=== PATIENT | female | born 1940 | race Caucasian/White ===

== ENCOUNTER 2016-09-24 21:15 | Inpatient (IN) | payer MEDICARE ==
[2016-09-24] MEDS ORDERED: Diltiazem IV* 5 MG/ML 5 ML VIAL (for loading dose/IV Push) (25 MG) IV PUSH ONE (21:34)
--- NOTE | 2016-09-24 22:02 | RAD ---
INDICATION: Chest pain COMPARISON: March 29, 2016 TECHNIQUE: PA and lateral views were obtained. FINDINGS: Bones/Soft Tissues: There are no acute bony findings. There is prior thoracolumbar fusion Cardiomediastinal: The cardiomediastinal silhouette is normal. Lungs: There is mild left basilar scarring or atelectasis. Pleura: There are no pleural effusions. Other: None IMPRESSION: NO ACTIVE DISEASE. NO INTERVAL CHANGES.
[2016-09-24 22:24] LABS: Hematocrit 31 % (35-47); Hemoglobin 10.4 g/dl (12.0-16.0); Mean Corpuscular HGB Conc 33 g/dl (31-36); Mean Corpuscular Hemoglobin 32 pg (27-31); Mean Corpuscular Volume 95 fL (80-97); Mean Platelet Volume 8 um3 (7.4-10.4); Red Blood Count 3.29 10^6/ul (4.0-5.4); Red Cell Distribution Width 12 % (10.5-15); White Blood Count 8.4 10^3/ul (3.5-10.8)
--- NOTE | 2016-09-24 22:31 | ED ---
Timmy Heaton Adam, scribed for Adalid Gallardo MD on 09/24/16 at 2142 . Headache - HPI Summary HPI Summary: Pt is a 75 year old female presenting with a SANZ. She states that this is the 4th SANZ she has had since 19:00 tonight. The pain radiates to her chest, left arm , and mouth. She has been having SANZ's like this for 9-10 months and states that she has had multiple X-Rays and CT's done. Pt states that her BP was 185/125 at home before coming to the ED. PMHx of thyroid disease and asthma. - History Of Current Complaint Chief Complaint: EDChestPainROMI Stated Complaint: HEADACHE/CHEST PAIN/LT ARM PAIN Time Seen by Provider: 09/24/16 21:30 Hx Obtained From: Patient Onset/Duration: Sudden Onset, Started hours ago, Still Present Initially Headache Was: Moderate Currently Pain Is: Moderate Timing: Intermittent, Lasting: - Minutes Location of Headache: Diffuse Radiates to: Chest, left arm, mouth Aggravating Factor: Nothing Allevating Factors: Nothing Related History: Similar Episode/DX As: - Headaches like this for the past 9-10 months - Allergies/Home Medications Allergies/Adverse Reactions: Allergies Allergy/AdvReac Type Severity Reaction Status Date / Time Tiagabine [From Gabitril] Allergy Mild Rash Verified 06/24/16 10:35 Amitriptyline Allergy Unknown Unknown Verified 06/24/16 10:35 Reaction Details Atorvastatin [From Lipitor] Allergy Unknown Unknown Verified 06/24/16 10:35 Reaction Details Iodinated Contrast Media Allergy Unknown Unknown Verified 06/24/16 10:35 Reaction Details Misoprostol [From Cytotec] Allergy Unknown Unknown Verified 06/24/16 10:35 Reaction Details Theophylline [From Uniphyl] Allergy Unknown Unknown Verified 06/24/16 10:35 Reaction Details Tizanidine [From Zanaflex] Allergy Unknown Unknown Verified 06/24/16 10:35 Reaction Details fentanyl patch Allergy Unknown Dizziness Uncoded 06/24/16 10:35 PMH/Surg Hx/FS Hx/Imm Hx Endocrine/Hematology History: Reports: Hx Thyroid Disease Denies: Hx Diabetes Cardiovascular History: Denies: Hx Hypertension, Hx Pacemaker/ICD Respiratory History: Reports: Hx Asthma History: Denies: Hx Renal Disease Sensory History: Reports: Hx Hearing Aid - Rt EAR Psychiatric History: Denies: Hx Panic Disorder - Surgical History Surgery Procedure, Year, and Place: TSP -LSP [place] RODS/SCREWS- 2010 - - TOTAL OF 5 SURGERIES LAST ONE 2010 Xs 2. BILATERAL HIP REPLACEMENT . TARSAL TUNNEL - Lt WART -REMOVED FROM EYELID. CARPAL TUNNEL - FLORIAN Lt KNEE -2 & Rt KNEE - 3 TIMES - ARTHROSCOPIC. CHOLECYSTECTOMY TONSILECTOMY- as child. HERNIA. APPENDECTOMY. FLORIAN BREAST REDUCTION. Lt THUMB - GANGLION CYST. Rt ARM - "LUMP" REMOVED- Infectious Disease History: No Infectious Disease History: Denies: Traveled Outside the [place] in Last 30 Days - Family History Known Family History: Positive: Cardiac Disease - Father used to use NTG. 3 brothers have had CABG. 4th had CVA and [place]., Diabetes - Social History Occupation: Retired Lives: With Family - Alcohol Use: Occasionally Hx Substance Use: No Substance Use Type: Reports: None Hx Tobacco Use: No Smoking Status (MU): Never Smoked Tobacco Review of Systems Positive: Chest Pain Positive: Myalgia - Left arm, mouth Positive: Headache All Other Systems Reviewed And Are Negative: Yes Physical Exam Triage Information Reviewed: Yes Vital Signs On Initial Exam: Initial Vitals Temp Pulse Resp BP Pulse Ox 98.5 F 65 16 177/97 100 09/24/16 21:17 09/24/16 21:17 09/24/16 21:17 09/24/16 21:17 09/24/16 21:17 Vital Signs Reviewed: Yes Appearance: Positive: Well-Appearing, Pain Distress - mildly uncomfortable Skin: Positive: Warm Head/Face: Positive: Normal Head/Face Inspection Eyes: Positive: CECIL ENT: Positive: Hearing grossly normal Neck: Positive: Supple Respiratory/Lung Sounds: Positive: Clear to Auscultation, Breath Sounds Present Cardiovascular: Positive: IRR, Tachycardia Abdomen Description: Positive: Nontender, Soft Bowel Sounds: Positive: Present Musculoskeletal: Positive: Strength/ROM Intact Neurological: Positive: Sensory/Motor Intact, Alert, Oriented to Person Place, Time Psychiatric: Positive: Affect/Mood Appropriate Diagnostics - Vital Signs Vital Signs Temp Pulse Resp BP Pulse Ox 09/24/16 21:17 98.5 F 65 16 177/97 100 - Laboratory Lab Results: Lab Results 09/24/16 Range/Units 22:16 WBC 8.4 (3.5-10.8) 10^3/ul RBC 3.29 L (4.0-5.4) 10^6/ul Hgb 10.4 L (12.0-16.0) g/dl Hct 31 L (35-47) % MCV 95 (80-97) fL MCH 32 H (27-31) pg MCHC 33 (31-36) g/dl RDW 12 (10.5-15) % Plt Count 199 (150-450) 10^3/ul MPV 8 (7.4-10.4) um3 Neut % (Auto) 69.3 (38-83) % Lymph % (Auto) 23.2 L (25-47) % [place] % (Auto) 4.7 (1-9) % Eos % (Auto) 2.2 (0-6) % Baso % (Auto) 0.6 (0-2) % Absolute Neuts (auto) 5.8 (1.5-7.7) 10^3/ul Absolute Lymphs (auto) 2.0 (1.0-4.8) 10^3/ul Absolute Monos (auto) 0.4 (0-0.8) 10^3/ul Absolute Eos (auto) 0.2 (0-0.6) 10^3/ul Absolute Basos (auto) 0.1 (0-0.2) 10^3/ul Absolute Nucleated RBC 0 10^3/ul Nucleated RBC % 0 Result Diagrams: 09/24/16 22:16 09/25/16 00:21 Lab Statement: Any lab studies that have been ordered have been reviewed, and results considered in the medical decision making process. - Radiology CXR Radiology Interpretation Completed By: Radiologist - IMPRESSION: NO ACTIVE DISEASE. NO INTERVAL CHANGES. - EKG 21:23 Cardiac Rate: Tachycardia - 151 BPM EKG Rhythm: Atrial Fibrillation EKG Interpretation: Rapid A Fib - Additional Comments Diagnostic Additional Comments: Troponin I - 0.05 D-Dimer - 257 Lactic Acid - 2.2 Re-Evaluation - Re-Evaluation First Eval Change: Improved Headache Course/Dx - Diagnoses Provider Diagnoses: New onset atrial fibrillation - Physician Notifications Instructed by Provider To: Admit As Inpatient - Critical Care Time Critical Care Time: 30-74 min Discharge - Discharge Plan Condition: Fair Disposition: ADMITTED TO [facility] documentation as recorded by the Timmy schaffer Adam accurately reflects the service I personally performed and the decisions made by me, Adalid Gallardo MD.
[2016-09-24 22:40] LABS: ALT 13 U/L (7-52); Albumin 3.8 g/dL (3.2-5.2); Alkaline Phosphatase 91 U/L (34-104); BUN/Creatinine Ratio 27.7 (8-20); Blood Urea Nitrogen 31 mg/dL (6-24); CO2 Carbon Dioxide 27 mmol/L (22-32); Calcium 9.6 mg/dL (8.6-10.3); Chloride 101 mmol/L (101-111); EGFR African American 60.8 (>60); EGFR Non-African American 47.3 (>60); Globulin 3.5 g/dL (2-4); Glucose 192 mg/dL (70-100); Sodium 136 mmol/L (133-145); Total Protein 7.3 g/dL (6.4-8.9)
[2016-09-24] MEDS ORDERED: Diltiazem DRIP* 100 MG/100 ML ADDV.BAG IVPB ONE (22:43)
[2016-09-24 22:44] LABS: Troponin I 0.05 ng/mL (<0.04)
[2016-09-24 22:55] LABS: TSH (Thyroid Stimulating Horm) 0.54 mcIU/mL (0.34-5.60)
[2016-09-25] MEDS ORDERED: Ondansetron INJ* 2 MG/ML VIAL IV PRN (00:19)
[2016-09-25] MEDS ORDERED: Al Hydrox/Mg Hydrox/Simet LIQ* 30 ML UDC PO PRN (00:19)
[2016-09-25] MEDS ORDERED: Acetaminophen TAB* 325 MG PO PRN (00:19)
[2016-09-25] MEDS ORDERED: Diltiazem DRIP* 100 MG/100 ML ADDV.BAG IVPB ONE (00:23)
[2016-09-25 00:56] LABS: Magnesium 1.9 mg/dL (1.9-2.7)
[2016-09-25] MEDS ORDERED: NS 0.9% 500 ML BAG* 500 ML IV ONE (01:00)
[2016-09-25] MEDS: HYDROcodone/ACETAMIN 5-325 MG* 1 TAB PO PRN ×5 (01:03→20:02)
[2016-09-25] MEDS ORDERED: Morphine INJ* 2 MG/ML 1 ML SYRINGE IV PRN (01:47)
[2016-09-25] MEDS ORDERED: HYDROmorphone* 1 MG/ML 1 ML SYR ONE ×2 (01:57→03:10)
[2016-09-25] MEDS: HYDROmorphone* 1 MG/ML 1 ML SYR IV SLOW PU PRN (03:15)
[2016-09-25] MEDS: Apixaban* 5 MG TAB PO SCH ×3 (03:31→19:57)
[2016-09-25] MEDS ORDERED: Diltiazem DRIP* 100 MG/100 ML ADDV.BAG IVPB SCH ×2 (05:00→06:25)
--- NOTE | 2016-09-25 05:23 | HP ---
HISTORY AND PHYSICAL: DATE OF ADMISSION: 09/25/16 TIME OF EVALUATION: 0000. PRIMARY CARE PHYSICIAN: Manas Villeda MD CHIEF COMPLAINT: Chest pain and headache. HISTORY OF PRESENT ILLNESS: This is a 75-year-old female with past medical history of asthma, chronic lymphedema, who has had recurring episodes of headache, chest pain, left arm pain, jaw pain for the past 10 months. The patient states she has seen several physicians including her primary, geomorphologist, neurologist, and Hematology/Oncology. She states she has had intense and a very involved workup including labs and imaging with no diagnosis. She states this started 10 months ago with a significant headache. She gets chest pain, left arm pain, and jaw pain, so bad that she has to take out her teeth. It usually last for about 10 to 15 minutes. There is no pattern to it. She could have them several times a day or go a day without them. Often, when she sits up and she massages her chest and arms, it will eventually resolve. Today, she had several episodes and they seemed to last longer and they were more intense in severity. On arrival to the emergency room , she was found to be in rapid atrial fibrillation. The patient is denying any chest pain at this time. She states she has a mild headache. She denies any fever or upper respiratory symptoms. No palpitations, no nausea, vomiting, diarrhea. She states she has dyspnea on exertion. She states she recently had a sleep study where she was diagnosed with mild obstructive sleep apnea and placed on oxygen at bedtime. She is followed by Dr. Price in [place], her geomorphologist, and she had a stress test, she states, last year. No history of any stent placement. Otherwise, review of systems is negative. In the emergency the patient had labs, imaging. She was given a diltiazem bolus of 20 mg and started on a drip of 10 mg an hour and was referred to the hospitalist service for further evaluation. PAST MEDICAL HISTORY: Constipation, asthma, restless legs syndrome, essential tremor, chronic pain, seasonal allergies, GERD, hypothyroidism, chronic lymphedema, and now being worked up for these episodes of headache, chest pain, left arm pain, and teeth pain. MEDICATIONS: 1. The patient alternates between Lasix 40 mg daily for a week with torsemide 60 mg daily for a week. 2. Potassium 20 mEq daily. 3. Levothyroxine 137 mcg daily. 4. Singulair 10 mg daily. 5. Omeprazole 40 mg p.o. b.i.d. 6. Levocetirizine 5 mg daily. 7. Hydrocodone/Tylenol 10/325 every 4 hours as needed for pain. 8. Primidone 100 mg in the evening. 9. Mirapex 2 mg in the evening. 10. Venlafaxine 37.5 mg 3 tabs daily in the evening. 11. Multivitamin, calcium, magnesium daily. 12. Vitamin B12 daily. 13. One senna p.o. b.i.d. 14. Vitamin D in the morning. 15. Colace 1 tab p.o. b.i.d. 16. Advair 500/50 one puff b.i.d. 17. Nasal spray b.i.d. 18. Albuterol inhaler nebulizer as needed for shortness of breath. ALLERGIES: TIAGABINE, AMITRIPTYLINE, ATORVASTATIN, CONTRAST, MISOPROSTOL, THEOPHYLLINE, TIZANIDINE, and FENTANYL PATCH. FAMILY HISTORY: Mother at age 84 from heart failure. Father at age 86 from coronary disease. Three of her four brothers from coronary disease bypass in their 60s and 70s; however, one brother had bypass and is alive. SOCIAL HISTORY: The patient lives at home with her , Herminio, who is the healthcare proxy. No history of tobacco use. Rare alcohol use. No illicit drug use. CODE STATUS: Full code. REVIEW OF SYSTEMS: As mentioned in the HPI. PHYSICAL EXAMINATION GENERAL: No acute distress. Resting comfortably with her at the bedside. VITAL SIGNS: Temp 98.5, pulse rate 122, respiratory rate 12, oxygen saturation 95% on room air, blood pressure 148/73. HEENT: Pupils equal and reactive, anicteric. Head: Normocephalic. Oropharynx : Mucous membranes are moist. No erythema or exudate. NECK: Supple. No lymphadenopathy. RESPIRATORY: Diminished breath sounds. No wheezes, rhonchi, or rales. CARDIAC: Rapid, irregularly irregular rate and rhythm. ABDOMEN: Soft, nontender, nondistended. EXTREMITIES: +1 pretibial pitting edema. +1 DPs. NEUROLOGIC: Alert and oriented x3. No focal neurologic deficits. DIAGNOSTIC STUDIES/LAB DATA: White count 8.4, hemoglobin 10.4, hematocrit 31, platelets 199. INR is 0.95. Sodium 136, potassium pending, chloride 101, bicarb 27, BUN 31, creatinine 1.12, glucose 192, lactic acid 2.2. Troponin 0.05. TSH 0.54. Chest x-ray shows no active disease. No interval changes. EKG shows rapid atrial fibrillation with rate of 151. ASSESSMENT AND PLAN: This is a 75-year-old female with past medical history of obstructive sleep apnea, asthma, chronic lymphedema, who presents to the emergency room with recurrent episodes of headache, chest pain, left arm pain with worsening in her symptoms this evening, found to be in atrial fibrillation. Rapid atrial fibrillation. Assessment: Unclear of the etiology behind her rapid atrial fibrillation. She does have obstructive sleep apnea, but she is on oxygen at bedtime. She is morbidly obese. It is unclear if these symptomatic episodes are related to rapid atrial fibrillation, it is possible though she has had an extensive workup with no known etiology. She said she had a chest stress last year that was unremarkable. She has no chest pain at this time. Plan: We will admit her to the ICU, increase her diltiazem to 15 mg. Follow up on her potassium, magnesium. We will trend her troponins. We will keep her NPO for possible cardioversion. Replete electrolytes if they are abnormal. We will start her on Eliquis for now 5 mg p.o. b.i.d. and follow up with Cardiology in the morning. CHRONIC MEDICAL PROBLEMS: 1. Chronic lymphedema. In the setting of NPO, we will hold her Lasix and torsemide at this time. 2. Hypothyroidism. Resume her Synthroid of 137 mcg. 3. Asthma. Continue her Singulair, Advair, and albuterol as needed. 4. GERD. Continue omeprazole p.o. b.i.d. 5. Chronic pain. Continue her [place] as needed. 6. Tremors and and restless legs. With her elevated creatinine, I would hold the primidone as it does interact with Eliquis and decrease her Mirapex to 1 mg. 7. Elevated creatinine, is 1.12. Appears it has been elevated since 2015. Possibly CKD, unclear of the etiology behind her CKD. We will get a urine and FENa at this time. 8. FEN. We will keep her NPO for now. 9. DVT. The patient was started on Eliquis. 10. Code status. Full code. PATIENT TIME: Greater than 60 minutes was spent during the history and physical , more than half the time was spent in direct patient contact. CC: Manas Villeda MD* [id number]/CPS #: [id number] MTDD
[2016-09-25] MEDS: Levothyroxine TAB* 137 MCG TAB PO SCH (05:37)
[2016-09-25 06:03] LABS: Hematocrit 28 % (35-47); Hemoglobin 9.4 g/dl (12.0-16.0); Mean Corpuscular HGB Conc 33 g/dl (31-36); Mean Corpuscular Hemoglobin 32 pg (27-31); Mean Corpuscular Volume 95 fL (80-97); Mean Platelet Volume 8 um3 (7.4-10.4); Red Blood Count 2.98 10^6/ul (4.0-5.4); Red Cell Distribution Width 12 % (10.5-15)
[2016-09-25 06:18] LABS: BUN/Creatinine Ratio 29.4 (8-20); EGFR African American 62.8 (>60); EGFR Non-African American 48.8 (>60); Potassium 3.9 mmol/L (3.5-5.0)
[2016-09-25 06:22] LABS: Troponin I 0.58 ng/mL (<0.04)
[2016-09-25] MEDS ORDERED: Pramipexole TAB* 0.5 MG PO SCH ×2 (09:00)
[2016-09-25] MEDS: Omeprazole CAP* 20 MG PO SCH ×2 (09:44→19:57)
[2016-09-25] MEDS: Docusate CAP* 100 MG PO SCH ×2 (09:44→19:57)
[2016-09-25] MEDS: Senna TAB PO SCH ×2 (09:44→19:59)
[2016-09-25] MEDS: Mometasone/Formoter 200/5 MDI INH SCH ×2 (09:50→20:07)
[2016-09-25 10:11] LABS: HDL Cholesterol 53.6 mg/dL
[2016-09-25] MEDS ORDERED: Midazolam* 1 MG/ML 5 ML VIAL (5 MG) ONE (11:09)
[2016-09-25] MEDS ORDERED: fentaNYL* 50 MCG/ML 2 ML VIAL (100 MCG VIAL) ONE (11:09)
[2016-09-25] MEDS ORDERED: Naloxone* 0.4 MG/ML 1 ML VIAL ONE (11:09)
[2016-09-25] MEDS ORDERED: Flumazenil* 0.1 MG/ML 5 ML MDV ONE (11:09)
[2016-09-25] MEDS ORDERED: Lidocaine 2% VISCOUS* 15 ML UDC ONE (11:09)
[2016-09-25] MEDS ORDERED: Ondansetron INJ* 2 MG/ML VIAL ONE (11:33)
[2016-09-25] MEDS ORDERED: Diltiazem CD CAP* 120 MG PO SCH (14:00)
--- NOTE | 2016-09-25 14:26 | TEE ---
Patient: [facility] Rec#: [id number] : 1940 Date: 09/25/2016 Age: 75y Height: 155 cm / 61.0 in Weight: 126 kg / 277.7 lbs Sex: F BSA: 2.17 Room#: 434 Type: Inpatient Referring: Amber Kaminski MD Performing: Amber Kaminski MD Reading: Amber Kaminski MD Senior Science Consultant: Heike Lua RDCS Nurse: Lashawn Colon RN CC: Manas Villeda MD Transesophageal Echocardiogram Indication: A-fib BP: 124/44 HR: 70 Rhythm: A-Fib Findings History: Asthma,chronic lymphedema,CP,GERD,hypothyroidism,VALENTIN with nocturnal oxygen. Technical Comments: The study quality is good. Left Ventricle: The left ventricular chamber size is normal. Global left ventricular wall motion and contractility are within normal limits. The estimated ejection fraction is 50-55%. The assessment of diastolic function is non-diagnostic. Left Atrium: The left atrial chamber size is normal. There is no thrombus visualized in the left atrial appendage. Right Ventricle: The right ventricular cavity size is normal. The right ventricular global systolic function is normal. Right Atrium: The right atrial cavity size is normal. The interatrial septum appears lipomatous. There is no patent foramen ovale visualized. A patent foramen ovale is not demonstrated with color Doppler and agitated contrast. Aortic Valve: The aortic valve is trileaflet. Mild aortic cusp sclerosis is present. There is no evidence of aortic regurgitation. There is no evidence of aortic stenosis. Mitral Valve: The mitral valve leaflets are mildly thickened. There is mild mitral regurgitation. There is no evidence of mitral stenosis. Tricuspid Valve: The tricuspid valve leaflets are normal. There is trace to mild tricuspid regurgitation. There is no tricuspid stenosis. Pulmonic Valve: The pulmonic valve appears normal. There is no evidence of pulmonic regurgitation. There is no pulmonic stenosis. Pericardium: The pericardium appears normal. Aorta: There is no dilatation of the ascending aorta. There is no dilation of the aortic root. There is plaque visualized in the descending aorta. This was noted in the descending thoracic aorta. Pulmonary Artery: The main pulmonary artery appears normal. Venous: The bicaval view was obtained and appears normal. The pulmonary veins appear normal in size. 3 out of 4 seen. The flow pattern of the pulmonary veins appear normal. DANIEL Procedures: History and physical as well as labs were reviewed. The patient was in a fasting state. Risks and benefits of the procedure, including alternatives, were discussed and written informed consent was obtained. The patient and/or their health care livestock sales representative expressed understanding of the procedure, risks and benefits. Baseline and continuous monitoring of blood pressure, heart rate, pulse oximetry and heart rhythm was performed throughout the procedure. The appropriate time-out procedure was performed as per [facility] protocol. The patient was placed in the left lateral decubitus position. The patient's posterior pharynx was anesthetized with 20ml of 2% viscous lidocaine. The patient received IV Midazolam with a total dose of The patient received IV Fentanyl with a total dose of An oral bite block was inserted for protection of oral dentition. The multiplane transesophageal echocardiogram probe was inserted through the posterior oropharynx and advanced into the esophagus without difficulty. Multiple 2D images were obtained of the heart and its related structures. Color flow Doppler was used for evaluation. Spectral Doppler was also used. The atrial septum was interrogated with color flow Doppler. At the conclusion of the procedure the probe was removed with continuous suction without complications. The patient tolerated the procedure with no apparent complications. Conclusions Global left ventricular wall motion and contractility are within normal limits. The estimated ejection fraction is 50-55%. The right ventricular global systolic function is normal. The aortic valve is trileaflet with mild sclerosis. The mitral valve leaflets are mildly thickened with mild mitral regurgitation. There is no thrombus visualized in the left atrial appendage. There is no patent foramen ovale visualized. There is plaque visualized in the descending aorta. No prior study available to compare. Measurements Name Value Normal Range Aortic Annulus 2.3 cm (1.4 - 2.6) Ao root diameter (2D) 3.3 cm (2.1 - 3.5) Ascending Ao 3.2 cm (2.1 - 3.4) Name Value Normal Range MV E-wave Vmax 0.7 m/sec - MV deceleration time 246 msec -
--- NOTE | 2016-09-25 16:02 | PN ---
Subjective Date of Service: 09/25/16 Interval History: HOSPITALIST PROGRESS NOTE Patient seen and examined at bedside. She feels better now after cardioversion. Denies CP, palpitations, or dyspnea. Family History: Unchanged from Admission Social History: Unchanged from Admission Past Medical History: Unchanged from Admission Objective Active Medications: Acetaminophen (Tylenol Tab*) 650 mg PO Q4H PRN PRN Reason: FEVER/PAIN Hydrocodone Bitart/Acetaminophen ([place] 5-325 Tab*) 2 tab PO Q4H PRN PRN Reason: PAIN Last Admin: 09/25/16 15:18 Dose: 2 tab Al Hydrox/Mg Hydrox/Simethicone (Maalox Plus*) 30 ml PO Q6H PRN PRN Reason: INDIGESTION Albuterol (Ventolin Hfa Inhaler*) 2 puff INH Q4H PRN PRN Reason: SOB/WHEEZING Apixaban (Eliquis*) 5 mg PO BID [facility] Last Admin: 09/25/16 09:44 Dose: 5 mg Atorvastatin Calcium (Lipitor*) 40 mg PO 2100 [facility] Diltiazem HCl (Cardizem Cd Cap*) 120 mg PO DAILY [facility] Stop: 09/25/16 23:59 Last Admin: 09/25/16 14:27 Dose: 120 mg Docusate Sodium (Colace Cap*) 100 mg PO BID [facility] Last Admin: 09/25/16 09:44 Dose: 100 mg Hydromorphone HCl (Dilaudid Iv*) 0.5 mg IV SLOW PU Q4H PRN PRN Reason: PAIN Last Admin: 09/25/16 03:15 Dose: 0.5 mg Levothyroxine Sodium (Synthroid Tab*) 137 mcg PO DAILY@0600 [facility] Last Admin: 09/25/16 05:37 Dose: 137 mcg Mometasone Furoate/Formoterol Fumar (Dulera 200/5 Mdi*) 1 puff INH BID [facility] Last Admin: 09/25/16 09:50 Dose: 1 puff Montelukast Sodium (Singulair Tab*) 10 mg PO BEDTIME [facility] Omeprazole (Prilosec Cap*) 40 mg PO BID [facility] Last Admin: 09/25/16 09:44 Dose: 40 mg Ondansetron HCl (Zofran Inj*) 4 mg IV Q4H PRN PRN Reason: NAUSEA/VOMITING Pramipexole Dihydrochloride (Mirapex Tab*) 1 mg PO BEDTIME [facility] Senna (Senokot Tab*) 1 tab PO BID [facility] Last Admin: 09/25/16 09:44 Dose: 1 tab Venlafaxine HCl (Effexor Xr Cap*) 112.5 mg PO 2100 [facility] Vital Signs 09/25/16 09/25/16 09/25/16 13:26 14:00 15:00 Temperature 97.3 F Pulse Rate 77 Respiratory 16 17 21 Rate Blood Pressure 153/57 151/85 127/63 (mmHg) O2 Sat by Pulse 95 Oximetry Oxygen Devices in Use Now: None Appearance: Pleasant elderly lady lying in bed in NAD. Eyes: No Scleral Icterus Ears/Nose/Mouth/Throat: Mucous Membranes Moist Neck: Trachea Midline Respiratory: Symmetrical Chest Expansion and Respiratory Effort, Clear to Auscultation Cardiovascular: RRR - Normal S1 and S2 Abdominal: NL Sounds; No Tenderness; No Distention Neurological: Alert and Oriented x 3, NL Muscle Strength and Tone Lines/Tubes/Other Access: Clean, Dry and Intact Peripheral IV Nutrition: Taking PO's Result Diagrams: 09/25/16 05:41 09/25/16 05:41 Assess/Plan/Problems-Billing Assessment: Mrs. Martin is a 75yo F with PMH of chronic constipation, asthma, restless leg syndrome, essential tremor, chronic pain, GERD, hypothyroidism, chronic lymphedema, who presented to ED with c/o CP, found to be in Afib. - Patient Problems (1) Atrial fibrillation Comment: - S/p cardioversion. - D/w Dr. Kaminski - recommended Cardizem CD and Eliquis. - Continue to monitor on Telemetry. (2) Chest pain Comment: - Troponin elevation likely secondary to Afib, but patient has risk factors for CAD. - Cardiology recommended stress test. (3) Obstructive sleep apnea Comment: - Patient wears supplemental O2 overnight, but no CPAP. - Check overnight oximetry on her usual amount of O2, as hypoxia may be driving her episode of Afib. (4) HLD (hyperlipidemia) Comment: - LDL>170 - states she cannot tolerate statins. (5) Hypothyroidism Comment: - TSH 0.54 - continue Levothyroxine. (6) DVT prophylaxis Comment: - Eliquis. (7) Full code status Status and Disposition: Inpatient.
[2016-09-25] MEDS ORDERED: Potassium Chlor TAB* 20 MEQ TAB.ER PO ONE (18:24)
[2016-09-25] MEDS ORDERED: Magnesium Sulfate 2 GM IV* 2 GM/50 ML BAG IVPB ONE (18:24)
--- NOTE | 2016-09-25 19:11 | PN ---
Hospitalist Progress Note HOSPITALIST ADDENDUM Around 6PM patient complained of jaw and left shoulder pain with headache. Telemetry showed irregular rhythm and EKG confirms A. flutter. D/w Dr. Kaminski - pili [place].
[2016-09-25] MEDS: Dronedarone TAB* 400 MG PO SCH (19:26)
[2016-09-25] MEDS: Montelukast Sodium TAB* 10 MG PO SCH (19:57)
[2016-09-25] MEDS: Pramipexole TAB* 0.5 MG PO SCH (19:58)
[2016-09-25] MEDS: Venlafaxine EXT RELEASE CAP* 37.5 MG PO SCH (20:00)
--- NOTE | 2016-09-25 20:03 | CONS ---
CARDIOLOGY CONSULTATION: DATE OF CONSULT: 09/25/16 REASON FOR CONSULT: Atrial fibrillation, chest pain, and elevated troponins. CHIEF COMPLAINT: Headaches, chest and shoulder pain. HISTORY OF PRESENT ILLNESS: Ms. Martin is a 75-year-old woman with an approximately 10-month history of symptoms that brought her to the ER yesterday. She will intermittently develop headaches, chest pain that radiates to the left shoulder and upper arm and pain in the upper and lower jaw that is bad enough she has to take out her dentures. This will happen intermittently with exertion such as walking and it wakes her up from sleep. Ms. Diane tells me she underwent an overnight oximetry and desaturates at night, so uses oxygen, also underwent a sleep study in [place] that showed only mild sleep apnea. Yesterday, the patient was in her usual state of health and she developed three headaches in a row, just as one was going to clear would recur, so she decided to present to the emergency room. Yesterday, symptoms also included the upper substernal chest discomfort radiating to the left shoulder and jaw. She denied any associated dyspnea with the symptoms and no diaphoresis. She denied any recent infectious symptoms. No hematuria, dysuria, coughing, fevers, or chills. She drinks only rarely and has had no recent alcohol. In the emergency room, the patient was found to be in atrial fibrillation with a rapid ventricular rate. She was treated with rate control and anticoagulation and this clinically improved. PAST MEDICAL HISTORY: The patient has a past medical history of hypothyroid disease, asthma, chronic pain, restless legs, seasonal allergies, chronic constipation, reflux, lymphedema, morbid obesity, mild sleep apnea and hypoxia at night, anemia (evaluated by Dr. Romero) CURRENT INPATIENT MEDICATIONS: Include: 1. [place] p.r.n. pain. 2. Maalox p.r.n. 3. Ventolin inhaler 2 puffs q.4 hours p.r.n. 4. Eliquis 5 mg b.i.d. 5. Cardizem drip. 6. Colace. 7. Dilaudid IV p.r.n. pain. 8. Synthroid 137 mcg a day. 9. Dulera 200/5 MDI 1 puff b.i.d. 10. Singulair 10 mg q.h.s. 11. Prilosec 40 mg a day. 12. Zofran p.r.n. 13. Mirapex 1 mg a day. 14. Senokot 1 tab b.i.d. 15. Effexor 112.5 mg q. evening. ALLERGIES: Medication allergies include TIAGABINE, AMITRIPTYLINE, ATORVASTATIN , IV CONTRAST, MISOPROSTOL, THEOPHYLLINE, TIZANIDINE, and FENTANYL (PATCH). FAMILY HISTORY: Strongly positive for early atherosclerotic heart disease and vascular disease. Three of her four brothers have coronary disease and bypass. She had a brother with a stroke and her father had heart disease and at age 86. Her mother at age 84 with congestive heart failure. 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 No smoking history. Rare alcohol intake. REVIEW OF SYSTEMS: See history of present illness. No recent fevers, chills, sweats. No change in appetite, bowel, or bladder habits. No awareness of palpitations or racing of the heart. PHYSICAL EXAM: The patient is 5 feet 1 inch and weighs 278 pounds with a BMI of 52.5. Vitals on admission, blood pressure 177/97, pulse is 144 to 152 (AFib) . Currently, the patient's temperature is 97.9, ventricular rate is 73 beats a minute, respiratory rate is 16, oxygen saturation 93% on room air, and blood pressure 146/66. General Appearance: Morbidly obese older woman lying at 30 degrees, appears comfortable and in no acute distress. Psychologically, calm, cooperative, and pleasant. Neurologically, awake, alert, and oriented to person , place, and time. Cranial nerves II through XII intact. Grossly normal sensory and motor function in the upper and lower extremities on that exam, gait not checked. Skin: Warm, dry. No appreciable cyanosis or rashes. HEENT: Pupils were equal and round. Mucous membranes moist. Oral mucosa unremarkable. Neck is thick from obesity without obvious lymphadenopathy or thyromegaly. Breath sounds distant clear. No wheezing, rales, or rhonchi. Coronary: Also distant S1, S2. Irregularly irregular without murmurs or rubs heard. Abdomen: No epigastric discomfort. Very overweight, but soft, nontender, and active bowel sounds. Lower extremities are thickened, but no pitting edema. I was unable to feel distal pulses. Her legs were warm. DIAGNOSTIC STUDIES/LAB DATA: White count 8.0, hemoglobin 9.4, hematocrit 28 ( baseline hematocrit 04/02/16 was 32), and platelets 179. INR 0.99, D-dimer 257. Sodium 139, potassium 3.9, chloride 104, bicarb 29, BUN 32, creatinine 1.09 , glucose 105, lactic acid September 24 was 2.2. AST 19, ALT 13. Troponin #1 0.05 , troponin #2 0.58. TSH is 0.54. No urine available. Lipids from 2012 showed total cholesterol 197, LDL cholesterol 109, HDL cholesterol 62, and triglycerides 128. Studies: The patient's 12-lead ECG on shows atrial fibrillation with a rapid ventricular rate of 150 beats a minute, QRS axis +60, normal intraventricular conduction times. She has ST depression 2 to 3 mm downsloping in the lateral leads, V5 and V6 upsloping in lateral leads 1 and aVL and appears close to horizontal V4. A 12-lead ECG this morning with diltiazem drip confirmed she is in atrial fibrillation with a ventricular rate of 83 beats a minute. QRS axis +30, inferior Q's, and resolution of ST changes. Chest x-ray showed no active disease. Sleep study, 07/03/16: Mild sleep apnea AHI 5.6, navya oxygen 84%. Carotid Doppler study, 07/02/16: Showed no evidence of significant stenosis. Brain MRI, 05/10/16: Elevated T2/FLAIR signal seen in association with chronic small vessel ischemia and is sequelae of previous infection or inflammation, demyelinating disease also in the differential. Brain CT from 04/01/16: Chronic small vessel disease, no acute pathology. Head MR angiogram: No aneurysmal vascular malformation, occlusion, or stenosis. Pulmonary function test on 07/04/16: Showed diffusion capacity 11.4, 52% of predicated; FEV1 1.63, 68% of predicted; FEV1 1.23, 69% of predicated (values post bronchodilator) consistent with mild obstructive ventilatory defect, evidence of air trapping, and no response to bronchodilators. It is reported that the diffusion capacity is within normal limits. On EKG to say compared with the last ECG in our system of 04/26/08, the atrial fibrillation and ST changes are new. SUMMARY: In summary, Roxi Martin is a 75-year-old woman with a 10-month history of headaches, jaw pain, chest pain, and shoulder pain radiating to the arm, which occurred yesterday and the patient was found in atrial fibrillation with a rapid ventricular rate and additionally she had some ST changes in the lateral leads and a mild elevation in troponin. The patient has atherosclerotic risk of a strong family history of early atherosclerotic heart disease, morbid obesity, mild dyslipidemia, hypertension, possible sleep apnea, and a past medical history of chronic anemia of uncertain etiology, and some mild renal insufficiency (baseline creatinine 04/11/16 was 1.26). For the atrial fibrillation of uncertain duration, I have recommended DANIEL- guided cardioversion and I agree with rate control for now and Eliquis. We will decide on rate-lowering agents first and/or antiarrhythmics postcardioversion. The patient's elevated troponins as a differential of atrial fibrillation induced, coronary ischemic induced, and with her elevated D-dimer and obesity, differential is pulmonary embolus as well. According to the patient, she has had negative stress test with Dr. Price multiple times in the past and with her high pretest probability, she may benefit from a cardiac catheterization as opposed to another stress test especially as her body habitus makes accurate interpretation of stress test harder saying this with her CONTRAST DYE allergy, anemia, and mild renal insufficiency, her risk of cardiac catheterization is higher as well. The patient's anemia has potential for complicating treatment for atrial fibrillation with anticoagulants and treatment with interventions and I recommend getting Dr. Romero's old records, according to the patient she has had 2 bone marrow biopsies in the past. We will update her lipids for full risk factor modification. Consideration for V/Q scan to evaluate possible pulmonary embolus, although it could be considered, although I defer to internal medicine/hospitalist for expertise in this area. As these episodes happen on exertion, but also with sleep, it raises the possibility that her sleep apnea is more significant than it was on a report in June. Additional recommendations will be made in this patient following the results of her transesophageal echo, results of cardioversion, and additional workup. CC: Dr. Manas Villeda, Hospitalist; Joy Wheatley* [id number]/[facility] #: [id number] [facility]
[2016-09-25] MEDS ORDERED: Atorvastatin* 40 MG TAB PO SCH (21:00)
[2016-09-25] MEDS ORDERED: CMCS: Simvastatin TAB(NF) 20 MG TAB PO SCH (21:00)
[2016-09-25] MEDS ORDERED: Venlafaxine EXT RELEASE CAP* 37.5 MG PO SCH (21:00)
--- NOTE | 2016-09-25 22:07 | CONS ---
INTERVENTIONAL CARDIOLOGY CONSULT NOTE: DATE OF CONSULT: 09/25/16 PRIMARY CARE PHYSICIAN: Dr. Villeda. RACE CAR DRIVER: Dr. Jimmie Price in [place]. HISTORY OF PRESENT ILLNESS: A 75-year-old woman with recurrent chest pain syndrome. I was asked for an interventional opinion. She is a good historian. We have some records from Dr. Price, which indicate a negative nuclear stress test in 2013 with a very small lateral reversible defect, which was thought to be due to attenuation. She had normal LV function, in 2014, she had a small inferior wall reversible defect. She tells me their impression then was that she had chest discomfort from fibromyalgia and possibly from arthritis. For the past 10 months or so, she has had a different symptom complex where headache is very prominent. She initially had only effort-related central chest discomfort associated with some intense aching of her gums, and of the left shoulder area and left upper extremity with some tingling into her fingers. Also, associated with severe headache with walking from the car to the home, which is about 30 feet. Initially, this was only effort related, resolved with rest. Over the ensuing months, this is now happening at random, including at rest and at night. The episodes are usually less than 10 to 15 minutes in duration, resolve spontaneously, she has never used nitroglycerin. They will awaken her from sleep and she will sit up with subsequent resolution. She can go for a week or two at a time without having any discomfort including walking from the car to the house and then she will have clusters at rest as well as with relatively minor physical exertion. She came to the hospital because she had 3 episodes in a row without complete resolution in between for a total duration of about 2 hours, was found to be in rapid atrial fibrillation in the ER, subsequently has converted to sinus rhythm. Her troponins subsequently have increased to 0.05, 0.58. Currently, she is pain free. They relate also fatigability for the past several months, even though she is now on oxygen for, according to her, mild obstructive sleep apnea. She also had several relative concerns with respect to coronary angiography namely CONTRAST ALLERGY, normochromic anemia of unknown etiology, and CKD, stage 3 since at least 2014. She is also morbidly obese. PAST MEDICAL HISTORY: Hypertension, anemia, asthma, lymphedema, history consistent with esophageal spasm with dysphagia, fibromyalgia, obesity, apparently asymptomatic paroxysmal atrial fibrillation. MEDICATIONS: Prehospital medication list is lengthy, see H and P. ALLERGIES: Numerous including CONTRAST. FAMILY HISTORY: Positive for heart disease. SOCIAL HISTORY: She is a nonsmoker. REVIEW OF SYSTEMS: Noncontributory except as in H and P. PHYSICAL EXAM: She is articulate, pain free, overweight. Her blood pressure is 127/63, heart rate in the 80s with frequent PACs on telemetry. Her lungs are without rales or wheezes. JVP is not visibly elevated. Carotids are normal. HEENT is unremarkable. Cardiac exam is notable for occasional ectopy, no gallop, no murmur, no rub. She has palpable radial pulses, no overt edema. DIAGNOSTIC STUDIES/LAB DATA: EKG: Post conversion shows normal sinus with PACs and nonspecific T-wave changes. Lipids are very high with cholesterol of 249, triglycerides 105, LDL 174, HDL 53.6. Troponins as above. BUN is 31, creatinine is 1.12 with a GFR of 47.3. Her lactate was 2.2. Chest x-ray was read as showing no acute disease. IMPRESSION: Chest pain. She has chest pain consistent with atypical angina in that it is sporadic, both at rest and with exertion, atypical in that she always has a severe headache with it. Her symptoms are new since her previous nuclear stress test. She also has a history of fibromyalgia as well as probably esophageal spasm, she has fairly broad differential diagnosis for her chest pain. She has a small troponin rise in the setting of rapid atrial fibrillation, which may be causative. I discussed this all with her and her , we discussed the options of coronary angiography versus repeat nuclear stress imaging for risk stratification and the pros and cons, she prefers another nuclear study, which will be arranged. She has been started on Lipitor , Eliquis. Her regimen will be adjusted as needed based on the stress imaging results. Thanks for the consultation, she will be followed by our general cardiology group. CC: Dr. Villeda; Joy Wheatley * [id number]/[facility] #: [id number] [facility] HOSPITALIvanna
--- NOTE | 2016-09-26 00:20 | CARD ---
CC: Joy Wheatley; Hospitalist Service PROCEDURE REPORT: DATE OF PROCEDURE: 09/25/16 SURGEON: Amber Kaminski MD DIAGNOSIS: Atrial fibrillation. PROCEDURE: Electrical cardioversion. DESCRIPTION OF PROCEDURE: The indications, risks, and benefits of the procedure had been discussed with the patient. She was amenable to proceeding. A time-out procedure was called for both transes ophageal echo and for electrical cardioversion. The transesophageal echo is documented separately, but no thrombus was seen in the left atrial appendage. The patient was sedated throughout both procedures with a total of 10 mg of Versed and 50 mcg of fen tanyl. AP patches were applied to the chest wall and 200 joules was delivered synchronously with echevarria ccessful cardioversion from atrial fibrillation to normal sinus rhythm. The patient was hemodynamically stable throughout the procedure and during the recovery period and t here were no complications. CONCLUSION: Successful cardioversion from atrial fibrillation to normal sinus rhythm. [id number]/[facility] #: [id number]
[2016-09-26] MEDS: HYDROcodone/ACETAMIN 5-325 MG* 1 TAB PO PRN ×5 (00:57→20:46)
[2016-09-26] MEDS: Levothyroxine TAB* 137 MCG TAB PO SCH (04:54)
[2016-09-26] MEDS: Dronedarone TAB* 400 MG PO SCH ×2 (05:00→17:10)
[2016-09-26] MEDS: Mometasone/Formoter 200/5 MDI INH SCH ×2 (08:29→21:53)
[2016-09-26] MEDS: Apixaban* 5 MG TAB PO SCH ×2 (08:49→20:47)
[2016-09-26] MEDS: Senna TAB PO SCH ×2 (08:49→20:47)
[2016-09-26] MEDS: Docusate CAP* 100 MG PO SCH ×2 (08:49→20:47)
[2016-09-26] MEDS: Omeprazole CAP* 20 MG PO SCH ×2 (08:49→20:47)
[2016-09-26] MEDS ORDERED: Regadenoson* 0.4 MG/5 ML SYRINGE ONE (09:17)
[2016-09-26] MEDS ORDERED: Aminophylline IV* 25 MG/ML 10 ML VIAL ONE (10:12)
[2016-09-26] MEDS ORDERED: Metoprolol Tartrate IV* 1 MG/ML 5 ML VIAL ONE (10:22)
[2016-09-26 11:53] LABS: Iron 78 ug/dL (50-212); Total Iron Binding Capacity 255 mcg/dL (250-450); Transferrin 182 mg/dL (203-362)
[2016-09-26 12:19] LABS: Folate > 20.00 ng/mL (>3.99)
[2016-09-26 12:20] LABS: Troponin I 0.13 ng/mL (<0.04); Vitamin B12 459 pg/mL (180-914)
--- NOTE | 2016-09-26 15:11 | PN ---
Subjective Date of Service: 09/26/16 Interval History: HOSPITALIST PROGRESS NOTE Patient seen and examined at bedside. She feels better this AM. Jaw discomfort and headache are resolved and she's back in NSR. Family History: Unchanged from Admission Social History: Unchanged from Admission Past Medical History: Unchanged from Admission Objective Active Medications: Acetaminophen (Tylenol Tab*) 650 mg PO Q4H PRN PRN Reason: FEVER/PAIN Hydrocodone Bitart/Acetaminophen ([place] 5-325 Tab*) 2 tab PO Q4H PRN PRN Reason: PAIN Last Admin: 09/26/16 14:47 Dose: 2 tab Al Hydrox/Mg Hydrox/Simethicone (Maalox Plus*) 30 ml PO Q6H PRN PRN Reason: INDIGESTION Albuterol (Ventolin Hfa Inhaler*) 2 puff INH Q4H PRN PRN Reason: SOB/WHEEZING Apixaban (Eliquis*) 5 mg PO BID [facility] Last Admin: 09/26/16 08:49 Dose: 5 mg Docusate Sodium (Colace Cap*) 100 mg PO BID [facility] Last Admin: 09/26/16 08:49 Dose: 100 mg Dronedarone (Multaq Tab*) 400 mg PO Q12H [facility] Last Admin: 09/26/16 05:00 Dose: 400 mg Hydromorphone HCl (Dilaudid Iv*) 0.5 mg IV SLOW PU Q4H PRN PRN Reason: PAIN Last Admin: 09/25/16 03:15 Dose: 0.5 mg Levothyroxine Sodium (Synthroid Tab*) 137 mcg PO DAILY@0600 [facility] Last Admin: 09/26/16 04:54 Dose: 137 mcg Mometasone Furoate/Formoterol Fumar (Dulera 200/5 Mdi*) 1 puff INH BID [facility] Last Admin: 09/26/16 08:29 Dose: 1 puff Montelukast Sodium (Singulair Tab*) 10 mg PO BEDTIME [facility] Last Admin: 09/25/16 19:57 Dose: 10 mg Omeprazole (Prilosec Cap*) 40 mg PO BID [facility] Last Admin: 09/26/16 08:49 Dose: 40 mg Ondansetron HCl (Zofran Inj*) 4 mg IV Q4H PRN PRN Reason: NAUSEA/VOMITING Pramipexole Dihydrochloride (Mirapex Tab*) 1 mg PO BEDTIME [facility] Last Admin: 09/25/16 19:58 Dose: 1 mg Senna (Senokot Tab*) 1 tab PO BID [facility] Last Admin: 09/26/16 08:49 Dose: 1 tab Venlafaxine HCl (Effexor Xr Cap*) 112.5 mg PO 2100 [facility] Last Admin: 09/25/16 20:00 Dose: 112.5 mg Vital Signs 09/26/16 09/26/16 09/26/16 11:18 12:00 12:08 Temperature 97.9 F Pulse Rate 67 Respiratory 19 11 18 Rate Blood Pressure 125/57 (mmHg) O2 Sat by Pulse 93 Oximetry Oxygen Devices in Use Now: None Appearance: Obese elderly lady lying in bed in NAD. Eyes: No Scleral Icterus Ears/Nose/Mouth/Throat: Mucous Membranes Moist Neck: Trachea Midline Respiratory: Symmetrical Chest Expansion and Respiratory Effort, Clear to Auscultation Cardiovascular: RRR - Normal S1 and S2 Abdominal: NL Sounds; No Tenderness; No Distention Neurological: Alert and Oriented x 3, NL Muscle Strength and Tone Lines/Tubes/Other Access: Clean, Dry and Intact Peripheral IV Nutrition: Taking PO's Result Diagrams: 09/25/16 05:41 09/25/16 05:41 Assess/Plan/Problems-Billing Assessment: Mrs. Martin is a 75yo F with PMH of chronic constipation, asthma, restless leg syndrome, essential tremor, chronic pain, GERD, hypothyroidism, chronic lymphedema, who presented to ED with c/o CP, found to be in Afib. - Patient Problems (1) Atrial fibrillation Comment: - S/p cardioversion 09/25/16 - flipped in to A flutter last night with symptoms, now back in sinus with Multaq. - Continue Eliquis. - Continue to monitor on Telemetry. (2) Chest pain Comment: - Troponin elevation likely secondary to Afib, but patient has risk factors for CAD. - For 2 day stress test. (3) Obstructive sleep apnea Comment: - Patient wears supplemental O2 overnight, but no CPAP. - Check overnight oximetry on her usual amount of O2, as hypoxia may be driving her episode of Afib. (4) HLD (hyperlipidemia) Comment: - LDL>170 - states she cannot tolerate statins. (5) Hypothyroidism Comment: - TSH 0.54 - continue Levothyroxine. (6) DVT prophylaxis Comment: - Eliquis. (7) Full code status Status and Disposition: Inpatient.
[2016-09-26] MEDS: HYDROmorphone* 1 MG/ML 1 ML SYR IV SLOW PU PRN (17:41)
[2016-09-26] MEDS: Montelukast Sodium TAB* 10 MG PO SCH (20:47)
[2016-09-26] MEDS: Pramipexole TAB* 0.5 MG PO SCH (20:47)
[2016-09-26] MEDS: Venlafaxine EXT RELEASE CAP* 37.5 MG PO SCH (20:47)
[2016-09-27] MEDS: HYDROcodone/ACETAMIN 5-325 MG* 1 TAB PO PRN ×6 (01:18→23:43)
[2016-09-27] MEDS: HYDROmorphone* 1 MG/ML 1 ML SYR IV SLOW PU PRN ×2 (04:38→17:15)
[2016-09-27] MEDS: Dronedarone TAB* 400 MG PO SCH ×2 (04:39→17:16)
[2016-09-27] MEDS: Levothyroxine TAB* 137 MCG TAB PO SCH (05:28)
[2016-09-27 06:21] LABS: BUN/Creatinine Ratio 21.9 (8-20); Calcium 8.5 mg/dL (8.6-10.3); EGFR African American 41.8 (>60); EGFR Non-African American 32.5 (>60); Potassium 4.9 mmol/L (3.5-5.0)
--- NOTE | 2016-09-27 08:46 | RAD ---
Edited for charges. INDICATION: Chest pain, shortness of breath. COMPARISON: None. TECHNIQUE: On September 27, 2016, 25.400 mCi of Tc-99m Myoview were administered IV. SPECT images of the heart were obtained. On September 26, 2016, under the direction of Dr. Francis, the patient was given an IV injection of a pharmacologic stress agent. Subsequently, the patient was given an IV injection of 25.730 mCi Tc-99m Myoview. SPECT images of the heart were obtained and a gated wall motion study was performed. CT for attenuation correction could not be performed due to limitation in range of motion of the arms. Obesity also limits image quality. FINDINGS: Gated wall motion images were obtained at stress and demonstrate hypokinesia at the basilar segment of the inferior wall and to a lesser extent the basilar segment of the lateral lateral wall and septum. Calculated left ventricular ejection fraction is 52 % at stress and 55 % at rest. Estimated LEFT ventricular end diastolic volume is 100 mL at stress and 119 mL at rest. TID 0.94. Small region of decreased perfusion involving the mid to basilar inferior wall at stress with at least partial reversal at rest. Small subtle region of reversible perfusion defect at the basilar segment of the lateral wall. No additional reversible or fixed myocardial perfusion defects evident. IMPRESSION: 1. The constellation of findings is concerning for foci of stress-induced ischemia involving the mid to basilar segments of the inferior wall and basilar segment of the lateral wall. 2. Despite hypokinesia as described the estimated LEFT ventricular ejection fraction is within normal limits. ASSESSMENT: Intermediate risk. Based on imaging criteria from ACC/AHA 2002 Guideline Update for the Management of Patients With Chronic Stable Angina Table 23. Noninvasive Risk Stratification. MTDD
[2016-09-27] MEDS: Mometasone/Formoter 200/5 MDI INH SCH ×2 (09:27→20:17)
[2016-09-27] MEDS: Omeprazole CAP* 20 MG PO SCH ×2 (09:33→20:44)
[2016-09-27] MEDS: Aspirin EC Low Dose* 81 MG TAB.EC PO SCH (09:34)
[2016-09-27] MEDS: Docusate CAP* 100 MG PO SCH ×2 (09:34→20:44)
[2016-09-27] MEDS: Senna TAB PO SCH ×2 (09:34→20:44)
[2016-09-27] MEDS: Apixaban* 5 MG TAB PO SCH (09:34)
[2016-09-27] MEDS ORDERED: Heparin VIAL(*) 5000 UNITS/ML VIAL (FIVE THOUSAND) IV SCH (10:00)
[2016-09-27] MEDS ORDERED: Magnesium Hydroxide LIQ* 30 ML UDC PO ONE (11:22)
[2016-09-27] MEDS: Metoprolol Tartrate TAB* 25 MG PO SCH ×2 (12:14→20:46)
[2016-09-27 12:32] LABS: Hematocrit 26 % (35-47); Hemoglobin 8.7 g/dl (12.0-16.0); Mean Corpuscular HGB Conc 34 g/dl (31-36); Mean Corpuscular Hemoglobin 32 pg (27-31); Mean Corpuscular Volume 95 fL (80-97); Mean Platelet Volume 7 um3 (7.4-10.4); Red Blood Count 2.73 10^6/ul (4.0-5.4); Red Cell Distribution Width 13 % (10.5-15); White Blood Count 6.2 10^3/ul (3.5-10.8)
--- NOTE | 2016-09-27 13:48 | PN ---
Subjective Date of Service: 09/27/16 Interval History: Pt feels well, although head another episode of SOB and headache when walking to the bathroom earlier on this aM. Family History: Unchanged from Admission Social History: Unchanged from Admission Past Medical History: Unchanged from Admission Objective Active Medications: Acetaminophen (Tylenol Tab*) 650 mg PO Q4H PRN PRN Reason: FEVER/PAIN Hydrocodone Bitart/Acetaminophen ([place] 5-325 Tab*) 2 tab PO Q4H PRN PRN Reason: PAIN Last Admin: 09/27/16 09:34 Dose: 2 tab Al Hydrox/Mg Hydrox/Simethicone (Maalox Plus*) 30 ml PO Q6H PRN PRN Reason: INDIGESTION Albuterol (Ventolin Hfa Inhaler*) 2 puff INH Q4H PRN PRN Reason: SOB/WHEEZING Aspirin (Aspirin Ec Low Dose*) 81 mg PO DAILY [facility] Last Admin: 09/27/16 09:34 Dose: 81 mg Docusate Sodium (Colace Cap*) 100 mg PO BID [facility] Last Admin: 09/27/16 09:34 Dose: 100 mg Dronedarone (Multaq Tab*) 400 mg PO 0500,1700 [facility] Last Admin: 09/27/16 04:39 Dose: 400 mg Heparin Sodium (Porcine) (Heparin Vial(*)) 0 units IV .PER PROTOCOL JASON PRN Reason: Protocol Hydromorphone HCl (Dilaudid Iv*) 0.5 mg IV SLOW PU Q4H PRN PRN Reason: PAIN Last Admin: 09/27/16 04:38 Dose: 0.5 mg Heparin Sodium/Dextrose (Heparin Drip 25,000 Units(*)) 25,000 units in 500 mls @ 0 mls/hr IVPB .PER RATE JASON; Per Protocol PRN Reason: Protocol Levothyroxine Sodium (Synthroid Tab*) 137 mcg PO DAILY@0600 [facility] Last Admin: 09/27/16 05:28 Dose: 137 mcg Metoprolol Tartrate (Lopressor Tab*) 12.5 mg PO Q12HR [facility] Last Admin: 09/27/16 12:14 Dose: 12.5 mg Mometasone Furoate/Formoterol Fumar (Dulera 200/5 Mdi*) 1 puff INH BID [facility] Last Admin: 09/27/16 09:27 Dose: 1 puff Montelukast Sodium (Singulair Tab*) 10 mg PO BEDTIME [facility] Last Admin: 09/26/16 20:47 Dose: 10 mg Omeprazole (Prilosec Cap*) 40 mg PO BID [facility] Last Admin: 09/27/16 09:33 Dose: 40 mg Ondansetron HCl (Zofran Inj*) 4 mg IV Q4H PRN PRN Reason: NAUSEA/VOMITING Pramipexole Dihydrochloride (Mirapex Tab*) 1 mg PO BEDTIME [facility] Last Admin: 09/26/16 20:47 Dose: 1 mg Senna (Senokot Tab*) 1 tab PO BID [facility] Last Admin: 09/27/16 09:34 Dose: 1 tab Venlafaxine HCl (Effexor Xr Cap*) 112.5 mg PO 2100 [facility] Last Admin: 09/26/16 20:47 Dose: 112.5 mg Vital Signs 09/26/16 09/26/16 09/26/16 14:47 15:58 17:41 Temperature 98.2 F Pulse Rate 73 Respiratory 16 16 18 Rate Blood Pressure 137/56 (mmHg) O2 Sat by Pulse 95 Oximetry 09/26/16 09/26/16 09/26/16 18:41 19:52 20:00 Temperature 98.1 F Pulse Rate 80 Respiratory 20 18 20 Rate Blood Pressure 123/55 (mmHg) O2 Sat by Pulse 94 Oximetry 09/26/16 09/26/16 09/26/16 20:46 21:53 22:46 Temperature Pulse Rate 78 Respiratory 20 16 20 Rate Blood Pressure (mmHg) O2 Sat by Pulse 98 Oximetry 09/27/16 09/27/16 09/27/16 00:34 01:18 03:18 Temperature 98.1 F Pulse Rate 70 Respiratory 20 16 16 Rate Blood Pressure 127/56 (mmHg) O2 Sat by Pulse 95 Oximetry 09/27/16 09/27/16 09/27/16 04:29 04:38 05:28 Temperature 97.7 F Pulse Rate 73 Respiratory 16 16 16 Rate Blood Pressure 127/59 (mmHg) O2 Sat by Pulse 100 Oximetry 09/27/16 09/27/16 09/27/16 05:33 07:28 09:29 Temperature Pulse Rate 72 Respiratory 16 12 15 Rate Blood Pressure (mmHg) O2 Sat by Pulse 97 Oximetry 0309/27/16 09/27/16 09:34 11:34 11:35 Temperature 98.1 F Pulse Rate 72 Respiratory 12 14 16 Rate Blood Pressure 152/74 (mmHg) O2 Sat by Pulse 97 Oximetry Oxygen Devices in Use Now: None Appearance: 75 yo , obese F in nAD, aAOx3 Eyes: No Scleral Icterus, PERRLA Ears/Nose/Mouth/Throat: NL Teeth, Lips, Gums, Mucous Membranes Moist Neck: NL Appearance and Movements; NL JVP, Trachea Midline Respiratory: Symmetrical Chest Expansion and Respiratory Effort, Clear to Auscultation Cardiovascular: NL Sounds; No Murmurs; No JVD, RRR, - Abdominal: NL Sounds; No Tenderness; No Distention Lymphatic: No Cervical Adenopathy Extremities: No Clubbing, Cyanosis, - - trace b/l ankle edema Skin: No Rash or Ulcers, No Nodules or Sclerosis Neurological: Alert and Oriented x 3, NL Muscle Strength and Tone Result Diagrams: 09/27/16 12:20 09/27/16 12:20 Additional Lab and Data: Lab Results 09/24/16 Range/Units 22:16 WBC 8.4 (3.5-10.8) 10^3/ul RBC 3.29 L (4.0-5.4) 10^6/ul Hgb 10.4 L (12.0-16.0) g/dl Hct 31 L (35-47) % MCV 95 (80-97) fL MCH 32 H (27-31) pg MCHC 33 (31-36) g/dl RDW 12 (10.5-15) % Plt Count 199 (150-450) 10^3/ul MPV 8 (7.4-10.4) um3 Neut % (Auto) 69.3 (38-83) % Lymph % (Auto) 23.2 L (25-47) % Todd % (Auto) 4.7 (1-9) % Eos % (Auto) 2.2 (0-6) % Baso % (Auto) 0.6 (0-2) % Absolute Neuts (auto) 5.8 (1.5-7.7) 10^3/ul Absolute Lymphs (auto) 2.0 (1.0-4.8) 10^3/ul Absolute Monos (auto) 0.4 (0-0.8) 10^3/ul Absolute Eos (auto) 0.2 (0-0.6) 10^3/ul Absolute Basos (auto) 0.1 (0-0.2) 10^3/ul Absolute Nucleated RBC 0 10^3/ul Nucleated RBC % 0 Assess/Plan/Problems-Billing Assessment: Mrs. Martin is a 75yo F with PMH of chronic constipation, asthma, restless leg syndrome, essential tremor, chronic pain, GERD, hypothyroidism, chronic lymphedema, who presented to ED with c/o CP, found to be in Afib. - Patient Problems (1) Atrial fibrillation Comment: - S/p cardioversion 09/25/16 - flipped in to A flutter last on 09/25/16 with symptoms, now back in sinus with Multaq. - Continue Eliquis. - Continue to monitor on Telemetry. -adding on low dose lopressor after d/w Dr. Francis. (2) Chest pain Comment: - Troponin elevation likely secondary to Afib, but patient has risk factors for CAD. - stress test shows inferior wall ischemia that correlates with EKG changes -d/w Dr. Francis, pt needs cath but due to being on Eliquis today it will need to be postponed till Friday -d/c Eliquis, starting heparin gtt this PM. (3) Obstructive sleep apnea Comment: - Patient wears supplemental O2 overnight, but no CPAP. - overnight oximetry on her usual amount of O2 shows no significant hypoxemia (4) HLD (hyperlipidemia) Comment: - LDL>170 - states she cannot tolerate statins. (5) Hypothyroidism Comment: - TSH 0.54 - continue Levothyroxine. (6) GIDEON (acute kidney injury) Comment: creat up to 1.55 today, no UTI symptoms, but will check UA -frrom review of meds, no evidence of nephrotoxins -will monitor. -will check post void residual (7) DVT prophylaxis Comment: heparin gtt (8) Full code status Status and Disposition: Inpatient.
[2016-09-27] MEDS: Albuterol HFA INHALER* 8 gm MDI INH PRN (14:36)
[2016-09-27 16:11] LABS: Urine Bacteria Absent (Absent); Urine Bilirubin Negative (Negative); Urine Glucose Negative (Negative); Urine Nitrite Negative (Negative)
[2016-09-27] MEDS: Pramipexole TAB* 0.5 MG PO SCH (20:44)
[2016-09-27] MEDS: Montelukast Sodium TAB* 10 MG PO SCH (20:44)
[2016-09-27] MEDS: Venlafaxine EXT RELEASE CAP* 37.5 MG PO SCH (20:44)
[2016-09-27] MEDS: Fluticasone NASAL SPRAY 50MCG* 16 gm SPRAY BTL BOTH NARES SCH (20:45)
[2016-09-27] MEDS ORDERED: Heparin DRIP 25,000 UNITS(*) 25,000 UNITS/500 ML BAG IVPB SCH (21:00)
[2016-09-28] MEDS: HYDROcodone/ACETAMIN 5-325 MG* 1 TAB PO PRN ×4 (03:53→17:22)
[2016-09-28] MEDS: Dronedarone TAB* 400 MG PO SCH ×2 (05:52→17:22)
[2016-09-28] MEDS: Levothyroxine TAB* 137 MCG TAB PO SCH (05:52)
[2016-09-28 07:58] LABS: Hematocrit 24 % (35-47); Hemoglobin 8.2 g/dl (12.0-16.0); Mean Corpuscular HGB Conc 34 g/dl (31-36); Mean Corpuscular Hemoglobin 33 pg (27-31); Mean Corpuscular Volume 95 fL (80-97); Mean Platelet Volume 8 um3 (7.4-10.4); Red Cell Distribution Width 12 % (10.5-15); White Blood Count 6.7 10^3/ul (3.5-10.8)
[2016-09-28] MEDS: Mometasone/Formoter 200/5 MDI INH SCH ×2 (08:04→20:32)
[2016-09-28 08:14] LABS: BUN/Creatinine Ratio 24.3 (8-20); Calcium 8.6 mg/dL (8.6-10.3); EGFR Non-African American 36.6 (>60); Potassium 4.9 mmol/L (3.5-5.0)
[2016-09-28] MEDS: Aspirin EC Low Dose* 81 MG TAB.EC PO SCH (08:36)
[2016-09-28] MEDS: Metoprolol Tartrate TAB* 25 MG PO SCH ×2 (08:37→20:37)
[2016-09-28] MEDS: Senna TAB PO SCH ×2 (08:37→20:37)
[2016-09-28] MEDS: Omeprazole CAP* 20 MG PO SCH ×2 (08:37→20:36)
[2016-09-28] MEDS: Docusate CAP* 100 MG PO SCH ×2 (08:37→20:37)
[2016-09-28] MEDS: Fluticasone NASAL SPRAY 50MCG* 16 gm SPRAY BTL BOTH NARES SCH (08:41)
[2016-09-28] MEDS: Albuterol HFA INHALER* 8 gm MDI INH PRN (13:35)
[2016-09-28] MEDS ORDERED: Analgesic BALM* 114 GM TOPICAL PRN (13:55)
[2016-09-28] MEDS: Nitroglycerin 0.1 mg/Hr PATCH* (2.5 MG) TRANSDERM SCH (15:18)
--- NOTE | 2016-09-28 17:03 | PN ---
Subjective Date of Service: 09/28/16 Interval History: HOSPITALIST PROGRESS NOTE Patient seen and examined at bedside. She feels better this AM, but tired because she didn't sleep well last night. No further episodes of jaw or neck pain and remains in NSR. Family History: Unchanged from Admission Social History: Unchanged from Admission Past Medical History: Unchanged from Admission Objective Active Medications: Acetaminophen (Tylenol Tab*) 650 mg PO Q4H PRN PRN Reason: FEVER/PAIN Hydrocodone Bitart/Acetaminophen ([place] 5-325 Tab*) 2 tab PO Q4H PRN PRN Reason: PAIN Last Admin: 09/28/16 13:24 Dose: 2 tab Al Hydrox/Mg Hydrox/Simethicone (Maalox Plus*) 30 ml PO Q6H PRN PRN Reason: INDIGESTION Albuterol (Ventolin Hfa Inhaler*) 2 puff INH Q4H PRN PRN Reason: SOB/WHEEZING Last Admin: 09/28/16 13:35 Dose: 2 puff Aspirin (Aspirin Ec Low Dose*) 81 mg PO DAILY [facility] Last Admin: 09/28/16 08:36 Dose: 81 mg Docusate Sodium (Colace Cap*) 100 mg PO BID [facility] Last Admin: 09/28/16 08:37 Dose: 100 mg Dronedarone (Multaq Tab*) 400 mg PO 0500,1700 [facility] Last Admin: 09/28/16 05:52 Dose: 400 mg Fluticasone Propionate (Flonase Nasal [place] 50mcg*) 2 spray BOTH NARES DAILY [facility] Last Admin: 09/28/16 08:41 Dose: 2 spray Hydromorphone HCl (Dilaudid Iv*) 0.5 mg IV SLOW PU Q4H PRN PRN Reason: PAIN Last Admin: 09/27/16 17:15 Dose: 0.5 mg Levothyroxine Sodium (Synthroid Tab*) 137 mcg PO DAILY@0600 [facility] Last Admin: 09/28/16 05:52 Dose: 137 mcg Metoprolol Tartrate (Lopressor Tab*) 12.5 mg PO Q12HR [facility] Last Admin: 09/28/16 08:37 Dose: 12.5 mg Mometasone Furoate/Formoterol Fumar (Dulera 200/5 Mdi*) 1 puff INH BID [facility] Last Admin: 09/28/16 08:04 Dose: 1 puff Montelukast Sodium (Singulair Tab*) 10 mg PO BEDTIME [facility] Last Admin: 09/27/16 20:44 Dose: 10 mg Multi-Ingredient Liniment/Rub (Rafael Pinto*) 1 applic TOPICAL TID PRN PRN Reason: Muscle pain Last Admin: 09/28/16 15:17 Dose: 1 applic Nitroglycerin (Nitroglycerin 2.5 Mg Patch*) 1 patch TRANSDERM DAILY [facility] Last Admin: 09/28/16 15:18 Dose: 1 patch Omeprazole (Prilosec Cap*) 40 mg PO BID [facility] Last Admin: 09/28/16 08:37 Dose: 40 mg Ondansetron HCl (Zofran Inj*) 4 mg IV Q4H PRN PRN Reason: NAUSEA/VOMITING Pharmacy Profile Note (Nitro Patch/Oint Remove*) 1 note N/A 2100 [facility] Pramipexole Dihydrochloride (Mirapex Tab*) 1 mg PO BEDTIME [facility] Last Admin: 09/27/16 20:44 Dose: 1 mg Senna (Senokot Tab*) 1 tab PO BID [facility] Last Admin: 09/28/16 08:37 Dose: 1 tab Venlafaxine HCl (Effexor Xr Cap*) 112.5 mg PO 2100 [facility] Last Admin: 09/27/16 20:44 Dose: 112.5 mg Vital Signs 09/28/16 09/28/16 09/28/16 13:24 14:01 15:24 Temperature 97.5 F Pulse Rate 62 Respiratory 16 18 18 Rate Blood Pressure 142/77 (mmHg) O2 Sat by Pulse 96 Oximetry Oxygen Devices in Use Now: Nasal Cannula Appearance: Pleasant elderly lady lying in bed in [facility]. Eyes: No Scleral Icterus Ears/Nose/Mouth/Throat: Mucous Membranes Moist Neck: Trachea Midline Respiratory: Symmetrical Chest Expansion and Respiratory Effort, Clear to Auscultation Cardiovascular: RRR - Normal S1 and S2 Abdominal: NL Sounds; No Tenderness; No Distention Neurological: Alert and Oriented x 3, NL Muscle Strength and Tone Lines/Tubes/Other Access: Clean, Dry and Intact Peripheral IV Nutrition: Taking PO's Result Diagrams: 09/28/16 07:23 09/28/16 07:23 Assess/Plan/Problems-Billing Assessment: Mrs. Martin is a 75yo F with PMH of chronic constipation, asthma, restless leg syndrome, essential tremor, chronic pain, GERD, hypothyroidism, chronic lymphedema, who presented to ED with c/o CP, found to be in Afib. - Patient Problems (1) Atrial fibrillation Comment: - S/p cardioversion 09/25/16 - flipped in to A flutter last 09/25/16 with symptoms, now back in sinus with Multaq and low dose metoprolol. - Continue to monitor on Telemetry. (2) NSTEMI (non-ST elevated myocardial infarction) Comment: - Troponin elevation likely secondary to Afib, but patient has risk factors for CAD. - Stress test shows inferior wall ischemia that correlates with EKG changes. - Plan for cath on 09/30/16. (3) Anemia Comment: - Patient's H/H is slowly drifting down - today 8.09/13. - Although she denies black stools at this time, she reports a remote history of gastric ulcer. - Check anemia w/u and stool guaiac. - D/w Cardiology (Dr. Francis) - recommended discontinuation of heparin for now. (4) Obstructive sleep apnea Comment: - Patient wears supplemental O2 overnight, but no CPAP. - Overnight oximetry on her usual amount of O2 showed no significant hypoxemia. (5) HLD (hyperlipidemia) Comment: - LDL>170 - states she cannot tolerate statins. (6) Hypothyroidism Comment: - TSH 0.54 - continue Levothyroxine. (7) DVT prophylaxis Comment: - SQ heparin. (8) Full code status Status and Disposition: Inpatient.
[2016-09-28] MEDS: Venlafaxine EXT RELEASE CAP* 37.5 MG PO SCH (20:36)
[2016-09-28] MEDS: Pramipexole TAB* 0.5 MG PO SCH (20:36)
[2016-09-28] MEDS: Montelukast Sodium TAB* 10 MG PO SCH (20:37)
[2016-09-28] MEDS: Heparin VIAL(*) 5000 UNITS/ML VIAL (FIVE THOUSAND) SUBCUT SCH (20:38)
[2016-09-28] MEDS ORDERED: Nitro Patch/OINT Remove SCH (21:00)
[2016-09-29] MEDS: HYDROcodone/ACETAMIN 5-325 MG* 1 TAB PO PRN ×5 (00:12→20:28)
[2016-09-29] MEDS: Albuterol HFA INHALER* 8 gm MDI INH PRN (00:39)
[2016-09-29] MEDS: Dronedarone TAB* 400 MG PO SCH ×2 (04:26→16:14)
[2016-09-29] MEDS: Cetirizine* 10 MG TAB PO PRN (05:38)
[2016-09-29] MEDS: Levothyroxine TAB* 137 MCG TAB PO SCH (05:38)
[2016-09-29] MEDS: Heparin VIAL(*) 5000 UNITS/ML VIAL (FIVE THOUSAND) SUBCUT SCH ×3 (05:38→20:27)
[2016-09-29] MEDS ORDERED: Nitro Patch/OINT Remove SCH (06:00)
[2016-09-29 07:21] LABS: Hematocrit 24 % (35-47); Mean Corpuscular HGB Conc 34 g/dl (31-36); Mean Corpuscular Hemoglobin 32 pg (27-31); Mean Corpuscular Volume 95 fL (80-97); Mean Platelet Volume 8 um3 (7.4-10.4); Red Blood Count 2.51 10^6/ul (4.0-5.4); Red Cell Distribution Width 13 % (10.5-15); White Blood Count 7.4 10^3/ul (3.5-10.8)
[2016-09-29 07:29] LABS: Calcium 8.7 mg/dL (8.6-10.3); EGFR Non-African American 38.1 (>60); Potassium 4.7 mmol/L (3.5-5.0)
[2016-09-29 07:47] LABS: Troponin I 0.05 ng/mL (<0.04)
[2016-09-29 07:48] LABS: Ferritin 176.1 ng/mL (11-307)
[2016-09-29 07:53] LABS: Folate 19.57 ng/mL (>3.99)
[2016-09-29] MEDS: Docusate CAP* 100 MG PO SCH ×2 (08:06→20:28)
[2016-09-29] MEDS: Fluticasone NASAL SPRAY 50MCG* 16 gm SPRAY BTL BOTH NARES SCH (08:06)
[2016-09-29] MEDS: Aspirin EC Low Dose* 81 MG TAB.EC PO SCH (08:06)
[2016-09-29] MEDS: Senna TAB PO SCH ×2 (08:07→20:28)
[2016-09-29] MEDS: Nitroglycerin 0.1 mg/Hr PATCH* (2.5 MG) TRANSDERM SCH (08:07)
[2016-09-29] MEDS: Omeprazole CAP* 20 MG PO SCH ×2 (08:07→20:28)
[2016-09-29] MEDS: Metoprolol Tartrate TAB* 25 MG PO SCH ×2 (08:08→20:28)
[2016-09-29] MEDS: Mometasone/Formoter 200/5 MDI INH SCH ×2 (08:15→21:28)
[2016-09-29] MEDS: HYDROmorphone* 1 MG/ML 1 ML SYR IV SLOW PU PRN ×2 (11:56→16:09)
[2016-09-29] MEDS: Nitroglycerin 0.2 MG/HR PATCH* (5 MG) TRANSDERM SCH (12:30)
--- NOTE | 2016-09-29 15:26 | PN ---
Subjective Date of Service: 09/29/16 Interval History: HOSPITALIST PROGRESS NOTE Patient seen and examined at bedside. She could not rest last night due to multiple interruptions, feels very tired today. No further episodes of chest pain, pressure, or jaw pain, but did have some headache. Family History: Unchanged from Admission Social History: Unchanged from Admission Past Medical History: Unchanged from Admission Objective Active Medications: Acetaminophen (Tylenol Tab*) 650 mg PO Q4H PRN PRN Reason: FEVER/PAIN Hydrocodone Bitart/Acetaminophen ([place] 5-325 Tab*) 2 tab PO Q4H PRN PRN Reason: PAIN Last Admin: 09/29/16 12:19 Dose: 2 tab Al Hydrox/Mg Hydrox/Simethicone (Maalox Plus*) 30 ml PO Q6H PRN PRN Reason: INDIGESTION Albuterol (Ventolin Hfa Inhaler*) 2 puff INH Q4H PRN PRN Reason: SOB/WHEEZING Last Admin: 09/29/16 00:39 Dose: 2 puff Aspirin (Aspirin Ec Low Dose*) 81 mg PO DAILY [facility] Last Admin: 09/29/16 08:06 Dose: 81 mg Cetirizine HCl (Zyrtec*) 10 mg PO DAILY PRN PRN Reason: ALLERGIES Last Admin: 09/29/16 05:38 Dose: 10 mg Docusate Sodium (Colace Cap*) 100 mg PO BID [facility] Last Admin: 09/29/16 08:06 Dose: 100 mg Dronedarone (Multaq Tab*) 400 mg PO 0500,1700 [facility] Last Admin: 09/29/16 04:26 Dose: 400 mg Fluticasone Propionate (Flonase Nasal [place] 50mcg*) 2 spray BOTH NARES DAILY [facility] Last Admin: 09/29/16 08:06 Dose: 2 spray Heparin Sodium (Porcine) (Heparin Vial(*)) 5,000 units SUBCUT Q8HR [facility] Last Admin: 09/29/16 15:09 Dose: 5,000 units Hydromorphone HCl (Dilaudid Iv*) 0.5 mg IV SLOW PU Q4H PRN PRN Reason: PAIN Last Admin: 09/29/16 11:56 Dose: 0.5 mg Levothyroxine Sodium (Synthroid Tab*) 137 mcg PO DAILY@0600 [facility] Last Admin: 09/29/16 05:38 Dose: 137 mcg Metoprolol Tartrate (Lopressor Tab*) 12.5 mg PO Q12HR [facility] Last Admin: 09/29/16 08:08 Dose: 12.5 mg Mometasone Furoate/Formoterol Fumar (Dulera 200/5 Mdi*) 1 puff INH BID [facility] Last Admin: 09/29/16 08:15 Dose: 1 puff Montelukast Sodium (Singulair Tab*) 10 mg PO BEDTIME [facility] Last Admin: 09/28/16 20:37 Dose: 10 mg Multi-Ingredient Liniment/Rub (Rafael Pinto*) 1 applic TOPICAL TID PRN PRN Reason: Muscle pain Last Admin: 09/28/16 15:17 Dose: 1 applic Nitroglycerin (Nitroglycerin 5 Mg Patch*) 1 patch TRANSDERM DAILY [facility] Last Admin: 09/29/16 12:30 Dose: 1 patch Omeprazole (Prilosec Cap*) 40 mg PO BID [facility] Last Admin: 09/29/16 08:07 Dose: 40 mg Ondansetron HCl (Zofran Inj*) 4 mg IV Q4H PRN PRN Reason: NAUSEA/VOMITING Pharmacy Profile Note (Nitro Patch/Oint Remove*) 1 note N/A 2100 [facility] Pramipexole Dihydrochloride (Mirapex Tab*) 1 mg PO BEDTIME [facility] Last Admin: 09/28/16 20:36 Dose: 1 mg Senna (Senokot Tab*) 1 tab PO BID [facility] Last Admin: 09/29/16 08:07 Dose: 1 tab Venlafaxine HCl (Effexor Xr Cap*) 112.5 mg PO 2100 [facility] Last Admin: 09/28/16 20:36 Dose: 112.5 mg Vital Signs 09/29/16 09/29/16 09/29/16 04:26 07:43 08:00 Temperature 98.0 F Pulse Rate 69 Respiratory 18 18 16 Rate Blood Pressure 167/58 (mmHg) O2 Sat by Pulse 95 Oximetry Oxygen Devices in Use Now: Nasal Cannula Appearance: Elderly lady lying in bed in [place]. Eyes: No Scleral Icterus Ears/Nose/Mouth/Throat: Mucous Membranes Moist Neck: Trachea Midline Respiratory: Symmetrical Chest Expansion and Respiratory Effort, Clear to Auscultation Cardiovascular: RRR - Normal S1 and S2 Abdominal: NL Sounds; No Tenderness; No Distention, - - Rectal exam: no external hemorrhoids, hard stool in the vault, light brown Neurological: Alert and Oriented x 3, NL Muscle Strength and Tone Lines/Tubes/Other Access: Clean, Dry and Intact Peripheral IV Nutrition: Taking PO's Result Diagrams: 09/29/16 06:20 09/29/16 06:20 Assess/Plan/Problems-Billing Assessment: Mrs. Martin is a 75yo F with PMH of chronic constipation, asthma, restless leg syndrome, essential tremor, chronic pain, GERD, hypothyroidism, chronic lymphedema, who presented to ED with c/o CP, found to be in Afib. - Patient Problems (1) Atrial fibrillation Comment: - S/p cardioversion 09/25/16 - flipped in to A flutter last 09/25/16 with symptoms, now back in sinus with Multaq and low dose metoprolol. - Had episode of APC vs slow a flutter 09/28/16, but asymptomatic. - Continue to monitor on Telemetry. (2) NSTEMI (non-ST elevated myocardial infarction) Comment: - Troponin elevation likely secondary to Afib, but patient has risk factors for CAD. - Stress test shows inferior wall ischemia that correlates with EKG changes. - Plan for cath next week. (3) Anemia Comment: - Patient's H/H is slowly drifting down - today 03/13. Will transfuse 2 PRBC as she is in the recent phase of a NSTEMI. - Although she denies black stools at this time, she reports a remote history of gastric ulcer/hiatal hernia. - Anemia w/u reviewed and stool guaiac is pending. - She states she had anemia w/u with Dr. Romero as outpatient, including 2 bone marrow biopsies. Last one in 2014 showed hypercellular BM. Will d/w hematology as her anemia is a point of concern prior to cardiac cath. - D/w Cardiology (Dr. Francis) - recommended discontinuation of heparin for now. (4) Obstructive sleep apnea Comment: - Patient wears supplemental O2 overnight, but no CPAP. - Overnight oximetry on her usual amount of O2 showed no significant hypoxemia. (5) HLD (hyperlipidemia) Comment: - LDL>170 - states she cannot tolerate statins. (6) Hypothyroidism Comment: - TSH 0.54 - continue Levothyroxine. (7) DVT prophylaxis Comment: - SQ heparin. (8) Full code status Status and Disposition: Inpatient.
[2016-09-29] MEDS: Venlafaxine EXT RELEASE CAP* 37.5 MG PO SCH (20:27)
[2016-09-29] MEDS: Pramipexole TAB* 0.5 MG PO SCH (20:27)
[2016-09-29] MEDS: Nitro Patch/OINT Remove SCH (20:28)
[2016-09-29] MEDS: Montelukast Sodium TAB* 10 MG PO SCH (20:28)
[2016-09-30] MEDS: HYDROcodone/ACETAMIN 5-325 MG* 1 TAB PO PRN ×5 (00:36→21:11)
[2016-09-30] MEDS: Dronedarone TAB* 400 MG PO SCH ×2 (04:34→16:46)
[2016-09-30] MEDS: Heparin VIAL(*) 5000 UNITS/ML VIAL (FIVE THOUSAND) SUBCUT SCH ×3 (05:23→21:10)
[2016-09-30] MEDS: Levothyroxine TAB* 137 MCG TAB PO SCH (05:23)
[2016-09-30 05:47] LABS: Hematocrit 30 % (35-47); Hemoglobin 9.8 g/dl (12.0-16.0); Mean Corpuscular HGB Conc 33 g/dl (31-36); Mean Corpuscular Hemoglobin 30 pg (27-31); Mean Corpuscular Volume 91 fL (80-97); Mean Platelet Volume 8 um3 (7.4-10.4); Red Blood Count 3.24 10^6/ul (4.0-5.4); Red Cell Distribution Width 15 % (10.5-15); White Blood Count 8.9 10^3/ul (3.5-10.8)
[2016-09-30 06:00] LABS: BUN/Creatinine Ratio 23.6 (8-20); Blood Urea Nitrogen 33 mg/dL (6-24); CO2 Carbon Dioxide 24 mmol/L (22-32); Calcium 8.6 mg/dL (8.6-10.3); Chloride 105 mmol/L (101-111); EGFR Non-African American 36.6 (>60); Glucose 91 mg/dL (70-100); Sodium 134 mmol/L (133-145)
[2016-09-30] MEDS: Mometasone/Formoter 200/5 MDI INH SCH ×2 (08:45→19:43)
[2016-09-30] MEDS: Aspirin EC Low Dose* 81 MG TAB.EC PO SCH (10:07)
[2016-09-30] MEDS: Omeprazole CAP* 20 MG PO SCH ×2 (10:07→21:10)
[2016-09-30] MEDS: Docusate CAP* 100 MG PO SCH ×2 (10:07→21:10)
[2016-09-30] MEDS: Senna TAB PO SCH ×2 (10:07→21:10)
[2016-09-30] MEDS: Metoprolol Tartrate TAB* 25 MG PO SCH ×2 (10:08→21:11)
[2016-09-30] MEDS: Nitroglycerin 0.2 MG/HR PATCH* (5 MG) TRANSDERM SCH (10:08)
[2016-09-30] MEDS: Fluticasone NASAL SPRAY 50MCG* 16 gm SPRAY BTL BOTH NARES SCH (10:11)
[2016-09-30] MEDS ORDERED: Midazolam* 1 MG/ML 10 ML VIAL (10 MG) ONE (12:53)
[2016-09-30] MEDS ORDERED: fentaNYL* 50 MCG/ML 2 ML VIAL (100 MCG VIAL) ONE (12:53)
[2016-09-30] MEDS: Cyanocobalamin TAB* 500 MCG PO SCH (16:46)
--- NOTE | 2016-09-30 17:31 | PN ---
Subjective Date of Service: 09/30/16 Interval History: HOSPITALIST PROGRESS NOTE Patient seen and examined at bedside. Offers no new complaints today. Family History: Unchanged from Admission Social History: Unchanged from Admission Past Medical History: Unchanged from Admission Objective Active Medications: Acetaminophen (Tylenol Tab*) 650 mg PO Q4H PRN PRN Reason: FEVER/PAIN Hydrocodone Bitart/Acetaminophen ([place] 5-325 Tab*) 2 tab PO Q4H PRN PRN Reason: PAIN Last Admin: 09/30/16 16:46 Dose: 2 tab Al Hydrox/Mg Hydrox/Simethicone (Maalox Plus*) 30 ml PO Q6H PRN PRN Reason: INDIGESTION Albuterol (Ventolin Hfa Inhaler*) 2 puff INH Q4H PRN PRN Reason: SOB/WHEEZING Last Admin: 09/29/16 00:39 Dose: 2 puff Aspirin (Aspirin Ec Low Dose*) 81 mg PO DAILY [facility] Last Admin: 09/30/16 10:07 Dose: 81 mg Cetirizine HCl (Zyrtec*) 10 mg PO DAILY PRN PRN Reason: ALLERGIES Last Admin: 09/29/16 05:38 Dose: 10 mg Cyanocobalamin (Vitamin B12 Tab*) 1,000 mcg PO DAILY [facility] Last Admin: 09/30/16 16:46 Dose: 1,000 mcg Docusate Sodium (Colace Cap*) 100 mg PO BID [facility] Last Admin: 09/30/16 10:07 Dose: 100 mg Dronedarone (Multaq Tab*) 400 mg PO 0500,1700 [facility] Last Admin: 09/30/16 16:46 Dose: 400 mg Fluticasone Propionate (Flonase Nasal [place] 50mcg*) 2 spray BOTH NARES DAILY [facility] Last Admin: 09/30/16 10:11 Dose: 2 spray Heparin Sodium (Porcine) (Heparin Vial(*)) 5,000 units SUBCUT Q8HR [facility] Last Admin: 09/30/16 14:13 Dose: 5,000 units Hydromorphone HCl (Dilaudid Iv*) 1 mg IV SLOW PU Q4H PRN PRN Reason: PAIN Last Admin: 09/29/16 16:09 Dose: 1 mg Levothyroxine Sodium (Synthroid Tab*) 137 mcg PO DAILY@0600 [facility] Last Admin: 09/30/16 05:23 Dose: 137 mcg Metoprolol Tartrate (Lopressor Tab*) 12.5 mg PO Q12HR [facility] Last Admin: 09/30/16 10:08 Dose: 12.5 mg Mometasone Furoate/Formoterol Fumar (Dulera 200/5 Mdi*) 1 puff INH BID [facility] Last Admin: 09/30/16 08:45 Dose: 1 puff Montelukast Sodium (Singulair Tab*) 10 mg PO BEDTIME [facility] Last Admin: 09/29/16 20:28 Dose: 10 mg Multi-Ingredient Liniment/Rub (Rafael Pinto*) 1 applic TOPICAL TID PRN PRN Reason: Muscle pain Last Admin: 09/28/16 15:17 Dose: 1 applic Nitroglycerin (Nitroglycerin 5 Mg Patch*) 1 patch TRANSDERM DAILY [facility] Last Admin: 09/30/16 10:08 Dose: 1 patch Omeprazole (Prilosec Cap*) 40 mg PO BID [facility] Last Admin: 09/30/16 10:07 Dose: 40 mg Ondansetron HCl (Zofran Inj*) 4 mg IV Q4H PRN PRN Reason: NAUSEA/VOMITING Pharmacy Profile Note (Nitro Patch/Oint Remove*) 1 note N/A 2100 [facility] Last Admin: 09/29/16 20:28 Dose: 1 note Pramipexole Dihydrochloride (Mirapex Tab*) 1 mg PO BEDTIME [facility] Last Admin: 09/29/16 20:27 Dose: 1 mg Senna (Senokot Tab*) 1 tab PO BID [facility] Last Admin: 09/30/16 10:07 Dose: 1 tab Venlafaxine HCl (Effexor Xr Cap*) 112.5 mg PO 2100 [facility] Last Admin: 09/29/16 20:27 Dose: 112.5 mg Vital Signs 09/30/16 09/30/16 15:57 16:46 Temperature 98.2 F Pulse Rate 74 Respiratory 12 Rate Blood Pressure 172/65 (mmHg) O2 Sat by Pulse 100 Oximetry Oxygen Devices in Use Now: Nasal Cannula - 2 liters Appearance: Elderly obese lady lying in bed in NAD. Eyes: No Scleral Icterus Ears/Nose/Mouth/Throat: Mucous Membranes Moist Neck: Trachea Midline Respiratory: Symmetrical Chest Expansion and Respiratory Effort, Clear to Auscultation Cardiovascular: RRR - Normal S1 and S2 Abdominal: NL Sounds; No Tenderness; No Distention Neurological: Alert and Oriented x 3, NL Muscle Strength and Tone Lines/Tubes/Other Access: Clean, Dry and Intact Peripheral IV Nutrition: Taking PO's Result Diagrams: 09/30/16 05:34 09/30/16 09:17 Assess/Plan/Problems-Billing Assessment: Mrs. Martin is a 75yo F with PMH of chronic constipation, asthma, restless leg syndrome, essential tremor, chronic pain, GERD, hypothyroidism, chronic lymphedema, who presented to ED with c/o CP, found to be in Afib. - Patient Problems (1) Atrial fibrillation Comment: - S/p cardioversion 09/25/16 - flipped in to A flutter last 09/25/16 with symptoms, now back in sinus with Multaq and low dose metoprolol. - Had episode of APC vs slow a flutter 09/28/16, but asymptomatic. - Continue to monitor on Telemetry. (2) NSTEMI (non-ST elevated myocardial infarction) Comment: - Troponin elevation likely secondary to Afib, but patient has risk factors for CAD. - Stress test shows inferior wall ischemia that correlates with EKG changes. - Plan for cath tomorrow. (3) Anemia Comment: - Patient's H/H was slowly drifting down - today 03/13. S/p 2 PRBC as she is in the recent phase of a NSTEMI. - Although she denies black stools at this time, she reports a remote history of gastric ulcer/hiatal hernia. - Anemia w/u reviewed and stool guaiac was negative. - She states she had anemia w/u with Dr. Romero as outpatient, including 2 bone marrow biopsies. Last one in 2014 showed hypercellular BM. Will d/w hematology as her anemia is a point of concern prior to cardiac cath. - GI consult for EGD. - D/w Cardiology (Dr. Francis) - recommended discontinuation of heparin for now. (4) Gastric ulcer Comment: - EGD showed small pyloric ulcer, no signs of active bleeding. - Continue PPI BID. (5) Obstructive sleep apnea Comment: - Patient wears supplemental O2 overnight, but no CPAP. - Overnight oximetry on her usual amount of O2 showed no significant hypoxemia. (6) HLD (hyperlipidemia) Comment: - LDL>170 - states she cannot tolerate statins. (7) Hypothyroidism Comment: - TSH 0.54 - continue Levothyroxine. (8) DVT prophylaxis Comment: - SQ heparin. (9) Full code status Status and Disposition: Inpatient.
[2016-09-30] MEDS: Venlafaxine EXT RELEASE CAP* 37.5 MG PO SCH (21:10)
[2016-09-30] MEDS: Pramipexole TAB* 0.5 MG PO SCH (21:10)
[2016-09-30] MEDS: Montelukast Sodium TAB* 10 MG PO SCH (21:11)
[2016-09-30] MEDS: Nitro Patch/OINT Remove SCH (21:11)
[2016-10-01] MEDS: HYDROcodone/ACETAMIN 5-325 MG* 1 TAB PO PRN ×6 (01:31→23:00)
[2016-10-01] MEDS: Cetirizine* 10 MG TAB PO PRN ×2 (01:35→21:56)
[2016-10-01] MEDS: Levothyroxine TAB* 137 MCG TAB PO SCH (05:32)
[2016-10-01] MEDS: Dronedarone TAB* 400 MG PO SCH ×2 (05:33→17:25)
[2016-10-01] MEDS: Heparin VIAL(*) 5000 UNITS/ML VIAL (FIVE THOUSAND) SUBCUT SCH ×3 (05:33→21:52)
[2016-10-01 05:45] LABS: Hematocrit 27 % (35-47); Hemoglobin 9.1 g/dl (12.0-16.0); Mean Corpuscular HGB Conc 34 g/dl (31-36); Mean Corpuscular Hemoglobin 31 pg (27-31); Mean Corpuscular Volume 92 fL (80-97); Mean Platelet Volume 8 um3 (7.4-10.4); Red Blood Count 2.97 10^6/ul (4.0-5.4); Red Cell Distribution Width 15 % (10.5-15); White Blood Count 7.2 10^3/ul (3.5-10.8)
--- NOTE | 2016-10-01 05:53 | PRO ---
DATE OF PROCEDURE: 09/30/16 - ROOM #434 PROCEDURE: EGD. INDICATION: Anemia. REFERRING PHYSICIAN: Dr. Villeda. MEDICATIONS GIVEN: 25 mg IV fentanyl, 5 mg IV Versed. DESCRIPTION OF PROCEDURE: After the EGD procedure including the risks, benefits , and alternatives not limited to perforation, surgery and/or were explained to Ms. Martin, written consent was then obtained, IV medication was given, and a bite- block was placed between the teeth. An Olympus gastroscope was then inserted into the patient's mouth, advanced down the esophagus, into the stomach, into the distal duodenum. In the esophagus at the GE junction, the Z-line was intact. No erosive esophagitis, stricture, or ring was seen. The scope was advanced through the GE junction into the body of the stomach. Retroflex view was unremarkable. Forward view did reveal gastritis and a very small prepyloric ulcer. No bleeding was seen. The scope was advanced through the pylorus, into the duodenal bulb, into the distal duodenum, both of which were unremarkable. Scope was withdrawn from the patient. She tolerated the procedure well and was returned to her hospital room in stable condition. IMPRESSION: 1. Complete upper endoscopy into the distal duodenum. 2. Small gastric ulcer. 3. Gastritis. 4. I have been told that the patient likely will be put on anticoagulation due to her heart issue. Unfortunately, she does have potential bleeding lesion. They are small, but the bleeding risk is not zero. I would recommend she use maximum doses of PPIs in order to hopefully prevent any bleeding, but again the bleeding risk is not zero. CC: Dr. Villeda; Dr. Francis* [id number]/[facility] #: [id number] [facility]
[2016-10-01] MEDS: Cyanocobalamin TAB* 500 MCG PO SCH (08:35)
[2016-10-01] MEDS: Aspirin EC Low Dose* 81 MG TAB.EC PO SCH (08:35)
[2016-10-01] MEDS: Senna TAB PO SCH ×2 (08:35→21:49)
[2016-10-01] MEDS: Omeprazole CAP* 20 MG PO SCH ×2 (08:35→21:49)
[2016-10-01] MEDS: Docusate CAP* 100 MG PO SCH ×2 (08:35→21:49)
[2016-10-01] MEDS: Metoprolol Tartrate TAB* 25 MG PO SCH ×2 (08:35→21:49)
[2016-10-01] MEDS: Fluticasone NASAL SPRAY 50MCG* 16 gm SPRAY BTL BOTH NARES SCH (08:36)
[2016-10-01] MEDS: Nitroglycerin 0.2 MG/HR PATCH* (5 MG) TRANSDERM SCH (08:38)
[2016-10-01] MEDS ORDERED: diPHENhydraMINE PO* 25 MG PO ONE (09:00)
[2016-10-01] MEDS ORDERED: methylPREDNISolone SOD SUCC* 125 MG 2 ML VIAL IV ONE (09:00)
[2016-10-01] MEDS: Mometasone/Formoter 200/5 MDI INH SCH ×2 (09:35→19:56)
[2016-10-01] MEDS ORDERED: fentaNYL* 50 MCG/ML 2 ML VIAL (100 MCG VIAL) ONE (10:06)
[2016-10-01] MEDS ORDERED: Midazolam* 1 MG/ML 5 ML VIAL (5 MG) ONE (10:06)
[2016-10-01] MEDS ORDERED: Lidocaine 1% INJ* 10 MG/ML 30 ML SDV ONE (10:06)
[2016-10-01] MEDS ORDERED: Heparin 2 UNITS/ML IVPREMIX* 3,000 ML IV ONE (10:06)
[2016-10-01] MEDS ORDERED: Iodixanol* (CONTRAST) 320 MG/ML 100 ML SDV ONE (10:07)
[2016-10-01] MEDS ORDERED: Acetaminophen TAB* 325 MG PO PRN (11:45)
[2016-10-01] MEDS ORDERED: NS 0.9% 1000 ML* 1,000 ML IV SCH (11:45)
--- NOTE | 2016-10-01 18:01 | PN ---
Subjective Date of Service: 10/01/16 Interval History: HOSPITALIST PROGRESS NOTE Patient seen and examined at bedside. She feels well today, offers no new complaints. Family History: Unchanged from Admission Social History: Unchanged from Admission Past Medical History: Unchanged from Admission Objective Active Medications: Acetaminophen (Tylenol Tab*) 650 mg PO Q4H PRN PRN Reason: FEVER/PAIN Acetaminophen (Tylenol Tab*) 650 mg PO Q4H PRN PRN Reason: PAIN - MILD Hydrocodone Bitart/Acetaminophen ([place] 5-325 Tab*) 2 tab PO Q4H PRN PRN Reason: PAIN Last Admin: 10/01/16 14:47 Dose: 2 tab Al Hydrox/Mg Hydrox/Simethicone (Maalox Plus*) 30 ml PO Q6H PRN PRN Reason: INDIGESTION Albuterol (Ventolin Hfa Inhaler*) 2 puff INH Q4H PRN PRN Reason: SOB/WHEEZING Last Admin: 09/29/16 00:39 Dose: 2 puff Aspirin (Aspirin Ec Low Dose*) 81 mg PO DAILY [facility] Last Admin: 10/01/16 08:35 Dose: 81 mg Cetirizine HCl (Zyrtec*) 10 mg PO DAILY PRN PRN Reason: ALLERGIES Last Admin: 10/01/16 01:35 Dose: 10 mg Cyanocobalamin (Vitamin B12 Tab*) 1,000 mcg PO DAILY [facility] Last Admin: 10/01/16 08:35 Dose: 1,000 mcg Docusate Sodium (Colace Cap*) 100 mg PO BID [facility] Last Admin: 10/01/16 08:35 Dose: 100 mg Dronedarone (Multaq Tab*) 400 mg PO 0500,1700 [facility] Last Admin: 10/01/16 17:25 Dose: 400 mg Fluticasone Propionate (Flonase Nasal Opp 50mcg*) 2 spray BOTH NARES DAILY [facility] Last Admin: 10/01/16 08:36 Dose: 2 spray Heparin Sodium (Porcine) (Heparin Vial(*)) 5,000 units SUBCUT Q8HR [facility] Last Admin: 10/01/16 14:47 Dose: 5,000 units Hydromorphone HCl (Dilaudid Iv*) 1 mg IV SLOW PU Q4H PRN PRN Reason: PAIN Last Admin: 09/29/16 16:09 Dose: 1 mg Sodium Chloride (Ns 0.9% 1000 Ml*) 1,000 mls @ 100 mls/hr IV .per rate [facility] Levothyroxine Sodium (Synthroid Tab*) 137 mcg PO DAILY@0600 [facility] Last Admin: 10/01/16 05:32 Dose: 137 mcg Metoprolol Tartrate (Lopressor Tab*) 12.5 mg PO Q12HR [facility] Last Admin: 10/01/16 08:35 Dose: 12.5 mg Mometasone Furoate/Formoterol Fumar (Dulera 200/5 Mdi*) 1 puff INH BID [facility] Last Admin: 10/01/16 09:35 Dose: 1 puff Montelukast Sodium (Singulair Tab*) 10 mg PO BEDTIME [facility] Last Admin: 09/30/16 21:11 Dose: 10 mg Multi-Ingredient Liniment/Rub (Rafael Pinto*) 1 applic TOPICAL TID PRN PRN Reason: Muscle pain Last Admin: 09/28/16 15:17 Dose: 1 applic Nitroglycerin (Nitroglycerin 5 Mg Patch*) 1 patch TRANSDERM DAILY [facility] Last Admin: 10/01/16 08:38 Dose: 1 patch Omeprazole (Prilosec Cap*) 40 mg PO BID [facility] Last Admin: 10/01/16 08:35 Dose: 40 mg Ondansetron HCl (Zofran Inj*) 4 mg IV Q4H PRN PRN Reason: NAUSEA/VOMITING Pharmacy Profile Note (Nitro Patch/Oint Remove*) 1 note N/A 2100 [facility] Last Admin: 09/30/16 21:11 Dose: 1 note Pramipexole Dihydrochloride (Mirapex Tab*) 1 mg PO BEDTIME [facility] Last Admin: 09/30/16 21:10 Dose: 1 mg Senna (Senokot Tab*) 1 tab PO BID [facility] Last Admin: 10/01/16 08:35 Dose: 1 tab Venlafaxine HCl (Effexor Xr Cap*) 112.5 mg PO 2100 [facility] Last Admin: 09/30/16 21:10 Dose: 112.5 mg Vital Signs 10/01/16 10/01/16 10/01/16 14:47 15:00 15:19 Temperature 98.1 F Pulse Rate Respiratory 18 21 19 Rate Blood Pressure 153/55 (mmHg) O2 Sat by Pulse Oximetry Oxygen Devices in Use Now: Nasal Cannula - 2 liters Appearance: Pleasant morbid obese lady sitting up in bed in NAD. Eyes: No Scleral Icterus Ears/Nose/Mouth/Throat: Mucous Membranes Moist Neck: Trachea Midline Respiratory: Symmetrical Chest Expansion and Respiratory Effort, Clear to Auscultation Cardiovascular: RRR - Normal S1 and S2 Abdominal: NL Sounds; No Tenderness; No Distention Neurological: Alert and Oriented x 3, NL Muscle Strength and Tone Lines/Tubes/Other Access: Clean, Dry and Intact Peripheral IV Nutrition: Taking PO's Result Diagrams: 10/01/16 05:16 09/30/16 09:17 Assess/Plan/Problems-Billing Assessment: Mrs. Martin is a 75yo F with PMH of chronic constipation, asthma, restless leg syndrome, essential tremor, chronic pain, GERD, hypothyroidism, chronic lymphedema, who presented to ED with c/o CP, found to be in Afib. - Patient Problems (1) Atrial fibrillation Comment: - S/p cardioversion 09/25/16 - flipped in to A flutter last 09/25/16 with symptoms, now back in sinus with Multaq and low dose metoprolol. - Had episode of APC vs slow a flutter 09/28/16, but asymptomatic. - Continue to monitor on Telemetry. - D/w Cardiology (Dr. Hilliard) - recommended holding off on anticoagulation at this point due to risk of bleeding, but would anticoagulate if she flips back into A flutter. (2) NSTEMI (non-ST elevated myocardial infarction) Comment: - Troponin elevation likely secondary to Afib, but patient has risk factors for CAD. - Stress test shows inferior wall ischemia that correlates with EKG changes. - Cardiac cath showed 95% RCA stenosis, but with left to right collaterals. Recommendation at this point is to continue medical management with Aspirin, statin, metoprolol. She will f/u as outpatient with her stereo equipment repairer (Dr. Price in [place]) - if she develops symptoms again, may need stent placement. (3) Anemia Comment: - Patient's H/H was slowly drifting down - today 03/13. S/p 2 PRBC as she is in the recent phase of a NSTEMI. - Although she denies black stools at this time, she reports a remote history of gastric ulcer/hiatal hernia. - Anemia w/u reviewed and stool guaiac was negative. - She states she had anemia w/u with Dr. Romero as outpatient, including 2 bone marrow biopsies. Last one in 2014 showed hypercellular BM. Will d/w hematology as her anemia is a point of concern prior to cardiac cath. - GI input appreciated - EGD showed small gastric ulcer, non-bleeding. (4) Gastric ulcer Comment: - EGD showed small pyloric ulcer, no signs of active bleeding. - Continue PPI BID. (5) Obstructive sleep apnea Comment: - Patient wears supplemental O2 overnight, but no CPAP. - Overnight oximetry on her usual amount of O2 showed no significant hypoxemia. (6) HLD (hyperlipidemia) Comment: - LDL>170 - states she cannot tolerate Atorvastatin or Simvastatin due to LE pain and weakness, but willing to try Rosuvastatin. (7) Hypothyroidism Comment: - TSH 0.54 - continue Levothyroxine. (8) DVT prophylaxis Comment: - SQ heparin. (9) Full code status Status and Disposition: Inpatient.
[2016-10-01] MEDS: Venlafaxine EXT RELEASE CAP* 37.5 MG PO SCH (21:48)
[2016-10-01] MEDS: CMCS: Rosuvastatin (NF) 20 MG TAB PO SCH (21:48)
[2016-10-01] MEDS: Pramipexole TAB* 0.5 MG PO SCH (21:48)
[2016-10-01] MEDS: Montelukast Sodium TAB* 10 MG PO SCH (21:49)
[2016-10-01] MEDS: Nitro Patch/OINT Remove SCH (21:57)
--- NOTE | 2016-10-02 02:40 | CATH ---
CC: Dr. Villeda; Joy Wheatley, Cardiology; Dr. Zack Francis; Dr. Bennie Herron CARDIAC CATHETERIZATION REPORT: DATE OF PROCEDURE: 10/01/16 INDICATION FOR PROCEDURE: Atrial fibrillation, abnormal troponin level, abnormal stress test. HISTORY: The patient is a 75-year-old female who was admitted to the hospital with atrial fibrillat ion, palpations, and chest pain. The patient underwent transesophageal echocardiogram and cardiover krish back to normal sinus rhythm. The patient had an elevation in troponin level to a peak troponin level of 0.58. The patient underwent a stress test, which showed inferior wall ischemia and cardia c catheterization was recommended. Of note, the patient has a history of anemia. The patient underw ent endoscopy yesterday, which showed a small ulcer in her stomach but no evidence of bleeding. PROCEDURE: The patient was brought to the cardiac catheterization lab in a fasting state. Informed consent had been obtained prior to the procedure. All labs have been reviewed. The patient was pl aced supine on the catheterization table. Both femoral areas were cleaned and draped in the usual f ashion. 1% lidocaine was used for local anesthesia. The right femoral artery was entered by a girish fied Seldinger technique and a 6-[place] sheath introducer was placed. The patient underwent coronar y angiography using a 6-[place] JL4 catheter and a 6-[place] AR1 catheter. At the end of the procedur e, an angiogram of the femoral artery demonstrated a normal position of the catheter and a Mynx clos ure device was deployed. The patient tolerated the procedure well and no complications. A total of 3.4 minutes of fluoro time was used. A total 70 cc of Visipaque dye was used. FINDINGS: CORONARY ARTERIES: 1. Left main artery: The left main was normal in size. It bifurcated into the LAD and circumflex. There was no evidence of stenosis. 2. Left anterior descending artery: The LAD was normal in size. It gave off two diagonal vessels. There was moderate calcification to the proximal vessel. There was no stenosis in the proximal ve ssel. The mid LAD had mild calcification, had had an eccentric 20% stenosis to the mid LAD. The re mainder of the vessel was without disease. The first diagonal vessel was a large vessel without dis ease. 3. Left circumflex artery: The circumflex artery was normal in size. It gave off one obtuse kiya nal branch. There was mild calcification of the proximal and mid vessel of the left circumflex emmanuel ry. There is an eccentric 40% stenosis to the mid left circumflex artery. 4. Right coronary artery: The RCA had a 99% ostial stenosis with moderate calcification, the mid r ight coronary artery appeared to have a 70% stenosis that was eccentric. The remainder of the vesse l was filled by competitive flow from collateral flow from the left anterior descending artery. IMPRESSION: 1. Critical stenosis to the ostium of the right coronary artery with a 99% stenosis with moderate c alcification. There was also a significant stenosis to the mid right coronary. The distal right co ronary was fed by competitive flow from collateral flow from the left anterior descending artery. 2. Noncritical disease to the left anterior descending artery and left circumflex artery. RECOMMENDATION: The patient will continue on maximum medical therapy for her coronary artery diseas e and atrial fibrillation. At this time, the patient will not undergo stenting to her right coronar y artery both because of significant collateral flow from the LAD and she is at increased risk of bl eeding from dual- antiplatelet therapy. The patient will follow up with Dr. Jimmie de león g her atrial fibrillation and coronary artery disease. [id number]/[facility] #: [id number]
[2016-10-02] MEDS: HYDROcodone/ACETAMIN 5-325 MG* 1 TAB PO PRN ×5 (03:10→21:53)
[2016-10-02] MEDS: Dronedarone TAB* 400 MG PO SCH ×2 (04:56→16:27)
[2016-10-02] MEDS: Heparin VIAL(*) 5000 UNITS/ML VIAL (FIVE THOUSAND) SUBCUT SCH ×3 (04:56→21:55)
[2016-10-02] MEDS: HYDROmorphone* 1 MG/ML 1 ML SYR IV SLOW PU PRN ×3 (04:56→19:49)
[2016-10-02 06:09] LABS: Hematocrit 28 % (35-47); Hemoglobin 9.5 g/dl (12.0-16.0); Mean Corpuscular HGB Conc 34 g/dl (31-36); Mean Corpuscular Hemoglobin 31 pg (27-31); Mean Corpuscular Volume 92 fL (80-97); Mean Platelet Volume 8 um3 (7.4-10.4); Red Blood Count 3.06 10^6/ul (4.0-5.4); Red Cell Distribution Width 15 % (10.5-15); White Blood Count 8.5 10^3/ul (3.5-10.8)
[2016-10-02] MEDS: Levothyroxine TAB* 137 MCG TAB PO SCH (06:22)
[2016-10-02] MEDS: Mometasone/Formoter 200/5 MDI INH SCH ×2 (07:51→20:28)
[2016-10-02] MEDS: Fluticasone NASAL SPRAY 50MCG* 16 gm SPRAY BTL BOTH NARES SCH (08:23)
[2016-10-02] MEDS: Docusate CAP* 100 MG PO SCH ×2 (08:24→21:55)
[2016-10-02] MEDS: Cetirizine* 10 MG TAB PO PRN ×2 (08:24→21:55)
[2016-10-02] MEDS: Senna TAB PO SCH ×2 (08:24→21:55)
[2016-10-02] MEDS: Aspirin EC Low Dose* 81 MG TAB.EC PO SCH (08:24)
[2016-10-02] MEDS: Cyanocobalamin TAB* 500 MCG PO SCH (08:25)
[2016-10-02] MEDS: Omeprazole CAP* 20 MG PO SCH ×2 (08:25→21:53)
[2016-10-02] MEDS: Metoprolol Tartrate TAB* 25 MG PO SCH ×2 (08:26→21:57)
[2016-10-02] MEDS: Nitroglycerin 0.2 MG/HR PATCH* (5 MG) TRANSDERM SCH (08:27)
--- NOTE | 2016-10-02 11:06 | PN ---
Subjective Date of Service: 10/02/16 - CC: CP Interval History: The patient has much improved c/w last week when I last saw her. She is ambulating in her room, to bathroom w/o complaints. No longer needs her walker. She does not understand her anemia. Medications Active Medications: Acetaminophen (Tylenol Tab*) 650 mg PO Q4H PRN PRN Reason: FEVER/PAIN Acetaminophen (Tylenol Tab*) 650 mg PO Q4H PRN PRN Reason: PAIN - MILD Hydrocodone Bitart/Acetaminophen ([place] 5-325 Tab*) 2 tab PO Q4H PRN PRN Reason: PAIN Last Admin: 10/02/16 08:26 Dose: 2 tab Al Hydrox/Mg Hydrox/Simethicone (Maalox Plus*) 30 ml PO Q6H PRN PRN Reason: INDIGESTION Albuterol (Ventolin Hfa Inhaler*) 2 puff INH Q4H PRN PRN Reason: SOB/WHEEZING Last Admin: 09/29/16 00:39 Dose: 2 puff Aspirin (Aspirin Ec Low Dose*) 81 mg PO DAILY [facility] Last Admin: 10/02/16 08:24 Dose: 81 mg Cetirizine HCl (Zyrtec*) 10 mg PO DAILY PRN PRN Reason: ALLERGIES Last Admin: 10/02/16 08:24 Dose: 10 mg Cyanocobalamin (Vitamin B12 Tab*) 1,000 mcg PO DAILY [facility] Last Admin: 10/02/16 08:25 Dose: 1,000 mcg Docusate Sodium (Colace Cap*) 100 mg PO BID [facility] Last Admin: 10/02/16 08:24 Dose: 100 mg Dronedarone (Multaq Tab*) 400 mg PO 0500,1700 [facility] Last Admin: 10/02/16 04:56 Dose: 400 mg Fluticasone Propionate (Flonase Nasal [place] 50mcg*) 2 spray BOTH NARES DAILY [facility] Last Admin: 10/02/16 08:23 Dose: 2 spray Heparin Sodium (Porcine) (Heparin Vial(*)) 5,000 units SUBCUT Q8HR [facility] Last Admin: 10/02/16 04:56 Dose: 5,000 units Hydromorphone HCl (Dilaudid Iv*) 1 mg IV SLOW PU Q4H PRN PRN Reason: PAIN Last Admin: 10/02/16 04:56 Dose: 1 mg Sodium Chloride (Ns 0.9% 1000 Ml*) 1,000 mls @ 100 mls/hr IV .per rate [facility] Levothyroxine Sodium (Synthroid Tab*) 137 mcg PO DAILY@0600 [facility] Last Admin: 10/02/16 06:22 Dose: 137 mcg Metoprolol Tartrate (Lopressor Tab*) 12.5 mg PO Q12HR [facility] Last Admin: 10/02/16 08:26 Dose: 12.5 mg Mometasone Furoate/Formoterol Fumar (Dulera 200/5 Mdi*) 1 puff INH BID [facility] Last Admin: 10/02/16 07:51 Dose: 1 puff Montelukast Sodium (Singulair Tab*) 10 mg PO BEDTIME [facility] Last Admin: 10/01/16 21:49 Dose: 10 mg Multi-Ingredient Liniment/Rub (Rafael Pinto*) 1 applic TOPICAL TID PRN PRN Reason: Muscle pain Last Admin: 09/28/16 15:17 Dose: 1 applic Nitroglycerin (Nitroglycerin 5 Mg Patch*) 1 patch TRANSDERM DAILY [facility] Last Admin: 10/02/16 08:27 Dose: 1 patch Omeprazole (Prilosec Cap*) 40 mg PO BID [facility] Last Admin: 10/02/16 08:25 Dose: 40 mg Ondansetron HCl (Zofran Inj*) 4 mg IV Q4H PRN PRN Reason: NAUSEA/VOMITING Pharmacy Profile Note (Nitro Patch/Oint Remove*) 1 note N/A 2100 [facility] Last Admin: 10/01/16 21:57 Dose: 1 note Pramipexole Dihydrochloride (Mirapex Tab*) 1 mg PO BEDTIME [facility] Last Admin: 10/01/16 21:48 Dose: 1 mg Rosuvastatin Calcium (Crestor (Nf)) 20 mg PO BEDTIME [facility] Last Admin: 10/01/16 21:48 Dose: 20 mg Senna (Senokot Tab*) 1 tab PO BID [facility] Last Admin: 10/02/16 08:24 Dose: 1 tab Venlafaxine HCl (Effexor Xr Cap*) 112.5 mg PO 2100 [facility] Last Admin: 10/01/16 21:48 Dose: 112.5 mg Objective Vital Signs: Temp Pulse Resp BP Pulse Ox 97.5 F 68 15 166/67 98 03/15/17 07:40 10/02/16 09:07 10/02/16 09:07 10/02/16 07:40 10/02/16 09:07 Oxygen Devices in Use Now: Nasal Cannula - 2 liters Appearance: obese woman, lying at 15 degrees, comfortable. Eyes: No Scleral Icterus, PERRLA Ears/Nose/Mouth/Throat: Clear Oropharnyx, Mucous Membranes Moist Neck: NL Appearance and Movements; NL JVP, No Thyroid Enlargement, Masses Respiratory: Symmetrical Chest Expansion and Respiratory Effort, Clear to Auscultation Cardiovascular: NL Sounds; No Murmurs; No JVD, RRR Abdominal: No Hepatosplenomegaly - obese, soft, active bowel sounds. Extremities: No Clubbing, Cyanosis - thickened legs, no pitting edema. Skin: No Rash or Ulcers Neurological: Alert and Oriented x 3 Lines/Tubes/Other Access: Clean, Dry and Intact Peripheral IV Laboratory Results: 10/02/16 05:35 09/30/16 09:17 INR (Anticoag Therapy) 0.95 (0.89-1.11) 09/24/16 22:16 APTT 55.5 seconds (26.0-36.3) H 09/28/16 07:23 Total Bilirubin 0.30 mg/dL (0.2-1.0) 09/24/16 22:16 AST 19 U/L (13-39) 09/25/16 00:21 ALT 13 U/L (7-52) 09/24/16 22:16 Alkaline Phosphatase 91 U/L (34-104) 09/24/16 22:16 Total Protein 7.3 g/dL (6.4-8.9) 09/24/16 22:16 Albumin 3.8 g/dL (3.2-5.2) 09/24/16 22:16 Globulin 3.5 g/dL (2-4) 09/24/16 22:16 Albumin/Globulin Ratio 1.1 (1-3) 09/24/16 22:16 Triglycerides 105 mg/dL 09/25/16 09:41 Cholesterol 249 mg/dL 09/25/16 09:41 LDL Cholesterol 174 mg/dL 09/25/16 09:41 HDL Cholesterol 53.6 mg/dL 09/25/16 09:41 TSH 0.54 mcIU/mL (0.34-5.60) 09/24/16 22:16 09/25/16 09/26/16 09/29/16 05:41 11:26 06:20 Troponin I 0.58 H* 0.13 H* 0.05 H* Diagnostic Imaging: Cath 10/01/16: 20% LAD, 40% Cx, 99% ostial, 70 % mid RCA. EKG Data: Tele: NSR. Assessment/Plan 75 yo female presenting with CP and afib, RVR, mild elevation in troponins, ST changes on ECG and CAD risks including dyslipidemia, HTN, obesity. Improved s/p DANIEL guided CV, on Multaq to maintain NSR. Cath yesterday documents critical occlusion at the ostium of RCA and mild disease of the LAD and Cx. Currently on medical management. Points of Discussion: Paroxysmal atrial fibrillation/flutter: Continue Multaq. Per verbal discussion with Dr. Pierre, based on hypercellular BM bx, anticoagulation is OK. For PUD pt not on anticoagulation, but with high risk for recurrent aflutter/fib , I would re evaluate in a month/when OK'd by GI. CAD: Angina free on current medical management and per patient back to her usual level of activity. OK to d/c on medical management with early follow up with Dr. 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 CAD risks: Lipids: Trial of another statin noted (crestor). If statin intolerant then consider welchol or PCSK9 inhibitor as outpatient. HTN: sub optimal control, off diltiazem re: constipation. Consider ACEI if felt OK with CKD, conversion of metoprolol to Coreg. Dr. Alicia's comprehensive note of 10/01/16 reviewed and I agree with her recommendations.
[2016-10-02] MEDS ORDERED: Enalapril TAB* 5 MG PO ONE (14:20)
--- NOTE | 2016-10-02 19:40 | PN ---
Subjective Date of Service: 10/02/16 Interval History: Interviewed and examined patient at bedside; Discussed case with Dr. Caro and Dr. Kaminski ; Reviewed previous notes and radiology results; Patient feeling much better. Family History: Unchanged from Admission Social History: Unchanged from Admission Past Medical History: Unchanged from Admission Objective Active Medications: . Acetaminophen (Tylenol Tab*) 650 mg PO Q4H PRN PRN Reason: FEVER/PAIN Acetaminophen (Tylenol Tab*) 650 mg PO Q4H PRN PRN Reason: PAIN - MILD Hydrocodone Bitart/Acetaminophen ([place] 5-325 Tab*) 2 tab PO Q4H PRN PRN Reason: PAIN Last Admin: 10/02/16 17:44 Dose: 2 tab Al Hydrox/Mg Hydrox/Simethicone (Maalox Plus*) 30 ml PO Q6H PRN PRN Reason: INDIGESTION Albuterol (Ventolin Hfa Inhaler*) 2 puff INH Q4H PRN PRN Reason: SOB/WHEEZING Last Admin: 09/29/16 00:39 Dose: 2 puff Aspirin (Aspirin Ec Low Dose*) 81 mg PO DAILY [facility] Last Admin: 10/02/16 08:24 Dose: 81 mg Cetirizine HCl (Zyrtec*) 10 mg PO DAILY PRN PRN Reason: ALLERGIES Last Admin: 10/02/16 08:24 Dose: 10 mg Cyanocobalamin (Vitamin B12 Tab*) 1,000 mcg PO DAILY [facility] Last Admin: 10/02/16 08:25 Dose: 1,000 mcg Docusate Sodium (Colace Cap*) 100 mg PO BID [facility] Last Admin: 10/02/16 08:24 Dose: 100 mg Dronedarone (Multaq Tab*) 400 mg PO 0500,1700 [facility] Last Admin: 10/02/16 16:27 Dose: 400 mg Fluticasone Propionate (Flonase Nasal Berwind 50mcg*) 2 spray BOTH NARES DAILY [facility] Last Admin: 10/02/16 08:23 Dose: 2 spray Heparin Sodium (Porcine) (Heparin Vial(*)) 5,000 units SUBCUT Q8HR [facility] Last Admin: 10/02/16 13:42 Dose: 5,000 units Hydromorphone HCl (Dilaudid Iv*) 1 mg IV SLOW PU Q4H PRN PRN Reason: PAIN Last Admin: 10/02/16 12:12 Dose: 1 mg Levothyroxine Sodium (Synthroid Tab*) 137 mcg PO DAILY@0600 [facility] Last Admin: 10/02/16 06:22 Dose: 137 mcg Lisinopril (Prinivil Tab*) 20 mg PO DAILY [facility] Metoprolol Tartrate (Lopressor Tab*) 12.5 mg PO Q12HR [facility] Last Admin: 10/02/16 08:26 Dose: 12.5 mg Mometasone Furoate/Formoterol Fumar (Dulera 200/5 Mdi*) 1 puff INH BID [facility] Last Admin: 10/02/16 07:51 Dose: 1 puff Montelukast Sodium (Singulair Tab*) 10 mg PO BEDTIME [facility] Last Admin: 10/01/16 21:49 Dose: 10 mg Multi-Ingredient Liniment/Rub (Rafael Pinto*) 1 applic TOPICAL TID PRN PRN Reason: Muscle pain Last Admin: 09/28/16 15:17 Dose: 1 applic Nitroglycerin (Nitroglycerin 5 Mg Patch*) 1 patch TRANSDERM DAILY [facility] Last Admin: 10/02/16 08:27 Dose: 1 patch Omeprazole (Prilosec Cap*) 40 mg PO BID [facility] Last Admin: 10/02/16 08:25 Dose: 40 mg Ondansetron HCl (Zofran Inj*) 4 mg IV Q4H PRN PRN Reason: NAUSEA/VOMITING Pharmacy Profile Note (Nitro Patch/Oint Remove*) 1 note N/A 2100 [facility] Last Admin: 10/01/16 21:57 Dose: 1 note Pramipexole Dihydrochloride (Mirapex Tab*) 1 mg PO BEDTIME [facility] Last Admin: 10/01/16 21:48 Dose: 1 mg Rosuvastatin Calcium (Crestor (Nf)) 20 mg PO BEDTIME [facility] Last Admin: 10/01/16 21:48 Dose: 20 mg Senna (Senokot Tab*) 1 tab PO BID [facility] Last Admin: 10/02/16 08:24 Dose: 1 tab Venlafaxine HCl (Effexor Xr Cap*) 112.5 mg PO 2100 [facility] Last Admin: 10/01/16 21:48 Dose: 112.5 mg . Vital Signs 10/01/16 10/01/16 10/01/16 20:00 20:08 21:15 Temperature Pulse Rate 76 76 Respiratory 18 Rate Blood Pressure 191/81 (mmHg) O2 Sat by Pulse 96 Oximetry 10/01/16 10/01/16 10/02/16 22:57 23:00 01:00 Temperature 98.1 F Pulse Rate 64 Respiratory 20 18 20 Rate Blood Pressure 155/58 (mmHg) O2 Sat by Pulse 95 Oximetry Oxygen Devices in Use Now: Nasal Cannula - 2 liters Appearance: elderly, frail. deconditioned. Eyes: No Scleral Icterus Ears/Nose/Mouth/Throat: NL Teeth, Lips, Gums Neck: NL Appearance and Movements; NL JVP Respiratory: Symmetrical Chest Expansion and Respiratory Effort Cardiovascular: NL Sounds; No Murmurs; No JVD Abdominal: NL Sounds; No Tenderness; No Distention Lymphatic: No Cervical Adenopathy Extremities: - - + p[eripheral edema Skin: No Rash or Ulcers Neurological: Alert and Oriented x 3 Lines/Tubes/Other Access: Clean, Dry and Intact Peripheral IV Nutrition: Taking PO's Result Diagrams: 10/02/16 05:35 09/30/16 09:17 Microbiology and Other Data: Microbiology 09/28/16 11:45 Stool Gross Appearance - Final Stool Stool Occult Blood ([facility]) - Final Assess/Plan/Problems-Billing . Assessment: Mrs. Martin is a 75yo F with PMH of chronic constipation, asthma, restless leg syndrome, essential tremor, chronic pain, GERD, hypothyroidism, chronic lymphedema, who presented to ED with c/o CP, found to be in Afib. Current Medications: - Acetaminophen (Tylenol Tab) 650 mg PO Q4H PRN FEVER/PAIN - Acetaminophen (Tylenol Tab*) 650 mg PO Q4H PRN PAIN - MILD - Hydrocodone Bitart/Acetaminophen ([place] 5-325 Tab*) 2 tab PO Q4H PRN PAIN - Al Hydrox/Mg Hydrox/Simethicone (Maalox Plus*) 30 ml PO Q6H PRN INDIGESTION -Albuterol (Ventolin Hfa Inhaler*) 2 puff INH Q4H PRN SOB/WHEEZING - Aspirin (Aspirin Ec Low Dose*) 81 mg PO DAILY [facility] - Cetirizine HCl (Zyrtec*) 10 mg PO DAILY PRN ALLERGIES - Cyanocobalamin (Vitamin B12 Tab*) 1,000 mcg PO DAILY [facility] - Docusate Sodium (Colace Cap*) 100 mg PO BID [facility] - Dronedarone (Multaq Tab*) 400 mg PO 0500,1700 [facility] - Fluticasone Propionate (Flonase Nasal Berwind 50mcg*) 2 spray BOTH NARES DAILY [facility] - Heparin Sodium (Porcine) (Heparin Vial(*)) 5,000 units SUBCUT Q8HR [facility] - Hydromorphone HCl (Dilaudid) 1 mg IV SLOW PU Q4H PRN PAIN - Levothyroxine Sodium (Synthroid Tab) 137 mcg PO DAILY@0600 [facility] - Lisinopril (Prinivil Tab) 20 mg PO DAILY [facility] - Metoprolol Tartrate (Lopressor Tab) 12.5 mg PO Q12HR [facility] - Mometasone Furoate/Formoterol Fumar (Dulera 200/5 Mdi) 1 puff INH BID [facility] - Montelukast Sodium (Singulair Tab) 10 mg PO BEDTIME [facility] - Multi-Ingredient Liniment/Rub (Rafael Pinto) 1 applic TOPICAL TID PRN Muscle pain - Nitroglycerin (Nitroglycerin 5 Mg Patch) 1 patch TRANSDERM DAILY [facility] - Omeprazole (Prilosec Cap) 40 mg PO BID [facility] - Ondansetron HCl (Zofran Inj) 4 mg IV Q4H PRN NAUSEA/VOMITING - Pramipexole Dihydrochloride (Mirapex Tab) 1 mg PO BEDTIME [facility] - Rosuvastatin Calcium (Crestor (Nf)) 20 mg PO BEDTIME [facility] - Senna (Senokot Tab*) 1 tab PO BID [facility] - Venlafaxine HCl (Effexor Xr Cap) 112.5 mg PO 2100 [facility] - Patient Problems (1) Atrial fibrillation Current Visit: Yes Status: Acute Priority: High Code(s): I48.91 - UNSPECIFIED ATRIAL FIBRILLATION Comment: - S/p cardioversion 09/25/16 - flipped in to A flutter last 09/25/16 with symptoms , now back in sinus with Multaq and low dose metoprolol. - Had episode of APC vs slow a flutter 09/28/16, but asymptomatic. - Continue to monitor on Telemetry. - Dr. Hilliard (cardiology) - recommended holding off on anticoagulation at this point due to risk of bleeding, but would anticoagulate if she flips back into A flutter. (2) NSTEMI (non-ST elevated myocardial infarction) Current Visit: Yes Status: Acute Priority: High Code(s): I21.4 - NON-ST ELEVATION (NSTEMI) MYOCARDIAL INFARCTION Comment: - Troponin elevation likely secondary to Afib, but patient has risk factors for CAD. - Stress test shows inferior wall ischemia that correlates with EKG changes. - Cardiac cath showed 95% RCA stenosis, but with left to right collaterals. Recommendation now is to continue medical management with Aspirin, statin, metoprolol. She will f/u as outpatient with her county agent (Dr. Price in [place]) - if she develops symptoms again, may need stent placement. (3) Anemia Current Visit: Yes Status: Acute Priority: High Code(s): D64.9 - ANEMIA, UNSPECIFIED Comment: - Patient's H/H was slowly drifting down - today 03/13. S/p 2 PRBC as she is in the recent phase of a NSTEMI. - Although she denies black stools at this time, she reports a remote history of gastric ulcer/hiatal hernia. - Anemia w/u reviewed and stool guaiac was negative. - She states she had anemia w/u with Dr. Romero as outpatient, including 2 bone marrow biopsies. Last one in 2014 showed hypercellular BM. Will d/w hematology as her anemia is a point of concern prior to cardiac cath. - GI input appreciated - EGD showed small gastric ulcer, non-bleeding. (4) Chest pain Current Visit: Yes Status: Acute Priority: High Code(s): R07.9 - CHEST PAIN, UNSPECIFIED Comment: - not currently - was associated with AF/RVR/demand ischemia - cath results noted; medical management strategy implemented. (5) Gastric ulcer Current Visit: Yes Status: Acute Code(s): K25.9 - GASTRIC ULCER, UNSP ACUTE OR CHRONIC, W/O HEMOR OR PERF Comment: - EGD showed small pyloric ulcer, no signs of active bleeding. - Continue PPI BID. (6) Obstructive sleep apnea Current Visit: Yes Status: Acute Priority: High Code(s): G47.33 - OBSTRUCTIVE SLEEP APNEA (ADULT) (PEDIATRIC) Comment: - Patient wears supplemental O2 overnight, but not CPAP. - Overnight oximetry on her usual amount of O2 showed no significant hypoxemia. (7) HLD (hyperlipidemia) Current Visit: Yes Status: Acute Code(s): E78.5 - HYPERLIPIDEMIA, UNSPECIFIED Comment: - LDL>170 - states she cannot tolerate Atorvastatin or Simvastatin due to LE pain and weakness, but willing to try Rosuvastatin. - Dr. Kaminski invokes possibly PCSK9 inhibitor therapy; will defer to outpatient setting. (8) Hypothyroidism Current Visit: Yes Status: Acute Priority: High Code(s): E03.9 - HYPOTHYROIDISM, UNSPECIFIED Comment: - TSH 0.54 - continue Levothyroxine. (9) DVT prophylaxis Current Visit: Yes Status: Acute Priority: High Code(s): [id number] - Comment: - SQ heparin. (10) Full code status Current Visit: Yes Status: Acute Code(s): Z78.9 - OTHER SPECIFIED HEALTH STATUS SNOMED Code(s): 795118240 (11) Hypertension Current Visit: Yes Status: Acute Priority: High Code(s): I10 - ESSENTIAL ( PRIMARY) HYPERTENSION Comment: - SBP > 180 today - Cautiously start JERRY; would bestow CAD benefit. - Cr noted ~ 1.5 -- follow Status and Disposition: Inpatient.
[2016-10-02] MEDS: Albuterol HFA INHALER* 8 gm MDI INH PRN (21:51)
[2016-10-02] MEDS: Pramipexole TAB* 0.5 MG PO SCH (21:54)
[2016-10-02] MEDS: Venlafaxine EXT RELEASE CAP* 37.5 MG PO SCH (21:54)
[2016-10-02] MEDS: Montelukast Sodium TAB* 10 MG PO SCH (21:55)
[2016-10-02] MEDS: CMCS: Rosuvastatin (NF) 20 MG TAB PO SCH (21:55)
[2016-10-02] MEDS: Nitro Patch/OINT Remove SCH (22:12)
[2016-10-03] MEDS: HYDROcodone/ACETAMIN 5-325 MG* 1 TAB PO PRN (02:39)
[2016-10-03] MEDS: HYDROmorphone* 1 MG/ML 1 ML SYR IV SLOW PU PRN (05:39)
[2016-10-03] MEDS: Dronedarone TAB* 400 MG PO SCH (05:40)
[2016-10-03] MEDS: Levothyroxine TAB* 137 MCG TAB PO SCH (05:40)
[2016-10-03] MEDS: Heparin VIAL(*) 5000 UNITS/ML VIAL (FIVE THOUSAND) SUBCUT SCH (05:40)
[2016-10-03] MEDS: Omeprazole CAP* 20 MG PO SCH (07:54)
[2016-10-03] MEDS: Cyanocobalamin TAB* 500 MCG PO SCH (07:55)
[2016-10-03] MEDS: Metoprolol Tartrate TAB* 25 MG PO SCH (07:56)
[2016-10-03] MEDS: Senna TAB PO SCH (07:56)
[2016-10-03] MEDS: Aspirin EC Low Dose* 81 MG TAB.EC PO SCH (07:56)
[2016-10-03] MEDS: Docusate CAP* 100 MG PO SCH (07:56)
[2016-10-03] MEDS: Nitroglycerin 0.2 MG/HR PATCH* (5 MG) TRANSDERM SCH (07:57)
[2016-10-03] MEDS: Cetirizine* 10 MG TAB PO PRN (08:02)
[2016-10-03] MEDS: Fluticasone NASAL SPRAY 50MCG* 16 gm SPRAY BTL BOTH NARES SCH (08:02)
[2016-10-03] MEDS ORDERED: Lisinopril TAB* 10 MG PO SCH (09:00)
[2016-10-03] MEDS: Mometasone/Formoter 200/5 MDI INH SCH (10:30)
[2016-10-03 11:43] VITALS: BP 169/65
--- NOTE | 2016-10-04 01:44 | DS ---
DISCHARGE SUMMARY: DATE OF ADMISSION: 09/25/16 DATE OF DISCHARGE: 10/03/16 PRIMARY CARE PROVIDER: Dr. Manas Villeda. PRINCIPAL DISCHARGE DIAGNOSES: 1. Atrial flutter with rapid ventricular response and subsequent non-ST elevation myocardial infarction (non-STEMI). 2. Concomitant anemia secondary to GI bleeding, in turn secondary to peptic ulcer disease. 3. Coronary artery disease with multiple risk factors and abnormal stress test during this hospitalization with strategy of medical management implemented. SECONDARY DIAGNOSES: 1. Chronic constipation. 2. Asthma. 3. Restless legs syndrome. 4. Essential tremor. 5. Chronic pain. 6. Seasonal allergies. 7. Gastroesophageal reflux disease. 8. Hypothyroidism. 9. Chronic lymphedema. 10. Multiple headaches/left arm pain/teeth pain. DISCHARGE MEDICATION REGIMEN: New Medications: 1. Aspirin enteric-coated 81 mg per mouth daily. 2. Dronedarone/Multaq 400 mg by mouth twice daily. 3. Lisinopril 20 mg by mouth daily. 4. Metoprolol tartrate 12.5 mg by mouth twice daily. 5. Rosuvastatin/Crestor 20 mg by mouth at bedtime. Continued: 1. Montelukast/Singulair 10 mg by mouth daily. 2. Triamcinolone acetonide/Nasacort 55 mcg nasally twice daily. 3. Potassium chloride 20 mEq by mouth at bedtime. 4. Furosemide 40 mg by mouth daily. 5. Omeprazole 40 mg by mouth twice daily. 6. Levothyroxine 137 mcg by mouth daily. 7. Cetirizine 10 mg by mouth at bedtime. 8. Alpine 10/325 mg tabs 1 tab every 4 hours p.r.n. pain. 9. Venlafaxine/Effexor XR 37.5 mg by mouth at bedtime. 10. Torsemide 60 mg by mouth daily. HISTORY OF PRESENT ILLNESS AND HOSPITAL COURSE: Please see the H and P by Dr. Ramona Ashley on 09/25/16. In brief, Ms. Martin is a 75-year-old female with a past medical history of asthma, chronic lymphedema, and the other entities above, who came to the emergency room with chest pain and headache. The patient has accompanying pain with her headache, which waxes and wanes. This was longer in duration, this episode. The patient does have dyspnea on exertion and a recent sleep study demonstrated mild obstructive sleep apnea and she was on oxygen at bedtime. The patient was found to be in atrial fibrillation with rapid ventricular response. She was given a diltiazem bolus 20 mg and started on a drip. She was admitted to the hospital for this. Her troponin was 0.05 at admission and increased to a peak of 0.58, consistent with a non-ST elevation HI. Her heart rate was controlled. She was diuresed. She was noted to have multiple coronary risk factors. Cardiology consultation was attained. She proceeded with a nuclear stress test showing a constellation of findings concerning for a foci of stress- induced ischemia involving the mid to basilar segments of the inferior wall and basilar segments of the lateral wall. Her ejection fraction was preserved. She continued with aggressive medical management, including more intense hyperlipidemia control. She is on an aspirin. She has concurrent peptic ulcer disease and fairly significant anemia and actually received 2 units of packed red blood cells given her downward drifting hemoglobin in the setting of a non-ST elevation HI. Her hemoglobin responded significantly. She was not started on anticoagulation because of her significant anemia. The patient did not remain in atrial fibrillation and this was part of the decision making. She was started on Multaq and low-dose metoprolol. The patient was monitored on telemetry and she remains in normal sinus rhythm. The patient is ambulating very well. Her functional status is much better than at admission. Other notable considerations is that she is not on CPAP, but is on oxygen overnight. She has not demonstrated any significant hypoxemia during this hospitalization, but then she will be watched in the outpatient setting. For her hyperlipidemia, her LDL is still greater than 170 and she is trying Crestor, but that is not a sure thing at this point. Dr. Kaminski recommended potentially a PCSK9 inhibitor therapy and that can be deferred to the outpatient setting. She is continuing on her hypothyroidism replacement and she is going to follow up with Dr. Villeda next week as an outpatient. She was given return to ED instructions and will come back to the hospital for any worsening symptoms including but not limited to chest pain, shortness of breath, lightheadedness, or any other worrisome symptoms, and she states she will comply with that instruction. TIME SPENT: Total time taken to discharge Ms. Martin was 45 minutes, greater than half that time spent going over the discharge instructions and going over the major events of the hospitalization and preparing the discharge paperwork. CONDITION ON DISCHARGE: Stable. CC: Dr. Villeda* [id number]/CPS #: [id number] PAMELA
== END 2016-10-03 13:08 | disposition home or self-care (01) | DRG 280 ==
LOC: ED 21:15 → ICU 09-25 00:19 → MEDTELE 09-25 02:18
PROVIDERS: ADMIT Pediatrics; ATTEND Internal Medicine
PROC: B24BZZ4 Ultrasonography of Heart with Aorta, Transesophageal (ICD-10-PCS; 2016-09-25)
PROC: 5A2204Z Restoration of Cardiac Rhythm, Single (ICD-10-PCS; 2016-09-25)
PROC: 30233N1 Transfusion of Nonautologous Red Blood Cells into Peripheral Vein, Percutaneous Approach (ICD-10-PCS; 2016-09-29)
PROC: 0DJ08ZZ Inspection of Upper Intestinal Tract, Via Natural or Artificial Opening Endoscopic (ICD-10-PCS; principal; 2016-09-30)
PROC: 4A023N7 Measurement of Cardiac Sampling and Pressure, Left Heart, Percutaneous Approach (ICD-10-PCS; 2016-10-01)
PROC: B211YZZ Fluoroscopy of Multiple Coronary Arteries using Other Contrast (ICD-10-PCS; 2016-10-01)
DX: I21.4 Non-ST elevation (NSTEMI) myocardial infarction (principal); K25.4 Chronic or unspecified gastric ulcer with hemorrhage; N17.9 Acute kidney failure, unspecified; I48.92 Unspecified atrial flutter; I48.0 Paroxysmal atrial fibrillation; I12.9 Hypertensive chronic kidney disease with stage 1 through stage 4 chronic kidney disease, or unspecified chronic kidney disease; Z68.43 Body mass index [BMI] 50.0-59.9, adult; G25.0 Essential tremor; I25.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 native coronary artery without angina pectoris; K29.70 Gastritis, unspecified, without bleeding; E03.9 Hypothyroidism, unspecified; G47.33 Obstructive sleep apnea (adult) (pediatric); J45.909 Unspecified asthma, uncomplicated; G25.81 Restless legs syndrome; R51 Headache; K59.00 Constipation, unspecified; K21.9 Gastro-esophageal reflux disease without esophagitis; N18.3 Chronic kidney disease, stage 3 (moderate); I89.0 Lymphedema, not elsewhere classified; D50.0 Iron deficiency anemia secondary to blood loss (chronic); E78.5 Hyperlipidemia, unspecified; M79.7 Fibromyalgia; M79.602 Pain in left arm; K08.89 Other specified disorders of teeth and supporting structures; E66.01 Morbid (severe) obesity due to excess calories; Z88.8 Allergy status to other drugs, medicaments and biological substances; Z88.5 Allergy status to narcotic agent; Z91.041 Radiographic dye allergy status; Z82.49 Family history of ischemic heart disease and other diseases of the circulatory system; Z79.82 Long term (current) use of aspirin
CPT/HCPCS: 36415; 71020; 78452; 80048; 80053; 80061; 81003; 81015; 82272; 82607; 82728; 82746; 83036; 83540; 83550; 83605; 83735; 84443; 84484; 84520; 85025; 85027; 85379; 85610; 85730; 86850; 86870; 86880; 86900; 86901; 86922; 92960; 93005; 93017; 93312; 93325; 93454; 94640; 94760; 94762; A9270-GY; A9502; C1760; C1887; J0280; J1170; J1644; J2001; J2250; J2270; J2310; J2405; J2785; J2930; J3010; P9040

== ENCOUNTER 2016-10-05 23:57 | Emergency (ER) | payer MEDICARE ==
[2016-10-06] MEDS ORDERED: NS 0.9% 1000 ML* 1,000 ML IV SCH (01:00)
[2016-10-06 01:22] LABS: Hematocrit 33 % (35-47); Mean Corpuscular HGB Conc 34 g/dl (31-36); Mean Corpuscular Hemoglobin 31 pg (27-31); Mean Corpuscular Volume 91 fL (80-97); Mean Platelet Volume 8 um3 (7.4-10.4); Red Blood Count 3.57 10^6/ul (4.0-5.4); Red Cell Distribution Width 15 % (10.5-15); White Blood Count 8.1 10^3/ul (3.5-10.8)
[2016-10-06 01:30] LABS: Urine Bacteria Absent (Absent); Urine Bilirubin Negative (Negative); Urine Glucose Negative (Negative); Urine Nitrite Negative (Negative)
[2016-10-06 01:38] LABS: Albumin 3.7 g/dL (3.2-5.2); BUN/Creatinine Ratio 16.1 (8-20); C Reactive Protein 83.49 mg/L (< 5.00); Calcium 9.2 mg/dL (8.6-10.3); EGFR African American 57.3 (>60); EGFR Non-African American 44.5 (>60); Globulin 3.4 g/dL (2-4); Magnesium 1.7 mg/dL (1.9-2.7); Potassium 4.6 mmol/L (3.5-5.0); Total Bilirubin 0.3 mg/dL (0.2-1.0); Total Protein 7.1 g/dL (6.4-8.9)
[2016-10-06 01:40] LABS: Troponin I 0.02 ng/mL (<0.04)
[2016-10-06 02:08] LABS: TSH (Thyroid Stimulating Horm) 2.62 mcIU/mL (0.34-5.60)
--- NOTE | 2016-10-06 02:32 | ED ---
Keron Heaton Janilya, scribed for Foreign Howard MD on 10/06/16 at 0035 . Headache - HPI Summary HPI Summary: A 75 y/o female came in to [facility] presenting w/ a gradual onset of constant headache that started tonight at 2130. SANZ located in frontal and parietal regions. Pt states she was in a hospital last week for afib for 9 days. She was discharged on September. She was told if she were to start having a headache, to return to the hospital immediately. In addition to SANZ today, pt states her chest felt "fluttery" and abnormal. The CP does not feel like previous CP that was more stabbing and severe. While at the hospital, pt reports she caught a cold and started coughing on Sunday 10/01 or Friday. Her cough produces white or clear mucus. Pt also reports postnasal drip, runny nose, sore throat for 2 days. Pt additionally reports pedal edema. Pt denies abd pain, nausea, diaphoresis. - History Of Current Complaint Chief Complaint: EDHeadache Stated Complaint: HEADACHE/HIGH BLOOD PRESSURE Hx Obtained From: Patient Onset/Duration: Sudden Onset, Started hours ago, Still Present Initially Headache Was: Moderate Currently Pain Is: Moderate Timing: Constant Location of Headache: Frontal, Temporal Aggravating Factor: Nothing Allevating Factors: Nothing - Allergies/Home Medications Allergies/Adverse Reactions: Allergies Allergy/AdvReac Type Severity Reaction Status Date / Time Tiagabine [From Gabitril] Allergy Mild Rash Verified 10/06/16 00:09 Amitriptyline Allergy Unknown Unknown Verified 10/06/16 00:09 Reaction Details Atorvastatin [From Lipitor] Allergy Unknown Unknown Verified 10/06/16 00:09 Reaction Details Iodinated Contrast Media Allergy Unknown Unknown Verified 10/06/16 00:09 Reaction Details Misoprostol [From Cytotec] Allergy Unknown Unknown Verified 10/06/16 00:09 Reaction Details Theophylline [From Uniphyl] Allergy Unknown Unknown Verified 10/06/16 00:09 Reaction Details Tizanidine [From Zanaflex] Allergy Unknown Unknown Verified 10/06/16 00:09 Reaction Details Fentanyl and Related Allergy Dizziness Verified 10/06/16 00:09 PMH/Surg Hx/FS Hx/Imm Hx Previously Healthy: Yes Endocrine/Hematology History: Reports: Hx Thyroid Disease Denies: Hx Diabetes Cardiovascular History: Reports: Hx Angina, Hx Hypercholesterolemia Denies: Hx Coronary Artery Disease, Hx Hypertension, Hx Myocardial Infarction , Hx Pacemaker/ICD, Hx Valvular Heart Disease Respiratory History: Reports: Hx Asthma Denies: Hx Chronic Obstructive Pulmonary Disease (COPD) GI History: Reports: Hx Gastroesophageal Reflux Disease History: Denies: Hx Renal Disease Musculoskeletal History: Reports: Hx Arthritis, Hx Back Problems, Hx Fibromyalgia Sensory History: Reports: Hx Cataracts, Hx Hearing Aid - Rt EAR, Hx Hearing Problem Opthamlomology History: Reports: Hx Cataracts Neurological History: Reports: Hx Headaches Psychiatric History: Denies: Hx Panic Disorder - Surgical History Surgery Procedure, Year, and Place: TSP -LSP GARDNER RODS/SCREWS- 2010 - - TOTAL OF 5 SURGERIES LAST ONE 2010 Xs 2. BILATERAL HIP REPLACEMENT 2005/2006. TARSAL TUNNEL - Lt WART -REMOVED FROM EYELID. CARPAL TUNNEL - FLORIAN Lt KNEE -2 & Rt KNEE - 3 TIMES - ARTHROSCOPIC. CHOLECYSTECTOMY TONSILECTOMY- as child. HERNIA. APPENDECTOMY. FLORIAN BREAST REDUCTION. Lt THUMB - GANGLION CYST. Rt ARM - "LUMP" REMOVED- Infectious Disease History: No Infectious Disease History: Denies: Traveled Outside the [place] in Last 30 Days - Family History Known Family History: Positive: Cardiac Disease - Father used to use NTG. 3 brothers have had CABG. 4th had CVA and [place]., Diabetes - Social History Occupation: Retired Alcohol Use: Rare Hx Substance Use: No Substance Use Type: Reports: None Hx Tobacco Use: No Smoking Status (MU): Never Smoked Tobacco Review of Systems Positive: Sore Throat, Nasal Discharge, Other - postnasal drip Positive: Chest Pain Positive: Cough Positive: Edema - pedal Positive: Headache All Other Systems Reviewed And Are Negative: Yes Physical Exam Triage Information Reviewed: Yes Vital Signs On Initial Exam: Initial Vitals Temp Pulse Resp BP Pulse Ox 98.1 F 86 16 176/89 96 10/05/16 23:58 10/05/16 23:58 10/05/16 23:58 10/05/16 23:58 10/05/16 23:58 Vital Signs Reviewed: Yes Appearance: Positive: Well-Appearing, No Pain Distress Skin: Positive: Warm, Skin Color Reflects Adequate Perfusion, Dry Head/Face: Positive: Normal Head/Face Inspection Eyes: Positive: EOMI, CECIL ENT: Positive: Normal ENT inspection Neck: Positive: Supple, Nontender Respiratory/Lung Sounds: Positive: Clear to Auscultation, Breath Sounds Present Cardiovascular: Positive: RRR Abdomen Description: Positive: Nontender, Soft Bowel Sounds: Positive: Present Musculoskeletal: Positive: Strength/ROM Intact, Edema Left - pedal, Edema Right - pedal Neurological: Positive: Normal, Sensory/Motor Intact, Alert, Oriented to Person Place, Time Psychiatric: Positive: Affect/Mood Appropriate Diagnostics - Vital Signs Vital Signs Temp Pulse Resp BP Pulse Ox 10/05/16 23:58 98.1 F 86 16 176/89 96 - Laboratory Lab Results: Lab Results 10/06/16 10/06/16 10/06/16 Range/Units 00:24 01:10 01:10 WBC 8.1 (3.5-10.8) 10^3/ul RBC 3.57 L (4.0-5.4) 10^6/ul Hgb 11.0 L (12.0-16.0) g/dl Hct 33 L (35-47) % MCV 91 (80-97) fL MCH 31 (27-31) pg MCHC 34 (31-36) g/dl RDW 15 (10.5-15) % Plt Count 186 (150-450) 10^3/ul MPV 8 (7.4-10.4) um3 Neut % (Auto) 82.4 (38-83) % Lymph % (Auto) 7.6 L (25-47) % Harding % (Auto) 6.7 (1-9) % Eos % (Auto) 2.7 (0-6) % Baso % (Auto) 0.6 (0-2) % Absolute Neuts (auto) 6.7 (1.5-7.7) 10^3/ul Absolute Lymphs (auto) 0.6 L (1.0-4.8) 10^3/ul Absolute Monos (auto) 0.5 (0-0.8) 10^3/ul Absolute Eos (auto) 0.2 (0-0.6) 10^3/ul Absolute Basos (auto) 0 (0-0.2) 10^3/ul Absolute Nucleated RBC 0 10^3/ul Nucleated RBC % 0 INR (Anticoag Therapy) (0.89-1.11) APTT (26.0-36.3) seconds Sodium 135 (133-145) mmol/L Potassium 4.6 (3.5-5.0) mmol/L Chloride 103 (101-111) mmol/L Carbon Dioxide 22 (22-32) mmol/L Anion Gap 10 (2-11) mmol/L BUN 19 (6-24) mg/dL Creatinine 1.18 H (0.51-0.95) mg/dL Est GFR ( Amer) 57.3 (>60) Est GFR (Non-Af Amer) 44.5 (>60) BUN/Creatinine Ratio 16.1 (8-20) Glucose 143 H (70-100) mg/dL Lactic Acid (0.5-2.0) mmol/L Calcium 9.2 (8.6-10.3) mg/dL Magnesium 1.7 L (1.9-2.7) mg/dL Total Bilirubin 0.30 (0.2-1.0) mg/dL AST 38 (13-39) U/L ALT 27 (7-52) U/L Alkaline Phosphatase 100 (34-104) U/L Total Creatine Kinase 74 (10-223) U/L CK-MB (CK-2) 2.4 (0.6-6.3) ng/mL Troponin I 0.02 (<0.04) ng/mL C-Reactive Protein 83.49 H (< 5.00) mg/L B-Natriuretic Peptide ( - 100) pg/mL Total Protein 7.1 (6.4-8.9) g/dL Albumin 3.7 (3.2-5.2) g/dL Globulin 3.4 (2-4) g/dL Albumin/Globulin Ratio 1.1 (1-3) Lipase 20 (11.0-82.0) U/L TSH 2.62 (0.34-5.60) mcIU/mL Urine Color Yellow Urine Appearance Clear Urine pH 6.0 (5-9) Ur Specific Taylor 1.015 (1.010-1.030) Urine Protein 2+(100 mg/dl) H (Negative) Urine Ketones Negative (Negative) Urine Blood Negative (Negative) Urine Nitrate Negative (Negative) Urine Bilirubin Negative (Negative) Urine Urobilinogen Negative (Negative) Ur Leukocyte Esterase Negative (Negative) Urine WBC (Auto) Trace(0-5/hpf) (Absent) Urine RBC (Auto) 2+(6-10/hpf) H (Absent) Ur Squamous Epith Cells Present H (Absent) Urine Bacteria Absent (Absent) Urine Glucose Negative (Negative) 10/06/16 10/06/16 10/06/16 Range/Units 01:10 01:10 01:39 WBC (3.5-10.8) 10^3/ul RBC (4.0-5.4) 10^6/ul Hgb (12.0-16.0) g/dl Hct (35-47) % MCV (80-97) fL MCH (27-31) pg MCHC (31-36) g/dl RDW (10.5-15) % Plt Count (150-450) 10^3/ul MPV (7.4-10.4) um3 Neut % (Auto) (38-83) % Lymph % (Auto) (25-47) % Harding % (Auto) (1-9) % Eos % (Auto) (0-6) % Baso % (Auto) (0-2) % Absolute Neuts (auto) (1.5-7.7) 10^3/ul Absolute Lymphs (auto) (1.0-4.8) 10^3/ul Absolute Monos (auto) (0-0.8) 10^3/ul Absolute Eos (auto) (0-0.6) 10^3/ul Absolute Basos (auto) (0-0.2) 10^3/ul Absolute Nucleated RBC 10^3/ul Nucleated RBC % INR (Anticoag Therapy) 1.06 (0.89-1.11) APTT 30.7 (26.0-36.3) seconds Sodium (133-145) mmol/L Potassium (3.5-5.0) mmol/L Chloride (101-111) mmol/L Carbon Dioxide (22-32) mmol/L Anion Gap (2-11) mmol/L BUN (6-24) mg/dL Creatinine (0.51-0.95) mg/dL Est GFR ( Amer) (>60) Est GFR (Non-Af Amer) (>60) BUN/Creatinine Ratio (8-20) Glucose (70-100) mg/dL Lactic Acid 0.6 (0.5-2.0) mmol/L Calcium (8.6-10.3) mg/dL Magnesium (1.9-2.7) mg/dL Total Bilirubin (0.2-1.0) mg/dL AST (13-39) U/L ALT (7-52) U/L Alkaline Phosphatase (34-104) U/L Total Creatine Kinase (10-223) U/L CK-MB (CK-2) (0.6-6.3) ng/mL Troponin I (<0.04) ng/mL C-Reactive Protein (< 5.00) mg/L B-Natriuretic Peptide 749 H ( - 100) pg/mL Total Protein (6.4-8.9) g/dL Albumin (3.2-5.2) g/dL Globulin (2-4) g/dL Albumin/Globulin Ratio (1-3) Lipase (11.0-82.0) U/L TSH (0.34-5.60) mcIU/mL Urine Color Urine Appearance Urine pH (5-9) Ur Specific Taylor (1.010-1.030) Urine Protein (Negative) Urine Ketones (Negative) Urine Blood (Negative) Urine Nitrate (Negative) Urine Bilirubin (Negative) Urine Urobilinogen (Negative) Ur Leukocyte Esterase (Negative) Urine WBC (Auto) (Absent) Urine RBC (Auto) (Absent) Ur Squamous Epith Cells (Absent) Urine Bacteria (Absent) Urine Glucose (Negative) Result Diagrams: 10/06/16 01:10 10/06/16 01:10 Lab Statement: Any lab studies that have been ordered have been reviewed, and results considered in the medical decision making process. Headache Course/Dx - Course Assessment/Plan: Pt is a 75 y/o female here w/ a complaint of SANZ. She was told to return to the hospital for this due to having CP and SANZ previously, for which she was hospitalised for 9 days. In addition, pt has cold-like symptoms including runny nose, productive cough, sore throat. Pt is concerned about pneumonia or afib, although CP this time does not feel stabbing or severe than previously. PATIENT'S PRIMARY CONCERN IS URI SX. SHE ALSO HAS BEEN HAVING HEADACHES AND INTERMITTENT FLUTTERY CHEST PAINS. NO CHEST PAIN IN ED. SANZ IS FRONTAL HERE. PATIENT HAS URI SX. DISCUSSED LABS WITH PATIENT/. PATIENT STATES SHE FEELS SAFE GOING HOME. WILL RX DOXYCYCLINE. DISCHARGE HOME STABLE. - Diagnoses Provider Diagnoses: Bronchitis, Headache, Palpitations, Chest pain Discharge - Discharge Plan Condition: Stable Disposition: HOME Prescriptions: DOXYcycline CAP(*) [DOXYcycline 100MG CAP(*)] 100 mg PO BID #19 cap Patient Education Materials: Acute Bronchitis (ED), General Headache (ED), Palpitations (ED) Additional Instructions: FOLLOW UP WITH YOUR DOCTOR. RETURN TO THE EMERGENCY DEPARTMENT FOR ANY WORSENING OF YOUR CONDITION; CHEST PAIN, SHORTNESS OF BREATH, YOU FEEL ILL OR QUESTIONS OR CONCERNS. The documentation as recorded by the Keron schaffer Janilya accurately reflects the service I personally performed and the decisions made by me, Foreign Howard MD.
[2016-10-06] MEDS ORDERED: DOXYcycline CAP(*) 100 MG PO ONE (02:33)
[2016-10-06 03:03] VITALS: BP 184/77
--- NOTE | 2016-10-06 11:04 | RAD ---
Indication: Cough, chest pain. Asthma. Comparison: September 24, 2016 Technique: Upright AP 0057 hours Report: Cardiomegaly. Mild bibasilar linear opacities are most suspicious for subsegmental atelectasis. Unremarkable central pulmonary vasculature. Mildly tortuous thoracic aorta. Grossly clear pleural spaces. Negative for pneumothorax. Thoracic lumbar spinal fixation rods. IMPRESSION: The constellation of findings is most suspicious for bibasilar subsegmental atelectasis without change.
== END 2016-10-06 02:58 | disposition home or self-care (01) ==
LOC: ED 23:57
DX: J40 Bronchitis, not specified as acute or chronic (principal); R00.2 Palpitations; R07.9 Chest pain, unspecified; R51 Headache; Z88.6 Allergy status to analgesic agent; Z88.8 Allergy status to other drugs, medicaments and biological substances; E03.9 Hypothyroidism, unspecified; Z87.09 Personal history of other diseases of the respiratory system; K21.9 Gastro-esophageal reflux disease without esophagitis; I25.2 Old myocardial infarction
CPT/HCPCS: 36415; 71010; 80053; 81003; 81015; 82550; 82553; 83605; 83690; 83735; 83880; 84443; 84484; 85025; 85610; 85730; 86140; 93005; 96360; 99283; A9270-GY

== ENCOUNTER 2016-10-08 16:08 | Inpatient (IN) | payer MEDICARE ==
--- NOTE | 2016-10-08 19:22 | RAD ---
Indication: Shortness of breath. 2 views of the chest including dual energy PA views demonstrates cardiomegaly. Bibasilar atelectasis is noted. There is increased interstitial edema which may represent vascular congestion. No pleural fluid is identified. IMPRESSION: Cardiomegaly with mild interstitial edema consistent with vascular congestion.
--- NOTE | 2016-10-08 20:07 | ED ---
Estevan Heaton Billy, scribed for Foreign Howard MD on 10/08/16 at 1938 . Shortness of Breath - HPI Summary HPI Summary: Patient is a 75 y/o female coming to [facility] for evaluation of SOB and cough for the last week. She was seen in the ED 10/05/16 and was discharged with doxycycline without any improvement. She has also tried OTC cough medications with no improvement. Denies any fevers. Patient uses home O2. - History of Current Complaint Chief Complaint: EDShortnessOfBreath Time Seen by Provider: 10/08/16 19:18 Hx Obtained From: Patient Onset/Duration: Gradual Onset, Lasting Days, Still Present Timing: Constant Current Severity: Moderate Dyspnea At: Rest Aggrevating Factors: Nothing Alleviating Factors: Nothing Associated Signs & Symptoms: Cough (Nonproductive) - Allergy/Home Medications Allergies/Adverse Reactions: Allergies Allergy/AdvReac Type Severity Reaction Status Date / Time Tiagabine [From Gabitril] Allergy Mild Rash Verified 10/06/16 00:09 Amitriptyline Allergy Unknown Unknown Verified 10/06/16 00:09 Reaction Details Atorvastatin [From Lipitor] Allergy Unknown Unknown Verified 10/06/16 00:09 Reaction Details Iodinated Contrast Media Allergy Unknown Unknown Verified 10/06/16 00:09 Reaction Details Misoprostol [From Cytotec] Allergy Unknown Unknown Verified 10/06/16 00:09 Reaction Details Theophylline [From Uniphyl] Allergy Unknown Unknown Verified 10/06/16 00:09 Reaction Details Tizanidine [From Zanaflex] Allergy Unknown Unknown Verified 10/06/16 00:09 Reaction Details Fentanyl and Related Allergy Dizziness Verified 10/06/16 00:09 Home Medications: Home Medications Dronedarone TAB* [Multaq TAB*] 400 mg PO BID 10/08/16 [History Confirmed ] Hydrocodone/Acetamin 10/325(NF [Waskish 10/325 (NF)] 2 tab PO Q6H PRN 10/08/16 [ History Confirmed 10/08/16] LevoCETirizine TAB (NF) [Xyzal TAB (NF)] 5 mg PO DAILY 10/08/16 [History Confirmed 10/08/16] Montelukast Sodium TAB* [Singulair TAB*] 10 mg PO DAILY 10/08/16 [History Confirmed 10/08/16] Omeprazole CAP* [Prilosec CAP* 20 MG] 40 mg PO BID 10/08/16 [History Confirmed 10/08/16] Potassium Chlor TAB* [Klor Con ER TAB*] 20 meq PO DAILY 10/08/16 [History Confirmed 10/08/16] Primidone TAB(*) [Mysoline TAB(*)] 50 mg PO BID 10/08/16 [History Confirmed ] PMH/Surg Hx/FS Hx/Imm Hx Endocrine/Hematology History: Reports: Hx Thyroid Disease Denies: Hx Diabetes Cardiovascular History: Reports: Hx Angina, Hx Hypercholesterolemia Denies: Hx Coronary Artery Disease, Hx Hypertension, Hx Myocardial Infarction , Hx Pacemaker/ICD, Hx Valvular Heart Disease Respiratory History: Reports: Hx Asthma Denies: Hx Chronic Obstructive Pulmonary Disease (COPD) GI History: Reports: Hx Gastroesophageal Reflux Disease History: Denies: Hx Renal Disease Musculoskeletal History: Reports: Hx Arthritis, Hx Back Problems, Hx Fibromyalgia Sensory History: Reports: Hx Cataracts, Hx Hearing Aid - Rt EAR, Hx Hearing Problem Opthamlomology History: Reports: Hx Cataracts Neurological History: Reports: Hx Headaches Psychiatric History: Denies: Hx Panic Disorder - Surgical History Surgery Procedure, Year, and Place: TSP -LSP G[place]NER RODS/SCREWS- 2010 - - TOTAL OF 5 SURGERIES LAST ONE 2010 Xs 2. BILATERAL HIP REPLACEMENT . TARSAL TUNNEL - Lt WART -REMOVED FROM EYELID. CARPAL TUNNEL - FLORIAN Lt KNEE -2 & Rt KNEE - 3 TIMES - ARTHROSCOPIC. CHOLECYSTECTOMY TONSILECTOMY- as child. HERNIA. APPENDECTOMY. FLORIAN BREAST REDUCTION. Lt THUMB - GANGLION CYST. Rt ARM - "LUMP" REMOVED- Infectious Disease History: No Infectious Disease History: Denies: Traveled Outside the [place] in Last 30 Days - Family History Known Family History: Positive: Cardiac Disease - Father used to use NTG. 3 brothers have had CABG. 4th had CVA and [place]., Diabetes - Social History Alcohol Use: Rare Hx Substance Use: No Substance Use Type: Reports: None Hx Tobacco Use: No Smoking Status (MU): Never Smoked Tobacco Review of Systems Negative: Fever Positive: Shortness Of Breath, Cough All Other Systems Reviewed And Are Negative: Yes Physical Exam Triage Information Reviewed: Yes Vital Signs On Initial Exam: Initial Vitals Temp Pulse Resp BP Pulse Ox 97.6 F 74 20 174/78 93 10/08/16 16:10 10/08/16 16:10 10/08/16 16:10 10/08/16 16:10 10/08/16 16:10 Vital Signs Reviewed: Yes Appearance: Positive: Well-Appearing, No Pain Distress Skin: Positive: Warm, Skin Color Reflects Adequate Perfusion, Dry Head/Face: Positive: Normal Head/Face Inspection Eyes: Positive: EOMI, CECIL Neck: Positive: Supple, Nontender Respiratory/Lung Sounds: Positive: Rhonchi - bilaterally, Wheezes - bilaterally , scattered Cardiovascular: Positive: RRR Abdomen Description: Positive: Nontender, Soft Musculoskeletal: Positive: Normal, Strength/ROM Intact Neurological: Positive: Normal, Sensory/Motor Intact, Alert, Oriented to Person Place, Time Psychiatric: Positive: Affect/Mood Appropriate Diagnostics - Vital Signs Vital Signs Temp Pulse Resp BP Pulse Ox 10/08/16 18:42 97.8 F 74 20 180/76 97 10/08/16 17:30 98.3 F 73 18 162/65 96 10/08/16 16:10 97.6 F 74 20 174/78 93 - Laboratory Lab Statement: Any lab studies that have been ordered have been reviewed, and results considered in the medical decision making process. - Radiology CXR Radiology Interpretation Completed By: Radiologist - Cardiomegaly with mild interstitial edema consistent with vascular congestion. Course/Dx - Course Assessment/Plan: DISPOSITION PENDING AT SHIFT CHANGE. - Diagnoses Provider Diagnoses: Dyspnea, Chest pain Discharge - Discharge Plan Condition: Stable Disposition: ADMITTED TO [facility] Referrals: Manas Villeda MD [Primary Care Provider] - The documentation as recorded by the Estevan schaffer Billy accurately reflects the service I personally performed and the decisions made by me, Foreign Howard MD.
[2016-10-08 22:14] LABS: Hematocrit 31 % (35-47); Hemoglobin 10.4 g/dl (12.0-16.0); Mean Corpuscular HGB Conc 33 g/dl (31-36); Mean Corpuscular Hemoglobin 31 pg (27-31); Mean Corpuscular Volume 93 fL (80-97); Mean Platelet Volume 8 um3 (7.4-10.4); Red Blood Count 3.39 10^6/ul (4.0-5.4); Red Cell Distribution Width 15 % (10.5-15); White Blood Count 6.9 10^3/ul (3.5-10.8)
[2016-10-08 22:30] LABS: Albumin 3.5 g/dL (3.2-5.2); BUN/Creatinine Ratio 14.6 (8-20); C Reactive Protein 38.59 mg/L (< 5.00); Calcium 8.7 mg/dL (8.6-10.3); EGFR African American 54.6 (>60); EGFR Non-African American 42.5 (>60); Globulin 3.1 g/dL (2-4); Magnesium 1.5 mg/dL (1.9-2.7); Total Bilirubin 0.4 mg/dL (0.2-1.0); Total Protein 6.6 g/dL (6.4-8.9)
[2016-10-08 22:33] LABS: Potassium 4.9 mmol/L (3.5-5.0); Troponin I 0.03 ng/mL (<0.04)
[2016-10-08] MEDS ORDERED: diPHENhydraMINE IV* 50 MG/ML 1 ml VIAL (BENADRYL) IV ONE (22:55)
[2016-10-08] MEDS ORDERED: Iodixanol* (CONTRAST) 320 MG/ML 100 ML SDV IV ONE (23:01)
[2016-10-08 23:53] LABS: TSH (Thyroid Stimulating Horm) 4.14 mcIU/mL (0.34-5.60)
[2016-10-09] MEDS ORDERED: HYDROcodone/ACET. 7.5/325 LIQ* 15 ML UDC PO PRN (01:24)
[2016-10-09] MEDS ORDERED: Torsemide TAB* 20 MG PO SCH (02:00)
[2016-10-09] MEDS: Lisinopril TAB* 10 MG PO SCH ×2 (02:30→09:56)
[2016-10-09] MEDS: Metoprolol Tartrate TAB* 25 MG PO SCH ×3 (02:30→20:18)
[2016-10-09] MEDS: Cetirizine* 10 MG TAB PO SCH ×2 (02:30→09:56)
[2016-10-09] MEDS: Potassium Chlor TAB* 20 MEQ TAB.ER PO SCH ×2 (02:30→09:56)
[2016-10-09] MEDS: CMCS: Rosuvastatin (NF) 20 MG TAB PO SCH ×2 (04:38→20:27)
[2016-10-09] MEDS: HYDROmorphone* 1 MG/ML 1 ML SYR IV SLOW PU PRN (05:17)
[2016-10-09] MEDS: Levothyroxine TAB* 137 MCG TAB PO SCH (05:18)
[2016-10-09] MEDS: Heparin VIAL(*) 5000 UNITS/ML VIAL (FIVE THOUSAND) SUBCUT SCH ×3 (05:18→21:04)
--- NOTE | 2016-10-09 07:57 | RAD ---
INDICATION: Shortness of breath, elevated d-dimer. COMPARISON: Comparison is made with a prior chest x-ray study from October 08, 2016. TECHNIQUE: A CT angiogram of the chest was performed with intravenous following intravenous injection of 84 ml of Visipaque 320 nonionic contrast. Contiguous axial sections were obtained from the lung apices through the lung bases. Images were reconstructed in the coronal and sagittal planes. FINDINGS: There is suboptimal opacification of the pulmonary arteries and motion of artifact present especially at the lung bases which limits evaluation of the pulmonary arteries. No central pulmonary embolus is seen. The heart is mildly enlarged. No pericardial effusion is present. The thoracic aorta is normal in caliber. There is mild calcific plaque present. There are slightly prominent lymph nodes within the mediastinum in the region of the aorticopulmonary window measuring up to 0.8 cm in transverse dimension. No significantly enlarged lymph nodes are seen by size criteria. No significant enlarged hilar lymph nodes are noted. There are small bilateral pleural effusions. There is a small patchy nodular infiltrate present in the apical portion of the left upper lobe. There is a small infiltrate in the left upper lobe toward the lung base and mild dependent bilateral lower lobe infiltrates. The patient is status post posterior spinal fusion of the lower dorsal and lumbar spine. There are several chronic compression fractures of lower dorsal vertebral bodies. There is moderate to severe degenerative disc disease in the mid and lower dorsal spine. IMPRESSION: 1. LIMITED STUDY, NO EVIDENCE FOR AN EMBOLUS IN THE CENTRAL PULMONARY ARTERIES. 2. SMALL BILATERAL PLEURAL EFFUSIONS AND BILATERAL INFILTRATES DESCRIBED.
[2016-10-09] MEDS: HYDROcodone/ACET. 7.5/325 LIQ* 15 ML UDC PO PRN ×2 (09:54→21:27)
[2016-10-09] MEDS: Furosemide IV* 10 MG/ML VIAL (40 MG) IV SLOW PU SCH ×2 (09:55→20:18)
[2016-10-09] MEDS: Dronedarone TAB* 400 MG PO SCH ×2 (09:56→20:18)
[2016-10-09] MEDS: Montelukast Sodium TAB* 10 MG PO SCH (09:56)
[2016-10-09] MEDS: DOXYcycline CAP(*) 100 MG PO SCH ×2 (09:56→20:18)
[2016-10-09] MEDS: Aspirin EC Low Dose* 81 MG TAB.EC PO SCH (09:57)
[2016-10-09] MEDS: Primidone TAB(*) 50 MG PO SCH ×2 (09:58→20:27)
--- NOTE | 2016-10-09 10:23 | HP ---
HISTORY AND PHYSICAL: DATE OF ADMISSION: 10/09/16 CHIEF COMPLAINT: Shortness of breath HISTORY OF PRESENT ILLNESS: The patient is a 75-year-old woman, recently discharged from [facility], who presents today with worsening shortness of breath. Apparently, she went to her primary care doctor's office where she saw the nurse practitioner who listened to her lungs and said she needed to go to the ER to be admitted for at least 2 to 3 days. She felt like her lungs were not getting enough oxygen. She has to sit up to even take a breath. She said since she was hospitalized a couple of weeks ago she has not taken her diuretics. It is unclear as to why, although her states she has not been feeling well with some diarrhea and he thinks that may be reason. They did not notice any increased weight gain or edema during this time. She has chest pain, but apparently this is a chronic problem that is left sided and for which she was in the hospital prior. She has also been told she has bronchitis. PAST MEDICAL HISTORY: She has a past medical history significant for 1. Constipation. 2. Asthma. 3. Restless leg syndrome. 4. Essential tremor. 5. Chronic pain. 6. Seasonal allergies. 7. GERD. 8. Hypothyroidism. 9. Chronic lymphedema. 10. Chronic chest pain. ALLERGIES: 1. TIAGABINE. 2. AMITRIPTYLINE. 3. ATORVASTATIN. 4. CONTRAST. 5. MISOPROSTOL. 6. THEOPHYLLINE. 7. TIZANIDINE. 8. FENTANYL PATCH. FAMILY HISTORY: Mother at age 84 from heart failure. Father at age 86 from coronary disease. Three of her four brothers from coronary disease bypass in their 60s and 70s; however, one brother had a bypass and did survive. SOCIAL HISTORY: The patient is . Her , Herminio, is her healthcare proxy. No tobacco, alcohol, or recreational drug use. CURRENT MEDICATIONS: Are as follows: 1. Omeprazole 40 mg twice daily. 2. Effexor XR 37.5 mg at bedtime. 3. Primidone 50 mg twice daily. 4. Levothyroxine 137 mcg daily. 5. Furosemide 40 mg daily. 6. Doxycycline 100 mg twice daily. 7. Singulair 10 mg daily. 8. Xyzal 5 mg daily. 9. Torsemide 60 mg daily. 10. Hydrocodone/acetaminophen/[place] 10/325 two tabs every 6 hours as needed. 11. Potassium chloride 20 mEq daily. 12. Aspirin 81 mg daily. 13. Lisinopril 20 mg daily. 14. Multaq 400 mg twice daily. 15. Metoprolol tartrate 12.5 mg twice daily. 16. Crestor 20 mg at bedtime. REVIEW OF SYSTEMS: A 14-point review of systems was completed with the patient. All pertinent positives and negatives are in the history of present illness, otherwise negative. PHYSICAL EXAMINATION GENERAL: A pleasant woman lying in bed, in no acute distress. VITAL SIGNS: Temperature 97.8 degrees, heart rate 85 beats per minute, respiratory rate 18 breaths per minute, pulse ox 93%, and blood pressure 195/94. HEENT: Normocephalic, atraumatic. Pupils are equal, round and reactive to light. Moist mucous membranes. NECK: Supple. No JVD, bruits, palpable thyroid, or lymphadenopathy. CHEST: Diminished breath sounds with some crackles at the bases. CARDIOVASCULAR: S1, S2 appreciated. ABDOMEN: Obese. Positive bowel sounds in all 4 quadrants. Soft, nontender. EXTREMITIES: No cyanosis or clubbing. She has bilateral edema. NEURO: Alert and oriented x3. Moves all extremities. SKIN: No other skin rashes. No abnormalities. DIAGNOSTIC STUDIES/LAB DATA: White count 6.1, hemoglobin 10.4, hematocrit 31, platelets 179. Sodium 134, potassium 4.9, chloride 106, CO2 22, BUN 18, creatinine 1.23, glucose 130. Troponin 0.03. D-dimer 649. CTA of the chest was interpreted by radiologist. No pulmonary embolism identified. Small area of nodule in the left upper lobe, likely post infection. Small left and trace right pleural effusion with dependent atelectatic changes. Chest x-ray shows cardiomegaly with mild interstitial edema consistent with vascular congestion. EKG shows normal sinus rhythm at 73 beats per minute, normal axis, flipped Ts in III and F, otherwise nonspecific ST-T wave changes. ASSESSMENT AND PLAN: 1. Shortness of breath. Patient may have some slight CHF. Her BNP is elevated , but not as it has been in the past. She has not been taking her diuretics, but she also denies any weight gain or increased edema. I will try to aggressively diurese her with 80 mg of Lasix twice daily. Continue torsemide, and monitor her weights, and strict I's and O's. Hopefully, she will improve over the next couple of days. 2. Hypothyroidism. Stable, continue Synthroid. 3. Depression. Stable, continue Effexor. 4. GERD. Stable, continue omeprazole. 5. Asthma. Continue Singulair. 6. Hypertension. Poorly controlled, continue current regimen and adjust medications accordingly. 7. Hyperlipidemia. Stable, continue Crestor. 8. FEN. Low-salt diet 9. DVT. Heparin subcu. 10. The patient is a full code. TIME SPENT: Over 75 minutes were spent on this H and P, more than 40 minutes of which were spent in direct [id number] contact with the patient in evaluation, physical exam, counseling, and coordination of care. CC: Dr. Manas Villeda* [id number]/[facility] #: [id number] PAMELA
[2016-10-09] MEDS ORDERED: Albuterol 2.5 MG/3 ML NEB.SOL* (0.083%) INH PRN (12:52)
[2016-10-09] MEDS ORDERED: methylPREDNISolone SOD SUCC* 125 MG 2 ML VIAL IV ONE (12:53)
[2016-10-09] MEDS: Mometasone/Formoter 100/5 MDI INH SCH ×2 (16:15→20:21)
--- NOTE | 2016-10-09 17:31 | PN ---
Subjective Date of Service: 10/09/16 Interval History: This is a 75 yo female with asthma, CKD, chronic pain, CAD with preserved EF, chronic lymphedema, hypothyroidism and recent admission for atrial flutter and NSTEMI with chronic anemia thought to be due to PUD who was admitted last night with complaints of SOB and cough. Patient states that she felt well at the time of her discharge 10/03, but unfortunately developed a cough and shortness of breath the day following discharge. She subsequently returned to the emergency department and was discharged with doxycycline. Patient's symptoms persisted and she returned to the ER. She has not been taking her diuretics since discharge. She is unable to clearly state why she wasn't taking them. CXR suggested PVC at admission, no acute infiltrate. CTA neg for PE. Patient was given IV Lasix for suspected CHF exacerbation. This am, patient reports continued SOB and cough. She does not feel significantly better since the time of admission. She reports her cough has been occasionally productive at home. Objective Active Medications: Hydrocodone Bitart/Acetaminophen (Nortab 7.5/325 Liq*) 15 ml PO Q4H PRN PRN Reason: FEVER/PAIN Last Admin: 10/09/16 09:54 Dose: 15 ml Albuterol (Ventolin 2.5 Mg/3 Ml Neb.Raiza*) 2.5 mg INH Q4H PRN PRN Reason: SOB/WHEEZING Last Admin: 10/09/16 13:30 Dose: 2.5 mg Aspirin (Aspirin Ec Low Dose*) 81 mg PO DAILY [facility] Last Admin: 10/09/16 09:57 Dose: 81 mg Cetirizine HCl (Zyrtec*) 10 mg PO DAILY [facility] Doxycycline Hyclate (Vibramycin Cap(*)) 100 mg PO BID [facility] Last Admin: 10/09/16 09:56 Dose: 100 mg Dronedarone (Multaq Tab*) 400 mg PO BID [facility] Last Admin: 10/09/16 09:56 Dose: 400 mg Furosemide (Lasix Iv*) 80 mg IV SLOW PU BID [facility] Last Admin: 10/09/16 09:55 Dose: 80 mg Heparin Sodium (Porcine) (Heparin Vial(*)) 5,000 units SUBCUT Q8HR [facility] Last Admin: 10/09/16 13:29 Dose: 5,000 units Hydromorphone HCl (Dilaudid Iv*) 0.5 mg IV SLOW PU Q4H PRN PRN Reason: PAIN Last Admin: 10/09/16 05:17 Dose: 0.5 mg Levothyroxine Sodium (Synthroid Tab*) 137 mcg PO 0600 [facility] Last Admin: 10/09/16 05:18 Dose: 137 mcg Lisinopril (Prinivil Tab*) 20 mg PO DAILY [facility] Last Admin: 10/09/16 09:56 Dose: 20 mg Metoprolol Tartrate (Lopressor Tab*) 12.5 mg PO BID [facility] Last Admin: 10/09/16 09:57 Dose: 12.5 mg Mometasone Furoate/Formoterol Fumar (Dulera 100/5 Mdi*) 2 puff INH BID [facility] Last Admin: 10/09/16 16:15 Dose: Not Given Montelukast Sodium (Singulair Tab*) 10 mg PO DAILY [facility] Last Admin: 10/09/16 09:56 Dose: 10 mg Potassium Chloride (Klor Con Er Tab*) 20 meq PO DAILY [facility] Last Admin: 10/09/16 09:56 Dose: 20 meq Prednisone (Deltasone Tab*) 40 mg PO DAILY [facility] Primidone (Mysoline Tab(*)) 50 mg PO BID [facility] Last Admin: 10/09/16 09:58 Dose: 50 mg Rosuvastatin Calcium (Crestor (Nf)) 20 mg PO BEDTIME [facility] Last Admin: 10/09/16 04:38 Dose: 20 mg Venlafaxine HCl (Effexor Xr Cap*) 37.5 mg PO BEDTIME [facility] Vital Signs: Temp Pulse Resp BP Pulse Ox 97.8 F 64 16 138/57 99 10/09/16 11:26 10/09/16 11:26 10/09/16 11:54 10/09/16 11:26 10/09/16 11:26 Oxygen Devices in Use Now: None Appearance: Mildly ill appearing and anxious elderly female in some respiratory distress. Neck: NL Appearance and Movements; NL JVP Respiratory: Symmetrical Chest Expansion and Respiratory Effort, - - expiratory wheeze, few rhonchi Cardiovascular: NL Sounds; No Murmurs; No JVD, RRR Abdominal: NL Sounds; No Tenderness; No Distention Extremities: No Edema Skin: No Rash or Ulcers Neurological: Alert and Oriented x 3 Result Diagrams: 10/08/16 22:06 10/08/16 22:06 Diagnostic Imaging: CXR - mild PVC EKG - NSR CTA chest - no PE, small bilateral pleural effusions with bilateral infiltrates Assess/Plan/Problems-Billing Assessment: This is a 75 yo female with asthma, CKD, chronic pain, chronic lymphedema, RLS, essential tremor, hypothyroidism, CAD with preserved EF with recent admission for atrial flutter and NSTEMI who returned with complaints of SOB with evidence of PNA and asthma exacerbation with possible mild acute CHF. - Patient Problems (1) Pneumonia Comment: Bilateral infiltrates noted on CTA With associated asthma exacerbation Will start Ceftriaxone/azithromycin (2) Asthma exacerbation Comment: Noted wheeze and rhonchi on exam Start corticosteroids Albuterol nebs Cont Advair (3) History of atrial flutter Comment: Currently NSR Decision not to anticoagulate at last admission due to anemia and PUD (4) CKD (chronic kidney disease) Comment: Stage III No acute exacerbation (5) CAD (coronary artery disease) Comment: h/o NSTEMI Cont medical management (6) Anemia Comment: Hgb appears to be at baseline No evidence of bleeding (7) Gastric ulcer Comment: Recent EGD shows PUD Cont PPI (8) Hypertension Comment: Currently normotensive Cont home medications (9) Chronic pain (10) Lymphedema (11) RLS (restless legs syndrome) (12) Essential tremor Status and Disposition: Patient requires continued hospital care. Anticipate discharge in 2-3 days. Patient would likely benefit from [facility] stay. Requested PT consultation.
[2016-10-09] MEDS ORDERED: Azithromycin IV(*) 250 MG in NS 0.9% 250 ML* 250 ML IVPB SCH (18:00)
[2016-10-09] MEDS: cefTRIAXone VIAL(*) 1,000 MG in NS 0.9% 50 ML* 50 ML IVPB SCH (20:18)
[2016-10-09] MEDS: Venlafaxine EXT RELEASE CAP* 37.5 MG PO SCH (21:05)
[2016-10-10] MEDS: HYDROcodone/ACET. 7.5/325 LIQ* 15 ML UDC PO PRN ×4 (01:20→18:56)
[2016-10-10] MEDS: Levothyroxine TAB* 137 MCG TAB PO SCH (05:15)
[2016-10-10] MEDS: Heparin VIAL(*) 5000 UNITS/ML VIAL (FIVE THOUSAND) SUBCUT SCH ×3 (05:16→20:28)
[2016-10-10] MEDS: Potassium Chlor TAB* 20 MEQ TAB.ER PO SCH (08:44)
[2016-10-10] MEDS: DOXYcycline CAP(*) 100 MG PO SCH ×2 (08:44→20:27)
[2016-10-10] MEDS: predniSONE TAB* 20 MG PO SCH (08:44)
[2016-10-10] MEDS: Furosemide IV* 10 MG/ML VIAL (40 MG) IV SLOW PU SCH ×2 (08:44→20:28)
[2016-10-10] MEDS: Lisinopril TAB* 10 MG PO SCH (08:44)
[2016-10-10] MEDS: Cetirizine* 10 MG TAB PO SCH (08:45)
[2016-10-10] MEDS: Dronedarone TAB* 400 MG PO SCH ×2 (08:45→20:27)
[2016-10-10] MEDS: Primidone TAB(*) 50 MG PO SCH ×2 (08:45→20:28)
[2016-10-10] MEDS: Metoprolol Tartrate TAB* 25 MG PO SCH ×2 (08:45→20:28)
[2016-10-10] MEDS: Aspirin EC Low Dose* 81 MG TAB.EC PO SCH (08:45)
[2016-10-10] MEDS: Montelukast Sodium TAB* 10 MG PO SCH (08:45)
[2016-10-10 08:56] LABS: Hematocrit 31 % (35-47); Hemoglobin 10.2 g/dl (12.0-16.0); Mean Corpuscular HGB Conc 33 g/dl (31-36); Mean Corpuscular Hemoglobin 30 pg (27-31); Mean Corpuscular Volume 91 fL (80-97); Mean Platelet Volume 7 um3 (7.4-10.4); Red Blood Count 3.38 10^6/ul (4.0-5.4); Red Cell Distribution Width 14 % (10.5-15); White Blood Count 5.7 10^3/ul (3.5-10.8)
[2016-10-10 09:14] LABS: Albumin 3.5 g/dL (3.2-5.2); Calcium 8.8 mg/dL (8.6-10.3); EGFR African American 40.9 (>60); EGFR Non-African American 31.8 (>60); Globulin 3.1 g/dL (2-4); Magnesium 1.5 mg/dL (1.9-2.7); Potassium 4.2 mmol/L (3.5-5.0); Total Bilirubin 0.4 mg/dL (0.2-1.0); Total Protein 6.6 g/dL (6.4-8.9)
[2016-10-10] MEDS: Mometasone/Formoter 100/5 MDI INH SCH ×2 (09:16→20:17)
--- NOTE | 2016-10-10 15:10 | PN ---
Subjective Date of Service: 10/10/16 Interval History: Ms. Martin reports she continues to feel "not great", she reports she overall feels better than when admitted but still has SOB and feels "shaky and exhausted " with exertion. reports he cough is improving, no sputum. No fevers or chills. Reports her appetite is improving. No abd pain, N/V/D. Reports "sore stomach muscles" with coughing. Denies orthopnea or LE swelling. Objective Active Medications: Hydrocodone Bitart/Acetaminophen (Nortab 7.5/325 Liq*) 15 ml PO Q4H PRN PRN Reason: FEVER/PAIN Last Admin: 10/10/16 12:04 Dose: 15 ml Albuterol (Ventolin 2.5 Mg/3 Ml Neb.Raiza*) 2.5 mg INH Q4H PRN PRN Reason: SOB/WHEEZING Last Admin: 10/09/16 13:30 Dose: 2.5 mg Aspirin (Aspirin Ec Low Dose*) 81 mg PO DAILY [facility] Last Admin: 10/10/16 08:45 Dose: 81 mg Cetirizine HCl (Zyrtec*) 10 mg PO DAILY [facility] Last Admin: 10/10/16 08:45 Dose: 10 mg Doxycycline Hyclate (Vibramycin Cap(*)) 100 mg PO BID [facility] Last Admin: 10/10/16 08:44 Dose: 100 mg Dronedarone (Multaq Tab*) 400 mg PO BID [facility] Last Admin: 10/10/16 08:45 Dose: 400 mg Furosemide (Lasix Iv*) 80 mg IV SLOW PU BID [facility] Last Admin: 10/10/16 08:44 Dose: 80 mg Heparin Sodium (Porcine) (Heparin Vial(*)) 5,000 units SUBCUT Q8HR [facility] Last Admin: 10/10/16 13:23 Dose: 5,000 units Hydromorphone HCl (Dilaudid Iv*) 0.5 mg IV SLOW PU Q4H PRN PRN Reason: PAIN Last Admin: 10/09/16 05:17 Dose: 0.5 mg Ceftriaxone Sodium 1,000 mg/ (Sodium Chloride) 50 mls @ 200 mls/hr IVPB Q24H [facility] Last Admin: 10/09/16 20:18 Dose: 200 mls/hr Levothyroxine Sodium (Synthroid Tab*) 137 mcg PO 0600 [facility] Last Admin: 10/10/16 05:15 Dose: 137 mcg Lisinopril (Prinivil Tab*) 20 mg PO DAILY [facility] Last Admin: 10/10/16 08:44 Dose: 20 mg Metoprolol Tartrate (Lopressor Tab*) 12.5 mg PO BID [facility] Last Admin: 10/10/16 08:45 Dose: 12.5 mg Mometasone Furoate/Formoterol Fumar (Dulera 100/5 Mdi*) 2 puff INH BID [facility] Last Admin: 10/10/16 09:16 Dose: Not Given Montelukast Sodium (Singulair Tab*) 10 mg PO DAILY [facility] Last Admin: 10/10/16 08:45 Dose: 10 mg Potassium Chloride (Klor Con Er Tab*) 20 meq PO DAILY [facility] Last Admin: 10/10/16 08:44 Dose: 20 meq Prednisone (Deltasone Tab*) 40 mg PO DAILY [facility] Last Admin: 10/10/16 08:44 Dose: 40 mg Primidone (Mysoline Tab(*)) 50 mg PO BID [facility] Last Admin: 10/10/16 08:45 Dose: 50 mg Rosuvastatin Calcium (Crestor (Nf)) 20 mg PO BEDTIME [facility] Last Admin: 10/09/16 20:27 Dose: 20 mg Venlafaxine HCl (Effexor Xr Cap*) 37.5 mg PO BEDTIME [facility] Last Admin: 10/09/16 21:05 Dose: 37.5 mg Vital Signs 10/09/16 10/09/16 10/09/16 15:18 19:37 20:00 Temperature 97.8 F 97.8 F Pulse Rate 65 85 81 Respiratory 18 21 19 Rate Blood Pressure 138/71 196/95 (mmHg) O2 Sat by Pulse 96 99 99 Oximetry 10/09/16 10/09/16 10/10/16 21:27 23:27 00:32 Temperature 98.2 F Pulse Rate 56 Respiratory 18 16 16 Rate Blood Pressure 141/72 (mmHg) O2 Sat by Pulse 97 Oximetry 10/10/16 10/10/16 10/10/16 01:20 03:20 04:35 Temperature 98.0 F Pulse Rate 56 Respiratory 18 18 16 Rate Blood Pressure 150/73 (mmHg) O2 Sat by Pulse 99 Oximetry 10/10/16 10/10/16 10/10/16 05:16 07:16 07:34 Temperature 98.2 F Pulse Rate 55 Respiratory 19 18 20 Rate Blood Pressure 133/66 (mmHg) O2 Sat by Pulse 99 Oximetry 10/10/16 10/10/16 10/10/16 07:44 09:15 11:33 Temperature 97.4 F Pulse Rate 51 59 Respiratory 18 20 22 Rate Blood Pressure 141/70 (mmHg) O2 Sat by Pulse 99 97 Oximetry 10/10/16 10/10/16 12:04 14:04 Temperature Pulse Rate Respiratory 18 16 Rate Blood Pressure (mmHg) O2 Sat by Pulse Oximetry Oxygen Devices in Use Now: Nasal Cannula - 4L NC Appearance: 75 yo obese female sitting up in bed in NAD. A+O x3 Eyes: No Scleral Icterus, PERRLA Ears/Nose/Mouth/Throat: NL Teeth, Lips, Gums, Mucous Membranes Moist, - - multiple missing teeth Respiratory: Symmetrical Chest Expansion and Respiratory Effort, - - diminished bilaterally Cardiovascular: NL Sounds; No Murmurs; No JVD, RRR, No Edema Abdominal: NL Sounds; No Tenderness; No Distention, - - obese Extremities: No Edema, No Clubbing, Cyanosis Skin: No Rash or Ulcers, No Nodules or Sclerosis Neurological: Alert and Oriented x 3, NL Sensation, NL Muscle Strength and Tone Lines/Tubes/Other Access: Clean, Dry and Intact Peripheral IV Nutrition: Taking PO's Result Diagrams: 10/10/16 08:43 10/10/16 08:43 Diagnostic Imaging: CXR - mild PVC EKG - NSR CTA chest - no PE, small bilateral pleural effusions with bilateral infiltrates Assess/Plan/Problems-Billing Assessment: This is a 75 yo female with asthma, CKD, chronic pain, chronic lymphedema, RLS, essential tremor, hypothyroidism, CAD with preserved EF with recent admission for atrial flutter and NSTEMI who returned with complaints of SOB with evidence of PNA and asthma exacerbation with possible mild acute CHF. - Patient Problems (1) Pneumonia Comment: Bilateral infiltrates noted on CTA With associated asthma exacerbation wih increased oxygen demand; wears 2 L NC at night at her baseline, now on 4L. Flutter valve q4hr wa Continue Ceftriaxone/Doxy/Prednisone (2) Asthma exacerbation Comment: stable Start corticosteroids Albuterol nebs Cont Advair (3) Electrolyte abnormality Comment: - replace magnesium, recheck in am (4) Gastric ulcer Comment: Recent EGD 10/01 shows PUD Cont PPI 40 mg BID while on ASA therapy for CAD (5) CAD (coronary artery disease) Comment: Asymptomatic h/o recent NSTEMI 09/25 with preserved EF; s/p cardiac cath 10/01 showing critical stenosis to the ostium of the RCA with 99% stenosis and signifcant stenosis to mid RC; recommendation was maximum medical therapy for her CAD with no stenting to her RCA because of significant collateral flow from the LAD and is at increased risk of bleeding from dual-antiplatelet therapy. On ASA only due to recent GI bleed, continue BB (6) Hypertension Comment: Currently normotensive Cont home medications (7) Hypothyroidism Comment: - TSH 0.54 - continue Levothyroxine. (8) Atrial fibrillation Comment: - S/p cardioversion 09/25/16 - in sinus on Multaq and low dose metoprolol. - Recent hospitalization, Dr. Hilliard (cardiology) - recommended holding off on anticoagulation at this point due to risk of bleeding in the setting of peptic ulcer disease and recent GI bleed, but would anticoagulate if she flips back into A flutter. (9) CKD (chronic kidney disease) Comment: Stage III Appears to be around baseline (10) Lymphedema Comment: chronic (11) DVT prophylaxis Comment: - SQ heparin. (12) Full code status Status and Disposition: Patient requires continued hospital care. Anticipate discharge in 2-3 days. PT evaluation today.
[2016-10-10] MEDS: cefTRIAXone VIAL(*) 1,000 MG in NS 0.9% 50 ML* 50 ML IVPB SCH (18:04)
[2016-10-10] MEDS: HYDROmorphone* 1 MG/ML 1 ML SYR IV SLOW PU PRN (19:35)
[2016-10-10] MEDS: Omeprazole CAP* 20 MG PO SCH (20:27)
[2016-10-10] MEDS: CMCS: Rosuvastatin (NF) 20 MG TAB PO SCH (20:27)
[2016-10-10] MEDS: Venlafaxine EXT RELEASE CAP* 37.5 MG PO SCH (20:28)
[2016-10-11] MEDS: HYDROcodone/ACET. 7.5/325 LIQ* 15 ML UDC PO PRN ×4 (02:49→23:32)
[2016-10-11] MEDS: Heparin VIAL(*) 5000 UNITS/ML VIAL (FIVE THOUSAND) SUBCUT SCH ×3 (05:22→22:25)
[2016-10-11] MEDS: HYDROmorphone* 1 MG/ML 1 ML SYR IV SLOW PU PRN ×3 (05:22→20:08)
[2016-10-11] MEDS: Levothyroxine TAB* 137 MCG TAB PO SCH (05:28)
[2016-10-11 06:12] LABS: Hematocrit 29 % (35-47); Hemoglobin 9.7 g/dl (12.0-16.0); Mean Corpuscular HGB Conc 34 g/dl (31-36); Mean Corpuscular Hemoglobin 31 pg (27-31); Mean Corpuscular Volume 92 fL (80-97); Mean Platelet Volume 8 um3 (7.4-10.4); Red Blood Count 3.15 10^6/ul (4.0-5.4); Red Cell Distribution Width 14 % (10.5-15); White Blood Count 8.9 10^3/ul (3.5-10.8)
[2016-10-11 06:32] LABS: Calcium 8.8 mg/dL (8.6-10.3); EGFR African American 36.8 (>60); EGFR Non-African American 28.6 (>60); Magnesium 2.1 mg/dL (1.9-2.7); Potassium 4.3 mmol/L (3.5-5.0)
[2016-10-11] MEDS: Mometasone/Formoter 100/5 MDI INH SCH ×2 (07:57→20:28)
[2016-10-11] MEDS ORDERED: NS 0.9% 1000 ML* 1,000 ML IV SCH (08:30)
[2016-10-11] MEDS: Aspirin EC Low Dose* 81 MG TAB.EC PO SCH (10:15)
[2016-10-11] MEDS: DOXYcycline CAP(*) 100 MG PO SCH ×2 (10:15→20:18)
[2016-10-11] MEDS: Lisinopril TAB* 10 MG PO SCH (10:15)
[2016-10-11] MEDS: Metoprolol Tartrate TAB* 25 MG PO SCH ×2 (10:15→20:19)
[2016-10-11] MEDS: predniSONE TAB* 20 MG PO SCH (10:16)
[2016-10-11] MEDS: Montelukast Sodium TAB* 10 MG PO SCH (10:16)
[2016-10-11] MEDS: Dronedarone TAB* 400 MG PO SCH ×2 (10:16→20:20)
[2016-10-11] MEDS: Furosemide IV* 10 MG/ML VIAL (40 MG) IV SLOW PU SCH ×2 (10:16→20:09)
[2016-10-11] MEDS: Cetirizine* 10 MG TAB PO SCH (10:16)
[2016-10-11] MEDS: Potassium Chlor TAB* 20 MEQ TAB.ER PO SCH (10:16)
[2016-10-11] MEDS: Omeprazole CAP* 20 MG PO SCH ×2 (10:16→20:17)
[2016-10-11] MEDS: Primidone TAB(*) 50 MG PO SCH ×2 (10:16→20:17)
--- NOTE | 2016-10-11 12:09 | PN ---
Subjective Date of Service: 10/11/16 Interval History: Pt reports she feels 'a little better" today but still weak unable to go home. Started having a productive cough with thick sputum last night. Mild SOB with exertion. Denies CP. Continues to feel congested. Denies fever or chills. No nausea/vomiting/diarrhea or abdominal pain. No dysuria or increased frequency Objective Active Medications: Hydrocodone Bitart/Acetaminophen (Nortab 7.5/325 Liq*) 15 ml PO Q4H PRN PRN Reason: FEVER/PAIN Last Admin: 10/11/16 10:13 Dose: 15 ml Albuterol (Ventolin 2.5 Mg/3 Ml Neb.Raiza*) 2.5 mg INH Q4H PRN PRN Reason: SOB/WHEEZING Last Admin: 10/09/16 13:30 Dose: 2.5 mg Aspirin (Aspirin Ec Low Dose*) 81 mg PO DAILY [facility] Last Admin: 10/11/16 10:15 Dose: 81 mg Cetirizine HCl (Zyrtec*) 10 mg PO DAILY [facility] Last Admin: 10/11/16 10:16 Dose: 10 mg Doxycycline Hyclate (Vibramycin Cap(*)) 100 mg PO BID [facility] Last Admin: 10/11/16 10:15 Dose: 100 mg Dronedarone (Multaq Tab*) 400 mg PO BID [facility] Last Admin: 10/11/16 10:16 Dose: 400 mg Furosemide (Lasix Iv*) 80 mg IV SLOW PU BID [facility] Last Admin: 10/11/16 10:16 Dose: 80 mg Heparin Sodium (Porcine) (Heparin Vial(*)) 5,000 units SUBCUT Q8HR [facility] Last Admin: 10/11/16 05:22 Dose: 5,000 units Hydromorphone HCl (Dilaudid Iv*) 0.5 mg IV SLOW PU Q4H PRN PRN Reason: PAIN Last Admin: 10/11/16 05:22 Dose: 0.5 mg Ceftriaxone Sodium 1,000 mg/ (Sodium Chloride) 50 mls @ 200 mls/hr IVPB Q24H [facility] Last Admin: 10/10/16 18:04 Dose: 200 mls/hr Sodium Chloride (Ns 0.9% 1000 Ml*) 1,000 mls @ 100 mls/hr IV PER RATE [facility] Stop: 10/11/16 18:29 Last Admin: 10/11/16 10:19 Dose: 100 mls/hr Levothyroxine Sodium (Synthroid Tab*) 137 mcg PO 0600 [facility] Last Admin: 10/11/16 05:28 Dose: 137 mcg Lisinopril (Prinivil Tab*) 20 mg PO DAILY [facility] Last Admin: 10/11/16 10:15 Dose: 20 mg Metoprolol Tartrate (Lopressor Tab*) 12.5 mg PO BID [facility] Last Admin: 10/11/16 10:15 Dose: 12.5 mg Mometasone Furoate/Formoterol Fumar (Dulera 100/5 Mdi*) 2 puff INH BID [facility] Last Admin: 10/11/16 07:57 Dose: 2 puff Montelukast Sodium (Singulair Tab*) 10 mg PO DAILY [facility] Last Admin: 10/11/16 10:16 Dose: 10 mg Omeprazole (Prilosec Cap*) 40 mg PO BID [facility] Last Admin: 10/11/16 10:16 Dose: 40 mg Potassium Chloride (Klor Con Er Tab*) 20 meq PO DAILY [facility] Last Admin: 10/11/16 10:16 Dose: 20 meq Prednisone (Deltasone Tab*) 40 mg PO DAILY [facility] Last Admin: 10/11/16 10:16 Dose: 40 mg Primidone (Mysoline Tab(*)) 50 mg PO BID [facility] Last Admin: 10/11/16 10:16 Dose: 50 mg Rosuvastatin Calcium (Crestor (Nf)) 20 mg PO BEDTIME [facility] Last Admin: 10/10/16 20:27 Dose: 20 mg Venlafaxine HCl (Effexor Xr Cap*) 37.5 mg PO BEDTIME [facility] Last Admin: 10/10/16 20:28 Dose: 37.5 mg Vital Signs 10/10/16 10/10/16 10/10/16 14:04 15:16 16:30 Temperature 97.2 F Pulse Rate 55 60 Respiratory 16 18 18 Rate Blood Pressure 141/63 (mmHg) O2 Sat by Pulse 98 97 Oximetry 10/10/16 10/10/16 10/10/16 18:56 19:28 19:35 Temperature 97.8 F Pulse Rate 63 Respiratory 18 19 18 Rate Blood Pressure 171/81 (mmHg) O2 Sat by Pulse 99 Oximetry 10/10/16 10/10/16 10/10/16 20:00 20:35 20:56 Temperature Pulse Rate 71 Respiratory 19 18 18 Rate Blood Pressure (mmHg) O2 Sat by Pulse 98 Oximetry 10/11/16 10/11/16 10/11/16 00:00 00:29 02:49 Temperature 97.4 F 97.6 F Pulse Rate 64 60 Respiratory 20 16 19 Rate Blood Pressure 180/83 151/67 (mmHg) O2 Sat by Pulse 100 100 Oximetry 10/11/16 10/11/16 10/11/16 04:49 04:50 05:22 Temperature 97.8 F Pulse Rate 54 Respiratory 19 16 19 Rate Blood Pressure 124/60 (mmHg) O2 Sat by Pulse 100 Oximetry 10/11/16 10/11/16 10/11/16 07:43 07:53 10:13 Temperature 97.6 F Pulse Rate 54 54 Respiratory 18 16 14 Rate Blood Pressure 162/64 (mmHg) O2 Sat by Pulse 100 100 Oximetry Oxygen Devices in Use Now: Nasal Cannula - 4L NC Appearance: 75 yo obese female laying in bed in NAD. A+O x3, appears mildy ill, nontoxic Eyes: No Scleral Icterus, PERRLA Ears/Nose/Mouth/Throat: NL Teeth, Lips, Gums, Mucous Membranes Moist Neck: NL Appearance and Movements; NL JVP, - - diminished b/l Respiratory: Symmetrical Chest Expansion and Respiratory Effort Cardiovascular: NL Sounds; No Murmurs; No JVD, RRR, No Edema Abdominal: NL Sounds; No Tenderness; No Distention, - - obese Extremities: No Edema, No Clubbing, Cyanosis Skin: No Rash or Ulcers, No Nodules or Sclerosis Neurological: Alert and Oriented x 3, NL Sensation, NL Gait, NL Muscle Strength and Tone Lines/Tubes/Other Access: Clean, Dry and Intact Peripheral IV Nutrition: Taking PO's Result Diagrams: 10/11/16 06:02 10/11/16 06:02 Microbiology and Other Data: Microbiology 10/10/16 21:50 Legionella Urinary Antigen - Final Urine Negative Legionella Streptococcus pneumoniae Ag Screen - Final Negative S. pneumo Antigen 10/10/16 15:50 Influenza Types A,B Antigen ([facility]) - Final Nasal Specimen received for Influenza A/B Molecular testing Diagnostic Imaging: CXR - mild PVC EKG - NSR CTA chest - no PE, small bilateral pleural effusions with bilateral infiltrates Assess/Plan/Problems-Billing Assessment: This is a 75 yo female with asthma, CKD, chronic pain, chronic lymphedema, RLS, essential tremor, hypothyroidism, CAD with preserved EF with recent admission for atrial flutter and NSTEMI who returned with complaints of SOB with evidence of PNA and asthma exacerbation with possible mild acute CHF. - Patient Problems (1) Pneumonia Comment: Bilateral infiltrates noted on CTA With associated asthma exacerbation wih increased oxygen demand; wears 2 L NC at night at her baseline, now on 3-4L. Flutter valve q4hr wa, encourage ambulation Continue Ceftriaxone/Doxy/Prednisone (2) Asthma exacerbation Comment: stable Start corticosteroids Albuterol nebs Cont Advair (3) Electrolyte abnormality Comment: - resolved (4) Gastric ulcer Comment: Recent EGD 10/01 shows PUD Cont PPI 40 mg BID while on ASA therapy for CAD (5) CAD (coronary artery disease) Comment: Asymptomatic h/o recent NSTEMI prior recent admission on 09/25 with preserved EF; s/p cardiac cath 10/01 showing critical stenosis to the ostium of the RCA with 99% stenosis and signifcant stenosis to mid RC; recommendation was maximum medical therapy for her CAD with no stenting to her RCA because of significant collateral flow from the LAD and is at increased risk of bleeding from dual-antiplatelet therapy. On ASA only due to recent GI bleed, continue BB Repeat ECHO due to dyspnea on exertion due to recent [place] (6) Hypertension Comment: Currently normotensive Cont home medications (7) Hypothyroidism Comment: - TSH 0.54 - continue Levothyroxine. (8) Atrial fibrillation Comment: - S/p cardioversion 09/25/16 - in sinus on Multaq and low dose metoprolol. - Recent hospitalization, Dr. Hilliard (cardiology) - recommended holding off on anticoagulation at this point due to risk of bleeding in the setting of peptic ulcer disease and recent GI bleed, but would anticoagulate if she flips back into A flutter. (9) CKD (chronic kidney disease) Comment: Stage III Appears to be around baseline (10) Lymphedema Comment: chronic (11) DVT prophylaxis Comment: - SQ heparin. (12) Full code status Status and Disposition: Patient requires continued hospital care. Anticipate discharge in 2- 3 days. PT following; pt may need subacute.
[2016-10-11 17:40] LABS: Urine Bacteria Absent (Absent); Urine Bilirubin Negative (Negative); Urine Glucose Negative (Negative); Urine Nitrite Negative (Negative)
[2016-10-11] MEDS: cefTRIAXone VIAL(*) 1,000 MG in NS 0.9% 50 ML* 50 ML IVPB SCH (18:22)
[2016-10-11] MEDS: CMCS: Rosuvastatin (NF) 20 MG TAB PO SCH (20:17)
[2016-10-11] MEDS: Venlafaxine EXT RELEASE CAP* 37.5 MG PO SCH (20:19)
[2016-10-12] MEDS: HYDROcodone/ACET. 7.5/325 LIQ* 15 ML UDC PO PRN ×3 (05:32→23:19)
[2016-10-12] MEDS: Levothyroxine TAB* 137 MCG TAB PO SCH (05:32)
[2016-10-12] MEDS: Heparin VIAL(*) 5000 UNITS/ML VIAL (FIVE THOUSAND) SUBCUT SCH ×3 (05:35→21:33)
[2016-10-12 06:37] LABS: Hematocrit 29 % (35-47); Hemoglobin 9.8 g/dl (12.0-16.0); Mean Corpuscular HGB Conc 34 g/dl (31-36); Mean Corpuscular Hemoglobin 31 pg (27-31); Mean Corpuscular Volume 92 fL (80-97); Mean Platelet Volume 8 um3 (7.4-10.4); Red Blood Count 3.18 10^6/ul (4.0-5.4); Red Cell Distribution Width 14 % (10.5-15); White Blood Count 8.2 10^3/ul (3.5-10.8)
[2016-10-12 06:53] LABS: Calcium 8.9 mg/dL (8.6-10.3); EGFR African American 34.3 (>60); EGFR Non-African American 26.7 (>60); Potassium 4.5 mmol/L (3.5-5.0)
[2016-10-12] MEDS: Montelukast Sodium TAB* 10 MG PO SCH (08:45)
[2016-10-12] MEDS: predniSONE TAB* 20 MG PO SCH (08:45)
[2016-10-12] MEDS: Primidone TAB(*) 50 MG PO SCH ×2 (08:45→21:31)
[2016-10-12] MEDS: Potassium Chlor TAB* 20 MEQ TAB.ER PO SCH (08:45)
[2016-10-12] MEDS: Metoprolol Tartrate TAB* 25 MG PO SCH ×2 (08:45→21:29)
[2016-10-12] MEDS: Lisinopril TAB* 10 MG PO SCH (08:45)
[2016-10-12] MEDS: Dronedarone TAB* 400 MG PO SCH ×2 (08:45→21:32)
[2016-10-12] MEDS: Cetirizine* 10 MG TAB PO SCH (08:45)
[2016-10-12] MEDS: Omeprazole CAP* 20 MG PO SCH ×2 (08:45→21:31)
[2016-10-12] MEDS: Furosemide IV* 10 MG/ML VIAL (40 MG) IV SLOW PU SCH (08:46)
[2016-10-12] MEDS: DOXYcycline CAP(*) 100 MG PO SCH ×2 (08:46→21:30)
[2016-10-12] MEDS: Aspirin EC Low Dose* 81 MG TAB.EC PO SCH (08:46)
[2016-10-12] MEDS: Mometasone/Formoter 100/5 MDI INH SCH ×2 (09:02→19:51)
--- NOTE | 2016-10-12 15:15 | PN ---
Subjective Date of Service: 10/12/16 Interval History: Patient seen and examined at bedside. Pt reports continued shortness of breath, worse with exertion. Denies fever, chills, chest discomfort, N/V/D. She feels tired today and is sleeping more. Tele: Sinus rhythm, rate 60's Family History: Unchanged from Admission Social History: Unchanged from Admission Past Medical History: Unchanged from Admission Objective Active Medications: Hydrocodone Bitart/Acetaminophen (Nortab 7.5/325 Liq*) 15 ml PO Q4H PRN Reason : FEVER/PAIN Albuterol (Ventolin 2.5 Mg/3 Ml Neb.Raiza*) 2.5 mg INH Q4H PRN Reason: SOB/ WHEEZING Aspirin (Aspirin Ec Low Dose*) 81 mg PO DAILY [facility] Cetirizine HCl (Zyrtec*) 10 mg PO DAILY [facility] Doxycycline Hyclate (Vibramycin Cap(*)) 100 mg PO BID [facility] Dronedarone (Multaq Tab*) 400 mg PO BID [facility] Furosemide (Lasix Iv*) 80 mg IV SLOW PU BID [facility] Heparin Sodium (Porcine) (Heparin Vial(*)) 5,000 units SUBCUT Q8HR [facility] Hydromorphone HCl (Dilaudid Iv*) 0.5 mg IV SLOW PU Q4H PRN Reason: PAIN Ceftriaxone Sodium 1,000 mg/ (Sodium Chloride) 50 mls @ 200 mls/hr IVPB Q24H [facility] Levothyroxine Sodium (Synthroid Tab*) 137 mcg PO 0600 [facility] Lisinopril (Prinivil Tab*) 20 mg PO DAILY [facility] Metoprolol Tartrate (Lopressor Tab*) 12.5 mg PO BID [facility] Mometasone Furoate/Formoterol Fumar (Dulera 100/5 Mdi*) 2 puff INH BID [facility] Montelukast Sodium (Singulair Tab*) 10 mg PO DAILY [facility] Omeprazole (Prilosec Cap*) 40 mg PO BID [facility] Potassium Chloride (Klor Con Er Tab*) 20 meq PO DAILY [facility] Prednisone (Deltasone Tab*) 40 mg PO DAILY [facility] Primidone (Mysoline Tab(*)) 50 mg PO BID [facility] Rosuvastatin Calcium (Crestor (Nf)) 20 mg PO BEDTIME [facility] Venlafaxine HCl (Effexor Xr Cap*) 37.5 mg PO BEDTIME [facility] Vital Signs 10/11/16 10/11/16 10/11/16 16:17 18:22 19:31 Temperature 97.5 F 97.4 F Pulse Rate 61 62 Respiratory 18 16 18 Rate Blood Pressure 162/76 149/76 (mmHg) O2 Sat by Pulse 97 97 Oximetry 10/11/16 10/11/16 10/11/16 20:00 20:08 20:22 Temperature Pulse Rate 98 Respiratory 18 18 18 Rate Blood Pressure (mmHg) O2 Sat by Pulse 61 Oximetry 10/11/16 10/11/16 10/12/16 21:08 23:32 00:42 Temperature 97.6 F Pulse Rate 57 Respiratory 17 18 20 Rate Blood Pressure 143/65 (mmHg) O2 Sat by Pulse 96 Oximetry 10/12/16 10/12/16 10/12/16 01:32 04:52 05:32 Temperature 97.5 F Pulse Rate 55 Respiratory 16 16 17 Rate Blood Pressure 143/64 (mmHg) O2 Sat by Pulse 99 Oximetry 10/12/16 10/12/16 10/12/16 07:32 07:55 08:00 Temperature 97.5 F Pulse Rate 54 Respiratory 18 16 18 Rate Blood Pressure 127/56 (mmHg) O2 Sat by Pulse 99 Oximetry 10/12/16 10/12/16 10/12/16 09:03 12:01 12:51 Temperature 97.8 F Pulse Rate 62 59 Respiratory 16 16 18 Rate Blood Pressure 130/65 (mmHg) O2 Sat by Pulse 98 95 Oximetry Oxygen Devices in Use Now: Nasal Cannula - 4L NC Appearance: NAD, laying in bed Respiratory: Symmetrical Chest Expansion and Respiratory Effort, Clear to Auscultation - , few exp wheezes anteriorly Cardiovascular: NL Sounds; No Murmurs; No JVD, RRR Abdominal: NL Sounds; No Tenderness; No Distention Extremities: No Edema Skin: No Rash or Ulcers Neurological: Alert and Oriented x 3, NL Muscle Strength and Tone Lines/Tubes/Other Access: Clean, Dry and Intact Peripheral IV - site benign Nutrition: Taking PO's Result Diagrams: 10/12/16 05:54 10/12/16 05:54 Microbiology and Other Data: Microbiology 10/10/16 21:50 Legionella Urinary Antigen - Final Urine Negative Legionella Streptococcus pneumoniae Ag Screen - Final Negative S. pneumo Antigen 10/10/16 15:50 Influenza Types A,B Antigen ([facility]) - Final Nasal Specimen received for Influenza A/B Molecular testing Diagnostic Imaging: CXR - mild PVC EKG - NSR CTA chest - no PE, small bilateral pleural effusions with bilateral infiltrates Assess/Plan/Problems-Billing Assessment: This is a 75 yo female with asthma, CKD, chronic pain, chronic lymphedema, RLS, essential tremor, hypothyroidism, CAD with preserved EF with recent admission for atrial flutter and NSTEMI who returned with complaints of SOB with evidence of PNA and asthma exacerbation with possible mild acute CHF. - Patient Problems (1) Pneumonia Code(s): J18.9 - PNEUMONIA, UNSPECIFIED ORGANISM SNOMED Code(s): 895932545 Comment: - Bilateral infiltrates noted on CTA - With associated asthma exacerbation wih increased oxygen demand; wears 2 L NC at night at her baseline, now back down to 2L. - Flutter valve q4hr wa, encourage ambulation - Continue Ceftriaxone/Doxy/Prednisone (2) Asthma exacerbation Code(s): J45.901 - UNSPECIFIED ASTHMA WITH (ACUTE) EXACERBATION SNOMED Code(s) : 692111614 Comment: - stable - Continue corticosteroids, will start taper - Albuterol nebs - Cont Advair (3) Electrolyte abnormality Code(s): E87.8 - OTH DISORDERS OF ELECTROLYTE AND FLUID BALANCE, NEC SNOMED Code(s): 200989297 Comment: - resolved (4) Gastric ulcer Code(s): K25.9 - GASTRIC ULCER, UNSP ACUTE OR CHRONIC, W/O HEMOR OR PERF SNOMED Code(s): 656591466 Comment: - Recent EGD 10/01 shows PUD - Cont PPI 40 mg BID while on ASA therapy for CAD (5) CAD (coronary artery disease) Code(s): I25.10 - ATHSCL HEART DISEASE OF [place] CORONARY ARTERY W/O ANG PCTRS SNOMED Code(s): 10497621 Comment: - Asymptomatic - h/o recent NSTEMI prior recent admission on 09/25 with preserved EF; s/p cardiac cath 10/01 showing critical stenosis to the ostium of the RCA with 99% stenosis and signifcant stenosis to mid RC; recommendation was maximum medical therapy for her CAD with no stenting to her RCA because of significant collateral flow from the LAD and is at increased risk of bleeding from dual- antiplatelet therapy. - On ASA only due to recent GI bleed, continue BB - Repeat ECHO due to dyspnea on exertion due to recent [place] (6) CKD (chronic kidney disease) Code(s): N18.9 - CHRONIC KIDNEY DISEASE, UNSPECIFIED SNOMED Code(s): 567841887 Comment: - Stage III - Creatinine continues to elevate, will hold IV lasix and recheck labs in the morning - May need to consider stopping ACEI (7) Hypertension Code(s): I10 - ESSENTIAL (PRIMARY) HYPERTENSION SNOMED Code(s): 97802012 Comment: - Currently normotensive - Cont home medications (8) Hypothyroidism Code(s): E03.9 - HYPOTHYROIDISM, UNSPECIFIED SNOMED Code(s): 71861752 Comment: - TSH 4.14 - continue Levothyroxine. (9) Atrial fibrillation Code(s): I48.91 - UNSPECIFIED ATRIAL FIBRILLATION SNOMED Code(s): 87781544 Comment: - S/p cardioversion 09/25/16 - in sinus on Multaq and low dose metoprolol. - Recent hospitalization, Dr. Hilliard (cardiology) - recommended holding off on anticoagulation at this point due to risk of bleeding in the setting of peptic ulcer disease and recent GI bleed, but would anticoagulate if she flips back into A flutter. (10) Lymphedema Code(s): I89.0 - LYMPHEDEMA, NOT ELSEWHERE CLASSIFIED SNOMED Code(s): 544487914 Comment: - chronic (11) DVT prophylaxis Code(s): GWC8672 - SNOMED Code(s): 167827726 Comment: - SQ heparin. (12) Full code status Code(s): Z78.9 - OTHER SPECIFIED HEALTH STATUS SNOMED Code(s): 548458457 Status and Disposition: Patient requires continued hospital care. Anticipate discharge in 2- 3 days. Discharge to home when medically stable.
[2016-10-12] MEDS: cefTRIAXone VIAL(*) 1,000 MG in NS 0.9% 50 ML* 50 ML IVPB SCH (18:09)
[2016-10-12] MEDS: CMCS: Rosuvastatin (NF) 20 MG TAB PO SCH (21:30)
[2016-10-12] MEDS: Venlafaxine EXT RELEASE CAP* 37.5 MG PO SCH (21:32)
[2016-10-13] MEDS: Levothyroxine TAB* 137 MCG TAB PO SCH (05:40)
[2016-10-13] MEDS: Heparin VIAL(*) 5000 UNITS/ML VIAL (FIVE THOUSAND) SUBCUT SCH ×3 (05:40→21:00)
[2016-10-13 06:24] LABS: BUN/Creatinine Ratio 39.2 (8-20); Calcium 8.9 mg/dL (8.6-10.3); EGFR African American 38.6 (>60); Potassium 4.6 mmol/L (3.5-5.0)
[2016-10-13] MEDS: HYDROcodone/ACET. 7.5/325 LIQ* 15 ML UDC PO PRN ×3 (09:11→18:09)
[2016-10-13] MEDS: Aspirin EC Low Dose* 81 MG TAB.EC PO SCH (09:13)
[2016-10-13] MEDS: Potassium Chlor TAB* 20 MEQ TAB.ER PO SCH (09:13)
[2016-10-13] MEDS: Omeprazole CAP* 20 MG PO SCH ×2 (09:13→20:59)
[2016-10-13] MEDS: Dronedarone TAB* 400 MG PO SCH ×2 (09:14→20:59)
[2016-10-13] MEDS: Montelukast Sodium TAB* 10 MG PO SCH (09:14)
[2016-10-13] MEDS: predniSONE TAB* 20 MG PO SCH (09:15)
[2016-10-13] MEDS: DOXYcycline CAP(*) 100 MG PO SCH ×2 (09:16→20:58)
[2016-10-13] MEDS: Cetirizine* 10 MG TAB PO SCH (09:17)
[2016-10-13] MEDS: Lisinopril TAB* 10 MG PO SCH (09:21)
[2016-10-13] MEDS: Mometasone/Formoter 100/5 MDI INH SCH ×2 (09:50→23:18)
[2016-10-13] MEDS: Metoprolol Tartrate TAB* 25 MG PO SCH ×2 (09:52→20:56)
[2016-10-13] MEDS: Primidone TAB(*) 50 MG PO SCH ×2 (09:53→20:58)
--- NOTE | 2016-10-13 16:13 | PN ---
Subjective Date of Service: 10/13/16 Interval History: Patient seen and examined at bedside. Pt states that she continues to have dyspnea with exertion that is worse than her baseline. She also reports feeling feverish and chills, she is bringing up clear and white mucous, and has postnasal drip. Denies chest discomfort, N/V/D. Tele: Sinus kaitlyn to sinus rhythm, rate 50-60's. Family History: Unchanged from Admission Social History: Unchanged from Admission Past Medical History: Unchanged from Admission Objective Active Medications: Hydrocodone Bitart/Acetaminophen (Nortab 7.5/325 Liq*) 15 ml PO Q4H PRN Reason : FEVER/PAIN Albuterol (Ventolin 2.5 Mg/3 Ml Neb.Raiza*) 2.5 mg INH Q4H PRN Reason: SOB/ WHEEZING Aspirin (Aspirin Ec Low Dose*) 81 mg PO DAILY [facility] Cetirizine HCl (Zyrtec*) 10 mg PO DAILY [facility] Doxycycline Hyclate (Vibramycin Cap(*)) 100 mg PO BID [facility] Dronedarone (Multaq Tab*) 400 mg PO BID [facility] Heparin Sodium (Porcine) (Heparin Vial(*)) 5,000 units SUBCUT Q8HR [facility] Hydromorphone HCl (Dilaudid Iv*) 0.5 mg IV SLOW PU Q4H PRN Reason: PAIN Ceftriaxone Sodium 1,000 mg/ (Sodium Chloride) 50 mls @ 200 mls/hr IVPB Q24H [facility] Levothyroxine Sodium (Synthroid Tab*) 137 mcg PO 0600 [facility] Lisinopril (Prinivil Tab*) 20 mg PO DAILY [facility] Metoprolol Tartrate (Lopressor Tab*) 12.5 mg PO BID [facility] Mometasone Furoate/Formoterol Fumar (Dulera 100/5 Mdi*) 2 puff INH BID [facility] Montelukast Sodium (Singulair Tab*) 10 mg PO DAILY [facility] Omeprazole (Prilosec Cap*) 40 mg PO BID [facility] Potassium Chloride (Klor Con Er Tab*) 20 meq PO DAILY [facility] Prednisone (Deltasone Tab*) 30 mg PO DAILY [facility] Primidone (Mysoline Tab(*)) 50 mg PO BID [facility] Rosuvastatin Calcium (Crestor (Nf)) 20 mg PO BEDTIME [facility] Venlafaxine HCl (Effexor Xr Cap*) 37.5 mg PO BEDTIME [facility] Vital Signs 10/12/16 10/12/16 10/12/16 18:13 19:54 20:00 Temperature Pulse Rate 64 Respiratory 18 16 16 Rate Blood Pressure (mmHg) O2 Sat by Pulse 98 Oximetry 10/12/16 10/12/16 10/12/16 20:13 20:26 23:19 Temperature 97.6 F Pulse Rate 66 Respiratory 16 20 20 Rate Blood Pressure 161/72 (mmHg) O2 Sat by Pulse 100 Oximetry 10/13/16 10/13/16 10/13/16 00:33 01:19 04:02 Temperature 97.5 F 97.8 F Pulse Rate 61 56 Respiratory 20 18 16 Rate Blood Pressure 149/66 134/60 (mmHg) O2 Sat by Pulse 99 97 Oximetry 10/13/16 10/13/16 10/13/16 07:32 08:00 09:11 Temperature 97.8 F Pulse Rate 55 Respiratory 16 18 16 Rate Blood Pressure 144/68 (mmHg) O2 Sat by Pulse 100 Oximetry 10/13/16 10/13/16 10/13/16 09:51 11:11 12:05 Temperature 97.5 F Pulse Rate 62 54 Respiratory 18 18 16 Rate Blood Pressure 128/50 (mmHg) O2 Sat by Pulse 95 99 Oximetry 10/13/16 15:24 Temperature 97.5 F Pulse Rate 62 Respiratory 18 Rate Blood Pressure 129/50 (mmHg) O2 Sat by Pulse 98 Oximetry Oxygen Devices in Use Now: Nasal Cannula - 2L Appearance: NAD, laying in bed Eyes: No Scleral Icterus, PERRLA Respiratory: Symmetrical Chest Expansion and Respiratory Effort, Clear to Auscultation Cardiovascular: NL Sounds; No Murmurs; No JVD, RRR Abdominal: NL Sounds; No Tenderness; No Distention Extremities: - - Trace to 1+ generalized edema Neurological: Alert and Oriented x 3, NL Muscle Strength and Tone Lines/Tubes/Other Access: Clean, Dry and Intact Peripheral IV - site benign Nutrition: Taking PO's Result Diagrams: 10/12/16 05:54 10/13/16 05:47 Microbiology and Other Data: Microbiology 10/10/16 21:50 Legionella Urinary Antigen - Final Urine Negative Legionella Streptococcus pneumoniae Ag Screen - Final Negative S. pneumo Antigen 10/10/16 15:50 Influenza Types A,B Antigen ([facility]) - Final Nasal Specimen received for Influenza A/B Molecular testing Diagnostic Imaging: CXR - mild PVC EKG - NSR CTA chest - no PE, small bilateral pleural effusions with bilateral infiltrates Assess/Plan/Problems-Billing Assessment: This is a 75 yo female with asthma, CKD, chronic pain, chronic lymphedema, RLS, essential tremor, hypothyroidism, CAD with preserved EF with recent admission for atrial flutter and NSTEMI who returned with complaints of SOB with evidence of PNA and asthma exacerbation with possible mild acute CHF. - Patient Problems (1) Pneumonia Code(s): J18.9 - PNEUMONIA, UNSPECIFIED ORGANISM SNOMED Code(s): 744554107 Comment: - Afebrile, no leukocytosis - Bilateral infiltrates noted on CTA - With associated asthma exacerbation wih increased oxygen demand; wears 2 L NC at night at her baseline, now back down to 2L continuous - Urine negative for legionella and S. Pneumo, sputum culture - oral contamination - Flutter valve q4hr wa, encourage ambulation - Continue Ceftriaxone/Doxy/Prednisone (2) Asthma exacerbation Code(s): J45.901 - UNSPECIFIED ASTHMA WITH (ACUTE) EXACERBATION SNOMED Code(s) : 749554056 Comment: - stable - Continue corticosteroids, continue taper - Albuterol nebs - Cont Advair (3) Electrolyte abnormality Code(s): E87.8 - OTH DISORDERS OF ELECTROLYTE AND FLUID BALANCE, NEC SNOMED Code(s): 638018927 Comment: - resolved (4) Gastric ulcer Code(s): K25.9 - GASTRIC ULCER, UNSP ACUTE OR CHRONIC, W/O HEMOR OR PERF SNOMED Code(s): 832036877 Comment: - Recent EGD 10/01 shows PUD - Continue PPI 40 mg BID while on ASA therapy for CAD (5) CAD (coronary artery disease) Code(s): I25.10 - ATHSCL HEART DISEASE OF [place] CORONARY ARTERY W/O ANG PCTRS SNOMED Code(s): 85012917 Comment: - Asymptomatic - h/o recent NSTEMI prior recent admission on 09/25 with preserved EF; s/p cardiac cath 10/01 showing critical stenosis to the ostium of the RCA with 99% stenosis and signifcant stenosis to mid RC; recommendation was maximum medical therapy for her CAD with no stenting to her RCA because of significant collateral flow from the LAD and is at increased risk of bleeding from dual- antiplatelet therapy. - On ASA only due to recent GI bleed, continue BB - Repeat ECHO due to dyspnea on exertion due to recent [place] (6) CKD (chronic kidney disease) Code(s): N18.9 - CHRONIC KIDNEY DISEASE, UNSPECIFIED SNOMED Code(s): 754182477 Comment: - Stage III - Creatinine improved after holding IV lasix and recheck labs in the morning (7) Hypertension Code(s): I10 - ESSENTIAL (PRIMARY) HYPERTENSION SNOMED Code(s): 70100340 Comment: - Currently normotensive - Continue home medications (8) Hypothyroidism Code(s): E03.9 - HYPOTHYROIDISM, UNSPECIFIED SNOMED Code(s): 25180085 Comment: - TSH 4.14 - continue Levothyroxine. (9) Atrial fibrillation Code(s): I48.91 - UNSPECIFIED ATRIAL FIBRILLATION SNOMED Code(s): 42124554 Comment: - S/p cardioversion 09/25/16 - in sinus on Multaq and low dose metoprolol. - Recent hospitalization, Dr. Hilliard (cardiology) - recommended holding off on anticoagulation at this point due to risk of bleeding in the setting of peptic ulcer disease and recent GI bleed, but would anticoagulate if she flips back into A flutter. (10) Lymphedema Code(s): I89.0 - LYMPHEDEMA, NOT ELSEWHERE CLASSIFIED SNOMED Code(s): 057197165 Comment: - chronic (11) DVT prophylaxis Code(s): MRP0725 - SNOMED Code(s): 383223637 Comment: - SQ heparin. (12) Full code status Code(s): Z78.9 - OTHER SPECIFIED HEALTH STATUS SNOMED Code(s): 998264958 Status and Disposition: Patient requires continued hospital care. Anticipate discharge in 2- 3 days. Discharge to home when medically stable.
[2016-10-13] MEDS: cefTRIAXone VIAL(*) 1,000 MG in NS 0.9% 50 ML* 50 ML IVPB SCH (18:09)
[2016-10-13] MEDS: CMCS: Rosuvastatin (NF) 20 MG TAB PO SCH (20:58)
[2016-10-13] MEDS: Venlafaxine EXT RELEASE CAP* 37.5 MG PO SCH (20:59)
[2016-10-14] MEDS: Heparin VIAL(*) 5000 UNITS/ML VIAL (FIVE THOUSAND) SUBCUT SCH ×3 (05:43→21:09)
[2016-10-14] MEDS: Levothyroxine TAB* 137 MCG TAB PO SCH (05:44)
[2016-10-14 06:23] LABS: BUN/Creatinine Ratio 37.8 (8-20); Calcium 8.7 mg/dL (8.6-10.3); EGFR African American 32.5 (>60); EGFR Non-African American 25.2 (>60); Potassium 4.9 mmol/L (3.5-5.0)
[2016-10-14] MEDS: HYDROcodone/ACET. 7.5/325 LIQ* 15 ML UDC PO PRN (08:51)
[2016-10-14] MEDS: Lisinopril TAB* 10 MG PO SCH (08:54)
[2016-10-14] MEDS: Primidone TAB(*) 50 MG PO SCH ×2 (08:54→21:06)
[2016-10-14] MEDS: Omeprazole CAP* 20 MG PO SCH ×2 (08:54→21:05)
[2016-10-14] MEDS: DOXYcycline CAP(*) 100 MG PO SCH ×2 (08:54→21:05)
[2016-10-14] MEDS: Dronedarone TAB* 400 MG PO SCH ×2 (08:55→21:05)
[2016-10-14] MEDS: Metoprolol Tartrate TAB* 25 MG PO SCH ×2 (08:55→21:06)
[2016-10-14] MEDS: Montelukast Sodium TAB* 10 MG PO SCH (08:55)
[2016-10-14] MEDS: predniSONE TAB* 20 MG PO SCH (08:55)
[2016-10-14] MEDS: Cetirizine* 10 MG TAB PO SCH (08:55)
[2016-10-14] MEDS: Aspirin EC Low Dose* 81 MG TAB.EC PO SCH (08:55)
[2016-10-14] MEDS: Potassium Chlor TAB* 20 MEQ TAB.ER PO SCH (08:55)
[2016-10-14] MEDS: Mometasone/Formoter 100/5 MDI INH SCH ×2 (08:59→20:53)
--- NOTE | 2016-10-14 12:00 | PN ---
Subjective Date of Service: 10/14/16 Interval History: Pt reports she feels better but continues to feel weak, complains of cough with sputum production (white sputum), reports sob when coughing and feels that she needs oxygen due to this. He has been ambulating OOB to bathroom with minimal assistance. No difficulty urinating, denies dysuria or increased frequency. No Fevers or chills but did report "sweats" and thinks its secondary to her Effexor being stopped at admission. Reports good appetite. Normal BMs. No fevers or chills. Family History: Unchanged from Admission Social History: Unchanged from Admission Past Medical History: Unchanged from Admission Objective Active Medications: Hydrocodone Bitart/Acetaminophen (Nortab 7.5/325 Liq*) 15 ml PO Q4H PRN PRN Reason: FEVER/PAIN Last Admin: 10/14/16 08:51 Dose: 15 ml Albuterol (Ventolin 2.5 Mg/3 Ml Neb.Raiza*) 2.5 mg INH Q4H PRN PRN Reason: SOB/WHEEZING Last Admin: 10/09/16 13:30 Dose: 2.5 mg Aspirin (Aspirin Ec Low Dose*) 81 mg PO DAILY [facility] Last Admin: 10/14/16 08:55 Dose: 81 mg Cetirizine HCl (Zyrtec*) 10 mg PO DAILY [facility] Last Admin: 10/14/16 08:55 Dose: 10 mg Doxycycline Hyclate (Vibramycin Cap(*)) 100 mg PO BID [facility] Last Admin: 10/14/16 08:54 Dose: 100 mg Dronedarone (Multaq Tab*) 400 mg PO BID [facility] Last Admin: 10/14/16 08:55 Dose: 400 mg Heparin Sodium (Porcine) (Heparin Vial(*)) 5,000 units SUBCUT Q8HR [facility] Last Admin: 10/14/16 05:43 Dose: 5,000 units Hydromorphone HCl (Dilaudid Iv*) 0.5 mg IV SLOW PU Q4H PRN PRN Reason: PAIN Last Admin: 10/11/16 20:08 Dose: 0.5 mg Ceftriaxone Sodium 1,000 mg/ (Sodium Chloride) 50 mls @ 200 mls/hr IVPB Q24H [facility] Last Admin: 10/13/16 18:09 Dose: 200 mls/hr Levothyroxine Sodium (Synthroid Tab*) 137 mcg PO 0600 [facility] Last Admin: 10/14/16 05:44 Dose: 137 mcg Lisinopril (Prinivil Tab*) 20 mg PO DAILY [facility] Last Admin: 10/14/16 08:54 Dose: 20 mg Metoprolol Tartrate (Lopressor Tab*) 12.5 mg PO BID [facility] Last Admin: 10/14/16 08:55 Dose: 12.5 mg Mometasone Furoate/Formoterol Fumar (Dulera 100/5 Mdi*) 2 puff INH BID [facility] Last Admin: 10/14/16 08:59 Dose: 2 puff Montelukast Sodium (Singulair Tab*) 10 mg PO DAILY [facility] Last Admin: 10/14/16 08:55 Dose: 10 mg Omeprazole (Prilosec Cap*) 40 mg PO BID [facility] Last Admin: 10/14/16 08:54 Dose: 40 mg Potassium Chloride (Klor Con Er Tab*) 20 meq PO DAILY [facility] Last Admin: 10/14/16 08:55 Dose: 20 meq Prednisone (Deltasone Tab*) 30 mg PO DAILY [facility] Last Admin: 10/14/16 08:55 Dose: 30 mg Primidone (Mysoline Tab(*)) 50 mg PO BID [facility] Last Admin: 10/14/16 08:54 Dose: 50 mg Rosuvastatin Calcium (Crestor (Nf)) 20 mg PO BEDTIME [facility] Last Admin: 10/13/16 20:58 Dose: 20 mg Venlafaxine HCl (Effexor Xr Cap*) 37.5 mg PO BEDTIME [facility] Last Admin: 10/13/16 20:59 Dose: 37.5 mg Vital Signs 10/13/16 10/13/16 10/13/16 12:05 12:43 13:58 Temperature 97.5 F Pulse Rate 54 Respiratory 16 18 18 Rate Blood Pressure 128/50 (mmHg) O2 Sat by Pulse 99 Oximetry 10/13/16 10/13/16 10/13/16 14:05 15:24 15:58 Temperature 97.5 F Pulse Rate 62 Respiratory 18 18 18 Rate Blood Pressure 129/50 (mmHg) O2 Sat by Pulse 98 Oximetry 10/13/16 10/13/16 10/13/16 18:09 19:15 20:00 Temperature 97.7 F Pulse Rate 64 64 Respiratory 18 16 16 Rate Blood Pressure 148/68 (mmHg) O2 Sat by Pulse 97 97 Oximetry 10/14/16 10/14/16 10/14/16 00:15 03:18 06:41 Temperature 97.5 F 97.6 F Pulse Rate 65 62 Respiratory 16 16 18 Rate Blood Pressure 157/68 150/71 (mmHg) O2 Sat by Pulse 99 100 Oximetry 10/14/16 10/14/16 10/14/16 07:37 08:51 09:01 Temperature 97.4 F Pulse Rate 61 72 Respiratory 14 18 18 Rate Blood Pressure 153/73 (mmHg) O2 Sat by Pulse 100 99 Oximetry 10/14/16 10/14/16 10:51 11:11 Temperature 97.5 F Pulse Rate 62 Respiratory 18 14 Rate Blood Pressure 144/58 (mmHg) O2 Sat by Pulse 100 Oximetry Oxygen Devices in Use Now: Nasal Cannula - 2L Result Diagrams: 10/12/16 05:54 10/14/16 05:48 Microbiology and Other Data: Microbiology 10/10/16 21:50 Legionella Urinary Antigen - Final Urine Negative Legionella Streptococcus pneumoniae Ag Screen - Final Negative S. pneumo Antigen 10/10/16 15:50 Influenza Types A,B Antigen ([facility]AN) - Final Nasal Specimen received for Influenza A/B Molecular testing Diagnostic Imaging: CXR - mild PVC EKG - NSR CTA chest - no PE, small bilateral pleural effusions with bilateral infiltrates Assess/Plan/Problems-Billing Assessment: This is a 75 yo female with asthma, CKD, chronic pain, chronic lymphedema, RLS, essential tremor, hypothyroidism, CAD with preserved EF with recent admission for atrial flutter and NSTEMI who returned with complaints of SOB with evidence of PNA and asthma exacerbation with possible mild acute CHF. - Patient Problems (1) Pneumonia Comment: - Slow to recover - Bilateral infiltrates noted on CTA on admission. No PE. Influenza negative. - Afebrile, no leukocytosis - With associated asthma exacerbation wih increased oxygen demand; wears 2 L NC at night at her baseline, now back down to 2L continuous - trialed off oxygen today down to 92% on RA - Urine negative for legionella and S. Pneumo, sputum culture - oral contamination - Flutter valve q4hr wa, encourage ambulation - D/C Ceftriaxone (total of 5 days); Continue Doxycyline 01/01 - Continue to taper Prednisone - Dulera INH and prn duonebs - Pulm consult pending (2) CKD (chronic kidney disease) Comment: - Stage III - Creatinine increasing, slightly above baseline. FENA from 10/11 showing Intrinsic most likely ATN; Plan to recheck FENA today; check Renal U/S. Plan to Hold Lisinopril at this time. Urine output wnls. (3) Asthma exacerbation Comment: - stable - Continue corticosteroids taper - Albuterol nebs - Cont Dulera (4) Electrolyte abnormality Comment: - resolved (5) Gastric ulcer Comment: - Recent EGD 10/01 shows PUD - HH stable - Continue PPI 40 mg BID while on ASA therapy for CAD (6) CAD (coronary artery disease) Comment: - Asymptomatic - h/o recent NSTEMI prior recent admission on 09/25 with preserved EF; s/p cardiac cath 10/01 showing critical stenosis to the ostium of the RCA with 99% stenosis and signifcant stenosis to mid RC; recommendation was maximum medical therapy for her CAD with no stenting to her RCA because of significant collateral flow from the LAD and is at increased risk of bleeding from dual- antiplatelet therapy. - On ASA only due to recent GI bleed, continue BB - Repeat ECHO due to dyspnea on exertion due to recent NC (7) Hypertension Comment: - Currently normotensive - Continue home medications (8) Hypothyroidism Comment: - TSH 4.14 - continue Levothyroxine. (9) Atrial fibrillation Comment: - S/p cardioversion 09/25/16 - in sinus on Multaq and low dose metoprolol. - Recent hospitalization, Dr. Hilliard (cardiology) - recommended holding off on anticoagulation at this point due to risk of bleeding in the setting of peptic ulcer disease and recent GI bleed, but would anticoagulate if she flips back into A flutter. (10) Lymphedema Comment: - chronic (11) DVT prophylaxis Comment: - SQ heparin. (12) Full code status Status and Disposition: Inpatient with pneumonia, slow to recover. Will ask PT to re-evaluate need for subacute.
[2016-10-14] MEDS ORDERED: Lactobacillus Acidophilu (GG)* 1 CAP CAP PO ONE (12:02)
--- NOTE | 2016-10-14 12:48 | ECHO ---
Patient: JOCELYNE CHILDERS [facility] Rec#: [id number] : 1940 Date: 10/14/2016 Age: 75y Height: 154.94 cm / 61.0 in Weight: 112.49 kg / 247.9 lbs Sex: F BSA: 2.07 Room#: [facility] Admit Date#: 10/09/2016 Type: Inpatient Referring: Fawn Vega NP Reading: Delroy Hilliard MD [employer] Coordinator: Fawn Calixto [employer] Coordinator: Heike Lua RDCS CC: Manas Villeda MD Transthoracic Echocardiogram Indication: Dyspnea, CHF BP: 157/68 HR: 64 Rhythm: NSR Findings History: Asthma, CKD, chronic lymphedema, hypothyroidism, essential tremmor, CAD, A-flutter, NSTEMI, obesity. Technical Comments: The study is technically limited due to patient body habitus. Completed at 0840. Left Ventricle: The left ventricular chamber size is normal. Septal wall hypertrophy is observed. Global left ventricular wall motion and contractility are within normal limits. Left ventricular systolic function is at the lower limits of normal. The estimated ejection fraction is 50-55%. There is no consistent Doppler evidence of clinically significant diastolic dysfunction. Left Atrium: The left atrium is mildly dilated. Right Ventricle: The right ventricular cavity size is normal. The right ventricular global systolic function is normal. Right Atrium: The right atrium is slightly dilated. Aortic Valve: The aortic valve is trileaflet. There is evidence of aortic sclerosis without stenosis. There is no evidence of aortic regurgitation. There is no evidence of aortic stenosis. Mitral Valve: There is mitral annular calcification. The mitral valve leaflets are mildly thickened. There is mild mitral regurgitation. There is no evidence of mitral stenosis. Tricuspid Valve: The tricuspid valve leaflets are normal. There is trace to mild tricuspid regurgitation. Unable to estimate the right ventricular systolic pressure. There is no tricuspid stenosis. Pulmonic Valve: The pulmonic valve appears normal. There is trace to mild pulmonic regurgitation. There is no pulmonic stenosis. Pericardium: The pericardium appears normal. A pericardial fat pad is visualized. Aorta: There is no dilatation of the ascending aorta. The aortic arch is not well visualized. There is no dilation of the aortic root. Pulmonary Artery: The main pulmonary artery appears normal. Venous: The venous system is not well visualized. Summary: There are no significant changes when compared to the previous study done on DANIEL 09/25/16 Conclusions Global left ventricular wall motion and contractility are within normal limits. Left ventricular systolic function is at the lower limits of normal. The estimated ejection fraction is 50-55%. There is no consistent Doppler evidence of clinically significant diastolic dysfunction. There is evidence of aortic sclerosis without stenosis. There is no evidence of aortic regurgitation. There is mild mitral regurgitation. There is trace to mild tricuspid regurgitation. Unable to estimate the right ventricular systolic pressure. The pericardium appears normal. There are no significant changes when compared to the previous study done on DANIEL 09/25/16 Measurements Name Value Normal Range RVIDd (AP) 2D 3.1 cm (0.9 - 2.6) RVDdMajor (2D) 3.8 cm (2.2 - 4.4) RAd ISD 4CH 5.1 cm (3.4 - 4.9) RA (A4C)W 4 cm (2.9 - 4.6) IVSd (2D) 1.3 cm (0.6 - 1) LVPWd (2D) 1 cm (0.6 - 1) LVIDd (2D) 4.4 cm (3.6 - 5.4) LVIDs (2D) 3.6 cm - LV FS (2D) 19 % (25 - 45) Aortic Annulus 1.9 cm (1.4 - 2.6) Ao root diameter (2D) 3 cm (2.1 - 3.5) Ascending Ao 2.8 cm (2.1 - 3.4) Descending Ao 0.7 cm - LA dimension (AP) 2D 3.9 cm (2.3 - 3.8) LAd ISD 4CH 5.2 cm (2.9 - 5.3) LA ISD 4CH W 4.8 cm (2.5 - 4.5) Name Value Normal Range LA ESV SP 4CH (A/L) 70 ml - LA ESV SP 2CH (A/L) 76 ml - LA ESV BP (A/L) 75 ml - LA ESV BP (A/L) index 36.36 ml/m2 - LA ESV SP 4CH (MOD) 65 ml - LA ESV SP 2CH (MOD) 72 ml - Name Value Normal Range MV E-wave Vmax 1 m/sec - MV deceleration time 172 msec - MV A-wave Vmax 0.8 m/sec - MV E:A ratio 1.3 ratio - LV septal e' Vmax 0.08 m/sec - LV lateral e' Vmax 0.1 m/sec - LV E:e' septal ratio 12.5 ratio - LV E:e' lateral ratio 10 ratio - Name Value Normal Range AV Vmax 1.5 m/sec - AV VTI 37 cm - AV peak gradient 9.53 mmHg - AV mean gradient 5.47 mmHg - LVOT Vmax 1.3 m/sec - LVOT VTI 28.6 cm - LVOT peak gradient 6.62 mmHg - LVOT mean gradient 3.17 mmHg - Name Value Normal Range PV Vmax 1.2 m/sec - PV peak gradient 5.38 mmHg -
--- NOTE | 2016-10-14 14:17 | RAD ---
INDICATION: Acute tubular necrosis COMPARISON: None TECHNIQUE: Longitudinal and transverse scans of the kidneys were obtained. FINDINGS: Kidneys: The kidneys are normal in size. There is mild increased echogenicity suggestive of medical renal disease. No renal masses, calculi, or hydronephrosis is seen. The right kidney measures 10.1 x 4.3 x 5.1 cm and the left kidney 10.4 x 4.6 x 4.3 cm. Other: None IMPRESSION: MILD INCREASED ECHOGENICITY SUGGESTS MEDICAL RENAL DISEASE. NO HYDRONEPHROSIS
[2016-10-14] MEDS ORDERED: Albuterol HFA INHALER* 8 gm MDI INH PRN (17:54)
[2016-10-14] MEDS: Venlafaxine EXT RELEASE CAP* 37.5 MG PO SCH (21:05)
[2016-10-14] MEDS: Lactobacillus Acidophilu (GG)* 1 CAP CAP PO SCH (21:05)
[2016-10-14] MEDS: CMCS: Rosuvastatin (NF) 20 MG TAB PO SCH (21:05)
[2016-10-14] MEDS: Albuterol HFA INHALER* 8 gm MDI INH PRN (22:30)
--- NOTE | 2016-10-15 01:40 | CONS ---
PULMONARY CONSULTATION REPORT: DATE OF CONSULT: 10/14/16 CONSULTATION REQUESTED BY: Annika Varner NP REASON FOR CONSULT: Evaluation of shortness of breath. HISTORY OF PRESENT ILLNESS: The patient is a 75-year-old female with history of asthma and mild obstructive sleep apnea known to me from outpatient evaluation. The patient was admitted for evaluation of shortness of breath and is being treated for pneumonia and asthma exacerbation. The patient without much improvement since admission. Pulmonary consultation was requested for further recommendations regarding her management. The patient was seen and examined at bedside by me. The patient reported only slight improvement in her shortness of breath. Reports productive cough with thick white phlegm. The patient denies fevers. The patient has a history of GERD and is on medications. The patient also reports that she has not been compliant with her diuretics as prescribed prior to admission. The patient was noted to have patchy air space opacities bilaterally consistent with pneumonia. The patient also noted to have small bilateral pleural effusions. No significant mediastinal or hilar adenopathy was noted. The patient started on prednisone and antibiotics. No white count noted. No fevers documented. I have personally reviewed x-ray and CT scan of the chest. PAST MEDICAL HISTORY: 1. Constipation. 2. Asthma. 3. Morbid obesity. 4. Restless legs syndrome. 5. Essential tremor. 6. Chronic pain. 7. Seasonal allergies. 8. GERD. 9. Hypothyroidism. 10. Chronic lymphedema. 11. Chronic chest pain. MEDICATIONS: 1. Omeprazole 40 mg daily. 2. Effexor 37.5 mg at bedtime. 3. Primidone 50 mg twice daily. 4. Levothyroxine 137 mcg daily. 5. Furosemide 40 mg daily. 6. Doxycycline 100 mg twice daily. 7. Singulair 10 mg daily. 8. Xyzal 5 mg daily. 9. Torsemide 60 mg daily. 10. Hydrocodone and acetaminophen/[place] 10/325 mg 2 tablets q.6 hours as needed. 11. Potassium chloride 20 mEq daily. 12. Aspirin 81 mg daily. 13. Lisinopril 20 mg daily. 14. Multaq 400 mg twice daily. 15. Metoprolol 12.5 mg twice daily. 16. Crestor 20 mg at bedtime. ALLERGIES: TIAGABINE, AMITRIPTYLINE, ATORVASTATIN, CONTRAST, MISOPROSTOL, THEOPHYLLINE, TIZANIDINE, FENTANYL PATCH. FAMILY HISTORY: Noncontributory to current complaint. SOCIAL HISTORY: The patient lives at home with her . No alcohol, tobacco, or recreational drug use. REVIEW OF SYSTEMS: All 14 systems reviewed and as per HPI. PHYSICAL EXAM: Morbidly obese female in bed, in no apparent distress. Vital Signs: Temperature 97.5, heart rate 62 beats per minute, respiratory rate 16 per minute, O2 sat 100% on room air, blood pressure 163/67. HEENT: Pupils equal, reactive to light. Mucous membranes moist. Neck: Supple. No JVD. Chest: Diminished air entry bilaterally, rhonchi present. Cardiovascular: S1, S2 present. Regular. Abdomen: Obese. Bowel sounds present. Extremities: Normal range of motion, trace edema bilaterally. Neuro: No focal deficits. Skin: No rashes or bruises. DIAGNOSTIC STUDIES/LAB DATA: White count 8.2, hemoglobin 9.8, hematocrit 29, platelet count 193. INR 1.0. Sodium 138, potassium 4.9, chloride 105, bicarb 27, BUN 73, creatinine 1.94, glucose 133. BNP 610. CTA as described above in HPI. Echocardiogram showed evidence of normal EF of 50% to 55%. Evidence of diastolic dysfunction. No significant valvular abnormalities. IMPRESSION AND RECOMMENDATIONS: A 75-year-old morbidly obese female with a history of asthma and mild obstructive sleep apnea, not being treated, currently admitted with worsening shortness of breath, being treated for acute asthma exacerbation and pneumonia. 1. Acute asthma exacerbation. 2. Community-acquired pneumonia. The patient with slight improvement since admission. The patient also might have component of heart failure or fluid overload. Would recommend increasing dose of Lasix. Continue with current dose of prednisone. Would recommend rescue inhaler and nebulizers every 4 hours. Agree with doxycycline. DVT prophylaxis. Thank you for allowing me to participate in the care of your patient. Will follow up with you. [id number]/[facility] #: [id number] PAMELA
[2016-10-15] MEDS: Levothyroxine TAB* 137 MCG TAB PO SCH (05:49)
[2016-10-15] MEDS: Heparin VIAL(*) 5000 UNITS/ML VIAL (FIVE THOUSAND) SUBCUT SCH ×3 (05:49→20:57)
[2016-10-15 06:34] LABS: Hematocrit 30 % (35-47); Hemoglobin 9.9 g/dl (12.0-16.0); Mean Corpuscular HGB Conc 33 g/dl (31-36); Mean Corpuscular Hemoglobin 31 pg (27-31); Mean Corpuscular Volume 93 fL (80-97); Mean Platelet Volume 8 um3 (7.4-10.4); Red Blood Count 3.26 10^6/ul (4.0-5.4); Red Cell Distribution Width 14 % (10.5-15); White Blood Count 13.3 10^3/ul (3.5-10.8)
[2016-10-15 06:58] LABS: BUN/Creatinine Ratio 47.2 (8-20); Calcium 9.1 mg/dL (8.6-10.3); EGFR Non-African American 31.1 (>60); Potassium 5.4 mmol/L (3.5-5.0)
[2016-10-15] MEDS ORDERED: Furosemide IV* 10 MG/ML 2 ML VIAL (20 MG) IV ONE (09:00)
[2016-10-15] MEDS: Mometasone/Formoter 100/5 MDI INH SCH ×2 (09:40→20:00)
[2016-10-15] MEDS: Metoprolol Tartrate TAB* 25 MG PO SCH ×2 (10:16→20:12)
[2016-10-15] MEDS: predniSONE TAB* 20 MG PO SCH (10:16)
[2016-10-15] MEDS: Omeprazole CAP* 20 MG PO SCH ×2 (10:17→20:13)
[2016-10-15] MEDS: Lactobacillus Acidophilu (GG)* 1 CAP CAP PO SCH ×2 (10:17→20:12)
[2016-10-15] MEDS: Dronedarone TAB* 400 MG PO SCH ×2 (10:17→20:11)
[2016-10-15] MEDS: Primidone TAB(*) 50 MG PO SCH ×2 (10:17→20:13)
[2016-10-15] MEDS: Cetirizine* 10 MG TAB PO SCH (10:17)
[2016-10-15] MEDS: Aspirin EC Low Dose* 81 MG TAB.EC PO SCH (10:17)
[2016-10-15] MEDS: DOXYcycline CAP(*) 100 MG PO SCH ×2 (10:17→20:11)
[2016-10-15] MEDS: Montelukast Sodium TAB* 10 MG PO SCH (10:17)
--- NOTE | 2016-10-15 11:25 | PN ---
Subjective Date of Service: 10/15/16 Interval History: Mrs. Martin reports she would like to go home rather than go to subacute. She believes she can be successful with help of her and sister with home PT. She reports she continues to feel unwell with fatigue, productive cough and sob on exertion but overall feels better today. No fever or chills. Family History: Unchanged from Admission Social History: Unchanged from Admission Past Medical History: Unchanged from Admission Objective Active Medications: Hydrocodone Bitart/Acetaminophen (Nortab 7.5/325 Liq*) 15 ml PO Q4H PRN PRN Reason: FEVER/PAIN Last Admin: 10/14/16 08:51 Dose: 15 ml Albuterol (Ventolin 2.5 Mg/3 Ml Neb.Raiza*) 2.5 mg INH Q4H PRN PRN Reason: SOB/WHEEZING Last Admin: 10/09/16 13:30 Dose: 2.5 mg Albuterol (Ventolin Hfa Inhaler*) 1 puff INH Q4H PRN PRN Reason: SOB/WHEEZING Last Admin: 10/14/16 22:30 Dose: 2 puff Aspirin (Aspirin Ec Low Dose*) 81 mg PO DAILY [facility] Last Admin: 10/15/16 10:17 Dose: 81 mg Cetirizine HCl (Zyrtec*) 10 mg PO DAILY [facility] Last Admin: 10/15/16 10:17 Dose: 10 mg Doxycycline Hyclate (Vibramycin Cap(*)) 100 mg PO BID [facility] Stop: 10/22/16 21:01 Last Admin: 10/15/16 10:17 Dose: 100 mg Dronedarone (Multaq Tab*) 400 mg PO BID [facility] Last Admin: 10/15/16 10:17 Dose: 400 mg Heparin Sodium (Porcine) (Heparin Vial(*)) 5,000 units SUBCUT Q8HR [facility] Last Admin: 10/15/16 05:49 Dose: 5,000 units Lactobacillus Rhamnosus (Culturelle*) 1 cap PO BID [facility] Last Admin: 10/15/16 10:17 Dose: 1 cap Levothyroxine Sodium (Synthroid Tab*) 137 mcg PO 0600 [facility] Last Admin: 10/15/16 05:49 Dose: 137 mcg Metoprolol Tartrate (Lopressor Tab*) 12.5 mg PO BID [facility] Last Admin: 10/15/16 10:16 Dose: 12.5 mg Mometasone Furoate/Formoterol Fumar (Dulera 100/5 Mdi*) 2 puff INH BID [facility] Last Admin: 10/15/16 09:40 Dose: 2 puff Montelukast Sodium (Singulair Tab*) 10 mg PO DAILY [facility] Last Admin: 10/15/16 10:17 Dose: 10 mg Omeprazole (Prilosec Cap*) 40 mg PO BID [facility] Last Admin: 10/15/16 10:17 Dose: 40 mg Prednisone (Deltasone Tab*) 30 mg PO DAILY [facility] Last Admin: 10/15/16 10:16 Dose: 30 mg Primidone (Mysoline Tab(*)) 50 mg PO BID [facility] Last Admin: 10/15/16 10:17 Dose: 50 mg Rosuvastatin Calcium (Crestor (Nf)) 20 mg PO BEDTIME [facility] Last Admin: 10/14/16 21:05 Dose: 20 mg Venlafaxine HCl (Effexor Xr Cap*) 37.5 mg PO BEDTIME [facility] Last Admin: 10/14/16 21:05 Dose: 37.5 mg Vital Signs 10/14/16 10/14/16 10/14/16 15:30 16:23 19:22 Temperature 97.9 F 97.6 F 98.1 F Pulse Rate 62 63 66 Respiratory 16 14 16 Rate Blood Pressure 163/67 152/72 158/72 (mmHg) O2 Sat by Pulse 100 100 100 Oximetry 10/14/16 10/14/16 10/14/16 20:00 20:54 20:57 Temperature Pulse Rate 66 66 Respiratory 20 20 20 Rate Blood Pressure (mmHg) O2 Sat by Pulse 99 99 Oximetry 10/14/16 10/15/16 10/15/16 23:47 03:46 07:34 Temperature 98.2 F 97.7 F 97.6 F Pulse Rate 58 61 59 Respiratory 16 14 18 Rate Blood Pressure 160/69 152/79 159/67 (mmHg) O2 Sat by Pulse 100 100 100 Oximetry 10/15/16 10/15/16 07:47 09:53 Temperature Pulse Rate 64 Respiratory 18 16 Rate Blood Pressure (mmHg) O2 Sat by Pulse 97 Oximetry Oxygen Devices in Use Now: Nasal Cannula - 2L Appearance: obese 75 yo female A+O x3 in NAD - appears chroncially ill. Eyes: No Scleral Icterus, PERRLA Respiratory: Symmetrical Chest Expansion and Respiratory Effort, - - B/L exp wheezes Cardiovascular: NL Sounds; No Murmurs; No JVD, RRR, No Edema Abdominal: NL Sounds; No Tenderness; No Distention, - - obese Extremities: No Edema, No Clubbing, Cyanosis Skin: No Rash or Ulcers, No Nodules or Sclerosis Neurological: Alert and Oriented x 3, NL Sensation, NL Gait, NL Muscle Strength and Tone Lines/Tubes/Other Access: Clean, Dry and Intact Peripheral IV Nutrition: Taking PO's Result Diagrams: 10/15/16 05:47 10/15/16 05:47 Microbiology and Other Data: Microbiology 10/10/16 21:50 Legionella Urinary Antigen - Final Urine Negative Legionella Streptococcus pneumoniae Ag Screen - Final Negative S. pneumo Antigen 10/10/16 15:50 Influenza Types A,B Antigen (SLOAN) - Final Nasal Specimen received for Influenza A/B Molecular testing Diagnostic Imaging: CXR - mild PVC EKG - NSR CTA chest - no PE, small bilateral pleural effusions with bilateral infiltrates Assess/Plan/Problems-Billing Assessment: This is a 75 yo female with asthma, CKD, chronic pain, chronic lymphedema, RLS, essential tremor, hypothyroidism, CAD with preserved EF with recent admission for atrial flutter and NSTEMI who returned with complaints of SOB with evidence of PNA and asthma exacerbation with possible mild acute CHF. - Patient Problems (1) Pneumonia Comment: - Slow to recover. Pneumonia, asthma exacerbation and acute diastolic CHF - Bilateral infiltrates noted on CTA on admission. No PE. Influenza negative. - Afebrile, no leukocytosis - oxygenation improving, ambulated on 2 L with mainating O2 sat 97% - Urine negative for legionella and S. Pneumo, sputum culture - oral contamination - Flutter valve q4hr wa, encourage ambulation - D/C Ceftriaxone (total of 5 days); Continue Doxycyline 01/31 - Continue Prednisone - Dulera INH and prn duonebs - Pulm consult 10/14 - agrees with plan - acute diastolic CHF involvement recommended lasix - pt takes lasix at her baseline - will give 20 mg IV x 1 today. - Daily weights - check labs in am (2) CKD (chronic kidney disease) Comment: - Stage III - Creatinine improving, FENA from 10/11 showing Intrinsic most likely ATN; Plan to recheck FENA today; check Renal U/S negative. Plan to Hold Lisinopril at this time. Urine output wnls. (3) Asthma exacerbation Comment: - stable - Continue corticosteroids hold off on taper - Albuterol nebs - Cont Dulera (4) Electrolyte abnormality Comment: - Hyperkalemia - DC potassium supplement. Recheck K this evening (5) Gastric ulcer Comment: - Recent EGD 10/01 shows PUD - HH stable - Continue PPI 40 mg BID while on ASA therapy for CAD (6) CAD (coronary artery disease) Comment: - Asymptomatic - h/o recent NSTEMI prior recent admission on 09/25 with preserved EF; s/p cardiac cath 10/01 showing critical stenosis to the ostium of the RCA with 99% stenosis and signifcant stenosis to mid RC; recommendation was maximum medical therapy for her CAD with no stenting to her RCA because of significant collateral flow from the LAD and is at increased risk of bleeding from dual- antiplatelet therapy. - On ASA only due to recent GI bleed, continue BB - Repeat ECHO shows no significant changes from prior (7) Hypertension Comment: - Currently normotensive - Continue home medications (8) Hypothyroidism Comment: - TSH 4.14 - continue Levothyroxine. (9) Atrial fibrillation Comment: - S/p cardioversion 09/25/16 - in sinus on Multaq and low dose metoprolol. - Recent hospitalization, Dr. Hilliard (cardiology) - recommended holding off on anticoagulation at this point due to risk of bleeding in the setting of peptic ulcer disease and recent GI bleed, but would anticoagulate if she flips back into A flutter. (10) Lymphedema Comment: - chronic (11) DVT prophylaxis Comment: - SQ heparin. (12) Full code status Status and Disposition: Inpatient with pneumonia, complicated by asthma exacerbation and acute diastolic chf, slow to recover. PT recommends subacute, patient was agreeable with bilingual patient support caseworker for subacute and packet was sent out. Now patient states she wants to go home. Plan for family meeting tomorrow.
--- NOTE | 2016-10-15 17:01 | PN ---
Progress Note - Progress Note Note: Pulm consult f/u note 10/15/16. Pt seen and examined at bedside. No new complaints. Active Medications Generic Name Dose Route Start Last Admin Trade Name Freq PRN Reason Stop Dose Admin Hydrocodone Bitart/Acetaminophen 15 ml 10/09/16 08:21 10/14/16 08:51 Nortab 7.5/325 Liq* PO 15 ml Q4H PRN Administration FEVER/PAIN Albuterol 2.5 mg 10/09/16 12:52 10/09/16 13:30 Ventolin 2.5 Mg/3 Ml Neb.Raiza* INH 2.5 mg Q4H PRN Administration SOB/WHEEZING Albuterol 1 puff 10/14/16 19:34 10/14/16 22:30 Ventolin Hfa Inhaler* INH 2 puff Q4H PRN Administration SOB/WHEEZING Aspirin 81 mg 10/09/16 09:00 10/15/16 10:17 Aspirin Ec Low Dose* PO 81 mg DAILY JASON Administration Cetirizine HCl 10 mg 10/09/16 12:55 10/15/16 10:17 Zyrtec* PO 10 mg DAILY JASON Administration Doxycycline Hyclate 100 mg 10/09/16 09:00 10/15/16 10:17 Vibramycin Cap(*) PO 10/22/16 21:01 100 mg BID JASON Administration Dronedarone 400 mg 10/09/16 09:00 10/15/16 10:17 Multaq Tab* PO 400 mg BID JASON Administration Heparin Sodium (Porcine) 5,000 units 10/09/16 06:00 10/15/16 13:42 Heparin Vial(*) SUBCUT 5,000 units Q8HR AJSON Administration Lactobacillus Rhamnosus 1 cap 10/14/16 21:00 10/15/16 10:17 Culturelle* PO 1 cap BID JASON Administration Levothyroxine Sodium 137 mcg 10/09/16 06:00 10/15/16 05:49 Synthroid Tab* PO 137 mcg 0600 JASON Administration Metoprolol Tartrate 12.5 mg 10/09/16 02:00 10/15/16 10:16 Lopressor Tab* PO 12.5 mg BID JASON Administration Mometasone Furoate/Formoterol Fumar 2 puff 10/09/16 13:00 10/15/16 09:40 Dulera 100/5 Mdi* INH 2 puff BID JASON Administration Montelukast Sodium 10 mg 10/09/16 09:00 10/15/16 10:17 Singulair Tab* PO 10 mg DAILY [facility] Administration Omeprazole 40 mg 10/10/16 21:00 10/15/16 10:17 Prilosec Cap* PO 40 mg BID JASON Administration Prednisone 30 mg 10/13/16 09:00 10/15/16 10:16 Deltasone Tab* PO 30 mg DAILY [facility]AS[facility] Administration Primidone 50 mg 10/09/16 09:00 10/15/16 10:17 Mysoline Tab(*) PO 50 mg BID JASON Administration Rosuvastatin Calcium 20 mg 10/09/16 02:00 10/14/16 21:05 Crestor (Nf) PO 20 mg BEDTIME JASON Administration Venlafaxine HCl 37.5 mg 10/09/16 21:00 10/14/16 21:05 Effexor Xr Cap* PO 37.5 mg BEDTIME JASON Administration Vital Signs Temp Pulse Resp BP Pulse Ox 97.7 F 64 18 149/70 98 10/15/16 15:33 10/15/16 15:33 10/15/16 15:33 10/15/16 15:33 10/15/16 15:33 O/E; GEn: Pt sleeping with noticeble pauses in breathing HEENT: JAIR, No JVD Resp: wheeze + b/l CVS: S1, S2+, regular Abd: Obses, BS+ Skin: No rash or bruise Neuro : No focal defecits Ext: Trace edema + Laboratory Results - last 24 hr 10/14/16 10/15/16 10/15/16 06:15 05:47 05:47 WBC 13.3 H RBC 3.26 L Hgb 9.9 L Hct 30 L MCV 93 MCH 31 MCHC 33 RDW 14 Plt Count 246 MPV 8 Neut % (Auto) 68.7 Lymph % (Auto) 22.8 L [place] % (Auto) 7.6 Eos % (Auto) 0.7 Baso % (Auto) 0.2 Absolute Neuts (auto) 9.1 H Absolute Lymphs (auto) 3.0 Absolute Monos (auto) 1.0 H Absolute Eos (auto) 0.1 Absolute Basos (auto) 0 Absolute Nucleated RBC 0 Nucleated RBC % 0 Sodium 136 Potassium 5.4 H Chloride 104 Carbon Dioxide 27 Anion Gap 5 BUN 76 H Creatinine 1.61 H Est GFR ( Amer) 40.0 Est GFR (Non-Af Amer) 31.1 BUN/Creatinine Ratio 47.2 H Glucose 99 Calcium 9.1 Ur Random Creatinine 76.89 Ur Random Sodium 51 I/R: 75 y o morbidly obese female with h/o asthma, mild VALENTIN, multiple other comorbidities on polypharmacy a/w worsening SOB, being treated for CAP, asthma exacerbation and acute diastolic CHF Pt continues to wheeze Will not taper steroids yet c/w nebs, inhalers Is receiving LAsix Monitor I/O Sleep apnea not being treated currently C/w O2 at night
[2016-10-15 18:28] LABS: BUN/Creatinine Ratio 50.3 (8-20); Calcium 9.5 mg/dL (8.6-10.3); EGFR African American 42.4 (>60); Potassium 5.4 mmol/L (3.5-5.0)
[2016-10-15] MEDS: Albuterol HFA INHALER* 8 gm MDI INH PRN (20:00)
[2016-10-15] MEDS: CMCS: Rosuvastatin (NF) 20 MG TAB PO SCH (20:14)
[2016-10-15] MEDS: Venlafaxine EXT RELEASE CAP* 37.5 MG PO SCH (20:54)
[2016-10-15] MEDS: HYDROcodone/ACET. 7.5/325 LIQ* 15 ML UDC PO PRN (20:56)
[2016-10-15] MEDS ORDERED: Acetaminophen TAB* 325 MG PO PRN (21:39)
[2016-10-16] MEDS: HYDROcodone/ACET. 7.5/325 LIQ* 15 ML UDC PO PRN ×2 (00:56→07:59)
[2016-10-16 05:26] LABS: Hematocrit 30 % (35-47); Mean Corpuscular HGB Conc 33 g/dl (31-36); Mean Corpuscular Hemoglobin 31 pg (27-31); Mean Corpuscular Volume 93 fL (80-97); Mean Platelet Volume 8 um3 (7.4-10.4); Red Blood Count 3.28 10^6/ul (4.0-5.4); Red Cell Distribution Width 14 % (10.5-15); White Blood Count 12.3 10^3/ul (3.5-10.8)
[2016-10-16 05:34] LABS: Add Diff/Slide Review? Slide Review Added; Comments Flag Yes
[2016-10-16] MEDS: Heparin VIAL(*) 5000 UNITS/ML VIAL (FIVE THOUSAND) SUBCUT SCH ×2 (05:49→16:55)
[2016-10-16] MEDS: Levothyroxine TAB* 137 MCG TAB PO SCH (05:49)
[2016-10-16 05:55] LABS: Calcium 9.3 mg/dL (8.6-10.3); EGFR African American 41.2 (>60); Potassium 5.4 mmol/L (3.5-5.0)
[2016-10-16] MEDS ORDERED: Sodium Polystyrene ORAL.SOL* 15 GM/60 ML BTL PO ONE (06:54)
[2016-10-16] MEDS: Mometasone/Formoter 100/5 MDI INH SCH (07:45)
[2016-10-16] MEDS: Metoprolol Tartrate TAB* 25 MG PO SCH (10:23)
[2016-10-16] MEDS: Lactobacillus Acidophilu (GG)* 1 CAP CAP PO SCH (10:23)
[2016-10-16] MEDS: predniSONE TAB* 20 MG PO SCH (10:24)
[2016-10-16] MEDS: Aspirin EC Low Dose* 81 MG TAB.EC PO SCH (10:24)
[2016-10-16] MEDS: Cetirizine* 10 MG TAB PO SCH (10:24)
[2016-10-16] MEDS: Omeprazole CAP* 20 MG PO SCH (10:24)
[2016-10-16] MEDS: Dronedarone TAB* 400 MG PO SCH (10:24)
[2016-10-16] MEDS: Primidone TAB(*) 50 MG PO SCH (10:25)
[2016-10-16] MEDS: Montelukast Sodium TAB* 10 MG PO SCH (10:25)
[2016-10-16] MEDS: DOXYcycline CAP(*) 100 MG PO SCH (10:25)
[2016-10-16] MEDS: Albuterol HFA INHALER* 8 gm MDI INH PRN (10:49)
--- NOTE | 2016-10-16 11:53 | DCNOTE ---
Subjective Date of Service: 10/16/16 Interval History: Patient reports she feels much better and wants to go home today. She and I met with her and he agrees to her going home and states he is very active in taking care of her. Pt reports she has more energy today and feels less SOB with exertion. Her cough is improving. Denies other complaints. Family History: Unchanged from Admission Social History: Unchanged from Admission Past Medical History: Unchanged from Admission Objective Active Medications: Acetaminophen (Tylenol Tab*) 650 mg PO Q6H PRN PRN Reason: FEVER/PAIN Last Admin: 10/15/16 22:10 Dose: 650 mg Hydrocodone Bitart/Acetaminophen (Nortab 7.5/325 Liq*) 15 ml PO Q4H PRN PRN Reason: FEVER/PAIN Last Admin: 10/16/16 07:59 Dose: 15 ml Albuterol (Ventolin 2.5 Mg/3 Ml Neb.Raiza*) 2.5 mg INH Q4H PRN PRN Reason: SOB/WHEEZING Last Admin: 10/09/16 13:30 Dose: 2.5 mg Albuterol (Ventolin Hfa Inhaler*) 1 puff INH Q4H PRN PRN Reason: SOB/WHEEZING Last Admin: 10/16/16 10:49 Dose: 1 puff Aspirin (Aspirin Ec Low Dose*) 81 mg PO DAILY [facility] Last Admin: 10/16/16 10:24 Dose: 81 mg Cetirizine HCl (Zyrtec*) 10 mg PO DAILY [facility] Last Admin: 10/16/16 10:24 Dose: 10 mg Doxycycline Hyclate (Vibramycin Cap(*)) 100 mg PO BID [facility] Stop: 10/22/16 21:01 Last Admin: 10/16/16 10:25 Dose: 100 mg Dronedarone (Multaq Tab*) 400 mg PO BID [facility] Last Admin: 10/16/16 10:24 Dose: 400 mg Heparin Sodium (Porcine) (Heparin Vial(*)) 5,000 units SUBCUT Q8HR [facility] Last Admin: 10/16/16 05:49 Dose: 5,000 units Lactobacillus Rhamnosus (Culturelle*) 1 cap PO BID [facility] Last Admin: 10/16/16 10:23 Dose: 1 cap Levothyroxine Sodium (Synthroid Tab*) 137 mcg PO 0600 [facility] Last Admin: 10/16/16 05:49 Dose: 137 mcg Metoprolol Tartrate (Lopressor Tab*) 12.5 mg PO BID [facility] Last Admin: 10/16/16 10:23 Dose: 12.5 mg Mometasone Furoate/Formoterol Fumar (Dulera 100/5 Mdi*) 2 puff INH BID [facility] Last Admin: 10/16/16 07:45 Dose: 2 puff Montelukast Sodium (Singulair Tab*) 10 mg PO DAILY [facility] Last Admin: 10/16/16 10:25 Dose: 10 mg Omeprazole (Prilosec Cap*) 40 mg PO BID [facility] Last Admin: 10/16/16 10:24 Dose: 40 mg Prednisone (Deltasone Tab*) 30 mg PO DAILY [facility] Last Admin: 10/16/16 10:24 Dose: 30 mg Primidone (Mysoline Tab(*)) 50 mg PO BID [facility] Last Admin: 10/16/16 10:25 Dose: 50 mg Rosuvastatin Calcium (Crestor (Nf)) 20 mg PO BEDTIME [facility] Last Admin: 10/15/16 20:14 Dose: 20 mg Venlafaxine HCl (Effexor Xr Cap*) 37.5 mg PO BEDTIME [facility] Last Admin: 10/15/16 20:54 Dose: 37.5 mg Vital Signs 10/15/16 10/15/16 10/15/16 15:33 19:20 20:00 Temperature 97.7 F 97.7 F Pulse Rate 64 70 Respiratory 18 22 18 Rate Blood Pressure 149/70 152/69 (mmHg) O2 Sat by Pulse 98 98 Oximetry 10/15/16 10/15/16 10/15/16 20:01 20:56 22:56 Temperature Pulse Rate 68 Respiratory 18 18 Rate Blood Pressure (mmHg) O2 Sat by Pulse 98 Oximetry 10/15/16 10/16/16 10/16/16 23:36 00:56 02:56 Temperature 98.2 F Pulse Rate 63 Respiratory 16 18 18 Rate Blood Pressure 150/73 (mmHg) O2 Sat by Pulse 99 Oximetry 10/16/16 10/16/16 10/16/16 03:39 07:31 07:47 Temperature 97.6 F 97.3 F Pulse Rate 56 56 55 Respiratory 16 14 16 Rate Blood Pressure 135/70 150/71 (mmHg) O2 Sat by Pulse 100 100 98 Oximetry 10/16/16 10/16/16 10/16/16 07:59 08:00 09:36 Temperature Pulse Rate 54 Respiratory 16 16 19 Rate Blood Pressure 148/72 (mmHg) O2 Sat by Pulse Oximetry 10/16/16 09:59 Temperature Pulse Rate Respiratory 18 Rate Blood Pressure (mmHg) O2 Sat by Pulse Oximetry Oxygen Devices in Use Now: Nasal Cannula - 2L Appearance: obese 75 yo female sitting up on the side of her bed in NAD A+O x3 Eyes: No Scleral Icterus, PERRLA Ears/Nose/Mouth/Throat: NL Teeth, Lips, Gums, Mucous Membranes Moist Neck: NL Appearance and Movements; NL JVP Respiratory: Symmetrical Chest Expansion and Respiratory Effort, - - mild right lower crackles otherwise good aeration throughout Cardiovascular: NL Sounds; No Murmurs; No JVD, RRR, No Edema Abdominal: NL Sounds; No Tenderness; No Distention Extremities: No Edema, No Clubbing, Cyanosis Skin: No Rash or Ulcers, No Nodules or Sclerosis Neurological: Alert and Oriented x 3, NL Sensation, NL Gait, NL Muscle Strength and Tone Lines/Tubes/Other Access: Clean, Dry and Intact Peripheral IV Nutrition: Taking PO's Result Diagrams: 10/16/16 04:51 10/16/16 04:51 Microbiology and Other Data: Microbiology 10/10/16 21:50 Legionella Urinary Antigen - Final Urine Negative Legionella Streptococcus pneumoniae Ag Screen - Final Negative S. pneumo Antigen 10/10/16 15:50 Influenza Types A,B Antigen (SLOAN) - Final Nasal Specimen received for Influenza A/B Molecular testing Diagnostic Imaging: CXR - mild PVC EKG - NSR CTA chest - no PE, small bilateral pleural effusions with bilateral infiltrates Assess/Plan/Problems-Billing Assessment: This is a 75 yo female with asthma, CKD, chronic pain, chronic lymphedema, RLS, essential tremor, hypothyroidism, CAD with preserved EF with recent admission for atrial flutter and NSTEMI who returned with complaints of SOB with evidence of PNA and asthma exacerbation with possible mild acute CHF. - Patient Problems (1) Pneumonia Comment: - Pneumonia, asthma exacerbation and acute diastolic CHF - slow to recover. Pt is stable for DC to home today. - Bilateral infiltrates noted on CTA on admission. No PE. Influenza negative. - Afebrile, no leukocytosis - oxygenation improving but will require home oxygen for ambulation - Urine negative for legionella and S. Pneumo, sputum culture - oral contamination - Flutter valve q4hr wa, encourage ambulation - D/C Ceftriaxone (total of 5 days); Continue Doxycyline 03/03 - Continue Prednisone taper - Pulm consult 10/14 - agrees with plan - will follow up after discharge - will continue 20 mg po dialy (down from 40) - Daily weights - check labs early next week (2) CKD (chronic kidney disease) Comment: - Stage III - Creatinine improving, FENA from 10/11 showing Intrinsic most likely ATN; check Renal U/S negative. - Hold lisinopril - recheck BMP next week. (3) Asthma exacerbation Comment: - stable - Continue corticosteroids hold off on taper - Albuterol nebs - Cont Dulera (4) Electrolyte abnormality Comment: - mildly Hyperkalemia - DC potassium supplement. Gave 1 dose kayex (5) Gastric ulcer Comment: - Recent EGD 10/01 shows PUD - HH stable - Continue PPI 40 mg BID while on ASA therapy for CAD (6) CAD (coronary artery disease) Comment: - Asymptomatic - h/o recent NSTEMI prior recent admission on 09/25 with preserved EF; s/p cardiac cath 10/01 showing critical stenosis to the ostium of the RCA with 99% stenosis and signifcant stenosis to mid RC; recommendation was maximum medical therapy for her CAD with no stenting to her RCA because of significant collateral flow from the LAD and is at increased risk of bleeding from dual- antiplatelet therapy. - On ASA only due to recent GI bleed, continue BB - Repeat ECHO shows no significant changes from prior (7) Hypertension Comment: - Currently normotensive - Continue home medications - hold lloyd due to lizet (8) Hypothyroidism Comment: - TSH 4.14 - continue Levothyroxine. (9) Atrial fibrillation Comment: - S/p cardioversion 09/25/16 - in sinus on Multaq and low dose metoprolol. - Recent hospitalization, Dr. Hilliard (cardiology) - recommended holding off on anticoagulation at this point due to risk of bleeding in the setting of peptic ulcer disease and recent GI bleed, but would anticoagulate if she flips back into A flutter. (10) Lymphedema Comment: - appears controlled, very minimal to no edema (11) DVT prophylaxis Comment: - SQ heparin. (12) Full code status Status and Disposition: Inpatient with pneumonia, complicated by asthma exacerbation and acute diastolic chf, slow to recover. PT evaluated pt to be safe independently. Stable for DC to home
[2016-10-16 12:45] VITALS: BP 145/60
--- NOTE | 2016-10-17 01:19 | DS ---
DISCHARGE SUMMARY: DATE OF ADMISSION: 10/09/16 DATE OF DISCHARGE: 10/16/16 PROVIDER: Eleanor Trent NP ATTENDING PHYSICIAN: Daniela Lopez MD* (report dictated by Eleanor Trent NP) PRIMARY CARE PROVIDER: Manas Villeda MD PAINTINGS CONSERVATOR: Sharon Peter MD SALES REPRESENTATIVE JEWELRY: Dr. Jimmie Price in [place]. PRIMARY DIAGNOSES: 1. Community-acquired pneumonia. 2. Asthma exacerbation. 3. Congestive heart failure. 4. Tgijn-my-sajmaut renal failure. 5. Electrolyte abnormalities. SECONDARY DIAGNOSES: 1. History of constipation. 2. Restless leg syndrome. 3. Essential tremor. 4. Chronic pain. 5. Seasonal allergies. 6. Gastroesophageal reflux disease. 7. Hypothyroidism. 8. Chronic lymphedema. 9. History of angina. 10. Coronary artery disease with admission from 09/25/16 to 10/03/16 with non- ST elevation myocardial infarction, undergoing a cardiac catheterization during that hospitalization, which showed "critical stenosis to the ostium of the right coronary artery with 99% stenosis with moderate calcification. There was also significant stenosis of the mid RCA. The distal right coronary was fed by competitive flow from the collateral arteries from the left anterior descending artery. Noncritical disease of the left anterior descending artery and left circumflex." Per recommendation from Cardiology was maximum medical therapy. Due to recent GI bleed, she was continued on aspirin on at that time. 11. Recent GI bleed secondary to peptic ulcer disease in which she underwent upper endoscopy on 09/30/16, which showed a small gastric ulcer and gastritis. 12. Atrial fibrillation. HISTORY OF PRESENT ILLNESS AND HOSPITAL COURSE: Please see history and physical by Dr. Mcqueen for full admission details; but in summary, this is a 75- year-old female with complex past medical history as stated above who presented on 10/09/16 with complaint of worsening shortness of breath. The patient reports that initially she was doing well after her recent discharge; however, in that time period, she was taken off her diuretics and it is unclear as to why , but at that time, her stated that she was not feeling well and had some diarrhea and thinks that maybe the reason. The patient did not notice any increased weight gain or edema at that time. She did report chest pain, but per the patient this has been a chronic problem. She also had reported she was recently diagnosed with bronchitis. She was admitted to the hospitalist service with mild congestive heart failure and was given IV Lasix on admission. On the evening of admission, the patient underwent a chest/thorax CTA, which showed no pulmonary embolism, but did show small bilateral pleural effusions and bilateral infiltrates. The patient was treated for community- acquired pneumonia and finished a course of azithromycin, had multiple doses of ceftriaxone, and switched to doxycycline. The patient was also given IV steroids, switched over to p.o. prednisone taper. It is suspected that the patient had bilateral pneumonia with mild CHF and asthma exacerbation. At her baseline, she wears 2 L nasal cannula only at bedtime, but she has required 2 L to 4 L throughout her hospitalization, currently being on 2 L. The patient has been very, very slow to improve and had slow progression. The patient has been followed by Physical Therapy and the patient has had much improvement over hospital course. Yesterday, she was evaluated by Physical Therapy and underwent being able to ambulate on the stairs independently as well independently with her walker. The patient was offered subacute rehab; however , the patient reports that she feels that she could go home. I met with the patient and her today and the patient and her agree that the patient is safe for discharge to home. The patient was seen in consultation by control systems specialist, Dr. Peter, who follows the patient as an outpatient. She agreed with the plan of care and recommends a slow prednisone taper and finishing a 2-week course of doxycycline. The patient will be continued on Dulera inhaler and albuterol p.r.n. and follow up closely with Dr. Peter as an outpatient. The patient did meet for requiring oxygen with ambulation with O2 sats dropping to 87% off room air with ambulation. This has been setup for her through [facility]. The patient was negative for influenza. Legionella and Streptococcus pneumoniae urinary antigens were both negative. She underwent a transthoracic echocardiogram due to her recent history of NSTEMI , which showed no significant change from prior DANIEL done on 09/25/16. It shows a preserved ejection fraction of 50% to 55% with global left ventricular wall motion and contractility within normal limits. The patient has had [id number]-[id number] kidney injury throughout her hospitalization. On admission, she did receive 80 mg IV Lasix on admission and her creatinine over the next 24 to 48 hours went up from 1.23 to 1.84 peaking at 1.93. It is possible this could be ATN from the Lasix and it was noted that she had some lower blood pressures. Today, her creatinine is 1.57. She did undergo a renal ultrasound, which showed "mild increased echogenicity to suggest medical renal disease, no hydronephrosis." The patient has been urinating appropriately without difficulty. Her creatinine has been improving and mostly throughout her hospitalization, she has had intermittent small doses of Lasix, but mostly this has been held throughout her hospitalization. The patient has been restarted on Lasix 20 mg p.o. daily as of yesterday and her renal function did improve today. I have held her lisinopril due to the acute- on-chronic kidney function. This should be reevaluated as an outpatient. The patient's blood pressures have remained normotensive off the lisinopril. The patient was noted to be hyperkalemic yesterday, 10/15/16 with a potassium of 5.4. I believe this was due to that she was continued on her potassium replacement and her Lasix was being held. On recheck last evening, it was 5.4 and the morning was 5.4. She did receive Lasix yesterday and today and was given a dose of Kayexalate. Plan for the patient to have labs done on Friday with a BMP with the results to the primary care provider. The patient was instructed at this time to hold her potassium supplementation. She will be continued on a lower dose of Lasix of 20 mg p.o. daily down from 40 mg p.o. daily and she was instructed to hold her torsemide. The patient reports that she never takes these 2 together and will use one or the other depending on what is working best. The patient believes that she is on the Lasix for chronic lower extremity lymphedema, which is not noted throughout her hospitalization; however, she does appear to have some mild congestive heart failure and will continue the lower dose Lasix at this time. DISCHARGE MEDICATIONS: 1. Omeprazole 40 mg p.o. b.i.d. (to be continued while on aspirin therapy due to recent GI bleeding and recent NSTEMI). 2. Effexor 37.5 mg p.o. at bedtime. 3. Primidone 50 mg p.o. b.i.d. 4. Synthroid 137 mcg p.o. daily at 6 a.m. 5. Singulair 10 mg p.o. daily. 6. [place] 10/325 mg 2 tabs p.o. q.6 hours p.r.n. 7. Aspirin 81 mg p.o. daily. 8. Multaq 400 mg p.o. b.i.d. 9. Metoprolol tartrate 12.5 mg p.o. b.i.d. 10. Crestor 20 mg p.o. daily. 11. Probiotic Culturelle 1 cap p.o. b.i.d. 12. Albuterol HFA inhaler 2 puffs INH q.4 hours p.r.n. 13. Doxycycline 100 mg p.o. b.i.d. x5 days to finish a 14-day course. 14. Dulera 200/5 mcg MDI 2 puffs INH b.i.d. 15. Prednisone 30 mg p.o. daily x4 days, then decrease by 10 mg every 4 days. 16. Levocetirizine 5 mg p.o. daily. DISCHARGE PLAN: 1. The patient to be discharged home. 2. Follow up with Dr. Villeda within [address] Villeda's office was contacted and will contact the patient for a followup appointment. 3. The patient is to call Dr. Peter for a followup within 1 to 2 weeks. 4. The patient was instructed to call her detonator maker in [place] for close followup. 5. Daily weights. The patient was instructed to call her PCP with increase in weight of 2 to 3 pounds. 6. BMP on 10/21/[address] Villeda. 7. The patient was instructed to return to the emergency room with any worsening or concerning symptoms. TIME SPENT: Approximately 35 minutes were spent on this discharge. ELEANOR TRENT NP CC: Dr. Villeda; Dr. Peter; Dr. Jimmie Price * [id number]/[facility] #: [id number] [facility]
== END 2016-10-16 16:00 | disposition home health service (06) | DRG 291 ==
LOC: ED 16:08 → MEDTELE 10-09 02:08
PROVIDERS: ADMIT Internal Medicine; ATTEND Internal Medicine
DX: 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 kidney disease with heart failure and stage 1 through stage 4 chronic kidney disease, or unspecified chronic kidney disease (principal); J18.9 Pneumonia, unspecified organism; N17.0 Acute kidney failure with tubular necrosis; E87.8 Other disorders of electrolyte and fluid balance, not elsewhere classified; J45.901 Unspecified asthma with (acute) exacerbation; N18.3 Chronic kidney disease, stage 3 (moderate); E87.5 Hyperkalemia; Z99.81 Dependence on supplemental oxygen; K25.9 Gastric ulcer, unspecified as acute or chronic, without hemorrhage or perforation; I50.33 Acute on chronic diastolic (congestive) heart failure; Z68.42 Body mass index [BMI] 45.0-49.9, adult; N17.9 Acute kidney failure, unspecified; I48.91 Unspecified atrial fibrillation; G25.0 Essential tremor; G25.81 Restless legs syndrome; G89.29 Other chronic pain; K21.9 Gastro-esophageal reflux disease without esophagitis; E03.9 Hypothyroidism, unspecified; I89.0 Lymphedema, not elsewhere classified; I25.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 native coronary artery without angina pectoris; K59.00 Constipation, unspecified; R07.9 Chest pain, unspecified; E78.5 Hyperlipidemia, unspecified; M19.90 Unspecified osteoarthritis, unspecified site; M79.7 Fibromyalgia; H26.9 Unspecified cataract; Z96.643 Presence of artificial hip joint, bilateral; F32.9 Major depressive disorder, single episode, unspecified; D64.9 Anemia, unspecified; E66.01 Morbid (severe) obesity due to excess calories; G47.33 Obstructive sleep apnea (adult) (pediatric); T50.1X5A Adverse effect of loop [high-ceiling] diuretics, initial encounter; Z87.11 Personal history of peptic ulcer disease; I25.2 Old myocardial infarction; Z88.8 Allergy status to other drugs, medicaments and biological substances; Z91.041 Radiographic dye allergy status; Z97.4 Presence of external hearing-aid; Z82.49 Family history of ischemic heart disease and other diseases of the circulatory system; Z91.14 Patient's other noncompliance with medication regimen; Z79.82 Long term (current) use of aspirin
CPT/HCPCS: 36415; 71020; 71275; 76775; 80048; 80053; 81003; 81015; 82550; 82553; 82570; 83605; 83690; 83735; 83880; 84300; 84443; 84484; 85025; 85379; 85610; 85730; 86140; 87070; 87205; 87502; 87899; 93005; 93306; 94640; 94760; A9270-GY; J0696; J1170; J1200; J1644; J1940; J2930; J3475; J7512; Q9967

== ENCOUNTER 2017-06-01 13:41 | Emergency (ER) | payer MEDICARE ==
[2017-06-01] MEDS ORDERED: HYDROcodone/ACETAMIN 5-325 MG* 1 TAB PO ONE (14:57)
--- NOTE | 2017-06-01 15:27 | RAD ---
INDICATION: Neck pain. Fall. COMPARISON: None TECHNIQUE: Noncontrast axial source images was performed from the skull base to the thoracic inlet. Coronal and and sagittal reformatted images were generated. FINDINGS: Vertebrae: There is no fracture or acute focal bony lesion. There are advanced osteoarthritic changes. There is advanced disc space narrowing from C4 through C7 with endplate sclerosis and marginal osteophytes measured which is most prominent about C6-C7. There is posterior spondylitic ridge formation at C3 C4-C7. There is multilevel foraminal encroachment due to uncinate process spurring. This most prominent between C4 and C6. Alignment: The craniocervical junction appears normal. The cervical vertebrae are normally aligned. Central Canal: There is a mild decrease in AP diameter canal at multiple levels due to posterior spondylitic ridge formation and there is foraminal narrowing as noted above secondary to uncinate process spurring. MR imaging is a more sensitive method to evaluate the canal and foramina. Intervertebral disc spaces: Multilevel degenerative narrowing is noted above. Brain: The visualized brain appears unremarkable. Soft tissues: The visualized soft tissue elements of the neck are unremarkable. The prevertebral soft tissues appear normal. The lung apices are clear. IMPRESSION: MODERATE TO ADVANCED OSTEOARTHRITIC CHANGES.
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
--- NOTE | 2017-06-01 16:31 | RAD ---
INDICATION: Right humerus pain COMPARISON: None TECHNIQUE: AP and lateral views were obtained. The examination is mildly limited due to positioning. FINDINGS: There is no acute humeral fracture. The distalmost portion of the humerus is not included in the [id number] on the AP view. There are vascular calcifications. IMPRESSION: MILDLY LIMITED STUDY. NO ACUTE BONY FINDINGS.
--- NOTE | 2017-06-01 16:31 | RAD ---
INDICATION: Shoulder pain COMPARISON: None TECHNIQUE: Routine frontal, Y and axial views were obtained. FINDINGS: There is no acute bony change. The a.c. and glenohumeral joints are intact although there may be mild laxity as there is inferior subluxation of the humeral head. There are findings of calcific tendinitis. IMPRESSION: NO ACUTE BONY CHANGE. CALCIFIC TENDINITIS
--- NOTE | 2017-06-01 16:32 | RAD ---
INDICATION: Right rib injury COMPARISON: Chest x-ray October 08, 2016 TECHNIQUE: Multiple views of the ribs were obtained. FINDINGS: Bones: There is no evidence of acute rib fracture. LUNGS: There are no acute infiltrates. There are chronic pleural and parenchymal changes in the left lung base. The right lung is clear. Pleural spaces: There is no evidence of hemothorax. Other: There are Castro rods IMPRESSION: NO ACUTE RIB FRACTURE.
[2017-06-01 16:50] VITALS: BP 159/70
== END 2017-06-01 16:50 | disposition home or self-care (01) ==
LOC: ED 13:41
DX: S40.021A Contusion of right upper arm, initial encounter (principal); M79.601 Pain in right arm; W19.XXXA Unspecified fall, initial encounter; Y93.9 Activity, unspecified; Y92.9 Unspecified place or not applicable
CPT/HCPCS: 72125; 99282

== ENCOUNTER 2018-01-21 00:28 | Inpatient (IN) | payer MEDICARE ==
[2018-01-21] MEDS ORDERED: Aspirin 81 mg CHEW TAB* 81 MG TAB.CHEW PO ONE (01:04)
[2018-01-21] MEDS ORDERED: Morphine VIAL* 4 MG/ML VIAL (1 ml vial) IV ONE (01:43)
[2018-01-21] MEDS ORDERED: Ondansetron INJ* 2 MG/ML VIAL IV ONE (01:43)
[2018-01-21 01:50] LABS: ABS Basophils 0 10^3/ul (0-0.2); ABS Eosinophils 0 10^3/ul (0-0.6); ABS Lymphocytes 1.3 10^3/ul (1.0-4.8); ABS Monocytes 0.6 10^3/ul (0-0.8); ABS Neutrophils 4.5 10^3/ul (1.5-7.7); ABS Nucleated RBC 0 10^3/ul; Eosinophil % 0.2 % (0-6); Hematocrit 29 % (35-47); Hemoglobin 10.1 g/dl (12.0-16.0); Lymphocyte % 20.4 % (25-47); Mean Corpuscular HGB Conc 34 g/dl (31-36); Mean Corpuscular Hemoglobin 33 pg (27-31); Mean Corpuscular Volume 96 fL (80-97); Mean Platelet Volume 7.3 um3 (7.4-10.4); Nucleated Red Blood Cells % 0.1; Platelet Count 223 10^3/ul (150-450); Red Blood Count 3.07 10^6/ul (4.00-5.40); Red Cell Distribution Width 13 % (10.5-15); White Blood Count 6.4 10^3/ul (3.5-10.8)
[2018-01-21 01:54] LABS: INR 0.92 (0.77-1.02)
[2018-01-21 02:06] LABS: EGFR Non-African American 36.1 (>60)
[2018-01-21] MEDS: nitroGLYCERIN DRIP* 25,000 MCG/250 ML BTL IV ONE ×2 (02:12→18:16)
--- NOTE | 2018-01-21 03:45 | ED ---
Reyes Heaton Tiffany, scribed for Kylie Rocha MD on 01/21/18 at 0059 . HPI Chest Pain - HPI Summary HPI Summary: 77 year old F BIBA to [facility] complains of intermittent chest pain since 17:00 yesterday. The patient rates the pain 7/10 in severity. Symptoms aggravated by nothing. Symptoms alleviated by nothing. Has treated pain with Nitro without relief. Reports occasional shortness of breath, uses O2 at home. Patient denies vomiting. Additionally complains of headache that radiates to mouth, bilateral arms, and chest. - History of Current Complaint Chief Complaint: EDChestPainROMI Time Seen by Provider: 01/21/18 00:47 Hx Obtained From: Patient Onset/Duration: Started Hours Ago - 8, Still Present Timing: Intermittent Current Severity: Severe Pain Intensity: 10 Pain Scale Used: 0-10 Numeric Aggravating Factor(s): Nothing Alleviating Factor(s): Nothing Associated Signs and Symptoms: Positive: Other: - occasional shortness of breath and headache that radiates to mouth, bilateral arms, and chest. Negative : Vomiting - Additional Pertinent History Primary Care Physician: [id number] - Allergy/Home Medications Allergies/Adverse Reactions: Allergies Allergy/AdvReac Type Severity Reaction Status Date / Time MS Tiagabine [From Gabitril] Allergy Mild Rash Verified 06/01/17 13:52 MS Amitriptyline Allergy Unknown Unknown Verified 06/01/17 13:52 Reaction Details MS Atorvastatin Allergy Unknown Unknown Verified 06/01/17 13:52 [From Lipitor] Reaction Details MS Iodinated Contrast Media Allergy Unknown Unknown Verified 06/01/17 13:52 Reaction Details MS Misoprostol [From Cytotec] Allergy Unknown Unknown Verified 06/01/17 13:52 Reaction Details MS Theophylline Allergy Unknown Unknown Verified 06/01/17 13:52 [From Uniphyl] Reaction Details MS Tizanidine [From Zanaflex] Allergy Unknown Unknown Verified 06/01/17 13:52 Reaction Details Ygaexhq-Gsu-Gde Reductase Allergy Unknown Vomiting Verified 01/20/18 17:51 Inhibitor imipramine Allergy Unknown Verified 01/20/18 17:48 Reaction Details MS Fentanyl and Related Allergy Dizziness Verified 06/01/17 13:52 [Fentanyl and Related] naproxen Allergy Unknown Verified 01/20/18 17:49 Reaction Details nitrofurantoin Allergy Unknown Verified 01/20/18 17:47 Reaction Details contrast dye Allergy Dizziness Uncoded 01/20/18 17:49 PMH/Surg Hx/FS Hx/Imm Hx Previously Healthy: No Endocrine/Hematology History: Reports: Hx Thyroid Disease - nonspecified Denies: Hx Diabetes Cardiovascular History: Reports: Hx Angina, Hx Hypercholesterolemia Denies: Hx Coronary Artery Disease, Hx Hypertension, Hx Myocardial Infarction , Hx Pacemaker/ICD, Hx Valvular Heart Disease Respiratory History: Reports: Hx Asthma Denies: Hx Chronic Obstructive Pulmonary Disease (COPD) GI History: Reports: Hx Gastroesophageal Reflux Disease History: Denies: Hx Dialysis, Hx Renal Disease Musculoskeletal History: Reports: Hx Arthritis, Hx Back Problems, Hx Fibromyalgia Sensory History: Reports: Hx Cataracts, Hx Hearing Aid - Rt EAR, Hx Hearing Problem Opthamlomology History: Reports: Hx Cataracts Neurological History: Reports: Hx Headaches Denies: Hx Dementia, Hx Seizures Psychiatric History: Reports: Other Psychiatric Issues/Disorders - claustrophobia Denies: Hx Panic Disorder - Surgical History Surgery Procedure, Year, and Place: TSP -LSP [place] RODS/SCREWS- 2010 - - TOTAL OF 5 SURGERIES LAST ONE 2010 Xs 2. BILATERAL HIP REPLACEMENT . TARSAL TUNNEL - Lt WART -REMOVED FROM EYELID. CARPAL TUNNEL - FLORIAN Lt KNEE -2 & Rt KNEE - 3 TIMES - ARTHROSCOPIC. CHOLECYSTECTOMY TONSILECTOMY- as child. HERNIA. APPENDECTOMY. FLORIAN BREAST REDUCTION. Lt THUMB - GANGLION CYST. Rt ARM - "LUMP" REMOVED- Infectious Disease History: No Infectious Disease History: Denies: Traveled Outside the [place] in Last 30 Days - Family History Known Family History: Positive: Cardiac Disease - Father used to use NTG. 3 brothers have had CABG. 4th had CVA and LA., Diabetes - Social History Alcohol Use: Rare Alcohol Amount: reports only a couple of drinks 4 times per year Hx Substance Use: Yes Substance Use Type: Reports: Prescribed Hx Tobacco Use: No Smoking Status (MU): Never Smoked Tobacco Review of Systems Positive: Chest Pain - intermittent Positive: Shortness Of Breath Negative: Vomiting Positive: Headache - radiates to mouth, bilateral arms, and chest. All Other Systems Reviewed And Are Negative: Yes Physical Exam - Summary Physical Exam Summary: VITAL SIGNS: Reviewed. GENERAL: Patient is a morbidly obese female who is lying comfortable in the stretcher. Patient is not in any acute respiratory distress. HEAD AND FACE: No signs of trauma. No ecchymosis, hematomas or skull depressions. No sinus tenderness. EYES: PERRLA, EOMI x 2, No injected conjunctiva, no nystagmus. EARS: Hearing grossly intact. Ear canals and tympanic membranes are within normal limits. MOUTH: Oropharynx within normal limits. NECK: Supple, trachea is midline, no adenopathy, no JVD, no carotid bruit, no c- spine tenderness, neck with full ROM. CHEST: Symmetric, no tenderness at palpation LUNGS: Clear to auscultation bilaterally. No wheezing or crackles. CVS: Regular rate and rhythm, S1 and S2 present, no murmurs or gallops appreciated. ABDOMEN: Soft, non-tender. No signs of distention. No rebound no guarding, and no masses palpated. Bowel sounds are normal. EXTREMITIES: Bilateral lower extremity edema. NEURO: Alert and oriented x 3. No acute neurological deficits. Speech is normal and follows commands. SKIN: Dry and warm Triage Information Reviewed: Yes Vital Signs On Initial Exam: Initial Vitals Temp Pulse Resp BP Pulse Ox 98.4 F 81 22 205/87 98 01/21/18 00:39 01/21/18 00:39 01/21/18 00:39 01/21/18 00:39 01/21/18 00:39 Vital Signs Reviewed: Yes Diagnostics - Vital Signs Vital Signs Temp Pulse Resp BP Pulse Ox 01/21/18 00:39 98.4 F 83 22 205/87 98 - Laboratory Result Diagrams: 01/21/18 01:13 01/21/18 01:14 Lab Statement: Any lab studies that have been ordered have been reviewed, and results considered in the medical decision making process. - Radiology CXR Radiology Interpretation Completed By: ED Physician - Cardiomegaly with bilateral venous congestion. ED physician has reviewed this report. - EKG 0117 Cardiac Rate: NL - 68 BPM EKG Rhythm: Sinus Rhythm EKG Interpretation: Minimal ST depression in lateral leads. T-wave inversions in inferior leads Chest Pain Course/Dx - Course Course Of Treatment: 77 year old F BIBA to [facility] complains of intermittent chest pain since 17:00 yesterday. Bloodwork obtained. EKG/CXR obtained. In ED course, patient given nitro drip and aspirin. Spoke with Dr. Steiner, hospitalist , who agrees to admit patient for further evaluation. - Diagnoses Provider Diagnoses: Unstable angina - Provider Notifications Discussed Care Of Patient With: Bryson Steiner Time Discussed With Above Provider: 02:55 Instructed by Provider To: Other - Dr. Steiner, hospitalist, agrees to admit patient Discharge - Sign-Out/Discharge Documenting (check all that apply): Discharge/Admit/Transfer - Admit to Dr. Steiner, hospitalist - Discharge Plan Condition: Stable Disposition: ADMITTED TO [facility] Referrals: Manas Villeda MD [Primary Care Provider] - The documentation as recorded by the Reyes schaffer Tiffany accurately reflects the service I personally performed and the decisions made by , Kylie Rocha MD.
[2018-01-21] MEDS ORDERED: Acetaminophen TAB* 325 MG PO PRN (03:52)
[2018-01-21] MEDS ORDERED: Albuterol 2.5 MG/3 ML NEB.SOL* (0.083%) INH PRN (04:12)
[2018-01-21] MEDS: Omeprazole CAP* 20 MG PO SCH ×2 (06:26→16:49)
[2018-01-21] MEDS: Heparin VIAL(*) 5000 UNITS/ML VIAL (FIVE THOUSAND) SUBCUT SCH ×3 (06:26→21:35)
[2018-01-21] MEDS: Levothyroxine TAB* 175 MCG TAB PO SCH (06:26)
--- NOTE | 2018-01-21 07:48 | RAD ---
INDICATION: Chest pain COMPARISON: July 01, 2017 TECHNIQUE: An AP portable view obtained at 0115 hours is submitted. FINDINGS: Bones/Soft Tissues: There are no acute bony findings. There is prior thoracolumbar fusion. Cardiomediastinal: The cardiac silhouette is enlarged. Central pulmonary vessels and interstitium are prominent. Lungs: Mild bibasilar atelectasis. Left basilar infiltrate is not excluded but the findings may all be related to the cardiac silhouette and due to a small amount of pleural fluid. Pleura: Small bilateral pleural effusions. Other: None IMPRESSION: VASCULAR CONGESTIVE CHANGES. SUGGEST FOLLOW-UP.
--- NOTE | 2018-01-21 07:50 | HP ---
ADMISSION HISTORY AND PHYSICAL: DATE OF ADMISSION: 01/21/18 PRIMARY CARE PROVIDER: Dr. Villeda. SPORTS ANALYST: Dr. Delgado. HEALTHCARE PROXY: Her . CODE STATUS: Full. SOURCE OF INFORMATION: History obtained from interview with the patient, review of past medical records including Dr. Delgado's most recent note. RELIABILITY: Good. CHIEF COMPLAINT: Chest pain. HISTORY OF PRESENT ILLNESS: This is a 77-year-old female with past medical history of CAD, last cardiac cath in September 2016, had a 99% ostial lesion in her RCA at that point secondary to concern for bleeding in the setting of a recent GI bleed. She was managed medically. She had been doing well until approximately 2 weeks prior to presentation when she started to develop recurrent symptoms of her typical angina, which started with a headache and then starts radiating to her left arm. Then she gets chest pain and it now also involves her right arm. After she was seen in cardiology clinic approximately 2 weeks ago, the pain had become more frequent, started to occur almost every single day. It usually lasts 10 minutes and resolves with 1 nitro. She had 1 day that she had 8 episodes and then it increased in frequency to having 2 or 3 episodes per day. Last night, the night of presentation, she had 5 episodes before bed and then in bed, had 3 additional episodes with very little time in between. She took nitro 7 times before coming to the emergency room. She came to the emergency room after the 3 final episodes because she was told she should not take nitro more than 3 times in a row. She can get the symptoms at rest or with exertion. The last episodes of 3 lasted approximately 30 minutes. They are not associated with shortness of breath, although she does have shortness of breath with exertion. She had no nausea, vomiting, fevers. No syncope. No palpitations. She sleeps at 45 degrees in her bed, which is unchanged. Her lisinopril has been withheld since the time of her last visit with Cardiology on 01/16/18. Otherwise, no other medication changes recently. PAST MEDICAL HISTORY: Includes: 1. Asthma. 2. Chronic lymphedema. 3. VALENTIN. She does not use her CPAP. 4. Atrial fibrillation, not on anticoagulation. 5. Restless leg syndrome. 6. Central tremor. 7. Chronic pain. 8. GERD. 9. Hypothyroidism. 10. CAD with last cath in September 2016. 11. Peptic ulcer disease with gastric ulcer complicated by upper GI bleed in 2017. 12. Fibromyalgia. 13. Esophageal spasm. 14. Chronic respiratory failure, uses 2 L of oxygen at sleep, mostly at night and sometimes during the day. MEDICATIONS: Medications taken from most recent cardiology note include: 1. Plavix 75 mg daily. 2. Ranexa 500 mg twice daily. 3. Isosorbide mononitrate 120 mg daily. 4. Amlodipine 10 mg daily. 5. Ezetimibe 10 mg daily. 6. Omeprazole 40 mg daily, but takes twice daily per the patient. 7. Oxycodone/acetaminophen 10/325 mg 1 to 2 tabs up to 6 times per day. 8. Torsemide 10 mg daily. 9. Primidone 100 mg at bedtime. 10. Singulair 10 mg daily. 11. Vitamin B complex 100 mcg daily. 12. Advair 500/50 one puff twice daily. 13. Albuterol 4 times a day as needed. 14. Senna 8.6 twice daily as needed. 15. Colace 100 mg twice daily. 16. Fluticasone 50 mcg 2 sprays both nares daily. 17. Multivitamin daily. 18. Venlafaxine 37.5 mg in the evening. 19. Levocetirizine 5 mg daily. 20. Amitriptyline 10 mg daily. 21. Ferrous sulfate 325 mg daily. 22. Levothyroxine 175 mcg daily. 23. Amiodarone 200 mg daily. 24. Ventolin 2 puffs every 4 hours as needed. 25. Metoprolol tartrate 25 mg twice daily. 26. Breo Ellipta 100/25 mcg 1 puff inhaled daily. 27. Nitroglycerin sublingual 0.4 mg up to 3 times as needed. 28. Flovent HFA 100 mcg as needed. 29. Shark Cartilage 500 mg 2 by mouth twice daily. 30. Calcium/magnesium 750/465 daily. 31. Aspirin 81 mg daily. ALLERGIES: Include TIAGABINE, AMITRIPTYLINE, ATORVASTATIN, IODINATED CONTRAST MEDIA, MISOPROSTOL, P.O. SALINE, TIZANIDINE, STATINS and OTHER HMG-COA REDUCTASE INHIBITORS, IMIPRAMINE, FENTANYL, NAPROXEN, MACROBID. FAMILY HISTORY: Mother at 84 with CAD. Father in his 80s from CAD. SOCIAL HISTORY: Lives with her . No illicits. REVIEW OF SYSTEMS: As per HPI, otherwise all other systems are negative. PHYSICAL EXAMINATION GENERAL: Obese, sitting up in the bed, interactive, pleasant, in no apparent distress. VITALS: In the emergency room upon presentation, systolic blood pressure 205, 165 when seen by this author on ; heart rate 58; respiratory rate 16 ; 95% on 2 L; T-max 98.4. HEENT: Oropharynx is clear. Has moist mucous membranes. Sclerae are anicteric. NECK: JVD . LUNGS: Clear. Decreased in the bases. HEART: Regular rate and rhythm. No murmurs, rubs, or gallops. ABDOMEN: Soft, nontender, nondistended. EXTREMITIES: Warm and well perfused. She is wearing lower extremity compression stockings without evidence of edema or pitting edema. NEUROLOGIC: She is alert and oriented x3. Her cranial nerves II through XII are intact. No apparent anxiety, agitation, or depression. PERTINENT LABORATORY DATA: Troponin I of 0.01. Creatinine 1.41. INR 0.92. Hemoglobin 10.1, platelets 223,000. IMAGING: EKG: Normal sinus rhythm, slightly increased QRS, submillimeter ST depression in V4, [address] depression in V5, downsloping ST in V6, T-wave inversions in 3 and aVF. ASSESSMENT AND PLAN: This is a 77-year-old female with past medical history of coronary artery disease, 99% stenosis in the ostium of the RCA 1 year prior to presentation, has had increasing crescendo of anginal type symptoms. She will be admitted to the hospital for unstable angina. 1. Unstable angina. First troponin is negative. Chest pain is resolved on nitroglycerin. I will not heparinize the patient at this time; however, the patient was scheduled to have a cardiac catheterization tomorrow on . Consult Cardiology. Maintain the patient n.p.o. Enquire whether she should undergo cardiac catheterization today. Continue home medications including aspirin and Plavix. Holding lisinopril and diuretic. Further care to be dictated by Cardiology team. 2. Atrial fibrillation, currently in normal sinus rhythm. Continue amiodarone. Does not appear to be on full dose anticoagulation. 3. Hypertension. Came in with hypertensive urgency in the setting of chest pain, improved with nitroglycerin. Continue all home medications except for lisinopril 10 mg. Unclear what caused the greatly increased blood pressure other than pain, although now resolved and still quite high blood pressures on nitroglycerin. We will continue nitroglycerin and resume oral medications tomorrow. She knows that she did not miss her evening medications. 4. Obstructive sleep apnea. Currently, not using CPAP. Attention to breathing status. 5. Chronic kidney disease. Holding diuretics in the setting of prior tube for central catheterization. 6. DVT prophylaxis. Heparin subcu. [id number]/[facility] #: [id number] [facility]
[2018-01-21] MEDS ORDERED: EVOLOCUMAB 140 MG SUBCUT SCH (09:00)
[2018-01-21] MEDS ORDERED: Fluticasone NASAL SPRAY 50MCG* 16 gm SPRAY BTL BOTH NARES SCH (09:00)
[2018-01-21] MEDS ORDERED: Fluticasone HFA 110 mcg(NF) MDI INH SCH (09:00)
[2018-01-21] MEDS: CMCS:Ranolazine (NF) 500 MG TAB PO SCH ×2 (09:13→21:35)
[2018-01-21] MEDS: Metoprolol Tartrate TAB* 25 MG PO SCH ×2 (09:13→21:35)
[2018-01-21] MEDS: Isosorbide Mononitrate ER TAB* 60 MG PO SCH (09:13)
[2018-01-21] MEDS: Ferrous Sulfate TAB* 325 MG PO SCH (09:14)
[2018-01-21] MEDS: Amiodarone TAB* 200 MG PO SCH (09:14)
[2018-01-21] MEDS: Docusate CAP* 100 MG PO SCH ×2 (09:14→21:34)
[2018-01-21] MEDS: Cholecalciferol TAB* 1000 UNITS PO SCH (09:14)
[2018-01-21] MEDS: Cetirizine* 10 MG TAB PO SCH (09:14)
[2018-01-21] MEDS: Aspirin EC TAB* 81 MG TAB.EC PO SCH (09:15)
[2018-01-21] MEDS: Ezetimibe TAB* 10 MG PO SCH (09:15)
[2018-01-21] MEDS: amLODIPine TAB* 5 MG PO SCH (09:15)
[2018-01-21] MEDS: Senna TAB PO SCH ×2 (09:15→21:34)
[2018-01-21] MEDS: Montelukast Sodium TAB* 10 MG PO SCH (09:15)
[2018-01-21] MEDS ORDERED: diPHENhydraMINE PO* 25 MG PO ONE (10:13)
[2018-01-21] MEDS ORDERED: Diazepam TAB(*) 5 MG PO ONE (10:13)
[2018-01-21] MEDS ORDERED: Ticagrelor* 90 MG TAB PO ONE (10:31)
[2018-01-21] MEDS: Mometasone/Formoter 200/5 MDI INH SCH ×2 (10:41→19:06)
--- NOTE | 2018-01-21 10:57 | PN ---
Subjective Date of Service: 01/21/18 Interval History: Pt has not had any CP today "yet". Had been having GARCIA " after taking 8 steps" and CP with and without exercise Objective Active Medications: Acetaminophen (Tylenol Tab*) 650 mg PO Q6HR PRN PRN Reason: PAIN Hydrocodone Bitart/Acetaminophen (Harvel 5-325 Tab*) 1 tab PO Q4H PRN PRN Reason: PAIN Albuterol (Ventolin 2.5 Mg/3 Ml Neb.Raiza*) 2.5 mg INH QID PRN PRN Reason: SHORTNESS OF BREATH Amiodarone HCl (Cordarone Tab*) 200 mg PO DAILY [facility] Last Admin: 01/21/18 09:14 Dose: 200 mg Amitriptyline HCl (Elavil Tab*) 10 mg PO BEDTIME [facility] Amlodipine Besylate (Norvasc Tab*) 10 mg PO DAILY [facility] Last Admin: 01/21/18 09:15 Dose: 10 mg Aspirin (Aspirin Ec Tab*) 81 mg PO DAILY [facility] Last Admin: 01/21/18 09:15 Dose: 81 mg Cetirizine HCl (Zyrtec*) 10 mg PO DAILY [facility] Last Admin: 01/21/18 09:14 Dose: 10 mg Cholecalciferol (Vitamin D Tab*) 1,000 units PO DAILY [facility] Last Admin: 01/21/18 09:14 Dose: 1,000 units Diazepam (Valium Tab(*)) 5 mg PO ONCE ONE Stop: 01/21/18 10:14 Diphenhydramine HCl (Benadryl Po*) 25 mg PO ONCE ONE Stop: 01/21/18 10:14 Docusate Sodium (Colace Cap*) 200 mg PO BID [facility] Last Admin: 01/21/18 09:14 Dose: 200 mg Ezetimibe (Zetia Tab*) 10 mg PO DAILY [facility] Last Admin: 01/21/18 09:15 Dose: 10 mg Famotidine (Pepcid Tab*) 20 mg PO BEDTIME [facility] Ferrous Sulfate (Ferrous Sulfate Tab*) 325 mg PO DAILY [facility] Last Admin: 01/21/18 09:14 Dose: 325 mg Heparin Sodium (Porcine) (Heparin Vial(*)) 5,000 units SUBCUT Q8HR [facility] Last Admin: 01/21/18 06:26 Dose: 5,000 units Nitroglycerin/Dextrose (Nitroglycerin Drip*) 25,000 mcg in 250 mls @ 6 mls/hr IV ED ONCE ONE Stop: 01/22/18 18:56 Last Admin: 01/21/18 02:12 Dose: 6 mls/hr Nitroglycerin/Dextrose (Nitroglycerin Drip*) 25,000 mcg in 250 mls @ 0 mls/hr IV .(Initial Rate) JASON; Protocol Sodium Chloride (Ns 0.9% 1000 Ml*) 1,000 mls @ 75 mls/hr IV .per rate [facility] Isosorbide Mononitrate (Imdur Er Tab*) 120 mg PO DAILY [facility] Last Admin: 01/21/18 09:13 Dose: 120 mg Levothyroxine Sodium (Synthroid Tab*) 175 mcg PO DAILY@0600 [facility] Last Admin: 01/21/18 06:26 Dose: 175 mcg Metoprolol Tartrate (Lopressor Tab*) 25 mg PO BID [facility] Last Admin: 01/21/18 09:13 Dose: 25 mg Mometasone Furoate/Formoterol Fumar (Dulera 200/5 Mdi*) 2 puff INH BID [facility] Last Admin: 01/21/18 10:41 Dose: 2 puff Montelukast Sodium (Singulair Tab*) 10 mg PO DAILY [facility] Last Admin: 01/21/18 09:15 Dose: 10 mg Non-Formulary Medication (Evolocumab [Repatha Sureclick]) 140 mg SUBCUT Q14D [facility] Last Admin: 01/21/18 09:33 Dose: Not Given Non-Formulary Medication (Pramipexole Di-Hcl [Pramipexole Dihydrochloride]) 2 tab PO BEDTIME [facility] Omeprazole (Prilosec Cap*) 40 mg PO BID AC [facility] Last Admin: 01/21/18 06:26 Dose: 40 mg Ranolazine (Ranexa (Nf)) 500 mg PO BID [facility]; Protocol Last Admin: 01/21/18 09:13 Dose: 500 mg Senna (Senokot Tab*) 1 tab PO BID [facility] Last Admin: 01/21/18 09:15 Dose: 1 tab Ticagrelor (Brilinta*) 180 mg PO ONCE ONE Stop: 01/21/18 10:32 Ticagrelor (Brilinta*) 90 mg PO BID [facility] Venlafaxine HCl (Effexor Xr Cap*) 37.5 mg PO BEDTIME [facility] Vital Signs - 8 hr 01/21/18 01/21/18 01/21/18 03:00 03:01 03:24 Temperature Pulse Rate 68 72 77 Respiratory 15 14 7 Rate Blood Pressure 144/67 180/96 (mmHg) O2 Sat by Pulse 95 95 96 Oximetry 01/21/18 01/21/18 01/21/18 03:31 03:41 03:51 Temperature Pulse Rate 66 68 61 Respiratory 15 14 19 Rate Blood Pressure 180/83 179/81 165/70 (mmHg) O2 Sat by Pulse 97 95 95 Oximetry 01/21/18 01/21/18 01/21/18 04:00 04:01 04:11 Temperature Pulse Rate 58 57 57 Respiratory 17 24 22 Rate Blood Pressure 144/63 144/61 (mmHg) O2 Sat by Pulse 95 95 95 Oximetry 01/21/18 01/21/18 01/21/18 04:21 04:31 05:00 Temperature Pulse Rate 63 58 Respiratory 13 10 13 Rate Blood Pressure 145/67 143/63 (mmHg) O2 Sat by Pulse 95 95 Oximetry 01/21/18 01/21/18 01/21/18 05:05 05:15 05:30 Temperature 98.4 F Pulse Rate 72 64 62 Respiratory 18 18 13 Rate Blood Pressure 202/95 171/76 170/79 (mmHg) O2 Sat by Pulse 97 98 98 Oximetry 01/21/18 01/21/18 01/21/18 05:45 06:00 06:15 Temperature Pulse Rate 61 59 60 Respiratory 21 16 19 Rate Blood Pressure 159/73 157/65 (mmHg) O2 Sat by Pulse 97 96 94 Oximetry 01/21/18 01/21/18 01/21/18 06:30 06:34 06:45 Temperature Pulse Rate 60 60 Respiratory 18 12 15 Rate Blood Pressure 160/79 161/78 (mmHg) O2 Sat by Pulse 97 96 Oximetry 01/21/18 01/21/18 01/21/18 07:00 07:15 07:30 Temperature Pulse Rate 61 55 56 Respiratory 11 13 13 Rate Blood Pressure 132/66 133/60 139/61 (mmHg) O2 Sat by Pulse 95 94 95 Oximetry 01/21/18 01/21/18 01/21/18 07:38 07:45 08:00 Temperature 98 F Pulse Rate 56 55 Respiratory 14 14 Rate Blood Pressure 135/60 121/54 (mmHg) O2 Sat by Pulse 95 95 Oximetry 01/21/18 01/21/18 01/21/18 08:15 08:31 09:00 Temperature Pulse Rate 53 58 56 Respiratory 12 19 10 Rate Blood Pressure 119/47 120/81 145/63 (mmHg) O2 Sat by Pulse 96 96 97 Oximetry 01/21/18 01/21/18 01/21/18 09:15 09:31 09:45 Temperature Pulse Rate 60 61 61 Respiratory 16 20 19 Rate Blood Pressure 137/57 167/76 150/80 (mmHg) O2 Sat by Pulse 96 96 96 Oximetry 01/21/18 01/21/18 10:00 10:44 Temperature 98.3 F Pulse Rate 59 Respiratory 18 Rate Blood Pressure 155/70 (mmHg) O2 Sat by Pulse 98 Oximetry Oxygen Devices in Use Now: Nasal Cannula Appearance: 77 yo F in nAD, aAOx3 Eyes: No Scleral Icterus, PERRLA Ears/Nose/Mouth/Throat: NL Teeth, Lips, Gums, Mucous Membranes Moist Neck: NL Appearance and Movements; NL JVP, Trachea Midline Respiratory: Symmetrical Chest Expansion and Respiratory Effort, - - crackles at b/l bases Cardiovascular: NL Sounds; No Murmurs; No JVD, RRR Abdominal: NL Sounds; No Tenderness; No Distention Lymphatic: No Cervical Adenopathy Extremities: No Clubbing, Cyanosis, - - b/l LE's lymphoedema noted Skin: No Rash or Ulcers, No Nodules or Sclerosis Neurological: Alert and Oriented x 3, NL Muscle Strength and Tone Result Diagrams: 01/21/18 01:13 01/21/18 01:14 Microbiology and Other Data: Microbiology 01/21/18 05:15 Nasal Screen MRSA (PCR) - Final Nasal Mrsa Not Detected Assess/Plan/Problems-Billing Assessment: 77 yo F with h/o CAD(99% stenosis RCA-managed medically in 2017), chronic angina, asthma (chronic hypoxemic respiratory failure on 02 at 2L), CKD stage 3, paroxysmal A. fib, essential tremor who presents with CP increasing in frequency. was planned for outpatient cath on 01/22/18 - Patient Problems (1) Chest pain Comment: - not currently, trop 0.2, EKG with stable changes in inferior leads -due to angina, started on Blilinta per cardiology, cont ASA, cath in aM (2) Anemia Comment: Hgb appears to be at baseline. Under the care of Dr. Romero No evidence of bleeding (3) Atrial fibrillation Comment: - S/p cardioversion 09/25/16 - in sinus on Amiodarone and low dose metoprolol. -no anticoagulation due to h/o PUD in 2017 (4) CKD (chronic kidney disease) Comment: - Stage III -creat at baseline (5) Essential tremor Comment: cont primidone (6) Hypertension Comment: SBP in 150's, cont Norvasc, lopressor, monitor, no change in meds for now (7) Chronic hypoxemic respiratory failure Comment: on home 02 at 2L (8) Asthma Comment: cont home inhalers, not in exacerbation (9) Chronic diastolic (congestive) heart failure Comment: today appears euvolemic, holding torsemide pre cath (10) DVT prophylaxis Comment: - SQ heparin.
[2018-01-21] MEDS: HYDROcodone/ACETAMIN 5-325 MG* 1 TAB PO PRN ×2 (11:16→21:34)
--- NOTE | 2018-01-21 12:45 | CONS ---
CC: Dr. You Delgado; Dr. Manas Villeda. CARDIOLOGY CONSULTATION: DATE OF CONSULT: 01/21/18 INDICATION FOR CONSULT: 1. Acute coronary syndrome. 2. Coronary artery disease. HISTORY OF PRESENT ILLNESS: The patient is a 77-year-old female with a history of paroxysmal atrial fibrillation, history of coronary artery disease, history of renal insufficiency, hypertension who wa s scheduled to have a cardiac cath tomorrow here at [facility]. The patient states that last night she started having chest pain around 4 o'clock. She had it on and off for about an hour. She took a couple of nitroglycerin with relief. And then around 9 o'clock at night she started getting ready for bed and had much more severe chest pain. She took 4 nitroglycer in right in the row and then decided to call the ambulance. On arrival to the emergency room she was still having some mild chest pain. Another nitroglycerin in the emergency room and a nitroglycerin drip and she has been pain free overnight. Her initial troponin level was negative. Her second troponin level was 0.27. Her EKG showed some T- wave inversions in the inferior leads. PAST MEDICAL HISTORY: The patient's past medical history is significant for renal insufficiency, hyp ertension, paroxysmal atrial fibrillation, coronary artery disease, dyslipidemia, peptic ulcer diseas e. PAST SURGICAL HISTORY: Back surgery, cholecystectomy, hernia repair, knee surgery, carpal tunnel rel ease, hip replacement, appendectomy. She does have a history of nausea associated with conscious sed ation. MEDICATIONS: Outpatient medications: 1. Ranexa 500 mg b.i.d. 2. Plavix 75 mg a day. 3. Isosorbide mononitrate 120 mg daily. 4. Amlodipine 10 mg a day. 5. Zetia 10 mg a day. 6. Torsemide 10 mg a day. 7. Primidone 100 mg at night. 8. Advair Diskus. 9. Albuterol inhalers. 10. Venlafaxine 37.5 mg a day. 11. Amitriptyline 10 mg a night. 12. Levothyroxine 175 mcg a day. 13. Amiodarone 200 mg a day. 14. Metoprolol tartrate 25 mg b.i.d. 15. Breo Ellipta inhaler daily. 16. Aspirin 81 mg a day. 17. Vitamin D. 18. Ranitidine 150 mg q.h.s. 19. Lisinopril 10 mg a day. ALLERGIES: She is intolerant of multiple STATIN medications, ZANAFLEX, NAPROSYN, NITROFURANTOIN. SOCIAL HISTORY: She is , she lives with her , she is retired. She denies tobacco use, rare alcohol intake. She does not get any regular exercise. PHYSICAL EXAM: Height is 5 feet 1 inch, weight 260 pounds, temperature 98.3, heart rate is 60, blood pressure 150/80, respiratory rate is 18, and oxygen saturation 98% on 2 L. Sclerae anicteric. Orop harynx is pink, no erythema. Carotids are 2+ without bruits. JVD is normal. Thyroid is normal. Ca rdiac Exam: S1 and S2 without any murmurs, rubs, or gallops. Lungs are clear to auscultation bilate rally with no dullness to percussion. Abdomen is soft, nontender, and nondistended with normoactive bowel sounds. Extremities: Showed no edema. She has 2+ pulses throughout. The patient is awake, a lert, and oriented. She moves all 4 extremities equally. DIAGNOSTIC STUDIES/LAB DATA: Chemistry is within normal limits, BUN 32, creatinine 1.4 which is abou t at her baseline. AST and ALT are normal. White cell count 6.4, hemoglobin 10, hematocrit 29 which again is about her baseline hemoglobin and hematocrit, platelet count 223. EKG shows normal sinus r hythm, incomplete right bundle branch block, T-wave inversions in the inferior leads. IMPRESSION: This is a 77-year-old female with a history of known coronary artery disease, history of critical disease to her right coronary artery who is scheduled to have a planned cardiac cath tomorr ow here at [facility]. The patient came into the hospital with crescendo angina and had a small troponin bump consistent with acute coronary syndrome. Currently, the patient is pain free. The patient was scheduled for a cardiac cath tomorrow. The patient will be started on Brilinta becau se of her acute coronary syndrome. Her Plavix will be stopped. The patient will not be started on he eunice at this time. Further recommendations pending her cardiac catheterization. [id number]/[facility] #: [id number]
[2018-01-21] MEDS ORDERED: Primidone TAB(*) 50 MG PO SCH (21:00)
[2018-01-21] MEDS: Venlafaxine EXT RELEASE CAP* 37.5 MG PO SCH (21:34)
[2018-01-21] MEDS: Amitriptyline TAB* 10 MG PO SCH (21:34)
[2018-01-21] MEDS: Famotidine TAB* 20 MG PO SCH (21:34)
[2018-01-21] MEDS: Ticagrelor* 90 MG TAB PO SCH (21:34)
[2018-01-21] MEDS: Pramipexole TAB* 0.5 MG PO SCH (21:34)
[2018-01-21] MEDS ORDERED: Pantoprazole IV* 40 MG IV SCH (23:00)
[2018-01-22] MEDS: Levothyroxine TAB* 175 MCG TAB PO SCH (05:00)
[2018-01-22] MEDS: Heparin VIAL(*) 5000 UNITS/ML VIAL (FIVE THOUSAND) SUBCUT SCH ×3 (05:00→21:29)
[2018-01-22 05:21] LABS: ABS Basophils 0 10^3/ul (0-0.2); ABS Eosinophils 0.2 10^3/ul (0-0.6); ABS Lymphocytes 1.6 10^3/ul (1.0-4.8); ABS Monocytes 0.4 10^3/ul (0-0.8); ABS Neutrophils 2.9 10^3/ul (1.5-7.7); ABS Nucleated RBC 0 10^3/ul; Eosinophil % 3.6 % (0-6); Hematocrit 24 % (35-47); Hemoglobin 8.2 g/dl (12.0-16.0); Lymphocyte % 30.6 % (25-47); Mean Corpuscular HGB Conc 34 g/dl (31-36); Mean Corpuscular Hemoglobin 33 pg (27-31); Mean Corpuscular Volume 96 fL (80-97); Mean Platelet Volume 7.3 um3 (7.4-10.4); Nucleated Red Blood Cells % 0; Platelet Count 182 10^3/ul (150-450); Red Blood Count 2.51 10^6/ul (4.00-5.40); Red Cell Distribution Width 13 % (10.5-15); White Blood Count 5.1 10^3/ul (3.5-10.8)
[2018-01-22] MEDS: Omeprazole CAP* 20 MG PO SCH ×2 (07:32→16:32)
[2018-01-22] MEDS: Mometasone/Formoter 200/5 MDI INH SCH ×2 (08:19→19:57)
[2018-01-22] MEDS ORDERED: Chlorhexidine MOUTHWASH 0.12%* 15 ML UDC SWISH SPIT SCH (09:00)
[2018-01-22] MEDS: Cholecalciferol TAB* 1000 UNITS PO SCH (09:21)
[2018-01-22] MEDS: amLODIPine TAB* 5 MG PO SCH (09:21)
[2018-01-22] MEDS: Aspirin EC TAB* 81 MG TAB.EC PO SCH (09:21)
[2018-01-22] MEDS: Cetirizine* 10 MG TAB PO SCH (09:21)
[2018-01-22] MEDS: Amiodarone TAB* 200 MG PO SCH (09:21)
[2018-01-22] MEDS: Ezetimibe TAB* 10 MG PO SCH (09:21)
[2018-01-22] MEDS: Ferrous Sulfate TAB* 325 MG PO SCH (09:21)
[2018-01-22] MEDS: Senna TAB PO SCH ×2 (09:22→21:29)
[2018-01-22] MEDS: Ticagrelor* 90 MG TAB PO SCH ×2 (09:22→21:28)
[2018-01-22] MEDS: Docusate CAP* 100 MG PO SCH ×2 (09:22→21:29)
[2018-01-22] MEDS: Metoprolol Tartrate TAB* 25 MG PO SCH ×2 (09:22→21:26)
[2018-01-22] MEDS: Isosorbide Mononitrate ER TAB* 60 MG PO SCH (09:24)
--- NOTE | 2018-01-22 10:49 | PN ---
Subjective Date of Service: 01/22/18 Interval History: No chest pain since NTG infusion started. No new c/o. No BM since admission, no N,V. Objective Active Medications: Acetaminophen (Tylenol Tab*) 650 mg PO Q6HR PRN PRN Reason: PAIN Hydrocodone Bitart/Acetaminophen ([place] 5-325 Tab*) 1 tab PO Q4H PRN PRN Reason: PAIN Last Admin: 01/21/18 21:34 Dose: 1 tab Albuterol (Ventolin 2.5 Mg/3 Ml Neb.Raiza*) 2.5 mg INH QID PRN PRN Reason: SHORTNESS OF BREATH Amiodarone HCl (Cordarone Tab*) 200 mg PO DAILY [facility] Last Admin: 01/22/18 09:21 Dose: 200 mg Amitriptyline HCl (Elavil Tab*) 10 mg PO BEDTIME [facility] Last Admin: 01/21/18 21:34 Dose: 10 mg Amlodipine Besylate (Norvasc Tab*) 10 mg PO DAILY [facility] Last Admin: 01/22/18 09:21 Dose: 10 mg Aspirin (Aspirin Ec Tab*) 81 mg PO DAILY [facility] Last Admin: 01/22/18 09:21 Dose: 81 mg Cetirizine HCl (Zyrtec*) 10 mg PO DAILY [facility] Last Admin: 01/22/18 09:21 Dose: 10 mg Cholecalciferol (Vitamin D Tab*) 1,000 units PO DAILY [facility] Last Admin: 01/22/18 09:21 Dose: 1,000 units Docusate Sodium (Colace Cap*) 200 mg PO BID [facility] Last Admin: 01/22/18 09:22 Dose: Not Given Ezetimibe (Zetia Tab*) 10 mg PO DAILY [facility] Last Admin: 01/22/18 09:21 Dose: 10 mg Famotidine (Pepcid Tab*) 20 mg PO BEDTIME [facility] Last Admin: 01/21/18 21:34 Dose: 20 mg Ferrous Sulfate (Ferrous Sulfate Tab*) 325 mg PO DAILY [facility] Last Admin: 01/22/18 09:21 Dose: 325 mg Heparin Sodium (Porcine) (Heparin Vial(*)) 5,000 units SUBCUT Q8HR [facility] Last Admin: 01/22/18 05:00 Dose: 5,000 units Nitroglycerin/Dextrose (Nitroglycerin Drip*) 25,000 mcg in 250 mls @ 6 mls/hr IV ED ONCE ONE Stop: 01/22/18 18:56 Last Admin: 01/21/18 18:16 Dose: 12 mls/hr Nitroglycerin/Dextrose (Nitroglycerin Drip*) 25,000 mcg in 250 mls @ 0 mls/hr IV .(Initial Rate) [facility]; Protocol Sodium Chloride (Ns 0.9% 1000 Ml*) 1,000 mls @ 75 mls/hr IV .per rate [facility] Isosorbide Mononitrate (Imdur Er Tab*) 120 mg PO DAILY [facility] Last Admin: 01/22/18 09:24 Dose: Not Given Levothyroxine Sodium (Synthroid Tab*) 175 mcg PO DAILY@0600 [facility] Last Admin: 01/22/18 05:00 Dose: 175 mcg Metoprolol Tartrate (Lopressor Tab*) 25 mg PO BID [facility] Last Admin: 01/22/18 09:22 Dose: 25 mg Mometasone Furoate/Formoterol Fumar (Dulera 200/5 Mdi*) 2 puff INH BID [facility] Last Admin: 01/22/18 08:19 Dose: 2 puff Montelukast Sodium (Singulair Tab*) 10 mg PO DAILY [facility] Last Admin: 01/21/18 09:15 Dose: 10 mg Omeprazole (Prilosec Cap*) 40 mg PO BID [facility] Last Admin: 01/22/18 07:32 Dose: Not Given Pramipexole Dihydrochloride (Mirapex Tab*) 2 mg PO BEDTIME [facility] Last Admin: 01/21/18 21:34 Dose: 2 mg Ranolazine (Ranexa (Nf)) 500 mg PO BID [facility]; Protocol Last Admin: 01/21/18 21:35 Dose: 500 mg Senna (Senokot Tab*) 1 tab PO BID [facility] Last Admin: 01/22/18 09:22 Dose: Not Given Ticagrelor (Brilinta*) 90 mg PO BID [facility] Last Admin: 01/22/18 09:22 Dose: 90 mg Venlafaxine HCl (Effexor Xr Cap*) 37.5 mg PO BEDTIME [facility] Last Admin: 01/21/18 21:34 Dose: 37.5 mg Vital Signs - 8 hr 01/22/18 01/22/18 01/22/18 02:45 03:00 03:15 Temperature Pulse Rate 64 55 55 Respiratory 13 10 10 Rate Blood Pressure 141/62 131/51 123/52 (mmHg) O2 Sat by Pulse 99 98 97 Oximetry 01/22/18 01/22/18 01/22/18 03:30 03:45 04:00 Temperature Pulse Rate 54 56 53 Respiratory 9 15 21 Rate Blood Pressure 112/51 144/60 119/51 (mmHg) O2 Sat by Pulse 98 98 98 Oximetry 01/22/18 01/22/18 01/22/18 04:15 04:30 04:45 Temperature Pulse Rate 58 57 60 Respiratory 13 15 15 Rate Blood Pressure 114/64 134/57 137/62 (mmHg) O2 Sat by Pulse 99 99 99 Oximetry 01/22/18 01/22/18 01/22/18 05:00 05:01 05:36 Temperature 98.3 F Pulse Rate 58 66 Respiratory 19 14 Rate Blood Pressure 187/83 (mmHg) O2 Sat by Pulse 98 98 Oximetry 01/22/18 01/22/18 01/22/18 05:45 06:00 06:15 Temperature Pulse Rate 61 55 54 Respiratory 11 15 18 Rate Blood Pressure 148/67 129/56 114/54 (mmHg) O2 Sat by Pulse 97 97 98 Oximetry 01/22/18 01/22/18 01/22/18 06:30 06:45 07:00 Temperature Pulse Rate 54 54 55 Respiratory 14 21 18 Rate Blood Pressure 117/49 129/51 130/55 (mmHg) O2 Sat by Pulse 97 97 97 Oximetry 01/22/18 01/22/18 01/22/18 07:15 07:21 08:20 Temperature 97.4 F Pulse Rate 58 54 Respiratory 21 10 Rate Blood Pressure 163/69 (mmHg) O2 Sat by Pulse 99 99 Oximetry Oxygen Devices in Use Now: Nasal Cannula Appearance: Alert, sitting on the edge of her ICU bed. In good spirits. Looks comfortable. Eyes: No Scleral Icterus Respiratory: Symmetrical Chest Expansion and Respiratory Effort, Clear to Auscultation, Clear to Percussion Cardiovascular: NL Sounds; No Murmurs; No JVD, RRR, No Edema, - Extremities: No Edema, No Clubbing, Cyanosis, - Skin: No Rash or Ulcers, No Nodules or Sclerosis, - Neurological: Alert and Oriented x 3, NL Sensation Result Diagrams: 01/22/18 05:00 07/04/18 01:14 Microbiology and Other Data: Microbiology 01/21/18 05:15 Nasal Screen MRSA (PCR) - Final Nasal Mrsa Not Detected Assess/Plan/Problems-Billing Assessment: 77 yo F with h/o CAD(99% stenosis RCA-managed medically in 2017), chronic angina, asthma (chronic hypoxemic respiratory failure on 02 at 2L), CKD stage 3, paroxysmal A. fib, essential tremor who presents with CP increasing in frequency. was planned for outpatient cath on 01/22/18 - Patient Problems (1) CAD (coronary artery disease) Current Visit: No Status: Chronic Code(s): I25.10 - ATHSCL HEART DISEASE OF [place] CORONARY ARTERY W/O ANG PCTRS SNOMED Code(s): 58097678 Comment: Troponin fell from 0.27 to 0.14 since admission. No angina on NRG drip. Plan for cardicac cath when issue of sudden drop in Hgb is resolved. Discussed with Dr. Herron. (2) Anemia Current Visit: No Status: Acute Priority: High Code(s): D64.9 - ANEMIA, UNSPECIFIED SNOMED Code(s): 136092605 Comment: Hgb fell from 10.1 to 8.2 since admission. Repeat CBC 1 P< 7/5, again 01/23. Message left for Dr. Chen to call be back to discuss w/up. She takes no NSAID's other than ASA 81 mg daily. (3) Atrial fibrillation Current Visit: No Status: Acute Priority: High Code(s): I48.91 - UNSPECIFIED ATRIAL FIBRILLATION SNOMED Code(s): 27758417 Comment: - S/p cardioversion 09/25/16 - in sinus on Amiodarone and low dose metoprolol. -no anticoagulation due to h/o PUD in 2017 (4) CKD (chronic kidney disease) Current Visit: No Status: Acute Code(s): N18.9 - CHRONIC KIDNEY DISEASE, UNSPECIFIED SNOMED Code(s): 484089284 Comment: - Stage III, creat at baseline, BMP 01/23. (5) Hypertension Current Visit: No Status: Chronic Priority: High Code(s): I10 - ESSENTIAL (PRIMARY) HYPERTENSION SNOMED Code(s): 81264846 Comment: SBP in 150's, cont Norvasc, lopressor, monitor, no change in meds for now (6) Hypothyroidism Current Visit: No Status: Chronic Priority: High Code(s): E03.9 - HYPOTHYROIDISM, UNSPECIFIED SNOMED Code(s): 60767973 Comment: - TSH8.23 on 01/20/18. - Increase Levothyroxine to 200 mcg daily start 01/23.
[2018-01-22] MEDS: CMCS:Ranolazine (NF) 500 MG TAB PO SCH ×2 (12:17→21:27)
[2018-01-22] MEDS: Montelukast Sodium TAB* 10 MG PO SCH (12:17)
[2018-01-22] MEDS: HYDROcodone/ACETAMIN 5-325 MG* 1 TAB PO PRN ×2 (12:34→18:13)
[2018-01-22 13:41] LABS: ABS Basophils 0 10^3/ul (0-0.2); ABS Eosinophils 0.2 10^3/ul (0-0.6); ABS Monocytes 0.3 10^3/ul (0-0.8); ABS Neutrophils 3.8 10^3/ul (1.5-7.7); ABS Nucleated RBC 0 10^3/ul; Eosinophil % 3.5 % (0-6); Hematocrit 26 % (35-47); Hemoglobin 8.9 g/dl (12.0-16.0); Lymphocyte % 18.9 % (25-47); Mean Corpuscular HGB Conc 34 g/dl (31-36); Mean Corpuscular Hemoglobin 33 pg (27-31); Mean Corpuscular Volume 97 fL (80-97); Mean Platelet Volume 7.5 um3 (7.4-10.4); Nucleated Red Blood Cells % 0.1; Platelet Count 122 10^3/ul (150-450); Red Blood Count 2.69 10^6/ul (4.00-5.40); Red Cell Distribution Width 14 % (10.5-15); White Blood Count 5.3 10^3/ul (3.5-10.8)
[2018-01-22] MEDS: nitroGLYCERIN DRIP* 25,000 MCG/250 ML BTL IV ONE (14:24)
[2018-01-22] MEDS: nitroGLYCERIN DRIP* 25,000 MCG/250 ML BTL IV SCH (19:57)
[2018-01-22] MEDS: Amitriptyline TAB* 10 MG PO SCH (21:25)
[2018-01-22] MEDS: Famotidine TAB* 20 MG PO SCH (21:25)
[2018-01-22] MEDS: Pramipexole TAB* 0.5 MG PO SCH (21:26)
[2018-01-22] MEDS: Venlafaxine EXT RELEASE CAP* 37.5 MG PO SCH (21:28)
[2018-01-22] MEDS: Artificial Tears* 15 ML BTL BOTH EYES PRN (21:29)
[2018-01-22] MEDS: NS 0.9% 1000 ML* 1,000 ML IV SCH (21:31)
[2018-01-22] MEDS: Hydrocodone/Acetamin 10/325 1 TAB PO PRN (22:11)
[2018-01-22] MEDS: Fluticasone NASAL SPRAY 50MCG* 16 gm SPRAY BTL BOTH NARES SCH (22:11)
[2018-01-23] MEDS: nitroGLYCERIN DRIP* 25,000 MCG/250 ML BTL IV SCH ×2 (00:16→08:45)
[2018-01-23] MEDS: Hydrocodone/Acetamin 10/325 1 TAB PO PRN ×4 (03:25→21:08)
[2018-01-23] MEDS: Levothyroxine TAB* 100 MCG TAB PO SCH (05:09)
[2018-01-23] MEDS: Heparin VIAL(*) 5000 UNITS/ML VIAL (FIVE THOUSAND) SUBCUT SCH ×3 (05:09→21:09)
[2018-01-23 05:40] LABS: ABS Basophils 0 10^3/ul (0-0.2); ABS Eosinophils 0.2 10^3/ul (0-0.6); ABS Lymphocytes 1.4 10^3/ul (1.0-4.8); ABS Monocytes 0.4 10^3/ul (0-0.8); ABS Neutrophils 2.6 10^3/ul (1.5-7.7); ABS Nucleated RBC 0 10^3/ul; Eosinophil % 4.7 % (0-6); Hematocrit 25 % (35-47); Hemoglobin 8.4 g/dl (12.0-16.0); Lymphocyte % 30.4 % (25-47); Mean Corpuscular HGB Conc 34 g/dl (31-36); Mean Corpuscular Hemoglobin 33 pg (27-31); Mean Corpuscular Volume 96 fL (80-97); Mean Platelet Volume 7.2 um3 (7.4-10.4); Nucleated Red Blood Cells % 0.1; Platelet Count 177 10^3/ul (150-450); Red Blood Count 2.55 10^6/ul (4.00-5.40); Red Cell Distribution Width 13 % (10.5-15); White Blood Count 4.6 10^3/ul (3.5-10.8)
[2018-01-23 05:55] LABS: EGFR Non-African American 39.6 (>60)
[2018-01-23] MEDS: Mometasone/Formoter 200/5 MDI INH SCH ×2 (08:16→20:31)
[2018-01-23] MEDS: Omeprazole CAP* 20 MG PO SCH ×2 (08:56→17:25)
[2018-01-23] MEDS: amLODIPine TAB* 5 MG PO SCH (08:56)
[2018-01-23] MEDS: Metoprolol Tartrate TAB* 25 MG PO SCH ×3 (08:57→23:30)
[2018-01-23] MEDS: Cetirizine* 10 MG TAB PO SCH (08:57)
[2018-01-23] MEDS: Ticagrelor* 90 MG TAB PO SCH ×2 (08:57→21:07)
[2018-01-23] MEDS: Ferrous Sulfate TAB* 325 MG PO SCH (08:57)
[2018-01-23] MEDS: Ezetimibe TAB* 10 MG PO SCH (08:57)
[2018-01-23] MEDS: Montelukast Sodium TAB* 10 MG PO SCH (08:57)
[2018-01-23] MEDS: Aspirin EC TAB* 81 MG TAB.EC PO SCH (08:57)
[2018-01-23] MEDS: Cholecalciferol TAB* 1000 UNITS PO SCH (08:58)
[2018-01-23] MEDS: Docusate CAP* 100 MG PO SCH ×2 (08:58→21:09)
[2018-01-23] MEDS: Isosorbide Mononitrate ER TAB* 60 MG PO SCH (08:58)
[2018-01-23] MEDS: Amiodarone TAB* 200 MG PO SCH (09:00)
[2018-01-23] MEDS: Senna TAB PO SCH ×2 (09:06→21:09)
[2018-01-23] MEDS: CMCS:Ranolazine (NF) 500 MG TAB PO SCH ×2 (09:21→21:07)
[2018-01-23] MEDS: Fluticasone NASAL SPRAY 50MCG* 16 gm SPRAY BTL BOTH NARES SCH (09:24)
[2018-01-23] MEDS: NS 0.9% 1000 ML* 1,000 ML IV SCH ×2 (10:49→23:00)
[2018-01-23] MEDS ORDERED: fentaNYL* 50 MCG/ML 2 ML VIAL (100 MCG VIAL) ONE ×2 (12:45→14:21)
[2018-01-23] MEDS ORDERED: Midazolam* 1 MG/ML 10 ML VIAL (10 MG) ONE ×3 (12:45→16:02)
[2018-01-23] MEDS ORDERED: Heparin 2 UNITS/ML IVPREMIX* 3,000 ML IV ONE (13:37)
[2018-01-23] MEDS ORDERED: Lidocaine 1%* 5 ML VIAL ONE (13:38)
[2018-01-23] MEDS ORDERED: Iodixanol* (CONTRAST) 320 MG/ML 100 ML SDV ONE (13:38)
[2018-01-23] MEDS ORDERED: diPHENhydraMINE IV* 50 MG/ML 1 ml VIAL (BENADRYL) ONE (13:53)
[2018-01-23] MEDS ORDERED: methylPREDNISolone SOD 40 MG* 1 ML VIAL IV ONE (14:00)
[2018-01-23] MEDS ORDERED: nitroGLYCERIN DRIP* 25,000 MCG/250 ML BTL ONE ×2 (14:30→16:02)
[2018-01-23] MEDS ORDERED: hydrALAZINE IV* 20 MG/ML VIAL ONE ×2 (14:41→15:11)
[2018-01-23] MEDS ORDERED: Bivalirudin(*) 250 MG VIAL ONE (14:41)
--- NOTE | 2018-01-23 15:00 | CONS ---
CONSULTATION REPORT: DATE OF CONSULT: 01/23/18 REQUESTING PHYSICIAN: Dr. Marshall. INDICATION: Anemia, need for cardiac cath and anticoagulation. NARRATIVE: Ms. Martin is a 77-year-old morbidly obese female with a history of coronary artery dise ase, atrial fibrillation, who was admitted to the hospital with chest pain. She was scheduled to und ergo a cardiac catheterization yesterday; however, she was found to be more anemic than her normal an d an EGD was requested for risk stratification. The patient does have a history of peptic ulcer dise ase. She did have a prepyloric ulcer in September 2016. Three months later, a followup EGD did not revea l any ulceration. She had been on nonsteroidals at that time. She denies any abdominal pain. She d enies any black and tarry stools. PAST MEDICAL HISTORY: Please see the HPI. In addition, she has renal insufficiency, hypertension, A Fib, coronary artery disease, dyslipidemia, peptic ulcer disease. PAST SURGICAL HISTORY: Includes cholecystectomy, back surgery, hernia repair, knee surgery, carpal t unnel, hip replacement, appendectomy. MEDICATIONS: Upon admission include: 1. Amitriptyline. 2. Advair. 3. Torsemide. 4. Zetia. 5. Amlodipine. 6. Plavix. 7. Ranexa. 8. Levothyroxine. 9. Amiodarone. 10. Brilinta. 11. Aspirin. 12. Ranitidine. 13. Lisinopril. ALLERGIES: To STATINS, NAPROXEN, and NITROFURANTOIN. SOCIAL HISTORY: She is . She lives with her . No tobacco, alcohol, or IV drug use. PHYSICAL EXAM: Temperature 98.8, blood pressure is 154/72, pulse is 58, respiratory rate of 21, O2 s at is 97% on room air. General: Well-appearing elderly female, lying flat in bed, alert, oriented, pleasant, fluent. HEENT: Mucous membranes are moist without lesions, ulcers, or exudate. Neck: Sup ple. Trachea is midline. Head is normocephalic, atraumatic. Heart: Irregular rate and rhythm. Darron gs: Distant breath sounds bilaterally. Abdomen is obese. Positive bowel sounds. Soft, nontender, nondistended. No hepatosplenomegaly, masses, rebound, or guarding. Skin is warm and dry. LABORATORY DATA: Of note, white count is 4.6; hemoglobin is 8.4 down from 8.9, down from 10.1; plate let count of 177. INR is 0.92. Sodium is 134, creatinine is 1.3, BUN is 22. ASSESSMENT AND PLAN: This is a pleasant female who has had peptic ulcer disease in the past. She ne eds a cardiac cath with anticoagulation. Given her history of peptic ulcer disease in the past, card iology team has asked for an EGD for risk stratification. I will make arrangements for it in the tru y near future. [id number]/[facility] #: [id number]
[2018-01-23] MEDS ORDERED: niCARdipine 0.1MG/ML IVPREMIX* 20 MG/200 ML BAG ONE (15:16)
[2018-01-23] MEDS ORDERED: Nitroglycerin TAB 0.4 MG* 0.4 MG TAB SL PRN (15:32)
[2018-01-23] MEDS ORDERED: NS 0.9% 1000 ML* 1,000 ML IV ONE (15:32)
[2018-01-23] MEDS ORDERED: Midazolam* 1 MG/ML 2 ML VIAL (2 MG) ONE (17:35)
[2018-01-23 18:02] LABS: ABS Basophils 0 10^3/ul (0-0.2); ABS Eosinophils 0.1 10^3/ul (0-0.6); ABS Monocytes 0.2 10^3/ul (0-0.8); ABS Neutrophils 8.5 10^3/ul (1.5-7.7); ABS Nucleated RBC 0 10^3/ul; Eosinophil % 1.3 % (0-6); Hematocrit 29 % (35-47); Hemoglobin 9.8 g/dl (12.0-16.0); Lymphocyte % 10.2 % (25-47); Mean Corpuscular HGB Conc 34 g/dl (31-36); Mean Corpuscular Hemoglobin 33 pg (27-31); Mean Corpuscular Volume 95 fL (80-97); Mean Platelet Volume 7.2 um3 (7.4-10.4); Nucleated Red Blood Cells % 0; Platelet Count 214 10^3/ul (150-450); Red Cell Distribution Width 13 % (10.5-15); White Blood Count 9.8 10^3/ul (3.5-10.8)
--- NOTE | 2018-01-23 19:25 | PN ---
Subjective Date of Service: 01/23/18 Interval History: . patient in good spirits. s/p Cath with MARCOS to LCX today s/p EGD before that showing only polyp --> low risk for bleeding and cleared for dual antiplatelet therapy if needed. . Family History: Unchanged from Admission Social History: Unchanged from Admission Past Medical History: Unchanged from Admission Objective Active Medications: . Acetaminophen (Tylenol Tab*) 650 mg PO Q6HR PRN PRN Reason: PAIN Hydrocodone Bitart/Acetaminophen ([place] 10/325 (Nf)) 1 tab PO Q4H PRN PRN Reason: PAIN Last Admin: 01/23/18 17:23 Dose: 1 tab Albuterol (Ventolin 2.5 Mg/3 Ml Neb.Raiza*) 2.5 mg INH QID PRN PRN Reason: SHORTNESS OF BREATH Amiodarone HCl (Cordarone Tab*) 200 mg PO DAILY [facility] Last Admin: 01/23/18 09:00 Dose: 200 mg Amitriptyline HCl (Elavil Tab*) 10 mg PO BEDTIME [facility] Last Admin: 01/22/18 21:25 Dose: 10 mg Amlodipine Besylate (Norvasc Tab*) 10 mg PO DAILY [facility] Last Admin: 01/23/18 08:56 Dose: 10 mg Aspirin (Aspirin Ec Tab*) 81 mg PO DAILY [facility] Last Admin: 01/23/18 08:57 Dose: 81 mg Cetirizine HCl (Zyrtec*) 10 mg PO DAILY [facility] Last Admin: 01/23/18 08:57 Dose: 10 mg Cholecalciferol (Vitamin D Tab*) 1,000 units PO DAILY [facility] Last Admin: 01/23/18 08:58 Dose: 1,000 units Docusate Sodium (Colace Cap*) 200 mg PO BID [facility] Last Admin: 01/23/18 08:58 Dose: Not Given Ezetimibe (Zetia Tab*) 10 mg PO DAILY [facility] Last Admin: 01/23/18 08:57 Dose: 10 mg Famotidine (Pepcid Tab*) 20 mg PO BEDTIME [facility] Last Admin: 01/22/18 21:25 Dose: 20 mg Ferrous Sulfate (Ferrous Sulfate Tab*) 325 mg PO DAILY [facility] Last Admin: 01/23/18 08:57 Dose: 325 mg Fluticasone Propionate (Flonase Nasal [place] 50mcg*) 2 spray BOTH NARES DAILY [facility] Last Admin: 01/23/18 09:24 Dose: 2 spray Heparin Sodium (Porcine) (Heparin Vial(*)) 5,000 units SUBCUT Q8HR [facility] Last Admin: 01/23/18 14:22 Dose: Not Given Nitroglycerin/Dextrose (Nitroglycerin Drip*) 25,000 mcg in 250 mls @ 0 mls/hr IV .(Initial Rate) [facility]; Protocol Last Admin: 01/23/18 08:45 Dose: 36 mls/hr Sodium Chloride (Ns 0.9% 1000 Ml*) 1,000 mls @ 75 mls/hr IV .per rate [facility] Last Admin: 01/23/18 10:49 Dose: 75 mls/hr Sodium Chloride (Ns 0.9% 1000 Ml*) 1,000 mls @ 100 mls/hr IV .PER RATE ONE Stop: 01/24/18 01:31 Last Admin: 01/23/18 17:44 Dose: Not Given Isosorbide Mononitrate (Imdur Er Tab*) 120 mg PO DAILY [facility] Last Admin: 01/23/18 08:58 Dose: 120 mg Levothyroxine Sodium (Synthroid Tab*) 200 mcg PO DAILY@0600 [facility] Last Admin: 01/23/18 05:09 Dose: 200 mcg Metoprolol Tartrate (Lopressor Tab*) 25 mg PO Q8H [facility] Last Admin: 01/23/18 17:25 Dose: 25 mg Mometasone Furoate/Formoterol Fumar (Dulera 200/5 Mdi*) 2 puff INH BID [facility] Last Admin: 01/23/18 08:16 Dose: 2 puff Montelukast Sodium (Singulair Tab*) 10 mg PO DAILY [facility] Last Admin: 01/23/18 08:57 Dose: 10 mg Multi-Ingredient Liniment/Rub (Rafael Pinto*) 1 applic TOPICAL BID PRN PRN Reason: knee pain Nitroglycerin (Nitroglycerin Tab 0.4 Mg*) 0.4 mg SL Q5M PRN PRN Reason: ANGINA Omeprazole (Prilosec Cap*) 40 mg PO BID AC [facility] Last Admin: 01/23/18 17:25 Dose: 40 mg Polyvinyl Alcohol (Polyvinyl Alcohol 1.4% Opth*) 1 drop BOTH EYES Q2H PRN PRN Reason: DRY EYE Last Admin: 01/22/18 21:29 Dose: 1 drop Pramipexole Dihydrochloride (Mirapex Tab*) 2 mg PO BEDTIME [facility] Last Admin: 01/22/18 21:26 Dose: 2 mg Ranolazine (Ranexa (Nf)) 500 mg PO BID [facility]; Protocol Last Admin: 01/23/18 09:21 Dose: 500 mg Senna (Senokot Tab*) 1 tab PO BID [facility] Last Admin: 01/23/18 09:06 Dose: Not Given Ticagrelor (Brilinta*) 90 mg PO BID [facility] Last Admin: 01/23/18 08:57 Dose: 90 mg Venlafaxine HCl (Effexor Xr Cap*) 37.5 mg PO BEDTIME [facility] Last Admin: 01/22/18 21:28 Dose: 37.5 mg . Vital Signs - 8 hr 01/23/18 01/23/18 01/23/18 11:30 12:00 12:25 Temperature Pulse Rate 53 58 62 Respiratory 15 21 Rate Blood Pressure 163/76 154/72 164/74 (mmHg) O2 Sat by Pulse 96 97 97 Oximetry Oxygen Devices in Use Now: Nasal Cannula Appearance: NAD Eyes: No Scleral Icterus Ears/Nose/Mouth/Throat: Clear Oropharnyx Neck: NL Appearance and Movements; NL JVP Respiratory: Symmetrical Chest Expansion and Respiratory Effort Cardiovascular: NL Sounds; No Murmurs; No JVD Abdominal: NL Sounds; No Tenderness; No Distention Lymphatic: No Cervical Adenopathy Extremities: No Edema Skin: No Rash or Ulcers Neurological: Alert and Oriented x 3 Lines/Tubes/Other Access: Clean, Dry and Intact Peripheral IV Nutrition: Taking PO's Result Diagrams: 01/24/18 04:31 01/24/18 04:31 Microbiology and Other Data: Microbiology 01/21/18 05:15 Nasal Screen MRSA (PCR) - Final Nasal Mrsa Not Detected Assess/Plan/Problems-Billing . Assessment: 77 yo F with h/o CAD (99% stenosis RCA-managed medically in 2017), chronic angina, asthma (chronic hypoxemic respiratory failure on 02 at 2L), CKD stage 3 , paroxysmal A. fib, essential tremor who presents with CP increasing in frequency. was planned for outpatient cath on 01/22/18. EGD shows only a polyp --> low risk for bleed with DAPT. proceeded with cath --> MARCOS to LCX as per Dr. Herron. no complications. Current Medications: - Acetaminophen (Tylenol Tab*) 650 mg PO Q6HR PRN PAIN - Hydrocodone Bitart/Acetaminophen ([place] 10/325 (Nf)) 1 tab PO Q4H PRN PAIN - Amitriptyline HCl (Elavil Tab*) 10 mg PO BEDTIME - Venlafaxine HCl (Effexor Xr Cap*) 37.5 mg PO BEDTIME [facility] - Cholecalciferol (Vitamin D Tab*) 1,000 units PO DAILY - Famotidine (Pepcid Tab*) 20 mg PO BEDTIME - Omeprazole (Prilosec Cap*) 40 mg PO BID [facility] - Ferrous Sulfate (Ferrous Sulfate Tab*) 325 mg PO DAILY - Heparin Sodium (Porcine) (Heparin Vial(*)) 5,000 units SUBCUT Q8HR [facility] - Sodium Chloride (Ns 0.9% 1000 Ml*) 1,000 mls @ 75 mls/hr IV .per rate 75 mls/ hr - Isosorbide Mononitrate (Imdur Er Tab*) 120 mg PO DAILY - Ranolazine (Ranexa (Nf)) 500 mg PO BID [facility]; - Metoprolol Tartrate (Lopressor Tab*) 25 mg PO Q8H [facility] - Nitroglycerin (Nitroglycerin Tab 0.4 Mg*) 0.4 mg SL Q5M PRN ANGINA - Nitroglycerin/Dextrose (Nitroglycerin Drip*) 25,000 mcg in 250 mls @ 0 mls/ hr IV .(Initial Rate) [facility]; Protocol @ 36 mls/hr - now off - Ezetimibe (Zetia Tab*) 10 mg PO DAILY - Amlodipine Besylate (Norvasc Tab*) 10 mg PO DAILY - Aspirin (Aspirin Ec Tab*) 81 mg PO DAILY - Amiodarone HCl (Cordarone Tab*) 200 mg PO DAILY - Ticagrelor (Brilinta*) 90 mg PO BID [facility] - Levothyroxine Sodium (Synthroid Tab*) 200 mcg PO DAILY@0600 - Mometasone Furoate/Formoterol Fumar (Dulera 200/5 Mdi*) 2 puff INH BID [facility] - Montelukast Sodium (Singulair Tab*) 10 mg PO DAILY - Cetirizine HCl (Zyrtec*) 10 mg PO DAILY - Albuterol (Ventolin 2.5 Mg/3 Ml Neb.Raiza*) 2.5 mg INH QID PRN SHORTNESS OF BREATH - Fluticasone Propionate (Flonase Nasal [place] 50mcg*) 2 spray BOTH NARES DAILY - Multi-Ingredient Liniment/Rub (Rafael Pinto*) 1 applic TOPICAL BID PRN knee pain - Polyvinyl Alcohol (Polyvinyl Alcohol 1.4% Opth*) 1 drop BOTH EYES Q2H PRN DRY EYE - Pramipexole Dihydrochloride (Mirapex Tab*) 2 mg PO BEDTIME - Senna (Senokot Tab*) 1 tab PO BID [facility] - Docusate Sodium (Colace Cap*) 200 mg PO BID - Patient Problems (1) CAD (coronary artery disease) Current Visit: No Status: Chronic Priority: High Code(s): I25.10 - ATHSCL HEART DISEASE OF [place] CORONARY ARTERY W/O ANG PCTRS Comment: - MARCOS to LCX - continue current medications: - Isosorbide Mononitrate (Imdur Er Tab*) 120 mg PO DAILY - Ranolazine (Ranexa (Nf)) 500 mg PO BID [facility]; - Metoprolol Tartrate (Lopressor Tab*) 25 mg PO Q8H [facility] - Nitroglycerin (Nitroglycerin Tab 0.4 Mg*) 0.4 mg SL Q5M PRN ANGINA - Ezetimibe (Zetia Tab*) 10 mg PO DAILY - Amlodipine Besylate (Norvasc Tab*) 10 mg PO DAILY - Aspirin (Aspirin Ec Tab*) 81 mg PO DAILY - Amiodarone HCl (Cordarone Tab*) 200 mg PO DAILY - Ticagrelor (Brilinta*) 90 mg PO BID [facility] - Nitroglycerin/Dextrose (Nitroglycerin Drip*) 25,000 mcg in 250 mls @ 0 mls/ hr IV .(Initial Rate) [facility]; Protocol @ 36 mls/hr - now off (2) Atrial fibrillation Current Visit: No Status: Acute Priority: High Code(s): I48.91 - UNSPECIFIED ATRIAL FIBRILLATION SNOMED Code(s): 66557927 Comment: - s/p cardioversion 09/25/16 - in sinus on Amiodarone and low dose metoprolol. - no anticoagulation due to h/o PUD in 2017 (3) CKD (chronic kidney disease) Current Visit: No Status: Chronic Priority: High Code(s): N18.9 - CHRONIC KIDNEY DISEASE, UNSPECIFIED Comment: - Stage III, creat at baseline, (~ 1.3) (4) Gastric ulcer Current Visit: No Status: Chronic Code(s): K25.9 - GASTRIC ULCER, UNSP ACUTE OR CHRONIC, W/O HEMOR OR PERF Comment: - EGD does not show PUD - Continue H2B and PPI - OK for DAPT (5) Chronic hypoxemic respiratory failure Current Visit: Yes Status: Acute Comment: - on home 02 at 2L - Mometasone Furoate/Formoterol Fumar (Dulera 200/5 Mdi*) 2 puff INH BID [facility] - Montelukast Sodium (Singulair Tab*) 10 mg PO DAILY - Cetirizine HCl (Zyrtec*) 10 mg PO DAILY - Albuterol (Ventolin 2.5 Mg/3 Ml Neb.Raiza*) 2.5 mg INH QID PRN SHORTNESS OF BREATH - Fluticasone Propionate (Flonase Nasal [place] 50mcg*) 2 spray BOTH NARES DAILY (6) RLS (restless legs syndrome) Current Visit: No Status: Chronic Priority: High Comment: - Pramipexole Dihydrochloride (Mirapex Tab*) 2 mg PO BEDTIME
[2018-01-23] MEDS: Analgesic BALM* 114 GM TOPICAL PRN (21:04)
[2018-01-23] MEDS: Famotidine TAB* 20 MG PO SCH (21:07)
[2018-01-23] MEDS: Pramipexole TAB* 0.5 MG PO SCH (21:07)
[2018-01-23] MEDS: Venlafaxine EXT RELEASE CAP* 37.5 MG PO SCH (21:07)
[2018-01-23] MEDS: Amitriptyline TAB* 10 MG PO SCH (21:07)
[2018-01-23] MEDS: Artificial Tears* 15 ML BTL BOTH EYES PRN (21:09)
[2018-01-24] MEDS: Hydrocodone/Acetamin 10/325 1 TAB PO PRN ×6 (00:18→20:12)
--- NOTE | 2018-01-24 00:28 | PRO ---
CC: Dr. Villeda; Bennie Herron MD PROCEDURE REPORT: DATE OF PROCEDURE: 01/23/18 PROCEDURE PERFORMED: EGD. INDICATION: Pre-cath evaluation for bleeding, history of peptic ulcer disease. MEDICATIONS GIVEN: IV Versed 4 mg. No Demerol or fentanyl. PROCEDURE IN DETAIL: After the EGD procedure, including the risks, benefits, and alternatives, not l imited to perforation, surgery, and/or were explained to Ms. Martin, written consent was then obtained. IV medication was given and a bite block was placed between the teeth. An Olympus gastros cope was then inserted into the patient's mouth, advanced down the esophagus, into the stomach, and i nto the distal duodenum. In the esophagus at the GE junction, Z-line was intact. No erosive esophag itis, stricture, ring or ulceration was seen. The scope was advanced through the GE junction into th e body of the stomach. Retroflex view was unremarkable. Forward view did reveal a very small nodule . It did appear to be a polyp. It was in the fundus/body of the stomach. There was a mucosal break associated with it, but no bleeding was seen. I did take a very careful and thorough evaluation of the remainder of the stomach including the area where she had the prepyloric ulcer approximately a ye ar ago. No ulcers were seen. The scope was advanced through the pylorus, into the duodenal bulb and into the distal duodenum, both of which were unremarkable. Scope was then withdrawn from the patien t. She tolerated the procedure well and was returned to the care of the ICU staff. IMPRESSION: 1. Complete upper endoscopy into the distal duodenum. 2. Gastric polyp. 3. No ulcers were seen. I do believe she is low risk, not zero but low risk for bleeding from antic oagulation for her cath in just a few hours for now. This was conveyed to Dr. Bennie Herron, [facility]. [id number]/[facility] #: [id number]
[2018-01-24] MEDS: Levothyroxine TAB* 100 MCG TAB PO SCH (04:19)
[2018-01-24] MEDS: Heparin VIAL(*) 5000 UNITS/ML VIAL (FIVE THOUSAND) SUBCUT SCH ×2 (04:20→14:50)
[2018-01-24] MEDS: Artificial Tears* 15 ML BTL BOTH EYES PRN (04:21)
[2018-01-24 04:52] LABS: ABS Basophils 0 10^3/ul (0-0.2); ABS Eosinophils 0 10^3/ul (0-0.6); ABS Lymphocytes 0.9 10^3/ul (1.0-4.8); ABS Monocytes 0.4 10^3/ul (0-0.8); ABS Neutrophils 5.4 10^3/ul (1.5-7.7); ABS Nucleated RBC 0 10^3/ul; Eosinophil % 0.3 % (0-6); Hematocrit 18 % (35-47); Hemoglobin 6.1 g/dl (12.0-16.0); Lymphocyte % 12.8 % (25-47); Mean Corpuscular HGB Conc 34 g/dl (31-36); Mean Corpuscular Hemoglobin 33 pg (27-31); Mean Corpuscular Volume 96 fL (80-97); Mean Platelet Volume 7.2 um3 (7.4-10.4); Nucleated Red Blood Cells % 0; Platelet Count 189 10^3/ul (150-450); Red Blood Count 1.86 10^6/ul (4.00-5.40); Red Cell Distribution Width 13 % (10.5-15); White Blood Count 6.7 10^3/ul (3.5-10.8)
[2018-01-24 04:58] LABS: EGFR Non-African American 38.9 (>60)
[2018-01-24] MEDS: amLODIPine TAB* 5 MG PO SCH ×2 (06:48→11:11)
[2018-01-24] MEDS: Analgesic BALM* 114 GM TOPICAL PRN (06:51)
[2018-01-24] MEDS: Mometasone/Formoter 200/5 MDI INH SCH ×2 (07:41→20:40)
[2018-01-24] MEDS: Omeprazole CAP* 20 MG PO SCH ×2 (07:55→16:54)
[2018-01-24] MEDS ORDERED: diPHENhydraMINE IV* 50 MG/ML 1 ml VIAL (BENADRYL) ONE (08:21)
[2018-01-24] MEDS ORDERED: diPHENhydraMINE IV* 50 MG/ML 1 ml VIAL (BENADRYL) IV ONE (09:00)
[2018-01-24] MEDS ORDERED: Iodixanol* (CONTRAST) 320 MG/ML 100 ML SDV IV ONE (09:11)
--- NOTE | 2018-01-24 09:17 | RAD ---
INDICATION: Status post catheterization, hematoma evaluate for pseudoaneurysm. COMPARISON: Comparison is made with a prior CT of the abdomen and pelvis was performed without contrast. TECHNIQUE: Multiple real-time, color flow and Doppler tracings of the right inguinal region were obtained. FINDINGS: The exam is limited due to swelling and the patient's body habitus. The vessels are not visible in grayscale and are only seen on color Doppler imaging. There is a slightly prominent structure arising from the common femoral vein possibly representing the superficial femoral artery although a pseudoaneurysm cannot be excluded. IMPRESSION: LIMITED NONDIAGNOSTIC STUDY. RECOMMEND A CT ANGIOGRAM OF THE PELVIS AND THIGH FOR FURTHER EVALUATION.
[2018-01-24] MEDS: Cholecalciferol TAB* 1000 UNITS PO SCH (10:03)
[2018-01-24] MEDS: Docusate CAP* 100 MG PO SCH ×2 (10:04→22:50)
[2018-01-24] MEDS: Amiodarone TAB* 200 MG PO SCH (10:04)
[2018-01-24] MEDS: Aspirin EC TAB* 81 MG TAB.EC PO SCH (10:04)
[2018-01-24] MEDS: Montelukast Sodium TAB* 10 MG PO SCH (10:05)
[2018-01-24] MEDS: Ferrous Sulfate TAB* 325 MG PO SCH (10:08)
[2018-01-24] MEDS: Ticagrelor* 90 MG TAB PO SCH ×2 (10:08→22:51)
[2018-01-24] MEDS: Cetirizine* 10 MG TAB PO SCH (10:08)
[2018-01-24] MEDS: Metoprolol Tartrate TAB* 25 MG PO SCH ×2 (10:08→16:54)
[2018-01-24] MEDS: Ezetimibe TAB* 10 MG PO SCH (10:08)
[2018-01-24] MEDS: Senna TAB PO SCH ×2 (10:09→22:51)
[2018-01-24] MEDS: Isosorbide Mononitrate ER TAB* 60 MG PO SCH (10:09)
--- NOTE | 2018-01-24 10:11 | RAD ---
INDICATION: Right inguinal hernia status post catheterization evaluate for pseudoaneurysm. COMPARISON: Comparison is made with a prior CT of the abdomen and pelvis without contrast of the same date. TECHNIQUE: A CT of the abdomen and pelvis was performed without contrast followed by a CT angiogram of the abdomen and pelvis and thighs was performed with intravenous contrast following intravenous injection of 125 ml of Visipaque 320 nonionic contrast. Contiguous axial sections were obtained from the lung bases through the ankles. Images were reconstructed in the coronal and sagittal planes and in a 3-D volume rendered reformatted. FINDINGS: CT OF THE ABDOMEN AND PELVIS: There is mild atelectasis at both lung bases. No pleural effusion is seen. The liver appears mildly enlarged without significant focal abnormality. The patient is status post cholecystectomy. The spleen and pancreas appear to be within normal limits. The kidneys and adrenal glands are normal in size. No hydronephrosis is seen. No significant enlarged retroperitoneal lymph nodes are seen. The stomach, small and large bowel appear nondistended. There is mild diverticulosis in the descending and sigmoid colon. No free intraperitoneal air or fluid is seen. The bones appear osteopenic. The patient is status post fusion of the lower dorsal and lumbar spine with pedicle screws and posterior metallic rods. The patient is at also status post total bilateral hip replacement surgery. CT ANGIOGRAM OF THE ABDOMINAL AORTA: The abdominal aorta is normal in caliber. There is mild calcific plaque present. No focal stenosis is seen. The celiac and superior mesenteric arteries appear patent. There is moderate plaque at the origin of the superior mesenteric artery. The inferior mesenteric artery also appears patent. There are single bilateral renal arteries which appear widely patent. There is a large hematoma in the medial right thigh measuring 11.4 x 4.5 x 10.0 cm in size. There is a second less well-defined component located more superior in the anterior lateral pelvic wall on the right side measuring approximately 8.8 x 6.8 x 6.6 cm. The common and external iliac arteries appear widely patent. Evaluation of the common femoral and proximal superficial femoral arteries are limited secondary to artifact from the hip replacement surgeries, swelling and hematoma on the right side. The common femoral superficial and profunda femoral arteries appear patent. There is moderate calcific plaque present. No pseudoaneurysm is seen. IMPRESSION: 1. LIMITED STUDY DUE TO METALLIC ARTIFACT FROM HIP PROSTHESES, NO EVIDENCE FOR PSEUDOANEURYSM. 2. LARGE RIGHT THIGH AND ANTERIOR PELVIC WALL HEMATOMAS.
--- NOTE | 2018-01-24 10:19 | RAD ---
INDICATION: Status post cardiac catheterization, right thigh hematoma evaluate for retroperitoneal hemorrhage. COMPARISON: Correlation is made with a prior CT of the abdomen and pelvis from April 24, 2009. TECHNIQUE: A CT scan of the abdomen and pelvis was performed without intravenous and without oral contrast. Contiguous axial sections were obtained from the lung bases through the symphysis pubis. Images were reconstructed in the coronal and sagittal planes. FINDINGS: There is mild subsegmental atelectasis at both lung bases. No pleural effusion is present. The liver appears mildly enlarged without focal abnormality on this noncontrast study. The patient is status post cholecystectomy. The spleen and pancreas appear to be within normal limits. The adrenal glands and kidneys appear within normal limits in size. There is contrast present within the kidneys from the patient's coronary angiogram. No hydronephrosis is seen. The aorta is normal in caliber with moderate calcific plaque present. No significant enlarged retroperitoneal lymph nodes are seen. The stomach, small and large bowel appear nondistended. There is mild descending and sigmoid diverticulosis without evidence for diverticulitis. No free intraperitoneal air or fluid is seen. There is a large hematoma present in the medial right thigh measuring approximately 11.4 x 4.9 x 10.0 cm. There is a second less well-defined component located more superior in the anterolateral pelvic wall measuring 8.8 x 6.0 x 6.8 cm. No retroperitoneal hemorrhage is seen. The bones appear osteopenic. The patient is status post posterior spinal fusion of the lower dorsal and lumbar spine with pedicle screws and metallic rods. The patient is also status post total bilateral hip replacement surgeries. IMPRESSION: LARGE RIGHT THIGH AND ANTERIOR PELVIC WALL HEMATOMAS DESCRIBED. NO EXTENSION INTO THE RETROPERITONEUM.
[2018-01-24] MEDS: CMCS:Ranolazine (NF) 500 MG TAB PO SCH ×2 (11:41→22:51)
[2018-01-24] MEDS: Fluticasone NASAL SPRAY 50MCG* 16 gm SPRAY BTL BOTH NARES SCH (11:42)
--- NOTE | 2018-01-24 12:55 | CATH ---
CC: Dr. Manas Villeda; Dr. You Delgado * CARDIAC CATHETERIZATION AND INTERVENTIONAL REPORT: DATE OF PROCEDURE: 01/23/18 INDICATION FOR THE PROCEDURE: The patient with acute coronary syndrome, non-ST elevation myocardial infarction with history of known coronary artery disease, assessed for progression in coronary artery disease. PROCEDURE: Coronary arteriography, balloon angioplasty and placement of a 3.0 x 20 mm long Synergy drug-eluting stent post dilated at 3.2 mm. PREPROCEDURE LABS: Hemoglobin, hematocrit was 8.4 and 25, platelet count was 177,000. Glucose 145, BUN 22, creatinine 1.3, sodium 134, potassium 4.5, chloride 102, bicarb 28. EQUIPMENT UTILIZED: 1. Right femoral artery diagnostic sheath a 5-[place] A[employer] sheath, diagnostic catheters were FL4 and FR4 curve 5-[place] catheters. 2. The interventional sheath was a 6.5-[place] [employer] Prelude sheath. 3. Interventional guide catheter was a 6-[place] VL 3.5 curve guide catheter. 4. Interventional wire was a 190 length BMW guidewire. 5. Pre-dilatation balloon inflation catheter with a 3.0 x 12 mm long NC Emerge balloon. The stent placed was 3.0 x 12 mm long Synergy drug-eluting stent. 6. The right groin closure device attempted was an Angio-Seal 6-[place]. MEDICATIONS GIVEN DURING THE PROCEDURE: Included: 1. Continuation of an IV nitroglycerin drip that she was on. 2. She got 40 mg Solu-Medrol IV. 3. Benadryl 12.5 mg IV. 4. Versed as needed for sedation. 5. Angiomax bolus and Angiomax drip. 6. She got Apresoline boluses IV in addition to Cardene boluses IV for hypertension. DESCRIPTION OF PROCEDURE: The patient was brought into the cardiovascular laboratory where a formal time-out was performed. She was prepped and draped in a sterile fashion. It should be noted that the right radial artery was assessed by ultrasound prior to the procedure and found to be less than 2 mm in diameter and as such the decision was made to proceed from the femoral approach. After being prepped and draped in sterile fashion, the right femoral artery area was anesthetized with 1% lidocaine. Right femoral was cannulated and the diagnostic introducer was placed. Coronary arteriography was performed. Following this, the decision was made to intervene in the proximal circumflex. The diagnostic sheath was exchanged for the interventional sheath. Initial guiding catheter utilized was a VL 3.0. Guidewire was passed. Of note, attempts were initially made to primary stent. This was unsuccessful. Both Guidezilla and GuideLiner were attempted and was not able to be delivered well to the area through the guiding catheter. At that point, the VL 3.5 curve guide catheter was utilized for better support. Balloon angioplasty was performed utilizing the NC Emerge balloon followed by stent placement. Post dilatations were made with the 3.0 x 12 mm long NC Emerge balloon to obtain a 3.2 mm diameter. Result was then assessed in multiple views. Following this, an injection was made into the right femoral sheath to assess eligibility to utilize closure device. Decision was made to try to deploy an Angio- Seal closure device. Of note, this was deployed, but was unsuccessful in sealing the artery and as such manual pressure was utilized in the ballistics laboratory gunsmith for approximately an hour. Following this, a sandbag was placed and the patient was transported to the intensive care unit. The total contrast used was 180 cc of Visipaque dye. The radiation exposure included 12.4 minutes of fluoro time. The air kerma radiation was 1939 milligray. The DAP radiation was 11,721 microgray/m2. RESULTS: CORONARY ARTERIOGRAPHY: A: Left coronary artery: 1. Left main - short in nature. No significant stenosis was seen. 2. Left anterior descending artery. The left anterior descending artery had calcification seen in its proximal and mid segment. The mid segment of the artery appeared to have narrowing as much as 55% to 60%. Of note, this was in the worst view and some of this clearly may have been secondary to the calcium not allowing to see full contrast. In other angles, it appeared to be not as severe. The LAD supplied the apical region onto the distal inferior wall. The first diagonal branch was a large caliber vessel, which had mild disease within it, but no critical stenosis. 3. Circumflex artery - a nondominant vessel supplying a small first and second obtuse marginal branch with slightly larger third and a more dominant low -lying obtuse marginal branch to the inferior low posterior apical region. The proximal portion of the circumflex had an area of luminal reduction of approximately 40%. Past this point was a dissected area focal in nature with a stenosis that appeared to be 85% to 90% hazy in nature suggesting an acute lesion. Past this point in between the second to last and the last obtuse marginal branch was an area of diffuse disease noted to be eccentric in nature appearing as much as 60% in its worst view. B. Right coronary artery - totally occluded at its ostium with filling of only high acute marginal branch. Collateral blood flow was seen to the right coronary artery extends of the nature through the left coronary artery system. There was retrograde filling up the right coronary artery to the proximal area. INTERVENTION INTO CIRCUMFLEX ARTERY: Successful reduction of critical 85% to 90% ulcerated-appearing lesion with balloon angioplasty and placement of a 3.0 x 12 mm long Synergy drug-eluting stent post dilated to 3.2 mm with YURI 3 flow 0% residual stenosis and no dissection seen. OVERALL ASSESSMENT: The patient will need to be maintained on dual antiplatelet therapy for ideally a minimum of 1 years' time after the DAPT score can be evaluated to decide on how long continuation dual antiplatelet therapy would be treated. It should be noted that Dr. Chen from Gastroenterology saw the patient the day of catheterization and performed endoscopy to make there were no significant lesions that would be concerning for dual antiplatelet therapy. He felt that there was nothing that would necessitate for the patient to have avoidance of dual antiplatelet therapy. That information was utilized in our decision to proceed. Continued aggressive risk factor management will be pursued for her primary animal care assistant, Dr. You Delgado. [id number]/[facility] #: [id number] [facility] HOSPITALIvanna
--- NOTE | 2018-01-24 14:56 | OP ---
Operative Report - Blank - Operative Report Date of Operation: 01/24/18 Note: Central Venous Catheter (CVC, Central Line) Placement Date: <01/24/18> Time: <3:00PM> Indication: Hemodynamic monitoring/Intravenous access Attending: Graciela Russo time-out was completed verifying correct patient, procedure, site, positioning , and special equipment if applicable. The patient was placed in a dependent position appropriate for central line placement based on the vein to be cannulated. The patients left neck was prepped and draped in sterile fashion. 1 % Lidocaine was used to anesthetize the surrounding skin area. A triple lumen 7 [place]an catheter was introduced into the the internal jugular using the Seldinger technique and under ultrasound guidance. The catheter was threaded smoothly over the guide wire and appropriate blood return was obtained. Each lumen of the catheter was evacuated of air and flushed with sterile saline. The catheter was then sutured in place to the skin and a sterile dressing applied. Estimated Blood Loss: None The patient tolerated the procedure well and there were no complications. CXR was ordered to confirm placement
--- NOTE | 2018-01-24 15:02 | PN ---
Subjective Date of Service: 01/24/18 Interval History: . events noted overnight; hematoma x 2 U/S --> no pseudoaneurysm. CTA with runoff: no pseudoaneurysm, but large anterior thigh and R groin hematomas. receiving 2 units prbc...recheck Hgb after finished and reassess... patient in good spirits - no CP, SOB. staying flat to avoid further hemorrhage Family History: Unchanged from Admission Social History: Unchanged from Admission Past Medical History: Unchanged from Admission Objective Active Medications: . Acetaminophen (Tylenol Tab*) 650 mg PO Q6HR PRN PRN Reason: PAIN Hydrocodone Bitart/Acetaminophen ([place] 10/325 (Nf)) 1 tab PO Q4H PRN PRN Reason: PAIN Last Admin: 01/24/18 11:50 Dose: 1 tab Albuterol (Ventolin 2.5 Mg/3 Ml Neb.Raiza*) 2.5 mg INH QID PRN PRN Reason: SHORTNESS OF BREATH Amiodarone HCl (Cordarone Tab*) 200 mg PO DAILY [facility] Last Admin: 01/24/18 10:04 Dose: 200 mg Amitriptyline HCl (Elavil Tab*) 10 mg PO BEDTIME [facility] Last Admin: 01/23/18 21:07 Dose: 10 mg Amlodipine Besylate (Norvasc Tab*) 10 mg PO DAILY [facility] Last Admin: 01/24/18 11:11 Dose: Not Given Aspirin (Aspirin Ec Tab*) 81 mg PO DAILY [facility] Last Admin: 01/24/18 10:04 Dose: 81 mg Cetirizine HCl (Zyrtec*) 10 mg PO DAILY [facility] Last Admin: 01/24/18 10:08 Dose: 10 mg Cholecalciferol (Vitamin D Tab*) 1,000 units PO DAILY [facility] Last Admin: 01/24/18 10:03 Dose: 1,000 units Docusate Sodium (Colace Cap*) 200 mg PO BID [facility] Last Admin: 01/24/18 10:04 Dose: 200 mg Ezetimibe (Zetia Tab*) 10 mg PO DAILY [facility] Last Admin: 01/24/18 10:08 Dose: 10 mg Famotidine (Pepcid Tab*) 20 mg PO BEDTIME [facility] Last Admin: 01/23/18 21:07 Dose: 20 mg Ferrous Sulfate (Ferrous Sulfate Tab*) 325 mg PO DAILY [facility] Last Admin: 01/24/18 10:08 Dose: 325 mg Fluticasone Propionate (Flonase Nasal [place] 50mcg*) 2 spray BOTH NARES DAILY [facility] Last Admin: 01/24/18 11:42 Dose: 2 spray Heparin Sodium (Porcine) (Heparin Vial(*)) 5,000 units SUBCUT Q8HR [facility] Last Admin: 01/24/18 14:50 Dose: Not Given Nitroglycerin/Dextrose (Nitroglycerin Drip*) 25,000 mcg in 250 mls @ 0 mls/hr IV .(Initial Rate) [facility]; Protocol Last Admin: 01/23/18 08:45 Dose: 36 mls/hr Sodium Chloride (Ns 0.9% 1000 Ml*) 1,000 mls @ 75 mls/hr IV .per rate [facility] Last Admin: 01/23/18 23:00 Dose: 75 mls/hr Isosorbide Mononitrate (Imdur Er Tab*) 120 mg PO DAILY [facility] Last Admin: 01/24/18 10:09 Dose: 120 mg Levothyroxine Sodium (Synthroid Tab*) 200 mcg PO DAILY@0600 [facility] Last Admin: 01/24/18 04:19 Dose: 200 mcg Metoprolol Tartrate (Lopressor Tab*) 25 mg PO Q8H [facility] Last Admin: 01/24/18 10:08 Dose: 25 mg Mometasone Furoate/Formoterol Fumar (Dulera 200/5 Mdi*) 2 puff INH BID [facility] Last Admin: 01/24/18 07:41 Dose: 2 puff Montelukast Sodium (Singulair Tab*) 10 mg PO DAILY [facility] Last Admin: 01/24/18 10:05 Dose: 10 mg Multi-Ingredient Liniment/Rub (Rafael Pinto*) 1 applic TOPICAL BID PRN PRN Reason: knee pain Last Admin: 01/24/18 06:51 Dose: 1 applic Nitroglycerin (Nitroglycerin Tab 0.4 Mg*) 0.4 mg SL Q5M PRN PRN Reason: ANGINA Last Admin: 01/24/18 09:10 Dose: 0.4 mg Omeprazole (Prilosec Cap*) 40 mg PO BID AC [facility] Last Admin: 01/24/18 07:55 Dose: 40 mg Polyvinyl Alcohol (Polyvinyl Alcohol 1.4% Opth*) 1 drop BOTH EYES Q2H PRN PRN Reason: DRY EYE Last Admin: 01/24/18 04:21 Dose: 1 drop Pramipexole Dihydrochloride (Mirapex Tab*) 2 mg PO BEDTIME [facility] Last Admin: 01/23/18 21:07 Dose: 2 mg Ranolazine (Ranexa (Nf)) 500 mg PO BID [facility]; Protocol Last Admin: 01/24/18 11:41 Dose: 500 mg Senna (Senokot Tab*) 1 tab PO BID [facility] Last Admin: 01/24/18 10:09 Dose: 1 tab Ticagrelor (Brilinta*) 90 mg PO BID [facility] Last Admin: 01/24/18 10:08 Dose: 90 mg Venlafaxine HCl (Effexor Xr Cap*) 37.5 mg PO BEDTIME [facility] Last Admin: 01/23/18 21:07 Dose: 37.5 mg . Vital Signs - 8 hr 01/24/18 01/24/18 01/24/18 07:00 07:01 07:31 Temperature Pulse Rate 59 60 60 Respiratory 14 16 23 Rate Blood Pressure 135/84 140/54 (mmHg) O2 Sat by Pulse 100 99 100 Oximetry 01/24/18 01/24/18 01/24/18 08:00 08:01 09:00 Temperature 98.4 F Pulse Rate 64 63 Respiratory 14 18 14 Rate Blood Pressure 136/73 (mmHg) O2 Sat by Pulse 100 99 Oximetry Oxygen Devices in Use Now: Nasal Cannula Appearance: NAD Eyes: No Scleral Icterus Ears/Nose/Mouth/Throat: Clear Oropharnyx Neck: NL Appearance and Movements; NL JVP Respiratory: Symmetrical Chest Expansion and Respiratory Effort Cardiovascular: NL Sounds; No Murmurs; No JVD Abdominal: NL Sounds; No Tenderness; No Distention, - - R groin hematoma Lymphatic: No Cervical Adenopathy Extremities: No Edema Skin: No Rash or Ulcers Neurological: Alert and Oriented x 3 Lines/Tubes/Other Access: Clean, Dry and Intact Peripheral IV, Clean, Dry and Intact Central Line - being placed by patient access director in R IJ site. Nutrition: Taking PO's Result Diagrams: 01/25/18 05:49 01/25/18 05:49 Microbiology and Other Data: Microbiology 01/21/18 05:15 Nasal Screen MRSA (PCR) - Final Nasal Mrsa Not Detected Assess/Plan/Problems-Billing . Assessment: 77 yo F with h/o CAD (99% stenosis RCA-managed medically in 2017), chronic angina, asthma (chronic hypoxemic respiratory failure on 02 at 2L), CKD stage 3 , paroxysmal A. fib, essential tremor who presents with CP increasing in frequency. was planned for outpatient cath on 01/22/18. EGD shows only a polyp --> low risk for bleed with DAPT. Proceeded with cath --> MARCOS to LCX as per Dr. Herron. Post-cath complicated by large R groin and anterior thigh hematoma. No complications. Current Medications: - Acetaminophen (Tylenol Tab*) 650 mg PO Q6HR PRN PAIN - Hydrocodone Bitart/Acetaminophen ([place] 10/325 (Nf)) 1 tab PO Q4H PRN PAIN - Amitriptyline HCl (Elavil Tab*) 10 mg PO BEDTIME - Venlafaxine HCl (Effexor Xr Cap*) 37.5 mg PO BEDTIME [facility] - Cholecalciferol (Vitamin D Tab*) 1,000 units PO DAILY - Famotidine (Pepcid Tab*) 20 mg PO BEDTIME - Omeprazole (Prilosec Cap*) 40 mg PO BID AC - Ferrous Sulfate (Ferrous Sulfate Tab*) 325 mg PO DAILY - Heparin Sodium (Porcine) (Heparin Vial(*)) 5,000 units SUBCUT Q8HR [facility] - Sodium Chloride (Ns 0.9% 1000 Ml*) 1,000 mls @ 75 mls/hr IV .per rate 75 mls/ hr - Isosorbide Mononitrate (Imdur Er Tab*) 120 mg PO DAILY - Ranolazine (Ranexa (Nf)) 500 mg PO BID [facility]; - Metoprolol Tartrate (Lopressor Tab*) 25 mg PO Q8H [facility] - Nitroglycerin (Nitroglycerin Tab 0.4 Mg*) 0.4 mg SL Q5M PRN ANGINA - Nitroglycerin/Dextrose (Nitroglycerin Drip*) 25,000 mcg in 250 mls @ 0 mls/ hr IV .(Initial Rate) [facility]; Protocol @ 36 mls/hr - now off - Ezetimibe (Zetia Tab*) 10 mg PO DAILY - Amlodipine Besylate (Norvasc Tab*) 10 mg PO DAILY - Aspirin (Aspirin Ec Tab*) 81 mg PO DAILY - Amiodarone HCl (Cordarone Tab*) 200 mg PO DAILY - Ticagrelor (Brilinta*) 90 mg PO BID [facility] - Levothyroxine Sodium (Synthroid Tab*) 200 mcg PO DAILY@0600 - Mometasone Furoate/Formoterol Fumar (Dulera 200/5 Mdi*) 2 puff INH BID [facility] - Montelukast Sodium (Singulair Tab*) 10 mg PO DAILY - Cetirizine HCl (Zyrtec*) 10 mg PO DAILY - Albuterol (Ventolin 2.5 Mg/3 Ml Neb.Raiza*) 2.5 mg INH QID PRN SHORTNESS OF BREATH - Fluticasone Propionate (Flonase Nasal [place] 50mcg*) 2 spray BOTH NARES DAILY - Multi-Ingredient Liniment/Rub (Rafael Pinto*) 1 applic TOPICAL BID PRN knee pain - Polyvinyl Alcohol (Polyvinyl Alcohol 1.4% Opth*) 1 drop BOTH EYES Q2H PRN DRY EYE - Pramipexole Dihydrochloride (Mirapex Tab*) 2 mg PO BEDTIME - Senna (Senokot Tab*) 1 tab PO BID [facility] - Docusate Sodium (Colace Cap*) 200 mg PO BID - Patient Problems (1) CAD (coronary artery disease) Current Visit: No Status: Chronic Priority: High Code(s): I25.10 - ATHSCL HEART DISEASE OF [place] CORONARY ARTERY W/O ANG PCTRS Comment: - MARCOS to LCX - Continue current medications: - Isosorbide Mononitrate (Imdur Er Tab*) 120 mg PO DAILY - Ranolazine (Ranexa (Nf)) 500 mg PO BID [facility]; - Metoprolol Tartrate (Lopressor Tab*) 25 mg PO Q8H [facility] - Nitroglycerin (Nitroglycerin Tab 0.4 Mg*) 0.4 mg SL Q5M PRN ANGINA - Ezetimibe (Zetia Tab*) 10 mg PO DAILY - Amlodipine Besylate (Norvasc Tab*) 10 mg PO DAILY - Aspirin (Aspirin Ec Tab*) 81 mg PO DAILY - Amiodarone HCl (Cordarone Tab*) 200 mg PO DAILY - Ticagrelor (Brilinta*) 90 mg PO BID [facility] - Nitroglycerin/Dextrose (Nitroglycerin Drip*) 25,000 mcg in 250 mls @ 0 mls/ hr IV .(Initial Rate) [facility]; Protocol @ 36 mls/hr - now off (2) Atrial fibrillation Current Visit: No Status: Acute Priority: High Code(s): I48.91 - UNSPECIFIED ATRIAL FIBRILLATION SNOMED Code(s): 33227968 Comment: - s/p cardioversion 09/25/16 - in sinus on Amiodarone and low dose metoprolol. - no anticoagulation due to h/o PUD in 2017 (3) CKD (chronic kidney disease) Current Visit: No Status: Chronic Priority: High Code(s): N18.9 - CHRONIC KIDNEY DISEASE, UNSPECIFIED Comment: - Stage III, creat at baseline, (~ 1.3) (4) Gastric ulcer Current Visit: No Status: Chronic Code(s): K25.9 - GASTRIC ULCER, UNSP ACUTE OR CHRONIC, W/O HEMOR OR PERF Comment: - EGD does not show PUD - Continue H2B and PPI - OK for DAPT (5) Chronic hypoxemic respiratory failure Current Visit: Yes Status: Acute Comment: - on home 02 at 2L - Mometasone Furoate/Formoterol Fumar (Dulera 200/5 Mdi*) 2 puff INH BID [facility] - Montelukast Sodium (Singulair Tab*) 10 mg PO DAILY - Cetirizine HCl (Zyrtec*) 10 mg PO DAILY - Albuterol (Ventolin 2.5 Mg/3 Ml Neb.Raiza*) 2.5 mg INH QID PRN SHORTNESS OF BREATH - Fluticasone Propionate (Flonase Nasal [place] 50mcg*) 2 spray BOTH NARES DAILY (6) RLS (restless legs syndrome) Current Visit: No Status: Chronic Priority: High Comment: - Pramipexole Dihydrochloride (Mirapex Tab*) 2 mg PO BEDTIME
[2018-01-24] MEDS ORDERED: NS 0.9% 500 ML* 500 ML IV ONE (15:12)
--- NOTE | 2018-01-24 15:52 | RAD ---
INDICATION: Central line placement. COMPARISON: Comparison is made with prior chest x-ray study from January 21, 2018. TECHNIQUE: A portable view of the chest was obtained. FINDINGS: The heart appears mildly enlarged and unchanged. There is a central venous line entering from the left jugular approach which projects over the superior mediastinum and appears coiled recommend repositioning. The lungs are clear. No pleural effusion is seen. There has been interval resolution of the previous seen noted congestive heart failure changes. The results of this exam were called to the referring clinician. IMPRESSION: THE CENTRAL VENOUS CATHETER PROJECTS OVER THE UPPER MEDIASTINUM AND APPEARS COILED. RECOMMEND REPOSITIONING THE CATHETER.
--- NOTE | 2018-01-24 16:53 | RAD ---
INDICATION: Central line placement reposition. COMPARISON: Comparison is made with a prior study of the same date from approximately one hour earlier. TECHNIQUE: A single portable supine film of the chest was obtained. FINDINGS: The heart is enlarged and unchanged from the prior exam. There is a central venous catheter entering from the left jugular approach demonstrating normal course. The catheter tip projects at the junction of the superior vena cava and right atrium. The lungs are clear. No pleural effusion is present. IMPRESSION: STATUS POST CENTRAL VENOUS CATHETER PLACEMENT, NO EVIDENCE FOR ACUTE FINDING.
--- NOTE | 2018-01-24 17:03 | PN ---
Progress Note - Progress Note Date of Service: 01/24/18 Note: Called by radiology that TLC was coiled in the left IJ. Under sterile conditions I replaced the catheter over a wire. Repeat chest xray shows appropriate placement.
[2018-01-24 18:27] LABS: ABS Basophils 0.1 10^3/ul (0-0.2); ABS Eosinophils 0.3 10^3/ul (0-0.6); ABS Lymphocytes 1.7 10^3/ul (1.0-4.8); ABS Monocytes 0.8 10^3/ul (0-0.8); ABS Neutrophils 5.6 10^3/ul (1.5-7.7); ABS Nucleated RBC 0 10^3/ul; Eosinophil % 3.3 % (0-6); Hematocrit 23 % (35-47); Hemoglobin 7.8 g/dl (12.0-16.0); Lymphocyte % 20.5 % (25-47); Mean Corpuscular HGB Conc 34 g/dl (31-36); Mean Corpuscular Hemoglobin 32 pg (27-31); Mean Corpuscular Volume 92 fL (80-97); Mean Platelet Volume 7.1 um3 (7.4-10.4); Nucleated Red Blood Cells % 0; Platelet Count 165 10^3/ul (150-450); Red Blood Count 2.48 10^6/ul (4.00-5.40); Red Cell Distribution Width 15 % (10.5-15); White Blood Count 8.5 10^3/ul (3.5-10.8)
[2018-01-24] MEDS: Amitriptyline TAB* 10 MG PO SCH (22:50)
[2018-01-24] MEDS: Venlafaxine EXT RELEASE CAP* 37.5 MG PO SCH (22:51)
[2018-01-24] MEDS: Famotidine TAB* 20 MG PO SCH (22:51)
[2018-01-24] MEDS: Pramipexole TAB* 0.5 MG PO SCH (22:51)
[2018-01-25] MEDS: Hydrocodone/Acetamin 10/325 1 TAB PO PRN ×5 (00:02→20:53)
[2018-01-25] MEDS: Analgesic BALM* 114 GM TOPICAL PRN ×2 (00:04→20:55)
[2018-01-25] MEDS: Levothyroxine TAB* 100 MCG TAB PO SCH (04:35)
[2018-01-25 05:57] LABS: ABS Basophils 0.1 10^3/ul (0-0.2); ABS Eosinophils 0.3 10^3/ul (0-0.6); ABS Lymphocytes 1.6 10^3/ul (1.0-4.8); ABS Monocytes 0.8 10^3/ul (0-0.8); ABS Neutrophils 4.7 10^3/ul (1.5-7.7); ABS Nucleated RBC 0 10^3/ul; Eosinophil % 4.4 % (0-6); Hematocrit 21 % (35-47); Hemoglobin 7.4 g/dl (12.0-16.0); Lymphocyte % 21.8 % (25-47); Mean Corpuscular HGB Conc 35 g/dl (31-36); Mean Corpuscular Hemoglobin 32 pg (27-31); Mean Corpuscular Volume 90 fL (80-97); Mean Platelet Volume 7.1 um3 (7.4-10.4); Nucleated Red Blood Cells % 0.1; Platelet Count 124 10^3/ul (150-450); Red Blood Count 2.32 10^6/ul (4.00-5.40); Red Cell Distribution Width 16 % (10.5-15); White Blood Count 7.5 10^3/ul (3.5-10.8)
[2018-01-25 06:19] LABS: EGFR Non-African American 35.5 (>60)
--- NOTE | 2018-01-25 08:01 | PN ---
Subjective Date of Service: 01/25/18 Interval History: . Good spirits Discussed her blood levels -- that they are a bit lower than we would like given she received 2 units and did not bump as much as expected. It could be secondary to re-equilibration from previous blood loss and/or minor dilution effects given concurrent crystalloid administered yesterday. one episode of chest pain yesterday - minor and transient. tolerating medication regimen well. eating well plan to give additional unit prbc and recheck H&H later today. Discussed case with Dr. Herron who has been closely involved. . Family History: Unchanged from Admission Social History: Unchanged from Admission Past Medical History: Unchanged from Admission Objective Active Medications: . Acetaminophen (Tylenol Tab*) 650 mg PO Q6HR PRN PRN Reason: PAIN Hydrocodone Bitart/Acetaminophen ([place] 10/325 (Nf)) 1 tab PO Q4H PRN PRN Reason: PAIN Last Admin: 01/25/18 04:35 Dose: 1 tab Albuterol (Ventolin 2.5 Mg/3 Ml Neb.Raiza*) 2.5 mg INH QID PRN PRN Reason: SHORTNESS OF BREATH Amiodarone HCl (Cordarone Tab*) 200 mg PO DAILY [facility] [place] Last Admin: 01/24/18 10:04 Dose: 200 mg Amitriptyline HCl (Elavil Tab*) 10 mg PO BEDTIME [facility] Last Admin: 01/24/18 22:50 Dose: 10 mg Amlodipine Besylate (Norvasc Tab*) 10 mg PO DAILY [facility] [place] Last Admin: 01/24/18 11:11 Dose: Not Given Aspirin (Aspirin Ec Tab*) 81 mg PO DAILY [facility] [place] Last Admin: 01/24/18 10:04 Dose: 81 mg Cetirizine HCl (Zyrtec*) 10 mg PO DAILY [facility] Last Admin: 01/24/18 10:08 Dose: 10 mg Cholecalciferol (Vitamin D Tab*) 1,000 units PO DAILY [facility] Last Admin: 01/24/18 10:03 Dose: 1,000 units Docusate Sodium (Colace Cap*) 200 mg PO BID [facility] [place] Last Admin: 01/24/18 22:50 Dose: 200 mg Ezetimibe (Zetia Tab*) 10 mg PO DAILY [facility] [place] Last Admin: 01/24/18 10:08 Dose: 10 mg Famotidine (Pepcid Tab*) 20 mg PO BEDTIME [facility] Last Admin: 01/24/18 22:51 Dose: 20 mg Ferrous Sulfate (Ferrous Sulfate Tab*) 325 mg PO DAILY [facility] [place] Last Admin: 01/24/18 10:08 Dose: 325 mg Fluticasone Propionate (Flonase Nasal [place] 50mcg*) 2 spray BOTH NARES DAILY [facility] [place] Last Admin: 01/24/18 11:42 Dose: 2 spray Nitroglycerin/Dextrose (Nitroglycerin Drip*) 25,000 mcg in 250 mls @ 0 mls/hr IV .(Initial Rate) [facility] [place]; Protocol Last Admin: 01/23/18 08:45 Dose: 36 mls/hr Sodium Chloride (Ns 0.9% 1000 Ml*) 1,000 mls @ 75 mls/hr IV .per rate [facility] [place] Last Admin: 01/23/18 23:00 Dose: 75 mls/hr Isosorbide Mononitrate (Imdur Er Tab*) 120 mg PO DAILY [facility] Last Admin: 01/24/18 10:09 Dose: 120 mg Levothyroxine Sodium (Synthroid Tab*) 200 mcg PO DAILY@0600 [facility] Last Admin: 01/25/18 04:35 Dose: 200 mcg Metoprolol Tartrate (Lopressor Tab*) 25 mg PO Q8H [facility] [place] Mometasone Furoate/Formoterol Fumar (Dulera 200/5 Mdi*) 2 puff INH BID [facility] Last Admin: 01/24/18 20:40 Dose: 2 puff Montelukast Sodium (Singulair Tab*) 10 mg PO DAILY [facility] Last Admin: 01/24/18 10:05 Dose: 10 mg Multi-Ingredient Liniment/Rub (Rafael Pinto*) 1 applic TOPICAL BID PRN PRN Reason: knee pain Last Admin: 01/25/18 00:04 Dose: 1 applic Nitroglycerin (Nitroglycerin Tab 0.4 Mg*) 0.4 mg SL Q5M PRN PRN Reason: ANGINA Last Admin: 01/24/18 09:10 Dose: 0.4 mg Omeprazole (Prilosec Cap*) 40 mg PO BID AC [facility] [place] Last Admin: 01/24/18 16:54 Dose: 40 mg Polyvinyl Alcohol (Polyvinyl Alcohol 1.4% Opth*) 1 drop BOTH EYES Q2H PRN PRN Reason: DRY EYE Last Admin: 01/24/18 04:21 Dose: 1 drop Pramipexole Dihydrochloride (Mirapex Tab*) 2 mg PO BEDTIME [facility] [place] Last Admin: 01/24/18 22:51 Dose: 2 mg Ranolazine (Ranexa (Nf)) 500 mg PO BID [facility]; Protocol Last Admin: 01/24/18 22:51 Dose: 500 mg Senna (Senokot Tab*) 1 tab PO BID [facility] Last Admin: 01/24/18 22:51 Dose: 1 tab Ticagrelor (Brilinta*) 90 mg PO BID [facility] [place] Last Admin: 01/24/18 22:51 Dose: 90 mg Venlafaxine HCl (Effexor Xr Cap*) 37.5 mg PO BEDTIME [facility] [place] Last Admin: 01/24/18 22:51 Dose: 37.5 mg . Vital Signs - 8 hr 01/24/18 01/24/18 01/25/18 23:57 23:58 00:00 Temperature Pulse Rate 76 74 74 Respiratory 11 12 21 Rate Blood Pressure 157/64 162/71 161/73 (mmHg) O2 Sat by Pulse 97 98 98 Oximetry 01/25/18 01/25/18 01/25/18 00:15 00:30 01:00 Temperature Pulse Rate 75 70 70 Respiratory 14 10 11 Rate Blood Pressure 190/77 116/63 119/51 (mmHg) O2 Sat by Pulse 100 100 100 Oximetry Oxygen Devices in Use Now: Nasal Cannula Appearance: Obese, NAD, lying ~ flat in bed Ears/Nose/Mouth/Throat: NL Teeth, Lips, Gums Neck: NL Appearance and Movements; NL JVP Respiratory: Symmetrical Chest Expansion and Respiratory Effort Cardiovascular: NL Sounds; No Murmurs; No JVD Abdominal: NL Sounds; No Tenderness; No Distention, - - obese Lymphatic: No Cervical Adenopathy Extremities: - - R groin without clear hematoma at this point. obesity makes it difficult to tell whether there is ongoing hemorrhage. + pulses equal at DP bilaterally. Skin: No Rash or Ulcers Neurological: Alert and Oriented x 3 Lines/Tubes/Other Access: Clean, Dry and Intact [place], Clean, Dry and Intact Central Line - L IJ C/D/I Nutrition: Taking PO's Result Diagrams: 01/25/18 05:49 01/25/18 05:49 Microbiology and Other Data: Microbiology 01/21/18 05:15 Nasal Screen MRSA (PCR) - Final Nasal Mrsa Not Detected Assess/Plan/Problems-Billing . Assessment: 77 yo F with h/o CAD (99% stenosis RCA-managed medically in 2017), chronic angina, asthma (chronic hypoxemic respiratory failure on 02 at 2L), CKD stage 3 , paroxysmal A. fib, essential tremor who presents with CP increasing in frequency. was planned for outpatient cath on 01/22/18. EGD shows only a polyp --> low risk for bleed with DAPT. Proceeded with cath --> MARCOS to LCX as per Dr. Herron. Post-cath complicated by large R groin and anterior thigh hematoma. No complications. Current Medications: - Acetaminophen (Tylenol Tab*) 650 mg PO Q6HR PRN PAIN - Hydrocodone Bitart/Acetaminophen ([place] 10/325 (Nf)) 1 tab PO Q4H PRN PAIN - Amitriptyline HCl (Elavil Tab*) 10 mg PO BEDTIME - Venlafaxine HCl (Effexor Xr Cap*) 37.5 mg PO BEDTIME [facility] - Cholecalciferol (Vitamin D Tab*) 1,000 units PO DAILY - Famotidine (Pepcid Tab*) 20 mg PO BEDTIME - Omeprazole (Prilosec Cap*) 40 mg PO BID AC - Ferrous Sulfate (Ferrous Sulfate Tab*) 325 mg PO DAILY - Heparin Sodium (Porcine) (Heparin Vial(*)) 5,000 units SUBCUT Q8HR [facility] - Sodium Chloride (Ns 0.9% 1000 Ml*) 1,000 mls @ 75 mls/hr IV .per rate 75 mls/ hr - Isosorbide Mononitrate (Imdur Er Tab*) 120 mg PO DAILY - Ranolazine (Ranexa (Nf)) 500 mg PO BID [facility]; - Metoprolol Tartrate (Lopressor Tab*) 25 mg PO Q8H [facility] - Nitroglycerin (Nitroglycerin Tab 0.4 Mg*) 0.4 mg SL Q5M PRN ANGINA - Nitroglycerin/Dextrose (Nitroglycerin Drip*) 25,000 mcg in 250 mls @ 0 mls/ hr IV .(Initial Rate) [facility]; Protocol @ 36 mls/hr - now off - Ezetimibe (Zetia Tab*) 10 mg PO DAILY - Amlodipine Besylate (Norvasc Tab*) 10 mg PO DAILY - Aspirin (Aspirin Ec Tab*) 81 mg PO DAILY - Amiodarone HCl (Cordarone Tab*) 200 mg PO DAILY - Ticagrelor (Brilinta*) 90 mg PO BID [facility] - Levothyroxine Sodium (Synthroid Tab*) 200 mcg PO DAILY@0600 - Mometasone Furoate/Formoterol Fumar (Dulera 200/5 Mdi*) 2 puff INH BID [facility] - Montelukast Sodium (Singulair Tab*) 10 mg PO DAILY - Cetirizine HCl (Zyrtec*) 10 mg PO DAILY - Albuterol (Ventolin 2.5 Mg/3 Ml Neb.Raiza*) 2.5 mg INH QID PRN SHORTNESS OF BREATH - Fluticasone Propionate (Flonase Nasal [place] 50mcg*) 2 spray BOTH NARES DAILY - Multi-Ingredient Liniment/Rub (Rafael Pinto*) 1 applic TOPICAL BID PRN knee pain - Polyvinyl Alcohol (Polyvinyl Alcohol 1.4% Opth*) 1 drop BOTH EYES Q2H PRN DRY EYE - Pramipexole Dihydrochloride (Mirapex Tab*) 2 mg PO BEDTIME - Senna (Senokot Tab*) 1 tab PO BID [facility] - Docusate Sodium (Colace Cap*) 200 mg PO BID - Patient Problems (1) Anemia Current Visit: No Status: Acute Priority: High Code(s): D64.9 - ANEMIA, UNSPECIFIED SNOMED Code(s): 326721289 Comment: Hgb did not increase as expected given 2 unit prbc transfusion 01/24/18. 6.1 --> 7.8 --> 7.4 Additional unit 01/25/18; recheck hgb at 1500 01/25/18. No SOB noted. CTA pelvis with runoff --> no pseudoaneurysm. Phys Ex: no obvious enlarging hematoma. (2) CAD (coronary artery disease) Current Visit: No Status: Chronic Priority: High Code(s): I25.10 - ATHSCL HEART DISEASE OF [place] CORONARY ARTERY W/O ANG PCTRS Comment: - MARCOS to LCX 01/23/[address] Herron. - Continue current medications: - Isosorbide Mononitrate (Imdur Er Tab) 120 mg PO DAILY - Ranolazine (Ranexa (Nf)) 500 mg PO BID [facility]; - Metoprolol Tartrate (Lopressor Tab*) 25 mg PO Q8H [facility] - Nitroglycerin (Nitroglycerin Tab 0.4 Mg*) 0.4 mg SL Q5M PRN ANGINA - Ezetimibe (Zetia) 10 mg PO DAILY - Amlodipine Besylate (Norvasc) 10 mg PO DAILY - Aspirin (Aspirin Ec) 81 mg PO DAILY - Amiodarone HCl (Cordarone) 200 mg PO DAILY - Ticagrelor (Brilinta) 90 mg PO BID - Nitroglycerin Drip @ 36 mls/hr - NOW OFF (3) Atrial fibrillation Current Visit: No Status: Acute Priority: High Code(s): I48.91 - UNSPECIFIED ATRIAL FIBRILLATION SNOMED Code(s): 46115831 Comment: - s/p cardioversion 09/25/16 - in sinus on Amiodarone and low dose metoprolol. - No anticoagulation due to h/o PUD in 2017 (4) CKD (chronic kidney disease) Current Visit: Yes Status: Chronic Priority: High Code(s): N18.9 - CHRONIC KIDNEY DISEASE, UNSPECIFIED Comment: - Stage III, creat at baseline, (~ 1.3) (5) Gastric ulcer Current Visit: No Status: Chronic Code(s): K25.9 - GASTRIC ULCER, UNSP ACUTE OR CHRONIC, W/O HEMOR OR PERF Comment: - EGD does not show active PUD - Continue H2B and PPI - OK for DAPT - ongoing now... (6) Chronic hypoxemic respiratory failure Current Visit: Yes Status: Acute Comment: - on home 02 at 2L - Mometasone Furoate/Formoterol Fumar (Dulera 200/5 Mdi) 2 puff INH BID [facility] - Montelukast Sodium (Singulair) 10 mg PO DAILY - Cetirizine HCl (Zyrtec) 10 mg PO DAILY - Albuterol (Ventolin 2.5 Mg/3 Ml Neb.Raiza) 2.5 mg INH QID PRN SHORTNESS OF BREATH - Fluticasone Propionate (Flonase Nasal [place] 50mcg) 2 spray BOTH NARES DAILY (7) RLS (restless legs syndrome) Current Visit: No Status: Chronic Priority: High Comment: - Pramipexole Dihydrochloride (Mirapex Tab*) 2 mg PO BEDTIME
[2018-01-25] MEDS: Omeprazole CAP* 20 MG PO SCH ×2 (08:56→16:33)
[2018-01-25] MEDS: Metoprolol Tartrate TAB* 25 MG PO SCH ×3 (08:56→23:31)
[2018-01-25] MEDS: Mometasone/Formoter 200/5 MDI INH SCH ×2 (09:02→20:24)
[2018-01-25] MEDS: Amiodarone TAB* 200 MG PO SCH (09:29)
[2018-01-25] MEDS: Ferrous Sulfate TAB* 325 MG PO SCH (09:29)
[2018-01-25] MEDS: Ezetimibe TAB* 10 MG PO SCH (09:29)
[2018-01-25] MEDS: amLODIPine TAB* 5 MG PO SCH (09:29)
[2018-01-25] MEDS: Aspirin EC TAB* 81 MG TAB.EC PO SCH (09:29)
[2018-01-25] MEDS: Ticagrelor* 90 MG TAB PO SCH ×2 (09:29→20:52)
[2018-01-25] MEDS: Senna TAB PO SCH ×2 (09:29→20:50)
[2018-01-25] MEDS: Cetirizine* 10 MG TAB PO SCH (09:29)
[2018-01-25] MEDS: Cholecalciferol TAB* 1000 UNITS PO SCH (09:29)
[2018-01-25] MEDS: Docusate CAP* 100 MG PO SCH ×2 (09:30→20:50)
[2018-01-25] MEDS: Isosorbide Mononitrate ER TAB* 60 MG PO SCH (09:30)
[2018-01-25] MEDS: CMCS:Ranolazine (NF) 500 MG TAB PO SCH ×2 (09:30→20:52)
[2018-01-25] MEDS: Montelukast Sodium TAB* 10 MG PO SCH (09:30)
--- NOTE | 2018-01-25 10:00 | ECHO ---
Patient: JOCELYNE CHILDERS [facility] Rec#: [id number] : 1940 Date: 01/25/2018 Age: 77y Height: 154.94 cm / 61.0 in Weight: 123.38 kg / 271.9 lbs Sex: F BSA: 2.15 Room#: [facility]6 Admit Date#: 01/21/2018 Type: Inpatient Referring: Bennie Herron MD Reading: Bennie Herron MD Hypoid Gear Tester: Heike Lua LILI CC: You Delgado DO CC: Manas Villeda MD Transthoracic Echocardiogram Indication: CAD//s/p PCI BP: 171/73 HR: 76 Rhythm: NSR Findings History: S/P PCI, groin hematoma,a-fib,CKD,HTN,HLD. Technical Comments: The study quality is good. Completed at 0851. Left Ventricle: The left ventricular chamber size is normal. There is a focal wall motion abnormality present.There is a small focal area moderate to severe hypokinesis of the inferior wall seen in the apical 2 chamber view. This is not seen in other views. Left ventricular systolic function is at the lower limits of normal. The estimated ejection fraction is 50-55%. There is no consistent Doppler evidence of clinically significant diastolic dysfunction. Left Atrium: The left atrium is mild to moderately dilated. Right Ventricle: The right ventricular cavity size is normal. The right ventricular global systolic function is normal. Right Atrium: The right atrium is mildly dilated. Aortic Valve: The aortic valve is trileaflet. There is no evidence of aortic valve thickening. There is no evidence of aortic regurgitation. There is no evidence of aortic stenosis. Mitral Valve: The mitral valve leaflets are mildly thickened. There is trace to mild mitral regurgitation. There is no evidence of mitral stenosis. Tricuspid Valve: The tricuspid valve leaflets are normal. There is mild tricuspid regurgitation. There is evidence of moderate pulmonary hypertension. There is no tricuspid stenosis. Pulmonic Valve: The pulmonic valve appears normal. There is a trace pulmonic regurgitation. There is no pulmonic stenosis. Pericardium: A pericardial fat pad is visualized. Aorta: There is no dilatation of the ascending aorta. There is no dilatation of the aortic arch. There is no dilation of the aortic root. Pulmonary Artery: The main pulmonary artery appears normal. Venous: The inferior vena cava is dilated. There is a greater than 50% respiratory change in the inferior vena cava dimension. Conclusions Left ventricular systolic function is at the lower limits of normal. There is a small focal area moderate to severe hypokinesis of the inferior wall seen in the apical 2 chamber view. This is not seen in other views. The estimated ejection fraction is 50-55%. There is trace to mild mitral regurgitation. The left atrium is mild to moderately dilated. There is mild tricuspid regurgitation. There is evidence of moderate pulmonary hypertension. The right atrium is mildly dilated. There is a trace pulmonic regurgitation. Compared to report of study from 10/14/2016 there are no significant changes. The assessment of pulmonary HTN was able to be made on current study (reportedly could not be estmiated on last study). Measurements Name Value Normal Range RVIDd (AP) 2D 3.4 cm (0.9 - 2.6) RVDdMajor (2D) 3.2 cm (2.2 - 4.4) RAd ISD 4CH 5.3 cm (3.4 - 4.9) RA (A4C)W 4.2 cm (2.9 - 4.6) IVSd (2D) 1.3 cm (0.6 - 1) LVPWd (2D) 1 cm (0.6 - 1) LVIDd (2D) 4.6 cm (3.6 - 5.4) LVIDs (2D) 3.7 cm - LV FS (2D) 20 % (25 - 45) Aortic Annulus 2 cm (1.4 - 2.6) Ao root diameter (2D) 3 cm (2.1 - 3.5) Ascending Ao 3.3 cm (2.1 - 3.4) Aortic arch 1.9 cm (1.8 - 3.4) Descending Ao 0.7 cm - LA dimension (AP) 2D 5 cm (2.3 - 3.8) LAd ISD 4CH 6.1 cm (2.9 - 5.3) LA ISD 4CH W 5.3 cm (2.5 - 4.5) Name Value Normal Range LA ESV SP 4CH (A/L) 106 ml - LA ESV SP 2CH (A/L) 47 ml - LA ESV BP (A/L) 75 ml - LA ESV BP (A/L) index 34.96 ml/m2 - LA ESV SP 4CH (MOD) 95 ml - LA ESV SP 2CH (MOD) 45 ml - Name Value Normal Range MV E-wave Vmax 1.1 m/sec - MV deceleration time 131 msec - MV A-wave Vmax 1.1 m/sec - MV E:A ratio 1.05 ratio - LV septal e' Vmax 0.07 m/sec - LV lateral e' Vmax 0.08 m/sec - LV E:e' septal ratio 15.71 ratio - LV E:e' lateral ratio 13.75 ratio - Name Value Normal Range AV Vmax 1.8 m/sec - AV VTI 44.6 cm - AV peak gradient 12.19 mmHg - AV mean gradient 6.58 mmHg - LVOT Vmax 1.3 m/sec - LVOT VTI 32.1 cm - LVOT peak gradient 7.14 mmHg - LVOT mean gradient 3.35 mmHg - Name Value Normal Range MR Vmax 4.4 m/sec - MR VTI 165 cm - Name Value Normal Range TR Vmax 3.4 m/sec - TR peak gradient 47 mmHg - RAP 8 mmHg - RVSP 55 mmHg - IVC diameter 2.2 cm - Name Value Normal Range PV Vmax 1.1 m/sec - PV peak gradient 4.49 mmHg -
[2018-01-25] MEDS: Fluticasone NASAL SPRAY 50MCG* 16 gm SPRAY BTL BOTH NARES SCH (10:24)
[2018-01-25 15:00] LABS: Hematocrit 26 % (35-47); Hemoglobin 8.9 g/dl (12.0-16.0); Mean Corpuscular HGB Conc 35 g/dl (31-36); Mean Corpuscular Hemoglobin 31 pg (27-31); Mean Corpuscular Volume 90 fL (80-97); Mean Platelet Volume 6.9 um3 (7.4-10.4); Platelet Count 138 10^3/ul (150-450); Red Blood Count 2.83 10^6/ul (4.00-5.40); Red Cell Distribution Width 16 % (10.5-15); White Blood Count 8.4 10^3/ul (3.5-10.8)
[2018-01-25] MEDS: Acetaminophen TAB* 325 MG PO PRN ×2 (15:30→23:31)
[2018-01-25] MEDS: Heparin VIAL(*) 5000 UNITS/ML VIAL (FIVE THOUSAND) SUBCUT SCH (17:13)
[2018-01-25 17:21] LABS: ABS Basophils 0 10^3/ul (0-0.2); ABS Eosinophils 0.4 10^3/ul (0-0.6); ABS Lymphocytes 1.4 10^3/ul (1.0-4.8); ABS Monocytes 0.9 10^3/ul (0-0.8); ABS Neutrophils 5.6 10^3/ul (1.5-7.7); ABS Nucleated RBC 0 10^3/ul; Lymphocyte % 17.2 % (25-47); Nucleated Red Blood Cells % 0.1
[2018-01-25] MEDS: Amitriptyline TAB* 10 MG PO SCH (20:49)
[2018-01-25] MEDS: Famotidine TAB* 20 MG PO SCH (20:50)
[2018-01-25] MEDS: Pramipexole TAB* 0.5 MG PO SCH (20:51)
[2018-01-25] MEDS: Venlafaxine EXT RELEASE CAP* 37.5 MG PO SCH (20:52)
[2018-01-25] MEDS: Artificial Tears* 15 ML BTL BOTH EYES PRN (20:54)
[2018-01-26] MEDS: Heparin VIAL(*) 5000 UNITS/ML VIAL (FIVE THOUSAND) SUBCUT SCH ×3 (00:31→16:58)
[2018-01-26] MEDS: Hydrocodone/Acetamin 10/325 1 TAB PO PRN ×4 (06:15→22:49)
[2018-01-26] MEDS: Levothyroxine TAB* 100 MCG TAB PO SCH (06:15)
[2018-01-26 06:26] LABS: Hematocrit 22 % (35-47); Hemoglobin 7.9 g/dl (12.0-16.0)
[2018-01-26 06:45] LABS: EGFR Non-African American 36.4 (>60)
[2018-01-26] MEDS: Metoprolol Tartrate TAB* 25 MG PO SCH (07:48)
[2018-01-26] MEDS: Omeprazole CAP* 20 MG PO SCH ×2 (07:48→16:57)
[2018-01-26] MEDS: Mometasone/Formoter 200/5 MDI INH SCH ×2 (08:33→19:41)
[2018-01-26] MEDS: Montelukast Sodium TAB* 10 MG PO SCH (08:40)
[2018-01-26] MEDS: Isosorbide Mononitrate ER TAB* 60 MG PO SCH (08:40)
[2018-01-26] MEDS: Acetaminophen TAB* 325 MG PO PRN (08:41)
[2018-01-26] MEDS: Ticagrelor* 90 MG TAB PO SCH ×2 (08:41→21:17)
[2018-01-26] MEDS: Aspirin EC TAB* 81 MG TAB.EC PO SCH (08:42)
[2018-01-26] MEDS: Amiodarone TAB* 200 MG PO SCH (08:42)
[2018-01-26] MEDS: Ferrous Sulfate TAB* 325 MG PO SCH (08:42)
[2018-01-26] MEDS: CMCS:Ranolazine (NF) 500 MG TAB PO SCH ×2 (08:42→21:17)
[2018-01-26] MEDS: amLODIPine TAB* 5 MG PO SCH (08:43)
[2018-01-26] MEDS: Cetirizine* 10 MG TAB PO SCH (08:43)
[2018-01-26] MEDS: Cholecalciferol TAB* 1000 UNITS PO SCH (08:43)
[2018-01-26] MEDS: Ezetimibe TAB* 10 MG PO SCH (08:44)
[2018-01-26] MEDS: Senna TAB PO SCH ×2 (08:44→21:18)
[2018-01-26] MEDS: Docusate CAP* 100 MG PO SCH ×2 (08:44→21:16)
[2018-01-26] MEDS: Fluticasone NASAL SPRAY 50MCG* 16 gm SPRAY BTL BOTH NARES SCH (08:45)
--- NOTE | 2018-01-26 09:19 | RAD ---
Indication: Pelvic hematoma. CT of the pelvis performed without IV contrast. Coronal and sagittal reconstructed images were obtained. Comparison is made with previous exam dated January 24, 2018. Right inguinal hematoma is again identified. Right inguinal hematoma measures approximately 8.7 cm away x 9.7 cm in width x 3.6 cm in greatest AP dimension. A more medial component measures 12.7 x 6.4 x 4.9 cm and appears slightly smaller than on prior exam. Bilateral hip replacements are noted. IMPRESSION: Right inguinal hematoma appears to be slightly smaller than on prior exam. There is a medial component of the hematoma in the medial inguinal region also appearing slightly smaller than on prior exam of January 24, 2018.
[2018-01-26] MEDS ORDERED: Metoprolol Tartrate TAB* 25 MG PO ONE (11:20)
--- NOTE | 2018-01-26 17:32 | PN ---
Subjective Date of Service: 01/26/18 Interval History: . - Patient in good spirits - Hgb lower this AM --> repeat CT to ensure hematoma not growing and indeed, it was not. - transfer to floor after stability in most respects - OOB to chair s tolerated - PT consult requested - no chest pain Family History: Unchanged from Admission Social History: Unchanged from Admission Past Medical History: Unchanged from Admission Objective Active Medications: . Acetaminophen (Tylenol Tab*) 650 mg PO Q6HR PRN PRN Reason: PAIN Last Admin: 01/26/18 08:41 Dose: 650 mg Hydrocodone Bitart/Acetaminophen ([place] 10/325 (Nf)) 1 tab PO Q4H PRN PRN Reason: PAIN Last Admin: 01/26/18 13:31 Dose: 1 tab Albuterol (Ventolin 2.5 Mg/3 Ml Neb.Raiza*) 2.5 mg INH QID PRN PRN Reason: SHORTNESS OF BREATH Amiodarone HCl (Cordarone Tab*) 200 mg PO DAILY [facility] Last Admin: 01/26/18 08:42 Dose: 200 mg Amitriptyline HCl (Elavil Tab*) 10 mg PO BEDTIME [facility] Last Admin: 01/25/18 20:49 Dose: 10 mg Amlodipine Besylate (Norvasc Tab*) 10 mg PO DAILY [facility] Last Admin: 01/26/18 08:43 Dose: 10 mg Aspirin (Aspirin Ec Tab*) 81 mg PO DAILY [facility] Last Admin: 01/26/18 08:42 Dose: 81 mg Cetirizine HCl (Zyrtec*) 10 mg PO DAILY [facility] Last Admin: 01/26/18 08:43 Dose: 10 mg Cholecalciferol (Vitamin D Tab*) 1,000 units PO DAILY [facility] Last Admin: 01/26/18 08:43 Dose: 1,000 units Docusate Sodium (Colace Cap*) 200 mg PO BID [facility] Last Admin: 01/26/18 08:44 Dose: 200 mg Ezetimibe (Zetia Tab*) 10 mg PO DAILY [facility] Last Admin: 01/26/18 08:44 Dose: 10 mg Famotidine (Pepcid Tab*) 20 mg PO BEDTIME [facility] Last Admin: 01/25/18 20:50 Dose: 20 mg Ferrous Sulfate (Ferrous Sulfate Tab*) 325 mg PO DAILY [facility] Last Admin: 01/26/18 08:42 Dose: 325 mg Fluticasone Propionate (Flonase Nasal [place] 50mcg*) 2 spray BOTH NARES DAILY [facility] Last Admin: 01/26/18 08:45 Dose: 2 spray Heparin Sodium (Porcine) (Heparin Flush Picc/Ml/Cvc(*)) 1 ml FLUSH 0600,1800 [facility]; Protocol Last Admin: 01/26/18 06:16 Dose: Not Given Heparin Sodium (Porcine) (Heparin Vial(*)) 5,000 units SUBCUT Q8H [facility] Last Admin: 01/26/18 16:58 Dose: 5,000 units Nitroglycerin/Dextrose (Nitroglycerin Drip*) 25,000 mcg in 250 mls @ 0 mls/hr IV .(Initial Rate) [facility]; Protocol Last Admin: 01/23/18 08:45 Dose: 36 mls/hr Sodium Chloride (Ns 0.9% 1000 Ml*) 1,000 mls @ 75 mls/hr IV .per rate [facility] Last Admin: 01/23/18 23:00 Dose: 75 mls/hr Isosorbide Mononitrate (Imdur Er Tab*) 120 mg PO DAILY [facility] Last Admin: 01/26/18 08:40 Dose: 120 mg Levothyroxine Sodium (Synthroid Tab*) 200 mcg PO DAILY@0600 [facility] Last Admin: 01/26/18 06:15 Dose: 200 mcg Metoprolol Succinate (Toprol Xl Tab*) 50 mg PO BID [facility] Mometasone Furoate/Formoterol Fumar (Dulera 200/5 Mdi*) 2 puff INH BID [facility] Last Admin: 01/26/18 08:33 Dose: 2 puff Montelukast Sodium (Singulair Tab*) 10 mg PO DAILY [facility] Last Admin: 01/26/18 08:40 Dose: 10 mg Multi-Ingredient Liniment/Rub (Rafael Pinto*) 1 applic TOPICAL BID PRN PRN Reason: knee pain Last Admin: 01/25/18 20:55 Dose: 1 applic Nitroglycerin (Nitroglycerin Tab 0.4 Mg*) 0.4 mg SL Q5M PRN PRN Reason: ANGINA Last Admin: 01/24/18 09:10 Dose: 0.4 mg Omeprazole (Prilosec Cap*) 40 mg PO BID [facility] Last Admin: 01/26/18 16:57 Dose: 40 mg Polyvinyl Alcohol (Polyvinyl Alcohol 1.4% Opth*) 1 drop BOTH EYES Q2H PRN PRN Reason: DRY EYE Last Admin: 01/25/18 20:54 Dose: 1 drop Pramipexole Dihydrochloride (Mirapex Tab*) 2 mg PO BEDTIME [facility] Last Admin: 01/25/18 20:51 Dose: 2 mg Ranolazine (Ranexa (Nf)) 500 mg PO BID [facility]; Protocol Last Admin: 01/26/18 08:42 Dose: 500 mg Senna (Senokot Tab*) 1 tab PO BID [facility] Last Admin: 01/26/18 08:44 Dose: 1 tab Ticagrelor (Brilinta*) 90 mg PO BID [facility] Last Admin: 01/26/18 08:41 Dose: 90 mg Venlafaxine HCl (Effexor Xr Cap*) 37.5 mg PO BEDTIME [facility] Last Admin: 01/25/18 20:52 Dose: 37.5 mg . Vital Signs - 8 hr 01/26/18 01/26/18 01/26/18 10:00 11:00 11:07 Temperature Pulse Rate 71 Respiratory 16 6 6 Rate Blood Pressure 161/72 (mmHg) O2 Sat by Pulse 99 Oximetry 01/26/18 01/26/18 01/26/18 11:46 12:00 13:22 Temperature 97.9 F 97.5 F Pulse Rate 72 71 Respiratory 18 20 Rate Blood Pressure 178/80 159/75 (mmHg) O2 Sat by Pulse 100 100 Oximetry Oxygen Devices in Use Now: Nasal Cannula Appearance: NAD Eyes: No Scleral Icterus Ears/Nose/Mouth/Throat: NL Teeth, Lips, Gums Neck: NL Appearance and Movements; NL JVP Respiratory: Symmetrical Chest Expansion and Respiratory Effort Cardiovascular: NL Sounds; No Murmurs; No JVD Abdominal: NL Sounds; No Tenderness; No Distention, - - obese, R groin without obvious hematoma. Lymphatic: No Cervical Adenopathy Extremities: No Edema Skin: No Rash or Ulcers Neurological: Alert and Oriented x 3 Lines/Tubes/Other Access: Clean, Dry and Intact Peripheral IV Nutrition: Taking PO's Result Diagrams: 01/26/18 06:05 01/26/18 06:05 Microbiology and Other Data: Microbiology 01/21/18 05:15 Nasal Screen MRSA (PCR) - Final Nasal Mrsa Not Detected Assess/Plan/Problems-Billing . Assessment: 77 yo F with h/o CAD (99% stenosis RCA-managed medically in 2017), chronic angina, asthma (chronic hypoxemic respiratory failure on 02 at 2L), CKD stage 3 , paroxysmal A. fib, essential tremor who presents with CP increasing in frequency. was planned for outpatient cath on 01/22/18. EGD shows only a polyp --> low risk for bleed with DAPT. Proceeded with cath --> MARCOS to LCX as per Dr. Herron. Post-cath complicated by large R groin and anterior thigh hematoma. No other complications. Current Medications: - Acetaminophen (Tylenol Tab*) 650 mg PO Q6HR PRN PAIN - Hydrocodone Bitart/Acetaminophen ([place] 10/325 (Nf)) 1 tab PO Q4H PRN PAIN - Amitriptyline HCl (Elavil Tab*) 10 mg PO BEDTIME - Venlafaxine HCl (Effexor Xr Cap*) 37.5 mg PO BEDTIME [facility] - Cholecalciferol (Vitamin D Tab*) 1,000 units PO DAILY - Famotidine (Pepcid Tab*) 20 mg PO BEDTIME - Omeprazole (Prilosec Cap*) 40 mg PO BID [facility] - Ferrous Sulfate (Ferrous Sulfate Tab*) 325 mg PO DAILY - Heparin Sodium (Porcine) (Heparin Vial(*)) 5,000 units SUBCUT Q8HR [facility] - Sodium Chloride (Ns 0.9% 1000 Ml*) 1,000 mls @ 75 mls/hr IV .per rate 75 mls/ hr - Isosorbide Mononitrate (Imdur Er Tab*) 120 mg PO DAILY - Ranolazine (Ranexa (Nf)) 500 mg PO BID [facility]; - Metoprolol Tartrate (Lopressor Tab*) 25 mg PO Q8H [facility] - Nitroglycerin (Nitroglycerin Tab 0.4 Mg*) 0.4 mg SL Q5M PRN ANGINA - Nitroglycerin/Dextrose (Nitroglycerin Drip*) 25,000 mcg in 250 mls @ 0 mls/ hr IV .(Initial Rate) [facility]; Protocol @ 36 mls/hr - now off - Ezetimibe (Zetia Tab*) 10 mg PO DAILY - Amlodipine Besylate (Norvasc Tab*) 10 mg PO DAILY - Aspirin (Aspirin Ec Tab*) 81 mg PO DAILY - Amiodarone HCl (Cordarone Tab*) 200 mg PO DAILY - Ticagrelor (Brilinta*) 90 mg PO BID [facility] - Levothyroxine Sodium (Synthroid Tab*) 200 mcg PO DAILY@0600 - Mometasone Furoate/Formoterol Fumar (Dulera 200/5 Mdi*) 2 puff INH BID [facility] - Montelukast Sodium (Singulair Tab*) 10 mg PO DAILY - Cetirizine HCl (Zyrtec*) 10 mg PO DAILY - Albuterol (Ventolin 2.5 Mg/3 Ml Neb.Raiza*) 2.5 mg INH QID PRN SHORTNESS OF BREATH - Fluticasone Propionate (Flonase Nasal [place] 50mcg*) 2 spray BOTH NARES DAILY - Multi-Ingredient Liniment/Rub (Rafael Pinto*) 1 applic TOPICAL BID PRN knee pain - Polyvinyl Alcohol (Polyvinyl Alcohol 1.4% Opth*) 1 drop BOTH EYES Q2H PRN DRY EYE - Pramipexole Dihydrochloride (Mirapex Tab*) 2 mg PO BEDTIME - Senna (Senokot Tab*) 1 tab PO BID [facility] - Docusate Sodium (Colace Cap*) 200 mg PO BID - Patient Problems (1) Anemia Current Visit: No Status: Acute Priority: High Code(s): D64.9 - ANEMIA, UNSPECIFIED Comment: Hgb did not increase as expected given 2 unit prbc transfusion 01/24/18. 6.1 --> 7.8 --> 7.4 Additional unit 01/25/18; recheck hgb at 1500 01/25/18 was 8.9 Decrease again to 7.9 on 01/26/18 (dilutional?) No SOB noted. CTA pelvis with runoff (01/24) --> no pseudoaneurysm. Phys Ex: no obvious enlarging hematoma. repeat CT (no contrast) 01/26 --> smaller hematoma! (2) CAD (coronary artery disease) Current Visit: No Status: Chronic Priority: High Code(s): I25.10 - ATHSCL HEART DISEASE OF [place] CORONARY ARTERY W/O ANG PCTRS Comment: - MARCOS to LCX 01/23/[address] Herron. - Continue current medications: - Isosorbide Mononitrate (Imdur Er Tab) 120 mg PO DAILY - Ranolazine (Ranexa (Nf)) 500 mg PO BID [facility]; - Metoprolol Tartrate (Lopressor Tab*) 25 mg PO Q8H [facility] - Nitroglycerin (Nitroglycerin Tab 0.4 Mg*) 0.4 mg SL Q5M PRN ANGINA - Ezetimibe (Zetia) 10 mg PO DAILY - Amlodipine Besylate (Norvasc) 10 mg PO DAILY - Aspirin (Aspirin Ec) 81 mg PO DAILY - Amiodarone HCl (Cordarone) 200 mg PO DAILY - Ticagrelor (Brilinta) 90 mg PO BID - Nitroglycerin Drip @ 36 mls/hr - NOW OFF (3) Atrial fibrillation Current Visit: No Status: Acute Priority: High Code(s): I48.91 - UNSPECIFIED ATRIAL FIBRILLATION Comment: - s/p cardioversion 09/25/16 - in sinus on Amiodarone and low dose metoprolol. - No anticoagulation due to h/o PUD in 2017 (4) CKD (chronic kidney disease) Current Visit: Yes Status: Chronic Priority: High Code(s): N18.9 - CHRONIC KIDNEY DISEASE, UNSPECIFIED Comment: - Stage III, creat at baseline, (~ 1.3) (5) Gastric ulcer Current Visit: No Status: Chronic Code(s): K25.9 - GASTRIC ULCER, UNSP ACUTE OR CHRONIC, W/O HEMOR OR PERF Comment: - EGD does not show active PUD - Continue H2B and PPI - OK for DAPT - ongoing now... (6) Chronic hypoxemic respiratory failure Current Visit: Yes Status: Acute Comment: - on home 02 at 2L - Mometasone Furoate/Formoterol Fumar (Dulera 200/5 Mdi) 2 puff INH BID [facility] - Montelukast Sodium (Singulair) 10 mg PO DAILY - Cetirizine HCl (Zyrtec) 10 mg PO DAILY - Albuterol (Ventolin 2.5 Mg/3 Ml Neb.Raiza) 2.5 mg INH QID PRN SHORTNESS OF BREATH - Fluticasone Propionate (Flonase Nasal [place] 50mcg) 2 spray BOTH NARES DAILY (7) RLS (restless legs syndrome) Current Visit: No Status: Chronic Priority: High Comment: - Pramipexole Dihydrochloride (Mirapex) 2 mg PO BEDTIME
[2018-01-26 18:42] LABS: ABS Basophils 0 10^3/ul (0-0.2); ABS Eosinophils 0.3 10^3/ul (0-0.6); ABS Lymphocytes 1.3 10^3/ul (1.0-4.8); ABS Monocytes 0.7 10^3/ul (0-0.8); ABS Neutrophils 5.2 10^3/ul (1.5-7.7); ABS Nucleated RBC 0 10^3/ul; Eosinophil % 4.4 % (0-6); Hematocrit 25 % (35-47); Hemoglobin 8.6 g/dl (12.0-16.0); Lymphocyte % 17.1 % (25-47); Mean Corpuscular HGB Conc 34 g/dl (31-36); Mean Corpuscular Hemoglobin 32 pg (27-31); Mean Corpuscular Volume 92 fL (80-97); Mean Platelet Volume 7.3 um3 (7.4-10.4); Nucleated Red Blood Cells % 0.1; Platelet Count 148 10^3/ul (150-450); Red Blood Count 2.72 10^6/ul (4.00-5.40); Red Cell Distribution Width 16 % (10.5-15); White Blood Count 7.4 10^3/ul (3.5-10.8)
[2018-01-26] MEDS: Pramipexole TAB* 0.5 MG PO SCH (21:16)
[2018-01-26] MEDS: Metoprolol Succinate XL TAB* 50 MG PO SCH (21:16)
[2018-01-26] MEDS: Amitriptyline TAB* 10 MG PO SCH (21:17)
[2018-01-26] MEDS: Venlafaxine EXT RELEASE CAP* 37.5 MG PO SCH (21:18)
[2018-01-26] MEDS: Famotidine TAB* 20 MG PO SCH (21:18)
[2018-01-27] MEDS: Heparin VIAL(*) 5000 UNITS/ML VIAL (FIVE THOUSAND) SUBCUT SCH ×2 (00:57→08:19)
[2018-01-27] MEDS: Hydrocodone/Acetamin 10/325 1 TAB PO PRN (05:41)
[2018-01-27] MEDS: Levothyroxine TAB* 100 MCG TAB PO SCH (05:41)
[2018-01-27 07:56] VITALS: BP 156/64
[2018-01-27] MEDS: Isosorbide Mononitrate ER TAB* 60 MG PO SCH (08:13)
[2018-01-27] MEDS: Ticagrelor* 90 MG TAB PO SCH (08:14)
[2018-01-27] MEDS: Docusate CAP* 100 MG PO SCH (08:14)
[2018-01-27] MEDS: Cetirizine* 10 MG TAB PO SCH (08:14)
[2018-01-27] MEDS: Amiodarone TAB* 200 MG PO SCH (08:15)
[2018-01-27] MEDS: Montelukast Sodium TAB* 10 MG PO SCH (08:15)
[2018-01-27] MEDS: amLODIPine TAB* 5 MG PO SCH (08:15)
[2018-01-27] MEDS: Senna TAB PO SCH (08:16)
[2018-01-27] MEDS: Omeprazole CAP* 20 MG PO SCH (08:16)
[2018-01-27] MEDS: Ezetimibe TAB* 10 MG PO SCH (08:16)
[2018-01-27] MEDS: Cholecalciferol TAB* 1000 UNITS PO SCH (08:17)
[2018-01-27] MEDS: Ferrous Sulfate TAB* 325 MG PO SCH (08:17)
[2018-01-27] MEDS: Aspirin EC TAB* 81 MG TAB.EC PO SCH (08:17)
[2018-01-27] MEDS: CMCS:Ranolazine (NF) 500 MG TAB PO SCH (08:17)
[2018-01-27] MEDS: Metoprolol Succinate XL TAB* 50 MG PO SCH (08:18)
[2018-01-27] MEDS: Fluticasone NASAL SPRAY 50MCG* 16 gm SPRAY BTL BOTH NARES SCH (08:18)
[2018-01-27] MEDS: Mometasone/Formoter 200/5 MDI INH SCH (08:46)
[2018-01-27] MEDS: Analgesic BALM* 114 GM TOPICAL PRN (13:11)
--- NOTE | 2018-01-28 06:39 | PN ---
Hospitalist Progress Note Date of Service: 01/27/18 . HOSPITALIST DISCHARGE NOTE: See dc instructions and summary by me. Patient stable for dc dc instructions reviewed with the patient at the bedside. DC patient home today.
--- NOTE | 2018-01-28 16:27 | DS ---
CC: Dr. Villeda; Dr. You Delgado of [facility] Cardiology.* DISCHARGE SUMMARY: DATE OF ADMISSION: 01/21/18 DATE OF DISCHARGE: 01/27/18 STATUS DURING THE HOSPITAL: Inpatient. PRIMARY CARE PROVIDER: Dr. Manas Villeda. OUTPATIENT CUSTOMER ORDER CLERK: Dr. You Delgado. PRINCIPAL DISCHARGE DIAGNOSES: 1. Acute coronary syndrome - known severe coronary artery disease with ongoing unstable angina. 2. Status post cardiac catheterization and drug-eluting stent placed to the left circumflex - please see Dr. Bennie Herron's interventional notes for more details. 3. Pre and postprocedural anemia that is multifactorial including postinterventional groin hematoma and history of GI bleeding. SECONDARY DIAGNOSES: 1. Asthma. 2. Chronic lymphedema. 3. Obstructive sleep apnea - the patient does not use CPAP/noncompliance. 4. Atrial fibrillation - not on anticoagulation (history of GI bleeding). 5. Restless legs syndrome. 6. Essential tremor. 7. Chronic pain. 8. Gastroesophageal reflux disease/peptic ulcer disease with gastric ulcer complicated by upper GI bleed in 2017. 9. Baseline coronary disease with most previous catheterization before this admission in September 2016, at which time she had a 99% ostial lesion in her RCA, for which she was managed medically. 10. Fibromyalgia. 11. History of esophageal spasm. 12. Chronic respiratory failure with 2 liters of oxygen at night and sometimes during the day. DISCHARGE MEDICATION REGIMEN: 1. Brilinta 90 mg by mouth twice daily (new). 2. Stop Plavix. 3. Metoprolol XL 50 mg by mouth twice daily (increased/added a dose prior to admission). 4. Ranexa 500 mg by mouth twice daily. 5. Imdur/isosorbide mononitrate 120 mg by mouth daily. 6. Amlodipine 10 mg by mouth daily. 7. Acetamide 10 mg by mouth daily. 8. Omeprazole 40 mg by mouth twice daily. 9. Oxycodone/acetaminophen 10/325 mg strength 1 or 2 tabs up to 6 times daily. 10. Torsemide 10 mg by mouth daily. 11. Primidone 100 mg by mouth at bedtime. 12. Singulair 10 mg by mouth daily. 13. Vitamin B complex 100 mcg by mouth daily. 14. Advair 500/50 strength 1 puff twice daily. 15. Albuterol 4 times daily as needed. 16. Senokot 8.6 mg twice daily as needed for constipation. 17. Colace 100 mg by mouth twice daily standing. 18. Fluticasone 50 mcg sprays - 2 sprays both nares daily. 19. Multivitamin 1 tablet by mouth once daily. 20. Venlafaxine/Effexor 37.5 mg by mouth in the evening. 21. Levocetirizine 5 mg by mouth daily. 22. Amitriptyline 10 mg by mouth daily. 23. Ferrous sulfate 325 mg by mouth daily. 24. Levothyroxine 175 mcg by mouth once daily. 25. Amiodarone 200 mg by mouth daily. 26. Breo Ellipta 100/25 mcg 1 puff inhaled daily. 27. Nitroglycerine sublingually 0.4 mg up to 3 times daily as needed. 28. Flovent HFA 100 mcg as needed. 29. Shark cartilage 100 mg 2 tabs by mouth twice daily. 30. Calcium/magnesium 750/465 daily. 31. Aspirin 81 mg by mouth daily. HISTORY OF PRESENT ILLNESS/HOSPITAL COURSE: Please see the H and P by Dr. Bryson Steiner as well as the Cardiology consultation by Dr. Delroy Hilliard and the interventional procedural and subsequent progress notes by Dr. Bennie Herron. In brief, Ms. Martin is a 77-year-old female with a known history of severe coronary disease with previous catheterization showing up to 99% lesion in her right coronary artery. The patient also has a history of GI bleeding and peptic ulcer disease and was managed medically. She has known atrial fibrillation, not on anticoagulation. The patient presented to the hospital when she was developing recurrent symptoms attributable to her angina. The patient was scheduled for an outpatient cardiac procedure/catheterization. The patient was admitted to the hospital for an acceleration of this plan. While in the hospital, she had a 1 g hemoglobin drop on the first day prompting a GI workup before the catheterization. Dr. Efra Chen saw the patient and proceeded with an endoscopy on 01/23/18, please see his note for more details, but in short, she was deemed relatively low- risk for dual antiplatelet therapy. She then proceeded with a cardiac catheterization and had a left circumflex drug-eluding stent placed by Dr. Bennie Herron. She tolerated this well. The subsequent morning, she had a further drop in her hemoglobin and a hematoma in her right groin. She is obese with lymphedema and so, this was challenging to assess and monitor. There was prolonged pressure and careful study of this hematoma including a CTA with run off. There was no pseudoaneurysm seen on that study nor by groin vascular studies/ultrasounds. The patient was transfused 2 units. The patient's hemoglobin responded inadequately. The patient's hemoglobin was somewhat erratic and finally demonstrated a good response. A total of 4 units of blood was transfused during this hospitalization. The patient's hemoglobin was stable at 8.6 on the day of discharge. She was ambulating independently. She was feeling well and in good spirits. She has a followup appointment with Dr. You Delgado on at 2 p.m. at the [facility] Cardiology office. She is to follow up with her primary care provider in the next 1 to 2 weeks. The patient was given careful cardiac catheterization discharge instructions including appropriate groin care. She is going to be reactivated with [facility] home care. Oxygen was reordered. The patient is doing well. At the very point of discharge, she complained of some left ankle pain that was subacute and it has been bothering her during the hospitalization. I asked that if this continues that she should talk to her primary care doctor about this and perhaps get a referral to Podiatry, but the ankle, on inspection, did not seem inflamed or swollen and there was no pain on passive motion. This is a highly summarized account of a complex hospitalization. Please see the full record for more details. TIME SPENT: Total time taken to discharge Ms. Martin was 45 minutes, greater than half the time was spent going over the discharge instructions [id number] with the patient. CONDITION AT DISCHARGE: Stable. Return to ED instructions were given to the patient to come back to the emergency room for any symptoms including, but not limited to, chest pain, shortness of breath, lightheadedness, or any other worrisome symptoms that do not robbie spontaneously. [id number]/[facility] #: [id number] MTDD
== END 2018-01-27 15:19 | disposition home health service (06) | DRG 247 ==
LOC: ED 00:28 → ICU 03:52 → MEDTELE 01-26 12:11
PROVIDERS: ADMIT Internal Medicine; ATTEND Internal Medicine
PROC: 027034Z Dilation of Coronary Artery, One Artery with Drug-eluting Intraluminal Device, Percutaneous Approach (ICD-10-PCS; 2018-01-23)
PROC: 4A023N7 Measurement of Cardiac Sampling and Pressure, Left Heart, Percutaneous Approach (ICD-10-PCS; 2018-01-23)
PROC: B2111ZZ Fluoroscopy of Multiple Coronary Arteries using Low Osmolar Contrast (ICD-10-PCS; 2018-01-23)
PROC: 0DJ08ZZ Inspection of Upper Intestinal Tract, Via Natural or Artificial Opening Endoscopic (ICD-10-PCS; 2018-01-23)
PROC: 05HN33Z Insertion of Infusion Device into Left Internal Jugular Vein, Percutaneous Approach (ICD-10-PCS; 2018-01-24)
PROC: 30233N1 Transfusion of Nonautologous Red Blood Cells into Peripheral Vein, Percutaneous Approach (ICD-10-PCS; principal; 2018-01-25)
DX: I25.1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 native coronary artery with unstable angina pectoris (principal); I50.32 Chronic diastolic (congestive) heart failure; 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 kidney disease with heart failure and stage 1 through stage 4 chronic kidney disease, or unspecified chronic kidney disease; Z68.43 Body mass index [BMI] 50.0-59.9, adult; I24.9 Acute ischemic heart disease, unspecified; J96.11 Chronic respiratory failure with hypoxia; L76.32 Postprocedural hematoma of skin and subcutaneous tissue following other procedure; J45.909 Unspecified asthma, uncomplicated; K21.9 Gastro-esophageal reflux disease without esophagitis; M19.90 Unspecified osteoarthritis, unspecified site; F40.240 Claustrophobia; H26.9 Unspecified cataract; Z96.643 Presence of artificial hip joint, bilateral; E66.01 Morbid (severe) obesity due to excess calories; I89.0 Lymphedema, not elsewhere classified; G47.33 Obstructive sleep apnea (adult) (pediatric); G25.81 Restless legs syndrome; E03.9 Hypothyroidism, unspecified; G89.29 Other chronic pain; D64.9 Anemia, unspecified; E78.5 Hyperlipidemia, unspecified; I48.0 Paroxysmal atrial fibrillation; K31.7 Polyp of stomach and duodenum; I45.10 Unspecified right bundle-branch block; K25.9 Gastric ulcer, unspecified as acute or chronic, without hemorrhage or perforation; N18.3 Chronic kidney disease, stage 3 (moderate); G25.0 Essential tremor; K22.4 Dyskinesia of esophagus; M79.7 Fibromyalgia; D63.1 Anemia in chronic kidney disease; H91.91 Unspecified hearing loss, right ear; Y84.8 Other medical procedures as the cause of abnormal reaction of the patient, or of later complication, without mention of misadventure at the time of the procedure; Y84.0 Cardiac catheterization as the cause of abnormal reaction of the patient, or of later complication, without mention of misadventure at the time of the procedure; Y71.2 Prosthetic and other implants, materials and accessory cardiovascular devices associated with adverse incidents; Y92.239 Unspecified place in hospital as the place of occurrence of the external cause; Y71.1 Therapeutic (nonsurgical) and rehabilitative cardiovascular devices associated with adverse incidents; Z79.02 Long term (current) use of antithrombotics/antiplatelets; Z88.8 Allergy status to other drugs, medicaments and biological substances; Z99.81 Dependence on supplemental oxygen; Z87.11 Personal history of peptic ulcer disease; Z83.3 Family history of diabetes mellitus; Z82.3 Family history of stroke; Z82.49 Family history of ischemic heart disease and other diseases of the circulatory system; Z72.89 Other problems related to lifestyle; Z88.6 Allergy status to analgesic agent; Z88.1 Allergy status to other antibiotic agents; Z91.041 Radiographic dye allergy status; Z97.4 Presence of external hearing-aid; Z90.49 Acquired absence of other specified parts of digestive tract; Z79.51 Long term (current) use of inhaled steroids
CPT/HCPCS: 36415; 71045; 72192; 74176; 75635; 80048; 80053; 80061; 82728; 83540; 83550; 83735; 84439; 84443; 84484; 85014; 85018; 85025; 85610; 85730; 86078; 86850; 86870; 86880; 86900; 86901; 86922; 87641; 93005; 93306; 93454; 94640; 99156; 99157; 99285; A9270-GY; C1725; C1760; C1769; C1876; C1887; C9600-LC; G8978-GP-CI; G8979-GP-CI; G8980-GP-CI; J0360; J0583; J1200; J1644; J2250; J2270; J2405; J2920; J3010; P9040; Q9967

== ENCOUNTER 2018-01-31 01:50 | Inpatient (IN) | payer MEDICARE ==
--- NOTE | 2018-01-31 02:14 | ED ---
HPI Chest Pain - HPI Summary HPI Summary: This patient is a 77 year old F presenting to [facility] accompanied by with a chief complaint of CP radiating to jaw that began at 2115 yesterday. The patient rates the pain 8/10 in severity. Symptoms aggravated by nothing. Symptoms alleviated by nothing. Patient reports headache. 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 Pt reports that she was discharged earlier this week after having a stent placed. - History of Current Complaint Chief Complaint: EDChestPainROMI Time Seen by Provider: 01/31/18 01:55 Hx Obtained From: Patient Onset/Duration: Started Hours Ago, Still Present Timing: Constant Initial Severity: Severe Current Severity: Severe Pain Intensity: 8 Pain Scale Used: 0-10 Numeric Chest Pain Location: Diffuse Chest Pain Radiates: Yes Chest Pain Radiates To:: Jaw Aggravating Factor(s): Nothing Alleviating Factor(s): Nothing Associated Signs and Symptoms: Positive: Headaches - Additional Pertinent History Primary Care Physician: FRANKO - Allergy/Home Medications Allergies/Adverse Reactions: Allergies Allergy/AdvReac Type Severity Reaction Status Date / Time Mtxodld-Hik-Bvk Reductase Allergy Unknown Vomiting Verified 01/31/18 01:59 Inhibitor amitriptyline Allergy Unknown Verified 01/31/18 01:59 Reaction Details fentanyl Allergy Dizziness Verified 01/31/18 01:59 imipramine Allergy Unknown Verified 01/31/18 01:59 Reaction Details Iodinated Contrast- Oral and Allergy Unknown Verified 01/31/18 01:59 IV Dye Reaction Details misoprostol Allergy Unknown Verified 01/31/18 01:59 Reaction Details naproxen Allergy Unknown Verified 01/31/18 01:59 Reaction Details nitrofurantoin Allergy Unknown Verified 01/31/18 01:59 Reaction Details theophylline Allergy Unknown Verified 01/31/18 01:59 Reaction Details tiagabine Allergy Unknown Verified 01/31/18 01:59 Reaction Details tizanidine Allergy Unknown Verified 01/31/18 01:59 Reaction Details contrast dye Allergy Dizziness Uncoded 01/31/18 01:59 PMH/Surg Hx/FS Hx/Imm Hx Previously Healthy: No Endocrine/Hematology History: Reports: Hx Thyroid Disease - nonspecified, Hx Anemia Denies: Hx Diabetes Cardiovascular History: Reports: Hx Angina, Hx Hypercholesterolemia Denies: Hx Coronary Artery Disease, Hx Hypertension, Hx Myocardial Infarction , Hx Pacemaker/ICD, Hx Valvular Heart Disease Respiratory History: Reports: Hx Asthma, Hx Pneumonia, Hx Sleep Apnea Denies: Hx Chronic Obstructive Pulmonary Disease (COPD) GI History: Reports: Hx Gastroesophageal Reflux Disease, Hx Gastrointestinal Bleed, Hx Ulcer History: Reports: Hx Renal Disease - stage 3 CKD Denies: Hx Dialysis Musculoskeletal History: Reports: Hx Arthritis, Hx Back Problems, Hx Fibromyalgia Sensory History: Reports: Hx Cataracts, Hx Hearing Aid - R side only, Hx Hearing Problem Denies: Hx Contacts or Glasses Opthamlomology History: Reports: Hx Cataracts Denies: Hx Contacts or Glasses Neurological History: Reports: Hx Headaches Denies: Hx Dementia, Hx Seizures Psychiatric History: Reports: Other Psychiatric Issues/Disorders - claustrophobia Denies: Hx Panic Disorder - Surgical History Surgery Procedure, Year, and Place: TSP -LSP [facility] RODS/SCREWS- 2010 - - TOTAL OF 5 SURGERIES LAST ONE 2010 Xs 2. BILATERAL HIP REPLACEMENT . TARSAL TUNNEL - Lt WART -REMOVED FROM EYELID. CARPAL TUNNEL - FLORIAN Lt KNEE -2 & Rt KNEE - 3 TIMES - ARTHROSCOPIC. CHOLECYSTECTOMY TONSILECTOMY- as child. HERNIA. APPENDECTOMY. FLORIAN BREAST REDUCTION. Lt THUMB - GANGLION CYST. Rt ARM - "LUMP" REMOVED- Infectious Disease History: No Infectious Disease History: Denies: Traveled Outside the [place] in Last 30 Days - Family History Known Family History: Positive: Cardiac Disease - Father used to use NTG. 3 brothers have had CABG. 4th had CVA and [place]., Diabetes - Social History Occupation: Retired Lives: With Family Alcohol Use: None Alcohol Amount: reports only a couple of drinks 4 times per year Hx Substance Use: Yes Substance Use Type: Reports: Prescribed Hx Tobacco Use: No Smoking Status (MU): Never Smoked Tobacco Review of Systems Positive: Chest Pain Positive: Headache All Other Systems Reviewed And Are Negative: Yes Physical Exam - Summary Physical Exam Summary: Appearance: Well-appearing, Well-nourished, lying in bed comfortably Skin: Warm, dry, no obvious rash Eyes: sclera anicteric, no conjunctival pallor ENT: mucous membranes moist, pharynx appears normal Neck: Supple, nontender Respiratory: Clear to auscultation, no signs of respiratory distress Cardiovascular: Normal S1, S2. No murmurs. Normal distal pulses in tibial and radial bilaterally. Abdomen: Soft, nontender, normal active bowel sounds present Musculoskeletal: Normal, Strength/ROM Intact Neurological: A&Ox3, awake and alert, mentation is normal, speech is fluent and appropriate Psychiatric: affect is normal, does not appear anxious or depressed Triage Information Reviewed: Yes Vital Signs On Initial Exam: Initial Vitals Temp Pulse Resp BP Pulse Ox 97.9 F 89 17 212/88 94 01/31/18 01:55 01/31/18 01:55 01/31/18 01:55 01/31/18 01:55 01/31/18 01:55 Vital Signs Reviewed: Yes Diagnostics - Vital Signs Vital Signs Temp Pulse Resp BP Pulse Ox 01/31/18 01:55 97.9 F 89 17 212/88 94 - Laboratory Result Diagrams: 01/31/18 17:08 01/31/18 03:38 Lab Statement: Any lab studies that have been ordered have been reviewed, and results considered in the medical decision making process. - Radiology CXR Radiology Interpretation Completed By: ED Physician - CXR reveals, per ED physician, no acute disease - Additional Comments Diagnostic Additional Comments: EKG taken at 0159 reveals NSR at 82 BPM, inferior Q waves, P waves and T waves within normal limits, no ischemic changes. This is a normal EKG Chest Pain Course/Dx - Diagnoses Provider Diagnoses: Unstable angina pectoris due to coronary arteriosclerosis, Blood loss anemia, CAD (coronary artery disease) Discharge - Sign-Out/Discharge Documenting (check all that apply): Sign-Out Patient Signing out patient TO: Edmund Boss Receiving patient FROM: Radames Brice - Discharge Plan Condition: Fair Disposition: ADMITTED TO [facility] - Billing Disposition and Condition Condition: FAIR Disposition: Admitted to [facility]
[2018-01-31 03:46] LABS: ABS Basophils 0.1 10^3/ul (0-0.2); ABS Eosinophils 0.2 10^3/ul (0-0.6); ABS Lymphocytes 1.1 10^3/ul (1.0-4.8); ABS Monocytes 0.7 10^3/ul (0-0.8); ABS Neutrophils 5.1 10^3/ul (1.5-7.7); ABS Nucleated RBC 0 10^3/ul; Eosinophil % 2.2 % (0-6); Hematocrit 22 % (35-47); Hemoglobin 7.6 g/dl (12.0-16.0); Lymphocyte % 15.9 % (25-47); Mean Corpuscular HGB Conc 34 g/dl (31-36); Mean Corpuscular Hemoglobin 32 pg (27-31); Mean Corpuscular Volume 93 fL (80-97); Mean Platelet Volume 7.1 um3 (7.4-10.4); Nucleated Red Blood Cells % 0; Platelet Count 189 10^3/ul (150-450); Red Blood Count 2.38 10^6/ul (4.00-5.40); Red Cell Distribution Width 16 % (10.5-15); White Blood Count 7.1 10^3/ul (3.5-10.8)
[2018-01-31 04:02] LABS: EGFR Non-African American 43.9 (>60)
--- NOTE | 2018-01-31 07:06 | ED ---
Progress - Progress Note Progress Note: repeat trop back, elevated from .02 to .03 at 0638. Re-Evaluation - Re-Evaluation First Eval Re-Evaluation Time: 07:10 Change: Improved - Obtained pt background. Pt is currently pain free. Course/Dx - Course Course Of Treatment: 77-year-old female with known cardiac disease and a recent stent showing 60% lesion in her LAD presents with angina. She has no elevation of troponin but relief with nitroglycerin 3 episodes. She has dropped her hemoglobin 1 g in a week. She is bruised head to toe. Given her LAD lesion her anemia likely is causative of angina. She'll be transfused, admitted for further. Discussed with Dr. Gregory who will admit. - Diagnoses Provider Diagnoses: Unstable angina pectoris due to coronary arteriosclerosis, Blood loss anemia, CAD (coronary artery disease) - Provider Notifications Discussed Care Of Patient With: Shanda Gregory Time Discussed With Above Provider: 07:30 Instructed by Provider To: Other - Dr. Gregory accepted admission to [facility] [place] [place] - Critical Care Time Critical Care Time: 30-74 min - Critical care time is exclusive of separately billable procedures Discharge - Sign-Out/Discharge Documenting (check all that apply): Patient Departure - Admit - Discharge Plan Condition: Fair Disposition: ADMITTED TO [facility] Referrals: Manas Villeda MD [Primary Care Provider] - - Billing Disposition and Condition Condition: FAIR Disposition: Admitted to [facility]
[2018-01-31] MEDS ORDERED: HYDROcodone/ACETAMIN 5-325 MG* 1 TAB PO ONE (07:42)
[2018-01-31] MEDS ORDERED: Nitroglycerin TAB 0.4 MG* 0.4 MG TAB SL PRN (08:27)
[2018-01-31] MEDS ORDERED: Albuterol 2.5 MG/3 ML NEB.SOL* (0.083%) INH PRN (08:27)
[2018-01-31] MEDS ORDERED: Acetaminophen TAB* 325 MG PO PRN (08:27)
[2018-01-31] MEDS ORDERED: Fluticasone-Salmeterol 500-50* DISKUS INH SCH (09:00)
[2018-01-31] MEDS: Fluticasone/Vilanterol MDI(NF) 100/25 MDI INH SCH (09:52)
[2018-01-31] MEDS: Fluticasone HFA 110 mcg(NF) MDI INH SCH (09:52)
[2018-01-31] MEDS: Vitamin THERAPEUTIC TAB PO SCH (10:01)
[2018-01-31] MEDS: Ticagrelor* 90 MG TAB PO SCH ×2 (10:02→20:20)
[2018-01-31] MEDS: Montelukast Sodium TAB* 10 MG PO SCH (10:02)
[2018-01-31] MEDS: Aspirin EC TAB* 81 MG TAB.EC PO SCH (10:02)
[2018-01-31] MEDS: amLODIPine TAB* 5 MG PO SCH (10:03)
[2018-01-31] MEDS: Docusate CAP* 100 MG PO SCH ×2 (10:04→20:21)
[2018-01-31] MEDS: Metoprolol Succinate XL TAB* 50 MG PO SCH ×2 (10:05→20:19)
[2018-01-31] MEDS: Ferrous Sulfate TAB* 325 MG PO SCH (10:05)
[2018-01-31] MEDS: Amiodarone TAB* 200 MG PO SCH (10:06)
[2018-01-31] MEDS: Omeprazole CAP* 20 MG PO SCH ×2 (10:06→17:44)
[2018-01-31] MEDS: Lisinopril TAB* 10 MG PO SCH (10:11)
[2018-01-31] MEDS: Isosorbide Mononitrate ER TAB* 60 MG PO SCH (12:19)
[2018-01-31] MEDS: Torsemide TAB* 20 MG PO SCH (12:19)
[2018-01-31] MEDS: Senna TAB PO SCH ×2 (12:19→20:20)
[2018-01-31] MEDS: CMCS Ranolazine (NF) 500 MG TAB PO SCH ×2 (12:19→20:20)
[2018-01-31] MEDS: Ezetimibe TAB* 10 MG PO SCH (12:20)
[2018-01-31] MEDS: Levothyroxine TAB* 175 MCG TAB PO SCH (12:20)
--- NOTE | 2018-01-31 12:29 | HP ---
CC: Dr. Villeda; Dr. Delgado * HISTORY AND PHYSICAL: DATE OF ADMISSION: 01/31/18 PRIMARY CARE PROVIDER: Dr. Villeda. SOFTWARE ENGINEER DEVELOPER: Dr. Delgado. CHIEF COMPLAINT: Chest pain. HISTORY OF PRESENT ILLNESS: Ms. Martin is a 77-year-old female who was admitted initially to [facility] on 01/21/18 and discharged on 01/27/18 after being treated for unstable angina. The patient presented with what she described as her typical anginal symptoms at that time, which starts with a headache with pain radiating down to her mouth then to her arms bilaterally. The patient suffered 7 episodes of angina at home prior to presenting to the emergency room. She ultimately presented on 01/21/18 and was found to bump her troponin to a peak of 0.27. The patient has baseline anemia, which was concerning for taking the patient to the catheterization lab where she could end up on dual antiplatelet therapy. Because of this, the patient underwent EGD, which revealed a gastric polyp; however, it was felt to have low risk of bleeding and the patient proceeded cardiac catheterization. Catheterization revealed the left main to have no significant stenosis. The LAD had calcification seen in its proximal and mid segment. The mid segment of the artery appeared to have narrowing as much as 55% to 60%. The circumflex artery was a nondominant vessel supplying a small first and second obtuse marginal branch with slightly larger third and more dominant low lying obtuse marginal branch to the inferior lobe posterior apical region. The proximal portion of the circumflex artery had an area of luminal reduction of approximately 40%. Past this point was a dissected area focal in nature with stenosis that appeared to be 85% to 90%, hazy in nature suggesting an acute lesion. Past this point and in between the second to last and the last obtuse marginal branch was an area of diffuse disease, noted to be eccentric in nature, appearing as much as 60% in its worst view. The right coronary artery was totally occluded at its ostium with filling of only a high acute marginal branch. Collateral blood flow was seen to the right coronary artery through the left coronary artery system. There was retrograde filling up the right coronary artery to the proximal area. The patient with these findings underwent drug-eluting stent placement to the 85% to 90% mid circumflex lesion. The patient states that following heart catheterization, she did have an episode of angina the day after the stent was placed. She states she discussed this with her providers. She ultimately was discharged home on 01/27/18. This past , 01/29/18, she states that she had 2 mild headaches, again which is typically how her angina begins. She sat down and the headaches resolved. On 01/30/18, the patient was in bed and approximately 10:15 p.m. had an anginal attack. She states she took 1 nitroglycerin and the discomfort went away. Approximately 30 minutes later, she had another attack and again took 1 nitroglycerin, again the symptoms went away. At approximately 11:45 p.m., the patient had another anginal attack, again took 1 nitroglycerin and called her to bring her to the emergency room for evaluation. Since being in the emergency room, the patient has had no complaints of headache. She has had no arm or chest pain. At this point, she states that she is feeling okay. Lab work obtained in the emergency room reveals her hemoglobin to be low at 7.6. This is 1 full point lower than when it was last checked on 01/26/18. It was felt that perhaps her anemia was making her coronary artery disease symptomatic. Because of this, the hospitalist service was asked to admit the patient for further evaluation and treatment. PAST MEDICAL HISTORY: 1. Asthma. 2. Lymphedema. 3. Obstructive sleep apnea, not utilizing CPAP. 4. Atrial fibrillation. 5. Chronic anemia of unclear etiology, though she is on iron supplementation. 6. RLS. 7. Central tremor. 8. Chronic pain. 9. GERD. 10. Chronic respiratory failure, on 2 L of O2 with sleep. 11. Esophageal spasm. 12. Hypothyroidism. 13. Coronary artery disease. 14. History of gastric ulcer and upper GI bleed, 2017. 15. Fibromyalgia. PAST SURGICAL HISTORY: 1. Bilateral hip replacements. 2. Left eyelid surgery. 3. Five back surgeries including 2 fusions and 2 fusion revisions. 4. Right arm surgery to remove lump. 5. Left thumb ganglion cyst removal. 6. Breast reduction. 7. Tarsal tunnel of the left heel. 8. Arthroscopic knee surgery on the left x2, arthroscopic knee surgery on the right x3. 9. Cholecystectomy. 10. Appendectomy. 11. Umbilical hernia repair. MEDICATIONS: 1. Ranitidine 150 mg p.o. q.h.s. 2. Vitamin B complex 1 cap p.o. daily. 3. Venlafaxine 37.5 mg p.o. q.h.s. 4. Torsemide 10 mg p.o. daily. 5. Brilinta 90 mg p.o. twice daily. 6. Shark cartilage 2 tabs p.o. twice daily. 7. Senna 8.6 mg p.o. twice daily. 8. Ranexa 500 mg p.o. twice daily. 9. Primidone 100 mg p.o. q.h.s. 10. Pramipexole 2 mg p.o. q.h.s. 11. Omeprazole 40 mg p.o. b.i.d. 12. Nitroglycerin 0.4 mg SL q.5 minutes p.r.n. chest pain. 13. Multivitamin 1 tab p.o. daily. 14. Singulair 10 mg p.o. daily. 15. Metoprolol XL 50 mg p.o. twice daily. 16. Lisinopril 10 mg p.o. daily. 17. Levothyroxine 175 mcg p.o. daily. 18. Levocetirizine 5 mg p.o. daily. 19. Imdur 120 mg p.o. daily. 20. Hydrocodone/APAP 10/325 one to two tabs p.o. q.4 hours p.r.n. pain. 21. Breo Ellipta 100/25 one puff inhaled daily. 22. Advair 500/50 one puff inhaled twice daily only if she runs out of Breo. 23. Flonase 2 squirts to both nostrils twice daily. 24. Flovent 1 puff inhaled daily. 25. Ferrous sulfate 325 mg p.o. daily. 26. Zetia 10 mg p.o. daily. 27. Repatha SureClick 140 mg subcutaneous q.2 weeks. 28. Colace 200 mg p.o. b.i.d. 29. Vitamin D 1 tab p.o. daily. 30. Caltrate 600 plus D 1 tab p.o. twice daily. 31. Aspirin 81 mg p.o. daily. 32. Amlodipine 10 mg p.o. daily. 33. Amitriptyline 10 mg p.o. q.h.s. 34. Amiodarone 200 mg p.o. daily. 35. Albuterol 2 puffs inhaled 4 times a day p.r.n. shortness of breath. 36. Albuterol neb 1 neb inhaled 4 times daily p.r.n. shortness of breath. 37. Tylenol 650 mg p.o. q.6 hours p.r.n. pain. ALLERGIES: STATINS, AMITRIPTYLINE, FENTANYL, IMIPRAMINE, CONTRAST DYE, MISOPROSTOL, NAPROXEN, NITROFURANTOIN, THEOPHYLLINE, TIAGABINE, TIZANIDINE. FAMILY HISTORY: Mom at the age of 84 from coronary artery disease. Dad in his 80s from coronary artery disease. SOCIAL HISTORY: The patient is . She does not smoke. She lives with her . She indicates that her is her healthcare proxy. REVIEW OF SYSTEMS: A complete 11-system review of systems is obtained. Pertinent positives and negatives are as per HPI and otherwise negative. PHYSICAL EXAMINATION GENERAL: The patient is a well-developed, obese, elderly female, seen sitting up in the stretcher, in no acute distress. VITAL SIGNS: Blood pressure 159/54, pulse 74, respirations 22, temp 97.9, O2 sat 99%. HEENT: Pupils are equal and round. Extraocular muscles are intact. Oropharynx is clear. The patient is edentulous on the top and has only a few remaining teeth on the bottom. NECK: There is no submandibular, cervical, or supraclavicular adenopathy. Thyroid is not enlarged. No thyroid nodules noted. PULMONARY: Lungs are clear to auscultation bilaterally. CARDIAC: Normal S1, S2. Regular rate and rhythm. I do not appreciate any murmurs. There is trace bilateral lower extremity pitting edema. ABDOMEN: Bowel sounds are present. Abdomen is soft, nontender, nondistended. MUSCULOSKELETAL: There is no cyanosis or clubbing of the digits. There is full active range of motion of all 4 extremities. SKIN: Warm and dry. There are no rashes. There is a deep purple bruise noted to the posterior aspect of the left upper arm, a fading bruise to the posterior aspect of the right upper arm. There is a very large bruise noted in the right groin, over the mons pubis, into the lower abdominal wall and into the thigh. This appears to be resolving. NEURO: Cranial nerves II through XII are grossly intact. Sensation is intact to light touch throughout. Strength is 5/5 and symmetric in both upper and lower extremities bilaterally. PSYCH: The patient is alert. She is oriented x3. She has somewhat of a flat affect. DIAGNOSTIC STUDIES/LAB DATA: WBC 7.1, hemoglobin 7.6, hematocrit 22, platelets 189. Sodium 137, potassium 4.8, chloride 107, CO2 of 25, BUN 28, creatinine 1.19, glucose 157, lactic acid 0.9, calcium 8.6. Bilirubin 0.5, AST 16, ALT 12, alk phos 71. Troponin 0.02. Albumin 3.2. EKG reveals normal sinus rhythm with ST depressions in the lateral leads, T- wave inversion in the inferior leads. The T-wave inversions appear to be unchanged; however, the ST depressions appeared to be more significant in the lateral leads. Chest x-ray appears to my interpretation to be a poor inspiratory film without any acute findings. ASSESSMENT AND PLAN: Ms. Martin is a 77-year-old female who was recently admitted and treated for unstable angina with a drug-eluting stent to a mid circumflex lesion, complicated by a large groin hematoma, who now presents back to the emergency room with again several episodes of angina at home. 1. Chest pain. At this point, the etiology of her chest pain is not completely clear. I doubt that she has had progression in such a short period of time of her underlying coronary artery disease; however, the patient is more anemic now than she was prior to her last hospitalization and even when she was discharged from the hospital. Perhaps, her anemia is making her symptomatic at this point. The patient has been ordered 1 unit of packed red blood cells through the emergency room and this will be transfused. Additionally, however, there does appear to be an interaction between her primidone and Brilinta. The primidone, which is a CY inducer may decrease serum concentrations of the active metabolites of Brilinta. The combination of medications is recommended to be avoided. Perhaps, the Brilinta has not been as effective as it should be because of the interaction with primidone. I will ask for a Cardiology consultation given the patient's complicated history. 2. Anemia. Again, the patient has baseline chronic anemia; however, her baseline hemoglobin runs between 9 to 10. Her hemoglobin dropped to a low of 6.1 on 01/24/18. She received 4 units of packed red blood cells during her admission bringing her hemoglobin up to 8.6 on 01/26/18. Again today, her hemoglobin is 7.6. She is receiving 1 unit of packed red blood cells. I suspect the patient's worsened anemia is secondary to acute blood loss anemia in the setting of chronic anemia that has not been clearly delineated. 3. Stage 3 chronic kidney disease. The patient has baseline chronic kidney disease with a creatinine around 1.4 to 1.6. Her creatinine today is 1.19. This will need to be monitored closely. 4. Atrial fibrillation. The patient remains on metoprolol XL and amiodarone. She is not on anticoagulation given her history of anemia and GI bleeding last year. 5. Restless legs syndrome. We will continue pramipexole. 6. Chronic pain/fibromyalgia. We will continue p.r.n. hydrocodone. 7. Hypothyroidism. Continue current dose of Synthroid. 8. Gastroesophageal reflux disease. Continue omeprazole. 9. Coronary artery disease as above. We will work up for chest pain now. She will otherwise be continued on her Brilinta, Ranexa, p.r.n. nitroglycerin, metoprolol XL, lisinopril, Imdur, Zetia, and aspirin. 10. Hyperlipidemia. The patient will continue on her Zetia. She also utilizes Repatha. Her lipids were checked last hospitalization and were favorable with a total cholesterol of 141, LDL of 67, HDL 38.2, and triglycerides 181. 11. Depression. Continue amitriptyline and venlafaxine. 12. DVT prophylaxis. According to the Adult Thrombosis Prophylaxis Risk Factor Assessment guide, the patient has a total risk factor score of 4 making her high risk. SCDs for now will be utilized as DVT prophylaxis as there is concern in the drop of her hemoglobin. 13. Code status is full and again, the patient indicates that her is her healthcare proxy. TIME SPENT: Sixty-five minutes were spent admitting this patient, greater than half was spent [id number] with the patient and her reviewing her history and performing physical exam. [id number]/[facility] #: [id number] PAMELA
--- NOTE | 2018-01-31 13:17 | RAD ---
INDICATION: Chest pain COMPARISON: Most recent comparison chest x-rays dated January 24, 2018 TECHNIQUE: Single AP portable view of the chest was obtained. FINDINGS: Image quality is compromised due to the relative inferiority of a portable chest x-ray. The heart and mediastinum exhibit normal size and contour. The lungs are grossly clear. There is no evidence of a large pleural effusion. Visualized bones are normal for the patient's age. IMPRESSION: No radiographic evidence for acute cardiopulmonary abnormality on this portable chest x-ray.
--- NOTE | 2018-01-31 16:11 | CONS ---
CC: You Delgado DO; Dr. Manas Villeda CARDIOLOGY CONSULTATION: DATE OF CONSULT: 01/31/18 REFERRAL PHYSICIAN: Shanda Gregory DO REASON FOR CARDIOLOGY CONSULTATION: Chest pain in patient with recent PCI. HISTORY OF PRESENT ILLNESS: I was kindly asked to see this patient for Cardiology consultation as she has been having nitrate-responsive chest pain with recent PCI. Ms. Martin is a pleasant 77-year-old woman, recently admitted to the hospital on 01/21/18 with unstable angina. She had cardiac catheterization with drug- eluting stent placed to left circumflex vessel on 01/24/18. There was also concern for bleeding as she has history of anemia and GI bleeding. The patient states she was discharged on 01/27/18. Since being home, she has had 5 total episodes of chest pain including yesterday, all of which resolved with nitroglycerin sublingual. She called me last night as she was having chest pain at night and I recommended she come to the emergency room where she has been found to be anemic and admitted to [facility]. Currently, she has no chest pain. PAST MEDICAL HISTORY: Significant for: 1. Asthma. 2. Chronic lymphedema. 3. Obstructive sleep apnea, for which she uses O2 at night, but not CPAP. 4. Atrial fibrillation, not on anticoagulation, but is maintained on amiodarone. 5. Restless legs syndrome. 6. Central tremor. 7. Chronic pain. 8. GERD. 9. Hypothyroidism. 10. Coronary artery disease.The patient's cardiac catheterization completed on 01/24/18 demonstrated normal left main, LAD with mid up to 55% to 60% lesion, circumflex with approximate 85% to 90% lesion and RCA totally occluded, which was known. She had drug-eluting stent with 3.0 x 12 mm Synergy drug-eluting stent placed in her left circumflex 85% to 90% lesion, which was felt critical. She had a transthoracic echocardiogram completed on 01/25/18, which showed low normal left ventricular ejection fraction of 50% to 55% with mild to moderate left atrial dilatation, mild right atrial dilatation, mild tricuspid regurgitation with moderate pulmonary hypertension similar to prior echocardiogram completed on 10/14/16. 11. Peptic ulcer disease. 12. Gastric ulcer, complicated by upper GI bleed in 2017. 13. Fibromyalgia. 14. Esophageal spasm. 15. Chronic respiratory failure. OUTPATIENT MEDICATIONS: 1. Zantac 150 mg p.o. q.h.s. 2. Pramipexole 2 mg 2 tablets q.h.s. 3. Vitamin D 1 tablet once a day. 4. Aspirin 81 mg once a day. 5. Shark cartilage 1000 mg b.i.d. 6. Flovent 1 puff daily. 7. Breo Ellipta 1 puff daily. 8. Elavil 10 mg p.o. q.h.s. 9. Amiodarone 200 mg once a day. 10. Synthroid 175 mcg once a day. 11. Albuterol inhaler p.r.n. 12. Effexor 37.5 mg p.o. q. day. 13. Primidone 100 mg p.o. q.h.s. 14. Singulair 10 mg once a day. 15. Torsemide 10 mg once a day. 16. Omeprazole 40 mg p.o. b.i.d. 17. Zetia 10 mg once a day. 18. Norvasc 10 mg once a day. 19. Imdur 120 mg once a day. 20. Ranexa 500 mg p.o. b.i.d. 21. Repatha 140 mg as directed. 22. Lisinopril 10 mg once a day. 23. Brilinta 90 mg p.o. b.i.d. 24. Toprol-XL 50 mg p.o. b.i.d. The patient had previously been on Plavix prior to her recent PCI. ALLERGIES/INTOLERANCE TO MEDICATIONS: include IODINATED CONTRAST, STATINS, THEOPHYLLINE, MISOPROSTOL, IMIPRAMINE, NAPROXEN, FENTANYL, NITROFURANTOIN, TIZANIDINE, TIAGABINE, MACROBID. FAMILY HISTORY: Her mother at age 84 with CAD. Her father in his 80s from CAD. Also, there is family history of stroke, cancer, and diabetes. SOCIAL HISTORY: She does not smoke cigarettes, abuse alcohol. No use of illicit drugs. She has been for the third time for 30 years after being once and once. 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 She is a high school graduate. She is not able to do exercise due to significant back and hip surgeries with chronic pain. REVIEW OF SYSTEMS: The patient denies personal history of stroke, cancer. She has noted occasional blood in her stool from her rectum as well as from her vagina. This is apparently chronic and occurs once a week. She denies vomiting of blood or coughing of blood. She denies renal calculi, cholelithiasis. She has a history of asthma. She denies emphysema. She has a history of pneumonia , for which she was hospitalized. She denies tuberculosis. She has a history of sleep apnea, for which she does not use CPAP, which she characterizes is mild. She uses oxygen at night. She denies diabetes, hypertension. Recent CAD , PCI as described above. She denies murmur or palpitations. She denies psychiatric illnesses, lupus, psoriasis, seizures, Parkinson's disease, myasthenia gravis. She has a history of hypothyroidism. She denies liver disease. She denies dialysis. She denies claudication symptoms, pulmonary emboli, deep venous thrombosis. She has chronic lymphedema. She does not heartburn. All other review of systems are negative x14, except as described above. PHYSICAL EXAMINATION: Height 5 feet 1 inch, weight 255 pounds. Temperature 98 degrees, pulse is 72, O2 saturation 97%, blood pressure 159/54. On general exam , she is elderly lady, in no acute distress. She appears tired. HEENT shows cranium is normocephalic and atraumatic. She has dry mucosal membranes. Neck veins are not distended. There are no carotid bruits. Visible skin warm and perfused; she does echymosses noted including on her forearms. Affect is appropriate. She appears oriented. Mild kyphoscoliosis on recumbent back exam. Lungs are clear to auscultation. No wheezes, no rales. Cardiac Exam: S1 , S2. Regular rate. No significant murmurs, rubs, or gallops. PMI is nondisplaced. Abdomen: Soft, nondistended, appears benign. IExtremities with 2+ chronic lymphedema changes. Pulses appear grossly intact. DIAGNOSTIC STUDIES/LABORATORY DATA: A 12-lead EKG is reviewed, completed on at 1:59 a.m., shows sinus rhythm, nonspecific IVCD, inferior T-wave changes, consider inferior infarct old. Followup EKG appears similar. Sodium 137, potassium 4.8, chloride 107, bicarbonate 25, BUN 28, creatinine 1.19. ALT 12. Troponin 0.02, followed by 0.03, followed by 0.03. White blood cell count 7.1, hematocrit 22, platelet count 189. Her hematocrit recently was in this range including as low as 18 on 01/24/18. Her hematocrit had been 30 on . IMPRESSION: Ms. Martin is a 77-year-old woman with a recent history of accelerated angina, status post left circumflex drug-eluting stent, PCI on 01/24 as described above with normal left ventricular function, now admitted with nitrate- responsive angina. Her angina appears due to her anemia, i.e., demand mediated and there is no evidence of in-stent restenosis. RECOMMENDATIONS: 1. Keep hematocrit greater than 28. Anemia workup as per the hospitalist service. 2. Continue aspirin, Brilinta for minimum of 1 year, Demadex for chronic lymphedema, Toprol-XL, lisinopril, and long-acting nitrates. I will defer that to the patient's primary crawler tractor operator, Dr. Delgado as she has been apparently maintained on both Ranexa and Imdur. She will continue chronic amiodarone for atrial fibrillation and she is not felt to be a candidate for anticoagulation; she is maintaining sinus rhythm now. She is intolerant of statin, so she will continue Repatha and Zetia. 3. The patient should follow up with her usual crawler tractor operator, Dr. Delgado, postdischarge. 4. Recommend discontinuation of primidone as it does decrease Brilinta levels. 5. May follow hypertension and if her blood pressure will be persistently elevated, would recommend increasing Toprol-XL as required followed by lisinopril increase. The above was discussed in detail with the patient and she seems to be in agreement with these recommendations. The case has also been discussed with Dr. Shanda Gregory. Dear Dr. Shanda Gregory, many thanks for asking me to participate in the cardiovascular consultative care of Ms. Martin. Please do not hesitate to contact me if you have any questions or concerns regarding the patient's cardiovascular consultative care. [id number]/[facility] #: [id number] [facility] [place] [facility]
[2018-01-31 17:24] LABS: Hematocrit 27 % (35-47); Hemoglobin 9.1 g/dl (12.0-16.0)
[2018-01-31] MEDS: Hydrocodone/Acetamin 10/325 1 TAB PO PRN ×2 (19:41→23:52)
[2018-01-31] MEDS: Pramipexole TAB* 0.5 MG PO SCH (20:18)
[2018-01-31] MEDS: Primidone TAB(*) 50 MG PO SCH (20:19)
[2018-01-31] MEDS: Amitriptyline TAB* 10 MG PO SCH (20:19)
[2018-01-31] MEDS: Famotidine TAB* 20 MG PO SCH (20:19)
[2018-01-31] MEDS ORDERED: Venlafaxine EXT RELEASE CAP* 37.5 MG PO SCH (21:00)
[2018-01-31] MEDS ORDERED: Artificial Tears* 15 ML BTL BOTH EYES PRN (22:01)
[2018-01-31] MEDS: Fluticasone NASAL SPRAY 50MCG* 16 gm SPRAY BTL BOTH NARES SCH (22:41)
[2018-02-01] MEDS: Hydrocodone/Acetamin 10/325 1 TAB PO PRN ×4 (03:49→20:43)
[2018-02-01 05:29] LABS: Hematocrit 26 % (35-47); Mean Corpuscular HGB Conc 34 g/dl (31-36); Mean Corpuscular Hemoglobin 30 pg (27-31); Mean Corpuscular Volume 89 fL (80-97); Platelet Count 187 10^3/ul (150-450); Red Blood Count 2.95 10^6/ul (4.00-5.40); Red Cell Distribution Width 18 % (10.5-15); White Blood Count 6.3 10^3/ul (3.5-10.8)
[2018-02-01 05:43] LABS: EGFR Non-African American 43.4 (>60)
[2018-02-01] MEDS: Levothyroxine TAB* 175 MCG TAB PO SCH (06:03)
[2018-02-01] MEDS: Fluticasone HFA 110 mcg(NF) MDI INH SCH (07:41)
[2018-02-01] MEDS: Fluticasone/Vilanterol MDI(NF) 100/25 MDI INH SCH (07:41)
[2018-02-01] MEDS: amLODIPine TAB* 5 MG PO SCH (08:05)
[2018-02-01] MEDS: Omeprazole CAP* 20 MG PO SCH ×2 (08:05→17:07)
[2018-02-01] MEDS: Amiodarone TAB* 200 MG PO SCH (08:05)
[2018-02-01] MEDS: Isosorbide Mononitrate ER TAB* 60 MG PO SCH (08:06)
[2018-02-01] MEDS: Ferrous Sulfate TAB* 325 MG PO SCH (08:06)
[2018-02-01] MEDS: Docusate CAP* 100 MG PO SCH ×2 (08:06→20:34)
[2018-02-01] MEDS: Aspirin EC TAB* 81 MG TAB.EC PO SCH (08:06)
[2018-02-01] MEDS: Lisinopril TAB* 10 MG PO SCH (08:07)
[2018-02-01] MEDS: Montelukast Sodium TAB* 10 MG PO SCH (08:07)
[2018-02-01] MEDS: Metoprolol Succinate XL TAB* 50 MG PO SCH ×2 (08:07→20:36)
[2018-02-01] MEDS: Senna TAB PO SCH ×2 (08:07→20:36)
[2018-02-01] MEDS: Torsemide TAB* 20 MG PO SCH (08:08)
[2018-02-01] MEDS: Ticagrelor* 90 MG TAB PO SCH ×2 (08:08→20:36)
[2018-02-01] MEDS: Vitamin THERAPEUTIC TAB PO SCH (08:08)
--- NOTE | 2018-02-01 09:05 | PN ---
Subjective Date of Service: 02/01/18 Interval History: Pt is feeling ok. She has not been ambulating much since her admission. She has had no further episodes of chest pain. No c/o SOB at this time. She is worried about going home with her H/H not stable and at goal and then needing to come back for recurrent CP or blood transfusion. Objective Active Medications: Acetaminophen (Tylenol Tab*) 650 mg PO Q6HR PRN PRN Reason: PAIN Hydrocodone Bitart/Acetaminophen ([place] 10/325 (Nf)) 1 tab PO Q4HR PRN PRN Reason: PAIN Last Admin: 02/01/18 03:49 Dose: 1 tab Albuterol (Ventolin 2.5 Mg/3 Ml Neb.Raiza*) 2.5 mg INH QID PRN PRN Reason: SHORTNESS OF BREATH Amiodarone HCl (Cordarone Tab*) 200 mg PO DAILY [facility] Last Admin: 02/01/18 08:05 Dose: 200 mg Amitriptyline HCl (Elavil Tab*) 10 mg PO BEDTIME [facility] Last Admin: 01/31/18 20:19 Dose: 10 mg Amlodipine Besylate (Norvasc Tab*) 10 mg PO DAILY [facility] Last Admin: 02/01/18 08:05 Dose: 10 mg Aspirin (Aspirin Ec Tab*) 81 mg PO DAILY [facility] Last Admin: 02/01/18 08:06 Dose: 81 mg Docusate Sodium (Colace Cap*) 200 mg PO BID [facility] Last Admin: 02/01/18 08:06 Dose: 200 mg Ezetimibe (Zetia Tab*) 10 mg PO DAILY [facility] Last Admin: 01/31/18 12:20 Dose: 10 mg Famotidine (Pepcid Tab*) 20 mg PO BEDTIME [facility] Last Admin: 01/31/18 20:19 Dose: 20 mg Ferrous Sulfate (Ferrous Sulfate Tab*) 325 mg PO DAILY [facility] Last Admin: 02/01/18 08:06 Dose: 325 mg Fluticasone Propionate (Flovent Hfa 110 Mcg(Nf)) 1 puff INH DAILY [facility] Last Admin: 02/01/18 07:41 Dose: Not Given Fluticasone Propionate (Flonase Nasal [place] 50mcg*) 2 spray BOTH NARES DAILY [facility] Last Admin: 01/31/18 22:41 Dose: 2 spray Fluticasone/Vilanterol (Breo Ellipta Mdi 100/25(Nf)) 1 puff INH DAILY [facility] Last Admin: 02/01/18 07:41 Dose: Not Given Isosorbide Mononitrate (Imdur Er Tab*) 120 mg PO DAILY [facility] Last Admin: 02/01/18 08:06 Dose: 120 mg Levothyroxine Sodium (Synthroid Tab*) 175 mcg PO 0600 [facility] Last Admin: 02/01/18 06:03 Dose: 175 mcg Lisinopril (Prinivil Tab*) 10 mg PO DAILY [facility] Last Admin: 02/01/18 08:07 Dose: 10 mg Metoprolol Succinate (Toprol Xl Tab*) 50 mg PO BID [facility] Last Admin: 02/01/18 08:07 Dose: 50 mg Montelukast Sodium (Singulair Tab*) 10 mg PO DAILY [facility] Last Admin: 02/01/18 08:07 Dose: 10 mg Multivitamins (Theragran Tab*) 1 tab PO DAILY [facility] Last Admin: 02/01/18 08:08 Dose: 1 tab Nitroglycerin (Nitroglycerin Tab 0.4 Mg*) 0.4 mg SL Q5M PRN PRN Reason: PAIN - CHEST Omeprazole (Prilosec Cap*) 40 mg PO 0730,1630 [facility] Last Admin: 02/01/18 08:05 Dose: 40 mg Polyvinyl Alcohol (Polyvinyl Alcohol 1.4% Opth*) 1 drop BOTH EYES Q2H PRN PRN Reason: DRY EYE Last Admin: 01/31/18 22:41 Dose: 1 drop Pramipexole Dihydrochloride (Mirapex Tab*) 2 mg PO BEDTIME [facility] Last Admin: 01/31/18 20:18 Dose: 2 mg Primidone (Mysoline Tab(*)) 100 mg PO BEDTIME [facility] Last Admin: 01/31/18 20:19 Dose: 100 mg Ranolazine (Ranexa (Nf)) 500 mg PO BID [facility]; Protocol Last Admin: 01/31/18 20:20 Dose: 500 mg Senna (Senokot Tab*) 1 tab PO BID [facility] Last Admin: 02/01/18 08:07 Dose: 1 tab Ticagrelor (Brilinta*) 90 mg PO BID [facility] Last Admin: 02/01/18 08:08 Dose: 90 mg Torsemide (Demadex*) 10 mg PO DAILY [facility] Last Admin: 02/01/18 08:08 Dose: 10 mg Venlafaxine HCl (Effexor Xr Cap*) 37.5 mg PO BEDTIME [facility] Last Admin: 01/31/18 20:20 Dose: 37.5 mg Vital Signs - 8 hr 02/01/18 02/01/18 02/01/18 02:05 03:49 06:00 Temperature 97.8 F Pulse Rate 63 Respiratory 16 20 16 Rate Blood Pressure 146/60 (mmHg) O2 Sat by Pulse 99 Oximetry Oxygen Devices in Use Now: None Appearance: Elderly obese female sitting up in a chair, eating breakfast, NAD Eyes: No Scleral Icterus Ears/Nose/Mouth/Throat: Mucous Membranes Moist Respiratory: Symmetrical Chest Expansion and Respiratory Effort, Clear to Auscultation Cardiovascular: - - 1-2+ LE edema, bruising noted to R groin/thigh Abdominal: NL Sounds; No Tenderness; No Distention Extremities: No Clubbing, Cyanosis Skin: No Nodules or Sclerosis Neurological: Alert and Oriented x 3 Result Diagrams: 02/01/18 05:17 02/01/18 05:17 Assess/Plan/Problems-Billing Ms Martin is a 77 yo F with numerous medical conditions who was recently admitted for unstable angina and received a stent to the circumflex artery who returned to the ER on 01/31/18 with c/o several episodes of nitrate responsive chest pain. - Patient Problems (1) Chest pain Current Visit: Yes Status: Acute Priority: High Code(s): R07.9 - CHEST PAIN, UNSPECIFIED SNOMED Code(s): 88685139 Comment: Likely secondary to hemodynamically significant anemia and recent unstable angina requiring a stent to the circumflex. Continue brilinta, ASA. Chest pain has resolved but her H/H remains low. Will transfuse 1 more unit PRBC to try to achieve a Hct of >28. Will also get pt up and walking to monitor for chest pain with exertion. Likely d/c home tomorrow AM after ensuring her H/ H is stable. (2) Atrial fibrillation Current Visit: Yes Status: Acute Code(s): I48.91 - UNSPECIFIED ATRIAL FIBRILLATION SNOMED Code(s): 53888689 Comment: The patient remains on amiodarone and metoprolol and in NSR. No anticoagulation secondary to chronic anemia and h/o gastric ulcer in 2017. (3) Chronic diastolic (congestive) heart failure Current Visit: Yes Status: Acute Code(s): I50.32 - CHRONIC DIASTOLIC ( CONGESTIVE) HEART FAILURE SNOMED Code(s): 305328026 Comment: Pt with chronic LE edema that is essentially at baseline. Will continue torsemide at home dose. (4) Chronic hypoxemic respiratory failure Current Visit: Yes Status: Acute Comment: Pt utilizes O2 with sleep. Continue current inhaler regimen. (5) Chronic pain Current Visit: Yes Status: Acute Code(s): G89.29 - OTHER CHRONIC PAIN SNOMED Code(s): 47673654 Comment: Continue prn norco. (6) Essential tremor Current Visit: Yes Status: Acute Code(s): G25.0 - ESSENTIAL TREMOR SNOMED Code(s): 598883864 Comment: Stopped primidone as it reduces the active metabolites of brilinta and it is recommended to avoid the combination. (7) Hypertension Current Visit: No Status: Chronic Priority: High Code(s): I10 - ESSENTIAL (PRIMARY) HYPERTENSION SNOMED Code(s): 42711323 Comment: BP remains moderately elevated in the 140-[address] Holley recommended increasing metoprolol XL however the patient's HR is already in the 60's at baseline. Will increase lisinopril to 20mg daily. (8) CKD (chronic kidney disease) Current Visit: Yes Status: Chronic Priority: High Code(s): N18.9 - CHRONIC KIDNEY DISEASE, UNSPECIFIED SNOMED Code(s): 528207319 Comment: Stage III CKD. Creatinine is at baseline. (9) HLD (hyperlipidemia) Current Visit: Yes Status: Acute Code(s): E78.5 - HYPERLIPIDEMIA, UNSPECIFIED SNOMED Code(s): 65471009 Comment: Continue repatha and zetia. (10) Hypothyroidism Current Visit: Yes Status: Chronic Priority: High Code(s): E03.9 - HYPOTHYROIDISM, UNSPECIFIED SNOMED Code(s): 81006916 Comment: TSH was elevated last admission and her synthroid was increased to 200mcg daily but she was not sent out on the increased dose. Repeat TSH now and if still up, increase synthroid back to 200mcg daily. (11) RLS (restless legs syndrome) Current Visit: No Status: Chronic Priority: High Comment: Continue mirapex 2mg at bedtime. (12) DVT prophylaxis Current Visit: Yes Status: Acute Code(s): DUN9624 - SNOMED Code(s): 182412699 Comment: SCDs (13) Full code status Current Visit: Yes Status: Acute Code(s): Z78.9 - OTHER SPECIFIED HEALTH STATUS SNOMED Code(s): 050765840
[2018-02-01] MEDS: Fluticasone NASAL SPRAY 50MCG* 16 gm SPRAY BTL BOTH NARES SCH (09:15)
[2018-02-01] MEDS: Ezetimibe TAB* 10 MG PO SCH (09:15)
[2018-02-01] MEDS: CMCS Ranolazine (NF) 500 MG TAB PO SCH ×2 (09:15→20:35)
[2018-02-01] MEDS ORDERED: Lisinopril TAB* 10 MG PO ONE (09:22)
[2018-02-01] MEDS ORDERED: Lisinopril TAB* 10 MG PO SCH (10:00)
[2018-02-01] MEDS: Famotidine TAB* 20 MG PO SCH (20:34)
[2018-02-01] MEDS: Amitriptyline TAB* 10 MG PO SCH (20:34)
[2018-02-01] MEDS: Pramipexole TAB* 0.5 MG PO SCH (20:35)
[2018-02-01] MEDS: Primidone TAB(*) 50 MG PO SCH ×2 (20:36→20:48)
[2018-02-01] MEDS ORDERED: Venlafaxine EXT RELEASE CAP* 37.5 MG PO SCH (21:30)
--- NOTE | 2018-02-01 23:54 | PN ---
Progress Note - Progress Note Date of Service: 02/01/18 Note: Per RN, patient concerned about irritation in groin site where cardiac cath was and is requesting triple abx ointment. Will order mupiricin for now and recommend close follow up.
[2018-02-02] MEDS: Mupirocin 2% OINT* TUBE TOPICAL SCH ×2 (00:09→08:40)
[2018-02-02] MEDS: Hydrocodone/Acetamin 10/325 1 TAB PO PRN ×4 (00:43→13:53)
[2018-02-02] MEDS: Levothyroxine TAB* 175 MCG TAB PO SCH (05:17)
[2018-02-02] MEDS: Fluticasone HFA 110 mcg(NF) MDI INH SCH (08:06)
[2018-02-02] MEDS: Fluticasone/Vilanterol MDI(NF) 100/25 MDI INH SCH (08:06)
[2018-02-02 08:33] LABS: Hematocrit 33 % (35-47); Hemoglobin 11.3 g/dl (12.0-16.0); Mean Corpuscular HGB Conc 34 g/dl (31-36); Mean Corpuscular Hemoglobin 30 pg (27-31); Mean Corpuscular Volume 90 fL (80-97); Mean Platelet Volume 6.8 um3 (7.4-10.4); Platelet Count 245 10^3/ul (150-450); Red Blood Count 3.71 10^6/ul (4.00-5.40); Red Cell Distribution Width 18 % (10.5-15); White Blood Count 6.4 10^3/ul (3.5-10.8)
[2018-02-02] MEDS: Metoprolol Succinate XL TAB* 50 MG PO SCH (08:38)
[2018-02-02] MEDS: Omeprazole CAP* 20 MG PO SCH (08:38)
[2018-02-02] MEDS: Aspirin EC TAB* 81 MG TAB.EC PO SCH (08:38)
[2018-02-02] MEDS: Isosorbide Mononitrate ER TAB* 60 MG PO SCH (08:38)
[2018-02-02] MEDS: Montelukast Sodium TAB* 10 MG PO SCH (08:38)
[2018-02-02] MEDS: Ferrous Sulfate TAB* 325 MG PO SCH (08:39)
[2018-02-02] MEDS: amLODIPine TAB* 5 MG PO SCH (08:39)
[2018-02-02] MEDS: Amiodarone TAB* 200 MG PO SCH (08:39)
[2018-02-02] MEDS: Senna TAB PO SCH (08:39)
[2018-02-02] MEDS: Ticagrelor* 90 MG TAB PO SCH (08:39)
[2018-02-02] MEDS: CMCS Ranolazine (NF) 500 MG TAB PO SCH (08:39)
[2018-02-02] MEDS: Ezetimibe TAB* 10 MG PO SCH (08:39)
[2018-02-02] MEDS: Torsemide TAB* 20 MG PO SCH (08:39)
[2018-02-02] MEDS: Docusate CAP* 100 MG PO SCH (08:39)
[2018-02-02] MEDS: Vitamin THERAPEUTIC TAB PO SCH (08:39)
[2018-02-02] MEDS: Fluticasone NASAL SPRAY 50MCG* 16 gm SPRAY BTL BOTH NARES SCH (08:46)
[2018-02-02 13:47] VITALS: BP 163/60
[2018-02-03] MEDS ORDERED: Lisinopril TAB* 10 MG PO SCH (09:00)
--- NOTE | 2018-02-03 10:52 | DS ---
CC: Dr. Herron; Dr. You Delgado; Dr. Villeda. * DISCHARGE SUMMARY: DATE OF ADMISSION: 01/31/18. DATE OF DISCHARGE: 02/02/18. PRIMARY CARE PROVIDER: Dr. Villeda. JOB COMPOSITOR: Dr. Herron. PRINCIPAL DIAGNOSIS: Angina secondary to marked anemia. SECONDARY DIAGNOSES: 1. Paroxysmal atrial fibrillation. 2. Hyperlipidemia. 3. Chronic anemia. 4. Chronic pain. 5. Coronary artery disease. 6. Hypothyroidism. 7. Hypertension. 8. Chronic diastolic congestive heart failure. DISCHARGE MEDICATIONS: 1. Ranitidine 150 mg p.o. at bedtime. 2. Vitamin B complex one cap p.o. daily. 3. Venlafaxine 37.5 mg p.o. at bedtime. 4. Torsemide 10 mg p.o. daily. 5. Brilinta 90 mg p.o. b.i.d. 6. Shark cartilage two tabs p.o. b.i.d. 7. Senna one tab p.o. b.i.d. 8. Ranexa 500 mg p.o. b.i.d. 9. Mirapex two tabs p.o. at bedtime. 10. Omeprazole 40 mg p.o. b.i.d. 11. Nitroglycerin 0.4 mg SL q.5 minutes p.r.n. chest pain. 12. Multivitamin one cap p.o. daily. 13. Singulair 10 mg p.o. daily. 14. Metoprolol XL 50 mg p.o. b.i.d. 15. Levothyroxine 175 mcg p.o. daily. 16. Levocetirizine 5 mg p.o. daily. 17. Imdur 120 mg p.o. daily. 18. [place] 10/325 one to two tabs p.o. q.4 hours p.r.n. pain. 19. Breo Ellipta 100/25 one puff inhaled daily. 20. Advair 500/50 one puff inhaled daily if out of Breo. 21. Flonase two squirts to both nostrils twice daily. 22. Flovent one puff inhaled daily. 23. Ferrous sulfate 325 mg p.o. daily. 24. Zetia 10 mg p.o. daily. 25. Repatha 140 mg subcutaneous q.2 weeks. 26. Colace 2 caps p.o. b.i.d. 27. Vitamin D 1000 units p.o. daily. 28. Caltrate 600 plus D one tab p.o. twice daily. 29. Aspirin 81 mg p.o. daily. 30. Amlodipine 10 mg p.o. daily. 31. Amitriptyline 10 mg p.o. at bedtime. 32. Amiodarone 200 mg p.o. daily. 33. Albuterol two puffs inhaled 4 times daily p.r.n. shortness of breath. 34. Albuterol one neb inhaled 4 times daily p.r.n. shortness of breath. 35. Tylenol 650 mg p.o. q.6 hours p.r.n. pain. 36. Lisinopril 20 mg p.o. daily. HOSPITAL COURSE: Ms. Martin is a 77-year-old female who was recently admitted from 01/21/18 through 01/27/18 where she was treated for unstable angina and NSTEMI. The patient received a drug-eluting stent to her circumflex artery. The patient developed a significant hematoma post cardiac catheterization and dropped her hemoglobin down to 6.1. The patient received 4 units of packed red blood cells during that admission. The day prior to discharge, the patient's hemoglobin was up to 8.6. 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 This was her typical anginal symptoms, went away with nitroglycerin. Because of this, the patient presented to the emergency room for evaluation. In the ER, the patient was found to be significantly anemic with a hemoglobin of 7.6. The patient was admitted and ultimately transfused 3 units of packed red blood cells. On discharge, the patient's hemoglobin is 11.3 with hematocrit of 33. The patient has had no further episodes of chest pain. Also of note, the patient was on primidone and Brilinta. This is a combination that is recommended to be avoided as the primidone can decrease the active metabolites of Brilinta. This has been stopped. The patient has been ambulating to and from the bathroom, which is a typical distance that she will go at home without any chest pain, dizziness, or any other issues. At this point, it is felt the patient is stable for discharge home. On the day of discharge, the patient is awake, alert, and oriented, sitting up in bed, in no acute distress. Her vital signs were stable. Her blood pressure has been noted to be moderately elevated at this admission and her lisinopril dose was increased. I suspect she is going need further adjustments in her antihypertensive regimen. She is found sitting in a chair, in no acute distress. Cardiac exam reveals a normal S1 and S2 with a regular rate and rhythm. Her lungs are clear. She does have significant swelling and bruising noted to the right thigh. She also has a small area of erythema without any significant skin breakdown, though the patient states this area is extremely painful. The patient will apply bacitracin ointment to the groin and try to allow the skin to be open to air at home. FOLLOWUP CONCERNS: The patient is being discharged home today, 02/02/18. ACTIVITY LEVEL: As tolerated. DIET: Heart healthy. CONDITION ON DISCHARGE: Stable. The patient will follow up with Dr. Herron tomorrow, is already scheduled and with her primary care provider on 02/05/18, is already scheduled. TIME SPENT: Thirty five minutes were spent discharging this patient, of which greater than half was spent [id number] with the patient reviewing her discharge plan and medications. [id number]/[facility] #: [id number] PAMELA
== END 2018-02-02 15:45 | disposition home health service (06) | DRG 812 ==
LOC: ED 01:50 → MEDTELE 08:49 → OBSVTOIN 02-01 11:30
PROVIDERS: ADMIT Hospitalist; ATTEND Hospitalist
PROC: 30233N1 Transfusion of Nonautologous Red Blood Cells into Peripheral Vein, Percutaneous Approach (ICD-10-PCS; principal; 2018-01-31)
DX: D64.9 Anemia, unspecified (principal); I25.1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 native coronary artery with unstable angina pectoris; I50.32 Chronic diastolic (congestive) heart failure; 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 kidney disease with heart failure and stage 1 through stage 4 chronic kidney disease, or unspecified chronic kidney disease; J96.11 Chronic respiratory failure with hypoxia; Z68.42 Body mass index [BMI] 45.0-49.9, adult; R51 Headache; J45.909 Unspecified asthma, uncomplicated; K21.9 Gastro-esophageal reflux disease without esophagitis; N18.3 Chronic kidney disease, stage 3 (moderate); M19.90 Unspecified osteoarthritis, unspecified site; H26.9 Unspecified cataract; F40.240 Claustrophobia; Z96.643 Presence of artificial hip joint, bilateral; G47.33 Obstructive sleep apnea (adult) (pediatric); I89.0 Lymphedema, not elsewhere classified; G25.81 Restless legs syndrome; G89.29 Other chronic pain; E03.9 Hypothyroidism, unspecified; E66.9 Obesity, unspecified; E78.5 Hyperlipidemia, unspecified; F32.9 Major depressive disorder, single episode, unspecified; I48.0 Paroxysmal atrial fibrillation; Z79.02 Long term (current) use of antithrombotics/antiplatelets; Z90.49 Acquired absence of other specified parts of digestive tract; Z82.49 Family history of ischemic heart disease and other diseases of the circulatory system; Z87.11 Personal history of peptic ulcer disease; Z88.5 Allergy status to narcotic agent; Z88.8 Allergy status to other drugs, medicaments and biological substances; Z88.1 Allergy status to other antibiotic agents; Z91.041 Radiographic dye allergy status; Z87.01 Personal history of pneumonia (recurrent); Z97.4 Presence of external hearing-aid; Z83.3 Family history of diabetes mellitus; Z82.3 Family history of stroke; Z95.5 Presence of coronary angioplasty implant and graft; Z79.82 Long term (current) use of aspirin; Z79.51 Long term (current) use of inhaled steroids
CPT/HCPCS: 36415; 71045; 80048; 80053; 83605; 84443; 84484; 85014; 85018; 85025; 85027; 86850; 86870; 86880; 86900; 86901; 86922; 93005; 99285; A9270-GY; G0378; P9040

== ENCOUNTER 2018-04-08 07:36 | Day surgery (SDC) | payer MEDICARE ==
[~2018-04-08 07:36] MED LIST: Acetaminophen TAB* 325 MG PO PRN; Buffered Lidocaine 0.9% SYRIN* 5 ML/SYR SYRINGE INTRADERM ONE
[2018-04-08] MEDS ORDERED: Midazolam* 1 MG/ML 2 ML VIAL (2 MG) ONE (08:45)
[2018-04-08] MEDS ORDERED: Ketorolac 0.5% OPHTH (NF) 0.5 % 5 ML BTL ONE (09:07)
[2018-04-08] MEDS ORDERED: Neomycin/Polymy/Dex OPTH.SUSP* MAXITROL 0.1% 5 ML ONE (09:07)
[2018-04-08] MEDS ORDERED: Cyclopentolate 1% OPTH.SOL* 2 ML BTL ONE (09:07)
[2018-04-08] MEDS ORDERED: acetaZOLAMIDE TAB* 250 MG ONE (09:07)
[2018-04-08] MEDS ORDERED: Povidone Iodine 5% OPTH* 30 ML BTL ONE (09:07)
[2018-04-08] MEDS ORDERED: Lidocaine 1%* 5 ML VIAL ONE (09:07)
[2018-04-08] MEDS ORDERED: Proparacaine 0.5% OPHTH.SOL* 15 ML BTL ONE (09:07)
[2018-04-08] MEDS ORDERED: Lidocaine 2% EPI 1:200000 MPF*10-20 ML VIAL ONE (09:07)
[2018-04-08] MEDS ORDERED: Phenylephrine 2.5% OPTH.SOL* 2 ML BTL ONE (09:07)
[2018-04-08 09:49] VITALS: BP 169/98
--- NOTE | 2018-04-09 00:12 | OP ---
DATE OF OPERATION: 04/08/18 [facility] DATE OF : 38 SURGEON: Brian Smallwood M.D. PREOPERATIVE DIAGNOSIS: Cataract, right eye. POSTOPERATIVE DIAGNOSIS: Cataract, right eye. OPERATIVE PROCEDURE: Extracapsular cataract extraction with intraocular lens implant right eye. DESCRIPTION OF PROCEDURE: The patient was brought to the operating room after being given 1/2% Alcaine with epinephrine drops in the preoperative area. The eye was prepped and draped in the usual sterile fashion. Sterile drape and eyelid speculum were placed. Again, topical 1/2% Alcaine with epinephrine was given. A paracentesis incision was made at the 9 o'clock position with the No.75 blade. Clear cornea incision 2.2 x 2.2-mm was created at the 12 o'clock position starting at the anterior limbus using the 2.2-mm keratome. The anterior chamber was irrigated with 0.4 mL of 1% non-preservative intracameral lidocaine and filled with DisCoVisc. A capsulorrhexis was completed using the cystotome and the Utrata forceps. Hydrodissection was performed with balanced salt solution. The lens nucleus was removed with the Phacoemulsification handpiece without incident. Cortex was removed with the irrigation-aspiration handpiece. The capsular bag was re-inflated using DisCoVisc and an [id number] implant was inserted with the shooter. The irrigation-aspiration handpiece was used to remove all residual DisCoVisc. The eye was refilled with balanced salt solution and the wound checked and found to be watertight. Topical Maxitrol drops were given. Of note, the pupil was very small, so a Malyugin ring was used to dilate the pupil prior to capsulorrhexis. The capsular tension ring a CTR 11 was inserted after lens and Malyugin ring removed after insertion of the lens. Indication for complex cataract surgery: Iris abnormalities requiring pupil dilation device. Pseudoexfoliation requiring capsular tension ring. [id number]/[facility] #: [id number] [facility]
== END 2018-04-08 09:53 | disposition home or self-care (01) ==
LOC: OREAST 07:36
PROVIDERS: ATTEND Specialist
DX: H25.811 Combined forms of age-related cataract, right eye (principal); H40.1414 Capsular glaucoma with pseudoexfoliation of lens, right eye, indeterminate stage; Q13.2 Other congenital malformations of iris; I25.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 native coronary artery without angina pectoris; Z95.5 Presence of coronary angioplasty implant and graft; J45.909 Unspecified asthma, uncomplicated; E03.9 Hypothyroidism, unspecified; K21.9 Gastro-esophageal reflux disease without esophagitis; Z79.01 Long term (current) use of anticoagulants; F41.9 Anxiety disorder, unspecified
CPT/HCPCS: A9270-GY; J2250; V2632

== ENCOUNTER 2018-04-12 16:33 | Inpatient (IN) | payer MEDICARE ==
--- OUTSIDE RECORDS SUMMARY | 2018-04-12 17:16 | XMS REPORT ---
:1940 External Reference #:[id number] Author Organization [facility] Address [address] [place] [address] [place] [address] Phone [phone] Care Team Providers Name Role Phone Manas Villeda MD Primary Care Physician Unavailable Payers Type Date Identification Numbers Payment Provider Subscriber Medicare Primary Effective: Policy Number: Medicare Roxi Martin 2007 [id number] PayID: [id number] [address] [place] [address] [facility] Policy Number: [id number] [facility] Roxi Martin PayID: [id number] [address] [place] [address] Problems Date Description Provider Status Onset: 04/06/2015 Restless legs Jaziel Hurst M.D. Active Onset: 06/10/2016 Dyspnea Sharon Peter MD Active Onset: 06/10/2016 Asthma without status asthmaticus Sharon Peter MD Active Onset: 06/10/2016 Disturbance in sleep behavior Sharon Peter MD Active Onset: 06/10/2016 Morbid obesity Sharon Peter MD Active Onset: 02/03/2018 Encounter for planned Bennie Herron M.D., [facility], Active postprocedural wound closure [facility]SC[facility] Onset: 01/21/2018 Angina pectoris Bryson Steiner M.D. Active Onset: 01/21/2018 Atrial fibrillation Bryson Steiner M.D. Active Onset: 01/21/2018 Obstructive sleep apnea syndrome Bryson Steiner M.D. Active Onset: 01/21/2018 Chronic kidney disease Bryson Steiner M.D. Active Onset: 01/21/2018 Chronic respiratory failure Bryson Steiner M.D. Active Onset: 01/21/2018 Impending infarction Bryson Steiner M.D. Active Onset: 01/22/2018 Anemia Yuval Marshall M.D. Active Onset: 01/23/2018 Paroxysmal atrial fibrillation Lennox Singh M.D. Active Onset: 01/23/2018 Chronic kidney disease stage 3 Lennox Singh M.D. Active Onset: 01/23/2018 Gastric ulcer without hemorrhage, Lennox Singh M.D. 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 Active Onset: 01/31/2018 Chest pain Ivanna Palomo.OKandi Active Onset: 01/31/2018 Hypothyroidism Shanda Gregory D.OKandi Active Onset: 02/01/2018 Chronic diastolic heart failure Shanda Gregory D.OKandi Active Onset: 02/01/2018 Hyp hrt & chr kdny dis w hrt fail Shanda Gregory D.O. 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 Cigarette Use Never Smoked Cigarettes ETOH Use Rarely consumes alcohol Smoking Patient has never smoked Recreational Drug Use Denies Drug Use Daily Caffeine consumes chocolate occasionally Daily Caffeine Soda occassionally Daily Caffeine Consumes on average 1 cup of hot tea per day Exercise Type/Frequency Does not exercise Limited physical mobility Allergies, Adverse Reactions, Alerts Date Description Reaction Status Severity Comments 02/18/2011 Gabitril rash, rash active 02/18/2011 Naproxen itching active 02/18/2011 Lipitor leg weakness active leg weakness 02/18/2011 Uniphyl stomach pain active 02/18/2011 Zanaflex hallucination active 06/17/2016 CT Scan Dye/ Contrast active Dizzy/ Blurry Eye 05/23/2017 Cytotec active 05/23/2017 Imipramine active 05/23/2017 Simvastatin active leg weakness 05/23/2017 Rosuvastatin Calcium active leg weakness 06/27/2017 Pravastatin Sodium active vomiting 06/27/2017 Pravastatin active vomiting 10/10/2017 Any Statins active 10/16/2017 Nitrofurantoin active 02/03/2018 Misoprostol active 02/03/2018 Theophylline active 02/03/2018 Tiagabine active 02/03/2018 Tizanidine active 02/03/2018 Fentanyl active 02/03/2018 Amitriptyline active 02/18/2011 Aspirin inactive Medications Medication Date Status Form Strength Qnty SIG Indications Ordering Provider Plavix Active Tablets 75mg 90tabs Take one You S. 018 tablet by Danny, DO mouth daily FACC Metoprolol Active Tablets 25mg 180tabs 1 by mouth You S. Tartrate 018 twice a day Delgado, DO FACC Electric Bed Active Electric R26.9 You S. 018 bed for Delgado, DO home use FACC I50.32 R60.0 Repatha Sureclick 12/03/2017 Active Solution 140mg/ml 2ml sc [id number] ( You S. Auto-Inject has not Danny, started yet) DO FACC Isosorbide 08/22/2017 Active Tablets ER 120mg 90tab Take one I You S. Mononitrate ER 24HR s tablet by 2 Delgado, mouth daily 5 DO FACC . 1 1 9 Amlodipine 08/20/2017 Active Tablets 10mg 90tab 1 by mouth I You S. Besylate s every day 2 Delgado, 5 DO FACC . 1 1 9 Ezetimibe 06/27/2017 Active Tablets 10mg 90tab take one E You S. s tablet 7 Delgado, daily, 8 DO FACC generic if . available 5 Omeprazole 06/27/[address] 40mg 90cap 1 by mouth I You S. s every 2 Delgado, day-takes 1 5 DO FACC po twice . daily per 1 patient 1 9 Oxygen 08/15/2016 Active Misc 1unit please use Lexus lewis o2 at 2l/min 0 Brittani, with 9 MD exertion. . pls provide 0 pt with 2 light wt conserving device for o2 Hydrocodone-Aceta Active Tablets 10/325 120ta 1 -2 po up Unknown minophen bs to 6x a day prn Torsemide Active Tablets 10mg 100ta 1 po qd. Unknown bs Singulair Active Tablets 10mg 30tab 1 po qd Unknown s Vitamin B- Active Capsules 100mcg 1 po qd Unknown Complex Albuterol Sulfate Active Nebulizer 2.5mg/3ML 100un qid prn neb Unknown 0.083% its Senna Active Tablets 8.6mg take 2 Unknown tablets by mouth twice a day Colace Active Capsules 100mg 2 cap po bid Unknown Fluticasone Active Suspension 50mcg/Act 2 sprays Unknown Propionate each nostril twice a day Multivitamin Active Tablet once a day Unknown Venlafaxine HCL Active Tablets 37.5mg 270ta 1 qhs per Jaziel da silva patient Kellee Hurst. Levocetirizine Active Tablets 5mg 1 by mouth Unknown Dihydrochloride every day Amitriptyline HCL Active Tablets 10mg take 1 Unknown tablets every night Ferrous Sulfate Active Tablets 325(65Fe) 1 po every Unknown mg day Levothyroxine Active Tablets 175mcg 1 by mouth Unknown Sodium every day Amiodarone HCL Active Tablets 200mg 90tab 1 by mouth You S. s once a Delgado, day-on hold DO FACC Ventolin HFA Active Aerosol 108(90Base 2 puffs by Unknown ) mcg/Act mouth four times a day as needed Breo Ellipta Active Aerosol 100-25mcg/ 1 puff Unknown Inh inhaled daily Nitroglycerin Active Tablets Sub 0.4mg 25tab 1 sl q5mins You S. s x3 as needed Danny, for chest DO FACC pain Shark Cartilage Active 500mg 2 by mouth Unknown twice a day Calcium& Active 750-465mg 1 po daily Unknown Magnesium Aspirin Ec Active Tablets DR 81mg 1 by mouth Unknown every day Acetaminophen Active Tablets 325mg 2 tablets by Unknown mouth every 6 hours as needed for pain/fever Vitamin D Active Capsules 400Units 1 by mouth Unknown every day Pramipexole Active Tablets 1mg take 2 Unknown Dihydrochloride tablet by mouth at bedtime Caltrate 600+D Active Tablets 600-800mg- take one Unknown Unit capsule/tabl et by mouth twice daily Lisinopril Active Tablets 20mg 1 by mouth Unknown every day Melatonin Active Capsules 10mg 1 tab by Unknown mouth at bedtime as needed for insomnia Ranitidine HCL Active Capsules 150mg 90cap Take 1 Benny T. joshua Cote After Dinner ( taken 1 hour before supper) Metoprolol 02/13/2018 - Hx Tablets 25mg Take two by You Duggan Tartrate 02/13/2018 mouth twice Delgado, a day DO FACC Brilinta 01/27/2018 - Hx Tablets 90mg 180ta 1 tab by You Duggan 02/27/2018 bs mouth twice Delgado, a day DO FACC Metoprolol 01/27/2018 - Hx Tablets 50mg 1 by mouth You Duggan Tartrate 01/30/2018 twice a Delgado, day(increase DO FACC d prior to Cath) Metoprolol 01/27/2018 - Hx Tablets ER 50mg 1 by mouth You Duggan Succinate ER 02/11/2018 24HR twice daily Delgado, DO FACC Plavix 12/30/2017 - Hx Tablets 75mg 60tab Take one I You Duggan 01/26/2018 s tablet a day 2 Delgado, 5 DO FACC . 1 1 9 Ranexa 12/25/2017 - Hx Tablets ER 500mg 60tab Take one by You Duggan 02/13/2018 12HR s mouth twice Delgado, daily DO FACC Sucralfate 05/23/2017 - Hx Tablets 1gm 90tab 1 by mouth You Duggan 05/21/2017 s three times Delgado, a day prior DO FACC to meals and at hs Amlodipine 05/23/2017 - Hx Tablets 5mg 90tab 2 by mouth I You Duggan Besylate 08/20/2017 s every day 2 Delgado, 5 DO FACC . 1 1 9 Pravastatin 05/23/2017 - Hx Tablets 10mg 90tab 1 by mouth I You S. Sodium 06/26/2017 s every 2 Delgado, evening 5 DO FACC . 1 1 9 Topiramate 07/18/2016 - Hx Tablets 25mg 120ta 1 every Jaziel S. 12/03/2016 bs night at [place], bedtime for M.D. 1 week then 2 every night at bedtime for 1 week then 3 every night at bedtime for 1 week then 4 Spiriva Respimat 06/10/2016 - Hx Aerosol 1.25mcg/Ac 12gm 2 puffs, J Sharon 05/21/2017 t daily 4 Elijah Peter MD . 9 0 9 Klor-Con M20 - Hx Tablets ER 20Meq 30tab 1 po qd Unknown 12/03/2016 s Synthroid - Hx Tablets 137mcg 30tab 1 po qd Unknown 07/25/2017 s Prilosec - Hx Capsules DR 40mg 30cap 1 po twice a Unknown 05/21/2017 s day Ambien CR - Hx Tablets ER 12.5mg 30tab 1 qhs prn Unknown 04/05/2015 s Lasix - Hx Tablets 40mg 30tab 1 po qd Unknown 05/21/2017 s Mirapex - Hx Tablets 1mg 60tab 2 po at hs Unknown 10/09/2017 s Nabumetone - Hx Tablets 500mg 60tab 1 po bid Unknown 12/03/2016 s Primidone - Hx Tablets 50mg 270ta 2 by mouth Jaziel S. 02/02/2018 bs every night Ten Sleep, at bedtime M.D. Vitamin D - Hx 1000Iu 2 po daily Unknown 08/21/2017 Advair Diskus - Hx Aerosol 500-50mcg/ 1disk 1 puff po Unknown 02/02/2018 Dose us bid ( only taken if ran out of Breo) Caltrate 600+D - Hx Tablets 300-300mg 1 po daily Unknown 10/09/2017 Advair Diskus - Hx Aerosol 500-50mcg/ inhale 1-2 Unknown 07/01/2017 Dose puffs bid or uses breo instead Propranolol HCL - Hx Tablets 40mg 1 by mouth Unknown 12/03/2016 qd Metoprolol - Hx Tablets 25mg 1 by mouth Unknown Succinate ER 05/21/2017 daily Isosorbide - Hx Tablets ER 30mg 180ta take one I You S. Mononitrate ER 08/22/2017 24HR bs tablet by 2 Delgado, mouth twice 5 DO FACC daily . 1 1 9 Sucralfate - Hx Powder 1 30 minutes Unknown 04/29/2017 before meals tid Multaq - Hx Tablets 400mg 1 by mouth Unknown 04/29/2017 twice a day Omeprazole - Hx Capsules DR 40mg 1 by mouth Unknown 06/26/2017 bid Metoprolol - Hx Tablets 25mg 180ta 1 by mouth You S. Tartrate 01/30/2018 bs twice a day Danny, FACC Acetaminophen - Hx Tablets 325mg 2 tablets by Unknown 07/01/2017 mouth tid as needed for pain/fever Proventil HFA - Hx Neb prn Unknown 05/22/2017 Flovent HFA - Hx Aerosol 110mcg/Act 1 puff daily Unknown 04/08/2018 to tongue Rosuvastatin - Hx Tablets 20mg 1 by mouth Unknown Calcium 05/22/2017 at hs Nasacort Aq - Hx Aerosol 55mcg/Act 2 sprays in Unknown 08/21/2017 each nostril bid Ranitidine HCL - Hx Tablets 150mg take one Unknown 06/27/2017 tablet by mouth twice a day-Hasnt Started. Nasacort Allergy - Hx Aerosol 55mcg/Act 1 sprays in Unknown 24HR 11/26/2017 left nostril, once daily Proventil HFA - Hx Aerosol 108(90Base inhale two Unknown 01/15/2018 ) mcg/Act puffs by mouth four times a day as needed Vitamin C - Hx Tablets 1000mg 1 by mouth Unknown 10/14/2017 every day Amoxicillin - Hx Tablets 875mg 1 po bid for Darlow, 10/09/2017 7 days Manas Arzate MD Zetia - Hx Tablets 10mg 1 by mouth Unknown 10/09/2017 every day Medications Administered in Office Medication Date Status Form Strength Qnty SIG Indications Ordering Provider Technetium TC Administered Injection Ica Nuclear 99M 018 Schedule Tetrofosmin, Per Unit Dose Up To 40 Millicuries Inj, Administered Injection You S. Regadenoson, 018 Delgado, DO 0.1 MG FACC Technetium TC Administered Injection You S. 99M 018 Delgado, DO Tetrofosmin, FACC Per Unit Dose Up To 40 Millicuries Vital Signs Date Vital Result Comment 02/26/2018 Height 61 inches 5'1" Weight 247.00 lb Heart Rate 72 /min BP Systolic Sitting 116 mmHg BP Diastolic Sitting 62 mmHg Respiratory Rate 14 /min O2 % BldC Oximetry 98 % 2 L BMI (Body Mass Index) 46.7 kg/m2 02/13/2018 Height 61 inches 5'1" Weight 256.00 lb Heart Rate 68 /min regular BP Systolic Sitting 104 mmHg Ra Large Cuff BP Diastolic Sitting 76 mmHg Ra Large Cuff BP Systolic Standing 98 mmHg Ra Large Cuff BP Diastolic Standing 82 mmHg Ra Large Cuff Respiratory Rate 20 /min Pain Level 6 O2 % BldC Oximetry 92 % at rest. No oxygen BMI (Body Mass Index) 48.4 kg/m2 02/03/2018 Height 61 inches 5'1" Weight 260.00 lb w/ o shoes Heart Rate 70 /min BP Systolic Sitting 152 mmHg wrist cuff Left arm BP Diastolic Sitting 82 mmHg wrist cuff Left arm Respiratory Rate 24 /min BMI (Body Mass Index) 49.1 kg/m2 Ejection Fraction 50-55% echo 01/25/18 01/16/2018 Heart Rate 50 /min BP Systolic Sitting 110 mmHg Rue reg cuff BP Diastolic Sitting 80 mmHg Rue reg cuff BP Systolic Standing 102 mmHg Rue reg cuff BP Diastolic Standing 72 mmHg Rue reg cuff Respiratory Rate 16 /min O2 % BldC Oximetry 97 % at room air Ejection Fraction 50-55% date 10/14/16 ECHO 12/30/2017 Height 61 inches 5'1" Weight 253.00 lb per pt Heart Rate 56 /min BP Systolic Sitting 120 mmHg L forearm reg cuff BP Diastolic Sitting 88 mmHg L forearm reg cuff BP Systolic Standing 124 mmHg L forearm reg cuff BP Diastolic Standing 90 mmHg L forearm reg cuff Respiratory Rate 16 /min BMI (Body Mass Index) 47.8 kg/m2 12/11/2017 Height 61 inches 5'1" Weight 256.00 lb Heart Rate 70 /min BP Systolic Sitting 130 mmHg BP Diastolic Sitting 70 mmHg Respiratory Rate 20 /min O2 % BldC Oximetry 93 % BMI (Body Mass Index) 48.4 kg/m2 12/03/2017 Height 61 inches 5'1" Weight 256.00 lb No shoes Heart Rate 72 /min BP Systolic Sitting 126 mmHg Rfa reg cuff BP Diastolic Sitting 74 mmHg Rfa reg cuff Respiratory Rate 16 /min BMI (Body Mass Index) 48.4 kg/m2 Ejection Fraction 50-55% 10/14/2016-echo 10/16/2017 Height 61 inches 5'1" Weight 264.00 lb Heart Rate 72 /min BP Systolic Sitting 132 mmHg BP Diastolic Sitting 72 mmHg Respiratory Rate 16 /min Pain Level 8 Hydroodone for pain O2 % BldC Oximetry 96 % Ra BMI (Body Mass Index) 49.9 kg/m2 10/10/2017 Weight 260.00 lb Heart Rate 54 /min regular BP Systolic 122 mmHg BP Diastolic 68 mmHg Respiratory Rate 12 /min no respiratory difficulties Pain Level 0 O2 % BldC Oximetry 90 % 08/22/2017 Height 61 inches 5'1" Weight 263.00 lb Heart Rate 52 /min BP Systolic Sitting 156 mmHg lower left arm BP Diastolic Sitting 84 mmHg lower left arm BP Systolic Standing 124 mmHg lower left arm BP Diastolic Standing 78 mmHg lower left arm Respiratory Rate 12 /min tightness in chest Pain Level 8 O2 % BldC Oximetry 92 % BMI (Body Mass Index) 49.7 kg/m2 07/01/2017 Height 61 inches 5'1" Weight 254.00 lb Heart Rate 58 /min BP Systolic Sitting 114 mmHg Lue forearm small cuff BP Diastolic Sitting 78 mmHg Lue forearm small cuff Respiratory Rate 16 /min O2 % BldC Oximetry 92 % On Ra BMI (Body Mass Index) 48.0 kg/m2 06/27/2017 Height 61 inches 5'1" Weight 256.00 lb Heart Rate 52 /min BP Systolic Sitting 122 mmHg Ra Large Cuff BP Diastolic Sitting 78 mmHg Ra Large Cuff BP Systolic Standing 138 mmHg Ra Large Cuff BP Diastolic Standing 78 mmHg Ra Large Cuff Respiratory Rate 16 /min Pain Level 8 O2 % BldC Oximetry 92 % BMI (Body Mass Index) 48.4 kg/m2 06/18/2017 Height 61 inches 5'1" Weight 265.00 lb Heart Rate 62 /min BP Systolic Sitting 132 mmHg BP Diastolic Sitting 80 mmHg Respiratory Rate 16 /min BMI (Body Mass Index) 50.1 kg/m2 05/23/2017 Weight 265.00 lb Heart Rate 56 /min BP Systolic Sitting 126 mmHg LA Large Cuff BP Diastolic Sitting 74 mmHg LA Large Cuff BP Systolic Standing 134 mmHg LA Large Cuff BP Diastolic Standing 80 mmHg LA Large Cuff Respiratory Rate 16 /min Pain Level 7 O2 % BldC Oximetry 94 % 05/01/2017 Height 61 inches Weight 250.00 lb stated Heart Rate 98 /min BP Systolic Sitting 126 mmHg BP Diastolic Sitting 70 mmHg Respiratory Rate 16 /min Pain Level 10 O2 % BldC Oximetry 98 % Ra BMI (Body Mass Index) 47.2 kg/m2 12/30/2016 Heart Rate 68 /min BP Systolic Sitting 142 mmHg BP Diastolic Sitting 80 mmHg Respiratory Rate 14 /min O2 % BldC Oximetry 93 % 07/04/2016 Heart Rate 76 /min BP Systolic Sitting 136 mmHg Right forearm reading BP Diastolic Sitting 88 mmHg Right forearm reading Respiratory Rate 24 /min 06/11/2016 Height 61 inches 5'1" Weight 250.00 lb Heart Rate 72 /min BP Systolic Sitting 140 mmHg BP Diastolic Sitting 86 mmHg BMI (Body Mass Index) 47.2 kg/m2 06/10/2016 Height 61 inches 5'1" Weight 250.00 lb Heart Rate 98 /min BP Systolic Sitting 134 mmHg BP Diastolic Sitting 78 mmHg O2 % BldC Oximetry 93 % BMI (Body Mass Index) 47.2 kg/m2 04/06/2015 Height 61 inches 5'1" Weight 238.00 lb Heart Rate 64 /min BP Systolic Sitting 114 mmHg BP Diastolic Sitting 78 mmHg BMI (Body Mass Index) 45.0 kg/m2 Results Test Date Test Result H/L Range Note CBC No Diff 02/05/2018 White Blood Count 6.5 10^3/uL 3.5-10.8 Red Blood Count 3.52 10^6/uL Low 4.00-5.40 Hemoglobin 10.8 g/dL Low 12.0-16.0 Hematocrit 32 % Low 35-47 Mean Corpuscular Volume 91 fL 80-97 Mean Corpuscular Hemoglobin 31 pg 27-31 Mean Corpuscular HGB Conc 34 g/dL 31-36 Red Cell Distribution Width 17 % High 10.5-15 Platelet Count 266 10^3/uL 150-450 Mean Platelet Volume 7.4 um3 7.4-10.4 CBC Auto Diff 02/03/2018 White Blood Count 7.0 10^3/uL 3.5-10.8 1 Red Blood Count 3.44 10^6/uL Low 4.00-5.40 1 Hemoglobin 10.5 g/dL Low 12.0-16.0 1 Hematocrit 31 % Low 35-47 1 Mean Corpuscular Volume 90 fL 80-97 1 Mean Corpuscular Hemoglobin 30 pg 27-31 1 Mean Corpuscular HGB Conc 34 g/dL 31-36 1 Red Cell Distribution Width 17 % High 10.5-15 1 Platelet Count 247 10^3/uL 150-450 1 Mean Platelet Volume 7.0 um3 Low 7.4-10.4 1 Abs Neutrophils 6.2 10^3/uL 1.5-7.7 1 Abs Lymphocytes 0.6 10^3/uL Low 1.0-4.8 1 Abs Monocytes 0.2 10^3/uL 0-0.8 1 Abs Eosinophils 0 10^3/uL 0-0.6 1 Abs Basophils 0 10^3/uL 0-0.2 1 Abs Nucleated RBC 0 10^3/uL 1 Granulocyte % 88.5 % High 38-83 1 Lymphocyte % 8.5 % Low 25-47 1 Monocyte % 2.4 % 0-7 1 Eosinophil % 0.1 % 0-6 1 Basophil % 0.5 % 0-2 1 Nucleated Red Blood Cells % 0 1 Laboratory test finding 01/20/2018 TSH (Thyroid Stim 8.23 mcIU/mL High 0.34-5.60 Horm) Free T4 (Free Thyroxine) 1.17 ng/dL High 0.61-1.12 Cath Panel 01/20/2018 Partial Thrombo Time PTT 26.2 seconds 26.0-36.3 Inr/Protime 01/20/2018 Inr 0.93 0.77-1.02 CBC Auto Diff 01/20/2018 White Blood Count 6.4 10^3/uL 3.5-10.8 Red Blood Count 2.91 10^6/uL Low 4.00-5.40 Hemoglobin 9.5 g/dL Low 12.0-16.0 Hematocrit 28 % Low 35-47 Mean Corpuscular Volume 96 fL 80-97 Mean Corpuscular Hemoglobin 33 pg High 27-31 Mean Corpuscular HGB Conc 34 g/dL 31-36 Red Cell Distribution Width 13 % 10.5-15 Platelet Count 213 10^3/uL 150-450 Mean Platelet Volume 7.6 um3 7.4-10.4 Abs Neutrophils 5.5 10^3/uL 1.5-7.7 Abs Lymphocytes 0.8 10^3/uL Low 1.0-4.8 Abs Monocytes 0.1 10^3/uL 0-0.8 Abs Eosinophils 0 10^3/uL 0-0.6 Abs Basophils 0 10^3/uL 0-0.2 Abs Nucleated RBC 0 10^3/uL Granulocyte % 86.2 % High 38-83 Lymphocyte % 12.2 % Low 25-47 Monocyte % 1.2 % 0-7 Eosinophil % 0.1 % 0-6 Basophil % 0.3 % 0-2 Nucleated Red Blood Cells % 0 Comp Metabolic Panel 01/20/2018 Sodium 138 mmol/L 135-145 Chloride 101 mmol/L 101-111 Co2 Carbon Dioxide 28 mmol/L 22-32 Glucose 155 mg/dL High 70-100 Blood Urea Nitrogen 34 mg/dL High 6-24 Creatinine 1.54 mg/dL High 0.51-0.95 BUN/Creatinine Ratio 22.1 High 8-20 Calcium 9.0 mg/dL 8.6-10.3 Total Protein 6.8 g/dL 6.4-8.9 Albumin 3.9 g/dL 3.2-5.2 Globulin 2.9 g/dL 2-4 Albumin/Globulin Ratio 1.3 1-3 Total Bilirubin 0.30 mg/dL 0.2-1.0 Alkaline Phosphatase 76 U/L 34-104 Alt 9 U/L 7-52 Ast 15 U/L 13-39 Egfr Non- 32.6 >60 Egfr 39.4 >60 2 Potassium 5.2 mmol/L High 3.5-5.0 Anion Gap 9 mmol/L 2-11 Laboratory test finding 01/20/2018 Ferritin 151.0 ng/mL 11-307 Laboratory test finding 08/15/2017 LDL Cholesterol Direct 103 mg/dL 3 TSH (Thyroid Stim Horm) 15.82 mcIU/mL High 0.34-5.60 Laboratory test finding 06/26/2017 Magnesium 1.8 mg/dL Low 1.9-2.7 Free T4 (Free Thyroxine) 1.19 ng/dL High 0.61-1.12 TSH (Thyroid Stim Horm) 10.61 mcIU/mL High 0.34-5.60 B-Type Natriuretic Peptide BNP 351 pg/mL High 4 Comp Metabolic Panel 06/26/2017 Sodium 138 mmol/L 133-145 Potassium 4.0 mmol/L 3.5-5.0 Chloride 102 mmol/L 101-111 Co2 Carbon Dioxide 30 mmol/L 22-32 Anion Gap 6 mmol/L 2-11 Glucose 113 mg/dL High 70-100 Blood Urea Nitrogen 24 mg/dL 6-24 Creatinine 1.35 mg/dL High 0.51-0.95 BUN/Creatinine Ratio 17.8 8-20 Calcium 9.3 mg/dL 8.6-10.3 Total Protein 6.5 g/dL 6.4-8.9 Albumin 3.9 g/dL 3.2-5.2 Globulin 2.6 g/dL 2-4 Albumin/Globulin Ratio 1.5 1-3 Total Bilirubin 0.30 mg/dL 0.2-1.0 Alkaline Phosphatase 94 U/L 34-104 Alt 13 U/L 7-52 Ast 17 U/L 13-39 Egfr Non- 38.0 >60 Egfr 48.9 >60 5 Laboratory test finding 06/26/2017 LDL Cholesterol Direct 126 mg/dL 6 Basic Metabolic Panel 06/11/2016 Sodium 136 mmol/L 133-145 Potassium 5.2 mmol/L High 3.5-5.0 Chloride 106 mmol/L 101-111 Co2 Carbon Dioxide 23 mmol/L 22-32 Anion Gap 7 mmol/L 2-11 Glucose 135 mg/dL High 70-100 Blood Urea Nitrogen 35 mg/dL High 6-24 Creatinine 1.26 mg/dL High 0.51-0.95 BUN/Creatinine Ratio 27.8 High 8-20 Calcium 9.4 mg/dL 8.6-10.3 Egfr Non- 41.3 >60 Egfr 53.1 >60 [address] HERRON CELL PHONE [phone] 2 Because ethnic data is not always readily available, this report includes an eGFR for both -Americans and non- Americans. The National Kidney Disease Education Program (NKDEP) does not endorse the use of the MDRD equation for patients that are not between the ages of 18 and 70, are , have extremes of body size, muscle mass, or nutritional status, or are non- or non-. According to the National Kidney Foundation, irrespective of diagnosis, the stage of the disease is based on the level of kidney function: Stage Description GFR(mL/min/1.73 m(2)) 1 Kidney damage with normal or decreased GFR 90 2 Kidney damage with mild decrease in GFR 60-89 3 Moderate decrease in GFR 30-59 4 Severe decrease in GFR 15-29 5 Kidney failure <15 (or dialysis) 3 Desirable: <100 Near Optimal: 100-129 Borderline High: 130-159 High: 160-189 Very High: >189 4 >100 to <200 pg/mL: likely compensated congestive heart failure (CHF) 200 to 400 pg/mL: likely moderate CHF >400 pg/mL: likely moderate to severe CHF 5 Because ethnic data is not always readily available, this report includes an eGFR for both -Americans and non- Americans. The National Kidney Disease Education Program (NKDEP) does not endorse the use of the MDRD equation for patients that are not between the ages of 18 and 70, are , have extremes of body size, muscle mass, or nutritional status, or are non- or non-. According to the National Kidney Foundation, irrespective of diagnosis, the stage of the disease is based on the level of kidney function: Stage Description GFR(mL/min/1.73 m(2)) 1 Kidney damage with normal or decreased GFR 90 2 Kidney damage with mild decrease in GFR 60-89 3 Moderate decrease in GFR 30-59 4 Severe decrease in GFR 15-29 5 Kidney failure <15 (or dialysis) 6 Desirable: <100 Near Optimal: 100-129 Borderline High: 130-159 High: 160-189 Very High: >189 7 Because ethnic data is not always readily available, this report includes an eGFR for both -Americans and non- Americans. The National Kidney Disease Education Program (NKDEP) does not endorse the use of the MDRD equation for patients that are not between the ages of 18 and 70, are , have extremes of body size, muscle mass, or nutritional status, or are non- or non-. According to the National Kidney Foundation, irrespective of diagnosis, the stage of the disease is based on the level of kidney function: Stage Description GFR(mL/min/1.73 m(2)) 1 Kidney damage with normal or decreased GFR 90 2 Kidney damage with mild decrease in GFR 60-89 3 Moderate decrease in GFR 30-59 4 Severe decrease in GFR 15-29 5 Kidney failure <15 (or dialysis) Procedures Date CPT Code Description Status Comment 04/09/2018 38365 EKG Tracing & Interpretation Completed 03/25/2018 81452 Stress Test Completed 03/25/2018 18359 Myocardial Perfusion Imaging Completed Tomographic (Spect) Multiple Studies 02/03/2018 51844 EKG Tracing & Interpretation Completed 01/25/2018 29897 ECHO Transthorasic Realtime Completed 2D W Doppler & Color Flow Hosp 01/24/2018 56250 Insert Non-Tunneled Venous Completed Catether 01/23/2018 16964 Cath PLMT&NJX L Ventriculog Completed Img S&I 01/23/2018 25876 Percutaneous Transcatheter Completed Placement Of Intracoronary Stent 01/16/2018 05729 EKG Tracing & Interpretation Completed 12/30/2017 25059 EKG Tracing & Interpretation Completed 12/29/2017 79828 Diffusing Capacity Completed 12/29/2017 06638 Pulmonary Completed Function><Bronchodil 12/03/2017 95815 EKG Tracing & Interpretation Completed 10/10/2017 31634 EKG Tracing & Interpretation Completed 05/23/2017 97244 EKG Tracing & Interpretation Completed 10/14/2016 01731 ECHO Transthorasic Realtime Completed 2D W Doppler & Color Flow Hosp 10/11/2016 74521 EKG, Interpretation Only Completed 10/01/2016 18779 Cath PLMT&NJX L Ventriculog Completed Img S&I 09/29/2016 01382 EKG, Interpretation Only Completed 09/28/2016 78128 EKG, Interpretation Only Completed 09/26/2016 96505 Treadmill Interp/Report Only Completed 09/26/2016 38644 Stress Test Supervsn W/Out Completed I/R 09/25/2016 48438 Color Flow Doppler/Interp & Completed Reprt 09/25/2016 57246 Pulse Completed Wave/Continuous-Interp.RPT 09/25/2016 56875 Echocardiography, Completed Transesophageal, Real Time W/Image 2D W/W/O M-M 09/25/2016 49197 Cardioversion Completed 08/06/2016 Diabetic Retinal Eye Exam Completed Document: 08/06/16 - Consult Ophthalmology - Brian 07/04/2016 95730 Plethysmography Determination Completed Lung Volumes & Per Airway Resist 07/04/2016 74593 Pulmonary Completed Function><Bronchodil 07/04/2016 28182 Diffusing Capacity Completed 07/03/2016 95089 Polysomnography Sleep Staging Completed 4+ Parameters 01/04/2016 17148 Nerve Conduction - Completed Studies 03/18/2012 27487 Nerve Conduction, Sensory Completed 03/18/2012 95957 Nerve Conduction, Motor W/O Completed F-Wave Study 02/18/2011 76060 Remove Impacted Cerumen Completed 05/07/2005 77593 Treadmill Interp/Report Only Completed 05/07/2005 66709 Stress Test Supervsn W/Out Completed I/R Encounters Type Date Location Provider CPT E/M Dx Office Visit 02/26/2018 [place] [address] R06.02 1:30p Services Of [facility] J45.20 G47.33 Office Visit 02/17/2018 3:00p [facility] Of Avinash Romero M.D. 73790 D47.1 [facility] AT [place] D64.9 I21.4 Office Visit 02/13/2018 10:20a [place] [address] I25.2 Refrigerator Room Clerk AT [facility] I25.119 I50.32 I48.0 N18.9 D64.9 E66.8 E03.9 Office Visit 02/03/2018 2:40p [facility] Of Bennie Herron, 63073 Z48.812 Refrigerator Room Clerk AT [facility] Jeane, [facility], [facility] Office Visit 02/02/2018 1:14p [facility],carli Gregory, 02698 I20.9 Hospitalists D.O. I50.32 I48.0 I11.0 Office Visit 02/01/2018 1:14p [facility],pc Shanda Gregory, 23168 I50.32 Hospitalists D.O. I13.0 J96.11 G25.81 N18.3 Office Visit 01/31/2018 1:13p [facility],pc Shanda Gregory, 04788 D64.9 Hospitalists D.O. R07.9 I48.91 E03.9 G25.81 Office Visit 01/31/2018 1:29p [facility] Saad Holley, 27625 R07.9 MAlejandro, [facility], [facility] Office Visit 01/27/2018 11:56a [facility],pc Lennox Singh, 27971 I20.0 Hospitalists MAlejandro G25.81 J96.11 I48.91 S30.1xxA D64.9 Office Visit 01/26/2018 11:56a [facility] Lennox Singh, 03430 J96.21 Assoc, Hospitalists Jeane I25.10 S30.1xxA I48.91 N18.3 D64.9 Office Visit 01/25/2018 9:51a [facility] Of Bennie Herron M.D., 62290 I21.4 [facility] AT [facility], [facility] I25.10 Office Visit 01/25/2018 11:55a [facility] Lennox Singh, 96472 J96.21 Assoc, Hospitalists Jeane I25.10 I48.91 G25.81 N18.3 S30.1xxA Office Visit 01/24/2018 9:49a [facility] Of Bennie Herron M.D., 97850 I21.4 [facility] AT [facility], [facility] I25.10 Office Visit 01/24/2018 11:54a [facility] Lennox Singh, 69507 J96.21 Assoc, Hospitalists Jeane I25.10 I48.0 I48.91 N18.3 K25.9 G25.81 Office Visit 01/23/2018 11:52a [facility] Lennox Singh, 88984 I48.91 Assoc, Hospitalists Jenae J96.21 I48.0 N18.3 K25.9 Office Visit 01/22/2018 9:22a [facility] Of Bennie Herron M.D., 24814 R07.9 Refrigerator Room Clerk AT [facility], [facility] R79.89 Office Visit 01/22/2018 11:52a [facility] Ass,pc Yuval Marshall, 02808 I20.9 Hospitalists M.D. N18.9 I48.91 D64.9 Office Visit 01/21/2018 11:50a [facility] Ass, Bryson Steiner, 46995 I20.0 Hospitalists M.D. I48.91 G47.33 N18.9 J96.10 Office Visit 01/21/2018 12:37p [facility] Of Delroy Hilliard, 51200 I25.110 Karina Ching Office Visit 01/20/2018 2:40p [facility] Avinash Romero M.D. 71269 D47.1 Of [facility] AT [place] D53.9 Office Visit 01/16/2018 3:40p [place] [address] [facility] I25.119 D64.9 N18.9 I48.0 I50.32 I25.2 E78.5 Z87.11 E03.9 Office Visit 12/30/2017 3:20p [facility] Of You Delgado, [address] [facility] D64.9 N18.9 I48.0 I50.32 Z87.11 E66.8 I25.2 E78.5 Office Visit 12/11/2017 3:45p [place]/Laurie Duggan 44760 G43.009 Neurologic Serv Of [facility] Jeane Hurst G89.4 G44.221 Office Visit 12/03/2017 12:00p [facility] [place] [facility] [place] [address] R51 [facility] I25.119 E78.5 I48.0 N18.9 I50.32 Z87.11 E66.01 D64.9 Office Visit 11/11/2017 4:00p [facility] Of Avinash Romero M.D. 70378 D47.1 [facility] AT [place] D53.9 Office Visit 10/16/2017 [facility], 77893 G25.0 Neurologic Serv Of Refrigerator Room Clerk Clotilde.Reanna R51 I25.119 Office Visit 10/10/2017 10:20a Cardiology Services Of You LewisKandi Delgado, 23690 I25.119 Refrigerator Room Clerk AT [facility] I48.0 E78.5 E03.9 N18.9 I50.32 D64.9 Z87.11 Office Visit 08/22/2017 11:00a Cardiology Services Of You SKandi Delgado, 65192 I25.119 Refrigerator Room Clerk AT [facility] E66.01 I48.0 E78.5 E03.9 I50.32 N18.9 D64.9 Z87.11 Office Visit 08/19/2017 4:00p [facility] Of Avinash Romero M.D. 52110 D47.1 Refrigerator Room Clerk AT [place] R53.83 D53.9 Office Visit 07/01/2017 1:30p [facility] [place] [address] J45.20 Services Of Refrigerator Room Clerk E66.01 Office Visit 06/27/2017 9:40a Cardiology Services Of You SKandi Delgado, 03059 I25.119 Refrigerator Room Clerk AT [facility] I48.0 E78.5 E03.9 I50.32 N18.9 E66.01 D64.9 Z87.11 Office Visit 06/18/2017 4:00p [facility] Jaziel Hurst, 03470 I20.8 Services Of Karina Ching R51 G25.0 Office Visit 05/23/2017 10:40a Cardiology Services Of You Urban Delgado, 05135 I25.119 Refrigerator Room Clerk AT [facility] I48.0 I50.9 E03.9 Z87.11 D64.9 N18.9 E78.5 R06.02 Office Visit 05/01/2017 4:00p [place] Jaziel Hurst, 05147 R51 Serv Of Refrigerator Room Clerk M.DKandi I20.8 Office Visit 04/01/2017 3:40p [facility] Of Avinash Romero M.D. 26744 D64.9 Refrigerator Room Clerk AT [place] Office Visit 12/30/2016 1:00p [facility] [place] [address] R06.02 Services Of Refrigerator Room Clerk J45.20 G47.33 E66.01 Office Visit 10/16/2016 10:21a [facility] [place] [address] R06.02 Assoc,pc Hospitalists I50.9 E03.9 J18.1 Office Visit 10/15/2016 10:16a [facility] [place] [address] R06.02 Assoc,pc Hospitalists E03.9 I50.9 J18.1 Office Visit 10/15/2016 2:45p [facility] [place] [address] J12.9 Services Of Refrigerator Room Clerk J45.21 I50.31 Office Visit 10/14/2016 2:44p [facility] [place] [address] J45.21 Services Of Refrigerator Room Clerk J12.9 Office Visit 10/14/2016 10:16a [facility] [place] [address] R06.02 Assoc,pc Hospitalists E03.9 I50.9 J18.1 Office Visit 10/13/2016 [facility] Fawnjennifer Martin, 35827 R06.02 10:15a Assoc, PIPE TESTER Hospitalists E03.9 I50.9 J18.1 Office Visit 10/12/2016 [facility] Fawnjennifer Martin, 92094 R06.02 10:14a Assoc,pc PIPE TESTER Hospitalists I50.9 E03.9 J18.1 Office Visit 10/11/2016 10:14a [facility] [place] [address] R06.02 Assoc,pc Hospitalists E03.9 I50.9 J18.1 Office Visit 10/10/2016 10:13a [facility] [place] [address] R06.02 Assoc,pc Hospitalists E03.9 I50.9 Office Visit 10/09/2016 10:12a [facility] , Favio Mcqueen M.D. 25707 R06.02 Hospitalists E03.9 I50.9 Office Visit 10/03/2016 9:29a [facility], Lennox Singh, 28900 I21.4 Hospitalists M.D. I48.91 J45.20 G47.33 Office Visit 10/02/2016 9:28a [facility], Lennox Singh, 01495 I21.4 Hospitalists M.D. I48.91 J45.20 G47.33 Office Visit 10/02/2016 1:07p [facility] Of Amber Kaminski M.D. 88442 I25.10 Refrigerator Room Clerk I48.91 Office Visit 10/01/2016 9:28a [facility], Capriemeli Connolly, 28187 I21.4 Hospitalists M.D. I48.91 J45.20 G47.33 Office Visit 09/30/2016 9:27a [facility], Capri Connolly, 20281 I21.4 Hospitalists M.D. I48.91 J45.20 Office Visit 09/29/2016 9:27a [facility], Capri Connolly, 09825 I21.4 Hospitalists M.D. I48.91 J45.20 Office Visit 09/29/2016 1:06p [facility] Zack Francis M.D. 55721 I20.9 I48.91 Office Visit 09/28/2016 9:26a [facility], Capri Connolly, 31365 I21.4 Hospitalists M.D. I48.91 J45.20 G47.33 Office Visit 09/27/2016 9:26a [facility], Daniela Lopez, 39174 R01.1 Hospitalists M.D. I48.91 J45.20 Office Visit 09/27/2016 1:05p [facility] Zack Francis, 70130 I21.4 M.D. Office Visit 09/26/2016 9:26a [facility], Capri Connolly, 50516 R07.1 Hospitalists M.D. I48.91 J45.20 Office Visit 09/25/2016 8:34a [facility] Of Amber Kaminski M.D. 53698 Refrigerator Room Clerk Office Visit 09/25/2016 8:35a [facility] Of Anastasiya Yin, 50739 R07.9 Refrigerator Room Clerk AT [facility], [facility] Office Visit 09/25/2016 9:25a [facility],[place] [address] R07.1 Hospitalists J45.20 I48.91 G47.33 Office Visit 07/04/2016 2:45p [place] Jaziel Hurst 41041 R51 Serv Of Refrigerator Room Clerk M.D. Office Visit 06/11/2016 2:00p [facility] Jaziel Hurst 20971 R51 Of Refrigerator Room Clerk M.D. G89.29 Office Visit 06/10/2016 1:30p [facility] [place] [address] R06.02 Services Of Refrigerator Room Clerk J45.909 G47.9 E66.01 Office Visit 04/16/2016 3:40p [facility] Avinash Romero M.D. 76902 D47.1 Refrigerator Room Clerk AT [place] R53.83 G89.4 D63.1 N18.9 Office Visit 04/02/2016 1:00p [facility] Avinash Romero M.D. 96485 D47.1 Refrigerator Room Clerk AT [place] G89.4 R53.83 D64.9 Office Visit 02/06/2016 3:00p [facility] Avinash Romero M.D. 75289 D47.1 Refrigerator Room Clerk AT [place] G89.4 Office Visit 04/06/2015 10:00a [place] carmen Hurst, 95802 333.94 Neurologic Serv Of Refrigerator Room Clerk M.D. 333.1 V49.3 Office Visit 04/01/2013 10:30a [place] carmen Hurst 29964 333.1 Neurologic Serv Of Refrigerator Room Clerk M.D. 333.94 Office Visit 03/18/2012 11:45a [place] carmen Hurst 41131 354.2 Neurologic Serv Of Refrigerator Room Clerk M.D. 333.94 333.1 Office Visit 02/18/2011 10:45a ENT Services Of Poncho Crane, 71847 278.[address] [facility].DKandi 380.4 389.10 787.20 Office Visit 04/28/2009 12:30a [facility], Lennox Singh, 00123 567.9 Hospitalists M.D. 780.97 278.00 277.9 Office Visit 04/27/2009 1:00a [facility], Lennox Singh, 24859 567.9 Hospitalists M.D. 780.97 278.00 244.9 Office Visit 04/26/2009 1:00a [facility], Lennox Singh, 74420 567.9 Hospitalists M.D. 780.97 278.00 244.9 Office Visit 09/30/2007 11:00a Neurosurgery Services Aureliano Gayle, 74811 721.3 Of [facility] AT [facility] Office Visit 06/03/2007 4:00p Neurosurgery Services Aureliano Gayle, 07388 721.3 Of [facility] AT [facility] Office Visit 03/04/2007 3:30p Neurosurgery Services Aureliano Gayle, 26272 721.3 Of [facility] AT [facility] Office Visit 11/26/2006 3:30p Neurosurgery Services Aureliano Gayle, 46434 721.3 Of [facility] AT [facility] Office Visit 08/27/2006 3:00p Neurosurgery Services Aureliano Gayle, 36321 724.02 Of [facility] AT [facility] Office Visit 05/07/2005 1:00p [facility] Zack Pina 57044 794.31 Jeane Francis 401.1 Plan of Care Future Appointment(s):04/14/2018 3:00 pm - Avinash Romero M.D. at [facility] Of [facility] AT Vvdpbohq76/13/2018 1:45 pm - Sharon Peter MD at Pulmonology And Sleep Services Of [facility]04/30/2018 3:15 pm - Jaziel Hurst M.D. at [place] Neurologic Serv Of [facility]04/09/2018 - You Delgado DO FACCI25.2 Old myocardial infarctionComments:Hold amiodarone for 1 week to see if that helps with your upset stomach.Follow up:f/u 3 dieblbW22.10 [facility] [place] coronary artery w/o ang pctrs
--- OUTSIDE RECORDS SUMMARY | 2018-04-12 17:16 | XMS REPORT | Continuity of Care Document ---
:1940 External Reference #:[id number] Author Name Brian Smallwood M.D. Address [address] [place] [address] Care Team Providers Name Role Phone Manas Villeda M.D. Primary Care Physician Unavailable Payers Type Date Identification Numbers Payment Provider Subscriber Policy Number: [id number] Medicare - [facility] Roxi Martin PayID: [id number] [address] [place] [address] Policy Number: [id number] [facility] Roxi Martin PayID: [id number] [address] [place] [address] Advance Directives Description No Information Available Problems Date Description Provider Status Onset: 09/19/2014 Pure hypercholesterolemia Active Onset: Hypothyroidism Active Onset: Gout Active Onset: Asthma Active Onset: Acid reflux Active Onset: Body fluid retention Active Onset: 08/29/2015 Combined form of senile cataract Brian Smallwood M.D. Active Onset: 08/29/2015 Keratoconjunctivitis sicca, not Brian Smallwood M.D. Active specified as Sjogren's Onset: 08/06/2016 Headache Brian Smallwood M.D. 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 Active Onset: 04/09/2018 Abnormal pupillary function Brian Smallwood M.D. 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 /2017 right eye [place]o, three M.D. times a day, start the day before surgery Prednisolone 03/20 Active Suspension 1% 15ml 1 drops Brian J. Acetate /2017 right eye Arleo, three M.D. times a day. taper as directed Ketorolac 03/20 Active Solution 0.5% 10ml use one Brian J. Tromethamine /2017 drop in Arleo, the right M.D. eye three times a day, start the day before surgery Albuterol Sulfate Active Nebulizer 1.25mg/3M Unknown /0000 L Amiodarone HCL Active Tablets 200mg Delgado, 0000 You D.O. Amlodipine Active Tablets 10mg Delgado, Besylate / You D.O. Amitriptyline HCL Active Tablets 10mg Darlow, Manas Russo M.D. Brilinta Active Tablets 90mg Delgado, 0000 You D.O. Ezetimibe Active Tablets 10mg Delgado, You D.O. Levothyroxine Active Tablets 175mcg Amaris, Sodium / Veronica F.N.P Isosorbide Active Tablets ER 60mg Darlow, Mononitrate ER 0000 24HR Manas Russo M.D. Nitroglycerin Active Tablets Sub 0.4mg Delgado, You D.O. Omeprazole Active Capsules DR 40mg Delgado, You D.O. Ranexa Active Tablets ER 500mg Delgado, /0000 12HR You Antony Ranitidine HCL Active Capsules 150mg Rocael, /0000 Benny Ching Montelukast Active Tablets 10mg Amaris, Sodium Veronica F.N.P Torsemide Active Tablets 20mg Unknown / Hydrocodone-Aceta Active Tablets 10-325mg Amaris, minophen / Veronica F.N.P Metoprolol Active Tablets ER 50mg Stallone, Succinate ER 24HR Lennox Ching Aspirin Active Tablets DR 81mg Unknown / Calcium Magnesium Active Tablets 300-300mg Unknown 750 0000 Caltrate 600+D Active Tablets 600-800mg Unknown /0000 -Unit Colace Active Capsules 100mg 2 by Unknown /0000 mouth twice a day Ferrous Sulfate Active Tablets 325mg Unknown / Flovent HFA Active Aerosol 110mcg/Ac Unknown /0000 t Fluticasone Active Suspension 50mcg/Act Unknown Propionate 0000 Levocetirizine Active Tablets 5mg Unknown Dihydrochloride /0000 Multi-Vitamin Active Tablets Unknown Daily /0000 Pramipexole Active Tablets 1mg Unknown Dihydrochloride /0000 Proventil HFA Active Aerosol 108(90Bas Unknown /0000 e) mcg/Act Senna Active Tablets 8.6mg Unknown /0000 Venlafaxine HCL Active Caps ER 37.5mg Unknown ER / 24HR Ventolin HFA Active Aerosol 108(90Bas Unknown /0000 e) mcg/Act Vitamin B Complex Active Tablets Unknown /0000 Vitamin D Active Tablets 1000Unit 4 every Unknown /0000 day Melatonin ER 00 Active Tablets ER 5mg Unknown /0000 Systane Active Solution 0.4-0.3% as needed Unknown /0000 No Active 02/10 Hx Unknown Medications /2017 - 02/10 Advair Diskus Hx Aerosol 500-50mcg bid Unknown /0000 /Dose - 08/09 Immunizations Description No Information Available Vital Signs Description No Information Available Results Description No Information Available Procedures Date Code Description Status 04/08/2018 47625 Cataract Surgery Complex Completed 03/20/2018 65145 Ophthalmic Biometry Completed 03/20/2018 60324 Ophthalmic Biometry Completed 03/20/2018 19308 Est Patient Intermediate Exam Completed 02/10/2018 91034 Est Patient Intermediate Exam Completed 08/12/2017 71779 Est Patient Comprehensive Exam Completed 08/06/2016 65388 Est Patient Comprehensive Exam Completed 08/29/2015 57591 Est Patient Comprehensive Exam Completed 09/19/2014 63792 Determination Of Refractive State Completed 09/19/2014 63311 Est Patient Comprehensive Exam Completed 08/02/2013 92252 Determination Of Refractive State Completed 08/02/2013 35239 Est Patient Comprehensive Exam Completed 10/13/2008 26015 New Patient Comprehensive Exam Completed Encounters Type Date Location Provider Dx Diagnosis Office Visit 06/24/2012 Chase Rizo, 373.00 Blepharitis Unspec 1:15p , carli Ching Plan of Treatment Future Appointment(s):05/01/2018 1:00 pm - Lashawn Post O.D. at Brian Smallwood MD, 04/16/2018 12:00 pm - Brian Smallwood M.D. at Brian Smallwood MD, 04/15/2018 7:00 am - Brian Smallwood M.D. at Brian Smallwood MD, 2017 - Brian Smallwood M.D.H25.812 Combined forms of age-related cataract, left eyeComments:Smoking can increase the risk of developing or worsening any eye related disease, as well as affect your overall health. If you are a smoker , we strongly recommend that you quit.If you are not a smoker, we strongly recommend that you do not start. Dense cataract in the left eye.Follow up:For surgery. Please keep post op appointments as scheduled.Z96.1 Presence of intraocular lensComments:The artifical lens implant in your right eye appears to be stable. Since this is the first day after surgery, your right eye is still dilated and the vision will still be slightly blurry. The dilation will go down over the next day or two. Continue taking your eye drops as directed on the surgical calendar. 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
--- OUTSIDE RECORDS SUMMARY | 2018-04-12 17:16 | XMS REPORT | Continuity of Care Document ---
:1940 External Reference #:[id number] Author Name Brian Smallwood M.D. Address [address] [place] [address] Care Team Providers Name Role Phone Manas Villeda M.D. Primary Care Physician Unavailable Payers Type Date Identification Numbers Payment Provider Subscriber Policy Number: [id number] Medicare - [facility] Roxi Martin PayID: [id number] [address] [place] [address] Policy Number: [id number] [facility] Roxi Martin PayID: [id number] [address] [place] [address] Advance Directives Description No Information Available Problems [...] Smallwood M.D. 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 times a day, start the day before surgery Prednisolone 03/20 Active Suspension 1% 15ml 1 drops Brian Crespo [facility] right eye Arleo, three M.D. times a day. taper as directed Albuterol Sulfate Active Nebulizer 1.25mg/3M Unknown /0000 L Amiodarone HCL Active Tablets 200mg Delgado, /0000 You D.O. Amlodipine Active Tablets 10mg Delgado, Besylate You D.O. Amitriptyline HCL Active Tablets 10mg Darlow, /0000 Manas Russo M.D. Brilinta Active Tablets 90mg Delgado, /0000 You D.O. Ezetimibe Active Tablets 10mg Delgado, /0000 You D.O. Levothyroxine Active Tablets 175mcg Amaris, Sodium /0000 Veronica F.N.P Isosorbide Active Tablets ER 60mg Darlow, Mononitrate ER /0000 24HR Manas Russo M.D. Nitroglycerin Active Tablets Sub 0.4mg Delgado, /0000 You D.O. Omeprazole Active Capsules DR 40mg Delgado, 0000 You D.O. Ranexa Active Tablets ER 500mg Delgado, /0000 12HR You D.O. Ranitidine HCL Active Capsules 150mg Rocael, /0000 Benny Ching Montelukast Active Tablets 10mg Amaris, Sodium /0000 Veronica F.N.P Torsemide Active Tablets 20mg Unknown 0000 Hydrocodone-Aceta Active Tablets 10-325mg Amaris, minophen /0000 Veronica Frazier Metoprolol Active Tablets ER 50mg Stallone, Succinate ER /0000 24HR Lennox Ching Aspirin Active Tablets DR 81mg Unknown /0000 Calcium Magnesium Active Tablets 300-300mg Unknown 750 /0000 Caltrate 600+D 00 Active Tablets 600-800mg Unknown /0000 -Unit Colace Active Capsules 100mg 2 by Unknown /0000 mouth twice a day Ferrous Sulfate Active Tablets 325mg Unknown /0000 Flovent HFA Active Aerosol 110mcg/Ac Unknown /0000 t Fluticasone Active Suspension 50mcg/Act Unknown Propionate 0000 Levocetirizine Active Tablets 5mg Unknown Dihydrochloride /0000 Multi-Vitamin Active Tablets Unknown Daily /0000 Pramipexole Active Tablets 1mg Unknown Dihydrochloride /0000 Proventil HFA Active Aerosol 108(90Bas Unknown /0000 e) mcg/Act Senna Active Tablets 8.6mg Unknown /0000 Venlafaxine HCL Active Caps ER 37.5mg Unknown ER /0000 24HR Ventolin HFA Active Aerosol 108(90Bas Unknown [...] Information Available Procedures Date Code Description Status 02/10/2018 26789 Est Patient Intermediate Exam Completed 08/12/2017 58159 Est Patient Comprehensive Exam Completed 08/06/2016 82455 Est Patient Comprehensive Exam Completed 08/29/2015 15074 Est Patient Comprehensive Exam Completed 09/19/2014 95655 Determination Of Refractive State Completed 09/19/2014 63257 Est Patient Comprehensive Exam Completed 08/02/2013 29713 Determination Of Refractive State Completed 08/02/2013 20089 Est Patient Comprehensive Exam Completed 10/13/2008 83957 New Patient Comprehensive Exam Completed Encounters Type Date Location Provider Dx Diagnosis Office Visit 06/24/2012 Chase Rizo, 373.00 Blepharitis Unspec 1:15p , carli Ching Plan of Treatment Future Appointment(s):05/01/2018 1:00 pm - Lashawn Post O.D. at Brian Smallwood [facility], 04/16/2018 12:00 pm - Brian Smallwood M.D. at Brian [facility]wood [facility], 04/09/2018 12:00 pm - Brian Smallwood M.D. at Brian [facility], 2017 7:00 am - Brian Smallwood M.D. at Brian [facility]wood [facility], 04/08/2018 7:00 am - Brian Smallwood M.D. at Brian [facility]wood [facility], 03/20/2018 - Brian Smallwood M.D.H25.811 Combined forms of age-related cataract, right eyeComments:Smoking can increase the risk of developing or worsening any eye related disease, as well as affect your overall health. If you are a smoker, we strongly recommend that you quit.If you are not a smoker, we strongly recommend that you do not start. Dense cataract in the right eye.Follow up:For surgery. Please keep post op appointments as scheduled.DFE/IOPH40.1414 Capsular glaucoma with pseudoexfoliation of lens, right eye,H25.812 Combined forms of age-related cataract, left eye
--- NOTE | 2018-04-12 17:26 | ED ---
Shortness of Breath - HPI Summary HPI Summary: This patient is a 77 year old F presenting to [facility] accompanied by family with a chief complaint of SOB that began on 04/08/2018. The patient rates the pain 8/ 10 in severity. Symptoms aggravated by nothing. Symptoms alleviated by nothing. Patient reports productive cough (brownish-red sputum), dizziness, and headache. Patient denies abd pain. Pt reports she is on 2L of O2 at home. - History of Current Complaint Chief Complaint: EDUpperRespComplaint Time Seen by Provider: 04/12/18 17:18 Hx Obtained From: Patient Onset/Duration: Sudden Onset, Lasting Days, Still Present Timing: Constant Current Severity: Moderate Dyspnea At: Rest Aggrevating Factors: Nothing Alleviating Factors: Nothing Associated Signs & Symptoms: Cough (Bloody Sputum), Dizzy - Allergy/Home Medications Allergies/Adverse Reactions: Allergies Allergy/AdvReac Type Severity Reaction Status Date / Time Ijlcoay-Ect-Upn Reductase Allergy Unknown Vomiting Verified 04/12/18 16:35 Inhibitor atorvastatin [From Lipitor] Allergy Unknown Verified 04/12/18 16:35 Reaction Details fentanyl Allergy Dizziness Verified 04/12/18 16:35 imipramine Allergy Unknown Verified 04/12/18 16:35 Reaction Details Iodinated Contrast- Oral and Allergy Unknown Verified 04/12/18 16:35 IV Dye Reaction Details misoprostol [From Cytotec] Allergy Unknown Verified 04/12/18 16:35 Reaction Details naproxen Allergy Unknown Verified 04/12/18 16:35 Reaction Details nitrofurantoin Allergy Unknown Verified 04/12/18 16:35 Reaction Details theophylline [From Uniphyl] Allergy Unknown Verified 04/12/18 16:35 Reaction Details tiagabine [From Gabitril] Allergy Unknown Verified 04/12/18 16:35 Reaction Details tizanidine Allergy Unknown Verified 04/12/18 16:35 Reaction Details contrast dye Allergy Dizziness Uncoded 04/12/18 16:35 Home Medications: Home Medications Fluticasone/Vilanterol MDI(NF) [Breo Ellipta MDI (NF)] 1 puff INH DAILY [History Confirmed 04/12/18] Metoprolol Succinate XL TAB* [Toprol XL TAB*] 25 mg PO BID 04/12/18 [History Confirmed 04/12/18] PMH/Surg Hx/FS Hx/Imm Hx Previously Healthy: No Endocrine/Hematology History: Reports: Hx Thyroid Disease - ON DAILY MEDS, Hx Anemia - ON DAILY IRON, 01/2018 WHILE HOSPITALIZED RECEIVE 7 UNITS BLOOD Denies: Hx Diabetes Cardiovascular History: Reports: Hx Angina, Hx Congestive Heart Failure, Hx Hypercholesterolemia, Hx Hypertension - on daily meds Denies: Hx Coronary Artery Disease, Hx Myocardial Infarction, Hx Pacemaker/ ICD, Hx Valvular Heart Disease Comment Only: Other Cardiovascular Problems/Disorders - 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, dr stanley Respiratory History: Reports: Hx Asthma - on daily & prn inhalers, Hx Pneumonia , Hx Sleep Apnea - SLIGHT, USES OXYGEN AT NIGHT AND PRN DURING DAY Denies: Hx Chronic Obstructive Pulmonary Disease (COPD) GI History: Reports: Hx Gastroesophageal Reflux Disease - ON DAILY MEDS, Hx Gastrointestinal Bleed, Hx Hiatal Hernia, Hx Ulcer - CURED WITH MEDS 2016 History: Reports: Hx Renal Disease - stage 3 CKD, Other Problems/ Disorders - Tx BY DR ALICIA ALCOCER IN [place] Denies: Hx Dialysis Musculoskeletal History: Reports: Hx Arthritis - STATES ALL OVER STATES NECK TO TOES, Hx Back Problems, Hx Fibromyalgia, Other Musculoskeletal History - FIBROMYALGIA Sensory History: Reports: Hx Cataracts - BILATERAL, Hx Hearing Aid - R side only , WILL WEAR DAY OF SURGERY & HAVE CASE, Hx Hearing Problem Denies: Hx Contacts or Glasses Opthamlomology History: Reports: Hx Cataracts - BILATERAL Denies: Hx Contacts or Glasses Neurological History: Reports: Hx Headaches - with chest pain gets severe headaches Denies: Hx Dementia, Hx Seizures Psychiatric History: Reports: Other Psychiatric Issues/Disorders - claustrophobia Denies: Hx Panic Disorder - Surgical History Surgery Procedure, Year, and Place: 2008 FUSION LOW BACK. TSP -LSP [place] RODS/SCREWS 2004-- 2010 -TOTAL OF 5 SURGERIES LAST ONE 2011 Xs 2. 2006BILATERAL HIP REPLACEMENT. 06/2003 LEFT HEEL TARSAL TUNNEL -. 12/2004 WART -REMOVED FROM EYELID. 2002 CARPAL TUNNEL - [place]. 2002 Lt KNEE -2 & 09/2002 & 01/2003 Rt KNEE - 3 TIMES - ARTHROSCOPIC. 2007 RIGHT BREAST LUMPECTOMY. 1999 CHOLECYSTECTOMY. TONSILECTOMY- as child. UMBILICAL HERNIA REPAIR. 2009 APPENDECTOMY. 06/2005 [place] BREAST REDUCTION. Lt THUMB - GANGLION CYST. T2007 LEFT TOTAL HIP. Rt ARM - "LUMP" REMOVED-. 2005 RT HIP TOTAL REPLACEMENT. 01/2018 CARDIAC STENT Hx Anesthesia Reactions: Yes - ALWAYS RECEIVES ANTI NAUSEA MEDS PRE-OP - Immunization History Date of Influenza Vaccine: 05/2017 Infectious Disease History: No Infectious Disease History: Denies: Traveled Outside the [place] in Last 30 Days - Family History Known Family History: Positive: Cardiac Disease - Father used to use NTG. 3 brothers have had CABG. 4th had CVA and NH., Diabetes - Social History Occupation: Retired Lives: With Family Alcohol Use: Rare Alcohol Amount: reports only a couple of drinks 4 times per year Hx Substance Use: No Substance Use Type: Reports: None Hx Tobacco Use: No Smoking Status (MU): Never Smoked Tobacco Have You Smoked in the Last Year: No Review of Systems Positive: Shortness Of Breath, Cough Neurological: Other - Positive dizziness Positive: Headache All Other Systems Reviewed And Are Negative: Yes Physical Exam - Summary Physical Exam Summary: GENERAL: Patient is a well-developed and nourished F who is lying comfortable in the stretcher. Patient is not in any acute respiratory distress. HEAD AND FACE: Normocephalic EYES: PERRLA, EOMI x 2. EARS: Hearing grossly intact. MOUTH: Oropharynx within normal limits. NECK: Supple, trachea is midline, no adenopathy, no JVD, no carotid bruit. CHEST: Symmetric, no tenderness at palpation LUNGS: Crackles in bilateral bases. Wheezing CVS: Regular rate and rhythm, S1 and S2 present, no murmurs or gallops appreciated. ABDOMEN: Soft, non-tender. Bowel sounds are normal. No abdominal abnormal pulsations. EXTREMITIES: Full ROM in all major joints, no cyanosis or clubbing. Trace bilateral pitting edema. NEURO: Alert and oriented x 3. No acute neurological deficits. Speech is normal and follows commands. SKIN: Dry and warm Triage Information Reviewed: Yes Vital Signs On Initial Exam: Initial Vitals Temp Pulse Resp BP Pulse Ox 96.5 F 86 22 140/68 98 04/12/18 16:35 04/12/18 16:35 04/12/18 16:35 04/12/18 16:35 04/12/18 16:35 Vital Signs Reviewed: Yes Diagnostics - Vital Signs Vital Signs Temp Pulse Resp BP Pulse Ox 04/12/18 16:35 96.5 F 86 22 140/68 98 - Laboratory Result Diagrams: 04/13/18 06:09 04/13/18 06:09 Lab Statement: Any lab studies that have been ordered have been reviewed, and results considered in the medical decision making process. - EKG 1741 Cardiac Rate: NL EKG Rhythm: Sinus Rhythm - 85 BPM EKG Interpretation: Interventricular delay. Old inferior infarction EKG Comparison: No Significant Change - Since 01/31/2018 Course/Dx - Course Course Of Treatment: 77 year old F presenting with cough and SOB. Blood work obtained. In the ED course the patient was given Albuterol, fluids, Zithromax, Rocephin, Duoneb, and [place]. CXR shows PNA, labs shows leukocytosis. Patient will be admitted for CAP. Case discussed with hospitalist - Diagnoses Provider Diagnoses: Shortness of breath, Pneumonia Discharge - Sign-Out/Discharge Documenting (check all that apply): Patient Departure - admitted - Discharge Plan Condition: Stable Disposition: ADMITTED TO [facility] - Billing Disposition and Condition Condition: STABLE Disposition: Admitted to [facility] - Attestation Statements Document Initiated by Scribe: Yes Documenting Scribe: Renetta Castro Provider For Whom Scribe is Documenting (Include Credential): Anisa Huber MD Scribe Attestation: I, Renetta Castro, scribed for Anisa Huber MD on 04/13/18 at 2349. Scribe Documentation Reviewed: Yes Provider Attestation: The documentation as recorded by the scribeRenetta accurately reflects the service I personally performed and the decisions made by me, Anisa Huber MD
[2018-04-12] MEDS ORDERED: Albuterol/Ipratropium NEB.SOL* Albuterol 2.5 MG/Ipratropium 0.5 MG 3 ML INH ONE (17:30)
[2018-04-12] MEDS ORDERED: Azithromycin IV(*) 500 MG in NS 0.9% 250 ML* 250 ML IVPB ONE (17:30)
[2018-04-12] MEDS ORDERED: cefTRIAXone(*) 1 GM in NS 0.9% 50 ML* 50 ML IVPB ONE (17:30)
[2018-04-12] MEDS ORDERED: Dexamethasone IV* 10 MG in NS 0.9% 50 ML* 50 ML IVPB ONE (17:30)
[2018-04-12] MEDS ORDERED: NS 0.9% 1000 ML* 1,000 ML IV ONE (17:32)
[2018-04-12 18:07] LABS: Hematocrit 30 % (35-47); Hemoglobin 9.9 g/dl (12.0-16.0); Mean Corpuscular HGB Conc 33 g/dl (31-36); Mean Corpuscular Hemoglobin 32 pg (27-31); Mean Corpuscular Volume 97 fL (80-97); Mean Platelet Volume 7.6 um3 (7.4-10.4); Platelet Count 171 10^3/ul (150-450); Red Blood Count 3.07 10^6/ul (4.00-5.40); Red Cell Distribution Width 16 % (10.5-15)
[2018-04-12 18:15] LABS: INR 1.11 (0.77-1.02)
[2018-04-12] MEDS ORDERED: HYDROcodone/ACETAMIN 5-325 MG* 1 TAB PO ONE (18:25)
[2018-04-12 18:33] LABS: ABS Basophils 0 10^3/ul (0-0.2); ABS Neutrophils 13.2 10^3/ul (1.5-7.7); ABS Neutrophils 15.8 10^3/ul (1.5-7.7); Monocytes % 1 % (0-7)
[2018-04-12] MEDS ORDERED: Acetaminophen TAB* 325 MG PO PRN (20:04)
[2018-04-12] MEDS ORDERED: Albuterol/Ipratropium NEB.SOL* Albuterol 2.5 MG/Ipratropium 0.5 MG 3 ML INH PRN (20:04)
[2018-04-12] MEDS ORDERED: Al Hydrox/Mg Hydrox/Simet LIQ* 30 ML UDC PO PRN (20:04)
[2018-04-12] MEDS ORDERED: Nitroglycerin TAB 0.4 MG* 0.4 MG TAB SL PRN (20:08)
[2018-04-12] MEDS ORDERED: Albuterol HFA INHALER* 8 gm MDI INH PRN (20:08)
[2018-04-12] MEDS ORDERED: Nitroglycerin TAB 0.4 MG* 0.4 MG TAB ONE (20:12)
[2018-04-12] MEDS ORDERED: Nitroglycerin TAB 0.4 MG* 0.4 MG TAB SL ONE (20:14)
[2018-04-12] MEDS ORDERED: NON FORMULARY MED* (Ranitidine Hcl [Ranitidine Hcl] 150 MG) PO SCH (21:00)
[2018-04-12] MEDS: Senna TAB PO SCH (22:11)
[2018-04-12] MEDS: Metoprolol Succinate XL TAB* 25 MG PO SCH (22:11)
[2018-04-12] MEDS: CMC:Pantoprazole TAB (NF) 40 MG TAB PO SCH (22:11)
[2018-04-12] MEDS: Amitriptyline TAB* 10 MG PO SCH (22:11)
[2018-04-12] MEDS: Pramipexole TAB* 0.5 MG PO SCH (22:11)
[2018-04-12] MEDS: Fluticasone NASAL SPRAY 50MCG* 16 gm SPRAY BTL BOTH NARES SCH (22:12)
[2018-04-12] MEDS: Heparin VIAL(*) 5000 UNITS/ML VIAL (FIVE THOUSAND) SUBCUT SCH (22:12)
[2018-04-12] MEDS: Venlafaxine EXT RELEASE CAP* 37.5 MG PO SCH (22:12)
[2018-04-12] MEDS: Docusate CAP* 100 MG PO SCH (22:12)
[2018-04-12] MEDS: KETOROLAC 0.5% RIGHT EYE SCH (22:19)
[2018-04-12] MEDS: PREDNISOLONE 1% RIGHT EYE SCH (22:49)
[2018-04-12] MEDS: MOXIFLOXACIN 0.5% RIGHT EYE SCH (22:56)
[2018-04-13] MEDS: Hydrocodone/Acetamin 10/325 1 TAB PO PRN ×3 (01:05→23:51)
[2018-04-13] MEDS: MOXIFLOXACIN 0.5% RIGHT EYE SCH ×7 (01:24→19:26)
[2018-04-13] MEDS: KETOROLAC 0.5% RIGHT EYE SCH ×8 (01:24→23:59)
[2018-04-13] MEDS: PREDNISOLONE 1% RIGHT EYE SCH ×7 (01:24→19:27)
--- NOTE | 2018-04-13 02:25 | HP ---
CC: Dr. Villeda; Dr. Delgado * ADMISSION HISTORY AND PHYSICAL: DATE OF ADMISSION: 04/12/18 PATIENT OF ATTENDING HOSPITALIST: Dr. Daniela Lopze. PRIMARY CARE PROVIDER: Dr. Villeda. PRIMARY PATIENT SAFETY MANAGER: Dr. Delgado. ATTENDING HOSPITALIST WHILE PATIENT IS HERE: Dr. Silver Chase.* ( DICTATED BY PHYLLIS NOEL) CHIEF COMPLAINT: Cough and shortness of breath. HISTORY OF PRESENT ILLNESS: Ms. Martin is a 77-year-old female with multiple complicated past medical history who was recently discharged from the hospital back in January after she had a cardiac catheterization with stent placement with longstanding history of coronary artery disease, who presented to the emergency room today with a 4 day history of productive cough and shortness of breath. The patient notes that her was sick with what appeared to be upper respiratory symptoms and cold about a week ago and she unfortunately had the same symptoms a couple of days later. She described nasal congestion, sneezing , coughing, and upper respiratory symptoms that progressively turned into a productive cough with associated short of breath. She also described no fever; however, she feels warm and had the chills earlier today. She denied any chest pain, headache, dizziness, nausea, vomiting, or any other associated symptoms. She has longstanding history of COPD as well for which she has been on home oxygen usually at night and during sleep. She was evaluated in the emergency room and had laboratory workup that revealed leukocytosis with white count of 20 ,000. Her hemoglobin and hematocrit were also down to 9.9 and 30 respectively; however, it appears to be at baseline given her history of chronic anemia. She also had an elevated C-reactive protein of 269. Chest x-ray was done in the emergency room, however, until time of admission I do not have an official report. Given her ongoing symptoms and her known history of pneumonia, we were asked to see the patient for further evaluation and to consider admission. PAST MEDICAL HISTORY: As mentioned above, the patient has multiple medical issues includin. Asthma. 2. Lymphedema. 3. Obstructive sleep apnea for which she does not use a CPAP at home. 4. Atrial fibrillation. 5. Chronic anemia of unclear etiology that has been worked up by Dr. Romero in the past and she is currently on iron supplement. 6. RLS. 7. Central tremor. 8. Chronic pain. 9. GERD. 10. Chronic respiratory failure. 11. Esophageal spasm. 12. Hypothyroidism. 13. Coronary artery disease. 14. Hypertension. 15. History of gastric ulcer with upper GI bleed. 16. Fibromyalgia. PAST SURGICAL HISTORY: Significant for: 1. Recent right-sided cataract extraction last week and she is scheduled for the left side in 2 days. 2. Bilateral hip replacement. 3. Left eyelid surgery. 4. Five back surgeries including 2 fusions and followed by 2 fusion revisions. 5. Right arm surgery to remove what appears to be a benign lump. 6. Left thumb ganglion cyst removal. 7. Breast reduction. 8. Tarsal tunnel of the left heel. 9. Arthroscopic knee surgery on the left side and knee arthroscopy on the right side x3. 10. Cholecystectomy. 11. Appendectomy. 12. Umbilical hernia repair. CURRENT MEDICATIONS: Her most current medication list at home include: 1. Tylenol 650 mg p.o. q. 6 hours as needed for fever or pain. 2. Albuterol nebulizer 2.5 mg/3 mL one nebulizer every 6 hours as needed for shortness of breath. 3. Albuterol Ventolin MDI 2 puffs inhaled four times a day as needed for shortness of breath. 4. Amitriptyline 10 mg p.o. q.h.s. 5. Norvasc 10 mg p.o. q.a.m., however, the patient tells me that she stopped taking her Norvasc since her recent discharge from the hospital in January. 6. Aspirin 81 mg p.o. daily. 7. Zinc with multivitamin 1 tablet p.o. b.i.d. 8. Vitamin D tablets 1000 units p.o. q.a.m. 9. Plavix 75 mg p.o. daily. 10. Colace 200 mg p.o. b.i.d. 11. Ezetimibe 10 mg p.o. q.a.m. 12. Ferrous sulfate 325 mg p.o. daily. 13. Fluticasone nasal spray 50 mcg 2 spray in both nostrils once daily. 14. Advair Diskus 500/50 one puff inhaled once daily; however, again the patient is not using her Advair Diskus and it was recently replaced with Breo Ellipta 100/25 mcg 1 puff inhaled daily. 15. [place] 10/325 one tablet p.o. q.4 hours as needed for pain. 16. Isosorbide mononitrate 120 mg p.o. daily. 17. Levocetirizine 5 mg p.o. daily. 18. Levothyroxine 175 mcg p.o. daily. 19. Metoprolol 25 mg p.o. b.i.d. 20. Singulair 10 mg p.o. daily. 21. Multivitamins 1 tablet p.o. daily. 22. Nitroglycerin 0.4 mg 1 tab sublingual q. 5 minutes as needed for angina. 23. Omeprazole 40 mg p.o. b.i.d. 24. Pramipexole 1 mg tablet 2 tabs p.o. q.h.s. 25. Zantac 150 mg p.o. t.i.d. 26. Senna tablets 2 tablets p.o. b.i.d. 27. Shark cartilage 500 mg capsule 2 tabs p.o. b.i.d. 28. Torsemide 10 mg p.o. q.a.m. 29. Effexor 37.5 mg p.o. q.h.s. 30. Vitamin B complex 1 cap p.o. daily. 31. Lisinopril 20 mg p.o. daily. ALLERGIES: The patient is also with multiple allergies including NAPROXEN, LIPITOR, ZANAFLEX, IV CONTRAST, CYTOTEC, ALL STATINS, and NITROFURANTOIN, which is MACROBID. FAMILY HISTORY: Significant for coronary artery disease in both her parents. SOCIAL HISTORY: The patient is . Her Herminio is the healthcare proxy carrier. She is a nonsmoker. Denies alcohol intake. She wishes to be a full code. REVIEW OF SYSTEMS: See HPI. Otherwise, 12-point review of systems was examined and they were essentially negative. PHYSICAL EXAMINATION GENERAL: She is a morbidly obese older female in no acute distress or discomfort at the time of admission. VITAL SIGNS: Most recent set of vitals with temperature of 96.5, pulse of 75, blood pressure 140/68, respirations of 18 with O2 sat of 94% on 2 L via nasal cannula. HEENT: Head is normocephalic, atraumatic. Sclerae anicteric. PERRLA. EOMs intact. Oropharynx is pink and moist. NECK: Supple. Trachea midline. No cervical adenopathy, thyromegaly, or JVD. LUNGS: Decreased breath sounds throughout. There is no rales, wheezes, or rhonchi noted. HEART: Regular rate and rhythm. Normal S1 and S2 without rubs, murmurs, or gallops. BACK: With normal curvature. There is no CVA tenderness. BREASTS: Exam deferred at this time. ABDOMEN: Large, round, soft, nontender, and nondistended. Bowel sounds are active in all quadrants. No hernias, masses, or hepatosplenomegaly. RECTAL: Exam deferred at this time. EXTREMITIES: There is 1+ pitting edema bilaterally noted. There is no clubbing or cyanosis. NEUROLOGIC: She is awake, alert, and oriented x3. Tongue is midline. Handgrip is equal bilaterally and sensation is intact throughout. LABORATORY WORKUP: CBC with white count of 20,000, hemoglobin 9.9, hematocrit 30, platelets of 171. Her differential shows 26% of matured granulocytes and 26 bands. Chemistry panel with sodium of 134, potassium 4.3, chloride 105, CO2 of 22, BUN of 42, and creatinine of 1.87, which again appears to be at her baseline compared to last admission in January. Her BNP elevated at 579 and C- reactive protein at 269. ACCESSORY DIAGNOSTIC DATA: Chest x-ray done in the emergency room, again official reading is pending at the time of admission. IMPRESSION: A 77-year-old female with multiple medical problems including hypertension, morbid obesity, coronary artery disease, atrial fibrillation, asthma with chronic obstructive pulmonary disease exacerbations, who presents to the emergency room with 4 days history of worsening upper respiratory system , now with productive cough and shortness of breath, found to have leukocytosis with a chest x- ray suggestive of community-acquired pneumonia. ASSESSMENT AND PLAN: 1. Community-acquired pneumonia. The patient exhibits symptoms with upper respiratory infection that progressively got worse to productive cough and shortness of breath. We will obtain blood culture; however, at this point, she did receive a dose of azithromycin and ceftriaxone in the emergency room and we did note that she had 26% bands in addition to her leukocytosis even though she has been afebrile. I will go ahead and still get blood cultures and await results of sensitivity. I will also obtain sputum culture and I added procalcitonin as well as legionella and Strep pneumo urine antigens. She appears to maintain good oxygen saturation on 2 L via nasal cannula. Her lung examination with no evidence of chronic obstructive pulmonary disease exacerbation or wheezing at this point. We will continue covering her with ceftriaxone and azithromycin awaiting results of culture and sensitivity. 2. History of chronic anemia. Again the patient during this admission has been at her baseline. We will continue her iron supplement at her home dose. 3. Coronary artery disease. The patient has significant history of coronary artery disease with most recent cardiac catheterization with a stent placement in January of this year. I will continue her dual antiplatelet coverage using aspirin and Plavix. She tells me that she was taking Brilinta with aspirin; however, she could not tolerate it due to some change in active metabolites of Brilinta, which had made it ineffective and she was discontinued from it and now on Plavix and aspirin. She denies any chest pain right now; however, we will continue her nitroglycerin as needed. 4. Stage 3 chronic kidney disease. Her BUN and creatinine appears to be at her baseline and we will monitor her closely. 5. Atrial fibrillation. I will continue her metoprolol. The patient is no longer on amiodarone after she had her stent placed. 6. Restless legs syndrome. We will continue her pramipexole. 7. Chronic pain and fibromyalgia. We will continue her hydrocodone per home dose. 8. Hypothyroidism. We will continue her current dose of Synthroid at 175 mcg. 9. Gastroesophageal reflux disease. We will continue her PPI coverage and her Zantac as well. 10. Hyperlipidemia. The patient is on Repatha and she is not due for her injection at this time. Her most recent lipid panel was done 2 months ago with good total cholesterol of 141. 11. Depression. We will continue her amitriptyline and Paxil. 12. Deep vein thrombosis prophylaxis: She is a high risk and we will cover her with subcu heparin since she is hemodynamically stable and does not show any evidence of acute anemia. 13. Code status: She wishes to be a full code and her Herminio is the healthcare proxy carrier. TIME SPENT: Approximately 60 minutes was spent admitting this patient for which greater than 50% on taking the history and performing physical exam. I went on and discussed the case with my attending, who agreed to plan of care and will follow her up accordingly. PHYLLIS NOEL [id number]/[facility] #: [id number] [facility]ITALIvanna
[2018-04-13] MEDS: Heparin VIAL(*) 5000 UNITS/ML VIAL (FIVE THOUSAND) SUBCUT SCH ×3 (06:11→20:54)
[2018-04-13 06:26] LABS: ABS Basophils 0 10^3/ul (0-0.2); ABS Eosinophils 0 10^3/ul (0-0.6); ABS Lymphocytes 0.6 10^3/ul (1.0-4.8); ABS Monocytes 0.3 10^3/ul (0-0.8); ABS Neutrophils 11.4 10^3/ul (1.5-7.7); ABS Nucleated RBC 0 10^3/ul; Eosinophil % 0.1 % (0-6); Hematocrit 25 % (35-47); Hemoglobin 8.4 g/dl (12.0-16.0); Lymphocyte % 5.2 % (25-47); Mean Corpuscular HGB Conc 34 g/dl (31-36); Mean Corpuscular Hemoglobin 33 pg (27-31); Mean Corpuscular Volume 96 fL (80-97); Mean Platelet Volume 7.8 um3 (7.4-10.4); Nucleated Red Blood Cells % 0; Platelet Count 146 10^3/ul (150-450); Red Blood Count 2.56 10^6/ul (4.00-5.40); Red Cell Distribution Width 15 % (10.5-15); White Blood Count 12.4 10^3/ul (3.5-10.8)
[2018-04-13 06:43] LABS: EGFR Non-African American 30.5 (>60)
[2018-04-13] MEDS: NF:Fluticasone/Vilanterol MDI(NF) 100/25 MDI INH SCH (07:34)
--- NOTE | 2018-04-13 07:58 | RAD ---
INDICATION: Shortness of breath. COMPARISON: Most recent comparison chest x-ray January 31, 2018 TECHNIQUE: Single AP portable view of the chest was obtained. FINDINGS: Image quality is compromised due to the relative inferiority of a portable chest x-ray. Again seen is mild cardiomegaly. There is faint calcification overlying the arch of the aorta. There is density obscuring the left lung base worse when compared to the previous chest x-ray. There is patchy density at the right lung base and overlying the right hilum also worse when compared to the previous chest x-ray. Mid and lower thoracic fixation device is noted. IMPRESSION: Worsening aeration as described above when compared to the January 31, 2018 chest x-ray. Depending on the clinical presentation there could be pneumonia at the left lung base and/or pulmonary vascular congestion. R1
[2018-04-13] MEDS: Polyethyl Glycol/Propylene Gly OPHTH.SOLN BOTH EYES PRN ×4 (08:18→17:17)
[2018-04-13] MEDS: Senna TAB PO SCH ×2 (08:21→20:51)
[2018-04-13] MEDS: Metoprolol Succinate XL TAB* 25 MG PO SCH ×2 (08:21→20:51)
[2018-04-13] MEDS: Docusate CAP* 100 MG PO SCH ×2 (08:21→20:50)
[2018-04-13] MEDS: Ferrous Sulfate TAB* 325 MG PO SCH (08:22)
[2018-04-13] MEDS: Levothyroxine TAB* 175 MCG TAB PO SCH (08:23)
[2018-04-13] MEDS: Aspirin EC TAB* 81 MG TAB.EC PO SCH (08:23)
[2018-04-13] MEDS: Isosorbide Mononitrate ER TAB* 60 MG PO SCH (08:23)
[2018-04-13] MEDS: Clopidogrel TAB* 75 MG PO SCH (08:23)
[2018-04-13] MEDS: Montelukast Sodium TAB* 10 MG PO SCH (08:24)
[2018-04-13] MEDS: Cetirizine* 10 MG TAB PO SCH (08:24)
[2018-04-13] MEDS: Lisinopril TAB* 10 MG PO SCH (08:24)
[2018-04-13] MEDS: Ezetimibe TAB* 10 MG PO SCH (08:25)
[2018-04-13] MEDS: Torsemide TAB* 20 MG PO SCH (08:25)
[2018-04-13] MEDS: Famotidine TAB* 20 MG PO SCH (08:25)
[2018-04-13] MEDS: Cholecalciferol TAB* 1000 UNITS PO SCH (10:06)
[2018-04-13] MEDS: CMC:Pantoprazole TAB (NF) 40 MG TAB PO SCH ×2 (10:06→20:51)
[2018-04-13] MEDS: Fluticasone NASAL SPRAY 50MCG* 16 gm SPRAY BTL BOTH NARES SCH ×2 (10:07→20:56)
--- NOTE | 2018-04-13 11:25 | PN ---
Subjective Date of Service: 04/13/18 Interval History: Ms. Martin reports feeling well this morning. She reports her SOB has improved significantly since yesterday, however, she is having some blood-tinged sputum. She denies chest pain, SOB, N/V, diaphoresis. She does reports "chest pain" in the ED last night which she describes as a stabbing pain in her hands going up her arms, aching gums, and a headache which then becomes chest pressure. She reports this was resolved with nitro in the ED. She states she experienced this after arriving to the floor last night and that it was relieved with 1 dose of nitro. There is no documentation indicating that she had any of these symptoms or received nitro up on the floor. Nursing reports that she appears to be somewhat confused. Family History: Unchanged from Admission Social History: Unchanged from Admission Past Medical History: Unchanged from Admission Objective Active Medications: Acetaminophen (Tylenol Tab*) 975 mg PO Q4H PRN Hydrocodone Bitart/Acetaminophen ([place] 10/325 (Nf)) 1 tab PO Q4HR PRN Al Hydrox/Mg Hydrox/Simethicone (Maalox Plus*) 30 ml PO Q6H PRN Albuterol (Ventolin Hfa Inhaler*) 2 puff INH QID PRN Albuterol/Ipratropium (Duoneb (Albuterol 2.5 Mg/Ipratropium 0.5 Mg)) 1 neb INH [id number] AWAKE PRN Amitriptyline HCl (Elavil Tab*) 10 mg PO BEDTIME [facility] Aspirin (Aspirin Ec Tab*) 81 mg PO QAM [facility] Cetirizine HCl (Zyrtec*) 10 mg PO DAILY [facility] Cholecalciferol (Vitamin D Tab*) 1,000 units PO QAM [facility] Clopidogrel Bisulfate (Plavix Tab*) 75 mg PO DAILY [facility] Docusate Sodium (Colace Cap*) 200 mg PO BID [facility] Ezetimibe (Zetia Tab*) 10 mg PO QAM [facility] Famotidine (Pepcid Tab*) 20 mg PO DAILY [facility] Ferrous Sulfate (Ferrous Sulfate Tab*) 325 mg PO QAM [facility] Fluticasone Propionate (Flonase Nasal [place] 50mcg*) 2 spray BOTH NARES BID [facility] Fluticasone/Vilanterol (Breo Ellipta Mdi 100/25(Nf)) 1 puff INH DAILY [facility] Heparin Sodium (Porcine) (Heparin Vial(*)) 5,000 units SUBCUT Q8HR [facility] Ceftriaxone Sodium 1 gm/ (Sodium Chloride) 50 mls @ 200 mls/hr IVPB Q24H [facility] Azithromycin 500 mg/ Sodium (Chloride) 250 mls @ 250 mls/hr IVPB Q24H [facility] Isosorbide Mononitrate (Imdur Er Tab*) 120 mg PO DAILY [facility] Ketorolac Tromethamine (Ketorolac 0.5% Ophth (Nf)) 1 drop RIGHT EYE Q3H [facility] Levothyroxine Sodium (Synthroid Tab*) 175 mcg PO QAM [facility] Lisinopril (Prinivil Tab*) 20 mg PO DAILY [facility] Metoprolol Succinate (Toprol Xl Tab*) 25 mg PO BID [facility] Montelukast Sodium (Singulair Tab*) 10 mg PO QAM [facility] Moxifloxacin HCl (Vigamox 0.5% Ophth(Nf)) 1 drop RIGHT EYE Q3H [facility] Nitroglycerin (Nitroglycerin Tab 0.4 Mg*) 0.4 mg SL Q5M PRN Ondansetron HCl (Zofran Inj*) 4 mg IV Q4H PRN Pantoprazole Sodium (Protonix Tab (Nf)) 40 mg PO BID [facility] Polyethyl Glycol/Propylene Glycol (Lubricant Eye Drops) 1 drop BOTH EYES Q2H PRN Pramipexole Dihydrochloride (Mirapex Tab*) 2 mg PO BEDTIME [facility] Prednisolone Acetate (Pred Forte 1%*) 1 drop RIGHT EYE Q3H [facility] Senna (Senokot Tab*) 2 tab PO BID [facility] Torsemide (Demadex*) 10 mg PO QAM [facility] Venlafaxine HCl (Effexor Xr Cap*) 37.5 mg PO BEDTIME [facility] Vital Signs - 8 hr 04/13/18 04/13/18 04/13/18 03:22 04:02 07:23 Temperature 97.7 F 97.3 F Pulse Rate 74 74 Respiratory 24 18 Rate Blood Pressure 138/56 183/82 (mmHg) O2 Sat by Pulse 100 100 Oximetry Oxygen Devices in Use Now: Nasal Cannula - 2L Appearance: Elderly woman sitting in bed in no acute distress. Eyes: No Scleral Icterus, PERRLA Ears/Nose/Mouth/Throat: NL Teeth, Lips, Gums, Mucous Membranes Moist Neck: NL Appearance and Movements; NL JVP, Trachea Midline Respiratory: Symmetrical Chest Expansion and Respiratory Effort, - - Coarse crackles to bilateral bases Cardiovascular: NL Sounds; No Murmurs; No JVD, RRR, No Edema Abdominal: NL Sounds; No Tenderness; No Distention, No Hepatosplenomegaly Extremities: No Edema Skin: No Rash or Ulcers Neurological: Alert and Oriented x 3 Lines/Tubes/Other Access: Clean, Dry and Intact Peripheral IV Nutrition: Taking PO's Result Diagrams: 04/13/18 06:09 04/13/18 06:09 Assess/Plan/Problems-Billing Assessment: Ms. Martin is a 77 yo female with PMH of CAD with stenting in January, afib, anemia, VALENTIN, HTN, and chronic respiratory failure who presents with cough and SOB and was found to have left lower lobe pneumonia, now with trops trending up. - Patient Problems (1) Pneumonia Current Visit: Yes Status: Acute Priority: High Code(s): J18.9 - PNEUMONIA , UNSPECIFIED ORGANISM SNOMED Code(s): 127465563 Comment: - Left lung base density on CXR - Afebrile, WBC trending down - Sputum culture pending, blood tinge likly d/t trauma - Titrate oxygen - Continue ceftriaxone and azithromycin (2) Chest pain Current Visit: Yes Status: Acute Priority: High Code(s): R07.9 - CHEST PAIN, UNSPECIFIED SNOMED Code(s): 03277881 Comment: - Chest pressure and atypical symptoms - Trops trending up, 0.05, 0.75, 0.9 - No EKG changes - Appreciate cardiology consult (3) CAD (coronary artery disease) Current Visit: No Status: Chronic Priority: High Code(s): I25.10 - ATHSCL HEART DISEASE OF [place] CORONARY ARTERY W/O ANG PCTRS SNOMED Code(s): 38251694 Comment: - Cardiac cath 01/2018 - Continue imdur, amiodarone, plavix, nitro (4) Hypertension Current Visit: Yes Status: Chronic Priority: High Code(s): I10 - ESSENTIAL (PRIMARY) HYPERTENSION SNOMED Code(s): 79380277 Comment: - SBP 130-180 - Continue lisinopril, metoprolol, torsemide - Continue to monitor, may need to increase antihypertensives (5) Anemia Current Visit: Yes Status: Acute Priority: High Code(s): D64.9 - ANEMIA, UNSPECIFIED SNOMED Code(s): 106638800 Comment: - H&H - Continue ferrous sulfate (6) Asthma Current Visit: Yes Status: Chronic Priority: High Code(s): J45.909 - UNSPECIFIED ASTHMA, UNCOMPLICATED SNOMED Code(s): 501901632 Comment: - Continue breo elipta, albuterol, singulair (7) Atrial fibrillation Current Visit: Yes Status: Chronic Priority: High Code(s): I48.91 - UNSPECIFIED ATRIAL FIBRILLATION SNOMED Code(s): 15288092 Comment: - NSR - Continue metoprolol (8) Chronic hypoxemic respiratory failure Current Visit: Yes Status: Chronic Priority: High Comment: - Continue oxygen and medications as above (9) Obstructive sleep apnea Current Visit: No Status: Chronic Priority: High Code(s): G47.33 - OBSTRUCTIVE SLEEP APNEA (ADULT) (PEDIATRIC) SNOMED Code(s): 84951064 Comment: - Patient wears supplemental O2 overnight, but not CPAP (10) CKD (chronic kidney disease), stage III Current Visit: Yes Status: Chronic Priority: High Code(s): N18.3 - CHRONIC KIDNEY DISEASE, STAGE 3 (MODERATE) SNOMED Code(s): 794355250 Comment: - At baseline (11) Hypothyroidism Current Visit: No Status: Chronic Priority: High Code(s): E03.9 - HYPOTHYROIDISM, UNSPECIFIED SNOMED Code(s): 79261095 Comment: - Continue levothyroxine (12) HLD (hyperlipidemia) Current Visit: No Status: Chronic Code(s): E78.5 - HYPERLIPIDEMIA, UNSPECIFIED SNOMED Code(s): 90035129 Comment: - Continue zetia (13) RLS (restless legs syndrome) Current Visit: No Status: Chronic Priority: High Comment: - Continue mirapex (14) Full code status Current Visit: Yes Status: Acute Code(s): Z78.9 - OTHER SPECIFIED HEALTH STATUS SNOMED Code(s): 112780930 (15) DVT prophylaxis Current Visit: Yes Status: Acute Code(s): OAC4734 - SNOMED Code(s): 451827021 Comment: - Heparin SQ Status and Disposition: Inpatient. Anticipate d/c home when medically stable.
[2018-04-13] MEDS: Azithromycin IV(*) 500 MG in NS 0.9% 250 ML* 250 ML IVPB SCH (17:12)
[2018-04-13] MEDS: Ondansetron INJ* 2 MG/ML VIAL IV PRN ×2 (19:20→23:52)
[2018-04-13 19:28] LABS: Urine Appearance Clear; Urine Blood Negative (Negative); Urine Color Straw; Urine Ketones Negative (Negative); Urine Protein 1+(30 mg/dL) (Negative); Urine Urobilinogen Negative (Negative)
[2018-04-13] MEDS: cefTRIAXone(*) 1 GM in NS 0.9% 50 ML* 50 ML IVPB SCH (20:44)
[2018-04-13] MEDS: Pramipexole TAB* 0.5 MG PO SCH (20:49)
[2018-04-13] MEDS: Amitriptyline TAB* 10 MG PO SCH (20:51)
[2018-04-13] MEDS: Venlafaxine EXT RELEASE CAP* 37.5 MG PO SCH (20:51)
[2018-04-14] MEDS ORDERED: PROCHLORPERAZINE INJ 5 MG/ML 2 ML VIAL IV PRN (01:45)
[2018-04-14] MEDS: KETOROLAC 0.5% RIGHT EYE SCH ×7 (02:21→20:49)
[2018-04-14] MEDS: PREDNISOLONE 1% RIGHT EYE SCH ×8 (02:21→20:49)
[2018-04-14] MEDS: MOXIFLOXACIN 0.5% RIGHT EYE SCH ×4 (02:21→08:08)
[2018-04-14] MEDS: Hydrocodone/Acetamin 10/325 1 TAB PO PRN ×3 (06:16→20:37)
[2018-04-14] MEDS: Heparin VIAL(*) 5000 UNITS/ML VIAL (FIVE THOUSAND) SUBCUT SCH ×3 (06:17→20:41)
[2018-04-14] MEDS: Polyethyl Glycol/Propylene Gly OPHTH.SOLN BOTH EYES PRN ×4 (07:55→16:53)
[2018-04-14] MEDS: NF:Fluticasone/Vilanterol MDI(NF) 100/25 MDI INH SCH (07:56)
[2018-04-14] MEDS: Fluticasone NASAL SPRAY 50MCG* 16 gm SPRAY BTL BOTH NARES SCH ×2 (07:57→20:46)
[2018-04-14] MEDS: CMC:Pantoprazole TAB (NF) 40 MG TAB PO SCH ×2 (07:58→20:37)
[2018-04-14] MEDS: Docusate CAP* 100 MG PO SCH ×2 (07:58→20:38)
[2018-04-14] MEDS: Lisinopril TAB* 10 MG PO SCH (07:58)
[2018-04-14] MEDS: Ferrous Sulfate TAB* 325 MG PO SCH (07:59)
[2018-04-14] MEDS: Clopidogrel TAB* 75 MG PO SCH (07:59)
[2018-04-14] MEDS: Isosorbide Mononitrate ER TAB* 60 MG PO SCH (07:59)
[2018-04-14] MEDS: Torsemide TAB* 20 MG PO SCH (08:00)
[2018-04-14] MEDS: Senna TAB PO SCH ×2 (08:00→20:39)
[2018-04-14] MEDS: Famotidine TAB* 20 MG PO SCH (08:01)
[2018-04-14] MEDS: Ezetimibe TAB* 10 MG PO SCH (08:01)
[2018-04-14] MEDS: Cholecalciferol TAB* 1000 UNITS PO SCH (08:01)
[2018-04-14] MEDS: Aspirin EC TAB* 81 MG TAB.EC PO SCH (08:01)
[2018-04-14] MEDS: Metoprolol Succinate XL TAB* 25 MG PO SCH ×2 (08:01→20:37)
[2018-04-14] MEDS: Levothyroxine TAB* 175 MCG TAB PO SCH (08:02)
[2018-04-14] MEDS: Cetirizine* 10 MG TAB PO SCH (08:02)
[2018-04-14] MEDS: Montelukast Sodium TAB* 10 MG PO SCH (08:02)
--- NOTE | 2018-04-14 14:36 | PN ---
Subjective Date of Service: 04/14/18 Interval History: Ms. Martin is feeling weak this morning. She has been up to the bathroom, but not ambulating beyond that. She denies any further episodes of chest pain or any of the other symptoms she reported yesterday. Family History: Unchanged from Admission Social History: Unchanged from Admission Past Medical History: Unchanged from Admission Objective Active Medications: Acetaminophen (Tylenol Tab*) 975 mg PO Q4H PRN Hydrocodone Bitart/Acetaminophen ([place] 10/325 (Nf)) 1 tab PO Q4HR PRN Al Hydrox/Mg Hydrox/Simethicone (Maalox Plus*) 30 ml PO Q6H PRN Albuterol (Ventolin Hfa Inhaler*) 2 puff INH QID PRN Albuterol/Ipratropium (Duoneb (Albuterol 2.5 Mg/Ipratropium 0.5 Mg)) 1 neb INH [id number] AWAKE PRN Amitriptyline HCl (Elavil Tab*) 10 mg PO BEDTIME [facility] Aspirin (Aspirin Ec Tab*) 81 mg PO QAM [facility] Cetirizine HCl (Zyrtec*) 10 mg PO DAILY [facility] Cholecalciferol (Vitamin D Tab*) 1,000 units PO QAM [facility] Clopidogrel Bisulfate (Plavix Tab*) 75 mg PO DAILY [facility] Docusate Sodium (Colace Cap*) 200 mg PO BID [facility] Ezetimibe (Zetia Tab*) 10 mg PO QAM [facility] Famotidine (Pepcid Tab*) 20 mg PO DAILY [facility] Ferrous Sulfate (Ferrous Sulfate Tab*) 325 mg PO QAM [facility] Fluticasone Propionate (Flonase Nasal [place] 50mcg*) 2 spray BOTH NARES BID [facility] Fluticasone/Vilanterol (Breo Ellipta Mdi 100/25(Nf)) 1 puff INH DAILY [facility] Heparin Sodium (Porcine) (Heparin Vial(*)) 5,000 units SUBCUT Q8HR [facility] Ceftriaxone Sodium 1 gm/ (Sodium Chloride) 50 mls @ 200 mls/hr IVPB Q24H [facility] Azithromycin 500 mg/ Sodium (Chloride) 250 mls @ 250 mls/hr IVPB Q24H [facility] Isosorbide Mononitrate (Imdur Er Tab*) 120 mg PO DAILY [facility] Ketorolac Tromethamine (Ketorolac 0.5% Ophth (Nf)) 1 drop RIGHT EYE Q3H [facility] Levothyroxine Sodium (Synthroid Tab*) 175 mcg PO QAM [facility] Lisinopril (Prinivil Tab*) 20 mg PO DAILY [facility] Metoprolol Succinate (Toprol Xl Tab*) 25 mg PO BID [facility] Montelukast Sodium (Singulair Tab*) 10 mg PO QAM [facility] Nitroglycerin (Nitroglycerin Tab 0.4 Mg*) 0.4 mg SL Q5M PRN Ondansetron HCl (Zofran Inj*) 4 mg IV Q4H PRN Pantoprazole Sodium (Protonix Tab (Nf)) 40 mg PO BID [facility] Polyethyl Glycol/Propylene Glycol (Lubricant Eye Drops) 1 drop BOTH EYES Q2H PRN Pramipexole Dihydrochloride (Mirapex Tab*) 2 mg PO BEDTIME [facility] Prednisolone Acetate (Pred Forte 1%*) 1 drop RIGHT EYE Q3H [facility] Prochlorperazine Edisylate (Compazine Inj*) 10 mg IV Q6H PRN Senna (Senokot Tab*) 2 tab PO BID [facility] Torsemide (Demadex*) 10 mg PO QAM [facility] Venlafaxine HCl (Effexor Xr Cap*) 37.5 mg PO BEDTIME [facility] Vital Signs - 8 hr 04/14/18 04/14/18 04/14/18 07:35 07:56 08:00 Temperature 98.0 F Pulse Rate 62 Respiratory 20 20 Rate Blood Pressure 161/65 (mmHg) O2 Sat by Pulse 99 94 Oximetry 04/14/18 04/14/18 04/14/18 09:33 11:44 13:25 Temperature 97.8 F Pulse Rate 56 Respiratory 16 20 18 Rate Blood Pressure 147/45 (mmHg) O2 Sat by Pulse 98 Oximetry Oxygen Devices in Use Now: Nasal Cannula - 2L [facility] Appearance: Elderly female sitting in bed in no acute distress. Eyes: No Scleral Icterus, PERRLA Ears/Nose/Mouth/Throat: NL Teeth, Lips, Gums, Mucous Membranes Moist Neck: NL Appearance and Movements; NL JVP, Trachea Midline Respiratory: Symmetrical Chest Expansion and Respiratory Effort, - - Expiratory wheezes to bilat lower lobes Cardiovascular: NL Sounds; No Murmurs; No JVD, RRR, No Edema Abdominal: NL Sounds; No Tenderness; No Distention, No Hepatosplenomegaly Extremities: No Edema Skin: No Rash or Ulcers Neurological: Alert and Oriented x 3 Lines/Tubes/Other Access: Clean, Dry and Intact Peripheral IV Nutrition: Taking PO's Result Diagrams: 04/13/18 06:09 04/13/18 06:09 Assess/Plan/Problems-Billing Assessment: Ms. Martin is a 77 yo female with PMH of CAD with stenting in January, afib, anemia, VALENTIN, HTN, and chronic respiratory failure who presents with cough and SOB and was found to have left lower lobe pneumonia, now with trops trending up. - Patient Problems (1) Pneumonia Current Visit: Yes Status: Acute Priority: High Code(s): J18.9 - PNEUMONIA , UNSPECIFIED ORGANISM SNOMED Code(s): 947924407 Comment: - Left lung base density on CXR - Afebrile, WBC trending down - Procalcitonin 77 - Sputum culture resulted with yeast - Titrate oxygen - Continue ceftriaxone and azithromycin (2) Chest pain Current Visit: Yes Status: Acute Priority: High Code(s): R07.9 - CHEST PAIN, UNSPECIFIED SNOMED Code(s): 62099149 Comment: - No chest pain - Trops trending up, 0.05, 0.75, 0.9 - No EKG changes - Demand ischemia per cardiology (3) CAD (coronary artery disease) Current Visit: No Status: Chronic Priority: High Code(s): I25.10 - ATHSCL HEART DISEASE OF [place] CORONARY ARTERY W/O ANG PCTRS SNOMED Code(s): 76823476 Comment: - Cardiac cath 01/2018 - Continue imdur, amiodarone, plavix, nitro (4) Hypertension Current Visit: Yes Status: Chronic Priority: High Code(s): I10 - ESSENTIAL (PRIMARY) HYPERTENSION SNOMED Code(s): 55524137 Comment: - SBP 140-160 - Continue lisinopril, metoprolol, torsemide - Continue to monitor, may need to increase antihypertensives (5) Anemia Current Visit: Yes Status: Acute Priority: High Code(s): D64.9 - ANEMIA, UNSPECIFIED SNOMED Code(s): 626385533 Comment: - H&H - Continue ferrous sulfate (6) Asthma Current Visit: Yes Status: Chronic Priority: High Code(s): J45.909 - UNSPECIFIED ASTHMA, UNCOMPLICATED SNOMED Code(s): 846307616 Comment: - Continue breo elipta, albuterol, singulair (7) Atrial fibrillation Current Visit: Yes Status: Chronic Priority: High Code(s): I48.91 - UNSPECIFIED ATRIAL FIBRILLATION SNOMED Code(s): 52164539 Comment: - NSR - Continue metoprolol (8) Chronic hypoxemic respiratory failure Current Visit: Yes Status: Chronic Priority: High Comment: - Continue oxygen and medications as above (9) Obstructive sleep apnea Current Visit: No Status: Chronic Priority: High Code(s): G47.33 - OBSTRUCTIVE SLEEP APNEA (ADULT) (PEDIATRIC) SNOMED Code(s): 26194565 Comment: - Patient wears supplemental O2 overnight, but not CPAP (10) CKD (chronic kidney disease), stage III Current Visit: Yes Status: Chronic Priority: High Code(s): N18.3 - CHRONIC KIDNEY DISEASE, STAGE 3 (MODERATE) SNOMED Code(s): 608003373 Comment: - At baseline (11) Hypothyroidism Current Visit: No Status: Chronic Priority: High Code(s): E03.9 - HYPOTHYROIDISM, UNSPECIFIED SNOMED Code(s): 62087882 Comment: - Continue levothyroxine (12) HLD (hyperlipidemia) Current Visit: No Status: Chronic Code(s): E78.5 - HYPERLIPIDEMIA, UNSPECIFIED SNOMED Code(s): 49807716 Comment: - Continue zetia (13) RLS (restless legs syndrome) Current Visit: No Status: Chronic Priority: High Comment: - Continue mirapex (14) Full code status Current Visit: Yes Status: Acute Code(s): Z78.9 - OTHER SPECIFIED HEALTH STATUS SNOMED Code(s): 815242826 (15) DVT prophylaxis Current Visit: Yes Status: Acute Code(s): HIZ9126 - SNOMED Code(s): 406269455 Comment: - Heparin SQ Status and Disposition: Inpatient. Anticipate d/c home when medically stable, likely tomorrow.
--- NOTE | 2018-04-14 16:19 | CONS ---
CC: Dr. You Delgado; Dr. Manas Villeda * CARDIOLOGY CONSULTATION: DATE OF CONSULT: 04/13/18 INDICATION FOR CONSULT: Positive troponins, known coronary artery disease. HISTORY OF PRESENT ILLNESS: The patient is a 77-year-old female with multiple medical problems including coronary artery disease, paroxysmal atrial fibrillation, and renal insufficiency. She was admitted to the hospital with cough and shortness of breath. The patient states that she has been feeling poorly for a couple of days. She has been having a productive cough. Occasionally, it is blood tinged. She has been feeling short of breath. The patient ultimately came to the emergency room and was admitted to the hospital with diagnosis of bronchitis. The patient had denied any significant episodes of chest pain. Prior to the arrival in the emergency room, the patient states in the emergency room, she was having some atypical chest pain and troponins were evaluated. Her initial troponin level was unremarkable. Her troponins on the next day had risen to a maximum of 0.9. In speaking with the patient, she states her major compliant is the viral syndrome and bronchitis that she has been experiencing; again, she denied any true anginal type symptoms when she came to the emergency room. Again, in the emergency room, she was having some degree of chest pain associated with her shortness of breath. PAST MEDICAL HISTORY: Significant for coronary artery disease, history of stenting to her left circumflex artery in January of this year, anemia, COPD, renal insufficiency, asthma, paroxysmal atrial fibrillation, restless legs syndrome. OUTPATIENT MEDICATIONS: 1. Plavix 75 mg a day. 2. Metoprolol tartrate 25 mg b.i.d. 3. Repatha. 4. Isosorbide ER 120 mg a day. 5. Amlodipine 10 mg a day. 6. Zetia 10 mg a day. 7. Omeprazole 40 mg a day. 8. Oxygen as needed. 9. Torsemide 10 mg a day. 10. Singulair 10 mg. 11. Albuterol inhaler. 12. Venlafaxine 37.5 mg daily. 13. Amitriptyline 10 mg q.h.s. 14. Levothyroxine 175 mcg a day. 15. Iron tablets. 16. Amiodarone 200 mg a day, which is on hold at this time. 17. Breo inhaler. 18. Aspirin 81 mg a day. 19. Lisinopril 20 mg a day. 20. Ranitidine 150 mg after supper. ALLERGIES: She is intolerant of Lipitor, simvastatin, Crestor, theophylline, fentanyl, amitriptyline. FAMILY HISTORY: No family history of early coronary disease or cardiac arrhythmias. SOCIAL HISTORY: She is . She denies tobacco or alcohol use. She is retired. She does not get any regular exercise. REVIEW OF SYSTEMS: Positive for cough, positive for shortness of breath. Negative for fevers or chills. Negative for changes in bowel or bladder habits. Other 12- point review is unremarkable. PHYSICAL EXAM: Height is 5 feet 1 inch, weight 249 pounds. Temperature 97.6, heart rate is 58, respiratory rate 16, blood pressure 140/53, oxygen saturation 99% on 3 L. Sclerae anicteric. Oropharynx is pink without erythema. Carotids are 2+ without bruits. JVD is normal. Thyroid is normal. Cardiac Exam: S1, S2 without any murmurs, rubs, or gallops. Lungs: Clear to auscultation bilaterally with no dullness to percussion. Abdomen is soft, nontender, nondistended with normoactive bowel sounds. Extremities show no edema. She has 2+ pulses throughout. The patient is awake, alert, and oriented. She moves all 4 extremities equally. DIAGNOSTIC STUDIES/LAB DATA: The patient did have an outpatient evaluation. Recently, she underwent a chemical nuclear stress test on 03/26/18, which demonstrated normal perfusion throughout the myocardium. No evidence of ischemia. Normal LV function. Normal TID. Chemistries within normal limits. BUN 40, creatinine 1.6. Troponins were as described above. White count 12.4, hemoglobin 8.4, hematocrit 25, platelet count 146. EKG showed normal sinus rhythm with right bundle branch block. No ST changes compared to previous EKGs. IMPRESSION AND PLAN: This is a 77-year-old female with history of renal insufficiency, hypertension, coronary artery disease, who was admitted to the hospital with bronchitis-type symptoms. In the emergency room, she had some atypical chest pain and now has mildly elevated troponin levels. The patient did have a stress test through our office within the last 2 weeks, which showed normal perfusion throughout the myocardium. At this point, I think the patient's elevated troponins are just secondary to stress associated with her bronchitis-type symptoms. I am not convinced the patient has an acute coronary syndrome. The patient does have renal insufficiency, thus I think a cardiac catheterization is not warranted at this point. The patient did have a stress test within the last 2 weeks, which demonstrated normal perfusion. The patient will continue to be treated for her bronchitis. The patient will follow up with Dr. Delgado as an outpatient. [id number] #: [id number] MTDD
[2018-04-14] MEDS: Azithromycin IV(*) 500 MG in NS 0.9% 250 ML* 250 ML IVPB SCH (16:49)
[2018-04-14] MEDS: cefTRIAXone(*) 1 GM in NS 0.9% 50 ML* 50 ML IVPB SCH (20:31)
[2018-04-14] MEDS: Amitriptyline TAB* 10 MG PO SCH (20:37)
[2018-04-14] MEDS: Venlafaxine EXT RELEASE CAP* 37.5 MG PO SCH (20:38)
[2018-04-14] MEDS: Pramipexole TAB* 0.5 MG PO SCH (20:38)
[2018-04-14] MEDS ORDERED: Benzonatate CAP* 100 MG PO PRN (21:32)
[2018-04-15] MEDS: KETOROLAC 0.5% RIGHT EYE SCH ×5 (00:20→11:09)
[2018-04-15] MEDS: PREDNISOLONE 1% RIGHT EYE SCH ×5 (00:20→11:09)
[2018-04-15] MEDS: Hydrocodone/Acetamin 10/325 1 TAB PO PRN ×2 (04:49→08:50)
[2018-04-15] MEDS: Polyethyl Glycol/Propylene Gly OPHTH.SOLN BOTH EYES PRN ×3 (04:54→11:11)
[2018-04-15] MEDS: Heparin VIAL(*) 5000 UNITS/ML VIAL (FIVE THOUSAND) SUBCUT SCH (05:35)
[2018-04-15] MEDS: NF:Fluticasone/Vilanterol MDI(NF) 100/25 MDI INH SCH (07:50)
[2018-04-15 08:31] VITALS: BP 151/57
[2018-04-15] MEDS: Senna TAB PO SCH (08:49)
[2018-04-15] MEDS: Famotidine TAB* 20 MG PO SCH (08:49)
[2018-04-15] MEDS: Ezetimibe TAB* 10 MG PO SCH (08:51)
[2018-04-15] MEDS: Torsemide TAB* 20 MG PO SCH (08:51)
[2018-04-15] MEDS: Isosorbide Mononitrate ER TAB* 60 MG PO SCH (08:52)
[2018-04-15] MEDS: Docusate CAP* 100 MG PO SCH (08:52)
[2018-04-15] MEDS: Lisinopril TAB* 10 MG PO SCH (08:52)
[2018-04-15] MEDS: Metoprolol Succinate XL TAB* 25 MG PO SCH (08:52)
[2018-04-15] MEDS: Aspirin EC TAB* 81 MG TAB.EC PO SCH (08:53)
[2018-04-15] MEDS: Ferrous Sulfate TAB* 325 MG PO SCH (08:53)
[2018-04-15] MEDS: Clopidogrel TAB* 75 MG PO SCH (08:53)
[2018-04-15] MEDS: Cholecalciferol TAB* 1000 UNITS PO SCH (08:53)
[2018-04-15] MEDS: Levothyroxine TAB* 175 MCG TAB PO SCH (08:53)
[2018-04-15] MEDS: Cetirizine* 10 MG TAB PO SCH (08:54)
[2018-04-15] MEDS: CMC:Pantoprazole TAB (NF) 40 MG TAB PO SCH (08:54)
[2018-04-15] MEDS: Montelukast Sodium TAB* 10 MG PO SCH (08:54)
[2018-04-15] MEDS: Fluticasone NASAL SPRAY 50MCG* 16 gm SPRAY BTL BOTH NARES SCH (08:55)
--- NOTE | 2018-04-16 05:17 | DS ---
CC: Manas Villeda MD; You Delgado DO * DISCHARGE SUMMARY: DATE OF ADMISSION: 04/12/18 DATE OF DISCHARGE: 04/15/18 PRIMARY CARE PROVIDER: Manas Villeda MD. BLUEPRINT READER: You Delgado DO. ATTENDING PHYSICIAN: Bryson Steiner MD * (dictated by Maryjane Carpenter NP). PRIMARY DIAGNOSES: 1. Pneumonia. 2. Chest pain. SECONDARY DIAGNOSES: 1. Coronary artery disease. 2. Hypertension. 3. Anemia. 4. Asthma. 5. Atrial fibrillation. 6. Chronic hypoxic respiratory failure. 7. Chronic kidney disease stage 3. 8. Hypothyroidism. 9. Hyperlipidemia. 10. Restless legs syndrome. STUDIES WHILE IN THE HOSPITAL: Chest x-ray on 04/12/18, reads as worsening aeration when compared to 01/31/18 chest x-ray. Depending on the clinical presentation, there could be pneumonia at the left lung base and/or pulmonary vascular congestion. CONSULTATIONS WHILE IN THE HOSPITAL: Dr. Hilliard saw the patient on 04/13/18, for a Cardiology consult because of her elevated troponins. He noted that she had a stress test within the last 2 weeks as an outpatient which showed normal perfusion and he felt as though the elevated troponins were secondary to her pulmonary symptoms. He did not feel as though the patient had an acute coronary syndrome and recommended that the patient followup with Dr. Delgado as an outpatient. DISCHARGE MEDICATIONS: New home medications: 1. Azithromycin 250 mg p.o. daily for 6 days. 2. Tessalon 100 mg p.o. t.i.d. p.r.n. Continued home medications: 1. Albuterol MDI 2 puffs q.i.d. p.r.n. 2. Amitriptyline 10 mg p.o. at bedtime. 3. Aspirin 81 mg p.o. daily. 4. Vitamin D 1000 units p.o. daily. 5. Plavix 75 mg p.o. daily. 6. Docusate 200 mg p.o. b.i.d. 7. Zetia 10 mg p.o. daily. 8. Ferrous sulfate 325 mg p.o. daily. 9. Fluticasone 2 sprays both nares b.i.d. 10. Hydrocodone/acetaminophen 10/325 mg 1 to 2 tabs p.o. q. 4 hours p.r.n. 11. Imdur ER 120 mg p.o. daily. 12. Levocetirizine dihydrochloride 5 mg p.o. daily. 13. Levothyroxine 175 mg p.o. daily. 14. Lisinopril 20 mg p.o. daily. 15. Metoprolol succinate XL 25 mg p.o. b.i.d. 16. Singulair 10 mg p.o. daily. 17. Nitroglycerin 0.4 mg sublingual q. 5 minutes p.r.n. 18. Omeprazole 40 mg p.o. b.i.d. 19. Pramipexole dihydrochloride 2 mg p.o. at bedtime. 20. Ranitidine 150 mg p.o. daily. 21. Senna 8.6 mg 2 tabs p.o. b.i.d. 22. Torsemide 10 mg p.o. daily. 23. Venlafaxine 37.5 mg p.o. at bedtime. 24. Acetaminophen 650 mg q. 6 hours p.r.n. 25. Albuterol nebulizer 2.5 mg/3 mL 1 neb q.i.d. p.r.n. 26. Amlodipine 10 mg p.o. daily. 27. Caltrate 600+ D, 1 tab p.o. b.i.d. 28. Advair 500/50, 1 puff daily. 29. Multivitamin 1 cap p.o. daily. 30. Shark Fin Cartilage 1000 mg p.o. b.i.d. 31. Vitamin B complex 1 cap p.o. daily. Discontinued home medications: 1. Breo Ellipta MDI 1 puff daily. HISTORY OF PRESENT ILLNESS AND HOSPITAL COURSE: Ms. Martin is a 77-year-old female with a past medical history of CAD with cardiac catheterization in January 2018, AFib, chronic respiratory failure, obstructive sleep apnea, asthma, GERD, and hypertension who presented to the emergency room on 04/12/18 with complaints of cough and shortness of breath. Please see the history and physical by PHYLLIS Lara, for a complete of summary of the events leading up to this admission, but in short, the patient reported a 4-day history of productive cough and shortness of breath. In the emergency room, she was found to have an elevated white blood count of 20,000 and an elevated CRP. Chest x-ray results are noted above. The patient was ultimately admitted for community-acquired pneumonia. She was started on IV ceftriaxone and azithromycin. She typically wears 2 L of oxygen at night for her VALENTIN but was requiring oxygen 24/7 up until the day of discharge. She did have an elevated procalcitonin of 77. Her sputum culture grew only yeast. The patient's anemia during this admission appears to be at her baseline with an H and H of 8.4 and 25. She was noted to have elevated troponins peaking up to 0.9 at which time, Cardiology was asked to consult. The consultation is noted above, although Dr. Hilliard felt as though the bump in troponins was likely demand ischemia. During this hospitalization, her creatinine appears to be at her baseline and there was no concern for acute kidney injury. She remained in normal sinus rhythm for the duration of her stay. As of the day of discharge, the patient is no longer requiring oxygen while awake and reports feeling more at her baseline. Her white count has decreased. Ms. Martin is stable for discharge home today. Vital signs are as follows: Temperature 98.0, heart rate 64, respiratory rate 18, oxygen saturation 97% on room air, blood pressure 151/57. DISCHARGE PLAN: Ms. Martin will be discharged to home. Activity will be as tolerated. Diet will be heart healthy. Medications are noted above, although the patient will be prescribed azithromycin to complete a 7-day course. She has also been prescribed Tessalon PRN as she has been complaining of a frequent cough. She should followup with her primary care provider in 4 to 7 days. She will resume her usual home care through [facility]. They have been notified of her discharge by case management. The patient should return to the emergency room or nearest hospital for any worsening of symptoms, shortness of breath, lightheadedness, dizziness, chest discomfort, high fevers, chills, night sweats, loss of consciousness, or any other worrisome signs or symptoms. She is in understanding of all discharge plans and instructions. This is a summarized report of a complex medical history and hospital stay. For further details, please see the entire medical record. TIME SPENT: Approximately 45 minutes were spent on this discharge. Greater than half of that time was spent [id number] with the patient discussing discharge plans and instructions. MARYJANE CARPENTER, QUALITY ASSURANCE TECHNICIAN [id number] #: [id number] PAMELA
== END 2018-04-15 11:30 | disposition home health service (06) | DRG 194 ==
LOC: ED 16:33 → MEDTELE 20:04 → OBSVTOIN 04-13 11:15
PROVIDERS: ADMIT Hospitalist; ATTEND Internal Medicine
DX: J18.1 Lobar pneumonia, unspecified organism (principal); J44.0 Chronic obstructive pulmonary disease with (acute) lower respiratory infection; 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 kidney disease with heart failure and stage 1 through stage 4 chronic kidney disease, or unspecified chronic kidney disease; J96.11 Chronic respiratory failure with hypoxia; I24.8 Other forms of acute ischemic heart disease; Z68.42 Body mass index [BMI] 45.0-49.9, adult; G47.33 Obstructive sleep apnea (adult) (pediatric); D64.9 Anemia, unspecified; G25.81 Restless legs syndrome; G89.29 Other chronic pain; K21.9 Gastro-esophageal reflux disease without esophagitis; E03.9 Hypothyroidism, unspecified; I25.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 native coronary artery without angina pectoris; M79.7 Fibromyalgia; Z96.643 Presence of artificial hip joint, bilateral; E66.01 Morbid (severe) obesity due to excess calories; N18.3 Chronic kidney disease, stage 3 (moderate); E78.5 Hyperlipidemia, unspecified; F32.9 Major depressive disorder, single episode, unspecified; I50.9 Heart failure, unspecified; G25.2 Other specified forms of tremor; H91.90 Unspecified hearing loss, unspecified ear; M19.90 Unspecified osteoarthritis, unspecified site; F40.240 Claustrophobia; H26.9 Unspecified cataract; I48.0 Paroxysmal atrial fibrillation; R07.9 Chest pain, unspecified; Z79.02 Long term (current) use of antithrombotics/antiplatelets; Z95.5 Presence of coronary angioplasty implant and graft; Z99.81 Dependence on supplemental oxygen; Z98.41 Cataract extraction status, right eye; Z98.1 Arthrodesis status; Z90.49 Acquired absence of other specified parts of digestive tract; Z88.8 Allergy status to other drugs, medicaments and biological substances; Z88.1 Allergy status to other antibiotic agents; Z91.041 Radiographic dye allergy status; Z82.49 Family history of ischemic heart disease and other diseases of the circulatory system; Z97.4 Presence of external hearing-aid; Z82.3 Family history of stroke; Z83.3 Family history of diabetes mellitus; Z72.89 Other problems related to lifestyle; I25.2 Old myocardial infarction; Z79.82 Long term (current) use of aspirin
CPT/HCPCS: 36415; 71045; 80048; 80053; 81003; 81015; 83605; 83735; 83880; 84145; 84484; 85025; 85610; 85730; 86140; 87040; 87070; 87205; 87899; 93005; 99284; A9270-GY; G0378; J0456; J0696; J0780; J1100; J1644; J2405

== ENCOUNTER 2018-05-20 13:04 | Emergency (ER) | payer MEDICARE ==
--- OUTSIDE RECORDS SUMMARY | 2018-05-20 13:35 | XMS REPORT ---
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 Active Onset: 2013 Gouty arthropathy Manas Villeda M.D. Active Onset: 2013 Restless legs Manas Villeda M.D. Active Onset: 2013 Essential hypertension Manas Villeda M.D. Active Onset: 2013 Asthma without status asthmaticus Manas Villeda M.D. Active Onset: 2013 Degenerative joint disease involving Manas Villeda M.D. Active multiple joints Onset: 2013 Mixed hyperlipidemia Manas Villeda M.D. Active Onset: 2013 Gastroesophageal reflux disease Manas Villeda M.D. Active Onset: 03/16/2018 Chronic pain syndrome Manas Villeda M.D. Active Family History Date Family Member(s) Problem(s) Comments Father Coronary Artery Disease (CAD) Social History Type Date Description Comments Smoking Patient has never smoked Allergies, Adverse Reactions, Alerts Date Description Reaction Status Severity Comments 2013 Asa gastric ulcer active 2013 Gabitril rash active 2013 Naprosyn rash active 2013 Cytotec rash active 2013 Lipitor leg weakness active 2013 Zanaflex hallucinations active 2013 Contrast Dye visual chnages active 2013 Impramine dianrrhea itch headaches active Medications Medication Date Status Form Strength Qnty SIG Indications Ordering Provider Primidone 05/19 Active Tablets 50mg 270tabs Take 3 Tablets Darlow, Every M.D. Night AT Bedtime Tessalon Perles 04/20 Active Capsules 100mg 45caps one by Brian Vergara ke young MD times a day as needed cough Plavix 03/16 Active Tablets 75mg 90tabs 1 by Manas A. mouth Darlow, every day M.D. Ranitidine HCL 12/16 Active Tablets 150mg 90tabs take one Manas tablet by ke Villeda M.DKandi once daily in the evening Levothyroxine 08/29 Active Tablets 175mcg 90tabs 1 by Veronica mouth Amaris, every day [employer] Flovent HFA 05/07 Active Aerosol 110mcg/Ac 12gm 1 puff R13.10 t daily to Amaris, tongue, [employer] swallow; samples Ferrous Sulfate 01/29 Active Tablets 325(65Fe) 90tabs 1 by Manas AKandi mg mouth Darlow, every day M.D. Amiodarone HCL 01/09 Active Tablets 200mg 360tabs 1 by Veronica mouth qd Amaris, [employer] Nitroglycerin 10/28 Active Tablets 0.4mg 30tabs 1 sl as Sub needed Amaris, pain, may [employer] repeat q5 min, if no relief after 2, call 911 Hydrocodone-Acet 02/06 Active Tablets 10-325mg 240tabs 1-2 every G89.4 Zulema aminophen /2015 6 hours [place], as needed Afnp-C pain Venlafaxine HCL 04/07 Active Caps ER 37.5mg 90caps Take 1 R23.2 Veronica ER /2014 24HR Capsule Amaris, po qhs [employer] Levocetirizine 07/12 Active Tablets 5mg 90tabs take 1 Veronica Dihydrochloride tablet Amaris, every day [employer] Omeprazole 05/02 Active Capsules 40mg 180caps take [address] adi Villeda, qd M.Reanna Ventolin HFA Active Aerosol 108(90Bas 3units 2 puffs Veronica /0000 e) every 6 Amaris, mcg/Act hours as [employer] needed Albuterol Active Nebulizer (2.5mg/3M 180ml use four Veronica Sulfate / L) 0.083% times a Amaris, day as [employer] needed Colace Active Capsules 100mg 540caps 1 by Veronica /0000 mouth Amaris, twice a [employer] day for bowels Multivitamin Active Tablets 100tabs 1 po qd Unknown With Folic Acid / supplemen t Senna S Active Tablets 8.6-50mg 180tabs 1 by Veronica /0000 mouth Amaris, twice a [employer] day Calcium/Mag Active Chewtabs 30units 1 po qd Unknown /0000 Singulair Active Tablets 10mg 90tabs take 1 Veronica /0000 tablet Maaris, every day [employer] Fluticasone Active Suspension 50mcg/Act 48units Use 2 Veronica Propionate /0000 Sprays In Amaris, Each [employer] Nostril AT Bedtime Acetaminophen Active Tablets 325mg take two Unknown /0000 tablets by mouth three times a day as needed maximum daily dose=6 tablets Caltrate 600+D Active Tablets 600-800mg 1 by Unknown /0000 -Unit mouth every day Torsemide Active Tablets 10mg take 1 Unknown /0000 pills a day Aspirin Active Tablets DR 81mg 1 by Unknown /0000 mouth every day Vitamin D Active Tablets 1000Unit 2 by Unknown /0000 mouth every day Vitamin B Active Tablets 1 by Unknown Complex W/ B12 /0000 mouth every day Shark Cartilage Active Capsules 500mg 2 po tid Unknown /0000 Nasacort Allergy Active Aerosol 55mcg/Act spray 2 Unknown 24HR /0000 sprays in each nostril bid Ezetimibe Active Tablets 10mg 1 by Unknown /0000 mouth every day Melatonin Active Capsules 10mg 1 cap by Unknown /0000 mouth every day at bedtime Lisinopril Active Tablets 20mg 1 by Unknown /0000 mouth every day Metoprolol Active Tablets ER 50mg 1 by Unknown Succinate ER /0000 24HR mouth bid Repatha Active Soln 140mg/ml 140 mg sc Unknown /0000 Prefill q2wk Syringe Amlodipine Active Tablets 5mg 180tabs Take 2 Manas A. Besylate /0000 Tablets Darlow, Every Day M.D. Isosorbide Active Tablets ER 60mg 180tabs Take 2 Manas A. Mononitrate ER /0000 24HR Tablets Darlow, Every Day M.D. Amitriptyline Active Tablets 10mg 90tabs Take 1 Veronica HCL /0000 Tablet AT [facility], Bedtime [employer] Pramipexole Active Tablets 1mg 180tabs Take 2 Veronica Dihydrochloride /0000 Tablets Amaris, Every [employer] Night AT Bedtime Prednisone 01/16 Hx Tablets 10mg 19tabs 4 by mouth x 2 Amaris, - days, [employer] 02/04 then 3 by mouth x 2 days, then 2 by mouth x 2 days,then 1 by mouth x 1 day Nitrofurantoin 09/22 Hx Capsules 100mg 14caps 1 by Manas A. Monohyd Macro mouth two Darlow, - times a M.D. Amoxicillin 08/29 Hx Tablets 875mg 20tabs 1 tab Veronica twice a Amaris, - day x 10 [employer] Amoxicillin 08/20 Hx Tablets 875mg 14tabs 1 tab Manas A. twice a Darlow, - day x 7 M.D. Breo Ellipta 02/28 Hx Aerosol 100-25mcg 60units 1 Veronica /Inh inhalatio Amaris, - n once [employer] 04/20 per day, rinse after use Amiodarone HCL 01/09 Hx Tablets 200mg 120tabs 2 by mouth bid Amaris, - [employer] 04/10 Zostavax 12/24 Hx Suspension [id number]/ 1units inject Rec 0.65ML subq x 1 Amaris, - [employer] 08/20 Amiodarone HCL 12/24 Hx Tablets 400mg 180tabs 1 by Veronica mouth Amaris, - twice a [employer] Atrovent HFA 10/22 Hx Aerosol 17mcg/Act 12.900g 2 puffs m qid prn Amaris, - shortness [employer] 11/27 breath, asthma symptoms Multaq 10/03 Hx Tablets 400mg 180tabs take one tablet by Amaris, - mouth [employer] 12/24 twice a day Lisinopril 10/03 Hx Tablets 20mg 1 by mouth - every day 11/27 Metoprolol 10/03 Hx Tablets 25mg 180tabs 1 by Veronica Tartrate mouth Amaris, - twice a [employer] Rosuvastatin 10/03 Hx Tablets 20mg 1 by Unknown mouth - every day 11/28 Aspirin 10/[address] 81mg 1 by mouth - every day 11/08 Hydromorphone 09/16 Hx T24a 8mg 30units 1 po G89.4 Veronica HCL daily by Amaris, - mouth, [employer] 10/22 nte pill daily Venlafaxine HCL 08/14 Hx Tablets 37.5mg 90tabs take 3 by G89.4 Veronica mouth Amaris, - daily [employer] 11/27 Cyclobenzaprine 08/14 Hx Tablets 5mg 60tabs one to G89.4 Veronica HCL two Amaris, - tablet [employer] 10/22 every hours as needed pain Chair Lift 08/14 Hx due to G89.4 Veronica significa Amaris, - nt [employer] 09/15 chronic pain and immobilit y, a chair lift is required for adl's and self cares Dilaudid 08/14 Hx Tablets 2mg 30tabs 1 by mouth Amaris, - twice [employer] 10/22 daily needed for severe pain caution: sedation, alcohol Amoxicillin 06/07 Hx Tablets 875mg 14tabs 1 tab J01.90 twice a Amaris, - day x 7 [employer] 08/13 days Prednisone 06/07 Hx Tablets 5mg 78tabs 12 by mouth Amaris, - today, [employer] 08/13 decrease 2017 by 1 every day until gone Furosemide 04/10 Hx Tablets 40mg 30tabs 2 po qd G47.62 Amaris, - [employer] 04/10 Portable Oxygen 04/10 Hx small R09.02 portable Amaris, - tank for [employer] 11/27 travel away from home Simply Saline 04/10 Hx Aerosol 0.9% 1Bottle 2 sprays each Amaris, - nostril [employer] 11/27 daily Pulse Oximeter 04/10 Hx for use R09.02 with Amaris, - oxygen [employer] 11/27 therapy desired range is >90% Clonazepam 04/10 Hx Tablets 0.5mg 30tabs 1/2 to 1 G47.62 tab by Amaris, - mouth qhs [employer] 09/16 prn insomnia --caution sedation with norco Hydrocodone 02/06 Hx Solution 60-4-5mg/ G89.4 Veronica Bitartrate/Chlor 5ML Amaris, pheniramine - [employer] Maleate/Pse 02/06 Hydrocodone-Acet 02/06 Hx Tablets 7.5-325mg 240tabs 1-2 every G89.4 Veronica aminophen 6 hours Amaris, - as needed [employer] 02/06 pain nte 8 tabs per day Propranolol HCL 01/04 Hx Tablets 40mg 60tabs take one Manas A. tablet by Christiana, - mouth M.D. 01/04 twice a day Propranolol HCL 01/04 Hx Tablets 40mg 180tabs Take 1 Manas Tablet Darmax, - Twice M.D. 09/16 Daily Fentanyl 08/11 Hx Patches 100mcg/HR 10units place one G89.4 Veronica 72HR patch Amaris, - every 3 [employer] Hydromorphone 06/30 Hx Tablets 2mg Veronica HCL Amaris, - [employer]INE 06/30 Dilaudid 06/30 Hx Tablets 2mg 30tabs 1 po Veronica /2015 twice Amaris, - daily as [employer] 08/11 needed for severe pain caution: sedation, alcohol Breo Ellipta 02/27 Hx Aerosol 100-25mcg 3units 1 puff Veronica /2014 /Inh daily Amaris, - [employer]INE 01/02 Hydrocodone-Acet 01/11 Hx Tablets 10-325mg 120tabs 1 by G89.4 Veronica aminophen mouth Amaris, - every 6 [employer] 02/06 hours pain Hydrocodone 01/09 Hx Tablets 10-300mg 90tabs Veronica Bitartrate/Aceta Amaris, minophen - [employer]INE 01/11 Venlafaxine HCL 10/27 Hx Caps ER 37.5mg 30caps 1 by 782.62 Veronica ER 24HR mouth Amaris, - every day [employer] 02/27 Symbicort 10/10 Hx Aerosol 160-4.5mc sample 2 puffs Manas A g/Act once a Darmax, - day M.D. 02/27 Biaxin 10/04 Hx Tablets 500mg 20tabs take one 465.9 tablet by Amaris, - mouth [employer] 01/09 twice a day x 10 days finish all medicatio n Benzonatate 10/04 Hx Capsules 200mg 30caps 1 three 786.2 Veronica /2015 times a Amaris, - day as [employer] 01/09 needed cough Nebulizer Set Up 10/04 Hx 1units dispense 786.2 Veronica And one Amaris, - machine [employer] 01/02 nebulizer Ipratropium 10/04 Hx Solution 0.5-2.5(3 180ml inhale 1 R05 Veronica Nokomis/Albutero )mg/3ML three Amaris, l Sulfate - times a [employer] 09/16 day x weeks Nabumetone 09/08 Hx Tablets 500mg 180tabs Take 1 Tablet Amaris, - Twice [employer] 08/14 Cyclobenzaprine 09/05 Hx Tablets 5mg 180tabs one to M79.1 Veronica two Amaris, - tablet [employer] 01/02 night at bedtime as needed Amoxicillin 09/05 Hx Tablets 500mg 21tabs 1 tab by 465.9 mouth Amaris, - three [employer] 10/04 times day x 7 days samples Oxycodone-Acetam 08/08 Hx Tablets 10-325mg 200tabs 1-2 by mouth Amaris, - every 4 [employer] 01/09 hours needed Prednisone 06/13 Hx Tablets 5mg 30tabs take 2 by 724.5 mouth Amaris, - twice a [employer] 01/09 day x days, then take 1 by mouth three times a day x 3 days, then take 1 by mouth twice a day x 3 d Nabumetone 05/02 Hx Tablets 500mg 60tabs 1 po bid Amaris, - [employer] 09/05 Oxycodone/Acetam 05/02 Hx Tablets 10-325mg 50tabs 1-2 po Amaris, inophen q4hrs prn Veronica, - [employer]-F 08/08 Oxycodone/Acetam 13 Hx Tablets 10-325mg 50tabs 1-2 po Amaris, inophen q4hrs prn Veronica, - [employer]ICIAN-F 07/04 Oxycodone/Acetam 05/02 Hx Tablets 10-325mg 50tabs 1-2 po Amaris, q4hrs prn Veronica, - [employer]NICIAN-F 07/04 Oxycodone-Acetam 05/02 Hx Tablets 10-325mg 50tabs 1-2 po Veronica q4hrs prn Amaris, - [employer] 07/04 Ondansetron HCL 05/02 Hx Tablets 8mg 30tabs 1 every 8 787.02 hours prn Amaris, - nausea [employer] 05/02 Ondansetron HCL 05/02 Hx Tablets 8mg 50tabs 1 by R11.0 mouth Amaris, - every 8 [employer] 05/10 hours needed nausea Venlafaxine HCL 05/02 Hx Tablets 50mg 90tabs 1/2 tab 782.62 by mouth Amaris, - daily [employer] 05/02 Venlafaxine HCL 05/02 Hx Tablets ER 37.5mg 30tabs 1 by 782.62 Karlee ER 24HR mouth Gen, - daily [employer] 10/27 Famotidine 04/14 Hx Tablets 40mg 60tabs 1 by 530.81 Manas A. mouth Christiana, - twice a M.D. Nizatidine 04/05 Hx Capsules 150mg 180caps take one 530.81 Manas capsule Darlow, - by mouth M.D. 04/14 twice a day Clonidine HCL 02/28 Hx Tablets 0.1mg 90tabs take one tablet by Christiana, - mouth at M.D. 01/09 bedtime Sucralfate 02/14 Hx Tablets 1gm 270tabs 1 by 782.62 Manas mouth Christiana, - three M.D. 05/02 times day Labs 01/06 Hx 24-hr 782.62 Manas urinary Christiana, - 5-hiaa M.D. 02/14 serotonin Serum chromogra ejssie A, b, C Vitamin B-12 01/06 Hx Tablets 1000mcg 1 po qd Manas Arzate /2013 Samia Liriano M.D. 01/06 Oxycodone/Acetam Hx Tablets 10-325mg 50tabs 1-2 po Unknown inophen /0000 q4hrs prn - 05/02 Omeprazole Hx Capsules 40mg 180caps 1 po bid 530.81 Manas A. / Samia Lance M.D. 04/05 Nabumetone Hx Tablets 500mg 60tabs 1 po bid Manas A. / Samia Villeda M.D. 04/05 Advair Diskus Hx Aerosol 500-50mcg 60units inhale 1 Unknown /0000 /Dose dose by - mouth 10/10 twice a day rinse mouth after use Allopurinol Hx Tablets 300mg 90tabs 1 by Manas A. /0000 ke Villeda - every day Clotilde.Reanna 01/09 B Complex Hx Tablets Unknown / - 02/27 Vitamin B-12 Hx Tablets 500mcg 30tabs 1 po qd Unknown /0000 - 01/06 Iron Supplement Hx Tablets 100tabs 1 po qd Unknown /0000 - 02/27 Vitamin D3 Hx Capsules 2000Unit 1 po qd Unknown /0000 - 02/27 Shark Cartilage Hx Capsules 2 po bid Unknown /0000 - 11/27 MS Contin Hx Tablets ER 1 po q hs Unknown /0000 prn - 06/30 Advair Diskus 00 Hx Aerosol 500-50mcg inhale Unknown /0000 /Dose 1-2 pufsf - by mouth 02/04 two times /2017 daily or use Breo instead but Not both Torsemide 00 Hx Tablets 20mg 90tabs Take 2 Veronica /0000 Tablets Amaris, - Every [employer] 11/27 Day, Alternati ng With Furosemid e Klor-Con M20 Hx Tablets ER 20Meq 90tabs Take 1 Brian J. /0000 Tablet Breiman, - Every Day M.D. 11/27 Furosemide Hx Tablets 80mg 45tabs Take 1 Veronica /0000 Tablet Amaris, - Every [employer] 09/16 Day Alternati ng With Torsemide Vitamin D Hx Capsules 1000Unit 2 by Unknown (Cholecalciferol /0000 mouth ) - every day 11/27 Vitamin B Hx Tablets 1 by Unknown Complex /0000 mouth - every day 11/27 Ranitidine HCL Hx Capsules 150mg take 1 Unknown /0000 capsule - by mouth 11/27 twice day Isosorbide Hx Tablets ER 30mg 90tabs 1 by Manas A. Mononitrate ER /0000 24HR mouth bid Christiana, - M.D. 08/29 Sucralfate Hx Tablets 1gm 1 prior Unknown /0000 to eating - three 07/25 daily Ferrous Sulfate Hx Tablets 325(65Fe) 90tabs 1 by Veronica /0000 mg mouth Amaris, - every day [employer] 08/20 Amitriptyline Hx Tablets 1mg 1 by Unknown HCL /0000 mouth - every day 11/28 Amlodipine Hx Tablets 5mg 1 by Unknown Besylate /0000 mouth - every day 04/10 Proventil HFA Hx Aerosol 108(90Bas use 2 Unknown /0000 e) inhalatio - mcg/Act ns by 09/24 mouth times daily as needed for cough/whe david Amoxicillin Hx Capsules 250mg 1 by Unknown /0000 mouth - three 04/10 times day Metoprolol Hx Tablets ER 25mg 90tabs 1 by Manas A. Succinate ER /0000 24HR mouth Darlow, - every day M.D. 07/09 Torsemide Hx Tablets 20mg take one Unknown /0000 tablet by - mouth 07/09 daily needed Primidone 00 Hx Tablets 50mg 90tabs take 3 Manas A. /0000 tablets Darlow, - every M.D. 02/04 night at /2017 bedtime Levothyroxine Hx Tablets 137mcg 90tabs Take 1 Veronica Sodium /0000 Tablet Amaris, - Every Day [employer] 08/29 Ranexa Hx Tablets ER 500mg 1 po bid Unknown /0000 12HR - 03/16 Plavix Hx Tablets 75mg 1 by Unknown /0000 mouth - every day 02/04 Brilinta 00 Hx Tablets 90mg 1 by Unknown /0000 mouth - twice a Fluticasone Hx Aerosol 500-50 1 puff Unknown Propionate/Salme /0000 daily terol - 03/16 Immunizations CPT Code Status Date Vaccine Lot # [id number] Given 05/15/2018 High-Dose, Influenza Virus Vacccine-fluzone 65 and [id number] older 76012 Given 04/10/2017 High-Dose, Influenza Virus Vacccine-fluzone 65 and [id number] older 36129 Given 12/24/2016 Tdap Tetanus, W Pertussis [id number] Given 12/24/2016 Pneumococcal Conjugate Vacc-13 [id number] 76783 Given 04/10/2016 Influenza Vac, Quadrivalent, Slit Virus, Im [id number] Given 05/08/2015 Pneumococcal Immunization [id number] 08909 Given 05/08/2015 Influenza Vac, Quadrivalent, Slit Virus, Im [id number] Vital Signs Date Vital Result Comment 05/20/2018 BP Systolic 134 mmHg BP Diastolic 82 mmHg Heart Rate 60 /min Body Temperature 97.9 F Respiratory Rate 16 /min Height 61 inches 5'1" 05/15/2018 BP Systolic 132 mmHg BP Diastolic 7497 mmHg Heart Rate 60 /min Body Temperature 97.5 F Respiratory Rate 18 /min O2 % BldC Oximetry 91 % Height 61 inches 5'1" 04/20/2018 BP Systolic 130 mmHg BP Diastolic 56 mmHg Heart Rate 56 /min Body Temperature 97.7 F Respiratory Rate 18 /min O2 % BldC Oximetry 93 % 2 liters O2 Height 61 inches 5'1" 03/16/2018 BP Systolic 118 mmHg BP Diastolic 66 mmHg Heart Rate 68 /min Body Temperature 98.1 F Respiratory Rate 17 /min Height 61 inches 5'1" Weight 244.00 lb BMI (Body Mass Index) 46.1 kg/m2 02/05/2018 BP Systolic 120 mmHg BP Diastolic 60 mmHg Heart Rate 66 /min Body Temperature 97.9 F Height 61 inches 5'1" 01/16/2018 BP Systolic 130 mmHg BP Diastolic 80 mmHg Heart Rate 60 /min Body Temperature 96.7 F Respiratory Rate 16 /min Height 61 inches 5'1" 09/24/2017 BP Systolic 146 mmHg BP Diastolic 72 mmHg Heart Rate 72 /min Body Temperature 97.9 F Respiratory Rate 18 /min Height 61 inches 5'1" Weight 263.00 lb BMI (Body Mass Index) 49.7 kg/m2 08/29/2017 BP Systolic 128 mmHg BP Diastolic 70 mmHg Heart Rate 80 /min Body Temperature 97.9 F Respiratory Rate 18 /min 06/10/2017 Heart Rate 66 /min Body Temperature 98.8 F Respiratory Rate 16 /min Weight 263.00 lb 05/07/2017 BP Systolic 138 mmHg BP Diastolic 52 mmHg Heart Rate 66 /min Body Temperature 97.7 F Weight 274.12 lb 04/10/2017 BP Systolic 136 mmHg BP Diastolic 80 mmHg Heart Rate 76 /min Body Temperature 97.6 F Respiratory Rate 16 /min 02/28/2017 BP Systolic 134 mmHg BP Diastolic 80 mmHg Heart Rate 68 /min Body Temperature 98.1 F Respiratory Rate 18 /min 12/24/2016 BP Systolic 134 mmHg BP Diastolic 76 mmHg Heart Rate 76 /min Body Temperature 97.9 F Respiratory Rate 18 /min 11/28/2016 BP Systolic 142 mmHg BP Diastolic 80 mmHg Heart Rate 79 /min Body Temperature 98.6 F Respiratory Rate 16 /min O2 % BldC Oximetry 9532 % 11/08/2016 BP Systolic 132 mmHg BP Diastolic 80 mmHg Heart Rate 68 /min Body Temperature 98.1 F Respiratory Rate 16 /min 10/22/2016 BP Systolic 120 mmHg BP Diastolic 70 mmHg Heart Rate 68 /min Body Temperature 98.0 F Respiratory Rate 18 /min O2 % BldC Oximetry 983 % 3L 10/08/2016 BP Systolic 142 mmHg BP Diastolic 80 mmHg Heart Rate 100 /min Body Temperature 98.8 F Respiratory Rate 16 /min 09/16/2016 BP Systolic 126 mmHg BP Diastolic 70 mmHg Heart Rate 96 /min Body Temperature 97.9 F Height 61 inches 5'1" 08/14/2016 BP Systolic 160 mmHg BP Diastolic 90 mmHg Heart Rate 104 /min Body Temperature 97.3 F Height 61 inches 5'1" 06/07/2016 BP Systolic 138 mmHg BP Diastolic 88 mmHg Heart Rate 79 /min Body Temperature 97.9 F Respiratory Rate 20 /min O2 % BldC Oximetry 9093 % Height 61 inches 5'1" 04/26/2016 BP Systolic 124 mmHg BP Diastolic 80 mmHg Heart Rate 68 /min Body Temperature 98.2 F Respiratory Rate 20 /min O2 % BldC Oximetry 94 % Height 61 inches 5'1" Weight 261.00 lb BMI (Body Mass Index) 49.3 kg/m2 04/10/2016 BP Systolic 126 mmHg BP Diastolic 80 mmHg Heart Rate 72 /min Body Temperature 99.1 F Height 61 inches 5'1" 03/27/2016 BP Systolic 120 mmHg BP Diastolic 86 mmHg Heart Rate 68 /min Body Temperature 97.9 F Respiratory Rate 20 /min O2 % BldC Oximetry 97 % Height 61 inches 5'1" 02/07/2016 BP Systolic 120 mmHg BP Diastolic 80 mmHg Heart Rate 66 /min Body Temperature 97.3 F Respiratory Rate 16 /min O2 % BldC Oximetry 95 % Height 61 inches 5'1" 01/03/2016 BP Systolic 130 mmHg BP Diastolic 80 mmHg Heart Rate 80 /min Body Temperature 98.0 F Respiratory Rate 16 /min Height 61 inches 5'1" 09/06/2015 BP Systolic 136 mmHg BP Diastolic 80 mmHg Heart Rate 80 /min Body Temperature 97.9 F Respiratory Rate 18 /min Height 61 inches 5'1" 08/11/2015 BP Systolic 140 mmHg BP Diastolic 80 mmHg Heart Rate 80 /min Body Temperature 97.6 F Respiratory Rate 20 /min Height 61 inches 5'1" Weight 248.00 lb BMI (Body Mass Index) 46.9 kg/m2 06/30/2015 BP Systolic 140 mmHg BP Diastolic 80 mmHg Heart Rate 68 /min Body Temperature 98.1 F Respiratory Rate 18 /min O2 % BldC Oximetry 96 % SOB Height 61 inches 5'1" Weight 230.00 lb BMI (Body Mass Index) 43.5 kg/m2 05/08/2015 BP Systolic 140 mmHg BP Diastolic 70 mmHg Heart Rate 84 /min Body Temperature 98.2 F Respiratory Rate 16 /min Height 61 inches 5'1" 02/27/2015 BP Systolic 150 mmHg BP Diastolic 70 mmHg Heart Rate 84 /min Respiratory Rate 18 /min Height 61 inches 5'1" 01/09/2015 BP Systolic 136 mmHg BP Diastolic 80 mmHg Heart Rate 84 /min Body Temperature 98.2 F Respiratory Rate 16 /min Height 61 inches 5'1" Weight 249.00 lb BMI (Body Mass Index) 47.0 kg/m2 11/29/2014 BP Systolic 160 mmHg BP Diastolic 70 mmHg Heart Rate 84 /min Body Temperature 98.7 F Respiratory Rate 18 /min Height 61 inches 5'1" 10/10/2014 BP Systolic 164 mmHg BP Diastolic 88 mmHg Heart Rate 88 /min Body Temperature 97.6 F Respiratory Rate 20 /min O2 % BldC Oximetry 98 % 10/04/2014 BP Systolic 154 mmHg BP Diastolic 88 mmHg Heart Rate 88 /min Body Temperature 97.2 F Respiratory Rate 24 /min O2 % BldC Oximetry 97 % 09/05/2014 BP Systolic 150 mmHg BP Diastolic 84 mmHg Heart Rate 90 /min Body Temperature 97.1 F Respiratory Rate 18 /min 08/08/2014 BP Systolic 128 mmHg BP Diastolic 76 mmHg Heart Rate 76 /min Body Temperature 97.8 F Respiratory Rate 17 /min 07/04/2014 BP Systolic 120 mmHg BP Diastolic 64 mmHg Heart Rate 72 /min Body Temperature 97.6 F Respiratory Rate 18 /min Weight 253.00 lb 06/13/2014 BP Systolic 140 mmHg BP Diastolic 88 mmHg Heart Rate 74 /min Body Temperature 97.9 F Respiratory Rate 18 /min 06/06/2014 BP Systolic 144 mmHg BP Diastolic 76 mmHg Heart Rate 80 /min Body Temperature 98.2 F Respiratory Rate 18 /min Height 61 inches 5'1" 05/02/2014 BP Systolic 162 mmHg left lower arm BP Diastolic 80 mmHg left lower arm Heart Rate 84 /min Body Temperature 96.9 F Respiratory Rate 16 /min Height 61 inches 5'1" 02/14/2014 BP Systolic 130 mmHg BP Diastolic 72 mmHg Heart Rate 84 /min Body Temperature 96.9 F Respiratory Rate 20 /min Height 61 inches 5'1" Weight 257.00 lb BMI (Body Mass Index) 48.6 kg/m2 01/06/2014 BP Systolic 120 mmHg BP Diastolic 70 mmHg Heart Rate 84 /min Body Temperature 97.6 F Respiratory Rate 20 /min Height 61 inches 5'1" 2013 BP Systolic 112 mmHg BP Diastolic 62 mmHg BP Systolic Recheck 128 mmHg BP Diastolic Recheck 72 mmHg Heart Rate 84 /min Body Temperature 98.1 F Respiratory Rate 18 /min Height 61 inches 5'1" Weight 244.31 lb BMI (Body Mass Index) 46.2 kg/m2 Results Test Date Test Result H/L Range Note Laboratory test finding 05/15/2018 TSH 3.30 mIU/L 0.50-6.00 Ferritin 336 ng/mL High 15-200 1 Iron And Tibc 05/15/2018 Iron Bind.Cap.(Tibc) 213 g/dL Low 250-450 2 Uibc 140 g/dL 118-369 2 Iron 73 g/dL 27-139 2 Iron Saturation 34 % 15-55 2 Urinalysis Profile 04/12/2018 Urine Color Straw Urine Appearance Clear Urine Specific [place] 1.010 1.010-1.030 Urine pH 5 5-9 Urine Urobilinogen Negative Negative Urine Ketones Negative Negative Urine Protein 1+(30 mg/dL) Negative Urine Leukocytes Negative Negative Urine Blood Negative Negative Urine Nitrite Negative Negative Urine Bilirubin Negative Negative Urine Glucose Negative Negative Laboratory test finding 04/12/2018 Procalcitonin 77.5 ng/mL High <0.6 3 C Reactive Protein 269.22 mg/L High <8.01 Manual Differential 04/12/2018 Immature Granulocytes 26 % High 0-9 Neutrophil % 66 % 38-83 Band % 26 % High 0-8 Lymphocytes % 7 % Low 25-47 Monocytes % 1 % 0-7 Eosinophils % 0 % 0-6 Basophil % 0 % 0-2 Abs Neutrophils 13.2 10^3/uL High 1.5-7.7 Abs Lymphocytes 1.4 10^3/uL 1.0-4.8 Abs Monocytes 0.2 10^3/uL 0-0.8 Abs Eosinophils 0 10^3/uL 0-0.6 Abs Basophils 0 10^3/uL 0-0.2 Anisocytosis 1+ CBC Auto Diff 04/12/2018 White Blood Count 20.0 10^3/uL High 3.5-10.8 Red Blood Count 3.07 10^6/uL Low 4.00-5.40 Hemoglobin 9.9 g/dL Low 12.0-16.0 Hematocrit 30 % Low 35-47 Mean Corpuscular Volume 97 fL 80-97 Mean Corpuscular Hemoglobin 32 pg High 27-31 Mean Corpuscular HGB Conc 33 g/dL 31-36 Red Cell Distribution Width 16 % High 10.5-15 Platelet Count 171 10^3/uL 150-450 Mean Platelet Volume 7.6 um3 7.4-10.4 Abs Neutrophils 15.8 10^3/uL High 1.5-7.7 Laboratory test finding 04/12/2018 Magnesium 2.3 mg/dL 1.9-2.7 Troponin I 0.03 ng/mL <0.04 Lactic Acid 1.8 mmol/L 0.5-2.0 4 Comp Metabolic Panel 04/12/2018 Sodium 134 mmol/L Low 135-145 Potassium 4.3 mmol/L 3.5-5.0 Chloride 105 mmol/L 101-111 Co2 Carbon Dioxide 22 mmol/L 22-32 Anion Gap 7 mmol/L 2-11 Glucose 133 mg/dL High 70-100 Blood Urea Nitrogen 42 mg/dL High 6-24 Creatinine 1.87 mg/dL High 0.51-0.95 BUN/Creatinine Ratio 22.5 High 8-20 Calcium 9.2 mg/dL 8.6-10.3 Total Protein 7.2 g/dL 6.4-8.9 Albumin 3.9 g/dL 3.2-5.2 Globulin 3.3 g/dL 2-4 Albumin/Globulin Ratio 1.2 1-3 Total Bilirubin 0.40 mg/dL 0.2-1.0 Alkaline Phosphatase 87 U/L 34-104 Alt 14 U/L 7-52 Ast 35 U/L 13-39 Egfr Non- 26.0 >60 Egfr 31.5 >60 5 Laboratory test finding 04/12/2018 Partial Thrombo Time 30.3 seconds 26.0 -36.3 PTT B-Type Natriuretic Peptide BNP 579 pg/mL High 6 Inr/Protime 04/12/2018 Inr 1.11 High 0.77-1.02 CBC Auto Diff 04/06/2018 White Blood Count 5.9 10^3/uL 3.5-10.8 Red Blood Count 3.04 10^6/uL Low 4.00-5.40 Hemoglobin 10.0 g/dL Low 12.0-16.0 Hematocrit 29 % Low 35-47 Mean Corpuscular Volume 95 fL 80-97 Mean Corpuscular Hemoglobin 33 pg High 27-31 Mean Corpuscular HGB Conc 35 g/dL 31-36 Red Cell Distribution Width 16 % High 10.5-15 Platelet Count 178 10^3/uL 150-450 Mean Platelet Volume 7.5 um3 7.4-10.4 Abs Neutrophils 3.8 10^3/uL 1.5-7.7 Abs Lymphocytes 1.5 10^3/uL 1.0-4.8 Abs Monocytes 0.4 10^3/uL 0-0.8 Abs Eosinophils 0.2 10^3/uL 0-0.6 Abs Basophils 0.1 10^3/uL 0-0.2 Abs Nucleated RBC 0 10^3/uL Granulocyte % 63.9 % 38-83 Lymphocyte % 26.0 % 25-47 Monocyte % 6.2 % 0-7 Eosinophil % 3.0 % 0-6 Basophil % 0.9 % 0-2 Nucleated Red Blood Cells % 0.1 CBC Electronic a 03/16/2018 WBC 6.1 x10^3/UL 4.0-10.0 RBC 3.25 x10^6/UL Low 3.93-6.00 HGB 10.4 g/dL Low 12.0-17.0 7 HCT 31 % Low 35-50 8 MCV 95.1 fL High 80.0-95.0 MCH 32.0 pg 25.6-32.2 MCHC 33.7 g/dL 32.2-36.0 RDW-CV 15.6 % High 11.6-14.4 PLT 168 x10^3/UL 163-400 MPV 8.9 fL Low 9.4-12.4 [place]# 3.91 x10^3/UL 1.56-6.13 Lymph# 1.56 x10^3/UL 1.18-3.74 [place]# 0.43 x10^3/UL 0.24-0.82 Eos # 0.1 x10^3/UL 0.0-0.5 Baso # 0.03 x10^3/UL 0.01-0.08 [place]% 64.2 % 34.0-70.0 Lymph % 25.7 % 20.0-52.0 [place]% 7.1 % 5.0-12.0 Eos% 2.3 % 0.7-7.0 Baso% 0.5 % 0.1-1.2 Basic Metabolic Profile 03/16/2018 Sodium 134 mEq/L 134-149 Potassium 5.1 mEq/L 3.6-5.5 Chloride 101 mEq/L 94-112 Carbon Dioxide 26 mEq/L 21-32 Glucose 135 mg/dL High 70-105 BUN 40 mg/dL High 6-26 Creatinine 1.6 mg/dL High 0.6-1.4 BUN/Creat Ratio 25.0 CALC 8.0-36.0 Calcium 9.5 mg/dL 8.6-10.2 GFR Non- 33 ml/min/1.73m^ Low >=60 GFR 40 ml/min/1.73m^ Low >=60 CBC Auto Diff 02/13/2018 White Blood Count 6.4 10^3/uL 3.5-10.8 Red Blood Count 3.67 10^6/uL Low 4.00-5.40 Hemoglobin 11.1 g/dL Low 12.0-16.0 Hematocrit 34 % Low 35-47 Mean Corpuscular Volume 91 fL 80-97 Mean Corpuscular Hemoglobin 30 pg 27-31 Mean Corpuscular HGB Conc 33 g/dL 31-36 Red Cell Distribution Width 18 % High 10.5-15 Platelet Count 240 10^3/uL 150-450 Mean Platelet Volume 7.6 um3 7.4-10.4 Abs Neutrophils 4.4 10^3/uL 1.5-7.7 Abs Lymphocytes 1.2 10^3/uL 1.0-4.8 Abs Monocytes 0.6 10^3/uL 0-0.8 Abs Eosinophils 0.2 10^3/uL 0-0.6 Abs Basophils 0 10^3/uL 0-0.2 Abs Nucleated RBC 0 10^3/uL Granulocyte % 69.3 % 38-83 Lymphocyte % 17.9 % Low 25-47 Monocyte % 8.7 % High 0-7 Eosinophil % 3.4 % 0-6 Basophil % 0.7 % 0-2 Nucleated Red Blood Cells % 0 Basic Metabolic Panel 02/13/2018 Sodium 139 mmol/L 135-145 Chloride 104 mmol/L 101-111 Co2 Carbon Dioxide 25 mmol/L 22-32 Glucose 112 mg/dL High 70-100 Blood Urea Nitrogen 40 mg/dL High 6-24 Creatinine 1.63 mg/dL High 0.51-0.95 BUN/Creatinine Ratio 24.5 High 8-20 Calcium 9.4 mg/dL 8.6-10.3 Egfr Non- 30.5 >60 Egfr 36.9 >60 9 Potassium 5.2 mmol/L High 3.5-5.0 Anion Gap 10 mmol/L 2-11 CBC No Diff 02/05/2018 White Blood Count [...] 150-450 Mean Platelet Volume 7.4 um3 7.4-10.4 Laboratory test finding 01/31/2018 Antibody Identification D Direct Antiglobulin Test NEGATIVE Packed Cells SEE RESULTS BELO <SEE NOTE> 10 Antibody Id Autocontrol 0 Type & Screen 01/31/2018 Patient Blood Type B Negative Antibody Screen POSITIVE Laboratory test finding 01/31/2018 Troponin I 0.02 ng/mL <0.04 Comp Metabolic Panel 01/31/2018 Sodium 137 mmol/L 135-145 Potassium 4.8 mmol/L 3.5-5.0 Chloride 107 mmol/L 101-111 Co2 Carbon Dioxide 25 mmol/L 22-32 Anion Gap 5 mmol/L 2-11 Glucose 157 mg/dL High 70-100 Blood Urea Nitrogen 28 mg/dL High 6-24 Creatinine 1.19 mg/dL High 0.51-0.95 BUN/Creatinine Ratio 23.5 High 8-20 Calcium 8.6 mg/dL 8.6-10.3 Total Protein 5.9 g/dL Low 6.4-8.9 Albumin 3.2 g/dL 3.2-5.2 Globulin 2.7 g/dL 2-4 Albumin/Globulin Ratio 1.2 1-3 Total Bilirubin 0.50 mg/dL 0.2-1.0 Alkaline Phosphatase 71 U/L 34-104 Alt 12 U/L 7-52 Ast 16 U/L 13-39 Egfr Non- 43.9 >60 Egfr 53.1 >60 11 Laboratory test finding 01/31/2018 Lactic Acid 0.9 mmol/L 0.5-2.0 12 CBC Auto Diff 01/31/2018 White Blood Count 7.1 10^3/uL 3.5-10.8 Red Blood Count 2.38 10^6/uL Low 4.00-5.40 Hemoglobin 7.6 g/dL Low 12.0-16.0 Hematocrit 22 % Low 35-47 Mean Corpuscular Volume 93 fL 80-97 Mean Corpuscular Hemoglobin 32 pg High 27-31 Mean Corpuscular HGB Conc 34 g/dL 31-36 Red Cell Distribution Width 16 % High 10.5-15 Platelet Count 189 10^3/uL 150-450 Mean Platelet Volume 7.1 um3 Low 7.4-10.4 Abs Neutrophils 5.1 10^3/uL 1.5-7.7 Abs Lymphocytes 1.1 10^3/uL 1.0-4.8 Abs Monocytes 0.7 10^3/uL 0-0.8 Abs Eosinophils 0.2 10^3/uL 0-0.6 Abs Basophils 0.1 10^3/uL 0-0.2 Abs Nucleated RBC 0 10^3/uL Granulocyte % 71.6 % 38-83 Lymphocyte % 15.9 % Low 25-47 Monocyte % 9.4 % High 0-7 Eosinophil % 2.2 % 0-6 Basophil % 0.9 % 0-2 Nucleated Red Blood Cells % 0 Laboratory test finding 01/31/2018 Troponin I 0.03 ng/mL <0.04 Comp Metabolic Panel 01/21/2018 Sodium 137 mmol/L 135-145 Potassium 4.5 mmol/L 3.5-5.0 Chloride 102 mmol/L 101-111 Co2 Carbon Dioxide 28 mmol/L 22-32 Anion Gap 7 mmol/L 2-11 Glucose 152 mg/dL High 70-100 Blood Urea Nitrogen 32 mg/dL High 6-24 Creatinine 1.41 mg/dL High 0.51-0.95 BUN/Creatinine Ratio 22.7 High 8-20 Calcium 9.2 mg/dL 8.6-10.3 Total Protein 7.5 g/dL 6.4-8.9 Albumin 4.2 g/dL 3.2-5.2 Globulin 3.3 g/dL 2-4 Albumin/Globulin Ratio 1.3 1-3 Total Bilirubin 0.30 mg/dL 0.2-1.0 Alkaline Phosphatase 90 U/L 34-104 Alt 12 U/L 7-52 Ast 17 U/L 13-39 Egfr Non- 36.1 >60 Egfr 43.6 >60 13 Laboratory test finding 01/21/2018 Magnesium 2.1 mg/dL 1.9-2.7 Troponin I 0.01 ng/mL <0.04 Inr/Protime 01/21/2018 Inr 0.92 0.77-1.02 Laboratory test finding 01/21/2018 Partial Thrombo Time 27.6 seconds 26.0 -36.3 PTT CBC Auto Diff 01/21/2018 White Blood Count 6.4 10^3/uL 3.5-10.8 Red Blood Count 3.07 10^6/uL Low 4.00-5.40 Hemoglobin 10.1 g/dL Low 12.0-16.0 Hematocrit 29 % Low 35-47 Mean Corpuscular Volume 96 fL 80-97 Mean Corpuscular Hemoglobin 33 pg High 27-31 Mean Corpuscular HGB Conc 34 g/dL 31-36 Red Cell Distribution Width 13 % 10.5-15 Platelet Count 223 10^3/uL 150-450 Mean Platelet Volume 7.3 um3 Low 7.4-10.4 Abs Neutrophils 4.5 10^3/uL 1.5-7.7 Abs Lymphocytes 1.3 10^3/uL 1.0-4.8 Abs Monocytes 0.6 10^3/uL 0-0.8 Abs Eosinophils 0 10^3/uL 0-0.6 Abs Basophils 0 10^3/uL 0-0.2 Abs Nucleated RBC 0 10^3/uL Granulocyte % 70.0 % 38-83 Lymphocyte % 20.4 % Low 25-47 Monocyte % 9.0 % High 0-7 Eosinophil % 0.2 % 0-6 Basophil % 0.4 % 0-2 Nucleated Red Blood Cells % 0.1 Inr/Protime 01/20/2018 Inr 0.93 0.77-1.02 Laboratory test finding 01/20/2018 Partial Thrombo Time 26.2 seconds 26.0 -36.3 PTT TSH (Thyroid Stim Horm) 8.23 mcIU/mL High 0.34-5.60 Free T4 (Free Thyroxine) 1.17 ng/dL High 0.61-1.12 Comp Metabolic Panel 01/20/2018 Sodium 138 mmol/L [...] Egfr Non- 32.6 >60 Egfr 39.4 >60 14 Potassium 5.2 mmol/L High 3.5-5.0 Anion Gap 9 mmol/L 2-11 Laboratory test finding 01/20/2018 Ferritin 151.0 ng/mL 11-307 CBC Auto Diff 01/20/2018 White Blood Count [...] 0-2 Nucleated Red Blood Cells % 0 CBC Auto Diff 12/03/2017 White Blood Count 5.0 10^3/uL 3.5-10.8 Red Blood Count 3.02 10^6/uL Low 4.0-5.4 Hemoglobin 9.6 g/dL Low 12.0-16.0 Hematocrit 29 % Low 35-47 Mean Corpuscular Volume 97 fL 80-97 Mean Corpuscular Hemoglobin 32 pg High 27-31 Mean Corpuscular HGB Conc 33 g/dL 31-36 Red Cell Distribution Width 14 % 10.5-15 Platelet Count 175 10^3/uL 150-450 Mean Platelet Volume 7.5 um3 7.4-10.4 Abs Neutrophils 2.4 10^3/uL 1.5-7.7 Abs Lymphocytes 1.9 10^3/uL 1.0-4.8 Abs Monocytes 0.4 10^3/uL 0-0.8 Abs Eosinophils 0.2 10^3/uL 0-0.6 Abs Basophils 0 10^3/uL 0-0.2 Abs Nucleated RBC 0 10^3/uL Granulocyte % 48.4 % 38-83 Lymphocyte % 38.2 % 25-47 Monocyte % 8.2 % High 0-7 Eosinophil % 4.5 % 0-6 Basophil % 0.7 % 0-2 Nucleated Red Blood Cells % 0.1 Laboratory test finding 09/22/2017 Urine Culture And SEE RESULT BELOW 15 Sensitivities Ua - Micro (Fma) 09/22/2017 Appearance CLEAR Color YELLOW Glucose, Urine (Fma/CMC/CTX) NEG Bilirubin NEG Ketones NEG SP Grav 1.015 Blood TRACE-INTACT PH 7.0 Protein 2+ Urobil 0.2 Nitrite NEG Leukocytes (Fma/CMC/Centrex) TRACE Hyaline - /Lpf Granular - /Lpf WBC (Fma,Centrex) 8-10 RBC 1-2 Mucus - /Lpf Epith OCC /Lpf Bacteria TRACE /Hpf Amorphous - /Lpf Crystals, Fluid (Fma/CMC/CTX) - CBC Auto Diff 01/27/2017 White Blood Count 6.2 10^3/uL 3.5-10.8 Red Blood Count 3.31 10^6/uL Low 4.0-5.4 Hemoglobin 10.5 g/dL Low 12.0-16.0 Hematocrit 32 % Low 35-47 Mean Corpuscular Volume 97 fL 80-97 Mean Corpuscular Hemoglobin 32 pg High 27-31 Mean Corpuscular HGB Conc 33 g/dL 31-36 Red Cell Distribution Width 14 % 10.5-15 Platelet Count 183 10^3/uL 150-450 Mean Platelet Volume 8 um3 7.4-10.4 Abs Neutrophils 4.4 10^3/uL 1.5-7.7 Abs Lymphocytes 1.3 10^3/uL 1.0-4.8 Abs Monocytes 0.3 10^3/uL 0-0.8 Abs Eosinophils 0.2 10^3/uL 0-0.6 Abs Basophils 0 10^3/uL 0-0.2 Abs Nucleated RBC 0 10^3/uL Granulocyte % 70.8 % 38-83 Lymphocyte % 20.3 % Low 25-47 Monocyte % 4.6 % 1-9 Eosinophil % 3.7 % 0-6 Basophil % 0.6 % 0-2 Nucleated Red Blood Cells % 0 Retic Count 01/27/2017 Maturation Factor Retic 1.5 RBC Retic Count 3.31 10^6/uL Low 4.6-6.2 Hematocrit for Retic CNT 32 % Low 35-47 Retic Count 1.3 % 0.5-1.5 Corrected Retic Count 0.9 % 0.5-1.5 Retic Index 0.60 Mean Retic Volume 113.2 Immature Retic Fraction 0.43 Iron & Iron Binding Capacity 01/27/2017 Iron 55 g/dL 50-212 Unsaturated Iron Binding 201 g/dL Total Iron Binding Capacity 256 g/dL 250-450 % Iron Saturation 21 % 15-55 Laboratory test finding 01/27/2017 Ferritin 225.4 ng/mL 11-307 Vitamin B12 550 pg/mL 180-914 16 Erythropoietin 9.3 mIU/mL 2.6 - 18.5 17 CBC Auto Diff 10/08/2016 White Blood Count 6.9 10^3/uL 3.5-10.8 Red Blood Count 3.39 10^6/uL Low 4.0-5.4 Hemoglobin 10.4 g/dL Low 12.0-16.0 Hematocrit 31 % Low 35-47 Mean Corpuscular Volume 93 fL 80-97 Mean Corpuscular Hemoglobin 31 pg 27-31 Mean Corpuscular HGB Conc 33 g/dL 31-36 Red Cell Distribution Width 15 % 10.5-15 Platelet Count 179 10^3/uL 150-450 Mean Platelet Volume 8 um3 7.4-10.4 Abs Neutrophils 4.4 10^3/uL 1.5-7.7 Abs Lymphocytes 1.4 10^3/uL 1.0-4.8 Abs Monocytes 0.9 10^3/uL High 0-0.8 Abs Eosinophils 0.2 10^3/uL 0-0.6 Abs Basophils 0 10^3/uL 0-0.2 Abs Nucleated RBC 0 10^3/uL Granulocyte % 63.4 % 38-83 Lymphocyte % 20.3 % Low 25-47 Monocyte % 12.6 % High 1-9 Eosinophil % 3.0 % 0-6 Basophil % 0.7 % 0-2 Nucleated Red Blood Cells % 0 Laboratory test 10/08/2016 B-Type Natriuretic 610 pg/mL High 18 finding Peptide BNP Inr/Protime 10/08/2016 Inr 1.00 0.89-1.11 Laboratory test 10/08/2016 Partial Thrombo Time 21.3 seconds Low 26.0- 36.3 finding PTT D Dimer Quantitative 649 ng/mL High Less Than 230 19 Lactic Acid 1.2 mmol/L 0.5-2.0 20 Comp Metabolic Panel 10/08/2016 Sodium 134 mmol/L 133-145 Chloride 106 mmol/L 101-111 Co2 Carbon Dioxide 22 mmol/L 22-32 Glucose 130 mg/dL High 70-100 Blood Urea Nitrogen 18 mg/dL 6-24 Creatinine 1.23 mg/dL High 0.51-0.95 BUN/Creatinine Ratio 14.6 8-20 Calcium 8.7 mg/dL 8.6-10.3 Total Protein 6.6 g/dL 6.4-8.9 Albumin 3.5 g/dL 3.2-5.2 Globulin 3.1 g/dL 2-4 Albumin/Globulin Ratio 1.1 1-3 Total Bilirubin 0.40 mg/dL 0.2-1.0 Alkaline Phosphatase 82 U/L 34-104 Alt 35 U/L 7-52 Egfr Non- 42.5 >60 Egfr 54.6 >60 21 Potassium 4.9 mmol/L 3.5-5.0 Anion Gap 6 mmol/L 2-11 Ast 47 U/L High 13-39 Laboratory test finding 10/08/2016 Magnesium 1.5 mg/dL Low 1.9-2.7 Lipase 21 U/L 11.0-82.0 Creatine Kinase(CK) 473 U/L High 10-223 C Reactive Protein 38.59 mg/L High < 5.00 22 Troponin I 0.03 ng/mL <0.04 23 CKMB 10/08/2016 CKMB ng/mL 7.4 ng/mL High 0.6-6.3 Laboratory test finding 10/08/2016 TSH (Thyroid Stim 4.14 mcIU/mL 0.34- 5.60 Horm) Laboratory test finding 10/06/2016 Inr/Protime 1.06 0.89-1.11 Partial Thrombo Time PTT 30.7 seconds 26.0-36.3 CBC Auto Diff 10/06/2016 White Blood Count 8.1 10^3/uL 3.5-10.8 Red Blood Count 3.57 10^6/uL Low 4.0-5.4 Hemoglobin 11.0 g/dL Low 12.0-16.0 Hematocrit 33 % Low 35-47 Mean Corpuscular Volume 91 fL 80-97 Mean Corpuscular Hemoglobin 31 pg 27-31 Mean Corpuscular HGB Conc 34 g/dL 31-36 Red Cell Distribution Width 15 % 10.5-15 Platelet Count 186 10^3/uL 150-450 Mean Platelet Volume 8 um3 7.4-10.4 Abs Neutrophils 6.7 10^3/uL 1.5-7.7 Abs Lymphocytes 0.6 10^3/uL Low 1.0-4.8 Abs Monocytes 0.5 10^3/uL 0-0.8 Abs Eosinophils 0.2 10^3/uL 0-0.6 Abs Basophils 0 10^3/uL 0-0.2 Abs Nucleated RBC 0 10^3/uL Granulocyte % 82.4 % 38-83 Lymphocyte % 7.6 % Low 25-47 Monocyte % 6.7 % 1-9 Eosinophil % 2.7 % 0-6 Basophil % 0.6 % 0-2 Nucleated Red Blood Cells % 0 Laboratory test finding 10/06/2016 Lactic Acid 0.6 mmol/L 0.5-2.0 24 B-Type Natriuretic Peptide BNP 749 pg/mL High 25 Comp Metabolic Panel 10/06/2016 Sodium 135 mmol/L 133-145 Potassium 4.6 mmol/L 3.5-5.0 Chloride 103 mmol/L 101-111 Co2 Carbon Dioxide 22 mmol/L 22-32 Anion Gap 10 mmol/L 2-11 Glucose 143 mg/dL High 70-100 Blood Urea Nitrogen 19 mg/dL 6-24 Creatinine 1.18 mg/dL High 0.51-0.95 BUN/Creatinine Ratio 16.1 8-20 Calcium 9.2 mg/dL 8.6-10.3 Total Protein 7.1 g/dL 6.4-8.9 Albumin 3.7 g/dL 3.2-5.2 Globulin 3.4 g/dL 2-4 Albumin/Globulin Ratio 1.1 1-3 Total Bilirubin 0.30 mg/dL 0.2-1.0 Alkaline Phosphatase 100 U/L 34-104 Alt 27 U/L 7-52 Ast 38 U/L 13-39 Egfr Non- 44.5 >60 Egfr 57.3 >60 26 Laboratory test finding 10/06/2016 Magnesium 1.7 mg/dL Low 1.9-2.7 Lipase 20 U/L 11.0-82.0 Creatine Kinase(CK) 74 U/L 10-223 C Reactive Protein 83.49 mg/L High < 5.00 27 Troponin I 0.02 ng/mL <0.04 28 CKMB 10/06/2016 CKMB ng/mL 2.4 ng/mL 0.6-6.3 Laboratory test finding 10/06/2016 TSH (Thyroid Stim Horm) 2.62 mcIU/mL 0.34-5.60 Urinalysis Profile 10/06/2016 Urine Color Yellow Urine Appearance Clear Urine Specific [place] 1.015 1.010-1.030 Urine pH 6.0 5-9 Urine Urobilinogen Negative Negative Urine Ketones Negative Negative Urine Protein 2+(100 mg/dL) Negative Urine Leukocytes Negative Negative Urine Blood Negative Negative Urine Nitrite Negative Negative Urine Bilirubin Negative Negative Urine Glucose Negative Negative Urine White Blood Cell Trace(0-5/hpf) Absent Urine Red Blood Cell 2+(6-10/hpf) Absent Urine Bacteria Absent Absent Urine Squamous Epithelial Cell Present Absent CBC Auto Diff 09/24/2016 White Blood Count 8.4 10^3/uL 3.5-10.8 Red Blood Count 3.29 10^6/uL Low 4.0-5.4 Hemoglobin 10.4 g/dL Low 12.0-16.0 Hematocrit 31 % Low 35-47 Mean Corpuscular Volume 95 fL 80-97 Mean Corpuscular Hemoglobin 32 pg High 27-31 Mean Corpuscular HGB Conc 33 g/dL 31-36 Red Cell Distribution Width 12 % 10.5-15 Platelet Count 199 10^3/uL 150-450 Mean Platelet Volume 8 um3 7.4-10.4 Abs Neutrophils 5.8 10^3/uL 1.5-7.7 Abs Lymphocytes 2.0 10^3/uL 1.0-4.8 Abs Monocytes 0.4 10^3/uL 0-0.8 Abs Eosinophils 0.2 10^3/uL 0-0.6 Abs Basophils 0.1 10^3/uL 0-0.2 Abs Nucleated RBC 0 10^3/uL Granulocyte % 69.3 % 38-83 Lymphocyte % 23.2 % Low 25-47 Monocyte % 4.7 % 1-9 Eosinophil % 2.2 % 0-6 Basophil % 0.6 % 0-2 Nucleated Red Blood Cells % 0 Inr/Protime 09/24/2016 Inr 0.95 0.89-1.11 Laboratory test finding 09/24/2016 Lactic Acid 2.2 mmol/L High 0.5-2.0 29 Comp Metabolic Panel 09/24/2016 Sodium 136 mmol/L 133-145 Chloride 101 mmol/L 101-111 Co2 Carbon Dioxide 27 mmol/L 22-32 Glucose 192 mg/dL High 70-100 Blood Urea Nitrogen 31 mg/dL High 6-24 Creatinine 1.12 mg/dL High 0.51-0.95 BUN/Creatinine Ratio 27.7 High 8-20 Calcium 9.6 mg/dL 8.6-10.3 Total Protein 7.3 g/dL 6.4-8.9 Albumin 3.8 g/dL 3.2-5.2 Globulin 3.5 g/dL 2-4 Albumin/Globulin Ratio 1.1 1-3 Total Bilirubin 0.30 mg/dL 0.2-1.0 Alkaline Phosphatase 91 U/L 34-104 Alt 13 U/L 7-52 Egfr Non- 47.3 >60 Egfr 60.8 >60 30 Potassium TNP mmol/L 3.5-5.0 Anion Gap TNP mmol/L 2-11 Ast TNP U/L 13-39 Laboratory test finding 09/24/2016 Troponin I 0.05 ng/mL High <0.04 31 Magnesium TNP mg/dL 1.9-2.7 TSH (Thyroid Stim Horm) 0.54 mcIU/mL 0.34-5.60 D Dimer Quantitative 257 ng/mL High Less Than 230 32 Toxassure(R) Select 13 (MW) 08/14/2016 Report Summary FINAL 33 PDF . Laboratory test finding 08/14/2016 PDF [id number] SEE IMAGE Ua - Non Micro (Fma) 08/14/2016 Appearance clear Color yellow Glucose, Urine (Fma/CMC/CTX) - Bilirubin - Ketones - SP Grav 1.010 Blood trace (intact) PH 5.5 Protein 1+ (ssa) Urobil 0.2 Nitrite - Leukocytes (Fma/CMC/Centrex) trace QNS micro and CS Basic Metabolic Panel 06/11/2016 Sodium 136 mmol/L 133-145 Potassium 5.2 mmol/L High 3.5-5.0 Chloride 106 mmol/L 101-111 Co2 Carbon Dioxide 23 mmol/L 22-32 Anion Gap 7 mmol/L 2-11 Glucose 135 mg/dL High 70-100 Blood Urea Nitrogen 35 mg/dL High 6-24 Creatinine 1.26 mg/dL High 0.51-0.95 BUN/Creatinine Ratio 27.8 High 8-20 Calcium 9.4 mg/dL 8.6-10.3 Egfr Non- 41.3 >60 Egfr 53.1 >60 34 Comprehensive Metabolic Prof 03/27/2016 Sodium 139 mEq/L 134-149 Potassium 5.0 mEq/L 3.6-5.5 Chloride 103 mEq/L 94-112 Carbon Dioxide 24 mEq/L 21-32 Glucose 104 mg/dL 70-105 BUN 32 mg/dL High 6-26 35 Creatinine 1.1 mg/dL 0.6-1.4 BUN/Creat Ratio 29.1 CALC 8.0-36.0 Calcium 8.9 mg/dL 8.6-10.2 Total Protein 6.7 g/dL 6.4-8.3 Albumin 4.0 g/dL 3.8-5.5 Globulin 2.7 g/dL 2.0-4.8 A/G Ratio 1.5 CALC 0.6-2.3 Alk. Phosphatase 86 U/L 30-110 Alt (SGPT) 14 U/L 7-35 Ast (Sgot) 18 U/L 5-34 Total Bilirubin 0.2 mg/dL 0.2-1.3 GFR Non- 51 ml/min/1.73m^ Low >=60 GFR >60 ml/min/1.73m^ >=60 Laboratory test finding 03/27/2016 TSH 2.26 mIU/L 0.50-6.00 Complete Blood Count 03/27/2016 WBC 7.1 x10^3/UL 3.6-9.6 RBC 3.00 x10^6/UL Low 3.90-5.70 HGB 10.1 g/dL Low 12.1-17.2 36 HCT 29 % Low 36-50 MCV 96.0 fL 82.2-97.4 MCH 33.8 pg High 27.6-33.3 MCHC 35.3 g/dL 33.0-35.5 RDW 13.4 % 11.6-13.7 PLT 229 x10^3/UL 150-400 MPV 7.0 fL Low 7.4-10.4 Gran # 5.3 x10^3/UL 1.5-7.2 Lymph# 1.6 x10^3/UL 0.7-4.9 [place]# 0.2 x10^3/UL 0.1-0.9 Gran % 72.4 % 42.2-75.2 Lymph % 23.7 % 20.5-51.1 [place]% 3.9 % 1.7-9.3 Laboratory test finding 03/27/2016 Free T4 1.41 ng/dL 0.75-1.54 Laboratory test finding 03/27/2016 Brain Natural Peptide 416 pg/mL High < 100 Laboratory test finding 02/07/2016 TSH 0.68 mIU/L 0.50-6.00 Free T4 1.83 ng/dL High 0.75-1.54 37 Free T3 2.31 pg/mL 2.00-4.90 Magnesium, Serum 2.1 mEq/L 1.2-2.1 Laboratory test finding 02/07/2016 Brain Natural 475 pg/mL High <100 Peptide Laboratory test finding 02/07/2016 C-Reactive Protein, 6.54 mg/L High 0.00 -3.00 2, 38 Cardiac Basic Metabolic Profile 01/03/2016 Sodium 139 mEq/L 134-149 Potassium 4.2 mEq/L 3.6-5.5 Chloride 102 mEq/L 94-112 Carbon Dioxide 27 mEq/L 21-32 Glucose 118 mg/dL High 70-105 39 BUN 32 mg/dL High 6-26 40 Creatinine 1.2 mg/dL 0.6-1.4 BUN/Creat Ratio 26.7 CALC 8.0-36.0 Calcium 9.4 mg/dL 8.6-10.2 GFR Non- 46 ml/min/1.73m^ Low >=60 GFR 56 ml/min/1.73m^ Low >=60 Platelet Count 04/19/2015 Platelet Count 185 10^3/uL 150-450 Mean Platelet Volume 7 um3 Low 7.4-10.4 Inr/Protime 04/19/2015 Inr 0.96 0.78-1.07 Laboratory test finding 04/19/2015 Partial Thrombo Time 28.9 seconds 26.0 -36.3 PTT CBC Auto Diff 01/30/2015 White Blood Count 6.3 10^3/uL 4.8-10.8 Red Blood Count 3.36 10^6/uL Low 4.0-5.4 Hemoglobin 10.8 g/dL Low 12.0-16.0 Hematocrit 33 % Low 35-47 Mean Corpuscular Volume 99 fL High 80-97 Mean Corpuscular Hemoglobin 32 pg High 27-31 Mean Corpuscular HGB Conc 33 g/dL 31-36 Red Cell Distribution Width 13 % 10.5-15 Platelet Count 201 10^3/uL 150-450 Mean Platelet Volume 9 um3 7.4-10.4 Abs Neutrophils 4.1 10^3/uL 1.5-7.7 Abs Lymphocytes 1.6 10^3/uL 1.0-4.8 Abs Monocytes 0.3 10^3/uL 0-0.8 Abs Eosinophils 0.2 10^3/uL 0-0.6 Abs Basophils 0 10^3/uL 0-0.2 Abs Nucleated RBC 0 10^3/uL Granulocyte % 65.2 % 38-83 Lymphocyte % 26.1 % 25-47 Monocyte % 5.3 % 1-9 Eosinophil % 3.0 % 0-6 Basophil % 0.4 % 0-2 Nucleated Red Blood Cells % 0 Laboratory test finding 01/09/2015 Rheumatoid Arth Factor 12.6 IU/mL 0.0- 13.9 Laboratory test finding 01/09/2015 TSH 3.53 mIU/L 0.50-6.00 Free T4 1.51 ng/dL 0.75-1.54 CBC Auto Diff 11/23/2014 White Blood Count 5.7 10^3/uL 4.8-10.8 Red Blood Count 3.22 10^6/uL Low 4.0-5.4 Hemoglobin 10.8 g/dL Low 12.0-16.0 Hematocrit 32 % Low 35-47 Mean Corpuscular Volume 99 fL High 80-97 Mean Corpuscular Hemoglobin 34 pg High 27-31 Mean Corpuscular HGB Conc 34 g/dL 31-36 Red Cell Distribution Width 15 % 10.5-15 Platelet Count 173 10^3/uL 150-450 Mean Platelet Volume 7 um3 Low 7.4-10.4 Abs Neutrophils 3.8 10^3/uL 1.5-7.7 Abs Lymphocytes 1.3 10^3/uL 1.0-4.8 Abs Monocytes 0.4 10^3/uL 0-0.8 Abs Eosinophils 0.2 10^3/uL 0-0.6 Abs Basophils 0 10^3/uL 0-0.2 Abs Nucleated RBC 0 10^3/uL Granulocyte % 66.8 % 38-83 Lymphocyte % 23.3 % Low 25-47 Monocyte % 6.3 % 1-9 Eosinophil % 3.1 % 0-6 Basophil % 0.5 % 0-2 Nucleated Red Blood Cells % 0 Comp Metabolic Panel 11/23/2014 Sodium 136 mmol/L 133-145 Potassium 4.1 mmol/L 3.5-5.0 Chloride 103 mmol/L 101-111 Co2 Carbon Dioxide 28 mmol/L 22-32 Anion Gap 5 mmol/L 2-11 Glucose 120 mg/dL High 70-100 Blood Urea Nitrogen 29 mg/dL High 6-24 Creatinine 1.22 mg/dL High 0.51-0.95 BUN/Creatinine Ratio 23.8 High 8-20 Calcium 9.1 mg/dL 8.6-10.3 Total Protein 6.7 g/dL 6.4-8.9 Albumin 3.9 g/dL 3.2-5.2 Globulin 2.8 g/dL 2-4 Albumin/Globulin Ratio 1.4 1-3 Total Bilirubin 0.30 mg/dL 0.2-1.0 Alkaline Phosphatase 80 U/L 34-104 Alt 9 U/L 7-52 Ast 17 U/L 13-39 Egfr Non- 43.1 >60 Egfr 55.4 >60 41 Lipid Profile 10/10/2014 Cholesterol 263 mg/dL High 120-200 Triglycerides 144 mg/dL 30-200 HDL Cholesterol 72 mg/dL 30-85 LDL (Calculated) 162 CALC High 0-129 VLDL Cholesterol 29 mg/dL 0-50 HDL Risk Factor 3.7 CALC 0.0-4.4 Comprehensive Metabolic Prof 10/10/2014 Sodium 138 mEq/L 134-149 Potassium 5.2 mEq/L 3.6-5.5 Chloride 103 mEq/L 94-112 Carbon Dioxide 27 mEq/L 21-32 Glucose 200 mg/dL High 70-105 42 BUN 20 mg/dL 6-26 Creatinine 0.9 mg/dL 0.6-1.4 BUN/Creat Ratio 22.2 CALC 8.0-36.0 Calcium 9.7 mg/dL 8.6-10.2 Total Protein 7.1 g/dL 6.4-8.3 Albumin 4.2 g/dL 3.8-5.5 Globulin 2.9 g/dL 2.0-4.8 A/G Ratio 1.4 CALC 0.6-2.3 Alk. Phosphatase 96 U/L 30-110 Alt (SGPT) 11 U/L 7-35 Ast (Sgot) 20 U/L 5-34 Total Bilirubin 0.3 mg/dL 0.2-1.3 Laboratory test finding 09/26/2014 Jak2 Mutation Analysis Blood See Comment 43 BCR/Abl Trans 9:22 Fish 09/26/2014 BCR/abl (Fish) Specimen Blood BCR/abl (Fish) Specimen Id [id number] BCR/abl (Fish) Order Date 27 Sep 2014 12:1 <SEE NOTE> 44 BCR/abl (Fish) Referral Reason anemia BCR/abl (Fish) Method See Comment 45 BCR/abl Results See Comment 46 BCR/abl (Fish) Interpretation See Comment 47 BCR/abl (Fish) [employer]er See Comment 48 BCR/abl (Fish) Report Date 06 Oct 2014 08:2 <SEE NOTE> 49 Laboratory test finding 09/26/2014 [facility] [place] Lab Test see scanned CBC Auto Diff 09/12/2014 White Blood Count 6.8 10^3/uL 4.8-10.8 Red Blood Count 3.06 10^6/uL Low 4.0-5.4 Hemoglobin 10.0 g/dL Low 12.0-16.0 Hematocrit 30 % Low 35-47 Mean Corpuscular Volume 98 fL High 80-97 Mean Corpuscular Hemoglobin 33 pg High 27-31 Mean Corpuscular HGB Conc 34 g/dL 31-36 Red Cell Distribution Width 14 % 10.5-15 Platelet Count 146 10^3/uL Low 150-450 Mean Platelet Volume 8 um3 7.4-10.4 Abs Neutrophils 5.1 10^3/uL 1.5-7.7 Abs Lymphocytes 0.8 10^3/uL Low 1.0-4.8 Abs Monocytes 0.8 10^3/uL 0-0.8 Abs Eosinophils 0.1 10^3/uL 0-0.6 Abs Basophils 0 10^3/uL 0-0.2 Abs Nucleated RBC 0 10^3/uL Granulocyte % 75.1 % 38-83 Lymphocyte % 12.1 % Low 25-47 Monocyte % 11.6 % High 1-9 Eosinophil % 0.8 % 0-6 Basophil % 0.4 % 0-2 Nucleated Red Blood Cells % 0 Laboratory test finding 08/08/2014 TSH 4.74 mIU/L 0.50-6.00 Free T4 1.51 ng/dL 0.75-1.54 Laboratory test finding 07/04/2014 Hemoglobin A1c (a/[place],CX) 5.3 % 4.1- 5.7 Brain Natural Peptide 145 pg/mL High <100 Laboratory test finding 06/13/2014 Vitamin B-12 726 pg/mL 230-1050 Laboratory test finding 06/13/2014 Antinuclear Abs, Ifa Negative 50 Rheumatoid Arth Factor 9.4 IU/mL 0.0-13.9 Homocysteine 15.4 umol/L High 0.0-15.0 Lyme Igg/M W/RFX West 06/13/2014 Lyme IgG/IgM Ab <0.91 ISR 0.00-0.90 51 Lyme Disease Ab, Quant, IgM <0.80 index 0.00-0.79 52 Methylmalonic Acid 06/13/2014 Methylmalonic Acid, 271 nmol/L 0-378 53 Serum Laboratory test finding 06/13/2014 Sed Rate 43mm (Fma/[place]/Centrex) Complete Blood Count 06/06/2014 WBC 6.1 x10^3/UL 3.6-9.6 RBC 3.06 x10^6/UL Low 3.90-5.70 54 HGB 10.4 g/dL Low 12.1-17.2 55 HCT 29 % Low 36-50 56 MCV 95.0 fL 82.2-97.4 MCH 34.0 pg High 27.6-33.3 57 MCHC 35.6 g/dL High 33.0-35.5 58 RDW 12.6 % 11.6-13.7 PLT 288 x10^3/UL 150-400 MPV 7.0 fL Low 7.4-10.4 Gran # 4.3 x10^3/UL 1.5-7.2 Lymph# 1.6 x10^3/UL 0.7-4.9 [place]# 0.2 x10^3/UL 0.1-0.9 Gran % 69.6 % 42.2-75.2 Lymph % 26.7 % 20.5-51.1 [place]% 3.7 % 1.7-9.3 Laboratory test finding 06/06/2014 Magnesium, Serum 1.6 mEq/L 1.2-2.1 TSH 3.13 mIU/L 0.50-6.00 Free T3 1.64 pg/mL Low 2.00-4.90 59 Free T4 1.69 ng/dL High 0.75-1.54 60 Comprehensive Metabolic Prof 06/06/2014 Sodium 135 mEq/L 134-149 Potassium 4.5 mEq/L 3.6-5.5 Chloride 97 mEq/L 94-112 Carbon Dioxide 24 mEq/L 21-32 Glucose 144 mg/dL High 70-105 61 BUN 18 mg/dL 6-26 Creatinine 1.0 mg/dL 0.6-1.4 BUN/Creat Ratio 18.0 CALC 8.0-36.0 Calcium 9.5 mg/dL 8.6-10.2 Total Protein 7.1 g/dL 6.4-8.3 Albumin 4.0 g/dL 3.8-5.5 Globulin 3.1 g/dL 2.0-4.8 A/G Ratio 1.3 CALC 0.6-2.3 Alk. Phosphatase 90 U/L 30-110 Alt (SGPT) 17 U/L 7-35 Ast (Sgot) 24 U/L 5-34 Total Bilirubin 0.3 mg/dL 0.2-1.3 Laboratory test finding 06/06/2014 Sed Rate (Fma/CMC/Centrex) 28mm Laboratory test finding 04/06/2014 [facility] Test see scannned Laboratory test finding 01/20/2014 [facility] Test 5-hiaa qt 24hr Uric Acid 24HR Urine 12/15/2013 Urine Random Uric Acid 24.0 mg/dL Urine Uric Acid/24HR 144.0 mg/24Hr Low 250-750 Urine Collection Time 24 Urine Total Volume 600 mL Laboratory test finding 12/09/2013 [facility] Test bun/creat Laboratory test finding 2013 TSH 1.27 mIU/L 0.50-6.00 Uric Acid 6.5 mg/dL 2.5-9.2 1 RESULTS VERIFIED BY REPEAT ANALYSIS 2 1 sst 3 Interpretive information available on [facility] Test Catalog at [email or web address] 4 [facility] Severe Sepsis and Septic Shock Management Bundle Measure requires all lactic acids initially measuring >2.0 mmol/L be repeated. 5 Because ethnic data is not always [...] 5 Kidney failure <15 (or dialysis) 6 >100 to <200 pg/mL: likely compensated congestive heart failure (CHF) 200 to 400 pg/mL: likely moderate CHF >400 pg/mL: likely moderate to severe CHF 7 RESULTS VERIFIED BY REPEAT ANALYSIS 8 RESULTS VERIFIED BY REPEAT ANALYSIS 9 Because ethnic data is not always readily [...] 15-29 5 Kidney failure <15 (or dialysis) 10 SEE RESULTS BELOW [id number] ON PC TRANSFUSED 01/31/18 1939 [id number] BN PC TRANSFUSED 02/01/18 1047 [id number] BN PC TRANSFUSED 01/31/18 1240 11 Because ethnic data is not always readily [...] 15-29 5 Kidney failure <15 (or dialysis) 12 [facility] Severe Sepsis and Septic Shock Management Bundle Measure requires all lactic acids initially measuring >2.0 mmol/L be repeated. 13 Because ethnic data is not always readily [...] 15-29 5 Kidney failure <15 (or dialysis) 14 Because ethnic data is not always readily [...] 15-29 5 Kidney failure <15 (or dialysis) 15 SEE RESULT BELOW Name: JOCELYNE MARTIN : [address]: Manas Villeda MD Acct: [id number] Unit: [id number] AGE: 76 Location: [facility] Re09/22/17 SEX: F Status: REG REF SPEC: [id number] OSCAR: 09/22/17-1614 [facility] DR: Manas Villeda MD REQ: [id number] RECD: 09/22/17 STATUS: COMP _ SOURCE: URINE [facility]: ORDERED: Urine Culture COMMENTS: [id number] kemp urine top Procedure Result Reported Site Urine Culture Final 09/24/17723 ML Organism 1 KLEBSIELLA PNEUMONIAE [place] Count >100,000 (Many) CFU/ML 1. KLEBSIELLA PNEUMONIAE M.I.C. RX --------- ------ Ampicillin >=32 R Cefazolin <=4 S Cefepime <=1 S Ceftriaxone <=1 S Ciprofloxacin <=0.25 S Gentamicin <=1 S Levofloxacin <=0.12 S Meropenem <=0.25 S Nitrofurantoin <=16 S Tetracycline 2 S Pipercillin/Tazobactam <=4 S Trimethoprim/Sulfamethoxazole <=20 S Amoxicillin/Clavulanic Acid 8 S Aztreonam <=1 S Contact the Microbiology Department for any additional antibiotic reporting. * ML - Main Lab . END OF REPORT DEPARTMENT OF PATHOLOGY, [address] [place] [address] Ramos Durand M.D. Director [facility] # [id number] 16 Normal Range 180 to 914 Indeterminate Range 145 to 180 Deficient Range <145 17 Test Performed by: [address] [id number] 18 >100 to <200 pg/mL: likely compensated congestive heart failure (CHF) 200 to 400 pg/mL: likely moderate CHF >400 pg/mL: likely moderate to severe CHF 19 Please note: The following may produce a false positive D Dimer test: - Rheumatoid factor greater than 60 IU/ml - Plasma hemoglobin greater than 0.05 gm/dl - Bilirubin greater than 50 mg/dl - Lipids greater than 1000 mg/dl - FDP greater than 20 ug/ml 20 [facility] Severe Sepsis and Septic Shock Management Bundle Measure requires all lactic acids initially measuring >2.0 mmol/L be repeated. 21 Because ethnic data is not always readily [...] 15-29 5 Kidney failure <15 (or dialysis) 22 Acute inflammation: >10.00 23 99th percentile=0.04 ng/mL Troponin results at [facility] and [facility] are not interchangeable. 24 [facility] Severe Sepsis and Septic Shock Management Bundle Measure requires all lactic acids initially measuring >2.0 mmol/L be repeated. 25 >100 to <200 pg/mL: likely compensated congestive heart failure (CHF) 200 to 400 pg/mL: likely moderate CHF >400 pg/mL: likely moderate to severe CHF 26 Because ethnic data is not always readily [...] 15-29 5 Kidney failure <15 (or dialysis) 27 Acute inflammation: >10.00 28 99th percentile=0.04 ng/mL Troponin results at [facility] and [facility] are not interchangeable. 29 Critical Result LACT:2.2 Called to [employer] at: 22:40:14 by:[id number] Read back by:[id number] [facility] Severe Sepsis and Septic Shock Management Bundle Measure requires all lactic acids initially measuring >2.0 mmol/L be repeated. 30 Because ethnic data is not always readily [...] 15-29 5 Kidney failure <15 (or dialysis) 31 Result TnIDx:0.05 Called to [employer] at: 22:42:43 by:[id number] Read back by: [id number] 99th percentile=0.04 ng/mL Troponin results at [facility] and [facility] are not interchangeable. 32 Please note: The following may produce a false positive D Dimer test: - Rheumatoid factor greater than 60 IU/ml - Plasma hemoglobin greater than 0.05 gm/dl - Bilirubin greater than 50 mg/dl - Lipids greater than 1000 mg/dl - FDP greater than 20 ug/ml 33 [facility] 13 (MW) Test Result Flag Units Drug Present and Declared for Prescription Verification Hydrocodone 174 EXPECTED ng/mg creat Hydromorphone 86 EXPECTED ng/mg creat Dihydrocodeine 71 EXPECTED ng/mg creat Norhydrocodone 2841 EXPECTED ng/mg creat Sources of hydrocodone include scheduled prescription medications. Hydromorphone, dihydrocodeine and norhydrocodone are expected metabolites of hydrocodone. Hydromorphone and dihydrocodeine are also available as scheduled prescription medications. Phenobarbital PRESENT EXPECTED Phenobarbital is an expected metabolite of primidone; Phenobarbital may also be administered as a prescription drug. Drug Absent but Declared for Prescription Verification Clonazepam Not Detected UNEXPECTED ng/mg creat Test Result Flag Units Ref Range Creatinine 91 mg/dL >=20 Declared Medications: The flagging and interpretation on this report are based on the following declared medications. Unexpected results may arise from inaccuracies in the declared medications. Note: The testing scope of this panel includes these medications: Clonazepam Hydrocodone (Hydrocodone-Acetaminophen) Hydromorphone (Dilaudid) Primidone Note: The testing scope of this panel does not include following reported medications: Acetaminophen (Hydrocodone-Acetaminophen) Albuterol Albuterol (Ventolin HFA) Calcium (Calcium/Magnesium) Cyclobenzaprine Docusate (Colace) Fluticasone Fluticasone (Advair) Furosemide Ipratropium Levocetirizine Levothyroxine Magnesium (Calcium/Magnesium) Montelukast (Singulair) Multivitamin Omeprazole Ondansetron Oxygen Potassium (Klor-Con) Pramipexole Propranolol Saline Salmeterol (Advair) Sennosides (Senna) Supplement (Shark Cartilage) Torsemide Venlafaxine For clinical consultation, please call . 34 Because ethnic data is not always readily [...] 15-29 5 Kidney failure <15 (or dialysis) 35 consistent w/ previous results 36 consistent w/ previous results 37 RESULTS VERIFIED BY REPEAT ANALYSIS 38 Relative Risk for Future Cardiovascular Event Low <1.00 Average 1.00 - 3.00 High >3.00 39 NON-FASTING 40 consistent w/ previous results 41 Because ethnic data is not always readily [...] 15-29 5 Kidney failure <15 (or dialysis) 42 RESULTS VERIFIED BY REPEAT ANALYSIS 43 Peripheral blood, JAK2 V617F mutation analysis: Negative for JAK2 V617F. A negative JAK2 V617F test result does not exclude the possibility of a myeloproliferative neoplasm (MPN). If clinical suspicion is high for primary myelofibrosis (PMF) or essential thrombocythemia (ET), consider additional testing for CALR Mutational Analysis (test ID: CALR), followed by MPL Exon 10 Mutational Detection (test ID: MPLB, MPLM, or MPLVA), if both JAK2 V617F and CALR tests are negative. If clinical suspicion is high for polycythemia vera, the test JAK2 Exon 12 and Other Non-V617F Mutational Detection (test ID: JAKXB or JAKXM) could be considered. Clinicopathologic correlation is recommended for a definitive diagnosis. Signing Pathologist: Karina L. San, M.D. ADDITIONAL INFORMATION Method summary - JAK2 V617F analysis: Quantitative, allele-specific polymerase chain reaction (PCR) assay was performed using extracted genomic DNA to evaluate for the point mutation causing JAK2 V617F. The analytic sensitivity of this assay has been determined at 0.01% (see [facility] RightScale Interpretive Handbook for method details). Laboratory developed test. PDF Report available at: [email or web address] Test Performed by: [place] [address] Gate Services Supervisor: Foreign Bee II, M.D., Ph.D. 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 46 Abnormality Result %Cutoff BCR/ABL1 fusion Normal <0.6 NOMENCLATURE nuc gerry(ABL1,BCR)x2[500] Of 500 nuclei, 0% had fusion of BCR and ABL1. 47 The result is within normal limits for the BCR and ABL1 gene regions. DISCLAIMER: Analyte Specific Reagent (ASR). This test was developed and its performance characteristics determined by [facility]. It has not been cleared or approved by the U.S. Food and Drug Administration. This FISH test does not rule out other chromosome abnormalities. 48 RESULT: Brian Dietrich MD, PhD 49 06 Oct 2014 08:23 Test Performed by: [place] [id number] Gate Services Supervisor: Foreign Bee II, M.D., Ph.D. 50 Negative <1:80 Borderline 1:80 Positive >1:80 51 Negative <0.91 Equivocal 0.91 - 1.09 Positive >1.09 Please note reference interval change 52 Negative <0.80 Equivocal 0.80 - 1.19 Positive >1.19 IgM levels may peak at 3-6 weeks post infection, then gradually decline. 53 Please note reference interval change 54 RESULTS VERIFIED BY REPEAT ANALYSIS 55 RESULTS VERIFIED BY REPEAT ANALYSIS 56 RESULTS VERIFIED BY REPEAT ANALYSIS 57 RESULTS VERIFIED BY REPEAT ANALYSIS 58 RESULTS VERIFIED BY REPEAT ANALYSIS 59 RESULTS VERIFIED BY REPEAT ANALYSIS 60 RESULTS VERIFIED BY REPEAT ANALYSIS 61 RESULTS VERIFIED BY REPEAT ANALYSIS Procedures Date CPT Code Description Status 05/15/2018 65389 Pulse Oximetry Completed 04/20/2018 95443 Pulse Oximetry Completed 01/20/2017 Mammogram Completed 10/22/2016 61929 Pulse Oximetry Completed 10/08/2016 82249 Pulse Oximetry Completed 06/07/2016 12354 Pulse Oximetry Completed 04/26/2016 33715 Pulse Oximetry Completed 03/27/2016 53946 Pulse Oximetry Completed 02/07/2016 30399 Pulse Oximetry Completed 07/27/2015 Mammogram Completed 06/30/2015 56690 Pulse Oximetry Completed 10/10/2014 12659 Pulse Oximetry Completed 10/04/2014 38230 Nebulizer Treatment Completed 05/20/2014 Mammogram Completed 09/18/2013 Colonoscopy Completed Encounters Type Date Location Provider CPT E/M Dx Office Visit 05/15/2018 3:30p [facility] Office Veronica Glez [employer] [address] D64.9 Z23 R53.83 J44.9 N18.4 I20.0 M25.561 M25.562 Office Visit 04/20/2018 4:30p [facility] [place] [address] J18.1 J44.9 G89.4 Office Visit 03/16/2018 2:30p [facility] Office Manas Villeda M.D. 00236 Z01.818 H25.13 I25.119 E03.9 I10 N18.4 K21.9 J45.998 S35.511S D50.0 G25.81 I48.0 G89.4 Office Visit 02/05/2018 11:00a [facility] Office Veronica Glez [facility] 9[address] R07.89 I20.0 R51 G89.4 M79.604 Office Visit 01/16/2018 11:00a [facility] Office Veronica Glez, [facility] 30048 M25.562 M53.3 R07.89 I20.0 R51 G89.4 Office Visit 09/24/2017 4:00p [facility] Office Veronica Glez, [facility] 86182 R21 W01.0xxA R07.89 R06.02 G89.4 K59.01 N39.42 G47.00 R60.0 Office Visit 08/29/2017 10:00a [facility] Office Veronica Glez, [facility] 16798 J01.90 R05 K21.9 G89.4 R06.02 M15.0 I20.9 E03.9 Office Visit 06/10/2017 3:30p Main Office Veronica Glez, [facility] 17400 M79.672 R29.6 R53.1 R51 Office Visit 05/07/2017 4:15p [facility] Office Veronica Glez, [facility] 85233 R51 D64.9 R53.1 W17.89xA J44.9 K21.9 R13.10 G89.4 Office Visit 04/10/2017 2:30p Main Office Veronica Glez, [facility] 6[address] Z23 M79.652 M79.651 N95.0 G89.4 D64.9 Office Visit 02/28/2017 2:00p [facility] Office Veronica Glez, [facility] 72488 N95.0 R51 R06.02 G89.4 D64.9 Office Visit 12/24/2016 2:00p [facility] Office Veronica Glez, [facility] 47042 Z23 R51 R60.0 I48.91 G89.4 R06.02 K21.9 Office Visit 11/28/2016 3:45p Main Office Veronica Glez, [facility] 46681 R51 I48.91 K25.7 G89.4 M79.644 Office Visit 11/08/2016 1:00p [facility] Office Veronica Glez, [facility] 15032 K25.7 I48.91 R51 M79.644 M15.0 D64.9 G89.4 Office Visit 10/22/2016 4:00p [facility] Office Veronica Glez, [facility] 66906 R51 I48.91 R05 R06.02 R09.02 R11.10 Office Visit 10/08/2016 3:00p [facility] Office Veronica Glez, [facility] 38351 R51 I48.91 R05 G89.4 M15.0 R06.02 Office Visit 09/16/2016 3:00p [facility] Office Veronica Glez, [facility] 55234 R51 G89.4 M15.0 D64.9 Office Visit 08/14/2016 3:30p [facility] Office Veronica Glez, [facility] 66335 R51 M15.0 R09.02 G89.4 R31.9 D64.9 Office Visit 06/07/2016 11:00a [facility] Office Veronica Glez, [facility] 25526 J01.90 R51 R53.82 M79.7 M15.0 Office Visit 04/26/2016 3:00p [facility] Office Veronica Glez, [facility] 68572 R51 R53.82 M79.7 M15.0 R09.02 D50.9 Office Visit 04/10/2016 2:00p [facility] Office Veronica Glez, [facility] 99159 R53.82 M79.7 M15.0 R09.02 D50.9 J44.9 G47.62 Z23 Office Visit 03/27/2016 3:20p [facility] Office Manas Villeda M.D. 38795 R51 R53.82 E03.9 Office Visit 02/07/2016 3:30p [facility] Office Veronica Glez, [facility] 53461 I10 E03.9 M79.7 K21.9 G25.81 M15.0 G89.4 R09.02 Office Visit 01/03/2016 3:40p [facility] Office Manas Villeda M.D. 71281 I10 E03.9 M79.7 K21.9 G25.81 M15.0 J45.998 G89.4 R51 Office Visit 09/06/2015 4:30p [facility] Office Veronica Glez, [facility] 50093 G89.4 M79.1 M15.0 Office Visit 08/11/2015 1:00p [facility] Office Veronica Glez, [facility] 50531 G89.4 M79.1 M15.0 Office Visit 06/30/2015 2:00p [facility] Office Veronica Glez, [facility] 27918 M15.0 D53.9 M79.1 G89.4 Office Visit 02/27/2015 2:30p [facility] Office Veronica Glez, [facility] 53898 715.09 281.9 729.1 782.3 338.4 Office Visit 01/09/2015 10:30a [facility] Office Veronica Glez, [facility] 73703 274.00 715.09 281.9 729.1 244.9 724.5 Office Visit 11/29/2014 11:45a [facility] Office Veronica Glez, [facility] 67092 333.94 715.00 724.5 285.9 786.2 Office Visit 10/10/2014 11:20a [facility] Office Manas Villeda M.D. 34869 401.9 493.90 244.9 729.1 530.81 333.94 715.00 285.9 786.50 Office Visit 10/04/2014 2:00p [facility] Office Veronica Glez, [facility] 75004 465.9 786.2 Office Visit 09/05/2014 3:00p [facility] Office Veronica Glez, [facility] 17653 729.82 465.9 Office Visit 08/08/2014 3:00p [facility] Office Veronica Glez, [facility] 25549 724.5 281.9 729.1 719.47 244.9 Office Visit 07/04/2014 1:15p [facility] Office Veronica Glez, [facility] 73518 790.21 724.5 281.9 782.3 Office Visit 06/13/2014 4:00p [facility] Office Veronica Glez, [facility] 20271 729.1 274.00 715.09 281.9 Office Visit 06/06/2014 3:00p [facility] Office Veronica Glez, [facility] 78770 782.62 530.81 729.1 Office Visit 05/02/2014 1:15p [facility] Office Veronica Glez, [facility] 04611 782.62 530.81 787.02 Office Visit 02/14/2014 2:20p [facility] Manas Villeda M.D. 36688 782.62 Office Visit 01/06/2014 7:00p Main Office Manas Villeda M.D. 67769 782.62 Office Visit 2013 8:30a [facility] Office Manas Villeda M.D. 87163 244.9 274.00 333.94 493.90 782.3 715.09 729.1 530.81 Plan of Care 05/20/2018 - Veronica Glez, [id number] SljicQ78.1 Lobar pneumonia, unspecified brsqwsvxY00.84 Jaw painR51 FwzptycmQ53.0 Unstable anginaAllComments:~B_~U_ Medication Management~b_~u_ Patient Understands medications he 's taking? Yes No Are there Barriers to Adherence? Yes No Has the patient been asked about herbal supplements and therapies, and OTC meds? Yes No As always, we strongly encourage a healthy diet and makingphysical activity a part of your every day life. If you have questions about how or where to start, please contact the office.
--- OUTSIDE RECORDS SUMMARY | 2018-05-20 13:35 | XMS REPORT ---
:1940 External Reference #:[id number] Author Organization [employer] [facility] Address [address] [place] [address] [place] [address] Phone [phone] Care Team Providers Name Role Phone Manas Villeda MD Primary Care Physician Unavailable Payers Type Date Identification Numbers Payment Provider Subscriber Medicare Primary Effective: Policy Number: Medicare Roxi Martin 2018 [id number] PayID: [id number] [address] [place] [address] Medinew albin Part B Effective: 2007 Policy Number: Medicare Roxi Martin [id number] Expires: 2018 PayID: [id number] [address] [place] [address] Medigap Part B Policy Number: [id number] [facility] Roxi Martin PayID: [id number] [address] [place] [address] Problems Date Description Provider Status Onset: 04/06/2015 Restless legs Jaziel Hurst M.D. Active Onset: 06/10/2016 Dyspnea Sharon Peter MD Active Onset: 06/10/2016 Asthma without status asthmaticus Sharon Peter MD Active Onset: 06/10/2016 Disturbance in sleep behavior Sharon Peter MD Active Onset: 06/10/2016 Morbid obesity Sharon Peter MD Active Onset: 02/03/2018 Encounter for planned Bennie Herron M.D., 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 Active Onset: 01/31/2018 Chest pain Shanda Gregory D.O. Active Onset: 01/31/2018 Hypothyroidism Shanda Gregory D.O. Active Onset: 02/01/2018 Chronic diastolic heart failure Shanda Gregory D.O. 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 Active and stg 1-4/unsp chr kdny Onset: 04/12/2018 Pneumonia PHYLLIS Lara Active Family History Date Family Member(s) Problem(s) [...] active 02/03/2018 Fentanyl active 02/03/2018 Amitriptyline active 05/01/2018 Brilinta active dyspnea 02/18/2011 Aspirin inactive Medications Medication Date Status Form Strength Qnty SIG Indications Ordering Provider Pantoprazole 05/18/ Active Tablets 20mg 30tabs one each Benny Tolbert 2017 DR zoya Cote, before MD breakfast Amiodarone HCL 05/01/ Active Tablets 100mg 90tabs 1 by mouth You S. 2018 every day, Danny, DO use generic FACC Plavix 02/27/ Active Tablets 75mg 90tabs Take one You S. 2018 tablet by Danny, DO mouth daily FACC Metoprolol 02/13/ Active Tablets 25mg 180tab 1 by mouth You S. Tartrate 2018 s twice a day Danny, DO FACC Electric Bed 01/02/ Active Electric R26.9 You S. 2018 bed for Danny, DO home use FACC I50.32 R60.0 Repatha Sureclick 12/03/2017 Active Solution 140mg/ml 2ml sc [id number] ( You S. Auto-Inject has not Danny, started yet) DO FACC Isosorbide 08/22/2017 Active Tablets ER 120mg 90tab Take one I You S. Mononitrate ER 24HR s tablet by 2 Delgado, mouth daily 5 DO FACC . 1 1 9 Amlodipine 08/20/2017 Active Tablets 10mg 90tab 1 by mouth I You S. Besylate s every day 2 Danny, 5 DO FACC . 1 1 9 Ezetimibe 06/27/2017 Active Tablets 10mg 90tab take one E You S. joshua tablet 7 Delgado, daily, 8 DO FACC generic if . available 5 Oxygen 08/15/2016 Active Misc 1unit please use [...] 1 by mouth Unknown Sodium every day Ventolin HFA Active Aerosol 108(90Base 2 puffs by Unknown ) mcg/Act mouth four times a day as needed Breo Ellipta Active Aerosol 100-25mcg/ 1 puff Unknown Inh inhaled daily Nitroglycerin Active Tablets Sub 0.4mg 25tab 1 sl q5mins You lewis x3 as needed Delgaod, for chest DO FACC pain Shark Cartilage [...] Active Capsules 150mg 90cap Take 1 Benny Cote After Dinner ( taken 1 hour before supper) Metoprolol 02/13/2018 - Hx Tablets 25mg Take two by You Duggan Tartrate 02/13/2018 mouth twice Delgado, a day DO FACC Brilinta 01/27/2018 - Hx Tablets 90mg 180ta 1 tab by You Duggan 02/27/2018 bs mouth twice Delgado, a day DO FACC Metoprolol 01/27/2018 - Hx Tablets 50mg 1 by mouth You SKandi Tartrate 01/30/2018 twice a Delgado, day(increase DO FACC d prior to Cath) Metoprolol 01/27/2018 - Hx Tablets ER 50mg 1 by mouth You Lewis. Succinate ER 02/11/2018 24HR twice daily Delgado, DO FACC Plavix 12/30/2017 - Hx Tablets 75mg 60tab Take one I You Duggan 01/26/2018 s tablet a day 2 Delgado, 5 DO FACC . 1 1 9 Ranexa 12/25/2017 - Hx Tablets ER 500mg 60tab Take one by You Duggan 02/13/2018 12HR s mouth twice Delgado, daily DO FACC Omeprazole 06/27/2017 - Hx Capsules DR 40mg 90cap 1 orally I You Duggan 05/18/2018 s qd-takes 1 2 Delgado, po twice 5 DO FACC daily per pt . 1 1 9 Sucralfate 05/23/2017 - Hx Tablets 1gm 90tab 1 by mouth You SKandi 05/21/2017 s three times Delgado, a day prior DO FACC to meals and at hs Amlodipine 05/23/2017 - Hx Tablets 5mg 90tab 2 by mouth I You S. Besylate 08/20/2017 s every day 2 Delgado, 5 DO FACC . 1 1 9 Pravastatin 05/23/2017 - Hx Tablets 10mg 90tab 1 by mouth I You S. Sodium 06/26/2017 s every 2 Delgado, evening 5 DO FACC . 1 1 9 Topiramate 07/18/2016 - Hx Tablets 25mg 120ta 1 every Jaziel S. 12/03/2016 bs night at [place], bedtime for M.D. 1 week then 2 every night at bedtime for 1 week then 3 every night at bedtime for 1 week then 4 Spiriva Respimat 06/10/2016 - Hx Aerosol 1.25mcg/Ac 12gm 2 puffs, J Sharon 05/21/2017 t daily 4 Brittani, 5 . 9 0 9 Klor-Con M20 - [...] Tablets 50mg 270ta 2 by mouth Jaziel Duggan 02/02/2018 bs every night [place], at bedtime M.D. Vitamin D - Hx [...] 40mg 1 by mouth Unknown 06/26/2017 bid Amiodarone HCL - Hx Tablets 200mg 90tab 1 by mouth You S. 05/01/2018 s once a Delgado, day-on Hold DO FACC Metoprolol - Hx Tablets 25mg 180ta 1 by mouth You S. Tartrate 01/30/2018 bs twice a day Delgado, DO FACC Acetaminophen - Hx Tablets 325mg 2 [...] Millicuries Vital Signs Date Vital Result Comment 05/18/2018 Height 61 inches 5'1" Heart Rate 61 /min BP Systolic Sitting 174 mmHg BP Diastolic Sitting 78 mmHg Body Temperature 97.5 F O2 % BldC Oximetry 98 % 05/01/2018 Height 61 inches 5'1" Weight 251.00 lb Heart Rate 60 /min BP Systolic Sitting 94 mmHg Left lower forearm Large Cuff BP Diastolic Sitting 62 mmHg Left lower forearm Large Cuff BP Systolic Standing 108 mmHg Left lower forearm Large Cuff BP Diastolic Standing 80 mmHg Left lower forearm Large Cuff Respiratory Rate 16 /min Pain Level 9 knee pain O2 % BldC Oximetry 88 % BMI (Body Mass Index) 47.4 kg/m2 04/30/2018 Height 61 inches 5'1" Weight 246.00 lb Heart Rate 61 /min BP Systolic Sitting 122 mmHg BP Diastolic Sitting 68 mmHg Respiratory Rate 17 /min Pain Level 9 BMI (Body Mass Index) 46.5 kg/m2 04/09/2018 Weight 246.00 lb Heart Rate 68 /min BP Systolic Sitting 110 mmHg BP Diastolic Sitting 64 mmHg 02/26/2018 Height 61 inches 5'1" Weight 247.00 [...] T4 (Free Thyroxine) 1.17 ng/dL High 0.61-1.12 Laboratory test finding 01/20/2018 Ferritin 151.0 ng/mL 11-307 Cath Panel 01/20/2018 Partial Thrombo Time 26.2 seconds 26.0-36.3 PTT Inr/Protime 01/20/2018 Inr 0.93 0.77-1.02 Comp Metabolic Panel 01/20/2018 Sodium 138 mmol/L [...] High 3.5-5.0 Anion Gap 9 mmol/L 2-11 CBC Auto Diff 01/20/2018 White Blood Count [...] Blood Cells % 0 Laboratory test finding 08/15/2017 LDL Cholesterol Direct 103 mg/dL 3 TSH (Thyroid Stim Horm) 15.82 mcIU/mL High 0.34-5.60 Comp Metabolic Panel 06/26/2017 Sodium 138 mmol/L [...] Egfr Non- 38.0 >60 Egfr 48.9 >60 4 Laboratory test finding 06/26/2017 Magnesium 1.8 mg/dL Low 1.9-2.7 Free T4 (Free Thyroxine) 1.19 ng/dL High 0.61-1.12 TSH (Thyroid Stim Horm) 10.61 mcIU/mL High 0.34-5.60 B-Type Natriuretic Peptide BNP 351 pg/mL High 5 Laboratory test finding 06/26/2017 LDL Cholesterol [...] HOLD AND CALL DR HERRON CELL PHONE [phone] 2 Because ethnic data is not always [...] 130-159 High: 160-189 Very High: >189 4 Because ethnic data is not always readily [...] 15-29 5 Kidney failure <15 (or dialysis) 5 >100 to <200 pg/mL: likely compensated congestive heart failure (CHF) 200 to 400 pg/mL: likely moderate CHF >400 pg/mL: likely moderate to severe CHF 6 Desirable: <100 Near Optimal: 100-129 Borderline [...] Date CPT Code Description Status Comment 04/09/2018 39161 EKG Tracing & Interpretation Completed 03/25/2018 61802 Stress Test Completed 03/25/2018 18742 Myocardial Perfusion Imaging Completed Tomographic (Spect) Multiple Studies 02/03/2018 09940 EKG Tracing & Interpretation Completed 01/31/2018 08975 EKG, Interpretation Only Completed 01/26/2018 25307 EKG, Interpretation Only Completed 01/25/2018 23813 ECHO Transthorasic Realtime Completed 2D W Doppler & Color Flow Hosp 01/24/2018 87362 EKG, Interpretation Only Completed 01/24/2018 52545 Insert Non-Tunneled Venous Completed Catether 01/23/2018 20033 Percutaneous Transcatheter Completed Placement Of Intracoronary Stent 01/23/2018 11180 EKG, Interpretation Only Completed 01/23/2018 96231 Cath PLMT&NJX L Ventriculog Completed Img S&I 01/16/2018 53036 EKG Tracing & Interpretation Completed 12/30/2017 41014 EKG Tracing & Interpretation Completed 12/29/2017 53596 Diffusing Capacity Completed 12/29/2017 04467 Pulmonary Completed Function><Bronchodil 12/03/2017 80153 EKG Tracing & Interpretation Completed 10/10/2017 43804 EKG Tracing & Interpretation Completed 05/23/2017 67819 EKG Tracing & Interpretation Completed 10/14/2016 73503 ECHO Transthorasic Realtime Completed 2D W Doppler & Color Flow Hosp 10/11/2016 18361 EKG, Interpretation Only Completed 10/01/2016 76253 Cath PLMT&NJX L Ventriculog Completed Img S&I 09/29/2016 22201 EKG, Interpretation Only Completed 09/28/2016 18443 EKG, Interpretation Only Completed 09/26/2016 77028 Treadmill Interp/Report Only Completed 09/26/2016 10851 Stress Test Supervsn W/Out Completed I/R 09/25/2016 67781 Color Flow Doppler/Interp & Completed Reprt 09/25/2016 95439 Pulse Completed Wave/Continuous-Interp.RPT 09/25/2016 08341 Echocardiography, Completed Transesophageal, Real Time W/Image 2D W/W/O M-M 09/25/2016 67822 Cardioversion Completed 08/06/2016 Diabetic Retinal Eye Exam Completed Document: 08/06/16 - Consult Ophthalmology - Brian 07/04/2016 95528 Plethysmography Determination Completed Lung Volumes & Per Airway Resist 07/04/2016 01676 Pulmonary Completed Function><Bronchodil 07/04/2016 08628 Diffusing Capacity Completed 07/03/2016 93340 Polysomnography Sleep Staging Completed 4+ Parameters 01/04/2016 97024 Nerve Conduction 01- Completed Studies 03/18/2012 81552 Nerve Conduction, Sensory Completed 03/18/2012 86451 Nerve Conduction, Motor W/O Completed F-Wave Study 02/18/2011 77041 Remove Impacted Cerumen Completed 05/07/2005 02860 Treadmill Interp/Report Only Completed 05/07/2005 11558 Stress Test Supervsn W/Out Completed I/R Encounters Type Date Location Provider CPT E/M Dx Office Visit 05/01/2018 [place] [address] I25.119 11:15a Of [facility] I48.0 N18.9 I25.2 I11.0 E66.8 I50.32 G25.81 D64.9 E03.9 Office Visit 04/14/2018 2:28p [facility] Delroy Hilliard, 43705 I25.10 [facility] Jeane J18.9 R79.89 Office Visit 04/13/2018 3:14p [facility] Delroy Hilliard, 91706 R07.89 [facility] Clotilde.Reanna R79.89 J18.9 I25.10 J40 Office Visit 04/09/2018 3:40p [facility] [place] [place] [address] I25.2 [facility] I25.10 I50.32 I11.0 I48.0 D64.9 E66.8 E03.9 Office Visit 02/26/2018 1:30p [facility] [address] R06.02 Services Of [facility] J45.20 G47.33 Office Visit 02/17/2018 3:00p [facility] Of Avinash Romero M.D. 09907 D47.1 [facility] D64.9 I21.4 Office Visit 02/13/2018 10:20a [place] [address] I25.2 Machine [facility] AT [facility] I25.119 I50.32 I48.0 N18.9 D64.9 E66.8 E03.9 Office Visit 02/03/2018 2:40p [facility] Kristen Herron, 60483 Z48.812 Machine [facility]rer AT [facility] Jeane, [facility], [facility] Office Visit 02/02/2018 1:14p [facility], Shanda Gregory, 01688 I20.9 Hospitalists D.O. I50.32 I48.0 I11.0 Office Visit 02/01/2018 1:14p [facility] Assoc,pc Shanda Gregory, 53566 I50.32 Hospitalists D.O. I13.0 J96.11 G25.81 N18.3 Office Visit 01/31/2018 1:13p [facility], Shanda Gregory, 02859 D64.9 Hospitalists D.O. R07.9 I48.91 E03.9 G25.81 Office Visit 01/31/2018 1:29p [facility] Saad Holley, 61614 R07.9 MAlejandro, [facility], [facility] Office Visit 01/27/2018 11:56a [facility] Ass,carli Singh, 05456 I20.0 Hospitalists Jeane G25.81 J96.11 I48.91 S30.1xxA D64.9 Office Visit 01/26/2018 11:56a [facility] Lennox Singh, 68020 J96.21 Assoc, Hospitalists Jeane I25.10 S30.1xxA I48.91 N18.3 D64.9 Office Visit 01/25/2018 9:51a [facility] Kristen Herron M.D., 49926 I21.4 Machine Burrer AT [facility], [facility] I25.10 Office Visit 01/25/2018 11:55a [facility] Lennox Singh, 54588 J96.21 Assoc, Hospitalists Jeane I25.10 I48.91 G25.81 N18.3 S30.1xxA Office Visit 01/24/2018 9:49a [facility] Of Bennie Herron M.D., 50128 I21.4 Machine Bur[facility] AT [facility], FSCAI I25.10 Office Visit 01/24/2018 11:54a [facility] Lennox Singh, 33261 J96.21 Assoc,pc Hospitalists MAlejandro I25.10 I48.0 I48.91 N18.3 K25.9 G25.81 Office Visit 01/23/2018 11:52a [facility] Lennox Singh, 61346 I48.91 Assoc,pc Hospitalists Jeane J96.21 I48.0 N18.3 K25.9 Office Visit 01/22/2018 9:22a [facility] Of Bennie Herron M.D., 41487 R07.9 Machine Burrer AT [facility], FSCAI R79.89 Office Visit 01/22/2018 11:52a [facility],pc Yuval Marshall, 14395 I20.9 Hospitalists MAlejandro N18.9 I48.91 D64.9 Office Visit 01/21/2018 11:50a [facility],pc Bryson Steiner, 54312 I20.0 Hospitalists M.DKandi I48.91 G47.33 N18.9 J96.10 Office Visit 01/21/2018 12:37p [facility] Of Delroy Hilliard, 21644 I25.110 Karina M.Reanna Office Visit 01/20/2018 2:40p [facility] Avinash Romero M.D. 13884 D47.1 Of [facility] AT [place] D53.9 Office Visit 01/16/2018 3:40p [facility] [place] [address] I20.0 [facility] FACC I25.119 D64.9 N18.9 I48.0 I50.32 I25.2 E78.5 Z87.11 E03.9 Office Visit 12/30/2017 3:20p [facility] Of You Delgado, 92821 I25.119 [facility] DO [facility] D64.9 N18.9 I48.0 I50.32 Z87.11 E66.8 I25.2 E78.5 Office Visit 12/11/2017 3:45p [facility] Jaziel Duggan 20365 G43.009 Neurologic Serv Of Karina Hurst M.D. G89.4 G44.221 Office Visit 12/03/2017 12:00p [place] [facility] [place] [facility] [place] [address] [facility] I25.119 E78.5 I48.0 N18.9 I50.32 Z87.11 E66.01 D64.9 Office Visit 11/11/2017 4:00p [facility] Of Avinash Romero M.D. 30281 D47.1 [facility] AT [place] D53.9 Office Visit 10/16/2017 11:30a [facility] Jaziel Hurst, 98062 G25.0 Neurologic Serv Of Karina Ching R51 I25.119 Office Visit 10/10/2017 10:20a Cardiology Services Of You Delgado 32842 I25.119 [facility] I48.0 E78.5 E03.9 N18.9 I50.32 D64.9 Z87.11 Office Visit 08/22/2017 11:00a Cardiology Services Of You Delgado 29599 I25.119 [facility] AT [facility] E66.01 I48.0 E78.5 E03.9 I50.32 N18.9 D64.9 Z87.11 Office Visit 08/19/2017 4:00p [facility] Of Avinash Romero M.D. 72438 D47.1 [facility] AT [place] R53.83 D53.9 Office Visit 07/01/2017 1:30p [facility] [address] J45.20 Services Of Karina E66.01 Office Visit 06/27/2017 9:40a Cardiology Services Of You Delgado 86822 I25.119 Machine Burrer AT [facility] I48.0 E78.5 E03.9 I50.32 N18.9 E66.01 D64.9 Z87.11 Office Visit 06/18/2017 4:00p [facility] Jaziel Hurst 92582 I20.8 Services Of Karina Ching R51 G25.0 Office Visit 05/23/2017 10:40a Cardiology Services Of You Delgado, 79873 I25.119 [facility] AT [place] DO [facility] I48.0 I50.9 E03.9 Z87.11 D64.9 N18.9 E78.5 R06.02 Office Visit 05/01/2017 4:00p [place] [facility] Jaziel JoshuaKandi Hurst, 34957 R51 Serv Of Karina Ching I20.8 Office Visit 04/01/2017 3:40p [facility] Of Avinash Romero M.D. 74969 D64.9 [facility] AT [place] Office Visit 12/30/2016 1:00p [facility] [place] [address] R06.02 Services Of Machine Burrer J45.20 G47.33 E66.01 Office Visit 10/16/2016 10:21a [facility] [place] [address] R06.02 Assoc, Hospitalists I50.9 E03.9 J18.1 Office Visit 10/15/2016 2:45p [facility] [place] [address] J12.9 Services Of Machine [facility] J45.21 I50.31 Office Visit 10/15/2016 10:16a [facility] [place] [address] R06.02 Assoc,pc Hospitalists E03.9 I50.9 J18.1 Office Visit 10/14/2016 10:16a [facility] [place] [address] R06.02 Assoc,pc Hospitalists E03.9 I50.9 J18.1 Office Visit 10/14/2016 2:44p [facility] [place] [address] J45.21 Services Of Machine Burrer J12.9 Office Visit 10/13/2016 [facility] Fawn Martin, 94457 R06.02 10:15a Assoc, HAND [employer] Hospitalists E03.9 I50.9 J18.1 Office Visit 10/12/2016 [facility] Fawn Martin, 14416 R06.02 10:14a Assoc, HAND [employer] Hospitalists I50.9 E03.9 J18.1 Office Visit 10/11/2016 10:14a [facility] Annika Varner, HAND [employer] 15185 R06.02 Assoc,pc Hospitalists E03.9 I50.9 J18.1 Office Visit 10/10/2016 10:13a [facility] Annika Varner, HAND [employer] [employer] [place] 90364 R06.02 Assoc,pc Hospitalists E03.9 I50.9 Office Visit 10/09/2016 10:12a [facility] Favio Mcqueen M.D. 76498 R06.02 Hospitalists E03.9 I50.9 Office Visit 10/03/2016 9:29a [facility] Lennox Parsonsheela, 36973 I21.4 Hospitalists M.D. I48.91 J45.20 G47.33 Office Visit 10/02/2016 9:28a [facility] Lennox Singh, 27130 I21.4 Hospitalists M.D. I48.91 J45.20 G47.33 Office Visit 10/02/2016 1:07p [facility] Of Amber Kaminski M.D. 26817 I25.10 Machine Bur[facility] I48.91 Office Visit 10/01/2016 9:28a [facility] Capri Connolly, 58368 I21.4 Hospitalists M.D. I48.91 J45.20 G47.33 Office Visit 09/30/2016 9:27a [facility] Capri Connolly, 49876 I21.4 Hospitalists M.D. I48.91 J45.20 Office Visit 09/29/2016 9:27a [facility] Capri Connolly, 91620 I21.4 Hospitalists M.D. I48.91 J45.20 Office Visit 09/29/2016 1:06p [facility] Zack Francis M.D. 50443 I20.9 I48.91 Office Visit 09/28/2016 9:26a [facility] Capri Connolly, 65458 I21.4 Hospitalists M.D. I48.91 J45.20 G47.33 Office Visit 09/27/2016 9:26a [facility] Daniela Lopez, 66800 R01.1 Hospitalists M.DKandi I48.91 J45.20 Office Visit 09/27/2016 1:05p [facility] Zack Francis, 92837 I21.4 M.D. Office Visit 09/26/2016 9:26a [facility] Capriemeli Connolly, 08934 R07.1 Hospitalists M.DKandi I48.91 J45.20 Office Visit 09/25/2016 8:34a [facility] Of Amber Kaminski M.D. 68704 Machine Burrer Office Visit 09/25/2016 8:35a [facility] Of Anastasiya Yin, 47940 R07.9 Machine Burrer AT [facility] MD, FACC, [facility] Office Visit 09/25/2016 9:25a [facility] Ramona Ashley, 04282 R07.1 Hospitalists J45.20 I48.91 G47.33 Office Visit 07/04/2016 2:45p [facility] Jaziel Hurst 74675 R51 Serv Of Karina Ching Office Visit 06/11/2016 2:00p [facility] Jaziel Hurst 53400 R51 Of Karina Ching G89.29 Office Visit 06/10/2016 1:30p [facility] [address] R06.02 Services Of [facility] J45.909 G47.9 E66.01 Office Visit 04/16/2016 3:40p [facility] Gita Romero M.D. 97123 D47.1 [facility] [place] R53.83 G89.4 D63.1 N18.9 Office Visit 04/02/2016 1:00p [facility] Gita Romero M.D. 93410 D47.1 [facility] AT [place] G89.4 R53.83 D64.9 Office Visit 02/06/2016 3:00p [facility] Gita Romero M.D. 18296 D47.1 [facility] AT [place] G89.4 Office Visit 04/06/2015 10:00a [place] Jaziel Hurst 94091 333.94 Neurologic Serv Of Machine Burrer M.D. 333.1 V49.3 Office Visit 04/01/2013 10:30a [place] Jaziel JoshuaKandi Hurst, 88405 333.1 Neurologic Serv Of [facility] Clotilde.D. 333.94 Office Visit 03/18/2012 11:45a [place] Jaziel Schmitzffney, 61302 354.2 Neurologic Serv Of [facility] Clotilde.D. 333.94 333.1 Office Visit 02/18/2011 10:45a ENT Services Of [facility], 56451 278.00 [facility] AT [facility] 380.4 389.10 787.20 Office Visit 04/28/2009 12:30a [facility], Lennox Singh, 65392 567.9 Hospitalists M.D. 780.97 278.00 277.9 Office Visit 04/27/2009 1:00a [facility], Lennox Snigh, 83319 567.9 Hospitalists M.D. 780.97 278.00 244.9 Office Visit 04/26/2009 1:00a [facility], Lennox Singh, 01678 567.9 Hospitalists M.D. 780.97 278.00 244.9 Office Visit 09/30/2007 11:00a Neurosurgery Services Aureliano Gayle, 82021 721.3 Of [facility] AT [facility] Office Visit 06/03/2007 4:00p Neurosurgery Services Aureliano Gayle, 03285 721.3 Of [facility] AT [facility] Office Visit 03/04/2007 3:30p Neurosurgery Services Aureliano Gayle 61956 721.3 Of [facility] AT [facility] Office Visit 11/26/2006 3:30p Neurosurgery Services Aureliano Gayle 88857 721.3 Of Machine Burrer AT [facility] Office Visit 08/27/2006 3:00p Neurosurgery Services Aureliano Gayle, 52324 724.02 Of [facility] AT [facility] Office Visit 05/07/2005 1:00p [facility] Zack Pina 02151 794.31 Jeane Francis 401.1 Plan of Care Future Appointment(s):06/26/2018 10:40 am - You Delgado DO FACC at Cardiology Services Of [facility] AT [place]/17/2019 3:45 pm - Jaziel Hurst M.D. at [place] [facility] Of [facility]06/02/2018 1:45 pm - Sharon Peter MD at Pulmonology And Sleep Services [facility]
--- OUTSIDE RECORDS SUMMARY | 2018-05-20 13:36 | XMS REPORT ---
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 Manas Villeda MD Primary Care Physician Unavailable Payers Type Date Identification Numbers Payment Provider Subscriber Medicare Primary Effective: Policy Number: Medicare [place] Jocelyne Martin 2010 [id number] PayID: [id number] [address] [place] [address] Medigap Part B Policy Number: [id number] [facility] Options Herminio Martin PayID: [id number] [address] [place] [address] Problems Date Description Provider Status Onset: 2013 [...] Form Strength Qnty SIG Indications Ordering Provider Albertina Velez 04/20 Active Capsules 100mg 45caps one by Brian Vergara mouth Taylor young MD times a day as needed cough Plavix 03/16 Active Tablets 75mg 90tabs 1 by Manas Arzate mouth Christiana, every day M.D. Ranitidine HCL 12/16 Active Tablets 150mg 90tabs take one Manas A. tablet by Christiana mouth M.DKandi once daily in the evening Levothyroxine 08/29 Active Tablets 175mcg 90tabs 1 by Veronica mouth Amaris, every day [employer] Flovent HFA 05/07 Active Aerosol 110mcg/Ac 12gm 1 puff R13.10 t daily to Amaris, tongue, [employer] swallow; samples Ferrous Sulfate 01/29 Active Tablets 325(65Fe) 90tabs 1 by Manas Arzate mg mouth Darlow, every day M.D. Amiodarone HCL 01/09 Active Tablets 200mg 360tabs 1 by Veronica mouth qd Amaris, [employer] Nitroglycerin 10/28 Active Tablets 0.4mg 30tabs 1 sl as Sub needed Amaris, pain, may [employer] repeat q5 min, if no relief after 2, call 911 Hydrocodone-Acet 02/06 Active Tablets 10-325mg 240tabs 1-2 every G89.4 Zulema aminophen /2015 6 hours [place], as needed Afnp-C pain Venlafaxine HCL 04/07 Active Caps ER 37.5mg 90caps Take 1 R23.2 Veronica ER /2014 24HR Capsule Amaris, po qhs [employer] Levocetirizine 07/12 Active Tablets 5mg 90tabs take 1 Veronica Dihydrochloride tablet Amaris, every day [employer] Omeprazole 05/02 Active Capsules 40mg 180caps take [address] adi Villeda, qd Jeane Ventolin HFA Active Aerosol 108(90Bas 3units 2 puffs Veronica /0000 e) every 6 Amaris, mcg/Act hours as [employer] needed Albuterol Active Nebulizer (2.5mg/3M 180ml use four Veronica Sulfate / L) 0.083% times a Amaris, day as [employer] needed Colace Active Capsules 100mg 540caps 1 by Veronica /0000 mouth Amaris, twice a [employer] day for bowels Multivitamin Active Tablets 100tabs 1 po qd Unknown With Folic Acid supplemen t Senna S Active Tablets 8.6-50mg 180tabs 1 by Veronica /0000 mouth Amaris, twice a [employer] day Calcium/Mag Active Chewtabs 30units 1 po qd Unknown /0000 Singulair Active Tablets 10mg 90tabs take 1 Veronica /0000 tablet Amaris, every day [employer] Fluticasone Active Suspension 50mcg/Act 48units Use 2 Veronica Propionate Sprays In Amaris, Each [employer] Nostril AT Bedtime Acetaminophen Active Tablets 325mg [...] Active Soln 140mg/ml 140 mg sc Unknown / Prefill q2wk Syringe Amlodipine Active Tablets 5mg 180tabs Take 2 Manas A. Besylate /0000 Tablets Darlow, Every Day M.D. Isosorbide Active Tablets ER 60mg 180tabs Take 2 Manas A. Mononitrate ER /0000 24HR Tablets Darlow, Every Day M.D. Amitriptyline Active Tablets 10mg 90tabs Take 1 Veronica HCL /0000 Tablet AT [facility], Bedtime [facility] Pramipexole Active Tablets 1mg 180tabs Take 2 Veronica Dihydrochloride /0000 Tablets [facility], Every [employer] Night AT Bedtime Prednisone 01/16 Hx Tablets 10mg 19tabs 4 by mouth x 2 Amaris, - days, [employer] 02/04 then 3 by mouth x 2 days, then 2 by mouth x 2 days,then 1 by mouth x 1 day Nitrofurantoin 09/22 Hx Capsules 100mg 14caps 1 by Manas A. Monohyd mouth two Darlow, - times a M.D. Amoxicillin 08/29 Hx Tablets 875mg 20tabs 1 tab twice a Amaris, - day x 10 [employer] Amoxicillin 08/20 Hx Tablets 875mg 14tabs 1 tab Manas A. twice a Darlow, - day x 7 M.D. Breo Ellipta 02/28 Hx Aerosol 100-25mcg 60units 1 /Inh inhalatio Amaris, - n once [employer] 04/20 per day, /2017 rinse after use Amiodarone HCL 01/09 Hx Tablets 200mg 120tabs 2 by mouth bid Amaris, - [employer] 04/10 Zostavax 12/24 Hx Suspension [id number]/ 1units inject Rec 0.65ML subq x 1 Amaris, - [employer] 08/20 Amiodarone HCL 12/24 Hx Tablets 400mg 180tabs 1 by mouth Amaris, - twice a [employer] Atrovent HFA 10/22 Hx Aerosol 17mcg/Act 12.900g 2 puffs m qid prn Amaris, - shortness [employer] 11/27 breath, asthma symptoms Multaq 10/03 Hx Tablets 400mg 180tabs take one tablet by Amaris, - mouth [employer] 12/24 twice a day Lisinopril 10/03 Hx Tablets 20mg 1 by mouth - every day 11/27 Metoprolol 10/03 Hx Tablets 25mg 180tabs 1 by Veronica Tartrate mouth Amaris, - twice a [employer] Rosuvastatin 10/03 Hx Tablets 20mg 1 by Unknown mouth - every day 11/28 Aspirin 10/[address] 81mg 1 by mouth - every day 11/08 Hydromorphone 09/16 Hx T24a 8mg 30units 1 po G89.4 Veronica HCL daily by Amaris, - mouth, [employer] 10/22 nte pill daily Venlafaxine HCL 08/14 Hx Tablets 37.5mg 90tabs take 3 by G89.4 Veronica mouth Amaris, - daily [employer] 11/27 Cyclobenzaprine 08/14 Hx Tablets 5mg 60tabs one to G89.4 Veronica HCL two Amaris, - tablet [employer] 10/22 every hours as needed pain Chair Lift 08/14 Hx due to G89.4 Veronica significa Amaris, - nt [employer] 09/15 chronic 2017 pain and immobilit y, a chair lift is required for adl's and self cares Dilaudid 08/14 Hx Tablets 2mg 30tabs 1 by mouth Amaris, - twice [employer] 10/22 daily as needed for severe pain caution: sedation, alcohol Amoxicillin 06/07 Hx Tablets 875mg 14tabs 1 tab J01. twice a Amaris, - day x 7 [employer] 08/13 days Prednisone 06/07 Hx Tablets 5mg 78tabs 12 by J.90 mouth Amaris, - today, [employer] 08/13 decrease by 1 every day until gone Furosemide 04/10 Hx Tablets 40mg 30tabs 2 po qd G47.62 Amaris, - [employer] 04/10 Portable Oxygen 04/10 Hx small R09.02 portable Amaris, - tank for [employer] 11/27 travel away from home Simply Saline 04/10 Hx Aerosol 0.9% 1Bottle 2 sprays each Amaris, - nostril [employer] 11/27 daily Pulse Oximeter 04/10 Hx for use R0.02 with Amaris, - oxygen [employer] 11/27 therapy desired range is >90% Clonazepam 04/10 Hx Tablets 0.5mg 30tabs 1/2 to 1 G47.62 tab by Amaris, - mouth qhs [employer] 09/16 prn insomnia --caution sedation with norco Hydrocodone 02/06 Hx Solution 60-4-5mg/ G89.4 Veronica Bitartrate/Chlor 5ML Amaris, pheniramine - [employer] Maleate/Pse 02/06 Hydrocodone-Acet 02/06 Hx Tablets 7.5-325mg 240tabs 1-2 every G89.4 Veronica aminophen 6 hours Amaris, - as needed [employer] 02/06 pain nte 8 tabs per day Propranolol HCL 01/04 Hx Tablets 40mg 60tabs take one Manas A. tablet by Christiana, - mouth M.D. 01/04 twice a day Propranolol HCL 01/04 Hx Tablets 40mg 180tabs Take 1 Manas A. Tablet Darlow, - Twice M.D. 09/16 Daily Fentanyl 08/11 Hx Patches 100mcg/HR 10units place one G89.4 Veronica 72HR patch Amaris, - every 3 [employer] Hydromorphone 06/30 Hx Tablets 2mg Veronica HCL Amaris, - [employer] 06/30 Dilaudid 06/30 Hx Tablets 2mg 30tabs 1 po Veronica /2015 twice Amaris, - daily as [employer] 08/11 needed for severe pain caution: sedation, alcohol Breo Ellipta 02/27 Hx Aerosol 100-25mcg 3units 1 puff Veronica /2014 /Inh daily Amaris, - [employer] 01/02 Hydrocodone-Acet 01/11 Hx Tablets 10-325mg 120tabs 1 by G89.4 Veronica aminophen /2014 mouth Amaris, - every 6 [employer] / hours pain Hydrocodone 01/09 Hx Tablets 10-300mg 90tabs Veronica Bitartrate/Aceta Amaris, minophen - [employer] 01/11 Venlafaxine HCL 10/27 Hx Caps ER 37.5mg 30caps 1 by 782.62 Veronica ER /2014 24HR mouth Amaris, - every day [employer] 02/27 Symbicort 10/10 Hx Aerosol 160-4.5mc sample 2 puffs Manas A. g/Act once a Darlow, - day M.D. 02/27 Biaxin 10/04 Hx Tablets 500mg 20tabs take one 465.9 Veronica tablet by Amaris, - mouth [employer] 01/09 twice a day x 10 days finish all medicatio n Benzonatate 10/04 Hx Capsules 200mg 30caps 1 three 786.2 Veronica /2015 times a Amaris, - day as [employer] 01/09 needed cough Nebulizer Set Up 10/04 Hx 1units dispense 786.2 Veronica And Tubing one Amaris, - machine [employer] 01/02 for nebulizer Ipratropium 10/04 Hx Solution 0.5-2.5(3 180ml inhale 1 R05 Veronica [place]/Albutero )mg/3ML three Amaris, l Sulfate - times a [employer] 09/16 day x weeks Nabumetone 09/08 Hx Tablets 500mg 180tabs Take 1 Tablet Amaris, - Twice [employer] 08/14 Daily Cyclobenzaprine 09/05 Hx Tablets 5mg 180tabs one to M79.1 Veronica two Amaris, - tablet [employer] 01/02 night at bedtime as needed Amoxicillin 09/05 Hx Tablets 500mg 21tabs 1 tab by 465.9 mouth Amaris, - three [employer] 10/04 times day x 7 days samples Oxycodone-Acetam 08/08 Hx Tablets 10-325mg 200tabs 1-2 by mouth Amaris, - every 4 [employer] 01/09 hours needed Prednisone 06/13 Hx Tablets 5mg 30tabs take 2 by 724.5 mouth Amaris, - twice a [employer] 01/09 day x days, then take 1 by mouth three times a day x 3 days, then take 1 by mouth twice a day x 3 d Nabumetone 05/02 Hx Tablets 500mg 60tabs 1 po bid Amaris, - [employer] 09/05 Oxycodone/Acetam 05/02 Hx Tablets 10-325mg 50tabs 1-2 po Amaris, inophen q4hrs prn Veronica, - INSTRUMENT ENGINEER-F 08/08 Oxycodone/Acetam 13 Hx Tablets 10-325mg 50tabs 1-2 po Amaris, inophen q4hrs prn Veronica, - [employer]STRUMENT ENGINEER-F 07/04 Oxycodone/Acetam 05/02 Hx Tablets 10-325mg 50tabs 1-2 po Amaris, inophen q4hrs prn Veronica, - INSTRUMENT ENGINEER-F 07/04 Oxycodone-Acetam 05/02 Hx Tablets 10-325mg 50tabs 1-2 po Veronica ino q4hrs prn Amaris, - [employer] 07/04 Ondansetron HCL 05/02 Hx Tablets 8mg 30tabs 1 every 8 787.02 Veronica hours prn Amaris, - nausea [employer] 05/02 Ondansetron HCL 05/02 Hx Tablets 8mg 50tabs 1 by R11.0 mouth Amaris, - every 8 [employer] 11/27 hours needed nausea Venlafaxine HCL 05/02 Hx Tablets 50mg 90tabs 1/2 tab 782.62 by mouth Amaris, - daily [employer] 05/02 Venlafaxine HCL 05/02 Hx Tablets ER 37.5mg 30tabs 1 by 782.62 Karlee ER 24HR mouth Gen, - daily [employer] 10/27 Famotidine 04/14 Hx Tablets 40mg 60tabs 1 by 530.81 Manas A. mouth Christiana, - twice a M.D. Nizatidine 04/05 Hx Capsules 150mg 180caps take one 530.81 Manas capsule Darmax, - by mouth M.D. 04/14 twice day Clonidine HCL 02/28 Hx Tablets 0.1mg 90tabs take one tablet by Christiana, - mouth at M.D. 01/09 bedtime Sucralfate 02/14 Hx Tablets 1gm 270tabs 1 by 782.62 Manas A mouth Darmax, - three M.D. 05/02 times day Labs 01/06 Hx 24-hr 782.62 Manas A urinary Darmax, - 5-hiaa M.D. 02/14 Urine serotonin Serum chromogra jessie A, b, C Vitamin B-12 01/06 Hx Tablets 1000mcg 1 po qd Manas AKandi /2013 Samia Liriano M.D. 01/06 Oxycodone/Acetam Hx Tablets 10-325mg 50tabs 1-2 po Unknown inophen /0000 q4hrs prn - 05/02 Omeprazole Hx Capsules 40mg 180caps 1 po bid 530.81 Manas A. /0000 Samia Lance M.D. 04/05 Nabumetone Hx Tablets 500mg 60tabs 1 po bid Manas A. /0000 Samia Villeda M.D. 04/05 Advair Diskus Hx Aerosol 500-50mcg 60units inhale 1 Unknown /0000 /Dose dose by - mouth 10/10 twice a day rinse mouth after use Allopurinol Hx Tablets 300mg 90tabs 1 by Manas A. /0000 mouth Christiana, - every day M.DKandi 01/09 B Complex Hx Tablets Unknown /0000 - 02/27 Vitamin B-12 Hx Tablets 500mcg [...] Unknown /0000 prn - 06/30 Advair Diskus Hx Aerosol 500-50mcg inhale Unknown /0000 /Dose 1-2 pufsf - by mouth 02/04 two times daily or use Breo instead but Not both Torsemide 00 Hx Tablets 20mg 90tabs Take 2 Veronica /0000 Tablets Amaris, - Every [employer] 11/27 Day, Alternati ng With Furosemid e Klor-Con M20 Hx Tablets ER 20Meq 90tabs Take 1 Brian J. /0000 Tablet Breiman, - Every Day M.D. 11/27 Furosemide Hx Tablets 80mg 45tabs Take 1 Veronica /0000 Tablet Amaris, - Every [employer] 09/16 Day Alternati ng With Torsemide Vitamin D Hx Capsules 1000Unit 2 by Unknown (Cholecalciferol /0000 mouth ) - every day 11/27 Vitamin B Hx Tablets 1 by Unknown Complex /0000 mouth - every day 11/27 Ranitidine HCL Hx Capsules 150mg take 1 Unknown / capsule - by mouth 11/27 twice day Isosorbide Hx Tablets ER 30mg 90tabs 1 by Manas A. Mononitrate ER /0000 24HR mouth bid Darmax, - M.D. 08/29 Sucralfate Hx Tablets 1gm 1 prior Unknown /0000 to eating - three 07/25 daily Ferrous Sulfate Hx Tablets 325(65Fe) 90tabs 1 by Veronica /0000 mg mouth Amaris, - every day [employer] 08/20 Amitriptyline Hx Tablets 1mg 1 by [...] by Unknown /0000 mouth - three 04/10 day Metoprolol Hx Tablets ER 25mg 90tabs 1 by Manas A. Succinate ER /0000 24HR mouth Darlow, - every day M.D. 07/09 Torsemide Hx Tablets 20mg take one Unknown /0000 tablet by - mouth 07/09 daily needed Primidone Hx Tablets 50mg 90tabs take 3 Manas A. /0000 tablets Darlow, - every M.D. 02/04 night at bedtime Levothyroxine Hx Tablets 137mcg 90tabs Take 1 Veronica Sodium /0000 Tablet Amaris, - Every Day [employer] 08/29 Ranexa Hx Tablets ER 500mg 1 po bid Unknown /0000 12HR - 03/16 Plavix 00/00 Hx Tablets 75mg 1 by Unknown /0000 mouth - every day 02/04 Brilinta Hx Tablets 90mg 1 by Unknown /0000 mouth - twice a Fluticasone Hx Aerosol 500-50 1 puff Unknown Propionate/Salme /0000 daily terol - 03/16 Immunizations CPT Code Status Date Vaccine Lot # [id number] Given 05/15/2018 High-Dose, Influenza Virus Vacccine-fluzone 65 and [id number] older 73682 Given 04/10/2017 High-Dose, Influenza Virus Vacccine-fluzone 65 and [id number] older 41477 Given 12/24/2016 Tdap Tetanus, W Pertussis [id number] 06124 Given 12/24/2016 Pneumococcal Conjugate Vacc-13 [id number] 90263 Given 04/10/2016 Influenza Vac, Quadrivalent, Slit Virus, Im [id number] 69903 Given 05/08/2015 Pneumococcal Immunization [id number] 72331 Given 05/08/2015 Influenza Vac, Quadrivalent, Slit Virus, Im [id number] Vital Signs Date Vital Result Comment 05/15/2018 BP Systolic 132 mmHg BP Diastolic [...] Range Note Laboratory test finding 05/15/2018 TSH <pending> 0.5-5.0 Ferritin <pending> 6-115 Urinalysis Profile 04/12/2018 Urine Color Straw Urine Appearance Clear Urine Specific [place] 1.010 1.010-1.030 Urine pH 5 5-9 Urine Urobilinogen Negative Negative Urine Ketones Negative Negative Urine Protein 1+(30 mg/dL) Negative Urine Leukocytes Negative Negative Urine Blood Negative Negative Urine Nitrite Negative Negative Urine Bilirubin Negative Negative Urine Glucose Negative Negative Laboratory test finding 04/12/2018 Procalcitonin 77.5 ng/mL High <0.6 1 C Reactive Protein 269.22 mg/L High <8.01 [...] ng/mL <0.04 Lactic Acid 1.8 mmol/L 0.5-2.0 2 Comp Metabolic Panel 04/12/2018 Sodium 134 mmol/L [...] Egfr Non- 26.0 >60 Egfr 31.5 >60 3 Laboratory test finding 04/12/2018 Partial Thrombo Time 30.3 seconds 26.0 -36.3 PTT B-Type Natriuretic Peptide BNP 579 pg/mL High 4 Inr/Protime 04/12/2018 Inr 1.11 High 0.77-1.02 CBC [...] Red Blood Cells % 0.1 CBC Electronic Fma 03/16/2018 WBC 6.1 x10^3/UL 4.0-10.0 RBC 3.25 x10^6/UL Low 3.93-6.00 HGB 10.4 g/dL Low 12.0-17.0 5 HCT 31 % Low 35-50 6 MCV 95.1 fL High 80.0-95.0 MCH 32.0 pg 25.6-32.2 MCHC 33.7 g/dL 32.2-36.0 RDW-CV 15.6 % High 11.6-14.4 PLT 168 x10^3/UL 163-400 MPV 8.9 fL Low 9.4-12.4 Anna# 3.91 x10^3/UL 1.56-6.13 Lymph# 1.56 x10^3/UL 1.18-3.74 Fannin# 0.43 x10^3/UL 0.24-0.82 Eos # 0.1 x10^3/UL 0.0-0.5 Baso # 0.03 x10^3/UL 0.01-0.08 Anna% 64.2 % 34.0-70.0 Lymph % 25.7 % 20.0-52.0 Fannin% 7.1 % 5.0-12.0 Eos% 2.3 % 0.7-7.0 [...] Egfr Non- 30.5 >60 Egfr 36.9 >60 7 Potassium 5.2 mmol/L High 3.5-5.0 Anion Gap [...] Packed Cells SEE RESULTS BELO <SEE NOTE> 8 Antibody Id Autocontrol 0 Type & Screen [...] Egfr Non- 43.9 >60 Egfr 53.1 >60 9 Laboratory test finding 01/31/2018 Lactic Acid 0.9 mmol/L 0.5-2.0 10 CBC Auto Diff 01/31/2018 White Blood Count [...] Egfr Non- 36.1 >60 Egfr 43.6 >60 11 Laboratory test finding 01/21/2018 Magnesium 2.1 mg/dL [...] Egfr Non- 32.6 >60 Egfr 39.4 >60 12 Potassium 5.2 mmol/L High 3.5-5.0 Anion Gap [...] 09/22/2017 Urine Culture And SEE RESULT BELOW 13 Sensitivities Ua - Micro (Fma) 09/22/2017 Appearance [...] ng/mL 11-307 Vitamin B12 550 pg/mL 180-914 14 Erythropoietin 9.3 mIU/mL 2.6 - 18.5 15 CBC Auto Diff 10/08/2016 White Blood Count [...] test 10/08/2016 B-Type Natriuretic 610 pg/mL High 16 finding Peptide BNP Inr/Protime 10/08/2016 Inr 1.00 0.89-1.11 Laboratory test 10/08/2016 Partial Thrombo Time 21.3 seconds Low 26.0- 36.3 finding PTT D Dimer Quantitative 649 ng/mL High Less Than 230 17 Lactic Acid 1.2 mmol/L 0.5-2.0 18 Comp Metabolic Panel 10/08/2016 Sodium 134 mmol/L [...] Egfr Non- 42.5 >60 Egfr 54.6 >60 19 Potassium 4.9 mmol/L 3.5-5.0 Anion Gap 6 mmol/L 2-11 Ast 47 U/L High 13-39 Laboratory test finding 10/08/2016 Magnesium 1.5 mg/dL Low 1.9-2.7 Lipase 21 U/L 11.0-82.0 Creatine Kinase(CK) 473 U/L High 10-223 C Reactive Protein 38.59 mg/L High < 5.00 20 Troponin I 0.03 ng/mL <0.04 21 CKMB 10/08/2016 CKMB ng/mL 7.4 ng/mL High [...] finding 10/06/2016 Lactic Acid 0.6 mmol/L 0.5-2.0 22 B-Type Natriuretic Peptide BNP 749 pg/mL High 23 Comp Metabolic Panel 10/06/2016 Sodium 135 mmol/L [...] Egfr Non- 44.5 >60 Egfr 57.3 >60 24 Laboratory test finding 10/06/2016 Magnesium 1.7 mg/dL Low 1.9-2.7 Lipase 20 U/L 11.0-82.0 Creatine Kinase(CK) 74 U/L 10-223 C Reactive Protein 83.49 mg/L High < 5.00 25 Troponin I 0.02 ng/mL <0.04 26 CKMB 10/06/2016 CKMB ng/mL 2.4 ng/mL 0.6-6.3 Laboratory test finding 10/06/2016 TSH (Thyroid Stim Horm) 2.62 mcIU/mL 0.34-5.60 Urinalysis Profile 10/06/2016 Urine Color Yellow Urine Appearance Clear Urine Specific [place] 1.015 1.010-1.030 Urine pH 6.0 5-9 Urine [...] 09/24/2016 Lactic Acid 2.2 mmol/L High 0.5-2.0 27 Comp Metabolic Panel 09/24/2016 Sodium 136 mmol/L [...] Egfr Non- 47.3 >60 Egfr 60.8 >60 28 Potassium TNP mmol/L 3.5-5.0 Anion Gap TNP mmol/L 2-11 Ast TNP U/L 13-39 Laboratory test finding 09/24/2016 Troponin I 0.05 ng/mL High <0.04 29 Magnesium TNP mg/dL 1.9-2.7 TSH (Thyroid Stim Horm) 0.54 mcIU/mL 0.34-5.60 D Dimer Quantitative 257 ng/mL High Less Than 230 30 Toxassure(R) Select 13 (MW) 08/14/2016 Report Summary FINAL 31 PDF . Laboratory test finding 08/14/2016 PDF [id number] SEE IMAGE Ua - Non Micro (Fma) [...] Egfr Non- 41.3 >60 Egfr 53.1 >60 32 Comprehensive Metabolic Prof 03/27/2016 Sodium 139 mEq/L 134-149 Potassium 5.0 mEq/L 3.6-5.5 Chloride 103 mEq/L 94-112 Carbon Dioxide 24 mEq/L 21-32 Glucose 104 mg/dL 70-105 BUN 32 mg/dL High 6-26 33 Creatinine 1.1 mg/dL 0.6-1.4 BUN/Creat Ratio 29.1 [...] Low 3.90-5.70 HGB 10.1 g/dL Low 12.1-17.2 34 HCT 29 % Low 36-50 MCV 96.0 fL 82.2-97.4 MCH 33.8 pg High 27.6-33.3 MCHC 35.3 g/dL 33.0-35.5 RDW 13.4 % 11.6-13.7 PLT 229 x10^3/UL 150-400 MPV 7.0 fL Low 7.4-10.4 Gran # 5.3 x10^3/UL 1.5-7.2 Lymph# 1.6 x10^3/UL 0.7-4.9 Fannin# 0.2 x10^3/UL 0.1-0.9 Gran % 72.4 % 42.2-75.2 Lymph % 23.7 % 20.5-51.1 Fannin% 3.9 % 1.7-9.3 Laboratory test finding 03/27/2016 Free T4 1.41 ng/dL 0.75-1.54 Laboratory test finding 03/27/2016 Brain Natural Peptide 416 pg/mL High < 100 Laboratory test finding 02/07/2016 TSH 0.68 mIU/L 0.50-6.00 Free T4 1.83 ng/dL High 0.75-1.54 35 Free T3 2.31 pg/mL 2.00-4.90 Magnesium, Serum 2.1 mEq/L 1.2-2.1 Laboratory test finding 02/07/2016 Brain Natural 475 pg/mL High <100 Peptide Laboratory test finding 02/07/2016 C-Reactive Protein, 6.54 mg/L High 0.00 -3.00 36, 37 Cardiac Basic Metabolic Profile 01/03/2016 Sodium 139 mEq/L 134-149 Potassium 4.2 mEq/L 3.6-5.5 Chloride 102 mEq/L 94-112 Carbon Dioxide 27 mEq/L 21-32 Glucose 118 mg/dL High 70-105 38 BUN 32 mg/dL High 6-26 39 Creatinine 1.2 mg/dL 0.6-1.4 BUN/Creat Ratio 26.7 [...] Egfr Non- 43.1 >60 Egfr 55.4 >60 40 Lipid Profile 10/10/2014 Cholesterol 263 mg/dL High 120-200 Triglycerides 144 mg/dL 30-200 HDL Cholesterol 72 mg/dL 30-85 LDL (Calculated) 162 CALC High 0-129 VLDL Cholesterol 29 mg/dL 0-50 HDL Risk Factor 3.7 CALC 0.0-4.4 Comprehensive Metabolic Prof 10/10/2014 Sodium 138 mEq/L 134-149 Potassium 5.2 mEq/L 3.6-5.5 Chloride 103 mEq/L 94-112 Carbon Dioxide 27 mEq/L 21-32 Glucose 200 mg/dL High 70-105 41 BUN 20 mg/dL 6-26 Creatinine 0.9 mg/dL [...] 09/26/2014 Jak2 Mutation Analysis Blood See Comment 42 BCR/Abl Trans 9:22 Fish 09/26/2014 BCR/abl (Fish) Specimen Blood BCR/abl (Fish) Specimen Id [id number] BCR/abl (Fish) Order Date 27 Sep 2014 12:1 <SEE NOTE> 43 BCR/abl (Fish) Referral Reason anemia BCR/abl (Fish) Method See Comment 44 BCR/abl Results See Comment 45 BCR/abl (Fish) Interpretation See Comment 46 BCR/abl (Fish) Hydrant Setter See Comment 47 BCR/abl (Fish) Report Date 06 Oct 2014 08:2 <SEE NOTE> 48 Laboratory test finding 09/26/2014 [facility] Lab Test see scanned CBC Auto Diff [...] 0.75-1.54 Laboratory test finding 07/04/2014 Hemoglobin A1c (a/[facility],CX) 5.3 % 4.1- 5.7 Brain Natural Peptide 145 pg/mL High <100 Laboratory test finding 06/13/2014 Vitamin B-12 726 pg/mL 230-1050 Laboratory test finding 06/13/2014 Antinuclear Abs, Ifa Negative 49 Rheumatoid Arth Factor 9.4 IU/mL 0.0-13.9 Homocysteine 15.4 umol/L High 0.0-15.0 Lyme Igg/M W/[facility] 06/13/2014 Lyme IgG/IgM Ab <0.91 ISR 0.00-0.90 50 Lyme Disease Ab, Quant, IgM <0.80 index 0.00-0.79 51 Methylmalonic Acid 06/13/2014 Methylmalonic Acid, 271 nmol/L 0-378 52 Serum Laboratory test finding 06/13/2014 Sed Rate 43mm (a/[facility]) Complete Blood Count 06/06/2014 WBC 6.1 x10^3/UL 3.6-9.6 RBC 3.06 x10^6/UL Low 3.90-5.70 53 HGB 10.4 g/dL Low 12.1-17.2 54 HCT 29 % Low 36-50 55 MCV 95.0 fL 82.2-97.4 MCH 34.0 pg High 27.6-33.3 56 MCHC 35.6 g/dL High 33.0-35.5 57 RDW 12.6 % 11.6-13.7 PLT 288 x10^3/UL 150-400 MPV 7.0 fL Low 7.4-10.4 Gran # 4.3 x10^3/UL 1.5-7.2 Lymph# 1.6 x10^3/UL 0.7-4.9 Fannin# 0.2 x10^3/UL 0.1-0.9 Gran % 69.6 % 42.2-75.2 Lymph % 26.7 % 20.5-51.1 Fannin% 3.7 % 1.7-9.3 Laboratory test finding 06/06/2014 Magnesium, Serum 1.6 mEq/L 1.2-2.1 TSH 3.13 mIU/L 0.50-6.00 Free T3 1.64 pg/mL Low 2.00-4.90 58 Free T4 1.69 ng/dL High 0.75-1.54 59 Comprehensive Metabolic Prof 06/06/2014 Sodium 135 mEq/L 134-149 Potassium 4.5 mEq/L 3.6-5.5 Chloride 97 mEq/L 94-112 Carbon Dioxide 24 mEq/L 21-32 Glucose 144 mg/dL High 70-105 60 BUN 18 mg/dL 6-26 Creatinine 1.0 mg/dL [...] Rate ([facility]ma/[facility]) 28mm Laboratory test finding 04/06/2014 [facility] Test see scannned Laboratory test finding 01/20/2014 [facility] Test 5-hiaa qt 24hr Uric Acid 24HR Urine 12/15/2013 Urine Random Uric Acid 24.0 mg/dL Urine Uric Acid/24HR 144.0 mg/24Hr Low 250-750 Urine Collection Time 24 Urine Total Volume 600 mL Laboratory test finding 12/09/2013 [facility] Test bun/creat Laboratory test finding 2013 TSH 1.27 mIU/L 0.50-6.00 Uric Acid 6.5 mg/dL 2.5-9.2 1 Interpretive information available on [employer] [facility] Test Catalog at [email or web address] SPECIAL SURGERY Severe Sepsis and Septic Shock Management Bundle Measure requires all lactic acids initially measuring >2.0 mmol/L be repeated. 3 Because ethnic data is not always readily [...] 15-29 5 Kidney failure <15 (or dialysis) 4 >100 to <200 pg/mL: likely compensated congestive heart failure (CHF) 200 to 400 pg/mL: likely moderate CHF >400 pg/mL: likely moderate to severe CHF 5 RESULTS VERIFIED BY REPEAT ANALYSIS 6 RESULTS VERIFIED BY REPEAT ANALYSIS 7 Because ethnic data is not always [...] 15-29 5 Kidney failure <15 (or dialysis) 8 SEE RESULTS BELOW [id number] ON PC TRANSFUSED 01/31/18 1939 [id number] BN PC TRANSFUSED 02/01/18 1047 [id number] BN PC TRANSFUSED 01/31/18 1240 9 Because ethnic data is not always [...] 5 Kidney failure <15 (or dialysis) 10 [facility] Severe Sepsis and Septic Shock Management Bundle Measure requires all lactic acids initially measuring >2.0 mmol/L be repeated. 11 Because ethnic data is not always [...] 5 Kidney failure <15 (or dialysis) 12 Because ethnic data is not always readily [...] 15-29 5 Kidney failure <15 (or dialysis) 13 SEE RESULT BELOW Name: JOCELYNE MARTIN : [address]: Manas Villeda MD Acct: [id number] Unit: [id number] AGE: 76 Location: [facility] Re09/22/17 SEX: F Status: REG REF SPEC: [id number] OSCAR: 09/22/17-1614 [facility] DR: Manas Villeda MD REQ: [id number] RECD: 09/22/17 STATUS: COMP _ SOURCE: URINE SPDESC: ORDERED: Urine Culture COMMENTS: [id number] kemp urine top Procedure Result Reported Site Urine Culture Final 09/24/17- 723 ML Organism 1 KLEBSIELLA PNEUMONIAE Sheldon Count >100,000 (Many) CFU/ML 1. KLEBSIELLA PNEUMONIAE [...] . END OF REPORT DEPARTMENT OF PATHOLOGY, [address] [place] [address] Ramos Durand M.D. Director [facility] # [id number] Normal Range 180 to 914 Indeterminate Range 145 to 180 Deficient Range <145 15 Test Performed by: [facility] [address] [address] 16 >100 to <200 pg/mL: likely compensated congestive heart failure (CHF) 200 to 400 pg/mL: likely moderate CHF >400 pg/mL: likely moderate to severe CHF 17 Please note: The following may produce a false positive D Dimer test: - Rheumatoid factor greater than 60 IU/ml - Plasma hemoglobin greater than 0.05 gm/dl - Bilirubin greater than 50 mg/dl - Lipids greater than 1000 mg/dl - FDP greater than 20 ug/ml 18 [facility] Severe Sepsis and Septic Shock Management Bundle Measure requires all lactic acids initially measuring >2.0 mmol/L be repeated. 19 Because ethnic data is not always readily [...] 15-29 5 Kidney failure <15 (or dialysis) 20 Acute inflammation: >10.00 21 99th percentile=0.04 ng/mL Troponin results at [facility] and [facility] are not interchangeable. 22 [facility] Severe Sepsis and Septic Shock Management Bundle Measure requires all lactic acids initially measuring >2.0 mmol/L be repeated. 23 >100 to <200 pg/mL: likely compensated congestive heart failure (CHF) 200 to 400 pg/mL: likely moderate CHF >400 pg/mL: likely moderate to severe CHF 24 Because ethnic data is not always readily [...] 15-29 5 Kidney failure <15 (or dialysis) 25 Acute inflammation: >10.00 26 99th percentile=0.04 ng/mL Troponin results at [facility] and [facility] are not interchangeable. 27 Critical Result LACT:2.2 Called to [id number] at: 22:40:14 by:[id number] Read back by:[id number] [facility] Severe Sepsis and Septic Shock Management Bundle Measure requires all lactic acids initially measuring >2.0 mmol/L be repeated. 28 Because ethnic data is not always readily [...] 15-29 5 Kidney failure <15 (or dialysis) 29 Result TnIDx:0.05 Called to [id number] at: 22:42:43 by:[id number] Read back by: [id number] 99th percentile=0.04 ng/mL Troponin results at [facility] and [facility] are not interchangeable. 30 Please note: The following may produce a false positive D Dimer test: - Rheumatoid factor greater than 60 IU/ml - Plasma hemoglobin greater than 0.05 gm/dl - Bilirubin greater than 50 mg/dl - Lipids greater than 1000 mg/dl - FDP greater than 20 ug/ml 31 TOXASSURE SELECT 13 (MW) Test Result Flag [...] Venlafaxine For clinical consultation, please call . 32 Because ethnic data is not always readily [...] 15-29 5 Kidney failure <15 (or dialysis) 33 consistent w/ previous results 34 consistent w/ previous results 35 RESULTS VERIFIED BY REPEAT ANALYSIS 36 1 sst 37 Relative Risk for Future Cardiovascular Event Low <1.00 Average 1.00 - 3.00 High >3.00 38 NON-FASTING 39 consistent w/ previous results 40 Because ethnic data is not always readily [...] 15-29 5 Kidney failure <15 (or dialysis) 41 RESULTS VERIFIED BY REPEAT ANALYSIS 42 Peripheral blood, JAK2 V617F mutation analysis: Negative [...] for a definitive diagnosis. Signing Pathologist: Karina San M.D. ADDITIONAL INFORMATION Method summary - JAK2 V617F analysis: Quantitative, allele-specific polymerase chain reaction (PCR) assay was performed using extracted genomic DNA to evaluate for the point mutation causing JAK2 V617F. The analytic sensitivity of this assay has been determined at 0.01% (see [facility] Interpretive Handbook for method details). Laboratory developed test. PDF Report available at: [email or web address] Test Performed by: [address] [address] [employer] Systems: Foreign Bee II, M.D., Ph.D. 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 45 Abnormality Result %Cutoff BCR/ABL1 fusion Normal <0.6 NOMENCLATURE nuc gerry(ABL1,BCR)x2[500] Of 500 nuclei, 0% had fusion of BCR and ABL1. 46 The result is within normal limits for the BCR and ABL1 gene regions. DISCLAIMER: Analyte Specific Reagent (ASR). This test was developed and its performance characteristics determined by [facility]. It has not been cleared or approved by the U.S. Food and Drug Administration. This FISH test does not rule out other chromosome abnormalities. 47 RESULT: Brian Dietrich MD, PhD 48 06 Oct 2014 08:23 Test Performed by: [address] [address] [employer]: Foreign Bee II, M.D., Ph.D. 49 Negative <1:80 Borderline 1:80 Positive >1:80 50 Negative <0.91 Equivocal 0.91 - 1.09 Positive >1.09 Please note reference interval change 51 Negative <0.80 Equivocal 0.80 - 1.19 Positive >1.19 IgM levels may peak at 3-6 weeks post infection, then gradually decline. 52 Please note reference interval change 53 RESULTS VERIFIED BY REPEAT ANALYSIS 54 RESULTS VERIFIED BY REPEAT ANALYSIS 55 RESULTS VERIFIED BY REPEAT ANALYSIS 56 RESULTS VERIFIED BY REPEAT ANALYSIS 57 RESULTS VERIFIED BY REPEAT ANALYSIS 58 RESULTS VERIFIED BY REPEAT ANALYSIS 59 RESULTS VERIFIED BY REPEAT ANALYSIS 60 RESULTS VERIFIED BY REPEAT ANALYSIS Procedures Date CPT Code Description Status 04/20/2018 58114 Pulse Oximetry Completed 01/20/2017 Mammogram Completed 10/22/2016 01613 Pulse Oximetry Completed 10/08/2016 61643 Pulse Oximetry Completed 06/07/2016 12373 Pulse Oximetry Completed 04/26/2016 37523 Pulse Oximetry Completed 03/27/2016 57442 Pulse Oximetry Completed 02/07/2016 08373 Pulse Oximetry Completed 07/27/2015 Mammogram Completed 06/30/2015 99537 Pulse Oximetry Completed 10/10/2014 83964 Pulse Oximetry Completed 10/04/2014 12303 Nebulizer Treatment Completed 05/20/2014 Mammogram Completed 09/18/2013 Colonoscopy Completed Encounters Type Date Location Provider CPT E/M Dx Office Visit 04/20/2018 4:30p [facility] Brian Vazquez, [address] J18.1 J44.9 G89.4 Office Visit 03/16/2018 2:30p [facility] Manas Villeda M.D. 68536 Z01.818 H25.13 I25.119 E03.9 I10 N18.4 K21.9 J45.998 S35.511S D50.0 G25.81 I48.0 G89.4 Office Visit 02/05/2018 11:00a [facility] Veronica Jarrettbhart, [facility] [address] R07.89 I20.0 R51 G89.4 M79.604 Office Visit 01/16/2018 11:00a [facility] Veronica Jarrettcarmen [facility] [address] M25.562 M53.3 R07.89 I20.0 R51 G89.4 Office Visit 09/24/2017 4:00p [facility] Veronica Jarrettcarmen [facility] [address] R21 W01.0xxA R07.89 R06.02 G89.4 K59.01 N39.42 G47.00 R60.0 Office Visit 08/29/2017 10:00a [facility] Veronica Jarrettcarmen [facility] [address] J01.90 R05 K21.9 G89.4 R06.02 M15.0 I20.9 E03.9 Office Visit 06/10/2017 3:30p [facility] Office Veronica Glez, [facility] [address] M79.672 R29.6 R53.1 R51 Office Visit 05/07/2017 4:15p [facility] Veronica Glez, [facility] [address] R51 D64.9 R53.1 W17.89xA J44.9 K21.9 R13.10 G89.4 Office Visit 04/10/2017 2:30p Main Office Veronica Glez, [facility] [address] Z23 M79.652 M79.651 N95.0 G89.4 D64.9 Office Visit 02/28/2017 2:00p [facility] Veronica Glez, [facility] [address] N95.0 R51 R06.02 G89.4 D64.9 Office Visit 12/24/2016 2:00p [facility] Veronica Glez, [facility] [address] Z23 R51 R60.0 I48.91 G89.4 R06.02 K21.9 Office Visit 11/28/2016 3:45p Main Office Veronica Glez, [facility] [address] R51 I48.91 K25.7 G89.4 M79.644 Office Visit 11/08/2016 1:00p [facility] Veronica Glez, [facility] [address] K25.7 I48.91 R51 M79.644 M15.0 D64.9 G89.4 Office Visit 10/22/2016 4:00p [facility] Veronica Glez, [facility] [address] R51 I48.91 R05 R06.02 R09.02 R11.10 Office Visit 10/08/2016 3:00p [facility] Veronica Glez, [facility] [address] R51 I48.91 R05 G89.4 M15.0 R06.02 Office Visit 09/16/2016 3:00p [facility] Veronica Glez, [facility] [address] R51 G89.4 M15.0 D64.9 Office Visit 08/14/2016 3:30p [facility] Veronica Glez, [facility] [address] R51 M15.0 R09.02 G89.4 R31.9 D64.9 Office Visit 06/07/2016 11:00a [facility] Veronica Glez, [facility] [address] J01.90 R51 R53.82 M79.7 M15.0 Office Visit 04/26/2016 3:00p [facility] Veronica Glez, [facility] [address] R51 R53.82 M79.7 M15.0 R09.02 D50.9 Office Visit 04/10/2016 2:00p [facility] Veronica Glez, [facility] [address] R53.82 M79.7 M15.0 R09.02 D50.9 J44.9 G47.62 Z23 Office Visit 03/27/2016 3:20p [facility] Manas Villeda M.D. 25956 R51 R53.82 E03.9 Office Visit 02/07/2016 3:30p [facility] Veronica Glez, [facility] [address] I10 E03.9 M79.7 K21.9 G25.81 M15.0 G89.4 R09.02 Office Visit 01/03/2016 3:40p [facility] Manas Villeda M.D. 85271 I10 E03.9 M79.7 K21.9 G25.81 M15.0 J45.998 G89.4 R51 Office Visit 09/06/2015 4:30p [facility] Veronica Glez, [facility] [address] G89.4 M79.1 M15.0 Office Visit 08/11/2015 1:00p [facility] Veronica Glez, [facility] [address] G89.4 M79.1 M15.0 Office Visit 06/30/2015 2:00p [facility] Veronica Glez, [facility] [address] M15.0 D53.9 M79.1 G89.4 Office Visit 02/27/2015 2:30p [facility] Veornica Glez, [facility] [address] 715.09 281.9 729.1 782.3 338.4 Office Visit 01/09/2015 10:30a [facility] Veronica Glez, [facility] [address] 274.00 715.09 281.9 729.1 244.9 724.5 Office Visit 11/29/2014 11:45a [facility] Office Veronica Glez, [facility] [address] 333.94 715.00 724.5 285.9 786.2 Office Visit 10/10/2014 11:20a [facility] Manas Villeda M.D. 20019 401.9 493.90 244.9 729.1 530.81 333.94 715.00 285.9 786.50 Office Visit 10/04/2014 2:00p [facility] Veronica Glez, [facility] [address] 465.9 786.2 Office Visit 09/05/2014 3:00p [facility] Veronica Glez, [facility] [address] 729.82 465.9 Office Visit 08/08/2014 3:00p [facility] Veronica Glez, [facility] [address] 724.5 281.9 729.1 719.47 244.9 Office Visit 07/04/2014 1:15p [facility] Veronica Glez, [facility] [address] 790.21 724.5 281.9 782.3 Office Visit 06/13/2014 4:00p [facility] Veronica Glez, [facility] [address] 729.1 274.00 715.09 281.9 Office Visit 06/06/2014 3:00p [facility] Veronica Glez, [facility] [address] 782.62 530.81 729.1 Office Visit 05/02/2014 1:15p [facility] Veronica Glez, [facility] 19197 782.62 530.81 787.02 Office Visit 02/14/2014 2:20p [facility] Manas Villeda M.D. 97373 782.62 Office Visit 01/06/2014 7:00p Main Office Manas Villeda M.D. 54405 782.62 Office Visit 2013 8:30a [facility] Manas Villeda M.D. 16156 244.9 274.00 333.94 493.90 782.3 715.09 729.1 530.81 Plan of Care 05/15/2018 - Veronica Glez, FNPD64.9 Anemia, sanloibinbnR15 Encounter for rkbfcfflkgchC75.83 Other tnfgivcB73.9 Chronic obstructive pulmonary disease, dfwgoqvxkjmU07.4 Chronic kidney disease, stage 4 (severe)I20.0 Unstable xtpbgiG00.561 Pain in right kneeM25.562 Pain in left kneeAllComments:~B_~U_ Medication Management~b_~u_ Patient Understands medications he 's [...]
--- OUTSIDE RECORDS SUMMARY | 2018-05-20 13:36 | XMS REPORT | Continuity of Care Document ---
:1940 External Reference #:[id number] Author Name Lashawn Post O.D. Address [address] [place] [address] Care Team Providers Name Role Phone Manas Villeda M.D. Primary Care Physician Unavailable Payers Type Date Identification Numbers Payment Provider Subscriber Policy Number: [id number] Medicare - [facility] Roxi Martin PayID: [id number] [address] [place] [address] Policy Number: [id number] [facility] Roxi Martin PayID: [id number] [address] [place] [address] Advance Directives Description No Information Available Problems [...] Use Denies Drug Use Smoking Status Reviewed: 05/01/18 Patient has never smoked Allergies, Adverse Reactions, Alerts Date Description Reaction Status Severity Comments 09/19/2014 Naproxen Active 09/19/2014 Lipitor Active wead legs 09/19/2014 Statins Active Moderate weak legs 09/19/2014 Aspirin Active upset stomache Medications Medication Date Status Form Strength Qnty SIG Indications Ordering Provider Albuterol Sulfate Active Nebulizer 1.25mg/3M Unknown /0000 L Amiodarone HCL Active Tablets 200mg Delgado, / You D.O. Amlodipine Active Tablets 10mg Delgado, [...] D.O. Ranexa Active Tablets ER 500mg Delgado, 0000 12HR You D.O. Ranitidine HCL Active Capsules 150mg Rocael, /0000 Benny Ching Montelukast Active Tablets 10mg Amaris, Sodium Veronica F.N.P Torsemide Active Tablets 20mg Unknown /0000 Hydrocodone-Aceta Active Tablets 10-325mg Amaris, minophen / Veronica F.N.P Metoprolol Active Tablets ER 50mg Stallone, Succinate ER /0000 24HR Lennox Ching Aspirin Active Tablets DR 81mg Unknown / Calcium Magnesium Active Tablets 300-300mg Unknown 750 0000 Caltrate 600+D Active Tablets 600-800mg Unknown -Unit Colace Active Capsules 100mg 2 by Unknown mouth twice a day Ferrous Sulfate Active Tablets 325mg Unknown Flovent HFA Active Aerosol 110mcg/Ac Unknown t Fluticasone Active Suspension 50mcg/Act Unknown Propionate 0000 Levocetirizine Active Tablets 5mg Unknown Dihydrochloride Multi-Vitamin Active Tablets Unknown Daily Pramipexole Active Tablets 1mg Unknown Dihydrochloride Proventil HFA Active Aerosol 108(90Bas Unknown /0000 e) mcg/Act Senna Active Tablets 8.6mg Unknown Venlafaxine HCL Active Caps ER 37.5mg Unknown ER 24HR Ventolin HFA Active Aerosol 108(90Bas Unknown /0000 e) mcg/Act Vitamin B Complex Active Tablets Unknown Vitamin D Active Tablets 1000Unit 4 every Unknown /0000 day Melatonin ER Active Tablets ER 5mg Unknown Systane Active Solution 0.4-0.3% as needed Vigamox 03/20 Hx Solution 0.5% 3ml one drop Brian J. /2017 right eye Arleo, - three M.D. 04/30 times day, start the day before surgery Prednisolone 03/20 Hx Suspension 1% 15ml 1 drops Brian J. Acetate /2017 right eye Arleo, - three M.D. 04/30 times day. taper as directed Ketorolac 03/20 Hx Solution 0.5% 10ml use one Brian J. Tromethamine /2017 drop in Arleo, - the right M.D. 11 eye times a day, start the day before surgery No Active 02/10 Hx Unknown Medications /2017 - 02/10 Advair Diskus Hx Aerosol 500-50mcg bid Unknown /0000 /Dose - 08/09 Immunizations Description No Information Available Vital Signs Description No Information Available Results Description No Information Available Procedures Date Code Description Status 04/08/2018 73128 Cataract Surgery Complex Completed 03/20/2018 65512 Ophthalmic Biometry Completed 03/20/2018 24873 Ophthalmic Biometry Completed 03/20/2018 51434 Est Patient Intermediate Exam Completed 02/10/2018 37984 Est Patient Intermediate Exam Completed 08/12/2017 69630 Est Patient Comprehensive Exam Completed 08/06/2016 51690 Est Patient Comprehensive Exam Completed 08/29/2015 01960 Est Patient Comprehensive Exam Completed 09/19/2014 63911 Determination Of Refractive State Completed 09/19/2014 30164 Est Patient Comprehensive Exam Completed 08/02/2013 40407 Determination Of Refractive State Completed 08/02/2013 88393 Est Patient Comprehensive Exam Completed 10/13/2008 07522 New Patient Comprehensive Exam Completed Encounters Type Date Location Provider Dx Diagnosis Office Visit 06/24/2012 Chase Rizo, 373.00 Blepharitis Unspec 1:15p , pc M.D. Plan of Treatment 05/01/2018 - Lashawn Post O.D.Z96.1 Presence of intraocular lensComments: Smoking can increase the risk of developing or worsening any eye related disease , as well as affect your overall health. If you are a smoker, we strongly recommend that you quit.If you are not a smoker, we strongly recommend that you do not start. Your lens implant looks stable in your right eye at this time. You should be done, or almost done with your drops at this time according to your surgical calendar. I have given you a prescription for glasses. If you have any questions, please feel free to call our office at .Follow up:as knderbiqxQ51.812 Combined forms of age-related cataract, left eye
--- OUTSIDE RECORDS SUMMARY | 2018-05-20 13:37 | XMS REPORT ---
:1940 External Reference #:[id number] Author Organization [facility] Address [address] [place] [address] [place] [address] Phone [phone] Care Team Providers Name Role Phone Manas Villeda MD Primary Care Physician Unavailable Payers Type Date Identification Numbers Payment Provider Subscriber Medicare Primary Effective: Policy Number: Medicare Roxi Martin 2007 [id number] PayID: [id number] [address] [place] [address] [facility] Part B Policy Number: [id number] [facility] Roxi Martin PayID: [id number] [address] [place] [address] Problems Date Description Provider Status Onset: 04/06/2015 Restless legs Jaziel Hurst M.D. 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 Active Onset: 01/31/2018 Chest pain Shanda Gregory D.O. Active Onset: 01/31/2018 Hypothyroidism Shanda Gregory D.O. Active Onset: 02/01/2018 Chronic diastolic heart failure Shanda Gregory D.O. 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 HCL 018 every day, Delgado, DO use generic FACC Plavix Active Tablets 75mg 90tabs Take one You S. 018 tablet by Delgado, DO mouth daily FACC Metoprolol Active Tablets 25mg 180tabs 1 by mouth You S. Tartrate 018 twice a day Delgado, DO FACC Electric Bed Active Electric R26.9 You S. 018 bed for Delgado, DO home use FACC I50.32 R60.0 Repatha Sureclick 12/03/2017 Active Solution 140mg/ml 2ml sc d1xquiz ( You Joshua. Auto-Inject has not Danny, started yet) DO [...] Oxygen 08/15/2016 Active Misc 1unit please use R Sharon s o2 at 2l/min 0 Brittani, with 9 [...] Tablets 37.5mg 270ta 1 qhs per Jaziel Duggan bs patient Kellee Hurst. Levocetirizine Active Tablets 5mg [...] Sub 0.4mg 25tab 1 sl q5mins You [place]. joshua x3 as needed Danny, for chest DO [...] Active Capsules 150mg 90cap Take 1 Benny Cote, After Dinner MD ( taken 1 hour before supper) Metoprolol [...] 5mg 90tab 2 by mouth I You [place]. Besylate 08/20/2017 s every day 2 Delgado, 5 DO FACC . 1 1 9 Pravastatin 05/23/2017 - Hx Tablets 10mg 90tab 1 by mouth I You S. Sodium 06/26/2017 s every 2 Delgado, evening 5 DO FACC . 1 1 9 Topiramate 07/18/2016 - Hx Tablets 25mg 120ta 1 every Jaziel S. 12/03/2016 bs night at [place], bedtime for M.D. 1 week then 2 [...] Tablets 50mg 270ta 2 by mouth Jaziel SKandi 02/02/2018 bs every night [place], at bedtime M.D. Vitamin D - Hx [...] ER 08/22/2017 24HR bs tablet by 2 Danny, mouth twice 5 DO FACC daily . 1 1 9 Sucralfate - Hx Powder 1 30 minutes Unknown 04/29/2017 before meals tid Multaq - Hx Tablets 400mg 1 by mouth Unknown 04/29/2017 twice a day Omeprazole - Hx Capsules DR 40mg 1 by mouth Unknown 06/26/2017 bid Amiodarone HCL - Hx Tablets 200mg 90tab 1 by mouth You S. 05/01/2018 s once a Danny, day-on Hold DO FACC Metoprolol - Hx Tablets 25mg 180ta 1 by mouth You S. Tartrate 01/30/2018 bs twice a day DO Danny FACC Acetaminophen - Hx Tablets 325mg 2 [...] Millicuries Vital Signs Date Vital Result Comment 05/01/2018 Height 61 inches 5'1" Weight 251.00 [...] HOLD AND CALL DR HERRON CELL PHONE [phone] 2 Because ethnic data is not always [...] Date CPT Code Description Status Comment 04/09/2018 77480 EKG Tracing & Interpretation Completed 03/25/2018 39002 Stress Test Completed 03/25/2018 76166 Myocardial Perfusion Imaging Completed Tomographic (Spect) Multiple Studies 02/03/2018 91334 EKG Tracing & Interpretation Completed 01/31/2018 00052 EKG, Interpretation Only Completed 01/26/2018 16713 EKG, Interpretation Only Completed 01/25/2018 47141 ECHO Transthorasic Realtime Completed 2D W Doppler & Color Flow Hosp 01/24/2018 10852 EKG, Interpretation Only Completed 01/24/2018 67535 Insert Non-Tunneled Venous Completed Catether 01/23/2018 03607 Percutaneous Transcatheter Completed Placement Of Intracoronary Stent 01/23/2018 05433 Cath PLMT&NJX L Ventriculog Completed Img S&I 01/23/2018 03752 EKG, Interpretation Only Completed 01/16/2018 00395 EKG Tracing & Interpretation Completed 12/30/2017 49583 EKG Tracing & Interpretation Completed 12/29/2017 77469 Diffusing Capacity Completed 12/29/2017 41781 Pulmonary Completed Function><Bronchodil 12/03/2017 76081 EKG Tracing & Interpretation Completed 10/10/2017 72696 EKG Tracing & Interpretation Completed 05/23/2017 36569 EKG Tracing & Interpretation Completed 10/14/2016 87200 ECHO Transthorasic Realtime Completed 2D W Doppler & Color Flow Hosp 10/11/2016 97588 EKG, Interpretation Only Completed 10/01/2016 90601 Cath PLMT&NJX L Ventriculog Completed Img S&I 09/29/2016 90651 EKG, Interpretation Only Completed 09/28/2016 31908 EKG, Interpretation Only Completed 09/26/2016 13888 Treadmill Interp/Report Only Completed 09/26/2016 62009 Stress Test Supervsn W/Out Completed I/R 09/25/2016 89720 Color Flow Doppler/Interp & Completed Reprt 09/25/2016 33208 Pulse Completed Wave/Continuous-Interp.RPT 09/25/2016 81379 Echocardiography, Completed Transesophageal, Real Time W/Image 2D W/W/O M-M 09/25/2016 30907 Cardioversion Completed 08/06/2016 Diabetic Retinal Eye Exam Completed Document: 08/06/16 - Consult Ophthalmology - Brian 07/04/2016 84279 Plethysmography Determination Completed Lung Volumes & Per Airway Resist 07/04/2016 51577 Pulmonary Completed Function><Bronchodil 07/04/2016 37133 Diffusing Capacity Completed 07/03/2016 12789 Polysomnography Sleep Staging Completed 4+ Parameters 01/04/2016 41419 Nerve Conduction 01-02 Completed Studies 03/18/2012 09519 Nerve Conduction, Sensory Completed 03/18/2012 52747 Nerve Conduction, Motor W/O Completed F-Wave Study 02/18/2011 81877 Remove Impacted Cerumen Completed 05/07/2005 34142 Treadmill Interp/Report Only Completed 05/07/2005 79694 Stress Test Supervsn W/Out Completed I/R Encounters Type Date Location Provider CPT E/M Dx Office Visit 04/14/2018 [facility] Delroy Hilliard, 11330 I25.10 2:28p [facility] M.Reanna J18.9 R79.89 Office Visit 04/13/2018 3:14p [facility] Delroy Hilliard, 34442 R07.89 [facility] M.DKandi R79.89 J18.9 I25.10 J40 Office Visit 04/09/2018 3:40p [facility] [place] [address] I25.2 [facility] I25.10 I50.32 I11.0 I48.0 D64.9 E66.8 E03.9 Office Visit 02/26/2018 1:30p [facility] [place] [address] R06.02 Services Of [facility] J45.20 G47.33 Office Visit 02/17/2018 3:00p [facility] Of Avinash Romero M.D. 90333 D47.1 [facility] AT [place] D64.9 I21.4 Office Visit 02/13/2018 10:20a [place] [address] I25.2 [facility] AT [facility] I25.119 I50.32 I48.0 N18.9 D64.9 E66.8 E03.9 Office Visit 02/03/2018 2:40p [facility] Of Bennie Herron, 71063 Z48.812 Field Examiner AT [facility] Jeane, FAC, FSCAI Office Visit 02/02/2018 1:14p [facility],carli Gregory, 05328 I20.9 Hospitalists D.O. I50.32 I48.0 I11.0 Office Visit 02/01/2018 1:14p [facility],carli Gregory, 86386 I50.32 Hospitalists D.O. I13.0 J96.11 G25.81 N18.3 Office Visit 01/31/2018 1:29p [facility] Of [facility] Saad Gato Holley, 26230 R07.9 Jeane, [facility] Office Visit 01/31/2018 1:13p [facility],pc Shanda Gregory, 90220 D64.9 Hospitalists D.OKandi R07.9 I48.91 E03.9 G25.81 Office Visit 01/27/2018 11:56a [facility], Lennox Blanksheela, 25849 I20.0 Hospitalists Jeane G25.81 J96.11 I48.91 S30.1xxA D64.9 Office Visit 01/26/2018 11:56a [facility] Lennox Singh, 90320 J96.21 Assoc, Hospitalists Jeane I25.10 S30.1xxA I48.91 N18.3 D64.9 Office Visit 01/25/2018 9:51a [facility] Of Bennie Herron M.D., 65175 I21.4 [facility] AT [facility], FSCAI I25.10 Office Visit 01/25/2018 11:55a [facility] Lennox Singh, 90561 J96.21 Assoc, Hospitalists Jeane I25.10 I48.91 G25.81 N18.3 S30.1xxA Office Visit 01/24/2018 9:49a [facility] Of Bnenie Herron M.D., 50951 I21.4 [facility] AT [facility], FSCAI I25.10 Office Visit 01/24/2018 11:54a [facility] Lennox Singh, 60485 J96.21 Assoc, Hospitalists Jeane I25.10 I48.0 I48.91 N18.3 K25.9 G25.81 Office Visit 01/23/2018 11:52a [facility] Lennox Singh, 64345 I48.91 Assoc, Hospitalists Jeane J96.21 I48.0 N18.3 K25.9 Office Visit 01/22/2018 9:22a [facility] Of Bennie Herron M.D., 17290 R07.9 [facility] AT [facility], [facility] R79.89 Office Visit 01/22/2018 11:52a [facility],pc Yuval Kardon, 08066 I20.9 Hospitalists M.D. N18.9 I48.91 D64.9 Office Visit 01/21/2018 12:37p [facility] Delroy Hilliard, 58736 I25.110 Field Examiner M.D. Office Visit 01/21/2018 11:50a [facility], Bryson Steiner, 07992 I20.0 Hospitalists M.D. I48.91 G47.33 N18.9 J96.10 Office Visit 01/20/2018 2:40p [facility] Of Avinash Romero M.D. 65788 D47.1 [facility] AT [place] D53.9 Office Visit 01/16/2018 3:40p [facility] [place] [address] I20.0 [facility] FAC I25.119 D64.9 N18.9 I48.0 I50.32 I25.2 E78.5 Z87.11 E03.9 Office Visit 12/30/2017 3:20p [facility] Of You Delgado, 23729 I25.119 [facility] FAC D64.9 N18.9 I48.0 I50.32 Z87.11 E66.8 I25.2 E78.5 Office Visit 12/11/2017 3:45p [place]/Laurie Duggan 55861 G43.009 Neurolog[facility] Serv Of Karina Hurst M.D. G89.4 G44.221 Office Visit 12/03/2017 12:00p [facility] Of [facility] [place] [address] R51 FAC I25.119 E78.5 I48.0 N18.9 I50.32 Z87.11 E66.01 D64.9 Office Visit 11/11/2017 4:00p [facility] Of Avinash Romero M.D. 73125 D47.1 [facility] AT [place] D53.9 Office Visit 10/16/2017 11:30a [place]/Laurie Hurst, 55091 G25.0 Neurologic Serv Of Karina Ching R51 I25.119 Office Visit 10/10/2017 10:20a Card[facility] Services Of You Delagdo, 23608 I25.119 Field Examiner AT [facility] I48.0 E78.5 E03.9 N18.9 I50.32 D64.9 Z87.11 Office Visit 08/22/2017 11:00a [facility] Services Of You Delgado, 20343 I25.119 Field Examiner AT [facility] E66.01 I48.0 E78.5 E03.9 I50.32 N18.9 D64.9 Z87.11 Office Visit 08/19/2017 4:00p [facility] Of Avinash Romero M.D. 96490 D47.1 Field Examiner AT [place] R53.83 D53.9 Office Visit 07/01/2017 1:30p [facility] [place] [address] J45.20 Services Of Field Examiner E66.01 Office Visit 06/27/2017 9:40a [facility] Of You Delgado, 40162 I25.119 Field Examiner AT [facility] I48.0 E78.5 E03.9 I50.32 N18.9 E66.01 D64.9 Z87.11 Office Visit 06/18/2017 4:00p [facility] Jaziel Hurst, 03549 I20.8 Services Of Field Examiner Jeane R51 G25.0 Office Visit 05/23/2017 10:40a [facility] Services Of You Delgado, 51280 I25.119 Field Examiner AT [facility] I48.0 I50.9 E03.9 Z87.11 D64.9 N18.9 E78.5 R06.02 Office Visit 05/01/2017 4:00p [place] Jaziel Hurst, 34029 R51 Serv Of Karina Ching I20.8 Office Visit 04/01/2017 3:40p [facility] Of Avinash Romero M.D. 74260 D64.9 Field Examiner AT [place] Office Visit 12/30/2016 1:00p [facility] [place] [address] R06.02 Services Of Field Examiner J45.20 G47.33 E66.01 Office Visit 10/16/2016 10:21a [facility] Varner, MANAGER ORGANIZATIONAL 95551 R06.02 Assoc,pc Hospitalists I50.9 E03.9 J18.1 Office Visit 10/15/2016 2:45p [facility] [place] [address] J12.9 Services Of Field Examiner J45.21 I50.31 Office Visit 10/15/2016 10:16a [facility] Varner, MANAGER ORGANIZATIONAL 27009 R06.02 Assoc,pc Hospitalists E03.9 I50.9 J18.1 Office Visit 10/14/2016 2:44p [facility] [place] [address] J45.21 Services Of Field Examiner J12.9 Office Visit 10/14/2016 10:16a [facility] Annika Varner, RODRIGO 59820 R06.02 Assoc,pc Hospitalists E03.9 I50.9 J18.1 Office Visit 10/13/2016 [facility] Fawn Mario, 87454 R06.02 10:15a Assoc, MANAGER ORGANIZATIONAL Hospitalists E03.9 I50.9 J18.1 Office Visit 10/12/2016 [facility] Fawn Mario, 76649 R06.02 10:14a Assoc, MANAGER ORGANIZATIONAL Hospitalists I50.9 E03.9 J18.1 Office Visit 10/11/2016 10:14a [facility] Annika Varner, MANAGER ORGANIZATIONAL 69317 R06.02 Assoc,pc Hospitalists E03.9 I50.9 J18.1 Office Visit 10/10/2016 10:13a [facility] Varner, MANAGER ORGANIZATIONAL 36561 R06.02 Assoc,pc Hospitalists E03.9 I50.9 Office Visit 10/09/2016 10:12a [facility],pc Favio Mcqueen M.D. 28633 R06.02 Hospitalists E03.9 I50.9 Office Visit 10/03/2016 9:29a [facility],pc Lennox Singh, 22972 I21.4 Hospitalists Jeane I48.91 J45.20 G47.33 Office Visit 10/02/2016 1:07p [facility] Of Amber Kaminski M.D. 35945 I25.10 Field Examiner I48.91 Office Visit 10/02/2016 9:28a [facility], Lennox Singh, 26041 I21.4 Hospitalists M.D. I48.91 J45.20 G47.33 Office Visit 10/01/2016 9:28a [facility],pc Capri Connolly, 45183 I21.4 Hospitalists M.D. I48.91 J45.20 G47.33 Office Visit 09/30/2016 9:27a [facility],pc Capri Connolly, 25108 I21.4 Hospitalists M.D. I48.91 J45.20 Office Visit 09/29/2016 9:27a [facility], Capri Cathleen, 47430 I21.4 Hospitalists M.D. I48.91 J45.20 Office Visit 09/29/2016 1:06p [facility] Zack Francis M.D. 44690 I20.9 I48.91 Office Visit 09/28/2016 9:26a [facility],pc Capri Connolly, 16081 I21.4 Hospitalists M.D. I48.91 J45.20 G47.33 Office Visit 09/27/2016 9:26a [facility], Daniela Lopez, 49894 R01.1 Hospitalists M.D. I48.91 J45.20 Office Visit 09/27/2016 1:05p [facility] Zack Francis, 35855 I21.4 M.D. Office Visit 09/26/2016 9:26a [facility], Capri Cathleen, 67807 R07.1 Hospitalists M.D. I48.91 J45.20 Office Visit 09/25/2016 8:34a [facility] Of Amber Kaminski M.D. 19595 Field Examiner Office Visit 09/25/2016 8:35a [facility] Of Anastasiya Yin, 09259 R07.9 Field Examiner AT [facility] , FACC, [facility] Office Visit 09/25/2016 9:25a [facility], [place] [address] R07.1 Hospitalists J45.20 I48.91 G47.33 Office Visit 07/04/2016 2:45p [place] Jaziel Hurst 70699 R51 Serv Of Field Examiner M.D. Office Visit 06/11/2016 2:00p [facility] Jaziel Hurst 85176 R51 Of Field Examiner M.D. G89.29 Office Visit 06/10/2016 1:30p [facility] [place] [address] R06.02 Services Of Field Examiner J45.909 G47.9 E66.01 Office Visit 04/16/2016 3:40p [facility] Avinash Romero M.D. 16266 D47.1 Field Examiner AT [place] R53.83 G89.4 D63.1 N18.9 Office Visit 04/02/2016 1:00p [facility] Avinash Romero M.D. 42335 D47.1 Field Examiner AT [facility]89.4 R53.83 D64.9 Office Visit 02/06/2016 3:00p [facility] Avinash Romero M.D. 95746 D47.1 Field Examiner AT [place] G89.4 Office Visit 04/06/2015 10:00a [place] carmen Hurst 35841 333.94 Neurologic Serv Of Field Examiner M.D. 333.1 V49.3 Office Visit 04/01/2013 10:30a [place] carmen Hurst 33679 333.1 Neurologic Serv Of Field Examiner M.D. 333.94 Office Visit 03/18/2012 11:45a [place] carmen Hurst, 76612 354.2 Neurologic Serv Of Field Examiner M.D. 333.94 333.1 Office Visit 02/18/2011 10:45a [facility] Of Poncho Crane, 65765 278.00 C.M.AKandi AT [facility].DKandi 380.4 389.10 787.20 Office Visit 04/28/2009 12:30a [facility], Lennox Singh, 95274 567.9 Hospitalists MAlejandro 780.97 278.00 277.9 Office Visit 04/27/2009 1:00a [facility] Ass, Lennox Singh, 25025 567.9 Hospitalists M.DKandi 780.97 278.00 244.9 Office Visit 04/26/2009 1:00a [facility], Lennox Singh, 65287 567.9 Hospitalists M.D. 780.97 278.00 244.9 Office Visit 09/30/2007 11:00a Neurosurgery Services Aureliano Gayle, 37654 721.3 Of [facility] AT [facility] Office Visit 06/03/2007 4:00p Neurosurgery Services Aureliano Gayle, 18509 721.3 Of [facility] AT [facility] Office Visit 03/04/2007 3:30p Neurosurgery Services Aureliano Gayle, 28113 721.3 Of [facility] AT [facility] Office Visit 11/26/2006 3:30p Neurosurgery Services Aureliano Gayle, 23012 721.3 Of [facility] AT [facility] Office Visit 08/27/2006 3:00p Neurosurgery Services Aureliano Gayle, 60637 724.02 Of [facility] AT [facility] Office Visit 05/07/2005 1:00p [facility] Zack Kandi 55910 794.31 Jeane Francis 401.1 Plan of Care Future Appointment(s):07/10/2018 11:15 am - You Delgado DO FAC at Cardiology Services Of [facility] AT Wktdqtdx48/17/2019 3:45 pm - Jaziel Hurst M.D. at [place] [facility]05/18/2018 3:15 pm - Benny Cote MD at [facility] Tsiefenmtqzlnaeu51/13/2018 1:45 pm - Sharon Peter MD at Pulmonology And Sleep Services Of [facility]05/01/2018 - You Delgado DO FACCI25.119 Athscl heart disease of igiugig cor art w unsp ang pctrsComments: Start taking amiodarone 100 mg once a day. You can cut your pills in 1/2 until the new 100 mg tablets come If you are still doing well at next visit, I would like for you to try a low dose of a newer unique statin called livalo. It is not very likely to cause muscle aches with this medications.Follow up:f/u 2 nmuwmsV25.0 Paroxysmal atrial vwqercajouopZ67.9 Chronic kidney disease, unspecified
--- OUTSIDE RECORDS SUMMARY | 2018-05-20 13:37 | XMS REPORT ---
:1940 External Reference #:[id number] Author Organization [facility] Address [address] [place] [address] [place] [address] Phone [phone] Care Team Providers Name Role Phone Manas Villeda MD Primary Care Physician Unavailable Payers Type Date Identification Numbers Payment Provider Subscriber Medicare Primary Effective: Policy Number: Medicare Roxi Martin 2007 [id number] PayID: [id number] [address] [place] [address] [facility] Part B Policy Number: [id number] [facility] Roxi Martin PayID: [id number] [address] [place] [address] Problems Date Description Provider Status Onset: 04/06/2015 Restless legs Jaziel Hurst M.D. Active Onset: 06/10/2016 Dyspnea Sharon Peter MD Active Onset: 06/10/2016 Asthma without status asthmaticus Sharon Peter MD Active Onset: 06/10/2016 Disturbance in sleep behavior Sharon Peter MD Active Onset: 06/10/2016 Morbid obesity Sharon Peter MD Active Onset: 02/03/2018 Encounter for planned Bennie Herron M.D., [facility], Active postprocedural wound closure FSCAI [...] obstruction Onset: 01/24/2018 [place] heart disease of [place] Lennox Singh M.D. 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 Tartrate 018 twice a day Danny, DO FACC Electric Bed Active Electric R26.9 You S. 018 bed for Danny, DO home use FACC I50.32 R60.0 Repatha Sureclick 12/03/2017 Active Solution 140mg/ml 2ml sc [id number] ( You S. Auto-Inject has not Danny, [...] Tablets 200mg 90tab 1 by mouth You lewis once a Delgado, day-on Hold DO FACC Ventolin HFA Active Aerosol 108(90Base [...] 90cap Take 1 Benny Cote, After Dinner ( taken 1 hour before [...] 5mg 90tab 2 by mouth I You Lewis. Besylate 08/20/2017 s every day 2 Delgado, 5 DO FACC . 1 1 9 Pravastatin 05/23/2017 - Hx Tablets 10mg 90tab 1 by mouth I You Lewis. Sodium 06/26/2017 s every 2 Delgado, evening [...] mouth Jaziel S. 02/02/2018 bs every night [place], at bedtime M.D. Vitamin D - Hx [...] Millicuries Vital Signs Date Vital Result Comment 04/30/2018 Height 61 inches 5'1" Weight 246.00 [...] HOLD AND CALL DR HERRON CELL PHONE [phone] 2 Because ethnic data is not always [...] Date CPT Code Description Status Comment 04/09/2018 35567 EKG Tracing & Interpretation Completed 03/25/2018 57603 Stress Test Completed 03/25/2018 99014 Myocardial Perfusion Imaging Completed Tomographic (Spect) Multiple Studies 02/03/2018 53186 EKG Tracing & Interpretation Completed 01/31/2018 62607 EKG, Interpretation Only Completed 01/26/2018 78995 EKG, Interpretation Only Completed 01/25/2018 34148 ECHO Transthorasic Realtime Completed 2D W Doppler & Color Flow Hosp 01/24/2018 62464 EKG, Interpretation Only Completed 01/24/2018 31996 Insert Non-Tunneled Venous Completed Catether 01/23/2018 43109 Percutaneous Transcatheter Completed Placement Of Intracoronary Stent 01/23/2018 55527 Cath PLMT&NJX L Ventriculog Completed Img S&I 01/23/2018 60816 EKG, Interpretation Only Completed 01/16/2018 49075 EKG Tracing & Interpretation Completed 12/30/2017 76238 EKG Tracing & Interpretation Completed 12/29/2017 80559 Diffusing Capacity Completed 12/29/2017 33833 Pulmonary Completed Function><Bronchodil 12/03/2017 43879 EKG Tracing & Interpretation Completed 10/10/2017 43955 EKG Tracing & Interpretation Completed 05/23/2017 16554 EKG Tracing & Interpretation Completed 10/14/2016 73088 ECHO Transthorasic Realtime Completed 2D W Doppler & Color Flow Hosp 10/11/2016 68256 EKG, Interpretation Only Completed 10/01/2016 73755 Cath PLMT&NJX L Ventriculog Completed Img S&I 09/29/2016 15585 EKG, Interpretation Only Completed 09/28/2016 84798 EKG, Interpretation Only Completed 09/26/2016 09498 Treadmill Interp/Report Only Completed 09/26/2016 79467 Stress Test Supervsn W/Out Completed I/R 09/25/2016 80778 Color Flow Doppler/Interp & Completed Reprt 09/25/2016 39400 Pulse Completed Wave/Continuous-Interp.RPT 09/25/2016 94526 Echocardiography, Completed Transesophageal, Real Time W/Image 2D W/W/O M-M 09/25/2016 03442 Cardioversion Completed 08/06/2016 Diabetic Retinal Eye Exam Completed Document: 08/06/16 - Consult Ophthalmology - Brian 07/04/2016 58447 Plethysmography Determination Completed Lung Volumes & Per Airway Resist 07/04/2016 77696 Pulmonary Completed Function><Bronchodil 07/04/2016 17942 Diffusing Capacity Completed 07/03/2016 61451 Polysomnography Sleep Staging Completed 4+ Parameters 01/04/2016 75852 Nerve Conduction - Completed Studies 03/18/2012 10376 Nerve Conduction, Sensory Completed 03/18/2012 28994 Nerve Conduction, Motor W/O Completed F-Wave Study 02/18/2011 20205 Remove Impacted Cerumen Completed 05/07/2005 33041 Treadmill Interp/Report Only Completed 05/07/2005 73702 Stress Test Supervsn W/Out Completed I/R Encounters Type Date Location Provider CPT E/M Dx Office Visit 04/14/2018 [facility] Blossom Hilliard 55574 I25.10 2:28p Karina Ching J18.9 R79.89 Office Visit 04/13/2018 3:14p [facility] Blossom Hilliard 72831 R07.89 Karina Ching R79.89 J18.9 I25.10 J40 Office Visit 04/09/2018 3:40p [facility] [place] [address] I25.2 [facility] I25.10 I50.32 I11.0 I48.0 D64.9 E66.8 E03.9 Office Visit 02/26/2018 1:30p [facility] [address] R06.02 Services Of [facility] J45.20 G47.33 Office Visit 02/17/2018 3:00p [facility] Of Avinash Romero M.D. 43349 D47.1 Customer Care Voice Consultant AT [facility] D64.9 I21.4 Office Visit 02/13/2018 10:20a [place] [address] [address]25[address] [facility] AT [facility] I25.119 I50.32 I48.0 N18.9 D64.9 E66.8 E03.9 Office Visit 02/03/2018 2:40p [facility] Of Bennie Herron, 39157 Z48.812 Customer Care Voice Consultant AT [facility] Jeane, FAC, [facility] Office Visit 02/02/2018 1:14p [facility], Shanda Gregory, 38307 I20.9 Hospitalists D.O. I50.32 I48.0 I11.0 Office Visit 02/01/2018 1:14p [facility] Shanda Gregory, 90943 I50.32 Hospitalists D.O. I13.0 J96.11 G25.81 N18.3 Office Visit 01/31/2018 1:29p [facility] Of [facility] Saad Holley, 04045 R07.9 Jeane, FAC, [facility] Office Visit 01/31/2018 1:13p [facility], Shanda Gregory, 18880 D64.9 Hospitalists D.O. R07.9 I48.91 E03.9 G25.81 Office Visit 01/27/2018 11:56a [facility], Lennox Singh, 13052 I20.0 Hospitalists Jeane G25.81 J96.11 I48.91 S30.1xxA D64.9 Office Visit 01/26/2018 11:56a [facility] Lennox Singh 44323 J96.21 Assoc,pc Hospitalists Jeane I25.10 S30.1xxA I48.91 N18.3 D64.9 Office Visit 01/25/2018 9:51a [facility] Of Bennie Herron M.D., 63276 I21.4 Customer Care Voice Consultant AT [facility], FSCAI I25.10 Office Visit 01/25/2018 11:55a [facility] Lennox Singh, 88423 J96.21 Assoc,pc Hospitalists Jeane I25.10 I48.91 G25.81 N18.3 S30.1xxA Office Visit 01/24/2018 9:49a [facility] Of Bennie Herron M.D., 73581 I21.4 Customer Care Voice Consultant AT [facility], FSCAI I25.10 Office Visit 01/24/2018 11:54a [facility] Lennox Singh, 53638 J96.21 Assoc, Hospitalists Jeane I25.10 I48.0 I48.91 N18.3 K25.9 G25.81 Office Visit 01/23/2018 11:52a [facility] Lennox Singh, 60475 I48.91 Assoc, Hospitalists Jeane J96.21 I48.0 N18.3 K25.9 Office Visit 01/22/2018 9:22a [facility] Of Bennie Herron M.D., 12730 R07.9 Customer Care Voice Consultant AT [facility], FSCAI R79.89 Office Visit 01/22/2018 11:52a [facility], Yuval Marshall, 11172 I20.9 Hospitalists Jeane N18.9 I48.91 D64.9 Office Visit 01/21/2018 12:37p [facility] Of Delroy Hilliard, 11158 I25.110 Customer Care Voice Consultant M.Reanna Office Visit 01/21/2018 11:50a [facility] Assoc,pc Bryson Steiner, 68171 I20.0 Hospitalists Jeane I48.91 G47.33 N18.9 J96.10 Office Visit 01/20/2018 2:40p [facility] Of Avinash Romero M.D. 63553 D47.1 Customer Care Voice Consultant AT [facility] D53.9 Office Visit 01/16/2018 3:40p [facility] [place] [address] [address]20[address] [facility] FAC I25.119 D64.9 N18.9 I48.0 I50.32 I25.2 E78.5 Z87.11 E03.9 Office Visit 12/30/2017 3:20p [facility] [place], 8[address]86 I25.[address] [facility] DO [facility] D64.9 N18.9 I48.0 I50.32 Z87.11 E66.8 I25.2 E78.5 Office Visit 12/11/2017 3:45p [facility] Jaziel Duggan 26202 G43.009 Neurolog[facility] Serv Of Karina Hurst M.D. G89.4 G44.221 Office Visit 12/03/2017 12:00p [facility] Of [facility] [place] [address] R51 [facility] I25.119 E78.5 I48.0 N18.9 I50.32 Z87.11 E66.01 D64.9 Office Visit 11/11/2017 4:00p [facility] Of Avinash Romero M.D. 20680 [address]47.[address] [facility] AT [facility] D53.9 Office Visit 10/16/2017 11:30a [facility] Jaziel Hurst, 74946 G25.0 Neurologic Serv Of Karina Ching R51 I25.119 Office Visit 10/10/2017 10:20a [facility] Of You [place], 91984 I25.119 Customer Care Voice Consultant AT [facility] I48.0 E78.5 E03.9 N18.9 I50.32 D64.9 Z87.11 Office Visit 08/22/2017 11:00a [facility]iology Services Of You Delgado, 07[address]25.[address] [facility] AT [facility] E66.01 I48.0 E78.5 E03.9 I50.32 N18.9 D64.9 Z87.11 Office Visit 08/19/2017 4:00p [facility] Of Avinash Romero M.D. 91636 D47.1 Customer Care Voice Consultant AT [facility] R53.83 D53.9 Office Visit 07/01/2017 1:30p [facility] [address] J45.20 Services Of Customer Care Voice Consultant E66.01 Office Visit 06/27/2017 9:40a [facility] Of You [place], 83749 I25.119 Customer Care Voice Consultant AT [facility] I48.0 E78.5 E03.9 I50.32 N18.9 E66.01 D64.9 Z87.11 Office Visit 06/18/2017 4:00p [facility] Jaziel Hurst, 91433 I20.8 Services Of Customer Care Voice Consultant M.DKandi R51 G25.0 Office Visit 05/23/2017 10:40a [facility] Services Of You Delgado, 94455 I25.119 Customer Care Voice Consultant AT [facility] I48.0 I50.9 E03.9 Z87.11 D64.9 N18.9 E78.5 R06.02 Office Visit 05/01/2017 4:00p [facility] Jaziel Hurst, 65403 R51 Serv Of Customer Care Voice Consultant M.D. I20.8 Office Visit 04/01/2017 3:40p [facility] Of Avinash Romero M.D. 29283 D64.9 Customer Care Voice Consultant [facility] Office Visit 12/30/2016 1:00p [facility] [place] [address] R06.02 Services Of Customer Care Voice Consultant J45.20 G47.33 E66.01 Office Visit 10/16/2016 10:21a [facility] [place] [address] R06.02 Assoc, Hospitalists I50.9 E03.9 J18.1 Office Visit 10/15/2016 2:45p [facility] [place] [address] J12.9 Services Of Customer Care Voice Consultant J45.21 I50.31 Office Visit 10/15/2016 10:16a [facility] [place] [address] R06.02 Assoc, Hospitalists E03.9 I50.9 J18.1 Office Visit 10/14/2016 2:44p [facility] [place] [address] J45.21 Services Of Customer Care Voice Consultant J12.9 Office Visit 10/14/2016 10:16a [facility] [place]ino Varner, QA REVIEWER 87725 R06.02 Assoc,pc Hospitalists E03.9 I50.9 J18.1 Office Visit 10/13/2016 Laurie Martin, 78063 R06.02 10:15a Assoc,pc QA REVIEWER Hospitalists E03.9 I50.9 J18.1 Office Visit 10/12/2016 Laurie Martin, 66090 R06.02 10:14a Assoc,pc QA REVIEWER Hospitalists I50.9 E03.9 J18.1 Office Visit 10/11/2016 10:14a [facility] Chino Varner, QA REVIEWER 99415 R06.02 Assoc,pc Hospitalists E03.9 I50.9 J18.1 Office Visit 10/10/2016 10:13a [facility] Chino Varner, QA REVIEWER 57679 R06.02 Assoc,pc Hospitalists E03.9 I50.9 Office Visit 10/09/2016 10:12a [facility],pc Favio Mcqueen M.D. 88430 R06.02 Hospitalists E03.9 I50.9 Office Visit 10/03/2016 9:29a [facility],pc Lennox Singh, 62527 I21.4 Hospitalists M.DKandi I48.91 J45.20 G47.33 Office Visit 10/02/2016 1:07p [facility] Of Amber Kmainski M.D. 59742 I25.10 Customer Care Voice Consultant I48.91 Office Visit 10/02/2016 9:28a [facility],pc Lennox Singh, 16537 I21.4 Hospitalists M.DKandi I48.91 J45.20 G47.33 Office Visit 10/01/2016 9:28a [facility],pc Capri Connolly, 05018 I21.4 Hospitalists M.DKandi I48.91 J45.20 G47.33 Office Visit 09/30/2016 9:27a [facility],pc Capri Connolly, 68678 I21.4 Hospitalists M.DKandi I48.91 J45.20 Office Visit 09/29/2016 9:27a [facility], Capriemeli Connolly, 40661 I21.4 Hospitalists M.DKandi I48.91 J45.20 Office Visit 09/29/2016 1:06p [facility] Zack Francis M.D. 77399 I20.9 I48.91 Office Visit 09/28/2016 9:26a [facility], Capri Connolly, 92427 I21.4 Hospitalists Jeane I48.91 J45.20 G47.33 Office Visit 09/27/2016 9:26a [facility], Daniela Lopez, 45533 R01.1 Hospitalists M.Reanna I48.91 J45.20 Office Visit 09/27/2016 1:05p [facility] Zack Francis, 89579 I21.4 M.DKandi Office Visit 09/26/2016 9:26a [facility], Capri Connolly, 50070 R07.1 Hospitalists Jeane I48.91 J45.20 Office Visit 09/25/2016 8:34a [facility] Of Amber Kaminski M.D. [address] [facility] Office Visit 09/25/2016 8:35a [facility] Of Anastasiya Yin, 02359 R07.9 Customer Care Voice Consultant AT [facility] , FACC, [facility] Office Visit 09/25/2016 9:25a [facility], Ramona Ashley, 05365 R07.1 Hospitalists J45.20 I48.91 G47.33 Office Visit 07/04/2016 2:45p [facility] Jaziel Hurst 31940 R51 Serv Of Karina Ching Office Visit 06/11/2016 2:00p [facility] Jaziel Hurst 85723 R51 Of Karina Chign G89.29 Office Visit 06/10/2016 1:30p [facility] [place] [address] R06.02 Services Of [facility] J45.909 G47.9 E66.01 Office Visit 04/16/2016 3:40p [facility] Of Avinash Romero M.D. 53634 D47.1 Customer Care Voice Consultant AT [facility] R53.83 G89.4 D63.1 N18.9 Office Visit 04/02/2016 1:00p [facility] Avinash Romero M.D. 25090 D47.1 Customer Care Voice Consultant AT [facility] G89.4 R53.83 D64.9 Office Visit 02/06/2016 3:00p [facility] Avinash Romero M.D. 21059 D47.1 Customer Care Voice Consultant AT [facility] G89.4 Office Visit 04/06/2015 10:00a [facility] Jaziel Hurst, 99420 333.94 Neurologic Serv Of Customer Care Voice Consultant M.D. 333.1 V49.3 Office Visit 04/01/2013 10:30a [facility] Jaziel Hurst 59168 333.1 Neurologic Serv Of Customer Care Voice Consultant M.D. 333.94 Office Visit 03/18/2012 11:45a [facility] Jaziel Hurst, 39270 354.2 Neurologic Serv Of Customer Care Voice Consultant M.D. 333.94 333.1 Office Visit 02/18/2011 10:45a [facility] Of Poncho Crane, 30793 278.00 C.M.AKandi AT [facility] 380.4 389.10 787.20 Office Visit 04/28/2009 12:30a [facility] Ass, Lennox Singh, 49991 567.9 Hospitalists M.DKandi 780.97 278.00 277.9 Office Visit 04/27/2009 1:00a [facility], 55013 567.9 Hospitalists M.DKandi 780.97 278.00 244.9 Office Visit 04/26/2009 1:00a [facility] Lennox Singh, 96006 567.9 Hospitalists M.DKandi 780.97 278.00 244.9 Office Visit 09/30/2007 11:00a [facility] Services Aureliano Gayle, 11750 721.3 Of Customer Care Voice Consultant AT [facility] Office Visit 06/03/2007 4:00p [facility] Services Aureliano Gayle, 99193 721.3 Of Customer Care Voice Consultant AT [facility] Office Visit 03/04/2007 3:30p [facility] Services Aureliano Gayle, 35779 721.[address] [facility] AT [facility] Office Visit 11/26/2006 3:30p Neurosurgery Services Aureliano Gayle, 22243 721.[address] [facility] AT [facility] Office Visit 08/27/2006 3:00p Neurosurgery Services Aureliano Gayle, 70645 724.[address] [facility] AT [facility] Office Visit 05/07/2005 1:00p [facility] Zack Pina 00091 794.31 Jeane Francis 401.1 Plan of Care Future Appointment(s):05/06/2019 3:45 pm - Jaziel Hurst M.D. at [facility] Of [facility]05/18/2018 3:15 pm - Benny Cote MD at [facility] Ejaklqhezvqjwwjf80/13/2018 1:45 pm - Sharon Peter MD at [facility] Services Of [facility]04/30/2018 - Jaziel Hurst M.D.I20.9 Angina pectoris, nkantedjtxtW05.221 Chronic tension-type headache, intractableFollow up:1 YEARG25.0 Essential jwvpapI50.07 Spinal stenosis, lumbosacral region
--- OUTSIDE RECORDS SUMMARY | 2018-05-20 13:38 | XMS REPORT ---
:1940 External Reference #:[id number] Author Organization [facility] Address [address] [place] [address] Phone [phone] Care Team Providers Name Role Phone Manas Villeda MD Care Team Information Land Survey Technician Unavailable Manas Villeda MD Primary Care Physician Unavailable Payers Type Date Identification Numbers Payment Provider Subscriber Medicare Primary Effective: Policy Number: [place] Jocelyne Martin 2010 [id number] PayID: [id number] [address] [facility] [place] [address] Medigap Part B Policy Number: [id number] [facility] Health Care Options Herminio Martin PayID: [id number] [address] [place] [address] Problems Date Description Provider Status Onset: 2013 [...] 1 by Veronica mouth Amaris, every day [employer] Flovent HFA 05/07 Active Aerosol 110mcg/Ac 12gm 1 puff R13.10 t daily to Amaris, tongue, [place] swallow; samples Ferrous Sulfate 01/29 Active Tablets 325(65Fe) 90tabs 1 by Manas Arzate mg mouth Darlow, every day M.D. Amiodarone HCL 01/09 Active Tablets 200mg 360tabs 1 by Veronica mouth qd Amarsi, [place] Nitroglycerin 10/28 Active Tablets 0.4mg 30tabs 1 sl as Sub needed Amaris, pain, may [place] repeat q5 min, if no relief after 2, call 911 Hydrocodone-Acet 02/06 Active Tablets 10-325mg 240tabs 1-2 every G89.4 Zulema aminophen /2015 6 hours [place]dorf, as needed Afnp-C pain Venlafaxine HCL 04/07 Active Caps ER 37.5mg 90caps Take 1 R23.2 Veronica ER /2014 24HR Capsule Amaris, po qhs [employer] Levocetirizine 07/12 Active Tablets 5mg 90tabs take 1 Veronica Dihydrochloride tablet Amaris, every day [employer] Omeprazole 05/02 Active Capsules 40mg 180caps take [address] adi Villeda, qd Jeane Ventolin HFA Active Aerosol 108(90Bas 3units 2 puffs Veronica /0000 e) every 6 Amaris, mcg/Act hours as [employer]ER needed Albuterol Active Nebulizer (2.5mg/3M 180ml use four Veronica Sulfate / L) 0.083% times a Amaris, day as [place] needed Colace Active Capsules 100mg 540caps 1 by Veronica /0000 mouth Amaris, twice a [place] day for bowels Multivitamin Active Tablets 100tabs 1 po qd Unknown With Folic Acid supplemen t Senna S Active Tablets 8.6-50mg 180tabs 1 by Veronica /0000 mouth Amaris, twice a [place] [employer] day Calcium/Mag Active Chewtabs 30units 1 po qd Unknown /0000 Singulair Active Tablets 10mg 90tabs take 1 Veronica /0000 tablet Amaris, every day [place] [employer] Fluticasone Active Suspension 50mcg/Act 48units Use 2 Veronica Propionate Sprays In Amaris, Each [place] Nostril AT Bedtime Acetaminophen Active Tablets 325mg [...] 1 by Unknown /0000 mouth every day Amitriptyline Active Tablets 10mg 90tabs Take 1 Manas A. HCL /0000 Tablet AT Darlow, Bedtime M.D. Pramipexole Active Tablets 1mg 180tabs Take 2 Manas A. Dihydrochloride /0000 Tablets Darlow, Every M.D. Night AT Bedtime Melatonin Active Capsules 10mg 1 cap by [...] /0000 24HR Tablets Darlow, Every Day M.D. Prednisone 01/16 Hx Tablets 10mg 19tabs 4 by mouth x 2 Amaris, - days, [place] 02/04 then 3 by mouth x 2 days, then 2 by mouth x 2 days,then 1 by mouth x 1 day Nitrofurantoin 09/22 Hx Capsules 100mg 14caps 1 by Manas A. Monohyd mouth two Darlow, - times a M.D. Amoxicillin 08/29 Hx Tablets 875mg 20tabs 1 tab twice a Amaris, - day x 10 [place] [employer] Amoxicillin 08/20 Hx Tablets 875mg 14tabs 1 tab Manas A. twice a Darlow, - day x 7 M.D. Breo Ellipta 02/28 Hx Aerosol 100-25mcg 60units 1 /Inh inhalatio Amaris, - n once [place] [employer] 04/20 per day, rinse after use Amiodarone HCL 01/09 Hx Tablets 200mg 120tabs 2 by mouth bid Amaris, - [place] 04/10 Zostavax 12/24 Hx Suspension 19068Qoh/ 1units inject Rec 0.65ML subq x 1 Amaris, - [employer] 08/20 Amiodarone HCL 12/24 Hx Tablets 400mg 180tabs 1 by mouth Amaris, - twice a [place] Atrovent HFA 10/22 Hx Aerosol 17mcg/Act 12.900g 2 puffs m qid prn Amaris, - shortness [place] [employer] 11/27 breath, asthma symptoms Multaq 10/03 Hx Tablets 400mg 180tabs take one tablet by Amaris, - mouth [place] 12/24 twice a day Lisinopril 10/03 Hx Tablets 20mg 1 by mouth - every day 11/27 Metoprolol 10/03 Hx Tablets 25mg 180tabs 1 by Veronica Tartrate mouth Amaris, - twice a [place] Rosuvastatin 10/03 Hx Tablets 20mg 1 by Unknown mouth - every day 11/28 Aspirin 10/[address] 81mg 1 by mouth - every day 11/08 Hydromorphone 09/16 Hx T24a 8mg 30units 1 po G89.4 Veronica HCL daily by Amaris, - mouth, [place] [employer] 10/22 nte pill daily Venlafaxine HCL 08/14 Hx Tablets 37.5mg 90tabs take 3 by G89.4 Veronica mouth Amaris, - daily [place] 11/27 Cyclobenzaprine 08/14 Hx Tablets 5mg 60tabs one to G89.4 Veronica HCL two Amaris, - tablet [place] [employer] 10/22 every hours as needed pain Chair Lift 08/14 Hx due to G89.4 significa Amaris, - nt [employer] 09/15 chronic 2017 pain and immobilit y, a chair lift is required for adl's and self cares Dilaudid 08/14 Hx Tablets 2mg 30tabs 1 by mouth Amaris, - twice [place] 10/22 daily as needed for severe pain caution: sedation, alcohol Amoxicillin 06/07 Hx Tablets 875mg 14tabs 1 tab J01.90 twice a Amaris, - day x 7 [place] [employer] 08/13 days Prednisone 06/07 Hx Tablets 5mg 78tabs 12 by J01.90 mouth Amaris, - today, [place] [employer] 08/13 decrease by 1 every day until gone Furosemide 04/10 Hx Tablets 40mg 30tabs 2 po qd G47.62 Amaris, - [place] 04/10 Portable Oxygen 04/10 Hx small R09.02 portable Amaris, - tank for [place] 11/27 travel away from home Simply Saline 04/10 Hx Aerosol 0.9% 1Bottle 2 sprays each Amaris, - nostril [place] 11/27 twice daily Pulse Oximeter 04/10 Hx for use R09.02 with Amaris, - oxygen [place] [employer] 11/27 therapy desired range is >90% Clonazepam 04/10 Hx Tablets 0.5mg 30tabs 1/2 to 1 G47.62 tab by Amaris, - mouth qhs [place] [employer] 09/16 prn insomnia --caution sedation with norco Hydrocodone 02/06 Hx Solution 60-4-5mg/ G89.4 Veronica Bitartrate/Chlor 5ML Amaris, pheniramine - [employer] Maleate/Pse 02/06 Hydrocodone-Acet 02/06 Hx Tablets 7.5-325mg 240tabs 1-2 every G89.4 Veronica aminophen 6 hours Amaris, - as needed [employer] 02/06 pain nte 8 tabs per day Propranolol HCL 01/04 Hx Tablets 40mg 60tabs take one Manas A. tablet by Darmax, - mouth M.D. 01/04 twice a day Propranolol HCL 01/04 Hx Tablets 40mg 180tabs Take 1 Manas A. Tablet Darlow, - Twice M.D. 09/16 Daily Fentanyl 08/11 Hx Patches 100mcg/HR 10units place one G89.4 Veronica 72HR patch Amaris, - every 3 [place] [employer] Hydromorphone 06/30 Hx Tablets 2mg Veronica HCL Amaris, - [employer] 06/30 Dilaudid 06/30 Hx Tablets 2mg 30tabs 1 po Veronica twice Amaris, - daily as [place] 08/11 needed for severe pain caution: sedation, alcohol Breo Ellipta 02/27 Hx Aerosol 100-25mcg 3units 1 puff Veronica /2014 /Inh daily Amaris, - [employer] 01/02 Hydrocodone-Acet 01/11 Hx Tablets 10-325mg 120tabs 1 by G89.4 Veronica aminophen /2014 mouth Amaris, - every 6 [place] [employer] / hours pain Hydrocodone 01/09 Hx Tablets 10-300mg 90tabs Veronica Bitartrate/Aceta Amaris, minophen - [place] 01/11 Venlafaxine HCL 10/27 Hx Caps ER 37.5mg 30caps 1 by 782.62 Veronica ER 24HR mouth Amaris, - every day [place] [employer] 02/27 Symbicort 10/10 Hx Aerosol 160-4.5mc sample 2 puffs Manas A. g/Act once a Darlow, - day M.D. 02/27 Biaxin 10/04 Hx Tablets 500mg 20tabs take one 465.9 Veronica tablet by Amaris, - mouth [place] 01/09 twice a day x 10 days finish all medicatio n Benzonatate 10/04 Hx Capsules 200mg 30caps 1 three 786.2 Veronica /2015 times a Amaris, - day as [place] [employer] 01/09 needed cough Nebulizer Set Up 10/04 Hx 1units dispense 786.2 Veronica And one Amaris, - machine [place] [employer] 01/02 nebulizer Ipratropium 10/04 Hx Solution 0.5-2.5(3 180ml inhale 1 R05 Veronica Mayflower/Albutero )mg/3ML three Amaris, l Sulfate - times a [place] [employer] 09/16 day x weeks Nabumetone 09/08 Hx Tablets 500mg 180tabs Take 1 Tablet Amaris, - Twice [place] 08/14 Daily Cyclobenzaprine 09/05 Hx Tablets 5mg 180tabs one to M79.1 Veronica two Amaris, - tablet [place] [employer] 01/02 night at bedtime as needed Amoxicillin 09/05 Hx Tablets 500mg 21tabs 1 tab by 465.9 mouth Amaris, - three [place] [employer] 10/04 times day x 7 days samples Oxycodone-Acetam 08/08 Hx Tablets 10-325mg 200tabs 1-2 by mouth Amaris, - every 4 [place] [employer] 01/09 hours needed Prednisone 06/13 Hx Tablets 5mg 30tabs take 2 by 724.5 mouth Amaris, - twice a [place] 01/09 day x days, then take 1 by mouth three times a day x 3 days, then take 1 by mouth twice a day x 3 d Nabumetone 05/02 Hx Tablets 500mg 60tabs 1 po bid Amaris, - [employer] 09/05 Oxycodone/Acetam 05/02 Hx Tablets 10-325mg 50tabs 1-2 po Amaris, inophen q4hrs prn Veronica - DRUG REGULATORY AFFAIRS SPECIALIST-F 08/08 Oxycodone/Acetam /13 Hx Tablets 10-325mg 50tabs 1-2 po Amaris, inophen q4hrs prn Veronica, - DRUG REGULATORY AFFAIRS SPECIALIST-F 07/04 Oxycodone/Acetam 10/ Hx Tablets 10-325mg 50tabs 1-2 po Amaris, ino q4hrs prn Veronica, - DRUG REGULATORY AFFAIRS SPECIALIST-F 07/04 Oxycodone-Acetam 05/02 Hx Tablets 10-325mg 50tabs 1-2 po Veronica ino q4hrs prn Amaris, - [employer] 07/04 Ondansetron HCL 05/02 Hx Tablets 8mg 30tabs 1 every 8 787.02 Veronica hours prn Amaris, - nausea [employer] 05/02 Ondansetron HCL 05/02 Hx Tablets 8mg 50tabs 1 by R11.0 mouth Amaris, - every 8 [employer] 05 hours needed nausea Venlafaxine HCL 05/02 Hx Tablets 50mg 90tabs 1/2 tab 782.62 by mouth Amaris, - daily [employer] 05/02 Venlafaxine HCL 05/02 Hx Tablets ER 37.5mg 30tabs 1 by 782.62 Karlee ER 24HR mouth Gen, - daily [place] [employer] 10/27 Famotidine 04/14 Hx Tablets 40mg 60tabs 1 by 530.81 Manas A. mouth Darmax, - twice a M.D. Nizatidine 04/05 Hx Capsules 150mg 180caps take one 530.81 Manas capsule Darmax, - by mouth M.D. 04/14 twice day Clonidine HCL 02/28 Hx Tablets 0.1mg 90tabs take one tablet by Christiana, - mouth at M.D. 01/09 bedtime Sucralfate 02/14 Hx Tablets 1gm 270tabs 1 by 782.62 Manas A mouth Darlow, - three M.D. 05/02 times day Labs 01/06 Hx 24-hr 782.62 Manas urinary Darmax, - 5-hiaa M.D. 02/14 Urine serotonin Serum chromogra jessie A, b, C Vitamin B-12 06/19 Hx Tablets 1000mcg 1 po qd Manas [...] 2 Veronica /0000 Tablets Amaris, - Every [place] [employer] 11/27 Day, Alternati ng With Furosemid e Klor-Con M20 Hx Tablets ER 20Meq 90tabs Take 1 Brian J. /0000 Tablet Breiman, - Every Day M.D. 11/27 Furosemide Hx Tablets 80mg 45tabs Take 1 Veronica /0000 Tablet Amaris, - Every [place] 09/16 Day Alternati ng With Torsemide Vitamin [...] /0000 mg mouth Amaris, - every day [place] [employer] 08/20 Amitriptyline Hx Tablets 1mg 1 by [...] Sodium /0000 Tablet Amaris, - Every Day [place] [employer] 08/29 Ranexa Hx Tablets ER 500mg 1 po bid Unknown /0000 12HR - 03/16 Plavix Hx Tablets 75mg 1 by Unknown /0000 mouth - every day 02/04 Brilinta Hx Tablets 90mg 1 by Unknown /0000 mouth - twice a Fluticasone Hx Aerosol 500-50 1 puff Unknown Propionate/Salme /0000 daily terol - 03/16 Immunizations CPT Code Status Date Vaccine Lot # [id number] Given 04/10/2017 High-Dose, Influenza Virus Vacccine-fluzone 65 and [id number] 94315 Given 12/24/2016 Tdap Tetanus, W Pertussis [id number] 55224 Given 12/24/2016 Pneumococcal Conjugate Vacc-13 [id number] 86303 Given 04/10/2016 Influenza Vac, Quadrivalent, Slit Virus, Im [id number] 25525 Given 05/08/2015 Pneumococcal Immunization [id number] 71930 Given 05/08/2015 Influenza Vac, Quadrivalent, Slit Virus, Im [id number] Vital Signs Date Vital Result Comment 04/20/2018 BP Systolic 130 mmHg BP Diastolic [...] Test Date Test Result H/L Range Note Inr/Protime 04/12/2018 Inr 1.11 High 0.77-1.02 Laboratory test 04/12/2018 Partial Thrombo 30.3 seconds 26.0-36.3 finding Time PTT B-Type Natriuretic Peptide BNP 579 pg/mL High 1 Comp Metabolic Panel 04/12/2018 Sodium 134 mmol/L [...] Egfr Non- 26.0 >60 Egfr 31.5 >60 2 Laboratory test finding 04/12/2018 Magnesium 2.3 mg/dL 1.9-2.7 Troponin I 0.03 ng/mL <0.04 Lactic Acid 1.8 mmol/L 0.5-2.0 3 CBC Auto Diff 04/12/2018 White Blood Count [...] 7.4-10.4 Abs Neutrophils 15.8 10^3/uL High 1.5-7.7 Manual Differential 04/12/2018 Immature Granulocytes 26 % [...] Abs Basophils 0 10^3/uL 0-0.2 Anisocytosis 1+ Laboratory test finding 04/12/2018 Procalcitonin 77.5 ng/mL High <0.6 4 C Reactive Protein 269.22 mg/L High <8.01 Urinalysis Profile 04/12/2018 Urine Color Straw Urine Appearance Clear Urine Specific [place] 1.010 1.010-1.030 Urine pH 5 5-9 Urine Urobilinogen Negative Negative Urine Ketones Negative Negative Urine Protein 1+(30 mg/dL) Negative Urine Leukocytes Negative Negative Urine Blood Negative Negative Urine Nitrite Negative Negative Urine Bilirubin Negative Negative Urine Glucose Negative Negative CBC Auto Diff 04/06/2018 White Blood Count [...] 3.91 x10^3/UL 1.56-6.13 Lymph# 1.56 x10^3/UL 1.18-3.74 [place]# 0.43 x10^3/UL 0.24-0.82 Eos # 0.1 x10^3/UL 0.0-0.5 Baso # 0.03 x10^3/UL 0.01-0.08 Anna% 64.2 % 34.0-70.0 Lymph % 25.7 % 20.0-52.0 [place]% 7.1 % 5.0-12.0 Eos% 2.3 % 0.7-7.0 [...] Color Yellow Urine Appearance Clear Urine Specific [place] 1.015 1.010-1.030 Urine pH 6.0 5-9 Urine [...] PDF . Laboratory test finding 08/14/2016 PDF [id number] SEE IMAGE Ua - Non Micro (Fma) [...] 5.3 x10^3/UL 1.5-7.2 Lymph# 1.6 x10^3/UL 0.7-4.9 [place]# 0.2 x10^3/UL 0.1-0.9 Gran % 72.4 % 42.2-75.2 Lymph % 23.7 % 20.5-51.1 [place]% 3.9 % 1.7-9.3 Laboratory test finding 03/27/2016 [...] (Fish) Specimen Blood BCR/abl (Fish) Specimen Id [id number] BCR/abl (Fish) Order Date 27 Sep 2014 12:1 <SEE NOTE> 43 BCR/abl (Fish) Referral Reason anemia BCR/abl (Fish) Method See Comment 44 BCR/abl Results See Comment 45 BCR/abl (Fish) Interpretation See Comment 46 BCR/abl (Fish) Party Host See Comment 47 BCR/abl (Fish) Report Date 06 Oct 2014 08:2 <SEE NOTE> 48 Laboratory test finding 09/26/2014 [facility] Test see scanned CBC Auto Diff [...] 0.75-1.54 Laboratory test finding 07/04/2014 Hemoglobin A1c (Fma/CMC,CX) 5.3 % 4.1- 5.7 Brain Natural Peptide [...] Laboratory test finding 06/13/2014 Sed Rate 43mm (Fma/CMC/Centrex) Complete Blood Count 06/06/2014 WBC 6.1 x10^3/UL [...] 4.3 x10^3/UL 1.5-7.2 Lymph# 1.6 x10^3/UL 0.7-4.9 [place]# 0.2 x10^3/UL 0.1-0.9 Gran % 69.6 % 42.2-75.2 Lymph % 26.7 % 20.5-51.1 [place]% 3.7 % 1.7-9.3 Laboratory test finding 06/06/2014 [...] Rate (Fma/CMC/Centrex) 28mm Laboratory test finding 04/06/2014 [facility] Test see scannned Laboratory test finding 01/20/2014 [facility] Test 5-hiaa qt 24hr Uric Acid 24HR Urine 12/15/2013 Urine Random Uric Acid 24.0 mg/dL Urine Uric Acid/24HR 144.0 mg/24Hr Low 250-750 Urine Collection Time 24 Urine Total Volume 600 mL Laboratory test finding 12/09/2013 [facility] Test bun/creat Laboratory test finding 2013 TSH 1.27 mIU/L 0.50-6.00 Uric Acid 6.5 mg/dL 2.5-9.2 1 >100 to <200 pg/mL: likely compensated congestive heart failure (CHF) 200 to 400 pg/mL: likely moderate CHF >400 pg/mL: likely moderate to severe CHF 2 Because ethnic data is not always [...] 5 Kidney failure <15 (or dialysis) 3 [facility] Severe Sepsis and Septic Shock Management Bundle Measure requires all lactic acids initially measuring >2.0 mmol/L be repeated. 4 Interpretive information available on [employer] Lab Test Catalog at [email or web address] 5 RESULTS VERIFIED BY REPEAT ANALYSIS 6 [...] <15 (or dialysis) 8 SEE RESULTS BELOW [id number] ON PC TRANSFUSED 01/31/18 1939 [id number] BN PC TRANSFUSED 02/01/18 1047 [id number] BN PC TRANSFUSED 01/31/18 1240 9 Because [...] 5 Kidney failure <15 (or dialysis) 10 [facility] Severe Sepsis and Septic Shock Management [...] [address]: Manas Villeda MD Acct: [id number] Unit: [id number] AGE: 76 Location: [facility] Re09/22/17 SEX: F Status: REG REF SPEC: [id number] OSCAR: 09/22/[address]: Manas Villeda MD REQ: [id number] RECD: 09/22/17 STATUS: COMP _ SOURCE: URINE SPDESC: ORDERED: Urine Culture COMMENTS: [id number] kemp urine top Procedure Result Reported Site Urine Culture Final 09/24/17723 ML Organism 1 KLEBSIELLA PNEUMONIAE [place] Count >100,000 (Many) CFU/ML 1. KLEBSIELLA PNEUMONIAE [...] . END OF REPORT DEPARTMENT OF PATHOLOGY, [address] [place] [address] Ramos Durand M.D. Director [facility] # [id number] 14 Normal Range 180 to 914 Indeterminate Range 145 to 180 Deficient Range <145 15 Test Performed by: [facility] [place] [address] 16 >100 to <200 pg/mL: likely compensated [...] - FDP greater than 20 ug/ml 18 [facility] Severe Sepsis and Septic Shock Management [...] 21 99th percentile=0.04 ng/mL Troponin results at [facility] are not interchangeable. 22 [facility] Severe Sepsis and Septic Shock Management [...] 26 99th percentile=0.04 ng/mL Troponin results at [facility] and [facility] are not interchangeable. 27 Critical Result LACT:2.2 Called to [id number] at: 22:40:14 by:[id number] Read back by:[id number] [place] Severe Sepsis and Septic Shock Management Bundle [...] (or dialysis) 29 Result TnIDx:0.05 Called to [id number] at: 22:42:43 by:[email or web address] Read back by: [id number] 99th percentile=0.04 ng/mL Troponin results at [facility] and [facility] are not interchangeable. 30 Please note: [...] assay has been determined at 0.01% (see [facility] [employer] Interpretive Handbook for method details). Laboratory developed test. PDF Report available at: [email or web address] Test Performed by: [address] [address] Bean Viner: Foreign Bee II, M.D., Ph.D. 43 27 [...] developed and its performance characteristics determined by [facility]. It has not been cleared or approved by the U.S. Food and Drug Administration. This FISH test does not rule out other chromosome abnormalities. 47 RESULT: Brian Dietrich MD, PhD 48 06 Oct 2014 08:23 Test Performed by: [facility] [place] [address] Bean Viner: Foreign Bee II, M.D., Ph.D. 49 Negative [...] ANALYSIS Procedures Date CPT Code Description Status 01/20/2017 Mammogram Completed 10/22/2016 94323 Pulse Oximetry Completed 10/08/2016 46356 Pulse Oximetry Completed 06/07/2016 46329 Pulse Oximetry Completed 04/26/2016 11772 Pulse Oximetry Completed 03/27/2016 76697 Pulse Oximetry Completed 02/07/2016 44760 Pulse Oximetry Completed 07/27/2015 Mammogram Completed 06/30/2015 23463 Pulse Oximetry Completed 10/10/2014 59370 Pulse Oximetry Completed 10/04/2014 93432 Nebulizer Treatment Completed 05/20/2014 Mammogram Completed 09/18/2013 Colonoscopy Completed Encounters Type Date Location Provider CPT E/M Dx Office Visit 03/16/2018 2:30p [facility] Office Manas Villeda M.D. 11047 Z01.818 H25.13 I25.119 E03.9 I10 N18.4 K21.9 J45.998 S35.511S D50.0 G25.81 I48.0 G89.4 Office Visit 02/05/2018 11:00a [facility] Office Veronica Glez, [facility] [address] R07.89 I20.0 R51 G89.4 M79.604 Office Visit 01/16/2018 11:00a [facility] Office Veronica Jarrettbhart, [facility] [address] M25.562 M53.3 R07.89 I20.0 R51 G89.4 Office Visit 09/24/2017 4:00p [facility] Office Veronica Jarrettbhart, [facility] [address] R21 W01.0xxA R07.89 R06.02 G89.4 K59.01 N39.42 G47.00 R60.0 Office Visit 08/29/2017 10:00a [facility] Office Veronica Glez, [facility] [address] J01.90 R05 K21.9 G89.4 R06.02 M15.0 I20.9 E03.9 Office Visit 06/10/2017 3:30p Main Office Veronica Jarrettbhart, [facility] [address] M79.672 R29.6 R53.1 R51 Office Visit 05/07/2017 4:15p [facility] Office Veronica Jarrettbhart, [facility] [address] R51 D64.9 R53.1 W17.89xA J44.9 K21.9 R13.10 G89.4 Office Visit 04/10/2017 2:30p Main Office Veronica Jarrettcarmen [facility] [address] Z23 M79.652 M79.651 N95.0 G89.4 D64.9 Office Visit 02/28/2017 2:00p [facility] Office Veronica Glez, [facility] [address] N95.0 R51 R06.02 G89.4 D64.9 Office Visit 12/24/2016 2:00p [facility] Office Veronica Glez, [facility] [address] Z23 R51 R60.0 I48.91 G89.4 R06.02 K21.9 Office Visit 11/28/2016 3:45p Main Office Veronica Glez, [facility] [address] R51 I48.91 K25.7 G89.4 M79.644 Office Visit 11/08/2016 1:00p [facility] Office Veronica Glez, [facility] [address] K25.7 I48.91 R51 M79.644 M15.0 D64.9 G89.4 Office Visit 10/22/2016 4:00p [facility] Office Veronica Glez, [facility] [address] R51 I48.91 R05 R06.02 R09.02 R11.10 Office Visit 10/08/2016 3:00p [facility] Office Veronica Glez, [facility] [address] R51 I48.91 R05 G89.4 M15.0 R06.02 Office Visit 09/16/2016 3:00p [facility] Office Veronica Glez, [facility] [address] R51 G89.4 M15.0 D64.9 Office Visit 08/14/2016 3:30p [facility] Office Veronica Glez, [facility] [address] R51 M15.0 R09.02 G89.4 R31.9 D64.9 Office Visit 06/07/2016 11:00a [facility] Office Veronica Glez, [facility] [address] J01.90 R51 R53.82 M79.7 M15.0 Office Visit 04/26/2016 3:00p [facility] Office Veronica Glez, [facility] [address] R51 R53.82 M79.7 M15.0 R09.02 D50.9 Office Visit 04/10/2016 2:00p [facility] Office Veronica Glez, [facility] [address] R53.82 M79.7 M15.0 R09.02 D50.9 J44.9 G47.62 Z23 Office Visit 03/27/2016 3:20p [facility] Office Manas Villeda M.D. 03403 R51 R53.82 E03.9 Office Visit 02/07/2016 3:30p [facility] Office Veronica Glez, [facility] [address] I10 E03.9 M79.7 K21.9 G25.81 M15.0 G89.4 R09.02 Office Visit 01/03/2016 3:40p [facility] Office Manas Villeda M.D. 82730 I10 E03.9 M79.7 K21.9 G25.81 M15.0 J45.998 G89.4 R51 Office Visit 09/06/2015 4:30p [facility] Office Veronica Glez, [facility] [address] G89.4 M79.1 M15.0 Office Visit 08/11/2015 1:00p [facility] Office Veronica Glez, [facility] [address] G89.4 M79.1 M15.0 Office Visit 06/30/2015 2:00p [facility] Office Veronica Glez, [facility] [address] M15.0 D53.9 M79.1 G89.4 Office Visit 02/27/2015 2:30p [facility] Office Veronica Glez, [facility] [address] 715.09 281.9 729.1 782.3 338.4 Office Visit 01/09/2015 10:30a [facility] Office Veronica Glez, [facility] [address] 274.00 715.09 281.9 729.1 244.9 724.5 Office Visit 11/29/2014 11:45a [facility] Office Veronica Glez, [facility] [address] 333.94 715.00 724.5 285.9 786.2 Office Visit 10/10/2014 11:20a [facility] Office Manas Villeda M.D. 23898 401.9 493.90 244.9 729.1 530.81 333.94 715.00 285.9 786.50 Office Visit 10/04/2014 2:00p [facility] Office Veronica Glez [facility] [address] 465.9 786.2 Office Visit 09/05/2014 3:00p [facility] Office Veronica Glez, [facility] [address] 729.82 465.9 Office Visit 08/08/2014 3:00p [facility] Office Veronica Glez [facility] [address] 724.5 281.9 729.1 719.47 244.9 Office Visit 07/04/2014 1:15p [facility] Office Veronica Glez [facility] [address] 790.21 724.5 281.9 782.3 Office Visit 06/13/2014 4:00p [facility] Office Veronica Glez, [facility] [address] 729.1 274.00 715.09 281.9 Office Visit 06/06/2014 3:00p [facility] Office Veronica Glez [place] [address] 782.62 530.81 729.1 Office Visit 05/02/2014 1:15p [facility] Office Veronica Jarrettbhart [facility] [address] 782.62 530.81 787.02 Office Visit 02/14/2014 2:20p [facility] Office Manas Villeda M.D. 26134 782.62 Office Visit 01/06/2014 7:00p [facility] Office Manas Villeda M.D. 62494 782.62 Office Visit 2013 8:30a [facility] Office Manas Villeda M.D. [id number] 244.9 274.00 333.94 493.90 782.3 715.09 729.1 530.81 Plan of Care Future Appointment(s):05/15/2018 3:30 pm - VY Russell at [facility] Igmivt1904/20/2018 - Brian Vazquez MDJ18.1 Lobar pneumonia, unspecified [id number] Chronic obstructive pulmonary disease, unspecifiedFollow up:2-3 weeks with Monalisa to see how the home PT is helping and if the lungs have returned to baseline. Also to gauge advanced care planning with family.G89.4 Chronic pain syndromeAllNew Medication:Tessalon Perles 100 mgComments:~B_~U_Medication Management~b_~u_ Patient Understands medications she's taking? Yes No Are there Barriers to Adherence? Yes No Has the patient been asked about herbal supplements and therapies, and OTC meds? Yes No
[2018-05-20] MEDS ORDERED: HYDROcodone/ACETAMIN 5-325 MG* 1 TAB PO ONE ×2 (16:22→20:38)
[2018-05-20 16:42] LABS: ABS Basophils 0 10^3/ul (0-0.2); ABS Eosinophils 0.2 10^3/ul (0-0.6); ABS Lymphocytes 1.6 10^3/ul (1.0-4.8); ABS Monocytes 0.5 10^3/ul (0-0.8); ABS Neutrophils 3.7 10^3/ul (1.5-7.7); ABS Nucleated RBC 0 10^3/ul; Eosinophil % 3.3 % (0-6); Hematocrit 27 % (35-47); Hemoglobin 9.3 g/dl (12.0-16.0); Lymphocyte % 27.1 % (25-47); Mean Corpuscular HGB Conc 34 g/dl (31-36); Mean Corpuscular Hemoglobin 34 pg (27-31); Mean Corpuscular Volume 99 fL (80-97); Mean Platelet Volume 6.7 um3 (7.4-10.4); Nucleated Red Blood Cells % 0; Platelet Count 174 10^3/ul (150-450); Red Blood Count 2.77 10^6/ul (4.00-5.40); Red Cell Distribution Width 13 % (10.5-15)
[2018-05-20 16:52] LABS: INR 0.97 (0.77-1.02)
[2018-05-20 17:01] LABS: EGFR Non-African American 39.6 (>60)
--- NOTE | 2018-05-20 17:38 | ED ---
HPI Chest Pain - HPI Summary HPI Summary: This patient is a 77 year old F [facility] by her with a chief complaint of decreasing hemoglobin with "angina attacks" x [address] 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 Pt notes that she is still coughing after pneumonia 3-4 weeks ago. She describes "angina attacks" over the past 4 days, which start as a headache, travel to her mouth and arms and into her chest. She states she had 3 yesterday relieved by NTG within "10 minutes or more ". She has not had any "angina attacks" today. She denies fever, (hemat)emesis , and melena. She states the "angina attacks" that include SANZ, nausea, and pain radiation to head, mouth, arms, and hands and chest is a "tightness", and that she has been suffering intermittently with these "angina attacks" for 3 years. She notes the angina attacks start with SANZ. PMHx fibromyalgia, ID 09/2016, Afib, angina, anemia. SHx stent, heart catheterization: 3 stenotic arteries 01/2018. Pt also relates that the "angina attacks", especially the headache, start with low hgb count and are worse with lower hgb. She states she had transfusion of 7 units of blood over 2 stays in January 2018 when her hgb was 6 after a cardiac catheterization and a significant hematoma. She was evaluated by Dr. Romero at that time for anemia, and had a bone marrow done. She does not have a cancer, and did not have GI bleeding as cause of the low Hgb. She does have CKD stage 3 and is on iron supplementation. She had a drug eluting stent placed after an NSTEMI in January 2018, and had a stress test as an outpatient Mar 2018 showing normal perfusion. BP 172/85 in room. Takes 10/325 hydrocodone for chronic fibromyalgia pain. - History of Current Complaint Chief Complaint: EDChestPainROMI Time Seen by Provider: 05/20/18 14:01 Hx Obtained From: Patient, Medical Records - [facility] admissions 01/2018 and 03/2018 Onset/Duration: Started Days Ago Timing: Intermittent Initial Severity: Moderate Current Severity: Severe Pain Intensity: 8 - headache, no chest pain Pain Scale Used: 0-10 Numeric Chest Pain Location: Mid Sternal - when present, not today Chest Pain Radiates: Yes Chest Pain Radiates To:: Arm, Jaw, Neck, Other - mouth, head Character: Cough, Productive, Pressure/Squeezing Aggravating Factor(s): Exertion Alleviating Factor(s): Rest Associated Signs and Symptoms: Positive: Chest Pain, Headaches, Shortness of Breath, Nausea, Productive Cough. Negative: Fever, Vomiting Related History: Similar Episode/Dx as: - PMHx angina, Obesity - Additional Pertinent History Primary Care Physician: [id number] - Allergy/Home Medications Allergies/Adverse Reactions: Allergies Allergy/AdvReac Type Severity Reaction Status Date / Time atorvastatin [From Lipitor] Allergy Unknown Verified 05/21/18 16:11 Reaction Details imipramine Allergy Unknown Verified 05/21/18 16:11 Reaction Details Iodinated Contrast- Oral and Allergy Unknown Verified 05/21/18 16:11 IV Dye Reaction Details misoprostol [From Cytotec] Allergy Unknown Verified 05/21/18 16:11 Reaction Details naproxen Allergy Unknown Verified 05/21/18 16:11 Reaction Details nitrofurantoin Allergy Unknown Verified 05/21/18 16:11 Reaction Details theophylline [From Uniphyl] Allergy Unknown Verified 05/21/18 16:11 Reaction Details tiagabine [From Gabitril] Allergy Unknown Verified 05/21/18 16:11 Reaction Details tizanidine Allergy Unknown Verified 05/21/18 16:11 Reaction Details fentanyl AdvReac Dizziness Verified 05/21/18 16:11 Ehnwctu-Hzo-Hdo Reductase AdvReac Vomiting Verified 05/21/18 16:11 Inhibitor Home Medications: Home Medications Acetaminophen TAB* [Tylenol TAB*] 650 mg PO TID PRN 05/20/18 [History Confirmed 05/20/18] Amiodarone TAB* [Cordarone TAB*] 200 mg PO DAILY 05/20/18 [History Confirmed ] Aspirin EC TAB* [Ecotrin EC Low Dose 81 MG*] 81 mg PO DAILY 05/20/18 [History Confirmed 05/20/18] Calcium Carb,Gluc/Mag Ox,Gluc [Calcium Magnesium Caplet] 1 tab PO DAILY [History Confirmed 05/20/18] Cholecalciferol TAB* [Vitamin D TAB*] 2,000 units PO DAILY 05/20/18 [History Confirmed 05/20/18] Docusate CAP* [Colace Cap*] 100 mg PO BID PRN 05/20/18 [History Confirmed ] Evolocumab [Repatha Sureclick] 140 mg SUBCUT Q14D 05/20/18 [History Confirmed ] Ezetimibe TAB* [Zetia TAB*] 10 mg PO DAILY 05/20/18 [History Confirmed 05/20/18] Ferrous Sulfate TAB* 325 mg PO DAILY 05/20/18 [History Confirmed 05/20/18] Fluticasone HFA 110 mcg(NF) [Flovent HFA 110 mcg(NF)] 1 puff INH BID 05/20/18 [ History Confirmed 05/20/18] Hydrocodone/Acetamin 10325(NF [[place] 325 (NF)] 1 - 2 tab PO Q6H PRN [History Confirmed 05/20/18] Isosorbide Mononitrate ER TAB* [Imdur ER TAB*] 120 mg PO DAILY 05/20/18 [ History Confirmed 05/20/18] LevoCETirizine TAB (NF) [Xyzal TAB (NF)] 5 mg PO DAILY 05/20/18 [History Confirmed 05/20/18] Levothyroxine TAB* [Synthroid TAB*] 175 mcg PO DAILY 05/20/18 [History Confirmed 05/20/18] Melatonin 10 mg PO BEDTIME 05/20/18 [History Confirmed 05/20/18] Metoprolol Succinate XL TAB* [Toprol XL TAB*] 25 mg PO BID 05/20/18 [History Confirmed 05/20/18] Multivitamin with Folic Acid [One Daily Essential Tablet] 400 mcg PO DAILY 05/20 [History Confirmed 05/20/18] Omeprazole CAP* [Prilosec CAP* 20 MG] 40 mg PO DAILY 05/20/18 [History Confirmed 05/20/18] Pramipexole TAB* [Mirapex TAB*] 2 mg PO BEDTIME 05/20/18 [History Confirmed ] Primidone TAB(*) [Mysoline TAB(*)] 150 mg PO BEDTIME 05/20/18 [History Confirmed 05/20/18] Ranitidine TAB (NF) [Zantac TAB (NF)] 150 mg PO QPM 05/20/18 [History Confirmed 05/20/18] Sennosides/Docusate Sodium [Senna-S Tablet] 1 tab PO BID 05/20/18 [History Confirmed 05/20/18] Shark Cartilage [Shark Fin Cartilage] 1,000 mg PO TID 05/20/18 [History Confirmed 05/20/18] Torsemide TAB* [Demadex*] 10 mg PO DAILY 05/20/18 [History Confirmed 05/20/18] Triamcinolone NASAL SPRAY* [Nasacort AQ Nasal [place]*] 2 spray BOTH NARES BID [History Confirmed 05/20/18] Venlafaxine EXT RELEASE CAP* [Effexor Xr CAP*] 37.5 mg PO BEDTIME 05/20/18 [ History Confirmed 05/20/18] amLODIPine TAB* [Norvasc 5 mg TAB*] 5 mg PO DAILY 05/20/18 [History Confirmed ] PMH/Surg Hx/FS Hx/Imm Hx Previously Healthy: No Endocrine/Hematology History: Reports: Hx Thyroid Disease - ON DAILY MEDS, Hx Anemia - ON DAILY IRON, 01/2018 WHILE HOSPITALIZED RECEIVED 7 UNITS BLOOD Denies: Hx Diabetes Cardiovascular History: Reports: Hx Angina, Hx Atrial Fibrillation, Hx Congestive Heart Failure, Hx Coronary Artery Disease, Hx Hypercholesterolemia, Hx Hypertension - on daily meds Denies: Hx Myocardial Infarction, Hx Pacemaker/ICD, Hx Valvular Heart Disease Respiratory History: Reports: Hx Asthma - on daily & prn inhalers, Hx Pneumonia , Hx Sleep Apnea Denies: Hx Chronic Obstructive Pulmonary Disease (COPD) GI History: Reports: Hx Gastroesophageal Reflux Disease - ON DAILY MEDS, Hx Gastrointestinal Bleed, Hx Hiatal Hernia, Hx Ulcer - CURED WITH MEDS 2016 History: Reports: Hx Renal Disease - stage 3 CKD, Other Problems/ Disorders - Tx BY DR ALICIA ALCOCER IN [place] Denies: Hx Dialysis Musculoskeletal History: Reports: Hx Arthritis - STATES ALL OVER STATES NECK TO TOES, Hx Back Problems, Hx Fibromyalgia, Hx Orthopedic Injury Sensory History: Reports: Hx Cataracts - BILATERAL, Hx Hearing Aid - R side only , WILL WEAR DAY OF SURGERY & HAVE CASE, Hx Hearing Problem Denies: Hx Contacts or Glasses Opthamlomology History: Reports: Hx Cataracts - BILATERAL Denies: Hx Contacts or Glasses Neurological History: Reports: Hx Headaches - with chest pain gets severe headaches Denies: Hx Dementia, Hx Seizures Psychiatric History: Reports: Other Psychiatric Issues/Disorders - claustrophobia Denies: Hx Panic Disorder - Surgical History Surgery Procedure, Year, and Place: 2008 FUSION LOW BACK. TSP -LSP [place] RODS/SCREWS 2004-- 2010 -TOTAL OF 5 SURGERIES LAST ONE 2010 Xs 2. 2006BILATERAL HIP REPLACEMENT. 06/2003 LEFT HEEL TARSAL TUNNEL -. 12/2004 WART -REMOVED FROM EYELID. 2002 CARPAL TUNNEL - [place]. 2002 Lt KNEE -2 & 2005 09/2002 & 01/2003 Rt KNEE - 3 TIMES - ARTHROSCOPIC. 2007 RIGHT BREAST LUMPECTOMY. 1999 CHOLECYSTECTOMY. TONSILECTOMY- as child. UMBILICAL HERNIA REPAIR. 2008 APPENDECTOMY. 06/2005 [place] BREAST REDUCTION. Lt THUMB - GANGLION CYST. T2007 LEFT TOTAL HIP. Rt ARM - "LUMP" REMOVED-. 2005 RT HIP TOTAL REPLACEMENT. 01/2018 CARDIAC STENT Hx Anesthesia Reactions: Yes - ALWAYS RECEIVES ANTI NAUSEA MEDS PRE-OP - Immunization History Date of Influenza Vaccine: 05/15/18 Infectious Disease History: No Infectious Disease History: Denies: Hx Clostridium Difficile, Hx Hepatitis, Hx of Known/Suspected MRSA, Traveled Outside the [place] in Last 30 Days - Family History Known Family History: Positive: Cardiac Disease - Father used to use NTG. 3 brothers have had CABG. 4th had CVA and ID., Diabetes - Social History Occupation: Retired Lives: With Family Alcohol Use: Rare Alcohol Amount: reports only a couple of drinks 4 times per year Hx Substance Use: No Substance Use Type: Reports: None Hx Tobacco Use: No Smoking Status (MU): Never Smoked Tobacco Have You Smoked in the Last Year: No Review of Systems Negative: Fever Positive: Chest Pain - pressure Positive: Shortness Of Breath, Cough - productive Positive: Nausea. Negative: Vomiting, Other - melena Positive: no symptoms reported Positive: Myalgia - neck, mouth, jaw, arms, hands pain radiation, Edema Skin: Negative Positive: Headache - top of head Psychological: Normal All Other Systems Reviewed And Are Negative: Yes Physical Exam - Summary Physical Exam Summary: Appearance: ill-appearing, moderate pain distress, obese Skin: Warm, color reflects adequate perfusion, dry Head: Normal Head/Face inspection, atraumatic Eyes: Conjunctiva clear ENT: Normal inspection Neck: Supple, no nodes, no JVD Respiratory: Lungs decreased breath sounds bilaterally Cardio: RRR, No murmur, pulses normal, brisk capillary refill Abdomen: Soft, nontender Bowel sounds: Present Musculoskeletal: Strength Intact/ROM intact, no calf tenderness, bilateral 1+ edema, wearing compression stockings. 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 Agnes: external hemorrhoids, soft stool, brown, guaiac negative, no masses Triage Information Reviewed: Yes Vital Signs On Initial Exam: Initial Vitals Temp Pulse Resp BP Pulse Ox 97.8 F 60 20 168/58 98 05/20/18 13:22 05/20/18 13:22 05/20/18 13:22 05/20/18 13:22 05/20/18 13:22 Vital Signs Reviewed: Yes Diagnostics - Vital Signs Vital Signs Temp Pulse Resp BP Pulse Ox 05/20/18 16:35 58 15 152/90 96 05/20/18 16:15 62 18 172/85 95 05/20/18 16:00 60 13 96 05/20/18 15:45 63 19 183/84 97 05/20/18 15:44 64 15 96 05/20/18 13:22 97.8 F 60 20 168/58 98 - Laboratory Lab Results: Lab Results 05/20/18 05/20/18 05/20/18 Range/Units 16:32 16:32 16:32 WBC 6.0 (3.5-10.8) 10^3/ul RBC 2.77 L (4.00-5.40) 10^6/ul Hgb 9.3 L (12.0-16.0) g/dl Hct 27 L (35-47) % MCV 99 H (80-97) fL MCH 34 H (27-31) pg MCHC 34 (31-36) g/dl RDW 13 (10.5-15) % Plt Count 174 (150-450) 10^3/ul MPV 6.7 L (7.4-10.4) um3 Neut % (Auto) 60.4 (38-83) % Lymph % (Auto) 27.1 (25-47) % [place] % (Auto) 8.6 H (0-7) % Eos % (Auto) 3.3 (0-6) % Baso % (Auto) 0.6 (0-2) % Absolute Neuts (auto) 3.7 (1.5-7.7) 10^3/ul Absolute Lymphs (auto) 1.6 (1.0-4.8) 10^3/ul Absolute Monos (auto) 0.5 (0-0.8) 10^3/ul Absolute Eos (auto) 0.2 (0-0.6) 10^3/ul Absolute Basos (auto) 0 (0-0.2) 10^3/ul Absolute Nucleated RBC 0 10^3/ul Nucleated RBC % 0 INR (Anticoag Therapy) (0.77-1.02) APTT (26.0-36.3) seconds D-Dimer, Quantitative (Less Than 230) ng/mL Sodium 138 (135-145) mmol/L Potassium 4.5 (3.5-5.0) mmol/L Chloride 106 (101-111) mmol/L Carbon Dioxide 28 (22-32) mmol/L Anion Gap 4 (2-11) mmol/L BUN 32 H (6-24) mg/dL Creatinine 1.30 H (0.51-0.95) mg/dL Est GFR ( Amer) 47.9 (>60) Est GFR (Non-Af Amer) 39.6 (>60) BUN/Creatinine Ratio 24.6 H (8-20) Glucose 101 H (70-100) mg/dL Lactic Acid 0.8 (0.5-2.0) mmol/L Calcium 9.2 (8.6-10.3) mg/dL Magnesium 2.0 (1.9-2.7) mg/dL Total Bilirubin 0.30 (0.2-1.0) mg/dL AST 17 (13-39) U/L ALT 10 (7-52) U/L Alkaline Phosphatase 77 (34-104) U/L Total Creatine Kinase 44 (10-223) U/L CK-MB (CK-2) 1.1 (0.6-6.3) ng/mL Troponin I 0.01 (<0.04) ng/mL B-Natriuretic Peptide ( - 100) pg/mL Total Protein 6.5 (6.4-8.9) g/dL Albumin 3.6 (3.2-5.2) g/dL Globulin 2.9 (2-4) g/dL Albumin/Globulin Ratio 1.2 (1-3) TSH Pending Thyroxine (T4) Pending Blood Type Antibody Screen Antibody Identification Direct Antiglob Test 05/20/18 05/20/18 05/20/18 Range/Units 16:32 16:32 16:32 WBC (3.5-10.8) 10^3/ul RBC (4.00-5.40) 10^6/ul Hgb (12.0-16.0) g/dl Hct (35-47) % MCV (80-97) fL MCH (27-31) pg MCHC (31-36) g/dl RDW (10.5-15) % Plt Count (150-450) 10^3/ul MPV (7.4-10.4) um3 Neut % (Auto) (38-83) % Lymph % (Auto) (25-47) % [place] % (Auto) (0-7) % Eos % (Auto) (0-6) % Baso % (Auto) (0-2) % Absolute Neuts (auto) (1.5-7.7) 10^3/ul Absolute Lymphs (auto) (1.0-4.8) 10^3/ul Absolute Monos (auto) (0-0.8) 10^3/ul Absolute Eos (auto) (0-0.6) 10^3/ul Absolute Basos (auto) (0-0.2) 10^3/ul Absolute Nucleated RBC 10^3/ul Nucleated RBC % INR (Anticoag Therapy) 0.97 (0.77-1.02) APTT 24.8 L (26.0-36.3) seconds D-Dimer, Quantitative 314 H (Less Than 230) ng/mL Sodium (135-145) mmol/L Potassium (3.5-5.0) mmol/L Chloride (101-111) mmol/L Carbon Dioxide (22-32) mmol/L Anion Gap (2-11) mmol/L BUN (6-24) mg/dL Creatinine (0.51-0.95) mg/dL Est GFR ( Amer) (>60) Est GFR (Non-Af Amer) (>60) BUN/Creatinine Ratio (8-20) Glucose (70-100) mg/dL Lactic Acid (0.5-2.0) mmol/L Calcium (8.6-10.3) mg/dL Magnesium (1.9-2.7) mg/dL Total Bilirubin (0.2-1.0) mg/dL AST (13-39) U/L ALT (7-52) U/L Alkaline Phosphatase (34-104) U/L Total Creatine Kinase (10-223) U/L CK-MB (CK-2) (0.6-6.3) ng/mL Troponin I (<0.04) ng/mL B-Natriuretic Peptide 394 H ( - 100) pg/mL Total Protein (6.4-8.9) g/dL Albumin (3.2-5.2) g/dL Globulin (2-4) g/dL Albumin/Globulin Ratio (1-3) TSH Thyroxine (T4) Blood Type B Negative Antibody Screen Positive Antibody Identification Pending Direct Antiglob Test Pending Result Diagrams: 05/20/18 18:21 05/20/18 16:32 Lab Statement: Any lab studies that have been ordered have been reviewed, and results considered in the medical decision making process. - Radiology CXR Radiology Interpretation Completed By: Radiologist Summary of Radiographic Findings: While the exam is limited due to hypoventilation for this patient compared with the prior exam the constellation of findings favors pulmonary vascular congestion and interstitial edema. Dr. Warner has reviewed this report. - EKG 1351 Cardiac Rate: NL - 68 EKG Rhythm: Sinus Rhythm ST Segment: Non-Specific Ectopy: None EKG Comparison: No Significant Change - from 04/13/18 Summary of EKG Findings: Nl AVCT, prolonged IVCT (non-specific, 115), nl QTc, nl axis 1635 Cardiac Rate: NL - 62 EKG Rhythm: Sinus Rhythm ST Segment: Non-Specific Ectopy: None EKG Comparison: No Significant Change - from 1351 05/20/18. Summary of EKG Findings: Prolonged AVCT (215), prolonged IVCT (non-specific, 107 ), nl QTc. Re-Evaluation - Re-Evaluation First Eval Re-Evaluation Time: 18:14 Change: Unchanged Comment: Angina described as pressure "something's sitting on it", last experienced last night. Experienced it yesterday (05/19/18) AM, yesterday after lunch, and yesterday at 1930 (often with SOB), none today. Rx NTG and it was relieving the sx within 10-15 minutes. She still endorses severe SANZ with no alleviation from hydrocodone. denies current SOB. Second Eval Re-Evaluation Time: 19:50 Change: Unchanged Comment: Discussed hospitalist recommending discharge. 185/85, pulse ox 96, RR 20, pulse 86. Third Eval Re-Evaluation Time: 20:04 Change: Worse Comment: BP 207/102, SANZ on top of head is usual, no CP, pulse 70, O2 sat 95. Will give hydrocodone and amlodipine. Chest Pain Course/Dx - Course Course Of Treatment: A 77-year-old F presents to the ED with a CC of CP for 3 years, but has worsened significantly regarding the frequency over the past 4 days, with the worst sx yesterday, with 3 episodes of angina. (+) SOB, nausea, SANZ, pain radiation to arms, hands, neck, mouth. (-) emesis, melena, and fever. PMHx angina, ID, fibromyalgia, AFib, anemia. She notes her CP episodes tend to onset with anemic flare up/low HGB count. Pt had an NSTEMI in January 2018, then stent placement, and stress test with normal perfusion 03/2018. A CXR today reveals the exam is limited due to hypoventilation for this patient compared with the prior exam the constellation of findings favors pulmonary vascular congestion and interstitial edema. An EKG at 1351 reveals NSR at 68 with nl AVCT , prolonged IVCT (non-specific, 115), nl QTc, nl axis. Another EKG at 1635 shows NSR at 62 BPM with Prolonged AVCT (215), prolonged IVCT (non-specific, 107 ), nl QTc. In the ED course, pt was given norco 10/325 x 2 and amlodipine. Pt labs show low RBC, low H&H, high MCV, high MCH, low MPV, high mono %, low APTT, high D-dimer, high BUN, high creatinine, high BUN/creat ratio, high glucose, and high BNP (but BNP is less than it was in 03/2018). Pt had neg troponin x 2 and EKG unchanged x 2. Stool was guaiac neg. Hgb was stable 2 hrs apart in the ED and pt has not vomiting or evidence of GI bleed in the ED. HTN was in poor control, and treated with amlodipine. Pt was given hydrocodone 10/325mg (her usual) for headache and pain, with some relief. Consult with hospitalists, Dr. Holguin and Dr. Lopez both recommend discharge, and that pt would not be transfused unless Hgb is less than 7. - Chest Pain Differential Diagnosis/HQI/PQRI: Acute ID, ACS, Angina, CHF, GI Disease, Pulmonary Edema - Diagnoses Provider Diagnoses: Anemia, Chest pain, Chronic diastolic (congestive) heart failure, Chronic pain , CKD (chronic kidney disease), stage III, Hypertension, poor control, Cephalgia - Provider Notifications Discussed Care Of Patient With: Arnold Holguin Time Discussed With Above Provider: 18:10 Instructed by Provider To: Other - Will not transfuse with her bloodcount where it is right now, until less than Hgb 7. Recommends discharge. Discharge - Sign-Out/Discharge Documenting (check all that apply): Patient Departure - discharge - Discharge Plan Condition: Stable Disposition: HOME Patient Education Materials: Chest Pain (ED), Anemia (ED) Referrals: Manas Villeda MD [Primary Care Provider] - 1 Day Additional Instructions: Your hemoglobin has been stable while in the ER today and does not need transfusion at this time. Also you have two troponin levels evaluating the chest pain and they do not indicate any cardiac damage. Two EKG's are also without change. Your stool was guaiac negative. We have discussed your care with two hospitalists, Dr. Holguin and Dr. Lopez, and they both concur that you are able to be discharged with close follow up. You were given two [place] 5/325mg at 4:30pm, and again at 8:30pm. Your blood pressure started to climb when you were in the ER just prior to discharge and you were given amlodipine 5mg at 8:30pm also. Have definite follow up with Dr. Villeda tomorrow. Return to the ER if you have new or worsening symptoms. - Billing Disposition and Condition Condition: STABLE Disposition: Home - Attestation Statements Document Initiated by Navaibe: Yes Documenting Scribe: Felipe Mccallum Provider For Whom Arabella is Documenting (Include Credential): Dr. Dee Warner MD Scribe Attestation: IFelipe, scribed for Dr. Dee Warner MD on 05/25/18 at 1753. Scribe Documentation Reviewed: Yes Provider Attestation: The documentation as recorded by the Felipe schaffer accurately reflects the service I personally performed and the decisions made by me, Dr. Dee Warner MD Consult Consult: Dr. Lopez, 2005: pt had stress test 03/2018 and found normal profusion. OK with discharge.
--- NOTE | 2018-05-20 17:53 | RAD ---
Indication: Chest pain, shortness of breath. Recent pneumonia. Comparison: April 12, 2018 chest radiograph and January 24, [address] Technique: Upright AP 1723 hours Report: Suboptimal inspiration compared with the prior exam with resulting crowding of the pulmonary markings. Prominent interstitial markings similar to the prior exam. Grossly clear pleural spaces. Negative for pneumothorax. Cardiomegaly. Prominent mildly ill-defined central pulmonary vasculature with suggestion of cephalization similar to the prior exam. IMPRESSION: #. While the exam is limited due to hypoventilation for this patient compared with the prior exam the constellation of findings favors pulmonary vascular congestion and interstitial edema.
[2018-05-20 18:31] LABS: ABS Basophils 0 10^3/ul (0-0.2); ABS Eosinophils 0.2 10^3/ul (0-0.6); ABS Lymphocytes 1.6 10^3/ul (1.0-4.8); ABS Monocytes 0.5 10^3/ul (0-0.8); ABS Neutrophils 4.2 10^3/ul (1.5-7.7); ABS Nucleated RBC 0 10^3/ul; Eosinophil % 2.9 % (0-6); Hematocrit 27 % (35-47); Hemoglobin 9.3 g/dl (12.0-16.0); Lymphocyte % 24.2 % (25-47); Mean Corpuscular HGB Conc 35 g/dl (31-36); Mean Corpuscular Hemoglobin 34 pg (27-31); Mean Corpuscular Volume 98 fL (80-97); Mean Platelet Volume 6.8 um3 (7.4-10.4); Nucleated Red Blood Cells % 0.1; Platelet Count 174 10^3/ul (150-450); Red Cell Distribution Width 14 % (10.5-15); White Blood Count 6.4 10^3/ul (3.5-10.8)
[2018-05-20] MEDS ORDERED: amLODIPine TAB* 5 MG PO ONE (20:39)
[2018-05-20 21:34] VITALS: BP 190/107
== END 2018-05-20 21:34 | disposition home or self-care (01) ==
LOC: ED 13:04
DX: R07.9 Chest pain, unspecified (principal); D64.9 Anemia, unspecified; K21.9 Gastro-esophageal reflux disease without esophagitis; Z82.3 Family history of stroke; M79.7 Fibromyalgia; I25.2 Old myocardial infarction; I48.91 Unspecified atrial fibrillation; N18.3 Chronic kidney disease, stage 3 (moderate)
CPT/HCPCS: 36415; 71045; 80053; 82272; 82550; 82553; 83605; 83735; 83880; 84436; 84443; 84484; 85025; 85379; 85610; 85730; 86850; 86870; 86880; 86900; 86901; 86922; 87040; 93005; 99284; A9270-GY; P9040

== ENCOUNTER 2018-07-19 05:21 | Observation (INO) | payer MEDICARE ==
--- OUTSIDE RECORDS SUMMARY | 2018-07-19 05:29 | XMS REPORT ---
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 Manas Villeda MD Primary Care Physician Unavailable Payers Type Date Identification Numbers Payment Provider Subscriber Medicare Primary Effective: Policy Number: Medicare [place] Jocelyne Martin 2010 [id number] PayID: [id number] [address] [facility] [place] [address] Medigap Part B Policy Number: [id number] [facility] Health Care Options Herminio Martin PayID: [id number] [address] [place] [address] Problems Date Description Provider Status Onset: 2013 [...] 1 by Veronica mouth Amaris, every day [facility] Flovent HFA 05/07 Active Aerosol 110mcg/Ac 12gm 1 puff R13.10 t daily to Amaris, tongue, [place] swallow; samples Ferrous Sulfate 01/29 Active Tablets 325(65Fe) 90tabs 1 by Manas AKandi mg mouth Darlow, every day M.D. Amiodarone HCL 01/09 Active Tablets 200mg 360tabs 1 by Veronica mouth qd Amaris, [facility] [employer] Nitroglycerin 10/28 Active Tablets 0.4mg 30tabs 1 sl as Sub needed Amaris, pain, may [facility] repeat q5 min, if no relief after 2, call 911 Hydrocodone-Acet 02/06 Active Tablets 10-325mg 240tabs 1-2 every G89.4 Manas A. aminophen 6 hours Christiana, as needed M.D. pain Venlafaxine HCL 04/07 Active Caps ER 37.5mg 90caps Take 1 R23.2 Veronica ER /2014 24HR Capsule Amaris, po qhs [facility] Levocetirizine 07/12 Active Tablets 5mg 90tabs Take 1 Veronica Dihydrochloride Tablet Amaris, Every Day [facility] Omeprazole 05/02 Active Capsules 40mg 180caps take [address] capsule Jamielow, qd M.D. Ventolin HFA Active Aerosol 108(90Bas 3units 2 puffs Veronica /0000 e) every 6 Amaris, mcg/Act hours as [facility] [employer] needed Albuterol Active Nebulizer (2.5mg/3M 180ml use four Veronica Sulfate /0000 L) 0.083% times a Amaris, day as [place] needed Colace Active Capsules 100mg 540caps 1 by Veronica /0000 mouth Amaris, twice a [facility] [employer] day for bowels Multivitamin Active Tablets 100tabs 1 po qd Unknown With Folic Acid / supplemen t Senna S Active Tablets 8.6-50mg 180tabs 1 by Veronica /0000 mouth Amaris, twice a [facility] [employer] day Calcium/Mag Active Chewtabs 30units 1 po qd Unknown /0000 Singulair Active Tablets 10mg 90tabs take 1 Veronica /0000 tablet Amaris, every day [place] Fluticasone Active Suspension 50mcg/Act 48units Use 2 Veronica Propionate /0000 Sprays In Amaris, Each [place] [employer] [place] Nostril AT Bedtime Acetaminophen Active Tablets 325mg [...] Take 1 Veronica HCL /0000 Tablet AT [facility], Bedtime [place] Pramipexole Active Tablets 1mg 180tabs Take 2 Veronica Dihydrochloride /0000 Tablets Amaris, Every [facility] [employer] Night AT Bedtime Prednisone 01/16 Hx Tablets 10mg 19tabs 4 by mouth x 2 Amaris, - days, [place] [employer] [place] 02/04 then 3 by mouth x 2 days, then 2 by mouth x 2 days,then 1 by mouth x 1 day Nitrofurantoin 09/22 Hx Capsules 100mg 14caps 1 by Manas A. Monohyd Macro mouth two Darlow, - times a M.D. Amoxicillin 08/29 Hx Tablets 875mg 20tabs 1 tab Veronica twice a Amaris, - day x 10 [place] [employer] Amoxicillin 08/20 Hx Tablets 875mg 14tabs 1 tab Manas A. twice a Darlow, - day x 7 M.D. Breo Ellipta 02/28 Hx Aerosol 100-25mcg 60units 1 Veronica /Inh inhalatio Amaris, - n once [facility] [employer] 04/20 per day, rinse after use Amiodarone HCL 01/09 Hx Tablets 200mg 120tabs 2 by mouth bid Amaris, - [place] [employer] 04/10 Zostavax 12/24 Hx Suspension [id number]/ 1units inject Rec 0.65ML subq x 1 Amaris, - [place] [employer] 08/20 Amiodarone HCL 12/24 Hx Tablets 400mg 180tabs 1 by Veronica mouth Amaris, - twice a [place] [employer] [facility] Atrovent HFA 10/22 Hx Aerosol 17mcg/Act 12.900g 2 puffs m qid prn Amaris, - shortness [place] [employer] [facility] 11/27 breath, asthma symptoms Multaq 10/03 Hx Tablets 400mg 180tabs take one tablet by Amaris, - mouth [place] [employer] [place] 12/24 twice a day Lisinopril 10/03 Hx Tablets 20mg 1 by mouth - every day 11/27 Metoprolol 10/03 Hx Tablets 25mg 180tabs 1 by Veronica Tartrate mouth Amaris, - twice a [place] [employer] Rosuvastatin 10/03 Hx Tablets 20mg 1 by Unknown mouth - every day 11/28 Aspirin 10/[address] 81mg 1 by mouth - every day 11/08 Hydromorphone 09/16 Hx T24a 8mg 30units 1 po G89.4 Veronica HCL daily by Amaris, - mouth, [place] [employer] [place] 10/22 nte pill daily Venlafaxine HCL 08/14 Hx Tablets 37.5mg 90tabs take 3 by G89.4 Veronica mouth Amaris, - daily [place] [employer] [place] 11/27 Cyclobenzaprine 08/14 Hx Tablets 5mg 60tabs one to G89.4 Veronica HCL /2017 two Amaris, - tablet [place] [employer] [place] 10/22 every hours as needed pain Chair Lift 08/14 Hx due to G89.4 Veronica significa Amaris, - nt [facility] [employer] 09/15 chronic pain and immobilit y, a chair lift is required for adl's and self cares Dilaudid 08/14 Hx Tablets 2mg 30tabs 1 by mouth Amaris, - twice [place] [employer] [place] 10/22 daily needed for severe pain caution: sedation, alcohol Amoxicillin 06/07 Hx Tablets 875mg 14tabs 1 tab J01.90 twice a Amaris, - day x 7 [place] [employer] [place] 08/13 days Prednisone 06/07 Hx Tablets 5mg 78tabs 12 by mouth Amaris, - today, [place] [employer] 08/13 decrease 2017 by 1 every day until gone Furosemide 04/10 Hx Tablets 40mg 30tabs 2 po qd G47.62 Amaris, - [employer] [employer] 04/10 Portable Oxygen 04/10 Hx small R09.02 portable Amaris, - tank for [place] [facility] [place] 11/27 travel away from home Simply Saline 04/10 Hx Aerosol 0.9% 1Bottle 2 sprays each Amaris, - nostril [place] [employer] 11/27 daily Pulse Oximeter 04/10 Hx for use R09.02 with Amaris, - oxygen [place] [employer] [place] 11/27 therapy desired range is >90% Clonazepam 04/10 Hx Tablets 0.5mg 30tabs 1/2 to 1 G47.62 tab by Amaris, - mouth qhs [place] [employer] [place] 09/16 prn insomnia --caution sedation with norco Hydrocodone 02/06 Hx Solution 60-4-5mg/ G89.4 Veronica Bitartrate/Chlor 5ML Amaris, pheniramine - [place] [employer] [place] Maleate/Pse 02/06 Hydrocodone-Acet 02/06 Hx Tablets 7.5-325mg 240tabs 1-2 every G89.4 Veronica aminophen /2016 6 hours Amaris, - as needed [place] [employer] [facility] 02/06 pain nte 8 tabs per day Propranolol HCL 01/04 Hx Tablets 40mg 60tabs take one Manas A. tablet by Christiana, - mouth M.D. 01/04 twice a day Propranolol HCL 01/04 Hx Tablets 40mg 180tabs Take 1 Manas Tablet Darmax, - Twice M.D. 09/16 Daily Fentanyl 08/11 Hx Patches 100mcg/HR 10units place one G89.4 Veronica /2016 72HR patch Amaris, - every 3 [place] [employer] [place] Hydromorphone 06/30 Hx Tablets 2mg Veronica HCL Amaris, - [place] [employer] [place] 06/30 Dilaudid 06/30 Hx Tablets 2mg 30tabs 1 po Veronica /2015 twice Amaris, - daily as [place] [employer] [place] 08/11 needed for severe pain caution: sedation, alcohol Breo Ellipta 02/27 Hx Aerosol 100-25mcg 3units 1 puff Veronica /2014 /Inh daily Amaris, - [place] [employer] 01/02 Hydrocodone-Acet 01/11 Hx Tablets 10-325mg 120tabs 1 by G89.4 Veronica aminophen mouth Amaris, - every 6 [place] [employer] [place] 02/06 hours for pain Hydrocodone 01/09 Hx Tablets 10-300mg 90tabs Veronica Bitartrate/Aceta Amaris, minophen - [place] [employer] 01/11 Venlafaxine HCL 10/27 Hx Caps ER 37.5mg 30caps 1 by 782.62 Veronica ER /2014 24HR mouth Amaris, - every day [place] [employer] [place] 02/27 Symbicort 10/10 Hx Aerosol 160-4.5mc sample 2 puffs Manas A. g/Act once a Darmax, - day M.D. 02/27 Biaxin 10/04 Hx Tablets 500mg 20tabs take one 465.9 tablet by Amaris, - mouth [place] [employer] [place] 01/09 twice a day x 10 days finish all medicatio n Benzonatate 10/04 Hx Capsules 200mg 30caps 1 three 786.2 Veronica /2015 times a Amaris, - day as [place] [employer] 01/09 needed cough Nebulizer Set Up 10/04 Hx 1units dispense 786.2 Veronica And one Amaris, - machine [place] [employer] 01/02 nebulizer Ipratropium 10/04 Hx Solution 0.5-2.5(3 180ml inhale 1 R05 Veronica [place]/Albutero )mg/3ML three Amaris, l Sulfate - times a [place] [employer] 09/16 day x weeks Nabumetone 09/08 Hx Tablets 500mg 180tabs Take 1 Tablet Amaris, - Twice [place] [employer] [place] 08/14 Daily Cyclobenzaprine 09/05 Hx Tablets 5mg 180tabs one to M79.1 Veronica two Amaris, - tablet [place] [employer] 01/02 night at bedtime as needed Amoxicillin 09/05 Hx Tablets 500mg 21tabs 1 tab by 465.9 mouth Amaris, - three [place] [employer] 10/04 times day x 7 days samples Oxycodone-Acetam 08/08 Hx Tablets 10-325mg 200tabs 1-2 by mouth Amaris, - every 4 [place] [place] 01/09 hours needed Prednisone 06/13 Hx Tablets 5mg 30tabs take 2 by 724.5 mouth Amaris, - twice a [place] [employer] [place] 01/09 day x days, then take 1 by mouth three times a day x 3 days, then take 1 by mouth twice a day x 3 d Nabumetone 05/02 Hx Tablets 500mg 60tabs 1 po bid Amaris, - [place] [employer] 09/05 Oxycodone/Acetam 05/02 Hx Tablets 10-325mg 50tabs 1-2 po Amaris, inophen q4hrs prn Veronica, - [employer]-F 08/08 Oxycodone/Acetam 13 Hx Tablets 10-325mg 50tabs 1-2 po Amaris, inophen q4hrs prn Veronica, - [employer]ATION IN[employer]-F 07/04 Oxycodone/Acetam 05/02 Hx Tablets 10-325mg 50tabs 1-2 po Amaris, ino q4hrs prn Veronica, - [employer]ATION IN[employer]-F 07/04 Oxycodone-Acetam 05/02 Hx Tablets 10-325mg 50tabs 1-2 po Veronica ino q4hrs prn Amaris, - [employer] [employer] 07/04 Ondansetron HCL 05/02 Hx Tablets 8mg 30tabs 1 every 8 787.02 hours prn Amaris, - nausea [place] [employer] [place] 05/02 Ondansetron HCL 05/02 Hx Tablets 8mg 50tabs 1 by R11.0 mouth Amaris, - every 8 [place] [employer] [place] 05/10 hours needed nausea Venlafaxine HCL 05/02 Hx Tablets 50mg 90tabs 1/2 tab 782.62 by mouth Amaris, - daily [place] [employer] [place] 05/02 Venlafaxine HCL 05/02 Hx Tablets ER 37.5mg 30tabs 1 by 782.62 Karlee ER 24HR mouth Gen, - daily [place] [employer] [place] 10/27 Famotidine 04/14 Hx Tablets 40mg 60tabs 1 by 530.81 Manas A. mouth Christiana, - twice a M.D. Nizatidine 04/05 Hx Capsules 150mg 180caps take one 530.81 Manas capsule Darmax, - by mouth M.D. 04/14 twice a day Clonidine HCL 02/28 Hx Tablets 0.1mg 90tabs take one tablet by Christiana, - mouth at M.D. 01/09 bedtime Sucralfate 02/14 Hx Tablets 1gm 270tabs 1 by 782.62 Manas mouth Christiana, - three M.D. 05/02 times day Labs 01/06 Hx 24-hr 782.62 Manas urinary Christiana, - 5-hiaa M.D. 02/14 serotonin Serum chromogra jessie A, b, C [...] 90tabs 1 by Manas A. /0000 ke Villeda, - every day Jeane 01/09 B Complex Hx Tablets Unknown / - 02/27 Vitamin B-12 Hx Tablets 500mcg 30tabs 1 po qd Unknown /0000 - 01/06 Iron Supplement Hx Tablets 100tabs 1 po qd Unknown / - 02/27 Vitamin D3 Hx Capsules 2000Unit 1 po qd Unknown / - 02/27 Shark Cartilage Hx Capsules 2 po bid Unknown / - 11/27 MS Contin Hx Tablets ER 1 po q hs Unknown /0000 prn - 06/30 Advair Diskus 00 Hx Aerosol 500-50mcg inhale Unknown /0000 /Dose 1-2 pufsf - by mouth 02/04 two times daily or use Breo instead but Not both Torsemide 00 Hx Tablets 20mg 90tabs Take 2 Veronica /0000 Tablets Amaris, - Every [place] [employer] [place] 11/27 Day, Alternati ng With Furosemid e Klor-Con M20 Hx Tablets ER 20Meq 90tabs Take 1 Brian J. /0000 Tablet Breiman, - Every Day MKandiD. 11/27 Furosemide Hx Tablets 80mg 45tabs Take 1 Veronica /0000 Tablet Amaris, - Every [place] [employer] [place] 09/16 Day Alternati ng With Torsemide Vitamin [...] /0000 mg mouth Amaris, - every day [place] [employer] [place] 08/20 Amitriptyline Hx Tablets 1mg 1 by [...] Sodium /0000 Tablet Amaris, - Every Day [place] [employer] [place] 08/29 Ranexa 00 Hx Tablets ER 500mg 1 po bid Unknown /0000 12HR - 03/16 Plavix 00 Hx Tablets 75mg 1 by Unknown /0000 mouth - every day 02/04 Brilinta 00 Hx Tablets 90mg 1 by Unknown /0000 mouth - twice a Fluticasone Hx Aerosol 500-50 1 puff Unknown Propionate/Salme /0000 daily terol - 03/16 Immunizations CPT Code Status Date Vaccine Lot # [id number] Given 05/15/2018 High-Dose, Influenza Virus Vacccine-fluzone 65 and [id number] older 20274 Given 04/10/2017 High-Dose, Influenza Virus Vacccine-fluzone 65 and [id number] older 54985 Given 12/24/2016 Tdap Tetanus, W Pertussis [id number] 45827 Given 12/24/2016 Pneumococcal Conjugate Vacc-13 [id number] 13711 Given 04/10/2016 Influenza Vac, Quadrivalent, Slit Virus, Im [id number] [address]5031 Given 05/08/2015 Pneumococcal Immunization [id number] 40704 Given 05/08/2015 Influenza Vac, Quadrivalent, Slit Virus, Im [id number] Vital Signs Date Vital Result Comment 07/16/2018 BP Systolic 146 mmHg BP Diastolic 80 mmHg Heart Rate 68 /min Body Temperature 98.3 F Respiratory Rate 18 /min Height 61 inches 5'1" 05/20/2018 BP Systolic 134 mmHg BP Diastolic [...] Test Result H/L Range Note Laboratory test 07/16/2018 Hemoglobin 11.6 g/dL Low 12.0-17.0 finding (Fma/CMC/CTX) Type & Screen 06/19/2018 Patient Blood Type B Negative Antibody Screen POSITIVE CBC Auto Diff 06/19/2018 White Blood Count 5.1 10^3/uL 3.5-10.8 Red Blood Count 3.12 10^6/uL Low 4.00-5.40 Hemoglobin 10.3 g/dL Low 12.0-16.0 Hematocrit 31 % Low 35-47 Mean Corpuscular Volume 98 fL High 80-97 Mean Corpuscular Hemoglobin 33 pg High 27-31 Mean Corpuscular HGB Conc 34 g/dL 31-36 Red Cell Distribution Width 13 % 10.5-15 Platelet Count 172 10^3/uL 150-450 Mean Platelet Volume 7.5 fL 7.4-10.4 Abs Neutrophils 3.0 10^3/uL 1.5-7.7 Abs Lymphocytes 1.5 10^3/uL 1.0-4.8 Abs Monocytes 0.3 10^3/uL 0-0.8 Abs Eosinophils 0.2 10^3/uL 0-0.6 Abs Basophils 0 10^3/uL 0-0.2 Abs Nucleated RBC 0 10^3/uL Granulocyte % 58.6 % Lymphocyte % 30.6 % Monocyte % 6.5 % Eosinophil % 4.0 % Basophil % 0.3 % Nucleated Red Blood Cells % 0.1 Laboratory test finding 06/19/2018 Antibody Identification D Direct Antiglobulin Test NEGATIVE Packed Cells SEE RESULTS BELO <SEE NOTE> 1 Antibody Id Autocontrol 0 Laboratory test finding 05/20/2018 Thyroxine 9.31 g/mL 6.09-12.23 TSH (Thyroid Stim Horm) 4.03 mcIU/mL 0.34-5.60 Antibody Identification D Direct Antiglobulin Test NEGATIVE Blood Culture SEE RESULT BELOW 2 Packed Cells SEE RESULTS BELO <SEE NOTE> 3 CKMB 05/20/2018 CKMB ng/mL 1.1 ng/mL 0.6-6.3 Laboratory test finding 05/20/2018 Magnesium 2.0 mg/dL 1.9-2.7 Creatine Kinase(CK) 44 U/L 10-223 Troponin I 0.01 ng/mL <0.04 Comp Metabolic Panel 05/20/2018 Sodium 138 mmol/L 135-145 Potassium 4.5 mmol/L 3.5-5.0 Chloride 106 mmol/L 101-111 Co2 Carbon Dioxide 28 mmol/L 22-32 Anion Gap 4 mmol/L 2-11 Glucose 101 mg/dL High 70-100 Blood Urea Nitrogen 32 mg/dL High 6-24 Creatinine 1.30 mg/dL High 0.51-0.95 BUN/Creatinine Ratio 24.6 High 8-20 Calcium 9.2 mg/dL 8.6-10.3 Total Protein 6.5 g/dL 6.4-8.9 Albumin 3.6 g/dL 3.2-5.2 Globulin 2.9 g/dL 2-4 Albumin/Globulin Ratio 1.2 1-3 Total Bilirubin 0.30 mg/dL 0.2-1.0 Alkaline Phosphatase 77 U/L 34-104 Alt 10 U/L 7-52 Ast 17 U/L 13-39 Egfr Non- 39.6 >60 Egfr 47.9 >60 4 Type & Screen 05/20/2018 Patient Blood Type B Negative Antibody Screen POSITIVE Laboratory test finding 05/20/2018 Partial Thrombo Time 24.8 seconds Low 26.0-36.3 PTT D Dimer Quantitative 314 ng/mL High Less Than 230 5 Inr/Protime 05/20/2018 Inr 0.97 0.77-1.02 Laboratory test finding 05/20/2018 B-Type Natriuretic 394 pg/mL High 6 Peptide BNP CBC Auto Diff 05/20/2018 White Blood Count 6.0 10^3/uL 3.5-10.8 Red Blood Count 2.77 10^6/uL Low 4.00-5.40 Hemoglobin 9.3 g/dL Low 12.0-16.0 Hematocrit 27 % Low 35-47 Mean Corpuscular Volume 99 fL High 80-97 Mean Corpuscular Hemoglobin 34 pg High 27-31 Mean Corpuscular HGB Conc 34 g/dL 31-36 Red Cell Distribution Width 13 % 10.5-15 Platelet Count 174 10^3/uL 150-450 Mean Platelet Volume 6.7 um3 Low 7.4-10.4 Abs Neutrophils 3.7 10^3/uL 1.5-7.7 Abs Lymphocytes 1.6 10^3/uL 1.0-4.8 Abs Monocytes 0.5 10^3/uL 0-0.8 Abs Eosinophils 0.2 10^3/uL 0-0.6 Abs Basophils 0 10^3/uL 0-0.2 Abs Nucleated RBC 0 10^3/uL Granulocyte % 60.4 % 38-83 Lymphocyte % 27.1 % 25-47 Monocyte % 8.6 % High 0-7 Eosinophil % 3.3 % 0-6 Basophil % 0.6 % 0-2 Nucleated Red Blood Cells % 0 Laboratory test finding 05/20/2018 Lactic Acid 0.8 mmol/L 0.5-2.0 7 CBC Electronic (Fma New) 05/20/2018 WBC 6.36 4.0-10.0 RBC 2.96 Low 3.93-6.0 Hemoglobin (Fma/CMC/CTX) 9.9 g/dL Low 12.0-17.0 Hematocrit (Fma/CMC/CTX) 29.4 % Low 35.0-50.0 Mean Corpuscular Vol 99.3 fL High 80-95 Mean Corpuscular Hemoglobin 33.4 pg High 25.6-32.2 Mean Corpuscular Hemo Concen 33.7 g/dL 32.2-36.0 Platelets 165 10^3/ul 163-400 RDW-CV 13.0 11.6-14.4 Mean Platelet Volume 9.0 fL 8.0-12.4 Absolute Neutrophils BLD 3.87 1.56-6.13 Absolute Lymphocytes 1.69 1.18-3.74 Absolute Monocytes BLD Auto 0.59 0.24-0.82 Absolute Eos Blood 0.18 0.04-0.54 Absolute Basophils 0.02 0.01-0.08 Neutrophil % 60.8 % 34.0-70.0 Lymph% 26.6 % 20.0-52.0 Monocytes % 9.3 % 5.0-12.0 Eos % 2.8 % 0.7-7.0 Basophil% 0.3 % 0-1.2 CBC Auto Diff 05/20/2018 White Blood Count 6.4 10^3/uL 3.5-10.8 Red Blood Count 2.70 10^6/uL Low 4.00-5.40 Hemoglobin 9.3 g/dL Low 12.0-16.0 Hematocrit 27 % Low 35-47 Mean Corpuscular Volume 98 fL High 80-97 Mean Corpuscular Hemoglobin 34 pg High 27-31 Mean Corpuscular HGB Conc 35 g/dL 31-36 Red Cell Distribution Width 14 % 10.5-15 Platelet Count 174 10^3/uL 150-450 Mean Platelet Volume 6.8 um3 Low 7.4-10.4 Abs Neutrophils 4.2 10^3/uL 1.5-7.7 Abs Lymphocytes 1.6 10^3/uL 1.0-4.8 Abs Monocytes 0.5 10^3/uL 0-0.8 Abs Eosinophils 0.2 10^3/uL 0-0.6 Abs Basophils 0 10^3/uL 0-0.2 Abs Nucleated RBC 0 10^3/uL Granulocyte % 64.7 % 38-83 Lymphocyte % 24.2 % Low 25-47 Monocyte % 7.6 % High 0-7 Eosinophil % 2.9 % 0-6 Basophil % 0.6 % 0-2 Nucleated Red Blood Cells % 0.1 Laboratory test 05/20/2018 Troponin I 0.01 ng/mL <0.04 finding Stool Occult Blood 05/20/2018 Stool Occult Blood, SEE RESULT BELOW 8 Diag Diag Laboratory test 05/20/2018 Point of Care 89 mg/dL 70-100 9 finding Glucose Laboratory test 05/15/2018 TSH 3.30 mIU/L 0.50-6.00 finding Ferritin 336 ng/mL High 15-200 10 Iron And Tibc 05/15/2018 Iron Bind.Cap.(Tibc) 213 g/dL Low 250-450 11 Uibc 140 g/dL 118-369 11 Iron 73 g/dL 27-139 11 Iron Saturation 34 % 15-55 11 Urinalysis Profile 04/12/2018 Urine Color Straw Urine Appearance Clear Urine Specific [place] 1.010 1.010-1.030 Urine pH 5 5-9 Urine Urobilinogen Negative Negative Urine Ketones Negative Negative Urine Protein 1+(30 mg/dL) Negative Urine Leukocytes Negative Negative Urine Blood Negative Negative Urine Nitrite Negative Negative Urine Bilirubin Negative Negative Urine Glucose Negative Negative Laboratory test finding 04/12/2018 Procalcitonin 77.5 ng/mL High <0.6 12 C Reactive Protein 269.22 mg/L High <8.01 [...] ng/mL <0.04 Lactic Acid 1.8 mmol/L 0.5-2.0 13 Comp Metabolic Panel 04/12/2018 Sodium 134 mmol/L [...] Egfr Non- 26.0 >60 Egfr 31.5 >60 14 Laboratory test finding 04/12/2018 Partial Thrombo Time 30.3 seconds 26.0 -36.3 PTT B-Type Natriuretic Peptide BNP 579 pg/mL High 15 Inr/Protime 04/12/2018 Inr 1.11 High 0.77-1.02 CBC [...] Low 3.93-6.00 HGB 10.4 g/dL Low 12.0-17.0 16 HCT 31 % Low 35-50 17 MCV 95.1 fL High 80.0-95.0 MCH 32.0 pg 25.6-32.2 MCHC 33.7 g/dL 32.2-36.0 RDW-CV 15.6 % High 11.6-14.4 PLT 168 x10^3/UL 163-400 MPV 8.9 fL Low 9.4-12.4 Anna# 3.91 x10^3/UL 1.56-6.13 Lymph# 1.56 x10^3/UL 1.18-3.74 Richardson# 0.43 x10^3/UL 0.24-0.82 Eos # 0.1 x10^3/UL 0.0-0.5 Baso # 0.03 x10^3/UL 0.01-0.08 Anna% 64.2 % 34.0-70.0 Lymph % 25.7 % 20.0-52.0 Richardson% 7.1 % 5.0-12.0 Eos% 2.3 % 0.7-7.0 [...] Egfr Non- 30.5 >60 Egfr 36.9 >60 18 Potassium 5.2 mmol/L High 3.5-5.0 Anion Gap [...] Packed Cells SEE RESULTS BELO <SEE NOTE> 19 Antibody Id Autocontrol 0 Type & Screen [...] Egfr Non- 43.9 >60 Egfr 53.1 >60 20 Laboratory test finding 01/31/2018 Lactic Acid 0.9 mmol/L 0.5-2.0 21 CBC Auto Diff 01/31/2018 White Blood Count [...] Egfr Non- 36.1 >60 Egfr 43.6 >60 22 Laboratory test finding 01/21/2018 Magnesium 2.1 mg/dL [...] Egfr Non- 32.6 >60 Egfr 39.4 >60 23 Potassium 5.2 mmol/L High 3.5-5.0 Anion Gap [...] 09/22/2017 Urine Culture And SEE RESULT BELOW 24 Sensitivities Ua - Micro (Fma) 09/22/2017 Appearance [...] ng/mL 11-307 Vitamin B12 550 pg/mL 180-914 25 Erythropoietin 9.3 mIU/mL 2.6 - 18.5 26 CBC Auto Diff 10/08/2016 White Blood Count [...] test 10/08/2016 B-Type Natriuretic 610 pg/mL High 27 finding Peptide BNP Inr/Protime 10/08/2016 Inr 1.00 0.89-1.11 Laboratory test 10/08/2016 Partial Thrombo Time 21.3 seconds Low 26.0- 36.3 finding PTT D Dimer Quantitative 649 ng/mL High Less Than 230 28 Lactic Acid 1.2 mmol/L 0.5-2.0 29 Comp Metabolic Panel 10/08/2016 Sodium 134 mmol/L [...] Egfr Non- 42.5 >60 Egfr 54.6 >60 30 Potassium 4.9 mmol/L 3.5-5.0 Anion Gap 6 mmol/L 2-11 Ast 47 U/L High 13-39 Laboratory test finding 10/08/2016 Magnesium 1.5 mg/dL Low 1.9-2.7 Lipase 21 U/L 11.0-82.0 Creatine Kinase(CK) 473 U/L High 10-223 C Reactive Protein 38.59 mg/L High < 5.00 31 Troponin I 0.03 ng/mL <0.04 32 CKMB 10/08/2016 CKMB ng/mL 7.4 ng/mL High [...] finding 10/06/2016 Lactic Acid 0.6 mmol/L 0.5-2.0 33 B-Type Natriuretic Peptide BNP 749 pg/mL High 34 Comp Metabolic Panel 10/06/2016 Sodium 135 mmol/L [...] Egfr Non- 44.5 >60 Egfr 57.3 >60 35 Laboratory test finding 10/06/2016 Magnesium 1.7 mg/dL Low 1.9-2.7 Lipase 20 U/L 11.0-82.0 Creatine Kinase(CK) 74 U/L 10-223 C Reactive Protein 83.49 mg/L High < 5.00 36 Troponin I 0.02 ng/mL <0.04 37 CKMB 10/06/2016 CKMB ng/mL 2.4 ng/mL 0.6-6.3 Laboratory test finding 10/06/2016 TSH (Thyroid Stim Horm) 2.62 mcIU/mL 0.34-5.60 Urinalysis Profile 10/06/2016 Urine Color Yellow Urine Appearance Clear Urine Specific [place] 1.015 1.010-1.030 Urine pH 6.0 5-9 Urine [...] 09/24/2016 Lactic Acid 2.2 mmol/L High 0.5-2.0 38 Comp Metabolic Panel 09/24/2016 Sodium 136 mmol/L [...] Egfr Non- 47.3 >60 Egfr 60.8 >60 39 Potassium TNP mmol/L 3.5-5.0 Anion Gap TNP mmol/L 2-11 Ast TNP U/L 13-39 Laboratory test finding 09/24/2016 Troponin I 0.05 ng/mL High <0.04 40 Magnesium TNP mg/dL 1.9-2.7 TSH (Thyroid Stim Horm) 0.54 mcIU/mL 0.34-5.60 D Dimer Quantitative 257 ng/mL High Less Than 230 41 Toxassure(R) Select 13 (MW) 08/14/2016 Report Summary FINAL 42 PDF . Laboratory test finding 08/14/2016 PDF [id number] SEE IMAGE Ua - Non Micro (Fma) [...] Egfr Non- 41.3 >60 Egfr 53.1 >60 43 Comprehensive Metabolic Prof 03/27/2016 Sodium 139 mEq/L 134-149 Potassium 5.0 mEq/L 3.6-5.5 Chloride 103 mEq/L 94-112 Carbon Dioxide 24 mEq/L 21-32 Glucose 104 mg/dL 70-105 BUN 32 mg/dL High 6-26 44 Creatinine 1.1 mg/dL 0.6-1.4 BUN/Creat Ratio 29.1 [...] Low 3.90-5.70 HGB 10.1 g/dL Low 12.1-17.2 45 HCT 29 % Low 36-50 MCV 96.0 fL 82.2-97.4 MCH 33.8 pg High 27.6-33.3 MCHC 35.3 g/dL 33.0-35.5 RDW 13.4 % 11.6-13.7 PLT 229 x10^3/UL 150-400 MPV 7.0 fL Low 7.4-10.4 Gran # 5.3 x10^3/UL 1.5-7.2 Lymph# 1.6 x10^3/UL 0.7-4.9 Richardson# 0.2 x10^3/UL 0.1-0.9 Gran % 72.4 % 42.2-75.2 Lymph % 23.7 % 20.5-51.1 Richardson% 3.9 % 1.7-9.3 Laboratory test finding 03/27/2016 Free T4 1.41 ng/dL 0.75-1.54 Laboratory test finding 03/27/2016 Brain Natural Peptide 416 pg/mL High < 100 Laboratory test finding 02/07/2016 TSH 0.68 mIU/L 0.50-6.00 Free T4 1.83 ng/dL High 0.75-1.54 46 Free T3 2.31 pg/mL 2.00-4.90 Magnesium, Serum 2.1 mEq/L 1.2-2.1 Laboratory test finding 02/07/2016 Brain Natural 475 pg/mL High <100 Peptide Laboratory test finding 02/07/2016 C-Reactive Protein, 6.54 mg/L High 0.00 -3.00 11, 47 Cardiac Basic Metabolic Profile 01/03/2016 Sodium 139 mEq/L 134-149 Potassium 4.2 mEq/L 3.6-5.5 Chloride 102 mEq/L 94-112 Carbon Dioxide 27 mEq/L 21-32 Glucose 118 mg/dL High 70-105 48 BUN 32 mg/dL High 6-26 49 Creatinine 1.2 mg/dL 0.6-1.4 BUN/Creat Ratio 26.7 [...] Egfr Non- 43.1 >60 Egfr 55.4 >60 50 Lipid Profile 10/10/2014 Cholesterol 263 mg/dL High 120-200 Triglycerides 144 mg/dL 30-200 HDL Cholesterol 72 mg/dL 30-85 LDL (Calculated) 162 CALC High 0-129 VLDL Cholesterol 29 mg/dL 0-50 HDL Risk Factor 3.7 CALC 0.0-4.4 Comprehensive Metabolic Prof 10/10/2014 Sodium 138 mEq/L 134-149 Potassium 5.2 mEq/L 3.6-5.5 Chloride 103 mEq/L 94-112 Carbon Dioxide 27 mEq/L 21-32 Glucose 200 mg/dL High 70-105 51 BUN 20 mg/dL 6-26 Creatinine 0.9 mg/dL [...] 09/26/2014 Jak2 Mutation Analysis Blood See Comment 52 BCR/Abl Trans 9:22 Fish 09/26/2014 BCR/abl (Fish) Specimen Blood BCR/abl (Fish) Specimen Id [id number] BCR/abl (Fish) Order Date 27 Sep 2014 12:1 <SEE NOTE> 53 BCR/abl (Fish) Referral Reason anemia BCR/abl (Fish) Method See Comment 54 BCR/abl Results See Comment 55 BCR/abl (Fish) Interpretation See Comment 56 BCR/abl (Fish) Divorce Attorney See Comment 57 BCR/abl (Fish) Report Date 06 Oct 2014 08:2 <SEE NOTE> 58 Laboratory test finding 09/26/2014 [facility] [place] see scanned CBC Auto Diff [...] 0.75-1.54 Laboratory test finding 07/04/2014 Hemoglobin A1c (a[place] 5.3 % 4.1- 5.7 Brain Natural Peptide 145 pg/mL High <100 Laboratory test finding 06/13/2014 Vitamin B-12 726 pg/mL 230-1050 Laboratory test finding 06/13/2014 Sed Rate 43mm (Fma/CMC/Centrex) Lyme Igg/M W/RFX West 06/13/2014 Lyme IgG/IgM Ab <0.91 ISR 0.00-0.90 59 Lyme Disease Ab, Quant, IgM <0.80 index 0.00-0.79 60 Methylmalonic Acid 06/13/2014 Methylmalonic Acid, Serum 271 nmol/L 0-378 61 Laboratory test finding 06/13/2014 Antinuclear Abs, Ifa Negative 62 Rheumatoid Arth Factor 9.4 IU/mL 0.0-13.9 Homocysteine 15.4 umol/L High 0.0-15.0 Comprehensive Metabolic Prof 06/06/2014 Sodium 135 mEq/L 134-149 Potassium 4.5 mEq/L 3.6-5.5 Chloride 97 mEq/L 94-112 Carbon Dioxide 24 mEq/L 21-32 Glucose 144 mg/dL High 70-105 63 BUN 18 mg/dL 6-26 Creatinine 1.0 mg/dL 0.6-1.4 BUN/Creat Ratio 18.0 CALC 8.0-36.0 Calcium 9.5 mg/dL 8.6-10.2 Total Protein 7.1 g/dL 6.4-8.3 Albumin 4.0 g/dL 3.8-5.5 Globulin 3.1 g/dL 2.0-4.8 A/G Ratio 1.3 CALC 0.6-2.3 Alk. Phosphatase 90 U/L 30-110 Alt (SGPT) 17 U/L 7-35 Ast (Sgot) 24 U/L 5-34 Total Bilirubin 0.3 mg/dL 0.2-1.3 Laboratory test finding 06/06/2014 Magnesium, Serum 1.6 mEq/L 1.2-2.1 TSH 3.13 mIU/L 0.50-6.00 Free T3 1.64 pg/mL Low 2.00-4.90 64 Free T4 1.69 ng/dL High 0.75-1.54 65 Complete Blood Count 06/06/2014 WBC 6.1 x10^3/UL 3.6-9.6 RBC 3.06 x10^6/UL Low 3.90-5.70 66 HGB 10.4 g/dL Low 12.1-17.2 67 HCT 29 % Low 36-50 68 MCV 95.0 fL 82.2-97.4 MCH 34.0 pg High 27.6-33.3 69 MCHC 35.6 g/dL High 33.0-35.5 70 RDW 12.6 % 11.6-13.7 PLT 288 x10^3/UL 150-400 MPV 7.0 fL Low 7.4-10.4 Gran # 4.3 x10^3/UL 1.5-7.2 Lymph# 1.6 x10^3/UL 0.7-4.9 Richardson# 0.2 x10^3/UL 0.1-0.9 Gran % 69.6 % 42.2-75.2 Lymph % 26.7 % 20.5-51.1 Richardson% 3.7 % 1.7-9.3 Laboratory test finding 06/06/2014 Sed Rate (Fma/CMC/Centrex) 28mm Laboratory test finding 04/06/2014 [facility] [place] see scannned Laboratory test finding 01/20/2014 [facility] Test 5-hiaa qt 24hr Uric Acid 24HR Urine 12/15/2013 Urine Random Uric Acid 24.0 mg/dL Urine Uric Acid/24HR 144.0 mg/24Hr Low 250-750 Urine Collection Time 24 Urine Total Volume 600 mL Laboratory test finding 12/09/2013 [facility] Test bun/creat Laboratory test finding 2013 TSH 1.27 mIU/L 0.50-6.00 Uric Acid 6.5 mg/dL 2.5-9.2 1 SEE RESULTS BELOW [id number] [facility] 06/19/18 1512 2 SEE RESULT BELOW Name: LISETH,JOCELYNE A : [address]: Dee Warner MD Acct: [id number] Unit: [id number] AGE: 77 Location: ED Re05/20/18 SEX: F Status: DEP ER SPEC: [id number] OSCAR: 05/20/[address]: Dee Warner MD REQ: [id number] RECD: 05/20/18 STATUS: COMP OTHR DR: Manas Villeda MD _ SOURCE: BLOOD,VENO SPDESC: ORDERED: Blood Cult COMMENTS: Patient is On Antibiotics? NO Procedure Result Reported Site Aerobic Culture Bottle Final 05/25/18- 1826 ML No Growth Day 5 Anaerobic Culture Bottle Final 05/25/18- 1826 ML No Growth Day 5 * ML - Main Lab . END OF REPORT DEPARTMENT OF PATHOLOGY, [address] [place] [address] Ramos Durand M.D. Director [facility] # [id number] 3 SEE RESULTS BELOW [id number] ON TRANSFUSED 05/21/18 4618 4 Because ethnic data is not always [...] 5 Kidney failure <15 (or dialysis) 5 Please note: The following may produce a false positive D Dimer test: - Rheumatoid factor greater than 60 IU/ml - Plasma hemoglobin greater than 0.05 gm/dl - Bilirubin greater than 50 mg/dl - Lipids greater than 1000 mg/dl - FDP greater than 20 ug/ml 6 >100 to <200 pg/mL: likely compensated congestive heart failure (CHF) 200 to 400 pg/mL: likely moderate CHF >400 pg/mL: likely moderate to severe CHF 7 [facility] Severe Sepsis and Septic Shock Management Bundle Measure requires all lactic acids initially measuring >2.0 mmol/L be repeated. 8 SEE RESULT BELOW Name: JOCELYNE MARTIN : [address]: Dee Warner MD Acct: [id number] Unit: [id number] AGE: 77 Location: ED Re05/20/18 SEX: F Status: REG ER SPEC: [id number] OSCAR: 05/20/[address] [facility] [address]: Dee Warner MD REQ: [id number] RECD: 05/20/18 STATUS: FRANKI DE JESUS DR: Manas Villeda MD _ SOURCE: STOOL SPDESC: ORDERED: Occult Bl, Diag Procedure Result Reported Site Stool Occult Blood (1) Final 05/20/18- 1836 ML Stool Occult Blood Negative * ML - Main Lab . END OF REPORT DEPARTMENT OF PATHOLOGY, [address] [place] [address] Ramos Durand M.D. Director [facility] # [id number] 9 Instrument/Control Technician: [id number] RESULTS VERIFIED BY REPEAT ANALYSIS 11 12 Interpretive information available on [facility] Test Catalog at [email or web address] 13 [facility] Severe Sepsis and Septic Shock Management Bundle Measure requires all lactic acids initially measuring >2.0 mmol/L be repeated. 14 Because ethnic data is not always [...] 5 Kidney failure <15 (or dialysis) 15 >100 to <200 pg/mL: likely compensated congestive heart failure (CHF) 200 to 400 pg/mL: likely moderate CHF >400 pg/mL: likely moderate to severe CHF 16 RESULTS VERIFIED BY REPEAT ANALYSIS 17 RESULTS VERIFIED BY REPEAT ANALYSIS 18 Because ethnic data is not always readily [...] 15-29 5 Kidney failure <15 (or dialysis) 19 SEE RESULTS BELOW [id number] ON PC TRANSFUSED 01/31/18 1940 [id number] BN PC TRANSFUSED 02/01/18 1047 [id number] BN PC TRANSFUSED 01/31/18 1240 20 Because ethnic data is not always readily [...] 15-29 5 Kidney failure <15 (or dialysis) 21 [facility] Severe Sepsis and Septic Shock Management Bundle Measure requires all lactic acids initially measuring >2.0 mmol/L be repeated. 22 Because ethnic data is not always readily [...] 15-29 5 Kidney failure <15 (or dialysis) 23 Because ethnic data is not always readily [...] 15-29 5 Kidney failure <15 (or dialysis) 24 SEE RESULT BELOW Name: JOCELYNE MARTIN : [address]: Manas Villeda MD Acct: [id number] Unit: [id number] AGE: 76 Location: [facility] Re09/22/17 SEX: F Status: REG REF SPEC: [id number] OSCAR: 09/22/17161 [facility] DR: Manas Villeda MD REQ: [id number] RECD: 09/22/17 STATUS: COMP _ SOURCE: URINE SPDESC: ORDERED: Urine Culture COMMENTS: [id number] kemp urine top Procedure Result Reported Site Urine Culture Final 09/24/17- 723 ML Organism 1 KLEBSIELLA PNEUMONIAE [place] Count >100,000 (Many) CFU/ML 1. KLEBSIELLA PNEUMONIAE [...] . END OF REPORT DEPARTMENT OF PATHOLOGY, [address] [place] [address] Ramos Durand M.D. Director [facility] # [id number] 25 Normal Range 180 to 914 Indeterminate Range 145 to 180 Deficient Range <145 26 Test Performed by: [facility] - [address] [address] 27 >100 to <200 pg/mL: likely compensated congestive heart failure (CHF) 200 to 400 pg/mL: likely moderate CHF >400 pg/mL: likely moderate to severe CHF 28 Please note: The following may produce a false positive D Dimer test: - Rheumatoid factor greater than 60 IU/ml - Plasma hemoglobin greater than 0.05 gm/dl - Bilirubin greater than 50 mg/dl - Lipids greater than 1000 mg/dl - FDP greater than 20 ug/ml 29 [facility] Severe Sepsis and Septic Shock Management Bundle [...] 5 Kidney failure <15 (or dialysis) 31 Acute inflammation: >10.00 32 99th percentile=0.04 ng/mL Troponin results at [facility] and [facility] are not interchangeable. 33 [facility] Severe Sepsis and Septic Shock Management Bundle Measure requires all lactic acids initially measuring >2.0 mmol/L be repeated. 34 >100 to <200 pg/mL: likely compensated congestive heart failure (CHF) 200 to 400 pg/mL: likely moderate CHF >400 pg/mL: likely moderate to severe CHF 35 Because ethnic data is not always readily [...] 15-29 5 Kidney failure <15 (or dialysis) 36 Acute inflammation: >10.00 37 99th percentile=0.04 ng/mL Troponin results at [facility] and [facility] are not interchangeable. 38 Critical Result LACT:2.2 Called to [id number] at: 22:40:14 by:[id number] Read back by:ORI [facility] Severe Sepsis and Septic Shock Management Bundle Measure requires all lactic acids initially measuring >2.0 mmol/L be repeated. 39 Because ethnic data is not always readily [...] 15-29 5 Kidney failure <15 (or dialysis) 40 Result TnIDx:0.05 Called to [id number] at: 22:42:43 by:[id number] Read back by: [id number] 99th percentile=0.04 ng/mL Troponin results at [facility] and [facility] are not interchangeable. 41 Please note: The following may produce a false positive D Dimer test: - Rheumatoid factor greater than 60 IU/ml - Plasma hemoglobin greater than 0.05 gm/dl - Bilirubin greater than 50 mg/dl - Lipids greater than 1000 mg/dl - FDP greater than 20 ug/ml 42 TOXASSURE SELECT 13 (MW) Test Result Flag [...] Venlafaxine For clinical consultation, please call . 43 Because ethnic data is not always readily [...] 15-29 5 Kidney failure <15 (or dialysis) 44 consistent w/ previous results 45 consistent w/ previous results 46 RESULTS VERIFIED BY REPEAT ANALYSIS 47 Relative Risk for Future Cardiovascular Event Low <1.00 Average 1.00 - 3.00 High >3.00 48 NON-FASTING 49 consistent w/ previous results 50 Because ethnic data is not always readily [...] 15-29 5 Kidney failure <15 (or dialysis) 51 RESULTS VERIFIED BY REPEAT ANALYSIS 52 Peripheral blood, JAK2 V617F mutation analysis: Negative [...] assay has been determined at 0.01% (see [facility] Check-Cap Interpretive Handbook for method details). Laboratory developed test. PDF Report available at: [email or web address] Test Performed by: [place] [address] Cardiac Cath Rn: Foreign Bee II, M.D., Ph.D. 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 55 Abnormality Result %Cutoff BCR/ABL1 fusion Normal <0.6 NOMENCLATURE nuc gerry(ABL1,BCR)x2[500] Of 500 nuclei, 0% had fusion of BCR and ABL1. 56 The result is within normal limits for the BCR and ABL1 gene regions. DISCLAIMER: Analyte Specific Reagent (ASR). This test was developed and its performance characteristics determined by [facility]. It has not been cleared or approved by the U.S. Food and Drug Administration. This FISH test does not rule out other chromosome abnormalities. 57 RESULT: Brian Dietrich MD, PhD 58 06 Oct 2014 08:23 Test Performed by: [address] [address] Cardiac Cath Rn: Foreign Bee II, M.D., Ph.D. 59 Negative <0.91 Equivocal 0.91 - 1.09 Positive >1.09 Please note reference interval change 60 Negative <0.80 Equivocal 0.80 - 1.19 Positive >1.19 IgM levels may peak at 3-6 weeks post infection, then gradually decline. 61 Please note reference interval change 62 Negative <1:80 Borderline 1:80 Positive >1:80 63 RESULTS VERIFIED BY REPEAT ANALYSIS 64 RESULTS VERIFIED BY REPEAT ANALYSIS 65 RESULTS VERIFIED BY REPEAT ANALYSIS 66 RESULTS VERIFIED BY REPEAT ANALYSIS 67 RESULTS VERIFIED BY REPEAT ANALYSIS 68 RESULTS VERIFIED BY REPEAT ANALYSIS 69 RESULTS VERIFIED BY REPEAT ANALYSIS 70 RESULTS VERIFIED BY REPEAT ANALYSIS Procedures Date CPT Code Description Status 05/15/2018 55689 Pulse Oximetry Completed 04/20/2018 26864 Pulse Oximetry Completed 01/20/2017 Mammogram Completed 10/22/2016 22917 Pulse Oximetry Completed 10/08/2016 04643 Pulse Oximetry Completed 06/07/2016 50134 Pulse Oximetry Completed 04/26/2016 97828 Pulse Oximetry Completed 03/27/2016 45981 Pulse Oximetry Completed 02/07/2016 77639 Pulse Oximetry Completed 07/27/2015 Mammogram Completed 06/30/2015 92900 Pulse Oximetry Completed 10/10/2014 83235 Pulse Oximetry Completed 10/04/2014 69039 Nebulizer Treatment Completed 05/20/2014 Mammogram Completed 09/18/2013 Colonoscopy Completed Encounters Type Date Location Provider CPT E/M Dx Office Visit 05/20/2018 11:30a [facility] Office VY Russell 48385 R05 J18.1 R68.84 R51 I20.0 Office Visit 05/15/2018 3:30p [facility] Office VY Russell 57100 D64.9 Z23 R53.83 J44.9 N18.4 I20.0 M25.561 M25.562 Office Visit 04/20/2018 4:30p [facility] [place] [address] J18.1 J44.9 G89.4 Office Visit 03/16/2018 2:30p [facility] Office Manas Villeda M.D. 85449 Z01.818 H25.13 I25.119 E03.9 I10 N18.4 K21.9 J45.998 S35.511S D50.0 G25.81 I48.0 G89.4 Office Visit 02/05/2018 11:00a [facility] Office Veronica Glez, [facility] [address] R07.89 I20.0 R51 G89.4 M79.604 Office Visit 01/16/2018 11:00a [facility] Office Veronica Glez, [facility] [address] M25.562 M53.3 R07.89 I20.0 R51 G89.4 Office Visit 09/24/2017 4:00p [facility] Office Veronica Glez, [facility] [address] R21 W01.0xxA R07.89 R06.02 G89.4 K59.01 N39.42 G47.00 R60.0 Office Visit 08/29/2017 10:00a [facility] Office Veronica Glez, [facility] [address] J01.90 R05 K21.9 G89.4 R06.02 M15.0 I20.9 E03.9 Office Visit 06/10/2017 3:30p Main Office Veronica Glez, [facility] [address] M79.672 R29.6 R53.1 R51 Office Visit 05/07/2017 4:15p [facility] Office Veronica Glez, [facility] [address] R51 D64.9 R53.1 W17.89xA J44.9 K21.9 R13.10 G89.4 Office Visit 04/10/2017 2:30p Main Office Veronica Glez, [facility] [address] Z23 M79.652 M79.651 N95.0 G89.4 D64.9 Office Visit 02/28/2017 2:00p [facility] Office Veronica Glez, [facility] [address] N95.0 R51 R06.02 G89.4 D64.9 Office Visit 12/24/2016 2:00p [facility] Office Veronica Glez, [facility] [address] Z23 R51 R60.0 I48.91 G89.4 R06.02 K21.9 Office Visit 11/28/2016 3:45p Main Office Veronica Glez, [facility] [address] R51 I48.91 K25.7 G89.4 M79.644 Office Visit 11/08/2016 1:00p [facility] Veroncia Glez, [facility] [address] K25.7 I48.91 R51 M79.644 M15.0 D64.9 G89.4 Office Visit 10/22/2016 4:00p [facility] Veronica Glez, [facility] [address] R51 I48.91 R05 R06.02 R09.02 R11.10 Office Visit 10/08/2016 3:00p [facility] Office Veronica Glez, [facility] [address] R51 I48.91 R05 G89.4 M15.0 R06.02 Office Visit 09/16/2016 3:00p [facility] Office Veronica Glez, [facility] [address] R51 G89.4 M15.0 D64.9 Office Visit 08/14/2016 3:30p [facility] Office Veronica Glez, [facility] [address] R51 M15.0 R09.02 G89.4 R31.9 D64.9 Office Visit 06/07/2016 11:00a [facility] Office Veronica Glez, [facility] [address] J01.90 R51 R53.82 M79.7 M15.0 Office Visit 04/26/2016 3:00p [facility] Office Veronica Glez, [facility] [address] R51 R53.82 M79.7 M15.0 R09.02 D50.9 Office Visit 04/10/2016 2:00p [facility] Office Veronica Glez, [facility] [address] R53.82 M79.7 M15.0 R09.02 D50.9 J44.9 G47.62 Z23 Office Visit 03/27/2016 3:20p [facility] Office Manas Villeda M.D. 86097 R51 R53.82 E03.9 Office Visit 02/07/2016 3:30p [facility] Office Veronica Glez, [facility] [address] I10 E03.9 M79.7 K21.9 G25.81 M15.0 G89.4 R09.02 Office Visit 01/03/2016 3:40p [facility] Office Manas Villeda M.D. 10366 I10 E03.9 M79.7 K21.9 G25.81 M15.0 J45.998 G89.4 R51 Office Visit 09/06/2015 4:30p [facility] Office Veronica Glez, [facility] [address] G89.4 M79.1 M15.0 Office Visit 08/11/2015 1:00p [facility] Office Veronica Glez, [facility] [address] G89.4 M79.1 M15.0 Office Visit 06/30/2015 2:00p [facility] Office Veronica Glez, [facility] [address] M15.0 D53.9 M79.1 G89.4 Office Visit 02/27/2015 2:30p [facility] Office Veronica Glez, [facility] [address] 715.09 281.9 729.1 782.3 338.4 Office Visit 01/09/2015 10:30a [facility] Office Veronica Glez, [facility] [address] 274.00 715.09 281.9 729.1 244.9 724.5 Office Visit 11/29/2014 11:45a [facility] Office Veronica Glez [facility] [address] 333.94 715.00 724.5 285.9 786.2 Office Visit 10/10/2014 11:20a [facility] Office Manas Villeda M.D. 14409 401.9 493.90 244.9 729.1 530.81 333.94 715.00 285.9 786.50 Office Visit 10/04/2014 2:00p [facility] Office Veronica Glez, [facility] 149[address] 465.9 786.2 Office Visit 09/05/2014 3:00p [facility] Office Veronica Glez [facility] 39103 729.82 465.9 Office Visit 08/08/2014 3:00p [facility] Office Veronica Glez, [facility] [address] 724.5 281.9 729.1 719.47 244.9 Office Visit 07/04/2014 1:15p [facility] Veronica Glez, [facility] 15717 790.21 724.5 281.9 782.3 Office Visit 06/13/2014 4:00p [facility] Office Veronica Glez [facility] [address] 729.1 274.00 715.09 281.9 Office Visit 06/06/2014 3:00p [facility] Veronica Glez, [facility] 56579 782.62 530.81 729.1 Office Visit 05/02/2014 1:15p [facility] Office Veronica Glez, [facility] 18326 782.62 530.81 787.02 Office Visit 02/14/2014 2:20p [facility] Manas Villeda M.D. 50388 782.62 Office Visit 01/06/2014 7:00p [facility] Office Manas Villeda M.D. 12262 782.62 Office Visit 2013 8:30a [facility] Manas Villeda M.D. 09116 244.9 274.00 333.94 493.90 782.3 715.09 729.1 530.81 Plan of Care 07/16/2018 - Sidra Warner M.D.I25.119 [facility] heart disease [place] cor art w unsp ang pctrsComments:doing well after surgery.Continue all meds.You have some questions to discuss with Dr. Delgado regarding whether or not to have a procedure for another stent.Otherwise,you are doing well.D64.9 Anemia, unspecifiedAllComments:~B_~U_Medication Management~b_~u_ Patient Understands medications she's taking? Yes No Are there Barriers to Adherence? Yes No Has the patient been asked about herbal supplements and therapies, and OTC meds? Yes No
--- OUTSIDE RECORDS SUMMARY | 2018-07-19 05:30 | XMS REPORT | Continuity of Care Document ---
:1940 External Reference #:[id number] Author Name Soha Stone Care Team Providers Name Role Phone Manas Villeda MD Primary Care Physician Unavailable Payers Type Date Identification Numbers Payment Provider Subscriber Effective: Policy Number: [id number] Medicare Jocelyne Rafaela Veronica 2018 PayID: [id number] [address] [facility] [address] Effective: 2007 Policy Number: [id number] Medicare Jocelyne Rafaela Veronica Expires: 2018 PayID: [id number] [address] [place] [address] Policy Number: [id number] [facility] Jocelyne A Veronica PayID: [id number] [address] [place] [address] Advance Directives Description No Information Available Problems Date Description Provider Status Onset: 04/06/2015 Restless legs Jaziel Hurst M.D. Active Onset: 06/10/2016 Dyspnea Sharon Peter MD Active Onset: 06/10/2016 Asthma without status asthmaticus Sharon Peter MD Active Onset: 06/10/2016 Disturbance in sleep behavior Sharon Peter MD Active Onset: 06/10/2016 Morbid obesity Sharon Peter MD Active Onset: 02/03/2018 Encounter for planned Bennie Herron M.D., [facility], Active postprocedural wound closure [facility] Onset: 01/21/2018 [...] Active Onset: 01/23/2018 Gastric ulcer without hemorrhage, Lnenox Singh M.D. 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 Active Onset: 01/31/2018 Chest pain Shanda Gregory D.O. Active Onset: 01/31/2018 Hypothyroidism Shanda Gregory D.O. Active Onset: 02/01/2018 Chronic diastolic heart failure Shanda Gregory D.O. Active Onset: 02/01/2018 Hypertensive heart and chronic Ivanna Palomo.O. Active kidney disease with heart failure and stage 1 through stage 4 chronic kidney disease, or unspecified chronic kidney disease Onset: 04/12/2018 Pneumonia PHYLLIS Lara Active Onset: 06/02/2018 Hypertensive heart disease with Arnold Holguin MD Active heart failure Onset: 06/02/2018 Idiopathic gout, left ankle and Arnold Holguin MD Active foot Onset: 06/02/2018 Low back pain Arnold Holguin MD Active Onset: 06/02/2018 Urinary tract infectious disease Arnold Holguin MD Active Family History Date Family Member(s) Problem(s) Comments Father Heart Disease Mother breathibg issues Mother Congestive Heart Failure (CHF) Social History Type Date Description Comments Sex Unknown Marital Status 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, 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 Tobacco Use Start: Unknown Never Smoked Cigarettes Smoking Status Reviewed: 07/07/18 Never Smoked Cigarettes ETOH Use Rarely consumes alcohol Tobacco Use Start: Unknown Patient has never smoked Recreational Drug Use Denies Drug Use Exercise Type/Frequency Does not exercise Limited physical mobility Allergies, Adverse Reactions, Alerts Date Description Reaction Status Severity Comments 02/18/2011 Gabitril rash, rash Active 02/18/2011 Naproxen itching Active 02/18/2011 Lipitor leg weakness Active leg weakness 02/18/2011 Uniphyl stomach pain Active 02/18/2011 Zanaflex hallucination Active 06/17/2016 CT Scan Dye/ Contrast Active Dizzy/ Blurry Eye 05/23/2017 Cytotec Active 05/23/2017 Imipramine Active 05/23/2017 Simvastatin Active leg weakness 05/23/2017 Rosuvastatin Calcium Active leg weakness 06/27/2017 Pravastatin Sodium Active vomiting 06/27/2017 Pravastatin Active vomiting 10/10/2017 Any Statins Active 10/16/2017 Nitrofurantoin Active 02/03/2018 Misoprostol Active 02/03/2018 Theophylline Active 02/03/2018 Tiagabine Active 02/03/2018 Tizanidine Active 02/03/2018 Fentanyl Active 02/03/2018 Amitriptyline Active 05/01/2018 Brilinta Active dyspnea 02/18/2011 Aspirin Inactive Medications Medication Date Status Form Strength Qnty SIG Indications Ordering Provider Prednisone Active Tablets 20mg 14tabs take 2 tab M10.072 Arnold Holguin, 018 daily for 7 MD days. Colchicine Active Tablets 0.6mg 45tabs take 2 tabs Arnold Holguin, 018 daily for 7 MD days. Then reduce to 1 tab daily. Amiodarone Active Tablets 100mg 90tabs 1 by mouth You S. HCL 018 every day, Danny, DO use generic FACC Plavix Active Tablets 75mg 90tabs Take one You S. 018 tablet by Danny, DO mouth daily FACC Metoprolol Active Tablets 25mg 180tabs 1 by mouth You S. Tartrate 018 twice a day Danny, DO FACC Electric Bed Active Electric R26.9 You S. 018 bed for Danny, DO home use FACC I50.32 R60.0 Repatha Sureclick 12/03/2017 Active Solution 140mg/ml 2ml sc [id number] ( You S. Auto-Inject has not Danny, [...] 10mg take 1 Unknown tablets every night Levothyroxine Active Tablets 175mcg 1 by mouth Unknown Sodium every day Ventolin HFA Active Aerosol 108(90Base 2 puffs by Unknown ) mcg/Act mouth four times a day as needed Breo Ellipta Active Aerosol 100-25mcg/ 1 puff Unknown Inh inhaled daily Nitroglycerin Active Tablets Sub 0.4mg 25tab 1 sl q5mins You lewis x3 as needed Delgado, for chest DO FACC pain Shark Cartilage [...] by mouth twice daily Lisinopril Active Tablets 10mg 1 by mouth Unknown twice per day Melatonin Active Capsules 10mg 1 tab by Unknown mouth at bedtime as needed for insomnia Ranitidine HCL Active Capsules 150mg 90cap Take 1 Benny lewis Capsule Rocael, After Dinner ( taken 1 hour before supper) Prilosec Active Capsules DR 40mg 1 by mouth Unknown every day Pantoprazole 05/18/2018 - Hx Tablets DR 20mg 30tab one each Benny Cee. Sodium 05/30/2018 joshua morning Rocael, before breakfast Metoprolol 02/13/2018 - Hx Tablets 25mg Take two by You Duggan Tartrate 02/13/2018 mouth twice Delgado, a day DO FACC Brilinta 01/27/2018 - Hx Tablets 90mg 180ta 1 tab by You Duggan 02/27/2018 bs mouth twice Delgado, a day DO FACC Metoprolol 01/27/2018 - Hx Tablets 50mg 1 by mouth You S. Tartrate 01/30/2018 twice a Delgado, day(increase DO FACC d prior to Cath) Metoprolol 01/27/2018 - Hx Tablets ER 50mg 1 by mouth You S. Succinate ER 02/11/2018 24HR twice daily Delgado, [...] 10mg 90tab 1 by mouth I You Duggan Sodium 06/26/2017 s every 2 Delgado, evening 5 DO FACC . 1 1 9 Topiramate 07/18/2016 - Hx Tablets 25mg 120ta 1 every Jaziel S. 12/03/2016 bs night at [place], bedtime for M.D. 1 week then 2 [...] mouth Jaziel Duggan 02/02/2018 bs every night Aris, at bedtime M.D. Vitamin D - Hx [...] ER 30mg 180ta take one I You Duggan Mononitrate ER 08/22/2017 24HR bs tablet by 2 Danny, mouth twice 5 DO FACC daily . 1 1 9 Sucralfate - Hx Powder 1 30 minutes Unknown 04/29/2017 before meals tid Multaq - Hx Tablets 400mg 1 by mouth Unknown 04/29/2017 twice a day Ferrous Sulfate - Hx Tablets 325(65Fe) 1 po every Unknown 06/25/2018 mg day Omeprazole - Hx Capsules DR 40mg 1 by mouth Unknown 06/26/2017 bid Amiodarone HCL - Hx Tablets 200mg 90tab 1 by mouth You Duggan 05/01/2018 s once a Danny, day-on Hold [...] To 40 Millicuries Inj, Administered Injection You Duggan Regadenoson, 018 Delgado, DO 0.1 MG FACC Technetium TC Administered Injection You S. 99M 018 Delgado, DO Tetrofosmin, FACC Per Unit Dose Up To 40 Millicuries Immunizations Description No Information Available Vital Signs Date Vital Result Comment 07/07/2018 11:11am Heart Rate 54 /min BP Systolic 118 mmHg BP Diastolic 64 mmHg Respiratory Rate 18 /min Body Temperature 98.4 F O2 % BldC Oximetry 93 % 06/26/2018 10:39am Heart Rate 60 /min BP Systolic Sitting 102 mmHg R forearm reg cuff BP Diastolic Sitting 64 mmHg R forearm reg cuff BP Systolic Standing 108 mmHg R BP Diastolic Standing 64 mmHg R Respiratory Rate 18 /min Ejection Fraction 50-55% 01/25/18 06/02/2018 2:14pm Weight 253.00 lb Heart Rate 62 /min Respiratory Rate 18 /min Body Temperature 98.0 F 05/18/2018 4:28pm Height 61 inches 5'1" Heart Rate 61 /min BP Systolic Sitting 174 mmHg BP Diastolic Sitting 78 mmHg Body Temperature 97.5 F O2 % BldC Oximetry 98 % 05/01/2018 11:22am Height 61 inches 5'1" Weight 251.00 lb [...] BMI (Body Mass Index) 47.4 kg/m2 04/30/2018 3:36pm Height 61 inches 5'1" Weight 246.00 lb Heart Rate 61 /min BP Systolic Sitting 122 mmHg BP Diastolic Sitting 68 mmHg Respiratory Rate 17 /min Pain Level 9 BMI (Body Mass Index) 46.5 kg/m2 04/09/2018 6:25pm Weight 246.00 lb Heart Rate 68 /min BP Systolic Sitting 110 mmHg BP Diastolic Sitting 64 mmHg 02/26/2018 1:57pm Height 61 inches 5'1" Weight 247.00 lb Heart Rate 72 /min BP Systolic Sitting 116 mmHg BP Diastolic Sitting 62 mmHg Respiratory Rate 14 /min O2 % BldC Oximetry 98 % 2 L BMI (Body Mass Index) 46.7 kg/m2 02/13/2018 10:15am Height 61 inches 5'1" Weight 256.00 lb [...] BMI (Body Mass Index) 48.4 kg/m2 02/03/2018 3:22pm Height 61 inches 5'1" Weight 260.00 lb w/ o shoes Heart Rate 70 /min BP Systolic Sitting 152 mmHg wrist cuff Left arm BP Diastolic Sitting 82 mmHg wrist cuff Left arm Respiratory Rate 24 /min BMI (Body Mass Index) 49.1 kg/m2 Ejection Fraction 50-55% echo 01/25/18 01/16/2018 12:27pm Heart Rate 50 /min BP Systolic Sitting 110 mmHg Rue reg cuff BP Diastolic Sitting 80 mmHg Rue reg cuff BP Systolic Standing 102 mmHg Rue reg cuff BP Diastolic Standing 72 mmHg Rue reg cuff Respiratory Rate 16 /min O2 % BldC Oximetry 97 % at room air Ejection Fraction 50-55% date 10/14/16 ECHO 12/30/2017 3:24pm Height 61 inches 5'1" Weight 253.00 lb per pt Heart Rate 56 /min BP Systolic Sitting 120 mmHg L forearm reg cuff BP Diastolic Sitting 88 mmHg L forearm reg cuff BP Systolic Standing 124 mmHg L forearm reg cuff BP Diastolic Standing 90 mmHg L forearm reg cuff Respiratory Rate 16 /min BMI (Body Mass Index) 47.8 kg/m2 12/11/2017 4:05pm Height 61 inches 5'1" Weight 256.00 lb Heart Rate 70 /min BP Systolic Sitting 130 mmHg BP Diastolic Sitting 70 mmHg Respiratory Rate 20 /min O2 % BldC Oximetry 93 % BMI (Body Mass Index) 48.4 kg/m2 12/03/2017 11:55am Height 61 inches 5'1" Weight 256.00 lb No shoes Heart Rate 72 /min BP Systolic Sitting 126 mmHg Rfa reg cuff BP Diastolic Sitting 74 mmHg Rfa reg cuff Respiratory Rate 16 /min BMI (Body Mass Index) 48.4 kg/m2 Ejection Fraction 50-55% 10/14/2016-echo 10/16/2017 11:53am Height 61 inches 5'1" Weight 264.00 lb Heart Rate 72 /min BP Systolic Sitting 132 mmHg BP Diastolic Sitting 72 mmHg Respiratory Rate 16 /min Pain Level 8 Hydroodone for pain O2 % BldC Oximetry 96 % Ra BMI (Body Mass Index) 49.9 kg/m2 10/10/2017 10:42am Weight 260.00 lb Heart Rate 54 /min regular BP Systolic 122 mmHg BP Diastolic 68 mmHg Respiratory Rate 12 /min no respiratory difficulties Pain Level 0 O2 % BldC Oximetry 90 % 08/22/2017 11:40am Height 61 inches 5'1" Weight 263.00 lb [...] BMI (Body Mass Index) 49.7 kg/m2 07/01/2017 1:45pm Height 61 inches 5'1" Weight 254.00 lb Heart Rate 58 /min BP Systolic Sitting 114 mmHg Lue forearm small cuff BP Diastolic Sitting 78 mmHg Lue forearm small cuff Respiratory Rate 16 /min O2 % BldC Oximetry 92 % On Ra BMI (Body Mass Index) 48.0 kg/m2 06/27/2017 9:28am Height 61 inches 5'1" Weight 256.00 lb Heart Rate 52 /min BP Systolic Sitting 122 mmHg Ra Large Cuff BP Diastolic Sitting 78 mmHg Ra Large Cuff BP Systolic Standing 138 mmHg Ra Large Cuff BP Diastolic Standing 78 mmHg Ra Large Cuff Respiratory Rate 16 /min Pain Level 8 O2 % BldC Oximetry 92 % BMI (Body Mass Index) 48.4 kg/m2 06/18/2017 4:03pm Height 61 inches 5'1" Weight 265.00 lb Heart Rate 62 /min BP Systolic Sitting 132 mmHg BP Diastolic Sitting 80 mmHg Respiratory Rate 16 /min BMI (Body Mass Index) 50.1 kg/m2 05/23/2017 10:47am Weight 265.00 lb Heart Rate 56 /min BP Systolic Sitting 126 mmHg LA Large Cuff BP Diastolic Sitting 74 mmHg LA Large Cuff BP Systolic Standing 134 mmHg LA Large Cuff BP Diastolic Standing 80 mmHg LA Large Cuff Respiratory Rate 16 /min Pain Level 7 O2 % BldC Oximetry 94 % 05/01/2017 4:18pm Height 61 inches Weight 250.00 lb stated Heart Rate 98 /min BP Systolic Sitting 126 mmHg BP Diastolic Sitting 70 mmHg Respiratory Rate 16 /min Pain Level 10 O2 % BldC Oximetry 98 % Ra BMI (Body Mass Index) 47.2 kg/m2 12/30/2016 1:26pm Heart Rate 68 /min BP Systolic Sitting 142 mmHg BP Diastolic Sitting 80 mmHg Respiratory Rate 14 /min O2 % BldC Oximetry 93 % 07/04/2016 3:05pm Heart Rate 76 /min BP Systolic Sitting 136 mmHg Right forearm reading BP Diastolic Sitting 88 mmHg Right forearm reading Respiratory Rate 24 /min 06/11/2016 2:17pm Height 61 inches 5'1" Weight 250.00 lb Heart Rate 72 /min BP Systolic Sitting 140 mmHg BP Diastolic Sitting 86 mmHg BMI (Body Mass Index) 47.2 kg/m2 06/10/2016 3:50pm Height 61 inches 5'1" Weight 250.00 lb Heart Rate 98 /min BP Systolic Sitting 134 mmHg BP Diastolic Sitting 78 mmHg O2 % BldC Oximetry 93 % BMI (Body Mass Index) 47.2 kg/m2 04/06/2015 10:21am Height 61 inches 5'1" Weight 238.00 lb Heart Rate 64 /min BP Systolic Sitting 114 mmHg BP Diastolic Sitting 78 mmHg BMI (Body Mass Index) 45.0 kg/m2 Results Test Date Facility Test Result H/L Range Note Urinalysis Profile 07/02/2018 [facility] Urine Color Yellow [address] [place] [address] [phone] Urine Appearance Cloudy Urine Specific [place] 1.013 N 1.010-1.030 Urine pH 6.0 N 5-9 Urine Urobilinogen Negative Negative Urine Ketones Negative Negative Urine Protein 2+(100 mg/dL) Abnormal Negative Urine Leukocytes Negative Negative Urine Blood Negative Negative * * Abnormal Negative 1 Urine Nitrite Negative Negative Urine Bilirubin Negative Negative Urine Glucose Negative Negative Urine White Blood Cell Trace(0-5/hpf) Absent Urine Red Blood Cell 1+(3-5/hpf) Abnormal Absent Urine Bacteria Absent Absent Urine Squamous Epithelial Cell Present Abnormal Absent CBC Auto Diff 07/02/2018 [facility] White Blood 4.5 10^3/uL N 3.5-10.[address] [place] [address] [phone] Red Blood Count 3.35 10^6/uL Low 4.00-5.40 Hemoglobin 10.7 g/dL Low 12.0-16.0 Hematocrit 32 % Low 35-47 Mean Corpuscular Volume 96 fL N 80-97 Mean Corpuscular Hemoglobin 32 pg High 27-31 Mean Corpuscular HGB Conc 33 g/dL N 31-36 Red Cell Distribution Width 14 % N 10.5-15 Platelet Count 191 10^3/uL N 150-450 Mean Platelet Volume 7.2 fL Low 7.4-10.4 Abs Neutrophils 2.4 10^3/uL N 1.5-7.7 Abs Lymphocytes 1.6 10^3/uL N 1.0-4.8 Abs Monocytes 0.4 10^3/uL N 0-0.8 Abs Eosinophils 0.2 10^3/uL N 0-0.6 Abs Basophils 0 10^3/uL N 0-0.2 Abs Nucleated RBC 0 10^3/uL Granulocyte % 52.5 % Lymphocyte % 34.4 % Monocyte % 7.9 % Eosinophil % 4.5 % Basophil % 0.7 % Nucleated Red Blood Cells % 0 Laboratory test 07/02/2018 [facility] Uric Acid 8.0 mg/dL High 2.3-6.[address] [place] [address] [phone] Urine Culture And 07/02/2018 [facility] Urine SEE RESULT [address] [place] [address] [phone] CBC Auto Diff 06/02/2018 [facility] White Blood 5.3 N 3.5- 10.[address] Count 10^3/[place] [address] [phone] Red Blood Count 3.52 10^6/uL Low 4.00-5.40 Hemoglobin 11.4 g/dL Low 12.0-16.0 Hematocrit 34 % Low 35-47 Mean Corpuscular Volume 97 fL N 80-97 Mean Corpuscular Hemoglobin 33 pg High 27-31 Mean Corpuscular HGB Conc 33 g/dL N 31-36 Red Cell Distribution Width 14 % N 10.5-15 Platelet Count 228 10^3/uL N 150-450 Mean Platelet Volume 7.3 fL Low 7.4-10.4 Abs Neutrophils 3.2 10^3/uL N 1.5-7.7 Abs Lymphocytes 1.6 10^3/uL N 1.0-4.8 Abs Monocytes 0.3 10^3/uL N 0-0.8 Abs Eosinophils 0.2 10^3/uL N 0-0.6 Abs Basophils 0 10^3/uL N 0-0.2 Abs Nucleated RBC 0 10^3/uL Granulocyte % 59.2 % N 38-83 Lymphocyte % 30.5 % N 25-47 Monocyte % 5.7 % N 0-7 Eosinophil % 4.1 % N 0-6 Basophil % 0.5 % N 0-2 Nucleated Red Blood Cells % 0 Laboratory test 06/02/2018 [facility] Uric Acid 7.7 mg/dL High 2.3-6.[address] [place], [place] [id number] [phone] Urinalysis 06/02/2018 [facility] Urine Color Yellow Profile [address] [place] [address] [phone] Urine Appearance Clear Urine Specific [place] 1.013 N 1.010-1.030 Urine pH 6.0 N 5-9 Urine Urobilinogen Negative Negative Urine Ketones Negative Negative Urine Protein 2+(100 mg/dL) Abnormal Negative Urine Leukocytes Trace Abnormal Negative Urine Blood Negative Negative * * Abnormal Negative 3 Urine Nitrite Negative Negative Urine Bilirubin Negative Negative Urine Glucose Negative Negative Urine White Blood Cell Trace(0-5/hpf) Absent Urine Red Blood Cell Trace(0-2/hpf) Absent Urine Bacteria 1+ Abnormal Absent Urine Squamous Epithelial Cell Present Abnormal Absent Urine Hyaline Casts Present Abnormal Absent Urine Culture And 06/02/2018 [facility] Urine Culture SEE RESULT [address] [place] [address] [phone] CBC No Diff 02/05/2018 [facility] White Blood 6.5 10^3/uL N 3.5-[address] Count .8 [place] [address] [phone] Red Blood Count 3.52 10^6/uL Low 4.00-5.40 Hemoglobin 10.8 g/dL Low 12.0-16.0 Hematocrit 32 % Low 35-47 Mean Corpuscular Volume 91 fL N 80-97 Mean Corpuscular Hemoglobin 31 pg N 27-31 Mean Corpuscular HGB Conc 34 g/dL N 31-36 Red Cell Distribution Width 17 % High 10.5-15 Platelet Count 266 10^3/uL N 150-450 Mean Platelet Volume 7.4 um3 N 7.4-10.4 CBC Auto Diff 02/03/2018 [facility] White Blood 7.0 10^3/uL N 3.5-10.[address] [place] [address] [phone] Red Blood Count 3.44 10^6/uL Low 4.00-5.40 Hemoglobin 10.5 g/dL Low 12.0-16.0 Hematocrit 31 % Low 35-47 Mean Corpuscular Volume 90 fL N 80-97 Mean Corpuscular Hemoglobin 30 pg N 27-31 Mean Corpuscular HGB Conc 34 g/dL N 31-36 Red Cell Distribution Width 17 % High 10.5-15 Platelet Count 247 10^3/uL N 150-450 Mean Platelet Volume 7.0 um3 Low 7.4-10.4 Abs Neutrophils 6.2 10^3/uL N 1.5-7.7 Abs Lymphocytes 0.6 10^3/uL Low 1.0-4.8 Abs Monocytes 0.2 10^3/uL N 0-0.8 Abs Eosinophils 0 10^3/uL N 0-0.6 Abs Basophils 0 10^3/uL N 0-0.2 Abs Nucleated RBC 0 10^3/uL Granulocyte % 88.5 % High 38-83 Lymphocyte % 8.5 % Low 25-47 Monocyte % 2.4 % N 0-7 Eosinophil % 0.1 % N 0-6 Basophil % 0.5 % N 0-2 Nucleated Red Blood Cells % 0 Laboratory test 01/20/2018 [facility] Ferritin 151.0 N 11-307 finding ng/[place] [address] [phone] Laboratory test 01/20/2018 [facility] TSH (Thyroid 8.23 High 0.34-5.[address] Stim Horm) mcIU/[place] [address] [phone] Free T4 (Free Thyroxine) 1.17 ng/dL High 0.61-1.12 Cath Panel 01/20/2018 [facility] Partial 26.2 seconds N 26.0- 36.[address] [place] [address] PTT [phone] Inr/Protime 01/20/2018 [facility] Inr 0.93 N 0.77-[address] [place] [address] [phone] Comp Metabolic 01/20/2018 [facility] Sodium 138 mmol/L N 135- [address] [place] [address] [phone] Chloride 101 mmol/L N 101-111 Co2 Carbon Dioxide 28 mmol/L N 22-32 Glucose 155 mg/dL High 70-100 Blood Urea Nitrogen 34 mg/dL High 6-24 Creatinine 1.54 mg/dL High 0.51-0.95 BUN/Creatinine Ratio 22.1 High 8-20 Calcium 9.0 mg/dL N 8.6-10.3 Total Protein 6.8 g/dL N 6.4-8.9 Albumin 3.9 g/dL N 3.2-5.2 Globulin 2.9 g/dL N 2-4 Albumin/Globulin Ratio 1.3 N 1-3 Total Bilirubin 0.30 mg/dL N 0.2-1.0 Alkaline Phosphatase 76 U/L N 34-104 Alt 9 U/L N 7-52 Ast 15 U/L N 13-39 Egfr Non- 32.6 >60 Egfr 39.4 >60 6 Potassium 5.2 mmol/L High 3.5-5.0 Anion Gap 9 mmol/L N 2-11 CBC Auto Diff 01/20/2018 [facility] White Blood 6.4 10^3/uL N 3.5-10.[address] [place] [address] [phone] Red Blood Count 2.91 10^6/uL Low 4.00-5.40 Hemoglobin 9.5 g/dL Low 12.0-16.0 Hematocrit 28 % Low 35-47 Mean Corpuscular Volume 96 fL N 80-97 Mean Corpuscular Hemoglobin 33 pg High 27-31 Mean Corpuscular HGB Conc 34 g/dL N 31-36 Red Cell Distribution Width 13 % N 10.5-15 Platelet Count 213 10^3/uL N 150-450 Mean Platelet Volume 7.6 um3 N 7.4-10.4 Abs Neutrophils 5.5 10^3/uL N 1.5-7.7 Abs Lymphocytes 0.8 10^3/uL Low 1.0-4.8 Abs Monocytes 0.1 10^3/uL N 0-0.8 Abs Eosinophils 0 10^3/uL N 0-0.6 Abs Basophils 0 10^3/uL N 0-0.2 Abs Nucleated RBC 0 10^3/uL Granulocyte % 86.2 % High 38-83 Lymphocyte % 12.2 % Low 25-47 Monocyte % 1.2 % N 0-7 Eosinophil % 0.1 % N 0-6 Basophil % 0.3 % N 0-2 Nucleated Red Blood Cells % 0 Laboratory test 08/15/2017 [facility] LDL Cholesterol 103 mg/dL [address] [place] [address] [phone] TSH (Thyroid Stim Horm) 15.82 mcIU/mL High 0.34-5.60 Laboratory test 06/26/2017 [facility] Magnesium 1.8 mg/dL Low 1.9-2.[address] [place] [address] [phone] Free T4 (Free Thyroxine) 1.19 ng/dL High 0.61-1.12 TSH (Thyroid Stim Horm) 10.61 mcIU/mL High 0.34-5.60 B-Type Natriuretic Peptide BNP 351 pg/mL High 8 Laboratory test 06/26/2017 [facility] LDL Cholesterol 126 mg/dL [address] [place] [address] [phone] Comp Metabolic 06/26/2017 [facility] Sodium 138 mmol/L N 133- [address] [place] [address] [phone] Potassium 4.0 mmol/L N 3.5-5.0 Chloride 102 mmol/L N 101-111 Co2 Carbon Dioxide 30 mmol/L N 22-32 Anion Gap 6 mmol/L N 2-11 Glucose 113 mg/dL High 70-100 Blood Urea Nitrogen 24 mg/dL N 6-24 Creatinine 1.35 mg/dL High 0.51-0.95 BUN/Creatinine Ratio 17.8 N 8-20 Calcium 9.3 mg/dL N 8.6-10.3 Total Protein 6.5 g/dL N 6.4-8.9 Albumin 3.9 g/dL N 3.2-5.2 Globulin 2.6 g/dL N 2-4 Albumin/Globulin Ratio 1.5 N 1-3 Total Bilirubin 0.30 mg/dL N 0.2-1.0 Alkaline Phosphatase 94 U/L N 34-104 Alt 13 U/L N 7-52 Ast 17 U/L N 13-39 Egfr Non- 38.0 >60 Egfr 48.9 >60 10 Basic Metabolic Panel 06/11/2016 [facility] Sodium 136 mmol/L N 133-145 [address] [place] [address] [phone] Potassium 5.2 mmol/L High 3.5-5.0 Chloride 106 mmol/L N 101-111 Co2 Carbon Dioxide 23 mmol/L N 22-32 Anion Gap 7 mmol/L N 2-11 Glucose 135 mg/dL High 70-100 Blood Urea Nitrogen 35 mg/dL High 6-24 Creatinine 1.26 mg/dL High 0.51-0.95 BUN/Creatinine Ratio 27.8 High 8-20 Calcium 9.4 mg/dL N 8.6-10.3 Egfr Non- 41.3 N >60 Egfr 53.1 N >60 11 1 *Ascorbic acid is present which may interfere with detection of blood. 2 SEE RESULT BELOW Name: JOCELYNE MARTIN : [address]: Arnold Holguin MD Acct: [id number] Unit: [id number] AGE: 77 Location: [facility] Re07/02/18 SEX: F Status: REG REF SPEC: [id number] OSCAR: 07/02/[address] [facility] [address]: Arnold Holguin MD REQ: [id number] RECD: 07/02/18 STATUS: FRANKI DE JESUS DR: Avinash Romero MD _ SOURCE: URINE SPDESC: ORDERED: Urine Culture Procedure Result Reported Site Urine Culture Final 07/04/18- 826 ML Organism 1 STAPHYLOCOCCUS EPIDERMIDIS Yancey Count 75-100,000 (Many) CFU/ML 1. STAPHYLOCOCCUS EPIDERMIDIS M.I.C. RX --------- ------ Penicillin >=0.5 R Gentamicin <=0.5 S Linezolid 1 S Nitrofurantoin <=16 S Oxacillin >=4 R * Quinupristin/Dalfopristin <=0.25 S Rifampin <=0.5 S Tetracycline >=16 R Tigecycline <=0.12 S Vancomycin 1 S Imipenem-Deduced R * Ampicillin/Sulbactam-Deduced R Cefazolin-Deduced R * These antibiotics are not available in the [facility] Formulary Contact the Microbiology Department for any additional antibiotic reporting. * [facility] - Main Lab . END OF REPORT DEPARTMENT OF PATHOLOGY, [address] [place] [address] Ramos Durand M.D. Director [facility] # [id number] 3 *Ascorbic acid is present which may interfere with detection of blood. 4 SEE RESULT BELOW Name: JOCELYNE MARTIN : [address]: Arnold Holguin MD Acct: [id number] Unit: [id number] AGE: 77 Location: LAB Re06/02/18 SEX: F Status: REG REF SPEC: [id number] OSCAR: 06/02/18-[address] [facility] [address]: Arnold Holguin MD REQ: [id number] RECD: 06/04/18 STATUS: COMP _ SOURCE: URINE SPDESC: ORDERED: Urine Culture Urine Source: Clean Catch Procedure Result Reported Site Urine Culture Final 06/05/18- 926 ML No growth of clinically significant organisms * [facility] - Main Lab . END OF REPORT DEPARTMENT OF PATHOLOGY, [address] [place] [address] Ramos Durand M.D. Director [facility] # [id number] [address] HERRON CELL PHONE [phone] 6 Because ethnic data is not always readily [...] 15-29 5 Kidney failure <15 (or dialysis) 7 Desirable: <100 Near Optimal: 100-129 Borderline High: 130-159 High: 160-189 Very High: >189 8 >100 to <200 pg/mL: likely compensated congestive heart failure (CHF) 200 to 400 pg/mL: likely moderate CHF >400 pg/mL: likely moderate to severe CHF 9 Desirable: <100 Near Optimal: 100-129 Borderline High: 130-159 High: 160-189 Very High: >189 10 Because ethnic data is not always readily [...] 15-29 5 Kidney failure <15 (or dialysis) 11 Because ethnic data is not always [...] Kidney failure <15 (or dialysis) Procedures Date Code Description Status 06/26/2018 76810 EKG Tracing & Interpretation Completed 04/09/2018 52760 EKG Tracing & Interpretation Completed 03/25/2018 70720 Stress Test Completed 03/25/2018 90525 Myocardial Perfusion Imaging Tomographic (Spect) Completed Multiple Studies 02/03/2018 83128 EKG Tracing & Interpretation Completed 01/31/2018 84533 EKG, Interpretation Only Completed 01/26/2018 79456 EKG, Interpretation Only Completed 01/25/2018 74825 ECHO Transthorasic Realtime 2D W Doppler & Color Flow Completed Hosp 01/24/2018 80722 EKG, Interpretation Only Completed 01/24/2018 48911 Insert Non-Tunneled Venous Catether Completed 01/23/2018 56842 Percutaneous Transcatheter Placement Of Intracoronary Completed Stent 01/23/2018 37553 EKG, Interpretation Only Completed 01/23/2018 66757 Cath PLMT&NJX L Ventriculog Img S&I Completed 01/16/2018 37065 EKG Tracing & Interpretation Completed 12/30/2017 29801 EKG Tracing & Interpretation Completed 12/29/2017 85431 Diffusing Capacity Completed 12/29/2017 25643 Pulmonary Function><Bronchodil Completed 12/03/2017 03355 EKG Tracing & Interpretation Completed 10/10/2017 71858 EKG Tracing & Interpretation Completed 05/23/2017 41264 EKG Tracing & Interpretation Completed 10/14/2016 19445 ECHO Transthorasic Realtime 2D W Doppler & Color Flow Completed Hosp 10/11/2016 64570 EKG, Interpretation Only Completed 10/01/2016 32629 Cath PLMT&NJX L Ventriculog Img S&I Completed 09/29/2016 63290 EKG, Interpretation Only Completed 09/28/2016 36256 EKG, Interpretation Only Completed 09/26/2016 79484 Treadmill Interp/Report Only Completed 09/26/2016 68604 Stress Test Supervsn W/Out I/R Completed 09/25/2016 23967 Color Flow Doppler/Interp & Reprt Completed 09/25/2016 42068 Pulse Wave/Continuous-Interp.RPT Completed 09/25/2016 58491 Echocardiography, Transesophageal, Real Time W/Image Completed 2D W/W/O M-M 09/25/2016 85509 Cardioversion Completed 08/06/2016 [id number] Diabetic Retinal Eye Exam Completed 07/04/2016 17128 Plethysmography Determination Lung Volumes & Per Completed Airway Resist 07/04/2016 46617 Pulmonary Function><Bronchodil Completed 07/04/2016 88171 Diffusing Capacity Completed 07/03/2016 94238 Polysomnography Sleep Staging 4+ Parameters Completed 01/04/2016 62900 Nerve Conduction 01-02 Studies Completed 03/18/2012 69601 Nerve Conduction, Sensory Completed 03/18/2012 78346 Nerve Conduction, Motor W/O F-Wave Study Completed 02/18/2011 23695 Remove Impacted Cerumen Completed 05/07/2005 81865 Treadmill Interp/Report Only Completed 05/07/2005 17685 Stress Test Supervsn W/Out I/R Completed Encounters Type Date Location Provider Dx Diagnosis Office Visit 06/26/2018 Cardiology You Delgado, I25.119 [facility] heart 10:40a Services Of [facility] AT [facility] disease of [facility] art w unsp ang pctrs D64.89 Other specified anemias I48.0 Paroxysmal atrial fibrillation N18.3 Chronic kidney disease, stage 3 (moderate) I11.0 Hypertensive heart disease with heart failure I25.2 Old myocardial infarction I50.32 Chronic diastolic (congestive) heart failure E03.9 Hypothyroidism, unspecified D47.1 Chronic myeloproliferative disease Office Visit 06/09/2018 [facility] Avinash Romero, D47.1 Chronic 11:00a Center Of Karina Ching myeloproliferative AT [place] disease D64.89 Other specified anemias I20.9 Angina pectoris, unspecified Office Visit 05/18/2018 3:15p [facility] Gastroenterology Benny Vergara E66.8 Other obesity MD Rocael M48.07 Spinal stenosis, lumbosacral region G44.221 Chronic tension-type headache, intractable R10.9 Unspecified abdominal pain K59.00 Constipation, unspecified Office Visit 05/12/2018 [facility] Avinash Romero, D47.1 Chronic 2:40p Center Of Karina Ching myeloproliferative AT [place] disease D64.9 Anemia, unspecified Office Visit 05/01/2018 11:15a Cardiology You Duggan I25.119 [facility] Services Of [facility] AT [facility] disease of [facility] [place] art unsp ang pctrs I48.0 Paroxysmal atrial fibrillation N18.9 Chronic kidney disease, unspecified I25.2 Old myocardial infarction I11.0 Hypertensive heart disease with heart failure E66.8 Other obesity I50.32 Chronic diastolic (congestive) heart failure G25.81 Restless legs syndrome D64.9 Anemia, unspecified E03.9 Hypothyroidism, unspecified Office Visit 04/30/2018 [place] Jaziel Duggan I20.9 Angina pectoris, 3:15p Neurologic Serv Of Jeane Hurst unspecified [facility] G44.221 Chronic tension-type headache, intractable G25.0 Essential tremor M48.07 Spinal stenosis, lumbosacral region Office Visit 04/15/2018 10:59a [facility] Maryjane Pauline, J18.9 Pneumonia, Assoc,pc [employer] SERVICES SUPERVISOR unspecified Hospitalists organism R07.9 Chest pain, unspecified J96.11 Chronic respiratory failure with hypoxia N18.3 Chronic kidney disease, stage 3 (moderate) Office Visit 04/14/2018 2:28p [facility] Delroy Forte I25.10 [facility] Of Karina Hilliard M.D. disease of [place] coronary artery w/o ang pctrs J18.9 Pneumonia, unspecified organism R79.89 Other specified abnormal findings of blood chemistry Office Visit 04/14/2018 10:58a [facility] Maryjane Pauline, J18.9 Pneumonia, Assoc,pc SPECIAL SERVICES SUPERVISOR unspecified Hospitalists organism R07.9 Chest pain, unspecified J96.11 Chronic respiratory failure with hypoxia N18.3 Chronic kidney disease, stage 3 (moderate) Office Visit 04/13/2018 10:58a [facility] Maryjane Pauline, J18.9 Pneumonia, Assoc,pc SPECIAL SERVICES SUPERVISOR unspecified Hospitalists organism R07.9 Chest pain, unspecified I10 Essential (primary) hypertension J96.11 Chronic respiratory failure with hypoxia N18.3 Chronic kidney disease, stage 3 (moderate) Office Visit 04/13/2018 3:14p [facility] Delroy Forte R07.89 Other chest Of Karina Hilliard M.D. pain R79.89 Other specified abnormal findings of blood chemistry J18.9 Pneumonia, unspecified organism 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[place] coronary artery w/o ang pctrs J40 Bronchitis, not specified as acute or chronic Office Visit 04/12/2018 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 I50.32 Chronic diastolic (congestive) heart failure I11.0 Hypertensive heart disease with heart failure I48.0 Paroxysmal atrial fibrillation D64.9 Anemia, unspecified E66.8 Other obesity E03.9 Hypothyroidism, unspecified Office Visit 02/26/2018 1:30p Pulmonology And Sharon R06.02 Shortness of Sleep Services Of MD Brittani breath [facility] J45.20 Mild intermittent asthma, uncomplicated G47.33 Obstructive sleep apnea (adult) (pediatric) Office Visit 02/17/2018 [facility] Avinash Romero, D47.1 Chronic 3:00p Center Of [facility] Jeane myeloproliferative AT [place] disease D64.9 Anemia, unspecified I21.4 Non-St elevation (Nstemi) myocardial infarction Office Visit 02/13/2018 10:20a Cardiology You Duggan I25.2 Old myocardial Services Of [facility] Danny, DO infarction AT [place] FAC I25.119 [facility] disease of [place] cor art w unsp ang pctrs I50.32 Chronic diastolic (congestive) heart failure I48.0 Paroxysmal atrial fibrillation N18.9 Chronic kidney disease, unspecified D64.9 Anemia, unspecified E66.8 Other obesity E03.9 Hypothyroidism, unspecified Office Visit 02/03/2018 [facility] Bennie Herron, Z48.812 Encntr for 2:40p Of [facility] AT [facility] Jeane, FAC, surgical aftcr FSCAI following surgery on the circ sys Office Visit 02/02/2018 [facility] Shanda I20.9 Angina pectoris, 1:14p Assoc,carli Gregory, D.O. unspecified Hospitalists I50.32 Chronic diastolic (congestive) heart failure I48.0 Paroxysmal atrial fibrillation I11.0 Hypertensive heart disease with heart failure Office Visit 02/01/2018 [facility] Shanda I50.32 Chronic diastolic 1:14p Assoc,pc Colt, D.O. (congestive) heart Hospitalists failure 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 J96.11 Chronic respiratory failure with hypoxia G25.81 Restless legs syndrome N18.3 Chronic kidney disease, stage 3 (moderate) Office Visit 01/31/2018 1:13p [facility] Shanda D64.9 Anemia, Assoc,carli Gregory D.O. unspecified Hospitalists R07.9 Chest pain, unspecified I48.91 Unspecified atrial fibrillation E03.9 Hypothyroidism, unspecified G25.81 Restless legs syndrome Office Visit 01/31/2018 1:29p [facility] Saad Hoskins R07.9 Chest pain, Of [facility] Jeane Holley, unspecified FAC, [facility] Office Visit 01/27/2018 11:56a [facility] I20.0 Unstable angina Assoc,carli Singh, Martaists Jeane G25.81 Restless legs syndrome J96.11 Chronic respiratory failure with hypoxia I48.91 Unspecified atrial fibrillation S30.1xxA Contusion of abdominal wall, initial encounter D64.9 Anemia, unspecified Office Visit 01/26/2018 [facility] J96.21 Acute and chronic 11:56a Asscarli dickinson M.D. 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 [place] I48.91 Unspecified 11:52a Assoc,carli Singh M.D. atrial Hospitalists fibrillation J96.21 Acute and chronic respiratory failure with hypoxia I48.0 Paroxysmal atrial fibrillation N18.3 Chronic kidney disease, stage 3 (moderate) K25.9 Gastric ulcer, unsp as acute or chronic, w/o hemor or perf Office Visit 01/22/2018 11:52a [facility] Yuval I20.9 Angina pectoris, Assoc,carli Marshall M.D. unspecified Hospitalists N18.9 Chronic kidney disease, unspecified I48.91 Unspecified atrial fibrillation D64.9 Anemia, unspecified Office Visit 01/22/2018 9:22a [facility] Bennie Herron, R07.9 Chest pain, Of [facility] AT [facility], [facility], unspecified FSCAI R79.89 Other specified abnormal findings of blood chemistry Office Visit 01/21/2018 11:50a [facility] Bryson I20.0 Unstable angina Assoc,carli Steiner M.D. Hospitalists I48.91 Unspecified atrial fibrillation G47.33 Obstructive sleep apnea (adult) (pediatric) N18.9 Chronic kidney disease, unspecified J96.10 Chronic respiratory failure, unsp w hypoxia or hypercapnia Office Visit 01/21/2018 [place] Forte I25.110 [facility] disease of 12:37p Cardiology Massimo Hilliard M.D. [place] art w [employer] unstable ang pctrs Office Visit 01/20/2018 [facility] Avinash D47.1 Chronic 2:40p Center Of [facility] Jeane Romero myeloproliferative AT [place] disease D53.9 Nutritional anemia, unspecified Office Visit 01/16/2018 3:40p [facility] You S. I20.0 Unstable angina Of Karina Delgado, DO [facility] I25.119 [facility] disease of [place] cor art w unsp ang pctrs D64.9 Anemia, unspecified N18.9 Chronic kidney disease, unspecified I48.0 Paroxysmal atrial fibrillation I50.32 Chronic diastolic (congestive) heart failure I25.2 Old myocardial infarction E78.5 Hyperlipidemia, unspecified Z87.11 Personal history of peptic ulcer disease E03.9 Hypothyroidism, unspecified Office Visit 12/30/2017 3:20p [facility] You S. I25.119 [facility] Of Karina Delgado, DO disease of [facility] [place] art w unsp ang pctrs D64.9 Anemia, unspecified N18.9 Chronic kidney disease, unspecified I48.0 Paroxysmal atrial fibrillation I50.32 Chronic diastolic (congestive) heart failure Z87.11 Personal history of peptic ulcer disease E66.8 Other obesity I25.2 Old myocardial infarction E78.5 Hyperlipidemia, unspecified Office Visit 12/11/2017 [place]Laurie Duggan G43.009 Migraine w/o 3:45p Neurologic Serv Of Jeane Hurst aura, not [employer] intractable, w/o status migrainosus G89.4 Chronic pain syndrome G44.221 Chronic tension-type headache, intractable Office Visit 12/03/2017 12:00p [facility] You Delgado, DO R51 Headache [facility] FACC I25.119 [facility] disease of [place] cor art w uns ang pctrs E78.5 Hyperlipidemia, unspecified I48.0 Paroxysmal atrial fibrillation N18.9 Chronic kidney disease, unspecified I50.32 Chronic diastolic (congestive) heart failure Z87.11 Personal history of peptic ulcer disease E66.01 Morbid (severe) obesity due to excess calories D64.9 Anemia, unspecified Office Visit 11/11/2017 [facility] Avinash Romero, D47.1 Chronic 4:00p Center Of Karina Ching myeloproliferative AT [place] disease D53.9 Nutritional anemia, unspecified Office Visit 10/16/2017 [place] car[place] Duggan G25.0 Essential 11:30a Neurologic Serv Of Jeane Hurst tremor [facility] R51 Headache I25.119 [facility] disease of [place] cor art w unsp ang pctrs Office Visit 10/10/2017 10:20a Cardiology You S. I25.119 [facility] Services Of [facility] AT [facility], DO disease of [facility] [place] art w unsp ang pctrs I48.0 Paroxysmal atrial fibrillation E78.5 Hyperlipidemia, unspecified E03.9 Hypothyroidism, unspecified N18.9 Chronic kidney disease, unspecified I50.32 Chronic diastolic (congestive) heart failure D64.9 Anemia, unspecified Z87.11 Personal history of peptic ulcer disease Office Visit 08/22/2017 11:00a Cardiology You SKandi I25.119 [facility] Services Of [facility] AT [facility], disease of [facility] [place] art w unsp ang pctrs E66.01 Morbid (severe) obesity due to excess calories I48.0 Paroxysmal atrial fibrillation E78.5 Hyperlipidemia, unspecified E03.9 Hypothyroidism, unspecified I50.32 Chronic diastolic (congestive) heart failure N18.9 Chronic kidney disease, unspecified D64.9 Anemia, unspecified Z87.11 Personal history of peptic ulcer disease Office Visit 08/19/2017 [facility] Avinash Romero, D47.1 Chronic 4:00p Center Of Karina Ching myeloproliferative AT [place] disease R53.83 Other fatigue D53.9 Nutritional anemia, unspecified Office Visit 07/01/2017 Pulmonology And Sharon J45.20 Mild intermittent 1:30p Sleep Services Of MD Brittani asthma, [facility] uncomplicated E66.01 Morbid (severe) obesity due to excess calories Office Visit 06/27/2017 9:40a Cardiology You SKandi I25.119 [facility] Services Of [facility] AT [facility], disease of [facility] [place] art w unsp ang pctrs I48.0 Paroxysmal atrial fibrillation E78.5 Hyperlipidemia, unspecified E03.9 Hypothyroidism, unspecified I50.32 Chronic diastolic (congestive) heart failure N18.9 Chronic kidney disease, unspecified E66.01 Morbid (severe) obesity due to excess calories D64.9 Anemia, unspecified Z87.11 Personal history of peptic ulcer disease Office Visit 06/18/2017 4:00p [facility] Jaziel Duggan I20.8 Other forms of Services Of Karina Hurst M.D. angina pectoris R51 Headache G25.0 Essential tremor Office Visit 05/23/2017 10:40a Cardiology You Duggan I25.119 [facility] Services Of [facility] AT Delgado, DO disease of [facility] [place] art w unsp ang pctrs I48.0 Paroxysmal atrial fibrillation I50.9 Heart failure, unspecified E03.9 Hypothyroidism, unspecified Z87.11 Personal history of peptic ulcer disease D64.9 Anemia, unspecified N18.9 Chronic kidney disease, unspecified E78.5 Hyperlipidemia, unspecified R06.02 Shortness of breath Office Visit 05/01/2017 4:00p [place] Jaziel Hurst, R51 Headache Neurologic Serv Of [facility] Jeane I20.8 Other forms of angina pectoris Office Visit 04/01/2017 3:40p [facility] Avinashvilma Romero, D64.9 Anemia, Center Of [facility] AT .DKandi unspecified [place] Office Visit 12/30/2016 1:00p Pulmonology And Sharon R06.02 Shortness of Sleep Services Of MD Brittani breath [facility] J45.20 Mild intermittent asthma, uncomplicated G47.33 Obstructive sleep apnea (adult) (pediatric) E66.01 Morbid (severe) obesity due to excess calories Office Visit 10/16/2016 10:21a [facility] R06.02 Shortness of Assoc,carli Varner, SPECIAL SERVICES SUPERVISOR breath Hospitalists I50.9 Heart failure, unspecified E03.9 Hypothyroidism, unspecified J18.1 Lobar pneumonia, unspecified organism Office Visit 10/15/2016 2:45p Pulmonology And Sharon J12.9 Viral pneumonia, Sleep Services Of MD Brittani unspecified [employer] J45.21 Mild intermittent asthma with (acute) exacerbation I50.31 Acute diastolic (congestive) heart failure Office Visit 10/15/2016 10:16a [facility] R06.02 Shortness of Assoc,pc Telly, SPECIAL SERVICES SUPERVISOR breath Hospitalists E03.9 Hypothyroidism, unspecified I50.9 Heart failure, unspecified J18.1 Lobar pneumonia, unspecified organism Office Visit 10/14/2016 2:44p Pulmonology And Sharon J45.21 Mild intermittent Sleep Services Of MD Brittani asthma with [employer] (acute) exacerbation J12.9 Viral pneumonia, unspecified Office Visit 10/14/2016 10:16a [facility] R06.02 Shortness of Assoc,carli Varner, SPECIAL SERVICES SUPERVISOR breath Hospitalists E03.9 Hypothyroidism, unspecified I50.9 Heart failure, unspecified J18.1 Lobar pneumonia, unspecified organism Office Visit 10/13/2016 [facility] R06.02 Shortness of 10:15a Assoc,pc Kelley, SPECIAL SERVICES SUPERVISOR breath Hospitalists E03.9 Hypothyroidism, unspecified I50.9 Heart failure, unspecified J18.1 Lobar pneumonia, unspecified organism Office Visit 10/12/2016 [facility] R06.02 Shortness of 10:14a Assoc,carli Benson, SPECIAL SERVICES SUPERVISOR breath Hospitalists I50.9 Heart failure, unspecified E03.9 Hypothyroidism, unspecified J18.1 Lobar pneumonia, unspecified organism Office Visit 10/11/2016 10:14a [facility] R06.02 Shortness of Assoc,carli Varner, SPECIAL SERVICES SUPERVISOR breath Hospitalists E03.9 Hypothyroidism, unspecified I50.9 Heart failure, unspecified J18.1 Lobar pneumonia, unspecified organism Office Visit 10/10/2016 10:13a [facility] R06.02 Shortness of Assoc,carli Varner, SPECIAL SERVICES SUPERVISOR breath Hospitalists E03.9 Hypothyroidism, unspecified I50.9 Heart failure, unspecified Office Visit 10/09/2016 10:12a [facility] Favio Mcqueen, R06.02 Shortness of Assoccarli M.D. breath Hospitalists E03.9 Hypothyroidism, unspecified I50.9 Heart failure, unspecified Office Visit 10/03/2016 9:29a [facility] I21.4 Non-St elevation Assoccarli M.D. (Nstemi) Hospitalists myocardial infarction I48.91 Unspecified atrial fibrillation J45.20 Mild intermittent asthma, uncomplicated G47.33 Obstructive sleep apnea (adult) (pediatric) Office Visit 10/02/2016 9:28a [facility] I21.4 Non-St elevation Assoc,carli Singh M.D. (Nstemi) Hospitalists myocardial infarction I48.91 Unspecified atrial fibrillation J45.20 Mild intermittent asthma, uncomplicated G47.33 Obstructive sleep apnea (adult) (pediatric) Office Visit 10/02/2016 1:07p [facility] Amber Kaminski, I25.10 [facility] heart [facility] Jeane disease of [place] coronary artery w/o ang pctrs I48.91 Unspecified atrial fibrillation [facility] 10/[facility]2016 [facility] Asscarli dickinson M.D. (Nstemi) Hospitalists myocardial infarction I48.91 Unspecified atrial fibrillation J45.20 Mild intermittent asthma, uncomplicated G47.33 Obstructive sleep apnea (adult) (pediatric) Office Visit 09/30/2016 9:27a [facility] [place] I21.4 Non-St elevation Assoccarli M.D. (Nstemi) Hospitalists myocardial infarction I48.91 Unspecified atrial fibrillation J45.20 Mild intermittent asthma, uncomplicated Office Visit 09/29/2016 1:06p [facility] Zack Pina I20.9 Angina pectorisTito M.D. unspecified I48.91 Unspecified atrial fibrillation Office Visit 09/29/2016 9:27[facility]St [facility] Asscarli dickinson M.D. (Nstemi) Hospitalists myocardial infarction I48.91 Unspecified atrial fibrillation J45.20 Mild intermittent asthma, uncomplicated Office Visit 09/28/2016 9:26[facility]-St elevation Asscarli dickinson M.D. (Nstemi) Hospitalists myocardial infarction I48.91 Unspecified atrial fibrillation J45.20 Mild intermittent asthma, uncomplicated G47.33 Obstructive sleep apnea (adult) (pediatric) Office Visit 09/27/2016 [facility] Daniela Lopez, R01.1 Cardiac murmur, 9:26a carli Murray M.D. unspecified Hospitalists I48.91 Unspecified atrial fibrillation J45.20 Mild intermittent asthma, uncomplicated Office Visit 09/27/2016 1:05p [facility] Zack Pina I21.4 Non-St elevation Jeane Francis (Nstemi) myocardial infarction Office Visit 09/26/2016 9:26[facility] R07.1 Chest pain on Assoc,pc Jeane Connolly breathing Hospitalists I48.91 Unspecified atrial fibrillation J45.20 Mild intermittent asthma, uncomplicated Office Visit 09/25/2016 9:25a [facility] Ramona Ashley, R07.1 Chest pain on Assoc,pc DO breathing Hospitalists J45.20 Mild intermittent asthma, uncomplicated I48.91 Unspecified atrial fibrillation G47.33 Obstructive sleep apnea (adult) (pediatric) Office Visit 09/25/2016 8:35a [facility] Anastasiya Vergara R07.9 Chest pain, Of [facility] AT [facility] MD Annamaria, unspecified FACC, FSCAI Office Visit 09/25/2016 8:34a [facility] Amber Kaminski, Of [facility] MAlejandro Office Visit 07/04/2016 2:45p [place]ie Duggan R51 Headache Neurologic Serv Jeane Hurst Of [facility] Office Visit 06/11/2016 2:00p [place] [facility] Jaziel Hdz Headache Services Of Karina Hurst M.D. G89.29 Other chronic pain Office Visit 06/10/2016 1:30p Pulmonology And Sharon R06.02 Shortness of Sleep Services Of MD Brittani breath [facility] J45.909 Unspecified asthma, uncomplicated G47.9 Sleep disorder, unspecified E66.01 Morbid (severe) obesity due to excess calories Office Visit 04/16/2016 [place] [facility] Avinash Romero, D47.1 Chronic 3:40p Center Of Karina Ching myeloproliferative AT [place] disease R53.83 Other fatigue G89.4 Chronic pain syndrome D63.1 Anemia in chronic kidney disease N18.9 Chronic kidney disease, unspecified Office Visit 04/02/2016 [place] Donna Romero, D47.1 Chronic 1:00p Center Of Karina Ching myeloproliferative AT [facility] G89.4 Chronic pain syndrome R53.83 Other fatigue D64.9 Anemia, unspecified Office Visit 02/06/2016 [place] [facility] Avinash Romero D47.1 Chronic 3:00p Center Of Karina Ching myeloproliferative AT [facility] G89.4 Chronic pain syndrome Office Visit 04/06/2015 [place] Jaziel Duggan 333.94 Restless Leg 10:00a Neurologic Serv Of Jeane Hurst Syndrome [employer] 333.1 Tremor Essential & Other Forms V49.3 Sensory Problem Limbs Office Visit 04/01/2013 [place]Laurie Duggan 333.1 Tremor 10:30a Neurologic Serv Of Jeane Hurst Essential & [employer] Other Forms 333.94 Restless Leg Syndrome Office Visit 03/18/2012 11:45a [facility] Jaziel Duggan 354.2 Lesion Ulnar Neurologic Serv Of Karina Hurst M.D. Nerve 333.94 Restless Leg Syndrome 333.1 Tremor Essential & Other Forms Office Visit 02/18/2011 10:45a [facility] Services Of [place] 278.00 Obesity Unspec [facility] [place] 380.4 Impacted Cerumen 389.10 Hearing Loss Sensorineural Unspec 787.20 Dysphagia, Unspecified Office Visit 04/28/2009 [facility] 567.9 Peritonitis 12:30a Asscarli dickinson M.D. Unspecified Hospitalists 780.97 Altered Mental Status 278.00 Obesity Unspec 277.9 Metabolic Disorder Unspec Office Visit 04/27/2009 [facility] 567.9 Peritonitis 1:00a carli Murray M.D. Unspecified Hospitalists 780.97 Altered Mental Status 278.00 Obesity Unspec 244.9 Hypothyroidism Other Unspec Office Visit 04/26/2009 [facility] 567.9 Peritonitis 1:00a carli Murray M.D. Unspecified Hospitalists 780.97 Altered Mental Status 278.00 Obesity Unspec 244.9 Hypothyroidism Other Unspec Office 09/30/2007 Neurosurgery Aureliano Crespo 721.3 Spondylosis Lumbar W/O Visit 11:00a Services Of Karina Gayle M.D. Myelopathy AT [place] Office 06/03/2007 Neurosurgery Aureliano Crespo 721.3 Spondylosis Lumbar W/O Visit 4:00p Services Of Karina Gayle M.D. Myelopathy AT [place] Office 03/04/2007 Neurosurgery Aureliano Crespo 721.3 Spondylosis Lumbar W/O Visit 3:30p Services Of Karina Gayle M.D. Myelopathy AT [place] Office 11/26/2006 Neurosurgery Aureliano Crespo 721.3 Spondylosis Lumbar W/O Visit 3:30p Services Of Karina Gayle M.D. Myelopathy AT [place] Office 08/27/2006 Neurosurgery Aureliano Crespo 724.02 Spinal Stenosis, Visit 3:00p Services Of Karina Gayle M.D. Lumbar Region, W/O AT [place] Neurogenic Claudication Office 05/07/2005 [facility] Zack Pina 794.31 Electrocardiogram Visit 1:00p Jeane Francis (ECG) (EKG) Abnormal 401.1 Hypertension Benign Plan of Treatment Future Appointment(s):08/31/2018 2:40 pm - Arnold Holguin MD at [facility]08/10/2018 1:45 pm - Sharon Peter MD at Pulmonology [facility] Sleep [facility] Of [facility]05/06/2019 3:45 pm - Jaziel Hurst M.D. at [place] [facility] Of [facility]07/07/2018 - Arnold Holguin MDN18.3 Chronic kidney disease, stage 3 (moderate)I50.32 Chronic diastolic (congestive) heart xtqoxnhH61.0 Paroxysmal atrial fjldxmidswjbP75.119 Atherosclerotic heart disease of [place] coronary artery withD64.89 Other specified talhbgaC97.072 Idiopathic gout, left ankle and footNew Medication:Prednisone 20 mg - take 2 tab daily for 7 days.Follow up:6 weeks
--- OUTSIDE RECORDS SUMMARY | 2018-07-19 05:31 | XMS REPORT | Continuity of Care Document ---
:1940 External Reference #:[id number] Author Name Elizabeth Hoffman Care Team Providers Name Role Phone Manas Villeda MD Primary Care Physician Unavailable Payers Type Date Identification Numbers Payment Provider Subscriber Effective: Policy Number: [id number] Medicare Jocelyne Rafaela Veronica 2018 PayID: [id number] [address] [facility] [place] [facility] [address] Effective: 2007 Policy Number: [id number] Medicare Jocelyne Rafaela Veronica Expires: 2018 PayID: [id number] [address] [place] [address] Policy Number: [id number] [facility] Jocelyne A Veronica PayID: [id number] [address] [place] [address] Advance Directives Description No Information Available Problems Date Description Provider Status Onset: 04/06/2015 Restless legs Jaziel Hurst M.D. 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 Stop MD taking 1 day after resolution of gout flare. Amiodarone Active Tablets 100mg 90tabs 1 by mouth You S. HCL 018 every day, Danny, DO use generic [facility] Plavix Active Tablets 75mg 90tabs Take one You S. 018 tablet by Danny, DO mouth daily FAC Metoprolol Active Tablets 25mg 180tabs 1 by mouth You S. Tartrate 018 twice a day DO Danny [facility] Electric Bed Active Electric bed R26.9 You S. 018 for home use DO Danny [facility] I50.32 R60.0 Repatha Sureclick 12/03/2017 Active Solution 140mg/ml 2ml sc [id number] ( You S. Auto-Inject has not Danny, started yet) DO [facility] Isosorbide 08/22/2017 Active Tablets ER 120mg 90tab [...] 08/15/2016 Active Misc 1unit please use Lexus Herrera s o2 at 2l/min 0 Brittani, with [...] Capsules 150mg 90cap Take 1 Benny T. s Capsule Rocael, After Dinner ( taken 1 hour before supper) Prilosec Active Capsules DR 40mg 1 by mouth Unknown every day Pantoprazole 05/18/2018 - Hx Tablets DR 20mg 30tab one each Peter T. Sodium 05/30/2018 s morning Rocael, before MD breakfast Metoprolol 02/13/2018 - Hx Tablets 25mg [...] Capsules DR 40mg 90cap 1 orally I Yuo Duggan 05/18/2018 s qd-takes 1 2 Delgado, [...] every Jaziel S. 12/03/2016 bs night at [place], bedtime for M.D. 1 week then 2 [...] Tablets ER 30mg 180ta take one I Youprimitivo Duggan Mononitrate ER 08/22/2017 24HR bs tablet by 2 Danny mouth twice 5 DO FACC daily . [...] Tablets 25mg 180ta 1 by mouth You Duggan Tartrate 01/30/2018 bs twice a day Delgado, [...] Available Vital Signs Date Vital Result Comment 06/26/2018 10:39am Heart Rate 60 /min BP [...] Date Facility Test Result H/L Range Note CBC Auto Diff 06/02/2018 [facility] White Blood 5.3 10^3/uL N 3.5-10.[address] [place] [address] [phone] Red Blood Count 3.52 10^6/uL Low 4.00-5.40 [...] Blood Cells % 0 Laboratory test 06/02/2018 [facility] Uric Acid 7.7 mg/dL High 2.3-6.6 finding [address] [place] [address] [phone] Urinalysis 06/02/2018 [facility] Urine Color Yellow Profile [address] [place] [address] [phone] Urine Appearance Clear Urine Specific [place] 1.013 N 1.010-1.030 Urine pH 6.0 N [...] Present Abnormal Absent Urine Culture And 06/02/2018 [facility] Urine Culture SEE RESULT [address] [place] [address] [phone] CBC No Diff 02/05/2018 [facility] White Blood 6.5 10^3/uL N 3.5-[address] Count .8 [place] [id number] [phone] Red Blood Count 3.52 10^6/uL Low 4.00-5.40 [...] um3 N 7.4-10.4 CBC Auto Diff 02/03/2018 [facility] White Blood 7.0 10^3/uL N 3.5-10.[address] [place] [address] [phone] Red Blood Count 3.44 10^6/uL Low 4.00-5.40 [...] Blood Cells % 0 Laboratory test 01/20/2018 [facility] Ferritin 151.0 N 11-[address] ng/[place] [address] [phone] Laboratory test 01/20/2018 [facility] TSH (Thyroid 8.23 High 0.34-5.[address] Stim Horm) mcIU/[place] [address] [phone] Free T4 (Free Thyroxine) 1.17 ng/dL High 0.61-1.12 Cath Panel 01/20/2018 [facility] Partial 26.2 seconds N 26.0- 36.[address] [place] [address] PTT [phone] Inr/Protime 01/20/2018 [facility] Inr 0.93 N 0.77-1.[address] [place] [address] [phone] Comp Metabolic 01/20/2018 [facility] Sodium 138 mmol/L N 135- [address] [place] [address] [phone] Chloride 101 mmol/L N 101-111 Co2 Carbon [...] Egfr Non- 32.6 >60 Egfr 39.4 >60 4 Potassium 5.2 mmol/L High 3.5-5.0 Anion Gap 9 mmol/L N 2-11 CBC Auto Diff 01/20/2018 [facility] White Blood 6.4 10^3/uL N 3.5-10.[address] [place] [address] [phone] Red Blood Count 2.91 10^6/uL Low 4.00-5.40 [...] Blood Cells % 0 Laboratory test 08/15/2017 [facility] LDL Cholesterol 103 mg/dL [address] [place] [address] [phone] TSH (Thyroid Stim Horm) 15.82 mcIU/mL High 0.34-5.60 Laboratory test 06/26/2017 [facility] Magnesium 1.8 mg/dL Low 1.9-2.[address] [place] [address] [phone] Free T4 (Free Thyroxine) 1.19 ng/dL High 0.61-1.12 TSH (Thyroid Stim Horm) 10.61 mcIU/mL High 0.34-5.60 B-Type Natriuretic Peptide BNP 351 pg/mL High 6 Laboratory test 06/26/2017 [facility] LDL Cholesterol 126 mg/dL [address] [place] [address] [phone] Comp Metabolic 06/26/2017 [facility] Sodium 138 mmol/L N 133- [address] [place] [address] [phone] Potassium 4.0 mmol/L N 3.5-5.0 Chloride 102 [...] Egfr Non- 38.0 >60 Egfr 48.9 >60 8 Basic Metabolic Panel 06/11/2016 [facility] Sodium 136 mmol/L N 133-[address] [place] [address] [phone] Potassium 5.2 mmol/L High 3.5-5.0 Chloride 106 mmol/L N 101-111 Co2 Carbon Dioxide 23 mmol/L N 22-32 Anion Gap 7 mmol/L N 2-11 Glucose 135 mg/dL High 70-100 Blood Urea Nitrogen 35 mg/dL High 6-24 Creatinine 1.26 mg/dL High 0.51-0.95 BUN/Creatinine Ratio 27.8 High 8-20 Calcium 9.4 mg/dL N 8.6-10.3 Egfr Non- 41.3 N >60 Egfr 53.1 N >60 9 1 *Ascorbic acid is present which may interfere with detection of blood. 2 SEE RESULT BELOW Name: JOCELYNE MARTIN : [address]: Arnold Holguin MD Acct: [id number] Unit: [id number] AGE: 77 Location: LAB Re06/02/18 SEX: F Status: REG REF SPEC: [id number] OSCAR: 06/02/18-[address]: Arnold Holguin MD REQ: [id number] RECD: 06/04/18 STATUS: COMP _ SOURCE: URINE SPDESC: ORDERED: Urine Culture Urine Source: Clean Catch Procedure Result Reported Site Urine Culture Final 06/05/18- 926 ML No growth of clinically significant organisms * ML - Main Lab . END OF REPORT DEPARTMENT OF PATHOLOGY, [address] [place] [address] Ramos Durand M.D. Director [facility] # [id number] [address] HERRON CELL PHONE [phone] 4 Because ethnic data is not always [...] 5 Kidney failure <15 (or dialysis) 5 Desirable: <100 Near Optimal: 100-129 Borderline High: 130-159 High: 160-189 Very High: >189 6 >100 to <200 pg/mL: likely compensated congestive heart failure (CHF) 200 to 400 pg/mL: likely moderate CHF >400 pg/mL: likely moderate to severe CHF 7 Desirable: <100 Near Optimal: 100-129 Borderline High: 130-159 High: 160-189 Very High: >189 8 Because ethnic data is not always readily [...] 15-29 5 Kidney failure <15 (or dialysis) 9 Because ethnic data is not always [...] dialysis) Procedures Date Code Description Status 06/26/2018 98586 EKG Tracing & Interpretation Completed 04/09/2018 90802 EKG Tracing & Interpretation Completed 03/25/2018 19416 Stress Test Completed 03/25/2018 43079 Myocardial Perfusion Imaging Tomographic (Spect) Completed Multiple Studies 02/03/2018 14428 EKG Tracing & Interpretation Completed 01/31/2018 25771 EKG, Interpretation Only Completed 01/26/2018 47285 EKG, Interpretation Only Completed 01/25/2018 46726 ECHO Transthorasic Realtime 2D W Doppler & Color Flow Completed Hosp 01/24/2018 64381 EKG, Interpretation Only Completed 01/24/2018 30352 Insert Non-Tunneled Venous Catether Completed 01/23/2018 86452 Percutaneous Transcatheter Placement Of Intracoronary Completed Stent 01/23/2018 43327 EKG, Interpretation Only Completed 01/23/2018 85944 Cath PLMT&NJX L Ventriculog Img S&I Completed 01/16/2018 33815 EKG Tracing & Interpretation Completed 12/30/2017 25506 EKG Tracing & Interpretation Completed 12/29/2017 98871 Diffusing Capacity Completed 12/29/2017 04343 Pulmonary Function><Bronchodil Completed 12/03/2017 13483 EKG Tracing & Interpretation Completed 10/10/2017 54468 EKG Tracing & Interpretation Completed 05/23/2017 61408 EKG Tracing & Interpretation Completed 10/14/2016 70549 ECHO Transthorasic Realtime 2D W Doppler & Color Flow Completed Hosp 10/11/2016 40792 EKG, Interpretation Only Completed 10/01/2016 66912 Cath PLMT&NJX L Ventriculog Img S&I Completed 09/29/2016 46882 EKG, Interpretation Only Completed 09/28/2016 36882 EKG, Interpretation Only Completed 09/26/2016 31104 Treadmill Interp/Report Only Completed 09/26/2016 75432 Stress Test Supervsn W/Out I/R Completed 09/25/2016 46420 Color Flow Doppler/Interp & Reprt Completed 09/25/2016 17014 Pulse Wave/Continuous-Interp.RPT Completed 09/25/2016 63854 Echocardiography, Transesophageal, Real Time W/Image Completed 2D W/W/O M-M 09/25/2016 45064 Cardioversion Completed 08/06/2016 103330592 Diabetic Retinal Eye Exam Completed 07/04/2016 34325 Plethysmography Determination Lung Volumes & Per Completed Airway Resist 07/04/2016 98680 Pulmonary Function><Bronchodil Completed 07/04/2016 99771 Diffusing Capacity Completed 07/03/2016 05585 Polysomnography Sleep Staging 4+ Parameters Completed 01/04/2016 05307 Nerve Conduction 01-02 Studies Completed 03/18/2012 29299 Nerve Conduction, Sensory Completed 03/18/2012 92560 Nerve Conduction, Motor W/O F-Wave Study Completed 02/18/2011 76255 Remove Impacted Cerumen Completed 05/07/2005 72546 Treadmill Interp/Report Only Completed 05/07/2005 59368 Stress Test Supervsn W/Out I/R Completed Encounters Type Date Location Provider Dx Diagnosis Office Visit 06/09/2018 [facility] Avinash Romero, D47.1 Chronic 11:00a [facility] Jeane myeloproliferative AT [place] disease D64.89 Other specified anemias I20.9 Angina pectoris, unspecified Office Visit 05/18/2018 3:15p [facility] Benny Vergara E66.8 Other obesity MD Rocael M48.07 Spinal stenosis, lumbosacral region G44.221 Chronic tension-type headache, intractable R10.9 Unspecified abdominal pain K59.00 Constipation, unspecified Office Visit 05/12/2018 [facility] Avinash Ronmegan, D47.1 Chronic 2:40p Center Karina Ching myeloproliferative AT [place] disease D64.9 Anemia, unspecified Office Visit 05/01/2018 11:15a Cardiology You Duggan I25.119 [facility] AT [facility], DO disease of [place] FAC [place] cor art w unsp ang pctrs I48.0 Paroxysmal atrial fibrillation N18.9 Chronic kidney disease, unspecified I25.2 Old myocardial infarction I11.0 Hypertensive heart disease with heart failure E66.8 Other obesity I50.32 Chronic diastolic (congestive) heart failure G25.81 Restless legs syndrome D64.9 Anemia, unspecified E03.9 Hypothyroidism, unspecified Office Visit 04/30/2018 [facility] [place] Jaziel Duggan I20.9 Angina pectoris, 3:15p Neurologic Serv Of Jeane Hurst unspecified [facility] G44.221 Chronic tension-type headache, intractable G25.0 Essential tremor M48.07 Spinal stenosis, lumbosacral region Office Visit 04/15/2018 10:59a [facility] Maryjane Pauline, J18.9 Pneumonia, Assoc,pc [employer] unspecified Hospitalists organism R07.9 Chest pain, unspecified J96.11 Chronic respiratory failure with hypoxia N18.3 Chronic kidney disease, stage 3 (moderate) Office Visit 04/14/2018 2:28p [facility] Delroy Forte I25.10 Aths[facility] heart Of Karina Hilliard M.D. disease of [place] coronary artery w/o ang pctrs J18.9 Pneumonia, unspecified organism R79.89 Other specified abnormal findings of blood chemistry Office Visit 04/14/2018 10:58a [facility] Maryjane Pauline, J18.9 Pneumonia, Assoc,pc [employer] unspecified Hospitalists organism R07.9 Chest pain, unspecified J96.11 Chronic respiratory failure with hypoxia N18.3 Chronic kidney disease, stage 3 (moderate) Office Visit 04/13/2018 3:14p [facility] Delroy Forte R07.89 Other chest Of Karina Hilliard M.D. pain R79.89 Other specified abnormal findings of blood chemistry J18.9 Pneumonia, unspecified organism 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[place] coronary artery w/o ang pctrs J40 Bronchitis, not specified as acute or chronic Office Visit 04/13/2018 10:58a [facility] Maryjane Pauline, J18.9 Pneumonia, Assoc,pc [employer] unspecified Hospitalists organism R07.9 Chest pain, unspecified I10 Essential (primary) hypertension J96.11 Chronic respiratory failure with hypoxia N18.3 Chronic kidney disease, stage 3 (moderate) Office Visit 04/12/2018 [facility] J18.9 Pneumonia, 10:57a Assoc,pc [place] unspecified Hospitalists organism N18.3 Chronic kidney disease, stage 3 (moderate) I48.91 Unspecified atrial fibrillation E03.9 Hypothyroidism, unspecified Office Visit 04/09/2018 3:40p [facility] You Duggan I25.2 Old myocardial Of [facility] Delgado, DO infarction FACC 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[place] coronary artery w/o ang pctrs I50.32 Chronic diastolic (congestive) heart failure I11.0 Hypertensive heart disease with heart failure I48.0 Paroxysmal atrial fibrillation D64.9 Anemia, unspecified E66.8 Other obesity E03.9 Hypothyroidism, unspecified Office Visit 02/26/2018 1:30p Pulmonology And Sharon R06.02 Shortness of Sleep Services Of MD Brittani breath [facility] J45.20 Mild intermittent asthma, uncomplicated G47.33 Obstructive sleep apnea (adult) (pediatric) Office Visit 02/17/2018 [facility] Avinash Romero, D47.1 Chronic 3:00p [facility] Jeane myeloproliferative AT [place] disease D64.9 Anemia, unspecified I21.4 Non-St elevation (Nstemi) myocardial infarction Office Visit 02/13/2018 10:20a Cardiology You Duggan I25.2 Old myocardial Services [facility] Delgado, DO infarction AT [facility] 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 unspecified Hospitalists I50.32 Chronic diastolic (congestive) heart failure I48.0 Paroxysmal atrial fibrillation I11.0 Hypertensive heart disease with heart failure Office Visit 02/01/2018 [facility] I50.32 Chronic diastolic 1:14p Assoc,pc Colt, D.O. 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 unspecified Hospitalists R07.9 Chest pain, unspecified I48.91 Unspecified atrial fibrillation E03.9 Hypothyroidism, unspecified G25.81 Restless legs syndrome Office Visit 01/27/2018 11:56a [facility] Lennox Singh, I20.0 Unstable Assoccarli M.D. angina Hospitalists G25.81 Restless legs syndrome J96.11 Chronic respiratory failure with hypoxia I48.91 Unspecified atrial fibrillation S30.1xxA Contusion of abdominal wall, initial encounter D64.9 Anemia, unspecified Office Visit 01/26/2018 [facility] J96.21 Acute and chronic 11:56a Assoccaril M.D. respiratory Hospitalists failure with hypoxia 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[place] coronary artery w/o ang pctrs S30.1xxA Contusion of abdominal wall, initial encounter I48.91 Unspecified atrial fibrillation N18.3 Chronic kidney disease, stage 3 (moderate) D64.9 Anemia, unspecified Office Visit 01/25/2018 [facility] J96.21 Acute and chronic 11:55a Asscarli dickinson M.D. respiratory Hospitalists failure with hypoxia 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[place] coronary artery w/o ang pctrs I48.91 Unspecified atrial fibrillation G25.81 Restless legs syndrome N18.3 Chronic kidney disease, stage 3 (moderate) S30.1xxA Contusion of abdominal wall, initial encounter Office Visit 01/25/2018 9:51a [facility] Bennie Herron, I21.4 Non- St elevation Of Whip Operator AT [facility].D, FAC, (Nstemi) FSCAI myocardial infarction 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[place] coronary artery w/o ang pctrs Office Visit 01/24/2018 [facility] J96.21 Acute and chronic 11:54a Assoccarli M.D. respiratory Hospitalists failure with hypoxia 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[place] coronary artery w/o ang pctrs I48.0 Paroxysmal atrial fibrillation I48.91 Unspecified atrial fibrillation N18.3 Chronic kidney disease, stage 3 (moderate) K25.9 Gastric ulcer, unsp as acute or chronic, w/o hemor or perf G25.81 Restless legs syndrome Office Visit 01/24/2018 9:49a [facility] Bennie Herron, I21.4 Non- St elevation Of Whip Operator AT [facility].D., [facility], (Nstemi) FSCAI myocardial infarction 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[place] coronary artery w/o ang pctrs Office Visit 01/23/2018 [facility] Lennox I48.91 Unspecified 11:52a Assoc,carli Singh M.D. atrial Hospitalists fibrillation J96.21 Acute and chronic respiratory failure with hypoxia I48.0 Paroxysmal atrial fibrillation N18.3 Chronic kidney disease, stage 3 (moderate) K25.9 Gastric ulcer, unsp as acute or chronic, w/o hemor or perf Office Visit 01/22/2018 9:22a [facility] Bennie Herron, R07.9 Chest pain, [facility], unspecified FSCAI R79.89 Other specified abnormal findings of blood chemistry Office Visit 01/22/2018 11:52a [facility] Yuval I20.9 Angina pectoris, Assoc,carli Marshall M.D. unspecified Hospitalists N18.9 Chronic kidney disease, unspecified I48.91 Unspecified atrial fibrillation D64.9 Anemia, unspecified Office Visit 01/21/2018 11:50a [facility] Bryson I20.0 Unstable angina Assoc,carli Steiner M.D. Hospitalists I48.91 Unspecified atrial fibrillation G47.33 Obstructive sleep apnea (adult) (pediatric) N18.9 Chronic kidney disease, unspecified J96.10 Chronic respiratory failure, unsp w hypoxia or hypercapnia Office Visit 01/21/2018 [facility] Delroy Fotre I25.110 Athscl heart disease of 12:37p Cardiology Massimo Hilliard M.D. 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 D64.9 Anemia, unspecified N18.9 Chronic kidney disease, unspecified I48.0 Paroxysmal atrial fibrillation I50.32 Chronic diastolic (congestive) heart failure I25.2 Old myocardial infarction E78.5 Hyperlipidemia, unspecified Z87.11 Personal history of peptic ulcer disease E03.9 Hypothyroidism, unspecified Office Visit 12/30/2017 3:20p [facility] You SKandi I25.119 Athscl heart Of [facility], DO disease of [facility] [place] cor art w unsp ang pctrs D64.9 Anemia, unspecified N18.9 Chronic kidney disease, unspecified I48.0 Paroxysmal atrial fibrillation I50.32 Chronic diastolic (congestive) heart failure Z87.11 Personal history of peptic ulcer disease E66.8 Other obesity I25.2 Old myocardial infarction E78.5 Hyperlipidemia, unspecified Office Visit 12/11/2017 [facility] [place] carmen Duggan G43.009 Migraine w/o 3:45p Neurologic Serv Of Jeane Hurst aura, not [facility] intractable, w/o status migrainosus G89.4 Chronic pain syndrome G44.221 Chronic tension-type headache, intractable Office Visit 12/03/2017 12:00p [facility] You SKandi Delgado, DO R51 Headache [facility] I25.119 Athscl heart disease of [place] cor art unsp ang pctrs E78.5 Hyperlipidemia, unspecified I48.0 Paroxysmal atrial fibrillation N18.9 Chronic kidney disease, unspecified I50.32 Chronic diastolic (congestive) heart failure Z87.11 Personal history of peptic ulcer disease E66.01 Morbid (severe) obesity due to excess calories D64.9 Anemia, unspecified Office Visit 11/11/2017 [facility] Avinashvilma Romero, D47.1 Chronic 4:00p [facility] Jeane myeloproliferative AT [place] disease D53.9 Nutritional anemia, unspecified Office Visit 10/16/2017 [facility] Jaziel Duggan G25.0 Essential 11:30a Neurologic Serv Of Jeane Hurst tremor [facility] R51 Headache I25.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 unsp ang pctrs Office Visit 10/10/2017 10:20a [facility] I25.119 Ath[facility] heart Services Of [facility] AT [facility], DO disease of [facility] [place] cor art w unsp ang pctrs I48.0 Paroxysmal atrial fibrillation E78.5 Hyperlipidemia, unspecified E03.9 Hypothyroidism, unspecified N18.9 Chronic kidney disease, unspecified I50.32 Chronic diastolic (congestive) heart failure D64.9 Anemia, unspecified Z87.11 Personal history of peptic ulcer disease Office Visit 08/22/2017 11:00a Cardiology You Duggan I25.119 Ath[facility] heart Services Of [facility] AT [facility], DO disease of [facility] [place] cor art w uns ang pctrs E66.01 Morbid (severe) obesity due to excess calories I48.0 Paroxysmal atrial fibrillation E78.5 Hyperlipidemia, unspecified E03.9 Hypothyroidism, unspecified I50.32 Chronic diastolic (congestive) heart failure N18.9 Chronic kidney disease, unspecified D64.9 Anemia, unspecified Z87.11 Personal history of peptic ulcer disease Office Visit 08/19/2017 [facility] Avinash Romero, D47.1 Chronic 4:00p Center Of Karina Ching myeloproliferative AT [place] disease R53.83 Other fatigue D53.9 Nutritional anemia, unspecified Office Visit 07/01/2017 Pul[facility] And Sharon J45.20 Mild intermittent 1:30p Sleep Services Of MD Brittani asthma, [facility] uncomplicated E66.01 Morbid (severe) obesity due to excess calories Office Visit 06/27/2017 9:40a Cardiology You SKandi I25.119 Athscl heart Services Of [facility] AT [facility], disease of [facility] [place] cor art w [facility] ang pctrs I48.0 Paroxysmal atrial fibrillation E78.5 Hyperlipidemia, unspecified E03.9 Hypothyroidism, unspecified I50.32 Chronic diastolic (congestive) heart failure N18.9 Chronic kidney disease, unspecified E66.01 Morbid (severe) obesity due to excess calories D64.9 Anemia, unspecified Z87.11 Personal history of peptic ulcer disease Office Visit 06/18/2017 4:00p [facility] Jaziel Duggan I20.8 Other forms of Services [facility] Kellee Hurst. angina pectoris R51 Headache G25.0 Essential tremor Office Visit 05/23/2017 10:40a Cardiology You SKandi I25.119 [facility] heart [facility] AT [facility], disease of [facility] [place] cor art w uns ang pctrs I48.0 Paroxysmal atrial fibrillation I50.9 Heart failure, unspecified E03.9 Hypothyroidism, unspecified Z87.11 Personal history of peptic ulcer disease D64.9 Anemia, unspecified N18.9 Chronic kidney disease, unspecified E78.5 Hyperlipidemia, unspecified R06.02 Shortness of breath Office Visit 05/01/2017 4:00p [place] [facility]/[place] Jaziel Hurst, R51 Headache Neurologic Serv [facility] M.D. I20.8 Other forms of angina pectoris Office Visit 04/01/2017 3:40p [place] [facility] Avinash Velasquezmegan, D64.9 Anemia, Center [facility] AT M.D. 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 Hospitalists I50.9 Heart failure, unspecified E03.9 Hypothyroidism, unspecified J18.1 Lobar pneumonia, unspecified organism Office Visit 10/15/2016 2:45p [facility] And [place] J12.9 Viral pneumonia, Sleep Services Of MD Brittani unspecified [facility] J45.21 Mild intermittent asthma with (acute) exacerbation I50.31 Acute diastolic (congestive) heart failure Office Visit 10/15/2016 10:16a [facility] R06.02 Shortness of Assoc,pc Telly, FARM IMPLEMENT MECH[employer]IC breath Hospitalists E03.9 Hypothyroidism, unspecified I50.9 Heart failure, unspecified J18.1 Lobar pneumonia, unspecified organism Office Visit 10/14/2016 2:44p Pulmonology And [place] J45.21 Mild intermittent Sleep Services Of MD Brittani asthma with Whip Operator (acute) exacerbation J12.9 Viral pneumonia, unspecified Office Visit 10/14/2016 10:16a [facility] R06.02 Shortness of Assoc,pc Telly, [employer]ARM [employer] MECH[employer] breath Hospitalists E03.9 Hypothyroidism, unspecified I50.9 Heart failure, unspecified J18.1 Lobar pneumonia, unspecified organism Office Visit 10/13/2016 [facility] R06.02 Shortness of 10:15a Assoc,pc Kelley, [employer]ARM [employer]MENT MECH[employer]IC breath Hospitalists E03.9 Hypothyroidism, unspecified I50.9 Heart failure, unspecified J18.1 Lobar pneumonia, unspecified organism Office Visit 10/12/2016 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 ([place]) Hospitalists myocardial infarction I48.91 Unspecified atrial fibrillation J45.20 Mild intermittent asthma, uncomplicated G47.33 Obstructive sleep apnea (adult) (pediatric) Office Visit 10/02/2016 9:28a [facility] I21.4 Non-St elevation Assoc,carli Singh M.D. ([place]) Hospitalists myocardial infarction I48.91 Unspecified atrial fibrillation J45.20 Mild intermittent asthma, uncomplicated G47.33 Obstructive sleep apnea (adult) (pediatric) Office Visit 10/02/2016 1:07p [facility] Amber Kaminski, I25.10 [facility] Karina Ching disease of [place] coronary artery w/o ang pctrs I48.91 Unspecified atrial fibrillation Office Visit 10/01/2016 9:28a [facility] I21.4 Non-St elevation Assoc,carli Connolly M.D. ([place]) Hospitalists myocardial infarction I48.91 Unspecified atrial fibrillation J45.20 Mild intermittent asthma, uncomplicated G47.33 Obstructive sleep apnea (adult) (pediatric) Office Visit 09/30/2016 9:27a [facility] Capri I21.4 Non-St elevation Assoc,carli Connolly M.D. ([place]) Hospitalists myocardial infarction I48.91 Unspecified atrial fibrillation J45.20 Mild intermittent asthma, uncomplicated Office Visit 09/29/2016 1:06p [facility] Zack Pina I20.9 Angina pectoris, Jeane Francis unspecified I48.91 Unspecified atrial fibrillation Office Visit 09/29/2016 9:27a [facility] Capri I21.4 Non-St elevation Assoc,carli Connolly M.D. ([place]stem[place]) Hospitalists myocardial infarction I48.91 Unspecified atrial fibrillation J45.20 Mild intermittent asthma, uncomplicated Office Visit 09/28/2016 9:26a [facility] I21.4 Non-St elevation Assoc,carli Connolly M.D. ([place]) Hospitalists myocardial infarction I48.91 Unspecified atrial fibrillation J45.20 Mild intermittent asthma, uncomplicated G47.33 Obstructive sleep apnea (adult) (pediatric) Office Visit 09/27/2016 [facility] Daniela Lopez, R01.1 Cardiac murmur, 9:26a carli Murray M.D. unspecified Hospitalists I48.91 Unspecified atrial fibrillation J45.20 Mild intermittent asthma, uncomplicated Office Visit 09/27/2016 1:05p [facility] Zack Pina I21.4 Non-St elevation Jeane Francis ([place]stemi) myocardial infarction Office Visit 09/26/2016 9:26a [facility] Capri R07.1 Chest pain on Assoc,carli Connolly M.D. breathing Hospitalists I48.91 Unspecified atrial fibrillation J45.20 Mild intermittent asthma, uncomplicated Office Visit 09/25/2016 9:25a [facility] Ramona Ashley, R07.1 Chest pain on Assoc,carli DO breathing Hospitalists J45.20 Mild intermittent asthma, uncomplicated I48.91 Unspecified atrial fibrillation G47.33 Obstructive sleep apnea (adult) (pediatric) Office Visit 09/25/2016 8:35a [facility] Anastasiya TKandi R07.9 Chest pain, [facility] AT [facility] MD Annamaria, unspecified FACC, FSCAI Office Visit 09/25/2016 8:34a [facility] Amber Kaminski, Of Karina M.Reanna Office Visit 07/04/2016 2:45p [place]/Laurie Duggan R51 Headache Neurologic Serv Jeane Hurst Of [facility] Office Visit 06/11/2016 2:00p [place] [facility] Jaziel Duggan R51 Headache Services Of Karina Hurst M.D. G89.29 Other chronic pain Office Visit 06/10/2016 1:30p Pulmonology And Sharon R06.02 Shortness of Sleep Services Of MD Brittani breath [facility] J45.909 Unspecified asthma, uncomplicated G47.9 Sleep disorder, unspecified E66.01 Morbid (severe) obesity due to excess calories Office Visit 04/16/2016 [place] [facility] Avinash Romero, D47.1 Chronic 3:40p Center Of Karina Ching myeloproliferative AT [place] disease R53.83 Other fatigue G89.4 Chronic pain syndrome D63.1 Anemia in chronic kidney disease N18.9 Chronic kidney disease, unspecified Office Visit 04/02/2016 [place] oDnna Romero D47.1 Chronic 1:00p Center Of Karina Ching myeloproliferative AT [facility] G89.4 Chronic pain syndrome R53.83 Other fatigue D64.9 Anemia, unspecified Office Visit 02/06/2016 [facility] Avinash Romero D47.1 Chronic 3:00p Center Of Karina Ching myeloproliferative AT [facility] G89.4 Chronic pain syndrome Office Visit 04/06/2015 [place]/Laurie Duggan 333.94 Restless Leg 10:00a Neurologic Serv Of Jeane Hurst Syndrome Whip Operator 333.1 Tremor Essential & Other Forms V49.3 Sensory Problem Limbs Office Visit 04/01/2013 Jose Rafael/Laurie Duggan 333.1 Tremor 10:30a Neurologic Serv Of Jeane Hurst Essential & Whip Operator Other Forms 333.94 Restless Leg Syndrome Office Visit 03/18/2012 11:45a [place] Jaziel Duggan 354.2 Lesion Ulnar Neurologic Serv Of Karina Hurst M.D. Nerve 333.94 Restless Leg Syndrome 333.1 Tremor Essential & Other Forms Office Visit 02/18/2011 10:45a [facility] [place] 278.00 Obesity Unspec [facility] [place] 380.4 Impacted Cerumen 389.10 Hearing Loss Sensorineural Unspec 787.20 Dysphagia, Unspecified Office Visit 04/28/2009 [facility] 567.9 Peritonitis 12:30a carli Murray M.D. Unspecified Hospitalists 780.97 Altered Mental Status 278.00 Obesity Unspec 277.9 Metabolic Disorder Unspec Office Visit 04/27/2009 [facility] 567.9 Peritonitis 1:00a carli Murray M.D. Unspecified Hospitalists 780.97 Altered Mental Status 278.00 Obesity Unspec 244.9 Hypothyroidism Other Unspec Office Visit 04/26/2009 [facility] 567.9 Peritonitis 1:00a carli Murray M.D. Unspecified Hospitalists 780.97 Altered Mental Status 278.00 Obesity Unspec 244.9 Hypothyroidism Other Unspec Office 09/30/2007 Neurosurgery Aureliano Crespo 721.3 Spondylosis Lumbar W/O Visit 11:00a Services Of Karina Gayle M.D. Myelopathy AT [place] Office 06/03/2007 Neurosurgery Aureliano Crespo 721.3 Spondylosis Lumbar W/O Visit 4:00p Services Of [facility] Gayle M.D. Myelopathy AT [place] Office 03/04/2007 Neurosurgery Aureliano Crespo 721.3 Spondylosis Lumbar W/O Visit 3:30p Services Of [facility] Gayle M.D. Myelopathy AT [place] Office 11/26/2006 Neurosurgery Aureliano Crespo 721.3 Spondylosis Lumbar W/O Visit 3:30p Services Of [facility] Gayle M.D. Myelopathy AT [place] Office 08/27/2006 Neurosurgery Aureliano Crespo 724.02 Spinal Stenosis, Visit 3:00p Services Of [facility] Gayle M.D. Lumbar Region, W/O AT [place] Neurogenic Claudication Office 05/07/2005 [facility] Zack Torrez4.31 Electrocardiogram Visit 1:00p Jeane Francis (ECG) (EKG) Abnormal 401.1 Hypertension Benign Plan of Treatment Future Appointment(s):07/07/2018 2:40 pm - Arnold Holguin MD at [facility]08/10/2018 1:45 pm - Sharon Peter MD at Pulmonology [facility] Sleep [facility]05/06/2019 3:45 pm - Jaziel Hurst M.D. at [facility]06/26/2018 - You Delgado, FACCI25.119 Atherosclerotic heart disease of [place] coronary artery withReferral:Horacio Pimentel MD, Interventional CardiologyFollow up:3 vsnurtM32.89 Other specified cimxdkwU37.0 Paroxysmal atrial kwulddvpgffpK93.3 Chronic kidney disease, stage 3 (moderate)I11.0 Hypertensive heart disease with heart owuggieE62.2 Old myocardial rsegyokwbeY85.32 Chronic diastolic (congestive) heart lthhviiV88.9 Hypothyroidism, hphecfcttdaC36.1 Chronic myeloproliferative disease
[2018-07-19 06:11] LABS: ABS Basophils 0 10^3/ul (0-0.2); ABS Eosinophils 0.2 10^3/ul (0-0.6); ABS Lymphocytes 1.2 10^3/ul (1.0-4.8); ABS Monocytes 0.6 10^3/ul (0-0.8); ABS Neutrophils 4.4 10^3/ul (1.5-7.7); ABS Nucleated RBC 0 10^3/ul; Eosinophil % 3.2 %; Hematocrit 31 % (35-47); Hemoglobin 10.6 g/dl (12.0-16.0); Mean Corpuscular HGB Conc 35 g/dl (31-36); Mean Corpuscular Hemoglobin 33 pg (27-31); Mean Corpuscular Volume 96 fL (80-97); Mean Platelet Volume 6.8 fL (7.4-10.4); Nucleated Red Blood Cells % 0; Platelet Count 189 10^3/ul (150-450); Red Blood Count 3.21 10^6/ul (4.00-5.40); Red Cell Distribution Width 14 % (10.5-15); White Blood Count 6.5 10^3/ul (3.5-10.8)
[2018-07-19 06:17] LABS: INR 0.9 (0.77-1.02)
[2018-07-19 06:18] LABS: Activated Partial Thrombo Time 30.2 seconds (26.0-36.3)
--- NOTE | 2018-07-19 06:22 | ED ---
HPI Chest Pain - HPI Summary HPI Summary: Patient is 77-year-old female with a history of CAD, anemia, newly diagnosed atrial fibrillation, hypertension, chronic pain, CKD III, and NSTEMI with hx of 2 catheterizations. Most catheterization was on 07/13/18 at [facility]. Blockage found, however did not pursue treatment. She endorses acute onset pain at 1:30 this morning which she describes as pressure to the top of her head radiating down into the gums, bilateral arms and then into the chest. She states this pain is a 10/10 while present and improves with nitroglycerin. She has had 15 attacks over the past 2 weeks. Her reason for coming to the ED today is she had 3 separate attacks, at 1:30 AM, 2:30 AM and 3:30 AM all which were relieved after 4 mg nitroglycerin after approximately 15 minutes. She does endorse some shortness of breath while having the "attacks." She denies any recent illness, however endorses PNA approximate 2 months ago which she was admitted [facility] for an treated appropriately. She does take aspirin daily as well as Plavix 4 months after her first catheterization. She is a patient of Dr. Romero for anemia and Dr. Stanley. Lives at home with . She states next appt with Dr. Stanley is in 3 days on 07/22/18. - History of Current Complaint Chief Complaint: EDChestPainROMI Time Seen by Provider: 07/19/18 05:25 Hx Obtained From: Patient, Family/Money Order Clerk Onset/Duration: Started Hours Ago Timing: Intermittent, Lasting Minutes - 15-30, relieved with nitro x 3 Initial Severity: Moderate Current Severity: Moderate Pain Intensity: 0 Pain Scale Used: 0-10 Numeric Chest Pain Location: Mid Sternal Chest Pain Radiates: Yes Chest Pain Radiates To:: Arm, Jaw, Neck, Other - head Character: Dull/Aching, Heaviness, Tightness Aggravating Factor(s): Nothing Alleviating Factor(s): NTG 123 - 3, Oxygen Associated Signs and Symptoms: Positive: Chest Pain, Shortness of Breath - Risk Factors TAD Risk Factors: Hypertension, Family Hx, CHF AMI/ACS Risk Factors: Sedentary Lifestyle, Family History, Nitroglycerine Use, Hypertension, CHF, Dyslipidemia - Additional Pertinent History Primary Care Physician: FRANKO - Allergy/Home Medications Allergies/Adverse Reactions: Allergies Allergy/AdvReac Type Severity Reaction Status Date / Time atorvastatin [From Lipitor] Allergy See Comment Verified 07/19/18 05:53 imipramine Allergy Unknown Verified 07/19/18 05:53 Reaction Details Iodinated Contrast- Oral and Allergy Nausea Verified 07/19/18 05:53 IV Dye misoprostol [From Cytotec] Allergy Itching Verified 07/19/18 05:53 naproxen Allergy Itching Verified 07/19/18 05:53 nitrofurantoin Allergy Unknown Verified 07/19/18 05:53 Reaction Details theophylline [From Uniphyl] Allergy Unknown Verified 07/19/18 05:53 Reaction Details tiagabine [From Gabitril] Allergy Rash Verified 07/19/18 05:53 tizanidine Allergy Unknown Verified 07/19/18 05:53 Reaction Details fentanyl AdvReac Dizziness Verified 07/19/18 05:53 Buthufo-Kjj-Tht Reductase AdvReac Vomiting Verified 07/19/18 05:53 Inhibitor PMH/Surg Hx/FS Hx/Imm Hx Previously Healthy: No Endocrine/Hematology History: Reports: Hx Thyroid Disease - ON DAILY MEDS, Hx Anemia - ON DAILY IRON, 01/2018 WHILE HOSPITALIZED RECEIVE 7 UNITS BLOOD Denies: Hx Diabetes Cardiovascular History: Reports: Hx Angina, Hx Congestive Heart Failure, Hx Hypercholesterolemia, Hx Hypertension - on daily meds Denies: Hx Coronary Artery Disease, Hx Myocardial Infarction, Hx Pacemaker/ ICD, Hx Valvular Heart Disease Comment Only: 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, 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 Respiratory History: Reports: Hx Asthma - on daily & prn inhalers, Hx Pneumonia , Hx Sleep Apnea - SLIGHT, USES OXYGEN AT NIGHT AND PRN DURING DAY Denies: Hx Chronic Obstructive Pulmonary Disease (COPD) GI History: Reports: Hx Gastroesophageal Reflux Disease - ON DAILY MEDS, Hx Gastrointestinal Bleed, Hx Hiatal Hernia, Hx Ulcer - CURED WITH MEDS 2016 History: Reports: Hx Renal Disease - stage 3 CKD, Other Problems/ Disorders - Tx BY DR ALICIA ALCOCER IN [place] Denies: Hx Dialysis Musculoskeletal History: Reports: Hx Arthritis - STATES ALL OVER STATES NECK TO TOES, Hx Back Problems, Hx Fibromyalgia, Hx Orthopedic Injury, Other Musculoskeletal History - FIBROMYALGIA Sensory History: Reports: Hx Cataracts - BILATERAL, Hx Hearing Aid - R side only , WILL WEAR DAY OF SURGERY & HAVE CASE, Hx Hearing Problem Denies: Hx Contacts or Glasses Opthamlomology History: Reports: Hx Cataracts - BILATERAL Denies: Hx Contacts or Glasses Neurological History: Reports: Hx Headaches - with chest pain gets severe headaches Denies: Hx Dementia, Hx Seizures Psychiatric History: Reports: Other Psychiatric Issues/Disorders - claustrophobia Denies: Hx Panic Disorder - Surgical History Surgery Procedure, Year, and Place: 2008 FUSION LOW BACK. TSP -LSP [place] RODS/SCREWS 2004-- 2010 -TOTAL OF 5 SURGERIES LAST ONE 2011 Xs 2. 2006BILATERAL HIP REPLACEMENT. 06/2003 LEFT HEEL TARSAL TUNNEL -. 12/2004 WART -REMOVED FROM EYELID. 2002 CARPAL TUNNEL - [place]. 2002 Lt KNEE -2 & 2005 09/2002 & 01/2003 Rt KNEE - 3 TIMES - ARTHROSCOPIC. 2007 RIGHT BREAST LUMPECTOMY. 1999 CHOLECYSTECTOMY. TONSILECTOMY- as child. UMBILICAL HERNIA REPAIR. 2008 APPENDECTOMY. 06/2005 [place] BREAST REDUCTION. Lt THUMB - GANGLION CYST. T2007 LEFT TOTAL HIP. Rt ARM - "LUMP" REMOVED-. 2005 RT HIP TOTAL REPLACEMENT. 01/2018 CARDIAC STENT Hx Anesthesia Reactions: Yes - ALWAYS RECEIVES ANTI NAUSEA MEDS PRE-OP - Immunization History Date of Influenza Vaccine: 05/15/18 Hx Pertussis Vaccination: No Immunizations Up to Date: Yes Infectious Disease History: No Infectious Disease History: Denies: Hx Clostridium Difficile, Hx Hepatitis, Hx of Known/Suspected MRSA, Traveled Outside the [place] in Last 30 Days - Family History Known Family History: Positive: Cardiac Disease - Father used to use NTG. 3 brothers have had CABG. 4th had CVA and SC., Diabetes - Social History Occupation: Unemployed Lives: With Family Alcohol Use: Rare Alcohol Amount: reports only a couple of drinks 4 times per year Hx Substance Use: No Substance Use Type: Reports: None Hx Tobacco Use: No Smoking Status (MU): Never Smoked Tobacco Have You Smoked in the Last Year: No Review of Systems Negative: Fever, Chills, Fatigue, Skin Diaphoresis Negative: Epistaxis, Dental Pain, Sore Throat, Ear Ache, Nasal Discharge Positive: Chest Pain. Negative: Palpitations Positive: Shortness Of Breath. Negative: Cough Negative: Abdominal Pain, Vomiting, Diarrhea Negative: Arthralgia, Myalgia Negative: Rash, Bruising Negative: Headache, Weakness, Paresthesia, Numbness, Syncope All Other Systems Reviewed And Are Negative: Yes Physical Exam Triage Information Reviewed: Yes Vital Signs On Initial Exam: Initial Vitals Temp Pulse Resp BP Pulse Ox 98.2 F 92 22 220/127 100 07/19/18 05:27 07/19/18 05:27 07/19/18 05:27 07/19/18 05:27 07/19/18 05:27 Vital Signs Reviewed: Yes Appearance: Positive: Well-Appearing, Well-Nourished Skin: Positive: Warm, Skin Color Reflects Adequate Perfusion Head/Face: Positive: Normal Head/Face Inspection Eyes: Positive: EOMI, CECIL, Conjunctiva Clear Neck: Positive: Supple, No Lymphadenopathy Respiratory/Lung Sounds: Positive: Clear to Auscultation, Breath Sounds Present Cardiovascular: Positive: RRR, Pulses are Symmetrical in both Upper and Lower Extremities, Leg Edema Left, Leg Edema Right Musculoskeletal: Positive: Normal, Strength/ROM Intact Neurological: Positive: Speech Normal Psychiatric: Positive: Normal, Affect/Mood Appropriate AVPU Assessment: Alert Diagnostics - Vital Signs Vital Signs Temp Pulse Resp BP Pulse Ox 07/19/18 05:46 17 193/94 07/19/18 05:39 81 17 100 07/19/18 05:27 98.2 F 92 22 220/127 100 - Laboratory Lab Results: Lab Results 07/19/18 07/19/18 Range/Units 06:01 06:01 WBC 6.5 (3.5-10.8) 10^3/ul RBC 3.21 L (4.00-5.40) 10^6/ul Hgb 10.6 L (12.0-16.0) g/dl Hct 31 L (35-47) % MCV 96 (80-97) fL MCH 33 H (27-31) pg MCHC 35 (31-36) g/dl RDW 14 (10.5-15) % Plt Count 189 (150-450) 10^3/ul MPV 6.8 L (7.4-10.4) fL Neut % (Auto) 67.3 % Lymph % (Auto) 19.0 % [place] % (Auto) 9.8 % Eos % (Auto) 3.2 % Baso % (Auto) 0.7 % Absolute Neuts (auto) 4.4 (1.5-7.7) 10^3/ul Absolute Lymphs (auto) 1.2 (1.0-4.8) 10^3/ul Absolute Monos (auto) 0.6 (0-0.8) 10^3/ul Absolute Eos (auto) 0.2 (0-0.6) 10^3/ul Absolute Basos (auto) 0 (0-0.2) 10^3/ul Absolute Nucleated RBC 0 10^3/ul Nucleated RBC % 0 INR (Anticoag Therapy) 0.90 (0.77-1.02) APTT 30.2 (26.0-36.3) seconds Result Diagrams: 07/19/18 06:01 07/19/18 06:01 Lab Statement: Any lab studies that have been ordered have been reviewed, and results considered in the medical decision making process. Chest Pain Course/Dx - Course Course Of Treatment: Patient was evaluated for angina x 3 this morning at 130a, 230a and 330a. On arrival, EMS states she had been in A. fib without RVR. On arrival she is in normal sinus rhythm. EKG obtained immediately on arrival which shows normal sinus rhythm, NSTEMI. She is symptom-free on arrival. Denies any SOB. She endorses a slight headache rated a 2/10. On physical examination, patient appears well, nontoxic. Lungs CTA. RRR. BP elevated at 218/118. She is given Lopressor and amlodipine and subsequent BP is 126/90. Discussed case with Dr. Holley as well as Dr. Connolly. Will admit for further evaluation. Records were requested from [facility]. - Chest Pain Differential Diagnosis/HQI/PQRI: Acute SC, ACS, Angina, CHF, Chest Wall - Diagnoses Provider Diagnoses: Angina at rest - Provider Notifications Discussed Care Of Patient With: Capri Connolly - will admit for further evaluation Instructed by Provider To: MD Will See In ED Discharge - Sign-Out/Discharge Documenting (check all that apply): Patient Departure - Discharge Plan Condition: Good Disposition: ADMITTED TO [facility] Referrals: Manas Villeda MD [Primary Care Provider] - - Billing Disposition and Condition Condition: GOOD Disposition: Admitted to [facility]
[2018-07-19] MEDS ORDERED: amLODIPine TAB* 5 MG PO ONE (06:27)
[2018-07-19 06:28] LABS: Albumin 3.9 g/dL (3.2-5.2); Albumin/Globulin Ratio 1.5 (1-3); BUN/Creatinine Ratio 25.9 (8-20); Calcium 9.1 mg/dL (8.6-10.3); EGFR Non-African American 36.7 (>60); Globulin 2.6 g/dL (2-4); Magnesium 1.8 mg/dL (1.9-2.7); Potassium 5.2 mmol/L (3.5-5.0); Total Bilirubin 0.3 mg/dL (0.2-1.0); Total Protein 6.5 g/dL (6.4-8.9)
[2018-07-19] MEDS ORDERED: Metoprolol Tartrate IV* 1 MG/ML 5 ML VIAL IV ONE (06:28)
[2018-07-19] MEDS ORDERED: Metoprolol Tartrate TAB* 25 MG PO ONE (06:30)
[2018-07-19] MEDS ORDERED: HYDROcodone/ACETAMIN 5-325 MG* 1 TAB PO ONE (06:37)
[2018-07-19] MEDS ORDERED: Magnesium Sulfate 1 GM IV* 1 GM/100 ML BAG IV ONE (08:31)
[2018-07-19] MEDS ORDERED: Nitroglycerin TAB 0.4 MG* 0.4 MG TAB SL PRN (08:32)
[2018-07-19] MEDS ORDERED: Albuterol 2.5 MG/3 ML NEB.SOL* (0.083%) INH PRN (08:32)
[2018-07-19] MEDS ORDERED: Albuterol HFA INHALER* 8 gm MDI INH PRN (08:32)
[2018-07-19] MEDS ORDERED: Acetaminophen TAB* 325 MG PO PRN (08:32)
[2018-07-19] MEDS ORDERED: HYDROcodone/ACETAMIN 5-325 MG* 1 TAB PO PRN (08:36)
[2018-07-19] MEDS ORDERED: Senna/Docusate (NF) TAB PO SCH (09:00)
[2018-07-19] MEDS ORDERED: TRIAMCINOLONE BOTH NARES SCH (09:00)
[2018-07-19] MEDS ORDERED: Ferrous Sulfate TAB* 325 MG PO SCH (09:00)
[2018-07-19] MEDS ORDERED: Isosorbide Mononitrate ER TAB* 60 MG PO SCH (09:00)
[2018-07-19] MEDS ORDERED: Senna TAB PO SCH (10:30)
[2018-07-19] MEDS: amLODIPine TAB* 5 MG PO SCH (10:43)
[2018-07-19] MEDS: Lisinopril TAB* 10 MG PO SCH (10:43)
[2018-07-19] MEDS: Aspirin EC TAB* 81 MG TAB.EC PO SCH (10:44)
[2018-07-19] MEDS: Metoprolol Succinate XL TAB* 25 MG PO SCH ×2 (10:44→21:44)
[2018-07-19] MEDS: Cholecalciferol TAB* 1000 UNITS PO SCH (10:44)
[2018-07-19] MEDS: Cetirizine* 10 MG TAB PO SCH (10:44)
[2018-07-19] MEDS: Docusate CAP* 100 MG PO PRN (10:44)
[2018-07-19] MEDS: Montelukast Sodium TAB* 10 MG PO SCH (10:44)
[2018-07-19] MEDS: Clopidogrel TAB* 75 MG PO SCH (10:44)
[2018-07-19] MEDS: Multivitamins/Minerals TAB PO SCH (10:45)
[2018-07-19] MEDS: Pantoprazole TAB (NF) 40 MG TAB PO SCH (11:02)
[2018-07-19] MEDS: Ezetimibe TAB* 10 MG PO SCH (11:03)
[2018-07-19] MEDS: Torsemide TAB* 20 MG PO SCH (11:03)
[2018-07-19] MEDS: Levothyroxine TAB* 175 MCG TAB PO SCH (11:03)
[2018-07-19] MEDS: Amiodarone TAB* 200 MG PO SCH (11:04)
[2018-07-19] MEDS: HYDROcodone/ACETAMIN 5-325 MG* 1 TAB PO PRN ×3 (11:57→21:42)
--- NOTE | 2018-07-19 15:08 | HP ---
CC: Dr. Villeda; Dr. Delgado; Dr. Holley HISTORY AND PHYSICAL: DATE OF ADMISSION: 07/19/18 TIME OF EVALUATION: 8:20 a.m. PRIMARY CARE PROVIDER: Dr. Villeda. MANUFACTURING INSPECTOR: Dr. Delgado. CONSULTING MANUFACTURING INSPECTOR: Dr. Holley. CHIEF COMPLAINT: Angina. HISTORY OF PRESENT ILLNESS: Mrs. Martin is a 77-year-old lady with a complex past medical history that includes asthma; lymphedema; obstructive sleep apnea; restless legs syndrome; essential tremor; chronic pain/fibromyalgia; GERD; hypothyroidism; hypertension; morbid obesity with a BMI of 48; chronic anemia/ myeloproliferative disorder, followed by Dr. Romero, status post 2 bone marrow biopsies; heart failure with preserved ejection fraction; CKD, stage 3; symptomatic paroxysmal atrial fibrillation; angina due to ostial RCA lesion with [id number] collaterals; multiple statin tolerances; peptic ulcer disease secondary to NSAIDs, healed with discontinuation of NSAIDs and high- dose PPI; tremors; headaches; non-STEMI in January 2018, status post PCI, drug- eluting stent to culprit lesion in the left circumflex, who presents to the emergency room with complaints of chest pain. The patient has a very complex cardiac history with many years of angina relieved by nitro and extensive workup done by Cardiology. She was admitted with non-ST elevation MO in January 2018, had PCI and drug- eluting stent placed to her left circumflex and she had known RCA occlusion with left-to- right collaterals. One of her issues was anemia that would cause angina when her hemoglobin dropped and she required multiple transfusions in the past. She was seen by Dr. Romero as an outpatient, had 2 bone marrow biopsies that were not diagnostic, but she was told by Dr. Romero that when her hemoglobin drops below 11 that is usually when she starts to have symptoms. Per her description, she seems to have some issue with bone marrow production, but I do not have the records from Dr. Romero available yet. The patient states she was seen by Dr. Delgado and I have access to the note from 06/26/18. He had previously discussed option with the patient for another cardiac catheterization and she did not want to pursue at that time, but since now they are able to keep her hemoglobin high enough to prevent recurrent angina , she would like to be referred to Dr. Pimentel at [facility] for consideration of high- risk PCI. The patient states that she had a cath done through her right wrist on 07/13/18 and was told that she had "1 blood vessel that is blocked and they could try to open it up, but they will need 2 cardiologists and cardiothoracic surgeon to perform the procedure." The patient states that she has an appointment to see Dr. Delgado in the New Year to decide if she is going to pursue the procedure or not. Records from Dr. Pimentel's cardiac cath are not available right now. The patient states that since she had the procedure done, her angina continues. She keeps track of all the episodes and she states she has had 15 episodes since 07/13/18, all relieved by nitro. She states that 3 days ago, she had a severe one while she was having an upsetting stressful telephone conversation, but that was relieved by nitro. Earlier today around 1:20 in the morning, she woke up from sleep with this retrosternal chest pain radiating to her arms. She took nitroglycerin and the pain subsided, she was able to sleep again, but she woke up again at 2:30 and 3:30 with the same symptoms and she felt that this was unusual as she usually does not have recurrence of angina so soon after an episode, reason why she decided to come to the emergency room for further evaluation. She describes her angina in a very specific manner, starting on her head, going down to her neck and arms and she describes the pain as a numb pain going to her chest, 7/10 intensity. There was no nausea, vomiting, and shortness of breath associated with it. PAST MEDICAL HISTORY: 1. Asthma. 2. Lymphedema. 3. Obstructive sleep apnea, not on CPAP. 4. Restless legs syndrome. 5. Tremor. 6. Chronic pain/fibromyalgia. 7. GERD. 8. Esophageal spasm. 9. Hypothyroidism. 10. Hypertension. 11. History of gastric ulcer secondary to NSAIDs with upper GI bleed in the past. 12. Coronary artery disease, status post stent to the circumflex in January 2018 and known occluded RCA with plans for high-risk PCI in the near future depending on Dr. Delgado's evaluation. 13. Chronic anemia/myeloproliferative disease, followed by Dr. Romero. 14. Heart failure with preserved ejection fraction. 15. CKD, stage 3. 16. Symptomatic paroxysmal atrial fibrillation. 17. Chronic angina. PAST SURGICAL HISTORY: 1. Status post cataract surgery. 2. Status post bilateral hip replacement. 3. Status post 5 back surgeries including 2 fusions followed by 2 fusions revision. 4. Status post breast reduction. 5. Status post tarsal tunnel on the left heel. 6. Status post right-sided knee arthroscopy x3 and left-sided x1. 7. Status post cholecystectomy. 8. Status post appendectomy. 9. Status post umbilical hernia repair. MEDICATION LIST: 1. Acetaminophen 650 mg p.o. t.i.d. p.r.n. pain or fever. 2. Albuterol 2.5 mg nebulized q.i.d. p.r.n. shortness of breath. 3. Albuterol HFA 2 puffs inhaled q.6 hours p.r.n. shortness of breath. 4. Amiodarone 100 mg p.o. daily. 5. Amitriptyline 10 mg p.o. at bedtime. 6. Amlodipine 10 mg p.o. daily. 7. Aspirin 81 mg p.o. daily. 8. Caltrate 600 plus D 1 tablet p.o. b.i.d. 9. Calcium/magnesium caplet 1 tablet p.o. daily. 10. Cholecalciferol 2000 units p.o. daily. 11. Clopidogrel 75 mg p.o. daily. 12. Colace 100 mg p.o. b.i.d. as needed for constipation. 13. Zetia 10 mg p.o. daily. 14. Ferrous sulfate 325 mg p.o. daily. 15. Flovent HFA 110 mcg 1 puff inhaled b.i.d. 16. Fluticasone nasal spray 50 mcg 2 sprays to both nares at bedtime. 17. Hydrocodone/acetaminophen 10/325 one to two tablets p.o. q.6 hours p.r.n. pain. 18. Imdur 120 mg p.o. daily. 19. Levocetirizine 5 mg p.o. daily. 20. Levothyroxine 175 mcg p.o. daily. 21. Lisinopril 20 mg p.o. daily. 22. Melatonin 10 mg p.o. at bedtime. 23. Metoprolol succinate 25 mg p.o. b.i.d. 24. Montelukast 10 mg p.o. daily. 25. Multivitamin with folic acid 400 mcg p.o. daily. 26. Nitroglycerin 0.4 mg sublingual q.5 minutes p.r.n. chest pain. 27. Omeprazole 40 mg p.o. daily. 28. Mirapex 2 mg p.o. at bedtime. 29. Primidone 150 mg p.o. at bedtime. 30. Ranitidine 150 mg p.o. at bedtime. 31. Senna-S 1 tablet p.o. b.i.d. 32. Shark cartilage 1000 mg p.o. t.i.d. 33. Torsemide 10 mg p.o. daily. 34. Triamcinolone nasal spray 2 sprays to both nares b.i.d. 35. Venlafaxine XR 37.5 mg p.o. at bedtime. 36. Vitamin B 1 capsule p.o. q.a.m. ALLERGIES: The patient has intolerance to multiple statins including ATORVASTATIN. She also had reactions to IMIPRAMINE, IODINATED CONTRAST, MISOPROSTOL, NAPROXEN, NITROFURANTOIN, THEOPHYLLINE, TIAGABINE, TIZANIDINE, FENTANYL. She also had dyspnea with BRILINTA. FAMILY HISTORY: Both parents had coronary artery disease. SOCIAL HISTORY: No history of tobacco, alcohol, or drug use. Surrogate decision maker is her , Herminio Martin, phone number is [phone]. REVIEW OF SYSTEMS: A 14-point review of systems was performed and all the pertinent negative and positive findings are in the HPI. PHYSICAL EXAMINATION GENERAL: The patient is a pleasant, morbidly obese, elderly lady, lying in the ED stretcher, in no acute distress. VITAL SIGNS: Temperature 98.2, heart rate is 69, respiratory rate is 18, oxygen saturation 98% on room air, blood pressure is 163/58. HEENT: Pupils are equal. Moist mucous membranes. CHEST: Breath sounds present bilaterally with no added sounds. CARDIOVASCULAR: Normal S1, S2. Regular rate and rhythm. ABDOMEN: Morbid obese, soft. Bowel sounds are present. EXTREMITIES: Chronic lymphedema. NEUROLOGIC: She is alert and oriented x3. Able to move all 4 extremities. DIAGNOSTIC STUDIES/LAB DATA: The patient had a CBC that showed a WBC of 6.5, hemoglobin of 10.6, hematocrit of 31, platelets of 189 with 67% neutrophils. INR is 0.9, APTT is 30.2. Chemistry showed a sodium of 136, potassium of 5.2, chloride of 106, bicarb of 26, BUN of 36, creatinine of 1.39, glucose of 127, lactic acid of 1, calcium of 9.1, magnesium of 1.8. LFTs were normal. First troponin was negative. Chest x-ray not yet officially read, shows no acute pulmonary disease to my read. It actually appears improved when compared to her prior x-ray from April 2018, but this may due to difference in technique. EKG done 07/19/18 at 6:07 a.m. shows sinus rhythm at 85 beats per minute with no significant ST-T changes. No significant change when compared to her prior EKG from April 2018. ASSESSMENT AND PLAN: Ms. Martin is a 77-year-old lady with a complex past medical history that includes asthma, obstructive sleep apnea, atrial fibrillation, chronic anemia/myelodysplastic disease, coronary artery disease, heart failure with preserved ejection fraction, gastric ulcer with prior upper gastrointestinal bleed, gastroesophageal reflux disease, hypertension, hyperlipidemia, chronic pain/fibromyalgia, who presents to the emergency room with complaints of 3 episodes of angina responding to nitroglycerin. 1. Chest pain. The patient's clinical picture is very complex. Her chest pain seems to be escalating in the sense that she had 3 episodes of angina overnight and they were all responsive to nitroglycerin. She has a known occluded RCA and the plan was for her to be evaluated by Dr. Delgado next week to decide if she would pursue high-risk PCI as per discussion with Dr. Pimentel. [facility] from [facility] were requested to further clarify findings and recommendations. At this point, she is already on maximum medical therapy on aspirin, Plavix, high- dose long-acting nitrate, and beta-tray. She cannot tolerate statins. She is on Zetia and as per Dr. Delgado's note, could not afford a PCSK9 inhibitor and he was considering a trial of Livalo in the future. Her EKG shows no ischemic changes at this time and troponin has been negative. She is also on amlodipine as an antianginal and as per Dr. Delgado's note, Ranexa did not improve her symptoms. A Cardiology consultation was requested with Dr. Holley by the emergency room to see in terms of medication management what else could be done. There is also report that the patient was in atrial fibrillation with a heart rate of 98 while en route to the hospital, but she is now in sinus rhythm, and I wonder if the atrial fibrillation is playing a role on her anginal symptoms. She has a history of sleep apnea, noncompliant with CPAP and this could explain why she had episodes overnight. May be the hypoxia is throwing her into atrial fibrillation and this is causing the anginal symptoms. She is already on amiodarone and at this point, she is in normal sinus rhythm, so we will wait for further Cardiology recommendations. The patient is already on dual-antiplatelet therapy with aspirin and Plavix and she had significant anemia in the past. Her CHADS2-VASc score is 6 and I believe she is not on anticoagulation due to her prior history of significant anemia. Now that she is following with Hematology and her H and H has been more stable, further consideration for anticoagulation could be given, but I will defer that to Cardiology. 2. Asthma. Stable at this time. We will continue bronchodilators and inhaled steroids. 3. Atrial fibrillation. Continue amiodarone. 4. Hypomagnesemia. We will replete. 5. Hyperkalemia. Her potassium is slightly elevated at 5.2. At this point, I am going to continue her JERRY inhibitor, but we will repeat her potassium in the morning. 6. Restless legs syndrome. Continue Mirapex. 7. Tremor. Continue primidone. 8. Fibromyalgia. Continue hydrocodone. 9. Hypothyroidism. Continue levothyroxine. 10. DVT prophylaxis. The patient has a score of 4 on the DVT Prophylaxis Risk Assessment Guide and she is going to have SCDs. We will avoid pharmacological prophylaxis right now in the setting of dual-antiplatelet therapy and known history of gastrointestinal bleed. 11. Code status is full. TIME SPENT: Approximately 65 minutes was spent with the patient's interview, medical records review, physical examination to complete this admission, more than half of this time was spent [id number] with the patient and coordination of care. [id number]/[facility] #: [id number] PAMELA
--- NOTE | 2018-07-19 18:32 | CONS ---
CC: Dr. Manas Villead; Dr. You Delgado CARDIOLOGY CONSULTATION: DATE OF CONSULT: 07/19/18 REFERRING PHYSICIAN: Dr. Capri Diaz. REASON FOR CARDIOLOGY CONSULTATION: Chest pain in a patient with known CAD. HISTORY OF PRESENT ILLNESS: The patient is a 77-year-old woman with a history of atrial fibrillation, status post previous cardioversion, not on anticoagulation due to GI bleed; history of CAD with left circumflex drug- eluting stent intervention 01/21/18 for NQWMI; chronic kidney disease; chronically occluded RCA; hypertension. She follows with my partner Dr. Delgado of [facility], for whom I am covering. She actually because of persistent angina had an elective cardiac catheterization completed at [facility] on 07/13/18, which showed normal left main, mid tandem 40% lesions in the LAD, less than 30% stenosis in the patent proximal left circumflex stent, first marginal of the circumflex vessel with mild less than 30% stenosis, second marginal 40% to 50% stenosis, unchanged from angiogram 3 months ago and RCA known totally occluded, noninjected, filled via from [id number] collaterals. The patient has chronic chest pain and there appears to be a cardiac component, although she does note significant heartburn as well. In any case, since being discharged from [facility] following her cardiac catheterization, at which point she was told she would benefit from medical therapy, she has had several episodes of nitrate responsive chest pain. She was admitted to [facility] after presenting to the emergency room with several episodes of chest pain. Currently, she has no chest pain. PAST MEDICAL HISTORY: As above. She also has a history of GERD; asthma, on 2 L O2 q.h.s.; hypothyroidism; gout; paroxysmal atrial fibrillation and she is not a candidate for oral anticoagulation due to GI bleeding; fibromyalgia; chronic kidney disease. Of note, the patient did have a non-Q wave CT at the time of her left circumflex drug-eluting stent 01/23/18. She is apparently being considered for a high-risk intervention to the chronically totally occluded RCA. OUTPATIENT MEDICATIONS: 1. Nitroglycerin sublingual p.r.n. 2. Elavil 10 mg p.o. q.h.s. 3. Flonase 1 spray both nares at bedtime. 4. Lisinopril 20 mg once a day. 5. Plavix 75 mg once a day. 6. Pramipexole 2 mg once a day. 7. Imdur 120 mg once a day. 8. Norvasc 10 mg once a day. 9. Toprol-XL 25 mg p.o. b.i.d. 10. Melatonin 10 mg once a day. 11. Zetia 10 mg once a day. 12. Aspirin 81 mg once a day. 13. Torsemide 10 mg once a day. 14. Levocetirizine 5 mg once a day. 15. Effexor 37.5 mg once a day. 16. Amiodarone 100 mg once a day. 17. Ranitidine 150 mg p.o. q.p.m. 18. Levothyroxine 175 mcg once a day. ALLERGIES: Listed as ATORVASTATIN, IMIPRAMINE, MISOPROSTOL, NAPROSYN, NITROFURANTOIN, THEOPHYLLINE, TIZANIDINE, FENTANYL, TIAGABINE, IODINATED CONTRAST, ORAL/IV DYE, STATINS. FAMILY HISTORY: Significant for cardiac disease, strokes, diabetes, and cancer. SOCIAL HISTORY: The patient is for 31 years, and of note she is accompanied by her throughout this cardiology interview today and examination. She does not smoke cigarettes or abuse alcohol. No use of illicit drugs. 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 She is not able to exercise due to significant back pain. REVIEW OF SYSTEMS: She denies personal history of stroke or cancer. She has had some blood in her stools noted, felt due to hemorrhoids. She denies vomiting up blood or coughing up blood. She denies renal calculi or cholelithiasis. She has asthma. She denies emphysema. She has had pneumonia, hospitalized in January of 2018. She denies tuberculosis, sleep apnea. She does have home oxygen use. She denies diabetes. She has hypertension. She has had prior CT with left circumflex drug-eluting stent 01/23/18. She has had prior atrial fibrillation, suppressed with amiodarone. She denies heart murmurs. She denies bypass surgery. She denies psychiatric illnesses, lupus, psoriasis, seizures, Parkinson's disease, myasthenia gravis. She has a history of hypothyroidism. She denies liver disorders. She has acute renal insufficiency. She denies claudication symptoms. She has a history of peripheral edema. All other review of systems are negative x14 except as per this EHR. PHYSICAL EXAM: Height 5 feet 1 inch, weight 254 pounds, temperature 98.8 degrees Fahrenheit, blood pressure ranges from 148/56 to 171/93, pulse 70, O2 saturation 98%. On general exam, she is a talkative lady, in no acute distress. She does appear pale. HEENT shows the cranium is normocephalic and atraumatic. She has dry mucosal membranes. Neck veins are not distended. There are no carotid bruits. Visible skin warm and perfused. Affect appropriate. She appears oriented. Noticed mild kyphoscoliosis on back exam. Lungs are clear to auscultation. No wheezes, no rales. Cardiac Exam: S1, S2. Regular rate. No significant murmurs, rubs, nor gallop. PMI is nondisplaced. Abdomen: Soft and nondistended, appears benign. Extremities with 1+ peripheral edema. Pulses seem grossly intact. DIAGNOSTIC STUDIES/LAB DATA: Transthoracic echocardiogram completed January 2018 showed normal left ventricular ejection fraction of 50% to 55%, questionable small inferior wall motion abnormality, [id number] right atrial dilatation , mild tricuspid regurgitation, [id number] left atrial dilatation, moderate pulmonary hypertension, mild right atrial dilatation similar to study of 10/14/16. EKG reviewed 07/19/18 at 0607, which shows sinus rhythm, old inferior CT with first- degree AV block, and borderline inferior T-wave changes. When compared to prior EKG completed 05/20/18, there is no significant change. Labs: White blood cell count 6.5, hematocrit 31, platelet count 189. INR 0.90. Sodium 136; potassium 5.2; chloride 106; bicarbonate 26; BUN 36; creatinine 1.39, had been 1.45 on 07/15/18. Troponin 0.01, followed by 0.02, followed by 0.01. Magnesium 1.8. IMPRESSION: Ms. Martin is a 77-year-old woman with chest pain of unclear etiology. While there is some nitrate responsiveness, I wonder her chest pain may be related at least in part be related to her heartburn causing esophageal spasm. In any case, she had a cardiac catheterization 6 days ago, which showed patent left circumflex drug-eluting stent with no new obstructive coronary artery lesions other than her known chronically totally occluded RCA, which would be a high-risk lesion to intervene upon and this is felt best treated medically, at least at this time. We will try to maximize her medical therapy, and there seems to be a significant anxiety component as well.It is reassuring that her EKG is stable and her troponins are negative. RECOMMENDATIONS: 1. She will continue aspirin, Plavix given drug-eluting stent in January of 2018, lisinopril, Norvasc, Toprol-XL, Zetia, amiodarone for suppression of prior AF, and she again is not on an oral anticoagulant given prior gastrointestinal bleeding. We are going to increase her Imdur to 240 mg once a day. No evidence of acute coronary syndrome at this time. 2. Other management including regarding gastroesophageal reflux disease and mild hyperkalemia as per the hospitalist medicine service and I have discussed the case with Dr. Diaz. The patient is already scheduled for a followup with her usual scientific research associate, Dr. Delgado, next week which I have encouraged her to keep. Per the patient, she is planning to discuss possible high risk intervention to her chronically TO RCA with Dr. Delgado at the recommendation of her [facility] interventionalist. The above was discussed in detail with the patient and her and they seem to be in agreement with these recommendations. The case has been also discussed with Dr. Diaz. Dear Dr. Diaz, many thanks for this kind cardiovascular consultation opportunity. Please do not hesitate to contact me if you have any questions or concerns regarding the patient's cardiovascular consultative care. [id number]/[facility] #: [id number] PAMELA
[2018-07-19] MEDS ORDERED: NON FORMULARY MED* (Melatonin [Melatonin] 10 MG) PO SCH (21:00)
[2018-07-19] MEDS ORDERED: Colchicine* 0.6 MG TAB PO SCH (21:00)
[2018-07-19] MEDS ORDERED: Fluticasone NASAL SPRAY 50MCG* 16 gm SPRAY BTL BOTH NARES SCH (21:00)
[2018-07-19] MEDS ORDERED: Venlafaxine EXT RELEASE CAP* 37.5 MG PO SCH (21:00)
[2018-07-19] MEDS ORDERED: Mometasone 220 MCG MDI INH SCH (21:00)
[2018-07-19] MEDS ORDERED: Primidone TAB(*) 50 MG PO SCH (21:00)
[2018-07-19] MEDS ORDERED: Melatonin 3 MG TAB PO SCH (21:00)
[2018-07-19] MEDS ORDERED: Amitriptyline TAB* 10 MG PO SCH (21:00)
[2018-07-19] MEDS ORDERED: Famotidine TAB* 20 MG PO SCH (21:00)
[2018-07-19] MEDS ORDERED: Pramipexole TAB* 0.5 MG PO SCH (21:00)
[2018-07-19] MEDS: Senna TAB PO SCH (21:43)
[2018-07-20] MEDS: Levothyroxine TAB* 175 MCG TAB PO SCH (05:46)
[2018-07-20] MEDS: HYDROcodone/ACETAMIN 5-325 MG* 1 TAB PO PRN ×2 (05:47→10:06)
[2018-07-20 06:46] LABS: ABS Basophils 0 10^3/ul (0-0.2); ABS Eosinophils 0.2 10^3/ul (0-0.6); ABS Lymphocytes 1.8 10^3/ul (1.0-4.8); ABS Monocytes 0.5 10^3/ul (0-0.8); ABS Neutrophils 2.4 10^3/ul (1.5-7.7); ABS Nucleated RBC 0 10^3/ul; Eosinophil % 4.6 %; Hematocrit 28 % (35-47); Hemoglobin 9.7 g/dl (12.0-16.0); Lymphocyte % 35.4 %; Mean Corpuscular HGB Conc 34 g/dl (31-36); Mean Corpuscular Hemoglobin 33 pg (27-31); Mean Corpuscular Volume 96 fL (80-97); Mean Platelet Volume 7.2 fL (7.4-10.4); Nucleated Red Blood Cells % 0.1; Platelet Count 164 10^3/ul (150-450); Red Blood Count 2.96 10^6/ul (4.00-5.40); Red Cell Distribution Width 14 % (10.5-15)
[2018-07-20 07:07] LABS: BUN/Creatinine Ratio 25.9 (8-20); Calcium 8.9 mg/dL (8.6-10.3); EGFR Non-African American 34.4 (>60)
[2018-07-20 07:14] LABS: Potassium 5.2 mmol/L (3.5-5.0)
[2018-07-20 08:15] VITALS: BP 151/64
[2018-07-20] MEDS: Montelukast Sodium TAB* 10 MG PO SCH (08:37)
[2018-07-20] MEDS: Cetirizine* 10 MG TAB PO SCH (08:37)
[2018-07-20] MEDS: Torsemide TAB* 20 MG PO SCH (08:37)
[2018-07-20] MEDS: Pantoprazole TAB (NF) 40 MG TAB PO SCH (08:38)
[2018-07-20] MEDS: Ezetimibe TAB* 10 MG PO SCH (08:38)
[2018-07-20] MEDS: Cholecalciferol TAB* 1000 UNITS PO SCH (08:39)
[2018-07-20] MEDS: amLODIPine TAB* 5 MG PO SCH (08:39)
[2018-07-20] MEDS: Amiodarone TAB* 200 MG PO SCH (08:40)
[2018-07-20] MEDS: Multivitamins/Minerals TAB PO SCH (08:40)
[2018-07-20] MEDS: Clopidogrel TAB* 75 MG PO SCH (08:40)
[2018-07-20] MEDS: Metoprolol Succinate XL TAB* 25 MG PO SCH (08:40)
[2018-07-20] MEDS: Lisinopril TAB* 10 MG PO SCH (08:40)
[2018-07-20] MEDS: Aspirin EC TAB* 81 MG TAB.EC PO SCH (08:41)
[2018-07-20] MEDS: Senna TAB PO SCH (08:41)
[2018-07-20] MEDS: Docusate CAP* 100 MG PO PRN (08:41)
[2018-07-20] MEDS ORDERED: Darbepoetin Alfa* 100 MCG/0.5 ML SYRINGE SUBCUT ONE (09:00)
[2018-07-20] MEDS ORDERED: Isosorbide Mononitrate ER TAB* 60 MG PO SCH (09:00)
--- NOTE | 2018-07-21 04:00 | DS ---
CC: Dr. Villeda; Dr. Delgado; Dr. Romero DISCHARGE SUMMARY: DATE OF ADMISSION: 07/19/18 DATE OF DISCHARGE: 07/20/18 PRIMARY CARE PROVIDER: Dr. Villeda. PLANT PROTECTION OFFICER: Dr. Delgado. RETAIL MAINTENANCE TECHNICIAN: Dr. Romero. DISCHARGE DIAGNOSES: 1. Stable angina. 2. Mild hyperkalemia. SECONDARY DIAGNOSES: 1. Asthma. 2. Lymphedema. 3. Obstructive sleep apnea, not on CPAP. 4. Restless leg syndrome. 5. Essential tremor. 6. Chronic pain/fibromyalgia. 7. Gastroesophageal reflux disease. 8. Esophageal spasm. 9. Hypothyroidism. 10. Hypertension. 11. History of gastric ulcer secondary to nonsteroidal antiinflammatory drugs with history of upper gastrointestinal bleed in the past. 12. Coronary artery disease, status post stent to the circumflex in January 2018 and known occluded rig ht coronary artery. 13. Chronic anemia/myeloproliferative disease, followed by Dr. Romero. 14. Heart failure with preserved ejection fraction. 15. Chronic kidney disease, stage III. 16. Paroxysmal atrial fibrillation. 17. Chronic angina. MEDICATION LIST: 1. Acetaminophen 650 mg p.o. t.i.d. p.r.n. pain or fever. 2. Albuterol nebulized q.i.d. p.r.n. shortness of breath. 3. Albuterol HFA 2 puffs inhaled q.6 hours p.r.n. shortness of breath. 4. Amiodarone 100 mg p.o. daily. 5. Amitriptyline 10 mg p.o. at bedtime. 6. Amlodipine 10 mg p.o. daily. 7. Aspirin 81 mg p.o. daily. 8. Caltrate 600 plus D 1 tablet p.o. b.i.d. 9. Calcium/magnesium 1 tablet p.o. daily. 10. Cholecalciferol 2000 units p.o. daily. 11. Clopidogrel 75 mg p.o. daily. 12. Colace 100 mg p.o. b.i.d. as needed for constipation. 13. Ezetimibe 10 mg p.o. daily. 14. Fluticasone HFA 110 mcg 1 puff inhaled b.i.d. 15. Fluticasone nasal spray 50 mcg 2 sprays to both nares at bedtime. 16. Hydrocodone/acetaminophen 10/325, 2 tablets p.o. q.4 hours p.r.n. pain. 17. Levocetirizine 5 mg p.o. daily. 18. Levothyroxine 175 mcg p.o. daily. 19. Lisinopril 20 mg p.o. daily. 20. Melatonin 10 mg p.o. at bedtime. 21. Metoprolol succinate 25 mg p.o. b.i.d. 22. Montelukast 10 mg p.o. daily. 23. Multivitamin with folic acid 1 tablet p.o. daily. 24. Nitroglycerin 0.4 mg sublingual q.5 minutes p.r.n. chest pain. 25. Omeprazole 40 mg p.o. daily. 26. Pramipexole 2 mg p.o. daily. 27. Primidone 150 mg p.o. at bedtime. 28. Ranitidine 150 mg p.o. at bedtime. 29. Senna-S 2 tablets p.o. b.i.d. 30. Shark cartilage 1000 mg p.o. t.i.d. 31. Torsemide 10 mg p.o. daily. 32. Triamcinolone nasal sp ray 2 sprays to both nares b.i.d. 33. Venlafaxine ER 37.5 mg p.o. at bedtime. 34. Vitamin B 1 capsu le p.o. daily. Medication Change: Imdur was increased from 120 to 240 mg p.o. daily. HOSPITAL COURSE: Mrs. Martin is a 77-year-old lady with complex past medical history as stated abov e that presented to the emergency room with complaints of 3 episodes of chest pain the night prior to admission, all resolved with nitroglycerin. For more details about her presentation, I refer you to her history and physical. The patient has a known occluded RCA and had cardiac cath done with Dr. Pimentel on [facility] on 07/13/18. The plan is for her to see Dr. Delgado on 07/23/18 to discuss risks and benefits of high r isk PCI. On this admission, the patient had no further episodes of chest pain. No EKG changes. Ser ial troponins were negative. She was seen in consultation by Cardiology (Dr. Holley), and his impress ion was that her chest pain was of unclear etiology. While there is some nitrate responsiveness, he wondered if her chest pain could be related at least to esophageal spasms. In any case, she had a ca rdiac cath 6 days ago, which showed patent left circumflex drug-eluting stent with no new obstructive coronary artery lesions other than her known chronically thoroughly occluded RCA, which would be a h igh risk lesion to intervene upon and this is felt best treated medically at least at this time. His recommendation was to continue aspirin, Plavix, lisinopril, Norvasc, Toprol, Zetia, amiodarone for s uppression of prior atrial fibrillation and once again, she is not on oral anticoagulant giving her p rior GI bleeding. He recommended increasing her Imdur to 240 mg once a day. The plan is for the pat ient to be discharged home today to follow up with Dr. Delgado on 07/23/18 to discuss risks and benefi ts of high risk PCI. The patient had an overnight oximetry as there was concern that may be her untreated sleep apnea woul d be contributing to her recurrent anginal episodes overnight, but her overnight oximetry on room air was actually normal with saturation less than 88% only for 28 seconds and 99% of the time her oxygen saturation was greater than 90%. The patient had no further episodes of chest pain in the hospital and no significant arrhythmias on t elemetry. She did have some worsening of her anemia with hemoglobin of 9.7 on the day of discharge. I obtained records from Dr. Romero and his impression is that the patient has longstanding history of fatigue and macrocytic anemia and he felt that her anemia was a combination of myelodysplasia, chronic kidney di sease, but however, the patient has consistent refractory angina with hemoglobin less than 11. Dr. Sandee cruz had discussed the case with Dr. Delgado and they discussed that occluded RCA and partial compensat ion with collateral circulation and Dr. Romero was in agreement with referral to or transfer for high r isk interventional cardiology or single- vessel CABG, which is high risk alternative. His plan was t o avoid future transfusions and to start Aranesp 100 mcg for hemoglobin less than 10. This was discu ssed with the lamp wirer on-call, Dr. Page, and the patient received 100 mcg of Aranesp prior t o discharge and she will follow up with Dr. Romero to continue her injections every 2 weeks. She will also continue to have weekly CBC as she was having in the past. Also of note due to the fact the patient has mild hyperkalemia with potassium of 5.2, this appears to be on and off chronic issue since early 2016, likely associated with her JERRY inhibitor use but this medication is necessary for her treatment at this time. She will have BMP checked on 07/23/18 and results will be sent to Dr. Delgado and Dr. Villeda, so they can follow her mild hyperkalemia. The patient is asymptomatic and stable for discharge at this time. PHYSICAL EXAMINATION: Vital Signs: Temperature 97.5, heart rate is 69, respiratory rate 16, oxygen saturation 99% on room air, blood pressure is 151/64. General: The patient is a pleasant, obese, eld erly lady, sitting up in bed, in no acute distress. Neuro: She is alert and oriented x3, able to mo ve all 4 extremities. DIET: Heart-healthy diet. The patient is advised to avoid caffeine. ACTIVITIES: As tolerated. DISPOSITION: To home. STATUS WHILE IN THE HOSPITAL: Observation. Please keep in mind this is a summarized version of this patient's hospital stay. If you need more in formation, please feel free to call me at [phone] or please obtain the full medical records. TIME SPENT: Approximately 45 minutes was spent to complete this discharge. [id number]/[facility] #: [id number]
== END 2018-07-20 13:30 | disposition home or self-care (01) ==
LOC: ED 05:21 → MEDTELE 08:25
PROVIDERS: ADMIT Internal Medicine; ATTEND Internal Medicine
DX: I20.8 Other forms of angina pectoris (principal); I25.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 native coronary artery without angina pectoris; E78.5 Hyperlipidemia, unspecified; J45.909 Unspecified asthma, uncomplicated; I89.0 Lymphedema, not elsewhere classified; G47.33 Obstructive sleep apnea (adult) (pediatric); G25.81 Restless legs syndrome; G25.0 Essential tremor; G89.29 Other chronic pain; M79.7 Fibromyalgia; K21.9 Gastro-esophageal reflux disease without esophagitis; K22.4 Dyskinesia of esophagus; E03.9 Hypothyroidism, unspecified; I10 Essential (primary) hypertension; Z95.5 Presence of coronary angioplasty implant and graft; D47.1 Chronic myeloproliferative disease; I50.30 Unspecified diastolic (congestive) heart failure; N18.3 Chronic kidney disease, stage 3 (moderate); I48.0 Paroxysmal atrial fibrillation; Z79.82 Long term (current) use of aspirin
CPT/HCPCS: 36415; 71046; 80048; 80053; 82550; 82553; 83605; 83735; 84484; 85025; 85610; 85730; 93005; 94762; 96365; 96375; 99284; A9270-GY; G0378; J0881; J3475

== ENCOUNTER 2018-11-20 17:18 | Emergency (ER) | payer MEDICARE ==
--- OUTSIDE RECORDS SUMMARY | 2018-11-20 17:35 | XMS REPORT | Continuity of Care Document ---
:1940 External Reference #:[id number] Author Name Josselyn Pelaez Care Team Providers Name Role Phone Manas Villeda MD Primary Care Physician Unavailable Payers Date Identification Numbers Payment Provider Subscriber Effective: 2018 Policy Number: [id number] Medicare Jocelyne A Veronica PayID: [id number] [address] [facility] [place] [address] Effective: 2007 Policy Number: [id number] Medicare Jocelyne A Veronica Expires: 2018 PayID: [id number] [address] [place] [address] Policy Number: [id number] [facility] Jocelyne A Veronica PayID: [id number] [address] [place] [address] Effective: 2000 Policy Number: Jean Gil Ensenda Jocelyne A Veronica [id number] Group Name: [employer] [address] [address] [place] [address] Advance Directives Description No Information Available Problems Active Problems Provider Date Restless legs Jaziel Hurst M.D. Onset: 04/06/2015 Dyspnea Sharon Peter MD Onset: 06/10/2016 Asthma without status asthmaticus Sharon Peter MD Onset: 06/10/2016 Disturbance in sleep behavior Sharon Peter MD Onset: 06/10/2016 Morbid obesity Sharon Peter MD Onset: 06/10/2016 Encounter for planned postprocedural Bennie Herron M.D., [facility] Onset: wound closure Angina pectoris Bryson Steiner M.D. Onset: 01/21/2018 Atrial fibrillation Bryson Steiner M.D. Onset: 01/21/2018 Obstructive sleep apnea syndrome Bryson Steiner M.D. Onset: 01/21/2018 Chronic kidney disease Bryson Steiner M.D. Onset: 01/21/2018 Chronic respiratory failure Bryson Steiner M.D. Onset: 01/21/2018 Impending infarction Bryson Steiner M.D. Onset: 01/21/2018 Anemia Yuval Marshall M.D. Onset: 01/22/2018 Paroxysmal atrial fibrillation Lennox Singh M.D. Onset: 01/23/2018 Chronic kidney disease stage 3 Lennox Singh M.D. Onset: 01/23/2018 Gastric ulcer without hemorrhage, Lennox Singh M.D. 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 Onset: 01/25/2018 Chest pain Ivanna Palomo.OKandi Onset: 01/31/2018 Hypothyroidism Ivanna Palomo.Benjamin Onset: 01/31/2018 Chronic diastolic heart failure Shanda Gregory D.O. Onset: 02/01/2018 Hypertensive heart and chronic kidney Ivanna Palomo.O. Onset: 02/01/2018 disease with heart failure and stage 1 through stage 4 chronic kidney disease, or unspecified chronic kidney disease Pneumonia PHYLLIS Lara Onset: 04/12/2018 Hypertensive heart disease with heart Arnold Holguin MD Onset: 06/02/2018 failure Idiopathic gout, left ankle and foot Arnold Holguin MD Onset: 06/02/2018 Low back pain Arnold Holguin MD Onset: 06/02/2018 Urinary tract infectious disease Arnold Holguin MD Onset: 06/02/2018 Atherosclerotic heart disease of Arnold Holguin MD Onset: 07/07/2018 shawnee coronary artery with unspecified angina pectoris Family History Date Family Member(s) Observation Comments Father Heart Disease Mother breathibg issues Mother Congestive Heart Failure (CHF) Social History Type Date Description Comments Sex Unknown Marital Status 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, 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 Tobacco Use Start: Unknown Never Smoked Cigarettes Smoking Status Reviewed: 11/17/18 Never Smoked Cigarettes ETOH Use Rarely consumes alcohol Tobacco Use Start: Unknown Patient has never smoked Recreational Drug Use Denies Drug Use Exercise Type/Frequency Does not exercise Limited physical mobility Allergies, Adverse Reactions, Alerts Active Allergies Reaction Severity Comments Date Gabitril rash, rash 02/18/2011 Naproxen itching 02/18/2011 Lipitor leg weakness leg weakness 02/18/2011 Uniphyl stomach pain 02/18/2011 Zanaflex hallucination 02/18/2011 CT Scan Dye/ Contrast Dizzy/ Blurry Eye 06/17/2016 Cytotec 05/23/2017 Imipramine 05/23/2017 Simvastatin leg weakness 05/23/2017 Rosuvastatin Calcium leg weakness 05/23/2017 Pravastatin Sodium vomiting 06/27/2017 Pravastatin vomiting 06/27/2017 Any Statins 10/10/2017 Nitrofurantoin 10/16/2017 Misoprostol 02/03/2018 Theophylline 02/03/2018 Tiagabine 02/03/2018 Tizanidine 02/03/2018 Fentanyl 02/03/2018 Amitriptyline 02/03/2018 Brilinta dyspnea 05/01/2018 Inactive Allergies Aspirin 02/18/2011 Medications Active Medications SIG Qnty Indications Ordering Date Provider Guaifenesin one to two tablets 30tabs Agnes Boss NP 11/17/2018 200mg by mouth every 4 Tablets hours Amiodarone HCL 1/2 tab by mouth 90tabs You Delgado, 07/23/2018 every day DO FACC 200mg Tablets Torsemide 1 by mouth every day 90tabs You Delgado, 07/23/2018 20mg until seen on by DO FAC Tablets superintendent general Colchicine take 2 tabs daily 45tabs Arnold Holguin MD 06/04/2018 0.6mg for 7 days. Then Tablets reduce to 1 tab daily. Plavix Take one tablet by 90tabs You Delgado, 02/27/2018 75mg Tablets mouth daily DO FACC Electric Bed Electric bed for R26.9 You Delgado, 01/02/2018 home use DO [facility] I50.32 R60.0 Repatha Sureclick sc [id number] ( has 2ml You Duggan 12/03/2017 140mg/ml not started yet) Danny DO FLORC Solution Auto-Inject Amlodipine Besylate 1 by mouth every 90tabs I25.119 You S. 08/20/2017 10mg day Danny DO FLORC Tablets Ezetimibe take one tablet 90tabs E78.5 You S. 06/27/2017 10mg Tablets daily, generic if Danny, DO FACC available Oxygen please use o2 at 1units R09.02 Sharon Peter, 08/15/2016 Misc 2l/min with exertion. pls provide pt with light wt conserving device for o2 Nitroglycerin 1 sl q5mins x3 as 25tabs You S. 0.4mg Tablets needed for chest Danny DO KYM Sub pain Shark Cartilage 2 by mouth twice Unknown 500mg a day Calcium& Magnesium 1 po daily Unknown 750-465mg Aspirin Ec 1 by mouth every Unknown 81mg Tablets DR day Acetaminophen 2 tablets by mouth Unknown 325mg Tablets every 6 hours as needed for pain/fever Vitamin D 2 tabs by mouth 90tabs Unknown 1000Units Tablets everyday Pramipexole 2mg (4 tabs) by Unknown Dihydrochloride mouth at bedtime 0.5mg Tablets Melatonin 1 tab by mouth at Unknown 10mg Capsules bedtime as needed for insomnia Ranitidine HCL Take 1 Capsule 90caps Peter T. 150mg Capsules After Dinner ( MD Rocael taken 1 hour before supper) Omeprazole 1 by mouth every 90caps You S. 40mg Capsules DR day Danny DO FACC Ferrous Sulfate 1 by mouth every Unknown 325(65Fe) mg day Tablets Metoprolol Succinate ER 1 by mouth twice a Unknown 25mg day Tablets ER 24HR Nasacort Allergy 24HR 2 puffs each nare Unknown every day bid 55mcg/Act Aerosol Primidone take 3 tablets Unknown 50mg Tablets (150 mg) by mouth at bedtime Hydrocodone-Acetaminophe 1-2 po Q4H prn 120tabs Unknown n 10/325 Tablets Singulair 1 po qd 30tabs Unknown 10mg Tablets Vitamin B Complex 1 po daily Unknown Albuterol Sulfate qid prn neb 100units Unknown 2.5mg/3ML 0.083% Nebulizer Senna take 2 tablets by Unknown 8.6mg Tablets mouth twice a day Colace 2 cap po bid Unknown 100mg Capsules Fluticasone Propionate 1 sprays each Unknown nostril twice a 110mcg/Act Suspension day Multivitamin + Folic 1 tablet once a Unknown Acid day 400mcg Tablet Venlafaxine HCL 1 qhs per patient 270tabs Jaziel Duggan 37.5mg Jeane Hurst Tablets Levocetirizine 1 by mouth every Unknown Dihydrochloride day 5mg Tablets Amitriptyline HCL take 1 tablets Unknown 10mg every night Tablets Levothyroxine Sodium 1 by mouth every Unknown 175mcg day Tablets Ventolin HFA 2 puffs by mouth Unknown 108(90Base) four times a day mcg/Act Aerosol as needed Breo Ellipta 1 puff inhaled Unknown 100-25mcg/Inh daily Aerosol History Medications Isosorbide Take 2 tablets by 180tabs I48.0 You Duggan 07/23/2018 - Mononitrate ER mouth (240 mg) DO Danny 09/10/2018 120mg once a day FACC Tablets ER 24HR Prednisone take 2 tab daily 14tabs M10.072 Arnold Holguin MD 07/07/2018 - 20mg Tablets for 7 days. ( 07/21/2018 Finished) Pantoprazole Sodium one each morning 30tabs Benny Vergara 05/18/2018 - before breakfast MD Rocael 05/30/[address] Amiodarone HCL 1 by mouth every 90tabs You Duggan 05/01/2018 - 100mg day, use generic DO Danny 07/23/2018 Tablets FACC Metoprolol Tartrate Take two by mouth You Duggan 02/13/2018 - twice a day DO Danny 02/13/2018 25mg Tablets FACC Metoprolol Tartrate 1 by mouth twice 180tabs Arnold Holguin MD 02/13/2018 - a day 08/10/2018 25mg Tablets Metoprolol Succinate 1 by mouth twice You S. 01/27/2018 - ER daily Delgado, DO 02/11/2018 50mg Tablets ER 24HR FAC Metoprolol Tartrate 1 by mouth twice You SKandi 01/27/2018 - a day(increased Delgado, DO 01/30/2018 50mg Tablets prior to Cath) FACC Brilinta 1 tab by mouth 180tabs You S. 01/27/2018 - 90mg Tablets twice a day Delgado, DO 02/27/2018 FACC Plavix Take one tablet a 60tabs I25.119 You S. 12/30/2017 - 75mg Tablets day Delgado, DO 01/26/2018 FACC Ranexa Take one by mouth 60tabs You S. 12/25/2017 - 500mg Tablets ER twice daily Delgado, DO 02/13/2018 12HR FACC Isosorbide Take one tablet 90tabs I25.119 You S. 08/22/2017 - Mononitrate ER by mouth daily Delgado, DO 07/22/2018 120mg FACC Tablets ER 24HR Omeprazole 1 orally qd-takes 90caps I25.119 You S. 06/27/2017 - 40mg 1 po twice daily Delgado, DO 05/18/[address] per pt [facility] Sucralfate 1 by mouth three 90tabs You S. 05/23/2017 - 1gm Tablets times a day prior Delgado, DO 05/21/2017 to meals and at [facility] hs Amlodipine Besylate 2 by mouth every 90tabs I25.119 You S. 05/23/2017 - 5mg day Delgado, DO 08/20/2017 Tablets FAC Pravastatin Sodium 1 by mouth every 90tabs I25.119 You S. 05/23/2017 - 10mg evening Delgado, DO 06/26/2017 Tablets FAC Topiramate 1 every night at 120tabs Jaziel SKandi 07/18/2016 - 25mg Tablets bedtime for 1 eJane Hurst 12/03/2016 week then 2 every night at bedtime for 1 week then 3 every night at bedtime for 1 week then 4 Spiriva Respimat 2 puffs, daily 12gm J45.909 Sharon 06/10/2016 - MD Brittani 05/21/2017 1.25mcg/Act Aerosol Ferrous Sulfate 1 po every day Unknown - 06/25/2018 325(65Fe) mg Tablets Omeprazole 1 by mouth bid Unknown - 40mg 06/26/[address] Amiodarone HCL 1 by mouth once a 90tabs You S. - 200mg day-on Hold Delgado, DO 05/01/2018 Tablets FACC Metoprolol Tartrate 1 by mouth twice 180tabs You S. - a day Delgado, DO 01/30/2018 25mg Tablets FACC Acetaminophen 2 tablets by Unknown - 325mg mouth tid as 07/01/2017 Tablets needed for pain/fever Proventil HFA prn Unknown - Neb 05/22/2017 Flovent HFA 1 puff daily to Unknown - 110mcg/Act tongue 04/08/2018 Aerosol Rosuvastatin Calcium 1 by mouth at hs Unknown - 05/22/2017 20mg Tablets Nasacort Aq 2 sprays in each Unknown - 55mcg/Act nostril bid 08/21/2017 Aerosol Ranitidine HCL take one tablet Unknown - 150mg by mouth twice a 06/27/2017 Tablets day-Hasnt Started. Nasacort Allergy 24HR 1 sprays in left Unknown - nostril, once 11/26/2017 55mcg/Act Aerosol daily Proventil HFA inhale two puffs Unknown - by mouth four 01/15/2018 108(90Base) mcg/Act times a day as Aerosol needed Vitamin C 1 by mouth every Unknown - 1000mg day 10/14/2017 Tablets Amoxicillin 1 po bid for 7 Manas Villeda - 875mg kiran Arzate MD 10/09/2017 Tablets Zetia 1 by mouth every Unknown - 10mg Tablets day 10/09/2017 Lisinopril 1 by mouth twice Unknown - 10mg Tablets per day 09/10/2018 Isosorbide 4 by mouth every I48.0 Unknown - Mononitrate ER day 07/23/2018 60mg Tablets ER 24HR Torsemide 1 po qd. 100tabs Unknown - 10mg Tablets 07/23/2018 Klor-Con M20 1 po qd 30tabs Unknown - 20Meq 12/03/2016 Tablets ER Synthroid 1 po qd 30tabs Unknown - 137mcg 07/25/2017 Tablets Prilosec 1 po twice a day 30caps Unknown - 40mg Capsules 05/21/2017 DR Parris CAMPOS 1 qhs prn 30tabs Unknown - 12.5mg 04/05/2015 Tablets ER Lasix 1 po qd 30tabs Unknown - 40mg Tablets 05/21/2017 Mirapex 2 po at hs 60tabs Unknown - 1mg Tablets 10/09/2017 Nabumetone 1 po bid 60tabs Unknown - 500mg 12/03/2016 Tablets Primidone 2 by mouth every 270tabs Jaziel S. - 50mg Tablets night at bedtime Jeane Hurst 02/02/2018 Vitamin D 2 po daily Unknown - 1000Iu 08/21/2017 Advair Diskus 1 puff po bid ( 1diskus Unknown - only taken if ran 02/02/2018 500-50mcg/Dose out of Breo) Aerosol Caltrate 600+D 1 po daily Unknown - 10/09/2017 300-300mg Tablets Advair Diskus inhale 1-2 puffs Unknown - bid or uses breo 07/01/2017 500-50mcg/Dose instead Aerosol Propranolol HCL 1 by mouth qd Unknown - 40mg 12/03/2016 Tablets Metoprolol Succinate 1 by mouth daily Unknown - ER 05/21/2017 25mg Tablets Isosorbide take one tablet 180tabs I25.119 You S. - Mononitrate ER by mouth twice DelgadoDO 08/22/2017 30mg daily FACC Tablets ER 24HR Sucralfate 1 30 minutes Unknown - Powder before meals tid 04/29/2017 Multaq 1 by mouth twice Unknown - 400mg Tablets a day 04/29/2017 Medications Administered in Office Medication SIG Qnty Indications Ordering Provider Date Technetium TC 99M Ica Nuclear Schedule 03/26/2018 Tetrofosmin, Per Unit Dose Up To 40 Millicuries Injection Inj, Regadenoson, 0.1 MG You Delgado, DO FACC 03/25/2018 Injection Technetium TC 99M You Delgado, DO FACC 03/25/2018 Tetrofosmin, Per Unit Dose Up To 40 Millicuries Injection Immunizations CPT Code Status Date Vaccine Lot # [id number] Given 06/28/1997 Flu Vaccine Vital Signs Date Vital Result Comment 11/17/2018 11:21am Weight 242.00 lb Heart Rate 53 /min BP Systolic Sitting 145 mmHg BP Diastolic Sitting 68 mmHg O2 % BldC Oximetry 97 % 10/23/2018 10:23am Weight 238.00 lb Heart Rate 76 /min irregular BP Systolic Sitting 106 mmHg Ra lower large cuff BP Diastolic Sitting 78 mmHg Ra lower large cuff BP Systolic Standing 114 mmHg Ra lower large cuff BP Diastolic Standing 88 mmHg Ra lower large cuff Respiratory Rate 20 /min Pain Level 8 back and generalized pain. O2 % BldC Oximetry 93 % 09/11/2018 4:05pm Heart Rate 78 /min BP Systolic Sitting 122 mmHg R forearm reg cuff BP Diastolic Sitting 76 mmHg R forearm reg cuff BP Systolic Standing 122 mmHg R forearm reg cuff BP Diastolic Standing 80 mmHg R forearm reg cuff 07/23/2018 3:32pm Height 61 inches 5'1" Weight 259.00 lb w/shoes Heart Rate 68 /min BP Systolic Sitting 142 mmHg BP Diastolic Sitting 72 mmHg BP Systolic Standing 148 mmHg BP Diastolic Standing 78 mmHg BMI (Body Mass Index) 48.9 kg/m2 Ejection Fraction 62% Nuclear Stress Test 03/25/18 07/07/2018 11:11am Heart Rate 54 /min BP [...] Date Facility Test Result H/L Range Note Basic Metabolic 07/15/2018 [facility] Sodium 138 mmol/L N 135- [address] [place] [address] [phone] Chloride 107 mmol/L N 101-111 Co2 Carbon Dioxide 27 mmol/L N 22-32 Glucose 98 mg/dL N 70-100 Blood Urea Nitrogen 46 mg/dL High 6-24 Creatinine 1.45 mg/dL High 0.51-0.95 BUN/Creatinine Ratio 31.7 High 8-20 Calcium 8.8 mg/dL N 8.6-10.3 Egfr Non- 34.9 >60 Egfr 42.3 >60 1 Potassium 5.2 mmol/L High 3.5-5.0 Anion Gap 4 mmol/L N 2-11 Urinalysis Profile 07/02/2018 [facility] Urine Color Yellow [address] [place] [address] [phone] Urine Appearance Cloudy Urine Specific [place] 1.013 N 1.010-1.030 Urine pH 6.0 N 5-9 Urine Urobilinogen Negative Negative Urine Ketones Negative Negative Urine Protein 2+(100 mg/dL) Abnormal Negative Urine Leukocytes Negative Negative Urine Blood Negative Negative * * Abnormal Negative 2 Urine Nitrite Negative Negative Urine Bilirubin Negative Negative Urine Glucose Negative Negative Urine White Blood Cell Trace(0-5/hpf) Absent Urine Red Blood Cell 1+(3-5/hpf) Abnormal Absent Urine Bacteria Absent Absent Urine Squamous Epithelial Cell Present Abnormal Absent CBC Auto Diff 07/02/2018 [facility] White Blood 4.5 10^3/uL N 3.5-10.[address] [place] [address] [phone] Red Blood Count 3.35 10^6/uL Low 4.00-5.40 [...] Blood Cells % 0 Laboratory test 07/02/2018 [facility] Uric Acid 8.0 mg/dL High 2.3-6.[address] [place] [address] [phone] Urine Culture And 07/02/2018 [facility] Urine SEE RESULT [address] [place] [address] [phone] CBC Auto Diff 06/02/2018 [facility] White Blood 5.3 N 3.5- 10.[address] Count 10^3/[place] [address] [phone] Red Blood Count 3.52 10^6/uL Low 4.00-5.40 [...] Blood Cells % 0 Laboratory test 06/02/2018 [facility] Uric Acid 7.7 mg/dL High 2.3-6.[address] [place] [address] [phone] Urinalysis 06/02/2018 [facility] Urine Color Yellow Profile [address] [place] [address] [phone] Urine Appearance Clear Urine Specific [place] 1.013 N 1.010-1.030 Urine pH 6.0 N 5-9 Urine Urobilinogen Negative Negative Urine Ketones Negative Negative Urine Protein 2+(100 mg/dL) Abnormal Negative Urine Leukocytes Trace Abnormal Negative Urine Blood Negative Negative * * Abnormal Negative 4 Urine Nitrite Negative Negative Urine Bilirubin Negative Negative Urine Glucose Negative Negative Urine White Blood Cell Trace(0-5/hpf) Absent Urine Red Blood Cell Trace(0-2/hpf) Absent Urine Bacteria 1+ Abnormal Absent Urine Squamous Epithelial Cell Present Abnormal Absent Urine Hyaline Casts Present Abnormal Absent Urine Culture And 06/02/2018 [facility] Urine Culture SEE RESULT [address] [place] [address] [phone] CBC No Diff 02/05/2018 [facility] White Blood 6.5 10^3/uL N 3.5-[address] Count .8 [place] [address] [phone] Red Blood Count 3.52 10^6/uL Low 4.00-5.40 [...] um3 N 7.4-10.4 CBC Auto Diff 02/03/2018 [facility] White Blood 7.0 10^3/uL N 3.5-10.[address] [place] [address] [phone] Red Blood Count 3.44 10^6/uL Low 4.00-5.40 [...] Blood Cells % 0 Laboratory test 01/20/2018 [facility] TSH (Thyroid 8.23 High 0.34-5.[address] Stim Horm) mcIU/mL [place], [place] [id number] [phone] Free T4 (Free Thyroxine) 1.17 ng/dL High 0.61-1.12 Cath Panel 01/20/2018 [facility] Partial 26.2 seconds N 26.0- 36.[address] [place] [address] [phone] Inr/Protime 01/20/2018 [facility] Inr 0.93 N 0.77-1.[address] [place] [address] [phone] CBC Auto 01/20/2018 [facility] White Blood 6.4 10^3/uL N 3.5- 10.[address] [place] [address] [phone] Red Blood Count 2.91 10^6/uL Low 4.00-5.40 [...] Cells % 0 Comp Metabolic Panel 01/20/2018 [facility] Sodium 138 mmol/L N 135-[address] [place] [address] [phone] Chloride 101 mmol/L N 101-111 Co2 Carbon [...] Egfr Non- 32.6 >60 Egfr 39.4 >60 7 Potassium 5.2 mmol/L High 3.5-5.0 Anion Gap 9 mmol/L N 2-11 Laboratory test 01/20/2018 [facility] Ferritin 151.0 N 11-[address] ng/[place] [address] [phone] Laboratory test 08/15/2017 [facility] LDL Cholesterol 103 mg/dL [address] [place] [address] [phone] TSH (Thyroid Stim Horm) 15.82 mcIU/mL High 0.34-5.60 Laboratory test 06/26/2017 [facility] Magnesium 1.8 mg/dL Low 1.9-2.[address] [place] [address] [phone] Free T4 (Free Thyroxine) 1.19 ng/dL High 0.61-1.12 TSH (Thyroid Stim Horm) 10.61 mcIU/mL High 0.34-5.60 B-Type Natriuretic Peptide BNP 351 pg/mL High 9 Laboratory test 06/26/2017 [facility] LDL Cholesterol 126 mg/dL [address] [place] [address] [phone] Comp Metabolic 06/26/2017 [facility] Sodium 138 mmol/L N 133- [address] [place] [address] [phone] Potassium 4.0 mmol/L N 3.5-5.0 Chloride 102 [...] Egfr Non- 38.0 >60 Egfr 48.9 >60 11 Basic Metabolic Panel 06/11/2016 [facility] Sodium 136 mmol/L N 133-[address] [place] [address] [phone] Potassium 5.2 mmol/L High 3.5-5.0 Chloride 106 mmol/L N 101-111 Co2 Carbon Dioxide 23 mmol/L N 22-32 Anion Gap 7 mmol/L N 2-11 Glucose 135 mg/dL High 70-100 Blood Urea Nitrogen 35 mg/dL High 6-24 Creatinine 1.26 mg/dL High 0.51-0.95 BUN/Creatinine Ratio 27.8 High 8-20 Calcium 9.4 mg/dL N 8.6-10.3 Egfr Non- 41.3 N >60 Egfr 53.1 N >60 12 1 Because ethnic data is not always readily [...] 15-29 5 Kidney failure <15 (or dialysis) 2 *Ascorbic acid is present which may interfere with detection of blood. 3 SEE RESULT BELOW Name: JOCELYNE MARTIN : [address]: Arnold Holguin MD Acct: [id number] Unit: [id number] AGE: 77 Location: [facility] Re07/02/18 SEX: F Status: REG REF SPEC: [id number] OSCAR: 07/02/[address] [facility] [address]: Arnold Holguin MD REQ: [id number] RECD: 07/02/18 STATUS: FRANKI DE JESUS DR: Avinash Romero MD _ SOURCE: URINE SPDESC: ORDERED: Urine Culture Procedure Result Reported Site Urine Culture Final 07/04/18- 0827 ML Organism 1 STAPHYLOCOCCUS EPIDERMIDIS [place] Count 75-100,000 (Many) CFU/ML 1. STAPHYLOCOCCUS EPIDERMIDIS [facility].I.C. RX --------- ------ Penicillin >=0.5 R Gentamicin <=0.5 S Linezolid 1 S Nitrofurantoin <=16 S Oxacillin >=4 R * Quinupristin/Dalfopristin <=0.25 S Rifampin <=0.5 S Tetracycline >=16 R Tigecycline <=0.12 S Vancomycin 1 S Imipenem-Deduced R * Ampicillin/Sulbactam-Deduced R Cefazolin-Deduced R * These antibiotics are not available in the [facility] Formulary Contact the Microbiology Department for any additional antibiotic reporting. * [facility] - Main Lab . END OF REPORT DEPARTMENT OF PATHOLOGY, [address] [place] [address] Ramos Durand M.D. Director [facility] # [id number] 4 *Ascorbic acid is present which may interfere with detection of blood. 5 SEE RESULT BELOW Name: VERONICAJOCELYNE A : [address]: Arnold Holguin MD Acct: [id number] Unit: [id number] AGE: 77 Location: LAB Re06/02/18 SEX: F Status: REG REF SPEC: [id number] OSCAR: 06/02/18-[address]: Arnold Holguin MD REQ: [id number] RECD: 06/04/18 STATUS: COMP _ SOURCE: URINE SPDESC: ORDERED: Urine Culture Urine Source: Clean Catch Procedure Result Reported Site Urine Culture Final 06/05/18926 ML No growth of clinically significant organisms * [facility] - Main Lab . END OF REPORT DEPARTMENT OF PATHOLOGY, [address] [place] [address] Ramos Durand M.D. Director [facility] # [id number] HERRON CELL PHONE [phone] 7 Because ethnic data is not always [...] 5 Kidney failure <15 (or dialysis) 8 Desirable: <100 Near Optimal: 100-129 Borderline High: 130-159 High: 160-189 Very High: >189 9 >100 to <200 pg/mL: likely compensated congestive heart failure (CHF) 200 to 400 pg/mL: likely moderate CHF >400 pg/mL: likely moderate to severe CHF 10 Desirable: <100 Near Optimal: 100-129 Borderline High: 130-159 High: 160-189 Very High: >189 11 Because ethnic data is not always [...] (or dialysis) Procedures Date Code Description Status 11/10/2018 98919 Destruction ALL Benign Or Premalignant Lesion (Other Completed Than [place] 11/09/2018 16218 ECHO Transthoracic, Real-Time 2D With Doppler And Completed Color Flow 09/11/2018 74454 EKG Tracing & Interpretation Completed 07/19/2018 24990 EKG, Interpretation Only Completed 06/26/2018 19175 EKG Tracing & Interpretation Completed 04/09/2018 05884 EKG Tracing & Interpretation Completed 03/25/2018 34493 Stress Test Completed 03/25/2018 21788 Myocardial Perfusion Imaging Tomographic (Spect) Completed Multiple Studies 02/03/2018 31722 EKG Tracing & Interpretation Completed 01/31/2018 62498 EKG, Interpretation Only Completed 01/26/2018 17832 EKG, Interpretation Only Completed 01/25/2018 81472 ECHO Transthorasic Realtime 2D W Doppler & Color Flow Completed Hosp 01/24/2018 62611 Insert Non-Tunneled Venous Catether Completed 01/24/2018 33182 EKG, Interpretation Only Completed 01/23/2018 84918 Cath PLMT&NJX L Ventriculog Img S&I Completed 01/23/2018 94886 EKG, Interpretation Only Completed 01/23/2018 20227 Percutaneous Transcatheter Placement Of Intracoronary Completed Stent 01/16/2018 77731 EKG Tracing & Interpretation Completed 12/30/2017 11649 EKG Tracing & Interpretation Completed 12/29/2017 18260 Diffusing Capacity Completed 12/29/2017 04993 Pulmonary Function><Bronchodil Completed 12/03/2017 91579 EKG Tracing & Interpretation Completed 10/10/2017 72905 EKG Tracing & Interpretation Completed 05/23/2017 94411 EKG Tracing & Interpretation Completed 10/14/2016 34795 ECHO Transthorasic Realtime 2D W Doppler & Color Flow Completed Hosp 10/11/2016 23347 EKG, Interpretation Only Completed 10/01/2016 00087 Cath PLMT&NJX L Ventriculog Img S&I Completed 09/29/2016 21089 EKG, Interpretation Only Completed 09/28/2016 06876 EKG, Interpretation Only Completed 09/26/2016 89781 Treadmill Interp/Report Only Completed 09/26/2016 78591 Stress Test Supervsn W/Out I/R Completed 09/25/2016 42240 Color Flow Doppler/Interp & Reprt Completed 09/25/2016 84276 Pulse Wave/Continuous-Interp.RPT Completed 09/25/2016 58713 Echocardiography, Transesophageal, Real Time W/Image Completed 2D W/W/O M-M 09/25/2016 15766 Cardioversion Completed 08/06/2016 [id number] Diabetic Retinal Eye Exam Completed 07/04/2016 66316 Diffusing Capacity Completed 07/04/2016 69378 Plethysmography Determination Lung Volumes & Per Completed Airway Resist 07/04/2016 83673 Pulmonary Function><Bronchodil Completed 07/03/2016 22596 Polysomnography Sleep Staging 4+ Parameters Completed 01/04/2016 05652 Nerve Conduction - Studies Completed 03/18/2012 30981 Nerve Conduction, Sensory Completed 03/18/2012 42423 Nerve Conduction, Motor W/O F-Wave Study Completed 02/18/2011 55651 Remove Impacted Cerumen Completed 05/07/2005 09143 Treadmill Interp/Report Only Completed 05/07/2005 61321 Stress Test Supervsn W/Out I/R Completed 01/24/1999 01322 Intramuscular Injection Completed 01/17/1999 73238 Intramuscular Injection Completed 01/11/1999 99502 Intramuscular Injection Completed 01/03/1999 54858 Intramuscular Injection Completed 12/27/1998 37013 Intramuscular Injection Completed 12/20/1998 29841 Intramuscular Injection Completed 12/13/1998 64873 Intramuscular Injection Completed 12/06/1998 15927 Intramuscular Injection Completed Encounters Type Date Location Provider Dx Diagnosis Office Visit 11/10/2018 [facility] Dermatology AT Kris Merrill MD L82.1 Other seborrheic 4:00p [place] keratosis Z08 Encntr for follow-up exam after trtmt for malignant neoplasm Z85.828 Personal history of other malignant neoplasm of skin L57.0 Actinic keratosis Office Visit 10/23/2018 9:40a Cardiology You Duggan R06.02 Shortness of Services Of Karina Delgado, DO breath AT 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 I48.0 Paroxysmal atrial fibrillation D64.89 Other specified anemias I50.32 Chronic diastolic (congestive) heart failure E66.8 Other obesity E03.9 Hypothyroidism, unspecified G25.0 Essential tremor N18.9 Chronic kidney disease, unspecified D47.1 Chronic myeloproliferative disease I10 Essential (primary) hypertension E78.5 Hyperlipidemia, unspecified Office Visit 10/13/2018 [facility] Avinash Romero, D47.1 Chronic 3:20p Center Of Karina Ching myeloproliferative AT [place] disease D50.9 Iron deficiency anemia, unspecified R63.0 Anorexia R63.4 Abnormal weight loss R10.9 Unspecified abdominal pain 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 graft Office Visit 09/11/2018 4:00p [facility] You Duggan Z95.1 Presence of Of Karina Delgado DO aortocoronary [facility] bypass graft 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[place] coronary artery w/o ang pctrs I48.0 Paroxysmal atrial fibrillation D64.89 Other specified anemias I50.32 Chronic diastolic (congestive) heart failure E66.8 Other obesity E03.9 Hypothyroidism, unspecified G25.0 Essential tremor N18.9 Chronic kidney disease, unspecified D47.1 Chronic myeloproliferative disease I10 Essential (primary) hypertension E78.5 Hyperlipidemia, unspecified Office Visit 07/23/2018 3:40p [facility] You Duggan I48.0 Paroxysmal atrial Of Karina Delgado, DO fibrillation FAC I25.119 [place] heart disease of [place] cor art w unsp ang pctrs D64.89 Other specified anemias I50.32 Chronic diastolic (congestive) heart failure E66.8 Other obesity E03.9 Hypothyroidism, unspecified G25.0 Essential tremor N18.9 Chronic kidney disease, unspecified I11.0 Hypertensive heart disease with heart failure Office Visit 07/20/2018 9:15a [facility] I20.8 Other forms of Assoc,carli Connolly M.D. angina pectoris Hospitalists E87.5 Hyperkalemia I48.0 Paroxysmal atrial fibrillation N18.3 Chronic kidney disease, stage 3 (moderate) Office Visit 07/19/2018 11:24a [facility] Saad Gato R07.9 Chest pain, Of [facility] Jeane Holley, unspecified FACC, FASNC Z98.61 Coronary angioplasty status I25.2 Old myocardial infarction Office Visit 07/19/2018 9:14a [facility] Capri I20.9 Angina pectoris, Assoc,carli Connolly M.D. 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, Clinic Of [facility] left ankle and foot I25.119 Aths[place] heart disease of [place] cor art w unsp ang pctrs D64.89 Other specified anemias I50.32 Chronic diastolic (congestive) heart failure I48.0 Paroxysmal atrial fibrillation N18.3 Chronic kidney disease, stage 3 (moderate) Office Visit 06/26/2018 10:40a Cardiology You Duggan I25.119 [place] heart Services Of [facility] AT [facility], DO disease of [place] FAC [place] cor art w unsp ang pctrs D64.89 Other specified anemias I48.0 Paroxysmal atrial fibrillation N18.3 Chronic kidney disease, stage 3 (moderate) I25.2 Old myocardial infarction I50.32 Chronic diastolic (congestive) heart failure I11.0 Hypertensive heart disease with heart failure E03.9 Hypothyroidism, unspecified D47.1 Chronic myeloproliferative disease Office Visit 06/09/2018 [facility] Avinashvilma Romero, D47.1 Chronic 11:00a Center Of Karina Ching myeloproliferative AT [place] disease I20.9 Angina pectoris, unspecified D64.89 Other specified anemias Office Visit 06/02/2018 1:00p [facility] Arnoldmegan Ahujad, D64.9 Anemia, Clinic [facility] unspecified I20.9 Angina pectoris, unspecified I48.0 Paroxysmal atrial fibrillation M54.5 Low back pain N18.3 Chronic kidney disease, stage 3 (moderate) I11.0 Hypertensive heart disease with heart failure 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, left ankle and foot N39.0 Urinary tract infection, site not specified Office Visit 05/18/2018 3:15p [facility] Benny Vergara E66.8 Other obesity MD Rocael M48.07 Spinal stenosis, lumbosacral region G44.221 Chronic tension-type headache, intractable R10.9 Unspecified abdominal pain K59.00 Constipation, unspecified Office Visit 05/12/2018 [facility] Avinash Romero, D47.1 Chronic 2:40p Center Of Karina Ching myeloproliferative AT [place] disease D64.9 Anemia, unspecified Office Visit 05/01/2018 11:15a Cardiology You Duggan I25.119 [place] heart Services Of [facility] AT [facility], DO disease of [place] FAC [place] cor art w unsp ang pctrs I48.0 Paroxysmal atrial fibrillation N18.9 Chronic kidney disease, unspecified I25.2 Old myocardial infarction I11.0 Hypertensive heart disease with heart failure E66.8 Other obesity I50.32 Chronic diastolic (congestive) heart failure G25.81 Restless legs syndrome D64.9 Anemia, unspecified E03.9 Hypothyroidism, unspecified Office Visit 04/30/2018 [place] Jaziel Duggan I20.9 Angina pectoris, 3:15p Neurologic Serv Of Jeane Hurst unspecified [facility] G44.221 Chronic tension-type headache, intractable G25.0 Essential tremor M48.07 Spinal stenosis, lumbosacral region Office Visit 04/15/2018 10:59a [facility] Maryjane Pauline, J18.9 Pneumonia, Assoc,pc [employer]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 disease of [place] coronary artery w/o ang pctrs J18.9 Pneumonia, unspecified organism R79.89 Other specified abnormal findings of blood chemistry Office Visit 04/13/2018 10:58a [facility] Maryjane Pauline, J18.9 Pneumonia, Assoc,pc [employer]ISTANT PROF[employer] unspecified Hospitalists organism R07.9 Chest pain, unspecified I10 Essential (primary) hypertension J96.11 Chronic respiratory failure with hypoxia N18.3 Chronic kidney disease, stage 3 (moderate) Office Visit 04/13/2018 3:14p [facility] Delroy Forte R07.89 Other chest Of Karina Hilliard M.D. pain R79.89 Other specified abnormal findings of blood chemistry J18.9 Pneumonia, unspecified organism 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[place] coronary artery w/o ang pctrs J40 Bronchitis, not specified as acute or chronic Office Visit 04/12/2018 [facility] Bahgat J18.9 Pneumonia, 10:57a Assoc,pc PYHLLIS Collazo unspecified Hospitalists organism N18.3 Chronic kidney disease, stage 3 (moderate) I48.91 Unspecified atrial fibrillation E03.9 Hypothyroidism, unspecified Office Visit 04/09/2018 3:40p [facility] You Duggan I25.2 Old myocardial Of [facility] Delgado, DO infarction FACC 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[place] coronary artery w/o ang pctrs I50.32 Chronic diastolic (congestive) heart failure I11.0 Hypertensive heart disease with heart failure I48.0 Paroxysmal atrial fibrillation D64.9 Anemia, unspecified E66.8 Other obesity E03.9 Hypothyroidism, unspecified Office Visit 02/26/2018 1:30p Pulmonology And Sharon R06.02 Shortness of Sleep Services Of MD Brittani breath [facility] J45.20 Mild intermittent asthma, uncomplicated G47.33 Obstructive sleep apnea (adult) (pediatric) Office Visit 02/17/2018 [facility] Avinash Romero, D47.1 Chronic 3:00p Center [facility] Jeane myeloproliferative AT [place] disease D64.9 Anemia, unspecified I21.4 Non-St elevation (Nstemi) myocardial infarction Office Visit 02/13/2018 10:20a Cardiology You Duggan I25.2 Old myocardial Services Of [facility] Danny, DO infarction AT 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 unspecified Hospitalists I50.32 Chronic diastolic (congestive) heart failure I48.0 Paroxysmal atrial fibrillation I11.0 Hypertensive heart disease with heart failure Office Visit 02/01/2018 [facility] Shanda I50.32 Chronic diastolic 1:14p Assoc,carli Gregory, D.O. (congestive) heart Hospitalists failure 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 J96.11 Chronic respiratory failure with hypoxia G25.81 Restless legs syndrome N18.3 Chronic kidney disease, stage 3 (moderate) Office Visit 01/31/2018 1:29p [facility] Saad Hoskins R07.9 Chest pain, Of [facility] Jeane Holley, unspecified FAC, FASNC Office Visit 01/31/2018 1:13p [facility] Shanda D64.9 Anemia, Assoc,carli Gregory D.O. unspecified Hospitalists R07.9 Chest pain, unspecified I48.91 Unspecified atrial fibrillation E03.9 Hypothyroidism, unspecified G25.81 Restless legs syndrome Office Visit 01/27/2018 11:56a [facility] Lennox Singh, I20.0 Unstable Assoccarli M.D. angina Hospitalists G25.81 Restless legs syndrome J96.11 Chronic respiratory failure with hypoxia I48.91 Unspecified atrial fibrillation S30.1xxA Contusion of abdominal wall, initial encounter D64.9 Anemia, unspecified Office Visit 01/26/2018 [facility] J96.21 Acute and chronic 11:56a carli Murray M.D. respiratory Hospitalists failure with hypoxia 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[place] coronary artery w/o ang pctrs S30.1xxA Contusion of abdominal wall, initial encounter I48.91 Unspecified atrial fibrillation N18.3 Chronic kidney disease, stage 3 (moderate) D64.9 Anemia, unspecified Office Visit 01/25/2018 9:51a [facility] Bennie Herron, I21.4 Non- St elevation Of Counter Maker AT [facility], (Nstemi) FSCAI myocardial infarction 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[place] coronary artery w/o ang pctrs Office Visit 01/25/2018 [facility] J96.21 Acute and chronic 11:55a carli Murray M.D. respiratory Hospitalists failure with hypoxia 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[place] coronary artery w/o ang pctrs I48.91 Unspecified atrial fibrillation G25.81 Restless legs syndrome N18.3 Chronic kidney disease, stage 3 (moderate) S30.1xxA Contusion of abdominal wall, initial encounter Office Visit 01/24/2018 [facility] J96.21 Acute and chronic 11:54a carli Murray M.D. respiratory Hospitalists failure with hypoxia 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[place] coronary artery w/o ang pctrs I48.0 Paroxysmal atrial fibrillation I48.91 Unspecified atrial fibrillation N18.3 Chronic kidney disease, stage 3 (moderate) K25.9 Gastric ulcer, unsp as acute or chronic, w/o hemor or perf G25.81 Restless legs syndrome Office Visit 01/24/2018 9:49a [facility] Bennie Herron, I21.4 Non- St elevation Of [facility] [employer] [facility], (Nstemi) FSCAI myocardial infarction 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[place] coronary artery w/o ang pctrs Office Visit 01/23/2018 [facility] Lennox I48.91 Unspecified 11:52a Assoc,carli Singh M.D. atrial Hospitalists fibrillation J96.21 Acute and chronic respiratory failure with hypoxia I48.0 Paroxysmal atrial fibrillation N18.3 Chronic kidney disease, stage 3 (moderate) K25.9 Gastric ulcer, unsp as acute or chronic, w/o hemor or perf Office Visit 01/22/2018 11:52a [facility] Yuval I20.9 Angina pectoris, Assoc,carli Marshall M.D. unspecified Hospitalists N18.9 Chronic kidney disease, unspecified I48.91 Unspecified atrial fibrillation D64.9 Anemia, unspecified Office Visit 01/22/2018 9:22a [facility] Bennie Herron, R07.9 Chest pain, Of [facility] AT [facility] MAlejandro, [facility], unspecified FSCAI R79.89 Other specified abnormal findings of blood chemistry Office Visit 01/21/2018 11:50a [facility] Bryson I20.0 Unstable angina Assoc,carli Steiner M.D. Hospitalists I48.91 Unspecified atrial fibrillation G47.33 Obstructive sleep apnea (adult) (pediatric) N18.9 Chronic kidney disease, unspecified J96.10 Chronic respiratory failure, unsp w hypoxia or hypercapnia Office Visit 01/21/2018 [facility] I25.110 Athscl heart disease of 12:37p Cardiology Massimo Hilliard M.D. [place] cor art w [facility] unstable ang pctrs Office Visit 01/20/2018 [facility] Avinash D47.1 Chronic 2:40p Center [facility] Jeane Romero myeloproliferative AT [place] disease D53.9 Nutritional anemia, unspecified Office Visit 01/16/2018 3:40p [facility] You Duggan I20.0 Unstable angina Of [facility] DO Danny [facility] I25.119 [place] heart disease of [place] cor art w unsp ang pctrs D64.9 Anemia, unspecified N18.9 Chronic kidney disease, unspecified I48.0 Paroxysmal atrial fibrillation I50.32 Chronic diastolic (congestive) heart failure I25.2 Old myocardial infarction E78.5 Hyperlipidemia, unspecified Z87.11 Personal history of peptic ulcer disease E03.9 Hypothyroidism, unspecified Office Visit 12/30/2017 3:20p [facility] You SKandi I25.119 [place] heart Of [facility], DO disease of [facility] [place] cor art w unsp ang pctrs D64.9 Anemia, unspecified N18.9 Chronic kidney disease, unspecified I48.0 Paroxysmal atrial fibrillation I50.32 Chronic diastolic (congestive) heart failure Z87.11 Personal history of peptic ulcer disease E66.8 Other obesity I25.2 Old myocardial infarction E78.5 Hyperlipidemia, unspecified Office Visit 12/11/2017 [place] Jaziel Duggan G43.009 Migraine w/o 3:45p Neurologic Serv Of Jeane Hurst aura, not Counter Maker intractable, w/o status migrainosus G89.4 Chronic pain syndrome G44.221 Chronic tension-type headache, intractable Office Visit 12/03/2017 12:00p [facility] You SKandi Delgado, DO R51 Headache [facility] I25.119 [place] heart disease of [place] cor art w unsp ang pctrs E78.5 Hyperlipidemia, unspecified I48.0 Paroxysmal atrial fibrillation N18.9 Chronic kidney disease, unspecified I50.32 Chronic diastolic (congestive) heart failure Z87.11 Personal history of peptic ulcer disease E66.01 Morbid (severe) obesity due to excess calories D64.9 Anemia, unspecified Office Visit 11/11/2017 [facility] Avinash Romero, D47.1 Chronic 4:00p Center Of Karina Ching myeloproliferative AT [place] disease D53.9 Nutritional anemia, unspecified Office Visit 10/16/2017 [place] Jaziel Duggan G25.0 Essential 11:30a Neurologic Serv Of Jeane Hurst tremor [facility] R51 Headache I25.119 [place] heart disease of [place] cor art w unsp ang pctrs Office Visit 10/10/2017 10:20a Cardiology You SKandi I25.119 [place] heart Services Of [facility] AT [facility], DO disease of [facility] [place] cor art w unsp ang pctrs I48.0 Paroxysmal atrial fibrillation E78.5 Hyperlipidemia, unspecified E03.9 Hypothyroidism, unspecified N18.9 Chronic kidney disease, unspecified I50.32 Chronic diastolic (congestive) heart failure D64.9 Anemia, unspecified Z87.11 Personal history of peptic ulcer disease Office Visit 08/22/2017 11:00a Cardiology You SKandi I25.119 [place] heart Services Of [facility] AT [facility], disease of [facility] [place] cor art w unsp ang pctrs E66.01 Morbid (severe) obesity due to excess calories I48.0 Paroxysmal atrial fibrillation E78.5 Hyperlipidemia, unspecified E03.9 Hypothyroidism, unspecified I50.32 Chronic diastolic (congestive) heart failure N18.9 Chronic kidney disease, unspecified D64.9 Anemia, unspecified Z87.11 Personal history of peptic ulcer disease Office Visit 08/19/2017 [facility] Avinash Romero, D47.1 Chronic 4:00p Center Of Karina Ching myeloproliferative AT [place] disease R53.83 Other fatigue D53.9 Nutritional anemia, unspecified Office Visit 07/01/2017 [facility] And Sharon J45.20 Mild intermittent 1:30p Sleep Services Of MD Brittani asthma, [facility] uncomplicated E66.01 Morbid (severe) obesity due to excess calories Office Visit 06/27/2017 9:40a Cardiology You SKandi I25.119 [place] heart Services Of [facility] AT [facility], disease of [facility] [place] cor art w unsp ang pctrs I48.0 Paroxysmal atrial fibrillation E78.5 Hyperlipidemia, unspecified E03.9 Hypothyroidism, unspecified I50.32 Chronic diastolic (congestive) heart failure N18.9 Chronic kidney disease, unspecified E66.01 Morbid (severe) obesity due to excess calories D64.9 Anemia, unspecified Z87.11 Personal history of peptic ulcer disease Office Visit 06/18/2017 4:00p [place] [facility] Jaziel SKandi I20.8 Other forms of Services Of Counter [employer] Jeane Hurst angina pectoris R51 Headache G25.0 Essential tremor Office Visit 05/23/2017 10:40a Cardiology You SKandi I25.119 [place] heart Services Of [facility] AT [facility], disease of [facility] [place] cor art w unsp ang pctrs I48.0 Paroxysmal atrial fibrillation I50.9 Heart failure, unspecified E03.9 Hypothyroidism, unspecified Z87.11 Personal history of peptic ulcer disease D64.9 Anemia, unspecified N18.9 Chronic kidney disease, unspecified E78.5 Hyperlipidemia, unspecified R06.02 Shortness of breath Office Visit 05/01/2017 4:00p [place] Jaziel Hurst, R51 Headache Neurologic Serv Of [facility] M.D. I20.8 Other forms of angina pectoris Office Visit 04/01/2017 3:40p [facility] [facility] Avinash Romero, D64.9 Anemia, Center Of [facility] AT M.D. unspecified Jose Rafael Office Visit 12/30/2016 1:00p Pulmonology And Sahron R06.02 Shortness of Sleep Services Of MD Brittani breath [facility] J45.20 Mild intermittent asthma, uncomplicated G47.33 Obstructive sleep apnea (adult) (pediatric) E66.01 Morbid (severe) obesity due to excess calories Office Visit 10/16/2016 10:21a [facility] R06.02 Shortness of Assoc,carli Varner, ASSISTANT PROFESSOR OF THEATER breath Hospitalists I50.9 Heart failure, unspecified E03.9 Hypothyroidism, unspecified J18.1 Lobar pneumonia, unspecified organism Office Visit 10/15/2016 2:45p Pulmonology And Sharon J12.9 Viral pneumonia, Sleep Services Of MD Brittani unspecified [employer] J45.21 Mild intermittent asthma with (acute) exacerbation I50.31 Acute diastolic (congestive) heart failure Office Visit 10/15/2016 10:16a [facility] R06.02 Shortness of Assoc,carli Varner, ASSISTANT PROFESSOR OF THEATER breath Hospitalists E03.9 Hypothyroidism, unspecified I50.9 Heart failure, unspecified J18.1 Lobar pneumonia, unspecified organism Office Visit 10/14/2016 2:44p Pulmonology And Sharon J45.21 Mild intermittent Sleep Services Of MD Brittani asthma with [employer] (acute) exacerbation J12.9 Viral pneumonia, unspecified Office Visit 10/14/2016 10:16a [facility] R06.02 Shortness of Assoc,carli Varner, ASSISTANT PROFESSOR OF THEATER breath Hospitalists E03.9 Hypothyroidism, unspecified I50.9 Heart failure, unspecified J18.1 Lobar pneumonia, unspecified organism Office Visit 10/13/2016 [facility] Fawn Ramos R06.02 Shortness of 10:15a Assoc,carli Benson ASSISTANT PROFESSOR OF THEATER breath Hospitalists E03.9 Hypothyroidism, unspecified I50.9 Heart failure, unspecified J18.1 Lobar pneumonia, unspecified organism Office Visit 10/12/2016 [facility] Fawn Ramos R06.02 Shortness of 10:14a Assoc,carli Benson, ASSISTANT PROFESSOR OF THEATER breath Hospitalists I50.9 Heart failure, unspecified E03.9 Hypothyroidism, unspecified J18.1 Lobar pneumonia, unspecified organism Office Visit 10/11/2016 10:14a [facility] R06.02 Shortness of Assoc,carli Varner, ASSISTANT PROFESSOR OF THEATER breath Hospitalists E03.9 Hypothyroidism, unspecified I50.9 Heart failure, unspecified J18.1 Lobar pneumonia, unspecified organism Office Visit 10/10/2016 10:13a [facility] R06.02 Shortness of Assoc,carli Varner, ASSISTANT PROFESSOR OF THEATER breath Hospitalists E03.9 Hypothyroidism, unspecified I50.9 Heart failure, unspecified Office Visit 10/09/2016 10:12a [facility] Favio Mcqueen, R06.02 Shortness of Assoc,carli Ching breath Hospitalists E03.9 Hypothyroidism, unspecified I50.9 Heart failure, unspecified Office Visit 10/03/2016 9:29a [facility] [place]ox I21.4 Non-St elevation Assoccarli M.D. (Nstemi) Hospitalists myocardial infarction I48.91 Unspecified atrial fibrillation J45.20 Mild intermittent asthma, uncomplicated G47.33 Obstructive sleep apnea (adult) (pediatric) Office Visit 10/02/2016 9:28a [facility] [place] I21.4 Non-St elevation Assoc,carli Singh M.D. (Nstemi) Hospitalists myocardial infarction I48.91 Unspecified atrial fibrillation J45.20 Mild intermittent asthma, uncomplicated G47.33 Obstructive sleep apnea (adult) (pediatric) Office Visit 10/02/2016 1:07p [facility] Amber Kaminski, I25.10 [facility] Karina Ching disease of [place] coronary artery w/o ang pctrs I48.91 Unspecified atrial fibrillation Office Visit 10/01/2016 9:28a [facility] Capri I21.4 Non-St elevation Assoccarli M.D. ([facility]) Hospitalists myocardial infarction I48.91 Unspecified atrial fibrillation J45.20 Mild intermittent asthma, uncomplicated G47.33 Obstructive sleep apnea (adult) (pediatric) Office Visit 09/30/2016 9:27a [facility] I21.4 Non-St elevation Assoc,carli Connolly M.D. ([facility]) Hospitalists myocardial infarction I48.91 Unspecified atrial fibrillation J45.20 Mild intermittent asthma, uncomplicated Office Visit 09/29/2016 9:27a [facility] I21.4 Non-St elevation Assoc,carli Connolly M.D. ([facility]) Hospitalists myocardial infarction I48.91 Unspecified atrial fibrillation J45.20 Mild intermittent asthma, uncomplicated Office Visit 09/29/2016 1:06p [facility] Zack Pina I20.9 Angina pectorisTito M.D. unspecified I48.91 Unspecified atrial fibrillation Office Visit 09/28/2016 9:26a [facility] Cap[facility] I21.4 Non-St elevation Assoccarli M.D. ([facility]) Hospitalists myocardial infarction I48.91 Unspecified atrial fibrillation J45.20 Mild intermittent asthma, uncomplicated G47.33 Obstructive sleep apnea (adult) (pediatric) Office Visit 09/27/2016 [facility] Daniela Lopez, R01.1 Cardiac murmur, 9:26a carli Murray M.D. unspecified Hospitalists I48.91 Unspecified atrial fibrillation J45.20 Mild intermittent asthma, uncomplicated Office Visit 09/27/2016 1:05p [facility] Zack Pina I21.4 Non-St elevation Jeane Francis ([facility]) myocardial infarction Office Visit 09/26/2016 9:26a [facility] R07.1 Chest pain on Assoc,carli Connolly M.D. breathing Hospitalists I48.91 Unspecified atrial fibrillation J45.20 Mild intermittent asthma, uncomplicated Office Visit 09/25/2016 9:25a [facility] Ramona Ashley, R07.1 Chest pain on Assoc,pc DO breathing Hospitalists J45.20 Mild intermittent asthma, uncomplicated I48.91 Unspecified atrial fibrillation G47.33 Obstructive sleep apnea (adult) (pediatric) Office Visit 09/25/2016 8:35a [facility] Anastasiya TKandi R07.9 Chest pain, Of [facility] MD Annamaria, unspecified FACC, FSCAI Office Visit 09/25/2016 8:34a [facility] Amber Kaminski, Of Karina Ching Office Visit 07/04/2016 2:45p [place]/Laurie Duggan R51 Headache Neurologic Serv Jeane Hurst Of [facility] Office Visit 06/11/2016 2:00p [place] [facility] Jaziel Duggan R51 Headache Services Of Karina Hurst M.D. G89.29 Other chronic pain Office Visit 06/10/2016 1:30p Pulmonology And [facility] R06.02 Shortness of Sleep Services Of MD Brittani breath [facility] J45.909 Unspecified asthma, uncomplicated G47.9 Sleep disorder, unspecified E66.01 Morbid (severe) obesity due to excess calories Office Visit 04/16/2016 [facility] Avinash Romero, D47.1 Chronic 3:40p Center Of Karina Ching myeloproliferative AT [facility] R53.83 Other fatigue G89.4 Chronic pain syndrome D63.1 Anemia in chronic kidney disease N18.9 Chronic kidney disease, unspecified Office Visit 04/02/2016 [place] Donna Romero D47.1 Chronic 1:00p Center Of Karina Ching myeloproliferative AT [facility] G89.4 Chronic pain syndrome R53.83 Other fatigue D64.9 Anemia, unspecified Office Visit 02/06/2016 [place] Donna Romero D47.1 Chronic 3:00p Center Of Karina Ching myeloproliferative AT [facility] G89.4 Chronic pain syndrome Office Visit 04/06/2015 [facility]/Laurie Duggan 333.94 Restless Leg 10:00a Neurologic Serv Of Jeane Hurst Syndrome Counter Maker 333.1 Tremor Essential & Other Forms 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 Nerve 333.94 Restless Leg Syndrome 333.1 Tremor Essential & Other Forms Office Visit 02/18/2011 10:45a [facility] [place] 278.00 Obesity Unspec C.M.A. AT Jeane Crane [place] 380.4 Impacted Cerumen 389.10 Hearing Loss Sensorineural Unspec 787.20 Dysphagia, Unspecified Office Visit 04/28/2009 [facility] 567.9 Peritonitis 12:30a Asscarli dickinson M.D. Unspecified Hospitalists 780.97 Altered Mental Status 278.00 Obesity Unspec 277.9 Metabolic Disorder Unspec Office Visit 04/27/2009 [facility] 567.9 Peritonitis 1:00a carli Murray M.D. Unspecified Hospitalists 780.97 Altered Mental Status 278.00 Obesity Unspec 244.9 Hypothyroidism Other Unspec Office Visit 04/26/2009 [facility] 567.9 Peritonitis 1:00a carli Murray M.D. Unspecified Hospitalists 780.97 Altered Mental Status 278.00 Obesity Unspec 244.9 Hypothyroidism Other Unspec Office 09/30/2007 Neurosurgery Aureliano Crespo 721.3 Spondylosis Lumbar W/O Visit 11:00a Services Of Karina Gayle M.D. Myelopathy AT [place] Office 06/03/2007 Neurosurgery Aureliano Ramires1.3 Spondylosis Lumbar W/O Visit 4:00p Services Of Karina Gayle M.D. Myelopathy AT [place] Office 03/04/2007 Neurosurgery Aureliano Ramires1.3 Spondylosis Lumbar W/O Visit 3:30p Services Of Karina Gayle M.D. Myelopathy AT [place] Office 11/26/2006 Neurosurgery Aureliano Crespo 721.3 Spondylosis Lumbar W/O Visit 3:30p Services Of Karina Gayle M.D. Myelopathy AT [place] Office 08/27/2006 Neurosurgery Aureliano Crespo 724.02 Spinal Stenosis, Visit 3:00p Services Of Karina Gayle M.D. Lumbar Region, W/O AT [place] Neurogenic Claudication Office 05/07/2005 [facility] Zack Pina 794.31 Electrocardiogram Visit 1:00p Jeane Francis (ECG) (EKG) Abnormal 401.1 Hypertension Benign Plan of Treatment Future Appointment(s):12/03/2018 2:00 pm - Agnes Boss NP at [facility] Tmzhtqjaogiqznlk11/28/2020 4:10 pm - Kris Merrill MD at [facility] Dermatology AT Xvqhqtfn86/21/2019 3:00 pm - Avinash Romero M.D. at [facility] AT Xmbdsthj94/21/2019 11:30 am - Sharon Peter MD at [facility]05/06/2019 3:45 pm - Jaziel Hurst M.D. at [place] [facility]
--- OUTSIDE RECORDS SUMMARY | 2018-11-20 17:35 | XMS REPORT | Continuity of Care Document ---
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 Onset: 2013 Gouty arthropathy Manas Villeda M.D. Onset: 2013 Restless legs Manas Villeda M.D. Onset: 2013 Essential hypertension Manas Villeda M.D. Onset: 2013 Asthma without status asthmaticus Manas Villeda M.D. Onset: 2013 Degenerative joint disease involving multiple Manas Villeda M.D. Onset: joints Mixed hyperlipidemia Manas Villeda M.D. Onset: 2013 Gastroesophageal reflux disease Manas Villeda M.D. Onset: 2013 Chronic pain syndrome Manas Villeda M.D. Onset: 03/16/2018 Family History Date Family Member(s) Observation Comments Father Coronary Artery Disease (CAD) Social History Type Date Description Comments Sex Unknown Tobacco Use Start: Unknown Patient has never smoked Allergies, Adverse Reactions, Alerts Active Allergies Reaction Severity Comments Date Asa gastric ulcer 2013 Gabitril rash 2013 Naprosyn rash 2013 Cytotec rash 2013 Lipitor leg weakness 2013 Zanaflex hallucinations 2013 Contrast Dye visual chnages 2013 Impramine dianrrhea itch headaches 2013 Medications Active Medications SIG Qnty Indications Ordering Date Provider Hydrocodone-Acetaminop 2 tablets by 180tabs Veronica 11/13/2018 hen mouth every 8 [place], [employer] 10-325mg Tablets hours prn pain Miralax 17 grams every 24units K59.03 Veronica 11/13/2018 3350NF Packet day with large JOSE MARIA GlezP glass water Plavix 1 by mouth every 90tabs Manas Villeda, 03/16/2018 75mg Tablets day M.D. Levothyroxine Sodium Take 1 Tablet 90tabs Veronica 08/29/2017 Every Day JOSE MARIA GlezP 175mcg Tablets Ferrous Sulfate 1 by mouth every 90tabs Manas Villeda, 01/29/2017 325(65Fe) day M.D. mg Tablets Venlafaxine HCL ER take 1 capsule by 90caps R23.2 Veronica 04/07/2015 37.5mg mouth every night JOSE MARIA GlezP Caps ER 24HR at bedtime Levocetirizine Take 1 Tablet 90tabs Veronica 07/12/2014 Dihydrochloride Every Day [place], [employer] 5mg Tablets Omeprazole 1 po bid 180caps K21.9 Veronica 05/02/[address] VY [address]lez [address] Ezetimibe 1 by mouth every Unknown 10mg Tablets day Melatonin 1 cap by mouth Unknown 10mg Capsules every day at bedtime Amlodipine Besylate Take 2 Tablets 180tabs Manas Villeda, 5mg Every Day M.D. Tablets Amitriptyline HCL Take 1 Tablet AT 90tabs Veronica 10mg Bedtime VY Glez Tablets Pramipexole Take 2 Tablets 180tabs Veronica Dihydrochloride Every Night AT AmarisVY tabor 1mg Bedtime Tablets Breo Ellipta 1 inhalation once Unknown per day, rinse, 100-25mcg/Inh Aerosol samples Amiodarone HCL 1 by mouth every Unknown 100mg day Tablets Metoprolol Tartrate take one tablet Unknown 25mg by mouth twice a Tablets day Torsemide take 1 pill a day Unknown 10mg Tablets for fluid Vitamin B12 100mcg qd Unknown Ventolin HFA 2 puffs every 6 3units Veronica 108(90Base) hours as needed VY Glez mcg/Act Aerosol Albuterol Sulfate use four times a 180ml Veronica day as needed VY Glze (2.5mg/3ML) 0.083% Nebulizer Colace 2 by mouth twice 540caps Veronica 100mg Capsules a day for bowels VY Glez Multivitamin With 1 po qd 100tabs Unknown Folic Acid supplement Tablets Senna S 1 by mouth twice 180tabs Veronica 8.6-50mg Tablets a day VY Glez Calcium/Mag 1 po qd 30units Unknown Chewtabs Singulair take 1 tablet 90tabs Veronica 10mg Tablets every day VY Glez Fluticasone Propionate Use 2 Sprays In 48units Veronica Each Nostril AT AmarisVY tabor 50mcg/Act Suspension Bedtime Aspirin 1 by mouth every Unknown 81mg Tablets DR day Vitamin D 2 by mouth every Unknown 1000Unit day Tablets Shark Cartilage 2 po tid Unknown 500mg Capsules History Medications Nystatin 5 milliliters 250ml J02.9 Veronica 10/23/2018 - [id number]/ML swish and spit VY Glez 11/13/2018 Suspension orally four times a day Fluconazole 1 po daily x 2 2tabs J02.9 [place] 10/23/2018 - 150mg days if liquid [place], [facility] 11/13/2018 Tablets nystatin fails to resolve symptoms in 3-4 days of use Hold Amiodorone While Using Diflucan Zithromax 2 by mouth every 6tabs J02.9 [place] 10/23/2018 - 250mg Tablets day today , then 1 VY Glez 11/13/2018 by mouth every day times 4 Vitamin B-12 1 by mouth every Delfina Alissa 09/08/2018 - 250mcg day RODRIGO Collazo 09/08/2018 Tablets Primidone Take 3 Tablets 270tabs Manas Arzate 05/19/2018 - 50mg Tablets Every Night AT Jeane Villeda 09/08/2018 Bedtime Tessalon Perllito one by mouth three 45caps Brian Vergara 04/20/2018 - 100mg times a day as MD Taylor 09/08/2018 Capsules needed cough Prednisone 4 by mouth x 2 19tabs [place] 01/16/2018 - 10mg Tablets days, then 3 by VY Glez 02/04/2018 mouth x 2 days, then 2 by mouth x 2 days,then 1 by mouth x 1 day Ranitidine HCL take one tablet by 90ta Manas Arzate 12/16/2017 - 150mg mouth once daily Jeane Villeda 09/18/2018 Tablets in the evening Nitrofurantoin 1 by mouth two 14caps Manas Arzate 09/22/2017 - Monohyd Macro times a day Jeane Villeda 09/29/2017 100mg Capsules Amoxicillin 1 tab twice a day 20tabs Veronica 08/29/2017 - 875mg x 10 days VY Glez 09/24/2017 Tablets Amoxicillin 1 tab twice a day 14tabs Manas Arzate 08/20/2017 - 875mg x 7 days Jeane Villeda 08/27/2017 Tablets Flovent HFA 1 puff daily to 12gm R13.10 [place] 05/07/2017 - 110mcg/Act tongue, swallow; VY Glez 09/18/2018 Aerosol samples Breo Ellipta 1 inhalation once 60units [place] 02/28/2017 - per day, rinse [facility] 04/20/2018 100-25mcg/Inh Aerosol after use Amiodarone HCL 1 by mouth qd 360tabs [place] 01/09/2017 - 200mg [facility] 09/08/2018 Tablets Amiodarone HCL 2 by mouth bid 120tabs [place] 01/09/2017 - 200mg [facility] 04/10/2017 Tablets Zostavax inject subq x 1 1units [place] 12/24/2016 - [facility] 08/20/2017 45782Ksq/0.65ML Suspension Rec Amiodarone HCL 1 by mouth twice a 180tabs [place] 12/24/2016 - 400mg day [facility] 01/09/2017 Tablets Nitroglycerin 1 sl as needed 30tabs [place] 10/28/2016 - 0.4mg pain, may repeat [facility] 09/08/2018 Tablets Sub q5 min, if no relief after 2, call 911 Atrovent HFA 2 puffs qid prn 12.900gm [place] 10/22/2016 - 17mcg/Act shortness of [facility] 11/27/2016 Aerosol breath, asthma symptoms Multaq take one tablet by 180tabs [place] 10/03/2016 - 400mg Tablets mouth twice a day [facility] 12/24/2016 Lisinopril 1 by mouth every Unknown 10/03/2016 - 20mg Tablets day 11/27/2016 Metoprolol Tartrate 1 by mouth twice a 180tabs [place] 10/03/2016 - day [facility] 02/05/2018 25mg Tablets Rosuvastatin Calcium 1 by mouth every Unknown 10/03/2016 - day 11/28/2016 20mg Tablets Aspirin 1 by mouth every Unknown 10/03/2016 - 81mg Tablets DR day 11/08/2016 Hydromorphone HCL ER 1 po daily by 30units G89.4 [place] 09/16/2016 - mouth, nte 1 pill [facility] 10/22/2016 8mg T24a daily Dilaudid 1 by mouth twice 30tabs [place] 08/14/2016 - 2mg Tablets daily as needed [facility] 10/22/2016 for severe pain caution: sedation, alcohol Chair Lift due to significant G89.4 [place] 08/14/2016 - chronic pain and [facility] 09/15/2016 immobility, a chair lift is required for adl's and self cares Cyclobenzaprine HCL one to two tablet 60tabs G89.4 [place] 08/14/2016 - 5mg every 12 hours as [facility] 10/22/2016 Tablets needed pain Venlafaxine HCL take 3 by mouth 90tabs G89.4 [place] 08/14/2016 - 37.5mg daily [facility] 11/27/2016 Tablets Amoxicillin 1 tab twice a day 14tabs J01.90 [place] 06/07/2016 - 875mg x 7 days [facility] 08/13/2016 Tablets Prednisone 12 by mouth today, 78tabs J01.90 [place] 06/07/2016 - 5mg Tablets decrease by 1 [facility] 08/13/2016 every day until gone Furosemide 2 po qd 30tabs G47.62 [place] 04/10/2016 - 40mg Tablets [facility] 04/10/2017 Portable Oxygen small portable R09.02 [place] 04/10/2016 - tank for travel [facility] 11/27/2016 away from home Simply Saline 2 sprays each 1Bottle [place] 04/10/2016 - 0.9% nostril twice [facility] 11/27/2016 Aerosol daily Pulse Oximeter for use with R09.02 [place] 04/10/2016 - oxygen therapy [facility] 11/27/2016 desired range is >90% Clonazepam 1/2 to 1 tab by 30tabs G47.62 [place] 04/10/2016 - 0.5mg mouth qhs prn [facility] 09/16/2016 Tablets insomnia --caution sedation with norco Hydrocodone-Acetamino 1-2 every 6 hours 240tabs G89.4 [place] 02/07/2016 - phen as needed pain [facility], 09/08/2018 10-325mg Tablets Afnp-C Hydrocodone-Acetamino 1-2 every 6 hours 240tabs G89.4 [place] 2015 - phen as needed pain nte [facility], [facility] 02/07/2016 7.5-325mg Tablets 8 tabs per day Hydrocodone G89.4 [place] 02/07/2016 - Bitartrate/Chlorpheni [facility], [facility] 02/07/2016 ramine Maleate/Pse 60-4-5mg/5ML Solution Propranolol HCL take one tablet by 60tabs Manas Kandi 01/05/2016 - 40mg mouth twice a day Jeane Villeda 01/05/2016 Tablets [facility]CL [facility] - 40mg Twice Daily Jeane Villeda 09/16/[address] one patch 10units G89.4 [place] 08/11/2015 - 100mcg/HR every 3 days [facility] 01/03/2016 Patches 72HR Hydromorphone HCL [place] 06/30/2015 - 2mg [facility] 06/30/2015 Tablets Dilaudid 1 po twice daily 30tabs [place] 06/30/2015 - 2mg Tablets as needed for [facility], [facility] 08/11/2015 severe pain caution: sedation, alcohol Breo Ellipta 1 puff daily 3units [place] 02/27/2015 - [facility], [facility] 01/03/2016 100-25mcg/Inh Aerosol Hydrocodone-Acetamino 1 by mouth every 6 120tabs G89.4 [place] 2014 - phen hours for pain [facility], [facility] 02/07/2016 10-325mg Tablets Hydrocodone 90tabs [place] 01/09/2015 - Bitartrate/Acetaminop [facility], [facility] 01/11/2015 hen 10-300mg Tablets Venlafaxine HCL ER 1 by mouth every 30caps 782.62 [place] 10/27/2014 - day [facility] 02/27/2015 37.5mg Caps ER 24HR Symbicort 2 puffs once a day sample Manas Arzate 10/10/2014 - Jeane Villeda 02/27/2015 160-4.5mcg/Act Aerosol Biaxin take one tablet by 20tabs 465.9 [place] 10/04/2014 - 500mg Tablets mouth twice a day [facility] 01/09/2015 x 10 days finish all medication Benzonatate 1 three times a 30caps 786.2 [place] 10/04/2014 - 200mg day as needed [facility] 01/09/2015 Capsules cough Nebulizer Set Up And dispense one 1units 786.2 [place] 10/04/2014 - Tubing machine for [facility] 01/03/2016 nebulizer Ipratropium inhale 1 three 180ml R05 [place] 10/04/2014 - [place]/Albuterol times a day x 2 [facility] 09/16/2016 Sulfate weeks 0.5-2.5(3)mg/3ML Solution Nabumetone Take 1 Tablet 180tabs [place] 09/08/2014 - 500mg Twice Daily [facility] 08/14/2016 Tablets Cyclobenzaprine HCL one to two tablet 180tabs M79.1 [place] 09/05/2014 - 5mg every night at [facility] 01/03/2016 Tablets bedtime as needed Amoxicillin 1 tab by mouth 21tabs 465.9 [place] 09/05/2014 - 500mg three times a day [facility] 10/04/2014 Tablets x 7 days samples Oxycodone-Acetaminoph 1-2 by mouth every 200tabs [place] 08/08/2014 - en 4 hours as needed [facility] 01/09/2015 10-325mg Tablets Prednisone take 2 by mouth 30tabs 724.5 [place] 06/13/2014 - 5mg Tablets twice a day x 3 [facility] 01/09/2015 days, then take 1 by mouth three times a day x 3 days, then take 1 by mouth twice a day x 3 d Venlafaxine HCL ER 1 by mouth daily 30tabs 782.62 Karlee Blevins, 2013 - [facility] 10/27/2014 37.5mg Tablets ER 24HR Venlafaxine HCL 1/2 tab by mouth 90tabs 782.62 [place] 05/02/2014 - 50mg daily Samples [facility], [facility] 05/02/2014 Tablets Ondansetron HCL 1 by mouth every 8 50tabs R11.0 [place] 05/02/2014 - 8mg hours as needed [facility], [facility] 11/27/2016 Tablets nausea Ondansetron HCL 1 every 8 hours 30tabs 787.02 [place] 05/02/2014 - 8mg prn nausea [facility], [facility] 05/02/2014 Tablets Oxycodone-Acetaminoph 1-2 po q4hrs prn 50tabs [place] 05/02/2014 - en [facility], [facility] 07/04/2014 10-325mg Tablets Oxycodone/Acetaminoph 1-2 po q4hrs prn 50tabs [facility], 05/02/2014 - en [place], 07/04/2014 10-325mg Tablets ADOLESCENT COORDINATOR-F Oxycodone/Acetaminoph 1-2 po q4hrs prn 50tabs [facility], 05/02/2014 - en Veronica, 07/04/2014 10-325mg Tablets ADOLESCENT COORDINATOR-F Oxycodone/Acetaminoph 1-2 po q4hrs prn 50tabs [facility], 05/02/2014 - en [place], 08/08/2014 10-325mg Tablets ADOLESCENT COORDINATOR-F Nabumetone 1 po bid 60tabs [place] 05/02/2014 - 500mg [facility], [facility] 09/05/2014 Tablets Famotidine 1 by mouth twice a 60tabs 530.81 Manas A. 04/14/2014 - 40mg Tablets day Jeane Villeda 05/02/2014 Nizatidine take one capsule 180caps 530.81 [place] A. 04/05/2014 - 150mg by mouth twice a Jeane Villeda 04/14/2014 Capsules day Clonidine HCL take one tablet by 90tabs [place] AKandi 02/28/2014 - 0.1mg mouth at bedtime Jeane Villeda 01/09/2015 Tablets Sucralfate 1 by mouth three 270tabs 782.62 Manas Arzate 02/14/2014 - 1gm Tablets times a day Jeane Villeda 05/02/2014 Vitamin B-12 1 po qd Manas Arzate 01/06/2014 - 1000mcg Jeane Villeda 01/06/2014 Tablets Sub Labs 24-hr urinary 782.62 Manas Arzate 01/06/2014 - 5-hiaa Urine Jeane Villeda 02/14/2014 serotonin Serum chromogranin A, b, C Acetaminophen take two tablets Unknown - 325mg by mouth three 09/08/2018 Tablets times a day as needed maximum daily dose=6 tablets Amoxicillin 1 by mouth three Unknown - 250mg times a day 04/10/2017 Capsules Caltrate 600+D 1 by mouth every Unknown - day 09/08/2018 [id number] Tablets Metoprolol Succinate 1 by mouth every 90tabs Manas Arzate - ER day Jeane Villeda 07/09/2017 25mg Tablets ER 24HR Torsemide take one tablet by Unknown - 20mg Tablets mouth daily as 07/09/2017 needed Primidone take 3 tablets 90tabs Manas Arzate - 50mg Tablets every night at Jeane Villeda 02/04/2018 bedtime Torsemide take 1 pills a day Unknown - 10mg Tablets 07/31/2018 Vitamin B Complex W/ 1 by mouth every Unknown - B12 day 09/08/2018 Tablets Nasacort Allergy 24HR spray 2 sprays in Unknown - each nostril bid 09/08/2018 55mcg/Act Aerosol Levothyroxine Sodium Take 1 Tablet 90tabs Veronica - Every Day VY Glez 08/29/2017 137mcg Tablets Ranexa 1 po bid Unknown - 500mg Tablets ER 03/16/2018 12HR Plavix 1 by mouth every Unknown - 75mg Tablets day 02/04/2018 Lisinopril 1 by mouth every Unknown - 20mg Tablets day 07/31/2018 Metoprolol Succinate 1 by mouth bid Unknown - ER 07/31/2018 50mg Tablets ER 24HR Brilinta 1 by mouth twice a Unknown - 90mg Tablets day 03/16/2018 Fluticasone 1 puff daily Unknown - Propionate/Salmeterol 03/16/2018 500-50 Aerosol Repatha 140 mg sc q2wk Unknown - 140mg/ml Soln 09/08/2018 Prefill Syringe Isosorbide Take 4 Tablets 180tabs Manas A. - Mononitrate ER Every Day Jeane Villeda 07/31/2018 60mg Tablets ER 24HR Torsemide 1 by mouth every Unknown - 20mg Tablets day 09/08/2018 Lisinopril 1 by mouth every Unknown - 10mg Tablets day 09/08/2018 Metoprolol Succinate 1 po bid Unknown - ER 09/08/2018 25mg Tablets ER 24HR Isosorbide 2 po qd Unknown - Mononitrate ER 09/08/2018 120mg Tablets ER 24HR Colchicine 2 po qd x7 days Unknown - 0.6mg then reduce to 1 09/08/2018 Tablets po qd Oxycodone-Acetaminoph 1-2 by mouth every 240tabs Delfina Alissa - en 6 hours as needed RODRIGO Collazo 11/13/2018 5-325mg Tablets Oxycodone/Acetaminoph 1-2 po q4hrs prn 50tabs Unknown - en 05/02/2014 10-325mg Tablets Omeprazole 1 po bid 180caps 530.81 Manas A. - 40mg Jeane Villeda 04/05/[address] Cole 1 po bid 60tabs Manas A. - 500mg Jeane Villeda 04/05/2014 Tablets Advair Diskus inhale 1 dose by 60units Unknown - mouth twice a day 10/10/2014 500-50mcg/Dose rinse mouth Aerosol after use Allopurinol 1 by mouth every 90tabs Manas A. - 300mg day Jeane Villeda 01/09/2015 Tablets B Complex Unknown - Tablets 02/27/2015 Vitamin B-12 1 po qd 30tabs Unknown - 500mcg 01/06/2014 Tablets Iron Supplement 1 po qd 100tabs Unknown - 02/27/2015 Tablets Vitamin D3 1 po qd Unknown - 2000Unit 02/27/2015 Capsules Shark Cartilage 2 po bid Unknown - 11/27/2016 Capsules MS Contin 1 po q hs prn Unknown - Tablets ER 06/30/2015 Advair Diskus inhale 1-2 pufsf Unknown - by mouth two times 02/04/2018 500-50mcg/Dose daily or use Breo Aerosol instead but Not both Torsemide Take 2 Tablets 90tabs Veronica - 20mg Tablets Every Other Day, VY Glez 11/27/2016 Alternating With Furosemide Klor-Con M20 Take 1 Tablet 90tabs Brian Crespo - 20Meq Every Day Jeane Young 11/27/2016 Tablets ER Furosemide Take 1 Tablet 45tabs Veronica - 80mg Tablets Every Other Day VY Glez 09/16/2016 Alternating With Torsemide Vitamin D 2 by mouth every Unknown - (Cholecalciferol) day 11/27/2016 1000Unit Capsules Vitamin B Complex 1 by mouth every Unknown - day 11/27/2016 Tablets Ranitidine HCL take 1 capsule by Unknown - 150mg mouth twice a day 11/27/2016 Capsules Isosorbide 1 by mouth bid 90tabs Manas A. - Mononitrate ER Jeane Villeda 08/29/2017 30mg Tablets ER 24HR Sucralfate 1 prior to eating Unknown - 1gm Tablets three times daily 07/25/2017 Ferrous Sulfate 1 by mouth every 90tabs Veronica - day VY Glez 08/20/2017 325(65Fe) mg Tablets Amitriptyline HCL 1 by mouth every Unknown - 1mg day 11/28/2016 Tablets Amlodipine Besylate 1 by mouth every Unknown - 5mg day 04/10/2017 Tablets Proventil HFA use 2 inhalations Unknown - by mouth 2 times 09/24/2017 108(90Base) mcg/Act daily as needed Aerosol for cough/wheeze Immunizations CPT Code Status Date Vaccine Lot # [id number] Given 05/15/2018 High-Dose, Influenza Virus Vacccine-fluzone 65 and [id number] older 19050 Given 04/10/2017 High-Dose, Influenza Virus Vacccine-fluzone 65 and [id number] older 79938 Given 12/24/2016 Tdap Tetanus, W Pertussis [id number] 66677 Given 12/24/2016 Pneumococcal Conjugate Vacc-13 [id number] Given 04/10/2016 Influenza Vac, Quadrivalent, Slit Virus, Im [id number] 04737 Given 05/08/2015 Pneumococcal Immunization [id number] 33774 Given 05/08/2015 Influenza Vac, Quadrivalent, Slit Virus, Im [id number] Vital Signs Date Vital Result Comment 11/13/2018 10:40am BP Systolic 122 mmHg BP Diastolic 80 mmHg Heart Rate 68 /min Body Temperature 97.7 F Respiratory Rate 20 /min Weight 240.00 lb per pt 10/23/2018 12:50pm BP Systolic 122 mmHg BP Diastolic 70 mmHg Heart Rate 72 /min Body Temperature 96.9 F Respiratory Rate 17 /min Weight 238.00 lb stated 09/18/2018 3:20pm BP Systolic 120 mmHg BP Diastolic 82 mmHg Heart Rate 76 /min Body Temperature 97.9 F Respiratory Rate 18 /min O2 % BldC Oximetry 94 % 07/16/2018 11:47am BP Systolic 146 mmHg BP Diastolic 80 mmHg Heart Rate 68 /min Body Temperature 98.3 F Respiratory Rate 18 /min Height 61 inches 5'1" 05/20/2018 11:36am BP Systolic 134 mmHg BP Diastolic 82 mmHg Heart Rate 60 /min Body Temperature 97.9 F Respiratory Rate 16 /min Height 61 inches 5'1" 05/15/2018 3:32pm BP Systolic 132 mmHg BP Diastolic 7497 mmHg Heart Rate 60 /min Body Temperature 97.5 F Respiratory Rate 18 /min O2 % BldC Oximetry 91 % Height 61 inches 5'1" 04/20/2018 4:57pm BP Systolic 130 mmHg BP Diastolic 56 mmHg Heart Rate 56 /min Body Temperature 97.7 F Respiratory Rate 18 /min O2 % BldC Oximetry 93 % 2 liters O2 Height 61 inches 5'1" 03/16/2018 2:43pm BP Systolic 118 mmHg BP Diastolic 66 mmHg Heart Rate 68 /min Body Temperature 98.1 F Respiratory Rate 17 /min Height 61 inches 5'1" Weight 244.00 lb BMI (Body Mass Index) 46.1 kg/m2 02/05/2018 11:09am BP Systolic 120 mmHg BP Diastolic 60 mmHg Heart Rate 66 /min Body Temperature 97.9 F Height 61 inches 5'1" 01/16/2018 11:13am BP Systolic 130 mmHg BP Diastolic 80 mmHg Heart Rate 60 /min Body Temperature 96.7 F Respiratory Rate 16 /min Height 61 inches 5'1" 09/24/2017 3:56pm BP Systolic 146 mmHg BP Diastolic 72 mmHg Heart Rate 72 /min Body Temperature 97.9 F Respiratory Rate 18 /min Height 61 inches 5'1" Weight 263.00 lb BMI (Body Mass Index) 49.7 kg/m2 08/29/2017 10:13am BP Systolic 128 mmHg BP Diastolic 70 mmHg Heart Rate 80 /min Body Temperature 97.9 F Respiratory Rate 18 /min 06/10/2017 3:35pm Heart Rate 66 /min Body Temperature 98.8 F Respiratory Rate 16 /min Weight 263.00 lb 05/07/2017 4:13pm BP Systolic 138 mmHg BP Diastolic 52 mmHg Heart Rate 66 /min Body Temperature 97.7 F Weight 274.12 lb 04/10/2017 2:14pm BP Systolic 136 mmHg BP Diastolic 80 mmHg Heart Rate 76 /min Body Temperature 97.6 F Respiratory Rate 16 /min 02/28/2017 2:02pm BP Systolic 134 mmHg BP Diastolic 80 mmHg Heart Rate 68 /min Body Temperature 98.1 F Respiratory Rate 18 /min 12/24/2016 2:04pm BP Systolic 134 mmHg BP Diastolic 76 mmHg Heart Rate 76 /min Body Temperature 97.9 F Respiratory Rate 18 /min 11/28/2016 3:55pm BP Systolic 142 mmHg BP Diastolic 80 mmHg Heart Rate 79 /min Body Temperature 98.6 F Respiratory Rate 16 /min O2 % BldC Oximetry 9532 % 11/08/2016 1:07pm BP Systolic 132 mmHg BP Diastolic 80 mmHg Heart Rate 68 /min Body Temperature 98.1 F Respiratory Rate 16 /min 10/22/2016 4:22pm BP Systolic 120 mmHg BP Diastolic 70 mmHg Heart Rate 68 /min Body Temperature 98.0 F Respiratory Rate 18 /min O2 % BldC Oximetry 983 % 3L 10/08/2016 3:18pm BP Systolic 142 mmHg BP Diastolic 80 mmHg Heart Rate 100 /min Body Temperature 98.8 F Respiratory Rate 16 /min 09/16/2016 3:05pm BP Systolic 126 mmHg BP Diastolic 70 mmHg Heart Rate 96 /min Body Temperature 97.9 F Height 61 inches 5'1" 08/14/2016 3:31pm BP Systolic 160 mmHg BP Diastolic 90 mmHg Heart Rate 104 /min Body Temperature 97.3 F Height 61 inches 5'1" 06/07/2016 11:02am BP Systolic 138 mmHg BP Diastolic 88 mmHg Heart Rate 79 /min Body Temperature 97.9 F Respiratory Rate 20 /min O2 % BldC Oximetry 9093 % Height 61 inches 5'1" 04/26/2016 3:14pm BP Systolic 124 mmHg BP Diastolic 80 mmHg Heart Rate 68 /min Body Temperature 98.2 F Respiratory Rate 20 /min O2 % BldC Oximetry 94 % Height 61 inches 5'1" Weight 261.00 lb BMI (Body Mass Index) 49.3 kg/m2 04/10/2016 2:15pm BP Systolic 126 mmHg BP Diastolic 80 mmHg Heart Rate 72 /min Body Temperature 99.1 F Height 61 inches 5'1" 03/27/2016 3:22pm BP Systolic 120 mmHg BP Diastolic 86 mmHg Heart Rate 68 /min Body Temperature 97.9 F Respiratory Rate 20 /min O2 % BldC Oximetry 97 % Height 61 inches 5'1" 02/07/2016 8:09am BP Systolic 120 mmHg BP Diastolic 80 mmHg Heart Rate 66 /min Body Temperature 97.3 F Respiratory Rate 16 /min O2 % BldC Oximetry 95 % Height 61 inches 5'1" 01/03/2016 3:30pm BP Systolic 130 mmHg BP Diastolic 80 mmHg Heart Rate 80 /min Body Temperature 98.0 F Respiratory Rate 16 /min Height 61 inches 5'1" 09/06/2015 4:43pm BP Systolic 136 mmHg BP Diastolic 80 mmHg Heart Rate 80 /min Body Temperature 97.9 F Respiratory Rate 18 /min Height 61 inches 5'1" 08/11/2015 1:03pm BP Systolic 140 mmHg BP Diastolic 80 mmHg Heart Rate 80 /min Body Temperature 97.6 F Respiratory Rate 20 /min Height 61 inches 5'1" Weight 248.00 lb BMI (Body Mass Index) 46.9 kg/m2 06/30/2015 2:08pm BP Systolic 140 mmHg BP Diastolic 80 mmHg Heart Rate 68 /min Body Temperature 98.1 F Respiratory Rate 18 /min O2 % BldC Oximetry 96 % SOB Height 61 inches 5'1" Weight 230.00 lb BMI (Body Mass Index) 43.5 kg/m2 05/08/2015 2:40pm BP Systolic 140 mmHg BP Diastolic 70 mmHg Heart Rate 84 /min Body Temperature 98.2 F Respiratory Rate 16 /min Height 61 inches 5'1" 02/27/2015 2:49pm BP Systolic 150 mmHg BP Diastolic 70 mmHg Heart Rate 84 /min Respiratory Rate 18 /min Height 61 inches 5'1" 01/09/2015 10:39am BP Systolic 136 mmHg BP Diastolic 80 mmHg Heart Rate 84 /min Body Temperature 98.2 F Respiratory Rate 16 /min Height 61 inches 5'1" Weight 249.00 lb BMI (Body Mass Index) 47.0 kg/m2 11/29/2014 11:41am BP Systolic 160 mmHg BP Diastolic 70 mmHg Heart Rate 84 /min Body Temperature 98.7 F Respiratory Rate 18 /min Height 61 inches 5'1" 10/10/2014 11:35am BP Systolic 164 mmHg BP Diastolic 88 mmHg Heart Rate 88 /min Body Temperature 97.6 F Respiratory Rate 20 /min O2 % BldC Oximetry 98 % 10/04/2014 2:17pm BP Systolic 154 mmHg BP Diastolic 88 mmHg Heart Rate 88 /min Body Temperature 97.2 F Respiratory Rate 24 /min O2 % BldC Oximetry 97 % 09/05/2014 3:47pm BP Systolic 150 mmHg BP Diastolic 84 mmHg Heart Rate 90 /min Body Temperature 97.1 F Respiratory Rate 18 /min 08/08/2014 3:00pm BP Systolic 128 mmHg BP Diastolic 76 mmHg Heart Rate 76 /min Body Temperature 97.8 F Respiratory Rate 17 /min 07/04/2014 1:19pm BP Systolic 120 mmHg BP Diastolic 64 mmHg Heart Rate 72 /min Body Temperature 97.6 F Respiratory Rate 18 /min Weight 253.00 lb 06/13/2014 4:31pm BP Systolic 140 mmHg BP Diastolic 88 mmHg Heart Rate 74 /min Body Temperature 97.9 F Respiratory Rate 18 /min 06/06/2014 3:09pm BP Systolic 144 mmHg BP Diastolic 76 mmHg Heart Rate 80 /min Body Temperature 98.2 F Respiratory Rate 18 /min Height 61 inches 5'1" 05/02/2014 1:23pm BP Systolic 162 mmHg left lower arm BP Diastolic 80 mmHg left lower arm Heart Rate 84 /min Body Temperature 96.9 F Respiratory Rate 16 /min Height 61 inches 5'1" 02/14/2014 2:51pm BP Systolic 130 mmHg BP Diastolic 72 mmHg Heart Rate 84 /min Body Temperature 96.9 F Respiratory Rate 20 /min Height 61 inches 5'1" Weight 257.00 lb BMI (Body Mass Index) 48.6 kg/m2 01/06/2014 7:27pm BP Systolic 120 mmHg BP Diastolic 70 mmHg Heart Rate 84 /min Body Temperature 97.6 F Respiratory Rate 20 /min Height 61 inches 5'1" 2013 8:30am BP Systolic 112 mmHg BP Diastolic 62 mmHg BP Systolic Recheck 128 mmHg BP Diastolic Recheck 72 mmHg Heart Rate 84 /min Body Temperature 98.1 F Respiratory Rate 18 /min Height 61 inches 5'1" Weight 244.31 lb BMI (Body Mass Index) 46.2 kg/m2 Results Test Date Facility Test Result H/L Range Note Laboratory test 11/13/2018 [facility] (a) TSH <pending> 0.5-5.0 finding Ferritin <pending> 6-115 B12 <pending> [id number] Laboratory test finding 11/13/2018 [facility] PTH,Intact <pending> [address] [place] [id number] (872)- - Ablumin <pending> Phosphorus <pending> CBC Auto Diff 11/02/2018 [facility] [facility] White Blood Count 6.2 10^3/uL N 3.5-10.8 Red Blood Count 3.68 10^6/uL Low 3.70-4.87 Hemoglobin 11.8 g/dL Low 12.0-16.0 Hematocrit 36 % N 33-41 Mean Corpuscular Volume 96 fL N 80-97 Mean Corpuscular Hemoglobin 32 pg High 27-31 Mean Corpuscular HGB Conc 33 g/dL N 31-36 Red Cell Distribution Width 14 % N 10.5-15 Platelet Count 252 10^3/uL N 150-450 Mean Platelet Volume 7.7 fL N 7.4-10.4 Abs Neutrophils 3.7 10^3/uL N 1.5-7.7 Abs Lymphocytes 1.7 10^3/uL N 1.0-4.8 Abs Monocytes 0.4 10^3/uL N 0-0.8 Abs Eosinophils 0.4 10^3/uL N 0-0.6 Abs Basophils 0 10^3/uL N 0-0.2 Abs Nucleated RBC 0 10^3/uL Granulocyte % 59.0 % Lymphocyte % 27.8 % Monocyte % 5.6 % Eosinophil % 6.9 % Basophil % 0.7 % Nucleated Red Blood Cells % 0.1 Laboratory test 10/23/2018 [facility] Quickstrep NEGATIVE Negative finding (607)- - CBC Auto Diff 10/19/2018 [facility] [place] White Blood Count 6.3 10^3/uL N 3.5-10.8 Red Blood Count 3.49 10^6/uL Low 3.70-4.87 Hemoglobin 11.2 g/dL Low 12.0-16.0 Hematocrit 34 % N 33-41 Mean Corpuscular Volume 97 fL N 80-97 Mean Corpuscular Hemoglobin 32 pg High 27-31 Mean Corpuscular HGB Conc 33 g/dL N 31-36 Red Cell Distribution Width 15 % N 10.5-15 Platelet Count 213 10^3/uL N 150-450 Mean Platelet Volume 7.9 fL N 7.4-10.4 Abs Neutrophils 3.9 10^3/uL N 1.5-7.7 Abs Lymphocytes 1.6 10^3/uL N 1.0-4.8 Abs Monocytes 0.4 10^3/uL N 0-0.8 Abs Eosinophils 0.4 10^3/uL N 0-0.6 Abs Basophils 0 10^3/uL N 0-0.2 Abs Nucleated RBC 0 10^3/uL Granulocyte % 62.1 % Lymphocyte % 24.6 % Monocyte % 6.4 % Eosinophil % 6.3 % Basophil % 0.6 % Nucleated Red Blood Cells % 0 Inr/Protime 08/13/2018 [facility] [place] Inr 0.94 N 0.77-1.02 CBC No Diff 08/13/2018 [facility] [place] White Blood Count 5.4 10^3/uL N 3.5-10.8 Red Blood Count 3.26 10^6/uL Low 4.00-5.40 Hemoglobin 10.6 g/dL Low 12.0-16.0 Hematocrit 32 % Low 35-47 Mean Corpuscular Volume 97 fL N 80-97 Mean Corpuscular Hemoglobin 33 pg High 27-31 Mean Corpuscular HGB Conc 34 g/dL N 31-36 Red Cell Distribution Width 13 % N 10.5-15 Platelet Count 202 10^3/uL N 150-450 Mean Platelet Volume 7.4 fL N 7.4-10.4 Basic Metabolic Panel 08/13/2018 [facility] Sodium 136 mmol/L N 135-145 Chloride 105 mmol/L N 101-111 Co2 Carbon Dioxide 24 mmol/L N 22-32 Calcium 8.9 mg/dL N 8.6-10.3 Potassium TNP mmol/L 3.5-5.0 1 Anion Gap 7 mmol/L N 2-11 Glucose 98 mg/dL N 70-100 Blood Urea Nitrogen 42 mg/dL High 6-24 Creatinine 1.56 mg/dL High 0.51-0.95 BUN/Creatinine Ratio 26.9 High 8-20 Egfr Non- 32.1 >60 Egfr 38.8 >60 2 CKMB 07/19/2018 [facility] CKMB ng/mL 2.5 ng/mL N 0.6-6.3 Laboratory test finding 07/19/2018 [facility] [place] [facility] Magnesium 1.8 mg/dL Low 1.9-2.7 Creatine Kinase(CK) 72 U/L N 10-223 Troponin I 0.01 ng/mL <0.04 3 Comp Metabolic Panel 07/19/2018 [facility] Sodium 136 mmol/L N 135-145 Chloride 106 mmol/L N 101-111 Co2 Carbon Dioxide 26 mmol/L N 22-32 Glucose 127 mg/dL High 70-100 Blood Urea Nitrogen 36 mg/dL High 6-24 Creatinine 1.39 mg/dL High 0.51-0.95 BUN/Creatinine Ratio 25.9 High 8-20 Calcium 9.1 mg/dL N 8.6-10.3 Total Protein 6.5 g/dL N 6.4-8.9 Albumin 3.9 g/dL N 3.2-5.2 Globulin 2.6 g/dL N 2-4 Albumin/Globulin Ratio 1.5 N 1-3 Total Bilirubin 0.30 mg/dL N 0.2-1.0 Alkaline Phosphatase 88 U/L N 34-104 Alt 14 U/L N 7-52 Ast 20 U/L N 13-39 Egfr Non- 36.7 >60 Egfr 44.4 >60 4 Potassium 5.2 mmol/L High 3.5-5.0 Anion Gap 4 mmol/L N 2-11 Laboratory test finding 07/19/2018 [facility] [place] Partial Thrombo Time 30.2 seconds N 26.0-36.3 PTT Lactic Acid 1.0 mmol/L N 0.5-2.0 5 Inr/Protime 07/19/2018 [facility] [place] [facility] Inr 0.90 N 0.77-1.02 CBC Auto Diff 07/19/2018 [facility] [place] White Blood Count 6.5 10^3/uL N 3.5-10.8 Red Blood Count 3.21 10^6/uL Low 4.00-5.40 Hemoglobin 10.6 g/dL Low 12.0-16.0 Hematocrit 31 % Low 35-47 Mean Corpuscular Volume 96 fL N 80-97 Mean Corpuscular Hemoglobin 33 pg High 27-31 Mean Corpuscular HGB Conc 35 g/dL N 31-36 Red Cell Distribution Width 14 % N 10.5-15 Platelet Count 189 10^3/uL N 150-450 Mean Platelet Volume 6.8 fL Low 7.4-10.4 Abs Neutrophils 4.4 10^3/uL N 1.5-7.7 Abs Lymphocytes 1.2 10^3/uL N 1.0-4.8 Abs Monocytes 0.6 10^3/uL N 0-0.8 Abs Eosinophils 0.2 10^3/uL N 0-0.6 Abs Basophils 0 10^3/uL N 0-0.2 Abs Nucleated RBC 0 10^3/uL Granulocyte % 67.3 % Lymphocyte % 19.0 % Monocyte % 9.8 % Eosinophil % 3.2 % Basophil % 0.7 % Nucleated Red Blood Cells % 0 Laboratory test 07/19/2018 [facility] [place] Troponin I 0.02 ng/mL <0.04 6 finding Laboratory test 07/16/2018 [facility] Hemoglobin 11.6 g/dL Low 12.0- 17.0 finding (607)- - (Fma/CMC/CTX) Type & Screen 06/19/2018 [facility] [place] Patient Blood B Negative Type Antibody Screen POSITIVE CBC Auto Diff 06/19/2018 [facility] [place] White Blood Count 5.1 10^3/uL N 3.5-10.8 Red Blood Count 3.12 10^6/uL Low 4.00-5.40 Hemoglobin 10.3 g/dL Low 12.0-16.0 Hematocrit 31 % Low 35-47 Mean Corpuscular Volume 98 fL High 80-97 Mean Corpuscular Hemoglobin 33 pg High 27-31 Mean Corpuscular HGB Conc 34 g/dL N 31-36 Red Cell Distribution Width 13 % N 10.5-15 Platelet Count 172 10^3/uL N 150-450 Mean Platelet Volume 7.5 fL N 7.4-10.4 Abs Neutrophils 3.0 10^3/uL N 1.5-7.7 Abs Lymphocytes 1.5 10^3/uL N 1.0-4.8 Abs Monocytes 0.3 10^3/uL N 0-0.8 Abs Eosinophils 0.2 10^3/uL N 0-0.6 Abs Basophils 0 10^3/uL N 0-0.2 Abs Nucleated RBC 0 10^3/uL Granulocyte % 58.6 % Lymphocyte % 30.6 % Monocyte % 6.5 % Eosinophil % 4.0 % Basophil % 0.3 % Nucleated Red Blood Cells % 0.1 Laboratory test finding 06/19/2018 [facility] [place] Antibody Identification D Direct Antiglobulin Test NEGATIVE Packed Cells SEE RESULTS BELO <SEE NOTE> 7 Antibody Id Autocontrol 0 Laboratory test finding 05/20/2018 [facility] [place] Thyroxine 9.31 g/mL N 6.09- 12.23 TSH (Thyroid Stim Horm) 4.03 mcIU/mL N 0.34-5.60 Antibody Identification D Direct Antiglobulin Test NEGATIVE Blood Culture SEE RESULT BELOW 8 Packed Cells SEE RESULTS BELO <SEE NOTE> 9 CKMB 05/20/2018 [facility] [place] CKMB ng/mL 1.1 ng/mL N 0.6-6.3 Laboratory test finding 05/20/2018 [facility] [place] Magnesium 2.0 mg/dL N 1.9-2.7 Creatine Kinase(CK) 44 U/L N 10-223 Troponin I 0.01 ng/mL <0.04 Comp Metabolic Panel 05/20/2018 [facility] [place] Sodium 138 mmol/L N 135-145 Potassium 4.5 mmol/L N 3.5-5.0 Chloride 106 mmol/L N 101-111 Co2 Carbon Dioxide 28 mmol/L N 22-32 Anion Gap 4 mmol/L N 2-11 Glucose 101 mg/dL High 70-100 Blood Urea Nitrogen 32 mg/dL High 6-24 Creatinine 1.30 mg/dL High 0.51-0.95 BUN/Creatinine Ratio 24.6 High 8-20 Calcium 9.2 mg/dL N 8.6-10.3 Total Protein 6.5 g/dL N 6.4-8.9 Albumin 3.6 g/dL N 3.2-5.2 Globulin 2.9 g/dL N 2-4 Albumin/Globulin Ratio 1.2 N 1-3 Total Bilirubin 0.30 mg/dL N 0.2-1.0 Alkaline Phosphatase 77 U/L N 34-104 Alt 10 U/L N 7-52 Ast 17 U/L N 13-39 Egfr Non- 39.6 >60 Egfr 47.9 >60 10 Type & Screen 05/20/2018 [facility] [place] Patient Blood Type B Negative Antibody Screen POSITIVE Laboratory test 05/20/2018 [facility] [place] [facility] Partial Thrombo 24.8 seconds Low 26.0- 36.3 finding Time PTT D Dimer Quantitative 314 ng/mL High Less Than 230 11 Inr/Protime 05/20/2018 [facility] [place] Inr 0.97 N 0.77-1.02 Laboratory test 05/20/2018 [facility] [place] [facility] B-Type Natriuretic 394 pg/mL High 12 finding Peptide BNP CBC Auto Diff 05/20/2018 [facility] [place] White Blood Count 6.0 10^3/uL N 3.5-10.8 Red Blood Count 2.77 10^6/uL Low 4.00-5.40 Hemoglobin 9.3 g/dL Low 12.0-16.0 Hematocrit 27 % Low 35-47 Mean Corpuscular Volume 99 fL High 80-97 Mean Corpuscular Hemoglobin 34 pg High 27-31 Mean Corpuscular HGB Conc 34 g/dL N 31-36 Red Cell Distribution Width 13 % N 10.5-15 Platelet Count 174 10^3/uL N 150-450 Mean Platelet Volume 6.7 um3 Low 7.4-10.4 Abs Neutrophils 3.7 10^3/uL N 1.5-7.7 Abs Lymphocytes 1.6 10^3/uL N 1.0-4.8 Abs Monocytes 0.5 10^3/uL N 0-0.8 Abs Eosinophils 0.2 10^3/uL N 0-0.6 Abs Basophils 0 10^3/uL N 0-0.2 Abs Nucleated RBC 0 10^3/uL Granulocyte % 60.4 % N 38-83 Lymphocyte % 27.1 % N 25-47 Monocyte % 8.6 % High 0-7 Eosinophil % 3.3 % N 0-6 Basophil % 0.6 % N 0-2 Nucleated Red Blood Cells % 0 Laboratory test 05/20/2018 [facility] [place] Lactic Acid 0.8 mmol/L N 0.5-2.0 13 finding CBC Electronic ([facility] 05/20/2018 [facility] WBC 6.36 4.0-10.0 New) (607)- - RBC 2.96 Low 3.93-6.0 Hemoglobin (Fma/CMC/CTX) 9.9 g/dL Low 12.0-17.0 Hematocrit (a/CMC/CTX) 29.4 % Low 35.0-50.0 Mean Corpuscular Vol [...] 0.3 % 0-1.2 CBC Auto Diff 05/20/2018 [facility] [place] White Blood Count 6.4 10^3/uL N 3.5-10.8 Red Blood Count 2.70 10^6/uL Low 4.00-5.40 Hemoglobin 9.3 g/dL Low 12.0-16.0 Hematocrit 27 % Low 35-47 Mean Corpuscular Volume 98 fL High 80-97 Mean Corpuscular Hemoglobin 34 pg High 27-31 Mean Corpuscular HGB Conc 35 g/dL N 31-36 Red Cell Distribution Width 14 % N 10.5-15 Platelet Count 174 10^3/uL N 150-450 Mean Platelet Volume 6.8 um3 Low 7.4-10.4 Abs Neutrophils 4.2 10^3/uL N 1.5-7.7 Abs Lymphocytes 1.6 10^3/uL N 1.0-4.8 Abs Monocytes 0.5 10^3/uL N 0-0.8 Abs Eosinophils 0.2 10^3/uL N 0-0.6 Abs Basophils 0 10^3/uL N 0-0.2 Abs Nucleated RBC 0 10^3/uL Granulocyte % 64.7 % N 38-83 Lymphocyte % 24.2 % Low 25-47 Monocyte % 7.6 % High 0-7 Eosinophil % 2.9 % N 0-6 Basophil % 0.6 % N 0-2 Nucleated Red Blood Cells % 0.1 Laboratory test 05/20/2018 [facility] [place] Troponin I 0.01 ng/mL <0.04 finding Stool Occult 05/20/2018 [facility] [place] Stool Occult SEE RESULT 14 Blood Diag Blood, Diag BELOW Laboratory test 05/20/2018 [facility] [place] [facility] Point of Care 89 mg/dL N 70-100 15 finding Glucose Laboratory test 05/15/2018 [facility] ([facility]) TSH 3.30 mIU/L 0.50- 6.00 finding Ferritin 336 ng/mL High 15-200 16 Iron And 05/15/2018 [facility] Iron Bind.Cap.([facility]) 213 g/dL Low 250-450 17 [facility] [address] [place] [address] (607)- - Uibc 140 g/dL 118-369 Iron 73 g/dL 27-139 Iron Saturation 34 % 15-55 Urinalysis Profile 04/12/2018 [facility] [place] Urine Color Straw Urine Appearance Clear Urine Specific [place] 1.010 N 1.010-1.030 Urine pH 5 N 5-9 Urine Urobilinogen Negative Negative Urine Ketones Negative Negative Urine Protein 1+(30 mg/dL) Abnormal Negative Urine Leukocytes Negative Negative Urine Blood Negative Negative Urine Nitrite Negative Negative Urine Bilirubin Negative Negative Urine Glucose Negative Negative Laboratory test finding 04/12/2018 [facility] [place] Procalcitonin 77.5 ng/mL High < 0.6 18 C Reactive Protein 269.22 mg/L High <8.01 Manual Differential 04/12/2018 [facility] [place] Immature Granulocytes 26 % High 0-9 Neutrophil % 66 % N 38-83 Band % 26 % High 0-8 Lymphocytes % 7 % Low 25-47 Monocytes % 1 % N 0-7 Eosinophils % 0 % N 0-6 Basophil % 0 % N 0-2 Abs Neutrophils 13.2 10^3/uL High 1.5-7.7 Abs Lymphocytes 1.4 10^3/uL N 1.0-4.8 Abs Monocytes 0.2 10^3/uL N 0-0.8 Abs Eosinophils 0 10^3/uL N 0-0.6 Abs Basophils 0 10^3/uL N 0-0.2 Anisocytosis 1+ CBC Auto Diff 04/12/2018 [facility] [place] White Blood Count 20.0 10^3/uL High 3.5- 10.8 Red Blood Count 3.07 10^6/uL Low 4.00-5.40 Hemoglobin 9.9 g/dL Low 12.0-16.0 Hematocrit 30 % Low 35-47 Mean Corpuscular Volume 97 fL N 80-97 Mean Corpuscular Hemoglobin 32 pg High 27-31 Mean Corpuscular HGB Conc 33 g/dL N 31-36 Red Cell Distribution Width 16 % High 10.5-15 Platelet Count 171 10^3/uL N 150-450 Mean Platelet Volume 7.6 um3 N 7.4-10.4 Abs Neutrophils 15.8 10^3/uL High 1.5-7.7 Laboratory test finding 04/12/2018 [facility] [place] Magnesium 2.3 mg/dL N 1.9-2.7 Troponin I 0.03 ng/mL <0.04 Lactic Acid 1.8 mmol/L N 0.5-2.0 19 Comp Metabolic Panel 04/12/2018 [facility] [place] Sodium 134 mmol/L Low 135-145 Potassium 4.3 mmol/L N 3.5-5.0 Chloride 105 mmol/L N 101-111 Co2 Carbon Dioxide 22 mmol/L N 22-32 Anion Gap 7 mmol/L N 2-11 Glucose 133 mg/dL High 70-100 Blood Urea Nitrogen 42 mg/dL High 6-24 Creatinine 1.87 mg/dL High 0.51-0.95 BUN/Creatinine Ratio 22.5 High 8-20 Calcium 9.2 mg/dL N 8.6-10.3 Total Protein 7.2 g/dL N 6.4-8.9 Albumin 3.9 g/dL N 3.2-5.2 Globulin 3.3 g/dL N 2-4 Albumin/Globulin Ratio 1.2 N 1-3 Total Bilirubin 0.40 mg/dL N 0.2-1.0 Alkaline Phosphatase 87 U/L N 34-104 Alt 14 U/L N 7-52 Ast 35 U/L N 13-39 Egfr Non- 26.0 >60 Egfr 31.5 >60 20 Laboratory test finding 04/12/2018 [facility] [place] [place] Partial Thrombo Time 30.3 seconds N 26.0-36.3 PTT B-Type Natriuretic Peptide BNP 579 pg/mL High 21 Inr/Protime 04/12/2018 [facility] Inr 1.11 High 0.77-1.02 CBC Auto Diff 04/06/2018 [facility] [place] White Blood Count 5.9 10^3/uL N 3.5-10.8 Red Blood Count 3.04 10^6/uL Low 4.00-5.40 Hemoglobin 10.0 g/dL Low 12.0-16.0 Hematocrit 29 % Low 35-47 Mean Corpuscular Volume 95 fL N 80-97 Mean Corpuscular Hemoglobin 33 pg High 27-31 Mean Corpuscular HGB Conc 35 g/dL N 31-36 Red Cell Distribution Width 16 % High 10.5-15 Platelet Count 178 10^3/uL N 150-450 Mean Platelet Volume 7.5 um3 N 7.4-10.4 Abs Neutrophils 3.8 10^3/uL N 1.5-7.7 Abs Lymphocytes 1.5 10^3/uL N 1.0-4.8 Abs Monocytes 0.4 10^3/uL N 0-0.8 Abs Eosinophils 0.2 10^3/uL N 0-0.6 Abs Basophils 0.1 10^3/uL N 0-0.2 Abs Nucleated RBC 0 10^3/uL Granulocyte % 63.9 % N 38-83 Lymphocyte % 26.0 % N 25-47 Monocyte % 6.2 % N 0-7 Eosinophil % 3.0 % N 0-6 Basophil % 0.9 % N 0-2 Nucleated Red Blood Cells % 0.1 CBC Electronic [facility] 03/16/2018 [facility] ([facility]) WBC 6.1 x10^3/UL 4.0- 10.0 RBC 3.25 x10^6/UL Low 3.93-6.00 HGB 10.4 g/dL Low 12.0-17.0 22 HCT 31 % Low 35-50 23 MCV 95.1 fL High 80.0-95.0 MCH 32.0 pg 25.6-32.2 MCHC 33.7 g/dL 32.2-36.0 RDW-CV 15.6 % High 11.6-14.4 PLT 168 x10^3/UL 163-400 MPV 8.9 fL Low 9.4-12.4 Anna# 3.91 x10^3/UL 1.56-6.13 Lymph# 1.56 x10^3/UL 1.18-3.74 [place]# 0.43 x10^3/UL 0.24-0.82 Eos # 0.1 x10^3/UL 0.0-0.5 Baso # 0.03 x10^3/UL 0.01-0.08 Anna% 64.2 % 34.0-70.0 Lymph % 25.7 % 20.0-52.0 [place]% 7.1 % 5.0-12.0 Eos% 2.3 % 0.7-7.0 Baso% 0.5 % 0.1-1.2 Basic Metabolic Profile 03/16/2018 [facility] Dede ([facility]) Sodium 134 mEq/L 134-149 Potassium 5.1 mEq/L 3.6-5.5 Chloride 101 mEq/L 94-112 Carbon Dioxide 26 mEq/L 21-32 Glucose 135 mg/dL High 70-105 BUN 40 mg/dL High 6-26 Creatinine 1.6 mg/dL High 0.6-1.4 BUN/Creat Ratio 25.0 CALC 8.0-36.0 Calcium 9.5 mg/dL 8.6-10.2 GFR Non- 33 ml/min/1.73m^ Low >=60 GFR 40 ml/min/1.73m^ Low >=60 Basic Metabolic Panel 02/13/2018 [facility] Sodium 139 mmol/L N 135-145 Chloride 104 mmol/L N 101-111 Co2 Carbon Dioxide 25 mmol/L N 22-32 Glucose 112 mg/dL High 70-100 Blood Urea Nitrogen 40 mg/dL High 6-24 Creatinine 1.63 mg/dL High 0.51-0.95 BUN/Creatinine Ratio 24.5 High 8-20 Calcium 9.4 mg/dL N 8.6-10.3 Egfr Non- 30.5 >60 Egfr 36.9 >60 24 Potassium 5.2 mmol/L High 3.5-5.0 Anion Gap 10 mmol/L N 2-11 CBC Auto Diff 02/13/2018 [facility] [place] [facility] White Blood Count 6.4 10^3/uL N 3.5-10.8 Red Blood Count 3.67 10^6/uL Low 4.00-5.40 Hemoglobin 11.1 g/dL Low 12.0-16.0 Hematocrit 34 % Low 35-47 Mean Corpuscular Volume 91 fL N 80-97 Mean Corpuscular Hemoglobin 30 pg N 27-31 Mean Corpuscular HGB Conc 33 g/dL N 31-36 Red Cell Distribution Width 18 % High 10.5-15 Platelet Count 240 10^3/uL N 150-450 Mean Platelet Volume 7.6 um3 N 7.4-10.4 Abs Neutrophils 4.4 10^3/uL N 1.5-7.7 Abs Lymphocytes 1.2 10^3/uL N 1.0-4.8 Abs Monocytes 0.6 10^3/uL N 0-0.8 Abs Eosinophils 0.2 10^3/uL N 0-0.6 Abs Basophils 0 10^3/uL N 0-0.2 Abs Nucleated RBC 0 10^3/uL Granulocyte % 69.3 % N 38-83 Lymphocyte % 17.9 % Low 25-47 Monocyte % 8.7 % High 0-7 Eosinophil % 3.4 % N 0-6 Basophil % 0.7 % N 0-2 Nucleated Red Blood Cells % 0 CBC No Diff 02/05/2018 [facility] [place] White Blood Count 6.5 10^3/uL N 3.5-10.8 Red Blood Count 3.52 10^6/uL Low 4.00-5.40 Hemoglobin 10.8 g/dL Low 12.0-16.0 Hematocrit 32 % Low 35-47 Mean Corpuscular Volume 91 fL N 80-97 Mean Corpuscular Hemoglobin 31 pg N 27-31 Mean Corpuscular HGB Conc 34 g/dL N 31-36 Red Cell Distribution Width 17 % High 10.5-15 Platelet Count 266 10^3/uL N 150-450 Mean Platelet Volume 7.4 um3 N 7.4-10.4 Laboratory test finding 01/31/2018 [facility] [place] [facility] Troponin I 0.03 ng/mL <0.04 CBC Auto Diff 01/31/2018 [facility] [place] White Blood Count 7.1 10^3/uL N 3.5-10.8 Red Blood Count 2.38 10^6/uL Low 4.00-5.40 Hemoglobin 7.6 g/dL Low 12.0-16.0 Hematocrit 22 % Low 35-47 Mean Corpuscular Volume 93 fL N 80-97 Mean Corpuscular Hemoglobin 32 pg High 27-31 Mean Corpuscular HGB Conc 34 g/dL N 31-36 Red Cell Distribution Width 16 % High 10.5-15 Platelet Count 189 10^3/uL N 150-450 Mean Platelet Volume 7.1 um3 Low 7.4-10.4 Abs Neutrophils 5.1 10^3/uL N 1.5-7.7 Abs Lymphocytes 1.1 10^3/uL N 1.0-4.8 Abs Monocytes 0.7 10^3/uL N 0-0.8 Abs Eosinophils 0.2 10^3/uL N 0-0.6 Abs Basophils 0.1 10^3/uL N 0-0.2 Abs Nucleated RBC 0 10^3/uL Granulocyte % 71.6 % N 38-83 Lymphocyte % 15.9 % Low 25-47 Monocyte % 9.4 % High 0-7 Eosinophil % 2.2 % N 0-6 Basophil % 0.9 % N 0-2 Nucleated Red Blood Cells % 0 Laboratory test finding 01/31/2018 [facility] [place] Lactic Acid 0.9 mmol/L N 0.5-2.0 25 Comp Metabolic Panel 01/31/2018 [facility] [place] Sodium 137 mmol/L N 135-145 Potassium 4.8 mmol/L N 3.5-5.0 Chloride 107 mmol/L N 101-111 Co2 Carbon Dioxide 25 mmol/L N 22-32 Anion Gap 5 mmol/L N 2-11 Glucose 157 mg/dL High 70-100 Blood Urea Nitrogen 28 mg/dL High 6-24 Creatinine 1.19 mg/dL High 0.51-0.95 BUN/Creatinine Ratio 23.5 High 8-20 Calcium 8.6 mg/dL N 8.6-10.3 Total Protein 5.9 g/dL Low 6.4-8.9 Albumin 3.2 g/dL N 3.2-5.2 Globulin 2.7 g/dL N 2-4 Albumin/Globulin Ratio 1.2 N 1-3 Total Bilirubin 0.50 mg/dL N 0.2-1.0 Alkaline Phosphatase 71 U/L N 34-104 Alt 12 U/L N 7-52 Ast 16 U/L N 13-39 Egfr Non- 43.9 >60 Egfr 53.1 >60 26 Laboratory test finding 01/31/2018 [facility] [place] Troponin I 0.02 ng/mL <0.04 Type & Screen 01/31/2018 [facility] [place] Patient Blood Type B Negative Antibody Screen POSITIVE Laboratory test finding 01/31/2018 [facility] [place] Antibody Identification D Direct Antiglobulin Test NEGATIVE Packed Cells SEE RESULTS BELO <SEE NOTE> 27 Antibody Id Autocontrol 0 CBC Auto Diff 01/21/2018 [facility] [place] White Blood Count 6.4 10^3/uL N 3.5-10.8 Red Blood Count 3.07 10^6/uL Low 4.00-5.40 Hemoglobin 10.1 g/dL Low 12.0-16.0 Hematocrit 29 % Low 35-47 Mean Corpuscular Volume 96 fL N 80-97 Mean Corpuscular Hemoglobin 33 pg High 27-31 Mean Corpuscular HGB Conc 34 g/dL N 31-36 Red Cell Distribution Width 13 % N 10.5-15 Platelet Count 223 10^3/uL N 150-450 Mean Platelet Volume 7.3 um3 Low 7.4-10.4 Abs Neutrophils 4.5 10^3/uL N 1.5-7.7 Abs Lymphocytes 1.3 10^3/uL N 1.0-4.8 Abs Monocytes 0.6 10^3/uL N 0-0.8 Abs Eosinophils 0 10^3/uL N 0-0.6 Abs Basophils 0 10^3/uL N 0-0.2 Abs Nucleated RBC 0 10^3/uL Granulocyte % 70.0 % N 38-83 Lymphocyte % 20.4 % Low 25-47 Monocyte % 9.0 % High 0-7 Eosinophil % 0.2 % N 0-6 Basophil % 0.4 % N 0-2 Nucleated Red Blood Cells % 0.1 Laboratory test 01/21/2018 [facility] [place] Partial Thrombo Time 27.6 seconds N 26.0- 36.3 finding PTT Inr/Protime 01/21/2018 [facility] Inr 0.92 N 0.77-1.02 Laboratory test 01/21/2018 [facility] [place] Magnesium 2.1 mg/dL N 1.9-2.7 finding Troponin I 0.01 ng/mL <0.04 Comp Metabolic Panel 01/21/2018 [facility] [place] Sodium 137 mmol/L N 135-145 Potassium 4.5 mmol/L N 3.5-5.0 Chloride 102 mmol/L N 101-111 Co2 Carbon Dioxide 28 mmol/L N 22-32 Anion Gap 7 mmol/L N 2-11 Glucose 152 mg/dL High 70-100 Blood Urea Nitrogen 32 mg/dL High 6-24 Creatinine 1.41 mg/dL High 0.51-0.95 BUN/Creatinine Ratio 22.7 High 8-20 Calcium 9.2 mg/dL N 8.6-10.3 Total Protein 7.5 g/dL N 6.4-8.9 Albumin 4.2 g/dL N 3.2-5.2 Globulin 3.3 g/dL N 2-4 Albumin/Globulin Ratio 1.3 N 1-3 Total Bilirubin 0.30 mg/dL N 0.2-1.0 Alkaline Phosphatase 90 U/L N 34-104 Alt 12 U/L N 7-52 Ast 17 U/L N 13-39 Egfr Non- 36.1 >60 Egfr 43.6 >60 28 Inr/Protime 01/20/2018 [facility] [place] Inr 0.93 N 0.77-1.02 Laboratory test finding 01/20/2018 [facility] [place] Partial Thrombo 26.2 seconds N 26.0-36.3 Time PTT TSH (Thyroid Stim Horm) 8.23 mcIU/mL High 0.34-5.60 Free T4 (Free Thyroxine) 1.17 ng/dL High 0.61-1.12 Comp Metabolic Panel 01/20/2018 [facility] Sodium 138 mmol/L N 135-145 Chloride 101 mmol/L N 101-111 Co2 Carbon [...] Egfr Non- 32.6 >60 Egfr 39.4 >60 29 Potassium 5.2 mmol/L High 3.5-5.0 Anion Gap 9 mmol/L N 2-11 Laboratory test finding 01/20/2018 [facility] Ferritin 151.0 ng/mL N 11-307 CBC Auto Diff 01/20/2018 [facility] White Blood Count 6.4 10^3/uL N 3.5-10.8 Red Blood Count 2.91 10^6/uL Low [...] Cells % 0 CBC Auto Diff 12/03/2017 [facility] White Blood Count 5.0 10^3/uL N 3.5-10.8 Red Blood Count 3.02 10^6/uL Low 4.0-5.4 Hemoglobin 9.6 g/dL Low 12.0-16.0 Hematocrit 29 % Low 35-47 Mean Corpuscular Volume 97 fL N 80-97 Mean Corpuscular Hemoglobin 32 pg High 27-31 Mean Corpuscular HGB Conc 33 g/dL N 31-36 Red Cell Distribution Width 14 % N 10.5-15 Platelet Count 175 10^3/uL N 150-450 Mean Platelet Volume 7.5 um3 N 7.4-10.4 Abs Neutrophils 2.4 10^3/uL N 1.5-7.7 Abs Lymphocytes 1.9 10^3/uL N 1.0-4.8 Abs Monocytes 0.4 10^3/uL N 0-0.8 Abs Eosinophils 0.2 10^3/uL N 0-0.6 Abs Basophils 0 10^3/uL N 0-0.2 Abs Nucleated RBC 0 10^3/uL Granulocyte % 48.4 % N 38-83 Lymphocyte % 38.2 % N 25-47 Monocyte % 8.2 % High 0-7 Eosinophil % 4.5 % N 0-6 Basophil % 0.7 % N 0-2 Nucleated Red Blood Cells % 0.1 Laboratory test 09/22/2017 [facility] Urine Culture And SEE RESULT 30 finding Sensitivities BELOW Ua - Micro (a) 09/22/2017 [facility] Medicine Appearance CLEAR (607)- - Color YELLOW Glucose, Urine (a/[facility]/CTX) NEG Bilirubin NEG Ketones NEG SP Grav 1.015 Blood TRACE-INTACT # PH 7.0 Protein 2+ Urobil 0.2 Nitrite NEG Leukocytes (a/[facility]) TRACE # Hyaline - /Lpf Granular - /Lpf WBC (a,[facility]) 8-10 # RBC 1-2 # Mucus - /Lpf Epith OCC /Lpf # Bacteria TRACE /Hpf # Amorphous - /Lpf Crystals, Fluid (a/[facility]/CTX) - CBC Auto Diff 01/27/2017 [facility] White Blood Count 6.2 10^3/uL N 3.5-10.8 Red Blood Count 3.31 10^6/uL Low 4.0-5.4 Hemoglobin 10.5 g/dL Low 12.0-16.0 Hematocrit 32 % Low 35-47 Mean Corpuscular Volume 97 fL N 80-97 Mean Corpuscular Hemoglobin 32 pg High 27-31 Mean Corpuscular HGB Conc 33 g/dL N 31-36 Red Cell Distribution Width 14 % N 10.5-15 Platelet Count 183 10^3/uL N 150-450 Mean Platelet Volume 8 um3 N 7.4-10.4 Abs Neutrophils 4.4 10^3/uL N 1.5-7.7 Abs Lymphocytes 1.3 10^3/uL N 1.0-4.8 Abs Monocytes 0.3 10^3/uL N 0-0.8 Abs Eosinophils 0.2 10^3/uL N 0-0.6 Abs Basophils 0 10^3/uL N 0-0.2 Abs Nucleated RBC 0 10^3/uL N Granulocyte % 70.8 % N 38-83 Lymphocyte % 20.3 % Low 25-47 Monocyte % 4.6 % N 1-9 Eosinophil % 3.7 % N 0-6 Basophil % 0.6 % N 0-2 Nucleated Red Blood Cells % 0 N Retic Count 01/27/2017 [facility] Maturation Factor Retic 1.5 N RBC Retic Count 3.31 10^6/uL Low 4.6-6.2 Hematocrit for Retic CNT 32 % Low 35-47 Retic Count 1.3 % N 0.5-1.5 Corrected Retic Count 0.9 % N 0.5-1.5 Retic Index 0.60 N Mean Retic Volume 113.2 N Immature Retic Fraction 0.43 N Iron & Iron Binding Capacity 01/27/2017 [facility] Iron 55 g/dL N 50-212 Unsaturated Iron Binding 201 g/dL N Total Iron Binding Capacity 256 g/dL N 250-450 % Iron Saturation 21 % N 15-55 Laboratory test finding 01/27/2017 [facility] Ferritin 225.4 ng/mL N 11-307 Vitamin B12 550 pg/mL N 180-914 31 Erythropoietin 9.3 mIU/mL N 2.6 - 18.5 32 CBC Auto Diff 10/08/2016 [facility] White Blood Count 6.9 10^3/uL N 3.5-10.8 Red Blood Count 3.39 10^6/uL Low 4.0-5.4 Hemoglobin 10.4 g/dL Low 12.0-16.0 Hematocrit 31 % Low 35-47 Mean Corpuscular Volume 93 fL N 80-97 Mean Corpuscular Hemoglobin 31 pg N 27-31 Mean Corpuscular HGB Conc 33 g/dL N 31-36 Red Cell Distribution Width 15 % N 10.5-15 Platelet Count 179 10^3/uL N 150-450 Mean Platelet Volume 8 um3 N 7.4-10.4 Abs Neutrophils 4.4 10^3/uL N 1.5-7.7 Abs Lymphocytes 1.4 10^3/uL N 1.0-4.8 Abs Monocytes 0.9 10^3/uL High 0-0.8 Abs Eosinophils 0.2 10^3/uL N 0-0.6 Abs Basophils 0 10^3/uL N 0-0.2 Abs Nucleated RBC 0 10^3/uL N Granulocyte % 63.4 % N 38-83 Lymphocyte % 20.3 % Low 25-47 Monocyte % 12.6 % High 1-9 Eosinophil % 3.0 % N 0-6 Basophil % 0.7 % N 0-2 Nucleated Red Blood Cells % 0 N Laboratory test 10/08/2016 [facility] B-Type Natriuretic 610 pg/mL High 33 finding Peptide BNP Inr/Protime 10/08/2016 [facility] Inr 1.00 N 0.89-1.11 Laboratory test 10/08/2016 [facility] Partial Thrombo Time 21.3 seconds Low 26.0 -36.3 finding PTT D Dimer Quantitative 649 ng/mL High Less Than 230 34 Lactic Acid 1.2 mmol/L N 0.5-2.0 35 Comp Metabolic Panel 10/08/2016 [facility] Sodium 134 mmol/L N 133-145 Chloride 106 mmol/L N 101-111 Co2 Carbon Dioxide 22 mmol/L N 22-32 Glucose 130 mg/dL High 70-100 Blood Urea Nitrogen 18 mg/dL N 6-24 Creatinine 1.23 mg/dL High 0.51-0.95 BUN/Creatinine Ratio 14.6 N 8-20 Calcium 8.7 mg/dL N 8.6-10.3 Total Protein 6.6 g/dL N 6.4-8.9 Albumin 3.5 g/dL N 3.2-5.2 Globulin 3.1 g/dL N 2-4 Albumin/Globulin Ratio 1.1 N 1-3 Total Bilirubin 0.40 mg/dL N 0.2-1.0 Alkaline Phosphatase 82 U/L N 34-104 Alt 35 U/L N 7-52 Egfr Non- 42.5 N >60 Egfr 54.6 N >60 36 Potassium 4.9 mmol/L N 3.5-5.0 Anion Gap 6 mmol/L N 2-11 Ast 47 U/L High 13-39 Laboratory test finding 10/08/2016 [facility] Magnesium 1.5 mg/dL Low 1.9-2.7 Lipase 21 U/L N 11.0-82.0 Creatine Kinase(CK) 473 U/L High 10-223 C Reactive Protein 38.59 mg/L High < 5.00 37 Troponin I 0.03 ng/mL N <0.04 38 CKMB 10/08/2016 [facility] CKMB ng/mL 7.4 ng/mL High 0.6-6.3 Laboratory test finding 10/08/2016 [facility] TSH (Thyroid Stim 4.14 mcIU/mL N 0.34-5.60 Horm) Laboratory test finding 10/06/2016 [facility] Inr/Protime 1.06 N 0.89-1.11 Partial Thrombo Time PTT 30.7 seconds N 26.0-36.3 CBC Auto Diff 10/06/2016 [facility] White Blood Count 8.1 10^3/uL N 3.5-10.8 Red Blood Count 3.57 10^6/uL Low 4.0-5.4 Hemoglobin 11.0 g/dL Low 12.0-16.0 Hematocrit 33 % Low 35-47 Mean Corpuscular Volume 91 fL N 80-97 Mean Corpuscular Hemoglobin 31 pg N 27-31 Mean Corpuscular HGB Conc 34 g/dL N 31-36 Red Cell Distribution Width 15 % N 10.5-15 Platelet Count 186 10^3/uL N 150-450 Mean Platelet Volume 8 um3 N 7.4-10.4 Abs Neutrophils 6.7 10^3/uL N 1.5-7.7 Abs Lymphocytes 0.6 10^3/uL Low 1.0-4.8 Abs Monocytes 0.5 10^3/uL N 0-0.8 Abs Eosinophils 0.2 10^3/uL N 0-0.6 Abs Basophils 0 10^3/uL N 0-0.2 Abs Nucleated RBC 0 10^3/uL N Granulocyte % 82.4 % N 38-83 Lymphocyte % 7.6 % Low 25-47 Monocyte % 6.7 % N 1-9 Eosinophil % 2.7 % N 0-6 Basophil % 0.6 % N 0-2 Nucleated Red Blood Cells % 0 N Laboratory test finding 10/06/2016 [facility] Lactic Acid 0.6 mmol/L N 0.5-2.0 39 B-Type Natriuretic Peptide BNP 749 pg/mL High 40 Comp Metabolic Panel 10/06/2016 [facility] Sodium 135 mmol/L N 133-145 Potassium 4.6 mmol/L N 3.5-5.0 Chloride 103 mmol/L N 101-111 Co2 Carbon Dioxide 22 mmol/L N 22-32 Anion Gap 10 mmol/L N 2-11 Glucose 143 mg/dL High 70-100 Blood Urea Nitrogen 19 mg/dL N 6-24 Creatinine 1.18 mg/dL High 0.51-0.95 BUN/Creatinine Ratio 16.1 N 8-20 Calcium 9.2 mg/dL N 8.6-10.3 Total Protein 7.1 g/dL N 6.4-8.9 Albumin 3.7 g/dL N 3.2-5.2 Globulin 3.4 g/dL N 2-4 Albumin/Globulin Ratio 1.1 N 1-3 Total Bilirubin 0.30 mg/dL N 0.2-1.0 Alkaline Phosphatase 100 U/L N 34-104 Alt 27 U/L N 7-52 Ast 38 U/L N 13-39 Egfr Non- 44.5 N >60 Egfr 57.3 N >60 41 Laboratory test finding 10/06/2016 [facility] Magnesium 1.7 mg/dL Low 1.9-2.7 Lipase 20 U/L N 11.0-82.0 Creatine Kinase(CK) 74 U/L N 10-223 C Reactive Protein 83.49 mg/L High < 5.00 42 Troponin I 0.02 ng/mL N <0.04 43 CKMB 10/06/2016 [facility] CKMB ng/mL 2.4 ng/mL N 0.6-6.3 Laboratory test finding 10/06/2016 [facility] TSH (Thyroid Stim 2.62 mcIU/mL N 0.34-5.60 Horm) Urinalysis Profile 10/06/2016 [facility] Urine Color Yellow N Urine Appearance Clear N Urine Specific [place] 1.015 N 1.010-1.030 Urine pH 6.0 N 5-9 Urine Urobilinogen Negative N Negative Urine Ketones Negative N Negative Urine Protein 2+(100 mg/dL) Abnormal Negative Urine Leukocytes Negative N Negative Urine Blood Negative N Negative Urine Nitrite Negative N Negative Urine Bilirubin Negative N Negative Urine Glucose Negative N Negative Urine White Blood Cell Trace(0-5/hpf) N Absent Urine Red Blood Cell 2+(6-10/hpf) Abnormal Absent Urine Bacteria Absent N Absent Urine Squamous Epithelial Cell Present Abnormal Absent CBC Auto Diff 09/24/2016 [facility] White Blood Count 8.4 10^3/uL N 3.5-10.8 Red Blood Count 3.29 10^6/uL Low 4.0-5.4 Hemoglobin 10.4 g/dL Low 12.0-16.0 Hematocrit 31 % Low 35-47 Mean Corpuscular Volume 95 fL N 80-97 Mean Corpuscular Hemoglobin 32 pg High 27-31 Mean Corpuscular HGB Conc 33 g/dL N 31-36 Red Cell Distribution Width 12 % N 10.5-15 Platelet Count 199 10^3/uL N 150-450 Mean Platelet Volume 8 um3 N 7.4-10.4 Abs Neutrophils 5.8 10^3/uL N 1.5-7.7 Abs Lymphocytes 2.0 10^3/uL N 1.0-4.8 Abs Monocytes 0.4 10^3/uL N 0-0.8 Abs Eosinophils 0.2 10^3/uL N 0-0.6 Abs Basophils 0.1 10^3/uL N 0-0.2 Abs Nucleated RBC 0 10^3/uL N Granulocyte % 69.3 % N 38-83 Lymphocyte % 23.2 % Low 25-47 Monocyte % 4.7 % N 1-9 Eosinophil % 2.2 % N 0-6 Basophil % 0.6 % N 0-2 Nucleated Red Blood Cells % 0 N Inr/Protime 09/24/2016 [facility] Inr 0.95 N 0.89-1.11 Laboratory test finding 09/24/2016 [facility] Lactic Acid 2.2 mmol/L High 0.5- 2.0 44 Comp Metabolic Panel 09/24/2016 [facility] Sodium 136 mmol/L N 133-145 Chloride 101 mmol/L N 101-111 Co2 Carbon Dioxide 27 mmol/L N 22-32 Glucose 192 mg/dL High 70-100 Blood Urea Nitrogen 31 mg/dL High 6-24 Creatinine 1.12 mg/dL High 0.51-0.95 BUN/Creatinine Ratio 27.7 High 8-20 Calcium 9.6 mg/dL N 8.6-10.3 Total Protein 7.3 g/dL N 6.4-8.9 Albumin 3.8 g/dL N 3.2-5.2 Globulin 3.5 g/dL N 2-4 Albumin/Globulin Ratio 1.1 N 1-3 Total Bilirubin 0.30 mg/dL N 0.2-1.0 Alkaline Phosphatase 91 U/L N 34-104 Alt 13 U/L N 7-52 Egfr Non- 47.3 N >60 Egfr 60.8 N >60 45 Potassium TNP mmol/L N 3.5-5.0 Anion Gap TNP mmol/L N 2-11 Ast TNP U/L N 13-39 Laboratory test finding 09/24/2016 [facility] Troponin I 0.05 ng/mL High <0.04 46 Magnesium TNP mg/dL N 1.9-2.7 TSH (Thyroid Stim Horm) 0.54 mcIU/mL N 0.34-5.60 D Dimer Quantitative 257 ng/mL High Less Than 230 47 Toxassure(R) Select 13 08/14/2016 [facility] Report Summary FINAL 48 (MW) [address] [place] [address] (106)- - PDF . Laboratory test 08/14/2016 [facility] PDF [id number] SEE IMAGE finding [address] [place] [address] (660)- - Ua - Non Micro 08/14/2016 [facility] Appearance clear (Fma) (353)- - Color yellow Glucose, Urine ([facility]ma/[facility]/CTX) - Bilirubin - Ketones - SP Grav 1.010 Blood trace (intact) # PH 5.5 Protein 1+ (ssa) # Urobil 0.2 Nitrite - Leukocytes ([facility]ma/[facility]) trace # QNS micro and CS Basic Metabolic Panel 06/11/2016 [facility] Sodium 136 mmol/L N 133-145 Potassium 5.2 mmol/L High 3.5-5.0 Chloride 106 mmol/L N 101-111 Co2 Carbon Dioxide 23 mmol/L N 22-32 Anion Gap 7 mmol/L N 2-11 Glucose 135 mg/dL High 70-100 Blood Urea Nitrogen 35 mg/dL High 6-24 Creatinine 1.26 mg/dL High 0.51-0.95 BUN/Creatinine Ratio 27.8 High 8-20 Calcium 9.4 mg/dL N 8.6-10.3 Egfr Non- 41.3 N >60 Egfr 53.1 N >60 49 Comprehensive Metabolic 03/27/2016 Hebert Dede ([facility]) Sodium 139 mEq/L 134-149 Prof Potassium 5.0 mEq/L 3.6-5.5 Chloride 103 mEq/L 94-112 Carbon Dioxide 24 mEq/L 21-32 Glucose 104 mg/dL 70-105 BUN 32 mg/dL High 6-26 50 Creatinine 1.1 mg/dL 0.6-1.4 BUN/Creat Ratio 29.1 [...] >60 ml/min/1.73m^ >=60 Laboratory test finding 03/27/2016 Hebert Dede ([facility]) TSH 2.26 mIU/L 0.50-6.00 Complete Blood Count 03/27/2016 Hebert Dede ([facility]) WBC 7.1 x10^3/UL 3.6-9.6 RBC 3.00 x10^6/UL Low 3.90-5.70 HGB 10.1 g/dL Low 12.1-17.2 51 HCT 29 % Low 36-50 MCV 96.0 fL 82.2-97.4 MCH 33.8 pg High 27.6-33.3 MCHC 35.3 g/dL 33.0-35.5 RDW 13.4 % 11.6-13.7 PLT 229 x10^3/UL 150-400 MPV 7.0 fL Low 7.4-10.4 Gran # 5.3 x10^3/UL 1.5-7.2 Lymph# 1.6 x10^3/UL 0.7-4.9 [place]# 0.2 x10^3/UL 0.1-0.9 Gran % 72.4 % 42.2-75.2 Lymph % 23.7 % 20.5-51.1 [place]% 3.9 % 1.7-9.3 Laboratory test 03/27/2016 Hebert Aguayo (a) Free T4 1.41 ng/dL 0.75- 1.54 finding Laboratory test 03/27/2016 [facility] Brain Natural 416 pg/mL High < 100 finding (607)- - Peptide Laboratory test 02/07/2016 Hebert Aguayo (a) TSH 0.68 mIU/L 0.50- 6.00 finding Free T4 1.83 ng/dL High 0.75-1.54 52 Free T3 2.31 pg/mL 2.00-4.90 Magnesium, Serum 2.1 mEq/L 1.2-2.1 Laboratory test 02/07/2016 [facility] Brain Natural 475 pg/mL High < 100 finding (607)- - Peptide Laboratory test 02/07/2016 [facility] C-Reactive 6.54 mg/L High 0.00-3.00 53 finding [address] [place] [address] Cardiac (607)- - Basic Metabolic 01/03/2016 Hebert Aguayo (a) Sodium 139 mEq/L 134- 149 Profile Potassium 4.2 mEq/L 3.6-5.5 Chloride 102 mEq/L 94-112 Carbon Dioxide 27 mEq/L 21-32 Glucose 118 mg/dL High 70-105 54 BUN 32 mg/dL High 6-26 55 Creatinine 1.2 mg/dL 0.6-1.4 BUN/Creat Ratio 26.7 CALC 8.0-36.0 Calcium 9.4 mg/dL 8.6-10.2 GFR Non- 46 ml/min/1.73m^ Low >=60 GFR 56 ml/min/1.73m^ Low >=60 Platelet Count 04/19/2015 [facility] Platelet Count 185 10^3/uL N 150-450 Mean Platelet Volume 7 um3 Low 7.4-10.4 Inr/Protime 04/19/2015 [facility] Inr 0.96 N 0.78-1.07 Laboratory test finding 04/19/2015 [facility] Partial Thrombo 28.9 seconds N 26.0-36.3 Time PTT CBC Auto Diff 01/30/2015 [facility] White Blood Count 6.3 10^3/uL N 4.8-10.8 Red Blood Count 3.36 10^6/uL Low 4.0-5.4 Hemoglobin 10.8 g/dL Low 12.0-16.0 Hematocrit 33 % Low 35-47 Mean Corpuscular Volume 99 fL High 80-97 Mean Corpuscular Hemoglobin 32 pg High 27-31 Mean Corpuscular HGB Conc 33 g/dL N 31-36 Red Cell Distribution Width 13 % N 10.5-15 Platelet Count 201 10^3/uL N 150-450 Mean Platelet Volume 9 um3 N 7.4-10.4 Abs Neutrophils 4.1 10^3/uL N 1.5-7.7 Abs Lymphocytes 1.6 10^3/uL N 1.0-4.8 Abs Monocytes 0.3 10^3/uL N 0-0.8 Abs Eosinophils 0.2 10^3/uL N 0-0.6 Abs Basophils 0 10^3/uL N 0-0.2 Abs Nucleated RBC 0 10^3/uL N Granulocyte % 65.2 % N 38-83 Lymphocyte % 26.1 % N 25-47 Monocyte % 5.3 % N 1-9 Eosinophil % 3.0 % N 0-6 Basophil % 0.4 % N 0-2 Nucleated Red Blood Cells % 0 N Laboratory test 01/09/2015 [facility] Rheumatoid Arth 12.6 IU/mL 0.0-13.9 finding [address] [place] [id number] [phone] Laboratory test 01/09/2015 Ambrosio Dede ([facility]) TSH 3.53 mIU/L 0.50- 6.00 finding Free T4 1.51 ng/dL 0.75-1.54 CBC Auto Diff 11/23/2014 [facility] White Blood Count 5.7 10^3/uL N 4.8-10.8 Red Blood Count 3.22 10^6/uL Low 4.0-5.4 Hemoglobin 10.8 g/dL Low 12.0-16.0 Hematocrit 32 % Low 35-47 Mean Corpuscular Volume 99 fL High 80-97 Mean Corpuscular Hemoglobin 34 pg High 27-31 Mean Corpuscular HGB Conc 34 g/dL N 31-36 Red Cell Distribution Width 15 % N 10.5-15 Platelet Count 173 10^3/uL N 150-450 Mean Platelet Volume 7 um3 Low 7.4-10.4 Abs Neutrophils 3.8 10^3/uL N 1.5-7.7 Abs Lymphocytes 1.3 10^3/uL N 1.0-4.8 Abs Monocytes 0.4 10^3/uL N 0-0.8 Abs Eosinophils 0.2 10^3/uL N 0-0.6 Abs Basophils 0 10^3/uL N 0-0.2 Abs Nucleated RBC 0 10^3/uL N Granulocyte % 66.8 % N 38-83 Lymphocyte % 23.3 % Low 25-47 Monocyte % 6.3 % N 1-9 Eosinophil % 3.1 % N 0-6 Basophil % 0.5 % N 0-2 Nucleated Red Blood Cells % 0 N Comp Metabolic Panel 11/23/2014 [facility] Sodium 136 mmol/L N 133-145 Potassium 4.1 mmol/L N 3.5-5.0 Chloride 103 mmol/L N 101-111 Co2 Carbon Dioxide 28 mmol/L N 22-32 Anion Gap 5 mmol/L N 2-11 Glucose 120 mg/dL High 70-100 Blood Urea Nitrogen 29 mg/dL High 6-24 Creatinine 1.22 mg/dL High 0.51-0.95 BUN/Creatinine Ratio 23.8 High 8-20 Calcium 9.1 mg/dL N 8.6-10.3 Total Protein 6.7 g/dL N 6.4-8.9 Albumin 3.9 g/dL N 3.2-5.2 Globulin 2.8 g/dL N 2-4 Albumin/Globulin Ratio 1.4 N 1-3 Total Bilirubin 0.30 mg/dL N 0.2-1.0 Alkaline Phosphatase 80 U/L N 34-104 Alt 9 U/L N 7-52 Ast 17 U/L N 13-39 Egfr Non- 43.1 N >60 Egfr 55.4 N >60 56 Lipid Profile 10/10/2014 Ambrosio Dede ([facility]) Cholesterol 263 mg/dL High 120-200 Triglycerides 144 mg/dL 30-200 HDL Cholesterol 72 mg/dL 30-85 LDL (Calculated) 162 CALC High 0-129 VLDL Cholesterol 29 mg/dL 0-50 HDL Risk Factor 3.7 CALC 0.0-4.4 Comprehensive Metabolic 10/10/2014 Ambrosio Dede ([facility]) Sodium 138 mEq/L 134-149 Prof Potassium 5.2 mEq/L 3.6-5.5 Chloride 103 mEq/L 94-112 Carbon Dioxide 27 mEq/L 21-32 Glucose 200 mg/dL High 70-105 57 BUN 20 mg/dL 6-26 Creatinine 0.9 mg/dL 0.6-1.4 BUN/Creat Ratio 22.2 CALC 8.0-36.0 Calcium 9.7 mg/dL 8.6-10.2 Total Protein 7.1 g/dL 6.4-8.3 Albumin 4.2 g/dL 3.8-5.5 Globulin 2.9 g/dL 2.0-4.8 A/G Ratio 1.4 CALC 0.6-2.3 Alk. Phosphatase 96 U/L 30-110 Alt (SGPT) 11 U/L 7-35 Ast (Sgot) 20 U/L 5-34 Total Bilirubin 0.3 mg/dL 0.2-1.3 Laboratory test finding 09/26/2014 [facility] Jak2 Mutation Analysis See Comment N 58 Blood BCR/Abl Trans 9:22 Fish 09/26/2014 [facility] BCR/abl (Fish) Specimen Blood N BCR/abl (Fish) Specimen Id [id number] N BCR/abl (Fish) Order Date 27 Sep 2014 12:1 <SEE NOTE> N 59 BCR/abl (Fish) Referral Reason anemia N BCR/abl (Fish) Method See Comment N 60 BCR/abl Results See Comment N 61 BCR/abl (Fish) Interpretation See Comment N 62 BCR/abl (Fish) Bi Specialist See Comment N 63 BCR/abl (Fish) Report Date 06 Oct 2014 08:2 <SEE NOTE> N 64 Laboratory test 09/26/2014 [facility] (General) [facility] Lab Test see scanned finding CBC Auto Diff 09/12/2014 [facility] White Blood 6.8 10^3/uL N 4.8-10.8 Count Red Blood Count 3.06 10^6/uL Low 4.0-5.4 Hemoglobin 10.0 g/dL Low 12.0-16.0 Hematocrit 30 % Low 35-47 Mean Corpuscular Volume 98 fL High 80-97 Mean Corpuscular Hemoglobin 33 pg High 27-31 Mean Corpuscular HGB Conc 34 g/dL N 31-36 Red Cell Distribution Width 14 % N 10.5-15 Platelet Count 146 10^3/uL Low 150-450 Mean Platelet Volume 8 um3 N 7.4-10.4 Abs Neutrophils 5.1 10^3/uL N 1.5-7.7 Abs Lymphocytes 0.8 10^3/uL Low 1.0-4.8 Abs Monocytes 0.8 10^3/uL N 0-0.8 Abs Eosinophils 0.1 10^3/uL N 0-0.6 Abs Basophils 0 10^3/uL N 0-0.2 Abs Nucleated RBC 0 10^3/uL N Granulocyte % 75.1 % N 38-83 Lymphocyte % 12.1 % Low 25-47 Monocyte % 11.6 % High 1-9 Eosinophil % 0.8 % N 0-6 Basophil % 0.4 % N 0-2 Nucleated Red Blood Cells % 0 N Laboratory test finding 08/08/2014 Hebert Aguayo (a) TSH 4.74 mIU/L 0.50-6.00 Free T4 1.51 ng/dL 0.75-1.54 Laboratory test 07/04/2014 [facility] Hemoglobin A1c 5.3 % 4.1-5.7 finding (607)- - (Fma/[facility],CX) Brain Natural Peptide 145 pg/mL High <100 Laboratory test 06/13/2014 Hebert Aguayo ([facility]) Vitamin B-12 726 pg/mL 230-1050 finding Laboratory test 06/13/2014 [facility] Sed Rate 43mm finding (607)- - ([facility]ma/[facility]/[place] x) Lyme Igg/M W/RFX 06/13/2014 [facility] Lyme IgG/IgM Ab <0.91 ISR 0.00-0.90 [address] [place] [address] [phone] Lyme Disease Ab, Quant, IgM <0.80 index 0.00-0.79 66 Methylmalonic 06/13/2014 [facility] Methylmalonic 271 nmol/L 0-378 67 Acid 28 [facility] Acid, [place] [address] [phone] Laboratory test 06/13/2014 [facility] Antinuclear Abs, Negative 68 finding 28 [facility] [place] [address] [phone] Rheumatoid Arth Factor 9.4 IU/mL 0.0-13.9 Homocysteine 15.4 umol/L High 0.0-15.0 Comprehensive Metabolic 06/06/2014 Hebert Dede ([facility]) Sodium 135 mEq/L 134-149 Prof Potassium 4.5 mEq/L 3.6-5.5 Chloride 97 mEq/L 94-112 Carbon Dioxide 24 mEq/L 21-32 Glucose 144 mg/dL High 70-105 69 BUN 18 mg/dL 6-26 Creatinine 1.0 mg/dL 0.6-1.4 BUN/Creat Ratio 18.0 CALC 8.0-36.0 Calcium 9.5 mg/dL 8.6-10.2 Total Protein 7.1 g/dL 6.4-8.3 Albumin 4.0 g/dL 3.8-5.5 Globulin 3.1 g/dL 2.0-4.8 A/G Ratio 1.3 CALC 0.6-2.3 Alk. Phosphatase 90 U/L 30-110 Alt (SGPT) 17 U/L 7-35 Ast (Sgot) 24 U/L 5-34 Total Bilirubin 0.3 mg/dL 0.2-1.3 Laboratory test 06/06/2014 Hebert Aguay[facility] (a) Magnesium, Serum 1.6 mEq/L 1.2-2.1 finding TSH 3.13 mIU/L 0.50-6.00 Free T3 1.64 pg/mL Low 2.00-4.90 70 Free T4 1.69 ng/dL High 0.75-1.54 71 Complete Blood Count 06/06/2014 [facility]ay[facility] ([facility]) WBC 6.1 x10^3/UL 3.6-9.6 RBC 3.06 x10^6/UL Low 3.90-5.70 72 HGB 10.4 g/dL Low 12.1-17.2 73 HCT 29 % Low 36-50 74 MCV 95.0 fL 82.2-97.4 MCH 34.0 pg High 27.6-33.3 75 MCHC 35.6 g/dL High 33.0-35.5 76 RDW 12.6 % 11.6-13.7 PLT 288 x10^3/UL 150-400 MPV 7.0 fL Low 7.4-10.4 Gran # 4.3 x10^3/UL 1.5-7.2 Lymph# 1.6 x10^3/UL 0.7-4.9 [place]# 0.2 x10^3/UL 0.1-0.9 Gran % 69.6 % 42.2-75.2 Lymph % 26.7 % 20.5-51.1 [place]% 3.7 % 1.7-9.3 Laboratory test 06/06/2014 [facility] Medicine Sed Rate 28mm finding (607)- - ([facility]) Laboratory test 04/06/2014 [facility] ([facility] Lab Test see scannned finding Laboratory test 01/20/2014 [facility] ([facility]) [facility] Lab Test 5-hiaa qt 24hr finding Uric Acid 24HR 12/15/2013 [facility] Urine Random Uric Acid 24.0 mg/dL Urine Urine Uric Acid/24HR 144.0 mg/24Hr Low 250-750 Urine Collection Time 24 Urine Total Volume 600 mL Laboratory test 12/09/2013 [facility] ([facility]) [facility] Lab Test bun/creat finding Laboratory test 2013 Ambros[facility] Dede ([facility]) TSH 1.27 mIU/L 0.50- 6.00 finding Uric Acid 6.5 mg/dL 2.5-9.2 1 Specimen Hemolyzed. Result may not be valid. Unable to report test result due to hemolysis. 2 Because ethnic data is not always [...] 5 Kidney failure <15 (or dialysis) 3 Troponin-I testing on Plasma Separator Tubes (PST) has a known false positive rate of 0.20-0.40%. All positive troponins reflex immediate secondary confirmatory testing. 4 Because ethnic data is not always [...] 5 Kidney failure <15 (or dialysis) 5 [facility] Severe Sepsis and Septic Shock Management Bundle Measure requires all lactic acids initially measuring >2.0 mmol/L be repeated. 6 Troponin-I testing on Plasma Separator Tubes (PST) has a known false positive rate of 0.20-0.40%. All positive troponins reflex immediate secondary confirmatory testing. 7 SEE RESULTS BELOW [id number] [facility] 06/19/18 1512 8 SEE RESULT BELOW Name: JOCELYNE MARTIN : [address]: eDe Warner MD Acct: [id number] Unit: [id number] AGE: 77 Location: ED Re05/20/18 SEX: F Status: DEP ER SPEC: [id number] OSCAR: 05/20/[address]: Dee Warner MD REQ: [id number] RECD: 05/20/18 STATUS: FRANKI DE JESUS DR: Manas Villeda MD _ SOURCE: BLOOD,VENO SPDESC: ORDERED: Blood Cult COMMENTS: Patient is On Antibiotics? NO Procedure Result Reported Site Aerobic Culture Bottle Final 05/25/18- 1826 ML No Growth Day 5 Anaerobic Culture Bottle Final 05/25/181826 ML No Growth Day 5 * ML - Main Lab . END OF REPORT DEPARTMENT OF PATHOLOGY, [address] [place] [address] Ramos Durand M.D. Director [facility] # [id number] SEE RESULTS BELOW [id number] ON PC TRANSFUSED 05/21/18 1448 10 Because ethnic data is not always [...] 5 Kidney failure <15 (or dialysis) 11 Please note: The following may produce a false positive D Dimer test: - Rheumatoid factor greater than 60 IU/ml - Plasma hemoglobin greater than 0.05 gm/dl - Bilirubin greater than 50 mg/dl - Lipids greater than 1000 mg/dl - FDP greater than 20 ug/ml 12 >100 to <200 pg/mL: likely compensated congestive heart failure (CHF) 200 to 400 pg/mL: likely moderate CHF >400 pg/mL: likely moderate to severe CHF 13 [facility] Severe Sepsis and Septic Shock Management Bundle Measure requires all lactic acids initially measuring >2.0 mmol/L be repeated. 14 SEE RESULT BELOW Name: JOCELYNE MARTIN : [address]: Dee Warner MD Acct: [id number] Unit: [id number] AGE: 77 Location: ED Re05/20/18 SEX: F Status: REG ER SPEC: [id number] OSCAR: 05/20/[address]: Dee Warner MD REQ: [id number] RECD: 05/20/18 STATUS: FRANKI DE JESUS DR: Manas Villeda MD _ SOURCE: STOOL SPDESC: ORDERED: Occult Bl, Diag Procedure Result Reported Site Stool Occult Blood (1) Final 05/20/181835 ML Stool Occult Blood Negative * ML - Main Lab . END OF REPORT DEPARTMENT OF PATHOLOGY, [address] [place] [address] Ramos Durand M.D. Director [facility] # [id number] 15 [employer] Laborer: [id number] RESULTS VERIFIED BY REPEAT ANALYSIS 17 18 Interpretive information available on [facility] Test Catalog at [email or web address] 19 [facility] Severe Sepsis and Septic Shock Management Bundle Measure requires all lactic acids initially measuring >2.0 mmol/L be repeated. 20 Because ethnic data is not always [...] 5 Kidney failure <15 (or dialysis) 21 >100 to <200 pg/mL: likely compensated congestive heart failure (CHF) 200 to 400 pg/mL: likely moderate CHF >400 pg/mL: likely moderate to severe CHF 22 RESULTS VERIFIED BY REPEAT ANALYSIS 23 RESULTS VERIFIED BY REPEAT ANALYSIS 24 Because ethnic data is not always [...] 5 Kidney failure <15 (or dialysis) 25 [facility] Severe Sepsis and Septic Shock Management Bundle Measure requires all lactic acids initially measuring >2.0 mmol/L be repeated. 26 Because ethnic data is not always [...] 5 Kidney failure <15 (or dialysis) 27 SEE RESULTS BELOW [id number] ON PC TRANSFUSED 01/31/18 1940 [id number] BN PC TRANSFUSED 02/01/18 1047 [id number] BN PC TRANSFUSED 01/31/18 1240 28 Because ethnic data is not always [...] 5 Kidney failure <15 (or dialysis) 29 Because ethnic data is not always readily [...] 15-29 5 Kidney failure <15 (or dialysis) 30 SEE RESULT BELOW Name: JOCELYNE MARTIN : [address]: Manas Villeda MD Acct: [id number] Unit: [id number] AGE: 76 Location: [facility] Re09/22/17 SEX: F Status: REG REF SPEC: [id number] OSCAR: 09/22/17-161 [facility] [address]: Manas Villeda MD REQ: [id number] RECD: 09/22/17 STATUS: COMP _ SOURCE: URINE SPDESC: ORDERED: Urine Culture COMMENTS: [id number] kemp urine top Procedure Result Reported Site Urine Culture Final 09/24/17- 723 ML Organism 1 KLEBSIELLA PNEUMONIAE [place] Count >100,000 (Many) CFU/ML 1. KLEBSIELLA PNEUMONIAE [...] . END OF REPORT DEPARTMENT OF PATHOLOGY, [address] [place] [address] Ramos Durand M.D. Director [facility] # [id number] 31 Normal Range 180 to 914 Indeterminate Range 145 to 180 Deficient Range <145 32 Test Performed by: [facility] [address] [address] 33 >100 to <200 pg/mL: likely compensated congestive heart failure (CHF) 200 to 400 pg/mL: likely moderate CHF >400 pg/mL: likely moderate to severe CHF 34 Please note: The following may produce a false positive D Dimer test: - Rheumatoid factor greater than 60 IU/ml - Plasma hemoglobin greater than 0.05 gm/dl - Bilirubin greater than 50 mg/dl - Lipids greater than 1000 mg/dl - FDP greater than 20 ug/ml 35 [facility] Severe Sepsis and Septic Shock Management Bundle Measure requires all lactic acids initially measuring >2.0 mmol/L be repeated. 36 Because ethnic data is not always readily [...] 15-29 5 Kidney failure <15 (or dialysis) 37 Acute inflammation: >10.00 38 99th percentile=0.04 ng/mL Troponin results at [facility] and [facility] are not interchangeable. 39 [facility] Severe Sepsis and Septic Shock Management Bundle Measure requires all lactic acids initially measuring >2.0 mmol/L be repeated. 40 >100 to <200 pg/mL: likely compensated congestive heart failure (CHF) 200 to 400 pg/mL: likely moderate CHF >400 pg/mL: likely moderate to severe CHF 41 Because ethnic data is not always [...] 5 Kidney failure <15 (or dialysis) 42 Acute inflammation: >10.00 43 99th percentile=0.04 ng/mL Troponin results at [facility] and [facility] are not interchangeable. 44 Critical Result LACT:2.2 Called to [id number] at: 22:40:14 by:[id number] Read back by:[id number] [facility] Severe Sepsis and Septic Shock Management Bundle Measure requires all lactic acids initially measuring >2.0 mmol/L be repeated. 45 Because ethnic data is not always readily [...] 15-29 5 Kidney failure <15 (or dialysis) 46 Result TnIDx:0.05 Called to [employer] at: 22:42:43 by:[id number] Read back by: [id number] 99th percentile=0.04 ng/mL Troponin results at [facility] and [facility] are not interchangeable. 47 Please note: The following may produce a false positive D Dimer test: - Rheumatoid factor greater than 60 IU/ml - Plasma hemoglobin greater than 0.05 gm/dl - Bilirubin greater than 50 mg/dl - Lipids greater than 1000 mg/dl - FDP greater than 20 ug/ml 48 TOXASSURE SELECT 13 (MW) Test Result Flag [...] Venlafaxine For clinical consultation, please call . 49 Because ethnic data is not always readily [...] 15-29 5 Kidney failure <15 (or dialysis) 50 consistent w/ previous results 51 consistent w/ previous results 52 RESULTS VERIFIED BY REPEAT ANALYSIS 53 Relative Risk for Future Cardiovascular Event Low <1.00 Average 1.00 - 3.00 High >3.00 54 NON-FASTING 55 consistent w/ previous results 56 Because ethnic data is not always readily [...] 15-29 5 Kidney failure <15 (or dialysis) 57 RESULTS VERIFIED BY REPEAT ANALYSIS 58 Peripheral blood, JAK2 V617F mutation analysis: Negative [...] assay has been determined at 0.01% (see [facility] Interpretive Handbook for method details). Laboratory developed test. PDF Report available at: [email or web address] Test Performed by: [place] [id number] Ordnance Engineering Technician: Foreign Bee II, M.D., Ph.D. 59 27 Sep 2014 12:12 60 Locus and probes [Strategy;#nuclei;Class] 9q34(ABL1), 22q11.2(BCR) [DFISH;500;ASR] Probe strategy: DFISH=dual color, double fusion. 61 Abnormality Result %Cutoff BCR/ABL1 fusion Normal <0.6 NOMENCLATURE nuc gerry(ABL1,BCR)x2[500] Of 500 nuclei, 0% had fusion of BCR and ABL1. 62 The result is within normal limits for the BCR and ABL1 gene regions. DISCLAIMER: Analyte Specific Reagent (ASR). This test was developed and its performance characteristics determined by [facility]. It has not been cleared or approved by the U.S. Food and Drug Administration. This FISH test does not rule out other chromosome abnormalities. 63 RESULT: Brian Dietrich MD, PhD 64 06 Oct 2014 08:23 Test Performed by: [address] [address] Ordnance Engineering Technician: Foreign Bee II, M.D., Ph.D. 65 Negative <0.91 Equivocal 0.91 - 1.09 Positive >1.09 Please note reference interval change 66 Negative <0.80 Equivocal 0.80 - 1.19 Positive >1.19 IgM levels may peak at 3-6 weeks post infection, then gradually decline. 67 Please note reference interval change 68 Negative <1:80 Borderline 1:80 Positive >1:80 69 RESULTS VERIFIED BY REPEAT ANALYSIS 70 RESULTS VERIFIED BY REPEAT ANALYSIS 71 RESULTS VERIFIED BY REPEAT ANALYSIS 72 RESULTS VERIFIED BY REPEAT ANALYSIS 73 RESULTS VERIFIED BY REPEAT ANALYSIS 74 RESULTS VERIFIED BY REPEAT ANALYSIS 75 RESULTS VERIFIED BY REPEAT ANALYSIS 76 RESULTS VERIFIED BY REPEAT ANALYSIS Procedures Date Code Description Status 09/18/2018 48017 Brief Emotional/Behav Assessment W/ Scoring Doc Per Completed Standard Inst 07/16/2018 45891 Finger Or Heel Stick Completed 05/15/2018 98754 Pulse Oximetry Completed 04/20/2018 95342 Pulse Oximetry Completed 01/20/2017 36867328 Mammogram Completed 10/22/2016 81820 Pulse Oximetry Completed 10/08/2016 94840 Pulse Oximetry Completed 06/07/2016 00612 Pulse Oximetry Completed 04/26/2016 07113 Pulse Oximetry Completed 03/27/2016 36326 Pulse Oximetry Completed 02/07/2016 86232 Pulse Oximetry Completed 07/27/2015 25039500 Mammogram Completed 06/30/2015 81369 Pulse Oximetry Completed 10/10/2014 65280 Pulse Oximetry Completed 10/04/2014 75955 Nebulizer Treatment Completed 05/20/2014 14903081 Mammogram Completed 09/18/2013 07151386 Colonoscopy Completed Encounters Type Date Location Provider Dx Diagnosis Office Visit 10/23/2018 Main Office Veronica Glez J02.9 Acute pharyngitis, 1:00p [employer] unspecified R05 Cough R09.02 Hypoxemia R53.83 Other fatigue D64.9 Anemia, unspecified Office Visit 09/18/2018 3:00p [facility] Veronica I25.119 VY Onofre disease of [place] art w unsp ang pctrs R51 Headache R07.89 Other chest pain R53.83 Other fatigue Z13.31 Encounter for screening for depression Office Visit 07/16/2018 11:20a [facility] Sidra Cyr I25.119 Chandan Warner M.D. disease of [place] art w unsp ang pctrs D64.9 Anemia, unspecified Office Visit 05/20/2018 11:30a [facility] VY Russell R05 Cough J18.1 Lobar pneumonia, unspecified organism R68.84 Jaw pain R51 Headache I20.0 Unstable angina Office Visit 05/15/2018 3:30p [facility] Office Veronica D64.9 Anemia, Amaris, [employer] unspecified Z23 Encounter for immunization R53.83 Other fatigue J44.9 Chronic obstructive pulmonary disease, unspecified N18.4 Chronic kidney disease, stage 4 (severe) I20.0 Unstable angina M25.561 Pain in right knee M25.562 Pain in left knee Office Visit 04/20/2018 4:30p [facility] Brian Vergara J18.1 Lobar pneumonia, Office MD Taylor unspecified organism J44.9 Chronic obstructive pulmonary disease, unspecified G89.4 Chronic pain syndrome Office Visit 03/16/2018 2:30p 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 Office Veronica R07.89 Other chest Amaris, [employer] pain I20.0 Unstable angina R51 Headache G89.4 Chronic pain syndrome M79.604 Pain in right leg Office Visit 01/16/2018 11:00a [facility] Office Veronica M25.562 Pain in left Amaris, [employer] knee M53.3 Sacrococcygeal disorders, not elsewhere classified R07.89 Other chest pain I20.0 Unstable angina R51 Headache G89.4 Chronic pain syndrome Office Visit 09/24/2017 4:00p [facility] Office Veronica R21 Rash and other Amaris, [employer] nonspecific skin eruption W01.0xxA Fall same lev from slip/trip w/o strike against object, init R07.89 Other chest pain R06.02 Shortness of breath G89.4 Chronic pain syndrome K59.01 Slow transit constipation N39.42 Incontinence without sensory awareness G47.00 Insomnia, unspecified R60.0 Localized edema Office Visit 08/29/2017 10:00a [facility] Veronica J01.90 Acute sinusitis, Amaris, [employer] unspecified R05 Cough K21.9 Gastro-esophageal reflux disease without esophagitis G89.4 Chronic pain syndrome R06.02 Shortness of breath M15.0 Primary generalized (osteo)arthritis I20.9 Angina pectoris, unspecified E03.9 Hypothyroidism, unspecified Office Visit 06/10/2017 3:30p Main Office Veronica Glez, M79.672 Pain in left [employer] foot R29.6 Repeated falls R53.1 Weakness R51 Headache Office Visit 05/07/2017 4:15p [facility] Veronica Amaris, [employer] R51 Headache D64.9 Anemia, unspecified R53.1 Weakness W17.89xA Other fall from one level to another, initial encounter J44.9 Chronic obstructive pulmonary disease, unspecified K21.9 Gastro-esophageal reflux disease without esophagitis R13.10 Dysphagia, unspecified G89.4 Chronic pain syndrome Office Visit 04/10/2017 2:30p Main Office Leonard Russell23 Encounter for [employer] immunization M79.652 Pain in left thigh M79.651 Pain in right thigh N95.0 Postmenopausal bleeding G89.4 Chronic pain syndrome D64.9 Anemia, unspecified Office Visit 02/28/2017 Chuy Martin N95.0 Postmenopausal 2:00p Office Amaris, [employer] bleeding R51 Headache R06.02 Shortness of breath G89.4 Chronic pain syndrome D64.9 Anemia, unspecified Office Visit 12/24/2016 2:00p [facility] Veronica Z23 Encounter for Amaris, [employer] immunization R51 Headache R60.0 Localized edema I48.91 Unspecified atrial fibrillation G89.4 Chronic pain syndrome R06.02 Shortness of breath K21.9 Gastro-esophageal reflux disease without esophagitis Office Visit 11/28/2016 3:45p Main Office Veronica Raygozaart, [employer] R51 Headache I48.91 Unspecified atrial fibrillation K25.7 Chronic gastric ulcer without hemorrhage or perforation G89.4 Chronic pain syndrome M79.644 Pain in right finger(s) Office Visit 11/08/2016 1:00p [facility] Office Veronica K25.7 Chronic gastric Amaris, [employer] ulcer without hemorrhage or perforation I48.91 Unspecified atrial fibrillation R51 Headache M79.644 Pain in right finger(s) M15.0 Primary generalized (osteo)arthritis D64.9 Anemia, unspecified G89.4 Chronic pain syndrome Office Visit 10/22/2016 4:00p [facility] Office Veronica Amaris, [facility] R51 Headache I48.91 Unspecified atrial fibrillation R05 Cough R06.02 Shortness of breath R09.02 Hypoxemia R11.10 Vomiting, unspecified Office Visit 10/08/2016 3:00p [facility] Office Veronica Amaris, [facility] R51 Headache I48.91 Unspecified atrial fibrillation R05 Cough G89.4 Chronic pain syndrome M15.0 Primary generalized (osteo)arthritis R06.02 Shortness of breath Office Visit 09/16/2016 3:00p [facility] Office Veronica Amaris, [facility] R51 Headache G89.4 Chronic pain syndrome M15.0 Primary generalized (osteo)arthritis D64.9 Anemia, unspecified Office Visit 08/14/2016 3:30p [facility] Office Veronica Amaris, [employer] R51 Headache M15.0 Primary generalized (osteo)arthritis R09.02 Hypoxemia G89.4 Chronic pain syndrome R31.9 Hematuria, unspecified D64.9 Anemia, unspecified Office Visit 06/07/2016 11:00a [facility] Office Veronica J01.90 Acute sinusitis, Amaris, [employer] unspecified R51 Headache R53.82 Chronic fatigue, unspecified M79.7 Fibromyalgia M15.0 Primary generalized (osteo)arthritis Office Visit 04/26/2016 3:00p [facility] Office Veronica Amaris, [employer] R51 Headache R53.82 Chronic fatigue, unspecified M79.7 Fibromyalgia M15.0 Primary generalized (osteo)arthritis R09.02 Hypoxemia D50.9 Iron deficiency anemia, unspecified Office Visit 04/10/2016 2:00p [facility] Office Veronica R53.82 Chronic fatigue, Amaris, [employer] unspecified M79.7 Fibromyalgia M15.0 Primary generalized (osteo)arthritis R09.02 Hypoxemia D50.9 Iron deficiency anemia, unspecified J44.9 Chronic obstructive pulmonary disease, unspecified G47.62 Sleep related leg cramps Z23 Encounter for immunization Office Visit 03/27/2016 3:20p [facility] Office Manas Villeda M.D. R51 Headache R53.82 Chronic fatigue, unspecified E03.9 Hypothyroidism, unspecified Office Visit 02/07/2016 3:30p [facility] Office Veronica I10 Essential ( primary) Amaris, [employer] hypertension E03.9 Hypothyroidism, unspecified M79.7 Fibromyalgia K21.9 Gastro-esophageal reflux disease without esophagitis G25.81 Restless legs syndrome M15.0 Primary generalized (osteo)arthritis G89.4 Chronic pain syndrome R09.02 Hypoxemia Office Visit 01/03/2016 3:40p [facility] Office Manas Denny ( primary) Jeane Villeda hypertension E03.9 Hypothyroidism, unspecified M79.7 Fibromyalgia K21.9 Gastro-esophageal reflux disease without esophagitis G25.81 Restless legs syndrome M15.0 Primary generalized (osteo)arthritis J45.998 Other asthma G89.4 Chronic pain syndrome R51 Headache Office Visit 09/06/2015 4:30p [facility] Office Veronica G89.4 Chronic pain Amaris, [employer] syndrome M79.1 Myalgia M15.0 Primary generalized (osteo)arthritis Office Visit 08/11/2015 1:00p [facility] Office Veronica G89.4 Chronic pain Amaris, [employer] syndrome M79.1 Myalgia M15.0 Primary generalized (osteo)arthritis Office Visit 06/30/2015 [facility] Veronica M15.0 Primary generalized 2:00p Office Amaris, [employer] (osteo)arthritis D53.9 Nutritional anemia, unspecified M79.1 Myalgia G89.4 Chronic pain syndrome Office Visit 02/27/2015 [facility] Veronica 715.09 Osteoarthrosis 2:30p Office Amaris, [employer] Generalized Multiple Sites 281.9 Anemia Deficiency Unspec 729.1 Myalgia & Myositis Unspec 782.3 Edema 338.4 Chronic Pain Syndrome Office Visit 01/09/2015 10:30a [facility] Veronica 274.00 Gouty Arthropathy, Office Amaris, [employer] Unspecified 715.09 Osteoarthrosis Generalized Multiple Sites 281.9 Anemia Deficiency Unspec 729.1 Myalgia & Myositis Unspec 244.9 Hypothyroidism Other Unspec 724.5 Backache Unspec Office Visit 11/29/2014 11:45a Main Office Veronica Amaris, 333.94 Restless Legs [employer] Syndrome 715.00 Osteoarthrosis Generalized Site Unspec 724.5 Backache Unspec 285.9 Anemia Unspec 786.2 Cough Office Visit 10/10/2014 11:20a [place] [facility] Manas Arzate 401.9 Hypertension Unspec Jeane Villeda 493.90 Asthma Unspec W/O Status Asthmaticus 244.9 Hypothyroidism Other Unspec 729.1 Myalgia & Myositis Unspec 530.81 Esophageal Reflux 333.94 Restless Legs Syndrome 715.00 Osteoarthrosis Generalized Site Unspec 285.9 Anemia Unspec 786.50 Pain Chest Unspec Office Visit 10/04/2014 2:00p [facility] Office Veronica 465.9 URI Upper Amaris, [employer] Respiratory Infections Acute Unspec Sites 786.2 Cough Office Visit 09/05/2014 3:00p [facility] Office Veronica 729.82 Cramp Of Limb Amaris, [employer] 465.9 URI Upper Respiratory Infections Acute Unspec Sites Office Visit 08/08/2014 3:00p [facility] Office Veronica 724.5 Backache Unspec Amaris, [employer] 281.9 Anemia Deficiency Unspec 729.1 Myalgia & Myositis Unspec 719.47 Pain Joint Ankle & Foot 244.9 Hypothyroidism Other Unspec Office Visit 07/04/2014 1:15p [facility] Office Veronica 790.21 Impaired Amaris, [employer] Fasting Glucose 724.5 Backache Unspec 281.9 Anemia Deficiency Unspec 782.3 Edema Office Visit 06/13/2014 4:00p [facility] Office Veronica 729.1 Myalgia & Amaris, [employer] Myositis Unspec 274.00 Gouty Arthropathy, Unspecified 715.09 Osteoarthrosis Generalized Multiple Sites 281.9 Anemia Deficiency Unspec Office Visit 06/06/2014 3:00p [facility] Office Veronica Amaris, 782.62 Flushing [employer] RIV[employer]ER 530.81 Esophageal Reflux 729.1 Myalgia & Myositis Unspec Office Visit 05/02/2014 1:15p [facility] Office Veronica Glez, 782.62 Flushing [employer]ER 530.81 Esophageal Reflux 787.02 Nausea Alone Office Visit 02/14/2014 2:20p [facility] Manas Arzate 782.62 [place] Office Jeane Villeda Office Visit 01/06/2014 7:00p Main Office Manas Arzate 782.62 Flushing Jeane Villeda Office Visit 2013 8:30a [facility] Manas Arzate 244.9 Hypothyroidism Other Office Jeane Villeda Unspec 274.00 Gouty Arthropathy, Unspecified 333.94 Restless Legs Syndrome 493.90 Asthma Unspec W/O Status Asthmaticus 782.3 Edema 715.09 Osteoarthrosis Generalized Multiple Sites 729.1 Myalgia & Myositis Unspec 530.81 Esophageal Reflux Plan of Treatment Future Appointment(s):12/08/2018 1:30 pm - VY Russell at Main Jebusy8503/25/2019 3:15 pm - VY Russell at [facility] [id number] - JOSE MARIA RussellPM25.562 Pain in left kneeK59.03 Drug induced constipationNew Medication:Miralax 3350 NF - 17 grams every day with large glass waterComments:I want you to use the Miralax every day for a few weeks; I DO expect your bowels to get fairly looseat some point given the switch to hydrocodone, but because you were impacted, we have to do this to smooth the tube out and get you movingFollow up:1 ouobbU86.41 Fecal kwpjolazeW77.4 Chronic pain uydhhwxzX14.0 Localized edemaComments:Elevate your lower extremities several times per dayTake multiple steps per day, walking hxuhsD55.3 Chronic kidney disease, stage 3 (moderate)D64.9 Anemia, unspecified
--- OUTSIDE RECORDS SUMMARY | 2018-11-20 17:36 | XMS REPORT | Continuity of Care Document ---
:1940 External Reference #:[id number] Author Name VY Russell Address [address] [place] [address] Care Team Providers Name Role Phone Manas Villeda MD Care Team Information Lpn Care Manager Unavailable Manas Villeda MD Primary Care Physician Unavailable Payers Date Identification Numbers Payment Provider Subscriber Effective: 2010 Policy Number: [id number] [place] Jocelyne Martin PayID: [id number] [place] [address] Policy Number: [id number] [facility] Herminio Martin PayID: [id number] [address] [place] [address] Advance Directives Description No Information Available Problems [...] Medications SIG Qnty Indications Ordering Date Provider Nystatin 5 milliliters 250ml J02.9 Veronica 10/23/2018 [id number] swish and spit Amaris, 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 Suspension orally four times a day Fluconazole 1 po daily x 2 2tabs J02.9 Veronica 10/23/2018 150mg Tablets days if liquid Amaris 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 nystatin fails to resolve symptoms in 3-4 days of use Hold Amiodorone While Using Diflucan Zithromax 2 by mouth every 6tabs J02.9 Veronica 10/23/2018 250mg Tablets day today , then 1 Amaris, 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 by mouth every day times 4 Plavix 1 by mouth every 90tabs Manas A. 03/16/2018 75mg Tablets mary alice Villeda M.D. Levothyroxine Sodium Take 1 Tablet 90tabs Veronica 08/29/2017 Every Day JOSE MARIA GlezP 175mcg Tablets Ferrous Sulfate 1 by mouth every 90tabs Meldrim A. 01/29/2017 325(65Fe) day Jeane Villeda mg Tablets Venlafaxine HCL ER take 1 capsule by 90caps R23.2 Veronica 04/07/2015 37.5mg mouth every night Amaris, 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 Caps ER 24HR at bedtime Levocetirizine Take 1 Tablet 90tabs Veronica 07/12/2014 Dihydrochloride Every Day Amaris, 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 5mg Tablets Omeprazole 1 po bid 180caps K21.9 Veronica 05/02/[address]Y [address] Ezetimibe 1 by mouth every Unknown 10mg Tablets day Melatonin 1 cap by mouth Unknown 10mg Capsules every day at bedtime Amlodipine Besylate Take 2 Tablets 180tabs Manas A. 5mg Every Day Jeane Villeda Tablets Amitriptyline HCL Take 1 Tablet AT 90tabs Veronica 10mg Bedtime VY Glez Tablets Pramipexole Take 2 Tablets 180tabs Veronica Dihydrochloride Every Night AT Amaris, 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 1mg Bedtime Tablets Breo Ellipta 1 inhalation once Unknown per day, rinse, 100-25mcg/Inh Aerosol samples Oxycodone-Acetaminophe 1-2 by mouth every 240tabs Delfina Alissa n 6 hours as needed Collazo, [employer] 5-325mg Tablets Amiodarone HCL 1 by mouth every Unknown 100mg day Tablets Metoprolol Tartrate take one tablet by Unknown 25mg mouth twice a day Tablets Torsemide take 1 pill a day Unknown 10mg Tablets for fluid Vitamin B12 100mcg qd Unknown Ventolin HFA 2 puffs every 6 3units Veronica 108(90Base) hours as needed VY Glez mcg/Act Aerosol Albuterol Sulfate use four times a 180ml Veronica day as needed VY Glez (2.5mg/3ML) 0.083% Nebulizer Colace 2 by mouth twice a 540caps Veronica 100mg Capsules day for bowels VY Glez Multivitamin With 1 po qd supplement 100tabs Unknown Folic Acid Tablets Senna S 1 by mouth twice a 180tabs Veronica 8.6-50mg Tablets day VY Glez Calcium/Mag 1 po qd 30units Unknown Chewtabs Singulair take 1 tablet 90tabs Veronica 10mg Tablets every day VY Glez Fluticasone Propionate Use 2 Sprays In 48units Veronica Each Nostril AT Amaris, [facility] 50mcg/Act Suspension Bedtime Aspirin 1 by mouth every Unknown 81mg Tablets DR day Vitamin D 2 by mouth every Unknown 1000Unit day Tablets Shark Cartilage 2 po tid Unknown 500mg Capsules History Medications Vitamin B-12 1 by mouth every Delfina Alissa 09/08/2018 - 250mcg day RODRIGO Collazo 09/08/2018 Tablets Primidone Take 3 Tablets 270tabs Manas Arzate 05/19/2018 - 50mg Tablets Every Night AT Jeane Villeda 09/08/2018 Bedtime Tessalon Perles one by mouth three 45caps Brian Vergara 04/20/2018 - 100mg times a day as MD Taylor 09/08/2018 Capsules needed cough Prednisone 4 by mouth x 2 19tabs Veronica 01/16/2018 - 10mg Tablets days, then 3 by Amaris, [facility] 02/04/2018 mouth x 2 days, then 2 by mouth x 2 days,then 1 by mouth x 1 day Ranitidine HCL take one tablet by 90ta Manas Arzate 12/16/2017 - 150mg mouth once daily Jeane Villeda 09/18/2018 Tablets in the evening Nitrofurantoin 1 by mouth two 14caps Manas A. 09/22/2017 - Monohyd Macro times a day Jeane Villeda 09/29/2017 100mg Capsules Amoxicillin 1 tab twice a day 20tabs Veronica 08/29/2017 - 875mg x 10 days [facility] 09/24/2017 Tablets Amoxicillin 1 tab twice a day 14tabs Manas AKandi 08/20/2017 - 875mg x 7 days Jeane Villeda 08/27/2017 Tablets Flovent HFA 1 puff daily to 12gm R13.10 [place] 05/07/2017 - 110mcg/Act tongue, swallow; Amaris, [facility] 09/18/2018 Aerosol samples Breo Ellipta 1 inhalation once 60units Veronica 02/28/2017 - per day, rinse Amaris [facility] 04/20/2018 100-25mcg/Inh Aerosol after use Amiodarone HCL 1 by mouth qd 360tabs [place] 01/09/2017 - 200mg [facility] 09/08/2018 Tablets Amiodarone HCL 2 by mouth bid 120tabs [place] 01/09/2017 - 200mg [facility], [facility] 04/10/2017 Tablets Zostavax inject subq x 1 1units [place] 12/24/2016 - [facility] 08/20/2017 17420Tqj/0.65ML Suspension Rec Amiodarone HCL 1 by mouth twice a 180tabs Veronica 12/24/2016 - 400mg day [facility] 01/09/2017 Tablets Nitroglycerin 1 sl as needed 30tabs [place] 10/28/2016 - 0.4mg pain, may repeat [facility] 09/08/2018 Tablets Sub q5 min, if no relief after 2, call 911 Atrovent HFA 2 puffs qid prn 12.900gm [place] 10/22/2016 - 17mcg/Act shortness of [facility] 11/27/2016 Aerosol breath, asthma symptoms Multaq take one tablet by 180tabs [place] 10/03/2016 - 400mg Tablets mouth twice a day [facility] 12/24/2016 Lisinopril 1 by mouth every Unknown 10/03/2016 - 20mg Tablets day 11/27/2016 Metoprolol Tartrate 1 by mouth twice a 180tabs [place] 10/03/2016 - day [facility] 02/05/2018 25mg Tablets Rosuvastatin Calcium 1 by mouth every Unknown 10/03/2016 - day 11/28/2016 20mg Tablets Aspirin 1 by mouth every Unknown 10/03/2016 - 81mg Tablets DR day 11/08/2016 Hydromorphone HCL ER 1 po daily by 30units G89.4 [place] 09/16/2016 - mouth, nte 1 pill [facility] 10/22/2016 8mg T24a daily Dilaudid 1 by mouth twice 30tabs Veronica 08/14/2016 - 2mg Tablets daily as needed [facility] 10/22/2016 for severe pain caution: sedation, alcohol Chair Lift due to significant G89.4 Veronica 08/14/2016 - chronic pain and [facility] 09/15/2016 immobility, a chair lift is required for adl's and self cares Cyclobenzaprine HCL one to two tablet 60tabs G89.4 [place] 08/14/2016 - 5mg every 12 hours as [facility] 10/22/2016 Tablets needed pain Venlafaxine HCL take 3 by mouth 90tabs G89.4 [place] 08/14/2016 - 37.5mg daily [facility] 11/27/2016 Tablets Amoxicillin 1 tab twice a day 14tabs J01.90 [place] 06/07/2016 - 875mg x 7 days [facility] 08/13/2016 Tablets Prednisone 12 by mouth today, 78tabs J01.90 [place] 06/07/2016 - 5mg Tablets decrease by 1 [facility] 08/13/2016 every day until gone Furosemide 2 po qd 30tabs G47.62 [place] 04/10/2016 - 40mg Tablets [facility] 04/10/2017 Portable Oxygen small portable R09.02 [place] 04/10/2016 - tank for travel [facility] 11/27/2016 away from home Simply Saline 2 sprays each 1Bottle [place] 04/10/2016 - 0.9% nostril twice [facility] 11/27/2016 Aerosol daily Pulse Oximeter for use with R09.02 [place] 04/10/2016 - oxygen therapy [facility] 11/27/2016 desired range is >90% Clonazepam 1/2 to 1 tab by 30tabs G47.62 [place] 04/10/2016 - 0.5mg mouth qhs prn [facility] 09/16/2016 Tablets insomnia --caution sedation with norco Hydrocodone-Acetamino 1-2 every 6 hours 240tabs G89.4 [facility] 02/07/2016 - phen as needed pain [facility] [place], 09/08/2018 10-325mg Tablets Afnp-C Hydrocodone-Acetamino 1-2 every 6 hours 240tabs G89.4 Veronica 2015 - phen as needed pain nte [facility] 02/07/2016 7.5-325mg Tablets 8 tabs per day Hydrocodone G89.4 [place] 02/07/2016 - Bitartrate/Chlorpheni [facility], [facility] 02/07/2016 ramine Maleate/Pse 60-4-5mg/5ML Solution Propr[facility]ol HCL take one tablet by [facility] - 40mg mouth twice a day Jeane Villeda 01/05/2016 Tablets Propranolol HCL Take 1 Tablet 180tabs [facility] 01/05/2016 - 40mg Twice Daily Jeane Villeda 09/16/[address] one patch 10units G89.4 [place] 08/11/2015 - 100mcg/HR every 3 days [facility] 01/03/2016 Patches 72HR Hydromorphone HCL [place] 06/30/2015 - 2mg [facility] 06/30/2015 Tablets Dilaudid 1 po twice daily 30tabs [place] 06/30/2015 - 2mg Tablets as needed for [facility] 08/11/2015 severe pain caution: sedation, alcohol Breo Ellipta 1 puff daily 3units [place] 02/27/2015 - [facility], [facility] 01/03/2016 100-25mcg/Inh Aerosol Hydrocodone-Acetamino 1 by mouth every 6 120tabs G89.4 [place] 2014 - phen hours for pain [facility] 02/07/2016 10-325mg Tablets Hydrocodone 90tabs [place] 01/09/2015 - Bitartrate/Acetaminop [facility] 01/11/2015 hen 10-300mg Tablets Venlafaxine HCL ER 1 by mouth every 30caps 782.62 [place] 10/27/2014 - day [facility] 02/27/2015 37.5mg Caps ER 24HR Symbicort 2 puffs once a day [facility] 10[facility]2014 - Jeane Villeda 02/27/2015 160-4.5mcg/Act Aerosol Biaxin take one tablet by 20tabs 465.9 [place] 10/04/2014 - 500mg Tablets mouth twice a day [facility] 01/09/2015 x 10 days finish all medication Benzonatate 1 three times a 30caps 786.2 [place] 10/04/2014 - 200mg day as needed [facility] 01/09/2015 Capsules cough Nebulizer Set Up And dispense one 1units 786.2 [place] 10/04/2014 - Tubing machine for [facility] 01/03/2016 nebulizer Ipratropium inhale 1 three 180ml R05 [place] 10/04/2014 - [place]/Albuterol times a day x 2 [facility] 09/16/2016 Sulfate weeks 0.5-2.5(3)mg/3ML Solution Nabumetone Take 1 Tablet 180tabs [place] 09/08/2014 - 500mg Twice Daily [facility] 08/14/2016 Tablets Cyclobenzaprine HCL one to two tablet 180tabs M79.1 [place] 09/05/2014 - 5mg every night at [facility] 01/03/2016 Tablets bedtime as needed Amoxicillin 1 tab by mouth 21tabs 465.9 [place] 09/05/2014 - 500mg three times a day [facility] 10/04/2014 Tablets x 7 days samples Oxycodone-Acetaminoph 1-2 by mouth every 200tabs [place] 08/08/2014 - en 4 hours as needed [facility] 01/09/2015 10-325mg Tablets Prednisone take 2 by mouth 30tabs 724.5 [place] 06/13/2014 - 5mg Tablets twice a day x 3 [facility] 01/09/2015 days, then take 1 by mouth three times a day x 3 days, then take 1 by mouth twice a day x 3 d Venlafaxine HCL ER 1 by mouth daily 30tabs 782.62 Karlee Blevins, 2013 - [facility] 10/27/2014 37.5mg Tablets ER 24HR Venlafaxine HCL 1/2 tab by mouth 90tabs 782.62 [place] 05/02/2014 - 50mg daily Samples [facility] 05/02/2014 Tablets Ondansetron HCL 1 by mouth every 8 50tabs R11.0 [place] 05/02/2014 - 8mg hours as needed Amaris, [facility] 11/27/2016 Tablets nausea Ondansetron HCL 1 every 8 hours 30tabs 787.02 [place] 05/02/2014 - 8mg prn nausea Amaris, [facility] 05/02/2014 Tablets Oxycodone-Acetaminoph 1-2 po q4hrs prn 50tabs Veronica 05/02/2014 - en Amaris, [facility] 07/04/2014 10-325mg Tablets Oxycodone/Acetaminoph 1-2 po q4hrs prn 50tabs Amaris, 05/02/2014 - en Veronica, 07/04/2014 10-325mg Tablets [employer]NAGER STATION-F Oxycodone/Acetaminoph 1-2 po q4hrs prn 50tabs Amaris, 05/02/2014 - en Veronica, 07/04/2014 10-325mg Tablets [employer]PERATIONS MANAGER STATION-F Oxycodone/Acetaminoph 1-2 po q4hrs prn 50tabs [place], 05/02/2014 - en Veronica, 08/08/2014 10-325mg Tablets [employer]PERATIONS MANAGER STATION-F Nabumetone 1 po bid 60tabs [place] 05/02/2014 - 500mg Amaris, [facility] 09/05/2014 Tablets Famotidine 1 by mouth twice a 60tabs 530.81 Manas A. 04/14/2014 - 40mg Tablets day Jeane Villeda 05/02/2014 Nizatidine take one capsule 180caps 530.81 Manas AKandi 04/05/2014 - 150mg by mouth twice a Jeane Villeda 04/14/2014 Capsules day Clonidine HCL take one tablet by 90tabs Manas AKandi 02/28/2014 - 0.1mg mouth at bedtime Jeane Villeda 01/09/2015 Tablets Sucralfate 1 by mouth three 270tabs 782.62 Manas AKandi 02/14/2014 - 1gm Tablets times a day Jeane Villeda 05/02/2014 Vitamin B-12 1 po qd Manas AKandi 01/06/2014 - 1000mcg Jeane Villeda 01/06/2014 Tablets [...] by mouth every Unknown - day 09/08/2018 [id number]-Gxct Tablets Metoprolol Succinate 1 by mouth every 90tabs Manas Russo. - ER day Jeane Villeda 07/09/2017 25mg Tablets ER 24HR Torsemide take one tablet by Unknown - 20mg Tablets mouth daily as 07/09/2017 needed Primidone take 3 tablets 90tabs Manas Russo. - 50mg Tablets every night at Jeane [...] reduce to 1 09/08/2018 Tablets po qd Oxycodone/Acetaminoph 1-2 po q4hrs prn 50tabs Unknown [...] Veronica - 80mg Tablets Every Other Day Amaris [facility] 09/16/2016 Alternating With Torsemide Vitamin D 2 by mouth every Unknown - (Cholecalciferol) day 11/27/2016 1000Unit Capsules Vitamin B Complex 1 by mouth every Unknown - day 11/27/2016 Tablets Ranitidine HCL take 1 capsule by Unknown - 150mg mouth twice a day 11/27/2016 Capsules Isosorbide 1 by mouth bid 90tabs Manas A. - Mononitrate ER Jeane Vilelda 08/29/2017 30mg Tablets ER 24HR Sucralfate 1 prior to eating Unknown - 1gm Tablets three times daily 07/25/2017 Ferrous Sulfate 1 by mouth every 90tabs Veronica - day Amaris [facility] 08/20/2017 325(65Fe) mg Tablets Amitriptyline HCL 1 by mouth every Unknown - 1mg day 11/28/2016 Tablets Amlodipine Besylate 1 by mouth every Unknown - 5mg day 04/10/2017 Tablets Proventil HFA use 2 inhalations Unknown - by mouth 2 times 09/24/2017 108(90Base) mcg/Act daily as needed Aerosol for cough/wheeze Immunizations CPT Code Status Date Vaccine Lot # [id number] Given 05/15/2018 High-Dose, Influenza Virus Vacccine-fluzone 65 and [id number] older 09819 Given 04/10/2017 High-Dose, Influenza Virus Vacccine-fluzone 65 and [id number] older 08034 Given 12/24/2016 Tdap Tetanus, W Pertussis [id number] Given 12/24/2016 Pneumococcal Conjugate Vacc-13 [id number] 81821 Given 04/10/2016 Influenza Vac, Quadrivalent, Slit Virus, Im [id number] 71739 Given 05/08/2015 Pneumococcal Immunization [id number] 68664 Given 05/08/2015 Influenza Vac, Quadrivalent, Slit Virus, Im [id number] Vital Signs Date Vital Result Comment 10/23/2018 12:50pm BP Systolic 122 mmHg BP [...] Test Result H/L Range Note Laboratory test 10/23/2018 [facility] Quickstrep NEGATIVE Negative finding (607)- - CBC Auto Diff 10/19/2018 [facility] White Blood 6.3 10^3/uL N 3.5-10.8 Count Red Blood Count 3.49 10^6/uL Low 3.70-4.87 [...] Red Blood Cells % 0 Inr/Protime 08/13/2018 [facility] Inr 0.94 N 0.77-1.02 CBC No Diff 08/13/2018 [facility] White Blood Count 5.4 10^3/uL N 3.5-10.8 [...] fL N 7.4-10.4 Basic Metabolic Panel 08/13/2018 [facility] Sodium 136 mmol/L N 135-145 Chloride 105 [...] ng/mL N 0.6-6.3 Laboratory test finding 07/19/2018 [facility] Magnesium 1.8 mg/dL Low 1.9-2.7 Creatine Kinase(CK) [...] mmol/L N 2-11 Laboratory test finding 07/19/2018 [facility] Partial Thrombo Time 30.2 seconds N 26.0-36.3 PTT Lactic Acid 1.0 mmol/L N 0.5-2.0 5 Inr/Protime 07/19/2018 [facility] Inr 0.90 N 0.77-1.02 CBC Auto Diff 07/19/2018 [facility] White Blood Count 6.5 10^3/uL N 3.5-10.8 [...] Blood Cells % 0 Laboratory test 07/19/2018 [facility] Troponin I 0.02 ng/mL <0.04 6 finding Laboratory test 07/16/2018 [facility] Hemoglobin 11.6 g/dL Low 12.0- 17.0 finding (607)- - (Fma/CMC/CTX) Type & Screen 06/19/2018 [facility] Patient Blood B Negative Type Antibody Screen POSITIVE CBC Auto Diff 06/19/2018 [facility] White Blood Count 5.1 10^3/uL N 3.5-10.8 [...] Cells % 0.1 Laboratory test finding 06/19/2018 [facility] Antibody Identification D Direct Antiglobulin Test NEGATIVE Packed Cells SEE RESULTS BELO <SEE NOTE> 7 Antibody Id Autocontrol 0 Laboratory test finding 05/20/2018 [facility] Thyroxine 9.31 g/mL N 6.09- 12.23 TSH (Thyroid Stim Horm) 4.03 mcIU/mL N 0.34-5.60 Antibody Identification D Direct Antiglobulin Test NEGATIVE Blood Culture SEE RESULT BELOW 8 Packed Cells SEE RESULTS BELO <SEE NOTE> 9 CKMB 05/20/2018 [facility] CKMB ng/mL 1.1 ng/mL N 0.6-6.3 Laboratory test finding 05/20/2018 [facility] Magnesium 2.0 mg/dL N 1.9-2.7 Creatine Kinase(CK) 44 U/L N 10-223 Troponin I 0.01 ng/mL <0.04 Comp Metabolic Panel 05/20/2018 [facility] Sodium 138 mmol/L N 135-145 Potassium 4.5 [...] 47.9 >60 10 Type & Screen 05/20/2018 [facility] Patient Blood Type B Negative Antibody Screen POSITIVE Laboratory test 05/20/2018 [facility] Partial Thrombo 24.8 seconds Low 26.0- 36.3 finding Time PTT D Dimer Quantitative 314 ng/mL High Less Than 230 11 Inr/Protime 05/20/2018 [facility] Inr 0.97 N 0.77-1.02 Laboratory test 05/20/2018 [facility] B-Type Natriuretic 394 pg/mL High 12 finding Peptide BNP CBC Auto Diff 05/20/2018 [facility] White Blood Count 6.0 10^3/uL N 3.5-10.8 [...] Blood Cells % 0 Laboratory test 05/20/2018 [facility] Lactic Acid 0.8 mmol/L N 0.5-2.0 13 finding CBC Electronic ([facility] 05/20/2018 [facility] WBC 6.36 4.0-10.0 New) (607)- - [...] 0.3 % 0-1.2 CBC Auto Diff 05/20/2018 [facility] White Blood Count 6.4 10^3/uL N 3.5-10.8 [...] Blood Cells % 0.1 Laboratory test 05/20/2018 [facility] Troponin I 0.01 ng/mL <0.04 finding Stool Occult 05/20/2018 [facility] Stool Occult SEE RESULT 14 Blood Diag Blood, Diag BELOW Laboratory test 05/20/2018 [facility] Point of Care 89 mg/dL N 70-100 15 finding Glucose Iron And Tibc 05/15/2018 [facility] Iron 213 g/dL Low 250-432 74 0753 [facility] Bind.Cap.(Tibc) [place] [address] (607)- - Uibc 140 g/dL 118-369 Iron 73 g/dL 27-139 Iron Saturation 34 % 15-55 Laboratory test finding 05/15/2018 [facility] Dede TSH 3.30 mIU/L 0.50- 6.00 Ferritin 336 ng/mL High 15-200 17 Inr/Protime 04/12/2018 [facility] Inr 1.11 High 0.77-1.02 Laboratory test 04/12/2018 [facility] Partial Thrombo 30.3 seconds N 26.0-36.3 finding Time PTT B-Type Natriuretic Peptide BNP 579 pg/mL High 18 Comp Metabolic Panel 04/12/2018 [facility] Sodium 134 mmol/L Low 135-145 Potassium 4.3 [...] Egfr Non- 26.0 >60 Egfr 31.5 >60 19 Laboratory test finding 04/12/2018 [facility] Magnesium 2.3 mg/dL N 1.9-2.7 Troponin I 0.03 ng/mL <0.04 Lactic Acid 1.8 mmol/L N 0.5-2.0 20 CBC Auto Diff 04/12/2018 [facility] White Blood Count 20.0 10^3/uL High 3.5- [...] 15.8 10^3/uL High 1.5-7.7 Manual Differential 04/12/2018 [facility] Immature Granulocytes 26 % High 0-9 Neutrophil [...] Basophils 0 10^3/uL N 0-0.2 Anisocytosis 1+ Laboratory test finding 04/12/2018 [facility] Procalcitonin 77.5 ng/mL High < 0.6 21 C Reactive Protein 269.22 mg/L High <8.01 Urinalysis Profile 04/12/2018 [facility] Urine Color Straw Urine Appearance Clear Urine Specific [place] 1.010 N 1.010-1.030 Urine pH 5 N 5-9 Urine Urobilinogen Negative Negative Urine Ketones Negative Negative Urine Protein 1+(30 mg/dL) Abnormal Negative Urine Leukocytes Negative Negative Urine Blood Negative Negative Urine Nitrite Negative Negative Urine Bilirubin Negative Negative Urine Glucose Negative Negative CBC Auto Diff 04/06/2018 [facility] White Blood Count 5.9 10^3/uL N 3.5-10.8 [...] 0.1 CBC Electronic [facility] 03/16/2018 [facility] Dede WBC 6.1 x10^3/UL 4.0-10.0 RBC 3.25 x10^6/UL Low 3.93-6.00 HGB 10.4 g/dL Low 12.0-17.0 22 HCT 31 % Low 35-50 23 MCV 95.1 fL High 80.0-95.0 MCH 32.0 pg 25.6-32.2 MCHC 33.7 g/dL 32.2-36.0 RDW-CV 15.6 % High 11.6-14.4 PLT 168 x10^3/UL 163-400 MPV 8.9 fL Low 9.4-12.4 Anna# 3.91 x10^3/UL 1.56-6.13 Lymph# 1.56 x10^3/UL 1.18-3.74 Tyler# 0.43 x10^3/UL 0.24-0.82 Eos # 0.1 x10^3/UL 0.0-0.5 Baso # 0.03 x10^3/UL 0.01-0.08 Anna% 64.2 % 34.0-70.0 Lymph % 25.7 % 20.0-52.0 Tyler% 7.1 % 5.0-12.0 Eos% 2.3 % 0.7-7.0 Baso% 0.5 % 0.1-1.2 Basic Metabolic Profile 03/16/2018 [facility] Dede Sodium 134 mEq/L 134- 149 Potassium 5.1 mEq/L 3.6-5.5 Chloride 101 mEq/L 94-112 Carbon Dioxide 26 mEq/L 21-32 Glucose 135 mg/dL High 70-105 BUN 40 mg/dL High 6-26 Creatinine 1.6 mg/dL High 0.6-1.4 BUN/Creat Ratio 25.0 CALC 8.0-36.0 Calcium 9.5 mg/dL 8.6-10.2 GFR Non- 33 ml/min/1.73m^ Low >=60 GFR 40 ml/min/1.73m^ Low >=60 CBC Auto Diff 02/13/2018 [facility] White Blood Count 6.4 10^3/uL N 3.5-10.8 [...] Cells % 0 Basic Metabolic Panel 02/13/2018 [facility] Sodium 139 [...] Anion Gap 10 mmol/L N 2-11 CBC No Diff 02/05/2018 [facility] White Blood Count 6.5 10^3/uL N 3.5-10.8 [...] um3 N 7.4-10.4 Laboratory test finding 01/31/2018 [facility] Antibody Identification D Direct Antiglobulin Test NEGATIVE Packed Cells SEE RESULTS BELO <SEE NOTE> 25 Antibody Id Autocontrol 0 Type & Screen 01/31/2018 [facility] Patient Blood Type B Negative Antibody Screen POSITIVE Laboratory test finding 01/31/2018 [facility] Troponin I 0.02 ng/mL <0.04 Comp Metabolic Panel 01/31/2018 [facility] Sodium 137 mmol/L N 135-145 Potassium 4.8 [...] 53.1 >60 26 Laboratory test finding 01/31/2018 [facility] Lactic Acid 0.9 mmol/L N 0.5-2.0 27 CBC Auto Diff 01/31/2018 [facility] White Blood Count 7.1 10^3/uL N 3.5-10.8 [...] Cells % 0 Laboratory test finding 01/31/2018 [facility] Troponin I 0.03 ng/mL <0.04 Comp Metabolic Panel 01/21/2018 [facility] Sodium 137 mmol/L N 135-145 Potassium 4.5 [...] Non- 36.1 >60 Egfr 43.6 >60 28 Laboratory test finding 01/21/2018 [facility] Magnesium 2.1 mg/dL N 1.9-2.7 Troponin I 0.01 ng/mL <0.04 Inr/Protime 01/21/2018 [facility] Inr 0.92 N 0.77-1.02 Laboratory test finding 01/21/2018 [facility] Partial Thrombo 27.6 seconds N 26.0-36.3 Time PTT CBC Auto Diff 01/21/2018 [facility] White Blood Count 6.4 10^3/uL N 3.5-10.8 [...] Red Blood Cells % 0.1 Inr/Protime 01/20/2018 [facility] Inr 0.93 N 0.77-1.02 Laboratory test finding 01/20/2018 [facility] Partial Thrombo 26.2 seconds N 26.0-36.3 Time PTT TSH (Thyroid Stim Horm) 8.23 mcIU/mL High 0.34-5.60 Free T4 (Free Thyroxine) 1.17 ng/dL High 0.61-1.12 Comp Metabolic Panel 01/20/2018 [facility] Sodium 138 mmol/L N 135-145 Chloride 101 [...] mmol/L N 2-11 Laboratory test finding 01/20/2018 [facility] Ferritin 151.0 ng/mL N 11-307 CBC Auto Diff 01/20/2018 [facility] White Blood Count 6.4 10^3/uL N 3.5-10.8 [...] Cells % 0 CBC Auto Diff 12/03/2017 [facility] White Blood Count 5.0 10^3/uL N 3.5-10.8 [...] Blood Cells % 0.1 Laboratory test 09/22/2017 [facility] Urine Culture And SEE RESULT 30 finding Sensitivities BELOW Ua - Micro (a) 09/22/2017 [facility] Medicine Appearance CLEAR (607)- - Color YELLOW Glucose, Urine (a/CMC/CTX) NEG Bilirubin NEG Ketones NEG SP Grav 1.015 Blood TRACE-INTACT # PH 7.0 Protein 2+ Urobil 0.2 Nitrite NEG Leukocytes (a/[facility]) TRACE # Hyaline - /Lpf Granular - /Lpf WBC (a,[facility]) 8-10 # RBC 1-2 # Mucus - /Lpf Epith OCC /Lpf # Bacteria TRACE /Hpf # Amorphous - /Lpf Crystals, Fluid (a/[facility]/CTX) - CBC Auto Diff 01/27/2017 [facility] White Blood Count 6.2 10^3/uL N 3.5-10.8 [...] Cells % 0 N Retic Count 01/27/2017 [facility] Maturation Factor Retic 1.5 N RBC Retic Count 3.31 10^6/uL Low 4.6-6.2 Hematocrit for Retic CNT 32 % Low 35-47 Retic Count 1.3 % N 0.5-1.5 Corrected Retic Count 0.9 % N 0.5-1.5 Retic Index 0.60 N Mean Retic Volume 113.2 N Immature Retic Fraction 0.43 N Iron & Iron Binding Capacity 01/27/2017 [facility] Iron 55 g/dL N 50-212 Unsaturated Iron Binding 201 g/dL N Total Iron Binding Capacity 256 g/dL N 250-450 % Iron Saturation 21 % N 15-55 Laboratory test finding 01/27/2017 [facility] Ferritin 225.4 ng/mL N 11-307 Vitamin B12 550 pg/mL N 180-914 31 Erythropoietin 9.3 mIU/mL N 2.6 - 18.5 32 CBC Auto Diff 10/08/2016 [facility] White Blood Count 6.9 10^3/uL N 3.5-10.8 [...] Cells % 0 N Laboratory test 10/08/2016 [facility] B-Type Natriuretic 610 pg/mL High 33 finding Peptide BNP Inr/Protime 10/08/2016 [facility] Inr 1.00 N 0.89-1.11 Laboratory test 10/08/2016 [facility] Partial Thrombo Time 21.3 seconds Low 26.0 -36.3 finding PTT D Dimer Quantitative 649 ng/mL High Less Than 230 34 Lactic Acid 1.2 mmol/L N 0.5-2.0 35 Comp Metabolic Panel 10/08/2016 [facility] Sodium 134 mmol/L N 133-145 Chloride 106 [...] U/L High 13-39 Laboratory test finding 10/08/2016 [facility] Magnesium 1.5 mg/dL Low 1.9-2.7 Lipase 21 U/L N 11.0-82.0 Creatine Kinase(CK) 473 U/L High 10-223 C Reactive Protein 38.59 mg/L High < 5.00 37 Troponin I 0.03 ng/mL N <0.04 38 CKMB 10/08/2016 [facility] CKMB ng/mL 7.4 ng/mL High 0.6-6.3 Laboratory test finding 10/08/2016 [facility] TSH (Thyroid Stim 4.14 mcIU/mL N 0.34-5.60 Horm) Laboratory test finding 10/06/2016 [facility] Inr/Protime 1.06 N 0.89-1.11 Partial Thrombo Time PTT 30.7 seconds N 26.0-36.3 CBC Auto Diff 10/06/2016 [facility] White Blood Count 8.1 10^3/uL N 3.5-10.8 [...] % 0 N Laboratory test finding 10/06/2016 [facility] Lactic Acid 0.6 mmol/L N 0.5-2.0 39 B-Type Natriuretic Peptide BNP 749 pg/mL High 40 Comp Metabolic Panel 10/06/2016 [facility] Sodium 135 mmol/L N 133-145 Potassium 4.6 [...] N >60 41 Laboratory test finding 10/06/2016 [facility] Magnesium 1.7 mg/dL Low 1.9-2.7 Lipase 20 U/L N 11.0-82.0 Creatine Kinase(CK) 74 U/L N 10-223 C Reactive Protein 83.49 mg/L High < 5.00 42 Troponin I 0.02 ng/mL N <0.04 43 CKMB 10/06/2016 [facility] CKMB ng/mL 2.4 ng/mL N 0.6-6.3 Laboratory test finding 10/06/2016 [facility] TSH (Thyroid Stim 2.62 mcIU/mL N 0.34-5.60 Horm) Urinalysis Profile 10/06/2016 [facility] Urine Color Yellow N Urine Appearance Clear N Urine Specific [place] 1.015 N 1.010-1.030 Urine pH 6.0 N [...] Present Abnormal Absent CBC Auto Diff 09/24/2016 [facility] White Blood Count 8.4 10^3/uL N 3.5-10.8 [...] Blood Cells % 0 N Inr/Protime 09/24/2016 [facility] Inr 0.95 N 0.89-1.11 Laboratory test finding 09/24/2016 [facility] Lactic Acid 2.2 mmol/L High 0.5- 2.0 44 Comp Metabolic Panel 09/24/2016 [facility] Sodium 136 mmol/L N 133-145 Chloride 101 [...] [facility] Report Summary FINAL 48 (MW) [address] [place] [address] (603)- - PDF . Laboratory test 08/14/2016 [facility] PDF [id number] SEE IMAGE finding [address] [place] [address] (60)- - Ua - Non Micro 08/14/2016 [facility] Appearance clear (Fma) (687)- - Color yellow Glucose, Urine (Fma/CMC/CTX) - [...] Egfr 53.1 N >60 49 Comprehensive Metabolic Prof 03/27/2016 Hebert Aguayo Sodium 139 mEq/L 134-149 Potassium 5.0 mEq/L [...] ml/min/1.73m^ >=60 Laboratory test finding 03/27/2016 Hebert Aguayo TSH 2.26 mIU/L 0.50- 6.00 Complete Blood Count 03/27/2016 [facility] Aguayo WBC 7.1 x10^3/UL 3.6-9.6 RBC 3.00 x10^6/UL Low 3.90-5.70 HGB 10.1 g/dL Low 12.1-17.2 51 HCT 29 % Low 36-50 MCV 96.0 fL 82.2-97.4 MCH 33.8 pg High 27.6-33.3 MCHC 35.3 g/dL 33.0-35.5 RDW 13.4 % 11.6-13.7 PLT 229 x10^3/UL 150-400 MPV 7.0 fL Low 7.4-10.4 Gran # 5.3 x10^3/UL 1.5-7.2 Lymph# 1.6 x10^3/UL 0.7-4.9 Tyler# 0.2 x10^3/UL 0.1-0.9 Gran % 72.4 % 42.2-75.2 Lymph % 23.7 % 20.5-51.1 Tyler% 3.9 % 1.7-9.3 Laboratory test 03/27/2016 Hebert Aguayo Free T4 1.41 ng/dL 0.75-1.54 finding Laboratory test 03/27/2016 [facility] Brain Natural 416 pg/mL High < 100 finding (607)- - Peptide Laboratory test 02/07/2016 Hebert Aguayo TSH 0.68 mIU/L 0.50-6.00 finding Free T4 1.83 ng/dL High 0.75-1.54 52 Free T3 2.31 pg/mL 2.00-4.90 Magnesium, Serum 2.1 mEq/L 1.2-2.1 Laboratory test 02/07/2016 [facility] Brain Natural 475 pg/mL High < 100 finding (607)- - Peptide Laboratory test 02/07/2016 [facility] C-Reactive 6.54 mg/L High 0.00-3.00 [address] [place] [phone] Cardiac (607)- - Basic Metabolic 01/03/2016 Hebert Aguayo Sodium 139 mEq/L 134-149 Profile Potassium 4.2 mEq/L 3.6-5.5 Chloride 102 mEq/L 94-112 Carbon Dioxide 27 mEq/L 21-32 Glucose 118 mg/dL High 70-105 54 BUN 32 mg/dL High 6-26 55 Creatinine 1.2 mg/dL 0.6-1.4 BUN/Creat Ratio 26.7 CALC 8.0-36.0 Calcium 9.4 mg/dL 8.6-10.2 GFR Non- 46 ml/min/1.73m^ Low >=60 GFR 56 ml/min/1.73m^ Low >=60 Platelet Count 04/19/2015 [facility] Platelet Count 185 10^3/uL N 150-450 Mean Platelet Volume 7 um3 Low 7.4-10.4 Inr/Protime 04/19/2015 [facility] Inr 0.96 N 0.78-1.07 Laboratory test finding 04/19/2015 [facility] Partial Thrombo 28.9 seconds N 26.0-36.3 Time PTT CBC Auto Diff 01/30/2015 [facility] White Blood Count 6.3 10^3/uL N 4.8-10.8 [...] Rheumatoid Arth 12.6 IU/mL 0.0-13.9 [address] [place] [id number] [phone] Laboratory test 01/09/2015 Ambrosio Dede TSH 3.53 mIU/L 0.50-6.00 finding Free T4 1.51 ng/dL 0.75-1.54 CBC Auto Diff 11/23/2014 [facility] White Blood Count 5.7 10^3/uL N 4.8-10.8 [...] 55.4 N >60 56 Lipid Profile 10/10/2014 Hebert Dede Cholesterol 263 mg/dL High 120- 200 Triglycerides 144 mg/dL 30-200 HDL Cholesterol 72 mg/dL 30-85 LDL (Calculated) 162 CALC High 0-129 VLDL Cholesterol 29 mg/dL 0-50 HDL Risk Factor 3.7 CALC 0.0-4.4 Comprehensive Metabolic Prof 10/10/2014 Hebert Dede Sodium 138 mEq/L 134-149 Potassium 5.2 mEq/L [...] 0.3 mg/dL 0.2-1.3 Laboratory test finding 09/26/2014 [facility] Jak2 Mutation Analysis See Comment N 58 Blood BCR/Abl Trans 9:22 Fish 09/26/2014 [facility] BCR/abl (Fish) Specimen Blood N BCR/abl (Fish) Specimen Id [id number] N BCR/abl (Fish) Order Date 27 Sep 2014 12:1 <SEE NOTE> N 59 BCR/abl (Fish) Referral Reason anemia N BCR/abl (Fish) Method See Comment N 60 BCR/abl Results See Comment N 61 BCR/abl (Fish) Interpretation See Comment N 62 BCR/abl (Fish) Technology Services Manager See Comment N 63 BCR/abl (Fish) Report Date 06 Oct 2014 08:2 <SEE NOTE> N 64 Laboratory test 09/26/2014 [facility] ([facility] Test see scanned finding CBC Auto Diff 09/12/2014 [facility] White Blood 6.8 10^3/uL N 4.8-10.8 Count [...] N Laboratory test finding 08/08/2014 Hebert Aguayo TSH 4.74 mIU/L 0.50- 6.00 Free T4 1.51 ng/dL 0.75-1.54 Laboratory test 07/04/2014 [facility] Hemoglobin A1c 5.3 % 4.1-5.7 finding (607)- - (Fma/CMC,CX) Brain Natural Peptide 145 pg/mL High <100 Laboratory test 06/13/2014 Hebert Aguayo Vitamin B-12 726 pg/mL 230- 1050 finding Laboratory test 06/13/2014 [facility] Sed Rate 43mm finding (607)- - (Fma/CMC/Mays x) Lyme Igg/M W/RFX 06/13/2014 [facility] Lyme IgG/IgM Ab <0.91 ISR 0.00-0.90 [address] [place], [place] [id number] [phone] Lyme Disease Ab, Quant, IgM <0.80 index 0.00-0.79 66 Methylmalonic 06/13/2014 [facility] Methylmalonic 271 nmol/L 0-378 67 Acid 28 [facility] Acid, Serum [place], [place] [id number] [phone] Laboratory test 06/13/2014 [facility] Antinuclear Abs, Negative 68 finding 28 [facility] Ifa [place], [place] [id number] [phone] Rheumatoid Arth Factor 9.4 IU/mL 0.0-13.9 Homocysteine 15.4 umol/L High 0.0-15.0 Comprehensive Metabolic Prof 06/06/2014 Hebert Aguayo Sodium 135 mEq/L 134-149 Potassium 4.5 mEq/L [...] mg/dL 0.2-1.3 Laboratory test 06/06/2014 Hebert Aguayo Magnesium, Serum 1.6 mEq/L 1.2 -2.1 finding TSH 3.13 mIU/L 0.50-6.00 Free T3 1.64 pg/mL Low 2.00-4.90 70 Free T4 1.69 ng/dL High 0.75-1.54 71 Complete Blood Count 06/06/2014 Hebert Dede WBC 6.1 x10^3/UL 3.6-9.6 RBC 3.06 x10^6/UL Low 3.90-5.70 72 HGB 10.4 g/dL Low 12.1-17.2 73 HCT 29 % Low 36-50 74 MCV 95.0 fL 82.2-97.4 MCH 34.0 pg High 27.6-33.3 75 MCHC 35.6 g/dL High 33.0-35.5 76 RDW 12.6 % 11.6-13.7 PLT 288 x10^3/UL 150-400 MPV 7.0 fL Low 7.4-10.4 Gran # 4.3 x10^3/UL 1.5-7.2 Lymph# 1.6 x10^3/UL 0.7-4.9 Tyler# 0.2 x10^3/UL 0.1-0.9 Gran % 69.6 % 42.2-75.2 Lymph % 26.7 % 20.5-51.1 Tyler% 3.7 % 1.7-9.3 Laboratory test 06/06/2014 [facility] Sed Rate 28mm finding (607)- - (Fma/CMC/[facility]) Laboratory test 04/06/2014 Hospital ([facility]) [facility] Test see scannned finding Laboratory test 01/20/2014 [facility] ([facility]) [facility] Test 5-hiaa qt 24hr finding Uric Acid 24HR 12/15/2013 [facility] Urine Random Uric Acid 24.0 mg/dL Urine Urine Uric Acid/24HR 144.0 mg/24Hr Low 250-750 Urine Collection Time 24 Urine Total Volume 600 mL Laboratory test 12/09/2013 [facility] ([facility]) [facility] Test bun/creat finding Laboratory test 2013 Ambrosio Dede TSH 1.27 mIU/L 0.50-6.00 finding Uric Acid 6.5 mg/dL 2.5-9.2 1 [...] 5 Kidney failure <15 (or dialysis) 5 [facility] Severe Sepsis and Septic Shock Management Bundle Measure requires all lactic acids initially measuring >2.0 mmol/L be repeated. 6 Troponin-I testing on Plasma Separator Tubes (PST) has a known false positive rate of 0.20-0.40%. All positive troponins reflex immediate secondary confirmatory testing. 7 SEE RESULTS BELOW [id number] [facility] 06/19/18 1512 8 SEE RESULT BELOW Name: JOCELYNE MARTIN Rafaela : [address]: Dee Warner MD Acct: [id number] Unit: [id number] AGE: 77 Location: ED Re05/20/18 SEX: F Status: DEP ER SPEC: [id number] OSCAR: 05/20/[address] [facility] [address]: Dee Warner MD REQ: [id number] RECD: 05/20/18 STATUS: FRANKI DE JESUS DR: Manas Villeda MD _ SOURCE: BLOOD,VENO [facility]: ORDERED: Blood Cult COMMENTS: Patient is On Antibiotics? NO Procedure Result Reported Site Aerobic Culture Bottle Final 05/25/18- 7 ML No Growth Day 5 Anaerobic Culture Bottle Final 05/25/18- 7 ML No Growth Day 5 * ML - Main Lab . END OF REPORT DEPARTMENT OF PATHOLOGY, [address] [place] [address] Ramos Durand M.D. Director [facility] # [id number] 9 SEE RESULTS BELOW [id number] ON PC TRANSFUSED 05/21/18 1138 10 Because ethnic data is not always [...] pg/mL: likely moderate to severe CHF 13 [facility] Severe Sepsis and Septic Shock Management Bundle Measure requires all lactic acids initially measuring >2.0 mmol/L be repeated. 14 SEE RESULT BELOW Name: JOCELYNE MARTIN : [address]: Dee Warner MD Acct: [id number] Unit: [id number] AGE: 77 Location: ED Re05/20/18 SEX: F Status: REG ER SPEC: [id number] OSCAR: 05/20/[address] [facility] [address]: Dee Warner MD REQ: [id number] RECD: 05/20/18 STATUS: FRANKI DE JESUS DR: Manas Villeda MD _ SOURCE: STOOL SPDESC: ORDERED: Occult Bl, Diag Procedure Result Reported Site Stool Occult Blood (1) Final 05/20/181835 ML Stool Occult Blood Negative * ML - Main Lab . END OF REPORT DEPARTMENT OF PATHOLOGY, [address] [place] [address] Ramos Durand M.D. Director [facility] # [id number] 15 Counter Clerk: [id number] 16 1 17 RESULTS VERIFIED BY REPEAT ANALYSIS 18 >100 to <200 pg/mL: likely compensated congestive heart failure (CHF) 200 to 400 pg/mL: likely moderate CHF >400 pg/mL: likely moderate to severe CHF 19 Because ethnic data is not always [...] 5 Kidney failure <15 (or dialysis) 20 [facility] Severe Sepsis and Septic Shock Management Bundle Measure requires all lactic acids initially measuring >2.0 mmol/L be repeated. 21 Interpretive information available on [facility] Test Catalog at [email or web address] 22 RESULTS VERIFIED BY REPEAT ANALYSIS 23 [...] 5 Kidney failure <15 (or dialysis) 25 SEE RESULTS BELOW [id number] ON PC TRANSFUSED 01/31/18 193 [id number] BN PC TRANSFUSED 02/01/18 1047 [id number] BN PC TRANSFUSED 01/31/18 1240 26 Because ethnic data is not always [...] 5 Kidney failure <15 (or dialysis) 27 [facility] Severe Sepsis and Septic Shock Management [...] [address]: Manas Villeda MD Acct: [id number] Unit: [id number] AGE: 76 Location: [facility] Re09/22/17 SEX: F Status: REG REF SPEC: [id number] OSCAR: 09/22/17-[address] [facility] [address]: Manas Villeda MD REQ: [id number] RECD: 09/22/17 STATUS: COMP _ SOURCE: URINE SPDESC: ORDERED: Urine Culture COMMENTS: [id number] kemp urine top Procedure Result Reported Site Urine Culture Final 09/24/17- 0724 ML Organism 1 KLEBSIELLA PNEUMONIAE [place] Count >100,000 (Many) CFU/ML 1. KLEBSIELLA PNEUMONIAE [...] . END OF REPORT DEPARTMENT OF PATHOLOGY, [address] [place] [address] Ramos Durand M.D. Director [facility] # [id number] 31 Normal Range 180 to 914 Indeterminate Range 145 to 180 Deficient Range <145 32 Test Performed by: [facility] - [address] [address] 33 >100 to <200 pg/mL: likely compensated [...] - FDP greater than 20 ug/ml 35 [facility] Severe Sepsis and Septic Shock Management [...] 38 99th percentile=0.04 ng/mL Troponin results at [facility] are not interchangeable. 39 [facility] Severe Sepsis and Septic Shock Management [...] 43 99th percentile=0.04 ng/mL Troponin results at [facility] and [facility] are not interchangeable. 44 Critical Result LACT:2.2 Called to [id number] at: 22:40:14 by:[id number] Read back by:[id number] [place] Severe Sepsis and Septic Shock Management [...] (or dialysis) 46 Result TnIDx:0.05 Called to [id number] at: 22:42:43 by:[id number] Read back by: [id number] 99th percentile=0.04 ng/mL Troponin results at [facility] and [facility] are not interchangeable. 47 Please note: The [...] assay has been determined at 0.01% (see [facility] Trov Interpretive Handbook for method details). Laboratory developed test. PDF Report available at: [email or web address] Test Performed by: [address] [address] Core Piler: Foreign Bee II, M.D., Ph.D. 59 27 [...] developed and its performance characteristics determined by [facility]. It has not been cleared or approved by the U.S. Food and Drug Administration. This FISH test does not rule out other chromosome abnormalities. 63 RESULT: Brian Dietrich MD, PhD 64 06 Oct 2014 08:23 Test Performed by: [address] [address] Core Piler: Foreign Bee II, M.D., Ph.D. 65 Negative [...] ANALYSIS Procedures Date Code Description Status 09/18/2018 39184 Brief Emotional/Behav Assessment W/ Scoring Doc Per Completed Standard Inst 07/16/2018 77458 Finger Or Heel Stick Completed 05/15/2018 19479 Pulse Oximetry Completed 04/20/2018 96713 Pulse Oximetry Completed 01/20/2017 [id number] Mammogram Completed 10/22/2016 77388 Pulse Oximetry Completed 10/08/2016 66246 Pulse Oximetry Completed 06/07/2016 38860 Pulse Oximetry Completed 04/26/2016 29535 Pulse Oximetry Completed 03/27/2016 52087 Pulse Oximetry Completed 02/07/2016 38150 Pulse Oximetry Completed 07/27/2015 43231282 Mammogram Completed 06/30/2015 20999 Pulse Oximetry Completed 10/10/2014 76883 Pulse Oximetry Completed 10/04/2014 55556 Nebulizer Treatment Completed 05/20/2014 35310863 Mammogram Completed 09/18/2013 [id number] Colonoscopy Completed Encounters Type Date Location Provider Dx Diagnosis Office Visit 09/18/2018 [facility] Office Veronica I25.119 [facility] 3: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, 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 R51 Headache R07.89 Other chest pain R53.83 Other fatigue Z13.31 Encounter for screening for depression Office Visit 07/16/2018 11:20a [facility] Office Sidra Cyr I25.119 [facility] Jeane Warner 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 D64.9 Anemia, unspecified Office Visit 05/20/2018 11:30a [facility] Office JOSE MARIA RussellP R05 Cough J18.1 Lobar pneumonia, unspecified organism R68.84 Jaw pain R51 Headache I20.0 Unstable angina Office Visit 05/15/2018 3:30p [facility] Office Veronica D64.9 Anemia, Amaris, 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 unspecified Z23 Encounter for immunization R53.83 Other fatigue J44.9 Chronic obstructive pulmonary disease, unspecified N18.4 Chronic kidney disease, stage 4 (severe) I20.0 Unstable angina M25.561 Pain in right knee M25.562 Pain in left knee Office Visit 04/20/2018 4:30p [facility] Brian Vergara J18.1 Lobar pneumonia, Office MD Taylor unspecified organism J44.9 Chronic obstructive pulmonary disease, unspecified G89.4 Chronic pain syndrome Office Visit 03/16/2018 2:30p [facility] Manas Arzate Z01.818 Encounter for other Office Jeane Villeda preprocedural examination H25.13 Age-related nuclear cataract, bilateral I25.119 [facility] 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 E03.9 Hypothyroidism, unspecified I10 Essential (primary) hypertension N18.4 Chronic kidney disease, stage 4 (severe) K21.9 Gastro-esophageal reflux disease without esophagitis J45.998 Other asthma 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, 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) G25.81 Restless legs syndrome I48.0 Paroxysmal atrial fibrillation G89.4 Chronic pain syndrome Office Visit 02/05/2018 11:00a [facility] Office Veronica R07.89 Other chest Amaris, 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 pain I20.0 Unstable angina R51 Headache G89.4 Chronic pain syndrome M79.604 Pain in right leg Office Visit 01/16/2018 11:00a [facility] Office Veronica M25.562 Pain in left Amaris, 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 knee M53.3 Sacrococcygeal disorders, not elsewhere classified R07.89 Other chest pain I20.0 Unstable angina R51 Headache G89.4 Chronic pain syndrome Office Visit 09/24/2017 4:00p [facility] Office Veronica R21 Rash and other Amaris, 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 nonspecific skin eruption W01.0xxA Fall same lev from slip/trip w/o strike against object, init R07.89 Other chest pain R06.02 Shortness of breath G89.4 Chronic pain syndrome K59.01 Slow transit constipation N39.42 Incontinence without sensory awareness G47.00 Insomnia, unspecified R60.0 Localized edema Office Visit 08/29/2017 10:00a [facility] Office Veronica J01.90 Acute sinusitis, Amaris, 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 unspecified R05 Cough K21.9 Gastro-esophageal reflux disease without esophagitis G89.4 Chronic pain syndrome R06.02 Shortness of breath M15.0 Primary generalized (osteo)arthritis I20.9 Angina pectoris, unspecified E03.9 Hypothyroidism, unspecified Office Visit 06/10/2017 3:30p Main Office Veronica Glez, M79.672 Pain in left 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 foot R29.6 Repeated falls R53.1 Weakness R51 Headache Office Visit 05/07/2017 4:15p [facility] Ver[place] Amaris, 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 R51 Headache D64.9 Anemia, unspecified R53.1 Weakness W17.89xA Other fall from one level to another, initial encounter J44.9 Chronic obstructive pulmonary disease, unspecified K21.9 Gastro-esophageal reflux disease without esophagitis R13.10 Dysphagia, unspecified G89.4 Chronic pain syndrome Office Visit 04/10/2017 2:30p [facility] Office Veronica Glez Z23 Encounter for 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 immunization M79.652 Pain in left thigh M79.651 Pain in right thigh N95.0 Postmenopausal bleeding G89.4 Chronic pain syndrome D64.9 Anemia, unspecified Office Visit 02/28/2017 [facility] Veronica N95.0 Postmenopausal 2:00p Office Amaris, 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 bleeding R51 Headache R06.02 Shortness of breath G89.4 Chronic pain syndrome D64.9 Anemia, unspecified Office Visit 12/24/2016 2:00p [facility] Veronica Z23 Encounter for Amaris, 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 immunization R51 Headache R60.0 Localized edema I48.91 Unspecified atrial fibrillation G89.4 Chronic pain syndrome R06.02 Shortness of breath K21.9 Gastro-esophageal reflux disease without esophagitis Office Visit 11/28/2016 3:45p Main Office Veronica Glez, 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 R51 Headache I48.91 Unspecified atrial fibrillation K25.7 Chronic gastric ulcer without hemorrhage or perforation G89.4 Chronic pain syndrome M79.644 Pain in right finger(s) Office Visit 11/08/2016 1:00p [facility] Veronica K25.7 Chronic gastric Amaris, 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 ulcer without hemorrhage or perforation I48.91 Unspecified atrial fibrillation R51 Headache M79.644 Pain in right finger(s) M15.0 Primary generalized (osteo)arthritis D64.9 Anemia, unspecified G89.4 Chronic pain syndrome Office Visit 10/22/2016 4:00p [facility] Veronica Raygozaart, 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 R51 Headache I48.91 Unspecified atrial fibrillation R05 Cough R06.02 Shortness of breath R09.02 Hypoxemia R11.10 Vomiting, unspecified Office Visit 10/08/2016 3:00p [facility] Office JOSE MARIA RussellP R51 Headache I48.91 Unspecified atrial fibrillation R05 Cough G89.4 Chronic pain syndrome M15.0 Primary generalized (osteo)arthritis R06.02 Shortness of breath Office Visit 09/16/2016 3:00p [facility] Office JOSE MARIA RussellP R51 Headache G89.4 Chronic pain syndrome M15.0 Primary generalized (osteo)arthritis D64.9 Anemia, unspecified Office Visit 08/14/2016 3:30p [facility] Office VY Russell R51 Headache M15.0 Primary generalized (osteo)arthritis R09.02 Hypoxemia G89.4 Chronic pain syndrome R31.9 Hematuria, unspecified D64.9 Anemia, unspecified Office Visit 06/07/2016 11:00a [facility] Office Veronica J01.90 Acute sinusitis, Amaris, 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 unspecified R51 Headache R53.82 Chronic fatigue, unspecified M79.7 Fibromyalgia M15.0 Primary generalized (osteo)arthritis Office Visit 04/26/2016 3:00p [facility] Office JOSE MARIA RussellP R51 Headache R53.82 Chronic fatigue, unspecified M79.7 Fibromyalgia M15.0 Primary generalized (osteo)arthritis R09.02 Hypoxemia D50.9 Iron deficiency anemia, unspecified Office Visit 04/10/2016 2:00p [facility] Office Veronica R53.82 Chronic fatigue, Amaris, 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 unspecified M79.7 Fibromyalgia M15.0 Primary generalized (osteo)arthritis R09.02 Hypoxemia D50.9 Iron deficiency anemia, unspecified J44.9 Chronic obstructive pulmonary disease, unspecified G47.62 Sleep related leg cramps Z23 Encounter for immunization Office Visit 03/27/2016 3:20p [facility] Office Manas Villeda M.D. R51 Headache R53.82 Chronic fatigue, unspecified E03.9 Hypothyroidism, unspecified Office Visit 02/07/2016 3:30p [facility] Office Veronica I10 Essential ( primary) AmarisJOSE MARIA moralesP hypertension E03.9 Hypothyroidism, unspecified M79.7 Fibromyalgia K21.9 Gastro-esophageal reflux disease without esophagitis G25.81 Restless legs syndrome M15.0 Primary generalized (osteo)arthritis G89.4 Chronic pain syndrome R09.02 Hypoxemia Office Visit 01/03/2016 3:40p [facility] Office Manas Arzate I10 Essential ( primary) Kellee Villeda. hypertension E03.9 Hypothyroidism, unspecified M79.7 Fibromyalgia K21.9 Gastro-esophageal reflux disease without esophagitis G25.81 Restless legs syndrome M15.0 Primary generalized (osteo)arthritis J45.998 Other asthma G89.4 Chronic pain syndrome R51 Headache Office Visit 09/06/2015 4:30p [facility] Veronica G89.4 Chronic pain Amaris, 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 syndrome M79.1 Myalgia M15.0 Primary generalized (osteo)arthritis Office Visit 08/11/2015 1:00p [facility] Office Veronica G89.4 Chronic pain Amaris, 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 syndrome M79.1 Myalgia M15.0 Primary generalized (osteo)arthritis Office Visit 06/30/2015 [facility] Ver[place] M15.0 Primary generalized 2:00p Office Amaris, 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 (osteo)arthritis D53.9 Nutritional anemia, unspecified M79.1 Myalgia G89.4 Chronic pain syndrome Office Visit 02/27/2015 [facility] Veronica 715.09 Osteoarthrosis 2:30p Office Amaris, 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 Generalized Multiple Sites 281.9 Anemia Deficiency Unspec 729.1 Myalgia & Myositis Unspec 782.3 Edema 338.4 Chronic Pain Syndrome Office Visit 01/09/2015 10:30a [facility] Veronica 274.00 Gouty Arthropathy, Office Amaris, 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 Unspecified 715.09 Osteoarthrosis Generalized Multiple Sites 281.9 Anemia Deficiency Unspec 729.1 Myalgia & Myositis Unspec 244.9 Hypothyroidism Other Unspec 724.5 Backache Unspec Office Visit 11/29/2014 11:45a Main Office Veronicakarla Glez, 333.94 Restless Legs 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 Syndrome 715.00 Osteoarthrosis Generalized Site Unspec 724.5 [...] Pain Chest Unspec Office Visit 10/04/2014 2:00p [facility] Office Veronica 465.9 URI Upper Amaris, 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 Respiratory Infections Acute Unspec Sites 786.2 Cough Office Visit 09/05/2014 3:00p [facility] Veronica 729.82 Cramp Of Limb Amaris, 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 465.9 URI Upper Respiratory Infections Acute Unspec Sites Office Visit 08/08/2014 3:00p [facility] Veronica 724.5 Backache Unspec Amaris, 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 281.9 Anemia Deficiency Unspec 729.1 Myalgia & Myositis Unspec 719.47 Pain Joint Ankle & Foot 244.9 Hypothyroidism Other Unspec Office Visit 07/04/2014 1:15p [facility] Veronica 790.21 Impaired Amaris, 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 Fasting Glucose 724.5 Backache Unspec 281.9 Anemia Deficiency Unspec 782.3 Edema Office Visit 06/13/2014 4:00p [facility] Office Veronica 729.1 Myalgia & Amaris, 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 Myositis Unspec 274.00 Gouty Arthropathy, Unspecified 715.09 Osteoarthrosis Generalized Multiple Sites 281.9 Anemia Deficiency Unspec Office Visit 06/06/2014 3:00p [facility] Office Veronica Amaris, 782.62 Flushing 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 530.81 Esophageal Reflux 729.1 Myalgia & Myositis Unspec Office Visit 05/02/2014 1:15p [facility] Office Veronica Amaris, 782.62 Flushing 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 530.81 Esophageal Reflux 787.02 Nausea Alone Office Visit 02/14/2014 2:20p [facility] Manas Arzate 782.62 [place] Office Jeane Villeda Office Visit 01/06/2014 7:00p Main Office Manas Arzate 782.62 Flubritney Villeda M.D. Office Visit 2013 8:30a Chuy Arzate 244.9 Hypothyroidism Other Office Jeane Villeda Unspec 274.00 Gouty Arthropathy, Unspecified 333.94 Restless Legs Syndrome 493.90 Asthma Unspec W/O Status Asthmaticus 782.3 Edema 715.09 Osteoarthrosis Generalized Multiple Sites 729.1 Myalgia & Myositis Unspec 530.81 Esophageal Reflux Plan of Treatment Future Appointment(s):03/25/2019 3:15 pm - VY Russell at [facility] [id number]/23/2018 - VY RussellJ02.9 Acute pharyngitis, unspecifiedNew Medication:Nystatin 702489 Unit/ML - 5 milliliters swish and spit orally four times a dayFluconazole 150 mg - 1 po daily x 2 days if liquid nystatin fails to resolve symptoms in 3-4 days ofuse Hold Amiodorone While Using DiflucanZithromax 250 mg - 2 by mouth every day today , then 1 by mouth every day times 4Comments:Start with warm salt water gargles and the NYSTATIN LIQUID-- Fri, on Friday no significant change, switch to ORAL FLUCONAZOLE --pillIf Friday, no significant change, or worse at any time, antibiotics Call MAREN if condition changes/worsens in any wayR05 DyhxyU91.02 VctnioymqM86.83 Other zclpjimA44.9 Anemia, unspecifiedAllComments:Medication Management Patient Understands medications he 's taking? Yes No Are there Barriers to Adherence? Yes No Has the patient been asked about herbal supplements and therapies, andOTC meds? Yes No As always, we strongly encourage a healthy diet and making physical activity a part of your every day life. If you have questions about how or where to start, please contact the office.
--- OUTSIDE RECORDS SUMMARY | 2018-11-20 17:37 | XMS REPORT | Continuity of Care Document ---
:1940 External Reference #:[id number] Author Name Elizabeth Titus Care Team Providers Name Role Phone Manas Villeda MD Primary Care Physician Unavailable Payers Date Identification Numbers Payment Provider Subscriber Effective: 2018 Policy Number: [id number] Medicare Jocelyne A Veronica PayID: [id number] [address] [place] [address] Effective: 2007 Policy Number: [id number] Medicare Jocelyne A Veronica Expires: 2018 PayID: [id number] [address] [place] [address] Policy Number: [id number] [facility] Jocelyne A Veronica PayID: [id number] [address] [place] [address] Effective: 2000 Policy Number: Jean Gil hopTo Jocelyne A Veronica [id number] Group Name: [employer] [address] [address] [place] [address] Advance Directives Description No Information Available Problems Date Description Provider Status Onset: 04/06/2015 Restless legs Jaziel Hurst M.D. Active Onset: 06/10/2016 Dyspnea Sharon Peter MD Active Onset: 06/10/2016 Asthma without status asthmaticus Sharon Peter MD Active Onset: 06/10/2016 Disturbance in sleep behavior Sharon Peter MD Active Onset: 06/10/2016 Morbid obesity Sharon Peter MD Active Onset: 02/03/2018 Encounter for planned Bennie Herron M.D., [facility], Active postprocedural wound closure [facility] Onset: [...] heart disease of Lennox Singh M.D. Active [place] coronary artery without angina pectoris Onset: 01/25/2018 Contusion of abdominal wall Lennox Singh M.D. Active Onset: 01/31/2018 Chest pain Shanda Gregory D.O. Active Onset: 01/31/2018 Hypothyroidism Shanda Gregory D.O. Active Onset: 02/01/2018 Chronic diastolic heart failure Shanda Gregory D.O. Active Onset: 02/01/2018 Hypertensive heart and chronic Shanda Gregory D.O. 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 019 every day Delgado, DO until seen FACC on 09/11 Colchicine Active Tablets 0.6mg 45tabs take 2 tabs Arnold Holguin 018 daily for 7 MD days. Then reduce to 1 tab daily. Plavix Active Tablets 75mg 90tabs Take one You S. 018 tablet by Danny, DO mouth daily FACC Electric Bed Active Electric R26.9 You SKandi 018 bed for Delgado, DO home use FAC I50.32 R60.0 Repatha Sureclick 12/03/2017 Active Solution 140mg/ml 2ml sc [id number] ( You Duggan Auto-Inject has not Delgado, started yet) DO FACC Amlodipine 08/20/2017 Active Tablets 10mg 90tab 1 by mouth I You Lewis. Besylate s every day 2 Delgado, 5 [...] for o2 Hydrocodone-Aceta Active Tablets 10/325 120ta 1-2 po Q4H Unknown minophen bs prn Singulair Active Tablets 10mg 30tab 1 po qd Unknown s Vitamin B Complex Active 1 po daily Unknown Albuterol Sulfate Active Nebulizer 2.5mg/3ML 100un qid prn neb Unknown 0.083% its Senna Active Tablets 8.6mg take 2 Unknown tablets by mouth twice a day Colace Active Capsules 100mg 2 cap po bid Unknown Fluticasone Active Suspension 110mcg/Act 1 sprays Unknown Propionate each nostril twice a day Multivitamin + Active Tablet 400mcg 1 tablet Unknown Folic Acid once a day Venlafaxine HCL Active Tablets 37.5mg 270ta 1 [...] sl q5mins You lewis x3 as needed Danny for chest DO FACC pain Shark Cartilage Active 500mg 2 by mouth Unknown twice a day Calcium& Active 750-465mg 1 po daily Unknown Magnesium Aspirin Ec Active Tablets DR 81mg 1 by mouth Unknown every day Acetaminophen Active Tablets 325mg 2 tablets by Unknown mouth every 6 hours as needed for pain/fever Vitamin D Active Tablets 1000Units 90tab 2 tabs by Unknown s mouth everyday Pramipexole Active Tablets 0.5mg 2mg (4 tabs) Unknown Dihydrochloride by mouth at bedtime Melatonin Active Capsules 10mg 1 tab by Unknown mouth at bedtime as needed for insomnia Ranitidine HCL Active Capsules 150mg 90cap Take 1 Benny lewis Capsule Rocael After Dinner ( taken 1 hour before supper) Omeprazole Active Capsules DR 40mg 90cap 1 by mouth You lewis every day Delgado, DO FACC Ferrous Sulfate Active Tablets 325(65Fe) 1 by mouth Unknown mg every day Metoprolol Active Tablets ER 25mg 1 by mouth Unknown Succinate ER 24HR twice a day Nasacort Allergy Active Aerosol 55mcg/Act 2 puffs each Unknown 24HR nare every day bid Primidone Active Tablets 50mg take 3 Unknown tablets (150 mg) by mouth at bedtime Isosorbide 07/23/2018 - Hx Tablets ER 120mg 180ta Take 2 I You S. Mononitrate ER 09/10/2018 24HR bs tablets by 4 Delgado, mouth (240 8 DO FACC mg) once a . day 0 Prednisone 07/07/2018 - Hx Tablets 20mg 14tab take 2 tab M Arnold 07/21/2018 s daily for 7 1 MD Ezio days. ( 0 Finished) . 0 7 2 Pantoprazole 05/18/2018 - Hx Tablets DR 20mg 30tab one each Benny Tolbert 05/30/2018 s morning Rocael, before MD breakfast Amiodarone HCL 05/01/2018 - Hx Tablets 100mg 90tab 1 by mouth You Duggan 07/23/2018 s every day, Delgado, use generic DO FACC Metoprolol 02/13/2018 - Hx Tablets 25mg Take two by You Duggan Tartrate 02/13/2018 mouth twice Delgado, a day DO FACC Metoprolol 02/13/2018 - Hx Tablets 25mg 180ta 1 by mouth Arnold Tartrate 08/10/2018 bs twice a day MD Ezio Brilinta 01/27/2018 - Hx Tablets 90mg 180ta [...] s mouth twice Delgado, daily DO FACC Isosorbide 08/22/2017 - Hx Tablets ER 120mg 90tab Take one I You Duggan Mononitrate ER 07/22/2018 24HR s tablet by 2 Delgado, mouth daily 5 DO FACC . 1 1 9 Omeprazole 06/27/2017 - Hx Capsules DR 40mg [...] every Jaziel S. 12/03/2016 bs night at [place], bedtime for M.D. 1 week then 2 every night at bedtime for 1 week then 3 every night at bedtime for 1 week then 4 Spiriva Respimat 06/10/2016 - Hx Aerosol 1.25mcg/Ac 12gm 2 puffs, J Sharon 05/21/2017 t daily 4 Elijah Peter MD . 9 0 9 Torsemide - Hx Tablets 10mg 100ta 1 po qd. Unknown 07/23/2018 bs Klor-Con M20 - Hx Tablets ER 20Meq [...] mouth Jaziel S. 02/02/2018 bs every night Aris, at bedtime [...] Tablets 200mg 90tab 1 by mouth You SKandi 05/01/2018 s once a Danny, day-on Hold DO FACC Metoprolol - Hx Tablets 25mg 180ta 1 by mouth You SKandi Tartrate 01/30/2018 bs twice a day DO [...] 1 by mouth Unknown 10/09/2017 every day Lisinopril - Hx Tablets 10mg 1 by mouth Unknown 09/10/2018 twice per day Isosorbide - Hx Tablets ER 60mg 4 by mouth I Unknown Mononitrate ER 07/23/2018 24HR every day 4 8 . 0 Medications Administered in Office Medication Date Status Form Strength Qnty SIG Indications Ordering Provider Technetium TC Administered Injection Ica Nuclear 99M 018 Schedule Tetrofosmin, Per Unit Dose Up To 40 Millicuries Inj, Administered Injection You S. Regadenoson, 018 Delgado, DO 0.1 MG FACC Technetium TC Administered Injection You S. 99M 018 Delgado, DO Tetrofosmin, FACC Per Unit Dose Up To 40 Millicuries Immunizations CPT Code Status Date Vaccine Lot # [id number] Given 06/28/1997 Flu Vaccine Vital Signs Date Vital Result Comment 10/23/2018 10:23am Weight 238.00 lb Heart Rate [...] Result H/L Range Note Basic Metabolic 07/15/2018 [facility] Sodium 138 mmol/L N 135- 145 Panel [address] [place] [address] [phone] Chloride 107 mmol/L N 101-111 Co2 Carbon Dioxide 27 mmol/L N 22-32 Glucose 98 mg/dL N 70-100 Blood Urea Nitrogen 46 mg/dL High 6-24 Creatinine 1.45 mg/dL High 0.51-0.95 BUN/Creatinine Ratio 31.7 High 8-20 Calcium 8.8 mg/dL N 8.6-10.3 Egfr Non- 34.9 >60 Egfr 42.3 >60 1 Potassium 5.2 mmol/L High 3.5-5.0 Anion Gap 4 mmol/L N 2-11 Urinalysis Profile 07/02/2018 [facility] Urine Color Yellow [address] [place] [address] [phone] Urine Appearance Cloudy Urine Specific [place] 1.013 N 1.010-1.030 Urine pH 6.0 N [...] Present Abnormal Absent CBC Auto Diff 07/02/2018 [facility] White Blood 4.5 10^3/uL N 3.5-10.[address] [place] [address] [phone] Red Blood Count 3.35 10^6/uL Low 4.00-5.40 [...] Blood Cells % 0 Laboratory test 07/02/2018 [facility] Uric Acid 8.0 mg/dL High 2.3-6.[address] [place] [address] [phone] Urine Culture And 07/02/2018 [facility] Urine SEE RESULT [address] [place] [address] [phone] CBC Auto Diff 06/02/2018 [facility] White Blood 5.3 N 3.5- 10.[address] Count 10^3/[place] [address] [phone] Red Blood Count 3.52 10^6/uL Low 4.00-5.40 [...] Blood Cells % 0 Laboratory test 06/02/2018 [facility] Uric Acid 7.7 mg/dL High 2.3-6.[address] [place] [address] [phone] Urinalysis 06/02/2018 [facility] Urine Color Yellow Profile [address] [place] [address] [phone] Urine Appearance Clear Urine Specific [place] 1.013 N 1.010-1.030 Urine pH 6.0 N [...] Present Abnormal Absent Urine Culture And 06/02/2018 [facility] Urine Culture SEE RESULT [address] [place] [address] [phone] CBC No Diff 02/05/2018 [facility] White Blood 6.5 10^3/uL N 3.5-[address] Count .8 [place] [address] [phone] Red Blood Count 3.52 10^6/uL Low 4.00-5.40 [...] um3 N 7.4-10.4 CBC Auto Diff 02/03/2018 [facility] White Blood 7.0 10^3/uL N 3.5-10.[address] [place] [address] [phone] Red Blood Count 3.44 10^6/uL Low 4.00-5.40 [...] Blood Cells % 0 Laboratory test 01/20/2018 [facility] TSH (Thyroid 8.23 High 0.34-5.[address] Stim Horm) mcIU/[place] [address] [phone] Free T4 (Free Thyroxine) 1.17 ng/dL High 0.61-1.12 Cath Panel 01/20/2018 [facility] Partial 26.2 seconds N 26.0- 36.[address] [place] [address] PTT [phone] Inr/Protime 01/20/2018 [facility] Inr 0.93 N 0.77-1.[address] [place] [address] [phone] CBC Auto 01/20/2018 [facility] White Blood 6.4 10^3/uL N 3.5- 10.[address] [place] [address] [phone] Red Blood Count 2.91 10^6/uL Low 4.00-5.40 [...] Cells % 0 Comp Metabolic Panel 01/20/2018 [facility] Sodium 138 mmol/L N 135-[address] [place] [address] [phone] Chloride 101 mmol/L N 101-111 Co2 Carbon [...] 9 mmol/L N 2-11 Laboratory test 01/20/2018 [facility] Ferritin 151.0 N 11-[address] ng/[place] [address] [phone] Laboratory test 08/15/2017 [facility] LDL Cholesterol 103 mg/dL [address] [place] [address] [phone] TSH (Thyroid Stim Horm) 15.82 mcIU/mL High 0.34-5.60 Laboratory test 06/26/2017 [facility] Magnesium 1.8 mg/dL Low 1.9-2.[address] [place] [address] [phone] Free T4 (Free Thyroxine) 1.19 ng/dL High 0.61-1.12 TSH (Thyroid Stim Horm) 10.61 mcIU/mL High 0.34-5.60 B-Type Natriuretic Peptide BNP 351 pg/mL High 9 Comp Metabolic Panel 06/26/2017 [facility] Sodium 138 mmol/L N 133-[address] [place] [address] [phone] Potassium 4.0 mmol/L N 3.5-5.0 Chloride 102 [...] Non- 38.0 >60 Egfr 48.9 >60 10 Laboratory test 06/26/2017 [facility] LDL Cholesterol 126 mg/dL [address] [place] [address] [phone] Basic Metabolic 06/11/2016 [facility] Sodium 136 mmol/L N 133- [address] [place] [address] [phone] Potassium 5.2 mmol/L High 3.5-5.0 Chloride 106 [...] [address]: Arnold Holguin MD Acct: [id number] Unit: [id number] AGE: 77 Location: [facility] Re07/02/18 SEX: F Status: REG REF SPEC: [id number] OSCAR: 07/02/[address] [facility] [address]: Arnold Holguin MD REQ: [id number] RECD: 07/02/18 STATUS: FRANKI DE JESUS DR: Avinash Romero MD _ SOURCE: URINE SPDESC: ORDERED: Urine Culture Procedure Result Reported Site Urine Culture Final 07/04/18- 826 ML Organism 1 STAPHYLOCOCCUS EPIDERMIDIS Dawes Count 75-100,000 (Many) CFU/ML 1. STAPHYLOCOCCUS EPIDERMIDIS M.I.C. RX --------- ------ Penicillin >=0.5 R Gentamicin <=0.5 S Linezolid 1 S Nitrofurantoin <=16 S Oxacillin >=4 R * Quinupristin/Dalfopristin <=0.25 S Rifampin <=0.5 S Tetracycline >=16 R Tigecycline <=0.12 S Vancomycin 1 S Imipenem-Deduced R * Ampicillin/Sulbactam-Deduced R Cefazolin-Deduced R * These antibiotics are not available in the [facility] Formulary Contact the Microbiology Department for any additional antibiotic reporting. * ML - Main Lab . END OF REPORT DEPARTMENT OF PATHOLOGY, [address] [place] [address] Ramos Durand M.D. Director [facility] # [id number] 4 *Ascorbic acid is present which may interfere with detection of blood. 5 SEE RESULT BELOW Name: JOCELYNE MARTIN : [address]: Arnold Hogluin MD Acct: [id number] Unit: [id number] AGE: 77 Location: LAB Re06/02/18 SEX: F Status: REG REF SPEC: [id number] OSCAR: 06/02/18-[address] [facility] [address]: Arnold Holguin MD REQ: [id number] RECD: 06/04/18 STATUS: COMP _ SOURCE: URINE SPDESC: ORDERED: Urine Culture Urine Source: Clean Catch Procedure Result Reported Site Urine Culture Final 06/05/18- 926 ML No growth of clinically significant organisms * ML - Main Lab . END OF REPORT DEPARTMENT OF PATHOLOGY, [address] [place] [address] Ramos Durand M.D. Director [facility] # [id number] HERRON CELL PHONE [phone] 7 Because ethnic data is not always [...] pg/mL: likely moderate to severe CHF 10 Because ethnic data is not always [...] 5 Kidney failure <15 (or dialysis) 11 Desirable: <100 Near Optimal: 100-129 Borderline High: 130-159 High: 160-189 Very High: >189 12 Because ethnic data is not always [...] (or dialysis) Procedures Date Code Description Status 09/11/2018 17141 EKG Tracing & Interpretation Completed 07/19/2018 60209 EKG, Interpretation Only Completed 06/26/2018 63590 EKG Tracing & Interpretation Completed 04/09/2018 55547 EKG Tracing & Interpretation Completed 03/25/2018 69939 Stress Test Completed 03/25/2018 55917 Myocardial Perfusion Imaging Tomographic (Spect) Completed Multiple Studies 02/03/2018 53318 EKG Tracing & Interpretation Completed 01/31/2018 88606 EKG, Interpretation Only Completed 01/26/2018 48448 EKG, Interpretation Only Completed 01/25/2018 68813 ECHO Transthorasic Realtime 2D W Doppler & Color Flow Completed Hosp 01/24/2018 23141 EKG, Interpretation Only Completed 01/24/2018 28564 Insert Non-Tunneled Venous Catether Completed 01/23/2018 99071 Percutaneous Transcatheter Placement Of Intracoronary Completed Stent 01/23/2018 84475 EKG, Interpretation Only Completed 01/23/2018 58788 Cath PLMT&NJX L Ventriculog Img S&I Completed 01/16/2018 43740 EKG Tracing & Interpretation Completed 12/30/2017 73499 EKG Tracing & Interpretation Completed 12/29/2017 54899 Diffusing Capacity Completed 12/29/2017 42560 Pulmonary Function><Bronchodil Completed 12/03/2017 50218 EKG Tracing & Interpretation Completed 10/10/2017 40511 EKG Tracing & Interpretation Completed 05/23/2017 15375 EKG Tracing & Interpretation Completed 10/14/2016 79246 ECHO Transthorasic Realtime 2D W Doppler & Color Flow Completed Hosp 10/11/2016 72882 EKG, Interpretation Only Completed 10/01/2016 08108 Cath PLMT&NJX L Ventriculog Img S&I Completed 09/29/2016 88843 EKG, Interpretation Only Completed 09/28/2016 58001 EKG, Interpretation Only Completed 09/26/2016 90877 Treadmill Interp/Report Only Completed 09/26/2016 61444 Stress Test Supervsn W/Out I/R Completed 09/25/2016 24038 Color Flow Doppler/Interp & Reprt Completed 09/25/2016 80738 Pulse Wave/Continuous-Interp.RPT Completed 09/25/2016 22216 Echocardiography, Transesophageal, Real Time W/Image Completed 2D W/W/O M-M 09/25/2016 71619 Cardioversion Completed 08/06/2016 933209170 Diabetic Retinal Eye Exam Completed 07/04/2016 65696 Diffusing Capacity Completed 07/04/2016 40743 Plethysmography Determination Lung Volumes & Per Completed Airway Resist 07/04/2016 67728 Pulmonary Function><Bronchodil Completed 07/03/2016 14998 Polysomnography Sleep Staging 4+ Parameters Completed 01/04/2016 22792 Nerve Conduction 01-02 Studies Completed 03/18/2012 46151 Nerve Conduction, Sensory Completed 03/18/2012 76739 Nerve Conduction, Motor W/O F-Wave Study Completed 02/18/2011 72015 Remove Impacted Cerumen Completed 05/07/2005 61900 Treadmill Interp/Report Only Completed 05/07/2005 92310 Stress Test Supervsn W/Out I/R Completed 01/24/1999 46166 Intramuscular Injection Completed 01/17/1999 16576 Intramuscular Injection Completed 01/11/1999 65030 Intramuscular Injection Completed 01/03/1999 73967 Intramuscular Injection Completed 12/27/199887611 Intramuscular Injection Completed 12/20/199880853 Intramuscular Injection Completed 12/13/199870625 Intramuscular Injection Completed 12/06/199880300 Intramuscular Injection Completed Encounters Type Date Location Provider Dx Diagnosis Office Visit 09/11/2018 [facility] You Delgado, Z95.1 Presence of 4:00p Of Mining Consultant DO FACC aortocoronary bypass graft 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[place] coronary artery w/o ang pctrs I48.0 Paroxysmal atrial fibrillation D64.89 Other specified anemias I50.32 Chronic diastolic (congestive) heart failure E66.8 Other obesity E03.9 Hypothyroidism, unspecified G25.0 Essential tremor N18.9 Chronic kidney disease, unspecified D47.1 Chronic myeloproliferative disease I10 Essential (primary) hypertension E78.5 Hyperlipidemia, unspecified Office Visit 07/23/2018 3:40p [facility] You Duggan I48.0 Paroxysmal atrial Of Karina Delgado, DO fibrillation FACC I25.119 [facility] heart disease of [place] cor art w unsp ang pctrs D64.89 Other specified anemias I50.32 Chronic diastolic (congestive) heart failure E66.8 Other obesity E03.9 Hypothyroidism, unspecified G25.0 Essential tremor N18.9 Chronic kidney disease, unspecified I11.0 Hypertensive heart disease with heart failure [facility]8 Other forms of Assoc,carli Connolly M.D. angina pectoris Hospitalists E87.5 Hyperkalemia I48.0 Paroxysmal atrial fibrillation N18.3 Chronic kidney disease, stage 3 (moderate) Office Visit 07/19/2018 11:24a [facility] Saad Hoskins R07.9 Chest pain, Of Karina Holley M.D., unspecified FACC, FASNC Z98.61 Coronary angioplasty status I25.2 Old myocardial infarction Office Visit 07/19/2018 9:14a [facility] I20.9 Angina pectoris, Assoc,carli Connolly M.D. 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 I25.119 [place] heart disease of [place] cor art w unsp ang pctrs D64.89 Other specified anemias I50.32 Chronic diastolic (congestive) heart failure I48.0 Paroxysmal atrial fibrillation N18.3 Chronic kidney disease, stage 3 (moderate) Office Visit 06/26/2018 10:40a Cardiology You Duggan I25.119 [facility] heart Services Of [facility] AT [facility], DO disease of [facility] [place] cor art w unsp ang pctrs D64.89 Other specified anemias I48.0 Paroxysmal atrial fibrillation N18.3 Chronic kidney disease, stage 3 (moderate) I25.2 Old myocardial infarction I50.32 Chronic diastolic (congestive) heart failure I11.0 Hypertensive heart disease with heart failure E03.9 Hypothyroidism, unspecified D47.1 Chronic myeloproliferative disease Office Visit 06/09/2018 [facility] Avinash Romero, D47.1 Chronic 11:00a Center Karina Ching myeloproliferative AT [facility] I20.9 Angina pectoris, unspecified D64.89 Other specified anemias Office Visit 06/02/2018 1:00p [facility] Arnold Holguin, D64.9 Anemia, [facility] unspecified I20.9 Angina pectoris, unspecified I48.0 Paroxysmal atrial fibrillation M54.5 Low back pain N18.3 Chronic kidney disease, stage 3 (moderate) I11.0 Hypertensive heart disease with heart failure 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, left ankle and foot N39.0 Urinary tract infection, site not specified Office Visit 05/18/2018 3:15p [facility] Benny Vergara E66.8 Other obesity MD Rocael M48.07 Spinal stenosis, lumbosacral region G44.221 Chronic tension-type headache, intractable R10.9 Unspecified abdominal pain K59.00 Constipation, unspecified Office Visit 05/12/2018 [facility] Avinash Romero, D47.1 Chronic 2:40p Center Of Karina Ching myeloproliferative AT [place] disease D64.9 Anemia, unspecified Office Visit 05/01/2018 11:15a Cardiology You Duggan I25.119 [facility] AT Delgado, DO disease of [place] FAC [place] cor art w unsp ang pctrs I48.0 Paroxysmal atrial fibrillation N18.9 Chronic kidney disease, unspecified I25.2 Old myocardial infarction I11.0 Hypertensive heart disease with heart failure E66.8 Other obesity I50.32 Chronic diastolic (congestive) heart failure G25.81 Restless legs syndrome D64.9 Anemia, unspecified E03.9 Hypothyroidism, unspecified Office Visit 04/30/2018 [place] Jaziel Duggan I20.9 Angina pectoris, 3:15p Neurolog[facility] Serv Of Jeane Hurst unspecified [facility] G44.221 Chronic tension-type headache, intractable G25.0 Essential tremor M48.07 Spinal stenosis, lumbosacral region Office Visit 04/15/2018 10:59a [facility] Maryjane Pauline, J18.9 Pneumonia, Assoc,pc [employer] TENDER unspecified Hospitalists organism R07.9 Chest pain, unspecified J96.11 Chronic respiratory failure with hypoxia N18.3 Chronic kidney disease, stage 3 (moderate) Office Visit 04/14/2018 2:28p [facility] Delroy Forte I25.10 [facility] heart Of Karina Hilliard M.D. disease of [place] coronary artery w/o ang pctrs J18.9 Pneumonia, unspecified organism R79.89 Other specified abnormal findings of blood chemistry Office Visit 04/14/2018 10:58a [facility] Maryjane Pauline, J18.9 Pneumonia, Assoc,pc MUFFLER TENDER unspecified Hospitalists organism R07.9 Chest pain, unspecified J96.11 Chronic respiratory failure with hypoxia N18.3 Chronic kidney disease, stage 3 (moderate) Office Visit 04/13/2018 3:14p [facility] Dleroy Forte R07.89 Other chest Of Karina Hilliard M.D. pain R79.89 Other specified abnormal findings of blood chemistry J18.9 Pneumonia, unspecified organism 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[place] coronary artery w/o ang pctrs J40 Bronchitis, not specified as acute or chronic Office Visit 04/13/2018 10:58a [facility] Maryjane Pauline, J18.9 Pneumonia, Assoc,pc [employer] TENDER unspecified Hospitalists organism R07.9 Chest pain, unspecified I10 Essential (primary) hypertension J96.11 Chronic respiratory failure with hypoxia N18.3 Chronic kidney disease, stage 3 (moderate) Office Visit 04/12/2018 [facility] Bautist[place]at J18.9 Pneumonia, 10:57a Assoc,pc PHYLLIS Collazo unspecified Hospitalists organism N18.3 Chronic kidney disease, stage 3 (moderate) I48.91 Unspecified atrial fibrillation E03.9 Hypothyroidism, unspecified Office Visit 04/09/2018 3:40p [facility] You Duggan I25.2 Old myocardial Of [facility] Delgado, DO infarction FAC 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[place] coronary artery w/o ang pctrs I50.32 Chronic diastolic (congestive) heart failure I11.0 Hypertensive heart disease with heart failure I48.0 Paroxysmal atrial fibrillation D64.9 Anemia, unspecified E66.8 Other obesity E03.9 Hypothyroidism, unspecified Office Visit 02/26/2018 1:30p Pulmonology And Sharon R06.02 Shortness of Sleep Services Of MD Brittani breath [facility] J45.20 Mild intermittent asthma, uncomplicated G47.33 Obstructive sleep apnea (adult) (pediatric) Office Visit 02/17/2018 [place] [facility] Avinash Romero, D47.1 Chronic 3:00p Center Of Karina Ching myeloproliferative AT [place] disease D64.9 Anemia, unspecified I21.4 Non-St elevation (Nstemi) myocardial infarction Office Visit 02/13/2018 10:20a Cardiology You Duggan I25.2 Old myocardial Services Of [facility] Delgado, DO infarction AT [place] FAC I25.119 [place] heart disease of [place] cor art w unsp ang pctrs I50.32 Chronic diastolic (congestive) heart failure I48.0 Paroxysmal atrial fibrillation N18.9 Chronic kidney disease, unspecified D64.9 Anemia, unspecified E66.8 Other obesity E03.9 Hypothyroidism, unspecified Office Visit 02/03/2018 [facility] Bennie Herron, Z48.812 Encntr for 2:40p Of Mining Consultant AT [facility] Jeane, FAC, surgical aftcr FSCAI following surgery on the circ sys Office Visit 02/02/2018 [facility] Shanda I20.9 Angina pectoris, 1:14p Assoc,carli Gregory D.O. unspecified Hospitalists I50.32 Chronic diastolic (congestive) heart failure I48.0 Paroxysmal atrial fibrillation I11.0 Hypertensive heart disease with heart failure Office Visit 02/01/2018 [facility] Shanda I50.32 Chronic diastolic 1:14p Assoc,carli Gregory D.O. 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 Shanda D64.9 Anemia, Assoc,carli Gregory D.O. unspecified Hospitalists R07.9 Chest pain, unspecified I48.91 Unspecified atrial fibrillation E03.9 Hypothyroidism, unspecified G25.81 Restless legs syndrome Office Visit 01/31/2018 1:29p [facility] Saadanthony Hoskins R07.9 Chest pain, Of Karina Holley M.D., unspecified FACC, FASGA Office Visit 01/27/2018 11:56a [facility] [place] I20.0 Unstable angina Asscarli dickinson Hospitalists M.D. G25.81 Restless legs syndrome J96.11 Chronic respiratory failure with hypoxia I48.91 Unspecified atrial fibrillation S30.1xxA Contusion of abdominal wall, initial encounter D64.9 Anemia, unspecified Office Visit 01/26/2018 [facility] J96.21 Acute and chronic 11:56a Asscarli dickinson M.D. 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 J96.21 Acute and chronic 11:55a Asscarli dickinson M.D. 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 J96.21 Acute and chronic 11:54a Assoccarli M.D. 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 I48.91 Unspecified 11:52a Asscarli dickinson M.D. atrial Hospitalists fibrillation J96.21 Acute and chronic respiratory failure with hypoxia I48.0 Paroxysmal atrial fibrillation N18.3 Chronic kidney disease, stage 3 (moderate) K25.9 Gastric ulcer, unsp as acute or chronic, w/o hemor or perf Office Visit 01/22/2018 9:22a [facility] Bennie Herron, R07.9 Chest pain, Of Mining Consultant AT [facility], [facility], unspecified FSCAI R79.89 Other specified abnormal findings of blood chemistry Office Visit 01/22/2018 11:52a [facility] I20.9 Angina pectoris, Assoccarli M.D. unspecified Hospitalists N18.9 Chronic kidney disease, unspecified I48.91 Unspecified atrial fibrillation D64.9 Anemia, unspecified Office Visit 01/21/2018 12:37p [facility] Delroy Forte I25.110 [facility] heart Of Karina Hilliard M.D. disease of [place] cor art w unstable ang pctrs Office Visit 01/21/2018 11:50a [facility] Bryson I20.0 Unstable Assoc,carli Steiner M.D. angina Hospitalists I48.91 Unspecified atrial fibrillation G47.33 Obstructive sleep apnea (adult) (pediatric) N18.9 Chronic kidney disease, unspecified J96.10 Chronic respiratory failure, unsp w hypoxia or hypercapnia Office Visit 01/20/2018 [facility] [facility] Avinashvilma Romero, D47.1 Chronic 2:40p Center Of Karina Ching myeloproliferative AT [place] disease D53.9 Nutritional anemia, unspecified Office Visit 01/16/2018 3:40p [facility] You Duggan I20.0 Unstable angina Of Karina Delgado, DO FACC I25.119 [place] heart disease of [place] cor art w unsp ang pctrs D64.9 Anemia, unspecified N18.9 Chronic kidney disease, unspecified I48.0 Paroxysmal atrial fibrillation I50.32 Chronic diastolic (congestive) heart failure I25.2 Old myocardial infarction E78.5 Hyperlipidemia, unspecified Z87.11 Personal history of peptic ulcer disease E03.9 Hypothyroidism, unspecified Office Visit 12/30/2017 3:20p [facility] You Duggan I25.119 [place] heart Of Karina Delgado DO disease of FACC [place] cor art w unsp ang pctrs D64.9 Anemia, unspecified N18.9 Chronic kidney disease, unspecified I48.0 Paroxysmal atrial fibrillation I50.32 Chronic diastolic (congestive) heart failure Z87.11 Personal history of peptic ulcer disease E66.8 Other obesity I25.2 Old myocardial infarction E78.5 Hyperlipidemia, unspecified Office Visit 12/11/2017 [place] carmen Duggan G43.009 Migraine w/o 3:45p Neurologic Serv Of Jeane Hurst aura, not [facility] intractable, w/o status migrainosus G89.4 Chronic pain syndrome G44.221 Chronic tension-type headache, intractable Office Visit 12/03/2017 12:00p [facility] Of You Delgado, DO R51 Headache [facility] FACC I25.119 [place] heart disease of [place] cor art w [facility] ang pctrs E78.5 Hyperlipidemia, unspecified I48.0 Paroxysmal atrial fibrillation N18.9 Chronic kidney disease, unspecified I50.32 Chronic diastolic (congestive) heart failure Z87.11 Personal history of peptic ulcer disease E66.01 Morbid (severe) obesity due to excess calories D64.9 Anemia, unspecified Office Visit 11/11/2017 [facility] [facility] Avinash Velasquezmegan, D47.1 Chronic 4:00p Center Of Karina Ching myeloproliferative AT [facility] D53.9 Nutritional anemia, unspecified Office Visit 10/16/2017 [place] Jaziel ShylaKandi G25.0 Essential 11:30a Neurologic Serv Of Jeane Hurst tremor [facility] R51 Headache I25.119 [place] heart disease of [place] cor art w [facility] ang pctrs Office Visit 10/10/2017 10:20a Cardiology You SKandi I25.119 [place] heart Services Of [facility] AT [facility] disease of [facility] [place] cor art [facility] ang pctrs I48.0 Paroxysmal atrial fibrillation E78.5 Hyperlipidemia, unspecified E03.9 Hypothyroidism, unspecified N18.9 Chronic kidney disease, unspecified I50.32 Chronic diastolic (congestive) heart failure D64.9 Anemia, unspecified Z87.11 Personal history of peptic ulcer disease Office Visit 08/22/2017 11:00a Cardiology You SKandi I25.119 [place] heart Services Of [facility] AT [facility] disease of [facility] [place] cor art [facility] pctrs E66.01 Morbid (severe) obesity due to excess calories I48.0 Paroxysmal atrial fibrillation E78.5 Hyperlipidemia, unspecified E03.9 Hypothyroidism, unspecified I50.32 Chronic diastolic (congestive) heart failure N18.9 Chronic kidney disease, unspecified D64.9 Anemia, unspecified Z87.11 Personal history of peptic ulcer disease Office Visit 08/19/2017 [place] [facility] Avinash Romero, D47.1 Chronic 4:00p Center Of Karina Chnig myeloproliferative AT [facility] R53.83 Other fatigue D53.9 Nutritional anemia, unspecified Office Visit 07/01/2017 Pulmonology And [place] J45.20 Mild intermittent 1:30p Sleep Services Of MD Brittani asthma, [facility] uncomplicated E66.01 Morbid (severe) obesity due to excess calories Office Visit 06/27/2017 9:40a Cardiology You SKandi I25.119 [place] heart Services Of [facility] AT [facility], disease of [facility] [place] cor art w unsp ang pctrs I48.0 Paroxysmal atrial fibrillation E78.5 Hyperlipidemia, unspecified E03.9 Hypothyroidism, unspecified I50.32 Chronic diastolic (congestive) heart failure N18.9 Chronic kidney disease, unspecified E66.01 Morbid (severe) obesity due to excess calories D64.9 Anemia, unspecified Z87.11 Personal history of peptic ulcer disease Office Visit 06/18/2017 4:00p [place] [facility] Jaziel Duggan I20.8 Other forms of Services Of [facility] Jeane Hurst angina pectoris R51 Headache G25.0 Essential tremor Office Visit 05/23/2017 10:40a Cardiology You S. I25.[address] [place] [address] Services Of [facility], disease of [facility] [place] cor art w [facility] pctrs I48.0 Paroxysmal atrial fibrillation I50.9 Heart failure, unspecified E03.9 Hypothyroidism, unspecified Z87.11 Personal history of peptic ulcer disease D64.9 Anemia, unspecified N18.9 Chronic kidney disease, unspecified E78.5 Hyperlipidemia, unspecified R06.02 Shortness of breath Office Visit 05/01/2017 4:00p [place] Jaziel Hurst, R51 Headache Neurologic Serv Of [facility] Jeane I20.8 Other forms of angina pectoris Office Visit 04/01/2017 3:40p [place] [facility] Avinash Romero, D64.9 Anemia, Center Of [facility] AT YogeshDKandi unspecified [place] Office Visit 12/30/2016 1:00p Pulmonology And Sharon R06.02 Shortness of Sleep Services Of MD Brittani breath [facility] J45.20 Mild intermittent asthma, uncomplicated G47.33 Obstructive sleep apnea (adult) (pediatric) E66.01 Morbid (severe) obesity due to excess calories Office Visit 10/16/2016 10:21a [facility] R06.02 Shortness of Assoc,carli Varner, [employer] T[employer]ER breath Hospitalists I50.9 Heart failure, unspecified E03.9 Hypothyroidism, unspecified J18.1 Lobar pneumonia, unspecified organism Office Visit 10/15/2016 2:45p Pulmonology And [place] J12.9 Viral pneumonia, Sleep Services Of MD Brittani unspecified Mining Consultant J45.21 Mild intermittent asthma with (acute) exacerbation I50.31 Acute diastolic (congestive) heart failure Office Visit 10/15/2016 10:16a [facility] R06.02 Shortness of Assoc,carli Varner, [employer] breath Hospitalists E03.9 Hypothyroidism, unspecified I50.9 Heart failure, unspecified J18.1 Lobar pneumonia, unspecified organism Office Visit 10/14/2016 2:44p Pulmonology And [place] J45.21 Mild intermittent Sleep Services Of MD Brittani asthma with Mining Consultant (acute) exacerbation J12.9 Viral pneumonia, unspecified Office Visit 10/14/2016 10:16a [facility] R06.02 Shortness of Assoc,carli Varner, [employer] breath Hospitalists E03.9 Hypothyroidism, unspecified I50.9 Heart failure, unspecified J18.1 Lobar pneumonia, unspecified organism Office Visit 10/13/2016 [facility] R06.02 Shortness of 10:15a Assoccarli, [employer]ER breath Hospitalists E03.9 Hypothyroidism, unspecified I50.9 Heart failure, unspecified J18.1 Lobar pneumonia, unspecified organism Office Visit 10/12/2016 [facility] R06.02 Shortness of 10:14a Assoccarli, [employer]ER breath Hospitalists I50.9 Heart failure, unspecified E03.9 Hypothyroidism, unspecified J18.1 Lobar pneumonia, unspecified organism Office Visit 10/11/2016 10:14a [facility] R06.02 Shortness of Assoc,carli Varner, [employer] breath Hospitalists E03.9 Hypothyroidism, unspecified I50.9 Heart failure, unspecified J18.1 Lobar pneumonia, unspecified organism Office Visit 10/10/2016 10:13a [facility] R06.02 Shortness of Assoc,carli Varner, [employer]ER breath Hospitalists E03.9 Hypothyroidism, unspecified I50.9 Heart failure, unspecified Office Visit 10/09/2016 10:12a [facility] Favio Mcqueen, R06.02 Shortness of Assoccalri M.D. breath Hospitalists E03.9 Hypothyroidism, unspecified I50.9 Heart failure, unspecified Office Visit 10/03/2016 9:29a [facility] [place] I21.4 Non-St elevation Assoc,carli Singh M.D. (Nstemi) Hospitalists myocardial infarction I48.91 Unspecified atrial fibrillation J45.20 Mild intermittent asthma, uncomplicated G47.33 Obstructive sleep apnea (adult) (pediatric) Office Visit 10/02/2016 9:28a [facility] I21.4 Non-St elevation Assoc,carli Singh M.D. (Nstemi) Hospitalists myocardial infarction I48.91 Unspecified atrial fibrillation J45.20 Mild intermittent asthma, uncomplicated G47.33 Obstructive sleep apnea (adult) (pediatric) Office Visit 10/02/2016 1:07p [facility] Amber Kaminski, [facility]25.10 [facility] Jeane disease of [place] coronary artery w/o ang pctrs I48.91 Unspecified atrial fibrillation Office Visit 10/01/2016 9:28a [facility] Capri I21.4 Non-St elevation Assoccarli M.D. (Nstemi) Hospitalists myocardial infarction I48.91 Unspecified atrial fibrillation J45.20 Mild intermittent asthma, uncomplicated G47.33 Obstructive sleep apnea (adult) (pediatric) Office Visit 09/30/2016 9:27a [facility] [place] I21.4 Non-St elevation Assoccarli M.D. (Nstemi) Hospitalists myocardial infarction I48.91 Unspecified atrial fibrillation J45.20 Mild intermittent asthma, uncomplicated Office Visit 09/29/2016 9:27a [facility] [place] I21.4 Non-St elevation Assoccarli M.D. (Nstemi) Hospitalists myocardial infarction I48.91 Unspecified atrial fibrillation J45.20 Mild intermittent asthma, uncomplicated Office Visit 09/29/2016 1:06p [facility] Zack Pina I20.9 Angina pectorisTito M.D. unspecified I48.91 Unspecified atrial fibrillation Office Visit 09/28/2016 9:26a [facility] [place] I21.4 Non-St elevation Assoc,carli Connolly M.D. (Nstemi) Hospitalists myocardial infarction I48.91 Unspecified atrial fibrillation J45.20 Mild intermittent asthma, uncomplicated G47.33 Obstructive sleep apnea (adult) (pediatric) Office Visit 09/27/2016 [facility] Daniela John, R01.1 Cardiac murmur, 9:26a Assoc,carli Ching unspecified Hospitalists I48.91 Unspecified atrial fibrillation J45.20 Mild intermittent asthma, uncomplicated Office Visit 09/27/2016 1:05p [facility] Zack Pina I21.4 Non-St elevation Jeane Francis (Nstemi) myocardial infarction Office Visit 09/26/2016 9:26a [facility] [place] R07.1 Chest pain on Assoc,pc Jeane Connolly breathing Hospitalists I48.91 Unspecified atrial fibrillation J45.20 Mild intermittent asthma, uncomplicated Office Visit 09/25/2016 8:34a [facility] Amber Kaminski, Of Karina Ching Office Visit 09/25/2016 8:35a [facility] Anastasiya Vergara R07.9 Chest pain, Of [facility] AT [facility] MD Annamaria, unspecified FACC, [facility] Office Visit 09/25/2016 9:25a [facility] Ramona Ashley, R07.1 Chest pain on Assoc,pc DO breathing Hospitalists J45.20 Mild intermittent asthma, uncomplicated I48.91 Unspecified atrial fibrillation G47.33 Obstructive sleep apnea (adult) (pediatric) Office Visit 07/04/2016 2:45p Jose Rafael/[place] carmen uHrst R51 Headache Neurologic Serv Of Karina Ching Office Visit 06/11/2016 2:00p [place] [facility]ic Andreina Gray Headache Services Of [facility] Jeane G89.29 Other chronic pain Office Visit 06/10/2016 1:30p Pulmonology And Sharon R06.02 Shortness of Sleep Services Of MD Brittani breath [facility] J45.909 Unspecified asthma, uncomplicated G47.9 Sleep disorder, unspecified E66.01 Morbid (severe) obesity due to excess calories Office Visit 04/16/2016 [place] [facility] Avinash Velasquezmegan, D47.1 Chronic 3:40p Center Of Karina Ching myeloproliferative AT [place] disease R53.83 Other fatigue G89.4 Chronic pain syndrome D63.1 Anemia in chronic kidney disease N18.9 Chronic kidney disease, unspecified Office Visit 04/02/2016 [place] [facility] Avinash Velasquezmegan, D47.1 Chronic 1:00p Center Of Karina Ching myeloproliferative AT [place] disease G89.4 Chronic pain syndrome R53.83 Other fatigue D64.9 Anemia, unspecified Office Visit 02/06/2016 [place] [facility] Avinash Velasquezmegan D47.1 Chronic 3:00p Center Of Karina Ching myeloproliferative AT [facility] G89.4 Chronic pain syndrome Office Visit 04/06/2015 [place]aurie Duggan 333.94 Restless Leg 10:00a Neurologic Serv Of Jeane Hurst Syndrome Mining Consultant 333.1 Tremor Essential & Other Forms V49.3 Sensory Problem Limbs Office Visit 04/01/2013 Jose Rafael/Laurie Duggan 333.1 Tremor 10:30a Neurologic Serv Of Jeane Hurst Essential & Mining Consultant Other Forms 333.94 Restless Leg Syndrome Office Visit 03/18/2012 11:45a [place]/Laurie Duggan 354.2 Lesion Ulnar Neurologic Serv Of Karina Hurst M.D. Nerve 333.94 Restless Leg Syndrome 333.1 Tremor Essential & Other Forms Office Visit 02/18/2011 10:45a ENT Services Of [facility] 278.00 Obesity Unspec C.M.A. AT Jeane Crane [place] 380.4 Impacted Cerumen 389.10 Hearing Loss Sensorineural Unspec 787.20 Dysphagia, Unspecified Office Visit 04/28/2009 [facility] 567.9 Peritonitis 12:30a Asscarli dickinson M.D. Unspecified Hospitalists 780.97 Altered Mental Status 278.00 Obesity Unspec 277.9 Metabolic Disorder Unspec Office Visit 04/27/2009 [facility] [place] 567.9 Peritonitis 1:00a Asscarli dickinson M.D. Unspecified Hospitalists 780.97 Altered Mental Status 278.00 Obesity Unspec 244.9 Hypothyroidism Other Unspec Office Visit 04/26/2009 [facility] 567.9 Peritonitis 1:00a Asscarli dickinson M.D. Unspecified Hospitalists 780.97 Altered Mental Status 278.00 Obesity Unspec 244.9 Hypothyroidism Other Unspec Office 09/30/2007 Neurosurgery Aureliano Crespo 721.3 Spondylosis Lumbar W/O Visit 11:00a Services Of Karina Gayle M.D. Myelopathy AT [place] Office 06/03/2007 Neurosurgery Aureliano Crespo 721.3 Spondylosis Lumbar W/O Visit 4:00p Services Of Karina Gayle M.D. Myelopathy AT [place] Office 03/04/2007 Neurosurgery Aureliano Crespo 721.3 Spondylosis Lumbar W/O Visit 3:30p Services Of Karina Gayle M.D. Myelopathy AT [place] Office 11/26/2006 Neurosurgery Aureliano Crespo 721.3 Spondylosis Lumbar W/O Visit 3:30p Services Of Karina Gayle M.D. Myelopathy AT [place] Office 08/27/2006 Neurosurgery Aureliano Crespo 724.02 Spinal Stenosis, Visit 3:00p Services Of Karina aGyle M.D. Lumbar Region, W/O AT [place] Neurogenic Claudication Office 05/07/2005 [facility] Zack FKandi 794.31 Electrocardiogram Visit 1:00p Jeane Francis (ECG) (EKG) Abnormal 401.1 Hypertension Benign Plan of Treatment Future Appointment(s):11/09/2018 1:00 pm - Ica ECHO Schedule at [facility] Of [facility]12/08/2018 3:00 pm - Avinash Romero M.D. at [place] [facility] AT Riyodxkp78/21/2019 11:30 am - Sharon Peter MD at Pulmonology And Sleep Services Of [facility]11/10/2018 4:00 pm - Kris Merrill MD at [facility] Dermatology AT [email or web address]/17/2019 3:45 pm - Jaziel Hurst M.D. at [place] Neurologic Serv Of [facility]10/23/2018 - You Delgado DO FACCR06.02 Shortness of breathNew Xrays:Chest PA & Lat 2 VWS, Ordered: 10/23New Orders:Echocardiogram, Scheduled: 11/09/18EKG, Scheduled: 11/09/18Follow up:Please schedule EKG same day as echo 3 months
[2018-11-20 17:39] VITALS: BP 142/83
--- NOTE | 2018-11-20 18:11 | UC ---
General HPI - HPI Summary HPI Summary: Per computer aided drafter "Pt states the doctor wants a chest x-ray to see if she has fluid around the heart" -here w/ her dtr Laurence. -complex PMHx of AFIB. 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 She called her adapted physical education teacher's office last week (cardio in [place]) who recommended she come in this week for a CXR to eval for fluid around her heart that could be causing the swelling. no CP or SOB today. has FU appt with him in a few wks. no urgent sx today - History of Current Complaint Chief Complaint: UCGeneralIllness Stated Complaint: SENT FOR CHEST XRAY PER PT Time Seen by Provider: 11/20/18 17:35 Pain Intensity: 7 - Allergy/Home Medications Allergies/Adverse Reactions: Allergies Allergy/AdvReac Type Severity Reaction Status Date / Time atorvastatin [From Lipitor] Allergy See Comment Verified 11/20/18 17:41 imipramine Allergy Unknown Verified 11/20/18 17:41 Reaction Details Iodinated Contrast- Oral and Allergy Nausea Verified 11/20/18 17:41 IV Dye misoprostol [From Cytotec] Allergy Itching Verified 11/20/18 17:41 naproxen Allergy Itching Verified 11/20/18 17:41 nitrofurantoin Allergy Unknown Verified 11/20/18 17:41 Reaction Details theophylline [From Uniphyl] Allergy Unknown Verified 11/20/18 17:41 Reaction Details tiagabine [From Gabitril] Allergy Rash Verified 11/20/18 17:41 tizanidine Allergy Unknown Verified 11/20/18 17:41 Reaction Details fentanyl AdvReac Dizziness Verified 11/20/18 17:41 Oytnets-Snn-Wms Reductase AdvReac Vomiting Verified 11/20/18 17:41 Inhibitor PMH/Surg Hx/FS Hx/Imm Hx Previously Healthy: Yes Endocrine History: Hypothyroidism Cardiovascular History: Cardiac Disease, Atrial Fibrillation - Surgical History Surgical History: Yes Surgery Procedure, Year, and Place: 2007 FUSION LOW BACK. TSP -LSP [place] RODS/SCREWS 2004-- 2010 -TOTAL OF 5 SURGERIES LAST ONE 2011 Xs 2. 2006BILATERAL HIP REPLACEMENT. 06/2003 LEFT HEEL TARSAL TUNNEL -. 12/2004 WART -REMOVED FROM EYELID. 2002 CARPAL TUNNEL - [place]. 2002 Lt KNEE -2 & 2005 09/2002 & 01/2003 Rt KNEE - 3 TIMES - ARTHROSCOPIC. 2007 RIGHT BREAST LUMPECTOMY. 1999 CHOLECYSTECTOMY. TONSILECTOMY- as child. UMBILICAL HERNIA REPAIR. 2008 APPENDECTOMY. 06/2005 [place] BREAST REDUCTION. Lt THUMB - GANGLION CYST. T2007 LEFT TOTAL HIP. Rt ARM - "LUMP" REMOVED-. 2005 RT HIP TOTAL REPLACEMENT. 01/2018 CARDIAC STENT. 07/07 heart cath [place] - Family History Known Family History: Positive: Cardiac Disease - Father used to use NTG. 3 brothers have had CABG. 4th had CVA and MD., Diabetes - Social History Alcohol Use: None Alcohol Amount: reports only a couple of drinks 4 times per year Substance Use Type: None Smoking Status (MU): Never Smoked Tobacco Have You Smoked in the Last Year: No - Immunization History Most Recent Influenza Vaccination: April 2016 Most Recent Tetanus Shot: current Most Recent Pneumonia Vaccination: in the past Review of Systems All Other Systems Reviewed And Are Negative: Yes Constitutional: Positive: Negative Skin: Positive: Negative Eyes: Positive: Negative ENT: Positive: Negative Respiratory: Positive: Negative - none today Cardiovascular: Positive: Negative. Negative: Palpitations, Chest Pain Gastrointestinal: Positive: Negative Motor: Positive: Negative Neurovascular: Positive: Negative Musculoskeletal: Positive: Negative Neurological: Positive: Negative Psychological: Positive: Negative Is Patient Immunocompromised?: No Physical Exam Triage Information Reviewed: Yes Appearance: Well-Appearing, No Pain Distress, Well-Nourished - sitting comfortably in WC. good sense of humor. speaks full sentences w/o distress. Vital Signs: Initial Vital Signs Temp 97.5 F 11/20/18 17:34 Pulse 69 11/20/18 17:34 Resp 18 11/20/18 17:34 BP 142/83 11/20/18 17:34 Pulse Ox 94 11/20/18 17:34 Vital Signs Reviewed: Yes Eye Exam: Normal ENT Exam: Normal Neck exam: Normal Respiratory: Positive: Lungs clear, Normal breath sounds, No respiratory distress, No accessory muscle use. Negative: Crackles, Rhonchi, Stridor, Wheezing Cardiovascular Exam: Normal Cardiovascular: Positive: RRR. Negative: Tachycardia Abdomen Description: Positive: Nontender - obese, Soft Musculoskeletal: Positive: Edema @ - +2-3 b/l LE 1/2 up b/l shins Neurological Exam: Normal Psychological Exam: Normal Skin Exam: Normal Course/Dx - Course Course Of Treatment: CXR today - cc to Dr Delgado - cardio in [place] -[facility] requested after 6 PM. -dtr has appt elsehwere and they wish to be dc'd before [facility] is back. -based on my interprestation, s/p CABG, cardiomgeally, spine hardware, no CHF appreciated. they understand that I am not a radiologist and final intreprestation must come from RAD. -recommend go to ER with nay CP or SOB or other sx. they are agreeable. - Differential Dx - Multi-Symptom Differential Diagnoses: Cardiac Ischemia, Other - CHF - Diagnoses Provider Diagnosis: Edema, CAD (coronary artery disease) Discharge - Sign-Out/Discharge Documenting (check all that apply): Patient Departure All imaging exams completed and their final reports reviewed: No - Discharge Plan Condition: Stable Disposition: HOME Patient Education Materials: Leg Edema (ED) Referrals: Manas Villeda MD [Primary Care Provider] - Additional Instructions: Please make sure to follow up with your adapted physical education teacher and make sure that he gets the report of your xray. please go to the ER with any chest pain or shortness of breath. We will contact you with the results of your bruce xray once we have the official report from the radiologist. - Billing Disposition and Condition Condition: STABLE Disposition: Home
--- NOTE | 2018-11-20 19:42 | UC ---
- Progress Note Progress Note: CHERYL interpreation received. Nursing staff called pt with results and she asked to speak w/ me as well. -cardiomegally, no CHF. exam stable. sternal wires. -reveiwed w/ her. she states she was unaware of cardiomegally. -I stressed to her the importance of calling her licensed investment sales assistant on Friday to assure that he gets CXR results and that she follows up with him. she can also call medical records -she now tells me that she has some ppwk that her licensed investment sales assistant gave her also that she hsnt done - she thinks for blood work and maybe an echo. -I reitterated that she goes to the ER with any CP/SOB/worsening edema. etc -she understands me well Course/Dx - Diagnoses Provider Diagnoses: Edema, CAD (coronary artery disease) Discharge - Sign-Out/Discharge Documenting (check all that apply): Post-Discharge Follow Up All imaging exams completed and their final reports reviewed: Yes - Discharge Plan Condition: Stable Disposition: HOME Patient Education Materials: Leg Edema (ED) Referrals: Manas Villeda MD [Primary Care Provider] - Additional Instructions: Please make sure to follow up with your licensed investment sales assistant and make sure that he gets the report of your xray. please go to the ER with any chest pain or shortness of breath. We will contact you with the results of your bruce xray once we have the official report from the radiologist. - Billing Disposition and Condition Condition: STABLE Disposition: Home
== END 2018-11-20 19:04 | disposition home or self-care (01) ==
LOC: UCCORT 17:18
DX: I25.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 native coronary artery without angina pectoris (principal); R60.9 Edema, unspecified; I50.9 Heart failure, unspecified; I48.91 Unspecified atrial fibrillation; E03.9 Hypothyroidism, unspecified; Z88.8 Allergy status to other drugs, medicaments and biological substances; Z88.6 Allergy status to analgesic agent; Z91.041 Radiographic dye allergy status; Z95.1 Presence of aortocoronary bypass graft
CPT/HCPCS: 71046; 99212; G0463

== ENCOUNTER 2019-04-08 20:33 | Emergency (ER) | payer MEDICARE ==
--- OUTSIDE RECORDS SUMMARY | 2019-04-08 20:44 | XMS REPORT ---
:1940 Author Organization [facility] Address [address] [place] [address] Care Team Providers Name Role Phone Michael Schwarz Unavailable Unavailable PROBLEMS Type Condition ICD9-CM [id number] Onset Condition SNOMED Code Code Code Dates Status Problem Family history of Z80.49 Active 760498388 malignant neoplasm of other genital organs Problem Body mass index Z68.42 Active 342797476 (BMI) 45.0-49.9, adult Problem Cystocele, N81.10 Active 798278854 unspecified Problem Unspecified R32 Active 279745480 urinary incontinence Problem Postmenopausal N95.0 Active 05731457 bleeding Problem 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 [id number] microscopic hematuria Problem Urinary tract N39.0 Active 42166416 infection, site not specified Problem Other specified N93.8 Active 622414497 abnormal uterine and vaginal bleeding Problem Dysuria R30.0 Active 84995203 Problem Cystocele, lateral N81.12 Active 907321118 ALLERGIES No Information ENCOUNTERS Encounter Location Date Diagnosis [facility] 103 Feb, [place] [id number] [facility] 103 Feb, [place] [id number] [facility] 103 Jul, Encounter for screening OBGYN [facility], mammogram for malignant [place] [id number] neoplasm of breast Z12.31 [facility] 103 May, Postmenopausal bleeding OBGYN [facility], N95.0 ; Family history of [place] [id number] malignant neoplasm of other genital organs Z80.49 ; Cystocele, lateral N81.12 ; Dysuria R30.0 ; Unspecified urinary incontinence R32 and Benign essential microscopic hematuria R31.1 [facility] 103 May, [place] [id number] [facility] 103 May, [place] [id number] [facility] 103 Feb, [place] [id number] [facility] 103 Feb, [place] [id number] [facility] 103 Feb, [place] [id number] [facility] 103 Dec, [facility], N95.0 ; [place] history of [place] [id number] malignant neoplasm of other genital organs Z80.49 ; Cystocele, lateral N81.12 ; Dysuria R30.0 ; Unspecified urinary incontinence R32 and Benign essential microscopic hematuria R31.1 [facility] 103 Dec, [place] [id number] [facility] 103 Dec, [place] [id number] [facility] 103 November, [place] [id number] [facility] 103 Oct, [place] [id number] [facility] 103 Oct, [place] [id number] [facility] 103 Oct, [place] [id number] [facility] 103 Oct, [place] [id number] [facility] 103 Oct, Dysuria R30.0 ; OBGYN [facility], Unspecified urinary [place] [id number] incontinence R32 and Cystocele, lateral N81.12 [facility] 103 Sep, [place] [id number] [facility] 103 Mar, [place] [id number] [facility] 103 Mar, [place] [id number] [facility] 103 Mar, [place] [id number] [facility] 103 Mar, [place] [id number] [facility] 103 Mar, [place] [id number] [facility] 103 Mar, [place] [id number] [facility] 103 Mar, [facility], N95.0 ; [place] history [place] [id number] malignant neoplasm of other genital organs Z80.49 and Benign essential microscopic hematuria R31.1 [facility] 103 Feb, [place] [id number] [facility] 103 Feb, [facility] not specified N39.0 [place] [id number] [facility] 103 Feb, Urinary tract infection, OBGYN [facility], site not specified N39.0 [place] [id number] [facility] 103 Feb, [facility] site not specified N39.0 [place] [id number] [facility] 103 Feb, [place] [id number] [facility] 103 Feb, Urinary tract infection, OBN [facility], site not specified N39.0 [place] [id number] [facility] 103 Feb, [place] [id number] [facility] 103 Feb, [facility], N95.0 ; [place] history [place] [id number] malignant neoplasm of other genital organs Z80.49 ; Body mass index (BMI) 45.0-49.9, adult Z68.42 ; Cystocele, unspecified N81.10 and Dysuria R30.0 [facility] 103 Feb, Postmenopausal bleeding OBN [facility], N95.0 and Family history [place] [id number] of malignant neoplasm of other genital organs Z80.49 [facility] 103 Jan, [place] [id number] [facility] 103 Jan, [facility]inary tract infection, [facility], site not specified N39.0 [place] [id number] [facility] 103 Jan, Dysuria R30.0 [place] [id number] [facility] 103 Jun, [facility] for [facility], mammogram for malignant [place] [id number] neoplasm of breast Z12.31 [facility] 103 14 Feb, 2015 [place] 782.62 [place] [id number] [facility] 103 Oct, [place] [id number] [facility] 103 13 Oct, 2015 [place] [id number] [facility] 103 Sep, Urinary tract infection OBGYN [facility], NOS 599.0 [place] [id number] [facility] 103 Aug, [place] [id number] [facility] 103 Aug, Urinary tract infection OBGYN [facility], NOS 599.0 [place] [id number] [facility] 103 Aug, Flushing 782.62 [place] [id number] [facility] 103 Aug, [place] [id number] [facility] 103 May, [facility]GRAM NEC [facility], V76.12 ; [place] 782.62 ; [place] [id number] Postmenopausal bleeding 627.1 and Blood in stool 578.1 [facility] 103 Apr, [place]ushing 782.62 [place] [id number] [facility] 103 Jan, SCREEN MAMMOGRAM NEC OBGYN [facility], V76.12 [place] [id number] [facility] 103 Jan, Flushing 782.62 and OBGYN [facility], UTERINE FIBROIDS-UNSPEC [place] [id number] 218.9 [facility] 103 Dec, [place] [id number] [facility] 103 Dec, [place] [id number] [facility] 103 Dec, Flushing 782.62 [place] [id number] [facility] 103 November, [facility] tract infection [facility], NOS 599.0 [place] [id number] [facility] 103 Oct, Incontinence 788.30 ; [facility], Postmenopausal bleeding [place] [id number] 627.1 and Body Mass Index 45.0-49.9, adult V85.42 [facility] 103 Oct, [facility]menopausal [facility], 627.1 and FM HX GENITAL [place] [id number] MALIG NOS V16.40 [facility] 103 Sep, [place] [id number] [facility] 103 Sep, Incontinence 788.30 ; [facility], Postmenopausal bleeding [place] [id number] 627.1 and Body Mass Index 45.0-49.9, adult V85.42 [facility] 103 Sep, [place] [id number] [facility] 103 Aug, [place] [id number] [facility] 103 Aug, Incontinence 788.30 ; [facility], Postmenopausal bleeding [place] [id number] 627.1 and Body Mass Index 45.0-49.9, adult V85.42 [facility] 103 May, [place] [id number] [facility] 103 May, [facility]menopausal bleeding [facility], 627.1 and Body Mass Index [place] [id number] 45.0-49.9, adult V85.42 [facility] 103 May, [place] [id number] [facility] 103 11 Nov, 2013 Postmenopausal bleeding OBGYN [facility], 627.1 and Body Mass Index [place] [id number] 45.0-49.9, adult V85.42 [facility] 103 May, [place] [id number] [facility] 103 Apr, Postmenopausal bleeding OBGYN [facility], 627.1 [place] [id number] [facility] 103 Apr, Postmenopausal bleeding OBGYN [facility], 627.1 and FM HX GENITAL [place] [id number] MALIG NOS V16.40 [facility] 103 Apr, GYNECOLOGIC EXAMINATION OBGYN [facility], V72.31 ; 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 [place] [id number] EXAM V76.2 ; SCREEN MALIG NEOP-COLON V76.51 ; Postmenopausal bleeding 627.1 ; SCREEN MAMMOGRAM NEC V76.12 and Blood in stool 578.1 [facility] 103 Mar, [place] [id number] [facility] 103 Mar, [place] [id number] [facility] 103 Jul, Osteopenia 733.90 [place] [id number] [facility] 103 Jul, Osteopenia 733.90 [place] [id number] [facility] 103 Jul, Postmenopausal bleeding OBGYN [facility] 627.1 [place] [id number] [facility] 103 Jul, Postmenopausal bleeding OBGYN [facility], 627.1 [place] [id number] [facility] 103 May, [place] [id number] [facility] 103 Feb, GYNECOLOGIC EXAMINATION OBGYN [facility], V72.31 ; 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 103 Jan, Postmenopausal bleeding OBN [facility], 627.1 ; FM HX GENITAL [place] [id number] MALIG NOS V16.40 and OBESITY NOS 278.00 [facility] 103 Dec, [place] [id number] [facility] 103 Dec, Postmenopausal bleeding OBN [facility], 627.1 ; FM HX GENITAL [place] [id number] MALIG NOS V16.40 and OBESITY NOS 278.00 [facility] 103 November, [place] [id number] [facility] 103 Jun, [place] [id number] [facility] 103 14 Jun, 2010 Other abnormal clinical OBGYN [facility], findings 796.4 ; OBESITY [place] [id number] NOS 278.00 ; FM HX GENITAL MALIG NOS V16.40 and Postmenopausal bleeding 627.1 [facility] 103 23 May, 2010 Other abnormal clinical OBGYN [facility], findings 796.4 ; OBESITY [place] [id number] NOS 278.00 ; FM HX GENITAL MALIG NOS V16.40 and Postmenopausal bleeding 627.1 [facility] 103 16 May, 2010 BMI 40 AND OVER, ADULT OBGYN [facility], V85.4 and UTERINE [place] [id number] FIBROIDS-UNSPEC 218.9 [facility] 103 May, GYNECOLOGIC EXAMINATION OBGYN [facility], V72.31 ; SCREEN MALIG [place] [id number] NEOP-COLON V76.51 and Other abnormal clinical findings 796.4 [facility] 103 Apr, ROUTINE 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 103 Jan, [place] 782.62 [place] [id number] [facility] 103 Jan, [place]ushing 782.62 and Other OBGYN [facility], abnormal clinical findings [place] [id number] 796.4 [facility] 103 Jan, [place] [id number] [facility] 103 Dec, Flushing 782.62 ; MALAISE OBGYN [facility], AND FATIGUE NEC 780.79 and [place] [id number] Headache 784.0 [facility] 103 Jun, Incontinence 788.30 ; OBGYN [facility], Cystocele, midline 618.01 [place] [id number] and Urge incontinence 788.31 [facility] 103 Dec, [place] [id number] [facility] 103 Dec, [place] [id number] [facility] 103 Dec, ROUTINE 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 EXAMINATION [facility], V72.31 [place] [id number] [facility] 103 November, [place] [id number] [facility] 103 November, [place] [id number] [facility] 103 May, [place] [id number] [facility] 103 Oct, [place] [id number] [facility] 103 Sep, [place] [id number] [facility] 103 Sep, Cystocele, midline 618.01 [facility], ; First degree uterine [place] [id number] prolapse 618.1 ; Urge incontinence 788.31 and Flushing 782.62 [facility] 103 Aug, Cystocele, midline 618.01 [facility], ; First degree uterine [place] [id number] prolapse 618.1 and Urge incontinence 788.31 [facility] 103 Feb, Cystocele, midline 618.01 [place] [id number] [facility] 103 27 Jan, 2005 Well Adult exam V 70.0 ; OBGYN [facility], 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 Exam pt w/ [place] [id number] uterus/cervix V72.3 ; Cystocele, midline 618.01 and First degree uterine prolapse 618.1 IMMUNIZATIONS No Known Immunizations SOCIAL HISTORY Never Assessed REASON FOR REFERRAL FUNCTIONAL STATUS PLAN OF CARE Activity Details Pending Test Mammogram, Routine Screening - bilateral VITAL SIGNS MEDICATIONS Unknown Medications PROCEDURES No Known procedures RESULTS No Results REASON FOR VISIT pt update Insurance Providers [facility] Member Patient Patient Patient Patient Patient Subscriber Subscriber Subscriber Group Insurance Plan Plan Plan Plan ID Relationship Address Phone Name Date of ID Name Date of No Type Insurance Insurance Insurance Coverage to Subscriber Address Phone Name Dates Blue [phone] Blue self [place] [id number] Cross/Blue [id number] Cross/Blue Veronica 0 [facility] [address] AARP [phone] AARP self [place] [id number] [address] [place] [address] AARP [phone] AARP self [place] [id number] 89 Veronica [facility] [address] Medicare [phone] Medicare self [place] [id number] [facility] [address] Blue po [address] [phone] Blue [place] [id number] Cross/Blue [id number] Cross/Blue Veronica 0 0 [facility] [id number] MEDICAL (GENERAL) HISTORY Type Description Date Medical History anemia Medical History Arthritis Medical History asthma Medical History thyroid disease Medical History irritable bowel syndrome Medical History fibromyalgia Medical History H. pylori / GERD Medical History gout Medical History low blood count - had bone marrow test Medical History A.fib Surgical History cholecystectomy 12/19/99 Surgical History hernia repair 12/19/99 Surgical History Knee surgery, Rt. 02/02/03 Surgical History Hand surgery, Lt. 04/25/03 Surgical History D&C/ tumor 05/25/03 Surgical History Knee surgery, Lt. 06/20/03 Surgical History Foot surgery, Lt. 07/13/03 Surgical History Ganglion removal, Lt. thumb 08/09/03 Surgical History Rt. arm, blood clot 12/02/03 Surgical History Colonoscopy 07/03/04 Surgical History Rt. Knee 10/02/04 Surgical History Lesion removal, eye 12/23 Surgical History Lt. Knee 02/22/05 Surgical History back surgery 04/24 Surgical History breast reduction 06/26/05 Surgical History r hip total replacement 12/02/05 Surgical History r knee scoped 07/28/06 Surgical History r breast cyst removal Surgical History back fusion 06/14/09 Surgical History emergency appy 04/24/10 Surgical History Rods and screws removed from back and more fusion 07/12/11 Surgical History back fusion 06/20/11 Surgical History bone marrow bx 09/04 Hospitalization History see above Hospitalization History childbirth Hospitalization History broken ankle and tibia 07/08/14
--- OUTSIDE RECORDS SUMMARY | 2019-04-08 20:44 | XMS REPORT | Continuity of Care Document ---
:1940 External Reference #:[id number] Author Name Veronica Amaris, ELECTROTYPE SERVICER Address [address] [place] [address] Care Team Providers Name Role Phone Manas Villeda MD - Family Medicine Care Team Information Logistics Center Manager Luana Schwarz - Obstetrics & Care Team Information Logistics Center Manager [facility]ne[facility] - Care Team Information Logistics Center Manager [phone] Gastroenterology Cielo Cook MD - Hematology & Care Team Information Logistics Center Manager [facility] - Pain Care Team Information Logistics Center Manager [phone] Radames Lee MD - Orthopaedic Care Team Information Logistics Center Manager [phone] Surgery of the Spine Avinash Romero MD - Hematology Care Team Information Logistics Center Manager [phone] Brian Smallwood MD - Ophthalmology Care Team Information Logistics Center Manager [facility] Care Team Information Logistics Center Manager [phone] [facility] Care Team Information Logistics Center Manager [phone] Problems Active Problems Provider Date Hypothyroidism Manas [...] pain syndrome Manas Villeda M.D. Onset: 03/16/2018 Social History Type Date Description Comments Sex Unknown Tobacco Use Start: Unknown Patient has never smoked Allergies, Adverse Reactions, Alerts Active Allergies Reaction Severity Comments Date Asa gastric ulcer 2013 Gabitril rash 2013 Naprosyn rash 2013 Cytotec rash 2013 Lipitor leg weakness 2013 Zanaflex hallucinations 2013 Contrast Dye visual chnages 2013 Impramine dianrrhea itch headaches 2013 Oxycodone severe constipation Severe 12/08/2018 Medications Active Medications SIG Qnty Indications Ordering Date Provider Gabapentin take 1 capsule by 90caps G89.4 Veronica 03/25/2019 300mg Capsules mouth three times Amaris, E[employer] SERVICER a day as needed for pain Methocarbamol 1 by mouth twice 60tabs M25.511 Delfina Alissa 01/28/2019 500mg a day as needed Collazo, DULSER Tablets spasm Metoprolol Succinate 1 by mouth twice 60tabs Veronica 12/21/2018 ER a day Amaris, [employer] SERVICER 25mg Tablets ER 24HR Hydrocodone-Acetaminop 2 tablets by 240tabs Veronica 11/13/2018 hen mouth every 6 Amaris, ELECTROTYPE SERVICER 10-325mg Tablets hours as needed pain Miralax 17 grams every 24units K59.03 Veronica 11/13/2018 3350NF Packet day with large Amaris, E[employer]YPE SERVICER glass water Plavix 1 by mouth every 90tabs Manas Villeda, 03/16/2018 75mg Tablets day M.D. Levothyroxine Sodium Take 1 Tablet 90tabs Veronica 08/29/2017 Every Day Amaris, E[employer] SERVICER 175mcg Tablets Venlafaxine HCL ER take 1 capsule by 90caps R23.2 Veronica 04/07/2015 37.5mg mouth every night Amaris, E[employer] SERVICER Caps ER 24HR at bedtime Levocetirizine Take 1 Tablet 90tabs Veronica 07/12/2014 Dihydrochloride Every Day JOSE MARIA GlezP 5mg Tablets Omeprazole 1 po bid 180caps K21.9 Veronica 05/02/[address] Ezetimibe 1 by mouth every Unknown 10mg Tablets day Melatonin 1 cap by mouth Unknown 10mg Capsules every day at bedtime Amlodipine Besylate take 2 tablets 180tabs Manas Villeda, 5mg every day M.D. Tablets Amitriptyline HCL Take 1 Tablet AT 90tabs Veronica 10mg Bedtime VY Glez Tablets Pramipexole Take 2 Tablets 180tabs Veronica Dihydrochloride Every Night AT AmarisVY morales 1mg Bedtime Tablets Breo Ellipta 1 inhalation once Unknown per day, rinse, 100-25mcg/Inh Aerosol samples Amiodarone HCL 1 by mouth every 90tabs Veronica 100mg day VY Glez Tablets Torsemide take 1 pill a day Unknown 10mg Tablets for fluid Vitamin B12 100mcg qd Unknown Primidone take 2 tablets Unknown 50mg Tablets every night at bedtime Ventolin HFA 2 puffs every 6 3units Veronica 108(90Base) hours as needed JOSE MARIA GlezP mcg/Act Aerosol Albuterol Sulfate use four times a 180ml Veronica day as needed Amaris [employer] SERVICER (2.5mg/3ML) 0.083% Nebulizer Colace 2 by mouth twice 540caps Veronica 100mg Capsules a day for bowels Amaris, E[employer] SERVICER Multivitamin With 1 po qd 100tabs Unknown Folic Acid supplement Tablets Senna S 1 by mouth twice 180tabs Veronica 8.6-50mg Tablets a day Amaris [employer] SERVICER Calcium/Mag 1 po qd 30units Unknown Chewtabs Singulair take 1 tablet 90tabs Veronica 10mg Tablets every day [facility] Fluticasone Propionate Use 2 Sprays In 48units Thompson Each Nostril AT [facility] 50mcg/Act Suspension Bedtime Aspirin 1 by mouth every Unknown 81mg Tablets DR day Vitamin D 2 by mouth every Unknown 1000Unit day Tablets Shark Cartilage 2 po tid Unknown 500mg Capsules History Medications Keflex 1 by mouth twice a 14caps Thompson 01/28/2019 - 500mg day x 7 days [facility] 03/25/2019 Capsules Brace bilateral knee Thompson 12/08/2018 - braces for support, [facility] 03/25/2019 strength with walking, stability Brace lumbar back Thompson 12/08/2018 - support, ind: [facility] 03/25/2019 chronic pain, chronic lumbago Nystatin 5 milliliters swish 250ml J02.9 Thompson 10/23/2018 - and spit orally [facility] 11/13/2018 653045Eily/ML four times a day Suspension Fluconazole 1 po daily x 2 days 2tabs J02.9 [place] 10/23/2018 - 150mg if liquid nystatin [facility] 11/13/2018 Tablets fails to resolve symptoms in 3-4 days of use Hold Amiodorone While Using Diflucan Zithromax 2 by mouth every 6tabs J02.9 [place] 10/23/2018 - 250mg day today , then 1 [facility] 11/13/2018 Tablets by mouth every day times 4 Immunizations CPT Code Status Date Vaccine Lot # [id number] Given 05/15/2018 High-Dose, Influenza Virus Vacccine-fluzone 65 and [id number] older 34041 Given 04/10/2017 High-Dose, Influenza Virus Vacccine-fluzone 65 and [id number] older 74901 Given 12/24/2016 Tdap Tetanus, W Pertussis [id number] Given 12/24/2016 Pneumococcal Conjugate Vacc-13 [id number] [id number] Given 04/10/2016 Influenza Vac, Quadrivalent, Slit Virus, Im [id number] Given 05/08/2015 Pneumococcal Immunization [id number] 90750 Given 05/08/2015 Influenza Vac, Quadrivalent, Slit Virus, Im [id number] Vital Signs Date Vital Result Comment 03/25/2019 1:57pm BP Systolic 100 mmHg BP Diastolic 70 mmHg Heart Rate 62 /min Body Temperature 97.3 F Height 61 inches 5'1" 01/28/2019 3:25pm BP Systolic 118 mmHg BP Diastolic 68 mmHg Heart Rate 72 /min Body Temperature 97.7 F Respiratory Rate 16 /min Height 61 inches 5'1" Weight 240.00 lb per pt. (did not want her to walk to scale) BMI (Body Mass Index) 45.3 kg/m2 Results Test Date Facility Test Result H/L Range Note CBC Auto Diff 12/08/2018 [facility] [place] White Blood Count 5.8 10^3/uL Normal 3.5- 10.8 Red Blood Count 3.33 10^6/uL Low 3.70-4.87 Hemoglobin 10.8 g/dL Low 12.0-16.0 Hematocrit 32 % Low 35-47 Mean Corpuscular Volume 96 fL Normal 80-97 Mean Corpuscular Hemoglobin 33 pg High 27-31 Mean Corpuscular HGB Conc 34 g/dL Normal 31-36 Red Cell Distribution Width 13 % Normal 10.5-15 Platelet Count 235 10^3/uL Normal 150-450 Mean Platelet Volume 7.3 fL Low 7.4-10.4 Abs Neutrophils 3.0 10^3/uL Normal 1.5-7.7 Abs Lymphocytes 1.9 10^3/uL Normal 1.0-4.8 Abs Monocytes 0.5 10^3/uL Normal 0-0.8 Abs Eosinophils 0.3 10^3/uL Normal 0-0.6 Abs Basophils 0.0 10^3/uL Normal 0-0.2 Abs Nucleated RBC 0.0 10^3/uL Granulocyte % 52.4 % Lymphocyte % 32.8 % Monocyte % 8.4 % Eosinophil % 5.7 % Basophil % 0.7 % Nucleated Red Blood Cells % 0.1 Basic Metabolic Panel 12/08/2018 [facility] [place] Sodium 139 mmol/L Normal 135-145 Potassium 4.5 mmol/L Normal 3.5-5.0 Chloride 105 mmol/L Normal 101-111 Co2 Carbon Dioxide 27 mmol/L Normal 22-32 Anion Gap 7 mmol/L Normal 2-11 Glucose 98 mg/dL Normal 70-100 Blood Urea Nitrogen 33 mg/dL High 6-24 Creatinine 1.45 mg/dL High 0.51-0.95 BUN/Creatinine Ratio 22.8 High 8-20 Calcium 9.6 mg/dL Normal 8.6-10.3 Egfr Non- 34.8 >60 Egfr 42.1 >60 1 Comprehensive Metabolic 11/13/2018 [facility](fma) Sodium 136 mEq/L 134-149 Prof Potassium 4.8 mEq/L 3.6-5.5 Chloride 98 mEq/L 94-112 Carbon Dioxide 30 mEq/L 21-32 Glucose 91 mg/dL 70-105 BUN 36 mg/dL High 6-26 Creatinine 1.5 mg/dL High 0.6-1.4 BUN/Creat Ratio 24.0 CALC 8.0-36.0 Calcium 9.2 mg/dL 8.6-10.2 Total Protein 6.9 g/dL 6.4-8.3 Albumin 4.2 g/dL 3.8-5.5 Globulin 2.7 g/dL 2.0-4.8 A/G Ratio 1.6 CALC 0.6-2.3 Alk. Phosphatase 86 U/L 30-110 Alt (SGPT) 9 U/L 7-35 Ast (Sgot) 17 U/L 5-34 Total Bilirubin 0.3 mg/dL 0.2-1.3 GFR Non- 36 ml/min/1.73m^ Low >=60 GFR 43 ml/min/1.73m^ Low >=60 Laboratory test finding 11/13/2018 [facility](fma) TSH 3.70 mIU/L 0.50-6.00 Ferritin 329 ng/mL High 15-200 2 Vitamin B-12 631 pg/mL 230-1050 Laboratory test 11/13/2018 [facility] PTH, Intact 48 pg/mL 15-65 3 finding [address] [place] [address] (607)- - Albumin 4.3 g/dL 3.5-4.8 Phosphorus 4.1 mg/dL 2.5-4.5 Iron And 11/13/2018 [facility] Iron Bind.Cap.(Tibc) 230 g/dL Low 250-450 [facility] [address] [place] [address] (607)- - Uibc 156 g/dL 118-369 Iron 74 g/dL 27-139 Iron Saturation 32 % 15-55 CBC Auto Diff 11/02/2018 [facility] [place] White Blood Count 6.2 10^3/uL Normal 3.5- 10.8 Red Blood Count 3.68 10^6/uL Low 3.70-4.87 Hemoglobin 11.8 g/dL Low 12.0-16.0 Hematocrit 36 % Normal 33-41 Mean Corpuscular Volume 96 fL Normal 80-97 Mean Corpuscular Hemoglobin 32 pg High 27-31 Mean Corpuscular HGB Conc 33 g/dL Normal 31-36 Red Cell Distribution Width 14 % Normal 10.5-15 Platelet Count 252 10^3/uL Normal 150-450 Mean Platelet Volume 7.7 fL Normal 7.4-10.4 Abs Neutrophils 3.7 10^3/uL Normal 1.5-7.7 Abs Lymphocytes 1.7 10^3/uL Normal 1.0-4.8 Abs Monocytes 0.4 10^3/uL Normal 0-0.8 Abs Eosinophils 0.4 10^3/uL Normal 0-0.6 Abs Basophils 0 10^3/uL Normal 0-0.2 Abs Nucleated RBC 0 10^3/uL Granulocyte % 59.0 % Lymphocyte % 27.8 % Monocyte % 5.6 % Eosinophil % 6.9 % Basophil % 0.7 % Nucleated Red Blood Cells % 0.1 Laboratory test 10/23/2018 [facility] Quickstrep NEGATIVE Negative finding (607)- - CBC Auto Diff 10/19/2018 [facility] [place] White Blood 6.3 10^3/uL Normal 3.5-10.8 Count Red Blood Count 3.49 10^6/uL Low 3.70-4.87 Hemoglobin 11.2 g/dL Low 12.0-16.0 Hematocrit 34 % Normal 33-41 Mean Corpuscular Volume 97 fL Normal 80-97 Mean Corpuscular Hemoglobin 32 pg High 27-31 Mean Corpuscular HGB Conc 33 g/dL Normal 31-36 Red Cell Distribution Width 15 % Normal 10.5-15 Platelet Count 213 10^3/uL Normal 150-450 Mean Platelet Volume 7.9 fL Normal 7.4-10.4 Abs Neutrophils 3.9 10^3/uL Normal 1.5-7.7 Abs Lymphocytes 1.6 10^3/uL Normal 1.0-4.8 Abs Monocytes 0.4 10^3/uL Normal 0-0.8 Abs Eosinophils 0.4 10^3/uL Normal 0-0.6 Abs Basophils 0 10^3/uL Normal 0-0.2 Abs Nucleated RBC 0 10^3/uL Granulocyte % 62.1 % Lymphocyte % 24.6 % Monocyte % 6.4 % Eosinophil % 6.3 % Basophil % 0.6 % Nucleated Red Blood Cells % 0 1 Because ethnic data is not always [...] 5 Kidney failure <15 (or dialysis) 2 consistent w/ previous results 3 1 red top sst pour offs se nt Procedures Date Code Description Status 01/20/2017 [id number] Mammogram Completed 07/27/2015 [id number] Mammogram Completed 05/20/2014 [id number] Mammogram Completed 09/18/2013 [id number] Colonoscopy Completed Medical Devices Description No Information Available Encounters Type Date Location Provider Dx Diagnosis Office Visit 01/28/2019 [facility] Veronica M25.511 Pain in right 3:15p Amaris, [employer] SERVICER shoulder M79.605 Pain in left leg M25.561 Pain in right knee M25.562 Pain in left knee G89.4 Chronic pain syndrome Office Visit 12/08/2018 2:45p [facility] Veronica K59.03 Drug induced Amaris, [employer] SERVICER constipation K56.41 Fecal impaction G89.4 Chronic pain syndrome R13.10 Dysphagia, unspecified Office Visit 11/13/2018 10:45a [facility] Office Veronica Amaris, M25.562 Pain in left [employer] SERVICER knee K59.03 Drug induced constipation K56.41 Fecal impaction G89.4 Chronic pain syndrome R60.0 Localized edema N18.3 Chronic kidney disease, stage 3 (moderate) D64.9 Anemia, unspecified E78.2 Mixed hyperlipidemia Office Visit 10/23/2018 1:00p Main Office Veronica J02.9 Acute pharyngitis, Amaris, [employer] SERVICER unspecified R05 Cough R09.02 Hypoxemia R53.83 Other fatigue D64.9 Anemia, unspecified Assessments Date Code Description Provider 03/25/2019 M25.561 Pain in right knee Veronica Amaris, [facility] 03/25/2019 M25.562 Pain in left knee Veronica Amaris, [facility] 03/25/2019 G89.4 Chronic pain syndrome Veronica Amaris, [facility] 03/25/2019 M25.511 Pain in right shoulder Veronica Amaris, [facility] 03/25/2019 K59.03 Drug induced constipation Veronica Amaris, [facility] 03/25/2019 M79.671 Pain in right foot Veronica Amaris, [facility] 03/25/2019 M79.672 Pain in left foot Veronica Amaris, [facility] 03/25/2019 K21.9 Gastro-esophageal reflux disease without Veronica Amaris , [facility] esophagitis 01/28/2019 M25.511 Pain in right shoulder Veronica Amaris, [facility] 01/28/2019 M79.605 Pain in left leg Veronica Amaris, [facility] 01/28/2019 M25.561 Pain in right knee Veronica Amaris, [facility] 01/28/2019 M25.562 Pain in left knee Veronica Amaris, [facility] 01/28/2019 G89.4 Chronic pain syndrome Veronica Amaris, [facility] 12/08/2018 K59.03 Drug induced constipation Veronica Amaris, [facility] 12/08/2018 K56.41 Fecal impaction Veronica Amaris, [facility] 12/08/2018 G89.4 Chronic pain syndrome Veronica Amaris, [facility] 12/08/2018 R13.10 Dysphagia, unspecified Veronica Amaris, [facility] 11/13/2018 M25.562 Pain in left knee Veronica Amaris, [facility] 11/13/2018 K59.03 Drug induced constipation Veronica Amaris, [facility] 11/13/2018 K56.41 [facility] 11/13/2018 G89.4 Chronic pain syndrome Veronica Amaris, [facility] 11/13/2018 R60.0 [facility] 11/13/2018 N18.3 [facility], stage 3 (moderate) [facility] 11/13/2018 D64.9 Anemia, unspecified Veronica Amaris, [facility] 11/13/2018 E78.2 Mixed hyperlipidemia [facility], [facility] 10/23/2018 J02.9 Acute pharyngitis, unspecified Veronica Amaris, [facility] 10/23/2018 R05 Cough Veronica Amaris, [facility] 10/23/2018 R09.02 Hypoxemia Veronica [facility], [facility] 10/23/2018 R53.83 Other fatigue [facility], [facility] 10/23/2018 D64.9 [facility]emia, [facility] Plan of Treatment 03/25/2019 - Veronica Jarrettbhart, FNPM25.561 Pain in right kneeComments:I think you AT LEAST should go see the surgeon to pyugnakB21.562 Pain in left kneeG89.4 Chronic pain syndromeNew Medication:Gabapentin 300 mg - take 1 capsule by mouth three times a day as needed for painComments:arm and leg pain consistent with her history of fibro , advised retry [id number] Pain in right twmokgmxW87.03 Drug induced constipationComments:You need to use the Miralax every day for several weeks; maybe for lifeM79.671 Pain in right footM79.672 Pain in left footK21.9 Gastro-esophageal reflux disease without esophagitisComments:You need to do your homework here and find out which one is causing the troublePossible culprits:velafexine, primidone, pramipexoleCall MAREN if condition changes/worsens in any wayAllComments:Medication Management Patient Understands medications he 's taking? Yes No Are there Barriers to Adherence? Yes No Has the patient been asked about herbal supplements and therapies, andOTC meds? Yes No As always, we strongly encourage a healthy diet and making physical activity a part of your every day life. If you have questions about how or where to start, please contact the office. 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 [id number] [phone]
--- OUTSIDE RECORDS SUMMARY | 2019-04-08 20:44 | XMS REPORT | Continuity of Care Document ---
:1940 External Reference #:[id number] Author Name Lincoln Swartz M.D. Address [address] [place] [address] Care Team Providers Name Role Phone Manas Villeda MD - Family Medicine Care Team Information Yarn Dyer Luana Schwarz - Obstetrics & Care Team Information Yarn Dyer [phone] [facility] - Care Team Information Yarn Dyer [phone] Gastroenterology Cielo Cook MD - Hematology & Care Team Information [facility] - Pain Care Team Information Yarn Dyer [phone] Radames Lee MD - Orthopaedic Care Team Information Yarn Dyer [phone] Surgery of the Spine Avinash Romero MD - Hematology Care Team Information Yarn Dyer [phone] Brian Smallwood MD - Ophthalmology Care Team Information [facility] Care Team Information Yarn Dyer [phone] [facility] Care Team Information Yarn Dyer [phone] Problems Active Problems Provider Date Hypothyroidism Manas Villeda M.D. Onset: 2013 Gouty arthropathy Manas Villeda M.D. Onset: 2013 Restless legs Manas Villeda M.D. Onset: 2013 Essential hypertension Manas Villeda M.D. Onset: 2013 Asthma without status asthmaticus Manas Villeda M.D. Onset: 2013 Degenerative joint disease involving Manas Villeda M.D. Onset: 2013 multiple joints Mixed hyperlipidemia Manas Villeda M.D. Onset: 2013 Gastroesophageal reflux disease Manas Villeda M.D. Onset: 2013 Chronic pain syndrome Manas Villeda M.D. Onset: 03/16/2018 Edema Lincoln Swartz M.D. Onset: 04/05/2019 Shoulder joint pain Lincoln Swartz M.D. Onset: 04/05/2019 Localized, primary osteoarthritis Lincoln Swartz M.D. 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 Social History Type Date Description Comments Sex [...] Medications SIG Qnty Indications Ordering Date Provider Diclofenac Sodium apply 2 gm to 100gm Lincoln Pina 04/05/2019 1% Gel affected joint Jeane Swartz four times a day Nitrofurantoin Monohyd 1 by mouth two 14caps Lincoln Pina 04/02/2019 Macro times a day Jeane Swartz 100mg Capsules Gabapentin take 1 capsule by 90caps G89.4 Veronica 03/25/2019 300mg Capsules mouth three times Amaris, [employer] a day as needed for pain Methocarbamol 1 by mouth twice 60tabs M25.511 Delfina Alissa 01/28/2019 500mg a day as needed Collazo, [employer] Tablets spasm Metoprolol Succinate 1 by mouth twice 60tabs Veronica 12/21/2018 ER a day Amaris, [employer] 25mg Tablets ER 24HR Hydrocodone-Acetaminop 2 tablets by 240tabs Veronica 11/13/2018 hen mouth every 6 Amaris, [employer] 10-325mg Tablets hours as needed pain Miralax 17 grams every 24units K59.03 Veronica 11/13/2018 3350NF Packet day with large Amaris [employer] glass water Plavix 1 by mouth every 90tabs Manas Villeda, 03/16/2018 75mg Tablets day M.D. Levothyroxine Sodium Take 1 Tablet 90tabs Veronica 08/29/2017 Every Day Amaris, [employer] 175mcg Tablets Venlafaxine HCL ER take 1 capsule by 90caps R23.2 Veronica 04/07/2015 37.5mg mouth every night JOSE MARIA GlezP Caps ER 24HR at bedtime Levocetirizine Take 1 Tablet 90tabs Veronica 07/12/2014 Dihydrochloride Every Day Amaris, [employer] 5mg Tablets Omeprazole 1 po bid 180caps K21.9 Veronica 05/02/[address] take 2 tablets Unknown 50mg Tablets every night at bedtime Vitamin B12 100mcg qd Unknown Torsemide take 2 pill a day Unknown 10mg Tablets for fluid Amiodarone HCL 1 by mouth every 90tabs Veronica 100mg day Amaris, [employer] Tablets Breo Ellipta 1 inhalation once Unknown per day, rinse, 100-25mcg/Inh Aerosol samples Pramipexole Take 2 Tablets 180tabs Veronica Dihydrochloride Every Night AT Amaris, [employer] 1mg Bedtime Tablets Amitriptyline HCL Take 1 Tablet AT 90tabs Veronica 10mg Bedtime Amaris, [employer] Tablets Amlodipine Besylate take 2 tablets 180tabs Manas Villeda, 5mg every day M.D. Tablets Melatonin 1 cap by mouth Unknown 10mg Capsules every day at bedtime Ezetimibe 1 by mouth every Unknown 10mg Tablets day Ventolin HFA 2 puffs every 6 3units Veronica 108(90Base) hours as needed VY Glez mcg/Act Aerosol Albuterol Sulfate use four times a 180ml Veronica day as needed VY Glez (2.5mg/3ML) 0.083% Nebulizer Colace 2 by mouth twice 540caps Veronica 100mg Capsules a day for bowels AmarisVY morales Multivitamin With 1 po qd 100tabs Unknown Folic Acid supplement Tablets Senna S 1 by mouth twice 180tabs Veronica 8.6-50mg Tablets a day VY Glez Calcium/Mag 1 po qd 30units Unknown Chewtabs Singulair take 1 tablet 90tabs Veronica 10mg Tablets every day VY Glez Fluticasone Propionate Use 2 Sprays In 48units Veronica Each Nostril AT VY Glez 50mcg/Act Suspension Bedtime Aspirin 1 by mouth every Unknown 81mg Tablets DR day Vitamin D 2 by mouth every Unknown 1000Unit day Tablets Shark Cartilage 2 po tid Unknown 500mg Capsules History Medications Pyridium 1 by mouth three 20tabs Lincolnjason Swartz, 04/02/2019 - 100mg times a day as M.D. 04/03/2019 Tablets needed Keflex 1 by mouth twice a 14caps Veronica 01/28/2019 - 500mg day x 7 days JOSE MARIA GlezP 03/25/2019 Capsules Brace bilateral knee Veronica 12/08/2018 - braces for support, Amaris, [facility] 03/25/2019 strength with walking, stability Brace lumbar back Veronica 12/08/2018 - support, ind: JOSE MARIA GlezP 03/25/2019 chronic pain, chronic lumbago Nystatin 5 milliliters swish 250ml J02.9 Veronica 10/23/2018 - and spit orally JOSE MARIA GlezP 11/13/2018 961036Azar/ML four times a day Suspension Fluconazole 1 po daily x 2 days 2tabs J02.9 Veronica 10/23/2018 - 150mg if liquid nystatin Amaris, [employer] 11/13/2018 Tablets fails to resolve symptoms in 3-4 days of use Hold Amiodorone While Using Diflucan Zithromax 2 by mouth every 6tabs J02.9 Veronica 10/23/2018 - 250mg day today , then 1 JOSE MARIA GlezP 11/13/2018 Tablets by mouth every day times 4 Immunizations CPT Code Status Date Vaccine Lot # [id number] Given 04/05/2019 High-Dose, Influenza Virus Vacccine-fluzone 65 and [id number] older [id number] Given 05/15/2018 High-Dose, Influenza Virus Vacccine-fluzone 65 and [id number] older 17919 Given 04/10/2017 High-Dose, Influenza Virus Vacccine-fluzone 65 and [id number] older 51215 Given 12/24/2016 Tdap Tetanus, W Pertussis [id number] Given 12/24/2016 Pneumococcal Conjugate Vacc-13 [id number] 78029 Given 04/10/2016 Influenza Vac, Quadrivalent, Slit Virus, Im [id number] Given 05/08/2015 Pneumococcal Immunization [id number] 15538 Given 05/08/2015 Influenza Vac, Quadrivalent, Slit Virus, Im [id number] Vital Signs Date Vital Result Comment 04/05/2019 3:21pm BP Systolic 140 mmHg BP Diastolic 76 mmHg Heart Rate 66 /min Body Temperature 97.3 F Respiratory Rate 20 /min 03/25/2019 1:57pm BP Systolic 100 mmHg BP Diastolic 70 mmHg Heart Rate 62 /min Body Temperature 97.3 F Height 61 inches 5'1" Results Test Date Facility Test Result H/L Range Note CBC Auto Diff 12/08/2018 [facility] [place] White Blood Count 5.8 10^3/uL Normal 3.5- [...] Cells % 0.1 Basic Metabolic Panel 12/08/2018 [facility] Sodium 139 mmol/L Normal 135-145 Potassium 4.5 [...] Egfr 42.1 >60 1 Comprehensive Metabolic 11/13/2018 [facility]) Sodium 136 mEq/L 134-149 Prof Potassium 4.8 [...] Intact 48 pg/mL 15-65 3 finding [address] [place] [address] (607)- - Albumin 4.3 g/dL 3.5-4.8 Phosphorus 4.1 mg/dL 2.5-4.5 Iron And 11/13/2018 [facility] Iron Bind.Cap.(Tibc) 230 g/dL Low 250-450 [facility] [address] [place] [address] (607)- - Uibc 156 g/dL 118-369 Iron 74 g/dL 27-139 Iron Saturation 32 % 15-55 CBC Auto Diff 11/02/2018 [facility] [place] White Blood Count 6.2 10^3/uL Normal 3.5- [...] Blood Cells % 0.1 Laboratory test 10/23/2018 [facility] Quickstrep NEGATIVE Negative finding (607)- - CBC Auto Diff 10/19/2018 [facility] White Blood 6.3 10^3/uL Normal 3.5-10.8 Count [...] nt Procedures Date Code Description Status 01/20/2017 [id number] Mammogram Completed 07/27/2015 [id number] Mammogram Completed 05/20/2014 [id number] Mammogram Completed 09/18/2013 [id number] Colonoscopy Completed Medical Devices Description No Information Available Encounters Type Date Location Provider Dx Diagnosis Office Visit 03/25/2019 [facility] Office Veronica M25.561 Pain in right 1:45p Amaris, [employer] knee M25.562 Pain in left knee G89.4 Chronic pain syndrome M25.511 Pain in right shoulder K59.03 Drug induced constipation M79.671 Pain in right foot M79.672 Pain in left foot K21.9 Gastro-esophageal reflux disease without esophagitis Office Visit 01/28/2019 3:15p [facility] Office Veronica M25.511 Pain in right Amaris, [employer] shoulder M79.605 Pain in left leg M25.561 Pain in right knee M25.562 Pain in left knee G89.4 Chronic pain syndrome Office Visit 12/08/2018 2:45p [facility] Office Evronica K59.03 Drug induced Amaris, [employer] constipation K56.41 Fecal impaction G89.4 Chronic pain syndrome R13.10 Dysphagia, unspecified Office Visit 11/13/2018 10:45a Main Office Veronica Amaris, M25.562 Pain in left [employer] knee K59.03 Drug induced constipation K56.41 Fecal impaction G89.4 Chronic pain syndrome R60.0 Localized edema N18.3 Chronic kidney disease, stage 3 (moderate) D64.9 Anemia, unspecified E78.2 Mixed hyperlipidemia Office Visit 10/23/2018 1:00p Main Office Veronica J02.9 Acute pharyngitis, Amaris, [employer] unspecified R05 Cough R09.02 Hypoxemia R53.83 Other fatigue D64.9 Anemia, unspecified Assessments Date Code Description Provider 04/05/2019 Z23 Encounter for immunization Lincoln Swartz M.D. 04/05/2019 R60.0 Localized edema Lincoln Swartz M.D. 04/05/2019 M25.511 Pain in right shoulder Lincoln Swartz M.D. 04/05/2019 M17.0 Bilateral primary osteoarthritis of knee Lincoln Swartz M.D. 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 03/25/2019 M25.561 Pain in right knee Veronica Amaris, [facility] 03/25/2019 M25.562 Pain in left knee Veronica Amaris, [employer] 03/25/2019 G89.4 Chronic pain syndrome Veronica Amaris, [facility] 03/25/2019 M25.511 Pain in right shoulder Veronica Amaris, [facility] 03/25/2019 K59.03 Drug induced constipation Veronica Amaris, [facility] 03/25/2019 M79.671 Pain in right foot Veronica Amaris, [facility] 03/25/2019 M79.672 Pain in left foot Veronica Amaris, [employer] 03/25/2019 K21.9 Gastro-esophageal reflux disease without Veronica Amaris , [facility] esophagitis 01/28/2019 M25.511 Pain in right shoulder Veronica Amaris, [facility] 01/28/2019 M79.605 Pain in left leg Veronica Amaris, [facility] 01/28/2019 M25.561 Pain in right knee Veronica Amaris, [facility] 01/28/2019 M25.562 Pain in left knee Veronica Amaris, [employer] 01/28/2019 G89.4 Chronic pain syndrome Veronica Amairs, [facility] 12/08/2018 K59.03 Drug induced constipation Veronica Amaris, [facility] 12/08/2018 K56.41 Fecal impaction Veronica Amaris, [facility] 12/08/2018 G89.4 Chronic pain syndrome Veronica Amaris, [facility] 12/08/2018 R13.10 Dysphagia, unspecified Veronica Amaris, [facility] 11/13/2018 M25.562 Pain in left knee Veronica Amaris, [facility] 11/13/2018 K59.03 Drug induced constipation Veronica Amaris, [facility] 11/13/2018 K56.41 Fecal impaction Veronica Amaris, [facility] 11/13/2018 G89.4 Chronic pain syndrome Veronica Amaris, [facility] 11/13/2018 R60.0 Localized edema Veronica Amaris, [facility] 11/13/2018 N18.3 Chronic kidney disease, stage 3 (moderate) Veronica Amaris, [facility] 11/13/2018 D64.9 Anemia, unspecified Veronica Amaris, [facility] 11/13/2018 E78.2 [facility] 10/23/2018 J02.9 Acute pharyngitis, unspecified Veronica [facility], [facility] 10/23/2018 R05 [facility] 10/23/2018 R09.02 Hypoxemia [facility], [facility] 10/23/2018 R53.83 Other fatigue [facility], [facility] 10/23/2018 D64.9 Anemia, unspecified [facility], [facility] Plan of Treatment Future Appointment(s):04/30/2019 3:40 pm - Lincoln Swartz M.D. at [facility]04/05/2019 - Lincoln Swartz M.D.Z23 Encounter for immunizationFollow up :Followup:. (Follow up)R60.0 Localized edemaNew Labs:CBC Electronic ([facility]), Ordered: 04/05/19Comp Metabolic-ALL [facility] Compani, Ordered: 04/05/19Free T4 ([facility]/ [facility]), Ordered: 04/05/19TSH ([facility]), Ordered: 04/05/19Magnesium ( [facility]), Ordered: 04/05/19M25.511 Pain in right yutlzumuO39.0 Bilateral primary osteoarthritis of kneeI25.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 [place] coronary artery without angina pectorisAllNew Medication:Diclofenac Sodium 1 % - apply 2 gm to affected joint four times a dayComments:Medication Management Patient Understands medications she's taking? Yes No Are there Barriers to Adherence? Yes No Has the patient been asked about herbal supplements and therapies, and OTC meds? 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
--- OUTSIDE RECORDS SUMMARY | 2019-04-08 20:44 | XMS REPORT | Continuity of Care Document ---
:1940 External Reference #:[id number] Author Name Agnes Boss NP (transmitted by agent of provider Hali Roldan) Address [address] [place] [address] Care Team Providers Name Role Phone Roger Giron MD - Internal Care Team Information Foundation Drill Operator Veronica Montiel FNP - Family Care Team Information Foundation Drill Operator Manas Villeda MD - Family Care Team Information Foundation Drill Operator [phone] Medicine Estelita Brown MD - Vascular Surgery Care Team Information Foundation Drill Operator [phone] Arnold Holguin MD - Hospitalist Care Team Information Foundation Drill Operator [phone] Problems Active Problems Provider Date Restless legs Jaziel Hurst M.D. Onset: 04/06/2015 Dyspnea Sharon Peter MD Onset: 06/10/2016 Asthma without status asthmaticus Sharon Peter MD Onset: 06/10/2016 Disturbance in sleep behavior Sharon Peter MD Onset: 06/10/2016 Morbid obesity Sharon Peter MD Onset: 06/10/2016 Encounter for planned postprocedural Bennie Herron M.D., [facility] Onset: wound closure Angina pectoris Bryson Steiner [...] disease of Lennox Singh M.D. Onset: 01/24/2018 [place] coronary artery without angina pectoris Contusion of abdominal wall Lennox Singh M.D. Onset: 01/25/2018 Chest pain Shanda Gregory D.O. Onset: 01/31/2018 Hypothyroidism Ivanna Palomo.OKandi Onset: 01/31/2018 Chronic diastolic heart failure Shanda Gregory D.O. Onset: 02/01/2018 Hypertensive heart and chronic kidney Shanda Gregory D.O. Onset: 02/01/2018 disease with heart failure and [...] disease of Arnold Holguin MD Onset: 07/07/2018 [place] coronary artery with unspecified angina pectoris Social History Type Date Description Comments Sex Unknown Tobacco Use Start: Unknown Never Smoked Cigarettes Smoking Status Reviewed: 03/17/19 Never Smoked Cigarettes ETOH Use Rarely consumes [...] Medications SIG Qnty Indications Ordering Date Provider Amiodarone HCL 1/2 tab by mouth 90tabs You S. 07/23/2018 200mg every day Delgado, DO Tablets FACC Torsemide 1 by mouth every 90tabs You S. 07/23/2018 20mg Tablets day until seen on Delgado, DO by grief counselor FACC Plavix take one tablet by 90tabs You S. 02/27/2018 75mg Tablets mouth daily Delgado, DO FACC Amlodipine Besylate 1 by mouth every 90tabs I25.119 You S. 08/20/2017 10mg day Delgado, DO Tablets FACC Ezetimibe take one tablet 90tabs E78.5 You S. 06/27/2017 10mg Tablets daily, generic if Delgado, DO available FACC Oxygen please use o2 at 1units R09.02 Sharon 08/15/2016 Misc 2l/min with MD Brittani exertion. pls provide pt with light wt conserving device for o2 Ventolin HFA 2 puffs by mouth Unknown 108(90Base) four times a day mcg/Act Aerosol as needed Breo Ellipta 1 puff inhaled Unknown daily 100-25mcg/Inh Aerosol Shark Cartilage 2 by mouth twice Unknown 500mg a day Calcium& Magnesium 1 po daily Unknown 750-465mg Aspirin Ec 1 by mouth every Unknown 81mg Tablets day DR Vitamin D 2 tabs by mouth 90tabs Unknown 1000Units everyday Tablets Melatonin 1 tab by mouth at Unknown 10mg Capsules bedtime as needed for insomnia Omeprazole 1 by mouth every 90caps You S. 40mg Capsules day DO COSME Delgado FACRachael Metoprolol Succinate 1 by mouth twice a 180tabs You S. ER day DO Danny 25mg Tablets ER 24HR FAC Primidone take 3 tablets 270tabs You S. 50mg Tablets (150 mg) by mouth DO Danny at bedtime FAC Pramipexole take 2 at bedtime Amaris, Dihydrochloride Veronica, PRICING DIRECTOR 1mg Tablets Levothyroxine Sodium 1 by mouth every Unknown day 175mcg Tablets Amitriptyline HCL take 1 tablets Unknown 10mg every night Tablets Levocetirizine 1 by mouth every Unknown Dihydrochloride day 5mg Tablets Venlafaxine HCL 1 qhs per patient 270tabs Jaziel Mansfield. 37.5mg Jeane Hurst Tablets Multivitamin + Folic 1 tablet once a Unknown Acid day 400mcg Tablet Fluticasone Propionate 1 sprays each Unknown nostril twice a 110mcg/Act Suspension day Colace 2 cap po bid Unknown 100mg Capsules Senna take 2 tablets by Unknown 8.6mg Tablets mouth twice a day Albuterol Sulfate qid prn neb 100units Unknown 2.5mg/3ML 0.083% Nebulizer Vitamin B Complex 1 po daily Unknown Singulair 1 po qd 30tabs Unknown 10mg Tablets Hydrocodone-Acetaminop 1-2 po Q4H prn 120tabs Unknown hen 10/325 Tablets History Medications Guaifenesin one to two tablets 30tabs Agnes Boss NP 11/17/2018 - 200mg Tablets by mouth every 4 03/11/2019 hours Medications Administered in Office Medication SIG Qnty Indications Ordering Provider Date Technetium TC 99M Ica Nuclear Schedule 03/26/2018 Tetrofosmin, Per Unit Dose Up To 40 Millicuries Injection Inj, Regadenoson, 0.1 MG You Delgado, DO [facility] 03/25/2018 Injection Technetium TC 99M You Delgado, DO [facility] 03/25/2018 Tetrofosmin, Per Unit Dose Up To 40 Millicuries Injection Immunizations CPT Code Status Date Vaccine Lot # [id number] Given 06/28/1997 Flu Vaccine Vital Signs Date Vital Result Comment 03/17/2019 4:03pm Height 61 inches 5'1" Weight 239.00 lb Pt stated Heart Rate 60 /min BP Systolic 108 mmHg manual right wrist BP Diastolic 62 mmHg manual right wrist O2 % BldC Oximetry 97 % BMI (Body Mass Index) 45.2 kg/m2 01/29/2019 10:56am Height 61 inches 5'1" Weight 240.00 lb per pt Heart Rate 60 /min BP Systolic Sitting 100 mmHg Right lower arm reg cuff BP Diastolic Sitting 64 mmHg Right lower arm reg cuff BP Systolic Standing 104 mmHg Right lower arm reg cuff BP Diastolic Standing 78 mmHg Right lower arm reg cuff Respiratory Rate 16 /min Pain Level 9 knee pain O2 % BldC Oximetry 93 % BMI (Body Mass Index) 45.3 kg/m2 Results Test Date Facility Test Result H/L Range Note Laboratory test 02/05/2019 [facility] TSH 1.71 mcIU/mL Normal 0.34-5.[address] ([place] [address] Stim Horm) [phone] Free T4 (Free Thyroxine) 1.18 ng/dL High 0.61-1.12 Liver Function 02/05/2019 [facility] Total Protein 6.6 g/dL Normal 6.4-8.[address] [place] [address] [phone] Albumin 3.9 g/dL Normal 3.2-5.2 Globulin 2.7 g/dL Normal 2-4 Albumin/Globulin Ratio 1.4 Normal 1-3 Total Bilirubin 0.30 mg/dL Normal 0.2-1.0 Alkaline Phosphatase 91 U/L Normal 34-104 Alt 9 U/L Normal 7-52 Ast 16 U/L Normal 13-39 Direct Bilirubin 0.10 mg/dL Normal 0.03-0.18 Indirect Bilirubin 0.2 mg/dL Low 0.3-1.0 Procedures Date Code Description Status 01/29/2019 12216 EKG Tracing & Interpretation Completed 12/08/2018 99106 Diffusing Capacity Completed 12/08/2018 47986 Spirometry Incl Graphic Record Completed 11/10/2018 86251 Destruction ALL Benign Or Premalignant Lesion (Other Completed Than [place] 11/09/2018 31174 ECHO Transthoracic, Real-Time 2D With Doppler And Completed Color Flow 11/09/2018 62698 EKG Tracing & Interpretation Completed 08/06/2016 [id number] Diabetic Retinal Eye Exam Completed Medical Devices Description No Information Available Encounters Type Date Location Provider Dx Diagnosis Office Visit 01/29/2019 Cardiology You Delgado, Z95.1 Presence of 11:15a [facility] AT DO FAC aortocoronary bypass [place] graft 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[place] coronary artery w/o ang pctrs I48.0 Paroxysmal atrial fibrillation D64.89 Other specified anemias I50.32 Chronic diastolic (congestive) heart failure E03.9 Hypothyroidism, unspecified N18.9 Chronic kidney disease, unspecified G25.0 Essential tremor D47.1 Chronic myeloproliferative disease I10 Essential (primary) hypertension E78.5 Hyperlipidemia, unspecified I25.2 Old myocardial infarction G25.81 Restless legs syndrome G47.33 Obstructive sleep apnea (adult) (pediatric) Z87.11 Personal history of peptic ulcer disease R51 Headache Office Visit 12/08/2018 4:00p [facility] Avinashvilma Romero, D64.9 Anemia, [facility] AT M.D. unspecified Jose Rafael Office Visit 12/08/2018 11:30a Pulmonology And Sharon R06.02 Shortness of Sleep Services Of MD Brittani breath [facility] J45.909 Unspecified asthma, uncomplicated Office Visit 12/03/2018 [facility] [place] Z79.891 terminal superintendent 2:00p RODRIGO Boss (current) use of opiate analgesic K59.00 Constipation, unspecified K21.9 Gastro-esophageal reflux disease without esophagitis Office Visit 11/17/2018 [facility] [place] K59.00 Constipation, 10:00a RODRIGO Boss unspecified Z79.891 terminal superintendent (current) use of opiate analgesic E66.01 Morbid (severe) obesity due to excess calories R13.10 Dysphagia, unspecified Office Visit 11/10/2018 4:00p [facility] Dermatology AT Kris Yentzer, L82.1 Other seborrheic [place] MD keratosis Z08 Encntr for follow-up exam after trtmt for malignant neoplasm Z85.828 Personal history of other malignant neoplasm of skin L57.0 Actinic keratosis Office Visit 10/23/2018 9:40a Cardiology You MansfieldKandi R06.02 Shortness of Services Of Karina Delgado, DO breath AT [place] FAC 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 graft 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[place] coronary artery w/o ang pctrs I48.0 Paroxysmal atrial fibrillation D64.89 Other specified anemias I50.32 Chronic diastolic (congestive) heart failure E66.8 Other obesity E03.9 Hypothyroidism, unspecified G25.0 Essential tremor N18.9 Chronic kidney disease, unspecified D47.1 Chronic myeloproliferative disease I10 Essential (primary) hypertension E78.5 Hyperlipidemia, unspecified Office Visit 10/13/2018 [facility] Avinash Romero, D47.1 Chronic 3:20p Center Of Karina Ching myeloproliferative AT [place] disease D50.9 Iron deficiency anemia, unspecified R63.0 Anorexia R63.4 Abnormal weight loss R10.9 Unspecified abdominal pain 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 graft Assessments Date Code Description Provider 01/29/2019 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 graft You Delgado, DO FACC 01/29/2019 I25.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 [place] You SKandi Delgado, DO FAC coronary artery with 01/29/2019 I48.0 Paroxysmal atrial fibrillation You Delgado, DO FACC 01/29/2019 D64.89 Other specified anemias You Delgado, DO FACC 01/29/2019 I50.32 Chronic diastolic (congestive) heart You Delgado, DO FACC failure 01/29/2019 E03.9 Hypothyroidism, unspecified You Delgado, DO FACC 01/29/2019 N18.9 Chronic kidney disease, unspecified You Delgado, DO FACC 01/29/2019 G25.0 Essential tremor You Delgado, DO FACC 01/29/2019 D47.1 Chronic myeloproliferative disease You Delgado, DO FACC 01/29/2019 I10 Essential (primary) hypertension You SKandi Delgado, DO [facility] 01/29/2019 E78.5 Hyperlipidemia, unspecified You SKandi Delgado, DO [facility] 01/29/2019 I25.2 Old myocardial infarction You SKandi Delgado, DO [facility] 01/29/2019 G25.81 Restless legs syndrome You SKandi Delgado, DO [facility] 01/29/2019 G47.33 Obstructive sleep apnea (adult) You Urban Delgado, DO [facility] (pediatric) 01/29/2019 Z87.11 Personal history of peptic ulcer disease You Urban Delgado, DO [facility] 01/29/2019 R51 Headache You Urban Delgado, [facility] 12/08/2018 D64.9 Anemia, unspecified Avinash Romero M.D. 12/08/2018 J45.20 Mild intermittent asthma, uncomplicated Sharon Peter MD 12/08/2018 R06.02 Shortness of breath Sharon Peter MD 12/08/2018 J45.909 Unspecified asthma, uncomplicated Sharon Peter MD 12/03/2018 Z79.891 correction (current) use of opiate Agnes Boss, DIRECTORY OPERATOR analgesic 12/03/2018 K59.00 Constipation, unspecified Agnes Boss, DIRECTORY OPERATOR 12/03/2018 K21.9 Gastro-esophageal reflux disease without Agnes Boss, DIRECTORY OPERATOR esophagitis 11/17/2018 K59.00 Constipation, unspecified Agnes Boss, DIRECTORY OPERATOR 11/17/2018 Z79.891 correction (current) use of opiate Agnes Boss, DIRECTORY OPERATOR analgesic 11/17/2018 E66.01 Morbid (severe) obesity due to excess Agnes Boss, DIRECTORY OPERATOR calories 11/17/2018 R13.10 Dysphagia, unspecified Agnes Boss, DIRECTORY OPERATOR 11/10/2018 L82.1 Other seborrheic keratosis Kris Merrill MD 11/10/2018 Z08 Encounter for follow-up examination after Kris Merrill MD completed treatmen 11/10/2018 Z85.828 Personal history of other malignant Kris Merrill MD neoplasm of skin 11/10/2018 L57.0 Actinic keratosis Kris Merrill MD 11/09/2018 R06.02 Shortness of breath You Delgado DO [facility] 11/09/2018 R06.02 Shortness of breath Traveling ECHO 2 10/23/2018 R06.02 Shortness of breath You Delgado, DO [facility] 10/23/2018 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 graft You Delgado, DO [facility] 10/23/2018 I25.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 [place] You Delgado, DO [facility] coronary artery with 10/23/2018 I48.0 Paroxysmal atrial fibrillation You Delgado, DO [facility] 10/23/2018 D64.89 Other specified anemias You Delgado, [facility] 10/23/2018 I50.32 Chronic diastolic (congestive) heart You Delgado, [facility] failure 10/23/2018 E66.8 Other obesity You Delgado, [facility] 10/23/2018 E03.9 Hypothyroidism, unspecified You Delgado, [facility] 10/23/2018 G25.0 Essential tremor You Delgado, [facility] 10/23/2018 N18.9 Chronic kidney disease, unspecified You Delgado, [facility] 10/23/2018 D47.1 Chronic myeloproliferative disease You Delgado, [facility] 10/23/2018 I10 Essential (primary) hypertension You Delgado, [facility] 10/23/2018 E78.5 Hyperlipidemia, unspecified You Delgado, [facility] 10/13/2018 D47.1 Chronic myeloproliferative disease Avinash Romero M.D. 10/13/2018 D50.9 Iron deficiency anemia, unspecified Avinash Romero M.D. 10/13/2018 R63.0 Anorexia Avinash Romero M.D. 10/13/2018 R63.4 Abnormal weight loss Avinash Romero M.D. 10/13/2018 R10.9 Unspecified abdominal pain Avinash Romero M.D. 10/13/2018 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 graft Avinash Romero M.D. Plan of Treatment Future Appointment(s):04/13/2019 3:00 pm - Avinash Romero M.D. at [facility]06/08/2019 3:30 pm - Sharon Peter MD at [facility]11/16/2019 4:10 pm - Kris Merrill MD at [facility] Dermatology AT Qcyvlqgc87/17/2019 3:45 pm - Jaziel Hurst M.D. at [facility] Functional Status Description No Information Available Mental Status Description No Information Available Referrals Refer to Reason for Referral Status Appt Date Cardiac-[facility] Sent [address] [place] [id number] [phone]
[2019-04-08 20:53] VITALS: BP 178/82
--- NOTE | 2019-04-08 21:18 | UC ---
Shoulder Pain HPI - HPI Summary HPI Summary: 78yo woman with a fib, CAD, and multiple chronic problems, who comes with a 3 to 4 month hx of progressive right shoulder pain which began when she was doing cardiac rehab post CABG. Pain is unremitting, not relieved by hydrocodone ( takes 80mg per day), rubs, heat. Pain radiates to her hand, even her fingernails hurt. Saw Dr. villeda this week who arranged an evaluation with Dr. Driver; evaluation is pending 26 April. - History of Current Complaint Chief Complaint: UCUpperExtremity Stated Complaint: R SHOULDER PAIN Time Seen by Provider: 04/08/19 20:48 Hx Obtained From: Patient Onset/Duration: Gradual Onset, Lasting Weeks - many Timing: Constant Severity Initially: Moderate Severity Currently: Severe Location Of Pain: Is Diffuse - right scapular area, right shoulder, Is Discrete @ Pain Intensity: 9 Character: Aching, Throbbing, Stiffness Aggravating Factor(s): Movement - Allergies/Home Medications Allergies/Adverse Reactions: Allergies Allergy/AdvReac Type Severity Reaction Status Date / Time atorvastatin [From Lipitor] Allergy See Comment Verified 04/08/19 20:55 imipramine Allergy Unknown Verified 04/08/19 20:55 Reaction Details Iodinated Contrast Media Allergy Nausea Verified 04/08/19 20:55 [Iodinated Contrast- Oral and IV Dye] misoprostol [From Cytotec] Allergy Itching Verified 04/08/19 20:55 naproxen Allergy Itching Verified 04/08/19 20:55 nitrofurantoin Allergy Unknown Verified 04/08/19 20:55 Reaction Details theophylline [From Uniphyl] Allergy Unknown Verified 04/08/19 20:55 Reaction Details tiagabine [From Gabitril] Allergy Rash Verified 04/08/19 20:55 tizanidine Allergy Unknown Verified 04/08/19 20:55 Reaction Details fentanyl AdvReac Dizziness Verified 04/08/19 20:55 Ccdrzda-Rzg-Aid Reductase AdvReac Vomiting Verified 04/08/19 20:55 Inhibitor PMH/Surg Hx/FS Hx/Imm Hx Endocrine History: Hypothyroidism Cardiovascular History: Cardiac Disease, Hypertension, Atrial Fibrillation GI/ History: Gastroesophageal Reflux Neurological History: Other - tremor - Surgical History Surgical History: Yes Surgery Procedure, Year, and Place: 2008 FUSION LOW BACK. TSP -LSP [place] RODS/SCREWS 2004-- 2010 -TOTAL OF 5 SURGERIES LAST ONE 2011 Xs 2. 2006BILATERAL HIP REPLACEMENT. 06/2003 LEFT HEEL TARSAL TUNNEL -. 12/2004 WART -REMOVED FROM EYELID. 2002 CARPAL TUNNEL - [place]. 2002 Lt KNEE -2 & 2005 09/2002 & 01/2003 Rt KNEE - 3 TIMES - ARTHROSCOPIC. 2007 RIGHT BREAST LUMPECTOMY. 1999 CHOLECYSTECTOMY. TONSILECTOMY- as child. UMBILICAL HERNIA REPAIR. 2008 APPENDECTOMY. 06/2005 [place]ORIAN BREAST REDUCTION. Lt THUMB - GANGLION CYST. T2007 LEFT TOTAL HIP. Rt ARM - "LUMP" REMOVED-. 2005 RT HIP TOTAL REPLACEMENT. 01/2018 CARDIAC STENT. 07/07 heart cath [facility] - Family History Known Family History: Positive: Cardiac Disease - Father used to use NTG. 3 brothers have had CABG. 4th had CVA and ND., Diabetes - Social History Alcohol Use: Rare Alcohol Amount: reports only a couple of drinks 4 times per year Substance Use Type: None Smoking Status (MU): Never Smoked Tobacco Have You Smoked in the Last Year: No - Immunization History Most Recent Influenza Vaccination: April 2016 Most Recent Tetanus Shot: current Most Recent Pneumonia Vaccination: in the past Review of Systems All Other Systems Reviewed And Are Negative: Yes Constitutional: Positive: Fatigue - poor quality sleep due to RLS ENT: Positive: Negative Respiratory: Positive: Negative Cardiovascular: Positive: Other - hx of CAD Gastrointestinal: Positive: Other - treated reflux Genitourinary: Positive: Negative Motor: Positive: Other - right shoulder pain. Aware of progressive knee pain due to OA Musculoskeletal: Positive: Edema - chronic edema ? lymphedema Neurological: Positive: Numbness - some in right hand, chronic, non-dermatomal. Psychological: Positive: Negative Is Patient Immunocompromised?: No Physical Exam Triage Information Reviewed: Yes Appearance: Ill-Appearing - looks chronically unwell, Pain Distress - mild at rest, moderate with movement., Obese, Other: - mildly depressed mood and affect. Vital Signs: Initial Vital Signs Temp 97.8 F 04/08/19 20:46 Pulse 75 04/08/19 20:46 Resp 18 04/08/19 20:46 BP 178/82 04/08/19 20:46 Pulse Ox 100 04/08/19 20:46 Neck: Positive: Supple, Nontender - No increase in pain with flexion, extension , rotation of the cervical spine. Respiratory: Positive: Lungs clear, Normal breath sounds Cardiovascular: Positive: RRR, No Murmur Musculoskeletal Exam: Other - tenderness over supraspinatus, shoulder joint line , deltoid insertion. Musculoskeletal: Positive: ROM Limited @ - right shoulder with abduction to about 90 Diagnostics - Radiology No standard instances Radiology Interpretation Completed By: ED Physician Summary of Radiographic Findings: Per my read () degenerative changes at rght AC joint and mild at glenohumeral joint. Shoulder Course/Dx - Course Course Of Treatment: Discussed advancing orthopedic evaluation of right shoulder pain, consider injection. discussed pain management options limited (eGFR of 35 and hx of edema and CAD) Discussed topical meds--PA of topical NSAID is pending. - Differential Dx/Diagnosis Differential Diagnosis/HQI/PQRI: Bursitis, Rotator Cuff Injury, Sprain, Strain, Tendonitis Provider Diagnosis: Shoulder pain Discharge ED - Sign-Out/Discharge Documenting (check all that apply): Patient Departure All imaging exams completed and their final reports reviewed: No - Discharge Plan Condition: Stable Disposition: HOME Patient Education Materials: Tendinitis (ED) Referrals: Villa Thapa MD [Medical Doctor] - Manas Villeda MD [Primary Care Provider] - Additional Instructions: Please call Dr. Thapa's office in the morning --he often does same day visits and can evaluate your shoulder. Continue heat to the shoulder, and continue your use of hydrocodone. You can buy 4% lidocaine patches over the counter, and try using the patches over the painful area during the day for up to 8 hours. - Billing Disposition and Condition Condition: STABLE Disposition: Home
--- NOTE | 2019-04-09 08:20 | UC ---
- Progress Note Progress Note: Patient Name: JOCELYNE CHILDERS Medical Record#: [id number] Ordering Physician: Lashawn Sultana MD Acct.#: [id number] : 1940 Age: 78 Sex: F Location: [facility] Exam Date: 04/08/192112 ADM Status: DEP ER Order Information: SHOULDER RIGHT 2+ VWS Accession Number: [id number] CPT: 47387 INDICATION: Decreased range of motion in the right shoulder for months. TECHNIQUE: 4 views of the right shoulder were obtained. FINDINGS: The bones appear osteopenic. There are calcifications adjacent to the superior aspect of the acromion process and clavicle. The bones are normal alignment. No fracture is seen. There is mild to moderate osteoarthritic change in the glenohumeral and acromioclavicular joints. IMPRESSION: MILD TO MODERATE OSTEOARTHRITIC CHANGE IN THE GLENOHUMERAL AND ACROMIOCLAVICULAR JOINTS. R0 Preliminary Imaging Read R0 <Electronically signed by Jhon Medellin MD in [place]> 04/09/19733 Dictated By: Jhon Medellin MD Dictated Date/Time: 04/09/19731 Transcribed Date/Time: 04/09/19731 Copy to: CC:Manas Villeda MD; Lashawn Sultana MD Imaging - [facility] Imaging [facility] [address] [place] [address] ph [phone]) ph ([phone]) ph ([phone]) This report is only to be considered final once signed by the Provider(s) as displayed in the "<Electronically Signed by >" field (s). Absence of a signature indicates the report is in a draft status and still needs to be finalized. In the event this document was created by someone other than the signing Provider, the individual initiating the document will be listed in the "Entered by:" or "Dictated by:" simms. 1 of 1 Course/Dx - Diagnoses Provider Diagnoses: Shoulder pain Discharge ED - Sign-Out/Discharge Documenting (check all that apply): Post-Discharge Follow Up All imaging exams completed and their final reports reviewed: Yes - Discharge Plan Condition: Stable Disposition: HOME Patient Education Materials: Tendinitis (ED) Referrals: iVlla Thapa MD [Medical Doctor] - Manas Villeda MD [Primary Care Provider] - Additional Instructions: Please call Dr. Thapa's office in the morning --he often does same day visits and can evaluate your shoulder. Continue heat to the shoulder, and continue your use of hydrocodone. You can buy 4% lidocaine patches over the counter, and try using the patches over the painful area during the day for up to 8 hours. - Billing Disposition and Condition Condition: STABLE Disposition: Home
== END 2019-04-08 22:13 | disposition home or self-care (01) ==
LOC: UCCORT 20:33
DX: M19.011 Primary osteoarthritis, right shoulder (principal); Z95.1 Presence of aortocoronary bypass graft; I25.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 native coronary artery without angina pectoris; I10 Essential (primary) hypertension

== ENCOUNTER 2019-04-15 13:19 | Emergency (ER) | payer MEDICARE ==
--- OUTSIDE RECORDS SUMMARY | 2019-04-15 13:42 | XMS REPORT | Continuity of Care Document ---
:1940 External Reference #:[id number] Author Name Marisela Driver M.D. (transmitted by agent of provider Richard Phipps) Address [address] [place] [id number] Care Team Providers Name Role Phone Roger Giron MD - Internal Care Team Information Psych Specialist Medicine Veronica Glez FNP - Family Care Team Information Psych Specialist [phone] Manas Villeda MD - Family Care Team Information Psych Specialist [phone] Medicine Estelita Brown MD - Vascular Surgery Care Team Information Psych Specialist Arnold Holguin MD - Hospitalist Care Team Information Psych Specialist [phone] Problems Active Problems Provider Date Restless legs Jaziel Hurst M.D. Onset: 04/06/2015 Dyspnea Sharon Peter MD Onset: 06/10/2016 Asthma without status asthmaticus Sharon Peter MD Onset: 06/10/2016 Disturbance in sleep behavior Sharon Peter MD Onset: 06/10/2016 Morbid obesity Sharon Peter MD Onset: 06/10/2016 Encounter for planned postprocedural Bennie Herron M.D., [facility], [facility] Onset: wound closure Angina pectoris Bryson [...] disease of Lennox Singh M.D. Onset: 01/24/2018 [place] coronary artery without angina pectoris Contusion of abdominal wall Lennox Singh M.D. Onset: 01/25/2018 Chest pain Ivanna Palomo.OKandi Onset: 01/31/2018 Hypothyroidism Shanda Gregory D.OKandi Onset: 01/31/2018 Chronic diastolic heart failure Ivanna Palomo.OKandi Onset: 02/01/2018 Hypertensive heart and chronic kidney Ivanna Palomo.OKandi Onset: 02/01/2018 disease with heart failure and [...] disease of Arnold Holguin MD Onset: 07/07/2018 [place] coronary artery with unspecified angina pectoris Localized, primary osteoarthritis Marisela Driver M.D. Onset: 04/12/2019 Social History Type Date Description Comments Sex Unknown Tobacco Use Start: Unknown Never Smoked Cigarettes Smoking Status Reviewed: 04/12/19 Never Smoked Cigarettes ETOH Use Rarely consumes [...] HCL 1/2 tab by mouth 90tabs You SKandi 07/23/2018 200mg every day Delgado, DO Tablets FACC Torsemide 1 by mouth every 90tabs You SKandi 07/23/2018 20mg Tablets day until seen on Delgado, DO by physical therapy technician FACC Plavix take one tablet by 90tabs You SKandi 02/27/2018 75mg Tablets mouth daily Delgado, DO FACC Amlodipine Besylate 1 by mouth every 90tabs I25.119 You SKandi 08/20/2017 10mg day Delgado, DO Tablets FACC Ezetimibe take one tablet 90tabs E78.5 You SKandi 06/27/2017 10mg Tablets daily, generic if Delgado, [...] take 2 at bedtime Amaris, Dihydrochloride Veronica, ASSISTED SALES REPRESENTATIVE 1mg Tablets Levothyroxine Sodium 1 by mouth every Unknown day 175mcg Tablets Amitriptyline HCL take 1 tablets Unknown 10mg every night Tablets Levocetirizine 1 by mouth every Unknown Dihydrochloride day 5mg Tablets Venlafaxine HCL 1 qhs per patient 270tabs Jaziel S. 37.5mg Jeane Hurst Tablets Multivitamin + Folic [...] Inj, Regadenoson, 0.1 MG You Delgado, DO [facility] 03/25/2018 Injection Technetium TC 99M You Delgado, DO [facility] 03/25/2018 Tetrofosmin, Per Unit Dose Up To 40 Millicuries Injection Immunizations CPT Code Status Date Vaccine Lot # [id number] Given 06/28/1997 Flu Vaccine Vital Signs Date Vital Result Comment 04/12/2019 4:00pm Height 60 inches 5'0" Weight 242.00 lb Heart Rate 70 /min BP Systolic 130 mmHg BP Diastolic 84 mmHg Respiratory Rate 18 /min Pain Level 8 BMI (Body Mass Index) 47.3 kg/m2 03/17/2019 4:03pm Height 61 inches 5'1" Weight 239.00 lb Pt stated Heart Rate 60 /min BP Systolic 108 mmHg manual right wrist BP Diastolic 62 mmHg manual right wrist O2 % BldC Oximetry 97 % BMI (Body Mass Index) 45.2 kg/m2 Results Test Date Facility Test Result H/L Range Note Laboratory test 02/05/2019 [facility] TSH 1.71 mcIU/mL Normal 0.34-5.[address] ([place] [address] Stim Horm) [phone] Free T4 (Free Thyroxine) 1.18 ng/dL High 0.61-1.12 Liver Function 02/05/2019 [facility] Total Protein 6.6 g/dL Normal 6.4-8.[address] [place] [address] [phone] Albumin 3.9 g/dL Normal 3.2-5.2 Globulin 2.7 g/dL Normal 2-4 Albumin/Globulin Ratio 1.4 Normal 1-3 Total Bilirubin 0.30 mg/dL Normal 0.2-1.0 Alkaline Phosphatase 91 U/L Normal 34-104 Alt 9 U/L Normal 7-52 Ast 16 U/L Normal 13-39 Direct Bilirubin 0.10 mg/dL Normal 0.03-0.18 Indirect Bilirubin 0.2 mg/dL Low 0.3-1.0 Procedures Date Code Description Status 01/29/2019 93319 EKG Tracing & Interpretation Completed 12/08/2018 18547 Diffusing Capacity Completed 12/08/2018 53312 Spirometry Incl Graphic Record Completed 11/10/2018 32477 Destruction ALL Benign Or Premalignant Lesion (Other Completed Than [place] 11/09/2018 23254 ECHO Transthoracic, Real-Time 2D With Doppler And Completed Color Flow 11/09/2018 53364 EKG Tracing & Interpretation Completed 08/06/2016 [id number] Diabetic Retinal Eye Exam Completed Medical Devices Description No Information Available Encounters Type Date Location Provider Dx Diagnosis Office Visit 04/12/2019 Orthopedic Marisela Villa, M25.562 Pain in left knee 3:15p Services Of Sita Ching M25.561 Pain in right knee M25.462 Effusion, left knee M25.461 Effusion, right knee M17.0 Bilateral primary osteoarthritis of knee M25.511 Pain in right shoulder Office 03/17/2019 [facility] Gastroenterology Agnes K21.0 Gastro-esophageal Visit 4:00p RODRIGO Boss reflux disease with esophagitis Office 01/29/2019 Cardiology Services You Duggan Z95.1 Presence of Visit 11:15a Of [facility] DO aortocoronary bypass FACC graft 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[place] coronary artery w/o ang pctrs I48.0 Paroxysmal [...] disease R51 Headache Office Visit 12/08/2018 4:00p [place] [facility] Avinash Romero, D64.9 Anemia, Center Of [facility] AT .DKandi unspecified [place] Office Visit 12/08/2018 11:30a Pulmonology And Sharon R06.02 Shortness of Sleep Services Of MD Brittani breath [facility] J45.909 Unspecified asthma, uncomplicated Office Visit 12/03/2018 [facility] Gastroenterology Agens Z79.891 FCI 2:00p RODRIGO Boss (current) use of opiate analgesic K59.00 Constipation, unspecified K21.9 Gastro-esophageal reflux disease without esophagitis Office Visit 11/17/2018 [facility] Gastroenterology Agnes K59.00 Constipation, 10:00a RODRIGO Boss unspecified Z79.891 FCI (current) use of opiate analgesic E66.01 Morbid (severe) obesity due to excess calories R13.10 Dysphagia, unspecified Office Visit 11/10/2018 4:00p [facility] Dermatology AT Kris Merrill, L82.1 Other seborrheic [place] keratosis Z08 Encntr for follow-up exam after trtmt for malignant neoplasm Z85.828 Personal history of other malignant neoplasm of skin L57.0 Actinic keratosis Office Visit 10/23/2018 9:40a Cardiology You Duggan R06.02 Shortness of Services Of [facility] Delgado, DO breath AT [place] FACC 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 I48.0 Paroxysmal atrial fibrillation D64.89 Other specified anemias I50.32 Chronic diastolic (congestive) heart failure E66.8 Other obesity E03.9 Hypothyroidism, unspecified G25.0 Essential tremor N18.9 Chronic kidney disease, unspecified D47.1 Chronic myeloproliferative disease I10 Essential (primary) hypertension E78.5 Hyperlipidemia, unspecified Office Visit 10/13/2018 [place] [facility] Avinash Bamegan, D47.1 Chronic 3:20p Center [facility] Jeane myeloproliferative AT [place] disease D50.9 Iron deficiency anemia, unspecified R63.0 Anorexia R63.4 Abnormal weight loss R10.9 Unspecified abdominal pain 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 graft Assessments Date Code Description Provider 04/12/2019 M25.562 Pain in left knee Marisela Driver M.D. 04/12/2019 M25.561 Pain in right knee Marisela Driver M.D. 04/12/2019 M25.462 Effusion, left knee Marisela Driver M.D. 04/12/2019 M25.461 Effusion, right knee Marisela Driver M.D. 04/12/2019 M17.0 Bilateral primary osteoarthritis of knee Marisela Driver M.D. 04/12/2019 M25.511 Pain in right shoulder Marisela Driver M.D. 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 [place] You Delgado, DO [facility] coronary artery with 01/29/2019 I48.0 Paroxysmal atrial fibrillation Youprimitivo Delgado, DO [facility] 01/29/2019 D64.89 Other specified anemias You Delgado, [facility] 01/29/2019 I50.32 Chronic diastolic (congestive) heart You SKandi Delgdao, DO [facility] failure 01/29/2019 E03.9 Hypothyroidism, unspecified Youprimitivo Delgado, [facility] 01/29/2019 N18.9 Chronic kidney disease, unspecified You Delgado, [facility] 01/29/2019 G25.0 Essential tremor You SKandi Delgado, [facility] 01/29/2019 D47.1 Chronic myeloproliferative disease You Delgado, [facility] 01/29/2019 I10 Essential (primary) hypertension You SKandi Delgado, [facility] 01/29/2019 E78.5 Hyperlipidemia, unspecified Youprimitivo Delgado, [facility] 01/29/2019 I25.2 Old myocardial infarction You Pollackgeronimo [facility] 01/29/2019 G25.81 Restless legs syndrome You SKandi Delgado, [facility] 01/29/2019 G47.33 Obstructive sleep apnea (adult) You SKandi Delgado, [facility] (pediatric) 01/29/2019 Z87.11 Personal history of peptic ulcer disease You SKandi Delgado, DO [facility] 01/29/2019 R51 Headache You Delgado, [facility] 12/08/2018 D64.9 Anemia, unspecified Avinash Romero M.D. 12/08/2018 J45.20 Mild intermittent asthma, uncomplicated Sharon Peter MD 12/08/2018 R06.02 Shortness of breath Sharon Peter MD 12/08/2018 J45.909 Unspecified asthma, uncomplicated Sharon Peter MD 12/03/2018 Z79.891 exterminator (current) use of opiate Agnes Boss, [employer] analgesic 12/03/2018 K59.00 Constipation, unspecified Agnes Boss, [employer] 12/03/2018 K21.9 Gastro-esophageal reflux disease without Agnes Boss, [employer] esophagitis 11/17/2018 K59.00 Constipation, unspecified Agnes Boss, [employer] 11/17/2018 Z79.891 [facility]CI (current) use of opiate Agnes Boss, [employer] analgesic 11/17/2018 E66.01 Morbid (severe) obesity due to excess Agnes Boss, [employer] calories 11/17/2018 R13.10 Dysphagia, unspecified Agnes Boss, [employer] 11/10/2018 L82.1 Other seborrheic keratosis Kris Merrill MD 11/10/2018 Z08 Encounter for follow-up examination after Kris Merrill MD completed treatmen 11/10/2018 Z85.828 Personal history of other malignant Kris Merrill MD neoplasm of skin 11/10/2018 L57.0 Actinic keratosis Kris Merrill MD 11/09/2018 R06.02 Shortness of breath You Delgado DO [facility] 11/09/2018 R06.02 Shortness of breath Traveling ECHO 2 10/23/2018 R06.02 Shortness of breath You Delgado, DO [facility] 10/23/2018 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 graft You Delgado DO [facility] 10/23/2018 I25.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 [place] You Delgado, DO [facility] coronary artery with 10/23/2018 I48.0 Paroxysmal atrial fibrillation You Delgado DO [facility] 10/23/2018 D64.89 Other specified anemias You Delgado DO [facility] 10/23/2018 I50.32 Chronic diastolic (congestive) heart You Delgado DO [facility] failure 10/23/2018 E66.8 Other obesity You Delgado DO [facility] 10/23/2018 E03.9 Hypothyroidism, unspecified You Delgado DO [facility] 10/23/2018 G25.0 Essential tremor You Delgado DO [facility] 10/23/2018 N18.9 Chronic kidney disease, unspecified You Delgado, DO [facility] 10/23/2018 D47.1 Chronic myeloproliferative disease You Delgado, DO [facility] 10/23/2018 I10 Essential (primary) hypertension You Delgado, DO [facility] 10/23/2018 E78.5 Hyperlipidemia, unspecified You Delgado, DO [facility] 10/13/2018 D47.1 Chronic myeloproliferative disease Avinash Romero M.D. 10/13/2018 D50.9 Iron deficiency anemia, unspecified Avinash Romero M.D. 10/13/2018 R63.0 Anorexia Avinash Romero M.D. 10/13/2018 R63.4 Abnormal weight loss Avinash Romero M.D. 10/13/2018 R10.9 Unspecified abdominal pain Avinash Romero M.D. 10/13/2018 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 graft Avinash Romero M.D. Plan of Treatment Future Appointment(s):07/12/2019 3:30 pm - Marisela Driver M.D. at [facility]04/13/2019 3:00 pm - Avinash Romero M.D. at [facility] AT Otoiugwm82/19/2019 3:30 pm - Sharon Peter MD at [facility]11/16/2019 4:10 pm - Kris Merrill MD at [facility] Dermatology AT [place]ju09/17/2019 3:45 pm - Jaziel Hurst M.D. at [place] [facility]04/12/2019 - Marisela Driver M.D.M25.562 Pain in left kneeNew Xrays:Knees Bilateral, Ordered: 04/12/19Follow up:Follow up : 3 hbvcnsO44.561 Pain in right kneeNew Xrays:Knees Bilateral, Ordered: M25.462 Effusion, left kneeM25.461 Effusion, right kneeM17.0 Bilateral primary osteoarthritis of kneeM25.511 Pain in right shoulder Functional Status Description No Information Available Mental Status Description No Information Available Referrals Refer to Reason for Referral Status Appt Date Cardiac-[facility] Sent [address] [place] [address] [phone]
[2019-04-15 14:12] VITALS: BP 179/84
--- NOTE | 2019-04-15 14:50 | UC ---
Skin Complaint HPI - HPI Summary HPI Summary: here for assessment of rash which developed this morning; she assumed that she had a bug bite, but rash has spread with more intense itiching over the past several hours. Takes levocetirazine daily for tx of allergies, and did have a dose today. She has not taken any new meds and cannot think of any new exposure or food. No oral symptoms and no change in breathing. - History of Current Complaint Chief Complaint: UCRash Time Seen by Provider: 04/15/19 14:40 Stated Complaint: SKIN COMPLAINT Hx Obtained From: Patient Onset/Duration: Sudden Onset, Lasting Hours Onset Severity: Mild Current Severity: Moderate Pain Intensity: 10 Location: Diffuse - back, neck and upper thighs. Character: Pruritus, Hives, Redness Alleviating Factor(s): Nothing - no additional meds taken, but has had both xyzal and singulair today. Associated Signs & Symptoms: Positive: Rash - Allergy/Home Medications Allergies/Adverse Reactions: Allergies Allergy/AdvReac Type Severity Reaction Status Date / Time atorvastatin [From Lipitor] Allergy See Comment Verified 04/15/19 14:12 imipramine Allergy Unknown Verified 04/15/19 14:12 Reaction Details Iodinated Contrast Media Allergy Nausea Verified 04/15/19 14:12 [Iodinated Contrast- Oral and IV Dye] misoprostol [From Cytotec] Allergy Itching Verified 04/15/19 14:12 naproxen Allergy Itching Verified 04/15/19 14:12 nitrofurantoin Allergy Unknown Verified 04/15/19 14:12 Reaction Details theophylline [From Uniphyl] Allergy Unknown Verified 04/15/19 14:12 Reaction Details tiagabine [From Gabitril] Allergy Rash Verified 04/15/19 14:12 tizanidine Allergy Unknown Verified 04/15/19 14:12 Reaction Details fentanyl AdvReac Dizziness Verified 04/15/19 14:12 Mfnxigd-Usq-Opo Reductase AdvReac Vomiting Verified 04/15/19 14:12 Inhibitor PMH/Surg Hx/FS Hx/Imm Hx - Additional Past Medical History Additional PMH: degenerative arthritis multiple joints chronic renal disease Previously Healthy: No Endocrine History: Hypothyroidism Cardiovascular History: Cardiac Disease, Hypertension Respiratory History: Asthma - Surgical History Surgical History: Yes Surgery Procedure, Year, and Place: 2008 FUSION LOW BACK. TSP -LSP [place] RODS/SCREWS 2004-- 2010 -TOTAL OF 5 SURGERIES LAST ONE 2011 Xs 2. 2006BILATERAL HIP REPLACEMENT. 06/2003 LEFT HEEL TARSAL TUNNEL -. 12/2004 WART -REMOVED FROM EYELID. 2002 CARPAL TUNNEL - [place]. 2002 Lt KNEE -2 & 2005 09/2002 & 01/2003 Rt KNEE - 3 TIMES - ARTHROSCOPIC. 2007 RIGHT BREAST LUMPECTOMY. 1999 CHOLECYSTECTOMY. TONSILECTOMY- as child. UMBILICAL HERNIA REPAIR. 2008 APPENDECTOMY. 06/2005 [place]ORIAN BREAST REDUCTION. Lt THUMB - GANGLION CYST. T2007 LEFT TOTAL HIP. Rt ARM - "LUMP" REMOVED-. 2005 RT HIP TOTAL REPLACEMENT. 01/2018 CARDIAC STENT. 07/07 heart cath alma - Family History Known Family History: Positive: Cardiac Disease - Father used to use NTG. 3 brothers have had CABG. 4th had CVA and [place]., Diabetes - Social History Alcohol Use: Rare Alcohol Amount: reports only a couple of drinks 4 times per year Substance Use Type: None Smoking Status (MU): Never Smoked Tobacco Have You Smoked in the Last Year: No - Immunization History Most Recent Influenza Vaccination: April 2016 Most Recent Tetanus Shot: current Most Recent Pneumonia Vaccination: in the past Review of Systems All Other Systems Reviewed And Are Negative: Yes Constitutional: Positive: Fatigue Respiratory: Negative: Shortness Of Breath, Cough Cardiovascular: Negative: Palpitations, Chest Pain Gastrointestinal: Negative: Abdominal Pain, Nausea Genitourinary: Positive: Negative Musculoskeletal: Positive: Arthralgia - persistent shoulder pain; has seen Dr. Driver regarding knees. Is Patient Immunocompromised?: No Physical Exam Triage Information Reviewed: Yes Appearance: No Pain Distress, Ill-Appearing - looks chronically unwell, Obese Vital Signs: Initial Vital Signs Temp 97.3 F 04/15/19 14:05 Pulse 64 04/15/19 14:05 Resp 20 04/15/19 14:05 BP 179/84 04/15/19 14:05 Pulse Ox 98 04/15/19 14:05 Eyes: Positive: Conjunctiva Clear ENT: Positive: Pharynx normal Respiratory: Positive: Lungs clear, Normal breath sounds Cardiovascular: Positive: No Murmur, Other: - regularly irregular Skin Exam: Other - urticaria across back, neck, sparse on anterior abdomen Re-Evaluation - Re-Evaluation First Eval Re-Evaluation Time: 15:45 Change: Unchanged Comment: hives and itch persist, and additional med requested. Second Eval Re-Evaluation Time: 16:15 Change: Improved - marginal decrease in urticaria, still pruritic. Course/Dx - Course Course Of Treatment: Some response to solumedrol, benadryl and prednisone. Will discharge with rx for hydroxyzine and 2.5% HC lotion. - Differential Diagnoses - Skin Complaint Differential Diagnoses: Drug Rash, Urticaria, Viral Exanthem - Diagnoses Provider Diagnosis: Urticaria Discharge ED - Sign-Out/Discharge Documenting (check all that apply): Patient Departure All imaging exams completed and their final reports reviewed: No Studies - Discharge Plan Condition: Stable Disposition: HOME Prescriptions: Hydrocortisone 2.5% CREAM(NF) 1 applic TOPICAL BID PRN #60 gm PRN Reason: Rash predniSONE [Prednisone 20 MG TAB] 20 mg PO DAILY #5 tablet Patient Education Materials: Urticaria (ED) Referrals: Manas Villeda MD [Primary Care Provider] - Additional Instructions: Once home, you might soak in an oatmeal bath to help relieve itch. Continue benadryl 25 mg every 4 hours as needed to suppress hives, and use oral prednisone once daily for 5 days. Follow up if hives persist. - Billing Disposition and Condition Condition: STABLE Disposition: Home
[2019-04-15] MEDS ORDERED: diPHENhydraMINE IV* 50 MG/ML 1 ml VIAL (BENADRYL) IM ONE (14:52)
[2019-04-15] MEDS ORDERED: predniSONE TAB* 20 MG PO ONE (14:53)
[2019-04-15] MEDS ORDERED: methylPREDNISolone SOD 40 MG* 1 ML VIAL IM ONE (15:44)
== END 2019-04-15 16:36 | disposition home or self-care (01) ==
LOC: UCCORT 13:19
DX: L50.9 Urticaria, unspecified (principal); I10 Essential (primary) hypertension; Z88.8 Allergy status to other drugs, medicaments and biological substances; Z88.5 Allergy status to narcotic agent; Z88.1 Allergy status to other antibiotic agents; Z91.041 Radiographic dye allergy status
CPT/HCPCS: 96372; 99213; G0463; J1200; J2920; J7512

== ENCOUNTER 2019-08-06 16:36 | Emergency (ER) | payer MEDICARE, BC ==
--- NOTE | 2019-08-06 17:36 | ED ---
Lower Extremity - HPI Summary HPI Summary: Patient complains of pain, warmth and swelling and redness to right calf starting this morning. Pain and swelling located over site of vein grafting August 2018. Patient sent by primary care to ED for further evaluation. Denies history of blood clots. Currently taking Plavix. Denies trauma, fever, cough, sore throat, CP, SOB, N/3/D, abdominal pain, change in urine, change in BM. Medical history is HTN, A. fib, CAD, see daily, CHF, lymphedema, HLD. - History of Current Complaint Chief Complaint: EDSoftTissueLowExtr Stated Complaint: RT LEG SWOLLEN PER PT Time Seen by Provider: 08/06/19 17:12 Hx Obtained From: Patient Mechanism Of Injury: Unknown Onset/Duration: Hours Severity Initially: Mild Severity Currently: Severe Pain Intensity: 8 Pain Scale Used: 0-10 Numeric Timing: Constant Location: Is Discrete @ Character Of Pain: Dull, Aching, Throbbing Associated Signs And Symptoms: Positive: Swelling, Redness Aggravating Factor(s): Standing, Weight Bearing - Allergies/Home Medications Allergies/Adverse Reactions: Allergies Allergy/AdvReac Type Severity Reaction Status Date / Time atorvastatin [From Lipitor] Allergy See Comment Verified 08/06/19 16:48 imipramine Allergy Unknown Verified 08/06/19 16:48 Reaction Details Iodinated Contrast Media Allergy Nausea Verified 08/06/19 16:48 [Iodinated Contrast- Oral and IV Dye] misoprostol [From Cytotec] Allergy Itching Verified 08/06/19 16:48 naproxen Allergy Itching Verified 08/06/19 16:48 nitrofurantoin Allergy Unknown Verified 08/06/19 16:48 Reaction Details theophylline [From Uniphyl] Allergy Unknown Verified 08/06/19 16:48 Reaction Details tiagabine [From Gabitril] Allergy Rash Verified 08/06/19 16:48 tizanidine Allergy Unknown Verified 08/06/19 16:48 Reaction Details fentanyl AdvReac Dizziness Verified 08/06/19 16:48 [id number] Reductase AdvReac Vomiting Verified 08/06/19 16:48 Inhibitor PMH/Surg Hx/FS Hx/Imm Hx Endocrine/Hematology History: Reports: Hx Thyroid Disease, Hx Anemia - ON DAILY IRON, 01/2018 WHILE HOSPITALIZED RECEIVE 7 UNITS BLOOD Denies: Hx Diabetes Cardiovascular History: Reports: Hx Angina, Hx Congestive Heart Failure, Hx Coronary Artery Disease, Hx Hypercholesterolemia, Hx Hypertension Denies: Hx Myocardial Infarction, Hx Pacemaker/ICD, Hx Valvular Heart Disease Comment Only: 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, 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 Respiratory History: Reports: Hx Asthma, Hx Pneumonia, Hx Sleep Apnea - SLIGHT, USES OXYGEN AT NIGHT AND PRN DURING DAY Denies: Hx Chronic Obstructive Pulmonary Disease (COPD) GI History: Reports: Hx Gastroesophageal Reflux Disease - ON DAILY MEDS, Hx Gastrointestinal Bleed, Hx Hiatal Hernia, Hx Ulcer - CURED WITH MEDS 2016 History: Reports: Hx Renal Disease - stage 3 CKD, Other Problems/ Disorders - Tx BY DR ALICIA ALCOCER IN [place] Denies: Hx Dialysis Musculoskeletal History: Reports: Hx Arthritis - STATES ALL OVER STATES NECK TO TOES, Hx Back Problems, Hx Fibromyalgia, Hx Orthopedic Injury, Other Musculoskeletal History - FIBROMYALGIA Sensory History: Reports: Hx Cataracts - BILATERAL, Hx Hearing Aid - R side only , WILL WEAR DAY OF SURGERY & HAVE CASE, Hx Hearing Problem Denies: Hx Contacts or Glasses Opthamlomology History: Reports: Hx Cataracts - BILATERAL Denies: Hx Contacts or Glasses Neurological History: Reports: Hx Headaches - with chest pain gets severe headaches, Hx Transient Ischemic Attacks (TIA) Denies: Hx Dementia, Hx Seizures Psychiatric History: Reports: Other Psychiatric Issues/Disorders - claustrophobia Denies: Hx Panic Disorder - Surgical History Surgery Procedure, Year, and Place: 2008 FUSION LOW BACK. TSP -LSP [place] RODS/SCREWS 2004-- 2010 -TOTAL OF 5 SURGERIES LAST ONE 2010 Xs 2. 2006BILATERAL HIP REPLACEMENT. 06/2003 LEFT HEEL TARSAL TUNNEL -. 12/2004 WART -REMOVED FROM EYELID. 2002 CARPAL TUNNEL - [place]. 2002 Lt KNEE -2 & 09/2002 & 01/2003 Rt KNEE - 3 TIMES - ARTHROSCOPIC. 2007 RIGHT BREAST LUMPECTOMY. 1999 CHOLECYSTECTOMY. TONSILECTOMY- as child. UMBILICAL HERNIA REPAIR. 2008 APPENDECTOMY. 06/2005 [place] BREAST REDUCTION. Lt THUMB - GANGLION CYST. T2007 LEFT TOTAL HIP. Rt ARM - "LUMP" REMOVED-. 2005 RT HIP TOTAL REPLACEMENT. 01/2018 CARDIAC STENT. 07/07 heart cath [place] Hx Anesthesia Reactions: Yes - ALWAYS RECEIVES ANTI NAUSEA MEDS PRE-OP - Immunization History Date of Influenza Vaccine: 05/15/18 Infectious Disease History: No Infectious Disease History: Denies: Hx Clostridium Difficile, Hx Hepatitis, Hx of Known/Suspected MRSA, Traveled Outside the [place] in Last 30 Days - Family History Known Family History: Positive: Cardiac Disease - Father used to use NTG. 3 brothers have had CABG. 4th had CVA and GA., Diabetes - Social History Alcohol Use: Rare Alcohol Amount: reports only a couple of drinks 4 times per year Hx Substance Use: No Substance Use Type: Reports: None Hx Tobacco Use: No Smoking Status (MU): Never Smoked Tobacco Have You Smoked in the Last Year: No Review of Systems Constitutional: Negative Eyes: Negative ENT: Negative Cardiovascular: Negative Respiratory: Negative Gastrointestinal: Negative Genitourinary: Negative Musculoskeletal: Negative Skin: Other Neurological: Negative Psychological: Normal All Other Systems Reviewed And Are Negative: Yes Physical Exam - Summary Physical Exam Summary: Warmth, redness and swelling and tenderness to palpation admitted to right calf just distal to right. Full range of motion of right knee. PMS intact distally. No evidence of fluctuance, however skin is indurated. Triage Information Reviewed: Yes Vital Signs On Initial Exam: Initial Vitals Temp Pulse Resp BP Pulse Ox 98.7 F 76 18 173/99 96 08/06/19 16:44 08/06/19 16:44 08/06/19 16:44 08/06/19 16:44 08/06/19 16:44 Vital Signs Reviewed: Yes Appearance: Positive: Well-Appearing Skin: Positive: Warm Head/Face: Positive: Normal Head/Face Inspection Eyes: Positive: Normal Neck: Positive: Supple Respiratory/Lung Sounds: Positive: Clear to Auscultation Cardiovascular: Positive: Normal Abdomen Description: Positive: Nontender Musculoskeletal: Positive: Normal Neurological: Positive: Normal Psychiatric: Positive: Normal AVPU Assessment: Alert - Ramesh Coma Scale Best Eye Response: 4 - Spontaneous Best Motor Response: 6 - Obeys Commands Best Verbal Response: 5 - Oriented Coma Scale Total: 15 Procedures - Sedation Patient Received Moderate/Deep Sedation with Procedure: No Diagnostics - Vital Signs Vital Signs Temp Pulse Resp BP Pulse Ox 08/06/19 16:44 98.7 F 76 18 173/99 96 - Laboratory Result Diagrams: 08/06/19 17:45 08/06/19 17:45 Lab Statement: Any lab studies that have been ordered have been reviewed, and results considered in the medical decision making process. Lower Extremity Course/Dx - Course Course Of Treatment: Patient complains of pain, warmth and swelling and redness to right calf starting this morning. Pain and swelling located over site of vein grafting August 2018. Patient sent by primary care to ED for further evaluation. Denies history of blood clots. Currently taking Plavix. Denies trauma, fever, cough, sore throat, CP, SOB, N/3/D, abdominal pain, change in urine, change in BM. Medical history is HTN, A. fib, CAD, see daily, CHF, lymphedema, HLD. Signs within normal limits. Labs unremarkable. Ultrasound negative for DVT, positive for popliteal cyst. Patient also evaluated by Dr. Jay, who recommended antibiotics and further evaluation by orthopedics due to possible knee joint involvement. - Diagnoses Provider Diagnoses: Popliteal synovial cyst Discharge ED - Sign-Out/Discharge Documenting (check all that apply): Patient Departure - Discharge Plan Condition: Stable Disposition: HOME Patient Education Materials: Bakers Cyst (ED) Referrals: Manas Villeda MD [Primary Care Provider] - Bryson Umana MD [Medical Doctor] - Additional Instructions: Take Bactrim twice a day as directed. Follow-up with orthopedics Dr Umana for further evaluation. Return to the ED for any new or worsening symptoms. - Billing Disposition and Condition Condition: STABLE Disposition: Home - Attestation Statements Provider Attestation: Patient was presented to me by Brett FERGUSON. Patient is a 78-year-old female, on Plavix, here with swelling and erythema to the right leg. Patient has an area of swelling, erythema to the right leg just medial to the knee. Patient's forage motion in her knee and is able to walk without difficulty. Patient will soundly [place] remitted today which is negative for DVT. Patient had a repeat ultrasound of the right lower extremity today which showed no evidence of DVT. Patient has a [place] cyst on ultrasound. Patient will be treated with oral antibiotics for the overlying cellulitis and referred orthopedic surgery for further management.
--- OUTSIDE RECORDS SUMMARY | 2019-08-06 17:42 | XMS REPORT ---
:1940 Author Organization [facility]ly [facility] Address [address] [place] [address] Care Team Providers Name Role Phone Michael Schwarz Unavailable Unavailable PROBLEMS Type Condition ICD9-CM VQN16-NP Onset Condition SNOMED Code Code Code Dates Status Problem Family history of Z80.49 Active 089150351 malignant neoplasm of other genital organs Problem Body mass index Z68.42 Active 290505416 (BMI) 45.0-49.9, adult Problem Cystocele, N81.10 Active 536739260 unspecified Problem Unspecified R32 Active 911123134 urinary incontinence Problem Postmenopausal N95.0 Active 46570470 bleeding Problem 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 [id number] microscopic hematuria Problem Urinary tract N39.0 Active 54943378 infection, site not specified Problem Other specified N93.8 Active 919498417 abnormal uterine and vaginal bleeding Problem Dysuria R30.0 Active 99242713 Problem Cystocele, lateral N81.12 Active [id number] ALLERGIES No Information ENCOUNTERS Encounter Location Date Diagnosis [facility] 103 Feb, [place], [place] [id number] [facility] 103 Feb, Postmenopausal bleeding OBGYN [facility], N95.0 ; [place] history of [place] [id number] malignant neoplasm of other genital organs Z80.49 ; Cystocele, lateral N81.12 ; Unspecified urinary incontinence R32 and Benign essential microscopic hematuria R31.1 [facility] 103 Feb, Family history of OBG[facility], malignant neoplasm of [place] [id number] other genital organs Z80.49 [facility] 103 24 Jul, 2018 Encounter for screening [facility], mammogram for malignant [place] [id number] neoplasm of breast Z12.31 [facility] 103 May, Postmenopausal bleeding [facility], N95.0 ; Family history of [place] [id number] malignant neoplasm of other genital organs Z80.49 ; Cystocele, lateral N81.12 ; Dysuria R30.0 ; Unspecified urinary incontinence R32 and Benign essential microscopic hematuria R31.1 [facility] 103 May, [place] [id number] [facility] 103 May, [place] [id number] [facility] 103 Feb, [place] [id number] [facility] 103 Feb, [place], [place] [id number] [facility] 103 Feb, [place] [id number] [facility] 103 Dec, Postmenopausal bleeding [facility], N95.0 ; Family history of [place] [id number] malignant neoplasm of other genital organs Z80.49 ; Cystocele, lateral N81.12 ; Dysuria R30.0 ; Unspecified urinary incontinence R32 and Benign essential microscopic hematuria R31.1 [facility] 103 Dec, [place] [id number] [facility] 103 Dec, [place] [id number] [facility] 103 November, [place] [id number] [facility] 103 Oct, [place] [id number] [facility] 103 Oct, [place] [id number] [facility] 103 Oct, [place] [id number] [facility] 103 Oct, [place] [id number] [facility] 103 Oct, Dysuria R30.0 ; OBGYN [facility], Unspecified urinary [place] [id number] incontinence R32 and Cystocele, lateral N81.12 [facility] 103 Sep, [place] [id number] [facility] 103 Mar, [place] [id number] [facility] 103 Mar, [place] [id number] [facility] 103 Mar, [place] [id number] [facility] 103 Mar, [place] [id number] [facility] 103 Mar, [place] [id number] [facility] 103 Mar, [place] [id number] [facility] 103 Mar, Postmenopausal bleeding OBG[facility], N95.0 ; Family history of [place] [id number] malignant neoplasm of other genital organs Z80.49 and Benign essential microscopic hematuria R31.1 [facility] 103 Feb, [place] [id number] [facility] 103 Feb, Urinary tract infection, OBGYN [facility], site not specified N39.0 [place] [id number] [facility] 103 Feb, Urinary tract infection, [facility], site not specified N39.0 [place] [id number] [facility] 103 Feb, Urinary tract infection, [facility], site not specified N39.0 [place] [id number] [facility] Feb, [facility] [place] [id number] [facility] 103 Feb, Urinary tract infection, [facility], site not specified N39.0 [place] [id number] [facility] 103 Feb, [facility] [place] [id number] [facility] 103 Feb, Postmenopausal bleeding [facility], N95.0 ; Family history of [place] [id number] malignant neoplasm of other genital organs Z80.49 ; Body mass index (BMI) 45.0-49.9, adult Z68.42 ; Cystocele, unspecified N81.10 and Dysuria R30.0 [facility] 103 Feb, Postmenopausal bleeding [facility], N95.0 and Family history [place] [id number] of malignant neoplasm of other genital organs Z80.49 [facility] 103 Jan, [place] [id number] [facility] 103 Jan, Urinary tract infection, [facility], site not specified N39.0 [place] [id number] [facility] 103 Jan, Dysuria R30.0 [place] [id number] [facility] 103 Jun, Encounter for screening [facility], mammogram for malignant [place] [id number] neoplasm of breast Z12.31 [facility] 103 Feb, Flushing 782.62 [place] [id number] [facility] 103 Oct, [place] [id number] [facility] 103 Oct, [place] [id number] [facility] 103 Sep, Urinary tract infection [facility], NOS 599.0 [place] [id number] [facility] 103 Aug, [place] [id number] [facility] 103 Aug, Urinary tract infection [facility], NOS 599.0 [place] [id number] [facility] 103 Aug, Flushing 782.62 [place] [id number] [facility] 103 Aug, [place] [id number] [facility] 103 May, SCREEN MAMMOGRAM NEC [facility], V76.12 ; Flushing 782.62 ; [place] [id number] Postmenopausal bleeding 627.1 and Blood in stool 578.1 [facility] 103 Apr, Flushing 782.62 [place] [id number] [facility] 103 Jan, SCREEN MAMMOGRAM NEC [facility]BG[facility], V76.12 [place] [id number] [facility] 103 Jan, Flushing 782.62 and OBGYN [facility], UTERINE FIBROIDS-UNSPEC [place] [id number] 218.9 [facility] 103 Dec, [place] [id number] [facility] 103 Dec, [place] [id number] [facility] 103 Dec, Flushing 782.62 [place] [id number] [facility] 103 November, Urinary tract infection [facility], NOS 599.0 [place] [id number] [facility] 103 Oct, Incontinence 788.30 ; OBG[facility], Postmenopausal bleeding [place] [id number] 627.1 and Body Mass Index 45.0-49.9, adult V85.42 [facility] 103 Oct, Postmenopausal bleeding OBGYN [facility], 627.1 and FM HX GENITAL [place] [id number] MALIG NOS V16.40 [facility] 103 Sep, [place] [id number] [facility] 103 Sep, Incontinence 788.30 ; [facility]BG[facility], Postmenopausal bleeding [place] [id number] 627.1 and Body Mass Index 45.0-49.9, adult V85.42 [facility] 103 Sep, [place] [id number] [facility] 103 Aug, [place] [id number] [facility] 103 Aug, Incontinence 788.30 ; [facility]BG[facility], Postmenopausal bleeding [place] [id number] 627.1 and Body Mass Index 45.0-49.9, adult V85.42 [facility] 103 May, [place]BG[place] [id number] [facility] 103 May, Postmenopausal bleeding OBG[facility], 627.1 and Body Mass Index [place] [id number] 45.0-49.9, adult V85.42 [facility] May, [place] [id number] [facility] 103 May, Postmenopausal bleeding OBG[facility], 627.1 and Body Mass Index [place] [id number] 45.0-49.9, adult V85.42 [facility] 103 May, [place] [id number] [facility] 103 Apr, Postmenopausal bleeding [facility], 627.1 [place] [id number] [facility] Apr, Postmenopausal bleeding [facility], 627.1 and FM HX GENITAL [place] [id number] MALIG NOS V16.40 [facility] 103 Apr, GYNECOLOGIC EXAMINATION OBGYN [facility], V72.31 ; PAP SMEAR W/O [employer]URK[employer] ATTENDANT [place] [id number] EXAM V76.2 ; SCREEN MALIG NEOP-COLON V76.51 ; Postmenopausal bleeding 627.1 ; SCREEN MAMMOGRAM NEC V76.12 and Blood in stool 578.1 [facility] 103 Mar, [place] [id number] [facility] 103 Mar, [place] [id number] [facility] 103 Jul, Osteopenia 733.90 [place] [id number] [facility] 103 Jul, Osteopenia 733.90 [place] [id number] [facility] 103 Jul, Postmenopausal bleeding [facility]BG[facility], 627.1 [place] [id number] [facility] 103 Jul, Postmenopausal bleeding [facility], 627.1 [place] [id number] [facility] 103 May, [place] [id number] [facility]Note 2[facility] 103 Feb, GYNECOLOGIC EXAMINATION [facility], V72.31 ; PAP SMEAR W/O [employer]URK[employer] ATTENDANT [place] [id number] EXAM V76.2 ; SCREEN MALIG NEOP-COLON V76.51 and Postmenopausal bleeding 627.1 [facility] 103 May, [place] [id number] [facility]Note 2[facility] 103 May, [place] [id number] [facility] 103 Apr, [place] [id number] [facility] 103 Mar, Flushing 782.62 ; OBGYN [facility], Postmenopausal bleeding [place] [id number] 627.1 ; 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 ; FM HX GENITAL MALIG NOS V16.40 and OBESITY NOS 278.00 [facility] 103 Jan, Postmenopausal bleeding OBN [facility], 627.1 ; Atrophic Vaginitis [place] [id number] 627.3 ; FM HX GENITAL MALIG NOS V16.40 and OBESITY NOS 278.00 [facility] 103 Jan, Postmenopausal bleeding O[facility], 627.1 ; FM HX GENITAL [place] [id number] MALIG NOS V16.40 and OBESITY NOS 278.00 [facility] 103 Dec, [place] [id number] [facility] 103 Dec, Postmenopausal bleeding OBN [address] [place], 627.1 ; FM HX GENITAL [place] [id number] MALIG NOS V16.40 and OBESITY NOS 278.00 [facility] 103 November, OBG[facility], [place] [id number] [facility] 103 Jun, [place] [id number] [facility] 103 Jun, Other abnormal clinical [facility]BG[facility], findings 796.4 ; OBESITY [place] [id number] NOS 278.00 ; FM HX GENITAL MALIG NOS V16.40 and Postmenopausal bleeding 627.1 [facility] 103 May, Other abnormal clinical OBG[facility], findings 796.4 ; OBESITY [place] [id number] NOS 278.00 ; FM HX GENITAL MALIG NOS V16.40 and Postmenopausal bleeding 627.1 [facility] 103 16 May, 2010 BMI 40 AND OVER, ADULT OBGYN [facility], V85.4 and UTERINE [place] [id number] FIBROIDS-UNSPEC 218.9 [facility] 103 May, GYNECOLOGIC EXAMINATION [facility]BG[facility], V72.31 ; SCREEN MALIG [place] [id number] NEOP-COLON V76.51 and Other abnormal clinical findings 796.4 [facility] 103 Apr, ROUTINE TURKISH LINE ATTENDANT EXAMINATION [facility]BG[facility], V72.31 [place] [id number] [facility] 103 Sep, ROUTINE TURKISH LINE ATTENDANT EXAMINATION OBGYN [facility], V72.31 [place] [id number] [facility] 103 Feb, Flushing 782.62 [place] [id number] [facility] 103 Jan, Flushing 782.62 [place] [id number] [facility] 103 08 Jan, 2008 Flushing 782.62 and Other OBGYN [facility], abnormal clinical findings [place] [id number] 796.4 [facility] 103 Jan, [place] [id number] [facility] 103 Dec, Flushing 782.62 ; MALAISE [facility], AND FATIGUE NEC 780.79 and [place] [id number] Headache 784.0 [facility] 103 Jun, Incontinence 788.30 ; OBG[facility], Cystocele, midline 618.01 [place] [id number] and Urge incontinence 788.31 [facility] 103 Dec, [place] [id number] [facility] 103 Dec, [place] [id number] [facility] 103 Dec, ROUTINE [facility] [facility] V72.31 [place] [id number] [facility] 103 November, [place] [id number] [facility] 103 November, [place] [id number] [facility] [place]Note 2[facility] 103 May, [place] [id number] [facility] 103 Oct, [place] [id number] [facility] 103 Sep, [place] [id number] [facility] 103 Sep, Cystocele, midline 618.01 [facility]BG[facility], ; First degree uterine [place] [id number] prolapse 618.1 ; Urge incontinence 788.31 and Flushing 782.62 [facility] 103 13 Aug, 2005 Cystocele, midline 618.01 [facility]BGYN [facility], ; First degree uterine [place] [id number] prolapse 618.1 and Urge incontinence 788.31 [facility] 103 Feb, Cystocele, midline 618.01 [place] [id number] [facility] 103 Jan, Well Adult exam V 70.0 ; OBGYN [facility], TURKISH LINE ATTENDANT Exam pt w/ [place] [id number] uterus/cervix V72.3 ; Cystocele, midline 618.01 and First degree uterine prolapse 618.1 IMMUNIZATIONS No Known Immunizations SOCIAL HISTORY Never Assessed REASON FOR REFERRAL FUNCTIONAL STATUS PLAN OF CARE VITAL SIGNS MEDICATIONS Unknown Medications PROCEDURES No Known procedures RESULTS No Results REASON FOR VISIT February 2020 Insurance Providers Formerly [facility] Member Patient Patient Patient Patient Patient Subscriber Subscriber Subscriber Group Insurance Plan Plan Plan Plan ID Relationship Address Phone Name Date of ID Name Date of No Type Insurance Insurance Insurance Coverage to Subscriber Address Phone Name Dates AARP [phone] AARP [place] [id number] [facility] [address] Medicare [phone] Medicare self [place] [id number] Ver[address] [facility] [address] AARP [phone] AARP [place] [id number] Ver[address] [facility] [address] Blue [phone] Blue self [place] [id number] Cross/Blue [id number] 16 Cross/Blue Veronica 0 Shield [facility] [address] [address] [phone] Blue [place] [id number] Cross/Blue [id number] Cross/Blue Veronica 0 [address] [facility] [address] MEDICAL (GENERAL) HISTORY Type Description Date Medical [...] fusion 06/20/11 Surgical History bone marrow bx in office 09/04 Surgical History bone marrow bx in hospital Surgical History cardiac stent 07/2018 Surgical History open heart surgery 08/25/18 Hospitalization History see above Hospitalization History childbirth Hospitalization History broken ankle and tibia 07/08/14 Hospitalization History cardiac stent 07/2018 Hospitalization History open heart surgery 08/25/18
--- OUTSIDE RECORDS SUMMARY | 2019-08-06 17:42 | XMS REPORT | Continuity of Care Document ---
:1940 External Reference #:[id number] Author Name Delfina Collazo, RODRIGO Address [address] [place] [address] Care Team Providers Name Role Phone Manas Villeda MD - Family Medicine Care Team Information Translator Interpreter [phone] Luana Schwarz - Obstetrics & Care Team Information Translator Interpreter [phone] [facility] - Care Team Information Translator Interpreter [phone] Gastroenterology Cielo Cook MD - Hematology & Care Team Information Translator Interpreter [facility] - Pain Care Team Information Translator Interpreter [phone] Radames Lee MD - Orthopaedic Care Team Information Translator Interpreter Surgery of the Spine Avinash Romero MD - Hematology Care Team Information Translator Interpreter [phone] Brian Smallwood MD - Ophthalmology Care Team Information Translator Interpreter [facility] Care Team Information Translator Interpreter [phone] [facility] Care Team Information Translator Interpreter [phone] Problems Active Problems Provider Date Hypothyroidism Manas [...] M.D. 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 Social History Type Date Description Comments Sex Unknown Tobacco Use Start: Unknown Patient has never smoked Smoking Status Reviewed: 08/06/19 Patient has never smoked Allergies, Adverse Reactions, Alerts Active Allergies Reaction Severity Comments Date Asa gastric ulcer 2013 Gabitril rash 2013 Naprosyn rash 2013 Cytotec rash 2013 Lipitor leg weakness 2013 Zanaflex hallucinations 2013 Contrast Dye visual chnages 2013 Impramine dianrrhea itch headaches 2013 Oxycodone severe constipation Severe 12/08/2018 Medications Active Medications SIG Qnty Indications Ordering Provider Date Medical Compression use as 1Pair I73.9 Manas Villeda, 06/10/2019 Socks/30-40MMHG/Open directed. M.D. Toe/Long Misc R60.0 Diclofenac Sodium apply 2 gm to 100gm Lincoln Swartz, 04/05/2019 1% Gel affected joint four M.D. times a day Metoprolol Succinate ER 1 by mouth twice a 60tabs Veronica 12/21/2018 25mg day Amaris, TUBE SORTER Tablets ER 24HR Hydrocodone-Acetaminophe 2 tablets by mouth 40tabs Renetta C. 11/13/2018 n every 6 hours as RODRIGO [place] 10-325mg Tablets needed pain Plavix 1 by mouth every 90tabs Manas Villeda, 03/16/2018 75mg Tablets day M.D. Levothyroxine Sodium Take 1 Tablet Every 90tabs Veronica 08/29/[address] [facility], [facility] Tablets Levocetirizine Take 1 Tablet Every 90tabs Veronica 07/12/[address] [facility], [facility] 5mg Tablets Omeprazole 1 by mouth twice a 180caps K21.9 Veronica 05/02/[address] [facility], [facility] Ezetimibe 1 by mouth every Unknown 10mg Tablets day Melatonin 1 cap by mouth Unknown 10mg Capsules every day at bedtime Amlodipine Besylate take 2 tablets 180tabs [facility] 5mg every day M.D. Tablets Pramipexole Take 2 Tablets 180tabs Veronica Dihydrochloride Every Night AT [facility] 1mg Tablets Bedtime Breo Ellipta 1 inhalation once 60units Veronica 100-25mcg/Inh per day, rinse [facility] Aerosol Amiodarone HCL 1 by mouth every 90tabs Veronica 100mg Tablets day [facility], [facility] Torsemide take 2 pill a day Unknown 10mg Tablets for fluid Vitamin B12 100mcg qd Unknown Primidone Take 3 Tablets 270tabs Manas A. Jamielow, 50mg Tablets Every Night AT M.D. Bedtime Shark Cartilage 2 po tid Unknown 500mg Capsules Vitamin D 2 by mouth every Unknown 1000Unit Tablets day Fluticasone Propionate Use 2 Sprays In 48units Veronica Each Nostril AT [facility] 50mcg/Act Suspension Bedtime Calcium/Mag 1 po qd 30units Unknown Chewtabs Senna S 1 by mouth twice a 180tabs Veronica 8.6-50mg Tablets day [facility], [facility] Multivitamin With Folic 1 po qd supplement 100tabs Unknown Acid Tablets Colace 2 by mouth twice a 540caps Veronica 100mg Capsules day for bowels Amaris, TUBE SORTER Albuterol Sulfate use four times a 180ml Veronica (2.5mg/3ML) day as needed Amaris, TUBE SORTER 0.083% Nebulizer Ventolin HFA 2 puffs every 6 3units Veronica 108(90Base) hours as needed Amaris, TUBE SORTER mcg/Act Aerosol History Medications Keflex 1 by mouth 14caps Veronica 04/20/2019 - 500mg Capsules twice a day x 7 Amaris, TUBE SORTER 05/04/2019 days Keflex 1 by mouth 14caps Veronica 04/20/2019 - 500mg Capsules twice a day x 7 Amaris, TUBE SORTER 05/04/2019 days Nitrofurantoin Monohyd 1 by mouth two 14caps Lincoln KenyattaKandi Swartz, 2018 - Macro times a day M.D. 05/05/2019 100mg Capsules Pyridium 1 by mouth 20tabs Lincoln Swartz, 04/02/2019 - 100mg Tablets three times a M.D. 04/03/2019 day as needed Gabapentin take 1 capsule 90caps G89.4 Veronica 03/25/2019 - 300mg Capsules by mouth three Amaris, TUBE SORTER 07/30/2019 times a day as needed for pain Immunizations CPT Code Status Date Vaccine Lot # [id number] Given 04/05/2019 High-Dose, Influenza Virus Vacccine-fluzone 65 and [id number] older Given 05/15/2018 High-Dose, Influenza Virus Vacccine-fluzone 65 and [id number] older Given 04/10/2017 High-Dose, Influenza Virus Vacccine-fluzone 65 and [id number] older 21289 Given 12/24/2016 Tdap Tetanus, W Pertussis [id number] 20289 Given 12/24/2016 Pneumococcal Conjugate Vacc-13 [id number] 66687 Given 04/10/2016 Influenza Vac, Quadrivalent, Slit Virus, Im [id number] Given 05/08/2015 Pneumococcal Immunization [id number] 98255 Given 05/08/2015 Influenza Vac, Quadrivalent, Slit Virus, Im [id number] Vital Signs Date Vital Result Comment 08/06/2019 3:28pm BP Systolic 140 mmHg BP Diastolic 60 mmHg Heart Rate 64 /min Body Temperature 98.4 F Height 61 inches 5'1" Weight 230.00 lb BMI (Body Mass Index) 43.5 kg/m2 07/30/2019 2:01pm BP Systolic 122 mmHg BP Diastolic 84 mmHg Heart Rate 68 /min Body Temperature 98.2 F Respiratory Rate 16 /min Height 61 inches 5'1" Weight 237.00 lb BMI (Body Mass Index) 44.8 kg/m2 Results Description No Information Available Procedures Date Code Description Status 01/20/2017 28443112 Mammogram Completed 07/27/2015 [id number] Mammogram Completed 05/20/2014 [id number] Mammogram Completed 09/18/2013 81192360 Colonoscopy Completed Medical Devices Description No Information Available Encounters Type Date Location Provider Dx Diagnosis Office Visit 05/05/2019 [facility] Veronica Glez, R60.0 Localized edema 3:30p TUBE SORTER M25.511 Pain in right shoulder M17.0 Bilateral primary osteoarthritis of knee 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[place] coronary artery w/o ang pctrs G89.4 Chronic pain syndrome K59.03 Drug induced constipation F34.1 Dysthymic disorder Office Visit 04/05/2019 3:00p [facility] Lincoln Olivas Encounter for Jeane Swartz immunization R60.0 Localized edema M25.511 Pain in right shoulder M17.0 Bilateral primary osteoarthritis of knee 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[place] coronary artery w/o ang pctrs Office Visit 03/25/2019 1:45p [facility] Veronica M25.561 Pain in Amaris, TUBE SORTER right knee M25.562 Pain in left knee G89.4 Chronic pain syndrome M25.511 Pain in right shoulder K59.03 Drug induced constipation M79.671 Pain in right foot M79.672 Pain in left foot K21.9 Gastro-esophageal reflux disease without esophagitis Assessments Date Code Description Provider 08/06/2019 M79.605 Pain in left leg Delfina Collazo, RODRIGO 08/06/2019 M79.604 Pain in right leg Delfina Collazo, RODRIGO 08/06/2019 R60.0 Localized edema Delfina Collazo NP 07/30/2019 M79.605 Pain in left leg Veronica Glez [facility] 07/30/2019 G89.4 [facility] 07/30/2019 M17.0 Bilateral primary osteoarthritis of knee [facility] , [facility] 07/30/2019 K59.03 Drug induced constipation [facility], [facility] 07/30/2019 F34.1 Dysthymic disorder [facility], [facility] 05/05/2019 R60.0 Localized edema [facility], [facility] 05/05/2019 M25.511 [facility] 05/05/2019 M17.0 Bilateral primary osteoarthritis of knee [facility] , [facility] 05/05/2019 I25.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 [place] [facility] , [facility] coronary artery without angina pectoris 05/05/2019 G89.4 Chronic pain syndrome [facility], [facility] 05/05/2019 K59.03 Drug induced constipation [facility], [facility] 05/05/2019 F34.1 Dysthymic disorder [facility], [facility] 04/05/2019 Z23 Encounter for immunization Lincoln Swartz M.D. 04/05/2019 R60.0 Localized edema Lincoln Swartz M.D. 04/05/2019 M25.511 Pain in right shoulder Lincoln Swartz M.D. 04/05/2019 M17.0 Bilateral primary osteoarthritis of knee Lincoln Swartz M.D. 04/05/2019 I25.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 [place] Lincoln Swartz M.D. coronary artery without angina pectoris 04/02/2019 N39.0 Urinary tract infection, site not specified Lincoln Swartz M.D. 03/25/2019 M25.561 [facility] 03/25/2019 M25.562 Pain in left knee [facility], [facility] 03/25/2019 G89.4 Chronic pain syndrome [facility], [facility] 03/25/2019 M25.511 [facility] 03/25/2019 K59.03 Drug induced constipation Veronica Glez, [facility] 03/25/2019 M79.671 Pain in right foot Veronica Glez, [facility] 03/25/2019 M79.672 Pain in left foot Veronica Glez, TUBE SORTER 03/25/2019 K21.9 Gastro-esophageal reflux disease without Veronicadaisy Glez , TUBE SORTER esophagitis Plan of Treatment 08/06/2019 - Delfina Collazo, NPM79.605 Pain in left legComments:Negative for DVTM79.604 Pain in right legComments:sent to ED report to RAYMOND Bernal Charge KwyzcM62.0 Localized edemaAllComments:Medication Management Patient Understands medications he 's taking? Yes No Are there Barriers to Adherence? Yes No Has the patient been asked about herbal supplements and therapies, andOTC meds? Yes No Care Plan1. Patient has been queried about patient's goals/preferences and functional/lifestyle goals at relevant visits. If relevant, describe: na2. Treatment goals as explained to the patient: above3. Are there barriers to meeting treatment goals? Yes No If Yes, please describe: comorbid conditions, disease process, polypharmacy4. Self- Management goals as described to the patient: Yes NoAs always, we strongly encourage a healthy diet and making physical activity a part of your every day life. If you have questions about how or where to start, please contact the office. Functional Status Description No Information Available Mental Status Description No Information Available Referrals Refer to Reason for Referral Status Appt Date Nelli Willett MD Consult and treat back pain. Office note, Sent radiology reports, labs and triage faxed. [address] [address] [phone] [place] [facility] bilateral lower extremities- Scheduled 2018 [facility] [address] [place], [place] [id number] [phone] Bryson Mcgarry MD Bilateral hand pain ? injections jw Scheduled 2018 [facility] [address] [address] [phone] You Delgado MD for edema, congestive heart failure Scheduled 04/23/[address] [place] [address] [phone] Villa ALCOCER, Marisela knee pain , right shoulder pain Scheduled 04/26/2019 [facility] [address] [id number] [phone]
[2019-08-06 17:55] LABS: ABS Basophils 0.1 10^3/ul (0-0.2); ABS Eosinophils 0.4 10^3/ul (0-0.6); ABS Lymphocytes 1.6 10^3/ul (1.0-4.8); ABS Monocytes 0.7 10^3/ul (0-0.8); ABS Neutrophils 6.9 10^3/ul (1.5-7.7); Eosinophil % 4.3 %; Hematocrit 33 % (35-47); Hemoglobin 11.3 g/dL (12.0-16.0); Lymphocyte % 16.9 %; Mean Corpuscular HGB Conc 35 g/dL (31-36); Mean Corpuscular Hemoglobin 33 pg (27-31); Mean Corpuscular Volume 97 fL (80-97); Mean Platelet Volume 7.6 fL (7.4-10.4); Nucleated Red Blood Cells % 0.1; Platelet Count 216 10^3/uL (150-450); Red Blood Count 3.39 10^6 /uL (3.70-4.87); Red Cell Distribution Width 13 % (10-15); White Blood Count 9.7 10^3/uL (3.5-10.8)
[2019-08-06] MEDS ORDERED: HYDROcodone/ACETAMIN 5-325 MG* 1 TAB PO ONE (18:17)
[2019-08-06 18:18] LABS: Albumin/Globulin Ratio 1.2 (1-3); BUN/Creatinine Ratio 35.2 (8-20); C Reactive Protein 58.65 mg/L (<8.01); Calcium 9.5 mg/dL (8.6-10.3); EGFR African American 43.2 (>60); EGFR Non-African American 35.7 (>60); Globulin 3.4 g/dL (2-4); Potassium 4.1 mmol/L (3.5-5.0); Total Bilirubin 0.3 mg/dL (0.2-1.0); Total Protein 7.4 g/dL (6.4-8.9)
[2019-08-06] MEDS ORDERED: Sulfamethox/Trimethoprim DS 800/160* TAB PO ONE (20:55)
[2019-08-06 21:11] VITALS: BP 142/78
== END 2019-08-06 21:12 | disposition home or self-care (01) ==
LOC: ED 16:36
DX: M71.21 Synovial cyst of popliteal space [Baker], right knee (principal); I48.91 Unspecified atrial fibrillation; 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 kidney disease with heart failure and stage 1 through stage 4 chronic kidney disease, or unspecified chronic kidney disease; N18.3 Chronic kidney disease, stage 3 (moderate); I50.9 Heart failure, unspecified; I25.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 native coronary artery without angina pectoris; E78.5 Hyperlipidemia, unspecified; E07.9 Disorder of thyroid, unspecified; E78.00 Pure hypercholesterolemia, unspecified; J45.909 Unspecified asthma, uncomplicated; K21.9 Gastro-esophageal reflux disease without esophagitis; D63.1 Anemia in chronic kidney disease; Z96.643 Presence of artificial hip joint, bilateral; Z90.49 Acquired absence of other specified parts of digestive tract; Z95.5 Presence of coronary angioplasty implant and graft; Z79.01 Long term (current) use of anticoagulants; Z79.899 Other long term (current) drug therapy; Z88.5 Allergy status to narcotic agent; Z88.8 Allergy status to other drugs, medicaments and biological substances; Z88.1 Allergy status to other antibiotic agents; Z91.041 Radiographic dye allergy status
CPT/HCPCS: 36415; 80053; 85025; 86140; 99282; A9270-GY

== ENCOUNTER 2019-08-08 17:05 | Inpatient (IN) | payer MEDICARE, BC ==
--- NOTE | 2019-08-08 18:18 | ED ---
Complex/Multi-Sys Presentation - HPI Summary HPI Summary: 78 y/o female presented to [facility] complaining of back pain that she suspects is due to an infection on her leg. Pt endorses Chills, N/V/D, coughing. She states her back hurts at the right lower shoulder blade when walking. Pt denies Hx of DM and used to smoke but endorses Hx of triple bypass surgery, surgery in both knees for a torn meniscus, appendectomy, cholecystectomy, hernial surgery, 22 screws and 2 rods in her back, and 2 artificial hips. She is on antibiotics and O2. Medications reviewed. Allergies noted. - History Of Current Complaint Chief Complaint: EDExtremityLower Time Seen by Provider: 08/08/19 17:43 Hx Obtained From: Patient Onset/Duration: Still Present Timing: Intermittent, Lasting: - when walking Severity Currently: Moderate Associated Signs And Symptoms: Positive: Cough, Nausea, Vomiting, Diarrhea, Back Pain, Other - chills - Allergies/Home Medications Allergies/Adverse Reactions: Allergies Allergy/AdvReac Type Severity Reaction Status Date / Time atorvastatin [From Lipitor] Allergy See Comment Verified 08/08/19 17:15 imipramine Allergy Unknown Verified 08/08/19 17:15 Reaction Details Iodinated Contrast Media Allergy Nausea Verified 08/08/19 17:15 [Iodinated Contrast- Oral and IV Dye] misoprostol [From Cytotec] Allergy Itching Verified 08/08/19 17:15 naproxen Allergy Itching Verified 08/08/19 17:15 nitrofurantoin Allergy Unknown Verified 08/08/19 17:15 Reaction Details theophylline [From Uniphyl] Allergy Unknown Verified 08/08/19 17:15 Reaction Details tiagabine [From Gabitril] Allergy Rash Verified 08/08/19 17:15 tizanidine Allergy Unknown Verified 08/08/19 17:15 Reaction Details fentanyl AdvReac Dizziness Verified 08/08/19 17:15 Miyizbc-Slr-Myn Reductase AdvReac Vomiting Verified 08/08/19 17:15 Inhibitor PMH/Surg Hx/FS Hx/Imm Hx Endocrine/Hematology History: Reports: Hx Thyroid Disease, Hx Anemia - ON DAILY IRON, 01/2018 WHILE HOSPITALIZED RECEIVE 7 UNITS BLOOD Denies: Hx Diabetes Cardiovascular History: Reports: Hx Angina, Hx Congestive Heart Failure, Hx Coronary Artery Disease, Hx Hypercholesterolemia, Hx Hypertension Denies: Hx Myocardial Infarction, Hx Pacemaker/ICD, Hx Valvular Heart Disease Comment Only: Other Cardiovascular Problems/Disorders - neurologist, dr stanley Respiratory History: Reports: Hx Asthma, Hx Pneumonia, Hx Sleep Apnea - SLIGHT, USES OXYGEN AT NIGHT AND PRN DURING DAY Denies: Hx Chronic Obstructive Pulmonary Disease (COPD) GI History: Reports: Hx Gastroesophageal Reflux Disease - ON DAILY MEDS, Hx Gastrointestinal Bleed, Hx Hiatal Hernia, Hx Ulcer - CURED WITH MEDS 2016 History: Reports: Hx Renal Disease - stage 3 CKD, Other Problems/ Disorders - Tx BY DR ALICIA ALCOCER IN [place] Denies: Hx Dialysis Musculoskeletal History: Reports: Hx Arthritis - STATES ALL OVER STATES NECK TO TOES, Hx Back Problems, Hx Fibromyalgia, Hx Orthopedic Injury, Other Musculoskeletal History - FIBROMYALGIA Sensory History: Reports: Hx Cataracts - BILATERAL, Hx Hearing Aid - R side only , WILL WEAR DAY OF SURGERY & HAVE CASE, Hx Hearing Problem Denies: Hx Contacts or Glasses Opthamlomology History: Reports: Hx Cataracts - BILATERAL Denies: Hx Contacts or Glasses Neurological History: Reports: Hx Headaches - with chest pain gets severe headaches, Hx Transient Ischemic Attacks (TIA) Denies: Hx Dementia, Hx Seizures Psychiatric History: Reports: Other Psychiatric Issues/Disorders - claustrophobia Denies: Hx Panic Disorder - Surgical History Surgery Procedure, Year, and Place: 2008 FUSION LOW BACK. TSP -LSP [place] RODS/SCREWS 2004-- 2011 -TOTAL OF 5 SURGERIES LAST ONE 2011 Xs 2. 2006BILATERAL HIP REPLACEMENT. 06/2003 LEFT HEEL TARSAL TUNNEL -. 12/2004 WART -REMOVED FROM EYELID. 2002 CARPAL TUNNEL - [place]ORIAN. 2002 Lt KNEE -2 & 09/2002 & 01/2003 Rt KNEE - 3 TIMES - ARTHROSCOPIC. 2007 RIGHT BREAST LUMPECTOMY. 1999 CHOLECYSTECTOMY. TONSILECTOMY- as child. UMBILICAL HERNIA REPAIR. 2008 APPENDECTOMY. 06/2005 FLORIAN BREAST REDUCTION. Lt THUMB - GANGLION CYST. T2007 LEFT TOTAL HIP. Rt ARM - "LUMP" REMOVED-. 2005 RT HIP TOTAL REPLACEMENT. 01/2018 CARDIAC STENT. 07/07 heart cath la[place]ne Hx Anesthesia Reactions: Yes - ALWAYS RECEIVES ANTI NAUSEA MEDS PRE-OP - Immunization History Date of Influenza Vaccine: 05/15/18 Infectious Disease History: No Infectious Disease History: Denies: Hx Clostridium Difficile, Hx Hepatitis, Hx of Known/Suspected MRSA, Traveled Outside the [place] in Last 30 Days - Family History Known Family History: Positive: Cardiac Disease - Father used to use NTG. 3 brothers have had CABG. 4th had CVA and [place] Diabetes - Social History Alcohol Use: Rare Alcohol Amount: reports only a couple of drinks 4 times per year Hx Substance Use: No Substance Use Type: Reports: None Hx Tobacco Use: No Smoking Status (MU): Never Smoked Tobacco Have You Smoked in the Last Year: No Review of Systems Positive: Chills Positive: Cough Positive: Vomiting, Diarrhea, Nausea All Other Systems Reviewed And Are Negative: Yes Physical Exam - Summary Physical Exam Summary: Constitutional: Well-developed, Well-nourished, Alert. Rigors in room. Skin: Warm, Dry HENT: Normocephalic; Atraumatic Eyes: Conjunctiva normal Neck: Musculoskeletal ROM normal neck. (-) JVD, (-) Stridor, (-) Tracheal deviation Cardio: Rhythm regular, rate normal, Heart sounds normal; Intact distal pulses; Radial pulses are 2+ and symmetric. (-) Murmur Pulmonary/Chest wall: Effort normal. (-) Respiratory distress, (-) Wheezes, (-) Rales Abd: Soft, (-) tenderness, (-) Distension, (-) Guarding, (-) Rebound Musculoskeletal: Area of swelling and induration on right leg, medial and distal to the knee that tracks to the popliteal fossa; area is erythematous, tender, and warm Lymph: (-) Cervical adenopathy Neuro: Alert, Oriented x3 Psych: Mood and affect Normal Triage Information Reviewed: Yes Vital Signs On Initial Exam: Initial Vitals Temp Pulse Resp BP Pulse Ox 98.6 F 85 16 165/76 95 08/08/19 17:08 08/08/19 17:08 08/08/19 17:08 08/08/19 17:08 08/08/19 17:08 Vital Signs Reviewed: Yes Procedures - Sedation Patient Received Moderate/Deep Sedation with Procedure: No Diagnostics - Vital Signs Vital Signs Temp Pulse Resp BP Pulse Ox 08/08/19 17:55 79 95 08/08/19 17:53 81 155/63 96 08/08/19 17:08 98.6 F 85 16 165/76 95 - Laboratory Result Diagrams: 08/08/19 18:20 08/08/19 18:20 Lab Statement: Any lab studies that have been ordered have been reviewed, and results considered in the medical decision making process. - Radiology cxr Radiology Interpretation Completed By: ED Physician Summary of Radiographic Findings: Sternotomy hardware present. Spinal hardware present. Possible cardiomegaly. No obvious infiltrate. This x-ray was reviewed and interpreted by the ED physician pending official read. Complex Multi-Symp Course/Dx Course Of Treatment: Patient is here with worsening infection at her popliteal cyst. Patient was seen here 2 days ago, diagnosed with an infected bakers cyst on ultrasound. Patient started on Bactrim. Patient developed worsening chills and Rigor's today. Upon arrival, patient was normal cardiac and afebrile but did have Rigor's in bed. Patient had blood performer showed a leukocytosis and worsening CRP. Patient's lactate was normal. Orthopedic surgery was called and recommended broad-spectrum antibiotics, thornton culture, and admission to the hospitalist service. Dr. Umana will see the patient in the morning for possible operative debridement. Patient will be made nothing by mouth at midnight. - Diagnoses Provider Diagnoses: Rigors, Infected cyst of skin, Bakers cyst - Physician Notifications Discussed Care Of Patient With: Bryson Umana Time Discussed With Above Provider: 18:59 Instructed by Provider To: Other - Pt case was discussed with Dr. Umana, who will treat the pt in the morning and recommends admission to the hospitalist. At 1925 pt case was discussed with Dr. Brenda Carvajal, who agreed to accept the pt. Discharge ED - Sign-Out/Discharge Documenting (check all that apply): Patient Departure - admit - Discharge Plan Condition: Stable Disposition: ADMITTED TO [facility] Referrals: Manas Villeda MD [Primary Care Provider] - - Billing Disposition and Condition Condition: STABLE Disposition: Admitted to [facility] - Attestation Statements Document Initiated by Arabella: Yes Documenting Navaibsilvino: Abelardo Ford Provider For Whom Arabella is Documenting (Include Credential): Que Jay MD Scribe Attestation: Abelardo Heaton, scribed for Que Jay MD on 08/08/19 at 2049. Scribe Documentation Reviewed: Yes Provider Attestation: The documentation as recorded by the Abelardo schaffer accurately reflects the service I personally performed and the decisions made by me, Que Jay MD Status of Scribe Document: Viewed
[2019-08-08 18:28] LABS: ABS Eosinophils 0.2 10^3/ul (0-0.6); ABS Lymphocytes 1.9 10^3/ul (1.0-4.8); ABS Monocytes 0.9 10^3/ul (0-0.8); ABS Neutrophils 7.9 10^3/ul (1.5-7.7); Eosinophil % 2.2 %; Hematocrit 30 % (35-47); Hemoglobin 10.4 g/dL (12.0-16.0); Lymphocyte % 17.1 %; Mean Corpuscular HGB Conc 34 g/dL (31-36); Mean Corpuscular Hemoglobin 33 pg (27-31); Mean Corpuscular Volume 97 fL (80-97); Platelet Count 218 10^3/uL (150-450); Red Blood Count 3.12 10^6 /uL (3.70-4.87); Red Cell Distribution Width 12 % (10-15); White Blood Count 10.9 10^3/uL (3.5-10.8)
[2019-08-08 18:45] LABS: BUN/Creatinine Ratio 23.7 (8-20); C Reactive Protein 177.86 mg/L (<8.01); EGFR African American 22.6 (>60); EGFR Non-African American 18.7 (>60); Potassium 4.1 mmol/L (3.5-5.0)
[2019-08-08 18:52] LABS: Influenza A Molecular NEGATIVE (Negative); Influenza B Molecular NEGATIVE (Negative)
[2019-08-08] MEDS ORDERED: Cefepime(*) 2 GM in NS 0.9% 50 ML* 50 ML IVPB ONE (19:02)
[2019-08-08 19:06] LABS: Urine Appearance Clear; Urine Bilirubin Negative (Negative); Urine Blood Negative (Negative); Urine Color Yellow; Urine Glucose Negative (Negative); Urine Ketones Negative (Negative); Urine Nitrite Negative (Negative); Urine Protein 1+(30 mg/dL) (Negative); Urine Specific Gravity 1.014 (1.010-1.030); Urine Urobilinogen Negative (Negative)
[2019-08-08 19:09] LABS: Urine Bacteria Absent (Absent); Urine Red Blood Cell 1+(3-5/hpf) (Absent); Urine Squamous Epithelial Cell Present (Absent); Urine White Blood Cell Trace(0-5/hpf) (Absent)
[2019-08-08] MEDS ORDERED: Hydrocodone/Acetamin 10/325 MG 1 TAB PO ONE (19:09)
[2019-08-08] MEDS ORDERED: Vancomycin 1500 MG IV - x ONCE IVPB ONE ×2 (20:00)
[2019-08-08] MEDS ORDERED: Vancomycin(*) 1,000 MG VIAL IVPB SCH (20:00)
[2019-08-08] MEDS ORDERED: Cefepime 2 GM in Dextrose(*) 2 GM/50 ML BAG IV ONE (20:00)
[2019-08-08] MEDS ORDERED: NS 0.9% 1000 ML** 1,000 ML IV ONE ×2 (20:31→20:34)
[2019-08-08] MEDS ORDERED: Albuterol/Ipratropium NEB.SOL* Albuterol 2.5 MG/Ipratropium 0.5 MG 3 ML INH PRN (20:34)
[2019-08-08] MEDS ORDERED: Hydrocodone/Acetamin 10/325 MG 1 TAB PO PRN (20:41)
[2019-08-08] MEDS ORDERED: Fluticasone NASAL SPRAY 50MCG* 16 gm SPRAY BTL BOTH NARES SCH (21:00)
[2019-08-08] MEDS ORDERED: Venlafaxine EXT RELEASE CAP* 37.5 MG PO SCH (21:00)
[2019-08-08] MEDS ORDERED: Enoxaparin(*) 40 MG/0.4 ML SYR SUBCUT SCH (21:00)
[2019-08-08] MEDS ORDERED: NON FORMULARY MED* (Melatonin [Melatonin] 10 MG) PO SCH (21:00)
[2019-08-08] MEDS ORDERED: Senna TAB 8.6 mg* TAB PO SCH (21:00)
[2019-08-08] MEDS ORDERED: Fluticasone HFA 110 mcg(NF) MDI INH SCH (21:00)
[2019-08-08] MEDS ORDERED: Pramipexole TAB* 0.5 MG PO SCH (21:00)
[2019-08-08] MEDS ORDERED: Vancomycin per Pharmacy* NOTE FOLLOW UP SCH ×2 (21:00→23:00)
[2019-08-08] MEDS ORDERED: Metoprolol Succinate XL TAB* 25 MG PO SCH (21:00)
[2019-08-08] MEDS ORDERED: Primidone 50 mg TAB (*) PO SCH (21:00)
[2019-08-08 21:40] LABS: Erythrocyte Sed Rate 72 mm/Hr (0-29)
[2019-08-08] MEDS: Morphine INJ* 4 MG/ML 1 ML SYRINGE (NEW SYRINGE VERSION) IV PRN (22:51)
[2019-08-08] MEDS: Heparin VIAL(*) 5000 UNITS/ML VIAL (FIVE THOUSAND) SUBCUT SCH (22:59)
[2019-08-08] MEDS: Pantoprazole TAB * 40 MG TAB PO SCH (22:59)
[2019-08-08] MEDS: Senna TAB 8.6 mg* TAB PO SCH (23:00)
[2019-08-08] MEDS ORDERED: Vancomycin(*) 500 MG in NS 0.9% 250 ML* 250 ML IVPB ONE (23:30)
--- NOTE | 2019-08-09 00:09 | HP ---
ADDENDUM NOW INCLUDED ON THIS REPORT ADMISSION HISTORY AND PHYSICAL: DATE OF ADMISSION: 08/08/19 PRIMARY CARE PROVIDER: Dr. Villeda. PROVIDER: Renetta Pagan NP ATTENDING PHYSICIAN: Dr. Brenda Carvajal.* (DICTATED BY RENETTA PAGAN NP) OTHER PROVIDER: Dr. Umana. CHIEF COMPLAINT: Chills, nausea, vomiting, diarrhea, and coughing. HISTORY OF PRESENT ILLNESS: This is a 78-year-old female with a past medical history significant for HFpEF, AFib, hypertension, who presented to the emergency room on 08/08/19 for chills, nausea, vomiting, diarrhea, and coughing. Originally, the patient came to the emergency room on 08/06/19 with reports of right knee pain. At that time, Dopplers were done on the right leg which was negative for DVT, but was found that she had an infected [place] cyst, so she was sent home with Bactrim. However, she returned today on 08/08/19 for reports of worsening redness as well as 1.5-week history of diarrhea and a 3- day history of nausea, vomiting, and increasing pain. Starting 1.5 weeks ago, she began having bowel movements about 3 to 4 times a day, which are generally liquid. She attributes this to having consumed milk products. She is off and on lactose intolerant, sometimes can eat certain things like cheese and cottage cheese but sometimes cannot, though stated this began to improve. Stools are becoming less frequent and more formed within the last day or so and starting on Friday, she woke up in the morning with her right leg red, swollen, and painful, which is at that point, she had come to the hospital. There had been no signs of additional swelling or redness the night before. Around that time, she vomited once or twice each day. She stated she brought up "sour water." She also reports coughing without sputum production, feeling short of breath with exertion and is having increasing difficulty walking secondary to pain, which starts in her right mid back below her scapula as well as in her right leg. In the emergency room, she was given IV fluids, cefepime, and vancomycin as well as her routine pain medicine that she typically takes. Dr. Umana was consulted and will see the patient in the morning for a possible I and D. The hospitalists were asked to evaluate the patient for admission. PAST MEDICAL HISTORY: 1. Asthma. 2. Lymphedema. 3. Obstructive sleep apnea. 4. Restless legs syndrome. 5. Hypertension. 6. Chronic anemia. 7. Myeloproliferative disorder. 8. HFpEF. 9. Paroxysmal atrial fibrillation. 10. Bone marrow biopsies x2. 11. Essential tremors. 12. Fibromyalgia. 13. GERD. 14. Hypothyroidism. 15. Headaches. 16. STEMI. 17. Chronic kidney disease, stage 3. 18. Esophageal spasm. 19. Gastric ulcer secondary to NSAID use. 20. Angina secondary to ostial RCA lesion. PAST SURGICAL HISTORY: 1. Triple bypass. 2. Left knee scope x1. 3. Right knee scope x3. 4. Cholecystectomy. 5. Appendectomy. 6. Umbilical hernia repair. 7. Bilateral hip replacements. 8. Bilateral cataract repairs. 9. A total of 5 back surgeries. 10. Breast reduction. HOME MEDICATIONS: 1. Amiodarone 100 mg p.o. daily. 2. Albuterol 2 puffs inhalation q.6 hours p.r.n. 3. Albuterol 2.5 mg/3 mL one nebulizer treatment four times a day/p.r.n. 4. Torsemide 20 mg p.o. daily. 5. Fluticasone 110 mcg 1 puff inhalation b.i.d. 6. Zetia 10 mg p.o. daily. 7. Clopidogrel 75 mg p.o. daily. 8. Cholecalciferol 2000 units p.o. daily. 9. Calcium carb/mag oxide 1 tab p.o. daily. 10. Hydrocodone/acetaminophen 10/325 two tabs p.o. q.4 hours p.r.n. 11. Fluticasone 1 spray both nares at bedtime. 12. Levocetirizine 5 mg p.o. daily. 13. Primidone 150 mg p.o. at bedtime. 14. Pramipexole 2 mg p.o. at bedtime. 15. Omeprazole 20 mg p.o. b.i.d. 16. Multivitamin with folic acid 400 mcg p.o. daily. 17. Montelukast sodium 10 mg p.o. daily. 18. Metoprolol succinate 25 mg p.o. b.i.d. 19. Melatonin 10 mg at bedtime. 20. Levothyroxine 175 mcg p.o. daily. 21. Shark cartilage 1000 mg p.o. b.i.d. 22. Sennoside/docusate 2 tabs p.o. b.i.d. 23. Amlodipine 10 mg p.o. daily. 24. Vitamin B1 cap p.o. q.a.m. 25. Venlafaxine 37.5 mg p.o. at bedtime. ALLERGIES: To ATORVASTATIN, IMIPRAMINE, IV CONTRAST, CYTOTEC, NAPROXEN, NITROFURANTOIN, THEOPHYLLINE, TIAGABINE, TIZANIDINE, FENTANYL, ALL STATINS. FAMILY HISTORY: Both parents had coronary artery disease. SOCIAL HISTORY: Denies any recreational substance or tobacco use. Drinks a couple of drinks 2 times a year. She is retried and to her , Herminio, who is also her surrogate decision maker. REVIEW OF SYSTEMS: A 12-point system review was performed, which was positive for frequent coughs, which the patient states is due to her frequent sinus drainage. She feels chilled, has lost 10 pounds in 1 week though she is also trying to lose weight. Dry mouth and poor appetite in the past week. After 3 or 4 minutes of standing, her feet and legs will go numb which is better with rest. Her fingers intermittently become numb and tingly, currently experiencing 10/10 pain to the right medial calf. Negative for chest pain. PHYSICAL EXAMINATION GENERAL: This is a well-developed, obese woman seen lying in bed, in no acute distress. VITAL SIGNS: 98.6 Fahrenheit, 81 pulse, 16 respirations, 92% oxygen on room air , 149/90 blood pressure. HEENT: Conjunctivae pink and moist. PERRLA. EOMs intact. Mucous membranes dry. Oropharynx clear. NECK: Supple. RESPIRATORY: Lung sounds diminished in the bases bilaterally on room air. Other lung simms are clear. No accessory muscle use noted. CARDIAC: S1, S2 present. Heart rate regular. No murmurs, gallops, or rubs appreciated. Has 3+ non-pitting bilateral lower extremity edema. ABDOMEN: Soft, nontender, nondistended with positive bowel sounds x4. MUSCULOSKELETAL: No clubbing or cyanosis of the digits. Full range of motion. NEURO: Sensation intact to light touch. No focal deficits appreciated. PSYCH: She is alert and oriented x3. No overt anxiety or depression. SKIN: There is a large area of redness with induration to the right medial knee. DIAGNOSTIC STUDIES/LAB DATA: WBC 10.9, RBC 3.12, hemoglobin 10.4, hematocrit 30, MCH 33. Sodium 133, chloride 97, anion gap 12, BUN 59, creatinine 2.49, BUN /creatinine ratio 23.7, glucose 180, lactic acid 1.3. C-reactive protein 177.86. Urine has 1+ protein, 1+ rbc, squamous epithelial cells present, hyaline cast present. Negative for influenza A and B. Chest x-ray performed. Radiologic interpretation has not come back yet; however , it appears that the patient has a left lower lobe pneumonia due to opacification seen on x-ray. ASSESSMENT AND PLAN: My impression is this is a 78-year-old female with a past medical history significant for heart failure with preserved ejection fraction, paroxysmal atrial fibrillation, and hypertension, who was admitted on 08/08/19 for right popliteal cyst infection and left lower lobe pneumonia. 1. Right popliteal cyst infection. The right medial knee has a large area of redness and induration with mild leukocytosis, no fever. Dr. Umana was consulted and he will see the patient in the a.m. The patient already received cefepime and vancomycin in the emergency room, which I will continue during her admission. We will keep the patient n.p.o. after midnight for any procedure that may happen tomorrow. Normal saline at 75 mL an hour x1 bag for hydration. We will order MRI of right lower extremity to rule out osteomyelitis. No signs of sepsis. 2. Left lower lobe pneumonia, probable. We will send urine for legionella and Streptococcus pneumoniae. The cefepime and vancomycin already ordered for the knee infection will also cover any possible pathogens for pneumonia. She is not requiring any supplemental oxygen at this point, has a cough that was non- productive. 3. Acute on chronic kidney disease. Creatinine is significantly elevated from her baseline. This is likely secondary to infection and having taken several days of Bactrim. We will order 1 L of normal saline to infuse at 75 mL an hour. Recheck kidney function in the a.m. and avoid nephrotoxic medications. 4. Hypothyroidism. Stable. Continue the levothyroxine. 5. Gastroesophageal reflux disease. Continue omeprazole. There are no signs or symptoms of indigestion at this time. 6. Hypertension. I will hold her torsemide for now as we are trying to hydrate her to correct acute kidney injury. 7. Coronary artery disease with triple bypass in August of last year. The Plavix is on hold for possible procedure tomorrow though should be restarted at the earliest convenience. She is not on any aspirin. Torsemide is on hold. Continue metoprolol, amlodipine, and amiodarone. 8. Paroxysmal atrial fibrillation. Continue amiodarone and metoprolol as the patient is rate controlled, although the patient is not currently on any anticoagulants. 9. Hyperlipidemia. Continue Zetia. 10. Anxiety/depression. Continue venlafaxine. 11. Essential tremors. Continue pramipexole and primidone. 12. Asthma. She is to continue her fluticasone inhalers, levocetirizine, and montelukast. 13. DVT prophylaxis. Ordered heparin so that it may easily be stopped for any procedure that could possibly happen tomorrow. 14. Code status is full code. DISPOSITION: Admit OBV to [address] [place] [address]. CONDITION: Guarded. TIME SPENT: Time spent on the patient is 60 minutes with half of that spent face- to-face. Case was reviewed by my attending and they agree with my plan of care. RENETTA PAGAN NP ADDENDUM: This is an addendum to the history and physical by Ms. Renetta Pagan. DATE OF ADMISSION: 08/08/18 The patient was seen and examined by myself. The case was discussed with Renetta Pagan in detail. At this point, we will continue the patient on cefepime as well as vancomycin. Continue gentle hydration, MRI has been ordered. We will await further recommendations by the orthopedic surgeon, Dr. Umana, who will consult on the patient. Continue other home medications with the exception of Plavix as the patient may require procedure. I have physically examined the patient myself as well. PHYSICAL EXAMINATION: General: An elderly female, lying in bed, in no acute distress, obese. Cardiac: S1 and S2 present. 2+ non-pitting bilateral lower extremity edema. Extremities: At the right knee at the medial aspect, there is an area of erythema with induration and tenderness. The range of motion at bilateral knees is intact. Respiratory: Diminished breath sounds at the lower lung bases. There is no tachypnea. No use of accessory muscles. Vital Signs and detailed exam: As listed in the history and physical done by Ms. Pagan. DAVI CARVAJAL MD [id number]/CPS #: [id number] Emily [id number]/CPS #: [id number] PAMELA
[2019-08-09] MEDS: Hydrocodone/Acetamin 10/325 MG 1 TAB PO PRN ×3 (02:21→19:14)
--- NOTE | 2019-08-09 03:32 | HP ---
History and Physical DATE OF ADMISSION: 08/08/18 ADDENDUM: This is an addendum to the history and physical by Ms. Renetta Pagan. The patient was seen and examined by myself. The case was discussed with Renetta Pagan in detail. At this point, we will continue the patient on cefepime as well as vancomycin. Continue gentle hydration, MRI has been ordered. We will await further recommendations by the orthopedic surgeon, Dr. Umana, who will consult on the patient. Continue other home medications with the exception of Plavix as the patient may require procedure. I have physically examined the patient myself as well. PHYSICAL EXAMINATION: General: An elderly female, lying in bed, in no acute distress, obese. Cardiac: S1 and S2 present. 2+ non-pitting bilateral lower extremity edema. Extremities: At the right knee at the medial aspect, there is an area of erythema with induration and tenderness. The range of motion at bilateral knees is intact. Respiratory: Diminished breath sounds at the lower lung bases. There is no tachypnea. No use of accessory muscles. Vital Signs and detailed exam: As listed in the history and physical done by Ej. [id number]/CPS #: [id number] MTDD
[2019-08-09] MEDS: Ondansetron INJ* 2 MG/ML VIAL IV PRN ×2 (05:08→09:57)
[2019-08-09] MEDS: Levothyroxine TAB* 175 MCG TAB PO SCH (05:59)
[2019-08-09] MEDS: Heparin VIAL(*) 5000 UNITS/ML VIAL (FIVE THOUSAND) SUBCUT SCH ×3 (06:00→20:41)
[2019-08-09] MEDS: amLODIPine TAB* 5 MG PO SCH (07:55)
[2019-08-09] MEDS: Montelukast Sodium TAB* 10 MG PO SCH (07:56)
[2019-08-09] MEDS: Pantoprazole TAB * 40 MG TAB PO SCH ×2 (07:56→20:41)
[2019-08-09] MEDS: Cholecalciferol TAB* 1000 UNITS PO SCH (07:56)
[2019-08-09] MEDS: Ezetimibe TAB* 10 MG PO SCH (07:56)
[2019-08-09] MEDS: Metoprolol Succinate XL TAB* 25 MG PO SCH ×2 (07:56→20:40)
[2019-08-09] MEDS: Multivitamins/Minerals TAB PO SCH (07:57)
[2019-08-09] MEDS: Senna TAB 8.6 mg* TAB PO SCH ×2 (07:57→20:40)
[2019-08-09] MEDS: Amiodarone TAB* 200 MG PO SCH (07:57)
[2019-08-09] MEDS: Cetirizine* 10 MG TAB PO SCH (07:57)
[2019-08-09] MEDS: Cefepime 1 GM in Dextrose(*) 1 GM/50 ML BAG IV SCH ×2 (08:01→20:35)
[2019-08-09 08:40] LABS: ABS Eosinophils 0.2 10^3/ul (0-0.6); ABS Monocytes 1.1 10^3/ul (0-0.8); ABS Neutrophils 9.3 10^3/ul (1.5-7.7); Eosinophil % 1.4 %; Hematocrit 26 % (35-47); Hemoglobin 9.1 g/dL (12.0-16.0); Lymphocyte % 16.2 %; Mean Corpuscular HGB Conc 35 g/dL (31-36); Mean Corpuscular Hemoglobin 33 pg (27-31); Mean Corpuscular Volume 96 fL (80-97); Mean Platelet Volume 7.5 fL (7.4-10.4); Platelet Count 185 10^3/uL (150-450); Red Blood Count 2.74 10^6 /uL (3.70-4.87); Red Cell Distribution Width 12 % (10-15); White Blood Count 12.6 10^3/uL (3.5-10.8)
[2019-08-09] MEDS: DOXYcycline IV* 100 MG in NS 0.9% 250 ML* 250 ML IVPB SCH ×2 (08:41→19:13)
[2019-08-09 08:57] LABS: BUN/Creatinine Ratio 25.1 (8-20); C Reactive Protein 198.33 mg/L (<8.01); Calcium 8.4 mg/dL (8.6-10.3); EGFR African American 25.6 (>60); EGFR Non-African American 21.2 (>60); Potassium 4.2 mmol/L (3.5-5.0)
[2019-08-09] MEDS ORDERED: Levothyroxine TAB* 175 MCG TAB PO SCH (09:00)
[2019-08-09] MEDS ORDERED: Cefepime ADVAN(*) 1 GM in NS 0.9% 50 ML* 50 ML IVPB SCH ×4 (09:00)
[2019-08-09] MEDS ORDERED: Ezetimibe TAB* 10 MG PO SCH (09:00)
--- NOTE | 2019-08-09 09:39 | PN ---
Subjective Date of Service: 08/09/19 Interval History: HOSPITALIST PROGRESS NOTE Patient seen and examined at bedside. Care reviewed and d/w Marj Garcia RN. She feels a little better today. Denies chest pain, breathing is easier. Major complaint is right knee pain. Family History: Unchanged from Admission Social History: Unchanged from Admission Past Medical History: Unchanged from Admission Objective Active Medications: Hydrocodone Bitart/Acetaminophen (Cardwell 10/325 (Nf)) 2 tab PO Q4H PRN PRN Reason: PAIN Last Admin: 08/09/19 07:56 Dose: 2 tab Albuterol/Ipratropium (Duoneb (Albuterol 2.5 Mg/Ipratropium 0.5 Mg)) 1 neb INH [id number] AWAKE PRN PRN Reason: sob/wheexing Amiodarone HCl (Cordarone Tab*) 100 mg PO DAILY [facility] Last Admin: 08/09/19 07:57 Dose: 100 mg Amlodipine Besylate (Norvasc Tab*) 10 mg PO DAILY [facility] Last Admin: 08/09/19 07:55 Dose: 10 mg Cetirizine HCl (Zyrtec*) 10 mg PO DAILY [facility] Last Admin: 08/09/19 07:57 Dose: 10 mg Cholecalciferol (Vitamin D Tab*) 2,000 units PO DAILY [facility] Last Admin: 08/09/19 07:56 Dose: 2,000 units Docusate Sodium (Colace Cap*) 100 mg PO BID [facility] Ezetimibe (Zetia Tab*) 10 mg PO DAILY [facility] Last Admin: 08/09/19 07:56 Dose: 10 mg Fluticasone Propionate (Flonase Nasal [place] 50mcg*) 1 spray BOTH NARES BEDTIME [facility] Heparin Sodium (Porcine) (Heparin Vial(*)) 5,000 units SUBCUT Q8HR [facility] Last Admin: 08/09/19 06:00 Dose: 5,000 units Cefepime HCl (Maxipime 1 Gm In Dextrose Duplex (*)) 1 gm in 50 mls @ 100 mls/ hr IV Q12H [facility] Last Admin: 08/09/19 08:01 Dose: 100 mls/hr Doxycycline Hyclate 100 mg/ (Sodium Chloride) 250 mls @ 250 mls/hr IVPB Q12H [facility] Last Admin: 01/20/20 08:41 Dose: 250 mls/hr Levothyroxine Sodium (Synthroid Tab*) 175 mcg PO DAILY@0600 [facility] Last Admin: 08/09/19 05:59 Dose: 175 mcg Melatonin (Melatonin) 9 mg PO BEDTIME [facility] Metoprolol Succinate (Toprol Xl Tab*) 25 mg PO BID [facility] Last Admin: 08/09/19 07:56 Dose: 25 mg Mometasone Furoate (Asmanex 220 Mcg Mdi *) 1 puff INH QPM [facility] Montelukast Sodium (Singulair Tab*) 10 mg PO DAILY [facility] Last Admin: 08/09/19 07:56 Dose: 10 mg Morphine Sulfate (Morphine Inj (Syringe)*) 4 mg IV Q4H PRN PRN Reason: PAIN - SEVERE Last Admin: 08/08/19 22:51 Dose: 4 mg Multivitamins/Minerals (Theragran/Minerals Tab*) 1 tab PO DAILY [facility] Last Admin: 08/09/19 07:57 Dose: 1 tab Ondansetron HCl (Zofran Inj*) 4 mg IV Q4H PRN PRN Reason: NAUSEA/VOMITING Last Admin: 08/09/19 05:08 Dose: 4 mg Pantoprazole Sodium (Protonix Tab*) 40 mg PO BID [facility] Last Admin: 08/09/19 07:56 Dose: 40 mg Pharmacy Consult (Vancomycin Per Pharmacy*) 1 note FOLLOW UP .VANC PER PHARMACY [facility]; Protocol Pramipexole Dihydrochloride (Mirapex Tab*) 2 mg PO BEDTIME [facility] Primidone (Mysoline 250 Mg Tab (*)) 150 mg PO BEDTIME [facility] Senna (Senokot 8.6 Mg Tab*) 1 tab PO Q12HR [facility] Last Admin: 08/09/19 07:57 Dose: 1 tab Venlafaxine HCl (Effexor Xr Cap*) 37.5 mg PO BEDTIME [facility] Vital Signs - 8 hr 08/09/19 08/09/19 08/09/19 02:11 02:21 03:15 Temperature 100.7 F Pulse Rate 99 Respiratory 18 16 18 Rate Blood Pressure 90/61 (mmHg) O2 Sat by Pulse 92 Oximetry 08/09/19 08/09/19 08/09/19 05:50 07:15 07:56 Temperature 98.3 F Pulse Rate 84 Respiratory 16 16 18 Rate Blood Pressure 121/54 (mmHg) O2 Sat by Pulse 95 Oximetry 08/09/19 08:00 Temperature Pulse Rate Respiratory 18 Rate Blood Pressure (mmHg) O2 Sat by Pulse Oximetry Oxygen Devices in Use Now: None Appearance: Morbid obese elderly lady lying in bed in NAD Eyes: No Scleral Icterus Ears/Nose/Mouth/Throat: Mucous Membranes Moist Neck: Trachea Midline Respiratory: Symmetrical Chest Expansion and Respiratory Effort, - - BS+ bilaterally with bibasilar crackles Cardiovascular: RRR - Normal S1 and S2 Abdominal: NL Sounds; No Tenderness; No Distention - Obese Extremities: - - Right knee area of edema and erythema to medial aspect, with fluctuation suggestive of Neurological: Alert and Oriented x 3, NL Muscle Strength and Tone Result Diagrams: 08/09/19 08:31 08/09/19 08:31 Microbiology and Other Data: Microbiology 08/08/19 19:00 Legionella Urinary Antigen - Final Urine Negative Legionella Antigen Streptococcus pneumoniae Ag Screen - Final Negative S. pneumo Antigen Assess/Plan/Problems-Billing Assessment: Mrs Martin is a 78yo F with PMH of morbid obesity with BMI 47.6, CAD s/p multivessel CABG 08/24/18 at [facility] with MAZE procedure, Afib not on AC due to GI bleed, hypothyroidism, CKD stage 3, VALENTIN, myeloproliferative disorder, who presented to ED with c/o chills and right knee pain, found to have right knee popliteal cyst with possible infection. - Patient Problems (1) Abscess of knee, right Comment: - Ortho input appreciated - probable medial right knee abscess. Recommended CT knee and plan to take to OR later today for I&D. - Continue Vancomycin and Cefepime. - Cultures show no growth so far. - Patient has h/o CAD and undewent multivessel CABG in August 2018. Doing well since, with no recurrent episodes of angina since. Last seen by Cardiology April 2019 felt to be stable and to continue medical management. Has not needed nitro since surgery. - RCRI is 2 predicting a 2.4-3.6% risk of MACE. - Patient is optimized for proposed procedure. She has an elevated risk for complications due to her multiple comorbidities, but her abscess needs to be drained. - ID consult requested. (2) Pneumonia Comment: - Concern for possible left lower lobe infiltrate on admission, but no clear infiltrate on CxR. - Suspect her symptoms are associated with her knee soft tissue infection. - Continue antibiotics and follow cultures. (3) CAD (coronary artery disease) Comment: - Stable. - No c/o chest pain or need for nitro since CABG. - EKG shows no acute ischemic changes. - Continue Plavix, metoprolol, amlodipine, Zetia. She's intolerant of statins and cannot afford PCSK9 agents. (4) IGDEON (acute kidney injury) Comment: - Creatinine up to 2.49 from baseline 1.4, likely secondary to Bactrim use. - Will monitor closely in the setting of Vancomycin use. - Creatinine down to 2.23. (5) Paroxysmal atrial fibrillation Comment: - S/p MAZE procedure. - Continue Amiodaron and Metoprolol. - EKG shows NSR. - Not on anticoagulation due to h/o GI bleed. (6) DVT prophylaxis Comment: - Heparin SQ (7) Full code status Status and Disposition: Change to inpatient.
[2019-08-09] MEDS ORDERED: methylPREDNISolone ACETATE 80* 80 MG/ML 1 ML VIAL ONE (09:59)
[2019-08-09] MEDS ORDERED: EPINEPHRINE 1 MG/ML 1 ML VIAL ONE (09:59)
[2019-08-09] MEDS ORDERED: Bupivacaine 0.5%* 50 ML MDV VIAL ONE (10:00)
[2019-08-09] MEDS ORDERED: Lidocaine 1% INJ* 10 MG/ML 30 ML SDV ONE (10:00)
[2019-08-09] MEDS ORDERED: Ondansetron INJ* 2 MG/ML VIAL ONE (10:23)
[2019-08-09] MEDS ORDERED: Midazolam* 1 MG/ML 5 ML VIAL (5 MG) ONE (10:23)
[2019-08-09] MEDS ORDERED: fentaNYL* 50 MCG/ML 2 ML VIAL (100 MCG VIAL) ONE (10:23)
[2019-08-09] MEDS ORDERED: Lidocaine 2% PF * 5 ML VIAL ONE (10:23)
[2019-08-09] MEDS ORDERED: KETAMINE HCL* 50 MG/ML 10 ML VIAL ONE (10:23)
[2019-08-09] MEDS ORDERED: Phenylephrine 10 MG/ML VIAL* 1 ML VIAL ONE (10:23)
[2019-08-09] MEDS ORDERED: Dexamethasone IV* 4 MG/ML 1 ML (4 MG) ONE (10:23)
[2019-08-09] MEDS ORDERED: Propofol* 10 MG/ML 20 ML BTL ONE (10:23)
[2019-08-09] MEDS ORDERED: Famotidine IV* 10 MG/ML 2 ML (20 mg) IV ONE (10:56)
[2019-08-09] MEDS ORDERED: Buffered Lidocaine 1% SYRIN* 1 ML/SYRINGE INTRADERM ONE (10:56)
[2019-08-09] MEDS ORDERED: Lactated Ringers 1000 ML Bag* 1,000 ML IV SCH (11:00)
[2019-08-09] MEDS ORDERED: Famotidine IV* 10 MG/ML 2 ML (20 mg) ONE (11:17)
[2019-08-09] MEDS ORDERED: Naloxone* 0.4 MG/ML 1 ML VIAL IV PRN (13:36)
[2019-08-09] MEDS ORDERED: Ondansetron INJ* 2 MG/ML VIAL IV PRN (13:36)
[2019-08-09] MEDS ORDERED: HYDROmorphone INJ1* 1 MG/ML SYRINGE ONE (13:41)
[2019-08-09] MEDS: HYDROmorphone INJ1* 1 MG/ML SYRINGE IV PRN ×5 (13:45→14:30)
--- NOTE | 2019-08-09 16:22 | CONS ---
CONSULTATION REPORT: DATE OF CONSULT: 08/09/19 HISTORY OF PRESENT ILLNESS: Roxi was admitted the night of 08/08/19. She is 78-year-old lady with bilateral knee osteoarthritis, who has been treated with arthroscopy and conservative care. For the last couple of weeks, she has had some diarrhea, feeling of malaise and 3 days of nausea, vomiting, increasing pain at the right knee. She was admitted with some signs of infection around the right knee. Previous ultrasound was negative for DVT, but showed a soft tissue collection at the posteromedial knee area. She has been on some antibiotics and is now scheduled to have an irrigation debridement of an abscess at the right medial knee soft tissue. The patient has multiple medical issues. She is status post quadruple bypass. She is asthmatic, lymphedema, sleep apnea, hypertension, chronic anemia, hypothyroid, fibromyalgia, gastric ulcer. She has multiple medications, 30 different medicines in the chart. She has been feeling fairly well otherwise other than the right knee pain, nausea, malaise, and fevers. PHYSICAL EXAM: Her exam shows her to have mental status which is alert and oriented. She holds her right knee flexed at about 45 degrees and externally rotated at the hip, but she is able to straight leg raise and I can range the right knee joint itself without significant pain. The exam is pertinent for approximately 15 cm long soft tissue bulging at the medial knee area, not really in the popliteal but more at the medial knee corner, which is red, erythematous and tense, suggesting a soft tissue abscess. Ultrasound was consistent with this also. No definitive communication with the knee noted. PLAN: The patient with soft tissue abscess at right medial knee soft tissue area. Plan will be an irrigation debridement in the operating room. [id number]/[facility] #: [id number] PAMELA
[2019-08-09] MEDS: Morphine INJ* 4 MG/ML 1 ML SYRINGE (NEW SYRINGE VERSION) IV PRN ×2 (16:52→21:37)
[2019-08-09] MEDS: Mometasone 220 MCG MDI INH SCH (19:52)
[2019-08-09] MEDS: Primidone 50 mg TAB (*) PO SCH (20:38)
[2019-08-09] MEDS: Pramipexole TAB* 0.5 MG PO SCH (20:38)
[2019-08-09] MEDS: Venlafaxine EXT RELEASE CAP* 37.5 MG PO SCH (20:40)
[2019-08-09] MEDS: Melatonin 3 MG TAB PO SCH (20:40)
[2019-08-09] MEDS: Docusate CAP* 100 MG PO SCH (20:40)
[2019-08-09] MEDS: Fluticasone NASAL SPRAY 50MCG* 16 gm SPRAY BTL BOTH NARES SCH (20:41)
[2019-08-09] MEDS ORDERED: Vancomycin(*) 500 MG in NS 0.9% 250 ML* 250 ML IVPB ONE (22:00)
[2019-08-10] MEDS: Morphine INJ* 4 MG/ML 1 ML SYRINGE (NEW SYRINGE VERSION) IV PRN ×2 (02:00→17:08)
--- NOTE | 2019-08-10 03:38 | OP ---
DATE OF OPERATION: 08/09/19 - ROOM #412 DATE OF : 38 ATTENDING SURGEON: Dr. Bryson Umana. ASSISTED BY: Mario Alegria PA-C. PRE-OP DIAGNOSIS: Soft tissue abscess, right medial knee. POST-OP DIAGNOSIS: Soft tissue fluid collection with surrounding cyst, right medial knee. OPERATIVE PROCEDURE: DESCRIPTION OF PROCEDURE: We incised longitudinally along the medial knee area approximately 15-cm longitudinal incision. It was carried down to a greyish cystic structure, which was opened in its mid third to obtain clear watery fluid. This was sent for culture and sensitivity. The mass itself appeared to be 10 to 12 cm in length, 7 to 8 cm in diameter and was lined with a cystic- appearing structure. There was no tracking deep to the joint. Using electrocautery and careful dissection, I removed the cystic lining from the mass with the tourniquet being dropped and local hemostasis obtained. Three liter pulsatile lavage was performed and then a closure with a Dandre-Lopez drain using #1 Monocryl sutures deep to obliterate the soft tissue defect, some 2-0 Monocryl at the subcutaneous level and then nikunj for the skin. A compression dressing was applied. [id number]/[facility] #: [id number] [facility]
[2019-08-10] MEDS: Levothyroxine TAB* 175 MCG TAB PO SCH (05:41)
[2019-08-10] MEDS: Heparin VIAL(*) 5000 UNITS/ML VIAL (FIVE THOUSAND) SUBCUT SCH ×3 (05:41→22:30)
[2019-08-10] MEDS ORDERED: Vancomycin Random Level* NOTE FOLLOW UP ONE (06:00)
[2019-08-10 06:33] LABS: ABS Lymphocytes 1.1 10^3/ul (1.0-4.8); ABS Monocytes 0.6 10^3/ul (0-0.8); ABS Neutrophils 6.3 10^3/ul (1.5-7.7); Eosinophil % 0.1 %; Hematocrit 27 % (35-47); Hemoglobin 9.2 g/dL (12.0-16.0); Lymphocyte % 14.1 %; Mean Corpuscular HGB Conc 35 g/dL (31-36); Mean Corpuscular Hemoglobin 34 pg (27-31); Mean Corpuscular Volume 98 fL (80-97); Mean Platelet Volume 7.9 fL (7.4-10.4); Platelet Count 172 10^3/uL (150-450); Red Blood Count 2.73 10^6 /uL (3.70-4.87); Red Cell Distribution Width 13 % (10-15); White Blood Count 8.1 10^3/uL (3.5-10.8)
[2019-08-10 06:44] LABS: BUN/Creatinine Ratio 24.8 (8-20); C Reactive Protein 240.74 mg/L (<8.01); Calcium 8.8 mg/dL (8.6-10.3); EGFR African American 24.7 (>60); EGFR Non-African American 20.5 (>60)
[2019-08-10 07:28] LABS: Vancomycin Random 15.5 mcg/mL
[2019-08-10] MEDS: DOXYcycline IV* 100 MG in NS 0.9% 250 ML* 250 ML IVPB SCH ×2 (08:24→20:05)
[2019-08-10] MEDS: Amiodarone TAB* 200 MG PO SCH (08:25)
[2019-08-10] MEDS: amLODIPine TAB* 5 MG PO SCH (08:38)
[2019-08-10] MEDS: Cholecalciferol TAB* 1000 UNITS PO SCH (08:38)
[2019-08-10] MEDS: Senna TAB 8.6 mg* TAB PO SCH ×2 (08:39→20:05)
[2019-08-10] MEDS: Montelukast Sodium TAB* 10 MG PO SCH (08:39)
[2019-08-10] MEDS: Cetirizine* 10 MG TAB PO SCH (08:39)
[2019-08-10] MEDS: Pantoprazole TAB * 40 MG TAB PO SCH ×2 (08:39→20:08)
[2019-08-10] MEDS: Docusate CAP* 100 MG PO SCH ×2 (08:40→20:08)
[2019-08-10] MEDS: Multivitamins/Minerals TAB PO SCH (08:40)
[2019-08-10] MEDS: Ezetimibe TAB* 10 MG PO SCH (08:40)
[2019-08-10] MEDS: Clopidogrel TAB* 75 MG PO SCH (08:40)
[2019-08-10] MEDS: Hydrocodone/Acetamin 10/325 MG 1 TAB PO PRN ×3 (08:46→18:40)
[2019-08-10] MEDS ORDERED: Vancomycin(*) 500 MG in NS 0.9% 250 ML* 250 ML IVPB SCH (09:00)
[2019-08-10] MEDS: Cefepime 1 GM in Dextrose(*) 1 GM/50 ML BAG IV SCH ×3 (09:42→22:30)
[2019-08-10] MEDS: Metoprolol Succinate XL TAB* 25 MG PO SCH ×2 (10:52→21:49)
--- NOTE | 2019-08-10 11:04 | PN ---
Progress Note - Progress Note Date of Service: 08/10/19 SOAP: Subjective: []Pt seen and examined at bedside. She feels well without fever or chills. Surgical site is not painful. Denies CP, SOB, dizziness, nausea. Objective: []Gen: NAD, nontoxic appearing RLE: Right medial knee incision CDI, minimal erythema much reduced from yesterday. Drain with 20 cc serosanguinous drainage. Drain was pulled with tip intact, tolerated well by the patient. Tolerating active f/e at the hip, knee and ankle without pain. Calves supple and nontender Assessment: [] POD 1 s/p excision of Soft tissue fluid collection with surrounding cyst, right medial knee. Plan: []WBAT PT/OT Cont abx per ID, vanco and doxy. No growth to date, continue to follow cultures Vital Signs Temp 97.3 F 08/10/19 12:04 Pulse 69 08/10/19 12:04 Resp 19 08/10/19 12:04 BP 141/73 08/10/19 12:04 Pulse Ox 93 08/10/19 12:04 Intake & Output 08/09/19 08/10/19 08/10/19 18:59 06:59 18:59 Intake Total 2500 510 240 Output Total 300 60 Balance 2200 450 240 Weight 243 lb 9.6 oz Intake: IV Fluids 2150 310 Cefepime 50 50 Doxy 250 250 LR 850 NS 1000 10 Oral 350 200 240 Output: BEREKET #1 60 Urine 300 Other: Estimated Void Medium # Bowel Movements 1 0 Estimated Stool Amount Medium # Voids 2 0 Laboratory Last Values WBC 8.1 10^3/uL (3.5-10.8) 08/10/19 06:21 RBC 2.73 10^6 /uL (3.70-4.87) L 08/10/19 06:21 Hgb 9.2 g/dL (12.0-16.0) L 08/10/19 06:21 Hct 27 % (35-47) L 08/10/19 06:21 MCV 98 fL (80-97) H 08/10/19 06:21 MCH 34 pg (27-31) H 08/10/19 06:21 MCHC 35 g/dL (31-36) 08/10/19 06:21 RDW 13 % (10-15) 08/10/19 06:21 Plt Count 172 10^3/uL (150-450) 08/10/19 06:21 MPV 7.9 fL (7.4-10.4) 08/10/19 06:21 Neut % (Auto) 78.1 % 08/10/19 06:21 Lymph % (Auto) 14.1 % 08/10/19 06:21 [place] % (Auto) 7.5 % 08/10/19 06:21 Eos % (Auto) 0.1 % 08/10/19 06:21 Baso % (Auto) 0.2 % 08/10/19 06:21 Absolute Neuts (auto) 6.3 10^3/ul (1.5-7.7) 08/10/19 06:21 Absolute Lymphs (auto) 1.1 10^3/ul (1.0-4.8) 08/10/19 06:21 Absolute Monos (auto) 0.6 10^3/ul (0-0.8) 08/10/19 06:21 Absolute Eos (auto) 0.0 10^3/ul (0-0.6) 08/10/19 06:21 Absolute Basos (auto) 0.0 10^3/ul (0-0.2) 08/10/19 06:21 Absolute Nucleated RBC 0.0 10^3/ul 08/10/19 06:21 Nucleated RBC % 0.0 08/10/19 06:21 ESR 72 mm/Hr (0-29) H 08/08/19 18:20 Sodium 136 mmol/L (135-145) 08/10/19 06:21 Potassium 5.0 mmol/L (3.5-5.0) 08/10/19 06:21 Chloride 105 mmol/L (101-111) 08/10/19 06:21 Carbon Dioxide 23 mmol/L (22-32) 08/10/19 06:21 Anion Gap 8 mmol/L (2-11) 08/10/19 06:21 BUN 57 mg/dL (6-24) H 08/10/19 06:21 Creatinine 2.30 mg/dL (0.51-0.95) H 08/10/19 06:21 Est GFR ( Amer) 24.7 (>60) 08/10/19 06:21 Est GFR (Non-Af Amer) 20.5 (>60) 08/10/19 06:21 BUN/Creatinine Ratio 24.8 (8-20) H 08/10/19 06:21 Glucose 129 mg/dL (70-100) H 08/10/19 06:21 Lactic Acid 0.5 mmol/L (0.5-2.0) 08/09/19 08:31 Calcium 8.8 mg/dL (8.6-10.3) 08/10/19 06:21 C-Reactive Protein 240.74 mg/L (<8.01) H 08/10/19 06:21 Urine Color Yellow 08/08/19 19:00 Urine Appearance Clear 08/08/19 19: Urine pH 5.0 (5-9) 08/08/19 19: Ur Specific [place] 1.014 (1.010-1.030) 08/08/19 19:00 Urine Protein 1+(30 mg/dl) (Negative) A 08/08/19 19:00 Urine Ketones Negative (Negative) 08/08/19 19:00 Urine Blood Negative (Negative) 08/08/19 19:00 Urine Nitrate Negative (Negative) 08/08/19 19:00 Urine Bilirubin Negative (Negative) 08/08/19 19:00 Urine Urobilinogen Negative (Negative) 08/08/19 19: Ur Leukocyte Esterase Negative (Negative) 08/08/19 19:00 Urine WBC (Auto) Trace(0-5/hpf) (Absent) 08/08/19 19:00 Urine RBC (Auto) 1+(3-5/hpf) (Absent) A 08/08/19 19:00 Ur Squamous Epith Cells Present (Absent) A 08/08/19 19:00 Urine Bacteria Absent (Absent) 08/08/19 19:00 Hyaline Casts Present (Absent) A 08/08/19 19: Urine Glucose Negative (Negative) 08/08/19 19: Urine Ascorbic Acid * (Negative) A 08/08/19 19:00 Random Vancomycin 15.5 mcg/mL 08/10/19 06:21 Influenza A (Rapid) Negative (Negative) 08/08/19 18:23 Influenza B (Rapid) Negative (Negative) 08/08/19 18:23
[2019-08-10] MEDS: Vancomycin(*) 500 MG in NS 0.9% 250 ML* 250 ML IVPB SCH (11:52)
--- NOTE | 2019-08-10 13:19 | CONS ---
CONSULTATION REPORT: DATE OF CONSULT: 08/10/19 PRIMARY CARE PROVIDER: Dr. Manas Villeda. PROVIDER REQUESTING CONSULTATION: Dr. Capri Diaz. CONSULTING SERVICE: Infectious Disease. PROVIDER: Shabana Benson NP ATTENDING PROVIDER: Dr. Chaitanya Salcedo* (DICTATED BY SHABANA BENSON NP). REASON FOR CONSULT: Right knee soft tissue infection. IMPRESSION: 1. Right lower extremity soft tissue infection. The patient presented with cellulitis in addition to what appears to be an infected cyst versus abscess. She is status post incision and drainage and excision of soft tissue on postop day #1. Blood cultures with no growth. CT scan on admission with nonspecific fluid collection on the medial subcutaneous tissue plane corresponding with ultrasound consistent with a hematoma. Preliminary cultures with 2+ neutrophils , 1+ epithelial cells and no organisms seen. Anaerobic culture with no growth on day 1. She has been afebrile since after her admission. Her initial leukocytosis has resolved. Her inflammatory markers continued to be elevated. The patient has been receiving cefepime, doxycycline and vancomycin. 2. Chronic kidney disease, stage 3. 3. Lower extremity lymphedema. RECOMMENDATIONS/PLAN: Discontinue Doxycycline. Continue cefepime and Vancomycin for now. We will continue to follow along, final recommendations will be based on the patient's clinical course and culture results. HISTORY OF PRESENT ILLNESS: Ms. Martin is a 78-year-old female with past medical history significant for asthma, lymphedema, obstructive sleep apnea, restless legs syndrome, hypertension, chronic anemia, mild proliferative disorder, paroxysmal atrial fibrillation, heart failure, essential tremor, fibromyalgia, GERD, hypothyroidism, headaches, coronary artery disease, chronic kidney disease, esophageal spasm, gastric ulcers and angina, who states that she had been in her usual state of health up until week last week when she had noticed that she was not feeling quite right with some vague discomfort in the right leg. She did not evaluate the skin in that area until Friday last week, she had noticed some itching, decided to look at the skin and had noticed that she had swelling on the inside of her right knee with warmth and redness. The patient presented to the emergency room on 08/08/19 with complaints of chills, nausea, vomiting, diarrhea and cough. She had previously presented to the emergency room on 08/06/19 with complaints of right knee pain. She had a Doppler ruling out a DVT and was told she had an infected Moul[place]'s cyst and was sent home on Bactrim. Again, she returned to the emergency room on 08/08/19 with worsening redness and diarrhea with associated nausea, vomiting and increased pain. While in the emergency room, she had labs showing mild leukocytosis, elevated ESR and CRP. She had a fairly unremarkable urinalysis. She was influenza A and B negative. She was noted to be febrile in the emergency room with a temperature of 101 degrees Fahrenheit. She had blood cultures drawn. She had chest x-ray with no acute cardiopulmonary disease. She was referred to the hospitalist for admission. While in the hospital, she is remained afebrile. She feels as though the redness and swelling in her right knee is improving, status post incision and drainage with excision of cyst to the medial aspect of the right leg. She has been on cefepime, doxycycline, vancomycin. She has been afebrile since being admitted. Her leukocytosis has resolved. Her CRP continues to elevate, this can be secondary to inflammatory reaction to surgery yesterday. Blood cultures have been no growth. Urine culture with no growth. Gram stain from the wound culture is pending. The patient feels that the pain is controlled, she is feeling well. Denies fever. Reports intermittent chills over the past week. She denies nausea, vomiting. She reports having diarrhea for a week and a half , but this is improving. Denies any recent travel. She reports urinary frequency with incontinence prior to her admission, but states that this has been improving since yesterday. Additionally, she reports prior to her admission having GI upset and taking Gaviscon with some abdominal discomfort and this was improving. Additionally, she reports intermittent "regurgitation of sour water" for a few days last week. She denies any back pain. The pain in her right leg is controlled. PAST MEDICAL HISTORY: 1. Asthma. 2. Lymphedema. 3. Obstructive sleep apnea. 4. Restless legs syndrome. 5. Hypertension. 6. Chronic anemia. 7. Myeloproliferative disorder. 8. Paroxysmal atrial fibrillation. 9. Heart failure with preserved EF. 10. Essential tremor. 11. Fibromyalgia. 12. GERD. 13. Hypothyroidism. 14. Headache. 15. STEMI. 16. Chronic kidney disease stage 3. 17. Esophageal spasms. 18. Gastric ulcer. 19. Angina. PAST SURGICAL HISTORY: 1. Status post coronary artery bypass graft x3 vessels. 2. Status post left knee arthroscopy. 3. Status post right knee arthroscopy x3. 4. Status post cholecystectomy. 5. Status post appendectomy. 6. Status post umbilical hernia repair. 7. Status post bilateral total hip arthroplasties. 8. Status post bilateral cataract extractions. 9. Status post 5 back surgeries with hardware in place. 10. Status post breast reduction. MEDICATIONS: Home medications: 1. Amiodarone 100 mg by mouth daily. 2. Albuterol HFA inhaler 2 puffs inhalation every 6 hours as needed for shortness of breath or wheeze. 3. Albuterol 2.5 mg/3 mL 1 nebulizer 4 times daily as needed for shortness of breath or wheeze. 4. Torsemide 20 mg by mouth daily. 5. Flovent HFA inhaler 110 mcg 1 puff inhalation twice daily. 6. Zetia 10 mg by mouth daily. 7. Plavix 75 mg by mouth daily. 8. Vitamin D 2000 units by mouth daily. 9. Calcium and magnesium 1 tablet by mouth daily. 10. [place] 10/325 two tablets by mouth every 4 hours as needed for pain. 11. Flonase nasal spray 50 mcg 1 spray to both nares at bedtime. 12. Xyzal 5 mg by mouth daily. 13. Primidone 150 mg by mouth at bedtime. 14. Mirapex 2 mg by mouth at bedtime. 15. Omeprazole 20 mg by mouth twice daily. 16. Multivitamin and folic acid 400 mcg by mouth daily. 17. Singulair 10 mg by mouth daily. 18. Metoprolol succinate 25 mg by mouth twice daily. 19. Melatonin 10 mg by mouth at bedtime. 20. Levothyroxine 175 mcg by mouth daily. 21. Bactrim 800/160 one tablet by mouth twice daily. 22. [place] 1000 mg by mouth twice daily. 23. Senna-S 2 tablets by mouth twice daily. 24. Amlodipine 10 mg by mouth daily. 25. Vitamin B complex 1 tablet by mouth daily. 26. Effexor 37.5 mg by mouth at bedtime. Hospital medications: 1. DuoNeb 2.5/0.5 one neb inhalation every 4 hours while awake as needed for shortness of breath or wheeze. 2. Amiodarone 100 mg by mouth daily. 3. Norvasc 10 mg by mouth daily. 4. Cefepime 1 g IV every 12 hours. 5. Zyrtec 10 mg by mouth daily. 6. Vitamin D 2000 units by mouth daily. 7. Plavix 75 mg by mouth daily. 8. Colace 100 mg by mouth twice daily. 9. Doxycycline 100 mg IV every 12 hours. 10. Zetia 10 mg by mouth daily. 11. Flonase nasal spray 50 mcg 1 spray to both nares at bedtime. 12. Heparin 5000 units subcutaneous every 8 hours. 13. [place] 10/325 two tablets by mouth every 4 hours as needed. 14. Lactated Ringer's 125 mL an hour intravenously. 15. Levothyroxine 175 mcg by mouth daily. 16. Melatonin 9 mg by mouth at bedtime. 17. Metoprolol succinate 25 mg by mouth twice daily. 18. Asmanex 220 mcg MDI 1 puff inhalation at bedtime. 19. Singulair 10 mg by mouth daily. 20. Morphine sulfate 4 mg IV every 4 hours as needed for pain. 21. Multivitamin 1 tablet by mouth daily. 22. Zofran 4 mg IV every 4 hours as needed for nausea. 23. Protonix 40 mg by mouth twice daily. 24. Mirapex 2 mg by mouth at bedtime. 25. Primidone 150 mg by mouth every morning. 26. Senna 1 tablet by mouth every 12 hours. 27. Vancomycin 500 mg IV every 12 hours. 28. Effexor 37.5 mg by mouth at bedtime. ALLERGIES: ATORVASTATIN; IMIPRAMINE; IV CONTRAST; CYTOTEC; NAPROXEN; NITROFURANTOIN, unknown reaction; THEOPHYLLINE; GABITRIL; TIZANIDINE; FENTANYL; STATIN. FAMILY HISTORY: Mother and father with a history of heart disease. Oldest brother passed from heart disease. Another brother with a history of CVA and [place]. Another brother passed and 2 other brothers passed from MIs. Brother with a history of diabetes. Son with a history of throat, tongue, bone and liver cancer. SOCIAL HISTORY: She rarely drinks alcohol. Denies tobacco or recreational drug use. REVIEW OF SYSTEMS: I performed a 10-point review of systems. All the pertinent positives and negatives are mentioned in the history of present illness. The remaining review of systems are negative. PHYSICAL EXAM: Vital Signs: Temperature 97.1, heart rate 111, respiratory rate 17, O2 sat 94% on room air, blood pressure 103/56. General Appearance: The patient is alert, appears to be in no acute distress. Head: Normocephalic , atraumatic. EENT: Extraocular movements are intact. No subconjunctival hemorrhage. Moist mucous membranes. Neck: Supple. No lymphadenopathy. Neurologic: Alert and oriented. Cranial nerves II through XII are grossly intact. Moves all extremities. Cardiovascular: Regular rate and rhythm. S1 and S2 present. No murmurs, rubs, or gallops heard. Respiratory: No accessory muscle use. The lungs are clear to auscultation. Abdomen is soft, nontender, obese. Bowel sounds present. Extremities: No lower extremity edema. Musculoskeletal: No clubbing or cyanosis noted. She moves all extremities. She is able to move the right knee, but has some difficulty due to the bulky dressing in place. She has negative log roll to bilateral hips. No tenderness with palpation of bilateral hips. Psychological: Calm and cooperative. Skin: No rashes or abnormalities seen. She has a large postop dressing to the left leg with a BEREKET drain, draining serous drainage. DIAGNOSTIC STUDIES/LAB DATA: Sodium 136, potassium 5.0, chloride 105, CO2 of 23 , BUN 51, creatinine 2.30, glucose 129. White blood cell count 8.1, hemoglobin 9.2, hematocrit 27, platelet count 172. CRP 240.74. Influenza A and B negative on admission. Blood cultures with no growth to date. Please see impression and recommendations outlined above. Recommendations have been discussed with PHYLLIS Beltran. Thank you for asking us to see Ms. Martin in consultation. The case has been reviewed with my attending, Dr. Chaitanya Salcedo, who agrees with the plan of care. Reviewed by SHABANA BENSON, MOISES 08/12/19 1242 [id number]/[facility] #: [id number] PAMELA
--- NOTE | 2019-08-10 13:42 | PN ---
Subjective Date of Service: 08/10/19 Interval History: HOSPITALIST PROGRESS NOTE Patient seen and examined at bedside. Care reviewed and d/w Lina Corey RN. She feels improved today. Her knee still hurts, but less than prior to surgery. Family History: Unchanged from Admission Social History: Unchanged from Admission Past Medical History: Unchanged from Admission Objective Active Medications: Hydrocodone Bitart/Acetaminophen ([place] 10/325 (Nf)) 2 tab PO Q4H PRN PRN Reason: PAIN Last Admin: 08/10/19 08:46 Dose: 2 tab Albuterol/Ipratropium (Duoneb (Albuterol 2.5 Mg/Ipratropium 0.5 Mg)) 1 neb INH [id number] AWAKE PRN PRN Reason: sob/wheexing Amiodarone HCl (Cordarone Tab*) 100 mg PO DAILY [facility] Last Admin: 08/10/19 08:25 Dose: 100 mg Amlodipine Besylate (Norvasc Tab*) 10 mg PO DAILY [facility] Last Admin: 08/10/19 08:38 Dose: 10 mg Cetirizine HCl (Zyrtec*) 10 mg PO DAILY [facility] Last Admin: 08/10/19 08:39 Dose: 10 mg Cholecalciferol (Vitamin D Tab*) 2,000 units PO DAILY [facility] Last Admin: 08/10/19 08:38 Dose: 2,000 units Clopidogrel Bisulfate (Plavix Tab*) 75 mg PO DAILY [facility] Last Admin: 08/10/19 08:40 Dose: 75 mg Docusate Sodium (Colace Cap*) 100 mg PO BID [facility] Last Admin: 08/10/19 08:40 Dose: 100 mg Ezetimibe (Zetia Tab*) 10 mg PO DAILY [facility] Last Admin: 08/10/19 08:40 Dose: 10 mg Fluticasone Propionate (Flonase Nasal [place] 50mcg*) 1 spray BOTH NARES BEDTIME [facility] Last Admin: 08/09/19 20:41 Dose: 1 spray Heparin Sodium (Porcine) (Heparin Vial(*)) 5,000 units SUBCUT Q8HR [facility] Last Admin: 08/10/19 05:41 Dose: 5,000 units Doxycycline Hyclate 100 mg/ (Sodium Chloride) 250 mls @ 250 mls/hr IVPB Q12H [facility] Last Admin: 08/10/19 08:24 Dose: 250 mls/hr Lactated Ringer's (Lactated Ringers 1000 Ml Bag*) 1,000 mls @ 125 mls/hr IV PER RATE [facility] Vancomycin HCl 500 mg/ Sodium (Chloride) 250 mls @ 166.667 mls/hr IVPB 1100, 2300 [facility] Last Admin: 08/10/19 11:52 Dose: 166.667 mls/hr Cefepime HCl (Maxipime 1 Gm In Dextrose Duplex (*)) 1 gm in 50 mls @ 100 mls/ hr IV 1000,2200 [facility] Last Admin: 08/10/19 10:25 Dose: 100 mls/hr Levothyroxine Sodium (Synthroid Tab*) 175 mcg PO DAILY@0600 [facility] Last Admin: 08/10/19 05:41 Dose: 175 mcg Melatonin (Melatonin) 9 mg PO BEDTIME [facility] Last Admin: 08/09/19 20:40 Dose: 9 mg Metoprolol Succinate (Toprol Xl Tab*) 25 mg PO BID [facility] Last Admin: 08/10/19 10:52 Dose: 25 mg Mometasone Furoate (Asmanex 220 Mcg Mdi *) 1 puff INH QPM [facility] Last Admin: 08/09/19 19:52 Dose: 1 puff Montelukast Sodium (Singulair Tab*) 10 mg PO DAILY [facility] Last Admin: 08/10/19 08:39 Dose: 10 mg Morphine Sulfate (Morphine Inj (Syringe)*) 4 mg IV Q4H PRN PRN Reason: PAIN - SEVERE Last Admin: 08/10/19 02:00 Dose: 4 mg Multivitamins/Minerals (Theragran/Minerals Tab*) 1 tab PO DAILY [facility] Last Admin: 08/10/19 08:40 Dose: 1 tab Ondansetron HCl (Zofran Inj*) 4 mg IV Q4H PRN PRN Reason: NAUSEA/VOMITING Last Admin: 08/09/19 09:57 Dose: 4 mg Pantoprazole Sodium (Protonix Tab*) 40 mg PO BID [facility] Last Admin: 08/10/19 08:39 Dose: 40 mg Pharmacy Consult (Vancomycin Per Pharmacy*) 1 note FOLLOW UP .VANC PER PHARMACY [facility]; Protocol Pharmacy Profile Note (Vancomycin Trough Check) 1 note FOLLOW UP ONCE ONE Stop: 08/12/19 10:31 Pramipexole Dihydrochloride (Mirapex Tab*) 2 mg PO BEDTIME [facility] Last Admin: 08/09/19 20:38 Dose: 2 mg Primidone (Mysoline 250 Mg Tab (*)) 150 mg PO BEDTIME [facility] Last Admin: 08/09/19 20:38 Dose: 150 mg Senna (Senokot 8.6 Mg Tab*) 1 tab PO Q12HR [facility] Last Admin: 08/10/19 08:39 Dose: 1 tab Venlafaxine HCl (Effexor Xr Cap*) 37.5 mg PO BEDTIME [facility] Last Admin: 08/09/19 20:40 Dose: 37.5 mg Vital Signs - 8 hr 08/10/19 08/10/19 08/10/19 05:49 07:15 08:00 Temperature 97.1 F Pulse Rate 111 Respiratory 17 17 Rate Blood Pressure 103/56 (mmHg) O2 Sat by Pulse 97 94 94 Oximetry 08/10/19 08/10/19 08/10/19 08:46 10:20 12:04 Temperature 97.3 F Pulse Rate 69 Respiratory 17 17 19 Rate Blood Pressure 141/73 (mmHg) O2 Sat by Pulse 93 Oximetry Oxygen Devices in Use Now: None Appearance: Pleasant morbid obese lady lying in bed in NAD Eyes: No Scleral Icterus Ears/Nose/Mouth/Throat: Mucous Membranes Moist Neck: Trachea Midline Respiratory: Symmetrical Chest Expansion and Respiratory Effort, Clear to Auscultation Cardiovascular: RRR - Normal S1 and S2 Abdominal: NL Sounds; No Tenderness; No Distention - Morbid obese Extremities: - - CDI to Right knee with BEREKET drain in place with serosanguineous output Neurological: Alert and Oriented x 3, NL Muscle Strength and Tone Result Diagrams: 08/10/19 06:21 08/10/19 06:21 Microbiology and Other Data: Microbiology 08/08/19 19:00 Legionella Urinary Antigen - Final Urine Negative Legionella Antigen Streptococcus pneumoniae Ag Screen - Final Negative S. pneumo Antigen Assess/Plan/Problems-Billing Assessment: Mrs Martin is a 78yo F with PMH of morbid obesity with BMI 47.6, CAD s/p multivessel CABG 08/24/18 at [facility] with MAZE procedure, Afib not on AC due to GI bleed, hypothyroidism, CKD stage 3, VALENTIN, myeloproliferative disorder, who presented to ED with c/o chills and right knee pain, found to have right knee popliteal cyst with possible infection. - Patient Problems (1) Abscess of knee, right Comment: - S/p I&D by Ortho on 08/09/2019 with drainage of clear fluid, no growth on culture so far. - Continue Vancomycin and Cefepime. - Awaiting ID consult. (2) Pneumonia Comment: - Concern for possible left lower lobe infiltrate on admission, but no clear infiltrate on CxR. - Suspect her symptoms are associated with her knee soft tissue infection. - Continue antibiotics and follow cultures. (3) CAD (coronary artery disease) Comment: - Stable. - No c/o chest pain or need for nitro since CABG. - EKG shows no acute ischemic changes. - Continue Plavix, metoprolol, amlodipine, Zetia. She's intolerant of statins and cannot afford PCSK9 agents. (4) GIDEON (acute kidney injury) Comment: - Creatinine up to 2.49 from baseline 1.4, likely secondary to Bactrim use. - Will monitor closely in the setting of Vancomycin use. - Creatinine 2.3. (5) Paroxysmal atrial fibrillation Comment: - S/p MAZE procedure. - Continue Amiodarone and Metoprolol. - EKG shows NSR. - Not on anticoagulation due to h/o GI bleed. (6) DVT prophylaxis Comment: - Heparin SQ (7) Full code status Status and Disposition: Inpatient.
--- NOTE | 2019-08-10 18:09 | PN ---
PROGRESS NOTE: DATE OF SERVICE: 08/10/19 INTERVAL HISTORY: Roxi is resting comfortably in her bed on the 4th floor. She is 1 day out from extensive soft tissue mass excision. The intraoperative findings were a fluid-filled clear fluid so ft tissue mass suggesting seroma or large ganglion cyst. The lining of the cyst was excised, which d id compromise slightly the posterior flap, which we will have to look carefully to see if there is an y evidence of any necrosis in the flap. She did have closure over a Gio drain, which will be rem johanna tomorrow. We would like to examine the wound in a day or two as well. We are holding her knee in extension in the meantime to facilitate healing. She could be weightbearing as tolerated. Cultur es negative so far from the fluid. [id number]/[facility] #: [id number]
[2019-08-10] MEDS: Mometasone 220 MCG MDI INH SCH (19:47)
[2019-08-10] MEDS: Primidone 50 mg TAB (*) PO SCH (20:05)
[2019-08-10] MEDS: Venlafaxine EXT RELEASE CAP* 37.5 MG PO SCH (20:06)
[2019-08-10] MEDS: Pramipexole TAB* 0.5 MG PO SCH (20:07)
[2019-08-10] MEDS: Melatonin 3 MG TAB PO SCH (20:07)
[2019-08-10] MEDS: Fluticasone NASAL SPRAY 50MCG* 16 gm SPRAY BTL BOTH NARES SCH (20:08)
[2019-08-11] MEDS: Vancomycin(*) 500 MG in NS 0.9% 250 ML* 250 ML IVPB SCH (00:22)
[2019-08-11] MEDS: Hydrocodone/Acetamin 10/325 MG 1 TAB PO PRN ×3 (04:24→22:15)
[2019-08-11] MEDS: Heparin VIAL(*) 5000 UNITS/ML VIAL (FIVE THOUSAND) SUBCUT SCH ×3 (04:25→22:17)
[2019-08-11] MEDS: Levothyroxine TAB* 175 MCG TAB PO SCH (04:25)
[2019-08-11 07:32] LABS: ABS Eosinophils 0.4 10^3/ul (0-0.6); ABS Lymphocytes 1.8 10^3/ul (1.0-4.8); ABS Monocytes 0.6 10^3/ul (0-0.8); ABS Neutrophils 3.4 10^3/ul (1.5-7.7); Eosinophil % 6.5 %; Hematocrit 24 % (35-47); Hemoglobin 8.2 g/dL (12.0-16.0); Lymphocyte % 29.3 %; Mean Corpuscular HGB Conc 34 g/dL (31-36); Mean Corpuscular Hemoglobin 34 pg (27-31); Mean Corpuscular Volume 97 fL (80-97); Mean Platelet Volume 8.1 fL (7.4-10.4); Platelet Count 172 10^3/uL (150-450); Red Blood Count 2.45 10^6 /uL (3.70-4.87); Red Cell Distribution Width 13 % (10-15); White Blood Count 6.2 10^3/uL (3.5-10.8)
[2019-08-11 07:51] LABS: BUN/Creatinine Ratio 27.4 (8-20); C Reactive Protein 140.82 mg/L (<8.01); Calcium 8.4 mg/dL (8.6-10.3); EGFR African American 26.8 (>60); EGFR Non-African American 22.1 (>60); Potassium 4.4 mmol/L (3.5-5.0)
[2019-08-11] MEDS: DOXYcycline IV* 100 MG in NS 0.9% 250 ML* 250 ML IVPB SCH ×2 (08:20→20:32)
[2019-08-11] MEDS: amLODIPine TAB* 5 MG PO SCH (08:31)
[2019-08-11] MEDS: Montelukast Sodium TAB* 10 MG PO SCH (08:31)
[2019-08-11] MEDS: Cholecalciferol TAB* 1000 UNITS PO SCH (08:31)
[2019-08-11] MEDS: Pantoprazole TAB * 40 MG TAB PO SCH ×2 (08:31→22:17)
[2019-08-11] MEDS: Metoprolol Succinate XL TAB* 25 MG PO SCH ×2 (08:31→22:15)
[2019-08-11] MEDS: Ezetimibe TAB* 10 MG PO SCH (08:31)
[2019-08-11] MEDS: Clopidogrel TAB* 75 MG PO SCH (08:32)
[2019-08-11] MEDS: Multivitamins/Minerals TAB PO SCH (08:32)
[2019-08-11] MEDS: Senna TAB 8.6 mg* TAB PO SCH ×2 (08:32→22:15)
[2019-08-11] MEDS: Amiodarone TAB* 200 MG PO SCH (08:32)
[2019-08-11] MEDS: Cetirizine* 10 MG TAB PO SCH (08:32)
[2019-08-11] MEDS: Docusate CAP* 100 MG PO SCH ×2 (09:57→22:15)
[2019-08-11] MEDS: Cefepime 1 GM in Dextrose(*) 1 GM/50 ML BAG IV SCH (09:57)
--- NOTE | 2019-08-11 10:55 | PN ---
Progress Note - Progress Note Date of Service: 08/11/19 SOAP: Subjective: CC: knee pain HPI: 78 year old woman with swelling and erythema adjacent to knee, s/p I&D, found to have cyst which did not track to knee joint or appear to be infected. She has no fever, rash, or diarrhea. Appetite is good. Some right knee pain. Objective: Vital Signs Temp 36.4 C 08/11/19 07:15 Pulse 58 08/11/19 07:15 Resp 18 08/11/19 08:31 BP 138/69 08/11/19 07:15 Pulse Ox 96 08/11/19 08:00 Intake & Output 08/10/19 08/11/19 08/11/19 18:59 06:59 18:59 Intake Total 970 3181 Balance 970 3181 Weight 250 lb 1.6 oz Intake: IV Fluids 300 135 Cefepime 50 65 Doxy 250 NS 70 IVPB 250 2566 Cefepime 2000 Doxy 266 vanco 250 300 Oral 420 480 Other: Estimated Void Medium Small # Voids 1 1 Gen:awake, no distress HEENT: no thrush Heart:Regular no murmur Lungs:Clear to auscultation Abd:+BS NTND soft Skin: no rash MSK: right knee wrapped Laboratory Results - last 24 hr 08/11/19 08/11/19 07:04 07:04 WBC 6.2 RBC 2.45 L Hgb 8.2 L Hct 24 L MCV 97 MCH 34 H MCHC 34 RDW 13 Plt Count 172 MPV 8.1 Neut % (Auto) 54.8 Lymph % (Auto) 29.3 [place] % (Auto) 9.0 Eos % (Auto) 6.5 Baso % (Auto) 0.4 Absolute Neuts (auto) 3.4 Absolute Lymphs (auto) 1.8 Absolute Monos (auto) 0.6 Absolute Eos (auto) 0.4 Absolute Basos (auto) 0.0 Absolute Nucleated RBC 0.0 Nucleated RBC % 0.0 Sodium 137 Potassium 4.4 Chloride 106 Carbon Dioxide 24 Anion Gap 7 BUN 59 H Creatinine 2.15 H Est GFR ( Amer) 26.8 Est GFR (Non-Af Amer) 22.1 BUN/Creatinine Ratio 27.4 H Glucose 104 H Calcium 8.4 L C-Reactive Protein 140.82 H Assessment: 1. soft tissue cyst with inflammatory response, no ongoing evidence of infection 2. morbid obesity 3. CKD, stage 3 4. lymphedema lower extremities Plan: 1. DC vancomycin and cefepime, continue doxycycline Discussed with Dr Diaz
--- NOTE | 2019-08-11 12:09 | PN ---
Subjective Date of Service: 08/11/19 Interval History: HOSPITALIST PROGRESS NOTE Patient seen and examined at bedside. Care reviewed and d/w Lina Corey RN. She is sound asleep. Arousable to voice, but very tired. Pain is controlled. Family History: Unchanged from Admission Social History: Unchanged from Admission Past Medical History: Unchanged from Admission Objective Active Medications: Hydrocodone Bitart/Acetaminophen ([place] 10/325 (Nf)) 2 tab PO Q4H PRN PRN Reason: PAIN Last Admin: 08/11/19 08:31 Dose: 2 tab Albuterol/Ipratropium (Duoneb (Albuterol 2.5 Mg/Ipratropium 0.5 Mg)) 1 neb INH [id number] AWAKE PRN PRN Reason: sob/wheexing Amiodarone HCl (Cordarone Tab*) 100 mg PO DAILY [facility] Last Admin: 08/11/19 08:32 Dose: 100 mg Amlodipine Besylate (Norvasc Tab*) 10 mg PO DAILY [facility] Last Admin: 08/11/19 08:31 Dose: 10 mg Cetirizine HCl (Zyrtec*) 10 mg PO DAILY [facility] Last Admin: 08/11/19 08:32 Dose: 10 mg Cholecalciferol (Vitamin D Tab*) 2,000 units PO DAILY [facility] Last Admin: 08/11/19 08:31 Dose: 2,000 units Clopidogrel Bisulfate (Plavix Tab*) 75 mg PO DAILY [facility] Last Admin: 08/11/19 08:32 Dose: 75 mg Docusate Sodium (Colace Cap*) 100 mg PO BID [facility] Last Admin: 08/11/19 09:57 Dose: 100 mg Ezetimibe (Zetia Tab*) 10 mg PO DAILY [facility] Last Admin: 08/11/19 08:31 Dose: 10 mg Fluticasone Propionate (Flonase Nasal [place] 50mcg*) 1 spray BOTH NARES BEDTIME [facility] Last Admin: 08/10/19 20:08 Dose: 1 spray Heparin Sodium (Porcine) (Heparin Vial(*)) 5,000 units SUBCUT Q8HR [facility] Last Admin: 08/11/19 04:25 Dose: 5,000 units Doxycycline Hyclate 100 mg/ (Sodium Chloride) 250 mls @ 250 mls/hr IVPB Q12H [facility] Last Admin: 08/11/19 08:20 Dose: 250 mls/hr Levothyroxine Sodium (Synthroid Tab*) 175 mcg PO DAILY@0600 [facility] Last Admin: 08/11/19 04:25 Dose: 175 mcg Melatonin (Melatonin) 9 mg PO BEDTIME [facility] Last Admin: 08/10/19 20:07 Dose: 9 mg Metoprolol Succinate (Toprol Xl Tab*) 25 mg PO BID [facility] Last Admin: 08/11/19 08:31 Dose: 25 mg Mometasone Furoate (Asmanex 220 Mcg Mdi *) 1 puff INH QPM [facility] Last Admin: 08/10/19 19:47 Dose: 1 puff Montelukast Sodium (Singulair Tab*) 10 mg PO DAILY [facility] Last Admin: 08/11/19 08:31 Dose: 10 mg Morphine Sulfate (Morphine Inj (Syringe)*) 4 mg IV Q4H PRN PRN Reason: PAIN - SEVERE Last Admin: 08/10/19 17:08 Dose: 4 mg Multivitamins/Minerals (Theragran/Minerals Tab*) 1 tab PO DAILY [facility] Last Admin: 08/11/19 08:32 Dose: 1 tab Ondansetron HCl (Zofran Inj*) 4 mg IV Q4H PRN PRN Reason: NAUSEA/VOMITING Last Admin: 08/09/19 09:57 Dose: 4 mg Pantoprazole Sodium (Protonix Tab*) 40 mg PO BID [facility] Last Admin: 08/11/19 08:31 Dose: 40 mg Pramipexole Dihydrochloride (Mirapex Tab*) 2 mg PO BEDTIME [facility] Last Admin: 08/10/19 20:07 Dose: 2 mg Primidone (Mysoline 250 Mg Tab (*)) 150 mg PO BEDTIME [facility] Last Admin: 08/10/19 20:05 Dose: 150 mg Senna (Senokot 8.6 Mg Tab*) 1 tab PO Q12HR [facility] Last Admin: 08/11/19 08:32 Dose: 1 tab Venlafaxine HCl (Effexor Xr Cap*) 37.5 mg PO BEDTIME [facility] Last Admin: 08/10/19 20:06 Dose: 37.5 mg Vital Signs - 8 hr 08/11/19 08/11/19 08/11/19 04:24 06:05 07:15 Temperature 96.7 F 97.6 F Pulse Rate 57 58 Respiratory 18 20 18 Rate Blood Pressure 114/24 138/69 (mmHg) O2 Sat by Pulse 92 92 Oximetry 08/11/19 08/11/19 08/11/19 08:00 08:31 10:30 Temperature Pulse Rate Respiratory 18 18 19 Rate Blood Pressure (mmHg) O2 Sat by Pulse 96 Oximetry 08/11/19 11:15 Temperature 98.1 F Pulse Rate 61 Respiratory 18 Rate Blood Pressure 120/39 (mmHg) O2 Sat by Pulse 94 Oximetry Oxygen Devices in Use Now: None Appearance: Elderly obese lady lying in bed in NAD Eyes: No Scleral Icterus Ears/Nose/Mouth/Throat: Mucous Membranes Moist Neck: Trachea Midline Respiratory: Symmetrical Chest Expansion and Respiratory Effort, Clear to Auscultation Cardiovascular: RRR - Normal S1 and S2 Abdominal: NL Sounds; No Tenderness; No Distention - obese Skin: - - CDI to RLE Neurological: Alert and Oriented x 3 Result Diagrams: 08/11/19 07:04 08/11/19 07:04 Microbiology and Other Data: Microbiology 08/08/19 19:00 Legionella Urinary Antigen - Final Urine Negative Legionella Antigen Streptococcus pneumoniae Ag Screen - Final Negative S. pneumo Antigen Assess/Plan/Problems-Billing Assessment: Mrs Martin is a 78yo F with PMH of morbid obesity with BMI 47.6, CAD s/p multivessel CABG 08/24/18 at [facility] [place] with MAZE procedure, Afib not on AC due to GI bleed, hypothyroidism, CKD stage 3, VALENTIN, myeloproliferative disorder, who presented to ED with c/o chills and right knee pain, found to have right knee popliteal cyst with possible infection. - Patient Problems (1) Abscess of knee, right Comment: - S/p I&D by Ortho on 08/09/2019 with drainage of clear fluid, no growth on culture so far. Probably inflammation, no clear evidence of infection. - ID consult appreciated - continue Doxycycline, d/c Vanco and Cefepime. - WBAT with knee immobilizer as per Ortho. - Awaiting PT consult. (2) Pneumonia Comment: - Concern for possible left lower lobe infiltrate on admission, but no clear infiltrate on CxR. - Suspect her symptoms are associated with her knee soft tissue infection. - Continue antibiotics and follow cultures. (3) CAD (coronary artery disease) Comment: - Stable. - No c/o chest pain or need for nitro since CABG. - EKG shows no acute ischemic changes. - Continue Plavix, metoprolol, amlodipine, Zetia. She's intolerant of statins and cannot afford PCSK9 agents. (4) GIDEON (acute kidney injury) Comment: - Creatinine up to 2.49 from baseline 1.4, likely secondary to Bactrim use. - Renal function remains stable. - Renal US did not show obstruction. (5) Paroxysmal atrial fibrillation Comment: - S/p MAZE procedure. - Continue Amiodarone and Metoprolol. - EKG shows NSR. - Not on anticoagulation due to h/o GI bleed. (6) DVT prophylaxis Comment: - Heparin SQ (7) Full code status Status and Disposition: Inpatient.
--- NOTE | 2019-08-11 13:48 | PN ---
Progress Note - Progress Note Date of Service: 08/11/19 SOAP: Subjective: []Pt seen and examined at bedside. She is feeling well without fever, chills. Has not yet been out of bed to walk, intends to get up today. Objective: []Gen: NAD, nontoxic appearing RLE: Right medial knee incision CDI, no erythema and no discharge. mildly tender over incision. Tolerating active f/e at the hip, knee and ankle without pain. Calves supple and nontender. NVI distally Assessment: [] POD 2 s/p excision of Soft tissue fluid collection with surrounding cyst, right medial knee. Plan: []WBAT w leg in extension in knee immobilizer PT/OT Cont abx per ID, doxy Vital Signs Temp 98.1 F 08/11/19 11:15 Pulse 61 08/11/19 11:15 Resp 18 08/11/19 11:15 BP 120/39 08/11/19 11:15 Pulse Ox 94 08/11/19 11:15 Intake & Output 08/10/19 08/11/19 08/11/19 18:59 06:59 18:59 Intake Total 970 3181 120 Balance 970 3181 120 Weight 250 lb 1.6 oz Intake: IV Fluids 300 135 Cefepime 50 65 Doxy 250 NS 70 IVPB 250 2566 Cefepime 2000 Doxy 266 vanco 250 300 Oral 420 480 120 Other: Estimated Void Medium Small # Voids 1 1 Laboratory Last Values WBC 6.2 10^3/uL (3.5-10.8) 08/11/19 07:04 RBC 2.45 10^6 /uL (3.70-4.87) L 08/11/19 07:04 Hgb 8.2 g/dL (12.0-16.0) L 08/11/19 07:04 Hct 24 % (35-47) L 08/11/19 07:04 MCV 97 fL (80-97) 08/11/19 07:04 MCH 34 pg (27-31) H 08/11/19 07:04 MCHC 34 g/dL (31-36) 08/11/19 07:04 RDW 13 % (10-15) 08/11/19 07:04 Plt Count 172 10^3/uL (150-450) 08/11/19 07:04 MPV 8.1 fL (7.4-10.4) 08/11/19 07:04 Neut % (Auto) 54.8 % 08/11/19 07:04 Lymph % (Auto) 29.3 % 08/11/19 07:04 [place] % (Auto) 9.0 % 08/11/19 07:04 Eos % (Auto) 6.5 % 08/11/19 07:04 Baso % (Auto) 0.4 % 08/11/19 07:04 Absolute Neuts (auto) 3.4 10^3/ul (1.5-7.7) 08/11/19 07:04 Absolute Lymphs (auto) 1.8 10^3/ul (1.0-4.8) 08/11/19 07:04 Absolute Monos (auto) 0.6 10^3/ul (0-0.8) 08/11/19 07:04 Absolute Eos (auto) 0.4 10^3/ul (0-0.6) 08/11/19 07:04 Absolute Basos (auto) 0.0 10^3/ul (0-0.2) 08/11/19 07:04 Absolute Nucleated RBC 0.0 10^3/ul 08/11/19 07:04 Nucleated RBC % 0.0 08/11/19 07:04 ESR 72 mm/Hr (0-29) H 08/08/19 18:20 Sodium 137 mmol/L (135-145) 08/11/19 07:04 Potassium 4.4 mmol/L (3.5-5.0) 08/11/19 07:04 Chloride 106 mmol/L (101-111) 08/11/19 07:04 Carbon Dioxide 24 mmol/L (22-32) 08/11/19 07:04 Anion Gap 7 mmol/L (2-11) 08/11/19 07:04 BUN 59 mg/dL (6-24) H 08/11/19 07:04 Creatinine 2.15 mg/dL (0.51-0.95) H 08/11/19 07:04 Est GFR ( Amer) 26.8 (>60) 08/11/19 07:04 Est GFR (Non-Af Amer) 22.1 (>60) 08/11/19 07:04 BUN/Creatinine Ratio 27.4 (8-20) H 08/11/19 07:04 Glucose 104 mg/dL (70-100) H 08/11/19 07:04 Lactic Acid 0.5 mmol/L (0.5-2.0) 08/09/19 08:31 Calcium 8.4 mg/dL (8.6-10.3) L 08/11/19 07:04 C-Reactive Protein 140.82 mg/L (<8.01) H 08/11/19 07:04 Urine Color Yellow 08/08/19 19:00 Urine Appearance Clear 08/08/19 19: Urine pH 5.0 (5-9) 08/08/19 19: Ur Specific [place] 1.014 (1.010-1.030) 08/08/19 19:00 Urine Protein 1+(30 mg/dl) (Negative) A 08/08/19 19:00 Urine Ketones Negative (Negative) 08/08/19 19:00 Urine Blood Negative (Negative) 08/08/19 19: Urine Nitrate Negative (Negative) 08/08/19 19: Urine Bilirubin Negative (Negative) 08/08/19 19:00 Urine Urobilinogen Negative (Negative) 08/08/19 19:00 Ur Leukocyte Esterase Negative (Negative) 08/08/19 19:00 Urine WBC (Auto) Trace(0-5/hpf) (Absent) 08/08/19 19:00 Urine RBC (Auto) 1+(3-5/hpf) (Absent) A 08/08/19 19:00 Ur Squamous Epith Cells Present (Absent) A 08/08/19 19:00 Urine Bacteria Absent (Absent) 08/08/19 19:00 Hyaline Casts Present (Absent) A 08/08/19 19:00 Urine Glucose Negative (Negative) 08/08/19 19:00 Urine Ascorbic Acid * (Negative) A 08/08/19 19:00 Random Vancomycin 15.5 mcg/mL 08/10/19 06:21 Influenza A (Rapid) Negative (Negative) 08/08/19 18:23 Influenza B (Rapid) Negative (Negative) 08/08/19 18:23
[2019-08-11] MEDS: Mometasone 220 MCG MDI INH SCH (19:54)
[2019-08-11] MEDS: Pramipexole TAB* 0.5 MG PO SCH (22:13)
[2019-08-11] MEDS: Venlafaxine EXT RELEASE CAP* 37.5 MG PO SCH (22:14)
[2019-08-11] MEDS: Melatonin 3 MG TAB PO SCH (22:16)
[2019-08-11] MEDS: Primidone 50 mg TAB (*) PO SCH (22:17)
[2019-08-11] MEDS: Fluticasone NASAL SPRAY 50MCG* 16 gm SPRAY BTL BOTH NARES SCH (22:24)
[2019-08-12] MEDS: Hydrocodone/Acetamin 10/325 MG 1 TAB PO PRN ×2 (03:00→23:55)
[2019-08-12] MEDS: Analgesic BALM* 114 GM TOPICAL SCH ×3 (03:08→21:20)
[2019-08-12] MEDS: Heparin VIAL(*) 5000 UNITS/ML VIAL (FIVE THOUSAND) SUBCUT SCH ×3 (06:02→21:24)
[2019-08-12] MEDS: Levothyroxine TAB* 175 MCG TAB PO SCH (06:02)
[2019-08-12 06:23] LABS: ABS Eosinophils 0.5 10^3/ul (0-0.6); ABS Lymphocytes 1.6 10^3/ul (1.0-4.8); ABS Monocytes 0.6 10^3/ul (0-0.8); ABS Neutrophils 3.5 10^3/ul (1.5-7.7); Eosinophil % 7.3 %; Hematocrit 25 % (35-47); Hemoglobin 8.4 g/dL (12.0-16.0); Lymphocyte % 25.8 %; Mean Corpuscular HGB Conc 33 g/dL (31-36); Mean Corpuscular Hemoglobin 33 pg (27-31); Mean Corpuscular Volume 98 fL (80-97); Mean Platelet Volume 7.8 fL (7.4-10.4); Platelet Count 185 10^3/uL (150-450); Red Blood Count 2.57 10^6 /uL (3.70-4.87); Red Cell Distribution Width 13 % (10-15); White Blood Count 6.2 10^3/uL (3.5-10.8)
[2019-08-12 06:42] LABS: Calcium 8.6 mg/dL (8.6-10.3); EGFR African American 32.4 (>60); EGFR Non-African American 26.8 (>60); Potassium 4.8 mmol/L (3.5-5.0)
[2019-08-12] MEDS: Ezetimibe TAB* 10 MG PO SCH (08:53)
[2019-08-12] MEDS: Metoprolol Succinate XL TAB* 25 MG PO SCH ×2 (08:53→21:23)
[2019-08-12] MEDS: Senna TAB 8.6 mg* TAB PO SCH ×2 (08:53→21:45)
[2019-08-12] MEDS: amLODIPine TAB* 5 MG PO SCH (08:53)
[2019-08-12] MEDS: Clopidogrel TAB* 75 MG PO SCH (08:53)
[2019-08-12] MEDS: Cholecalciferol TAB* 1000 UNITS PO SCH (08:54)
[2019-08-12] MEDS: Cetirizine* 10 MG TAB PO SCH (08:55)
[2019-08-12] MEDS: Multivitamins/Minerals TAB PO SCH (08:55)
[2019-08-12] MEDS: Docusate CAP* 100 MG PO SCH ×2 (08:55→21:23)
[2019-08-12] MEDS: Pantoprazole TAB * 40 MG TAB PO SCH ×2 (08:55→21:24)
[2019-08-12] MEDS: Montelukast Sodium TAB* 10 MG PO SCH (08:55)
[2019-08-12] MEDS: Amiodarone TAB* 200 MG PO SCH (08:55)
[2019-08-12] MEDS: DOXYcycline IV* 100 MG in NS 0.9% 250 ML* 250 ML IVPB SCH ×2 (09:16→21:18)
[2019-08-12] MEDS ORDERED: Vancomycin Trough Check NOTE FOLLOW UP ONE (10:30)
--- NOTE | 2019-08-12 11:00 | PN ---
Subjective Date of Service: 08/12/19 Interval History: HOSPITALIST PROGRESS NOTE Patient seen and examined at bedside. Care reviewed and d/w Pura Reynoso RN. She feels well today. Pain is controlled, but she still had some difficulty with ambulation. Family History: Unchanged from Admission Social History: Unchanged from Admission Past Medical History: Unchanged from Admission Objective Active Medications: Hydrocodone Bitart/Acetaminophen ([place] 10/325 (Nf)) 2 tab PO Q4H PRN PRN Reason: PAIN Last Admin: 08/12/19 03:00 Dose: 2 tab Albuterol/Ipratropium (Duoneb (Albuterol 2.5 Mg/Ipratropium 0.5 Mg)) 1 neb INH [id number] AWAKE PRN PRN Reason: sob/wheexing Amiodarone HCl (Cordarone Tab*) 100 mg PO DAILY [facility] Last Admin: 08/12/19 08:55 Dose: 100 mg Amlodipine Besylate (Norvasc Tab*) 10 mg PO DAILY [facility] Last Admin: 08/12/19 08:53 Dose: 10 mg Cetirizine HCl (Zyrtec*) 10 mg PO DAILY [facility] Last Admin: 08/12/19 08:55 Dose: 10 mg Cholecalciferol (Vitamin D Tab*) 2,000 units PO DAILY [facility] Last Admin: 08/12/19 08:54 Dose: 2,000 units Clopidogrel Bisulfate (Plavix Tab*) 75 mg PO DAILY [facility] Last Admin: 08/12/19 08:53 Dose: 75 mg Docusate Sodium (Colace Cap*) 200 mg PO BID [facility] Ezetimibe (Zetia Tab*) 10 mg PO DAILY [facility] Last Admin: 08/12/19 08:53 Dose: 10 mg Fluticasone Propionate (Flonase Nasal [place] 50mcg*) 1 spray BOTH NARES BEDTIME [facility] Last Admin: 08/11/19 22:24 Dose: 1 spray Heparin Sodium (Porcine) (Heparin Vial(*)) 5,000 units SUBCUT Q8HR [facility] Last Admin: 08/12/19 06:02 Dose: 5,000 units Doxycycline Hyclate 100 mg/ (Sodium Chloride) 250 mls @ 250 mls/hr IVPB Q12H [facility] Last Admin: 08/12/19 09:16 Dose: 250 mls/hr Levothyroxine Sodium (Synthroid Tab*) 175 mcg PO DAILY@0600 [facility] Last Admin: 08/12/19 06:02 Dose: 175 mcg Melatonin (Melatonin) 9 mg PO BEDTIME [facility] Last Admin: 08/11/19 22:16 Dose: 9 mg Metoprolol Succinate (Toprol Xl Tab*) 25 mg PO BID [facility] Last Admin: 08/12/19 08:53 Dose: 25 mg Mometasone Furoate (Asmanex 220 Mcg Mdi *) 1 puff INH QPM [facility] Last Admin: 08/11/19 19:54 Dose: 1 puff Montelukast Sodium (Singulair Tab*) 10 mg PO DAILY [facility] Last Admin: 08/12/19 08:55 Dose: 10 mg Morphine Sulfate (Morphine Inj (Syringe)*) 4 mg IV Q4H PRN PRN Reason: PAIN - SEVERE Last Admin: 08/10/19 17:08 Dose: 4 mg Multi-Ingredient Liniment/Rub (Rafael Pinto*) 1 applic TOPICAL BID [facility] Last Admin: 08/12/19 09:04 Dose: 1 applic Multivitamins/Minerals (Theragran/Minerals Tab*) 1 tab PO DAILY [facility] Last Admin: 08/12/19 08:55 Dose: 1 tab Ondansetron HCl (Zofran Inj*) 4 mg IV Q4H PRN PRN Reason: NAUSEA/VOMITING Last Admin: 08/09/19 09:57 Dose: 4 mg Pantoprazole Sodium (Protonix Tab*) 40 mg PO BID [facility] Last Admin: 08/12/19 08:55 Dose: 40 mg Pramipexole Dihydrochloride (Mirapex Tab*) 2 mg PO BEDTIME [facility] Last Admin: 08/11/19 22:13 Dose: 2 mg Primidone (Mysoline 250 Mg Tab (*)) 150 mg PO BEDTIME [facility] Last Admin: 08/11/19 22:17 Dose: 150 mg Senna (Senokot 8.6 Mg Tab*) 2 tab PO Q12HR [facility] Venlafaxine HCl (Effexor Xr Cap*) 37.5 mg PO BEDTIME [facility] Last Admin: 08/11/19 22:14 Dose: 37.5 mg Vital Signs - 8 hr 08/12/19 08/12/19 08/12/19 02:57 03:00 07:55 Temperature 97.9 F 97 F Pulse Rate 65 62 Respiratory 22 20 15 Rate Blood Pressure 150/58 130/49 (mmHg) O2 Sat by Pulse 92 92 Oximetry 08/12/19 08:00 Temperature Pulse Rate Respiratory Rate Blood Pressure (mmHg) O2 Sat by Pulse 92 Oximetry Oxygen Devices in Use Now: None Appearance: Pleasant elderly lady lying in bed in NAD Eyes: No Scleral Icterus Ears/Nose/Mouth/Throat: Mucous Membranes Moist Neck: Trachea Midline Respiratory: Symmetrical Chest Expansion and Respiratory Effort, Clear to Auscultation Cardiovascular: RRR - Normal S1 and S2 Abdominal: NL Sounds; No Tenderness; No Distention - Obese Extremities: - - CDI to right knee Neurological: Alert and Oriented x 3, NL Muscle Strength and Tone Result Diagrams: 08/12/19 06:00 08/12/19 06:00 Microbiology and Other Data: Microbiology 08/08/19 19:00 Legionella Urinary Antigen - Final Urine Negative Legionella Antigen Streptococcus pneumoniae Ag Screen - Final Negative S. pneumo Antigen Assess/Plan/Problems-Billing Assessment: Mrs Martin is a 78yo F with PMH of morbid obesity with BMI 47.6, CAD s/p multivessel CABG 08/24/18 at [facility] with MAZE procedure, Afib not on AC due to GI bleed, hypothyroidism, CKD stage 3, VALENTIN, myeloproliferative disorder, who presented to ED with c/o chills and right knee pain, found to have right knee popliteal cyst with possible infection. - Patient Problems (1) Abscess of knee, right Comment: - S/p I&D by Ortho on 08/09/2019 with drainage of clear fluid, no growth on culture so far. Probably inflammation, no clear evidence of infection. - ID consult appreciated - continue Doxycycline, d/c Vanco and Cefepime. - WBAT with knee immobilizer as per Ortho. - PT input appreciated - I recommend [facility], but patient is adamant she'll go home and her will care for her. (2) Pneumonia Comment: - Concern for possible left lower lobe infiltrate on admission, but no clear infiltrate on CxR. - Continue doxycycline. (3) CAD (coronary artery disease) Comment: - Stable. - No c/o chest pain or need for nitro since CABG. - EKG shows no acute ischemic changes. - Continue Plavix, metoprolol, amlodipine, Zetia. She's intolerant of statins and cannot afford PCSK9 agents. (4) GIDEON (acute kidney injury) Comment: - Creatinine up to 2.49 from baseline 1.4, likely secondary to Bactrim use. - Renal function continues to improve. - Renal US did not show obstruction. (5) Paroxysmal atrial fibrillation Comment: - S/p MAZE procedure. - Continue Amiodarone and Metoprolol. - EKG shows NSR. - Not on anticoagulation due to h/o GI bleed. (6) DVT prophylaxis Comment: - Heparin SQ (7) Full code status Status and Disposition: Inpatient.
--- NOTE | 2019-08-12 13:21 | PN ---
Progress Note - Progress Note Date of Service: 08/12/19 SOAP: Subjective: []Pt seen at bedside. She feels well without fever, chills. R knee pain improved and tolerable. Objective: []Gen: NAD, nontoxic appearing RLE: Right medial knee incision CDI, no erythema and no discharge. mildly tender over incision. Tolerating active f/e at the hip, knee and ankle without pain. Calves supple and nontender. NVI distally Assessment: [] POD 3 s/p excision of Soft tissue fluid collection with surrounding cyst, right medial knee. Plan: []WBAT w leg in extension in knee immobilizer. No work on knee ROM for another week. FU Dr Umana next week PT/OT Cont abx per ID, doxy Ready for DC from ortho standpoint Vital Signs Temp 97.3 F 08/12/19 11:03 Pulse 110 08/12/19 11:03 Resp 13 08/12/19 11:03 BP 137/57 08/12/19 11:03 Pulse Ox 97 08/12/19 11:03 Intake & Output 08/11/19 08/12/19 08/12/19 18:59 06:59 18:59 Intake Total 1795 270 120 Balance 1795 270 120 Intake: IV Fluids 325 270 Cefepime 55 Doxy 250 250 NS 20 20 Oral 1470 120 Other: Estimated Void Large Medium # Bowel Movements 0 # Voids 1 1 Laboratory Last Values WBC 6.2 10^3/uL (3.5-10.8) 08/12/19 06:00 RBC 2.57 10^6 /uL (3.70-4.87) L 08/12/19 06:00 Hgb 8.4 g/dL (12.0-16.0) L 08/12/19 06:00 Hct 25 % (35-47) L 08/12/19 06:00 MCV 98 fL (80-97) H 08/12/19 06:00 MCH 33 pg (27-31) H 08/12/19 06:00 MCHC 33 g/dL (31-36) 08/12/19 06:00 RDW 13 % (10-15) 08/12/19 06:00 Plt Count 185 10^3/uL (150-450) 08/12/19 06:00 MPV 7.8 fL (7.4-10.4) 08/12/19 06:00 Neut % (Auto) 56.6 % 08/12/19 06:00 Lymph % (Auto) 25.8 % 08/12/19 06:00 [place] % (Auto) 9.8 % 08/12/19 06:00 Eos % (Auto) 7.3 % 08/12/19 06:00 Baso % (Auto) 0.5 % 08/12/19 06:00 Absolute Neuts (auto) 3.5 10^3/ul (1.5-7.7) 08/12/19 06:00 Absolute Lymphs (auto) 1.6 10^3/ul (1.0-4.8) 08/12/19 06:00 Absolute Monos (auto) 0.6 10^3/ul (0-0.8) 08/12/19 06:00 Absolute Eos (auto) 0.5 10^3/ul (0-0.6) 08/12/19 06:00 Absolute Basos (auto) 0.0 10^3/ul (0-0.2) 08/12/19 06:00 Absolute Nucleated RBC 0.0 10^3/ul 08/12/19 06:00 Nucleated RBC % 0.0 08/12/19 06:00 ESR 72 mm/Hr (0-29) H 08/08/19 18:20 Sodium 137 mmol/L (135-145) 08/12/19 06:00 Potassium 4.8 mmol/L (3.5-5.0) 08/12/19 06:00 Chloride 109 mmol/L (101-111) 08/12/19 06:00 Carbon Dioxide 22 mmol/L (22-32) 08/12/19 06:00 Anion Gap 6 mmol/L (2-11) 08/12/19 06:00 BUN 60 mg/dL (6-24) H 08/12/19 06:00 Creatinine 1.82 mg/dL (0.51-0.95) H 08/12/19 06:00 Est GFR ( Amer) 32.4 (>60) 08/12/19 06:00 Est GFR (Non-Af Amer) 26.8 (>60) 08/12/19 06:00 BUN/Creatinine Ratio 33.0 (8-20) H 08/12/19 06:00 Glucose 99 mg/dL (70-100) 08/12/19 06:00 Lactic Acid 0.5 mmol/L (0.5-2.0) 08/09/19 08:31 Calcium 8.6 mg/dL (8.6-10.3) 08/12/19 06:00 C-Reactive Protein 140.82 mg/L (<8.01) H 08/11/19 07:04 Urine Color Yellow 08/08/19 19:00 Urine Appearance Clear 08/08/19 19:00 Urine pH 5.0 (5-9) 08/08/19 19:00 Ur Specific [place] 1.014 (1.010-1.030) 08/08/19 19:00 Urine Protein 1+(30 mg/dl) (Negative) A 08/08/19 19:00 Urine Ketones Negative (Negative) 08/08/19 19:00 Urine Blood Negative (Negative) 08/08/19 19:00 Urine Nitrate Negative (Negative) 08/08/19 19: Urine Bilirubin Negative (Negative) 08/08/19 19:00 Urine Urobilinogen Negative (Negative) 08/08/19 19:00 Ur Leukocyte Esterase Negative (Negative) 08/08/19 19:00 Urine WBC (Auto) Trace(0-5/hpf) (Absent) 08/08/19 19:00 Urine RBC (Auto) 1+(3-5/hpf) (Absent) A 08/08/19 19:00 Ur Squamous Epith Cells Present (Absent) A 08/08/19 19:00 Urine Bacteria Absent (Absent) 08/08/19 19:00 Hyaline Casts Present (Absent) A 08/08/19 19:00 Urine Glucose Negative (Negative) 08/08/19 19:00 Urine Ascorbic Acid * (Negative) A 08/08/19 19:00 Random Vancomycin 15.5 mcg/mL 08/10/19 06:21 Influenza A (Rapid) Negative (Negative) 08/08/19:23 Influenza B (Rapid) Negative (Negative) 08/08/19
--- NOTE | 2019-08-12 14:36 | PN ---
Progress Note - Progress Note Date of Service: 08/12/19 SOAP: Subjective: CC: Right knee soft tissue infection HPI: Ms. Martin is a 78 yo woman with PMH significant for asthma, lymphedema, VALENTIN, RLS, HTN, chronic anemia, myeloproliferative disorder, P afib, heart failure with pEF, essential tremmor, fibromyalgia, GERD, hypothyroidism, CAD, CKD 3, esophageal spasm, gastric ulcer and angina; who presented to the hospital with swelling and erythema adjacent to knee. Denies fever, chills, nausea, vomiting, or diarrhea. Reports frequent urination. Reports mild right knee pain, states it is improving. Objective: Vital Signs - 8 hr 08/12/19 08/12/19 08/12/19 07:55 08:00 11:03 Temperature 97 F 97.3 F Pulse Rate 62 110 Respiratory 15 13 Rate Blood Pressure 130/49 137/57 (mmHg) O2 Sat by Pulse 92 92 97 Oximetry Physical Exam: General: NAD, laying in bed Neurological: Alert and Oriented HEENT: Moist MM, no thrush Cardiovascular: Heart rate regular Respiratory: Lung sounds clear Abdominal: Bowel sounds present; ABD soft, non tender and obese MSK: No tenderness with palpation of the right knee, able to move left knee without difficulty Skin: No rash. DSG to right knee; clean, dry and intact Laboratory Results - last 24 hr 08/12/19 08/12/19 06:00 06:00 WBC 6.2 RBC 2.57 L Hgb 8.4 L Hct 25 L MCV 98 H MCH 33 H MCHC 33 RDW 13 Plt Count 185 MPV 7.8 Neut % (Auto) 56.6 Lymph % (Auto) 25.8 [place] % (Auto) 9.8 Eos % (Auto) 7.3 Baso % (Auto) 0.5 Absolute Neuts (auto) 3.5 Absolute Lymphs (auto) 1.6 Absolute Monos (auto) 0.6 Absolute Eos (auto) 0.5 Absolute Basos (auto) 0.0 Absolute Nucleated RBC 0.0 Nucleated RBC % 0.0 Sodium 137 Potassium 4.8 Chloride 109 Carbon Dioxide 22 Anion Gap 6 BUN 60 H Creatinine 1.82 H Est GFR ( Amer) 32.4 Est GFR (Non-Af Amer) 26.8 BUN/Creatinine Ratio 33.0 H Glucose 99 Calcium 8.6 Microbiology 08/09/19 12:36 Anaerobic Culture - Preliminary Wound 08/09/19 12:36 Gram Stain - Final Knee Wound Culture - Preliminary Normal Ronda 08/08/19 18:20 Aerobic Blood Culture - Preliminary Blood Venous No Growth Day 3 Anaerobic Blood Culture - Preliminary No Growth Day 3 08/08/19 18:20 Aerobic Blood Culture - Preliminary Blood Venous No Growth Day 3 Anaerobic Blood Culture - Preliminary No Growth Day 3 08/08/19 19:00 Urine Culture - Final Urine No Growth (<1,000 CFU/mL) 08/08/19 19:00 Legionella Urinary Antigen - Final Urine Negative Legionella Antigen Streptococcus pneumoniae Ag Screen - Final Negative S. pneumo Antigen Assessment: 1. Soft tissue cyst with inflammatory response. S/P I&D, POD #3; found to have cyst which did not track to knee joint or appear to be infected. Blood cultures with no growth. Wound culture with normal ronda. No ongoing evidence of infection, no leukocytosis, afebrile, and CRP trending down. 2. Morbid obesity. BMI 48.8 3. CKD, stage 3 4. Bilateral lower extremities lymphedema Plan: Continue doxycycline for 1 more day.
[2019-08-12] MEDS: Mometasone 220 MCG MDI INH SCH (19:23)
[2019-08-12] MEDS: Primidone 50 mg TAB (*) PO SCH (21:23)
[2019-08-12] MEDS: Melatonin 3 MG TAB PO SCH (21:23)
[2019-08-12] MEDS: Fluticasone NASAL SPRAY 50MCG* 16 gm SPRAY BTL BOTH NARES SCH (21:24)
[2019-08-12] MEDS: Venlafaxine EXT RELEASE CAP* 37.5 MG PO SCH (21:24)
[2019-08-12] MEDS: Pramipexole TAB* 0.5 MG PO SCH (21:24)
[2019-08-13] MEDS: Hydrocodone/Acetamin 10/325 MG 1 TAB PO PRN (05:35)
[2019-08-13] MEDS: Levothyroxine TAB* 175 MCG TAB PO SCH (05:36)
[2019-08-13] MEDS: Heparin VIAL(*) 5000 UNITS/ML VIAL (FIVE THOUSAND) SUBCUT SCH (05:36)
[2019-08-13] MEDS: Analgesic BALM* 114 GM TOPICAL SCH (10:41)
[2019-08-13] MEDS: Senna TAB 8.6 mg* TAB PO SCH (10:42)
[2019-08-13] MEDS: Pantoprazole TAB * 40 MG TAB PO SCH (10:44)
[2019-08-13] MEDS: amLODIPine TAB* 5 MG PO SCH (10:45)
[2019-08-13] MEDS: Clopidogrel TAB* 75 MG PO SCH (10:45)
[2019-08-13] MEDS: Montelukast Sodium TAB* 10 MG PO SCH (10:46)
[2019-08-13] MEDS: Cetirizine* 10 MG TAB PO SCH (10:46)
[2019-08-13] MEDS: Docusate CAP* 100 MG PO SCH (10:46)
[2019-08-13] MEDS: Amiodarone TAB* 200 MG PO SCH (10:47)
[2019-08-13] MEDS: Cholecalciferol TAB* 1000 UNITS PO SCH (10:47)
[2019-08-13] MEDS: Ezetimibe TAB* 10 MG PO SCH (10:48)
[2019-08-13] MEDS: Metoprolol Succinate XL TAB* 25 MG PO SCH (10:48)
[2019-08-13] MEDS: Multivitamins/Minerals TAB PO SCH (10:50)
[2019-08-13] MEDS ORDERED: DOXYcycline CAP(*) 100 MG PO ONE (10:51)
[2019-08-13] MEDS: DOXYcycline IV* 100 MG in NS 0.9% 250 ML* 250 ML IVPB SCH (11:53)
[2019-08-13 11:59] VITALS: BP 141/76
--- NOTE | 2019-08-14 00:31 | DS ---
CC: Dr. Villeda; Dr. Umana; Dr. Salcedo DISCHARGE SUMMARY: DATE OF ADMISSION: 08/08/19 DATE OF DISCHARGE: 08/13/19 PRIMARY CARE PROVIDER: Dr. Villeda. ORTHOPEDIST: Dr. Umana. INFECTIOUS DISEASE: Dr. Salcedo. DISCHARGE DIAGNOSES: 1. Right knee cyst with overlying cellulitis. 2. Possible pneumonia. 3. Acute kidney injury. SECONDARY DIAGNOSES: 1. Morbid obesity with a BMI of 48. 2. Coronary artery disease, status post multivessel coronary artery bypass grafting in August 2018 . 3. Atrial fibrillation, not on anticoagulation due to gastrointestinal bleed. 4. Status post Maze procedure. 5. Hypothyroidism. 6. Chronic kidney disease, stage 3. 7. Obstructive sleep apnea. 8. Myeloproliferative disorder. 9. Asthma. 10. Restless leg syndrome. 11. Heart failure with preserved ejection fraction. 12. Essential tremors. 13. Fibromyalgia. 14. Gastric ulcer secondary to NSAID use. MEDICATION LIST: 1. Albuterol nebulized 4 times a day p.r.n. shortness of breath or wheezing. 2. Albuterol HFA 2 puffs inhaled q.6 hours p.r.n. shortness of breath and wheezing. 3. Amiodarone 100 mg p.o. daily. 4. Amlodipine 10 mg p.o. daily. 5. Calcium plus magnesium 1 tablet p.o. daily. 6. Cholecalciferol 2000 units p.o. daily. 7. Clopidogrel 75 mg p.o. daily. 8. Zetia 10 mg p.o. daily. 9. Flovent HFA 110 mcg 1 puff inhaled b.i.d. 10. Fluticasone nasal spray 50 mcg 1 spray to both nares at bedtime. 11. Hydrocodone/acetaminophen 10/325 two tablets p.o. q.4 hours p.r.n. pain. 12. Levocetirizine 5 mg p.o. daily. 13. Levothyroxine 175 mcg p.o. daily. 14. Melatonin 10 mg p.o. at bedtime. 15. Metoprolol succinate 25 mg p.o. b.i.d. 16. Montelukast 10 mg p.o. daily. 17. Multivitamin with folic acid 400 mcg p.o. daily. 18. Omeprazole 20 mg p.o. b.i.d. 19. Mirapex 2 mg p.o. at bedtime. 20. Primidone 150 mg p.o. at bedtime. 21. Senna-S 2 tablets p.o. b.i.d. 22. Shark Cartilage 1000 mg p.o. b.i.d. 23. Torsemide 20 mg p.o. daily. 24. Venlafaxine ER 37.5 mg p.o. at bedtime. 25. Vitamin B Complex 1 capsule p.o. daily. HOSPITAL COURSE: Mrs. Martin is a 78-year-old female with a past medical history as stated above, tracey quesada presented to the emergency room with complaints of chills, nausea, coughing, and right knee pain. For more details about the presentation, I refer her to her history and physical. In the emergency room, the patient was found to have a right knee cyst and there was concern for poss ibly infection. She had a lower extremity CT that showed a nonspecific fluid collections in medial s ubcutaneous tissue corresponding with the ultrasound findings suggestive of a chronic hematoma. The patient was seen in consultation by orthopedist and taken to the OR on 08/09/[address] Umana and he performed I and D of the soft tissue fluid collection with surrounding cyst of the right medial k nee. The cultures from the fluid were negative and it appeared that the collection was not infected. The patient did have some erythema on the surrounding skin concerning for possible cellulitis which she was treated with doxycycline, but as described above, all her cultures were negative. The patient was also found to have elevation of the creatinine after 2.49 from a baseline of 1.4 and this was thought to be secondary to Bactrim use. She had a renal bladder ultrasound that showed mode rate left and mild right renal cortical atrophy and mild increased left renal corticoid echogenicity favoring presence of medical renal disease, but there was no obstructive uropathy. There was symmetr ic bilateral ureteral jets documented and the patient's renal function improved throughout admission and the last creatinine on the day of discharge was 1.8. She should have repeat renal function in e next week or 2 to assure stability. At admission, there was also a possible concern for left lower lobe pneumonia, but I do not see a bruce ar infiltrate on chest x-ray and she did not have inflammatory symptoms, so it is unlikely that pneum onia was present on admission. The patient was advised to use a knee immobilizer for ambulation and she required some assistance wit h physical therapy. So, my recommendation was for subacute rehab. The patient was adamant that she would not go to a facility and after taking to her casey saw operator and family member, decision was made for her to be discharged home with home services. On the day of discharge, the patient was in good s pirits, her pain was well controlled and she felt steady on her feet to ambulate at home. She was ab le to do stairs and her was also comfortable with taking care of her at home. She was advise d to do a dry gauze dressing change daily and she will follow up with Dr. Umana in 10 to 14 days for staple removal. PHYSICAL EXAMINATION: Vital Signs: Temperature 97.1, heart rate is 65, respiratory rate is 18, oxyg en saturation 98% on room air, blood pressure is 141/76. General: The patient is a pleasant, elderl y, morbidly obese lady, sitting up in bed, in no acute distress, already wearing street clothes. CVS : Normal S1, S2. Regular rate and rhythm. Chest: Breath sounds bilaterally with no added sounds. Abdomen: Soft, obese, bowel sounds present. Extremities: The patient has a clean surgical incisio n to the medial aspect of her right knee with no erythema or drainage. No calf tenderness. Her legs are puffy, but there is no pitting edema. Neuro: She is alert and oriented x3. Able to move all 4 extremities. DIET: Regular diet. ACTIVITY: As tolerated. DISPOSITION: To home. STATUS WHILE IN THE HOSPITAL: Inpatient. CONDITION AT THE TIME OF DISCHARGE: Fair. Please keep in mind this is a summarized version of this patient's hospital stay. If you need more in formation, please feel free to call me at [phone] or please obtain the full medical records. The patient already has an appointment to see Dr. Villeda on 08/16/19 at 8:40 a.m. TIME SPENT: Approximately 45 minutes was spent to complete this discharge. [id number]/[facility] #: [id number]
== END 2019-08-13 14:25 | disposition home or self-care (01) | DRG 464 ==
LOC: ED 17:05 → MED 20:34 → ED 22:16 → OBSVTOIN 08-09 07:36
PROVIDERS: ADMIT Internal Medicine; ATTEND Internal Medicine
PROC: 0JBN0ZZ Excision of Right Lower Leg Subcutaneous Tissue and Fascia, Open Approach (ICD-10-PCS; principal; 2019-08-09 11:45)
DX: M71.21 Synovial cyst of popliteal space [Baker], right knee (principal); L03.115 Cellulitis of right lower limb; 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 kidney disease with heart failure and stage 1 through stage 4 chronic kidney disease, or unspecified chronic kidney disease; I50.32 Chronic diastolic (congestive) heart failure; Z68.42 Body mass index [BMI] 45.0-49.9, adult; N17.9 Acute kidney failure, unspecified; E78.00 Pure hypercholesterolemia, unspecified; I25.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 native coronary artery without angina pectoris; K21.9 Gastro-esophageal reflux disease without esophagitis; N18.3 Chronic kidney disease, stage 3 (moderate); M79.7 Fibromyalgia; F40.240 Claustrophobia; E66.01 Morbid (severe) obesity due to excess calories; G47.33 Obstructive sleep apnea (adult) (pediatric); G25.81 Restless legs syndrome; I89.0 Lymphedema, not elsewhere classified; J45.909 Unspecified asthma, uncomplicated; D63.1 Anemia in chronic kidney disease; I48.0 Paroxysmal atrial fibrillation; G25.0 Essential tremor; E03.9 Hypothyroidism, unspecified; Z96.643 Presence of artificial hip joint, bilateral; E78.5 Hyperlipidemia, unspecified; F41.9 Anxiety disorder, unspecified; F32.9 Major depressive disorder, single episode, unspecified; K22.4 Dyskinesia of esophagus; M10.9 Gout, unspecified; G89.29 Other chronic pain; M17.0 Bilateral primary osteoarthritis of knee; K25.9 Gastric ulcer, unspecified as acute or chronic, without hemorrhage or perforation; H91.91 Unspecified hearing loss, right ear; Z97.4 Presence of external hearing-aid; Z88.8 Allergy status to other drugs, medicaments and biological substances; Z88.1 Allergy status to other antibiotic agents; Z91.041 Radiographic dye allergy status; Z95.5 Presence of coronary angioplasty implant and graft; I25.2 Old myocardial infarction; Z95.1 Presence of aortocoronary bypass graft
CPT/HCPCS: 36415; 71045; 76770; 80048; 80202; 81003; 81015; 83605; 85025; 85652; 86140; 87040; 87070; 87073; 87077; 87086; 87205; 87899; 88304; 93005; 94640; 96365; 99284; A9270-GY; J0692; J1040; J1100; J1170; J1644; J2250; J2270; J2405; J2704; J3010; J3370; J3490

== ENCOUNTER 2019-08-24 12:01 | Inpatient (IN) | payer MEDICARE ==
--- OUTSIDE RECORDS SUMMARY | 2019-08-24 12:30 | XMS REPORT | Continuity of Care Document ---
:1940 External Reference #:[id number] Author Name Bryson Umana M.D. (transmitted by agent of provider Noemy Thompson) Address [address] [place] [id number] Care Team Providers Name Role Phone Roger Giron MD - Internal Care Team Information Laboratory Chief [phone] Veronica Montiel FNP - Family Care Team Information Laboratory Chief [phone] Manas Villeda MD - Family Care Team Information Laboratory Chief [phone] Medicine Estelita Brown MD - Vascular Surgery Care Team Information Laboratory Chief Arnold Holguin MD - Hospitalist Care Team Information Laboratory Chief [phone] Problems Active Problems Provider Date Restless legs Jaziel Hurst M.D. Onset: 04/06/2015 Dyspnea Sharon Peter MD Onset: 06/10/2016 Asthma without status asthmaticus Sharon Peter MD Onset: 06/10/2016 Disturbance in sleep behavior Sharon Peter MD Onset: 06/10/2016 Morbid obesity Sharon Peter MD Onset: 06/10/2016 Encounter for planned postprocedural Bennie Herron M.D., [facility], [facility] Onset: wound closure Angina pectoris [...] disease of Lennox Singh M.D. Onset: 01/24/2018 [place] coronary artery without angina pectoris Contusion of abdominal wall Lennox Singh M.D. Onset: 01/25/2018 Chest pain Ivanna Palomo.Benjamin Onset: 01/31/2018 Hypothyroidism Ivanna Palomo.OKandi Onset: 01/31/2018 Chronic diastolic heart failure Shanda Gregory D.O. Onset: 02/01/2018 Hypertensive heart and chronic kidney Ivanna Palomo.Benjamin Onset: 02/01/2018 disease with heart failure and [...] disease of Arnold Holguin MD Onset: 07/07/2018 [place] coronary artery with unspecified angina pectoris Localized, primary osteoarthritis Marisela Driver M.D. Onset: 04/12/2019 Social History Type Date Description Comments Sex Unknown Tobacco Use Start: Unknown Never Smoked Cigarettes Smoking Status Reviewed: 08/24/19 Never Smoked Cigarettes ETOH Use Rarely consumes [...] Medications SIG Qnty Indications Ordering Date Provider Doxycycline take one capsule 14caps M71.061 Saw Vaca, 08/19/2019 Monohydrate twice a day x 7 MD 100mg days. Capsules Doxycycline Take one capsule 10caps M71.061 Mp F 08/16/2019 Monohydrate every 12 hours for MD Leighton 100mg 5 days Capsules Amlodipine Besylate 1 by mouth every 90tabs I25.119 You SKandi 04/23/2019 5mg day Danny, DO FACC Tablets Amiodarone HCL 1/2 tab by mouth 90tabs You SKandi 07/23/2018 200mg every day Delgado, DO FACC Tablets Torsemide As directed by 90tabs You SKandi 07/23/2018 20mg Tablets Auto Service Instructor Danny, DO FACC Plavix take one tablet by 90tabs You Duggan 02/27/2018 75mg Tablets mouth daily Danny, DO FACC Ezetimibe take one tablet 90tabs E78.5 You SKandi 06/27/2017 10mg Tablets daily, generic if Delgado, DO FACC available Oxygen please use o2 at 1units R09.02 Sharon Peter, 08/15/2016 Misc 2l/min with MD laboy. pls provide pt with light wt conserving device for o2 Ventolin HFA 2 puffs by mouth Unknown four times a day 108(90Base) mcg/Act as needed Aerosol Breo Ellipta 1 puff inhaled Feli daily BALWINDER Oliva, RN, 100-25mcg/Inh Aerosol ACID PURIFICATION EQUIPMENT OPERATOR-BC Shark Cartilage 2 by mouth twice Unknown 500mg a day Calcium& Magnesium 1 po daily Unknown 750-465mg Aspirin Ec 1 by mouth every Unknown 81mg Tablets day Vitamin D 2 tabs by mouth 90tabs Unknown 1000Units everyday Tablets Melatonin 1 tab by mouth at Unknown 10mg Capsules bedtime as needed for insomnia Omeprazole 1 by mouth every 90caps You S. 40mg day Delgado, DO FACC Capsules Metoprolol Succinate 1 by mouth twice a 180tabs You S. ER day Danny, DO FACC 25mg Tablets ER 24HR Primidone take 3 tablets 270tabs You S. 50mg Tablets (150 mg) by mouth Danny, DO FACC at bedtime Pramipexole take 2 at bedtime Amaris, Dihydrochloride VY Martin 1mg Tablets Nitrofurantoin Take 1 Capsule By Unknown Monohydrate/Macrocrys Mouth Twice Daily tals 100mg Capsules Levothyroxine Sodium 1 by mouth every Unknown day 175mcg Tablets Amitriptyline HCL take 1 tablets Unknown 10mg every night Tablets Levocetirizine 1 by mouth every Unknown Dihydrochloride day 5mg Tablets Venlafaxine HCL 1 qhs per patient 270tabs Jaziel S. 37.5mg Jeane Hurst Tablets Multivitamin + Folic 1 tablet once a Unknown Acid day 400mcg Tablet Fluticasone 1 sprays each Unknown Propionate nostril twice a 110mcg/Act day Suspension Colace 2 cap po bid Unknown 100mg Capsules Senna take 2 tablets by Unknown 8.6mg Tablets mouth twice a day Albuterol Sulfate qid prn neb 100units Unknown 2.5mg/3ML 0.083% Nebulizer Vitamin B Complex 1 po daily Unknown Singulair 1 po qd 30tabs Unknown 10mg Tablets Hydrocodone-Acetamino 1-2 po Q4H prn 120tabs Unknown phen 10/325 Tablets Medications Administered in Office Medication SIG Qnty Indications Ordering Provider Date Celestone 3 mg and 3mg Bryson Mcgarry MD 05/25/2019 Injection Celestone 3 mg and 3mg Bryson Mcgarry MD 05/25/2019 Injection Technetium TC 99M Ica Nuclear Schedule 03/26/2018 Tetrofosmin, Per Unit Dose Up To 40 Millicuries Injection Inj, Regadenoson, 0.1 MG You Delgado, DO FAC 03/25/2018 Injection Technetium TC 99M You Delgado, DO [facility] 03/25/2018 Tetrofosmin, Per Unit Dose Up To 40 Millicuries Injection Immunizations CPT Code Status Date Vaccine Lot # [id number] Given 06/28/1997 Flu Vaccine Vital Signs Date Vital Result Comment 08/24/2019 11:15am Height 60 inches 5'0" Weight 235.00 lb stated Heart Rate 68 /min BP Systolic 132 mmHg BP Diastolic 68 mmHg Respiratory Rate 22 /min Body Temperature 96.8 F Pain Level 8 O2 % BldC Oximetry 97 % BMI (Body Mass Index) 45.9 kg/m2 08/19/2019 10:31am Height 60 inches 5'0" Weight 235.00 lb Heart Rate 60 /min BP Systolic 138 mmHg BP Diastolic 92 mmHg Respiratory Rate 12 /min Body Temperature 97.2 F Pain Level 8 BMI (Body Mass Index) 45.9 kg/m2 Results Test Acquired Date Facility Test Result H/L Range Note Laboratory test 08/08/2019 [facility] Legionella SEE RESULT [address] [place] [address] [phone] Influenza A & B 08/08/2019 [facility] Flu AB (SEE NOTE) [address] [place] [address] [phone] Influenza A Molecular NEGATIVE Negative Influenza B Molecular NEGATIVE Negative 3 Laboratory test 08/08/2019 [facility] Lactic Acid 1.3 mmol/L Normal 0.5-2.0 [address] [place] [address] [phone] CBC Auto Diff 08/08/2019 [facility] White Blood 10.9 High 3.5- 10.[address] Count 10^3/[place] [address] [phone] Red Blood Count 3.12 10^6/uL Low 3.70-4.87 Hemoglobin 10.4 g/dL Low 12.0-16.0 Hematocrit 30 % Low 35-47 Mean Corpuscular Volume 97 fL Normal 80-97 Mean Corpuscular Hemoglobin 33 pg High 27-31 Mean Corpuscular HGB Conc 34 g/dL Normal 31-36 Red Cell Distribution Width 12 % Normal 10-15 Platelet Count 218 10^3/uL Normal 150-450 Mean Platelet Volume 8.0 fL Normal 7.4-10.4 Abs Neutrophils 7.9 10^3/uL High 1.5-7.7 Abs Lymphocytes 1.9 10^3/uL Normal 1.0-4.8 Abs Monocytes 0.9 10^3/uL High 0-0.8 Abs Eosinophils 0.2 10^3/uL Normal 0-0.6 Abs Basophils 0.0 10^3/uL Normal 0-0.2 Abs Nucleated RBC 0.0 10^3/uL Granulocyte % 72.4 % Lymphocyte % 17.1 % Monocyte % 7.9 % Eosinophil % 2.2 % Basophil % 0.4 % Nucleated Red Blood Cells % 0.0 Basic Metabolic 08/08/2019 [facility] Sodium 133 mmol/L Low 135-[address] [place] [address] [phone] Potassium 4.1 mmol/L Normal 3.5-5.0 Chloride 97 mmol/L Low 101-111 Co2 Carbon Dioxide 24 mmol/L Normal 22-32 Anion Gap 12 mmol/L High 2-11 Glucose 180 mg/dL High 70-100 Blood Urea Nitrogen 59 mg/dL High 6-24 Creatinine 2.49 mg/dL High 0.51-0.95 BUN/Creatinine Ratio 23.7 High 8-20 Calcium 9.0 mg/dL Normal 8.6-10.3 Egfr Non- 18.7 >60 Egfr 22.6 >60 5 Laboratory test 08/08/2019 [facility] C Reactive 177.86 mg/L High <8.[address] [place] [address] [phone] Urinalysis 08/08/2019 [facility] Urine Color Yellow Profile [address] [place] [address] [phone] Urine Appearance Clear Urine Specific [place] 1.014 Normal 1.010-1.030 Urine pH 5.0 Normal 5-9 Urine Urobilinogen Negative Negative Urine Ketones Negative Negative Urine Protein 1+(30 mg/dL) Abnormal Negative Urine Leukocytes Negative Negative Urine Blood Negative Negative * * Abnormal Negative 6 Urine Nitrite Negative Negative Urine Bilirubin Negative Negative Urine Glucose Negative Negative Urine White Blood Cell Trace(0-5/hpf) Absent Urine Red Blood Cell 1+(3-5/hpf) Abnormal Absent Urine Bacteria Absent Absent Urine Squamous Epithelial Cell Present Abnormal Absent Urine Hyaline Casts Present Abnormal Absent Laboratory test 08/08/2019 [facility] Erythrocyte Sed 72 mm/Hr High 0-[address] [place] [address] [phone] Urine Culture And 08/08/2019 [facility] Urine Culture SEE RESULT [address] [place] [address] [phone] Laboratory test 08/08/2019 [facility] Blood Culture SEE RESULT [address] [place] [address] [phone] 1 SEE RESULT BELOW Name: JOCELYNE MARTIN Rafaela : [address]: Que Jay MD Acct: [id number] Unit: [id number] AGE: 78 Location: ED Re08/08/19 SEX: F Status: REG ER SPEC: [id number] OSCAR: 08/08/[address] [facility] [address]: Renetta Pagan NP REQ: [id number] RECD: 08/08/19 STATUS: COMP [facility] DR: You Umana MD _ SOURCE: URINE SPDESC: ORDERED: Legion Ur Ag, S.pneumo Ur Ag Procedure Result Reported Site Legionella Urine Antigen Final 08/08/19- 2153 ML Organism 1 Negative Legionella Antigen Antigen testing by enzyme immunoassay. As with all diagnostic procedures, the laboratory results obtained should be used in conjunction with other clinical information available to the physician, including confirmation by another method, as applicable. Strep. Pneumonia Urine Antigen Final 08/08/19- 2153 ML Organism 1 Negative S. pneumo Antigen Antigen testing by enzyme immunoassay. As with all diagnostic procedures, the laboratory results obtained should be used in conjunction with other clinical information available to the physician, including confirmation by another method, as applicable. * ML - [facility] . END OF REPORT DEPARTMENT OF PATHOLOGY, [address] [place] [address] Ramos Durand M.D. Director [facility] # [id number] 2 Suboptimal collection technique may reduce sensitivity of test. Refer to the [facility] Test Catalog for collection information: [email or web address] As with all diagnostic procedures, the laboratory results obtained should be used in conjunction with other clinical information available to the physician, including confirmation by another method, as applicable. 3 Sound Truck Operator: [id number] 4 [facility] Severe Sepsis and Septic Shock [...] 5 Kidney failure <15 (or dialysis) 6 *Ascorbic acid is present which may interfere with detection of blood. 7 SEE RESULT BELOW Name: LISETHFARSHADJOCELYNE A : [address]: Capri Elliott MD Acct: [id number] Unit: [id number] AGE: 78 Location: [address] Re08/09/19 SEX: F Status: ADM IN SPEC: [id number] OSCAR: 08/08/[address] [facility] [address]: Que Jay MD REQ: [id number] RECD: 01/19/20-1903 STATUS: COMP OTHR DR: You Bains MD _ SOURCE: URINE SPDESC: ORDERED: Urine Culture Procedure Result Reported Site Urine Culture Final 08/09/19- 1400 ML No Growth (<1,000 CFU/mL) * ML - [facility] . END OF REPORT DEPARTMENT OF PATHOLOGY, [address] [place] [address] Ramos Durand M.D. Director [facility] # [id number] 8 SEE RESULT BELOW Name: JOCELYNE MARTIN : [address]: Capri Elliott MD Acct: [id number] Unit: [id number] AGE: 78 Location: [place] [address]- Re08/09/19 Dis: 08/13/19 SEX: F Status: DIS IN SPEC: [id number] OSCAR: 08/08/[address] [facility] [address]: Que Jay MD REQ: [id number] RECD: 08/08/19 STATUS: [facility] DR: You Bains MD _ SOURCE: BLOOD,VENO SPDESC: ORDERED: Blood Cult Procedure Result Reported Site Aerobic Culture Bottle Final 08/13/19- 1827 ML No Growth Day 5 Anaerobic Culture Bottle Final 08/13/19- 1827 ML No Growth Day 5 * ML - [facility] . END OF REPORT DEPARTMENT OF PATHOLOGY, [address] [place] [id number] Ramos Durand M.D. Director [facility] # [id number] Procedures Date Code Description Status 08/09/2019 65002 EKG, Interpretation Only Completed 08/09/2019 74482 Excision Tumor Soft Tissue Thigh/Knee Subcutaneous, 3 Completed CM Or > 08/09/2019 51647 Excision Tumor Soft Tissue Thigh/Knee Subcutaneous, 3 Completed CM Or > 05/25/2019 72599 Inject/Drain Joint/Bursa Small W/O US Completed 05/25/2019 49038 Inject/Drain Joint/Bursa Small W/O US Completed 04/23/2019 70953 EKG Tracing & Interpretation Completed 08/06/2016 [id number] Diabetic Retinal Eye Exam Completed Medical Devices Description No Information Available Encounters Type Date Location Provider Dx Diagnosis Office Visit 08/12/2019 [facility] Capri Connolly, N17.9 Acute kidney 9:08a carli Murray M.D. failure, Hospitalists unspecified I48.0 Paroxysmal atrial fibrillation Office Visit 08/11/2019 9:04a [facility] Chaitanya Forte L72.9 Follicular cyst of For Infectious Jeane Beltrán the skin and Diseases subcutaneous tissue, unsp M25.561 Pain in right knee Office Visit 08/11/2019 9:08a [facility] Capri N17.9 Acute kidney Asscarli dickinson M.D. failure, Hospitalists unspecified I48.0 Paroxysmal atrial fibrillation Office Visit 08/10/2019 [facility] Fawn Ramos L03.115 Cellulitis of 9:03a For Infectious Benson, SCIENCE EDUCATION PROFESSOR right lower limb Diseases N18.3 Chronic kidney disease, stage 3 (moderate) I89.0 Lymphedema, not elsewhere classified Office Visit 08/10/2019 9:07a [facility] Capri N17.9 Acute kidney Asscarli dickinson M.D. failure, Hospitalists unspecified I48.0 Paroxysmal atrial fibrillation 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[place] coronary artery w/o ang pctrs Office Visit 08/09/2019 9:07a [facility] Capri N17.9 Acute kidney Assoccarli M.D. failure, Hospitalists unspecified I48.0 Paroxysmal atrial fibrillation 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[place] coronary artery w/o ang pctrs Office Visit 08/09/2019 [facility] Bryson M71.061 Abscess of bursa, 12:10p at Marion Umana M.D. right knee Office Visit 08/08/2019 [facility] Jassoily N17.9 Acute kidney 9:06a Assoc,carli Banegas, SCIENCE EDUCATION PROFESSOR failure, Hospitalists unspecified M71.21 Synovial cyst of popliteal space [[place]], right knee I12.9 Hypertensive chronic kidney disease w stg 1-4/unsp chr kdny N18.9 Chronic kidney disease, unspecified I48.0 Paroxysmal atrial fibrillation F41.8 Other specified anxiety disorders G25.0 Essential tremor Office Visit 05/25/2019 [facility] Bryson M19.042 Primary 3:00p Orthopedics at MD Zeferino osteoarthritis, left [place] hand M19.041 Primary osteoarthritis, right hand Office Visit 05/11/2019 3:00p [facility] Donna Romero, D64.89 Other specified [facility] [place] Office Visit 05/06/2019 3:45p [place] carmen Duggan G25.0 Essential tremor Neurologic Serv Jeane Hurst [facility] G44.229 Chronic tension-type headache, not intractable I20.8 Other forms of angina pectoris Office Visit 04/23/2019 11:15a Cardiology You Duggan R60.0 Localized edema [facility] AT [facility] FAC 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[place] coronary artery w/o ang pctrs D64.9 Anemia, unspecified 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 graft I48.0 Paroxysmal atrial fibrillation D64.89 Other specified anemias I50.32 Chronic diastolic (congestive) heart failure N18.9 Chronic kidney disease, unspecified G25.0 Essential tremor D47.1 Chronic myeloproliferative disease I10 Essential (primary) hypertension E78.5 Hyperlipidemia, unspecified I25.2 Old myocardial infarction G47.33 Obstructive sleep apnea (adult) (pediatric) Z87.11 Personal history of peptic ulcer disease Office Visit 04/13/2019 3:00p [facility] Donna Romero, D64.9 Anemia, [facility] AT Reanna unspecified [place] R53.83 Other fatigue 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[place] coronary artery w/o ang 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 knee M25.561 Pain in right knee M25.462 Effusion, left knee M25.461 Effusion, right knee M17.0 Bilateral primary osteoarthritis of knee M25.511 Pain in right shoulder Office 03/17/2019 [facility] Agnes K21.0 Gastro-esophageal Visit 4:00p Veronica reflux disease with RODRIGO Boss esophagitis Assessments Date Code Description Provider 08/19/2019 M71.061 Abscess of bursa, right knee Bryson Umana M.D. 08/19/2019 Z47.89 Encounter for other orthopedic Bryson Umana M.D. aftercare 08/16/2019 M71.061 Abscess of bursa, right knee Mp Manzanares MD 08/13/2019 N17.9 Acute kidney failure, unspecified Capri Connolly M.D. 08/13/2019 M25.561 Pain in right knee Capri Connolly M.D. 08/13/2019 L03.115 Cellulitis of right lower limb Capri Connolly M.D. 08/13/2019 I48.0 Paroxysmal atrial fibrillation Capri Connolly M.D. 08/13/2019 E66.01 Morbid (severe) obesity due to excess Capri Connolly M.D. calories 08/12/2019 N17.9 Acute kidney failure, unspecified Capri Connolly M.D. 08/12/2019 I48.0 Paroxysmal atrial fibrillation Capri Connolly M.D. 08/11/2019 N17.9 Acute kidney failure, unspecified Capri Connolly M.D. 08/11/2019 L72.9 Follicular cyst of the skin and Chaitanya Beltrán M.D. subcutaneous tissue, unspecified 08/11/2019 I48.0 Paroxysmal atrial fibrillation Capri Connolly M.D. 08/11/2019 M25.561 Pain in right knee Chaitanya Beltrán M.D. 08/10/2019 N17.9 Acute kidney failure, unspecified Capri Connolly M.D. 08/10/2019 L03.115 Cellulitis of right lower limb Fawn Benson, RODRIGO 08/10/2019 I48.0 Paroxysmal atrial fibrillation Capri Connolly M.D. 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 [EKG] 08/09/2019 M71.061 Abscess of bursa, right knee Mario Monet, RPA- C 08/09/2019 N17.9 Acute kidney failure, unspecified Capri Connolly M.D. 08/09/2019 M71.061 Abscess of bursa, right knee Bryson Umana M.D. 08/09/2019 I48.0 Paroxysmal atrial fibrillation Capri oCnnolly M.D. 08/09/2019 M71.061 Abscess of bursa, right knee Bryson Umana M.D. 08/09/2019 I25.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 Capri Connolly M.D. 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 05/06/2019 G25.0 Essential tremor Jaziel Hurst M.D. 05/06/2019 G44.229 Chronic tension-type headache, not Jaziel Hurst M.D. intractable 05/06/2019 I20.8 Other forms of angina pectoris Jaziel Hurst M.D. 04/23/2019 R60.0 Localized edema You Urban Delgado, DO FACC 04/23/2019 I25.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 You Pollackno, DO [facility] [place] coronary artery with 04/23/2019 D64.9 Anemia, unspecified You SKandi Delgado, DO FACC 04/23/2019 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 You Delgado DO [facility] graft 04/23/2019 I48.0 Paroxysmal atrial fibrillation You Delgado, DO FACC 04/23/2019 D64.89 Other specified anemias You SKandi Delgado, DO FACC 04/23/2019 I50.32 Chronic diastolic (congestive) heart You Delgado [facility] failure 04/23/2019 N18.9 Chronic kidney disease, unspecified You Urban Delgado, DO FACC 04/23/2019 G25.0 Essential tremor You SKandi Delgado, DO FACC 04/23/2019 D47.1 Chronic myeloproliferative disease You Delgado, DO FACC 04/23/2019 I10 Essential (primary) hypertension You Delgado DO FACC 04/23/2019 E78.5 Hyperlipidemia, unspecified You Delgado, DO FACC 04/23/2019 I25.2 Old myocardial infarction You Delgado DO FACC 04/23/2019 G47.33 Obstructive sleep apnea (adult) You Delgado DO [facility] (pediatric) 04/23/2019 Z87.11 Personal history of peptic ulcer You Delgado DO FAC disease 04/13/2019 D64.9 Anemia, unspecified Avinash Romero M.D. 04/13/2019 R53.83 Other fatigue Avinash Romero M.D. 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 [place] coronary artery with 04/13/2019 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 Avinash Romero M.D. graft 04/12/2019 M25.562 Pain in left knee Marisela Driver M.D. 04/12/2019 M25.561 Pain in right knee Marisela Driver M.D. 04/12/2019 M25.462 Effusion, left knee Marisela Driver M.D. 04/12/2019 M25.461 Effusion, right knee Marisela Driver M.D. 04/12/2019 M17.0 Bilateral primary osteoarthritis of Marisela Driver M.D. knee 04/12/2019 M25.511 Pain in right shoulder Marisela Driver M.D. 03/17/2019 K21.0 Gastro-esophageal reflux disease with Agnes Boss NP esophagitis Plan of Treatment Future Appointment(s):09/15/2019 10:30 am - Sharon Peter MD at [facility]11/22/2019 12:30 pm - Nelli Willett MD at [facility]11/16/2019 4:10 pm - Kris Merrill MD at [facility] D[facility]at[facility] AT [place] Functional Status Description No Information Available Mental Status Description No Information Available Referrals Description No Information Available
--- OUTSIDE RECORDS SUMMARY | 2019-08-24 12:30 | XMS REPORT | Continuity of Care Document ---
:1940 External Reference #:[id number] Author Name Mp Manzanares MD (transmitted by agent of provider Tri Page) Address [address] [place] [phone] Care Team Providers Name Role Phone Roger Giron MD - Internal Care Team Information Descriptive Catalog Librarian Veronica Montiel FNP - Family Care Team Information Descriptive Catalog Librarian Manas Villeda MD - Family Care Team Information Descriptive Catalog Librarian [phone] Medicine Estelita Brown MD - Vascular Surgery Care Team Information Descriptive Catalog Librarian Arnold Holguin MD - Hospitalist Care Team Information Descriptive Catalog Librarian [phone] Problems Active Problems Provider Date Restless legs Jaziel Hurst M.D. Onset: 04/06/2015 Dyspnea Sharon Peter MD Onset: 06/10/2016 Asthma without status asthmaticus Sharon Peter MD Onset: 06/10/2016 Disturbance in sleep behavior Sharon Peter MD Onset: 06/10/2016 Morbid obesity Sharon Peter MD Onset: 06/10/2016 Encounter for planned postprocedural Bennie Herron M.D., [facility], [facility] Onset: wound closure Angina pectoris Bryson Steiner M.D. Onset: 01/21/2018 Atrial fibrillation Bryson Steiner M.D. Onset: 01/21/2018 Obstructive sleep apnea syndrome Bryson Steiner M.D. Onset: 01/21/2018 Chronic kidney disease Bryson Steiner M.D. Onset: 01/21/2018 Chronic respiratory failure Bryson Steiner M.D. Onset: 01/21/2018 Impending infarction Bryson Steienr M.D. Onset: 01/21/2018 Anemia Yuval Marshall M.D. Onset: 01/22/2018 Paroxysmal atrial fibrillation Lennox Singh M.D. Onset: 01/23/2018 Chronic kidney disease stage 3 Lennox Singh M.D. Onset: 01/23/2018 Gastric ulcer without hemorrhage, Lennox Singh M.D. 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 Onset: 01/25/2018 Chest pain Ivanna Palomo.Benjamin Onset: 01/31/2018 Hypothyroidism Ivanna Palomo.OKandi Onset: 01/31/2018 Chronic diastolic heart failure Ivanna [...] disease of Arnold Holguin MD Onset: 07/07/2018 king salmon coronary artery with unspecified angina pectoris Localized, primary osteoarthritis Marisela Driver M.D. Onset: 04/12/2019 Social History Type Date Description Comments Sex Unknown Tobacco Use Start: Unknown Never Smoked Cigarettes Smoking Status Reviewed: 08/16/19 Never Smoked Cigarettes ETOH Use Rarely consumes [...] SIG Qnty Indications Ordering Date Provider Doxycycline Take one capsule 10caps M71.061 Mp F 08/16/2019 Monohydrate every 12 hours for MD Leighton 100mg 5 days Capsules Amlodipine Besylate 1 by mouth every 90tabs I25.119 You Duggan 04/23/2019 5mg day Delgado, DO FACC Tablets Amiodarone HCL 1/2 tab by mouth 90tabs You SKandi 07/23/2018 200mg every day Delgado, DO FACC Tablets Torsemide As directed by 90tabs You Duggan 07/23/2018 20mg Tablets Head Tennis Coach Danny, DO FACC Plavix take one tablet by 90tabs You Duggan 02/27/2018 75mg Tablets mouth daily Danny, DO FACC Ezetimibe take one tablet 90tabs E78.5 You Duggan 06/27/2017 10mg Tablets daily, generic if Delgado, DO FACC available Oxygen please use o2 at 1units R09.02 Sharon Brittani, 08/15/2016 Misc 2l/min with exertion. pls provide pt with light wt conserving device for o2 Ventolin HFA 2 puffs by mouth Unknown four times a day 108(90Base) mcg/Act as needed Aerosol Breo Ellipta 1 puff inhaled Feli daily Hazel, BALWINDER, RN, 100-25mcg/Inh Aerosol LOOM FIXER HELPER-BC Shark Cartilage 2 by mouth twice Unknown 500mg a day Calcium& Magnesium 1 po daily Unknown 750-465mg Aspirin Ec 1 by mouth every Unknown 81mg Tablets day Vitamin D 2 tabs by mouth 90tabs Unknown 1000Units everyday Tablets Melatonin 1 tab by mouth at Unknown 10mg Capsules bedtime as needed for insomnia Omeprazole 1 by mouth every 90caps You S. 40mg day DO Danny FACC Capsules Metoprolol Succinate 1 by mouth twice a 180tabs You S. ER day DO Danny FACC 25mg Tablets ER 24HR Primidone take 3 tablets 270tabs You S. 50mg Tablets (150 mg) by mouth DO Danny FACC at bedtime Pramipexole take 2 at bedtime Amaris, Dihydrochloride Veronica, LOOM FIXER HELPER 1mg Tablets Nitrofurantoin Take 1 Capsule By [...] Injection Technetium TC 99M You Delgado, DO [facility] 03/25/2018 Tetrofosmin, Per Unit Dose Up To 40 Millicuries Injection Immunizations CPT Code Status Date Vaccine Lot # [id number] Given 06/28/1997 Flu Vaccine Vital Signs Date Vital Result Comment 08/16/2019 4:37pm Height 60 inches 5'0" Weight 239.00 lb Heart Rate 71 /min BP Systolic 132 mmHg BP Diastolic 88 mmHg Body Temperature 97.2 F Pain Level 8 BMI (Body Mass Index) 46.7 kg/m2 05/25/2019 3:44pm Height 60 inches 5'0" Weight 239.00 lb Heart Rate 78 /min BP Systolic 122 mmHg BP Diastolic 72 mmHg Respiratory Rate 18 /min Body Temperature 98.0 F Pain Level 0 BMI (Body Mass Index) 46.7 kg/m2 Results Test Acquired Date Facility Test Result H/L Range Note Laboratory test 08/08/2019 [facility] Legionella SEE RESULT [address] [place] [address] [phone] Influenza A & B 08/08/2019 [facility] Flu AB (SEE NOTE) [address] [place] [address] [phone] Influenza A Molecular NEGATIVE Negative Influenza B Molecular NEGATIVE Negative 3 Laboratory test 08/08/2019 [facility] Lactic Acid 1.3 mmol/L Normal 0.5-2.0 [address] [place] [address] [phone] CBC Auto Diff 08/08/2019 [facility] White Blood 10.9 High 3.5- 10.[address] Count 10^3/[place] [address] [phone] Red Blood Count 3.12 10^6/uL Low 3.70-4.87 [...] Blood Cells % 0.0 Basic Metabolic 08/08/2019 [facility] Sodium 133 mmol/L Low 135-145 Panel [address] [place] [address] [phone] Potassium 4.1 mmol/L Normal 3.5-5.0 Chloride 97 mmol/L Low 101-111 Co2 Carbon Dioxide 24 mmol/L Normal 22-32 Anion Gap 12 mmol/L High 2-11 Glucose 180 mg/dL High 70-100 Blood Urea Nitrogen 59 mg/dL High 6-24 Creatinine 2.49 mg/dL High 0.51-0.95 BUN/Creatinine Ratio 23.7 High 8-20 Calcium 9.0 mg/dL Normal 8.6-10.3 Egfr Non- 18.7 >60 Egfr 22.6 >60 5 Laboratory test 08/08/2019 [facility] C Reactive 177.86 mg/L High <8.[address] [place] [address] [phone] Urinalysis 08/08/2019 [facility] Urine Color Yellow Profile [address] [place] [address] [phone] Urine Appearance Clear Urine Specific [place] 1.014 Normal 1.010-1.030 Urine pH 5.0 Normal [...] Casts Present Abnormal Absent Laboratory test 08/08/2019 [facility] Erythrocyte Sed 72 mm/Hr High 0-[address] [place] [address] [phone] Urine Culture And 08/08/2019 [facility] Urine Culture SEE RESULT [address] [place] [address] [phone] Laboratory test 08/08/2019 [facility] Blood Culture SEE RESULT [address] [place] [address] [phone] 1 SEE RESULT BELOW Name: LISETHJOCELYNE BENITEZ Rafaela : [address]: Que Jay MD Acct: [id number] Unit: [id number] AGE: 78 Location: ED Re08/08/19 SEX: F Status: REG ER SPEC: [id number] OSCAR: 08/08/[address] [facility] [address]: Renetta Pagan [employer] ADMINISTRATOR REQ: [id number] RECD: 08/08/19 STATUS: FRANKI DE JESUS DR: You Umana MD _ SOURCE: URINE [...] as applicable. Strep. Pneumonia Urine Antigen Final 08/08/192153 ML Organism 1 Negative S. pneumo Antigen Antigen testing by enzyme immunoassay. As with all diagnostic procedures, the laboratory results obtained should be used in conjunction with other clinical information available to the physician, including confirmation by another method, as applicable. * ML - Main Lab . END OF REPORT DEPARTMENT OF PATHOLOGY, [address] [place] [address] Ramos Durand M.D. Director [facility] # [id number] 2 Suboptimal collection technique may reduce sensitivity of test. Refer to the [facility] Test Catalog for collection information: [email or web address] As with all diagnostic procedures, the laboratory results obtained should be used in conjunction with other clinical information available to the physician, including confirmation by another method, as applicable. 3 Medication Assistant: [id number] 4 [facility] Severe Sepsis and Septic Shock Management [...] of blood. 7 SEE RESULT BELOW Name: JOCELYNE MARTIN Rafaela : [address]: Capri Elliott MD Acct: [id number] Unit: [id number] AGE: 78 Location: [place] [address] Re08/09/19 SEX: F Status: ADM IN SPEC: [id number] OSCAR: 08/08/[address] [facility] [address]: Que Jay MD REQ: [id number] RECD: 08/08/19 STATUS: COMP KM DR: You Bains MD _ SOURCE: URINE SPDESC: ORDERED: Urine Culture Procedure Result Reported Site Urine Culture Final 08/09/19- 1400 ML No Growth (<1,000 CFU/mL) * ML - Main Lab . END OF REPORT DEPARTMENT OF PATHOLOGY, [address] [place] [address] Ramos Durand M.D. Director [facility] # [id number] SEE RESULT BELOW Name: JOCELYNE MARTIN : [address]: Capri Elliott MD Acct: [id number] Unit: [id number] AGE: 78 Location: [facility] 412- Re08/09/19 Dis: 08/13/19 SEX: F Status: DIS IN SPEC: [id number] OSCAR: 08/08/[address] [facility] [address]: Que Jay MD REQ: [id number] RECD: 08/08/19 STATUS: FRANKI DE JESUS DR: You Bains MD _ SOURCE: BLOOD,VENO SPDES: ORDERED: Blood Cult Procedure Result Reported Site Aerobic Culture Bottle Final 08/13/19- 1827 ML No Growth Day 5 Anaerobic Culture Bottle Final 08/13/19- 1827 ML No Growth Day 5 * ML - Main Lab . END OF REPORT DEPARTMENT OF PATHOLOGY, [address] [place] [address] Ramos Durand M.D. Director [facility] # [id number] Procedures Date Code Description Status 08/16/2019 Inject/Drain Joint/Bursa Major W/O US Completed 05/25/2019 62351 Inject/Drain Joint/Bursa Small W/O US Completed 05/25/2019 55852 Inject/Drain Joint/Bursa Small W/O US Completed 04/23/2019 51447 EKG Tracing & Interpretation Completed 08/06/2016 618228394 Diabetic Retinal Eye Exam Completed Medical Devices Description No Information Available Encounters Type Date Location Provider Dx Diagnosis Office Visit 08/09/2019 [facility] Bryson Umana, M71.061 [facility] 05/[facility]2019 [facility] Bryson Mcgarry, M19.042 Primary 3:00p at [place] MD osteoarthritis, left hand M19.041 Primary osteoarthritis, right hand Office Visit 05/11/2019 3:00p [facility] Avinash Romero D64.89 Other [facility] [place] Office Visit 05/06/2019 3:45p [place]/Laurie Duggan G25.0 Essential tremor Neurologic Serv Jeane Hurst [facility] G44.229 Chronic tension-type headache, not intractable I20.8 Other forms of angina pectoris Office Visit 04/23/2019 11:15a Cardiology You Duggan R60.0 Localized edema [facility] 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king salmon coronary artery w/o ang pctrs D64.9 Anemia, [...] peptic ulcer disease Office Visit 04/13/2019 3:00p [place] Donna Romero D64.9 [facility] [place] R53.83 Other fatigue 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king salmon coronary artery w/o ang pctrs 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 graft Office Visit 04/12/2019 3:15p [facility] Marisela Driver, M25.562 Pain in left at [place] M.D. knee M25.561 Pain in right knee M25.462 Effusion, left knee M25.461 Effusion, right knee M17.0 Bilateral primary osteoarthritis of knee M25.511 Pain in right shoulder Office 03/17/2019 [facility] Agnes K21.0 Gastro-esophageal Visit 4:00p Veronica reflux disease with RODRIGO Boss esophagitis Assessments Date Code Description Provider 08/16/2019 M71.061 Abscess of bursa, right knee Mp Manzanares MD 08/09/2019 M71.061 Abscess of bursa, right knee Bryson Umana M.D. 08/09/2019 M71.061 Abscess of bursa, right knee Bryson Umana M.D. 05/25/2019 M19.042 Primary osteoarthritis, left hand Bryson Mcgarry MD 05/25/2019 M19.041 Primary osteoarthritis, right hand Bryson Mcgarry MD 05/11/2019 D64.89 Other specified anemias Avinash Romero M.D. 05/06/2019 G25.0 Essential tremor Jaziel Hurst M.D. 05/06/2019 G44.229 Chronic tension-type headache, not Jaziel Hurst M.D. intractable 05/06/2019 I20.8 Other forms of angina pectoris Jaziel Hurst M.D. 04/23/2019 R60.0 Localized edema You Delgado DO [facility] 04/23/2019 I25.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 king salmon You Delgado, DO [facility] coronary artery with 04/23/2019 D64.9 Anemia, unspecified You Delgado DO [facility] 04/23/2019 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 graft You Delgado DO [facility] 04/23/2019 I48.0 Paroxysmal atrial fibrillation You Delgado DO [facility] 04/23/2019 D64.89 Other specified anemias You Delgado DO [facility] 04/23/2019 I50.32 Chronic diastolic (congestive) heart You Delgado DO [facility] failure 04/23/2019 N18.9 Chronic kidney disease, unspecified You Mans[place]andi Danny, DO [facility] 04/23/2019 G25.0 Essential tremor You Delgado, [facility] 04/23/2019 D47.1 Chronic myeloproliferative disease You Delgado, DO [facility] 04/23/2019 I10 Essential (primary) hypertension You Delgado, [facility] 04/23/2019 E78.5 Hyperlipidemia, unspecified You Delgado, [facility] 04/23/2019 I25.2 Old myocardial infarction You Delgado, DO [facility] 04/23/2019 G47.33 Obstructive sleep apnea (adult) You Delgado [facility] (pediatric) 04/23/2019 Z87.11 Personal history of peptic ulcer You MansfieldKandi Danny [facility] disease 04/13/2019 D64.9 Anemia, unspecified Avinash Romero M.D. 04/13/2019 R53.83 Other fatigue Avinash Romero M.D. 04/13/2019 I25.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 king salmon Avinash Romero M.D. coronary artery with 04/13/2019 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 graft Avinash Romero M.D. 04/12/2019 M25.562 Pain in left knee Marisela [...] Boss NP esophagitis Plan of Treatment Future Appointment(s):11/22/2019 12:30 pm - Nelli Willett MD at [facility]08/19/2019 10:00 am - Bryson Umana M.D. at [facility] at [place]2311/16/2019 4:10 pm - Kris Merrill MD at [facility] Dermatology AT [place]78/27/2020 - Mp Manzanares, MDM71.061 Abscess of bursa, right kneeNew Medication:Doxycycline Monohydrate 100 mg - Take one capsule every 12 hours for 5 daysFollow up:Follow up: Keep appt with Dr. Umana this week Functional Status Description No Information Available Mental Status Description No Information Available Referrals Description No Information Available
--- OUTSIDE RECORDS SUMMARY | 2019-08-24 12:30 | XMS REPORT | Continuity of Care Document ---
:1940 External Reference #:[id number] Author Name Bryson Umana M.D. (transmitted by agent of provider Martine Waldrop) Address [address] [place] [id number] Care Team Providers Name Role Phone Roger Giron MD - Internal Care Team Information Headlight Adjuster Medicine Veronica Glez FNP - Family Care Team Information Headlight Adjuster Manas Villeda MD - Family Care Team Information Headlight Adjuster [phone] Medicine Estelita Brown MD - Vascular Surgery Care Team Information Headlight Adjuster Arnold Holguin MD - Hospitalist Care Team Information Headlight Adjuster [phone] Problems Active Problems Provider Date Restless legs Jaziel Hurst M.D. Onset: 04/06/2015 Dyspnea Sharon Peter MD Onset: 06/10/2016 Asthma without status asthmaticus Sharon Peter MD Onset: 06/10/2016 Disturbance in sleep behavior Sharon Peter MD Onset: 06/10/2016 Morbid obesity Sharon Peter MD Onset: 06/10/2016 Encounter for planned postprocedural Bennie Herron M.D., [facility], [facility] Onset: wound closure Angina pectoris Bryson [...] disease of Lennox Singh M.D. Onset: 01/24/2018 [place] coronary artery without angina pectoris Contusion of [...] disease of Arnold Holguin MD Onset: 07/07/2018 [place] coronary artery with unspecified angina pectoris Localized, primary osteoarthritis Marisela Driver M.D. 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 ER day Delgado, DO FACC 25mg Tablets ER 24HR Primidone [...] Injection Technetium TC 99M You Delgado, DO [facility] 03/25/2018 Tetrofosmin, Per Unit Dose Up To 40 Millicuries Injection Immunizations CPT Code Status Date Vaccine Lot # [id number] Given 06/28/1997 Flu Vaccine Vital Signs Date Vital Result Comment 08/19/2019 10:31am Height 60 inches 5'0" Weight 235.00 lb Heart Rate 60 /min BP Systolic 138 mmHg BP Diastolic 92 mmHg Respiratory Rate 12 /min Body Temperature 97.2 F Pain Level 8 BMI (Body Mass Index) 45.9 kg/m2 08/16/2019 4:37pm Height 60 inches 5'0" Weight 239.00 lb Heart Rate 71 /min BP Systolic 132 mmHg BP Diastolic 88 mmHg Body Temperature 97.2 F Pain Level 8 BMI (Body Mass Index) 46.7 kg/m2 Results Test Acquired Date Facility Test Result H/L Range Note Laboratory test 08/08/2019 [facility] Legionella SEE RESULT [address] [place] [address] [phone] Influenza A & B 08/08/2019 [facility] Flu AB (SEE NOTE) [address] [place] [address] [phone] Influenza A Molecular NEGATIVE Negative Influenza B Molecular NEGATIVE Negative 3 Laboratory test 08/08/2019 [facility] Lactic Acid 1.3 mmol/L Normal 0.5-2.0 [address] [place] [address] [phone] CBC Auto Diff 08/08/2019 [facility] White Blood 10.9 High 3.5- 10.[address] Count 10^3/[place] [address] [phone] Red Blood Count 3.12 10^6/uL Low 3.70-4.87 [...] Blood Cells % 0.0 Basic Metabolic 08/08/2019 [facility] Sodium 133 mmol/L Low 135-145 Panel [address] [place] [address] [phone] Potassium 4.1 mmol/L Normal 3.5-5.0 Chloride 97 mmol/L Low 101-111 Co2 Carbon Dioxide 24 mmol/L Normal 22-32 Anion Gap 12 mmol/L High 2-11 Glucose 180 mg/dL High 70-100 Blood Urea Nitrogen 59 mg/dL High 6-24 Creatinine 2.49 mg/dL High 0.51-0.95 BUN/Creatinine Ratio 23.7 High 8-20 Calcium 9.0 mg/dL Normal 8.6-10.3 Egfr Non- 18.7 >60 Egfr 22.6 >60 5 Laboratory test 08/08/2019 [facility] C Reactive 177.86 mg/L High <8.[address] [place] [address] [phone] Urinalysis 08/08/2019 [facility] Urine Color Yellow Profile [address] [place] [id number] [phone] Urine Appearance Clear Urine Specific [place] 1.014 Normal 1.010-1.030 Urine pH 5.0 Normal [...] Casts Present Abnormal Absent Laboratory test 08/08/2019 [facility] Erythrocyte Sed 72 mm/Hr High 0-[address] [place] [address] [phone] Urine Culture And 08/08/2019 [facility] Urine Culture SEE RESULT [address] [place] [address] [phone] Laboratory test 08/08/2019 [facility] Blood Culture SEE RESULT [address] [place] [address] [phone] 1 SEE RESULT BELOW Name: JOCELYNE MARTIN : [address]: Que Jay MD Acct: [id number] Unit: [id number] AGE: 78 Location: ED Re08/08/19 SEX: F Status: REG ER SPEC: [id number] OSCAR: 08/08/[address] [facility] [address]: Renetta Pagan NP REQ: [id number] RECD: 08/08/19 STATUS: COMP [facility] DR: You Umana MD _ SOURCE: URINE [...] another method, as applicable. * ML - [facility] . END OF REPORT DEPARTMENT OF PATHOLOGY, [address] [address] Ramos Durand M.D. Director [facility] # [id number] 2 Suboptimal collection technique may reduce sensitivity of test. Refer to the [employer] Test Catalog for collection information: [email or web address] As with all diagnostic procedures, the laboratory results obtained should be used in conjunction with other clinical information available to the physician, including confirmation by another method, as applicable. 3 Degreasing Solution Mixer: [id number] 4 [facility] Severe Sepsis and Septic Shock Management [...] 7 SEE RESULT BELOW Name: JOCELYNE MARTIN : [address]: Capri Elliott MD Acct: [id number] Unit: [id number] AGE: 78 Location: [place] [address] Re08/09/19 SEX: F Status: ADM IN SPEC: [id number] OSCAR: 08/08/19-[address]: Que Jay MD REQ: [id number] RECD: 08/08/19 STATUS: COMP [facility] DR: You Bains MD _ SOURCE: URINE SPDESC: ORDERED: Urine Culture Procedure Result Reported Site Urine Culture Final 08/09/19- 1400 ML No Growth (<1,000 CFU/mL) * ML - Main Lab . END OF REPORT DEPARTMENT OF PATHOLOGY, [address] [place] [address] Ramos Durand M.D. Director [facility] # [id number] 8 SEE RESULT BELOW Name: LISETHFARSHAD BENITEZMARIOLA Russo : [address]: Capri Elliott MD Acct: [id number] Unit: [id number] AGE: 78 Location: [place] [address] Re08/09/19 Dis: 08/13/19 SEX: F Status: DIS IN SPEC: [id number] OSCAR: 08/08/[address]: Que Jay MD REQ: [id number] RECD: 08/08/19 STATUS: [facility] DR: You Bains MD _ SOURCE: BLOOD,VENO SPDES: ORDERED: Blood Cult Procedure Result Reported Site Aerobic Culture Bottle Final 08/13/19- 1827 ML No Growth Day 5 Anaerobic Culture Bottle Final 08/13/19- 1827 ML No Growth Day 5 * ML - Main Lab . END OF REPORT DEPARTMENT OF PATHOLOGY, [address] [address] Ramos Durand M.D. Director [facility] # [id number] Procedures Date Code Description Status 08/09/2019 13362 EKG, Interpretation Only Completed 05/25/2019 78890 Inject/Drain Joint/Bursa Small W/O US Completed 05/25/2019 46779 Inject/Drain Joint/Bursa Small W/O US Completed 04/23/2019 64564 EKG Tracing & Interpretation Completed 08/06/2016 099800342 Diabetic Retinal Eye Exam Completed Medical Devices Description No Information Available Encounters Type Date Location Provider Dx Diagnosis Office Visit 08/12/2019 [facility] Capri Connolly, N17.9 Acute kidney 9:08a Asscarli dickinson M.D. failure, Hospitalists unspecified I48.0 Paroxysmal atrial fibrillation Office Visit 08/11/2019 9:04a [facility] Chaitanya Forte L72.9 Follicular cyst of For Infectious Jeane Beltrán the skin and Diseases subcutaneous tissue, unsp M25.561 Pain in right knee Office Visit 08/11/2019 9:08a [facility] Capri N17.9 Acute kidney Assoccarli M.D. failure, Hospitalists unspecified I48.0 Paroxysmal atrial fibrillation Office Visit 08/10/2019 [facility] Fawn Ramos L03.115 Cellulitis of 9:03a For Infectious Benson, [place] right lower limb Diseases N18.3 Chronic kidney disease, stage 3 (moderate) I89.0 Lymphedema, not elsewhere classified Office Visit 08/10/2019 9:07a [facility] Capri N17.9 Acute kidney Asscarli dickinson M.D. failure, Hospitalists unspecified I48.0 Paroxysmal atrial fibrillation 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[place] coronary artery w/o ang pctrs Office Visit 08/09/2019 9:07a [facility] Capri N17.9 Acute kidney Assoccarli M.D. failure, Hospitalists unspecified I48.0 Paroxysmal atrial fibrillation 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[place] coronary artery w/o ang pctrs Office Visit 08/09/2019 [facility] Bryson M71.061 Abscess of bursa, 12:10p at Marion Umana M.D. 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, right hand Office Visit 05/11/2019 3:00p [facility] Avinash Romero, D64.89 Other specified [facility] [place] Office Visit 05/06/2019 3:45p [place]/Laurie Duggan G25.0 Essential tremor Neurologic Serv Jeane Hurst [facility] G44.229 Chronic tension-type headache, not intractable I20.8 Other forms of angina pectoris Office Visit 04/23/2019 11:15a Cardiology You Duggan R60.0 Localized edema [facility] FACC 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[place] coronary artery w/o ang pctrs D64.9 Anemia, [...] peptic ulcer disease Office Visit 04/13/2019 3:00p [facility] Avinash Romero, D64.9 Anemia, [facility] unspecified [place] R53.83 Other fatigue 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 08/09/2019 M71.061 Abscess of bursa, right knee Bryson Umana M.D. 08/09/2019 I48.0 Paroxysmal atrial fibrillation Capri Connolly M.D. 08/09/2019 M71.061 Abscess of bursa, right knee Bryson Umana M.D. 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 You Delgado, DO [facility] graft 04/23/2019 I48.0 Paroxysmal atrial fibrillation You Delgado, DO [facility] 04/23/2019 D64.89 Other specified anemias You Delgado, DO [facility] 04/23/2019 I50.32 Chronic diastolic (congestive) heart You Delgado, DO [facility] failure 04/23/2019 N18.9 Chronic kidney disease, unspecified You Delgado DO [facility] 04/23/2019 G25.0 Essential tremor You Delgado, DO [facility] 04/23/2019 D47.1 Chronic myeloproliferative disease You Delgado, DO [facility] 04/23/2019 I10 Essential (primary) hypertension You Delgado, DO [facility] 04/23/2019 E78.5 Hyperlipidemia, unspecified You Delgado, DO [facility] 04/23/2019 I25.2 Old myocardial infarction You Delgado, DO [facility] 04/23/2019 G47.33 Obstructive sleep apnea (adult) You Delgado [facility] (pediatric) 04/23/2019 Z87.11 Personal history of peptic ulcer You Delgado DO [facility] disease 04/13/2019 D64.9 Anemia, unspecified Avinash Romero M.D. 04/13/2019 R53.83 Other fatigue Avinash Romero M.D. 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 [place] coronary artery with 04/13/2019 Z95.1 Presence of [...] Boss NP esophagitis Plan of Treatment Future Appointment(s):08/25/2019 4:00 pm - Bryson Umana M.D. at [facility] at [place]36/26/2020 10:30 am - Sharon Peter MD at [facility]11/22/2019 12:30 pm - Nelli Willett MD at [facility]11/16/2019 4:10 pm - Kris Merrill MD at [facility] Dermatology AT [facility]69/30/2020 - Bryson Umana M.D.M71.061 Abscess of bursa , right kneeNew Medication:Doxycycline Monohydrate 100 mg - take one capsule twice a day x 7 days.Follow up:Follow up: 1 week with nikunj Rodrigues.89 Encounter for other orthopedic aftercare Functional Status Description No Information Available Mental Status Description No Information Available Referrals Description No Information Available
--- OUTSIDE RECORDS SUMMARY | 2019-08-24 12:30 | XMS REPORT | Continuity of Care Document ---
:1940 External Reference #:[id number] Author Name Veronica Glez, DIRECTOR ONCOLOGY Address [address] [place] [address] Care Team Providers Name Role Phone Manas Villeda MD - Family Medicine Care Team Information Nuclear Licensing Engineer Luana Schwarz - Obstetrics & Care Team Information Nuclear Licensing Engineer [phone] [facility] - Care Team Information Nuclear Licensing Engineer [phone] Gastroenterology Cielo Cook MD - Hematology & Care Team Information Nuclear Licensing Engineer [facility] - Pain Care Team Information Nuclear Licensing Engineer [phone] Radames Lee MD - Orthopaedic Care Team Information Nuclear Licensing Engineer Surgery of the Spine Avinash Romero MD - Hematology Care Team Information Nuclear Licensing Engineer [phone] Brian Smallwood MD - Ophthalmology Care Team Information Nuclear Licensing Engineer [facility] Care Team Information Nuclear Licensing Engineer [phone] [facility] Care Team Information Nuclear Licensing Engineer [phone] Problems Active Problems Provider Date Hypothyroidism Manas [...] M.D. Onset: 04/05/2019 Atherosclerotic heart disease of [place] Lincoln Swartz M.D. Onset: 2018 coronary artery [...] a 60tabs Veronica 12/21/2018 25mg day Amaris, DIRECTOR ONCOLOGY Tablets ER 24HR Hydrocodone-Acetaminophe 2 tablets by mouth 40tabs Renetta Gutierrez 11/13/2018 n every 6 hours as RODRIGO [place] 10-325mg Tablets needed pain Plavix 1 by mouth every 90tabs Manas Villeda, 03/16/2018 75mg Tablets day M.D. Levothyroxine Sodium Take 1 Tablet Every 90tabs Veronica 08/29/2017 175mcg Day [facility], [facility] Tablets Levocetirizine Take 1 Tablet Every 90tabs Veronica 07/12/2014 Dihydrochloride Day [facility], [facility] 5mg Tablets Omeprazole 1 by mouth twice a 180caps K21.9 Veronica 05/02/[address] day [facility], [facility] Ezetimibe 1 by mouth every Unknown 10mg Tablets day Melatonin 1 cap by mouth Unknown 10mg Capsules every day at bedtime Amlodipine Besylate take 2 tablets 180tabs [facility]as [facility] 5mg every day M.D. Tablets Pramipexole Take 2 Tablets 180tabs Veronica Dihydrochloride Every Night AT [facility] 1mg Tablets Bedtime Breo Ellipta 1 inhalation once 60units Veronica 100-25mcg/Inh per day, rinse [facility] Aerosol Amiodarone HCL 1 by mouth every 90tabs Veronica 100mg Tablets day [facility], [facility] Torsemide take 2 pill a day Unknown 10mg Tablets for fluid Vitamin B12 100mcg qd Unknown Primidone Take 3 Tablets 270tabs Manas A. Jamielow, 50mg Tablets Every Night AT M.D. Bedtime Shark Cartilage 2 po tid Unknown 500mg Capsules Vitamin D 2 by mouth every Unknown 1000Unit Tablets day Fluticasone Propionate Use 2 Sprays In 48units Veronica Each Nostril AT [facility] 50mcg/Act Suspension Bedtime Calcium/Mag 1 po qd 30units Unknown Chewtabs Senna S 1 by mouth twice a 180tabs Veronica 8.6-50mg Tablets day [facility] Multivitamin With Folic 1 po qd supplement 100tabs Unknown Acid Tablets Colace 2 by mouth twice a 540caps Veronica 100mg Capsules day for bowels Amaris, DIRECTOR ONCOLOGY Albuterol Sulfate use four times a 180ml Veronica (2.5mg/3ML) day as needed Amaris, DIRECTOR ONCOLOGY 0.083% Nebulizer Ventolin HFA 2 puffs every 6 3units Veronica 108(90Base) hours as needed Amaris, DIRECTOR ONCOLOGY mcg/Act Aerosol History Medications Keflex 1 by mouth 14caps Veronica 04/20/2019 - 500mg Capsules twice a day x 7 Amaris, DIRECTOR ONCOLOGY 05/04/2019 days Keflex 1 by mouth 14caps Veronica 04/20/2019 - 500mg Capsules twice a day x 7 Amaris, DIRECTOR ONCOLOGY 05/04/2019 days Nitrofurantoin Monohyd 1 by mouth two 14caps Lnicoln KenyattaKandi Swartz, 2018 - Macro times a day M.D. 05/05/2019 100mg Capsules Pyridium 1 by mouth 20tabs Lincoln Swartz, 04/02/2019 - 100mg Tablets three times a M.D. 04/03/2019 day as needed Gabapentin take 1 capsule 90caps G89.4 Veronica 03/25/2019 - 300mg Capsules by mouth three Amaris, DIRECTOR ONCOLOGY 07/30/2019 times a day as needed for pain Immunizations CPT Code Status Date Vaccine Lot # [id number] Given 04/05/2019 High-Dose, Influenza Virus Vacccine-fluzone 65 and [id number] older Given 05/15/2018 High-Dose, Influenza Virus Vacccine-fluzone 65 and [id number] older Given 04/10/2017 High-Dose, Influenza Virus Vacccine-fluzone 65 and [id number] older 45420 Given 12/24/2016 Tdap Tetanus, W Pertussis [id number] 42590 Given 12/24/2016 Pneumococcal Conjugate Vacc-13 [id number] 45781 Given 04/10/2016 Influenza Vac, Quadrivalent, Slit Virus, Im [id number] Given 05/08/2015 Pneumococcal Immunization [id number] 03599 Given 05/08/2015 Influenza Vac, Quadrivalent, Slit Virus, Im [id number] Vital Signs Date Vital Result Comment 08/19/2019 11:28am BP Systolic 138 mmHg BP Diastolic 76 mmHg Heart Rate 80 /min Body Temperature 98.1 F Respiratory Rate 20 /min O2 % BldC Oximetry 94 % Ra Weight 235.00 lb per pt 08/06/2019 3:28pm BP Systolic 140 mmHg BP Diastolic 60 mmHg Heart Rate 64 /min Body Temperature 98.4 F Height 61 inches 5'1" Weight 230.00 lb BMI (Body Mass Index) 43.5 kg/m2 Results Test Acquired Date Facility Test Result H/L Range Note Laboratory test 08/08/2019 [facility] Legionella Urine SEE RESULT 1 finding Antigen BELOW Influenza A & B 08/08/2019 [facility] Flu AB Disclaimer (SEE NOTE) 2 Request Influenza A Molecular NEGATIVE Negative Influenza B Molecular NEGATIVE Negative 3 Laboratory test 08/08/2019 [facility] Lactic Acid 1.3 mmol/L Normal 0.5-2.0 4 finding CBC Auto Diff 08/08/2019 [facility] White Blood Count 10.9 10^3/uL High 3.5- 10.8 Red Blood Count 3.12 10^6/uL Low 3.70-4.87 [...] Red Blood Cells % 0.0 Basic Metabolic Panel 08/08/2019 [facility] Sodium 133 mmol/L Low 135-145 Potassium 4.1 mmol/L Normal 3.5-5.0 Chloride 97 mmol/L Low 101-111 Co2 Carbon Dioxide 24 mmol/L Normal 22-32 Anion Gap 12 mmol/L High 2-11 Glucose 180 mg/dL High 70-100 Blood Urea Nitrogen 59 mg/dL High 6-24 Creatinine 2.49 mg/dL High 0.51-0.95 BUN/Creatinine Ratio 23.7 High 8-20 Calcium 9.0 mg/dL Normal 8.6-10.3 Egfr Non- 18.7 >60 Egfr 22.6 >60 5 Laboratory test finding 08/08/2019 [facility] C Reactive Protein 177.86 mg/L High <8.01 Urinalysis Profile 08/08/2019 [facility] Urine Color Yellow Urine Appearance Clear Urine Specific [place] 1.014 Normal 1.010-1.030 Urine pH 5.0 Normal [...] Casts Present Abnormal Absent Laboratory test 08/08/2019 [facility] Erythrocyte Sed 72 mm/Hr High 0-29 finding Rate Urine Culture And 08/08/2019 [facility] Urine Culture SEE RESULT 7 Sensitivities BELOW Laboratory test 08/08/2019 [facility] Blood Culture SEE RESULT 8 finding BELOW CBC Auto Diff 08/06/2019 [facility] White Blood Count 9.7 10^3/uL Normal 3.5- 10.8 Red Blood Count 3.39 10^6/uL Low 3.70-4.87 Hemoglobin 11.3 g/dL Low 12.0-16.0 Hematocrit 33 % Low 35-47 Mean Corpuscular Volume 97 fL Normal 80-97 Mean Corpuscular Hemoglobin 33 pg High 27-31 Mean Corpuscular HGB Conc 35 g/dL Normal 31-36 Red Cell Distribution Width 13 % Normal 10-15 Platelet Count 216 10^3/uL Normal 150-450 Mean Platelet Volume 7.6 fL Normal 7.4-10.4 Abs Neutrophils 6.9 10^3/uL Normal 1.5-7.7 Abs Lymphocytes 1.6 10^3/uL Normal 1.0-4.8 Abs Monocytes 0.7 10^3/uL Normal 0-0.8 Abs Eosinophils 0.4 10^3/uL Normal 0-0.6 Abs Basophils 0.1 10^3/uL Normal 0-0.2 Abs Nucleated RBC 0.0 10^3/uL Granulocyte % 71.3 % Lymphocyte % 16.9 % Monocyte % 6.9 % Eosinophil % 4.3 % Basophil % 0.6 % Nucleated Red Blood Cells % 0.1 Comp Metabolic Panel 08/06/2019 [facility] Sodium 138 mmol/L Normal 135-145 Potassium 4.1 mmol/L Normal 3.5-5.0 Chloride 102 mmol/L Normal 101-111 Co2 Carbon Dioxide 27 mmol/L Normal 22-32 Anion Gap 9 mmol/L Normal 2-11 Glucose 112 mg/dL High 70-100 Blood Urea Nitrogen 50 mg/dL High 6-24 Creatinine 1.42 mg/dL High 0.51-0.95 BUN/Creatinine Ratio 35.2 High 8-20 Calcium 9.5 mg/dL Normal 8.6-10.3 Total Protein 7.4 g/dL Normal 6.4-8.9 Albumin 4.0 g/dL Normal 3.2-5.2 Globulin 3.4 g/dL Normal 2-4 Albumin/Globulin Ratio 1.2 Normal 1-3 Total Bilirubin 0.30 mg/dL Normal 0.2-1.0 Alkaline Phosphatase 107 U/L High 34-104 Alt 11 U/L Normal 7-52 Ast 18 U/L Normal 13-39 Egfr Non- 35.7 >60 Egfr 43.2 >60 9 Laboratory test finding 08/06/2019 [facility] C Reactive Protein 58.65 mg/L High <8.01 1 SEE RESULT BELOW Name: JOCELYNE MARITN Rafaela : [address]: Que Jay MD Acct: [id number] Unit: [id number] AGE: 78 Location: ED Re08/08/19 SEX: F Status: REG ER SPEC: [id number] OSCAR: 08/08/[address] [facility] [address]: Renetta jE WALLACE REQ: [id number] RECD: 08/08/19 STATUS: FRANKI DE JESUS DR: [...] . END OF REPORT DEPARTMENT OF PATHOLOGY, [address] [place] [address] Ramos Durand M.D. Director [facility] # [id number] 2 Suboptimal collection technique may reduce sensitivity of test. Refer to the [facility] Test Catalog for collection information: [email or web address] As with all diagnostic procedures, the laboratory results obtained should be used in conjunction with other clinical information available to the physician, including confirmation by another method, as applicable. 3 Credit Reporting Clerk: [id number] [address] [facility] Severe Sepsis and Septic Shock Management Bundle [...] of blood. 7 SEE RESULT BELOW Name: LISETHJOCELYNE A : [address]: Capri Elliott MD Acct: [id number] Unit: [id number] AGE: 78 Location: [place] [address] Re08/09/19 SEX: F Status: ADM IN SPEC: [id number] OSCAR: 08/08/[address]: Que Jay MD REQ: [id number] RECD: 08/08/19 STATUS: FRANKI DE JESUS DR: You Bains MD _ SOURCE: URINE SPDESC: ORDERED: Urine Culture Procedure Result Reported Site Urine Culture Final 08/09/19- 1400 ML No Growth (<1,000 CFU/mL) * ML - Main Lab . END OF REPORT DEPARTMENT OF PATHOLOGY, [address] [place] [address] Ramos Durand M.D. Director [facility] # [id number] 8 SEE RESULT BELOW Name: JOCELYNE MARTIN : [address]: Capri Elliott MD Acct: [id number] Unit: [id number] AGE: 78 Location: [facility] 412- Re08/09/19 Dis: 08/13/19 SEX: F Status: DIS IN SPEC: [id number] OSCAR: 08/08/[address]: Que Jay MD REQ: [id number] RECD: 08/08/19 STATUS: FRANKI DE JESUS DR: You Bains MD _ SOURCE: BLOOD,VENO SPDESC: ORDERED: Blood Cult Procedure Result Reported Site Aerobic Culture Bottle Final 08/13/19- 1827 ML No Growth Day 5 Anaerobic Culture Bottle Final 08/13/19- 1827 ML No Growth Day 5 * ML - Main Lab . END OF REPORT DEPARTMENT OF PATHOLOGY, [address] [place] [address] Ramos Durand M.D. Director [facility] # [id number] 9 Because ethnic data is not always [...] (or dialysis) Procedures Date Code Description Status 01/20/2017 [id number] Mammogram Completed 07/27/2015 [id number] Mammogram Completed 05/20/2014 [id number] Mammogram Completed 09/18/2013 [id number] Colonoscopy Completed Medical Devices Description No Information Available Encounters Type Date Location Provider Dx Diagnosis Office Visit 08/06/2019 [facility] Delfina Maxwell M79.605 Pain in left leg 3:00p RODRIGO Collazo M79.604 Pain in right leg R60.0 Localized edema Office Visit 07/30/2019 1:45p Main Office Veronica Glez M79.605 Pain in left DIRECTOR ONCOLOGY leg G89.4 Chronic pain syndrome M17.0 Bilateral primary osteoarthritis of knee K59.03 Drug induced constipation F34.1 Dysthymic disorder Office Visit 05/05/2019 3:30p [facility] Veronica R60.0 Localized edema JOSE MARIA GlezP M25.511 Pain in right shoulder M17.0 Bilateral primary osteoarthritis of knee 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[place] coronary artery w/o ang pctrs G89.4 Chronic pain syndrome K59.03 Drug induced constipation F34.1 Dysthymic disorder Office Visit 04/05/2019 3:00p [facility] Lincoln Olivas Encounter for Jeane Swartz immunization R60.0 Localized edema M25.511 Pain in right shoulder M17.0 Bilateral primary osteoarthritis of knee 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[place] coronary artery w/o ang pctrs Office Visit 03/25/2019 1:45p [facility] Veronica M25.561 Pain in Amaris, DIRECTOR ONCOLOGY right knee M25.562 Pain in left knee G89.4 Chronic pain syndrome M25.511 Pain in right shoulder K59.03 Drug induced constipation M79.671 Pain in right foot M79.672 Pain in left foot K21.9 Gastro-esophageal reflux disease without esophagitis Assessments Date Code Description Provider 08/19/2019 M79.605 Pain in left leg Veronica Amaris, [facility] 08/19/2019 M79.604 Pain in right leg Veronica Amaris, [facility] 08/19/2019 R60.0 Localized edema Veronica Amaris, [facility] 08/19/2019 G89.4 Chronic pain syndrome Veronica Amaris, [facility] 08/19/2019 M17.0 Bilateral primary osteoarthritis of knee Veronica Amaris , [facility] 08/19/2019 K59.03 Drug induced constipation Veronica Amaris, [facility] 08/19/2019 J18.9 Pneumonia, unspecified organism Veronica Amaris, [facility] 08/06/2019 M79.605 Pain in left leg Delfina Collazo, [employer] 08/06/2019 M79.604 Pain in right leg Delfina Collazo, [employer] 08/06/2019 R60.0 Localized edema Delfina Collazo, [employer] 07/30/2019 M79.605 Pain in left leg Veronica Amaris, [facility] 07/30/2019 G89.4 Chronic pain syndrome Veronica Amaris, [facility] 07/30/2019 M17.0 Bilateral primary osteoarthritis of knee Veronica Amaris , [facility] 07/30/2019 K59.03 Drug induced constipation Veronica Amaris, [facility] 07/30/2019 F34.1 Dysthymic disorder Veronica Amaris, [facility] 05/05/2019 R60.0 Localized edema Veronica Amaris, [facility] 05/05/2019 M25.511 Pain in right shoulder Veronica Amaris, [facility] 05/05/2019 M17.0 Bilateral primary osteoarthritis of knee Veronica Amaris , [facility] 05/05/2019 I25.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 [place] [facility] , [facility] coronary artery without angina pectoris 05/05/2019 G89.4 Chronic pain syndrome Veronica Amaris, [facility] 05/05/2019 K59.03 Drug induced constipation Veronica Amaris, [facility] 05/05/2019 F34.[address] [facility], [facility] 04/05/2019 Z23 Encounter for immunization Lincoln Swartz M.D. 04/05/2019 R60.0 Localized edema Lincoln Swartz M.D. 04/05/2019 M25.511 Pain in right shoulder Lincoln Swartz M.D. 04/05/2019 M17.0 Bilateral primary osteoarthritis of knee Lincoln Swartz M.D. 04/05/2019 I25.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 [place] Lincoln Swartz M.D. coronary artery without angina pectoris 04/02/2019 N39.0 Urinary tract infection, site not specified Lincoln Swartz M.D. 03/25/2019 M25.561 Pain in right knee Veronica Amaris, [facility] 03/25/2019 M25.562 Pain in left knee Veronica Amaris, [facility] 03/25/2019 G89.4 Chronic pain syndrome Veronica Amaris, [facility] 03/25/2019 M25.511 Pain in right shoulder Veronica Amaris, [facility] 03/25/2019 K59.03 Drug induced constipation Veronica Amaris, [facility] 03/25/2019 M79.671 Pain in right foot Veronica Amaris, [facility] 03/25/2019 M79.672 Pain in left foot Veronica Jarrettcarmen [facility] 03/25/2019 K21.9 Gastro-esophageal reflux disease without VeronicaVY Feliciano esophagitis Plan of Treatment No Information Available Functional Status Description No Information Available Mental Status Description No Information Available Referrals Refer to Dr Reason for Referral Status Appt Date Nelli Willett MD Consult and treat back pain. Office note, Sent radiology reports, labs and triage faxed. [address] [address] [phone] Armando P[facility] & Lymphedema bilateral lower extremities- Scheduled 2018 [facility] [address] [place] [address] [place] [address] [phone] Bryson Mcgarry MD Bilateral hand pain ? injections jw Scheduled 2018 [facility] [address] [address] [phone] You Delgado MD for edema, congestive heart failure Scheduled 04/23/[address] [place] [address] [phone] Villa ALCOCER, Marisela knee pain , right shoulder pain Scheduled 04/26/2019 [facility] [address] [id number] [phone]
--- OUTSIDE RECORDS SUMMARY | 2019-08-24 12:30 | XMS REPORT | Continuity of Care Document ---
:1940 External Reference #:[id number] Author Name Zack Francis M.D. (transmitted by agent of provider Narcisa Bowles ) Address [address] [place] [id number] Care Team Providers Name Role Phone Roger Giron MD - Internal Care Team Information Generator Switchboard Operator [phone] Medicine Veronica Glez FNP - Family Care Team Information Generator Switchboard Operator [phone] Manas Villeda MD - Family Care Team Information Generator Switchboard Operator [phone] Medicine Estelita Brown MD - Vascular Surgery Care Team Information Generator Switchboard Operator [phone] Arnold Holguin MD - Hospitalist Care Team Information Generator Switchboard Operator [phone] Problems Active Problems Provider Date Restless legs Jaziel Hurst M.D. Onset: 04/06/2015 Dyspnea Sharon Peter MD Onset: 06/10/2016 Asthma without status asthmaticus Sharon Peter MD Onset: 06/10/2016 Disturbance in sleep behavior Sharon Peter MD Onset: 06/10/2016 Morbid obesity Sharon Peter MD Onset: 06/10/2016 Encounter for planned postprocedural Bennie Herron M.D., [facility], [facility] Onset: wound closure Angina pectoris Bryson [...] disease of Lennox Singh M.D. Onset: 01/24/2018 [place] coronary artery without angina pectoris Contusion of abdominal wall Lennox Singh M.D. Onset: 01/25/2018 Chest pain Shanda Gregory, D.O. Onset: 01/31/2018 Hypothyroidism Shanda Gregory, D.O. Onset: 01/31/2018 Chronic diastolic heart failure Shanda Gregory D.OKandi Onset: 02/01/2018 Hypertensive heart and chronic kidney [...] disease of Arnold Holguin MD Onset: 07/07/2018 [place] coronary artery with unspecified angina pectoris Localized, primary osteoarthritis Marisela Driver M.D. Onset: 04/12/2019 Social History Type Date Description Comments Sex Unknown Tobacco Use Start: Unknown Never Smoked Cigarettes Smoking Status Reviewed: 05/25/19 Never Smoked Cigarettes ETOH Use Rarely consumes [...] Medications SIG Qnty Indications Ordering Date Provider Amlodipine Besylate 1 by mouth every 90tabs I25.119 You SKandi 04/23/2019 5mg day Danny, DO FACC Tablets Amiodarone HCL 1/2 tab by mouth 90tabs You SKandi 07/23/2018 200mg every day Delgado, DO FACC Tablets Torsemide As directed by 90tabs You SKandi 07/23/2018 20mg Tablets Milling/Polishing Operator Danny, DO FACC Plavix take one tablet by 90tabs You SKandi 02/27/2018 75mg Tablets mouth daily Danny, DO [...] Feli daily BALWINDER Oliva, RN, 100-25mcg/Inh Aerosol SKIN DIVING TEACHER-BC Shark Cartilage 2 by mouth twice Unknown [...] take 2 at bedtime Amaris, Dihydrochloride Veronica, SKIN DIVING TEACHER 1mg Tablets Nitrofurantoin Take 1 Capsule By [...] Millicuries Injection Inj, Regadenoson, 0.1 MG You Urban Delgado, DO FACC 03/25/2018 Injection Technetium TC 99M You SKandi Delgado, DO FAC 03/25/2018 Tetrofosmin, Per Unit Dose Up To 40 Millicuries Injection Immunizations CPT Code Status Date Vaccine Lot # [id number] Given 06/28/1997 Flu Vaccine Vital Signs Date Vital Result Comment 05/25/2019 3:44pm Height 60 inches 5'0" Weight 239.00 lb Heart Rate 78 /min BP Systolic 122 mmHg BP Diastolic 72 mmHg Respiratory Rate 18 /min Body Temperature 98.0 F Pain Level 0 BMI (Body Mass Index) 46.7 kg/m2 05/06/2019 3:59pm Weight 243.00 lb per pt Heart Rate 60 /min BP Systolic Sitting 104 mmHg BP Diastolic Sitting 74 mmHg Respiratory Rate 16 /min Pain Level 8 arm=right Results Test Acquired Date Facility Test Result H/L Range Note Laboratory test 08/08/2019 [facility] Legionella SEE RESULT [address] [place] [address] [phone] Influenza A & B 08/08/2019 [facility] Flu AB (SEE NOTE) [address] [place] [address] [phone] Influenza A Molecular NEGATIVE Negative Influenza B Molecular NEGATIVE Negative 3 Laboratory test 08/08/2019 [facility] Lactic Acid 1.3 mmol/L Normal 0.5-2.0 [address] [place] [address] [phone] CBC Auto Diff 08/08/2019 [facility] White Blood 10.9 High 3.5- 10.[address] Count 10^3/[place] [address] [phone] Red Blood Count 3.12 10^6/uL Low 3.70-4.87 [...] Blood Cells % 0.0 Basic Metabolic 08/08/2019 [facility] Sodium 133 mmol/L Low 135-145 Panel [address] [place] [address] [phone] Potassium 4.1 mmol/L Normal 3.5-5.0 Chloride 97 mmol/L Low 101-111 Co2 Carbon Dioxide 24 mmol/L Normal 22-32 Anion Gap 12 mmol/L High 2-11 Glucose 180 mg/dL High 70-100 Blood Urea Nitrogen 59 mg/dL High 6-24 Creatinine 2.49 mg/dL High 0.51-0.95 BUN/Creatinine Ratio 23.7 High 8-20 Calcium 9.0 mg/dL Normal 8.6-10.3 Egfr Non- 18.7 >60 Egfr 22.6 >60 5 Laboratory test 08/08/2019 [facility] C Reactive 177.86 mg/L High <8.01 finding [address] [facility] [place] [address] [phone] Urinalysis 08/08/2019 [facility] Urine Color Yellow Profile [address] [place] [address] [phone] Urine Appearance Clear Urine Specific Mobile 1.014 Normal 1.010-1.030 Urine pH 5.0 Normal [...] Casts Present Abnormal Absent Laboratory test 08/08/2019 [facility] Erythrocyte Sed 72 mm/Hr High 0-[address] [place] [address] [phone] Urine Culture And 08/08/2019 [facility] Urine Culture SEE RESULT [address] [place] [address] [phone] Laboratory test 08/08/2019 [facility] Blood Culture SEE RESULT [address] [place] [address] [phone] 1 SEE RESULT BELOW Name: JOCELYNE MARTIN : [address]: Que Jay MD Acct: [id number] Unit: [id number] AGE: 78 Location: ED Re08/08/19 SEX: F Status: REG ER SPEC: [id number] OSCAR: 08/08/19 [facility] DR: Reentta Pagan LAMP DECORATOR REQ: [id number] RECD: 08/08/19 STATUS: FRANKI DE JESUS DR: [...] . END OF REPORT DEPARTMENT OF PATHOLOGY, [address] [place] [address] Ramos Durand M.D. Director [facility] # [id number] 2 Suboptimal collection technique may reduce sensitivity of test. Refer to the [facility] Test Catalog for collection information: [email or web address] As with all diagnostic procedures, the laboratory results obtained should be used in conjunction with other clinical information available to the physician, including confirmation by another method, as applicable. 3 Sample Processor: [id number] 4 [facility] Severe Sepsis and Septic Shock [...] [address]: Capri Elliott MD Acct: [id number] Unit: [id number] AGE: 78 Location: [address] Re08/09/19 SEX: F Status: ADM IN SPEC: [id number] OSCAR: 08/08/[address]: Que Jay MD REQ: [id number] RECD: 08/08/19 STATUS: FRANKI BARBOUR DR: You Bains MD _ SOURCE: URINE SPDESC: ORDERED: Urine Culture Procedure Result Reported Site Urine Culture Final 08/09/19- 1400 ML No Growth (<1,000 CFU/mL) * ML - Main Lab . END OF REPORT DEPARTMENT OF PATHOLOGY, [address] [place] [address] Ramos Durand M.D. Director [facility] # [id number] 8 SEE RESULT BELOW Name: JOCELYNE MARTIN : [address]: Capri Elliott MD Acct: [id number] Unit: [id number] AGE: 78 Location: [facility] 412 Re08/09/19 SEX: F Status: ADM IN SPEC: [id number] OSCAR: 08/08/19-[address]: Que Jay MD REQ: [id number] RECD: 08/08/19 STATUS: RES [facility] DR: You Bains MD _ SOURCE: [facility]LOOD,[facility]: ORDERED: Blood Cult Procedure Result Reported Site Aerobic Culture Bottle Preliminary 08/10/191825 ML No Growth Day 2 Anaerobic Culture Bottle Preliminary 08/10/191825 ML No Growth Day 2 * ML - Main Lab . END OF REPORT DEPARTMENT OF PATHOLOGY, [address] [place] [address] Ramos Durand M.D. Director [facility] # [id number] Procedures Date Code Description Status 05/25/2019 Inject/Drain Joint/Bursa Small W/O US Completed 05/25/2019 Inject/Drain Joint/Bursa Small W/O US Completed 04/23/2019 50569 EKG Tracing & Interpretation Completed 08/06/2016 [id number] Diabetic Retinal Eye Exam Completed Medical Devices Description No Information Available Encounters Type Date Location Provider Dx Diagnosis Office Visit 05/25/2019 [facility] Bryson Mcgarry, M19.042 Primary 3:00p at [place] MD osteoarthritis, left hand M19.041 Primary osteoarthritis, right hand Office Visit 05/11/2019 3:00p [facility] Avinash Romero, D64.89 Other specified [facility] Office Visit 05/06/2019 3:45p C[facility] carmen Duggan G25.0 Essential tremor Neurologic Serv Jeane Hurst [facility] G44.229 Chronic tension-type headache, not intractable I20.8 Other forms of angina pectoris Office Visit 04/23/2019 11:15a Cardiology You Duggan R60.0 Localized edema [facility] FACC 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[place] coronary artery w/o ang pctrs [...] peptic ulcer disease Office Visit 04/13/2019 3:00p [facility] Avinash Romero, D64.9 Anemia, [facility] unspecified Cyrus R53.83 Other fatigue 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 Office Visit 04/12/2019 3:15p [facility] Marisela Driver, M25.562 Pain in left at [facility] knee M25.561 Pain in right knee M25.462 Effusion, left knee M25.461 Effusion, right knee M17.0 Bilateral primary osteoarthritis of knee M25.511 Pain in right shoulder Office 03/17/2019 [facility] Agnes K21.0 Gastro-esophageal Visit 4:00p Veronica reflux disease with RODRIGO Boss esophagitis Assessments Date Code Description Provider 05/25/2019 M19.042 Primary osteoarthritis, left hand Bryson Mcgarry MD 05/25/2019 M19.041 Primary osteoarthritis, right hand Bryson Mcgarry MD 05/11/2019 D64.89 Other specified anemias Avinash Romero M.D. 05/06/2019 G25.0 Essential tremor Jaziel Hurst M.D. 05/06/2019 G44.229 Chronic tension-type headache, not Jaziel Hurst M.D. intractable 05/06/2019 I20.8 Other forms of angina pectoris Jaziel Hurst M.D. 04/23/2019 R60.0 Localized edema You Delgado, DO [facility] 04/23/2019 I25.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 [place] Youprimitivo Duggan Danny, DO [facility] coronary artery with 04/23/2019 D64.9 Anemia, unspecified You Delgado, DO [facility] 04/23/2019 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 graft You Delgado DO [facility] 04/23/2019 I48.0 Paroxysmal atrial fibrillation You Delgado DO [facility] 04/23/2019 D64.89 Other specified anemias You Delgado, DO [facility] 04/23/2019 I50.32 Chronic diastolic (congestive) heart You Delgado DO [facility] failure 04/23/2019 N18.9 Chronic kidney disease, unspecified You Delgado DO [facility] 04/23/2019 G25.0 Essential tremor You Delgado, DO FAC 04/23/2019 D47.1 Chronic myeloproliferative disease You Delgado DO FAC 04/23/2019 I10 Essential (primary) hypertension You Delgado DO FAC 04/23/2019 E78.5 Hyperlipidemia, unspecified You Delgado, DO FAC 04/23/2019 I25.2 Old myocardial infarction You Delgado DO [facility] 04/23/2019 G47.33 Obstructive sleep apnea (adult) You Delgado DO [facility] (pediatric) 04/23/2019 Z87.11 Personal history of peptic ulcer You Delgado, DO [facility] disease 04/13/2019 D64.9 Anemia, unspecified Avinash Romero M.D. 04/13/2019 R53.83 Other fatigue Avinash Romero M.D. 04/13/2019 I25.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 [place] Avinash Romero M.D. coronary artery with 04/13/2019 [...] Boss NP esophagitis Plan of Treatment Future Appointment(s):11/16/2019 4:10 pm - Kris Merrill MD at [facility] D[facility] AT [facility]21/05/2019 - Bryson Mcgarry, MDM19.042 Primary osteoarthritis, left handFollow up:Follow up:M19.041 Primary osteoarthritis, right handFollow up: Follow up: Functional Status Description No Information Available Mental Status Description No Information Available Referrals Description No Information Available
[2019-08-24] MEDS ORDERED: Albuterol HFA INHALER* 8 gm MDI INH PRN (14:12)
[2019-08-24] MEDS: oxyCODONE TAB* 5 MG TAB PO PRN ×2 (15:14→20:31)
[2019-08-24 16:09] LABS: ABS Eosinophils 0.2 10^3/ul (0-0.6); ABS Lymphocytes 1.7 10^3/ul (1.0-4.8); ABS Monocytes 0.8 10^3/ul (0-0.8); ABS Neutrophils 8.2 10^3/ul (1.5-7.7); Eosinophil % 1.7 %; Hematocrit 29 % (35-47); Hemoglobin 9.9 g/dL (12.0-16.0); Lymphocyte % 15.2 %; Mean Corpuscular HGB Conc 34 g/dL (31-36); Mean Corpuscular Hemoglobin 33 pg (27-31); Mean Corpuscular Volume 97 fL (80-97); Mean Platelet Volume 7.9 fL (7.4-10.4); Platelet Count 244 10^3/uL (150-450); Red Blood Count 2.97 10^6 /uL (3.70-4.87); Red Cell Distribution Width 13 % (10-15); White Blood Count 10.9 10^3/uL (3.5-10.8)
[2019-08-24 16:21] LABS: Albumin 3.1 g/dL (3.2-5.2); Calcium 8.8 mg/dL (8.6-10.3); Potassium 4.1 mmol/L (3.5-5.0); Total Bilirubin 0.3 mg/dL (0.2-1.0)
[2019-08-24 16:27] LABS: Albumin/Globulin Ratio 1.1 (1-3); BUN/Creatinine Ratio 43.6 (8-20); C Reactive Protein 87.06 mg/L (<8.01); EGFR African American 43.9 (>60); EGFR Non-African American 36.3 (>60); Globulin 2.9 g/dL (2-4)
--- NOTE | 2019-08-24 16:45 | ADMNOTE ---
Subjective Date of Service: 08/24/19 Interval History: ADMISSION HISTORY AND PHYSICAL EXAM: Allergies Allergy/AdvReac Type Severity Reaction Status Date / Time atorvastatin [From Lipitor] Allergy See Comment Verified 08/08/19 17:15 imipramine Allergy Unknown Verified 08/08/19 17:15 Reaction Details Iodinated Contrast Media Allergy Nausea Verified 08/08/19 17:15 [Iodinated Contrast- Oral and IV Dye] misoprostol [From Cytotec] Allergy Itching Verified 08/08/19 17:15 naproxen Allergy Itching Verified 08/08/19 17:15 nitrofurantoin Allergy Unknown Verified 08/08/19 17:15 Reaction Details theophylline [From Uniphyl] Allergy Unknown Verified 08/08/19 17:15 Reaction Details tiagabine [From Gabitril] Allergy Rash Verified 08/08/19 17:15 tizanidine Allergy Unknown Verified 08/08/19 17:15 Reaction Details fentanyl AdvReac Dizziness Verified 08/08/19 17:15 Hyllsha-Vcd-Wmq Reductase AdvReac Vomiting Verified 08/08/19 17:15 Inhibitor Home Medications Medication Instructions Recorded Confirmed Type Albuterol 2.5MG/3ML (0.083%)* 1 aer NEB QID PRN 01/20/18 08/24/19 History [Ventolin 2.5 MG/3 ML NEB.MADONNA*] Albuterol HFA INHALER* [Ventolin 2 puff INH Q6HR PRN 01/20/18 08/24/19 History HFA Inhaler*] Fluticasone NASAL SPRAY 50MCG* 1 spray BOTH NARES BEDTIME 01/20/18 08/24/19 History [Flonase NASAL SPRAY 50MCG*] Montelukast Sodium TAB* [Singulair 10 mg PO DAILY 01/20/18 08/24/19 History 10 MG TAB*] Vitamin B Complex CAP* [B Complex 1 cap PO QAM 01/20/18 08/24/19 History CAP*] Clopidogrel TAB* [Plavix TAB*] 75 mg PO DAILY 04/01/18 08/24/19 History Amiodarone TAB* [Cordarone Tab*] 100 mg PO DAILY 05/20/18 08/24/19 History Calcium Carb,Gluc/Mag Ox,Gluc 1 tab PO DAILY 05/20/18 08/24/19 History [Calcium Magnesium Caplet] Cholecalciferol TAB* [Vitamin D 2,000 units PO DAILY 05/20/18 08/24/19 History TAB*] Ezetimibe TAB* [Zetia TAB*] 10 mg PO DAILY 05/20/18 08/24/19 History Fluticasone HFA 110 mcg(NF) 1 puff INH BID 05/20/18 08/24/19 History [Flovent HFA 110 mcg(NF)] HydroCODONE/Acetamin 10/325 NF 2 tab PO Q4H PRN 05/20/18 08/24/19 History [[place] 10/325 (NF)] LevoCETirizine TAB (NF) [Xyzal TAB 5 mg PO DAILY 05/20/18 08/24/19 History (NF)] Levothyroxine TAB* [Synthroid TAB*] 175 mcg PO DAILY 05/20/18 08/24/19 History Melatonin 10 mg PO BEDTIME 05/20/18 08/24/19 History Metoprolol Succinate XL TAB* 25 mg PO BID 05/20/18 08/24/19 History [Toprol XL TAB*] Multivitamin with Folic Acid [One 400 mcg PO DAILY 05/20/18 08/24/19 History Daily Essential Tablet] Omeprazole CAP (NF) [Prilosec CAP* 20 mg PO BID 05/20/18 08/24/19 History 20 MG] Pramipexole TAB* [Mirapex TAB*] 2 mg PO BEDTIME 05/20/18 08/24/19 History Primidone 50 mg TAB (*) [Mysoline 150 mg PO BEDTIME 05/20/18 08/24/19 History 250 mg TAB (*)] Sennosides/Docusate Sodium 2 tab PO BID 05/20/18 08/24/19 History [Senna-S Tablet] Shark Cartilage [Shark Fin 1,000 mg PO BID 05/20/18 08/24/19 History Cartilage] Torsemide TAB* [Demadex 20 MG*] 20 mg PO DAILY 05/20/18 08/24/19 History Venlafaxine EXT RELEASE CAP* 37.5 mg PO BEDTIME 05/20/18 08/24/19 History [Effexor Xr CAP*] amLODIPine TAB* [Norvasc 5 mg TAB*] 10 mg PO DAILY 05/20/18 08/24/19 History HPI: The patient was recently in the hospital with a Right leg infection. She had drainage of a soft tissue infection 08/09/19. She was discharge on doxycycline and took one this AM. She has had chills every day but not sweats since discharge. She had increased paink swelling and redness of the R lateral leg around the incision site. Family History: Findings - Both parents had CAD. Social History: Findings - No alcohol or tobacco abuse. Lives with her who is her SDM. Past Medical History: Findings - VALENTIN, restless legs, HTN, asthma, GERD, hypothyroid, CKD, angina, PAF, CABG, arthroscopy, appy, choly, BL hip surgery, cataract surgery BL, 5 back surgeries, breast reduction Review of Systems - Measurements Intake and Output: Intake and Output Last 24 Hours 08/22/19 08/23/19 08/24/19 08/25/19 06:59 06:59 06:59 06:59 Weight 222 lb 11.2 oz - Review of Systems Constitutional Symptoms: Negative: Weight Gain, Weight Loss, Weakness, Fatigue, Fever, Night Sweats, Unexplained Falls, Other Dermatology: Positive: Normal HEENT: Positive: Normal Eyes: Positive: Normal Thyroid: Positive: Primary Hypothyroidism Pulmonary: Positive: Other - sleep apnea, uses O2 2 L when sleeping (sometimes) Cardiology: Positive: Normal Gastroenterology: Positive: Normal Musculoskeletal: Positive: Joint Pain Endocrinology: Positive: Obesity Hematologic/Lymphatic: Positive: Anemia Neurology: Positive: Normal Psychiatry: Positive: Normal Allergic/Immunologic: Negative: Hx Anaphylaxis, Hx Angioedema, Hx Environmental, Hx Seasonal, Asthma, Hx HIV, Immunocompromise, Swollen Glands LymphNodes, Other Objective Active Medications: Albuterol (Ventolin Hfa Inhaler*) 2 puff INH Q6HR PRN PRN Reason: SHORTNESS OF BREATH Amiodarone HCl (Cordarone Tab*) 100 mg PO DAILY JASON Amlodipine Besylate (Norvasc Tab*) 10 mg PO DAILY JASON Cetirizine HCl (Zyrtec*) 10 mg PO DAILY JASON Cholecalciferol (Vitamin D Tab*) 2,000 units PO DAILY JASON Docusate Sodium (Colace Cap*) 100 mg PO BID JASON Ezetimibe (Zetia Tab*) 10 mg PO DAILY JASON Fluticasone Propionate (Flonase Nasal [place] 50mcg*) 1 spray BOTH NARES BEDTIME JASON Cefepime HCl (Maxipime 1 Gm In Dextrose Duplex (*)) 1 gm in 50 mls @ 100 mls/ hr IV Q12H JASON Levothyroxine Sodium (Synthroid Tab*) 175 mcg PO DAILY@0600 JASON Melatonin (Melatonin) 9 mg PO BEDTIME JASON Metoprolol Succinate (Toprol Xl Tab*) 25 mg PO BID JASON Mometasone Furoate (Asmanex 220 Mcg Mdi *) 1 puff INH QPM JASON Montelukast Sodium (Singulair Tab*) 10 mg PO DAILY JASON Multivitamins/Minerals (Theragran/Minerals Tab*) 1 tab PO DAILY JASON Oxycodone HCl (Roxycodone Tab*) 20 mg PO Q4H PRN PRN Reason: PAIN - MODERATE Last Admin: 08/24/19 15:14 Dose: 20 mg Pantoprazole Sodium (Protonix Tab*) 40 mg PO BID JASON Pramipexole Dihydrochloride (Mirapex Tab*) 2 mg PO BEDTIME JASON Primidone (Mysoline 250 Mg Tab (*)) 150 mg PO BEDTIME JASON Senna (Senokot 8.6 Mg Tab*) 2 tab PO BID JASON Torsemide (Demadex*) 20 mg PO DAILY JASON Venlafaxine HCl (Effexor Xr Cap*) 37.5 mg PO BEDTIME JASON Vital Signs - 8 hr 08/24/19 08/24/19 12:45 15:14 Temperature 97.6 F Pulse Rate 71 Respiratory 20 18 Rate Blood Pressure 137/39 (mmHg) O2 Sat by Pulse 96 Oximetry Oxygen Devices in Use Now: None Appearance: Alert, partly up in bed. In good spirits. Looks comfortable at rest. Eyes: No Scleral Icterus Respiratory: Symmetrical Chest Expansion and Respiratory Effort, Clear to Auscultation, Clear to Percussion Cardiovascular: NL Sounds; No Murmurs; No JVD, RRR, No Edema, - Abdominal: - - obese, soft, nl BS, not tender Extremities: No Edema, No Clubbing, Cyanosis, - Skin: No Nodules or Sclerosis, - - R leg wound with nikunj, 15 cm or erythena surrounding incision. Neurological: Alert and Oriented x 3, NL Sensation Result Diagrams: 08/24/19 15:51 08/24/19 15:51 Assess/Plan/Problems-Billing Assessment: - Patient Problems (1) Soft tissue infection Current Visit: Yes Status: Acute Code(s): L08.9 - LOCAL INFECTION OF THE SKIN AND SUBCUTANEOUS TISSUE, UNSP SNOMED Code(s): 19317928 Comment: Blood C&S x 2 sent, start cefepime. Discussed with Dr. Salcedo. Surgery planned for 08/25. (2) Chronic pain Current Visit: No Status: Acute Code(s): G89.29 - OTHER CHRONIC PAIN SNOMED Code(s): 96235834 Comment: Continue prn oxycodone for wound pain. (3) Paroxysmal atrial fibrillation Current Visit: No Status: Acute Code(s): I48.0 - PAROXYSMAL ATRIAL FIBRILLATION SNOMED Code(s): 687597862 Comment: - S/p MAZE procedure. - Continue Amiodarone and Metoprolol. - EKG shows NSR. - Not on anticoagulation due to h/o GI bleed. (4) CKD (chronic kidney disease) Current Visit: No Status: Chronic Priority: High Code(s): N18.9 - CHRONIC KIDNEY DISEASE, UNSPECIFIED SNOMED Code(s): 918985460 Comment: Est GFR 36.3 on 08/24/19. (5) Obstructive sleep apnea Current Visit: No Status: Chronic Priority: High Code(s): G47.33 - OBSTRUCTIVE SLEEP APNEA (ADULT) (PEDIATRIC) SNOMED Code(s): 31859578 Comment: - Patient wears supplemental O2 2 L/min overnight, but not CPAP
[2019-08-24] MEDS: Cefepime 1 GM in Dextrose(*) 1 GM/50 ML BAG IV SCH (16:54)
--- NOTE | 2019-08-24 17:58 | CONS ---
CONSULTATION REPORT: DATE OF CONSULT: 08/24/19 REQUESTING PROVIDER: Dr. Marshall. CONSULTING SERVICE: Infectious Disease. REASON FOR CONSULTATION: Right leg cellulitis. IMPRESSION: 1. Recent admission with right medial knee fluid collection in the soft tissues which was cystic in nature, was drained and excised. Grew no organism. Discharged on doxycycline. While still on doxycycline, developed recurrence of erythema, pain, swelling, and drainage at the surgical site with some shaking chills. Either secondary infection or recurrence of the primary infection which could be bacterial less likely fungal or mycobacterial but still a consideration and that the original specimen was culture negative and was uncertain significance. 2. Stage 3 chronic kidney disease. 3. Bilateral lower extremity lymphedema. 4. Obstructive sleep apnea. 5. Atrial fibrillation. RECOMMENDATIONS: I gave broad-spectrum antibiotics. She will have another surgical procedure which is planned for tomorrow. I will have more culture material to hopefully guide subsequent antibiotic therapy. She has had blood cultures that are being sent now. HISTORY OF PRESENT ILLNESS: This is a 78-year-old woman with right leg pain and swelling. In mid July, she developed some swelling behind and below the right knee then became more lateral where she developed swelling, redness, pain ; was admitted to the hospital and had incision and drainage of the collection which pathology reports abscess without delineation of histologic finding. The cultures were negative. She had been on day or so of antibiotics at that time. Operative findings included clear fluid and a cystic structure that was excised. She was taking doxycycline at home after few days of IV antibiotics here and was doing well until the weekend. She developed some shaking chills, fevers, malaise; more swelling, pain, and drainage at the prior cyst site. She saw Dr. Umana today, who had her come into the hospital. She was started on antibiotics, having labs and cultures obtained now. We planned for surgical therapy tomorrow. PAST MEDICAL HISTORY: 1. Chronic kidney disease, stage 3. 2. Obstructive sleep apnea. 3. Lymphedema. 4. Asthma. 5. Restless legs syndrome. 6. Hypertension. 7. Anemia. 8. Myeloproliferative disorder. 9. Heart failure with preserved ejection fraction. 10. Atrial fibrillation. 11. Essential tremor. 12. Fibromyalgia. 13. Gastroesophageal reflux disease. 14. Hypothyroidism. 15. Headache. 16. Coronary disease and ST elevation PR. 17. Esophageal spasms. 18. History of gastric ulcer. 19. Status post coronary artery bypass. 20. History of left knee arthroscopy and right knee arthroscopy. 21. Status post cholecystectomy. 22. Status post appendectomy. 23. Status post umbilical hernia repair. 24. Status post bilateral hip arthroplasty. 25. Cataract repair. 26. History of 5 spine surgeries. 26. Status post breast reduction. MEDICATIONS: 1. Albuterol. 2. Amiodarone. 3. Amlodipine. 4. Cefepime 1 g every 12 hours. 5. Cetirizine. 6. Cholecalciferol. 7. Docusate. 8. Zetia. 9. Fluticasone nasal spray. 10. Levothyroxine. 11. Melatonin. 12. Metoprolol. 13. Multivitamin. 14. Oxycodone. 15. Pantoprazole. 16. Pramipexole. 17. Primidone. 18. Senna twice daily. 19. Torsemide. 20. Effexor. ALLERGIES: ATORVASTATIN, IMIPRAMINE, IODINE, NAPROXEN, NITROFURANTOIN, THEOPHYLLINE, TIAGABINE, TIZANIDINE, FENTANYL, and STATIN. FAMILY HISTORY: No recurrent infections. SOCIAL HISTORY: She lives with her outside of [place]. She is a nonsmoker. No injection drugs. REVIEW OF SYSTEMS: All negative except as noted above to 12-point review of systems. PHYSICAL EXAM: Vital Signs: Temperature 37.4, heart rate is 68, respiratory rate 18, blood pressure is 124/68, oxygen saturation 98% on room air. In general, she is awake, not in distress. Neurologic: She is oriented x3. Follows all commands. HEENT: There is no conjunctival hemorrhage. Oropharynx without lesions. Neck: Supple without mass. Heart: Regular rate and rhythm without murmurs, rubs, or gallops. Lungs: Clear to auscultation bilaterally. Abdomen: Soft, nontender, nondistended. There are bowel sounds present. Skin : There is no rash or splinter hemorrhage. Musculoskeletal: There is no spine tenderness to palpation. There is no right knee tenderness or effusion. There is diffuse edema from the thigh down through the lower leg and a medial lower leg incision which is intact with diffuse erythema, underlying induration. No crepitus. No expressible fluid. There is tenderness to palpation. DIAGNOSTIC STUDIES/LAB DATA: On 08/12/19, her creatinine was 1.8. White count 6, hemoglobin 8, platelets 185. Please see impressions and recommendations outlined above that I discussed with Dr. Marshall. Thank you for asking me to see Veronica in consultation. [id number]/[facility] #: [id number] MTDD
[2019-08-24] MEDS: Mometasone 220 MCG MDI INH SCH (20:18)
[2019-08-24] MEDS: Senna TAB 8.6 mg* TAB PO SCH (20:31)
[2019-08-24] MEDS: Melatonin 3 MG TAB PO SCH (20:31)
[2019-08-24] MEDS: Docusate CAP* 100 MG PO SCH (20:31)
[2019-08-24] MEDS: Venlafaxine EXT RELEASE CAP* 37.5 MG PO SCH (20:31)
[2019-08-24] MEDS: Pantoprazole TAB * 40 MG TAB PO SCH (20:31)
[2019-08-24] MEDS: Primidone 50 mg TAB (*) PO SCH (20:31)
[2019-08-24] MEDS: Pramipexole TAB* 0.5 MG PO SCH (20:31)
[2019-08-24] MEDS: Metoprolol Succinate XL TAB* 25 MG PO SCH (20:31)
[2019-08-24] MEDS: Fluticasone NASAL SPRAY 50MCG* 16 gm SPRAY BTL BOTH NARES SCH (20:32)
[2019-08-25] MEDS: oxyCODONE TAB* 5 MG TAB PO PRN ×5 (01:18→21:29)
[2019-08-25] MEDS: Cefepime 1 GM in Dextrose(*) 1 GM/50 ML BAG IV SCH ×2 (03:32→19:35)
[2019-08-25] MEDS: Levothyroxine TAB* 175 MCG TAB PO SCH (05:25)
[2019-08-25] MEDS: Senna TAB 8.6 mg* TAB PO SCH ×2 (09:09→21:28)
[2019-08-25] MEDS: Cholecalciferol TAB* 1000 UNITS PO SCH (09:10)
[2019-08-25] MEDS: Metoprolol Succinate XL TAB* 25 MG PO SCH ×2 (09:11→21:29)
[2019-08-25] MEDS: Amiodarone TAB* 200 MG PO SCH (09:11)
[2019-08-25] MEDS: Pantoprazole TAB * 40 MG TAB PO SCH ×2 (09:11→21:29)
[2019-08-25] MEDS: Ezetimibe TAB* 10 MG PO SCH (09:12)
[2019-08-25] MEDS: Torsemide TAB* 20 MG PO SCH (09:12)
[2019-08-25] MEDS: amLODIPine TAB* 5 MG PO SCH (09:12)
[2019-08-25] MEDS: Multivitamins/Minerals TAB PO SCH (09:12)
[2019-08-25] MEDS: Cetirizine* 10 MG TAB PO SCH (09:12)
[2019-08-25] MEDS: Docusate CAP* 100 MG PO SCH ×2 (09:12→21:29)
[2019-08-25] MEDS: Montelukast Sodium TAB* 10 MG PO SCH (09:12)
--- NOTE | 2019-08-25 10:14 | PN ---
Progress Note - Progress Note Date of Service: 08/25/19 SOAP: Subjective: CC: right leg infection HPI: 78 year old woman with right medial leg cyst excision with recurrence of drainage and erythema while on doxycycline, has had rigors without fever at home. No fever or rigors overnight. Appetite is good, though waiting for OR today. Leg pain is ok. Serous drainage on bandage per RN when she changed it this morning. Objective: [] Vital Signs Temp 36.3 C 08/25/19 08:00 Pulse 66 08/25/19 08:00 Resp 16 08/25/19 08:00 BP 120/70 08/25/19 08:00 Pulse Ox 94 08/25/19 08:00 Intake & Output 08/24/19 08/25/19 08/25/19 18:59 06:59 18:59 Intake Total 360 70 Balance 360 70 Weight 222 lb 11.2 oz Intake: IV Fluids 15 NS 15 IVPB 55 ABX - CEFEPIME 55 Oral 360 0 Other: # Bowel Movements 0 # Voids 2 Gen:awake, no distress HEENT: no thrush Heart:Regular no murmur Lungs:CTA BL Abd: +BS NTND soft Skin: no rash MSK: no spine tenderness; Right leg wrapped Laboratory Results - last 24 hr 08/24/19 08/24/19 15:51 15:51 WBC 10.9 H RBC 2.97 L Hgb 9.9 L Hct 29 L MCV 97 MCH 33 H MCHC 34 RDW 13 Plt Count 244 MPV 7.9 Neut % (Auto) 75.3 Lymph % (Auto) 15.2 [place] % (Auto) 7.4 Eos % (Auto) 1.7 Baso % (Auto) 0.4 Absolute Neuts (auto) 8.2 H Absolute Lymphs (auto) 1.7 Absolute Monos (auto) 0.8 Absolute Eos (auto) 0.2 Absolute Basos (auto) 0.0 Absolute Nucleated RBC 0.0 Nucleated RBC % 0.0 Sodium 137 Potassium 4.1 Chloride 104 Carbon Dioxide 24 Anion Gap 9 BUN 61 H Creatinine 1.40 H Est GFR ( Amer) 43.9 Est GFR (Non-Af Amer) 36.3 BUN/Creatinine Ratio 43.6 H Glucose 149 H Calcium 8.8 Total Bilirubin 0.30 AST 13 ALT 8 Alkaline Phosphatase 103 C-Reactive Protein 87.06 H Total Protein 6.0 L Albumin 3.1 L Globulin 2.9 Albumin/Globulin Ratio 1.1 Microbiology 08/24/19 16:30 Skin and Soft Tissue MRSA/MSSA (PCR - Final Knee Right Mrsa Negative S.aureus Negative Gram Stain - Final Assessment: 1. Right leg abscess, GPC in gram stain 2. CKD 3. morbid obesity Plan: 1. continue cefepime, await cultures and drainage planned for today, will ask lab to hold cultures longer for fungal organisms
[2019-08-25] MEDS: Ondansetron INJ* 2 MG/ML VIAL IV PRN (11:07)
--- NOTE | 2019-08-25 11:24 | PN ---
Subjective Date of Service: 08/25/19 Interval History: Pain control adequate. No bowel c/o. No more chills. Family History: Findings - Both parents had CAD. Social History: Findings - No alcohol or tobacco abuse. Lives with her who is her SDM. Past Medical History: Findings - VALENTIN, restless legs, HTN, asthma, GERD, hypothyroid, CKD, angina, PAF, CABG, arthroscopy, appy, choly, BL hip surgery, cataract surgery BL, 5 back surgeries, breast reduction Objective Active Medications: Albuterol (Ventolin Hfa Inhaler*) 2 puff INH Q6HR PRN PRN Reason: SHORTNESS OF BREATH Amiodarone HCl (Cordarone Tab*) 100 mg PO DAILY [facility] Last Admin: 08/25/19 09:11 Dose: 100 mg Amlodipine Besylate (Norvasc Tab*) 10 mg PO DAILY [facility] Last Admin: 08/25/19 09:12 Dose: 10 mg Cetirizine HCl (Zyrtec*) 10 mg PO DAILY [facility] Last Admin: 08/25/19 09:12 Dose: 10 mg Cholecalciferol (Vitamin D Tab*) 2,000 units PO DAILY [facility] Last Admin: 08/25/19 09:10 Dose: 2,000 units Docusate Sodium (Colace Cap*) 200 mg PO BID [facility] Ezetimibe (Zetia Tab*) 10 mg PO DAILY [facility] Last Admin: 08/25/19 09:12 Dose: 10 mg Fluticasone Propionate (Flonase Nasal [place] 50mcg*) 1 spray BOTH NARES BEDTIME [facility] Last Admin: 08/24/19 20:32 Dose: 1 spray Cefepime HCl (Maxipime 1 Gm In Dextrose Duplex (*)) 1 gm in 50 mls @ 100 mls/ hr IV Q12H [facility] Last Admin: 08/25/19 03:32 Dose: 100 mls/hr Levothyroxine Sodium (Synthroid Tab*) 175 mcg PO DAILY@0600 [facility] Last Admin: 08/25/19 05:25 Dose: 175 mcg Melatonin (Melatonin) 9 mg PO BEDTIME [facility] Last Admin: 08/24/19 20:31 Dose: 9 mg Metoprolol Succinate (Toprol Xl Tab*) 25 mg PO BID [facility] Last Admin: 08/25/19 09:11 Dose: 25 mg Mometasone Furoate (Asmanex 220 Mcg Mdi *) 1 puff INH QPM [facility] Last Admin: 08/24/19 20:18 Dose: 1 puff Montelukast Sodium (Singulair Tab*) 10 mg PO DAILY [facility] Last Admin: 08/25/19 09:12 Dose: 10 mg Multivitamins/Minerals (Theragran/Minerals Tab*) 1 tab PO DAILY [facility] Last Admin: 08/25/19 09:12 Dose: 1 tab Ondansetron HCl (Zofran Inj*) 4 mg IV Q4H PRN PRN Reason: NAUSEA Last Admin: 08/25/19 11:07 Dose: 4 mg Oxycodone HCl (Roxycodone Tab*) 20 mg PO Q4H PRN PRN Reason: PAIN - MODERATE Last Admin: 08/25/19 07:58 Dose: 20 mg Pantoprazole Sodium (Protonix Tab*) 40 mg PO BID [facility] Last Admin: 08/25/19 09:11 Dose: 40 mg Pramipexole Dihydrochloride (Mirapex Tab*) 2 mg PO BEDTIME [facility] Last Admin: 08/24/19 20:31 Dose: 2 mg Primidone (Mysoline 250 Mg Tab (*)) 150 mg PO BEDTIME [facility] Last Admin: 08/24/19 20:31 Dose: 150 mg Senna (Senokot 8.6 Mg Tab*) 2 tab PO BID [facility] Last Admin: 08/25/19 09:09 Dose: 2 tab Torsemide (Demadex*) 20 mg PO DAILY [facility] Last Admin: 08/25/19 09:12 Dose: 20 mg Venlafaxine HCl (Effexor Xr Cap*) 37.5 mg PO BEDTIME [facility] Last Admin: 08/24/19 20:31 Dose: 37.5 mg Vital Signs - 8 hr 08/25/19 08/25/19 08/25/19 03:26 07:15 07:58 Temperature 98.0 F 97.0 F Pulse Rate 71 63 Respiratory 18 18 20 Rate Blood Pressure 150/72 128/48 (mmHg) O2 Sat by Pulse 98 100 Oximetry 08/25/19 08:00 Temperature 97.4 F Pulse Rate 66 Respiratory 16 Rate Blood Pressure 120/70 (mmHg) O2 Sat by Pulse 94 Oximetry Oxygen Devices in Use Now: None Appearance: Alert, partly up in bed. In fair spirits. Looks comfortable. Eyes: No Scleral Icterus Extremities: No Edema, No Clubbing, Cyanosis, - Skin: No Nodules or Sclerosis, - - R leg less erythema today Neurological: Alert and Oriented x 3, NL Sensation Result Diagrams: 08/24/19 15:51 08/24/19 15:51 Microbiology and Other Data: Microbiology 08/24/19 16:30 Skin and Soft Tissue MRSA/MSSA (PCR - Final Knee Right Mrsa Negative S.aureus Negative Gram Stain - Final Assess/Plan/Problems-Billing Assessment: - Patient Problems (1) Soft tissue infection Current Visit: Yes Status: Acute Code(s): L08.9 - LOCAL INFECTION OF THE SKIN AND SUBCUTANEOUS TISSUE, UNSP SNOMED Code(s): 01463203 Comment: Blood C&S x 2 sent, started cefepime. Discussed with Dr. Salcedo. Surgery planned for 08/25. (2) Chronic pain Current Visit: No Status: Acute Code(s): G89.29 - OTHER CHRONIC PAIN SNOMED Code(s): 95324006 Comment: Continue prn oxycodone for wound pain. (3) Paroxysmal atrial fibrillation Current Visit: No Status: Acute Code(s): I48.0 - PAROXYSMAL ATRIAL FIBRILLATION SNOMED Code(s): 797517709 Comment: - S/p MAZE procedure. - Continue Amiodarone and Metoprolol. - EKG shows NSR. - Not on anticoagulation due to h/o GI bleed. (4) CKD (chronic kidney disease) Current Visit: No Status: Chronic Priority: High Code(s): N18.9 - CHRONIC KIDNEY DISEASE, UNSPECIFIED SNOMED Code(s): 986605571 Comment: Est GFR 36.3 on 08/24/19. (5) Obstructive sleep apnea Current Visit: No Status: Chronic Priority: High Code(s): G47.33 - OBSTRUCTIVE SLEEP APNEA (ADULT) (PEDIATRIC) SNOMED Code(s): 24917757 Comment: - Patient wears supplemental O2 2 L/min overnight, but not CPAP
[2019-08-25] MEDS ORDERED: fentaNYL* 50 MCG/ML 2 ML VIAL (100 MCG VIAL) ONE (15:24)
[2019-08-25] MEDS ORDERED: Midazolam* 1 MG/ML 2 ML VIAL (2 MG) ONE (15:24)
[2019-08-25] MEDS ORDERED: Levalbuterol 0.63MG/3ML NEB* UNIT OF USE INH PRN (15:56)
[2019-08-25] MEDS ORDERED: Naloxone* 0.4 MG/ML 1 ML VIAL IV PRN (15:56)
[2019-08-25] MEDS ORDERED: DiMENhydriNATE IV* 50 MG/ML VIAL IV PUSH PRN (15:56)
[2019-08-25] MEDS ORDERED: Famotidine IV* 10 MG/ML 2 ML (20 mg) ONE (15:59)
[2019-08-25] MEDS ORDERED: Lactated Ringers 1000 ML Bag* 1,000 ML IV SCH (16:00)
[2019-08-25] MEDS ORDERED: Bupivacaine 0.5%* 50 ML MDV VIAL ONE (16:09)
[2019-08-25] MEDS ORDERED: Propofol* 10 MG/ML 20 ML BTL ONE (16:13)
[2019-08-25] MEDS ORDERED: KETAMINE HCL* 50 MG/ML 10 ML VIAL ONE (16:13)
[2019-08-25] MEDS ORDERED: Ondansetron INJ* 2 MG/ML VIAL ONE (16:13)
[2019-08-25] MEDS ORDERED: Lidocaine 2% PF * 5 ML VIAL ONE (16:13)
[2019-08-25] MEDS ORDERED: Dexamethasone IV* 4 MG/ML 1 ML (4 MG) ONE (16:13)
[2019-08-25] MEDS ORDERED: EPHEDrine (Pressors)* 50 MG/ML VIAL ONE (16:34)
[2019-08-25] MEDS ORDERED: Acetaminophen IV 1GM/100ML * 100 ML ONE (16:37)
--- NOTE | 2019-08-25 17:09 | OP ---
Operative Report - Blank - Operative Report Date of Operation: 08/25/19 Note: PATIENT: Roxi Martin DATE OF : 1940 DATE OF SURGERY: 08/25/2019 SURGEON: Saw Vaca MD PACK OPERATOR: PHYLLIS Lopez, whos assistance was necessary for positioning , retraction, help with instrumentation, and closure. ANESTHESIOLOGIST: Dr. Stroud PREOPERATIVE DIAGNOSIS: Right medial knee soft tissue infection and fluid collection POSTOPERATIVE DIAGNOSIS: Right medial knee soft tissue infection and fluid collection OPERATION: Right medial knee irrigation and debridement ANESTHESIA: GETA IMPLANTS: none TOURNIQUET TIME: none SPECIMENS: Culture swabs to microbiology ESTIMATED BLOOD LOSS: minimal COMPLICATIONS: none STATUS: Stable from the operating room to the recovery room. INDICATIONS FOR PROCEDURE: Roxi had a right medial knee infection which underwent irrigation and debridement last week. This has reaccumulated and she started draining from the wound. Both operative and non-operative treatment alternatives were reviewed. Further, the nature and risks of surgery were reviewed in careful detail. Our discussions regarding the risks of surgery included, but were not limited to, persistent or worsening infection, wound problems, nerve injury, neuroma, RSD, persistent symptoms, blood clot, need for further surgery, failure of the surgery, and even the remote chance of catastrophic complication. DESCRIPTION OF PROCEDURE: The patient was seen in the preoperative holding unit and informed written consent was obtained. The appropriate extremity was marked. The patient was then brought to the operating room and carefully positioned on the operating room table. Anesthesia was induced. All bony prominences were padded with great care. A chlorhexidine based pre-scrub was performed followed by a Betadine prep and drape in standard sterile fashion. A surgical safety pause was then conducted in which we confirmed the appropriate patient, extremity, planned procedure, availability of equipment, indication and administration of prophylactic antibiotics, and DVT prophylaxis in the form of a compression boot on the non-surgical extremity. I began by removing the incisional nikunj. There was drainage from the wound. I then used a knife to incise the prior incision and a copious amount of fluid poured out. The fluid was grayish-pink and cloudy. It was not malodorous. Culture swabs were taken and sent to microbiology. I suctioned away the remaining fluid and performed a thorough debridement of the wound with a 15 blade scalpel. This included the skin, subcutaneous tissue, fascial and muscle layers. There was no tracking to the knee joint. The skin overlying the collection was avascular. I used a scalpel to remove a fair amount of skin to get back to bleeding tissue. This resulted in a wound that was 13 cm in length by 7 cm in width by 5 cm in depth. After a thorough soft tissue debridement, the wound was copiously irrigated with sterile saline and cystoscopy tubing. At this point, the wound was so extensive and the tissue of such poor quality, that it was not able to be primarily closed. Therefore, I elected to place a wound VAC, which was placed with good suction. The patient was then awakened from anesthesia and transferred to the recovery room in stable condition. There were no complications. All needle and sponge counts were correct at the end of the case. ATTESTATION: I attest I was present and scrubbed and performed the critical portions of the procedure myself. POSTOPERATIVE PLAN: She will remain on antibiotics as guided by the infectious disease service. We will plan on a repeat I&D and VAC change in a few days.
[2019-08-25] MEDS ORDERED: oxyCODONE TAB* 5 MG TAB ONE (17:12)
[2019-08-25] MEDS: Mometasone 220 MCG MDI INH SCH (20:10)
[2019-08-25] MEDS: Melatonin 3 MG TAB PO SCH (21:28)
[2019-08-25] MEDS: Pramipexole TAB* 0.5 MG PO SCH (21:28)
[2019-08-25] MEDS: Venlafaxine EXT RELEASE CAP* 37.5 MG PO SCH (21:29)
[2019-08-25] MEDS: Primidone 50 mg TAB (*) PO SCH (21:29)
[2019-08-25] MEDS: Fluticasone NASAL SPRAY 50MCG* 16 gm SPRAY BTL BOTH NARES SCH (21:29)
[2019-08-26] MEDS: Acetaminophen TAB* 325 MG PO PRN ×2 (02:00→21:47)
[2019-08-26] MEDS: oxyCODONE TAB* 5 MG TAB PO PRN ×3 (02:00→21:48)
[2019-08-26] MEDS: Cefepime 1 GM in Dextrose(*) 1 GM/50 ML BAG IV SCH (03:47)
[2019-08-26] MEDS: Levothyroxine TAB* 175 MCG TAB PO SCH (05:26)
[2019-08-26] MEDS: Senna TAB 8.6 mg* TAB PO SCH ×2 (07:58→21:48)
[2019-08-26] MEDS: Metoprolol Succinate XL TAB* 25 MG PO SCH ×2 (07:59→21:48)
[2019-08-26] MEDS: amLODIPine TAB* 5 MG PO SCH (07:59)
[2019-08-26] MEDS: Multivitamins/Minerals TAB PO SCH (07:59)
[2019-08-26] MEDS: Montelukast Sodium TAB* 10 MG PO SCH (08:00)
[2019-08-26] MEDS: Docusate CAP* 100 MG PO SCH ×2 (08:00→21:49)
[2019-08-26] MEDS: Cholecalciferol TAB* 1000 UNITS PO SCH (08:00)
[2019-08-26] MEDS: Amiodarone TAB* 200 MG PO SCH (08:01)
[2019-08-26] MEDS: Torsemide TAB* 20 MG PO SCH (08:01)
[2019-08-26] MEDS: Ezetimibe TAB* 10 MG PO SCH (08:02)
[2019-08-26] MEDS: Cetirizine* 10 MG TAB PO SCH (08:02)
[2019-08-26] MEDS: Pantoprazole TAB * 40 MG TAB PO SCH ×2 (08:02→21:52)
--- NOTE | 2019-08-26 09:39 | PN ---
Progress Note - Progress Note Date of Service: 08/26/19 SOAP: Subjective: resting in bed without significant complaints of pain Objective: Laboratory Last Values WBC 10.9 10^3/uL (3.5-10.8) H 08/24/19 15:51 RBC 2.97 10^6 /uL (3.70-4.87) L 08/24/19 15:51 Hgb 9.9 g/dL (12.0-16.0) L 08/24/19 15:51 Hct 29 % (35-47) L 08/24/19 15:51 MCV 97 fL (80-97) 08/24/19 15:51 MCH 33 pg (27-31) H 08/24/19 15:51 MCHC 34 g/dL (31-36) 08/24/19 15:51 RDW 13 % (10-15) 08/24/19 15:51 Plt Count 244 10^3/uL (150-450) 08/24/19 15:51 MPV 7.9 fL (7.4-10.4) 08/24/19 15:51 Neut % (Auto) 75.3 % 08/24/19 15:51 Lymph % (Auto) 15.2 % 08/24/19 15:51 [place] % (Auto) 7.4 % 08/24/19 15:51 Eos % (Auto) 1.7 % 08/24/19 15:51 Baso % (Auto) 0.4 % 08/24/19 15:51 Absolute Neuts (auto) 8.2 10^3/ul (1.5-7.7) H 08/24/19 15:51 Absolute Lymphs (auto) 1.7 10^3/ul (1.0-4.8) 08/24/19 15:51 Absolute Monos (auto) 0.8 10^3/ul (0-0.8) 08/24/19 15:51 Absolute Eos (auto) 0.2 10^3/ul (0-0.6) 08/24/19 15:51 Absolute Basos (auto) 0.0 10^3/ul (0-0.2) 08/24/19 15:51 Absolute Nucleated RBC 0.0 10^3/ul 08/24/19 15:51 Nucleated RBC % 0.0 08/24/19 15:51 Sodium 137 mmol/L (135-145) 08/24/19 15:51 Potassium 4.1 mmol/L (3.5-5.0) 08/24/19 15:51 Chloride 104 mmol/L (101-111) 08/24/19 15:51 Carbon Dioxide 24 mmol/L (22-32) 08/24/19 15:51 Anion Gap 9 mmol/L (2-11) 08/24/19 15:51 BUN 61 mg/dL (6-24) H 08/24/19 15:51 Creatinine 1.40 mg/dL (0.51-0.95) H 08/24/19 15:51 Est GFR ( Amer) 43.9 (>60) 08/24/19 15:51 Est GFR (Non-Af Amer) 36.3 (>60) 08/24/19 15:51 BUN/Creatinine Ratio 43.6 (8-20) H 08/24/19 15:51 Glucose 149 mg/dL (70-100) H 08/24/19 15:51 Calcium 8.8 mg/dL (8.6-10.3) 08/24/19 15:51 Total Bilirubin 0.30 mg/dL (0.2-1.0) 08/24/19 15:51 AST 13 U/L (13-39) 08/24/19 15:51 ALT 8 U/L (7-52) 08/24/19 15:51 Alkaline Phosphatase 103 U/L (34-104) 08/24/19 15:51 C-Reactive Protein 87.06 mg/L (<8.01) H 08/24/19 15:51 Total Protein 6.0 g/dL (6.4-8.9) L 08/24/19 15:51 Albumin 3.1 g/dL (3.2-5.2) L 08/24/19 15:51 Globulin 2.9 g/dL (2-4) 08/24/19 15:51 Albumin/Globulin Ratio 1.1 (1-3) 08/24/19 15:51 Vital Signs Temp Pulse Resp BP Pulse Ox 97.2 F 56 18 134/55 100 08/26/19 07:56 08/26/19 07:56 08/26/19 08:00 08/26/19 07:56 08/26/19 08:00 incision: c/d; wound vac in place with good suction PE: able to DF/PF, intact sensation, 2+ DP pulse Assessment: s/p I&D right medial knee with wound vac placement Plan: 1) Continue IV Abx per ID 2) continue current DVT prophylaxis 3) Continue current pain meds 4) will continue wound vac, good suction, will continue to follow and change on Friday
--- NOTE | 2019-08-26 10:58 | PN ---
Progress Note - Progress Note Date of Service: 08/26/19 SOAP: Subjective: CC: right leg infection HPI: 78 year old woman with right medial leg cyst excision with recurrence of drainage and erythema while on doxycycline, had rigors without fever at home. No fever or rigors last 24 hrs. Leg pain improved since I&D and vac placement on 08/25/19. No rash or diarrhea, appetite is good. Objective: [] Vital Signs Temp 36.2 C 08/26/19 07:56 Pulse 56 08/26/19 07:56 Resp 18 08/26/19 08:00 BP 134/55 08/26/19 07:56 Pulse Ox 100 08/26/19 08:00 Intake & Output 08/25/19 08/26/19 08/26/19 18:59 06:59 18:59 Intake Total 0 75 Balance 0 75 Intake: IV Fluids 20 NS 20 IVPB 55 ABX - CEFEPIME 55 Oral 0 0 Other: Estimated Void Medium Large # Voids 1 1 Gen:awake, no distress HEENT: no thrush Heart:Regular no murmur Lungs:CTA BL Abd: +BS NTND soft Skin: no rash MSK: no spine tenderness; Right medial leg vac without surrounding erythema Microbiology 08/25/19 16:30 Skin and Soft Tissue MRSA/MSSA (PCR - Final Knee Right Mrsa Negative S.aureus Negative Gram Stain - Final 08/24/19 15:52 Aerobic Blood Culture - Preliminary Blood Venous No Growth Day 1 Anaerobic Blood Culture - Preliminary No Growth Day 1 08/24/19 15:51 Aerobic Blood Culture - Preliminary Blood Venous No Growth Day 1 Anaerobic Blood Culture - Preliminary No Growth Day 1 Assessment: 1. Right leg abscess, GPC in gram stain; Staph aureus PCR negative, could be CoNS, Enterococcus or Strep 2. CKD 3. morbid obesity Plan: 1. change cefepime to vancomycin, goal trough 10-15 (ordered), await culture results. Will plan on prolonged IV antibiotics in setting of recurrence on oral antibiotics. 25 minutes floor time >50% face to face in counseling regarding antibiotic plans , all questions answered.
[2019-08-26] MEDS ORDERED: Piperacillin/Tazobac ADVAN(*) 3.375 GM in NS 0.9% 100 ML* 100 ML IVPB SCH (11:00)
[2019-08-26] MEDS ORDERED: Zosyn per Pharmacy* NOTE FOLLOW UP SCH (11:00)
[2019-08-26] MEDS ORDERED: Vancomycin per Pharmacy* NOTE FOLLOW UP SCH (11:00)
[2019-08-26] MEDS ORDERED: Vancomycin(*) 1,500 MG in NS 0.9% 250 ML* 250 ML IVPB ONE (11:00)
[2019-08-26] MEDS: Enoxaparin(*) 40 MG/0.4 ML SYR SUBCUT SCH (11:23)
--- NOTE | 2019-08-26 14:42 | PN ---
Subjective Date of Service: 08/26/19 Interval History: Pain control OK. No new c/o. Family History: Findings - Both parents had CAD. Social History: Findings - No alcohol or tobacco abuse. Lives with her who is her SDM. Past Medical History: Findings - VALENTIN, restless legs, HTN, asthma, GERD, hypothyroid, CKD, angina, PAF, CABG, arthroscopy, appy, choly, BL hip surgery, cataract surgery BL, 5 back surgeries, breast reduction Objective Active Medications: Acetaminophen (Tylenol Tab*) 650 mg PO Q6H PRN PRN Reason: FEVER/PAIN Last Admin: 08/26/19 02:00 Dose: 650 mg Albuterol (Ventolin Hfa Inhaler*) 2 puff INH Q6HR PRN PRN Reason: SHORTNESS OF BREATH Amiodarone HCl (Cordarone Tab*) 100 mg PO DAILY [facility] Last Admin: 08/26/19 08:01 Dose: 100 mg Amlodipine Besylate (Norvasc Tab*) 10 mg PO DAILY [facility] Last Admin: 08/26/19 07:59 Dose: 10 mg Cetirizine HCl (Zyrtec*) 10 mg PO DAILY [facility] Last Admin: 08/26/19 08:02 Dose: 10 mg Cholecalciferol (Vitamin D Tab*) 2,000 units PO DAILY [facility] Last Admin: 08/26/19 08:00 Dose: 2,000 units Docusate Sodium (Colace Cap*) 200 mg PO BID [facility] Last Admin: 08/26/19 08:00 Dose: 200 mg Ezetimibe (Zetia Tab*) 10 mg PO DAILY [facility] Last Admin: 08/26/19 08:02 Dose: 10 mg Enoxaparin Sodium (Lovenox(*)) 40 mg SUBCUT DAILY@1200 [facility] Last Admin: 08/26/19 11:23 Dose: 40 mg Fluticasone Propionate (Flonase Nasal [place] 50mcg*) 1 spray BOTH NARES BEDTIME [facility] Last Admin: 08/25/19 21:29 Dose: 1 spray Vancomycin HCl 500 mg/ Sodium (Chloride) 250 mls @ 166.667 mls/hr IVPB Q12H [facility] Levothyroxine Sodium (Synthroid Tab*) 175 mcg PO DAILY@0600 [facility] Last Admin: 08/26/19 05:26 Dose: 175 mcg Melatonin (Melatonin) 9 mg PO BEDTIME [facility] Last Admin: 08/25/19 21:28 Dose: 9 mg Metoprolol Succinate (Toprol Xl Tab*) 25 mg PO BID [facility] Last Admin: 08/26/19 07:59 Dose: 25 mg Mometasone Furoate (Asmanex 220 Mcg Mdi *) 1 puff INH QPM [facility] Last Admin: 08/25/19 20:10 Dose: 1 puff Montelukast Sodium (Singulair Tab*) 10 mg PO DAILY [facility] Last Admin: 08/26/19 08:00 Dose: 10 mg Multivitamins/Minerals (Theragran/Minerals Tab*) 1 tab PO DAILY [facility] Last Admin: 08/26/19 07:59 Dose: 1 tab Ondansetron HCl (Zofran Inj*) 4 mg IV Q4H PRN PRN Reason: NAUSEA Last Admin: 08/25/19 11:07 Dose: 4 mg Oxycodone HCl (Roxycodone Tab*) 20 mg PO Q4H PRN PRN Reason: PAIN - MODERATE Last Admin: 08/26/19 02:00 Dose: 20 mg Pantoprazole Sodium (Protonix Tab*) 40 mg PO BID [facility] Last Admin: 08/26/19 08:02 Dose: 40 mg Pharmacy Consult (Vancomycin Per Pharmacy*) 1 note FOLLOW UP .VANC PER PHARMACY [facility]; Protocol Pharmacy Profile Note (Vancomycin Trough Check) 1 note FOLLOW UP 0600 ONE Stop: 08/28/19 06:01 Pramipexole Dihydrochloride (Mirapex Tab*) 2 mg PO BEDTIME [facility] Last Admin: 08/25/19 21:28 Dose: 2 mg Primidone (Mysoline 250 Mg Tab (*)) 150 mg PO BEDTIME [facility] Last Admin: 08/25/19 21:29 Dose: 150 mg Senna (Senokot 8.6 Mg Tab*) 2 tab PO BID [facility] Last Admin: 08/26/19 07:58 Dose: 2 tab Torsemide (Demadex*) 20 mg PO DAILY [facility] Last Admin: 08/26/19 08:01 Dose: 20 mg Venlafaxine HCl (Effexor Xr Cap*) 37.5 mg PO BEDTIME [facility] Last Admin: 08/25/19 21:29 Dose: 37.5 mg Vital Signs - 8 hr 08/26/19 08/26/19 08/26/19 07:56 08:00 11:25 Temperature 97.2 F 97.0 F Pulse Rate 56 59 Respiratory 18 18 18 Rate Blood Pressure 134/55 120/36 (mmHg) O2 Sat by Pulse 100 100 97 Oximetry Oxygen Devices in Use Now: Nasal Cannula Extremities: No Edema, No Clubbing, Cyanosis - Swelling and erythema R leg much improved. Skin: No Nodules or Sclerosis, - Neurological: Alert and Oriented x 3, NL Sensation Result Diagrams: 08/24/19 15:51 08/24/19 15:51 Microbiology and Other Data: Microbiology 08/24/19 16:30 Skin and Soft Tissue MRSA/MSSA (PCR - Final Knee Right Mrsa Negative S.aureus Negative Gram Stain - Final Assess/Plan/Problems-Billing Assessment: - Patient Problems (1) Soft tissue infection Current Visit: Yes Status: Acute Code(s): L08.9 - LOCAL INFECTION OF THE SKIN AND SUBCUTANEOUS TISSUE, UNSP SNOMED Code(s): 39723614 Comment: Blood C&S x 2 neg day 1, changed to vanvo 08/26. Discussed with Dr. Salcedo. Surgery planned for 08/25. (2) Chronic pain Current Visit: No Status: Acute Code(s): G89.29 - OTHER CHRONIC PAIN SNOMED Code(s): 83999180 Comment: Continue prn oxycodone for wound pain. (3) Paroxysmal atrial fibrillation Current Visit: No Status: Acute Code(s): I48.0 - PAROXYSMAL ATRIAL FIBRILLATION SNOMED Code(s): 719923449 Comment: - S/p MAZE procedure. - Continue Amiodarone and Metoprolol. - EKG shows NSR. - Not on anticoagulation due to h/o GI bleed. (4) CKD (chronic kidney disease) Current Visit: No Status: Chronic Priority: High Code(s): N18.9 - CHRONIC KIDNEY DISEASE, UNSPECIFIED SNOMED Code(s): 144541390 Comment: Est GFR 36.3 on 08/24/19. (5) Obstructive sleep apnea Current Visit: No Status: Chronic Priority: High Code(s): G47.33 - OBSTRUCTIVE SLEEP APNEA (ADULT) (PEDIATRIC) SNOMED Code(s): 09004838 Comment: - Patient wears supplemental O2 2 L/min overnight, but not CPAP (6) Morbid obesity Current Visit: Yes Status: Acute Code(s): E66.01 - MORBID (SEVERE) OBESITY DUE TO EXCESS CALORIES SNOMED Code(s): 246445561 Comment: BMI 43.5.
[2019-08-26] MEDS ORDERED: Piperacillin/Tazobac ADVAN(*) 3.375 GM in NS 0.9% 100 ML* 100 ML IVPB ONE (15:00)
[2019-08-26] MEDS: Linezolid 600 MG IVPREMIX(*) 600 MG/300 ML BAG IVPB SCH (17:00)
[2019-08-26] MEDS ORDERED: Vancomycin(*) 500 MG in NS 0.9% 250 ML* 250 ML IVPB SCH (18:00)
[2019-08-26] MEDS: Mometasone 220 MCG MDI INH SCH (19:39)
[2019-08-26] MEDS ORDERED: Lidocaine 2% JELLY* 6 ML JELLY TOPICAL PRN (21:22)
[2019-08-26] MEDS: Melatonin 3 MG TAB PO SCH (21:48)
[2019-08-26] MEDS: Primidone 50 mg TAB (*) PO SCH (21:48)
[2019-08-26] MEDS: Pramipexole TAB* 0.5 MG PO SCH (21:48)
[2019-08-26] MEDS: Venlafaxine EXT RELEASE CAP* 37.5 MG PO SCH (21:48)
[2019-08-26] MEDS: Fluticasone NASAL SPRAY 50MCG* 16 gm SPRAY BTL BOTH NARES SCH (21:53)
[2019-08-27] MEDS: Linezolid 600 MG IVPREMIX(*) 600 MG/300 ML BAG IVPB SCH ×2 (04:46→17:06)
[2019-08-27] MEDS: Levothyroxine TAB* 175 MCG TAB PO SCH (04:46)
[2019-08-27] MEDS: oxyCODONE TAB* 5 MG TAB PO PRN ×2 (04:48→13:21)
[2019-08-27] MEDS: Acetaminophen TAB* 325 MG PO PRN (04:51)
[2019-08-27 06:27] LABS: ABS Eosinophils 0.2 10^3/ul (0-0.6); ABS Lymphocytes 1.7 10^3/ul (1.0-4.8); ABS Monocytes 0.4 10^3/ul (0-0.8); Eosinophil % 5.3 %; Hematocrit 23 % (35-47); Hemoglobin 8.1 g/dL (12.0-16.0); Lymphocyte % 38.3 %; Mean Corpuscular HGB Conc 35 g/dL (31-36); Mean Corpuscular Hemoglobin 34 pg (27-31); Mean Corpuscular Volume 97 fL (80-97); Mean Platelet Volume 7.7 fL (7.4-10.4); Nucleated Red Blood Cells % 0.1; Platelet Count 182 10^3/uL (150-450); Red Blood Count 2.41 10^6 /uL (3.70-4.87); Red Cell Distribution Width 13 % (10-15); White Blood Count 4.4 10^3/uL (3.5-10.8)
[2019-08-27 06:47] LABS: BUN/Creatinine Ratio 29.8 (8-20); C Reactive Protein 30.18 mg/L (<8.01); EGFR African American 27.8 (>60); Potassium 4.8 mmol/L (3.5-5.0)
[2019-08-27] MEDS: Torsemide TAB* 20 MG PO SCH (08:32)
[2019-08-27] MEDS: Ezetimibe TAB* 10 MG PO SCH (08:32)
[2019-08-27] MEDS: Docusate CAP* 100 MG PO SCH ×2 (08:32→20:37)
[2019-08-27] MEDS: Multivitamins/Minerals TAB PO SCH (08:32)
[2019-08-27] MEDS: Pantoprazole TAB * 40 MG TAB PO SCH ×2 (08:32→20:37)
[2019-08-27] MEDS: Senna TAB 8.6 mg* TAB PO SCH ×2 (08:33→20:37)
[2019-08-27] MEDS: Cetirizine* 10 MG TAB PO SCH (08:33)
[2019-08-27] MEDS: Cholecalciferol TAB* 1000 UNITS PO SCH (08:33)
[2019-08-27] MEDS: Montelukast Sodium TAB* 10 MG PO SCH (08:33)
[2019-08-27] MEDS: Amiodarone TAB* 200 MG PO SCH (08:36)
[2019-08-27] MEDS: Metoprolol Succinate XL TAB* 25 MG PO SCH ×2 (08:45→20:37)
[2019-08-27] MEDS: amLODIPine TAB* 5 MG PO SCH (08:45)
--- NOTE | 2019-08-27 10:11 | PN ---
Progress Note - Progress Note Date of Service: 08/27/19 SOAP: Subjective: Patient seen and examined OOB in chair. She states she is feeling tired. Her pain is well controlled on meds. She states the swelling has decreased sig about her R knee and calf. She denies CP, SOB, f/c. Objective: [General: A&O. NAD. RLE: Vac in place with good suction. Jairo in place. Calf soft and non-tender with no palpable cords. +DF/PF right ankle. DP pulse 2+ Assessment: [POD#3 Right medial knee I&D and vac placement Plan: [Cont pain meds as needed PT/OT To OR in the morning for VAC change. NPO after midnight Vital Signs Temp Pulse Resp BP Pulse Ox 97.5 F 51 17 112/41 99 08/27/19 07:44 08/27/19 08:31 08/27/19 07:44 08/27/19 08:31 08/27/19 07:44 Laboratory Last Values WBC 4.4 10^3/uL (3.5-10.8) 08/27/19 06:08 RBC 2.41 10^6 /uL (3.70-4.87) L 08/27/19 06:08 Hgb 8.1 g/dL (12.0-16.0) L 08/27/19 06:08 Hct 23 % (35-47) L 08/27/19 06:08 MCV 97 fL (80-97) 08/27/19 06:08 MCH 34 pg (27-31) H 08/27/19 06:08 MCHC 35 g/dL (31-36) 08/27/19 06:08 RDW 13 % (10-15) 08/27/19 06:08 Plt Count 182 10^3/uL (150-450) 08/27/19 06:08 MPV 7.7 fL (7.4-10.4) 08/27/19 06:08 Neut % (Auto) 45.9 % 08/27/19 06:08 Lymph % (Auto) 38.3 % 08/27/19 06:08 [place] % (Auto) 9.9 % 08/27/19 06:08 Eos % (Auto) 5.3 % 08/27/19 06:08 Baso % (Auto) 0.6 % 08/27/19 06:08 Absolute Neuts (auto) 2.0 10^3/ul (1.5-7.7) 08/27/19 06:08 Absolute Lymphs (auto) 1.7 10^3/ul (1.0-4.8) 08/27/19 06:08 Absolute Monos (auto) 0.4 10^3/ul (0-0.8) 08/27/19 06:08 Absolute Eos (auto) 0.2 10^3/ul (0-0.6) 08/27/19 06:08 Absolute Basos (auto) 0.0 10^3/ul (0-0.2) 08/27/19 06:08 Absolute Nucleated RBC 0.0 10^3/ul 08/27/19 06:08 Nucleated RBC % 0.1 08/27/19 06:08 Sodium 133 mmol/L (135-145) L 08/27/19 06:08 Potassium 4.8 mmol/L (3.5-5.0) 08/27/19 06:08 Chloride 104 mmol/L (101-111) 08/27/19 06:08 Carbon Dioxide 25 mmol/L (22-32) 08/27/19 06:08 Anion Gap 4 mmol/L (2-11) 08/27/19 06:08 BUN 62 mg/dL (6-24) H 08/27/19 06:08 Creatinine 2.08 mg/dL (0.51-0.95) H 08/27/19 06:08 Est GFR ( Amer) 27.8 (>60) 08/27/19 06:08 Est GFR (Non-Af Amer) 23.0 (>60) 08/27/19 06:08 BUN/Creatinine Ratio 29.8 (8-20) H 08/27/19 06:08 Glucose 134 mg/dL (70-100) H 08/27/19 06:08 Calcium 8.0 mg/dL (8.6-10.3) L 08/27/19 06:08 Total Bilirubin 0.30 mg/dL (0.2-1.0) 08/24/19 15:51 AST 13 U/L (13-39) 08/24/19 15:51 ALT 8 U/L (7-52) 08/24/19 15:51 Alkaline Phosphatase 103 U/L (34-104) 08/24/19 15:51 C-Reactive Protein 30.18 mg/L (<8.01) H 08/27/19 06:08 Total Protein 6.0 g/dL (6.4-8.9) L 08/24/19 15:51 Albumin 3.1 g/dL (3.2-5.2) L 08/24/19 15:51 Globulin 2.9 g/dL (2-4) 08/24/19 15:51 Albumin/Globulin Ratio 1.1 (1-3) 08/24/19 15:51
--- NOTE | 2019-08-27 11:26 | PN ---
Progress Note - Progress Note Date of Service: 08/27/19 SOAP: Subjective: CC: Right leg infection HPI: Ms. Martin is a 78 yo female with PMH significant for CKD3, VALENTIN, lymphedema, asthma, RLS, HTN, anemia, myeloproliferative disorder, heart failure , A fib, essential tremor, fibromyalgia, GERD, hypothyroidism, headache, and CAD ; s/p excision of right medial leg cyst with recurrence of drainage and erythema while on doxycycline. Denies fever, chills, nausea, vomiting, or diarrhea. Reports discomfort in the right medial leg at the knee overnight, this improved after the JERRY wrap was loosened. Objective: Vital Signs 08/27/19 08/27/19 07:44 08:31 Temperature 97.5 F Pulse Rate 49 51 Respiratory 17 Rate Blood Pressure 116/43 112/41 (mmHg) O2 Sat by Pulse 99 Oximetry Physical Exam: General: NAD, laying in bed Neurological: Alert and Oriented HEENT: Moist MM Cardiovascular: Heart rate regular Respiratory: Lung sounds clear Abdominal: Bowel sounds present; ABD large, soft and non tender MSK: Full ROM of the right knee Skin: No rash. Wound vac to the medial aspect of the right knee in place, no surrounding erythema Laboratory Results - last 24 hr 08/27/19 08/27/19 06:08 06:08 WBC 4.4 RBC 2.41 L Hgb 8.1 L Hct 23 L MCV 97 MCH 34 H MCHC 35 RDW 13 Plt Count 182 MPV 7.7 Neut % (Auto) 45.9 Lymph % (Auto) 38.3 [place] % (Auto) 9.9 Eos % (Auto) 5.3 Baso % (Auto) 0.6 Absolute Neuts (auto) 2.0 Absolute Lymphs (auto) 1.7 Absolute Monos (auto) 0.4 Absolute Eos (auto) 0.2 Absolute Basos (auto) 0.0 Absolute Nucleated RBC 0.0 Nucleated RBC % 0.1 Sodium 133 L Potassium 4.8 Chloride 104 Carbon Dioxide 25 Anion Gap 4 BUN 62 H Creatinine 2.08 H Est GFR ( Amer) 27.8 Est GFR (Non-Af Amer) 23.0 BUN/Creatinine Ratio 29.8 H Glucose 134 H Calcium 8.0 L C-Reactive Protein 30.18 H Microbiology 08/24/19 16:30 Skin and Soft Tissue MRSA/MSSA (PCR - Final Knee Right Mrsa Negative S.aureus Negative Gram Stain - Final Wound Culture - Preliminary Enterococcus Faecium 08/24/19 15:51 Aerobic Blood Culture - Preliminary Blood Venous No Growth Day 2 Anaerobic Blood Culture - Preliminary No Growth Day 2 08/24/19 15:52 Aerobic Blood Culture - Preliminary Blood Venous No Growth Day 2 Anaerobic Blood Culture - Preliminary No Growth Day 2 08/25/19 16:30 Skin and Soft Tissue MRSA/MSSA (PCR - Final Knee Right Mrsa Negative S.aureus Negative Gram Stain - Final Wound Culture - Preliminary Enterococcus Faecium 08/25/19 16:30 Anaerobic Culture - Preliminary Wound Assessment: 1. Right leg abscess. Wound cultures with Enterococcus Faecium. S/P I+D, POD # 2. Continues to have a wound vac in place. Blood cultures with no growth to date. Afebrile and no leukocytosis. CRP trending down. 2. CKD, stage 3. 3. Morbid obesity. BMI 43.5. Plan: Continue Linezolid. She will need a prolonged course of IV ABX. Will have a PICC line placed. Weekly labs while on IV ABX: CBC, CMP, and CRP. Monitor for side effects while on Linezolid and Effexor (AMS, confusion, and other signs of serotonin syndrome).
--- NOTE | 2019-08-27 11:57 | PN ---
Subjective Date of Service: 08/27/19 Interval History: No subj change. Adequate pain control. Family History: Findings - Both parents had CAD. Social History: Findings - No alcohol or tobacco abuse. Lives with her who is her SDM. Past Medical History: Findings - VALENTIN, restless legs, HTN, asthma, GERD, hypothyroid, CKD, angina, PAF, CABG, arthroscopy, appy, choly, BL hip surgery, cataract surgery BL, 5 back surgeries, breast reduction Objective Active Medications: Acetaminophen (Tylenol Tab*) 650 mg PO Q6H PRN PRN Reason: FEVER/PAIN Last Admin: 08/27/19 04:51 Dose: 650 mg Albuterol (Ventolin Hfa Inhaler*) 2 puff INH Q6HR PRN PRN Reason: SHORTNESS OF BREATH Amiodarone HCl (Cordarone Tab*) 100 mg PO DAILY [facility] Last Admin: 08/27/19 08:36 Dose: 100 mg Amlodipine Besylate (Norvasc Tab*) 10 mg PO DAILY [facility] Last Admin: 08/27/19 08:45 Dose: Not Given Cetirizine HCl (Zyrtec*) 10 mg PO DAILY [facility] Last Admin: 08/27/19 08:33 Dose: 10 mg Cholecalciferol (Vitamin D Tab*) 2,000 units PO DAILY [facility] Last Admin: 08/27/19 08:33 Dose: 2,000 units Docusate Sodium (Colace Cap*) 200 mg PO BID [facility] Last Admin: 08/27/19 08:32 Dose: 200 mg Ezetimibe (Zetia Tab*) 10 mg PO DAILY [facility] Last Admin: 08/27/19 08:32 Dose: 10 mg Enoxaparin Sodium (Lovenox(*)) 40 mg SUBCUT DAILY@1200 [facility] Last Admin: 08/26/19 11:23 Dose: 40 mg Fluticasone Propionate (Flonase Nasal [place] 50mcg*) 1 spray BOTH NARES BEDTIME [facility] Last Admin: 08/26/19 21:53 Dose: 1 spray Linezolid (Zyvox 600 Mg Ivpremix(*)) 600 mg in 300 mls @ 300 mls/hr IVPB Q12H [facility] Last Admin: 08/27/19 04:46 Dose: 300 mls/hr Levothyroxine Sodium (Synthroid Tab*) 175 mcg PO DAILY@0600 [facility] Last Admin: 08/27/19 04:46 Dose: 175 mcg Lidocaine HCl (Lidocaine 2% Jelly*) 1 applic TOPICAL TID PRN PRN Reason: PAIN - MILD Melatonin (Melatonin) 9 mg PO BEDTIME [facility] Last Admin: 08/26/19 21:48 Dose: 9 mg Metoprolol Succinate (Toprol Xl Tab*) 25 mg PO BID [facility] Last Admin: 08/27/19 08:45 Dose: Not Given Mometasone Furoate (Asmanex 220 Mcg Mdi *) 1 puff INH QPM [facility] Last Admin: 08/26/19 19:39 Dose: 1 puff Montelukast Sodium (Singulair Tab*) 10 mg PO DAILY [facility] Last Admin: 08/27/19 08:33 Dose: 10 mg Multivitamins/Minerals (Theragran/Minerals Tab*) 1 tab PO DAILY [facility] Last Admin: 08/27/19 08:32 Dose: 1 tab Ondansetron HCl (Zofran Inj*) 4 mg IV Q4H PRN PRN Reason: NAUSEA Last Admin: 08/25/19 11:07 Dose: 4 mg Oxycodone HCl (Roxycodone Tab*) 20 mg PO Q4H PRN PRN Reason: PAIN - MODERATE Last Admin: 08/27/19 04:48 Dose: 20 mg Pantoprazole Sodium (Protonix Tab*) 40 mg PO BID [facility] Last Admin: 08/27/19 08:32 Dose: 40 mg Pramipexole Dihydrochloride (Mirapex Tab*) 2 mg PO BEDTIME [facility] Last Admin: 08/26/19 21:48 Dose: 2 mg Primidone (Mysoline 250 Mg Tab (*)) 150 mg PO BEDTIME [facility] Last Admin: 08/26/19 21:48 Dose: 150 mg Senna (Senokot 8.6 Mg Tab*) 2 tab PO BID [facility] Last Admin: 08/27/19 08:33 Dose: 2 tab Torsemide (Demadex*) 20 mg PO DAILY [facility] Last Admin: 08/27/19 08:32 Dose: 20 mg Venlafaxine HCl (Effexor Xr Cap*) 37.5 mg PO BEDTIME [facility] Last Admin: 08/26/19 21:48 Dose: 37.5 mg Vital Signs - 8 hr 08/27/19 08/27/19 08/27/19 04:48 06:50 07:44 Temperature 97.5 F Pulse Rate 49 Respiratory 18 18 17 Rate Blood Pressure 116/43 (mmHg) O2 Sat by Pulse 99 Oximetry 08/27/19 08/27/19 08/27/19 08:31 10:00 11:34 Temperature 97.5 F Pulse Rate 51 58 Respiratory 16 16 Rate Blood Pressure 112/41 128/58 (mmHg) O2 Sat by Pulse 93 Oximetry 08/27/19 11:38 Temperature Pulse Rate Respiratory Rate Blood Pressure (mmHg) O2 Sat by Pulse 93 Oximetry Oxygen Devices in Use Now: None Appearance: Alert, supine in bed. In good spirits. Looks comfortable. Eyes: No Scleral Icterus Extremities: No Clubbing, Cyanosis, - - tr edema BL Skin: No Nodules or Sclerosis - R knee wrapped. Neurological: Alert and Oriented x 3, NL Sensation Result Diagrams: 08/27/19 06:08 08/27/19 06:08 Microbiology and Other Data: Microbiology 08/24/19 16:30 Skin and Soft Tissue MRSA/MSSA (PCR - Final Knee Right Mrsa Negative S.aureus Negative Gram Stain - Final Assess/Plan/Problems-Billing Assessment: - Patient Problems (1) Soft tissue infection Current Visit: Yes Status: Acute Code(s): L08.9 - LOCAL INFECTION OF THE SKIN AND SUBCUTANEOUS TISSUE, UNSP SNOMED Code(s): 16040998 Comment: Blood C&S x 2 neg day 1, changed to vanco 08/26. Discussed with Dr. Salcedo. Another washout planned for 08/28. WoundVac in place. (2) Chronic pain Current Visit: No Status: Acute Code(s): G89.29 - OTHER CHRONIC PAIN SNOMED Code(s): 28143854 Comment: Continue prn oxycodone for wound pain. (3) Paroxysmal atrial fibrillation Current Visit: No Status: Acute Code(s): I48.0 - PAROXYSMAL ATRIAL FIBRILLATION SNOMED Code(s): 215779251 Comment: - S/p MAZE procedure. - Continue Amiodarone and Metoprolol. - EKG shows NSR. - Not on anticoagulation due to h/o GI bleed. (4) CKD (chronic kidney disease) Current Visit: No Status: Chronic Priority: High Code(s): N18.9 - CHRONIC KIDNEY DISEASE, UNSPECIFIED SNOMED Code(s): 221577486 Comment: Est GFR 36.3 on 08/24/19, 23.0 on 08/27/19, still within recent results. Would repeat BMP in 2-3 days. (5) Obstructive sleep apnea Current Visit: No Status: Chronic Priority: High Code(s): G47.33 - OBSTRUCTIVE SLEEP APNEA (ADULT) (PEDIATRIC) SNOMED Code(s): 77564809 Comment: - Patient wears supplemental O2 2 L/min overnight, but not CPAP (6) Morbid obesity Current Visit: Yes Status: Acute Code(s): E66.01 - MORBID (SEVERE) OBESITY DUE TO EXCESS CALORIES SNOMED Code(s): 565182648 Comment: BMI 43.5. (7) Anemia Current Visit: No Status: Acute Priority: High Code(s): D64.9 - ANEMIA, UNSPECIFIED SNOMED Code(s): 781933719 Comment: Ferritin 384 in 04/08. - Hgb 8.1 08/27/19, would repeat in a few days.
[2019-08-27] MEDS ORDERED: Buffered Lidocaine 1% SYRIN* 1 ML/SYRINGE INTRADERM ONE (12:46)
[2019-08-27] MEDS: Enoxaparin(*) 40 MG/0.4 ML SYR SUBCUT SCH (13:21)
[2019-08-27] MEDS: Pramipexole TAB* 0.5 MG PO SCH (20:36)
[2019-08-27] MEDS: Primidone 50 mg TAB (*) PO SCH (20:36)
[2019-08-27] MEDS: Melatonin 3 MG TAB PO SCH (20:37)
[2019-08-27] MEDS: Venlafaxine EXT RELEASE CAP* 37.5 MG PO SCH (20:37)
[2019-08-27] MEDS: Fluticasone NASAL SPRAY 50MCG* 16 gm SPRAY BTL BOTH NARES SCH (20:44)
[2019-08-27] MEDS: Mometasone 220 MCG MDI INH SCH (21:00)
[2019-08-28] MEDS: Linezolid 600 MG IVPREMIX(*) 600 MG/300 ML BAG IVPB SCH ×2 (04:42→15:58)
[2019-08-28] MEDS: oxyCODONE TAB* 5 MG TAB PO PRN ×4 (04:52→19:51)
[2019-08-28] MEDS: Levothyroxine TAB* 175 MCG TAB PO SCH (04:53)
[2019-08-28] MEDS ORDERED: Vancomycin Trough Check NOTE FOLLOW UP ONE (06:00)
[2019-08-28] MEDS ORDERED: Naloxone* 0.4 MG/ML 1 ML VIAL IV PRN ×2 (07:42→10:22)
[2019-08-28] MEDS ORDERED: fentaNYL* 50 MCG/ML 2 ML VIAL (100 MCG VIAL) ONE (08:03)
[2019-08-28] MEDS ORDERED: Bupivacaine 0.5%* 50 ML MDV VIAL ONE (08:14)
[2019-08-28] MEDS ORDERED: oxyCODONE TAB* 5 MG TAB ONE (09:00)
[2019-08-28] MEDS: amLODIPine TAB* 5 MG PO SCH (09:04)
[2019-08-28] MEDS ORDERED: fentaNYL* 50 MCG/ML 2 ML VIAL (100 MCG VIAL) IV PRN (10:22)
[2019-08-28] MEDS: Ezetimibe TAB* 10 MG PO SCH (10:33)
[2019-08-28] MEDS: Pantoprazole TAB * 40 MG TAB PO SCH ×2 (10:33→19:48)
[2019-08-28] MEDS: Cholecalciferol TAB* 1000 UNITS PO SCH (10:33)
[2019-08-28] MEDS: Multivitamins/Minerals TAB PO SCH (10:33)
[2019-08-28] MEDS: Senna TAB 8.6 mg* TAB PO SCH ×2 (10:33→19:48)
[2019-08-28] MEDS: Cetirizine* 10 MG TAB PO SCH (10:33)
[2019-08-28] MEDS: Montelukast Sodium TAB* 10 MG PO SCH (10:34)
[2019-08-28] MEDS: Docusate CAP* 100 MG PO SCH ×2 (10:34→19:47)
[2019-08-28] MEDS: Amiodarone TAB* 200 MG PO SCH (10:34)
[2019-08-28] MEDS: Metoprolol Succinate XL TAB* 25 MG PO SCH ×2 (10:34→19:47)
[2019-08-28] MEDS: Torsemide TAB* 20 MG PO SCH (10:35)
[2019-08-28] MEDS: Enoxaparin(*) 30 MG/0.3 ML SYR SUBCUT SCH (10:36)
[2019-08-28] MEDS ORDERED: Benzocaine/Menthol LOZ* 1 LOZENGE PO PRN (11:22)
[2019-08-28] MEDS ORDERED: Magnesium Hydroxide LIQ* 30 ML UDC PO ONE (14:32)
--- NOTE | 2019-08-28 14:33 | PN ---
Subjective Date of Service: 08/28/19 Interval History: No acute events overnight. Afebrile. taken to OR with Dr. Vaca, new wound vac placed. Wound Culture resulted in VRE. Already on linezolid. Complaint of b/l 1st toe sensitivity to light touch and swollen feeling. Has tried gabapentin in past but stopped as she felt it was not effective. Does not know the dose. 1 BM since here (08/24) sore throat. Family History: Findings - Both parents had CAD. Social History: Findings - No alcohol or tobacco abuse. Lives with her who is her SDM. Past Medical History: Findings - VALENTIN, restless legs, HTN, asthma, GERD, hypothyroid, CKD, angina, PAF, CABG, arthroscopy, appy, choly, BL hip surgery, cataract surgery BL, 5 back surgeries, breast reduction Objective Active Medications: Acetaminophen (Tylenol Tab*) 650 mg PO Q6H PRN PRN Reason: FEVER/PAIN Last Admin: 08/27/19 04:51 Dose: 650 mg Albuterol (Ventolin Hfa Inhaler*) 2 puff INH Q6HR PRN PRN Reason: SHORTNESS OF BREATH Amiodarone HCl (Cordarone Tab*) 100 mg PO DAILY [facility] Last Admin: 08/28/19 10:34 Dose: 100 mg Amlodipine Besylate (Norvasc Tab*) 10 mg PO DAILY [facility] Last Admin: 08/28/19 09:04 Dose: 10 mg Cetirizine HCl (Zyrtec*) 10 mg PO DAILY [facility] Last Admin: 08/28/19 10:33 Dose: 10 mg Cholecalciferol (Vitamin D Tab*) 2,000 units PO DAILY [facility] Last Admin: 08/28/19 10:33 Dose: 2,000 units Docusate Sodium (Colace Cap*) 200 mg PO BID [facility] Last Admin: 08/28/19 10:34 Dose: 200 mg Ezetimibe (Zetia Tab*) 10 mg PO DAILY [facility] Last Admin: 08/28/19 10:33 Dose: 10 mg Enoxaparin Sodium (Lovenox(*)) 30 mg SUBCUT DAILY@1200 [facility] Last Admin: 08/28/19 10:36 Dose: 30 mg Fluticasone Propionate (Flonase Nasal [place] 50mcg*) 1 spray BOTH NARES BEDTIME [facility] Last Admin: 08/27/19 20:44 Dose: 1 spray Linezolid (Zyvox 600 Mg Ivpremix(*)) 600 mg in 300 mls @ 300 mls/hr IVPB Q12H [facility] Last Admin: 08/28/19 04:42 Dose: 300 mls/hr Lactated Ringer's (Lactated Ringers 1000 Ml Bag*) 1,000 mls @ 125 mls/hr IV PER RATE [facility] Levothyroxine Sodium (Synthroid Tab*) 175 mcg PO DAILY@0600 [facility] Last Admin: 08/28/19 04:53 Dose: 175 mcg Lidocaine HCl (Lidocaine 2% Jelly*) 1 applic TOPICAL TID PRN PRN Reason: PAIN - MILD Melatonin (Melatonin) 9 mg PO BEDTIME [facility] Last Admin: 08/27/19 20:37 Dose: 9 mg Metoprolol Succinate (Toprol Xl Tab*) 25 mg PO BID [facility] Last Admin: 08/28/19 10:34 Dose: 25 mg Mometasone Furoate (Asmanex 220 Mcg Mdi *) 1 puff INH QPM [facility] Last Admin: 08/27/19 21:00 Dose: 1 puff Montelukast Sodium (Singulair Tab*) 10 mg PO DAILY [facility] Last Admin: 08/28/19 10:34 Dose: 10 mg Multivitamins/Minerals (Theragran/Minerals Tab*) 1 tab PO DAILY [facility] Last Admin: 08/28/19 10:33 Dose: 1 tab Ondansetron HCl (Zofran Inj*) 4 mg IV Q4H PRN PRN Reason: NAUSEA Last Admin: 08/25/19 11:07 Dose: 4 mg Oxycodone HCl (Roxycodone Tab*) 20 mg PO Q4H PRN PRN Reason: PAIN - MODERATE Last Admin: 08/28/19 09:02 Dose: 20 mg Pantoprazole Sodium (Protonix Tab*) 40 mg PO BID [facility] Last Admin: 08/28/19 10:33 Dose: 40 mg Pramipexole Dihydrochloride (Mirapex Tab*) 2 mg PO BEDTIME [facility] Last Admin: 08/27/19 20:36 Dose: 2 mg Primidone (Mysoline 250 Mg Tab (*)) 150 mg PO BEDTIME [facility] Last Admin: 08/27/19 20:36 Dose: 150 mg Senna (Senokot 8.6 Mg Tab*) 2 tab PO BID [facility] Last Admin: 08/28/19 10:33 Dose: 2 tab Throat Lozenges (Chloraseptic Juliane*) 1 juliane PO Q6H PRN PRN Reason: SORE THROAT Torsemide (Demadex*) 20 mg PO DAILY [facility] Last Admin: 08/28/19 10:35 Dose: 20 mg Venlafaxine HCl (Effexor Xr Cap*) 37.5 mg PO BEDTIME [facility] Last Admin: 08/27/19 20:37 Dose: 37.5 mg Vital Signs - 8 hr 08/28/19 08/28/19 08/28/19 06:52 07:41 08:00 Temperature 97.5 F Pulse Rate 59 Respiratory 20 16 18 Rate Blood Pressure 133/65 (mmHg) O2 Sat by Pulse 95 100 Oximetry 08/28/19 08/28/19 08/28/19 08:52 08:55 09:00 Temperature 96.8 F Pulse Rate 50 Respiratory 14 16 16 Rate Blood Pressure 198/85 (mmHg) O2 Sat by Pulse 100 Oximetry 08/28/19 08/28/19 08/28/19 09:02 09:05 09:11 Temperature 96.8 F Pulse Rate 58 Respiratory 16 13 16 Rate Blood Pressure 165/96 (mmHg) O2 Sat by Pulse 100 Oximetry 08/28/19 08/28/19 08/28/19 09:16 09:20 09:21 Temperature Pulse Rate 57 56 Respiratory 16 16 14 Rate Blood Pressure 173/119 170/70 (mmHg) O2 Sat by Pulse 100 100 Oximetry 08/28/19 08/28/19 08/28/19 09:25 09:30 09:35 Temperature Pulse Rate 54 55 Respiratory 15 16 16 Rate Blood Pressure 161/63 162/71 (mmHg) O2 Sat by Pulse 100 100 Oximetry 08/28/19 08/28/19 08/28/19 09:52 10:00 13:50 Temperature 97.3 F 98.4 F Pulse Rate 114 53 56 Respiratory 18 16 18 Rate Blood Pressure 137/47 142/63 138/54 (mmHg) O2 Sat by Pulse 94 100 96 Oximetry Oxygen Devices in Use Now: None Appearance: NAD Respiratory: Symmetrical Chest Expansion and Respiratory Effort, Clear to Auscultation Cardiovascular: NL Sounds; No Murmurs; No JVD, RRR Abdominal: NL Sounds; No Tenderness; No Distention Extremities: - - 1+ pedal edema in rigtht foot. wound vacc to medial right knee Neurological: Alert and Oriented x 3, NL Sensation Nutrition: Taking PO's Result Diagrams: 08/27/19 06:08 08/27/19 06:08 Microbiology and Other Data: Microbiology 08/25/19 16:30 Knee Right Skin and Soft Tissue MRSA/MSSA (PCR - Final Mrsa Negative S.aureus Negative 08/25/19 16:30 Knee Right Gram Stain - Final 08/25/19 16:30 Knee Right Wound Culture - Preliminary Vre Enterococcus Faecium 08/25/19 16:30 Wound Anaerobic Culture - Preliminary 08/24/19 16:30 Knee Right Skin and Soft Tissue MRSA/MSSA (PCR - Final Mrsa Negative S.aureus Negative 08/24/19 16:30 Knee Right Gram Stain - Final 08/24/19 16:30 Knee Right Wound Culture - Final Enterococcus Faecium Normal Dede 08/24/19 15:51 Blood Venous Aerobic Blood Culture - Preliminary No Growth Day 3 08/24/19 15:51 Blood Venous Anaerobic Blood Culture - Preliminary No Growth Day 3 08/24/19 15:52 Blood Venous Aerobic Blood Culture - Preliminary No Growth Day 3 08/24/19 15:52 Blood Venous Anaerobic Blood Culture - Preliminary No Growth Day 3 Assess/Plan/Problems-Billing Assessment: 78 year old female PMH of CAD s/p CABG, CKD, HTN, VALENTIN([facility]), BMI 43, pAfib (on amio, no a/c 2/2 gib), myeloproliferative disorder, gout, recent right medial knee washout's (culture negatve) with worsening symptoms on outpatient doxycyline. - Patient Problems (1) Abscess of knee, right Current Visit: No Status: Acute Code(s): L02.415 - CUTANEOUS ABSCESS OF RIGHT LOWER LIMB SNOMED Code(s): 85536281 Comment: - Had been on bactrim initially for suspected infected jauregui's cyst - Initial I&D by Ortho on 08/09/2019 with drainage of clear fluid, no growth on culture. - Returned with drainage from knee while on outpatient doxycyline. - s/p I&D 08/25. Cx with VRE. Continue linezolid. s/p washout and Wound vacc reapplication today (08/28) and planned again 08/30. - ID recs appreciated (2) CAD (coronary artery disease) Current Visit: No Status: Chronic Priority: High Code(s): I25.10 - ATHSCL HEART DISEASE OF [place] CORONARY ARTERY W/O ANG PCTRS SNOMED Code(s): 44791069 Comment: - Stable. - Continue metoprolol, amlodipine, Zetia. She's intolerant of statins and cannot afford PCSK9 agents. - Home plavix has been held since admission given her surgical procedures ( which still are planned). CABG was ~Aug 2018. (3) Chronic pain Current Visit: No Status: Acute Code(s): G89.29 - OTHER CHRONIC PAIN SNOMED Code(s): 88891345 Comment: Continue prn oxycodone 20mg q4h prn for wound pain and chronic pain. On norco 20mg/625mg q4 at home. (4) Obstructive sleep apnea Current Visit: No Status: Chronic Priority: High Code(s): G47.33 - OBSTRUCTIVE SLEEP APNEA (ADULT) (PEDIATRIC) SNOMED Code(s): 03154944 Comment: - Patient wears supplemental O2 2 L/min overnight, but not CPAP (5) Essential tremor Current Visit: No Status: Acute Code(s): G25.0 - ESSENTIAL TREMOR SNOMED Code(s): 462647072 Comment: Primidone (6) RLS (restless legs syndrome) Current Visit: No Status: Chronic Priority: High Comment: - Continue mirapex (7) Chronic hypoxemic respiratory failure Current Visit: No Status: Chronic Priority: High Comment: - Continue oxygen and medications as above (8) Asthma Current Visit: No Status: Chronic Priority: High Code(s): J45.909 - UNSPECIFIED ASTHMA, UNCOMPLICATED SNOMED Code(s): 201305136 Comment: - Continue mometasone, albuterol, singulair (9) Chronic diastolic (congestive) heart failure Current Visit: No Status: Acute Code(s): I50.32 - CHRONIC DIASTOLIC ( CONGESTIVE) HEART FAILURE SNOMED Code(s): 178708423 Comment: Chronic LE edema that is essentially at baseline. Will continue torsemide 20mg daily. (10) CKD (chronic kidney disease), stage III Current Visit: No Status: Chronic Priority: High Code(s): N18.3 - CHRONIC KIDNEY DISEASE, STAGE 3 (MODERATE) SNOMED Code(s): 575272172 Comment: - GIDEON with - [employer]OR fluctuatin.08 on 08/27 up from 1.40 on 08/24. In setting of infection. Hold torsemide 20mg for tomorrow. Get Urine lytes for FeUrea.. Repeat BMP. (11) Paroxysmal atrial fibrillation Current Visit: No Status: Acute Code(s): I48.0 - PAROXYSMAL ATRIAL FIBRILLATION SNOMED Code(s): 622709605 Comment: - S/p MAZE procedure. - Continue Amiodarone and Metoprolol. - Not on anticoagulation due to h/o GI bleed. (12) Morbid obesity Current Visit: Yes Status: Acute Code(s): E66.01 - MORBID (SEVERE) OBESITY DUE TO EXCESS CALORIES SNOMED Code(s): 181793777 Comment: BMI 43.5. (13) Toe pain, bilateral Current Visit: Yes Status: Acute Code(s): M79.674 - PAIN IN RIGHT TOE(S); M79.675 - PAIN IN LEFT TOE(S) SNOMED Code(s): 907764594 Comment: Hx of gout, will add on Uric acid. Sounds like a degree of peripheral neuropathy, try to find out what dosing of gabapentin she has been on in the past (she does not know). Status and Disposition: medicine inpatient requiring additional knee washouts. PT ordered. Uses cane at baseline
[2019-08-28 15:15] LABS: Uric Acid 10.5 mg/dL (2.3-6.6)
[2019-08-28] MEDS: Gabapentin CAP(*) 100 MG PO SCH ×2 (15:58→19:47)
[2019-08-28 19:38] LABS: Urine Creatinine Concentration 34.95 mg/dL
[2019-08-28] MEDS: Primidone 50 mg TAB (*) PO SCH (19:47)
[2019-08-28] MEDS: Melatonin 3 MG TAB PO SCH (19:47)
[2019-08-28] MEDS: Pramipexole TAB* 0.5 MG PO SCH (19:48)
[2019-08-28] MEDS: Venlafaxine EXT RELEASE CAP* 37.5 MG PO SCH (19:48)
[2019-08-28] MEDS: Fluticasone NASAL SPRAY 50MCG* 16 gm SPRAY BTL BOTH NARES SCH (19:51)
[2019-08-28] MEDS: Mometasone 220 MCG MDI INH SCH (21:06)
[2019-08-29] MEDS: Linezolid 600 MG IVPREMIX(*) 600 MG/300 ML BAG IVPB SCH ×2 (03:21→16:46)
[2019-08-29] MEDS: oxyCODONE TAB* 5 MG TAB PO PRN ×2 (03:21→20:26)
[2019-08-29 04:36] LABS: ABS Eosinophils 0.2 10^3/ul (0-0.6); ABS Lymphocytes 1.7 10^3/ul (1.0-4.8); ABS Monocytes 0.4 10^3/ul (0-0.8); Eosinophil % 5.7 %; Hematocrit 23 % (35-47); Hemoglobin 7.9 g/dL (12.0-16.0); Lymphocyte % 38.8 %; Mean Corpuscular HGB Conc 34 g/dL (31-36); Mean Corpuscular Hemoglobin 33 pg (27-31); Mean Corpuscular Volume 97 fL (80-97); Mean Platelet Volume 7.8 fL (7.4-10.4); Platelet Count 195 10^3/uL (150-450); Red Blood Count 2.38 10^6 /uL (3.70-4.87); Red Cell Distribution Width 13 % (10-15); White Blood Count 4.4 10^3/uL (3.5-10.8)
[2019-08-29 04:52] LABS: Anion Gap 3 mmol/L (2-11); BUN/Creatinine Ratio 32.3 (8-20); Blood Urea Nitrogen 61 mg/dL (6-24); CO2 Carbon Dioxide 29 mmol/L (22-32); Calcium 8.1 mg/dL (8.6-10.3); Chloride 102 mmol/L (101-111); EGFR Non-African American 25.7 (>60); Glucose 142 mg/dL (70-100); Potassium 4.5 mmol/L (3.5-5.0); Sodium 134 mmol/L (135-145)
[2019-08-29] MEDS: Levothyroxine TAB* 175 MCG TAB PO SCH (05:49)
[2019-08-29] MEDS: Acetaminophen TAB* 325 MG PO PRN (06:04)
[2019-08-29] MEDS ORDERED: Polyethylene Glycol 3350* 17 GM PACKET PO PRN (08:00)
[2019-08-29] MEDS: Senna TAB 8.6 mg* TAB PO SCH ×2 (08:26→20:25)
[2019-08-29] MEDS: Docusate CAP* 100 MG PO SCH ×2 (08:27→20:26)
[2019-08-29] MEDS: Ezetimibe TAB* 10 MG PO SCH (08:27)
[2019-08-29] MEDS: Cholecalciferol TAB* 1000 UNITS PO SCH (08:27)
[2019-08-29] MEDS: Pantoprazole TAB * 40 MG TAB PO SCH ×2 (08:28→20:26)
[2019-08-29] MEDS: Multivitamins/Minerals TAB PO SCH (08:28)
[2019-08-29] MEDS: Montelukast Sodium TAB* 10 MG PO SCH (08:28)
[2019-08-29] MEDS: Cetirizine* 10 MG TAB PO SCH (08:29)
--- NOTE | 2019-08-29 09:13 | PN ---
Subjective Date of Service: 08/29/19 Interval History: No acute events overnight. Afebrile. Seemed to be more drowsy last night and this AM. Tremor/shaking worse. Arms dropping. No BM. No knee pain currently, but can get pain up to 10/10. Pain near right UE PICC sometimes. No chest pain. Family History: Findings - Both parents had CAD. Social History: Findings - No alcohol or tobacco abuse. Lives with her who is her SDM. Past Medical History: Findings - VLAENTIN, restless legs, HTN, asthma, GERD, hypothyroid, CKD, angina, PAF, CABG, arthroscopy, appy, choly, BL hip surgery, cataract surgery BL, 5 back surgeries, breast reduction Objective Active Medications: Acetaminophen (Tylenol Tab*) 650 mg PO Q6H PRN PRN Reason: FEVER/PAIN Last Admin: 08/29/19 06:04 Dose: 650 mg Albuterol (Ventolin Hfa Inhaler*) 2 puff INH Q6HR PRN PRN Reason: SHORTNESS OF BREATH Amiodarone HCl (Cordarone Tab*) 100 mg PO DAILY [facility] Last Admin: 08/28/19 10:34 Dose: 100 mg Amlodipine Besylate (Norvasc Tab*) 10 mg PO DAILY [facility] Last Admin: 08/28/19 09:04 Dose: 10 mg Cetirizine HCl (Zyrtec*) 10 mg PO DAILY [facility] Last Admin: 08/29/19 08:29 Dose: 10 mg Cholecalciferol (Vitamin D Tab*) 2,000 units PO DAILY [facility] Last Admin: 08/29/19 08:27 Dose: 2,000 units Docusate Sodium (Colace Cap*) 200 mg PO BID [facility] Last Admin: 08/29/19 08:27 Dose: 200 mg Ezetimibe (Zetia Tab*) 10 mg PO DAILY [facility] Last Admin: 08/29/19 08:27 Dose: 10 mg Enoxaparin Sodium (Lovenox(*)) 30 mg SUBCUT DAILY@1200 [facility] Last Admin: 08/28/19 10:36 Dose: 30 mg Fluticasone Propionate (Flonase Nasal [place] 50mcg*) 1 spray BOTH NARES BEDTIME [facility] Last Admin: 08/28/19 19:51 Dose: 1 spray Heparin Sodium (Porcine) (Heparin Flush Picc/Ml/Cvc(*)) 1 ml FLUSH 0600,1800 [facility]; Protocol Last Admin: 08/29/19 05:53 Dose: 2 ml Linezolid (Zyvox 600 Mg Ivpremix(*)) 600 mg in 300 mls @ 300 mls/hr IVPB Q12H [facility] Last Admin: 08/29/19 03:21 Dose: 300 mls/hr Lactated Ringer's (Lactated Ringers 1000 Ml Bag*) 1,000 mls @ 125 mls/hr IV PER RATE [facility] Lactulose (Lactulose*) 30 ml PO ONCE ONE Stop: 08/29/19 09:08 Levothyroxine Sodium (Synthroid Tab*) 175 mcg PO DAILY@0600 [facility] Last Admin: 08/29/19 05:49 Dose: 175 mcg Lidocaine HCl (Lidocaine 2% Jelly*) 1 applic TOPICAL TID PRN PRN Reason: PAIN - MILD Melatonin (Melatonin) 9 mg PO BEDTIME [facility] Last Admin: 08/28/19 19:47 Dose: 9 mg Metoprolol Succinate (Toprol Xl Tab*) 25 mg PO BID [facility] Last Admin: 08/28/19 19:47 Dose: 25 mg Mometasone Furoate (Asmanex 220 Mcg Mdi *) 1 puff INH QPM [facility] Last Admin: 08/28/19 21:06 Dose: 1 puff Montelukast Sodium (Singulair Tab*) 10 mg PO DAILY [facility] Last Admin: 08/29/19 08:28 Dose: 10 mg Multivitamins/Minerals (Theragran/Minerals Tab*) 1 tab PO DAILY [facility] Last Admin: 08/29/19 08:28 Dose: 1 tab Ondansetron HCl (Zofran Inj*) 4 mg IV Q4H PRN PRN Reason: NAUSEA Last Admin: 08/25/19 11:07 Dose: 4 mg Oxycodone HCl (Roxycodone Tab*) 15 mg PO Q4H PRN PRN Reason: PAIN - MODERATE Pantoprazole Sodium (Protonix Tab*) 40 mg PO BID [facility] Last Admin: 08/29/19 08:28 Dose: 40 mg Polyethylene Glycol/Electrolytes (Miralax (17 Gm Dose Joel)) 17 gm PO DAILY PRN PRN Reason: CONSTIPATION Last Admin: 08/29/19 08:29 Dose: 17 gm Pramipexole Dihydrochloride (Mirapex Tab*) 2 mg PO BEDTIME [facility] Last Admin: 08/28/19 19:48 Dose: 2 mg Primidone (Mysoline 250 Mg Tab (*)) 150 mg PO BEDTIME [facility] Last Admin: 08/28/19 19:47 Dose: 150 mg Senna (Senokot 8.6 Mg Tab*) 2 tab PO BID [facility] Last Admin: 08/29/19 08:26 Dose: 2 tab Throat Lozenges (Chloraseptic Juliane*) 1 juliane PO Q6H PRN PRN Reason: SORE THROAT Last Admin: 08/28/19 15:59 Dose: 1 juliane Venlafaxine HCl (Effexor Xr Cap*) 37.5 mg PO BEDTIME [facility] Last Admin: 08/28/19 19:48 Dose: 37.5 mg Vital Signs - 8 hr 08/29/19 08/29/19 08/29/19 03:02 03:21 05:21 Temperature 97.6 F Pulse Rate 70 Respiratory 16 16 18 Rate Blood Pressure 135/47 (mmHg) O2 Sat by Pulse 99 Oximetry Oxygen Devices in Use Now: None Appearance: NAD, more drowsy Eyes: No Scleral Icterus Ears/Nose/Mouth/Throat: NL Teeth, Lips, Gums Neck: NL Appearance and Movements; NL JVP Respiratory: Symmetrical Chest Expansion and Respiratory Effort Abdominal: NL Sounds; No Tenderness; No Distention Extremities: No Edema Skin: - - wound vacc on right medial knee Neurological: - - oriented x3. Asterixis today. Nutrition: Taking PO's Result Diagrams: 08/29/19 04:21 08/29/19 04:21 Additional Lab and Data: Laboratory Results - last 24 hr 08/27/19 08/28/19 08/29/19 06:08 16:25 04:21 WBC 4.4 RBC 2.38 L Hgb 7.9 L Hct 23 L MCV 97 MCH 33 H MCHC 34 RDW 13 Plt Count 195 MPV 7.8 Neut % (Auto) 45.1 Lymph % (Auto) 38.8 [place] % (Auto) 9.9 Eos % (Auto) 5.7 Baso % (Auto) 0.5 Absolute Neuts (auto) 2.0 Absolute Lymphs (auto) 1.7 Absolute Monos (auto) 0.4 Absolute Eos (auto) 0.2 Absolute Basos (auto) 0.0 Absolute Nucleated RBC 0.0 Nucleated RBC % 0.0 Sodium 133 L Potassium 4.8 Chloride 104 Carbon Dioxide 25 Anion Gap 4 BUN 62 H Creatinine 2.08 H Est GFR ( Amer) 27.8 Est GFR (Non-Af Amer) 23.0 BUN/Creatinine Ratio 29.8 H Glucose 134 H Uric Acid 10.5 H Calcium 8.0 L C-Reactive Protein 30.18 H Ur Creatinine Concen 34.95 Ur Urea Nitrogen Conc 299 08/29/19 04:21 WBC RBC Hgb Hct MCV MCH MCHC RDW Plt Count MPV Neut % (Auto) Lymph % (Auto) [place] % (Auto) Eos % (Auto) Baso % (Auto) Absolute Neuts (auto) Absolute Lymphs (auto) Absolute Monos (auto) Absolute Eos (auto) Absolute Basos (auto) Absolute Nucleated RBC Nucleated RBC % Sodium 134 L Potassium 4.5 Chloride 102 Carbon Dioxide 29 Anion Gap 3 BUN 61 H Creatinine 1.89 H Est GFR ( Amer) 31.0 Est GFR (Non-Af Amer) 25.7 BUN/Creatinine Ratio 32.3 H Glucose 142 H Uric Acid Calcium 8.1 L C-Reactive Protein Ur Creatinine Concen Ur Urea Nitrogen Conc Microbiology and Other Data: Microbiology 08/25/19 16:30 Wound Anaerobic Culture - Final 08/25/19 16:30 Knee Right Skin and Soft Tissue MRSA/MSSA (PCR - Final Mrsa Negative S.aureus Negative 08/25/19 16:30 Knee Right Gram Stain - Final 08/25/19 16:30 Knee Right Wound Culture - Final Vre Enterococcus Faecium 08/24/19 15:51 Blood Venous Aerobic Blood Culture - Preliminary No Growth Day 4 08/24/19 15:51 Blood Venous Anaerobic Blood Culture - Preliminary No Growth Day 4 08/24/19 15:52 Blood Venous Aerobic Blood Culture - Preliminary No Growth Day 4 08/24/19 15:52 Blood Venous Anaerobic Blood Culture - Preliminary No Growth Day 4 08/24/19 16:30 Knee Right Skin and Soft Tissue MRSA/MSSA (PCR - Final Mrsa Negative S.aureus Negative 08/24/19 16:30 Knee Right Gram Stain - Final 08/24/19 16:30 Knee Right Wound Culture - Final Enterococcus Faecium Normal Dede Assess/Plan/Problems-Billing Assessment: 78 year old female PMH of CAD s/p CABG, CKD, HTN, VALENTIN([facility]), BMI 43, pAfib (on amio, no a/c 2/2 gib), myeloproliferative disorder, gout, recent right medial knee washout's (culture negatve) with worsening symptoms on outpatient doxycyline. VRE on recent culture, on Linezolid. - Patient Problems (1) Abscess of knee, right Current Visit: No Status: Acute Code(s): L02.415 - CUTANEOUS ABSCESS OF RIGHT LOWER LIMB SNOMED Code(s): 09731709 Comment: - Had been on bactrim initially for suspected infected jauregui's cyst - Initial I&D by Ortho on 08/09/2019 with drainage of clear fluid, no growth on culture. - Returned with drainage from knee while on outpatient doxycyline. - s/p I&D 08/25. Cx with VRE. Continue linezolid. s/p washout and Wound vacc reapplication (08/28) and planned again 08/30. - ID recs appreciated (2) Asterixis Current Visit: Yes Status: Acute Code(s): R27.8 - OTHER LACK OF COORDINATION SNOMED Code(s): 55533079 Comment: Has not been having BMs, More drowsy with asterixis today. Add on ammonia and will give empiric lactulose. No prior hx of ammonia level check. Add on LFTs also. (3) CAD (coronary artery disease) Current Visit: No Status: Chronic Priority: High Code(s): I25.10 - ATHSCL HEART DISEASE OF [place] CORONARY ARTERY W/O ANG PCTRS SNOMED Code(s): 66801037 Comment: - Stable. - Continue metoprolol, amlodipine, Zetia. She's intolerant of statins and cannot afford PCSK9 agents. - Home plavix has been held since admission given her surgical procedures ( which still are planned). CABG was ~Aug 2018. (4) Chronic pain Current Visit: No Status: Acute Code(s): G89.29 - OTHER CHRONIC PAIN SNOMED Code(s): 62597291 Comment: Decrease prn oxycodone from 20mg q4h prn to 15mg q4 for wound pain and chronic pain given some drowsiness (also stopping recently added gabapentin 100 TID). On norco 20mg/625mg q4 at home. (5) Obstructive sleep apnea Current Visit: No Status: Chronic Priority: High Code(s): G47.33 - OBSTRUCTIVE SLEEP APNEA (ADULT) (PEDIATRIC) SNOMED Code(s): 61629331 Comment: - Patient wears supplemental O2 2 L/min overnight, but not CPAP (6) Essential tremor Current Visit: No Status: Acute Code(s): G25.0 - ESSENTIAL TREMOR SNOMED Code(s): 456751439 Comment: Primidone (7) RLS (restless legs syndrome) Current Visit: No Status: Chronic Priority: High Comment: - Continue mirapex (8) Chronic hypoxemic respiratory failure Current Visit: No Status: Chronic Priority: High Comment: - Continue oxygen and medications as above (9) Asthma Current Visit: No Status: Chronic Priority: High Code(s): J45.909 - UNSPECIFIED ASTHMA, UNCOMPLICATED SNOMED Code(s): 498285327 Comment: - Continue mometasone, albuterol, singulair (10) Chronic diastolic (congestive) heart failure Current Visit: No Status: Acute Code(s): I50.32 - CHRONIC DIASTOLIC ( CONGESTIVE) HEART FAILURE SNOMED Code(s): 092246001 Comment: Chronic LE edema that is essentially at baseline. Torsemide 20mg daily is held given GIDEON. (11) CKD (chronic kidney disease), stage III Current Visit: No Status: Chronic Priority: High Code(s): N18.3 - CHRONIC KIDNEY DISEASE, STAGE 3 (MODERATE) SNOMED Code(s): 126657265 Comment: - GIDEON with - [employer] 1.89 on 2.9 from 2.08 on 08/27 up from 1.40 on 08/24. In setting of infection. Hold torsemide 20mg. FeUrea 28.7% consistent with pre- renal. Repeat BMP. (12) Paroxysmal atrial fibrillation Current Visit: No Status: Acute Code(s): I48.0 - PAROXYSMAL ATRIAL FIBRILLATION SNOMED Code(s): 194485901 Comment: - S/p MAZE procedure. - Continue Amiodarone and Metoprolol. - Not on anticoagulation due to h/o GI bleed. (13) Morbid obesity Current Visit: Yes Status: Acute Code(s): E66.01 - MORBID (SEVERE) OBESITY DUE TO EXCESS CALORIES SNOMED Code(s): 773881776 Comment: BMI 43.5. (14) Toe pain, bilateral Current Visit: Yes Status: Acute Code(s): M79.674 - PAIN IN RIGHT TOE(S); M79.675 - PAIN IN LEFT TOE(S) SNOMED Code(s): 696082252 Comment: Hx of gout, Uric acid elevated to 10.5. Sounds like a degree of peripheral neuropathy, try to find out what dosing of gabapentin she has been on in the past (she does not know). I trialed gabapentin 100mg TID (she got two doses yesterday) but was/is more drowsy so will stop. Denies toe pains this AM. Will hold off on steroids in setting of current infection. Status and Disposition: medicine inpatient requiring additional knee washouts. PT ordered. Uses cane at baseline
[2019-08-29] MEDS: Amiodarone TAB* 200 MG PO SCH (09:27)
[2019-08-29] MEDS: Gabapentin CAP(*) 100 MG PO SCH (09:28)
[2019-08-29] MEDS: amLODIPine TAB* 5 MG PO SCH (09:28)
[2019-08-29] MEDS: Metoprolol Succinate XL TAB* 25 MG PO SCH ×2 (09:28→20:26)
[2019-08-29 09:40] LABS: ALT 6 U/L (7-52); AST 12 U/L (13-39); Albumin 2.6 g/dL (3.2-5.2); Alkaline Phosphatase 78 U/L (34-104); Globulin 2.5 g/dL (2-4); Total Protein 5.1 g/dL (6.4-8.9)
--- NOTE | 2019-08-29 11:17 | PN ---
PROGRESS NOTE: DATE OF VISIT: 08/29/19 HISTORY: Roxi has been an inpatient on the medical service for treatment of a large soft tissue defect in the right medial thigh. Talking with her today , it appears that there has been no direct trauma to the leg precipitating this problem, but she was having very aggressive lymphedema pumping with booties that she describes "waders" and following the most recent vigorous treatment, she developed this large collection of fluid at her medial thigh. This was debrided initially and then she had a recurrence of the swelling with an infection and has been treated twice now with debridement and VAC treatment. Speaking with the most recent surgeon, it appears there is still a huge soft tissue defect and closure would be difficult at this point in time. Ms. Martin is relatively comfortable in bed. Today, when I visit her, she is displaying a much improved white blood count to 4.4. Her hematocrit is drifting down to 23 and this may need to be attended to. She is afebrile at 97.6. Plan at this point is a repeat debridement of the right thigh with possible new VAC, but she may need to have outside consultation to consider some type of rotational flap to try to salvage the leg. [id number]/[facility] #: [id number] [facility] HOSPITALIvanna
[2019-08-29] MEDS: Enoxaparin(*) 30 MG/0.3 ML SYR SUBCUT SCH (13:01)
[2019-08-29] MEDS: Mometasone 220 MCG MDI INH SCH (19:48)
[2019-08-29] MEDS: Primidone 50 mg TAB (*) PO SCH (20:24)
[2019-08-29] MEDS: Venlafaxine EXT RELEASE CAP* 37.5 MG PO SCH (20:25)
[2019-08-29] MEDS: Melatonin 3 MG TAB PO SCH (20:25)
[2019-08-29] MEDS: Fluticasone NASAL SPRAY 50MCG* 16 gm SPRAY BTL BOTH NARES SCH (20:27)
[2019-08-29] MEDS: Pramipexole TAB* 0.5 MG PO SCH (20:32)
--- NOTE | 2019-08-30 03:40 | OP ---
DATE OF OPERATION: 08/28/19 - ROOM #414 DATE OF : 38 ATTENDING SURGEON: Evan Rodriguez MD ANESTHESIA: General. PRE-OP DIAGNOSIS: Open wound, right leg status post previous I and D. POST-OP DIAGNOSIS: Open wound, right leg status post previous I and D. OPERATIVE PROCEDURE: 1. Right wound I and D. 2. Exchange wound VAC. ESTIMATED BLOOD LOSS: Negligible. COMPLICATIONS: None. SUMMARY: Ms. Martin is a 78-year-old female who had originally presented mid July with right leg pain and swelling. She had a large cyst on the medial side of the knee, which did not communicate with the joint. She underwent an I and D and, despite it looking infected, Gram stain and cultures came back as negative. She did go home on antibiotics. But despite being on doxycycline, she had a worsening look to the wound once again and had represented to the hospital. She underwent an I and D this past Friday, with placement of a wound VAC and the skin itself did not look good. Therefore, Dr. Vaca debrided areas which were nonviable. He had called me and requested for a washout today to check the wounds and make sure that it was looking better. I spoke with Ms. Martin yesterday and introduced myself and discussed what we are going to do. We talked, she joked a little bit about making the knee look better and had no additional questions last night or this morning. DESCRIPTION OF PROCEDURE: The patient was brought back to the OR and an LMA was placed. Wound VAC was then disengaged and removed. I was also surprised, as the wound VAC did shrink the area quite nicely, so that the exposed area of black sponge was only approximately 5 cm x 4 cm, but once the wound VAC had been turned off, this expanded, so this was much larger. Wound VAC was removed and good granulation tissue was present underneath. There was no purulence nor was there any significant exudate. Wound was prepped using Betadine and sterilely draped. Using a 4x4 wound was brushed to create the punctate bleeding that is seen with the granulation tissue and she had good punctate bleeding and trying to explore within, there was no exposed bone, no exposed vital structures. After gentle debridement, she was pulse lavaged with 3 L normal saline. There were few small flaps of the tissue and these were sharply debrided. Another 3 L were used and wound looked excellent. New wound VAC was then placed and sealed and wound VAC was run in the OR and this suctioned down and the wound VAC was pleased with suction fit. The patient had the LMA removed in the OR and was stable to the recovery room. She is scheduled for another washout in 48 hours. [id number]/[facility] #: [id number] [facility] HOSPITALIvanna
[2019-08-30] MEDS: Linezolid 600 MG IVPREMIX(*) 600 MG/300 ML BAG IVPB SCH (03:54)
[2019-08-30] MEDS: oxyCODONE TAB* 5 MG TAB PO PRN (05:30)
[2019-08-30] MEDS: Levothyroxine TAB* 175 MCG TAB PO SCH (05:31)
[2019-08-30] MEDS ORDERED: Lactated Ringers 1000 ML Bag* 1,000 ML IV SCH (06:00)
[2019-08-30 07:03] LABS: ABS Eosinophils 0.2 10^3/ul (0-0.6); ABS Lymphocytes 1.6 10^3/ul (1.0-4.8); ABS Monocytes 0.4 10^3/ul (0-0.8); ABS Neutrophils 3.1 10^3/ul (1.5-7.7); Eosinophil % 4.5 %; Hematocrit 25 % (35-47); Hemoglobin 8.4 g/dL (12.0-16.0); Lymphocyte % 29.4 %; Mean Corpuscular HGB Conc 34 g/dL (31-36); Mean Corpuscular Hemoglobin 33 pg (27-31); Mean Corpuscular Volume 97 fL (80-97); Mean Platelet Volume 7.7 fL (7.4-10.4); Nucleated Red Blood Cells % 0.1; Platelet Count 197 10^3/uL (150-450); Red Blood Count 2.56 10^6 /uL (3.70-4.87); Red Cell Distribution Width 13 % (10-15); White Blood Count 5.4 10^3/uL (3.5-10.8)
[2019-08-30 07:34] LABS: BUN/Creatinine Ratio 30.8 (8-20); C Reactive Protein 13.43 mg/L (<8.01); Calcium 8.2 mg/dL (8.6-10.3); EGFR African American 28.9 (>60); EGFR Non-African American 23.9 (>60)
[2019-08-30] MEDS: Amiodarone TAB* 200 MG PO SCH (08:55)
[2019-08-30] MEDS: Metoprolol Succinate XL TAB* 25 MG PO SCH ×2 (08:56→21:48)
[2019-08-30] MEDS: Senna TAB 8.6 mg* TAB PO SCH ×2 (08:57→21:49)
[2019-08-30] MEDS: Cholecalciferol TAB* 1000 UNITS PO SCH (08:57)
[2019-08-30] MEDS: Pantoprazole TAB * 40 MG TAB PO SCH ×2 (08:57→21:48)
[2019-08-30] MEDS: Montelukast Sodium TAB* 10 MG PO SCH (08:57)
[2019-08-30] MEDS: Multivitamins/Minerals TAB PO SCH (08:57)
[2019-08-30] MEDS: Ezetimibe TAB* 10 MG PO SCH (08:57)
[2019-08-30] MEDS: Cetirizine* 10 MG TAB PO SCH (08:58)
[2019-08-30] MEDS: amLODIPine TAB* 5 MG PO SCH (08:58)
[2019-08-30] MEDS: Docusate CAP* 100 MG PO SCH ×2 (08:58→21:48)
[2019-08-30] MEDS ORDERED: DAPTOmycin SDV(*) 500 MG in NS 0.9% 50 ML* 50 ML IVPB SCH (10:00)
--- NOTE | 2019-08-30 11:07 | PN ---
Progress Note - Progress Note Date of Service: 08/30/19 SOAP: Subjective: CC: right leg infection HPI: 78 year old woman with right medial leg cyst excision with recurrence of drainage and erythema while on doxycycline, had rigors without fever at home. Had I&D, vac placement, vac exchange. Leg pain and swelling are improved. Has no fever, rash, or diarrhea. Her notices she has twitches when trying to feed herself, otherwise seems her usual self. Objective: [] Vital Signs Temp 36.4 C 08/30/19 07:15 Pulse 56 08/30/19 07:15 Resp 18 08/30/19 07:30 BP 132/41 08/30/19 07:15 Pulse Ox 92 08/30/19 07:15 Intake & Output 08/29/19 08/30/19 08/30/19 18:59 06:59 18:59 Intake Total 1230 0 0 Balance 1230 0 0 Intake: IV Fluids 300 ABX - LINEZOLID 300 Oral 930 0 0 Other: Estimated Void Small Medium # Bowel Movements 0 Estimated Stool Amount Medium # Voids 1 1 Gen:awake, no distress HEENT: no thrush Heart:Regular no murmur Skin: no rash MSK: no spine tenderness; Right medial leg vac without surrounding erythema. No myclonus Laboratory Results - last 24 hr 08/30/19 08/30/19 06:53 06:53 WBC 5.4 RBC 2.56 L Hgb 8.4 L Hct 25 L MCV 97 MCH 33 H MCHC 34 RDW 13 Plt Count 197 MPV 7.7 Neut % (Auto) 57.2 Lymph % (Auto) 29.4 [place] % (Auto) 8.1 Eos % (Auto) 4.5 Baso % (Auto) 0.8 Absolute Neuts (auto) 3.1 Absolute Lymphs (auto) 1.6 Absolute Monos (auto) 0.4 Absolute Eos (auto) 0.2 Absolute Basos (auto) 0.0 Absolute Nucleated RBC 0.0 Nucleated RBC % 0.1 Sodium 133 L Potassium 5.0 Chloride 102 Carbon Dioxide 26 Anion Gap 5 BUN 62 H Creatinine 2.01 H Est GFR ( Amer) 28.9 Est GFR (Non-Af Amer) 23.9 BUN/Creatinine Ratio 30.8 H Glucose 113 H Calcium 8.2 L C-Reactive Protein 13.43 H Microbiology 08/24/19 15:52 Aerobic Blood Culture - Final Blood Venous No Growth Day 5 Anaerobic Blood Culture - Final No Growth Day 5 08/24/19 15:51 Aerobic Blood Culture - Final Blood Venous No Growth Day 5 Anaerobic Blood Culture - Final No Growth Day 5 08/25/19 16:30 Anaerobic Culture - Final Wound 08/25/19 16:30 Skin and Soft Tissue MRSA/MSSA (PCR - Final Knee Right Mrsa Negative S.aureus Negative Gram Stain - Final Wound Culture - Final Vre Enterococcus Faecium Assessment: 1. Right leg abscess, due to VRE 2. CKD 3. morbid obesity Plan: 1. change linezolid to daptomycin 500 mg IV Q48hrs dosed for GFR <30 35 minutes floor time >50% face to face in counseling with patient and her regarding home IV options.
[2019-08-30] MEDS: DAPTOmycin SDV(*) 500 MG in NS 0.9% 50 ML* 50 ML IVPB SCH (11:10)
[2019-08-30] MEDS: Ondansetron INJ* 2 MG/ML VIAL IV PRN (11:12)
[2019-08-30] MEDS ORDERED: Midazolam* 1 MG/ML 2 ML VIAL (2 MG) ONE (13:44)
[2019-08-30] MEDS ORDERED: fentaNYL* 50 MCG/ML 2 ML VIAL (100 MCG VIAL) ONE (13:52)
[2019-08-30] MEDS ORDERED: Lidocaine 2% PF * 5 ML VIAL ONE (13:53)
[2019-08-30] MEDS ORDERED: Bupivacaine 0.25% SDV PF* 10 ML VIAL INJ ONE (13:58)
[2019-08-30] MEDS ORDERED: Ondansetron INJ* 2 MG/ML VIAL ONE (14:03)
[2019-08-30] MEDS ORDERED: Dexamethasone IV* 4 MG/ML 1 ML (4 MG) ONE (14:03)
[2019-08-30] MEDS ORDERED: Metoclopramide IV* 5 MG/ML 2 ML VIAL IV PRN (14:10)
[2019-08-30] MEDS ORDERED: Ketorolac INJ* 30 MG/ML 1 ML VIAL IV PRN (14:10)
[2019-08-30] MEDS ORDERED: Naloxone* 0.4 MG/ML 1 ML VIAL IV PRN (14:10)
[2019-08-30] MEDS ORDERED: oxyCODONE TAB* 5 MG TAB PO PRN (14:10)
[2019-08-30] MEDS: Enoxaparin(*) 30 MG/0.3 ML SYR SUBCUT SCH (14:26)
[2019-08-30] MEDS ORDERED: Ketorolac INJ* 30 MG/ML 1 ML VIAL ONE (14:30)
--- NOTE | 2019-08-30 17:55 | PN ---
Subjective Date of Service: 08/30/19 Interval History: Pt is feeling ok currently. She has no pain in her knee currently. She states she wants to go back to hydrocodone from oxycodone as she thinks the oxycodone is making her shaky. Objective Active Medications: Hydrocodone Bitart/Acetaminophen ([place] 5-325 Tab*) 2 tab PO Q4H PRN PRN Reason: Pain - severe pain Albuterol (Ventolin Hfa Inhaler*) 2 puff INH Q6HR PRN PRN Reason: SHORTNESS OF BREATH Amiodarone HCl (Cordarone Tab*) 100 mg PO DAILY [facility] Last Admin: 08/30/19 08:55 Dose: 100 mg Amlodipine Besylate (Norvasc Tab*) 10 mg PO DAILY [facility] Last Admin: 08/30/19 08:58 Dose: 10 mg Cetirizine HCl (Zyrtec*) 10 mg PO DAILY [facility] Last Admin: 08/30/19 08:58 Dose: 10 mg Cholecalciferol (Vitamin D Tab*) 2,000 units PO DAILY [facility] Last Admin: 08/30/19 08:57 Dose: 2,000 units Docusate Sodium (Colace Cap*) 200 mg PO BID [facility] Last Admin: 08/30/19 08:58 Dose: 200 mg Ezetimibe (Zetia Tab*) 10 mg PO DAILY [facility] Last Admin: 08/30/19 08:57 Dose: 10 mg Enoxaparin Sodium (Lovenox(*)) 30 mg SUBCUT DAILY@1200 [facility] Last Admin: 08/30/19 14:26 Dose: Not Given Fluticasone Propionate (Flonase Nasal [place] 50mcg*) 1 spray BOTH NARES BEDTIME [facility] Last Admin: 08/29/19 20:27 Dose: 1 spray Heparin Sodium (Porcine) (Heparin Flush Picc/Ml/Cvc(*)) 1 ml FLUSH 0600,1800 [facility]; Protocol Last Admin: 08/30/19 05:18 Dose: Not Given Lactated Ringer's (Lactated Ringers 1000 Ml Bag*) 1,000 mls @ 125 mls/hr IV PER RATE [facility] Last Admin: 08/30/19 05:26 Dose: 125 mls/hr Daptomycin 500 mg/ Sodium (Chloride) 60 mls @ 100 mls/hr IVPB Q48H [facility] Last Admin: 08/30/19 11:10 Dose: 100 mls/hr Levothyroxine Sodium (Synthroid Tab*) 175 mcg PO DAILY@0600 [facility] Last Admin: 08/30/19 05:31 Dose: 175 mcg Lidocaine HCl (Lidocaine 2% Jelly*) 1 applic TOPICAL TID PRN PRN Reason: PAIN - MILD Melatonin (Melatonin) 9 mg PO BEDTIME [facility] Last Admin: 08/29/19 20:25 Dose: 9 mg Metoprolol Succinate (Toprol Xl Tab*) 25 mg PO BID [facility] Last Admin: 08/30/19 08:56 Dose: 25 mg Mometasone Furoate (Asmanex 220 Mcg Mdi *) 1 puff INH QPM [facility] Last Admin: 08/29/19 19:48 Dose: 1 puff Montelukast Sodium (Singulair Tab*) 10 mg PO DAILY [facility] Last Admin: 08/30/19 08:57 Dose: 10 mg Multivitamins/Minerals (Theragran/Minerals Tab*) 1 tab PO DAILY [facility] Last Admin: 08/30/19 08:57 Dose: 1 tab Ondansetron HCl (Zofran Inj*) 4 mg IV Q4H PRN PRN Reason: NAUSEA Last Admin: 08/30/19 11:12 Dose: 4 mg Pantoprazole Sodium (Protonix Tab*) 40 mg PO BID [facility] Last Admin: 08/30/19 08:57 Dose: 40 mg Polyethylene Glycol/Electrolytes (Miralax (17 Gm Dose Joel)) 17 gm PO DAILY PRN PRN Reason: CONSTIPATION Last Admin: 08/29/19 08:29 Dose: 17 gm Pramipexole Dihydrochloride (Mirapex Tab*) 2 mg PO BEDTIME [facility] Last Admin: 08/29/19 20:32 Dose: 2 mg Primidone (Mysoline 250 Mg Tab (*)) 150 mg PO BEDTIME [facility] Last Admin: 08/29/19 20:24 Dose: 150 mg Senna (Senokot 8.6 Mg Tab*) 2 tab PO BID [facility] Last Admin: 08/30/19 08:57 Dose: 2 tab Throat Lozenges (Chloraseptic Juliane*) 1 juliane PO Q6H PRN PRN Reason: SORE THROAT Last Admin: 08/28/19 15:59 Dose: 1 juliane Venlafaxine HCl (Effexor Xr Cap*) 37.5 mg PO BEDTIME [facility] Last Admin: 08/29/19 20:25 Dose: 37.5 mg Vital Signs - 8 hr 08/30/19 08/30/19 08/30/19 11:08 14:25 14:31 Temperature 97.4 F 96.4 F Pulse Rate 58 66 65 Respiratory 17 16 Rate Blood Pressure 148/54 173/70 168/76 (mmHg) O2 Sat by Pulse 94 100 100 Oximetry 08/30/19 08/30/19 08/30/19 14:37 14:41 14:46 Temperature Pulse Rate 63 63 62 Respiratory 13 14 15 Rate Blood Pressure 160/66 152/69 157/70 (mmHg) O2 Sat by Pulse 100 100 99 Oximetry 08/30/19 08/30/19 08/30/19 14:51 14:56 15:00 Temperature Pulse Rate 61 60 59 Respiratory 16 17 22 Rate Blood Pressure 143/61 134/60 149/65 (mmHg) O2 Sat by Pulse 92 97 99 Oximetry 08/30/19 08/30/19 08/30/19 15:16 15:20 16:03 Temperature 97.5 F 97.6 F Pulse Rate 55 58 Respiratory 15 19 Rate Blood Pressure 130/57 145/56 (mmHg) O2 Sat by Pulse 99 93 Oximetry 08/30/19 16:14 Temperature 97.5 F Pulse Rate 56 Respiratory 20 Rate Blood Pressure 146/56 (mmHg) O2 Sat by Pulse 94 Oximetry Oxygen Devices in Use Now: None Appearance: Elderly female sitting up in bed, NAD Eyes: No Scleral Icterus Ears/Nose/Mouth/Throat: Mucous Membranes Moist Respiratory: Symmetrical Chest Expansion and Respiratory Effort, Clear to Auscultation Cardiovascular: NL Sounds; No Murmurs; No JVD, RRR, - - 1+ LE edema Abdominal: NL Sounds; No Tenderness; No Distention Extremities: No Clubbing, Cyanosis Skin: No Nodules or Sclerosis Neurological: - - mildly confused Result Diagrams: 08/30/19 06:53 08/30/19 06:53 Additional Lab and Data: Laboratory Results - last 24 hr 08/27/19 08/28/19 08/29/19 06:08 16:25 04:21 WBC 4.4 RBC 2.38 L Hgb 7.9 L Hct 23 L MCV 97 MCH 33 H MCHC 34 RDW 13 Plt Count 195 MPV 7.8 Neut % (Auto) 45.1 Lymph % (Auto) 38.8 [place] % (Auto) 9.9 Eos % (Auto) 5.7 Baso % (Auto) 0.5 Absolute Neuts (auto) 2.0 Absolute Lymphs (auto) 1.7 Absolute Monos (auto) 0.4 Absolute Eos (auto) 0.2 Absolute Basos (auto) 0.0 Absolute Nucleated RBC 0.0 Nucleated RBC % 0.0 Sodium 133 L Potassium 4.8 Chloride 104 Carbon Dioxide 25 Anion Gap 4 BUN 62 H Creatinine 2.08 H Est GFR ( Amer) 27.8 Est GFR (Non-Af Amer) 23.0 BUN/Creatinine Ratio 29.8 H Glucose 134 H Uric Acid 10.5 H Calcium 8.0 L C-Reactive Protein 30.18 H Ur Creatinine Concen 34.95 Ur Urea Nitrogen Conc 299 08/29/19 04:21 WBC RBC Hgb Hct MCV MCH MCHC RDW Plt Count MPV Neut % (Auto) Lymph % (Auto) [place] % (Auto) Eos % (Auto) Baso % (Auto) Absolute Neuts (auto) Absolute Lymphs (auto) Absolute Monos (auto) Absolute Eos (auto) Absolute Basos (auto) Absolute Nucleated RBC Nucleated RBC % Sodium 134 L Potassium 4.5 Chloride 102 Carbon Dioxide 29 Anion Gap 3 BUN 61 H Creatinine 1.89 H Est GFR ( Amer) 31.0 Est GFR (Non-Af Amer) 25.7 BUN/Creatinine Ratio 32.3 H Glucose 142 H Uric Acid Calcium 8.1 L C-Reactive Protein Ur Creatinine Concen Ur Urea Nitrogen Conc Microbiology and Other Data: Microbiology 08/25/19 16:30 Wound Anaerobic Culture - Final 08/25/19 16:30 Knee Right Skin and Soft Tissue MRSA/MSSA (PCR - Final Mrsa Negative S.aureus Negative 08/25/19 16:30 Knee Right Gram Stain - Final 08/25/19 16:30 Knee Right Wound Culture - Final Vre Enterococcus Faecium 08/24/19 15:51 Blood Venous Aerobic Blood Culture - Preliminary No Growth Day 4 08/24/19 15:51 Blood Venous Anaerobic Blood Culture - Preliminary No Growth Day 4 08/24/19 15:52 Blood Venous Aerobic Blood Culture - Preliminary No Growth Day 4 08/24/19 15:52 Blood Venous Anaerobic Blood Culture - Preliminary No Growth Day 4 08/24/19 16:30 Knee Right Skin and Soft Tissue MRSA/MSSA (PCR - Final Mrsa Negative S.aureus Negative 08/24/19 16:30 Knee Right Gram Stain - Final 08/24/19 16:30 Knee Right Wound Culture - Final Enterococcus Faecium Normal Dede Assess/Plan/Problems-Billing Ms Martin is a 78 year old female PMH of CAD s/p CABG, CKD, HTN, VALENTIN([place] PM), BMI 43, pAfib (on amio, no a/c 2/2 gib), myeloproliferative disorder, gout, recent right medial knee washout's (culture negatve) with worsening symptoms on outpatient doxycyline and subsequent VRE on recent culture. - Patient Problems (1) Abscess of knee, right Current Visit: Yes Status: Acute Code(s): L02.415 - CUTANEOUS ABSCESS OF RIGHT LOWER LIMB SNOMED Code(s): 50708102 Comment: Pt had been on bactrim initially for suspected infected jauregui's cyst. Initial I&D by Ortho on 08/09/2019 with drainage of clear fluid, no growth on culture. Pt returned with drainage from knee while on outpatient doxycyline. Now s/p I&D 08/25. Cx with VRE. Continue daptomycin- changed today due to concerns for serotonin syndrome. s/p washout and Wound vac application () and again 08/30. - ID recs appreciated (2) Asterixis Current Visit: Yes Status: Acute Code(s): R27.8 - OTHER LACK OF COORDINATION SNOMED Code(s): 83909117 Comment: Per ID, ? serotonin syndrome secondary to linezolid. She has been changed to daptomycin. Monitor for improvement in asterixis. (3) Chronic diastolic (congestive) heart failure Current Visit: Yes Status: Acute Code(s): I50.32 - CHRONIC DIASTOLIC ( CONGESTIVE) HEART FAILURE SNOMED Code(s): 125700278 Comment: Pt with chronic LE edema. Torsemide has been on hold. Will resume torsemide and monitor edema. (4) Chronic pain Current Visit: Yes Status: Acute Code(s): G89.29 - OTHER CHRONIC PAIN SNOMED Code(s): 88578697 Comment: Change back to norco per pt request. Monitor for pain control. (5) Atrial fibrillation Current Visit: Yes Status: Chronic Code(s): I48.91 - UNSPECIFIED ATRIAL FIBRILLATION SNOMED Code(s): 20503554 Comment: HR sounded regular. Continue amiodarone and metoprolol. (6) CAD (coronary artery disease) Current Visit: No Status: Chronic Priority: High Code(s): I25.10 - ATHSCL HEART DISEASE OF [place] CORONARY ARTERY W/O ANG PCTRS SNOMED Code(s): 73261978 Comment: - Stable. - Continue metoprolol, amlodipine, Zetia. She's intolerant of statins and cannot afford PCSK9 agents. - Home plavix has been held since admission given her surgical procedures ( which still are planned). CABG was ~Aug 2018. (7) CKD (chronic kidney disease), stage III Current Visit: Yes Status: Chronic Code(s): N18.3 - CHRONIC KIDNEY DISEASE, STAGE 3 (MODERATE) SNOMED Code(s): 595561274 Comment: Creatinine somewhat worse than baseline. Now close to baseline. Resuming torsemide. Monitor creatinine. (8) HLD (hyperlipidemia) Current Visit: Yes Status: Chronic Code(s): E78.5 - HYPERLIPIDEMIA, UNSPECIFIED SNOMED Code(s): 15212210 Comment: Continue zetia. (9) Hypertension Current Visit: Yes Status: Chronic Priority: High Code(s): I10 - ESSENTIAL (PRIMARY) HYPERTENSION SNOMED Code(s): 06919246 Comment: BP is under acceptable control. Continue metoprolol and amlodipine. (10) Hypothyroidism Current Visit: Yes Status: Chronic Code(s): E03.9 - HYPOTHYROIDISM, UNSPECIFIED SNOMED Code(s): 38351452 Comment: Continue levothyroxine at current dose. Last TSH in 01/2019 was in good range. (11) RLS (restless legs syndrome) Current Visit: Yes Status: Chronic Comment: Continue mirapex. (12) Morbid obesity Current Visit: Yes Status: Acute Code(s): E66.01 - MORBID (SEVERE) OBESITY DUE TO EXCESS CALORIES SNOMED Code(s): 994110825 Comment: BMI 43.5. (13) DVT prophylaxis Current Visit: Yes Status: Acute Code(s): VEH9307 - SNOMED Code(s): 658124951 Comment: lovenox (14) Full code status Current Visit: Yes Status: Acute Code(s): Z78.9 - OTHER SPECIFIED HEALTH STATUS SNOMED Code(s): 113738941 Status and Disposition: .
[2019-08-30] MEDS: Mometasone 220 MCG MDI INH SCH (19:45)
[2019-08-30] MEDS: Melatonin 3 MG TAB PO SCH (21:47)
[2019-08-30] MEDS: Pramipexole TAB* 0.5 MG PO SCH (21:48)
[2019-08-30] MEDS: Primidone 50 mg TAB (*) PO SCH (21:49)
[2019-08-30] MEDS: Venlafaxine EXT RELEASE CAP* 37.5 MG PO SCH (21:49)
[2019-08-30] MEDS: HYDROcodone/ACETAMIN 5-325 MG* 1 TAB PO PRN (22:14)
[2019-08-30] MEDS: Fluticasone NASAL SPRAY 50MCG* 16 gm SPRAY BTL BOTH NARES SCH (23:19)
--- NOTE | 2019-08-31 04:02 | OP ---
DATE OF OPERATION: 08/30/19 - ROOM #414 DATE OF : 38 ATTENDING SURGEON: Bryson Umana MD ASSISTED BY: Mario Alegria PA-C PRE-OP DIAGNOSIS: Large soft tissue defect, right medial thigh. POST-OP DIAGNOSIS: Large soft tissue defect, right medial thigh. OPERATIVE PROCEDURE: VAC dressing changed, right medial thigh, with irrigation. DESCRIPTION OF PROCEDURE: The patient was taken to the operating room where supine positioning was used. We removed the VAC dressing from her right medial thigh. The bed itself was granulating nicely and clear and there was no purulent drainage at all. We irrigated this with 3 L pulsatile lavage and then placed a new VAC dressing with sealing with iodoform circumferentially. Compression dressing of Kerlix and Jairo wrap was applied. [id number]/[facility] #: [id number] MTDD
[2019-08-31] MEDS: Levothyroxine TAB* 175 MCG TAB PO SCH (06:04)
[2019-08-31] MEDS: HYDROcodone/ACETAMIN 5-325 MG* 1 TAB PO PRN ×3 (08:02→17:50)
[2019-08-31] MEDS: Amiodarone TAB* 200 MG PO SCH (08:24)
[2019-08-31] MEDS: Metoprolol Succinate XL TAB* 25 MG PO SCH ×2 (08:25→20:57)
[2019-08-31] MEDS: Senna TAB 8.6 mg* TAB PO SCH ×2 (08:26→20:56)
[2019-08-31] MEDS: Torsemide TAB* 20 MG PO SCH (08:26)
[2019-08-31] MEDS: Pantoprazole TAB * 40 MG TAB PO SCH ×2 (08:26→20:56)
[2019-08-31] MEDS: Cholecalciferol TAB* 1000 UNITS PO SCH (08:27)
[2019-08-31] MEDS: amLODIPine TAB* 5 MG PO SCH (08:27)
[2019-08-31] MEDS: Montelukast Sodium TAB* 10 MG PO SCH (08:27)
[2019-08-31] MEDS: Ezetimibe TAB* 10 MG PO SCH (08:27)
[2019-08-31] MEDS: Docusate CAP* 100 MG PO SCH ×2 (08:28→20:55)
[2019-08-31] MEDS: Multivitamins/Minerals TAB PO SCH (08:29)
[2019-08-31] MEDS: Cetirizine* 10 MG TAB PO SCH (08:29)
--- NOTE | 2019-08-31 09:41 | PN ---
Progress Note - Progress Note Date of Service: 08/31/19 SOAP: Subjective: OOB to chair, pain well controlled; wound vac in place Objective: Vital Signs Temp Pulse Resp BP Pulse Ox 97.4 F 56 18 143/52 92 08/31/19 07:28 08/31/19 07:28 08/31/19 08:11 08/31/19 07:28 08/31/19 08:11 Laboratory Last Values WBC 5.4 10^3/uL (3.5-10.8) 08/30/19 06:53 RBC 2.56 10^6 /uL (3.70-4.87) L 08/30/19 06:53 Hgb 8.4 g/dL (12.0-16.0) L 08/30/19 06:53 Hct 25 % (35-47) L 08/30/19 06:53 MCV 97 fL (80-97) 08/30/19 06:53 MCH 33 pg (27-31) H 08/30/19 06:53 MCHC 34 g/dL (31-36) 08/30/19 06:53 RDW 13 % (10-15) 08/30/19 06:53 Plt Count 197 10^3/uL (150-450) 08/30/19 06:53 MPV 7.7 fL (7.4-10.4) 08/30/19 06:53 Neut % (Auto) 57.2 % 08/30/19 06:53 Lymph % (Auto) 29.4 % 08/30/19 06:53 [place] % (Auto) 8.1 % 08/30/19 06:53 Eos % (Auto) 4.5 % 08/30/19 06:53 Baso % (Auto) 0.8 % 08/30/19 06:53 Absolute Neuts (auto) 3.1 10^3/ul (1.5-7.7) 08/30/19 06:53 Absolute Lymphs (auto) 1.6 10^3/ul (1.0-4.8) 08/30/19 06:53 Absolute Monos (auto) 0.4 10^3/ul (0-0.8) 08/30/19 06:53 Absolute Eos (auto) 0.2 10^3/ul (0-0.6) 08/30/19 06:53 Absolute Basos (auto) 0.0 10^3/ul (0-0.2) 08/30/19 06:53 Absolute Nucleated RBC 0.0 10^3/ul 08/30/19 06:53 Nucleated RBC % 0.1 08/30/19 06:53 Sodium 133 mmol/L (135-145) L 08/30/19 06:53 Potassium 5.0 mmol/L (3.5-5.0) 08/30/19 06:53 Chloride 102 mmol/L (101-111) 08/30/19 06:53 Carbon Dioxide 26 mmol/L (22-32) 08/30/19 06:53 Anion Gap 5 mmol/L (2-11) 08/30/19 06:53 BUN 62 mg/dL (6-24) H 08/30/19 06:53 Creatinine 2.01 mg/dL (0.51-0.95) H 08/30/19 06:53 Est GFR ( Amer) 28.9 (>60) 08/30/19 06:53 Est GFR (Non-Af Amer) 23.9 (>60) 08/30/19 06:53 BUN/Creatinine Ratio 30.8 (8-20) H 08/30/19 06:53 Glucose 113 mg/dL (70-100) H 08/30/19 06:53 Uric Acid 10.5 mg/dL (2.3-6.6) H 08/27/19 06:08 Calcium 8.2 mg/dL (8.6-10.3) L 08/30/19 06:53 Total Bilirubin 0.20 mg/dL (0.2-1.0) 08/29/19 04:21 Direct Bilirubin 0.00 mg/dL (0.03-0.18) L 08/29/19 04:21 Indirect Bilirubin Not Reportable 08/29/19 04:21 AST 12 U/L (13-39) L 08/29/19 04:21 ALT 6 U/L (7-52) L 08/29/19 04:21 Alkaline Phosphatase 78 U/L (34-104) 08/29/19 04:21 Ammonia 45 mcmol/L (16-53) 08/29/19 09:33 C-Reactive Protein 13.43 mg/L (<8.01) H 08/30/19 06:53 Total Protein 5.1 g/dL (6.4-8.9) L 08/29/19 04:21 Albumin 2.6 g/dL (3.2-5.2) L 08/29/19 04:21 Globulin 2.5 g/dL (2-4) 08/29/19 04:21 Albumin/Globulin Ratio 1.0 (1-3) 08/29/19 04:21 Ur Creatinine Concen 34.95 mg/dL 08/28/19 16:25 Ur Urea Nitrogen Conc 299 mg/dL 08/28/19 16:25 incision: wound vac in place with good suction; dressing c/d PE: able to DF/PF, 2+ DP pulse, intact sensation Assessment: s/p right medial knee I &D with wound vac change Plan: 1) continue PT/OT 2) Continue IV Abx 3) likely back to OR with [facility] for repeat I&D with wound vac change
--- NOTE | 2019-08-31 11:45 | PN ---
Progress Note - Progress Note Date of Service: 08/31/19 SOAP: Subjective: CC: Right leg infection HPI: Ms. Martin is a 78 yo female with PMH significant for CKD3, VALENTIN, lymphedema, asthma, RLS, HTN, anemia, myeloproliferative disorder, heart failure , A fib, essential tremor, fibromyalgia, GERD, hypothyroidism, headache, and CAD ; s/p excision of right medial leg cyst with recurrence of drainage and erythema while on doxycycline. Denies fever, chills, nausea, vomiting, or diarrhea. Right medial leg pain improving, she feels like the JERRY wrap is to tight. Reports that she feels the UE tremors are secondary to the oxycodone that she has been getting and they are improving. Objective: Vital Signs 08/31/19 08/31/19 10:11 11:04 Temperature 97.3 F Pulse Rate 49 Respiratory 16 16 Rate Blood Pressure 112/46 (mmHg) O2 Sat by Pulse 94 Oximetry Physical Exam: General: NAD, sitting up in a chair Neurological: Alert and Oriented HEENT: Moist MM Cardiovascular: Heart rate regular Respiratory: Lung sound clear Abdomen: Bowel sounds present; ABD soft, non tender and non distended MSK: Able to move bilateral LEs Skin: No rash. Wound vac to right medial leg in place, no surrounding erythema Microbiology 08/24/19 15:52 Aerobic Blood Culture - Final Blood Venous No Growth Day 5 Anaerobic Blood Culture - Final No Growth Day 5 08/24/19 15:51 Aerobic Blood Culture - Final Blood Venous No Growth Day 5 Anaerobic Blood Culture - Final No Growth Day 5 08/25/19 16:30 Anaerobic Culture - Final Wound 08/25/19 16:30 Skin and Soft Tissue MRSA/MSSA (PCR - Final Knee Right Mrsa Negative S.aureus Negative Gram Stain - Final Wound Culture - Final Vre Enterococcus Faecium 08/24/19 16:30 Skin and Soft Tissue MRSA/MSSA (PCR - Final Knee Right Mrsa Negative S.aureus Negative Gram Stain - Final Wound Culture - Final Enterococcus Faecium Normal Dede Assessment: 1. Right leg abscess. Wound cultures with VRE. S/P I+D. Continues to have a wound vac in place. Plan for return to the OR . Blood cultures with no growth to date. Afebrile and no leukocytosis. CRP trending down. 2. CKD, stage 3. 3. Morbid obesity. BMI 43.5. Plan: Continue Daptomycin. She will need a prolonged course of IV ABX, PICC line has been placed. Weekly labs while on IV ABX: CBC, CMP, and CRP.
[2019-08-31] MEDS: Enoxaparin(*) 30 MG/0.3 ML SYR SUBCUT SCH (13:08)
--- NOTE | 2019-08-31 19:02 | PN ---
Subjective Date of Service: 08/31/19 Interval History: Patient has no complaints. No c/o chest pain, difficulty breathing, abd pain, fever/chills. Tells me she thinks her asterixis is due to the switch from hydrocodone to oxycodone. We discussed that likely it was serotonin syndrome. Family History: Findings - Both parents had CAD. Social History: Findings - No alcohol or tobacco abuse. Lives with her who is her SDM. Past Medical History: Findings - VALENTIN, restless legs, HTN, asthma, GERD, hypothyroid, CKD, angina, PAF, CABG, arthroscopy, appy, choly, BL hip surgery, cataract surgery BL, 5 back surgeries, breast reduction Objective Active Medications: Hydrocodone Bitart/Acetaminophen ([place] 5-325 Tab*) 2 tab PO Q4H PRN PRN Reason: Pain - severe pain Last Admin: 08/31/19 17:50 Dose: 2 tab Albuterol (Ventolin Hfa Inhaler*) 2 puff INH Q6HR PRN PRN Reason: SHORTNESS OF BREATH Amiodarone HCl (Cordarone Tab*) 100 mg PO DAILY [facility] Last Admin: 08/31/19 08:24 Dose: 100 mg Amlodipine Besylate (Norvasc Tab*) 10 mg PO DAILY [facility] Last Admin: 08/31/19 08:27 Dose: 10 mg Cetirizine HCl (Zyrtec*) 10 mg PO DAILY [facility] Last Admin: 08/31/19 08:29 Dose: 10 mg Cholecalciferol (Vitamin D Tab*) 2,000 units PO DAILY [facility] Last Admin: 08/31/19 08:27 Dose: 2,000 units Docusate Sodium (Colace Cap*) 200 mg PO BID [facility] Last Admin: 08/31/19 08:28 Dose: 200 mg Ezetimibe (Zetia Tab*) 10 mg PO DAILY [facility] Last Admin: 08/31/19 08:27 Dose: 10 mg Enoxaparin Sodium (Lovenox(*)) 30 mg SUBCUT DAILY@1200 [facility] Last Admin: 08/31/19 13:08 Dose: 30 mg Fluticasone Propionate (Flonase Nasal [place] 50mcg*) 1 spray BOTH NARES BEDTIME [facility] Last Admin: 08/30/19 23:19 Dose: 1 spray Heparin Sodium (Porcine) (Heparin Flush Picc/Ml/Cvc(*)) 1 ml FLUSH 0600,1800 [facility]; Protocol Last Admin: 08/31/19 17:44 Dose: 1 ml Daptomycin 500 mg/ Sodium (Chloride) 60 mls @ 100 mls/hr IVPB Q48H [facility] Last Admin: 08/30/19 11:10 Dose: 100 mls/hr Levothyroxine Sodium (Synthroid Tab*) 175 mcg PO DAILY@0600 [facility] Last Admin: 08/31/19 06:04 Dose: 175 mcg Melatonin (Melatonin) 9 mg PO BEDTIME [facility] Last Admin: 08/30/19 21:47 Dose: 9 mg Metoprolol Succinate (Toprol Xl Tab*) 25 mg PO BID [facility] Last Admin: 08/31/19 08:25 Dose: 25 mg Mometasone Furoate (Asmanex 220 Mcg Mdi *) 1 puff INH QPM [facility] Last Admin: 08/30/19 19:45 Dose: 1 puff Montelukast Sodium (Singulair Tab*) 10 mg PO DAILY [facility] Last Admin: 08/31/19 08:27 Dose: 10 mg Multivitamins/Minerals (Theragran/Minerals Tab*) 1 tab PO DAILY [facility] Last Admin: 08/31/19 08:29 Dose: 1 tab Pantoprazole Sodium (Protonix Tab*) 40 mg PO BID [facility] Last Admin: 08/31/19 08:26 Dose: 40 mg Polyethylene Glycol/Electrolytes (Miralax (17 Gm Dose Joel)) 17 gm PO DAILY PRN PRN Reason: CONSTIPATION Last Admin: 08/29/19 08:29 Dose: 17 gm Pramipexole Dihydrochloride (Mirapex Tab*) 2 mg PO BEDTIME [facility] Last Admin: 08/30/19 21:48 Dose: 2 mg Primidone (Mysoline 250 Mg Tab (*)) 150 mg PO BEDTIME [facility] Last Admin: 08/30/19 21:49 Dose: 150 mg Senna (Senokot 8.6 Mg Tab*) 2 tab PO BID [facility] Last Admin: 08/31/19 08:26 Dose: 2 tab Throat Lozenges (Chloraseptic Juliane*) 1 juliane PO Q6H PRN PRN Reason: SORE THROAT Last Admin: 08/28/19 15:59 Dose: 1 juliane Torsemide (Demadex*) 20 mg PO DAILY [facility] Last Admin: 08/31/19 08:26 Dose: 20 mg Venlafaxine HCl (Effexor Xr Cap*) 37.5 mg PO BEDTIME [facility] Last Admin: 08/30/19 21:49 Dose: 37.5 mg Vital Signs - 8 hr 08/31/19 08/31/19 08/31/19 11:04 12:23 14:31 Temperature 97.3 F Pulse Rate 49 Respiratory 16 18 16 Rate Blood Pressure 112/46 (mmHg) O2 Sat by Pulse 94 Oximetry 08/31/19 08/31/19 08/31/19 15:13 16:00 17:50 Temperature 97.2 F Pulse Rate 52 Respiratory 18 16 Rate Blood Pressure 152/45 (mmHg) O2 Sat by Pulse 96 96 Oximetry Oxygen Devices in Use Now: None Appearance: Obese, elderly white female, laying in bed, appearing comfortable and in NAD Eyes: No Scleral Icterus, - - PERRL Ears/Nose/Mouth/Throat: Mucous Membranes Moist Neck: Trachea Midline Respiratory: Symmetrical Chest Expansion and Respiratory Effort, Clear to Auscultation Cardiovascular: NL Sounds; No Murmurs; No JVD, RRR Abdominal: - - abd soft, nontender, nondistended Extremities: No Clubbing, Cyanosis, - - lloyd wrap to R knee clean/dry/intact; bilateral +1-2 pitting edema pretibially bilaterally Skin: No Rash or Ulcers Neurological: Alert and Oriented x 3, - - no asterixis Result Diagrams: 08/30/19 06:53 08/30/19 06:53 Additional Lab and Data: Laboratory Results - last 24 hr 08/27/19 08/28/19 08/29/19 06:08 16:25 04:21 WBC 4.4 RBC 2.38 L Hgb 7.9 L Hct 23 L MCV 97 MCH 33 H MCHC 34 RDW 13 Plt Count 195 MPV 7.8 Neut % (Auto) 45.1 Lymph % (Auto) 38.8 [place] % (Auto) 9.9 Eos % (Auto) 5.7 Baso % (Auto) 0.5 Absolute Neuts (auto) 2.0 Absolute Lymphs (auto) 1.7 Absolute Monos (auto) 0.4 Absolute Eos (auto) 0.2 Absolute Basos (auto) 0.0 Absolute Nucleated RBC 0.0 Nucleated RBC % 0.0 Sodium 133 L Potassium 4.8 Chloride 104 Carbon Dioxide 25 Anion Gap 4 BUN 62 H Creatinine 2.08 H Est GFR ( Amer) 27.8 Est GFR (Non-Af Amer) 23.0 BUN/Creatinine Ratio 29.8 H Glucose 134 H Uric Acid 10.5 H Calcium 8.0 L C-Reactive Protein 30.18 H Ur Creatinine Concen 34.95 Ur Urea Nitrogen Conc 299 08/29/19 04:21 WBC RBC Hgb Hct MCV MCH MCHC RDW Plt Count MPV Neut % (Auto) Lymph % (Auto) [place] % (Auto) Eos % (Auto) Baso % (Auto) Absolute Neuts (auto) Absolute Lymphs (auto) Absolute Monos (auto) Absolute Eos (auto) Absolute Basos (auto) Absolute Nucleated RBC Nucleated RBC % Sodium 134 L Potassium 4.5 Chloride 102 Carbon Dioxide 29 Anion Gap 3 BUN 61 H Creatinine 1.89 H Est GFR ( Amer) 31.0 Est GFR (Non-Af Amer) 25.7 BUN/Creatinine Ratio 32.3 H Glucose 142 H Uric Acid Calcium 8.1 L C-Reactive Protein Ur Creatinine Concen Ur Urea Nitrogen Conc Microbiology and Other Data: Microbiology 08/25/19 16:30 Wound Anaerobic Culture - Final 08/25/19 16:30 Knee Right Skin and Soft Tissue MRSA/MSSA (PCR - Final Mrsa Negative S.aureus Negative 08/25/19 16:30 Knee Right Gram Stain - Final 08/25/19 16:30 Knee Right Wound Culture - Final Vre Enterococcus Faecium 08/24/19 15:51 Blood Venous Aerobic Blood Culture - Preliminary No Growth Day 4 08/24/19 15:51 Blood Venous Anaerobic Blood Culture - Preliminary No Growth Day 4 08/24/19 15:52 Blood Venous Aerobic Blood Culture - Preliminary No Growth Day 4 08/24/19 15:52 Blood Venous Anaerobic Blood Culture - Preliminary No Growth Day 4 08/24/19 16:30 Knee Right Skin and Soft Tissue MRSA/MSSA (PCR - Final Mrsa Negative S.aureus Negative 08/24/19 16:30 Knee Right Gram Stain - Final 08/24/19 16:30 Knee Right Wound Culture - Final Enterococcus Faecium Normal Dede Assess/Plan/Problems-Billing Ms Martin is a 78 year old female PMH of CAD s/p CABG, CKD, HTN, VALENTIN([place] PM), BMI 43, pAfib (on amio, no a/c 2/ gib), myeloproliferative disorder, gout, who had recent right medial knee washout's (culture negative at that time) with worsening symptoms on outpatient doxycyline. Found to have VRE on recent culture. - Patient Problems (1) Abscess of knee, right Current Visit: Yes Status: Acute Code(s): L02.415 - CUTANEOUS ABSCESS OF RIGHT LOWER LIMB SNOMED Code(s): 05089629 Comment: Pt had been on bactrim initially for suspected infected jauregui's cyst. Initial I& D by Ortho on 08/09/2019 with drainage of clear fluid, no growth on culture. Pt returned with drainage from knee while on outpatient doxycyline -Now s/p I&D 08/25. Wound vac applied 08/28 with repeat washout; repeat washout again 08/30; plan for repeat washout 09/02 -wound culture with VRE -was previously on linezolid during this hospitalization, now on daptomycin d/t concern for serotonin syndrome (had asterixis which has resolved since change) - ID recs appreciated (2) Asterixis Current Visit: Yes Status: Acute Code(s): R27.8 - OTHER LACK OF COORDINATION SNOMED Code(s): 17213367 Comment: -resolved -likely due to serotonin syndrome related to venlafaxine and linezolid combo (3) Chronic diastolic (congestive) heart failure Current Visit: Yes Status: Acute Code(s): I50.32 - CHRONIC DIASTOLIC ( CONGESTIVE) HEART FAILURE SNOMED Code(s): 853940317 Comment: -continue home torsemide (4) Atrial fibrillation Current Visit: Yes Status: Chronic Code(s): I48.91 - UNSPECIFIED ATRIAL FIBRILLATION SNOMED Code(s): 06337634 Comment: -Continue amiodarone and metoprolol -rate controlled -not on AC due to h/o PUD (5) Chronic pain Current Visit: Yes Status: Acute Code(s): G89.29 - OTHER CHRONIC PAIN SNOMED Code(s): 07778688 Comment: -continue home hydrocodone (6) HLD (hyperlipidemia) Current Visit: Yes Status: Chronic Code(s): E78.5 - HYPERLIPIDEMIA, UNSPECIFIED SNOMED Code(s): 07344566 Comment: -Continue zetia (7) Hypertension Current Visit: Yes Status: Chronic Priority: High Code(s): I10 - ESSENTIAL (PRIMARY) HYPERTENSION SNOMED Code(s): 58728468 Comment: -Normotensive -Continue metoprolol and amlodipine (8) CAD (coronary artery disease) Current Visit: No Status: Chronic Priority: High Code(s): I25.10 - ATHSCL HEART DISEASE OF [place] CORONARY ARTERY W/O ANG PCTRS SNOMED Code(s): 90049515 Comment: - Continue metoprolol, amlodipine, Zetia. She's intolerant of statins and cannot afford PCSK9 agents. - Home plavix has been held since admission given her surgical procedures -CABG was ~Aug 2018. (9) CKD (chronic kidney disease) Current Visit: No Status: Chronic Priority: High Code(s): N18.9 - CHRONIC KIDNEY DISEASE, UNSPECIFIED SNOMED Code(s): 868592005 Comment: -at baseline (10) DVT prophylaxis Current Visit: Yes Status: Acute Code(s): ORY6657 - SNOMED Code(s): 853282947 Comment: -elia (11) Full code status Current Visit: Yes Status: Acute Code(s): Z78.9 - OTHER SPECIFIED HEALTH STATUS SNOMED Code(s): 460010071 Status and Disposition: .
[2019-08-31] MEDS: Mometasone 220 MCG MDI INH SCH (20:01)
[2019-08-31] MEDS: Fluticasone NASAL SPRAY 50MCG* 16 gm SPRAY BTL BOTH NARES SCH (20:54)
[2019-08-31] MEDS: Pramipexole TAB* 0.5 MG PO SCH (20:54)
[2019-08-31] MEDS: Venlafaxine EXT RELEASE CAP* 37.5 MG PO SCH (20:55)
[2019-08-31] MEDS: Melatonin 3 MG TAB PO SCH (20:55)
[2019-08-31] MEDS: Primidone 50 mg TAB (*) PO SCH (20:56)
[2019-09-01] MEDS: HYDROcodone/ACETAMIN 5-325 MG* 1 TAB PO PRN ×2 (01:56→07:19)
[2019-09-01] MEDS: Levothyroxine TAB* 175 MCG TAB PO SCH (06:50)
[2019-09-01] MEDS: Amiodarone TAB* 200 MG PO SCH (09:33)
[2019-09-01] MEDS: Metoprolol Succinate XL TAB* 25 MG PO SCH ×2 (09:33→22:39)
[2019-09-01] MEDS: amLODIPine TAB* 5 MG PO SCH (09:34)
[2019-09-01] MEDS: Senna TAB 8.6 mg* TAB PO SCH ×2 (09:34→22:38)
[2019-09-01] MEDS: Torsemide TAB* 20 MG PO SCH (09:34)
[2019-09-01] MEDS: Ezetimibe TAB* 10 MG PO SCH (09:34)
[2019-09-01] MEDS: Docusate CAP* 100 MG PO SCH ×2 (09:34→22:38)
[2019-09-01] MEDS: Montelukast Sodium TAB* 10 MG PO SCH (09:34)
[2019-09-01] MEDS: Pantoprazole TAB * 40 MG TAB PO SCH ×2 (09:34→22:39)
[2019-09-01] MEDS: Cholecalciferol TAB* 1000 UNITS PO SCH (09:34)
[2019-09-01] MEDS: Cetirizine* 10 MG TAB PO SCH (09:34)
[2019-09-01] MEDS: Multivitamins/Minerals TAB PO SCH (09:35)
--- NOTE | 2019-09-01 09:49 | PN ---
Subjective Date of Service: 09/01/19 Interval History: Pt is feeling well. She states her pain is under decent control. She states the shaking she was having previously is not completely gone but improved. Objective Active Medications: Hydrocodone Bitart/Acetaminophen ([place] 5-325 Tab*) 2 tab PO Q4H PRN PRN Reason: Pain - severe pain Last Admin: 09/01/19 07:19 Dose: 2 tab Albuterol (Ventolin Hfa Inhaler*) 2 puff INH Q6HR PRN PRN Reason: SHORTNESS OF BREATH Amiodarone HCl (Cordarone Tab*) 100 mg PO DAILY [facility] Last Admin: 09/01/19 09:33 Dose: 100 mg Amlodipine Besylate (Norvasc Tab*) 10 mg PO DAILY [facility] Last Admin: 09/01/19 09:34 Dose: 10 mg Cetirizine HCl (Zyrtec*) 10 mg PO DAILY [facility] Last Admin: 09/01/19 09:34 Dose: 10 mg Cholecalciferol (Vitamin D Tab*) 2,000 units PO DAILY [facility] Last Admin: 09/01/19 09:34 Dose: 2,000 units Docusate Sodium (Colace Cap*) 200 mg PO BID [facility] Last Admin: 09/01/19 09:34 Dose: 200 mg Ezetimibe (Zetia Tab*) 10 mg PO DAILY [facility] Last Admin: 09/01/19 09:34 Dose: 10 mg Enoxaparin Sodium (Lovenox(*)) 30 mg SUBCUT DAILY@1200 [facility] Last Admin: 08/31/19 13:08 Dose: 30 mg Fluticasone Propionate (Flonase Nasal [place] 50mcg*) 1 spray BOTH NARES BEDTIME [facility] Last Admin: 08/31/19 20:54 Dose: 1 spray Heparin Sodium (Porcine) (Heparin Flush Picc/Ml/Cvc(*)) 1 ml FLUSH 0600,1800 [facility]; Protocol Last Admin: 09/01/19 06:50 Dose: 1 ml Daptomycin 500 mg/ Sodium (Chloride) 60 mls @ 100 mls/hr IVPB Q48H [facility] Last Admin: 08/30/19 11:10 Dose: 100 mls/hr Levothyroxine Sodium (Synthroid Tab*) 175 mcg PO DAILY@0600 [facility] Last Admin: 09/01/19 06:50 Dose: 175 mcg Melatonin (Melatonin) 9 mg PO BEDTIME [facility] Last Admin: 08/31/19 20:55 Dose: 9 mg Metoprolol Succinate (Toprol Xl Tab*) 25 mg PO BID [facility] Last Admin: 09/01/19 09:33 Dose: 25 mg Mometasone Furoate (Asmanex 220 Mcg Mdi *) 1 puff INH QPM [facility] Last Admin: 08/31/19 20:01 Dose: 1 puff Montelukast Sodium (Singulair Tab*) 10 mg PO DAILY [facility] Last Admin: 09/01/19 09:34 Dose: 10 mg Multivitamins/Minerals (Theragran/Minerals Tab*) 1 tab PO DAILY [facility] Last Admin: 09/01/19 09:35 Dose: 1 tab Pantoprazole Sodium (Protonix Tab*) 40 mg PO BID [facility] Last Admin: 09/01/19 09:34 Dose: 40 mg Polyethylene Glycol/Electrolytes (Miralax (17 Gm Dose Joel)) 17 gm PO DAILY PRN PRN Reason: CONSTIPATION Last Admin: 08/29/19 08:29 Dose: 17 gm Pramipexole Dihydrochloride (Mirapex Tab*) 2 mg PO BEDTIME [facility] Last Admin: 08/31/19 20:54 Dose: 2 mg Primidone (Mysoline 250 Mg Tab (*)) 150 mg PO BEDTIME [facility] Last Admin: 08/31/19 20:56 Dose: 150 mg Senna (Senokot 8.6 Mg Tab*) 2 tab PO BID [facility] Last Admin: 09/01/19 09:34 Dose: 2 tab Throat Lozenges (Chloraseptic Juliane*) 1 juliane PO Q6H PRN PRN Reason: SORE THROAT Last Admin: 08/28/19 15:59 Dose: 1 juliane Torsemide (Demadex*) 20 mg PO DAILY [facility] Last Admin: 09/01/19 09:34 Dose: 20 mg Venlafaxine HCl (Effexor Xr Cap*) 37.5 mg PO BEDTIME [facility] Last Admin: 08/31/19 20:55 Dose: 37.5 mg Vital Signs - 8 hr 09/01/19 09/01/19 09/01/19 01:56 06:51 07:19 Temperature Pulse Rate Respiratory 16 16 20 Rate Blood Pressure (mmHg) O2 Sat by Pulse Oximetry 09/01/19 09/01/19 07:25 07:49 Temperature 97.9 F Pulse Rate 55 Respiratory 16 18 Rate Blood Pressure 149/72 (mmHg) O2 Sat by Pulse 98 98 Oximetry Oxygen Devices in Use Now: None Appearance: Elderly obese female sitting up in bed, NAD Eyes: No Scleral Icterus Ears/Nose/Mouth/Throat: Mucous Membranes Moist Respiratory: Symmetrical Chest Expansion and Respiratory Effort, Clear to Auscultation Cardiovascular: NL Sounds; No Murmurs; No JVD, - - irregular controlled HR, trace-1+ LE edema Abdominal: NL Sounds; No Tenderness; No Distention Extremities: No Clubbing, Cyanosis Skin: No Nodules or Sclerosis, - - R knee with wound vac in place Neurological: Alert and Oriented x 3 Result Diagrams: 08/30/19 06:53 08/30/19 06:53 Additional Lab and Data: Laboratory Results - last 24 hr 08/27/19 08/28/19 08/29/19 06:08 16:25 04:21 WBC 4.4 RBC 2.38 L Hgb 7.9 L Hct 23 L MCV 97 MCH 33 H MCHC 34 RDW 13 Plt Count 195 MPV 7.8 Neut % (Auto) 45.1 Lymph % (Auto) 38.8 [place] % (Auto) 9.9 Eos % (Auto) 5.7 Baso % (Auto) 0.5 Absolute Neuts (auto) 2.0 Absolute Lymphs (auto) 1.7 Absolute Monos (auto) 0.4 Absolute Eos (auto) 0.2 Absolute Basos (auto) 0.0 Absolute Nucleated RBC 0.0 Nucleated RBC % 0.0 Sodium 133 L Potassium 4.8 Chloride 104 Carbon Dioxide 25 Anion Gap 4 BUN 62 H Creatinine 2.08 H Est GFR ( Amer) 27.8 Est GFR (Non-Af Amer) 23.0 BUN/Creatinine Ratio 29.8 H Glucose 134 H Uric Acid 10.5 H Calcium 8.0 L C-Reactive Protein 30.18 H Ur Creatinine Concen 34.95 Ur Urea Nitrogen Conc 299 08/29/19 04:21 WBC RBC Hgb Hct MCV MCH MCHC RDW Plt Count MPV Neut % (Auto) Lymph % (Auto) [place] % (Auto) Eos % (Auto) Baso % (Auto) Absolute Neuts (auto) Absolute Lymphs (auto) Absolute Monos (auto) Absolute Eos (auto) Absolute Basos (auto) Absolute Nucleated RBC Nucleated RBC % Sodium 134 L Potassium 4.5 Chloride 102 Carbon Dioxide 29 Anion Gap 3 BUN 61 H Creatinine 1.89 H Est GFR ( Amer) 31.0 Est GFR (Non-Af Amer) 25.7 BUN/Creatinine Ratio 32.3 H Glucose 142 H Uric Acid Calcium 8.1 L C-Reactive Protein Ur Creatinine Concen Ur Urea Nitrogen Conc Microbiology and Other Data: Microbiology 08/25/19 16:30 Wound Anaerobic Culture - Final 08/25/19 16:30 Knee Right Skin and Soft Tissue MRSA/MSSA (PCR - Final Mrsa Negative S.aureus Negative 08/25/19 16:30 Knee Right Gram Stain - Final 08/25/19 16:30 Knee Right Wound Culture - Final Vre Enterococcus Faecium 08/24/19 15:51 Blood Venous Aerobic Blood Culture - Preliminary No Growth Day 4 08/24/19 15:51 Blood Venous Anaerobic Blood Culture - Preliminary No Growth Day 4 08/24/19 15:52 Blood Venous Aerobic Blood Culture - Preliminary No Growth Day 4 08/24/19 15:52 Blood Venous Anaerobic Blood Culture - Preliminary No Growth Day 4 08/24/19 16:30 Knee Right Skin and Soft Tissue MRSA/MSSA (PCR - Final Mrsa Negative S.aureus Negative 08/24/19 16:30 Knee Right Gram Stain - Final 08/24/19 16:30 Knee Right Wound Culture - Final Enterococcus Faecium Normal Dede Assess/Plan/Problems-Billing Ms Martin is a 78 year old female PMH of CAD s/p CABG, CKD, HTN, VALENTIN([place] PM), BMI 43, pAfib (on amio, no a/c 2/2 gib), myeloproliferative disorder, gout, who had recent right medial knee washout's (culture negative at that time) with worsening symptoms on outpatient doxycyline. Found to have VRE on recent culture. - Patient Problems (1) Abscess of knee, right Current Visit: Yes Status: Acute Code(s): L02.415 - CUTANEOUS ABSCESS OF RIGHT LOWER LIMB SNOMED Code(s): 14526749 Comment: Initial I&D by Ortho on 08/09/2019 with drainage of clear fluid, no growth on culture. Pt returned with drainage from knee while on outpatient doxycyline and now s/p I&D 08/25. Wound vac applied 08/28 with repeat washout; repeat washout again 08/30 with wound vac placement and plan for repeat washout 09/02. Continue daptomycin per ID. Will need a prolonged course of therapy. (2) Asterixis Current Visit: Yes Status: Acute Code(s): R27.8 - OTHER LACK OF COORDINATION SNOMED Code(s): 07060275 Comment: Resolved. Likely due to serotonin syndrome related to venlafaxine and linezolid combination. (3) Chronic diastolic (congestive) heart failure Current Visit: Yes Status: Acute Code(s): I50.32 - CHRONIC DIASTOLIC ( CONGESTIVE) HEART FAILURE SNOMED Code(s): 340840170 Comment: Pt is appearing relatively euvolemic with mild LE edema. Continue home torsemide dose. (4) Chronic pain Current Visit: Yes Status: Acute Code(s): G89.29 - OTHER CHRONIC PAIN SNOMED Code(s): 99141129 Comment: Continue prn norco. (5) Atrial fibrillation Current Visit: Yes Status: Chronic Code(s): I48.91 - UNSPECIFIED ATRIAL FIBRILLATION SNOMED Code(s): 30092693 Comment: Pt is rate controlled. Continue amiodarone and metoprolol. She is not on anticoagulation due to h/o PUD. (6) CAD (coronary artery disease) Current Visit: Yes Status: Chronic Code(s): I25.10 - ATHSCL HEART DISEASE OF [place] CORONARY ARTERY W/O ANG PCTRS SNOMED Code(s): 15153394 Comment: Continue metoprolol, amlodipine, Zetia. Home plavix has been held since admission given her surgical procedures. She underwent CABG in 08/2018. (7) CKD (chronic kidney disease), stage III Current Visit: Yes Status: Chronic Code(s): N18.3 - CHRONIC KIDNEY DISEASE, STAGE 3 (MODERATE) SNOMED Code(s): 142027106 Comment: Creatinine as of last check was stable. Repeat tomorrow. (8) HLD (hyperlipidemia) Current Visit: Yes Status: Chronic Code(s): E78.5 - HYPERLIPIDEMIA, UNSPECIFIED SNOMED Code(s): 46678593 Comment: Continue zetia. (9) Hypertension Current Visit: Yes Status: Chronic Code(s): I10 - ESSENTIAL (PRIMARY) HYPERTENSION SNOMED Code(s): 58309111 Comment: BP is under good control. Continue metoprolol and amlodipine. (10) Hypothyroidism Current Visit: Yes Status: Chronic Code(s): E03.9 - HYPOTHYROIDISM, UNSPECIFIED SNOMED Code(s): 49443891 Comment: Continue levothyroxine at current dose. Last TSH in 01/2019 was in good range. (11) RLS (restless legs syndrome) Current Visit: Yes Status: Chronic Comment: Continue mirapex. (12) Morbid obesity Current Visit: Yes Status: Acute Code(s): E66.01 - MORBID (SEVERE) OBESITY DUE TO EXCESS CALORIES SNOMED Code(s): 315671433 Comment: BMI 43.5. (13) DVT prophylaxis Current Visit: Yes Status: Acute Code(s): HVJ7875 - SNOMED Code(s): 160294359 Comment: lovenox (14) Full code status Current Visit: Yes Status: Acute Code(s): Z78.9 - OTHER SPECIFIED HEALTH STATUS SNOMED Code(s): 773936450 Status and Disposition: .
[2019-09-01] MEDS: DAPTOmycin SDV(*) 500 MG in NS 0.9% 50 ML* 50 ML IVPB SCH (10:25)
--- NOTE | 2019-09-01 11:40 | PN ---
Progress Note - Progress Note Date of Service: 09/01/19 SOAP: Subjective: CC: Right leg infection HPI: Ms. Martin is a 78 yo female with PMH significant for CKD3, VALENTIN, lymphedema, asthma, RLS, HTN, anemia, myeloproliferative disorder, heart failure , A fib, essential tremor, fibromyalgia, GERD, hypothyroidism, headache, and CAD ; s/p excision of right medial leg cyst with recurrence of drainage and erythema while on doxycycline. Denies fever, chills, nausea, vomiting, or diarrhea. Reports that she feels the UE tremors are secondary to the oxycodone that she has been getting and they are improving since the ABX and the pain medication was changed. Objective: Vital Signs - 8 hr 09/01/19 09/01/19 09/01/19 06:51 07:19 07:25 Temperature 97.9 F Pulse Rate 55 Respiratory 16 20 16 Rate Blood Pressure 149/72 (mmHg) O2 Sat by Pulse 98 Oximetry Physical Exam: General: NAD, sitting up in a chair Neurological: Alert and Oriented HEENT: Moist MM Cardiovascular: Heart rate regular Respiratory: Lung sound clear Abdomen: Bowel sounds present; ABD soft, non tender and non distended MSK: Able to move bilateral LEs Skin: No rash. Wound vac to right medial leg in place, no surrounding erythema Microbiology 08/24/19 15:52 Aerobic Blood Culture - Final Blood Venous No Growth Day 5 Anaerobic Blood Culture - Final No Growth Day 5 08/24/19 15:51 Aerobic Blood Culture - Final Blood Venous No Growth Day 5 Anaerobic Blood Culture - Final No Growth Day 5 08/25/19 16:30 Anaerobic Culture - Final Wound 08/25/19 16:30 Skin and Soft Tissue MRSA/MSSA (PCR - Final Knee Right Mrsa Negative S.aureus Negative Gram Stain - Final Wound Culture - Final Vre Enterococcus Faecium 08/24/19 16:30 Skin and Soft Tissue MRSA/MSSA (PCR - Final Knee Right Mrsa Negative S.aureus Negative Gram Stain - Final Wound Culture - Final Enterococcus Faecium Normal Dede Assessment: 1. Right leg abscess. Wound cultures with VRE. S/P I+D. Continues to have a wound vac in place. Plan for return to the OR tomorrow. Blood cultures with no growth to date. Afebrile and no leukocytosis. CRP trending down. 2. CKD, stage 3. 3. Morbid obesity. BMI 43.5. Plan: Continue Daptomycin 500 mg IV Q48 hours (renal dosing), day 6. She will need a prolonged course of IV ABX, PICC line has been placed. Weekly labs while on IV ABX: CBC, CMP, and CRP.
[2019-09-01] MEDS ORDERED: Buffered Lidocaine 1% SYRIN* 1 ML/SYRINGE INTRADERM ONE (11:49)
[2019-09-01] MEDS: Enoxaparin(*) 30 MG/0.3 ML SYR SUBCUT SCH (11:56)
--- NOTE | 2019-09-01 15:16 | PN ---
Progress Note - Progress Note Date of Service: 09/01/19 SOAP: Subjective: []Pt seen at bedside. She is comfortable without complaints. Denies CP, SOB, dizziness, nausea. Objective: []Gen: NAD, nontoxic appearing RLE: wound vac in place with good suction, no surrounding erythema, dressing c/d /i. able to DF/PF, 2+ DP pulse, intact sensation distally Calves supple and nontender Assessment: s/p right medial knee I &D with wound vac change Plan: 1) continue PT/OT 2) Continue IV Abx- dapto 3) OR with Dr Vaca for repeat I&D with wound vac change. Hold lovenox 09/02, NPO after midnight. Patient aware and agreeable Vital Signs Temp 97.9 F 09/01/19 07:25 Pulse 59 09/01/19 11:49 Resp 16 09/01/19 11:49 BP 147/47 09/01/19 11:49 Pulse Ox 97 09/01/19 11:49 Intake & Output 08/31/19 09/01/19 09/01/19 18:59 06:59 18:59 Intake Total 958 436 5772 Balance 245 908 0916 Intake: Oral 880 603 2030 Other: Estimated Void Medium Medium Medium # Bowel Movements 1 1 0 Estimated Stool Amount Medium Medium # Voids 2 1 2 Laboratory Last Values WBC 5.4 10^3/uL (3.5-10.8) 08/30/19 06:53 RBC 2.56 10^6 /uL (3.70-4.87) L 08/30/19 06:53 Hgb 8.4 g/dL (12.0-16.0) L 08/30/19 06:53 Hct 25 % (35-47) L 08/30/19 06:53 MCV 97 fL (80-97) 08/30/19 06:53 MCH 33 pg (27-31) H 08/30/19 06:53 MCHC 34 g/dL (31-36) 08/30/19 06:53 RDW 13 % (10-15) 08/30/19 06:53 Plt Count 197 10^3/uL (150-450) 08/30/19 06:53 MPV 7.7 fL (7.4-10.4) 08/30/19 06:53 Neut % (Auto) 57.2 % 08/30/19 06:53 Lymph % (Auto) 29.4 % 08/30/19 06:53 [place] % (Auto) 8.1 % 08/30/19 06:53 Eos % (Auto) 4.5 % 08/30/19 06:53 Baso % (Auto) 0.8 % 08/30/19 06:53 Absolute Neuts (auto) 3.1 10^3/ul (1.5-7.7) 08/30/19 06:53 Absolute Lymphs (auto) 1.6 10^3/ul (1.0-4.8) 08/30/19 06:53 Absolute Monos (auto) 0.4 10^3/ul (0-0.8) 08/30/19 06:53 Absolute Eos (auto) 0.2 10^3/ul (0-0.6) 08/30/19 06:53 Absolute Basos (auto) 0.0 10^3/ul (0-0.2) 08/30/19 06:53 Absolute Nucleated RBC 0.0 10^3/ul 08/30/19 06:53 Nucleated RBC % 0.1 08/30/19 06:53 Sodium 133 mmol/L (135-145) L 08/30/19 06:53 Potassium 5.0 mmol/L (3.5-5.0) 08/30/19 06:53 Chloride 102 mmol/L (101-111) 08/30/19 06:53 Carbon Dioxide 26 mmol/L (22-32) 08/30/19 06:53 Anion Gap 5 mmol/L (2-11) 08/30/19 06:53 BUN 62 mg/dL (6-24) H 08/30/19 06:53 Creatinine 2.01 mg/dL (0.51-0.95) H 08/30/19 06:53 Est GFR ( Amer) 28.9 (>60) 08/30/19 06:53 Est GFR (Non-Af Amer) 23.9 (>60) 08/30/19 06:53 BUN/Creatinine Ratio 30.8 (8-20) H 08/30/19 06:53 Glucose 113 mg/dL (70-100) H 08/30/19 06:53 Uric Acid 10.5 mg/dL (2.3-6.6) H 08/27/19 06:08 Calcium 8.2 mg/dL (8.6-10.3) L 08/30/19 06:53 Total Bilirubin 0.20 mg/dL (0.2-1.0) 08/29/19 04:21 Direct Bilirubin 0.00 mg/dL (0.03-0.18) L 08/29/19 04:21 Indirect Bilirubin Not Reportable 08/29/19 04:21 AST 12 U/L (13-39) L 08/29/19 04:21 ALT 6 U/L (7-52) L 08/29/19 04:21 Alkaline Phosphatase 78 U/L (34-104) 08/29/19 04:21 Ammonia 45 mcmol/L (16-53) 08/29/19 09:33 C-Reactive Protein 13.43 mg/L (<8.01) H 08/30/19 06:53 Total Protein 5.1 g/dL (6.4-8.9) L 08/29/19 04:21 Albumin 2.6 g/dL (3.2-5.2) L 08/29/19 04:21 Globulin 2.5 g/dL (2-4) 08/29/19 04:21 Albumin/Globulin Ratio 1.0 (1-3) 08/29/19 04:21 Ur Creatinine Concen 34.95 mg/dL 08/28/19 16:25 Ur Urea Nitrogen Conc 299 mg/dL 08/28/19 16:25
[2019-09-01] MEDS: Mometasone 220 MCG MDI INH SCH (19:16)
[2019-09-01] MEDS: Melatonin 3 MG TAB PO SCH (22:34)
[2019-09-01] MEDS: Pramipexole TAB* 0.5 MG PO SCH (22:35)
[2019-09-01] MEDS: Venlafaxine EXT RELEASE CAP* 37.5 MG PO SCH (22:36)
[2019-09-01] MEDS: Primidone 50 mg TAB (*) PO SCH (22:38)
[2019-09-01] MEDS: Fluticasone NASAL SPRAY 50MCG* 16 gm SPRAY BTL BOTH NARES SCH (22:40)
[2019-09-02] MEDS ORDERED: Analgesic BALM* 114 GM TOPICAL PRN (00:58)
[2019-09-02 06:37] LABS: ABS Eosinophils 0.2 10^3/ul (0-0.6); ABS Lymphocytes 1.6 10^3/ul (1.0-4.8); ABS Monocytes 0.4 10^3/ul (0-0.8); ABS Neutrophils 1.9 10^3/ul (1.5-7.7); Hematocrit 24 % (35-47); Hemoglobin 8.2 g/dL (12.0-16.0); Lymphocyte % 39.5 %; Mean Corpuscular HGB Conc 34 g/dL (31-36); Mean Corpuscular Hemoglobin 33 pg (27-31); Mean Corpuscular Volume 97 fL (80-97); Mean Platelet Volume 7.1 fL (7.4-10.4); Platelet Count 190 10^3/uL (150-450); Red Blood Count 2.52 10^6 /uL (3.70-4.87); Red Cell Distribution Width 13 % (10-15); White Blood Count 4.2 10^3/uL (3.5-10.8)
[2019-09-02 06:43] LABS: INR 1.01 (0.82-1.09)
[2019-09-02 06:58] LABS: BUN/Creatinine Ratio 34.2 (8-20); Calcium 8.3 mg/dL (8.6-10.3); EGFR African American 39.9 (>60); Potassium 4.9 mmol/L (3.5-5.0)
[2019-09-02] MEDS: Levothyroxine TAB* 175 MCG TAB PO SCH (07:18)
[2019-09-02] MEDS: Lactated Ringers 1000 ML Bag* 1,000 ML IV SCH (07:20)
--- NOTE | 2019-09-02 08:35 | PN ---
Subjective Date of Service: 09/02/19 Interval History: Pt is awaiting to go to OR. Feels well.Can't wait to go home Family History: Findings - Both parents had CAD. Social History: Findings - No alcohol or tobacco abuse. Lives with her who is her SDM. Past Medical History: Findings - VALENTIN, restless legs, HTN, asthma, GERD, hypothyroid, CKD, angina, PAF, CABG, arthroscopy, appy, choly, BL hip surgery, cataract surgery BL, 5 back surgeries, breast reduction Objective Active Medications: Hydrocodone Bitart/Acetaminophen ([place] 5-325 Tab*) 2 tab PO Q4H PRN PRN Reason: Pain - severe pain Last Admin: 09/01/19 07:19 Dose: 2 tab Albuterol (Ventolin Hfa Inhaler*) 2 puff INH Q6HR PRN PRN Reason: SHORTNESS OF BREATH Amiodarone HCl (Cordarone Tab*) 100 mg PO DAILY [facility] Last Admin: 09/01/19 09:33 Dose: 100 mg Amlodipine Besylate (Norvasc Tab*) 10 mg PO DAILY [facility] Last Admin: 09/01/19 09:34 Dose: 10 mg Cetirizine HCl (Zyrtec*) 10 mg PO DAILY [facility] Last Admin: 09/01/19 09:34 Dose: 10 mg Cholecalciferol (Vitamin D Tab*) 2,000 units PO DAILY [facility] Last Admin: 09/01/19 09:34 Dose: 2,000 units Docusate Sodium (Colace Cap*) 200 mg PO BID [facility] Last Admin: 09/01/19 22:38 Dose: Not Given Ezetimibe (Zetia Tab*) 10 mg PO DAILY [facility] Last Admin: 09/01/19 09:34 Dose: 10 mg Fluticasone Propionate (Flonase Nasal [place] 50mcg*) 1 spray BOTH NARES BEDTIME [facility] Last Admin: 09/01/19 22:40 Dose: 1 spray Heparin Sodium (Porcine) (Heparin Flush Picc/Ml/Cvc(*)) 1 ml FLUSH 0600,1800 [facility]; Protocol Last Admin: 09/02/19 06:13 Dose: 1 ml Daptomycin 500 mg/ Sodium (Chloride) 60 mls @ 100 mls/hr IVPB Q48H [facility] Last Admin: 09/01/19 10:25 Dose: 100 mls/hr Lactated Ringer's (Lactated Ringers 1000 Ml Bag*) 1,000 mls @ 100 mls/hr IV PER RATE [facility] Last Admin: 09/02/19 07:20 Dose: 100 mls/hr Levothyroxine Sodium (Synthroid Tab*) 175 mcg PO DAILY@0600 [facility] Last Admin: 09/02/19 07:18 Dose: 175 mcg Melatonin (Melatonin) 9 mg PO BEDTIME [facility] Last Admin: 09/01/19 22:34 Dose: 9 mg Metoprolol Succinate (Toprol Xl Tab*) 25 mg PO BID [facility] Last Admin: 09/01/19 22:39 Dose: 25 mg Mometasone Furoate (Asmanex 220 Mcg Mdi *) 1 puff INH QPM [facility] Last Admin: 09/01/19 19:16 Dose: 1 puff Montelukast Sodium (Singulair Tab*) 10 mg PO DAILY [facility] Last Admin: 09/01/19 09:34 Dose: 10 mg Multi-Ingredient Liniment/Rub (Rafael Pinto*) 1 applic TOPICAL DAILY PRN PRN Reason: PAIN - MILD Multivitamins/Minerals (Theragran/Minerals Tab*) 1 tab PO DAILY [facility] Last Admin: 09/01/19 09:35 Dose: 1 tab Pantoprazole Sodium (Protonix Tab*) 40 mg PO BID [facility] Last Admin: 09/01/19 22:39 Dose: 40 mg Polyethylene Glycol/Electrolytes (Miralax (17 Gm Dose Joel)) 17 gm PO DAILY PRN PRN Reason: CONSTIPATION Last Admin: 08/29/19 08:29 Dose: 17 gm Pramipexole Dihydrochloride (Mirapex Tab*) 2 mg PO BEDTIME [facility] Last Admin: 09/01/19 22:35 Dose: 2 mg Primidone (Mysoline 250 Mg Tab (*)) 150 mg PO BEDTIME [facility] Last Admin: 09/01/19 22:38 Dose: 150 mg Senna (Senokot 8.6 Mg Tab*) 2 tab PO BID [facility] Last Admin: 09/01/19 22:38 Dose: Not Given Throat Lozenges (Chloraseptic Juliane*) 1 juliane PO Q6H PRN PRN Reason: SORE THROAT Last Admin: 08/28/19 15:59 Dose: 1 juliane Torsemide (Demadex*) 20 mg PO DAILY [facility] Last Admin: 02/12/20 09:34 Dose: 20 mg Venlafaxine HCl (Effexor Xr Cap*) 37.5 mg PO BEDTIME [facility] Last Admin: 09/01/19 22:36 Dose: 37.5 mg Vital Signs - 8 hr 09/02/19 03:15 Temperature 97.0 F Pulse Rate 57 Respiratory 18 Rate Blood Pressure 142/34 (mmHg) O2 Sat by Pulse 94 Oximetry Oxygen Devices in Use Now: None Appearance: 78 yo F in nAD, AAOx3 Eyes: No Scleral Icterus, PERRLA Ears/Nose/Mouth/Throat: NL Teeth, Lips, Gums, Mucous Membranes Moist Neck: NL Appearance and Movements; NL JVP, Trachea Midline Respiratory: Symmetrical Chest Expansion and Respiratory Effort, Clear to Auscultation Cardiovascular: NL Sounds; No Murmurs; No JVD, - - irregular Abdominal: NL Sounds; No Tenderness; No Distention Lymphatic: No Cervical Adenopathy Extremities: No Clubbing, Cyanosis, - - b/l ankle edema Skin: - - R medial knee in post op drerssings and Vac dressing-not removed Neurological: Alert and Oriented x 3, NL Muscle Strength and Tone Result Diagrams: 09/02/19 06:25 09/02/19 06:25 Additional Lab and Data: Laboratory Results - last 24 hr 08/27/19 08/28/19 08/29/19 06:08 16:25 04:21 WBC 4.4 RBC 2.38 L Hgb 7.9 L Hct 23 L MCV 97 MCH 33 H MCHC 34 RDW 13 Plt Count 195 MPV 7.8 Neut % (Auto) 45.1 Lymph % (Auto) 38.8 [place] % (Auto) 9.9 Eos % (Auto) 5.7 Baso % (Auto) 0.5 Absolute Neuts (auto) 2.0 Absolute Lymphs (auto) 1.7 Absolute Monos (auto) 0.4 Absolute Eos (auto) 0.2 Absolute Basos (auto) 0.0 Absolute Nucleated RBC 0.0 Nucleated RBC % 0.0 Sodium 133 L Potassium 4.8 Chloride 104 Carbon Dioxide 25 Anion Gap 4 BUN 62 H Creatinine 2.08 H Est GFR ( Amer) 27.8 Est GFR (Non-Af Amer) 23.0 BUN/Creatinine Ratio 29.8 H Glucose 134 H Uric Acid 10.5 H Calcium 8.0 L C-Reactive Protein 30.18 H Ur Creatinine Concen 34.95 Ur Urea Nitrogen Conc 299 08/29/19 04:21 WBC RBC Hgb Hct MCV MCH MCHC RDW Plt Count MPV Neut % (Auto) Lymph % (Auto) [place] % (Auto) Eos % (Auto) Baso % (Auto) Absolute Neuts (auto) Absolute Lymphs (auto) Absolute Monos (auto) Absolute Eos (auto) Absolute Basos (auto) Absolute Nucleated RBC Nucleated RBC % Sodium 134 L Potassium 4.5 Chloride 102 Carbon Dioxide 29 Anion Gap 3 BUN 61 H Creatinine 1.89 H Est GFR ( Amer) 31.0 Est GFR (Non-Af Amer) 25.7 BUN/Creatinine Ratio 32.3 H Glucose 142 H Uric Acid Calcium 8.1 L C-Reactive Protein Ur Creatinine Concen Ur Urea Nitrogen Conc Microbiology and Other Data: Microbiology 08/25/19 16:30 Wound Anaerobic Culture - Final 08/25/19 16:30 Knee Right Skin and Soft Tissue MRSA/MSSA (PCR - Final Mrsa Negative S.aureus Negative 08/25/19 16:30 Knee Right Gram Stain - Final 08/25/19 16:30 Knee Right Wound Culture - Final Vre Enterococcus Faecium 08/24/19 15:51 Blood Venous Aerobic Blood Culture - Preliminary No Growth Day 4 08/24/19 15:51 Blood Venous Anaerobic Blood Culture - Preliminary No Growth Day 4 08/24/19 15:52 Blood Venous Aerobic Blood Culture - Preliminary No Growth Day 4 08/24/19 15:52 Blood Venous Anaerobic Blood Culture - Preliminary No Growth Day 4 08/24/19 16:30 Knee Right Skin and Soft Tissue MRSA/MSSA (PCR - Final Mrsa Negative S.aureus Negative 08/24/19 16:30 Knee Right Gram Stain - Final 08/24/19 16:30 Knee Right Wound Culture - Final Enterococcus Faecium Normal Dede Assess/Plan/Problems-Billing Ms Martin is a 78 year old female PMH of CAD s/p CABG, CKD, HTN, VALENTIN([place] PM), BMI 43, pAfib (on amio, no a/c 2/2 gib), myeloproliferative disorder, gout, who had recent right medial knee washout's (culture negative at that time) with worsening symptoms on outpatient doxycyline. Found to have VRE on recent culture. - Patient Problems (1) Abscess of knee, right Comment: Initial I&D by Ortho on 08/09/2019 with drainage of clear fluid, no growth on culture. Pt returned with drainage from knee while on outpatient doxycyline and now s/p I&D 08/25. Wound vac applied 08/28 with repeat washout; repeat washout again 08/30 with wound vac placement and plan for repeat washout 09/02. Continue daptomycin per ID. Will need a prolonged course of therapy. (2) Asterixis Comment: Resolved. Likely due to serotonin syndrome related to venlafaxine and linezolid combination. (3) Chronic diastolic (congestive) heart failure Comment: Pt is appearing relatively euvolemic with mild LE edema. Continue home torsemide dose. (4) Chronic pain Comment: Continue prn norco. (5) Atrial fibrillation Comment: Pt is rate controlled. Continue amiodarone and metoprolol. She is not on anticoagulation due to h/o PUD. (6) CAD (coronary artery disease) Comment: Continue metoprolol, amlodipine, Zetia. Home plavix has been held since admission given her surgical procedures. She underwent CABG in 08/2018. (7) CKD (chronic kidney disease), stage III Comment: Creatinine at baseline (8) Anemia Comment: Ferritin 384 in 04/08. - Hgb now stable, likely related to CKD and multiple surgical procedures. -no symptoms or signs of bleeding (9) DVT prophylaxis Comment: lovenox held preop Status and Disposition: inpatient .
[2019-09-02] MEDS: Docusate CAP* 100 MG PO SCH ×2 (10:05→21:48)
[2019-09-02] MEDS: Senna TAB 8.6 mg* TAB PO SCH ×2 (10:05→21:48)
[2019-09-02] MEDS: Cholecalciferol TAB* 1000 UNITS PO SCH (10:06)
[2019-09-02] MEDS: amLODIPine TAB* 5 MG PO SCH (10:06)
[2019-09-02] MEDS: Cetirizine* 10 MG TAB PO SCH (10:06)
[2019-09-02] MEDS: Metoprolol Succinate XL TAB* 25 MG PO SCH ×2 (10:06→21:44)
[2019-09-02] MEDS: Montelukast Sodium TAB* 10 MG PO SCH (10:07)
[2019-09-02] MEDS: Pantoprazole TAB * 40 MG TAB PO SCH ×2 (10:07→21:54)
[2019-09-02] MEDS: Multivitamins/Minerals TAB PO SCH (10:07)
[2019-09-02] MEDS: Amiodarone TAB* 200 MG PO SCH (10:07)
[2019-09-02] MEDS: Ezetimibe TAB* 10 MG PO SCH (10:07)
[2019-09-02] MEDS: Torsemide TAB* 20 MG PO SCH (10:07)
[2019-09-02] MEDS ORDERED: fentaNYL* 50 MCG/ML 2 ML VIAL (100 MCG VIAL) ONE (13:59)
[2019-09-02] MEDS ORDERED: Etomidate* 2 MG/ML 10 ML VIAL ONE (14:21)
[2019-09-02] MEDS ORDERED: Propofol* 10 MG/ML 20 ML BTL ONE (14:21)
[2019-09-02] MEDS ORDERED: Dexamethasone IV* 4 MG/ML 1 ML (4 MG) ONE (14:21)
[2019-09-02] MEDS ORDERED: Ondansetron INJ* 2 MG/ML VIAL ONE (14:21)
[2019-09-02] MEDS ORDERED: HYDROmorphone INJ1* 1 MG/ML SYRINGE ONE (14:32)
[2019-09-02] MEDS ORDERED: Naloxone* 0.4 MG/ML 1 ML VIAL IV PRN (14:38)
[2019-09-02] MEDS: HYDROmorphone INJ1* 1 MG/ML SYRINGE IV PRN ×2 (14:40→14:44)
[2019-09-02] MEDS ORDERED: HYDROcodone/ACETAMIN 5-325 MG* 1 TAB ONE (14:53)
[2019-09-02] MEDS: HYDROcodone/ACETAMIN 5-325 MG* 1 TAB PO PRN ×2 (14:54→19:28)
--- NOTE | 2019-09-02 16:46 | OP ---
Operative Report - Blank - Operative Report Date of Operation: 09/02/19 Note: PATIENT: Roxi Martin DATE OF : 1940 DATE OF SURGERY: 09/02/2019 SURGEON: Saw Vaca MD BANK OFFICER: PHYLLIS Mooney, whos assistance was necessary for positioning, retraction, help with instrumentation, and closure. ANESTHESIOLOGIST: Dr. Ocampo PREOPERATIVE DIAGNOSIS: Right medial knee wound and soft tissue infection POSTOPERATIVE DIAGNOSIS: Right medial knee wound and soft tissue infection OPERATION: 1. Right medial knee irrigation and debridement 2. Complex secondary closure of proximal half of right medial knee wound. 3. Placement of a wound VAC ANESTHESIA: General IMPLANTS: none TOURNIQUET TIME: none SPECIMENS: none ESTIMATED BLOOD LOSS: minimal COMPLICATIONS: none STATUS: Stable from the operating room to the recovery room and then back to the hospital floor. INDICATIONS FOR PROCEDURE: Roxi has a right medial knee soft tissue infection that has undergone multiple debridements and wound VAC changes. Both operative and non-operative treatment alternatives were reviewed. Further, the nature and risks of surgery were reviewed in careful detail again. DESCRIPTION OF PROCEDURE: The patient was seen in the preoperative holding unit and informed written consent was obtained. The appropriate extremity was marked. The patient was then brought to the operating room and carefully positioned on the operating room table. Anesthesia was induced. All bony prominences were padded with great care. A chlorhexidine based pre-scrub was performed followed by a chloraprep prep and drape in standard sterile fashion. A surgical safety pause was then conducted in which we confirmed the appropriate patient, extremity, planned procedure, availability of equipment, indication and administration of antibiotics, and DVT prophylaxis in the form of a compression boot on the non- surgical extremity. I began by thoroughly irrigating the wound with normal saline and cystoscopy tubing. The wound look much improved. There was some devitalized tissue in the skin, subcutaneous, muscle, and fascia layers, which were sharply debrided with a 15 blade scalpel. The wound measured 10 cm in length by 6 cm in width by 4 cm in depth. There was still significant tunneling of the wound distally. Proximally, the wound look much improved with healthy granulation tissue. Therefore, I decided to close the proximal half of the wound. This was done in a layered fashion utilizing 0 PDS for the deep layers. And for the superficial layer and skin I used 2-0 PDS in a vertical mattress fashion. Distally, where the wound still tunneled significantly, I did place a wound VAC in the wound, measuring 5 cm in length, 4 cm in width, and 4 cm in depth. This held good suction. The patient was then awakened from anesthesia and transferred to the recovery room in stable condition. There were no complications. All needle and sponge counts were correct at the end of the case. ATTESTATION: I attest I was present and scrubbed and performed the critical portions of the procedure myself. POSTOPERATIVE PLAN: She will be readmitted to the hospitalist service and continue on antibiotics as guided by the infectious disease service. We will plan on a return to the operating room on Friday for a repeat I&D and further wound closure versus VAC.
[2019-09-02] MEDS: Morphine INJ* 4 MG/ML 1 ML SYRINGE (NEW SYRINGE VERSION) IV PRN (17:27)
[2019-09-02] MEDS: Mometasone 220 MCG MDI INH SCH (19:12)
[2019-09-02 19:30] LABS: Urine Appearance Clear; Urine Bilirubin Negative (Negative); Urine Blood Negative (Negative); Urine Color Straw; Urine Glucose Negative (Negative); Urine Ketones Negative (Negative); Urine Nitrite Negative (Negative); Urine Protein Negative (Negative); Urine Specific Gravity 1.008 (1.010-1.030); Urine Urobilinogen Negative (Negative)
[2019-09-02] MEDS: Fluticasone NASAL SPRAY 50MCG* 16 gm SPRAY BTL BOTH NARES SCH (21:43)
[2019-09-02] MEDS: Primidone 50 mg TAB (*) PO SCH (21:44)
[2019-09-02] MEDS: Pramipexole TAB* 0.5 MG PO SCH (21:46)
[2019-09-02] MEDS: Venlafaxine EXT RELEASE CAP* 37.5 MG PO SCH (21:47)
[2019-09-02] MEDS: Melatonin 3 MG TAB PO SCH (21:54)
[2019-09-03] MEDS: Lactated Ringers 1000 ML Bag* 1,000 ML IV SCH (00:40)
[2019-09-03] MEDS: HYDROcodone/ACETAMIN 5-325 MG* 1 TAB PO PRN ×2 (03:05→20:15)
[2019-09-03] MEDS: Levothyroxine TAB* 175 MCG TAB PO SCH (06:10)
--- NOTE | 2019-09-03 08:12 | PN ---
Subjective Date of Service: 09/03/19 Interval History: Pt c/o post op pain yesterday, now better. Family History: Findings - Both parents had CAD. Social History: Findings - No alcohol or tobacco abuse. Lives with her who is her SDM. Past Medical History: Findings - VALENTIN, restless legs, HTN, asthma, GERD, hypothyroid, CKD, angina, PAF, CABG, arthroscopy, appy, choly, BL hip surgery, cataract surgery BL, 5 back surgeries, breast reduction Objective Active Medications: Hydrocodone Bitart/Acetaminophen ([place] 5-325 Tab*) 2 tab PO Q4H PRN PRN Reason: Pain - severe pain Last Admin: 09/03/19 03:05 Dose: 2 tab Albuterol (Ventolin Hfa Inhaler*) 2 puff INH Q6HR PRN PRN Reason: SHORTNESS OF BREATH Amiodarone HCl (Cordarone Tab*) 100 mg PO DAILY [facility] Last Admin: 09/02/19 10:07 Dose: 100 mg Amlodipine Besylate (Norvasc Tab*) 10 mg PO DAILY [facility] Last Admin: 09/02/19 10:06 Dose: 10 mg Cetirizine HCl (Zyrtec*) 10 mg PO DAILY [facility] Last Admin: 09/02/19 10:06 Dose: 10 mg Cholecalciferol (Vitamin D Tab*) 2,000 units PO DAILY [facility] Last Admin: 09/02/19 10:06 Dose: 2,000 units Docusate Sodium (Colace Cap*) 200 mg PO BID [facility] Last Admin: 09/02/19 21:48 Dose: 200 mg Ezetimibe (Zetia Tab*) 10 mg PO DAILY [facility] Last Admin: 09/02/19 10:07 Dose: 10 mg Enoxaparin Sodium (Lovenox(*)) 40 mg SUBCUT Q24H [facility] Fluticasone Propionate (Flonase Nasal [place] 50mcg*) 1 spray BOTH NARES BEDTIME [facility] Last Admin: 09/02/19 21:43 Dose: 1 spray Heparin Sodium (Porcine) (Heparin Flush Picc/Ml/Cvc(*)) 1 ml FLUSH 0600,1800 [facility]; Protocol Last Admin: 09/03/19 06:11 Dose: 1 ml Daptomycin 500 mg/ Sodium (Chloride) 60 mls @ 100 mls/hr IVPB Q48H [facility] Last Admin: 02/12/20 10:25 Dose: 100 mls/hr Lactated Ringer's (Lactated Ringers 1000 Ml Bag*) 1,000 mls @ 100 mls/hr IV PER RATE [facility] Last Admin: 09/03/19 00:40 Dose: 100 mls/hr Levothyroxine Sodium (Synthroid Tab*) 175 mcg PO DAILY@0600 [facility] Last Admin: 09/03/19 06:10 Dose: 175 mcg Melatonin (Melatonin) 9 mg PO BEDTIME [facility] Last Admin: 09/02/19 21:54 Dose: 9 mg Metoprolol Succinate (Toprol Xl Tab*) 25 mg PO BID [facility] Last Admin: 09/02/19 21:44 Dose: 25 mg Mometasone Furoate (Asmanex 220 Mcg Mdi *) 1 puff INH QPM [facility] Last Admin: 09/02/19 19:12 Dose: 1 puff Montelukast Sodium (Singulair Tab*) 10 mg PO DAILY [facility] Last Admin: 09/02/19 10:07 Dose: 10 mg Morphine Sulfate (Morphine Inj (Syringe)*) 2 mg IV Q2H PRN PRN Reason: PAIN - SEVERE Last Admin: 09/02/19 17:27 Dose: 2 mg Multi-Ingredient Liniment/Rub (Rafael Pinto*) 1 applic TOPICAL DAILY PRN PRN Reason: PAIN - MILD Multivitamins/Minerals (Theragran/Minerals Tab*) 1 tab PO DAILY [facility] Last Admin: 09/02/19 10:07 Dose: 1 tab Pantoprazole Sodium (Protonix Tab*) 40 mg PO BID [facility] Last Admin: 09/02/19 21:54 Dose: 40 mg Polyethylene Glycol/Electrolytes (Miralax (17 Gm Dose Joel)) 17 gm PO DAILY PRN PRN Reason: CONSTIPATION Last Admin: 08/29/19 08:29 Dose: 17 gm Pramipexole Dihydrochloride (Mirapex Tab*) 2 mg PO BEDTIME [facility] Last Admin: 09/02/19 21:46 Dose: 2 mg Primidone (Mysoline 250 Mg Tab (*)) 150 mg PO BEDTIME [facility] Last Admin: 09/02/19 21:44 Dose: 100 mg Senna (Senokot 8.6 Mg Tab*) 2 tab PO BID [facility] Last Admin: 09/02/19 21:48 Dose: 2 tab Throat Lozenges (Chloraseptic Juliane*) 1 juliane PO Q6H PRN PRN Reason: SORE THROAT Last Admin: 08/28/19 15:59 Dose: 1 juliane Torsemide (Demadex*) 20 mg PO DAILY [facility] Last Admin: 09/02/19 10:07 Dose: 20 mg Venlafaxine HCl (Effexor Xr Cap*) 37.5 mg PO BEDTIME [facility] Last Admin: 09/02/19 21:47 Dose: 37.5 mg Vital Signs - 8 hr 09/03/19 09/03/19 09/03/19 03:05 03:35 06:21 Temperature 97.5 F Pulse Rate 59 Respiratory 16 19 16 Rate Blood Pressure 152/61 (mmHg) O2 Sat by Pulse 96 Oximetry 09/03/19 07:14 Temperature 98.0 F Pulse Rate 58 Respiratory 18 Rate Blood Pressure 159/58 (mmHg) O2 Sat by Pulse 94 Oximetry Oxygen Devices in Use Now: None Appearance: 78 yo F in nAD, aAOx3 Eyes: No Scleral Icterus, PERRLA Ears/Nose/Mouth/Throat: NL Teeth, Lips, Gums, Mucous Membranes Moist Neck: NL Appearance and Movements; NL JVP, Trachea Midline Respiratory: Symmetrical Chest Expansion and Respiratory Effort, Clear to Auscultation Cardiovascular: NL Sounds; No Murmurs; No JVD, - - irregular Abdominal: NL Sounds; No Tenderness; No Distention Lymphatic: No Cervical Adenopathy Extremities: No Clubbing, Cyanosis, - - +1 pitting b/l ankle edema , R medial knee with wound vac in place Neurological: Alert and Oriented x 3, NL Muscle Strength and Tone Result Diagrams: 09/02/19 06:25 09/02/19 06:25 Additional Lab and Data: Laboratory Results - last 24 hr 08/27/19 08/28/19 08/29/19 06:08 16:25 04:21 WBC 4.4 RBC 2.38 L Hgb 7.9 L Hct 23 L MCV 97 MCH 33 H MCHC 34 RDW 13 Plt Count 195 MPV 7.8 Neut % (Auto) 45.1 Lymph % (Auto) 38.8 [place] % (Auto) 9.9 Eos % (Auto) 5.7 Baso % (Auto) 0.5 Absolute Neuts (auto) 2.0 Absolute Lymphs (auto) 1.7 Absolute Monos (auto) 0.4 Absolute Eos (auto) 0.2 Absolute Basos (auto) 0.0 Absolute Nucleated RBC 0.0 Nucleated RBC % 0.0 Sodium 133 L Potassium 4.8 Chloride 104 Carbon Dioxide 25 Anion Gap 4 BUN 62 H Creatinine 2.08 H Est GFR ( Amer) 27.8 Est GFR (Non-Af Amer) 23.0 BUN/Creatinine Ratio 29.8 H Glucose 134 H Uric Acid 10.5 H Calcium 8.0 L C-Reactive Protein 30.18 H Ur Creatinine Concen 34.95 Ur Urea Nitrogen Conc 299 08/29/19 04:21 WBC RBC Hgb Hct MCV MCH MCHC RDW Plt Count MPV Neut % (Auto) Lymph % (Auto) [place] % (Auto) Eos % (Auto) Baso % (Auto) Absolute Neuts (auto) Absolute Lymphs (auto) Absolute Monos (auto) Absolute Eos (auto) Absolute Basos (auto) Absolute Nucleated RBC Nucleated RBC % Sodium 134 L Potassium 4.5 Chloride 102 Carbon Dioxide 29 Anion Gap 3 BUN 61 H Creatinine 1.89 H Est GFR ( Amer) 31.0 Est GFR (Non-Af Amer) 25.7 BUN/Creatinine Ratio 32.3 H Glucose 142 H Uric Acid Calcium 8.1 L C-Reactive Protein Ur Creatinine Concen Ur Urea Nitrogen Conc Microbiology and Other Data: Microbiology 08/25/19 16:30 Wound Anaerobic Culture - Final 08/25/19 16:30 Knee Right Skin and Soft Tissue MRSA/MSSA (PCR - Final Mrsa Negative S.aureus Negative 08/25/19 16:30 Knee Right Gram Stain - Final 08/25/19 16:30 Knee Right Wound Culture - Final Vre Enterococcus Faecium 08/24/19 15:51 Blood Venous Aerobic Blood Culture - Preliminary No Growth Day 4 08/24/19 15:51 Blood Venous Anaerobic Blood Culture - Preliminary No Growth Day 4 08/24/19 15:52 Blood Venous Aerobic Blood Culture - Preliminary No Growth Day 4 08/24/19 15:52 Blood Venous Anaerobic Blood Culture - Preliminary No Growth Day 4 08/24/19 16:30 Knee Right Skin and Soft Tissue MRSA/MSSA (PCR - Final Mrsa Negative S.aureus Negative 08/24/19 16:30 Knee Right Gram Stain - Final 08/24/19 16:30 Knee Right Wound Culture - Final Enterococcus Faecium Normal Dede Assess/Plan/Problems-Billing Ms Martin is a 78 year old female PMH of CAD s/p CABG, CKD, HTN, VALENTIN([place] PM), BMI 43, pAfib (on amio, no a/c 2/2 gib), myeloproliferative disorder, gout, who had recent right medial knee washout's (culture negative at that time) with worsening symptoms on outpatient doxycyline. Found to have VRE on recent culture. - Patient Problems (1) Abscess of knee, right Comment: Initial I&D by Ortho on 08/09/2019 with drainage of clear fluid, no growth on culture. Pt returned with drainage from knee while on outpatient doxycyline and now s/p I&D 08/25. Wound vac applied 08/28 with repeat washout; repeat washout again 08/30 with wound vac placement and repeat washout 09/02, vac reapplied and s/p partial wound closure. Plan for OR back on Wednesday 09/06 Continue daptomycin per ID. Will need a prolonged course of therapy. (2) Asterixis Comment: Resolved. Likely due to serotonin syndrome related to venlafaxine and linezolid combination. (3) Chronic diastolic (congestive) heart failure Comment: Pt is appearing relatively euvolemic with mild LE edema. Continue home torsemide dose. (4) Chronic pain Comment: Continue prn norco. (5) Atrial fibrillation Comment: Pt is rate controlled. Continue amiodarone and metoprolol. She is not on anticoagulation due to h/o PUD. (6) CAD (coronary artery disease) Comment: Continue metoprolol, amlodipine, Zetia. Home plavix has been held since admission given her surgical procedures. She underwent CABG in 08/2018. (7) CKD (chronic kidney disease), stage III Comment: Creatinine at baseline (8) Anemia Comment: Ferritin 384 in 04/08. - Hgb now stable, likely related to CKD and multiple surgical procedures. -no symptoms or signs of bleeding (9) DVT prophylaxis Comment: lovenox Status and Disposition: inpatient .
[2019-09-03] MEDS: Docusate CAP* 100 MG PO SCH ×2 (08:58→20:18)
[2019-09-03] MEDS: Torsemide TAB* 20 MG PO SCH (08:59)
[2019-09-03] MEDS: Cholecalciferol TAB* 1000 UNITS PO SCH (08:59)
[2019-09-03] MEDS: Montelukast Sodium TAB* 10 MG PO SCH (08:59)
[2019-09-03] MEDS: Ezetimibe TAB* 10 MG PO SCH (08:59)
[2019-09-03] MEDS: Amiodarone TAB* 200 MG PO SCH (08:59)
[2019-09-03] MEDS: Metoprolol Succinate XL TAB* 25 MG PO SCH ×2 (09:00→20:19)
[2019-09-03] MEDS: Senna TAB 8.6 mg* TAB PO SCH ×2 (09:00→20:17)
[2019-09-03] MEDS: Pantoprazole TAB * 40 MG TAB PO SCH ×2 (09:00→20:20)
[2019-09-03] MEDS: amLODIPine TAB* 5 MG PO SCH (09:00)
[2019-09-03] MEDS: Multivitamins/Minerals TAB PO SCH (09:00)
[2019-09-03] MEDS: Enoxaparin(*) 40 MG/0.4 ML SYR SUBCUT SCH (09:02)
[2019-09-03] MEDS: Cetirizine* 10 MG TAB PO SCH (09:03)
--- NOTE | 2019-09-03 09:38 | PN ---
Progress Note - Progress Note Date of Service: 09/03/19 SOAP: Subjective: [[]Pt seen at bedside. She is comfortable without complaints. Denies CP, SOB, dizziness, nausea. Objective: []Gen: NAD, nontoxic appearing RLE: wound vac in place with good suction, no surrounding erythema, dressing c/d /i. able to DF/PF, 2+ DP pulse, intact sensation distally Calves supple and nontender Vital Signs Temp 98.0 F 09/03/19 07:14 Pulse 58 09/03/19 07:14 Resp 18 09/03/19 08:00 BP 159/58 09/03/19 07:14 Pulse Ox 94 09/03/19 07:14 Intake & Output 09/02/19 09/03/19 09/03/19 18:59 06:59 18:59 Intake Total 963 1854 480 Balance 963 1854 480 Intake: IV Fluids 963 1854 Lactated ringers 463 1854 lr 500 Oral 0 0 480 Other: Estimated Void Large # Voids 1 Assessment: [S/P repeat: 1. Right medial knee irrigation and debridement 2. Complex secondary closure of proximal half of right medial knee wound. 3. Placement of a wound VAC] Plan: [1) continue PT/OT 2) Continue IV Abx- dapto 3) OR Mon with Dr. Umana for repeat I&D with wound vac change. Patient aware and agreeable ]]
[2019-09-03] MEDS: DAPTOmycin SDV(*) 500 MG in NS 0.9% 50 ML* 50 ML IVPB SCH (10:08)
--- NOTE | 2019-09-03 10:35 | PN ---
Progress Note - Progress Note Date of Service: 09/03/19 SOAP: Subjective: CC: Right leg infection HPI: Ms. Martin is a 78 yo female with PMH significant for CKD3, VALENTIN, lymphedema, asthma, RLS, HTN, anemia, myeloproliferative disorder, heart failure , A fib, essential tremor, fibromyalgia, GERD, hypothyroidism, headache, and CAD ; s/p excision of right medial leg cyst with recurrence of drainage and erythema while on doxycycline. Denies fever, chills, nausea, vomiting, or diarrhea. Reports soft stools, and right leg pain. She is frustrated and anxious for discharge. Objective: Vital Signs 09/03/19 09/03/19 07:14 08:00 Temperature 98.0 F Pulse Rate 58 Respiratory 18 18 Rate Blood Pressure 159/58 (mmHg) O2 Sat by Pulse 94 Oximetry Physical Exam: General: NAD, sitting up in a chair Neurological: Alert and Oriented HEENT: Moist MM Cardiovascular: Heart rate regular Respiratory: Lung sound clear Abdomen: Bowel sounds present; ABD soft, non tender and non distended MSK: Able to move bilateral LEs Skin: No rash. Wound vac to right medial leg in place, no surrounding erythema Laboratory Last Values WBC 4.2 10^3/uL (3.5-10.8) 09/02/19 06:25 RBC 2.52 10^6 /uL (3.70-4.87) L 09/02/19 06:25 Hgb 8.2 g/dL (12.0-16.0) L 09/02/19 06:25 Hct 24 % (35-47) L 09/02/19 06:25 MCV 97 fL (80-97) 09/02/19 06:25 MCH 33 pg (27-31) H 09/02/19 06:25 MCHC 34 g/dL (31-36) 09/02/19 06:25 RDW 13 % (10-15) 09/02/19 06:25 Plt Count 190 10^3/uL (150-450) 09/02/19 06:25 MPV 7.1 fL (7.4-10.4) L 09/02/19 06:25 Neut % (Auto) 46.3 % 09/02/19 06:25 Lymph % (Auto) 39.5 % 09/02/19 06:25 [place] % (Auto) 8.6 % 09/02/19 06:25 Eos % (Auto) 5.0 % 09/02/19 06:25 Baso % (Auto) 0.6 % 09/02/19 06:25 Absolute Neuts (auto) 1.9 10^3/ul (1.5-7.7) 09/02/19 06:25 Absolute Lymphs (auto) 1.6 10^3/ul (1.0-4.8) 09/02/19 06:25 Absolute Monos (auto) 0.4 10^3/ul (0-0.8) 09/02/19 06:25 Absolute Eos (auto) 0.2 10^3/ul (0-0.6) 09/02/19 06:25 Absolute Basos (auto) 0.0 10^3/ul (0-0.2) 09/02/19 06:25 Absolute Nucleated RBC 0.0 10^3/ul 09/02/19 06:25 Nucleated RBC % 0.0 09/02/19 06:25 INR (Anticoag Therapy) 1.01 (0.82-1.09) 09/02/19 06:25 Sodium 138 mmol/L (135-145) 09/02/19 06:25 Potassium 4.9 mmol/L (3.5-5.0) 09/02/19 06:25 Chloride 107 mmol/L (101-111) 09/02/19 06:25 Carbon Dioxide 27 mmol/L (22-32) 09/02/19 06:25 Anion Gap 4 mmol/L (2-11) 09/02/19 06:25 BUN 52 mg/dL (6-24) H 09/02/19 06:25 Creatinine 1.52 mg/dL (0.51-0.95) H 09/02/19 06:25 Est GFR ( Amer) 39.9 (>60) 09/02/19 06:25 Est GFR (Non-Af Amer) 33.0 (>60) 09/02/19 06:25 BUN/Creatinine Ratio 34.2 (8-20) H 09/02/19 06:25 Glucose 90 mg/dL (70-100) 09/02/19 06:25 POC Glucose (mg/dL) 103 mg/dL (70-100) H 09/02/19 07:24 Uric Acid 10.5 mg/dL (2.3-6.6) H 08/27/19 06:08 Calcium 8.3 mg/dL (8.6-10.3) L 09/02/19 06:25 Total Bilirubin 0.20 mg/dL (0.2-1.0) 08/29/19 04:21 Direct Bilirubin 0.00 mg/dL (0.03-0.18) L 08/29/19 04:21 Indirect Bilirubin Not Reportable 08/29/19 04:21 AST 12 U/L (13-39) L 08/29/19 04:21 ALT 6 U/L (7-52) L 08/29/19 04:21 Alkaline Phosphatase 78 U/L (34-104) 08/29/19 04:21 Ammonia 45 mcmol/L (16-53) 08/29/19 09:33 C-Reactive Protein 13.43 mg/L (<8.01) H 08/30/19 06:53 Total Protein 5.1 g/dL (6.4-8.9) L 08/29/19 04:21 Albumin 2.6 g/dL (3.2-5.2) L 08/29/19 04:21 Globulin 2.5 g/dL (2-4) 08/29/19 04:21 Albumin/Globulin Ratio 1.0 (1-3) 08/29/19 04:21 Urine Color Straw 09/02/19 18:30 Urine Appearance Clear 09/02/19 18:30 Urine pH 5.0 (5-9) 09/02/19 18:30 Ur Specific [place] 1.008 (1.010-1.030) L 09/02/19 18:30 Urine Protein Negative (Negative) 09/02/19 18:30 Urine Ketones Negative (Negative) 09/02/19 18:30 Urine Blood Negative (Negative) 09/02/19 18:30 Urine Nitrate Negative (Negative) 09/02/19 18:30 Urine Bilirubin Negative (Negative) 09/02/19 18:30 Urine Urobilinogen Negative (Negative) 09/02/19 18:30 Ur Leukocyte Esterase Negative (Negative) 09/02/19 18:30 Ur Creatinine Concen 34.95 mg/dL 08/28/19 16:25 Ur Urea Nitrogen Conc 299 mg/dL 08/28/19 16:25 Urine Glucose Negative (Negative) 09/02/19 18:30 Microbiology 08/24/19 15:52 Aerobic Blood Culture - Final Blood Venous No Growth Day 5 Anaerobic Blood Culture - Final No Growth Day 5 08/24/19 15:51 Aerobic Blood Culture - Final Blood Venous No Growth Day 5 Anaerobic Blood Culture - Final No Growth Day 5 08/25/19 16:30 Anaerobic Culture - Final Wound 08/25/19 16:30 Skin and Soft Tissue MRSA/MSSA (PCR - Final Knee Right Mrsa Negative S.aureus Negative Gram Stain - Final Wound Culture - Final Vre Enterococcus Faecium 08/24/19 16:30 Skin and Soft Tissue MRSA/MSSA (PCR - Final Knee Right Mrsa Negative S.aureus Negative Gram Stain - Final Wound Culture - Final Enterococcus Faecium Normal Dede Assessment: 1. Right leg abscess. Wound cultures with VRE. S/P multiple I+Ds and multiple wound vac changes in the OR. Wound was partially closed in the OR yesterday. Continues to have a wound vac in place. Plan for return to the OR Friday. Blood cultures with no growth to date. Afebrile and no leukocytosis. CRP trending down. 2. CKD, stage 3. 3. Morbid obesity. BMI 43.5. Plan: Continue Daptomycin 500 mg IV Q48 hours (renal dosing), day 03/03-. She will need a prolonged course of IV ABX, PICC line has been placed. Weekly labs while on IV ABX: CBC, CMP, and CRP.
[2019-09-03] MEDS ORDERED: Buffered Lidocaine 1% SYRIN* 1 ML/SYRINGE INTRADERM ONE (12:36)
[2019-09-03] MEDS: Mometasone 220 MCG MDI INH SCH (19:20)
[2019-09-03] MEDS: Melatonin 3 MG TAB PO SCH (20:18)
[2019-09-03] MEDS: Pramipexole TAB* 0.5 MG PO SCH (20:18)
[2019-09-03] MEDS: Venlafaxine EXT RELEASE CAP* 37.5 MG PO SCH (20:20)
[2019-09-03] MEDS: Primidone 50 mg TAB (*) PO SCH (20:20)
[2019-09-03] MEDS: Fluticasone NASAL SPRAY 50MCG* 16 gm SPRAY BTL BOTH NARES SCH (20:21)
[2019-09-04] MEDS: HYDROcodone/ACETAMIN 5-325 MG* 1 TAB PO PRN ×5 (00:02→20:57)
[2019-09-04] MEDS: Levothyroxine TAB* 175 MCG TAB PO SCH (05:32)
[2019-09-04] MEDS: Enoxaparin(*) 40 MG/0.4 ML SYR SUBCUT SCH (09:33)
[2019-09-04] MEDS: Torsemide TAB* 20 MG PO SCH (09:34)
[2019-09-04] MEDS: Amiodarone TAB* 200 MG PO SCH (09:34)
[2019-09-04] MEDS: Pantoprazole TAB * 40 MG TAB PO SCH ×2 (09:34→20:59)
[2019-09-04] MEDS: Ezetimibe TAB* 10 MG PO SCH (09:34)
[2019-09-04] MEDS: Cetirizine* 10 MG TAB PO SCH (09:35)
[2019-09-04] MEDS: Cholecalciferol TAB* 1000 UNITS PO SCH (09:35)
[2019-09-04] MEDS: Montelukast Sodium TAB* 10 MG PO SCH (09:35)
[2019-09-04] MEDS: amLODIPine TAB* 5 MG PO SCH (09:36)
[2019-09-04] MEDS: Metoprolol Succinate XL TAB* 25 MG PO SCH ×2 (09:36→20:59)
[2019-09-04] MEDS: Multivitamins/Minerals TAB PO SCH (09:36)
[2019-09-04] MEDS: Docusate CAP* 100 MG PO SCH ×2 (09:36→20:59)
[2019-09-04] MEDS: Senna TAB 8.6 mg* TAB PO SCH ×2 (09:37→20:59)
--- NOTE | 2019-09-04 11:58 | PN ---
Subjective Date of Service: 09/04/19 Interval History: Feeling okay other than feeling cold. Pain is controlled. She has been getting up and walking to the bathroom and hallway. Family History: Findings - Both parents had CAD. Social History: Findings - No alcohol or tobacco abuse. Lives with her who is her SDM. Past Medical History: Findings - VALENTIN, restless legs, HTN, asthma, GERD, hypothyroid, CKD, angina, PAF, CABG, arthroscopy, appy, choly, BL hip surgery, cataract surgery BL, 5 back surgeries, breast reduction Objective Active Medications: Hydrocodone Bitart/Acetaminophen ([place] 5-325 Tab*) 2 tab PO Q4H PRN PRN Reason: Pain - severe pain Last Admin: 09/04/19 09:36 Dose: 2 tab Albuterol (Ventolin Hfa Inhaler*) 2 puff INH Q6HR PRN PRN Reason: SHORTNESS OF BREATH Amiodarone HCl (Cordarone Tab*) 100 mg PO DAILY [facility] Last Admin: 09/04/19 09:34 Dose: 100 mg Amlodipine Besylate (Norvasc Tab*) 10 mg PO DAILY [facility] Last Admin: 09/04/19 09:36 Dose: 10 mg Cetirizine HCl (Zyrtec*) 10 mg PO DAILY [facility] Last Admin: 09/04/19 09:35 Dose: 10 mg Cholecalciferol (Vitamin D Tab*) 2,000 units PO DAILY [facility] Last Admin: 09/04/19 09:35 Dose: 2,000 units Dexamethasone (Decadron Tab*) 8 mg PO ONCE ONE Stop: 09/06/19 06:01 Docusate Sodium (Colace Cap*) 200 mg PO BID [facility] Last Admin: 09/04/19 09:36 Dose: Not Given Ezetimibe (Zetia Tab*) 10 mg PO DAILY [facility] Last Admin: 09/04/19 09:34 Dose: 10 mg Enoxaparin Sodium (Lovenox(*)) 40 mg SUBCUT Q24H [facility] Last Admin: 09/04/19 09:33 Dose: 40 mg Famotidine (Pepcid Iv*) 20 mg IV ONCE ONE Stop: 09/06/19 06:01 Fluticasone Propionate (Flonase Nasal [place] 50mcg*) 1 spray BOTH NARES BEDTIME [facility] Last Admin: 09/03/19 20:21 Dose: 1 spray Heparin Sodium (Porcine) (Heparin Flush Picc/Ml/Cvc(*)) 1 ml FLUSH 0600,1800 [facility]; Protocol Last Admin: 09/04/19 11:51 Dose: Not Given Daptomycin 500 mg/ Sodium (Chloride) 60 mls @ 100 mls/hr IVPB Q48H [facility] Last Admin: 09/03/19 10:08 Dose: 100 mls/hr Lactated Ringer's (Lactated Ringers 1000 Ml Bag*) 1,000 mls @ 125 mls/hr IV PER RATE [facility] Levothyroxine Sodium (Synthroid Tab*) 175 mcg PO DAILY@0600 [facility] Last Admin: 09/04/19 05:32 Dose: 175 mcg Melatonin (Melatonin) 9 mg PO BEDTIME [facility] Last Admin: 09/03/19 20:18 Dose: 9 mg Metoprolol Succinate (Toprol Xl Tab*) 25 mg PO BID [facility] Last Admin: 09/04/19 09:36 Dose: 25 mg Mometasone Furoate (Asmanex 220 Mcg Mdi *) 1 puff INH QPM [facility] Last Admin: 09/03/19 19:20 Dose: 1 puff Montelukast Sodium (Singulair Tab*) 10 mg PO DAILY [facility] Last Admin: 09/04/19 09:35 Dose: 10 mg Morphine Sulfate (Morphine Inj (Syringe)*) 2 mg IV Q2H PRN PRN Reason: PAIN - SEVERE Last Admin: 09/02/19 17:27 Dose: 2 mg Multi-Ingredient Liniment/Rub (Rafael Pinto*) 1 applic TOPICAL DAILY PRN PRN Reason: PAIN - MILD Multivitamins/Minerals (Theragran/Minerals Tab*) 1 tab PO DAILY [facility] Last Admin: 09/04/19 09:36 Dose: 1 tab Ondansetron HCl (Zofran Odt Tab*) 4 mg PO ONCE ONE Stop: 09/06/19 06:01 Pantoprazole Sodium (Protonix Tab*) 40 mg PO BID [facility] Last Admin: 09/04/19 09:34 Dose: 40 mg Polyethylene Glycol/Electrolytes (Miralax (17 Gm Dose Joel)) 17 gm PO DAILY PRN PRN Reason: CONSTIPATION Last Admin: 08/29/19 08:29 Dose: 17 gm Pramipexole Dihydrochloride (Mirapex Tab*) 2 mg PO BEDTIME [facility] Last Admin: 09/03/19 20:18 Dose: 2 mg Primidone (Mysoline 250 Mg Tab (*)) 150 mg PO BEDTIME [facility] Last Admin: 09/03/19 20:20 Dose: 150 mg Senna (Senokot 8.6 Mg Tab*) 2 tab PO BID [facility] Last Admin: 09/04/19 09:37 Dose: 2 tab Throat Lozenges (Chloraseptic Juliane*) 1 juliane PO Q6H PRN PRN Reason: SORE THROAT Last Admin: 08/28/19 15:59 Dose: 1 juliane Torsemide (Demadex*) 20 mg PO DAILY [facility] Last Admin: 09/04/19 09:34 Dose: 20 mg Venlafaxine HCl (Effexor Xr Cap*) 37.5 mg PO BEDTIME [facility] Last Admin: 09/03/19 20:20 Dose: 37.5 mg Vital Signs - 8 hr 09/04/19 09/04/19 09/04/19 04:15 05:46 07:33 Temperature 98.7 F Pulse Rate 59 Respiratory 16 16 16 Rate Blood Pressure 165/62 (mmHg) O2 Sat by Pulse 98 Oximetry 09/04/19 09/04/19 09/04/19 08:00 09:36 11:06 Temperature 97.6 F Pulse Rate 64 Respiratory 20 20 16 Rate Blood Pressure 153/94 (mmHg) O2 Sat by Pulse 98 96 Oximetry Oxygen Devices in Use Now: None Appearance: alert, well appearing Eyes: No Scleral Icterus Ears/Nose/Mouth/Throat: NL Teeth, Lips, Gums Neck: NL Appearance and Movements; NL JVP Respiratory: Symmetrical Chest Expansion and Respiratory Effort Abdominal: NL Sounds; No Tenderness; No Distention Lymphatic: No Cervical Adenopathy Extremities: - - wound vac in medial right thigh draining dark brown thin fluid Result Diagrams: 09/02/19 06:25 09/02/19 06:25 Additional Lab and Data: Laboratory Results - last 24 hr 08/27/19 08/28/19 08/29/19 06:08 16:25 04:21 WBC 4.4 RBC 2.38 L Hgb 7.9 L Hct 23 L MCV 97 MCH 33 H MCHC 34 RDW 13 Plt Count 195 MPV 7.8 Neut % (Auto) 45.1 Lymph % (Auto) 38.8 [place] % (Auto) 9.9 Eos % (Auto) 5.7 Baso % (Auto) 0.5 Absolute Neuts (auto) 2.0 Absolute Lymphs (auto) 1.7 Absolute Monos (auto) 0.4 Absolute Eos (auto) 0.2 Absolute Basos (auto) 0.0 Absolute Nucleated RBC 0.0 Nucleated RBC % 0.0 Sodium 133 L Potassium 4.8 Chloride 104 Carbon Dioxide 25 Anion Gap 4 BUN 62 H Creatinine 2.08 H Est GFR ( Amer) 27.8 Est GFR (Non-Af Amer) 23.0 BUN/Creatinine Ratio 29.8 H Glucose 134 H Uric Acid 10.5 H Calcium 8.0 L C-Reactive Protein 30.18 H Ur Creatinine Concen 34.95 Ur Urea Nitrogen Conc 299 08/29/19 04:21 WBC RBC Hgb Hct MCV MCH MCHC RDW Plt Count MPV Neut % (Auto) Lymph % (Auto) [place] % (Auto) Eos % (Auto) Baso % (Auto) Absolute Neuts (auto) Absolute Lymphs (auto) Absolute Monos (auto) Absolute Eos (auto) Absolute Basos (auto) Absolute Nucleated RBC Nucleated RBC % Sodium 134 L Potassium 4.5 Chloride 102 Carbon Dioxide 29 Anion Gap 3 BUN 61 H Creatinine 1.89 H Est GFR ( Amer) 31.0 Est GFR (Non-Af Amer) 25.7 BUN/Creatinine Ratio 32.3 H Glucose 142 H Uric Acid Calcium 8.1 L C-Reactive Protein Ur Creatinine Concen Ur Urea Nitrogen Conc Microbiology and Other Data: Microbiology 08/25/19 16:30 Wound Anaerobic Culture - Final 08/25/19 16:30 Knee Right Skin and Soft Tissue MRSA/MSSA (PCR - Final Mrsa Negative S.aureus Negative 08/25/19 16:30 Knee Right Gram Stain - Final 08/25/19 16:30 Knee Right Wound Culture - Final Vre Enterococcus Faecium 08/24/19 15:51 Blood Venous Aerobic Blood Culture - Preliminary No Growth Day 4 08/24/19 15:51 Blood Venous Anaerobic Blood Culture - Preliminary No Growth Day 4 08/24/19 15:52 Blood Venous Aerobic Blood Culture - Preliminary No Growth Day 4 08/24/19 15:52 Blood Venous Anaerobic Blood Culture - Preliminary No Growth Day 4 08/24/19 16:30 Knee Right Skin and Soft Tissue MRSA/MSSA (PCR - Final Mrsa Negative S.aureus Negative 08/24/19 16:30 Knee Right Gram Stain - Final 08/24/19 16:30 Knee Right Wound Culture - Final Enterococcus Faecium Normal Dede Assess/Plan/Problems-Billing Ms Martin is a 78 year old female PMH of CAD s/p CABG, CKD, HTN, VALENTIN([place] PM), BMI 43, pAfib (on amio, no a/c 2/2 gib), myeloproliferative disorder, gout, who had recent right medial knee washout's (culture negative at that time) with worsening symptoms on outpatient doxycyline. Found to have VRE on recent culture. - Patient Problems (1) Abscess of knee, right Current Visit: Yes Status: Acute Code(s): L02.415 - CUTANEOUS ABSCESS OF RIGHT LOWER LIMB SNOMED Code(s): 53478230 Comment: Initial I&D by Ortho on 08/09/2019 with drainage of clear fluid, no growth on culture. Pt returned with drainage from knee while on outpatient doxycyline and now s/p I&D 08/25. Wound vac applied 08/28 with repeat washout; repeat washout again 08/30 with wound vac placement and repeat washout 09/02, vac reapplied and s/p partial wound closure. Plan for OR back on Wednesday 09/06 Continue daptomycin per ID. Will need a prolonged course of therapy. (2) Chronic diastolic (congestive) heart failure Current Visit: Yes Status: Acute Code(s): I50.32 - CHRONIC DIASTOLIC ( CONGESTIVE) HEART FAILURE SNOMED Code(s): 220864741 Comment: Pt is appearing relatively euvolemic with mild LE edema. Continue home torsemide dose. (3) Chronic pain Current Visit: Yes Status: Acute Code(s): G89.29 - OTHER CHRONIC PAIN SNOMED Code(s): 14338507 Comment: Continue prn norco. (4) Atrial fibrillation Current Visit: Yes Status: Chronic Code(s): I48.91 - UNSPECIFIED ATRIAL FIBRILLATION SNOMED Code(s): 07169663 Comment: Pt is rate controlled. Continue amiodarone and metoprolol. She is not on anticoagulation due to h/o PUD. (5) CAD (coronary artery disease) Current Visit: Yes Status: Chronic Code(s): I25.10 - ATHSCL HEART DISEASE OF [place] CORONARY ARTERY W/O ANG PCTRS SNOMED Code(s): 33815792 Comment: Continue metoprolol, amlodipine, Zetia. Home plavix has been held since admission given her surgical procedures. She underwent CABG in 08/2018. (6) CKD (chronic kidney disease), stage III Current Visit: Yes Status: Chronic Code(s): N18.3 - CHRONIC KIDNEY DISEASE, STAGE 3 (MODERATE) SNOMED Code(s): 125310240 Comment: Creatinine at baseline (7) Anemia Current Visit: No Status: Acute Priority: High Code(s): D64.9 - ANEMIA, UNSPECIFIED SNOMED Code(s): 793983440 Comment: Ferritin 384 in 04/08. -Hgb now stable, likely related to CKD and multiple surgical procedures. -no symptoms or signs of bleeding (8) Chronic hypoxemic respiratory failure Current Visit: No Status: Chronic Priority: High Comment: - Continue oxygen and medications as above Status and Disposition: inpatient .
[2019-09-04] MEDS: Mometasone 220 MCG MDI INH SCH (19:08)
[2019-09-04] MEDS: Pramipexole TAB* 0.5 MG PO SCH (20:58)
[2019-09-04] MEDS: Venlafaxine EXT RELEASE CAP* 37.5 MG PO SCH (20:58)
[2019-09-04] MEDS: Melatonin 3 MG TAB PO SCH (20:59)
[2019-09-04] MEDS: Primidone 50 mg TAB (*) PO SCH (20:59)
[2019-09-04] MEDS: Fluticasone NASAL SPRAY 50MCG* 16 gm SPRAY BTL BOTH NARES SCH (21:00)
[2019-09-05] MEDS: HYDROcodone/ACETAMIN 5-325 MG* 1 TAB PO PRN ×3 (01:48→17:17)
[2019-09-05 04:31] LABS: Urine Appearance Cloudy; Urine Bilirubin Negative (Negative); Urine Blood Negative (Negative); Urine Color Yellow; Urine Glucose Negative (Negative); Urine Ketones Negative (Negative); Urine Nitrite Positive (Negative); Urine Protein 1+(30 mg/dL) (Negative); Urine Specific Gravity 1.013 (1.010-1.030); Urine Urobilinogen Negative (Negative)
[2019-09-05 04:38] LABS: Urine Bacteria 3+ (Absent); Urine Red Blood Cell Trace(0-2/hpf) (Absent); Urine Squamous Epithelial Cell Present (Absent); Urine White Blood Cell 3+(>20/hpf) (Absent)
[2019-09-05] MEDS: Levothyroxine TAB* 175 MCG TAB PO SCH (05:37)
[2019-09-05] MEDS: Morphine INJ* 4 MG/ML 1 ML SYRINGE (NEW SYRINGE VERSION) IV PRN (05:48)
[2019-09-05] MEDS: Enoxaparin(*) 40 MG/0.4 ML SYR SUBCUT SCH (09:29)
[2019-09-05] MEDS: Senna TAB 8.6 mg* TAB PO SCH ×2 (09:30→21:44)
[2019-09-05] MEDS: Metoprolol Succinate XL TAB* 25 MG PO SCH ×2 (09:31→21:43)
[2019-09-05] MEDS: Cholecalciferol TAB* 1000 UNITS PO SCH (09:31)
[2019-09-05] MEDS: Multivitamins/Minerals TAB PO SCH (09:31)
--- NOTE | 2019-09-05 09:31 | PN ---
Subjective Date of Service: 09/05/19 Interval History: Ms. Martin felt short of breath this morning. Also noted some abdominal bloating and feet swelling. Otherwise she feels fine. Family History: Findings - Both parents had CAD. Social History: Findings - No alcohol or tobacco abuse. Lives with her who is her SDM. Past Medical History: Findings - VALENTIN, restless legs, HTN, asthma, GERD, hypothyroid, CKD, angina, PAF, CABG, arthroscopy, appy, choly, BL hip surgery, cataract surgery BL, 5 back surgeries, breast reduction Objective Active Medications: Hydrocodone Bitart/Acetaminophen ([place] 5-325 Tab*) 2 tab PO Q4H PRN PRN Reason: Pain - severe pain Last Admin: 09/05/19 01:48 Dose: 2 tab Albuterol (Ventolin Hfa Inhaler*) 2 puff INH Q6HR PRN PRN Reason: SHORTNESS OF BREATH Amiodarone HCl (Cordarone Tab*) 100 mg PO DAILY [facility] Last Admin: 09/04/19 09:34 Dose: 100 mg Amlodipine Besylate (Norvasc Tab*) 10 mg PO DAILY [facility] Last Admin: 09/04/19 09:36 Dose: 10 mg Cetirizine HCl (Zyrtec*) 10 mg PO DAILY [facility] Last Admin: 09/04/19 09:35 Dose: 10 mg Cholecalciferol (Vitamin D Tab*) 2,000 units PO DAILY [facility] Last Admin: 09/04/19 09:35 Dose: 2,000 units Dexamethasone (Decadron Tab*) 8 mg PO ONCE ONE Stop: 09/06/19 06:01 Docusate Sodium (Colace Cap*) 200 mg PO BID [facility] Last Admin: 09/04/19 20:59 Dose: 200 mg Ezetimibe (Zetia Tab*) 10 mg PO DAILY [facility] Last Admin: 09/04/19 09:34 Dose: 10 mg Enoxaparin Sodium (Lovenox(*)) 40 mg SUBCUT Q24H [facility] Last Admin: 09/04/19 09:33 Dose: 40 mg Famotidine (Pepcid Iv*) 20 mg IV ONCE ONE Stop: 09/06/19 06:01 Fluticasone Propionate (Flonase Nasal [place] 50mcg*) 1 spray BOTH NARES BEDTIME [facility] Last Admin: 09/04/19 21:00 Dose: 1 spray Heparin Sodium (Porcine) (Heparin Flush Picc/Ml/Cvc(*)) 1 ml FLUSH 0600,1800 [facility]; Protocol Last Admin: 09/05/19 05:37 Dose: 1 ml Daptomycin 500 mg/ Sodium (Chloride) 60 mls @ 100 mls/hr IVPB Q48H [facility] Last Admin: 09/03/19 10:08 Dose: 100 mls/hr Lactated Ringer's (Lactated Ringers 1000 Ml Bag*) 1,000 mls @ 125 mls/hr IV PER RATE [facility] Levothyroxine Sodium (Synthroid Tab*) 175 mcg PO DAILY@0600 [facility] Last Admin: 09/05/19 05:37 Dose: 175 mcg Melatonin (Melatonin) 9 mg PO BEDTIME [facility] Last Admin: 09/04/19 20:59 Dose: 9 mg Metoprolol Succinate (Toprol Xl Tab*) 25 mg PO BID [facility] Last Admin: 09/04/19 20:59 Dose: 25 mg Mometasone Furoate (Asmanex 220 Mcg Mdi *) 1 puff INH QPM [facility] Last Admin: 09/04/19 19:08 Dose: 1 puff Montelukast Sodium (Singulair Tab*) 10 mg PO DAILY [facility] Last Admin: 09/04/19 09:35 Dose: 10 mg Morphine Sulfate (Morphine Inj (Syringe)*) 2 mg IV Q2H PRN PRN Reason: PAIN - SEVERE Last Admin: 09/05/19 05:48 Dose: 2 mg Multi-Ingredient Liniment/Rub (Rafael Pinto*) 1 applic TOPICAL DAILY PRN PRN Reason: PAIN - MILD Multivitamins/Minerals (Theragran/Minerals Tab*) 1 tab PO DAILY [facility] Last Admin: 09/04/19 09:36 Dose: 1 tab Ondansetron HCl (Zofran Odt Tab*) 4 mg PO ONCE ONE Stop: 09/06/19 06:01 Pantoprazole Sodium (Protonix Tab*) 40 mg PO BID [facility] Last Admin: 09/04/19 20:59 Dose: 40 mg Polyethylene Glycol/Electrolytes (Miralax (17 Gm Dose Joel)) 17 gm PO DAILY PRN PRN Reason: CONSTIPATION Last Admin: 08/29/19 08:29 Dose: 17 gm Pramipexole Dihydrochloride (Mirapex Tab*) 2 mg PO BEDTIME [facility] Last Admin: 09/04/19 20:58 Dose: 2 mg Primidone (Mysoline 250 Mg Tab (*)) 150 mg PO BEDTIME [facility] Last Admin: 09/04/19 20:59 Dose: 150 mg Senna (Senokot 8.6 Mg Tab*) 2 tab PO BID [facility] Last Admin: 09/04/19 20:59 Dose: 2 tab Throat Lozenges (Chloraseptic Juliane*) 1 juliane PO Q6H PRN PRN Reason: SORE THROAT Last Admin: 08/28/19 15:59 Dose: 1 juliane Torsemide (Demadex*) 20 mg PO DAILY [facility] Last Admin: 09/04/19 09:34 Dose: 20 mg Venlafaxine HCl (Effexor Xr Cap*) 37.5 mg PO BEDTIME [facility] Last Admin: 09/04/19 20:58 Dose: 37.5 mg Vital Signs - 8 hr 09/05/19 09/05/19 09/05/19 01:48 02:57 03:48 Temperature 97.6 F Pulse Rate 72 Respiratory 16 16 16 Rate Blood Pressure 154/47 (mmHg) O2 Sat by Pulse 97 Oximetry 09/05/19 09/05/19 05:48 07:53 Temperature 98.3 F Pulse Rate 67 Respiratory 16 18 Rate Blood Pressure 168/68 (mmHg) O2 Sat by Pulse 98 Oximetry Oxygen Devices in Use Now: None Appearance: alert, well appearing, visiting with Eyes: No Scleral Icterus Ears/Nose/Mouth/Throat: NL Teeth, Lips, Gums Neck: NL Appearance and Movements; NL JVP Respiratory: Symmetrical Chest Expansion and Respiratory Effort, - Cardiovascular: NL Sounds; No Murmurs; No JVD, RRR Abdominal: - - mildly distended, nontender Lymphatic: No Cervical Adenopathy Extremities: - - 3+ edema to the shins. wound vac on medial right knee draining dark bloody thin fluid Result Diagrams: 09/02/19 06:25 09/02/19 06:25 Additional Lab and Data: Laboratory Results - last 24 hr 08/27/19 08/28/19 08/29/19 06:08 16:25 04:21 WBC 4.4 RBC 2.38 L Hgb 7.9 L Hct 23 L MCV 97 MCH 33 H MCHC 34 RDW 13 Plt Count 195 MPV 7.8 Neut % (Auto) 45.1 Lymph % (Auto) 38.8 [place] % (Auto) 9.9 Eos % (Auto) 5.7 Baso % (Auto) 0.5 Absolute Neuts (auto) 2.0 Absolute Lymphs (auto) 1.7 Absolute Monos (auto) 0.4 Absolute Eos (auto) 0.2 Absolute Basos (auto) 0.0 Absolute Nucleated RBC 0.0 Nucleated RBC % 0.0 Sodium 133 L Potassium 4.8 Chloride 104 Carbon Dioxide 25 Anion Gap 4 BUN 62 H Creatinine 2.08 H Est GFR ( Amer) 27.8 Est GFR (Non-Af Amer) 23.0 BUN/Creatinine Ratio 29.8 H Glucose 134 H Uric Acid 10.5 H Calcium 8.0 L C-Reactive Protein 30.18 H Ur Creatinine Concen 34.95 Ur Urea Nitrogen Conc 299 08/29/19 04:21 WBC RBC Hgb Hct MCV MCH MCHC RDW Plt Count MPV Neut % (Auto) Lymph % (Auto) [place] % (Auto) Eos % (Auto) Baso % (Auto) Absolute Neuts (auto) Absolute Lymphs (auto) Absolute Monos (auto) Absolute Eos (auto) Absolute Basos (auto) Absolute Nucleated RBC Nucleated RBC % Sodium 134 L Potassium 4.5 Chloride 102 Carbon Dioxide 29 Anion Gap 3 BUN 61 H Creatinine 1.89 H Est GFR ( Amer) 31.0 Est GFR (Non-Af Amer) 25.7 BUN/Creatinine Ratio 32.3 H Glucose 142 H Uric Acid Calcium 8.1 L C-Reactive Protein Ur Creatinine Concen Ur Urea Nitrogen Conc Microbiology and Other Data: Microbiology 08/25/19 16:30 Wound Anaerobic Culture - Final 08/25/19 16:30 Knee Right Skin and Soft Tissue MRSA/MSSA (PCR - Final Mrsa Negative S.aureus Negative 08/25/19 16:30 Knee Right Gram Stain - Final 08/25/19 16:30 Knee Right Wound Culture - Final Vre Enterococcus Faecium 08/24/19 15:51 Blood Venous Aerobic Blood Culture - Preliminary No Growth Day 4 08/24/19 15:51 Blood Venous Anaerobic Blood Culture - Preliminary No Growth Day 4 08/24/19 15:52 Blood Venous Aerobic Blood Culture - Preliminary No Growth Day 4 08/24/19 15:52 Blood Venous Anaerobic Blood Culture - Preliminary No Growth Day 4 08/24/19 16:30 Knee Right Skin and Soft Tissue MRSA/MSSA (PCR - Final Mrsa Negative S.aureus Negative 08/24/19 16:30 Knee Right Gram Stain - Final 08/24/19 16:30 Knee Right Wound Culture - Final Enterococcus Faecium Normal Dede Assess/Plan/Problems-Billing Ms Martin is a 78 year old female PMH of CAD s/p CABG, CKD, HTN, VALENTIN([place] PM), BMI 43, pAfib (on amio, no a/c 2/2 gib), myeloproliferative disorder, gout, who had recent right medial knee washout's (culture negative at that time) with worsening symptoms on outpatient doxycyline. Found to have VRE on recent culture. - Patient Problems (1) Abscess of knee, right Current Visit: Yes Status: Acute Code(s): L02.415 - CUTANEOUS ABSCESS OF RIGHT LOWER LIMB SNOMED Code(s): 45020647 Comment: Initial I&D by Ortho on 08/09/2019 with drainage of clear fluid, no growth on culture. Pt returned with drainage from knee while on outpatient doxycyline and now s/p I&D 08/25. Wound vac applied 08/28 with repeat washout; repeat washout again 08/30 with wound vac placement and repeat washout 09/02, vac reapplied and s/p partial wound closure. Plan for OR back on Wednesday 09/06 Continue daptomycin per ID. Will need a prolonged course of therapy. Picc in place. (2) Chronic diastolic (congestive) heart failure Current Visit: Yes Status: Acute Code(s): I50.32 - CHRONIC DIASTOLIC ( CONGESTIVE) HEART FAILURE SNOMED Code(s): 720087028 Comment: With some volume overload today. Will give extra dose of torsemide this afternoon. (3) Chronic pain Current Visit: Yes Status: Acute Code(s): G89.29 - OTHER CHRONIC PAIN SNOMED Code(s): 26023452 Comment: Continue prn norco. (4) Atrial fibrillation Current Visit: Yes Status: Chronic Code(s): I48.91 - UNSPECIFIED ATRIAL FIBRILLATION SNOMED Code(s): 89183460 Comment: Pt is rate controlled. Continue amiodarone and metoprolol. She is not on anticoagulation due to h/o PUD. (5) CAD (coronary artery disease) Current Visit: Yes Status: Chronic Code(s): I25.10 - ATHSCL HEART DISEASE OF [place] CORONARY ARTERY W/O ANG PCTRS SNOMED Code(s): 17254542 Comment: Continue metoprolol, amlodipine, Zetia. Home plavix has been held since admission given her surgical procedures. She underwent CABG in 08/2018. (6) CKD (chronic kidney disease), stage III Current Visit: Yes Status: Chronic Code(s): N18.3 - CHRONIC KIDNEY DISEASE, STAGE 3 (MODERATE) SNOMED Code(s): 142044843 Comment: Creatinine at baseline (7) Anemia Current Visit: No Status: Acute Priority: High Code(s): D64.9 - ANEMIA, UNSPECIFIED SNOMED Code(s): 925670403 Comment: Ferritin 384 in 04/08. -Hgb now stable, likely related to CKD and multiple surgical procedures. -no symptoms or signs of bleeding (8) Chronic hypoxemic respiratory failure Current Visit: No Status: Chronic Priority: High Status and Disposition: inpatient .back to OR tomorrow with Ortho
[2019-09-05] MEDS: Torsemide TAB* 20 MG PO SCH (09:33)
[2019-09-05] MEDS: Pantoprazole TAB * 40 MG TAB PO SCH ×2 (09:33→21:43)
[2019-09-05] MEDS: amLODIPine TAB* 5 MG PO SCH (09:33)
[2019-09-05] MEDS: Docusate CAP* 100 MG PO SCH ×2 (09:33→21:44)
[2019-09-05] MEDS: Cetirizine* 10 MG TAB PO SCH (09:33)
[2019-09-05] MEDS: Amiodarone TAB* 200 MG PO SCH (09:34)
[2019-09-05] MEDS: Montelukast Sodium TAB* 10 MG PO SCH (09:34)
[2019-09-05] MEDS: Ezetimibe TAB* 10 MG PO SCH (09:46)
[2019-09-05] MEDS: DAPTOmycin SDV(*) 500 MG in NS 0.9% 50 ML* 50 ML IVPB SCH (10:35)
--- NOTE | 2019-09-05 11:37 | PN ---
Progress Note - Progress Note Date of Service: 09/05/19 Note: Patient resting comfortably in bed. Denies CP, SOB or new calf pain. She denies fevers and has minimal pain in the area of the right knee cyst. Her wound vac is intact with good seal. 375cc of serosanguinous discharge in chamber. Skin is dry and intact at wound site without erythema or ecchymosis. She has AROM in all planes in the right ankle without pain. Sensation intact with 2+ DP pulse. Continue pain management and keep wound vac in place. We appreciate medicine's guidance. Plan for repeat irrigation and wound vac change in OR tomorrow with Dr. Umana.
[2019-09-05] MEDS ORDERED: Torsemide TAB* 20 MG PO ONE (16:00)
[2019-09-05] MEDS: Mometasone 220 MCG MDI INH SCH (20:14)
[2019-09-05] MEDS: Primidone 50 mg TAB (*) PO SCH (21:43)
[2019-09-05] MEDS: Melatonin 3 MG TAB PO SCH (21:43)
[2019-09-05] MEDS: Venlafaxine EXT RELEASE CAP* 37.5 MG PO SCH (21:43)
[2019-09-05] MEDS: Pramipexole TAB* 0.5 MG PO SCH (21:43)
[2019-09-05] MEDS: Fluticasone NASAL SPRAY 50MCG* 16 gm SPRAY BTL BOTH NARES SCH (21:44)
[2019-09-06] MEDS: HYDROcodone/ACETAMIN 5-325 MG* 1 TAB PO PRN ×4 (01:29→15:37)
[2019-09-06] MEDS: Levothyroxine TAB* 175 MCG TAB PO SCH (05:27)
[2019-09-06] MEDS ORDERED: PROCHLORPERAZINE INJ 5 MG/ML 2 ML VIAL IV PRN (05:50)
[2019-09-06] MEDS ORDERED: DiMENhydriNATE IV* 50 MG/ML VIAL IV PUSH PRN (05:50)
[2019-09-06] MEDS ORDERED: Naloxone* 0.4 MG/ML 1 ML VIAL IV PRN (05:50)
[2019-09-06] MEDS ORDERED: oxyCODONE/Acetamin 5/325 MG* TAB PO PRN (05:50)
[2019-09-06] MEDS ORDERED: HYDROmorphone INJ1* 1 MG/ML SYRINGE IV PRN (05:50)
[2019-09-06] MEDS ORDERED: fentaNYL* 50 MCG/ML 2 ML VIAL (100 MCG VIAL) IV PRN (05:50)
[2019-09-06] MEDS ORDERED: Ondansetron ODT TAB* 4 MG PO ONE (06:00)
[2019-09-06] MEDS ORDERED: Famotidine IV* 10 MG/ML 2 ML (20 mg) IV ONE (06:00)
[2019-09-06] MEDS ORDERED: Lactated Ringers 1000 ML Bag* 1,000 ML IV SCH (06:00)
[2019-09-06] MEDS ORDERED: Dexamethasone TAB* 4 MG PO ONE (06:00)
[2019-09-06 06:24] LABS: ABS Eosinophils 0.4 10^3/ul (0-0.6); ABS Lymphocytes 1.9 10^3/ul (1.0-4.8); ABS Monocytes 0.7 10^3/ul (0-0.8); ABS Neutrophils 5.1 10^3/ul (1.5-7.7); Eosinophil % 4.4 %; Hematocrit 25 % (35-47); Hemoglobin 8.6 g/dL (12.0-16.0); Lymphocyte % 23.4 %; Mean Corpuscular HGB Conc 35 g/dL (31-36); Mean Corpuscular Hemoglobin 33 pg (27-31); Mean Corpuscular Volume 97 fL (80-97); Mean Platelet Volume 7.4 fL (7.4-10.4); Platelet Count 175 10^3/uL (150-450); Red Blood Count 2.57 10^6 /uL (3.70-4.87); Red Cell Distribution Width 13 % (10-15); White Blood Count 8.1 10^3/uL (3.5-10.8)
[2019-09-06 06:48] LABS: Albumin/Globulin Ratio 1.1 (1-3); BUN/Creatinine Ratio 19.6 (8-20); C Reactive Protein 31.6 mg/L (<8.01); Calcium 8.5 mg/dL (8.6-10.3); EGFR African American 44.6 (>60); EGFR Non-African American 36.9 (>60); Globulin 2.8 g/dL (2-4); Potassium 4.1 mmol/L (3.5-5.0); Total Bilirubin 0.2 mg/dL (0.2-1.0); Total Protein 5.8 g/dL (6.4-8.9)
[2019-09-06] MEDS: Enoxaparin(*) 40 MG/0.4 ML SYR SUBCUT SCH (07:00)
[2019-09-06] MEDS: Metoprolol Succinate XL TAB* 25 MG PO SCH ×2 (09:02→20:57)
[2019-09-06] MEDS: Docusate CAP* 100 MG PO SCH ×2 (09:03→20:57)
[2019-09-06] MEDS: Cholecalciferol TAB* 1000 UNITS PO SCH (09:03)
[2019-09-06] MEDS: Amiodarone TAB* 200 MG PO SCH (09:04)
[2019-09-06] MEDS: Montelukast Sodium TAB* 10 MG PO SCH (09:04)
[2019-09-06] MEDS: amLODIPine TAB* 5 MG PO SCH (09:05)
[2019-09-06] MEDS: Cetirizine* 10 MG TAB PO SCH (09:05)
[2019-09-06] MEDS: Ezetimibe TAB* 10 MG PO SCH (09:06)
[2019-09-06] MEDS: Multivitamins/Minerals TAB PO SCH (09:06)
[2019-09-06] MEDS: Senna TAB 8.6 mg* TAB PO SCH ×2 (09:06→20:57)
[2019-09-06] MEDS: Pantoprazole TAB * 40 MG TAB PO SCH ×2 (09:07→20:58)
[2019-09-06] MEDS: Torsemide TAB* 20 MG PO SCH (09:07)
--- NOTE | 2019-09-06 10:04 | PN ---
Progress Note - Progress Note Date of Service: 09/06/19 SOAP: Subjective: CC: Right leg infection HPI: Ms. Maritn is a 78 yo female with PMH significant for CKD3, VALENTIN, lymphedema, asthma, RLS, HTN, anemia, myeloproliferative disorder, heart failure , A fib, essential tremor, fibromyalgia, GERD, hypothyroidism, headache, and CAD ; s/p excision of right medial leg cyst with recurrence of drainage and erythema while on doxycycline. Denies fever, chills, nausea, vomiting, or diarrhea. Reports soft stools. She is feeling fatigued. Objective: Vital Signs 09/06/19 09/06/19 09/06/19 05:27 07:15 07:50 Temperature 98 F Pulse Rate 56 Respiratory 16 16 18 Rate Blood Pressure 141/53 (mmHg) O2 Sat by Pulse 91 Oximetry Physical Exam: General: NAD, laying in bed Neurological: Alert and Oriented HEENT: Moist MM Cardiovascular: Heart rate regular Respiratory: Lung sound clear Abdomen: Bowel sounds present; ABD soft, non tender and non distended MSK: Able to move bilateral LEs Skin: No rash. Wound vac to right medial leg in place, no surrounding erythema Laboratory Results - last 24 hr 09/06/19 09/06/19 09/06/19 05:32 05:40 05:40 WBC 8.1 RBC 2.57 L Hgb 8.6 L Hct 25 L MCV 97 MCH 33 H MCHC 35 RDW 13 Plt Count 175 MPV 7.4 Neut % (Auto) 63.1 Lymph % (Auto) 23.4 [place] % (Auto) 8.9 Eos % (Auto) 4.4 Baso % (Auto) 0.2 Absolute Neuts (auto) 5.1 Absolute Lymphs (auto) 1.9 Absolute Monos (auto) 0.7 Absolute Eos (auto) 0.4 Absolute Basos (auto) 0.0 Absolute Nucleated RBC 0.0 Nucleated RBC % 0.0 Sodium 138 Potassium 4.1 Chloride 102 Carbon Dioxide 31 Anion Gap 5 BUN 27 H Creatinine 1.38 H Est GFR ( Amer) 44.6 Est GFR (Non-Af Amer) 36.9 BUN/Creatinine Ratio 19.6 Glucose 97 POC Glucose (mg/dL) 97 Calcium 8.5 L Total Bilirubin 0.20 AST 19 ALT 11 Alkaline Phosphatase 79 C-Reactive Protein 31.60 H Total Protein 5.8 L Albumin 3.0 L Globulin 2.8 Albumin/Globulin Ratio 1.1 Microbiology 08/24/19 15:52 Aerobic Blood Culture - Final Blood Venous No Growth Day 5 Anaerobic Blood Culture - Final No Growth Day 5 08/24/19 15:51 Aerobic Blood Culture - Final Blood Venous No Growth Day 5 Anaerobic Blood Culture - Final No Growth Day 5 08/25/19 16:30 Anaerobic Culture - Final Wound 08/25/19 16:30 Skin and Soft Tissue MRSA/MSSA (PCR - Final Knee Right Mrsa Negative S.aureus Negative Gram Stain - Final Wound Culture - Final Vre Enterococcus Faecium 08/24/19 16:30 Skin and Soft Tissue MRSA/MSSA (PCR - Final Knee Right Mrsa Negative S.aureus Negative Gram Stain - Final Wound Culture - Final Enterococcus Faecium Normal Dede Assessment: 1. Right leg abscess. Wound cultures with VRE. S/P multiple I+Ds and multiple wound vac changes in the OR. Wound was partially closed in the OR last week. Continues to have a wound vac in place. Plan for return to the OR later today. Blood cultures with no growth to date. Afebrile and no leukocytosis. CRP was trending down, now up today ? reactive. 2. CKD, stage 3. 3. Morbid obesity. BMI 43.5. Plan: Continue Daptomycin 500 mg IV Q48 hours (renal dosing), day 06/03-. PICC line has been placed. Weekly labs while on IV ABX: CBC, CMP, and CRP. Followup with ID outpatient 1 week after discharge.
--- NOTE | 2019-09-06 11:38 | PN ---
Subjective Date of Service: 09/06/19 Interval History: Patient denies dysuria, urinary frequency, chest pain, fever/chills, difficulty breathing, abd pain. Family History: Findings - Both parents had CAD. Social History: Findings - No alcohol or tobacco abuse. Lives with her who is her SDM. Past Medical History: Findings - VALENTIN, restless legs, HTN, asthma, GERD, hypothyroid, CKD, angina, PAF, CABG, arthroscopy, appy, choly, BL hip surgery, cataract surgery BL, 5 back surgeries, breast reduction Objective Active Medications: Hydrocodone Bitart/Acetaminophen ([place] 5-325 Tab*) 2 tab PO Q4H PRN PRN Reason: Pain - severe pain Last Admin: 09/06/19 09:08 Dose: 2 tab Albuterol (Ventolin Hfa Inhaler*) 2 puff INH Q6HR PRN PRN Reason: SHORTNESS OF BREATH Amiodarone HCl (Cordarone Tab*) 100 mg PO DAILY [facility] Last Admin: 09/06/19 09:04 Dose: 100 mg Amlodipine Besylate (Norvasc Tab*) 10 mg PO DAILY [facility] Last Admin: 09/06/19 09:05 Dose: 10 mg Cetirizine HCl (Zyrtec*) 10 mg PO DAILY [facility] Last Admin: 09/06/19 09:05 Dose: 10 mg Cholecalciferol (Vitamin D Tab*) 2,000 units PO DAILY [facility] Last Admin: 09/06/19 09:03 Dose: 2,000 units Dimenhydrinate (Dramamine Iv*) 12.5 mg IV PUSH ONCE PRN PRN Reason: NAUSEA/VOMITING Docusate Sodium (Colace Cap*) 200 mg PO BID [facility] Last Admin: 09/06/19 09:03 Dose: Not Given Ezetimibe (Zetia Tab*) 10 mg PO DAILY [facility] Last Admin: 09/06/19 09:06 Dose: 10 mg Enoxaparin Sodium (Lovenox(*)) 40 mg SUBCUT Q24H [facility] Last Admin: 09/06/19 07:00 Dose: Not Given Fentanyl Citrate (Fentanyl*) 25 mcg IV Q3M PRN PRN Reason: PAIN - MODERATE Fluticasone Propionate (Flonase Nasal [place] 50mcg*) 1 spray BOTH NARES BEDTIME [facility] Last Admin: 02/16/20 21:44 Dose: 1 spray Heparin Sodium (Porcine) (Heparin Flush Picc/Ml/Cvc(*)) 1 ml FLUSH 0600,1800 [facility]; Protocol Last Admin: 09/06/19 05:30 Dose: 1 ml Hydromorphone HCl (Dilaudid Inj1s*) 0.2 mg IV Q5M PRN PRN Reason: PAIN - SEVERE Daptomycin 500 mg/ Sodium (Chloride) 60 mls @ 100 mls/hr IVPB Q48H [facility] Last Admin: 09/05/19 10:35 Dose: 100 mls/hr Lactated Ringer's (Lactated Ringers 1000 Ml Bag*) 1,000 mls @ 125 mls/hr IV PER RATE [facility] Last Admin: 09/06/19 07:37 Dose: 125 mls/hr Levothyroxine Sodium (Synthroid Tab*) 175 mcg PO DAILY@0600 [facility] Last Admin: 09/06/19 05:27 Dose: 175 mcg Melatonin (Melatonin) 9 mg PO BEDTIME [facility] Last Admin: 09/05/19 21:43 Dose: 9 mg Metoprolol Succinate (Toprol Xl Tab*) 25 mg PO BID [facility] Last Admin: 09/06/19 09:02 Dose: 25 mg Mometasone Furoate (Asmanex 220 Mcg Mdi *) 1 puff INH QPM [facility] Last Admin: 09/05/19 20:14 Dose: 1 puff Montelukast Sodium (Singulair Tab*) 10 mg PO DAILY [facility] Last Admin: 09/06/19 09:04 Dose: 10 mg Morphine Sulfate (Morphine Inj (Syringe)*) 2 mg IV Q2H PRN PRN Reason: PAIN - SEVERE Last Admin: 09/05/19 05:48 Dose: 2 mg Multi-Ingredient Liniment/Rub (Rafael Pinto*) 1 applic TOPICAL DAILY PRN PRN Reason: PAIN - MILD Multivitamins/Minerals (Theragran/Minerals Tab*) 1 tab PO DAILY [facility] Last Admin: 09/06/19 09:06 Dose: 1 tab Naloxone HCl (Narcan*) 0.08 mg IV Q2M PRN PRN Reason: severe induced resp depression Oxycodone/Acetaminophen (Percocet 5/325 Tab*) 1 tab PO ONCE PRN PRN Reason: PAIN - MODERATE Pantoprazole Sodium (Protonix Tab*) 40 mg PO BID [facility] Last Admin: 09/06/19 09:07 Dose: 40 mg Polyethylene Glycol/Electrolytes (Miralax (17 Gm Dose Joel)) 17 gm PO DAILY PRN PRN Reason: CONSTIPATION Last Admin: 08/29/19 08:29 Dose: 17 gm Pramipexole Dihydrochloride (Mirapex Tab*) 2 mg PO BEDTIME [facility] Last Admin: 09/05/19 21:43 Dose: 2 mg Primidone (Mysoline 250 Mg Tab (*)) 150 mg PO BEDTIME [facility] Last Admin: 09/05/19 21:43 Dose: 150 mg Prochlorperazine Edisylate (Compazine Inj*) 5 mg IV ONCE PRN PRN Reason: NAUSEA/VOMITING Senna (Senokot 8.6 Mg Tab*) 2 tab PO BID [facility] Last Admin: 09/06/19 09:06 Dose: 2 tab Throat Lozenges (Chloraseptic Juliane*) 1 juliane PO Q6H PRN PRN Reason: SORE THROAT Last Admin: 08/28/19 15:59 Dose: 1 juliane Torsemide (Demadex*) 20 mg PO DAILY [facility] Last Admin: 09/06/19 09:07 Dose: 20 mg Venlafaxine HCl (Effexor Xr Cap*) 37.5 mg PO BEDTIME [facility] Last Admin: 09/05/19 21:43 Dose: 37.5 mg Vital Signs - 8 hr 09/06/19 09/06/19 09/06/19 03:40 05:18 05:27 Temperature 97.2 F Pulse Rate 53 Respiratory 18 16 Rate Blood Pressure 137/51 (mmHg) O2 Sat by Pulse 92 92 Oximetry 09/06/19 09/06/19 09/06/19 07:15 07:50 09:08 Temperature 98 F Pulse Rate 56 Respiratory 16 18 16 Rate Blood Pressure 141/53 (mmHg) O2 Sat by Pulse 91 Oximetry Oxygen Devices in Use Now: None Appearance: Obese, elderly white female, laying in bed appearing in NAD Eyes: No Scleral Icterus, - - PERRL Ears/Nose/Mouth/Throat: Mucous Membranes Moist Neck: Trachea Midline Respiratory: Symmetrical Chest Expansion and Respiratory Effort, Clear to Auscultation Cardiovascular: - - systolic murmur, irregularly irregular rhythm, rate regular Extremities: No Edema, - - trace edema to bilateral LEs Skin: No Rash or Ulcers Neurological: Alert and Oriented x 3 Result Diagrams: 09/06/19 05:40 09/06/19 05:40 Additional Lab and Data: Laboratory Results - last 24 hr 08/27/19 08/28/19 08/29/19 06:08 16:25 04:21 WBC 4.4 RBC 2.38 L Hgb 7.9 L Hct 23 L MCV 97 MCH 33 H MCHC 34 RDW 13 Plt Count 195 MPV 7.8 Neut % (Auto) 45.1 Lymph % (Auto) 38.8 [place] % (Auto) 9.9 Eos % (Auto) 5.7 Baso % (Auto) 0.5 Absolute Neuts (auto) 2.0 Absolute Lymphs (auto) 1.7 Absolute Monos (auto) 0.4 Absolute Eos (auto) 0.2 Absolute Basos (auto) 0.0 Absolute Nucleated RBC 0.0 Nucleated RBC % 0.0 Sodium 133 L Potassium 4.8 Chloride 104 Carbon Dioxide 25 Anion Gap 4 BUN 62 H Creatinine 2.08 H Est GFR ( Amer) 27.8 Est GFR (Non-Af Amer) 23.0 BUN/Creatinine Ratio 29.8 H Glucose 134 H Uric Acid 10.5 H Calcium 8.0 L C-Reactive Protein 30.18 H Ur Creatinine Concen 34.95 Ur Urea Nitrogen Conc 299 08/29/19 04:21 WBC RBC Hgb Hct MCV MCH MCHC RDW Plt Count MPV Neut % (Auto) Lymph % (Auto) [place] % (Auto) Eos % (Auto) Baso % (Auto) Absolute Neuts (auto) Absolute Lymphs (auto) Absolute Monos (auto) Absolute Eos (auto) Absolute Basos (auto) Absolute Nucleated RBC Nucleated RBC % Sodium 134 L Potassium 4.5 Chloride 102 Carbon Dioxide 29 Anion Gap 3 BUN 61 H Creatinine 1.89 H Est GFR ( Amer) 31.0 Est GFR (Non-Af Amer) 25.7 BUN/Creatinine Ratio 32.3 H Glucose 142 H Uric Acid Calcium 8.1 L C-Reactive Protein Ur Creatinine Concen Ur Urea Nitrogen Conc Microbiology and Other Data: Microbiology 08/25/19 16:30 Wound Anaerobic Culture - Final 08/25/19 16:30 Knee Right Skin and Soft Tissue MRSA/MSSA (PCR - Final Mrsa Negative S.aureus Negative 08/25/19 16:30 Knee Right Gram Stain - Final 08/25/19 16:30 Knee Right Wound Culture - Final Vre Enterococcus Faecium 08/24/19 15:51 Blood Venous Aerobic Blood Culture - Preliminary No Growth Day 4 08/24/19 15:51 Blood Venous Anaerobic Blood Culture - Preliminary No Growth Day 4 08/24/19 15:52 Blood Venous Aerobic Blood Culture - Preliminary No Growth Day 4 08/24/19 15:52 Blood Venous Anaerobic Blood Culture - Preliminary No Growth Day 4 08/24/19 16:30 Knee Right Skin and Soft Tissue MRSA/MSSA (PCR - Final Mrsa Negative S.aureus Negative 08/24/19 16:30 Knee Right Gram Stain - Final 08/24/19 16:30 Knee Right Wound Culture - Final Enterococcus Faecium Normal Dede Assess/Plan/Problems-Billing Ms Martin is a 78 year old female PMH of CAD s/p CABG, CKD, HTN, VALENTIN([place] PM), BMI 43, pAfib (on amio, no a/c 2/2 gib), myeloproliferative disorder, gout, who had recent right medial knee washout's (culture negative at that time) with worsening symptoms on outpatient doxycyline. Found to have VRE on recent culture. - Patient Problems (1) Abscess of knee, right Current Visit: Yes Status: Acute Code(s): L02.415 - CUTANEOUS ABSCESS OF RIGHT LOWER LIMB SNOMED Code(s): 02728619 Comment: Initial I&D by Ortho on 08/09/2019 with drainage of clear fluid, no growth on culture initially. Pt returned with drainage from knee while on outpatient doxycyline, found to have VRE on culture. - I&D 08/25. Wound vac applied 08/28 with repeat washout; repeat washout again 08/30 with wound vac placement and repeat washout 09/02, vac reapplied and s/p partial wound closure. -back to OR today for wound vac change, no irrigation performed -ortho's plan is to repeat vac change at bedside (09/09/19) and if patient tolerates, will be able to be discharged -Continue daptomycin per ID. Will need a prolonged course of therapy. Picc in place. (2) Bacteriuria Current Visit: Yes Status: Acute Code(s): R82.71 - BACTERIURIA SNOMED Code (s): 35872126 Comment: -UA sent for unclear reasons, urine culture demonstrating E. coli however patient is frequently incontinent of stool and I suspect this was not a clean catch -patient is not experiencing dysuria, fever/chills, urinary frequency, and does not have leukocytosis -will not treat at this time (3) Chronic diastolic (congestive) heart failure Current Visit: Yes Status: Acute Code(s): I50.32 - CHRONIC DIASTOLIC ( CONGESTIVE) HEART FAILURE SNOMED Code(s): 891004724 Comment: -continue torsemide (4) Atrial fibrillation Current Visit: Yes Status: Chronic Code(s): I48.91 - UNSPECIFIED ATRIAL FIBRILLATION SNOMED Code(s): 50152532 Comment: Pt is rate controlled. Continue amiodarone and metoprolol. She is not on anticoagulation due to h/o PUD. (5) Chronic pain Current Visit: Yes Status: Acute Code(s): G89.29 - OTHER CHRONIC PAIN SNOMED Code(s): 20444034 Comment: Continue prn norco. (6) HLD (hyperlipidemia) Current Visit: Yes Status: Chronic Code(s): E78.5 - HYPERLIPIDEMIA, UNSPECIFIED SNOMED Code(s): 68861756 Comment: Continue zetia. (7) Hypertension Current Visit: Yes Status: Chronic Code(s): I10 - ESSENTIAL (PRIMARY) HYPERTENSION SNOMED Code(s): 22839402 Comment: BP is under good control. Continue metoprolol and amlodipine. (8) CAD (coronary artery disease) Current Visit: Yes Status: Chronic Code(s): I25.10 - ATHSCL HEART DISEASE OF [place] CORONARY ARTERY W/O ANG PCTRS SNOMED Code(s): 06572839 Comment: Continue metoprolol, amlodipine, Zetia. Home plavix has been held since admission given her surgical procedures. She underwent CABG in 08/2018. (9) Asterixis Current Visit: Yes Status: Acute Code(s): R27.8 - OTHER LACK OF COORDINATION SNOMED Code(s): 81681180 Comment: Resolved. Likely due to serotonin syndrome related to venlafaxine and linezolid combination. (10) CKD (chronic kidney disease) Current Visit: No Status: Chronic Priority: High Code(s): N18.9 - CHRONIC KIDNEY DISEASE, UNSPECIFIED SNOMED Code(s): 516385654 Comment: -at baseline (11) DVT prophylaxis Current Visit: Yes Status: Acute Code(s): CWW4032 - SNOMED Code(s): 371763706 Comment: elia (12) Full code status Current Visit: Yes Status: Acute Code(s): Z78.9 - OTHER SPECIFIED HEALTH STATUS SNOMED Code(s): 877968203 Status and Disposition: inpatient plan to repeat vac change and hopeful for d/c home that day
[2019-09-06] MEDS ORDERED: Midazolam* 1 MG/ML 5 ML VIAL (5 MG) ONE (12:09)
[2019-09-06] MEDS ORDERED: KETAMINE HCL* 50 MG/ML 10 ML VIAL ONE (12:09)
[2019-09-06] MEDS ORDERED: fentaNYL* 50 MCG/ML 2 ML VIAL (100 MCG VIAL) ONE ×2 (12:09→15:27)
[2019-09-06] MEDS ORDERED: Lidocaine 2% PF * 5 ML VIAL ONE (14:43)
[2019-09-06] MEDS ORDERED: Propofol* 10 MG/ML 20 ML BTL ONE (14:43)
[2019-09-06] MEDS ORDERED: HYDROcodone/ACETAMIN 5-325 MG* 1 TAB ONE (15:36)
[2019-09-06] MEDS ORDERED: HYDROmorphone INJ1* 1 MG/ML SYRINGE ONE (15:40)
[2019-09-06] MEDS: Mometasone 220 MCG MDI INH SCH (19:39)
[2019-09-06] MEDS: Morphine INJ* 4 MG/ML 1 ML SYRINGE (NEW SYRINGE VERSION) IV PRN ×2 (20:56→23:05)
[2019-09-06] MEDS: Fluticasone NASAL SPRAY 50MCG* 16 gm SPRAY BTL BOTH NARES SCH (20:57)
[2019-09-06] MEDS: Melatonin 3 MG TAB PO SCH (20:57)
[2019-09-06] MEDS: Pramipexole TAB* 0.5 MG PO SCH (20:57)
[2019-09-06] MEDS: Venlafaxine EXT RELEASE CAP* 37.5 MG PO SCH (20:58)
--- NOTE | 2019-09-07 01:56 | OP ---
DATE OF OPERATION: 09/06/19 - ROOM #414 DATE OF : 38 SURGEON: Bryson Umana MD DIRECTOR OF INSTRUMENTAL MUSIC: Mario Alegria PA-C PRE-OP DIAGNOSIS: Large soft tissue defect, right thigh medially. POST-OP DIAGNOSIS: Large soft tissue defect, right thigh medially. OPERATIVE PROCEDURE: VAC dressing change, right medial thigh. DESCRIPTION OF PROCEDURE: The patient was taken to the operating room where the VAC dressing was removed from the medial thigh. We irrigated this thoroughly with 1 L of warm saline and then replaced the VAC dressing, some of that undermining the proximal wound which had been closed. We did seal this with appropriate [place] dressing and compression wrap. [id number]/[facility] #: [id number] MTDD
[2019-09-07] MEDS: Morphine INJ* 4 MG/ML 1 ML SYRINGE (NEW SYRINGE VERSION) IV PRN ×2 (02:31→20:03)
[2019-09-07] MEDS: Levothyroxine TAB* 175 MCG TAB PO SCH (05:56)
[2019-09-07] MEDS: HYDROcodone/ACETAMIN 5-325 MG* 1 TAB PO PRN ×3 (05:57→16:34)
[2019-09-07] MEDS: Torsemide TAB* 20 MG PO SCH (09:33)
[2019-09-07] MEDS: Cholecalciferol TAB* 1000 UNITS PO SCH (09:33)
[2019-09-07] MEDS: Ezetimibe TAB* 10 MG PO SCH (09:34)
[2019-09-07] MEDS: Montelukast Sodium TAB* 10 MG PO SCH (09:34)
[2019-09-07] MEDS: amLODIPine TAB* 5 MG PO SCH (09:35)
[2019-09-07] MEDS: Metoprolol Succinate XL TAB* 25 MG PO SCH ×2 (09:35→19:58)
[2019-09-07] MEDS: Senna TAB 8.6 mg* TAB PO SCH ×2 (09:36→19:58)
[2019-09-07] MEDS: Cetirizine* 10 MG TAB PO SCH (09:36)
[2019-09-07] MEDS: Amiodarone TAB* 200 MG PO SCH (09:37)
[2019-09-07] MEDS: Docusate CAP* 100 MG PO SCH ×2 (09:37→19:59)
[2019-09-07] MEDS: Multivitamins/Minerals TAB PO SCH (09:37)
[2019-09-07] MEDS: Pantoprazole TAB * 40 MG TAB PO SCH ×2 (09:38→19:59)
[2019-09-07] MEDS: Clopidogrel TAB* 75 MG PO SCH (09:38)
[2019-09-07] MEDS: Enoxaparin(*) 40 MG/0.4 ML SYR SUBCUT SCH (09:41)
[2019-09-07] MEDS: DAPTOmycin SDV(*) 500 MG in NS 0.9% 50 ML* 50 ML IVPB SCH (09:50)
[2019-09-07] MEDS ORDERED: Torsemide TAB* 20 MG PO ONE (09:52)
--- NOTE | 2019-09-07 09:59 | PN ---
Subjective Date of Service: 09/07/19 Interval History: Patient understands need to stay in hospital for additional wound vac change. "What's another few days," she states. She overall has no complaints today. She denies dysuria, urinary frequency, fever/chills, chest pain, abd pain, difficulty breathing. Pain control is good in her right leg. Family History: Findings - Both parents had CAD. Social History: Findings - No alcohol or tobacco abuse. Lives with her who is her SDM. Past Medical History: Findings - VALENTIN, restless legs, HTN, asthma, GERD, hypothyroid, CKD, angina, PAF, CABG, arthroscopy, appy, choly, BL hip surgery, cataract surgery BL, 5 back surgeries, breast reduction Objective Active Medications: Hydrocodone Bitart/Acetaminophen ([place] 5-325 Tab*) 2 tab PO Q4H PRN PRN Reason: PAIN - SEVERE Last Admin: 09/07/19 09:38 Dose: 2 tab Albuterol (Ventolin Hfa Inhaler*) 2 puff INH Q6HR PRN PRN Reason: SHORTNESS OF BREATH Amiodarone HCl (Cordarone Tab*) 100 mg PO DAILY [facility] Last Admin: 09/07/19 09:37 Dose: 100 mg Amlodipine Besylate (Norvasc Tab*) 10 mg PO DAILY [facility] Last Admin: 09/07/19 09:35 Dose: 10 mg Cetirizine HCl (Zyrtec*) 10 mg PO DAILY [facility] Last Admin: 09/07/19 09:36 Dose: 10 mg Cholecalciferol (Vitamin D Tab*) 2,000 units PO DAILY [facility] Last Admin: 09/07/19 09:33 Dose: 2,000 units Clopidogrel Bisulfate (Plavix Tab*) 75 mg PO DAILY [facility] Last Admin: 09/07/19 09:38 Dose: 75 mg Docusate Sodium (Colace Cap*) 200 mg PO BID [facility] Last Admin: 09/07/19 09:37 Dose: 200 mg Ezetimibe (Zetia Tab*) 10 mg PO DAILY [facility] Last Admin: 09/07/19 09:34 Dose: 10 mg Enoxaparin Sodium (Lovenox(*)) 40 mg SUBCUT Q24H [facility] Last Admin: 09/07/19 09:41 Dose: 40 mg Fluticasone Propionate (Flonase Nasal [place] 50mcg*) 1 spray BOTH NARES BEDTIME [facility] Last Admin: 09/06/19 20:57 Dose: 1 spray Heparin Sodium (Porcine) (Heparin Flush Picc/Ml/Cvc(*)) 1 ml FLUSH 0600,1800 [facility]; Protocol Last Admin: 09/07/19 05:57 Dose: 2 ml Daptomycin 500 mg/ Sodium (Chloride) 60 mls @ 100 mls/hr IVPB Q48H [facility] Last Admin: 09/07/19 09:50 Dose: 100 mls/hr Levothyroxine Sodium (Synthroid Tab*) 175 mcg PO DAILY@0600 [facility] Last Admin: 09/07/19 05:56 Dose: 175 mcg Melatonin (Melatonin) 9 mg PO BEDTIME [facility] Last Admin: 09/06/19 20:57 Dose: 9 mg Metoprolol Succinate (Toprol Xl Tab*) 25 mg PO BID [facility] Last Admin: 09/07/19 09:35 Dose: 25 mg Mometasone Furoate (Asmanex 220 Mcg Mdi *) 1 puff INH QPM [facility] Last Admin: 09/06/19 19:39 Dose: 1 puff Montelukast Sodium (Singulair Tab*) 10 mg PO DAILY [facility] Last Admin: 09/07/19 09:34 Dose: 10 mg Morphine Sulfate (Morphine Inj (Syringe)*) 2 mg IV Q2H PRN PRN Reason: PAIN - SEVERE Last Admin: 09/07/19 02:31 Dose: 2 mg Multi-Ingredient Liniment/Rub (Rafael Pinto*) 1 applic TOPICAL DAILY PRN PRN Reason: PAIN - MILD Multivitamins/Minerals (Theragran/Minerals Tab*) 1 tab PO DAILY [facility] Last Admin: 09/07/19 09:37 Dose: 1 tab Pantoprazole Sodium (Protonix Tab*) 40 mg PO BID [facility] Last Admin: 09/07/19 09:38 Dose: 40 mg Polyethylene Glycol/Electrolytes (Miralax (17 Gm Dose Joel)) 17 gm PO DAILY PRN PRN Reason: CONSTIPATION Last Admin: 08/29/19 08:29 Dose: 17 gm Pramipexole Dihydrochloride (Mirapex Tab*) 2 mg PO BEDTIME [facility] Last Admin: 09/06/19 20:57 Dose: 2 mg Senna (Senokot 8.6 Mg Tab*) 2 tab PO BID [facility] Last Admin: 09/07/19 09:36 Dose: 2 tab Throat Lozenges (Chloraseptic Juliane*) 1 juliane PO Q6H PRN PRN Reason: SORE THROAT Last Admin: 08/28/19 15:59 Dose: 1 juliane Torsemide (Demadex*) 20 mg PO DAILY [facility] Last Admin: 09/07/19 09:33 Dose: 20 mg Torsemide (Demadex*) 20 mg PO ONCE ONE Stop: 09/07/19 09:53 Venlafaxine HCl (Effexor Xr Cap*) 37.5 mg PO BEDTIME [facility] Last Admin: 09/06/19 20:58 Dose: 37.5 mg Vital Signs - 8 hr 09/07/19 09/07/19 09/07/19 02:23 02:31 03:30 Temperature 98.3 F Pulse Rate 59 Respiratory 16 20 16 Rate Blood Pressure 131/52 (mmHg) O2 Sat by Pulse 94 Oximetry 09/07/19 09/07/19 09/07/19 05:57 07:15 07:17 Temperature 97.7 F Pulse Rate 61 Respiratory 20 18 16 Rate Blood Pressure 142/63 (mmHg) O2 Sat by Pulse 91 Oximetry 09/07/19 09/07/19 09/07/19 07:30 08:00 09:38 Temperature Pulse Rate Respiratory 20 18 Rate Blood Pressure (mmHg) O2 Sat by Pulse 91 Oximetry Oxygen Devices in Use Now: None Appearance: Obese, elderly white female sitting in chair, appearing comfortable and in NAD Eyes: No Scleral Icterus, - - PERRL Ears/Nose/Mouth/Throat: Mucous Membranes Moist Respiratory: Symmetrical Chest Expansion and Respiratory Effort, Clear to Auscultation Cardiovascular: NL Sounds; No Murmurs; No JVD, RRR Abdominal: - - abd soft, nontender, nondistended Extremities: No Clubbing, Cyanosis, - - +1-2 pitting edema assisted up shins bilaterally; lloyd wrap to right knee with wound vac in place; lloyd wrap is clean/ dry/intact Skin: No Rash or Ulcers Neurological: Alert and Oriented x 3 Result Diagrams: 09/06/19 05:40 09/06/19 05:40 Additional Lab and Data: Laboratory Results - last 24 hr 08/27/19 08/28/19 08/29/19 06:08 16:25 04:21 WBC 4.4 RBC 2.38 L Hgb 7.9 L Hct 23 L MCV 97 MCH 33 H MCHC 34 RDW 13 Plt Count 195 MPV 7.8 Neut % (Auto) 45.1 Lymph % (Auto) 38.8 [place] % (Auto) 9.9 Eos % (Auto) 5.7 Baso % (Auto) 0.5 Absolute Neuts (auto) 2.0 Absolute Lymphs (auto) 1.7 Absolute Monos (auto) 0.4 Absolute Eos (auto) 0.2 Absolute Basos (auto) 0.0 Absolute Nucleated RBC 0.0 Nucleated RBC % 0.0 Sodium 133 L Potassium 4.8 Chloride 104 Carbon Dioxide 25 Anion Gap 4 BUN 62 H Creatinine 2.08 H Est GFR ( Amer) 27.8 Est GFR (Non-Af Amer) 23.0 BUN/Creatinine Ratio 29.8 H Glucose 134 H Uric Acid 10.5 H Calcium 8.0 L C-Reactive Protein 30.18 H Ur Creatinine Concen 34.95 Ur Urea Nitrogen Conc 299 08/29/19 04:21 WBC RBC Hgb Hct MCV MCH MCHC RDW Plt Count MPV Neut % (Auto) Lymph % (Auto) [place] % (Auto) Eos % (Auto) Baso % (Auto) Absolute Neuts (auto) Absolute Lymphs (auto) Absolute Monos (auto) Absolute Eos (auto) Absolute Basos (auto) Absolute Nucleated RBC Nucleated RBC % Sodium 134 L Potassium 4.5 Chloride 102 Carbon Dioxide 29 Anion Gap 3 BUN 61 H Creatinine 1.89 H Est GFR ( Amer) 31.0 Est GFR (Non-Af Amer) 25.7 BUN/Creatinine Ratio 32.3 H Glucose 142 H Uric Acid Calcium 8.1 L C-Reactive Protein Ur Creatinine Concen Ur Urea Nitrogen Conc Microbiology and Other Data: Microbiology 08/25/19 16:30 Wound Anaerobic Culture - Final 08/25/19 16:30 Knee Right Skin and Soft Tissue MRSA/MSSA (PCR - Final Mrsa Negative S.aureus Negative 08/25/19 16:30 Knee Right Gram Stain - Final 08/25/19 16:30 Knee Right Wound Culture - Final Vre Enterococcus Faecium 08/24/19 15:51 Blood Venous Aerobic Blood Culture - Preliminary No Growth Day 4 08/24/19 15:51 Blood Venous Anaerobic Blood Culture - Preliminary No Growth Day 4 08/24/19 15:52 Blood Venous Aerobic Blood Culture - Preliminary No Growth Day 4 08/24/19 15:52 Blood Venous Anaerobic Blood Culture - Preliminary No Growth Day 4 08/24/19 16:30 Knee Right Skin and Soft Tissue MRSA/MSSA (PCR - Final Mrsa Negative S.aureus Negative 08/24/19 16:30 Knee Right Gram Stain - Final 08/24/19 16:30 Knee Right Wound Culture - Final Enterococcus Faecium Normal Dede Assess/Plan/Problems-Billing Ms Martin is a 78 year old female PMH of CAD s/p CABG, CKD, HTN, VALENTIN([place] PM), BMI 43, pAfib (on amio, no a/c 2/2 gib), myeloproliferative disorder, gout, who had recent right medial knee washout's (culture negative at that time) with worsening symptoms on outpatient doxycyline. Found to have VRE on recent culture. - Patient Problems (1) Abscess of knee, right Current Visit: Yes Status: Acute Code(s): L02.415 - CUTANEOUS ABSCESS OF RIGHT LOWER LIMB SNOMED Code(s): 23412062 Comment: -Initial I&D by Ortho on 08/09/2019 with drainage of clear fluid, no growth on culture initially. Pt returned with drainage from knee while on outpatient doxycyline, found to have VRE on culture this admission. - I&D 08/25. Wound vac applied 08/28 with repeat washout; repeat washout again 08/30 with wound vac placement and repeat washout 09/02, vac reapplied and s/p partial wound closure. -additional wound vac change 09/06/19, no irrigation performed -ortho's plan is to repeat vac change at bedside (09/09/19) and if patient tolerates, will be able to be discharged -Continue daptomycin per ID. Will need a prolonged course of therapy. Picc in place. ID recommends an additional week after discharge (2) Chronic diastolic (congestive) heart failure Current Visit: Yes Status: Acute Code(s): I50.32 - CHRONIC DIASTOLIC ( CONGESTIVE) HEART FAILURE SNOMED Code(s): 259811385 Comment: -giving additional dose of torsemide this AM as LE edema is worse today -elevate legs (3) Atrial fibrillation Current Visit: Yes Status: Chronic Code(s): I48.91 - UNSPECIFIED ATRIAL FIBRILLATION SNOMED Code(s): 66618410 Comment: -rate controlled -Continue amiodarone and metoprolol -She is not on anticoagulation due to h/o PUD. (4) Bacteriuria Current Visit: Yes Status: Acute Code(s): R82.71 - BACTERIURIA SNOMED Code (s): 01912047 Comment: -UA sent for unclear reasons, urine culture demonstrating E. coli however patient is frequently incontinent of stool and I suspect this was not a clean catch -patient is not experiencing dysuria, fever/chills, urinary frequency, and does not have leukocytosis -will not treat at this time (5) Chronic pain Current Visit: Yes Status: Acute Code(s): G89.29 - OTHER CHRONIC PAIN SNOMED Code(s): 62421856 Comment: -Continue prn norco. (6) HLD (hyperlipidemia) Current Visit: Yes Status: Chronic Code(s): E78.5 - HYPERLIPIDEMIA, UNSPECIFIED SNOMED Code(s): 40034141 Comment: -Continue zetia (7) Hypertension Current Visit: Yes Status: Chronic Code(s): I10 - ESSENTIAL (PRIMARY) HYPERTENSION SNOMED Code(s): 94228164 Comment: -Continue metoprolol and amlodipine -normotensive (8) CAD (coronary artery disease) Current Visit: Yes Status: Chronic Code(s): I25.10 - ATHSCL HEART DISEASE OF [place] CORONARY ARTERY W/O ANG PCTRS SNOMED Code(s): 78735937 Comment: -Continue metoprolol, amlodipine, Zetia -restarting home plavix (9) Asterixis Current Visit: Yes Status: Acute Code(s): R27.8 - OTHER LACK OF COORDINATION SNOMED Code(s): 12821043 Comment: Resolved. Likely due to serotonin syndrome related to venlafaxine and linezolid combination. (10) CKD (chronic kidney disease) Current Visit: No Status: Chronic Priority: High Code(s): N18.9 - CHRONIC KIDNEY DISEASE, UNSPECIFIED SNOMED Code(s): 672152293 Comment: -at baseline (11) DVT prophylaxis Current Visit: Yes Status: Acute Code(s): TJY6739 - SNOMED Code(s): 408783446 Comment: elia (12) Full code status Current Visit: Yes Status: Acute Code(s): Z78.9 - OTHER SPECIFIED HEALTH STATUS SNOMED Code(s): 641077467 Status and Disposition: inpatient plan to repeat vac change and hopeful for d/c home that day, if tolerates bedside vac change
--- NOTE | 2019-09-07 10:41 | PN ---
Progress Note - Progress Note Date of Service: 09/07/19 SOAP: Subjective: CC: Right leg infection HPI: Ms. Martin is a 78 yo female with PMH significant for CKD3, VALENTIN, lymphedema, asthma, RLS, HTN, anemia, myeloproliferative disorder, heart failure , A fib, essential tremor, fibromyalgia, GERD, hypothyroidism, headache, and CAD ; s/p excision of right medial leg cyst with recurrence of drainage and erythema while on doxycycline. Denies fever, chills, nausea, vomiting, or diarrhea. She would like to go home and feels that she and her could manage home infusions. Objective: Vital Signs 09/07/19 09/07/19 09/07/19 03:30 05:57 07:15 Temperature 97.7 F Pulse Rate 61 Respiratory 16 20 18 Rate Blood Pressure 142/63 (mmHg) O2 Sat by Pulse 91 Oximetry Physical Exam: General: NAD, laying in bed Neurological: Alert and Oriented HEENT: Moist MM Cardiovascular: Heart rate irregular. Trace bilateral LE edema Respiratory: Lung sound clear Abdomen: Bowel sounds present; ABD soft, obese, non tender and non distended MSK: Able to move bilateral LEs Skin: No rash. Wound vac to right medial leg in place, no surrounding erythema Laboratory Results - last 24 hr 09/06/19 05:40 Sodium 138 Potassium 4.1 Chloride 102 Carbon Dioxide 31 Anion Gap 5 BUN 27 H Creatinine 1.38 H Est GFR ( Amer) 44.6 Est GFR (Non-Af Amer) 36.9 BUN/Creatinine Ratio 19.6 Glucose 97 Calcium 8.5 L Total Bilirubin 0.20 AST 19 ALT 11 Alkaline Phosphatase 79 C-Reactive Protein 31.60 H Total Protein 5.8 L Albumin 3.0 L Globulin 2.8 Albumin/Globulin Ratio 1.1 Microbiology 09/05/19 02:45 Urine Culture - Final Urine Escherichia Coli 08/24/19 15:52 Aerobic Blood Culture - Final Blood Venous No Growth Day 5 Anaerobic Blood Culture - Final No Growth Day 5 08/24/19 15:51 Aerobic Blood Culture - Final Blood Venous No Growth Day 5 Anaerobic Blood Culture - Final No Growth Day 5 08/25/19 16:30 Anaerobic Culture - Final Wound 08/25/19 16:30 Skin and Soft Tissue MRSA/MSSA (PCR - Final Knee Right Mrsa Negative S.aureus Negative Gram Stain - Final Wound Culture - Final Vre Enterococcus Faecium 08/24/19 16:30 Skin and Soft Tissue MRSA/MSSA (PCR - Final Knee Right Mrsa Negative S.aureus Negative Gram Stain - Final Wound Culture - Final Enterococcus Faecium Normal Dede Assessment: 1. Right leg abscess. Wound cultures with VRE. S/P multiple I+Ds and multiple wound vac changes in the OR. Continues to have a wound vac in place, plan for wound vac change on at bedside; if she is able to tolerate, then can be discharged. Blood cultures with no growth to date. Afebrile and no leukocytosis. CRP was trending down; up yesterday, ? reactive. 2. CKD, stage 3. 3. Morbid obesity. BMI 43.5. Plan: Continue Daptomycin 500 mg IV Q48 hours (renal dosing), day 07/10. Will add CK to yesterday's labs. PICC line has been placed. Weekly labs while on IV ABX: CBC , CMP, CK, and CRP. Followup with ID outpatient 1-2 weeks after discharge. Floor time 25 minutes: > 50 % spent with the patient at bedside discussing options for continued IV ABX.
--- NOTE | 2019-09-07 11:24 | PN ---
Progress Note - Progress Note Date of Service: 09/07/19 SOAP: Subjective: []Pt seen and examined OOB in chair. She is feeling well without complaints. Denies fever, chills, CP, SOB, dizziness, nausea. Objective: []Gen: NAD, nontoxic appearing RLE: wound vac in place with good suction, no surrounding erythema, dressing c/d /i. able to DF/PF, 2+ DP pulse, intact sensation distally Calves supple and nontender Assessment: s/p right medial knee I &D with wound vac changes in the OR, most recent yesterday Plan: 1) continue PT/OT 2) Continue IV Abx- dapto. Discussed with ID, plan is for dapto for another week at DC if discharged 3) Plan for bedside vac change . If well tolerated should be able to DC home thereafter with vac changes by home nursing vs wound care Vital Signs Temp 97.7 F 09/07/19 07:15 Pulse 61 09/07/19 07:15 Resp 18 09/07/19 09:38 BP 142/63 09/07/19 07:15 Pulse Ox 91 09/07/19 08:00 Intake & Output 09/06/19 09/07/19 09/07/19 18:59 06:59 18:59 Intake Total 890 480 360 Output Total 200 Balance 690 480 360 Intake: IV Fluids 650 Lactated ringers 450 lr 200 Oral 240 480 360 Output: Urine 200 Other: # Voids 4 Laboratory Last Values WBC 8.1 10^3/uL (3.5-10.8) 09/06/19 05:40 RBC 2.57 10^6 /uL (3.70-4.87) L 09/06/19 05:40 Hgb 8.6 g/dL (12.0-16.0) L 09/06/19 05:40 Hct 25 % (35-47) L 09/06/19 05:40 MCV 97 fL (80-97) 09/06/19 05:40 MCH 33 pg (27-31) H 09/06/19 05:40 MCHC 35 g/dL (31-36) 09/06/19 05:40 RDW 13 % (10-15) 09/06/19 05:40 Plt Count 175 10^3/uL (150-450) 09/06/19 05:40 MPV 7.4 fL (7.4-10.4) 09/06/19 05:40 Neut % (Auto) 63.1 % 09/06/19 05:40 Lymph % (Auto) 23.4 % 09/06/19 05:40 [place] % (Auto) 8.9 % 09/06/19 05:40 Eos % (Auto) 4.4 % 09/06/19 05:40 Baso % (Auto) 0.2 % 09/06/19 05:40 Absolute Neuts (auto) 5.1 10^3/ul (1.5-7.7) 09/06/19 05:40 Absolute Lymphs (auto) 1.9 10^3/ul (1.0-4.8) 09/06/19 05:40 Absolute Monos (auto) 0.7 10^3/ul (0-0.8) 09/06/19 05:40 Absolute Eos (auto) 0.4 10^3/ul (0-0.6) 09/06/19 05:40 Absolute Basos (auto) 0.0 10^3/ul (0-0.2) 09/06/19 05:40 Absolute Nucleated RBC 0.0 10^3/ul 09/06/19 05:40 Nucleated RBC % 0.0 09/06/19 05:40 INR (Anticoag Therapy) 1.01 (0.82-1.09) 09/02/19 06:25 Sodium 138 mmol/L (135-145) 09/06/19 05:40 Potassium 4.1 mmol/L (3.5-5.0) 09/06/19 05:40 Chloride 102 mmol/L (101-111) 09/06/19 05:40 Carbon Dioxide 31 mmol/L (22-32) 09/06/19 05:40 Anion Gap 5 mmol/L (2-11) 09/06/19 05:40 BUN 27 mg/dL (6-24) H 09/06/19 05:40 Creatinine 1.38 mg/dL (0.51-0.95) H 09/06/19 05:40 Est GFR ( Amer) 44.6 (>60) 09/06/19 05:40 Est GFR (Non-Af Amer) 36.9 (>60) 09/06/19 05:40 BUN/Creatinine Ratio 19.6 (8-20) 09/06/19 05:40 Glucose 97 mg/dL (70-100) 09/06/19 05:40 POC Glucose (mg/dL) 97 mg/dL (70-100) 09/06/19 05:32 Uric Acid 10.5 mg/dL (2.3-6.6) H 08/27/19 06:08 Calcium 8.5 mg/dL (8.6-10.3) L 09/06/19 05:40 Total Bilirubin 0.20 mg/dL (0.2-1.0) 09/06/19 05:40 Direct Bilirubin 0.00 mg/dL (0.03-0.18) L 08/29/19 04:21 Indirect Bilirubin Not Reportable 08/29/19 04:21 AST 19 U/L (13-39) 09/06/19 05:40 ALT 11 U/L (7-52) 09/06/19 05:40 Alkaline Phosphatase 79 U/L (34-104) 09/06/19 05:40 Ammonia 45 mcmol/L (16-53) 08/29/19 09:33 C-Reactive Protein 31.60 mg/L (<8.01) H 09/06/19 05:40 Total Protein 5.8 g/dL (6.4-8.9) L 09/06/19 05:40 Albumin 3.0 g/dL (3.2-5.2) L 09/06/19 05:40 Globulin 2.8 g/dL (2-4) 09/06/19 05:40 Albumin/Globulin Ratio 1.1 (1-3) 09/06/19 05:40 Urine Color Yellow 09/05/19 02:45 Urine Appearance Cloudy 09/05/19 02:45 Urine pH 7.0 (5-9) 09/05/19 02:45 Ur Specific [place] 1.013 (1.010-1.030) 09/05/19 02:45 Urine Protein 1+(30 mg/dl) (Negative) A 09/05/19 02:45 Urine Ketones Negative (Negative) 09/05/19 02:45 Urine Blood Negative (Negative) 09/05/19 02:45 Urine Nitrate Positive (Negative) A 09/05/19 02:45 Urine Bilirubin Negative (Negative) 09/05/19 02:45 Urine Urobilinogen Negative (Negative) 09/05/19 02:45 Ur Leukocyte Esterase 3+ (Negative) A 09/05/19 02:45 Urine WBC (Auto) 3+(>20/hpf) (Absent) A 09/05/19 02:45 Urine RBC (Auto) Trace(0-2/hpf) (Absent) 09/05/19 02:45 Ur Squamous Epith Cells Present (Absent) A 09/05/19 02:45 Urine Bacteria 3+ (Absent) A 09/05/19 02:45 Ur Creatinine Concen 34.95 mg/dL 08/28/19 16:25 Ur Urea Nitrogen Conc 299 mg/dL 08/28/19 16:25 Urine Glucose Negative (Negative) 09/05/19 02:45 Urine Ascorbic Acid * (Negative) A 09/05/19 02:45
[2019-09-07] MEDS: Mometasone 220 MCG MDI INH SCH (19:17)
[2019-09-07] MEDS: Venlafaxine EXT RELEASE CAP* 37.5 MG PO SCH (19:58)
[2019-09-07] MEDS: Melatonin 3 MG TAB PO SCH (19:58)
[2019-09-07] MEDS: Pramipexole TAB* 0.5 MG PO SCH (19:59)
[2019-09-07] MEDS: Fluticasone NASAL SPRAY 50MCG* 16 gm SPRAY BTL BOTH NARES SCH (19:59)
[2019-09-08] MEDS: HYDROcodone/ACETAMIN 5-325 MG* 1 TAB PO PRN ×5 (00:54→22:35)
[2019-09-08] MEDS ORDERED: cefTRIAXone(*) 1 GM in NS 0.9% 50 ML* 50 ML IVPB ONE (02:22)
--- NOTE | 2019-09-08 02:22 | PN ---
Hospitalist Progress Note Date of Service: 09/08/19 RN called that patient continues to complain of dysuria and increased frequency. Pt had complained of this two nights ago as well and UA was obtained that was nitrate positive. Ecoli >100K. Not currently being covered by daptomycin. ID is consulting. Will give 1 dose of ceftriaxone for now.
[2019-09-08] MEDS: Levothyroxine TAB* 175 MCG TAB PO SCH (06:25)
[2019-09-08] MEDS: Morphine INJ* 4 MG/ML 1 ML SYRINGE (NEW SYRINGE VERSION) IV PRN ×2 (08:40→21:41)
[2019-09-08] MEDS: Amiodarone TAB* 200 MG PO SCH (08:40)
[2019-09-08] MEDS: Enoxaparin(*) 40 MG/0.4 ML SYR SUBCUT SCH (08:40)
[2019-09-08] MEDS: Docusate CAP* 100 MG PO SCH ×2 (08:41→20:08)
[2019-09-08] MEDS: Cholecalciferol TAB* 1000 UNITS PO SCH (08:41)
[2019-09-08] MEDS: Cetirizine* 10 MG TAB PO SCH (08:41)
[2019-09-08] MEDS: Pantoprazole TAB * 40 MG TAB PO SCH ×2 (08:41→20:07)
[2019-09-08] MEDS: Montelukast Sodium TAB* 10 MG PO SCH (08:41)
[2019-09-08] MEDS: Torsemide TAB* 20 MG PO SCH (08:41)
[2019-09-08] MEDS: Clopidogrel TAB* 75 MG PO SCH (08:41)
[2019-09-08] MEDS: Multivitamins/Minerals TAB PO SCH (08:41)
[2019-09-08] MEDS: Senna TAB 8.6 mg* TAB PO SCH ×2 (08:42→20:07)
[2019-09-08] MEDS: amLODIPine TAB* 5 MG PO SCH (08:42)
[2019-09-08] MEDS: Ezetimibe TAB* 10 MG PO SCH (08:42)
[2019-09-08] MEDS: Metoprolol Succinate XL TAB* 25 MG PO SCH ×2 (08:42→20:07)
--- NOTE | 2019-09-08 10:09 | PN ---
Progress Note - Progress Note Date of Service: 09/08/19 SOAP: Subjective: []Pt seen at bedside. She feels well without CP, SOB, dizziness, nausea. No RLE pain. Objective: []Gen: NAD, nontoxic appearing RLE: wound vac in place with good suction, no surrounding erythema, dressing c/d /i. able to DF/PF, 2+ DP pulse, intact sensation distally. Vac cannister full with 500 ml serous drainage. New canister placed. Calves supple and nontender Assessment: s/p right medial knee I &D with wound vac changes in the OR, most recent yesterday Plan: 1) continue PT/OT 2) Continue IV Abx- dapto. Discussed with ID, plan is for dapto for another week at DC if discharged 3) Plan for bedside vac change morning. If well tolerated should be able to DC home thereafter with vac changes by home nursing vs wound care Vital Signs Temp 97.8 F 09/08/19 03:42 Pulse 57 09/08/19 03:42 Resp 17 09/08/19 10:03 BP 134/53 09/08/19 03:42 Pulse Ox 100 09/08/19 03:42 Intake & Output 09/07/19 09/08/19 09/08/19 18:59 06:59 18:59 Intake Total 1035 280 Output Total 0 50 Balance 1035 280 -50 Intake: IV Fluids 75 80 ABX - CEFTRIAXONE 50 all fluids 75 30 Oral 960 200 Output: Wound Vac 50 Urine 0 Other: Estimated Void Medium # Voids 2 Laboratory Last Values WBC 8.1 10^3/uL (3.5-10.8) 09/06/19 05:40 RBC 2.57 10^6 /uL (3.70-4.87) L 09/06/19 05:40 Hgb 8.6 g/dL (12.0-16.0) L 09/06/19 05:40 Hct 25 % (35-47) L 09/06/19 05:40 MCV 97 fL (80-97) 09/06/19 05:40 MCH 33 pg (27-31) H 09/06/19 05:40 MCHC 35 g/dL (31-36) 09/06/19 05:40 RDW 13 % (10-15) 09/06/19 05:40 Plt Count 175 10^3/uL (150-450) 09/06/19 05:40 MPV 7.4 fL (7.4-10.4) 09/06/19 05:40 Neut % (Auto) 63.1 % 09/06/19 05:40 Lymph % (Auto) 23.4 % 09/06/19 05:40 [place] % (Auto) 8.9 % 09/06/19 05:40 Eos % (Auto) 4.4 % 09/06/19 05:40 Baso % (Auto) 0.2 % 09/06/19 05:40 Absolute Neuts (auto) 5.1 10^3/ul (1.5-7.7) 09/06/19 05:40 Absolute Lymphs (auto) 1.9 10^3/ul (1.0-4.8) 09/06/19 05:40 Absolute Monos (auto) 0.7 10^3/ul (0-0.8) 09/06/19 05:40 Absolute Eos (auto) 0.4 10^3/ul (0-0.6) 09/06/19 05:40 Absolute Basos (auto) 0.0 10^3/ul (0-0.2) 09/06/19 05:40 Absolute Nucleated RBC 0.0 10^3/ul 09/06/19 05:40 Nucleated RBC % 0.0 09/06/19 05:40 INR (Anticoag Therapy) 1.01 (0.82-1.09) 09/02/19 06:25 Sodium 138 mmol/L (135-145) 09/06/19 05:40 Potassium 4.1 mmol/L (3.5-5.0) 09/06/19 05:40 Chloride 102 mmol/L (101-111) 09/06/19 05:40 Carbon Dioxide 31 mmol/L (22-32) 09/06/19 05:40 Anion Gap 5 mmol/L (2-11) 09/06/19 05:40 BUN 27 mg/dL (6-24) H 09/06/19 05:40 Creatinine 1.38 mg/dL (0.51-0.95) H 09/06/19 05:40 Est GFR ( Amer) 44.6 (>60) 09/06/19 05:40 Est GFR (Non-Af Amer) 36.9 (>60) 09/06/19 05:40 BUN/Creatinine Ratio 19.6 (8-20) 09/06/19 05:40 Glucose 97 mg/dL (70-100) 09/06/19 05:40 POC Glucose (mg/dL) 97 mg/dL (70-100) 09/06/19 05:32 Uric Acid 10.5 mg/dL (2.3-6.6) H 08/27/19 06:08 Calcium 8.5 mg/dL (8.6-10.3) L 09/06/19 05:40 Total Bilirubin 0.20 mg/dL (0.2-1.0) 09/06/19 05:40 Direct Bilirubin 0.00 mg/dL (0.03-0.18) L 08/29/19 04:21 Indirect Bilirubin Not Reportable 08/29/19 04:21 AST 19 U/L (13-39) 09/06/19 05:40 ALT 11 U/L (7-52) 09/06/19 05:40 Alkaline Phosphatase 79 U/L (34-104) 09/06/19 05:40 Ammonia 45 mcmol/L (16-53) 08/29/19 09:33 Total Creatine Kinase 75 U/L (10-223) 09/06/19 05:40 C-Reactive Protein 31.60 mg/L (<8.01) H 09/06/19 05:40 Total Protein 5.8 g/dL (6.4-8.9) L 09/06/19 05:40 Albumin 3.0 g/dL (3.2-5.2) L 09/06/19 05:40 Globulin 2.8 g/dL (2-4) 09/06/19 05:40 Albumin/Globulin Ratio 1.1 (1-3) 09/06/19 05:40 Urine Color Yellow 09/05/19 02:45 Urine Appearance Cloudy 09/05/19 02:45 Urine pH 7.0 (5-9) 09/05/19 02:45 Ur Specific [place] 1.013 (1.010-1.030) 09/05/19 02:45 Urine Protein 1+(30 mg/dl) (Negative) A 09/05/19 02:45 Urine Ketones Negative (Negative) 09/05/19 02:45 Urine Blood Negative (Negative) 09/05/19 02:45 Urine Nitrate Positive (Negative) A 09/05/19 02:45 Urine Bilirubin Negative (Negative) 09/05/19 02:45 Urine Urobilinogen Negative (Negative) 09/05/19 02:45 Ur Leukocyte Esterase 3+ (Negative) A 09/05/19 02:45 Urine WBC (Auto) 3+(>20/hpf) (Absent) A 09/05/19 02:45 Urine RBC (Auto) Trace(0-2/hpf) (Absent) 09/05/19 02:45 Ur Squamous Epith Cells Present (Absent) A 09/05/19 02:45 Urine Bacteria 3+ (Absent) A 09/05/19 02:45 Ur Creatinine Concen 34.95 mg/dL 08/28/19 16:25 Ur Urea Nitrogen Conc 299 mg/dL 08/28/19 16:25 Urine Glucose Negative (Negative) 09/05/19 02:45 Urine Ascorbic Acid * (Negative) A 09/05/19 02:45
--- NOTE | 2019-09-08 10:14 | PN ---
Progress Note - Progress Note Date of Service: 09/08/19 SOAP: Subjective: CC: Right leg infection HPI: Ms. Martin is a 78 yo female with PMH significant for CKD3, VALENTIN, lymphedema, asthma, RLS, HTN, anemia, myeloproliferative disorder, heart failure , A fib, essential tremor, fibromyalgia, GERD, hypothyroidism, headache, and CAD ; s/p excision of right medial leg cyst with recurrence of drainage and erythema while on doxycycline. Denies fever, chills, nausea, vomiting, or diarrhea. She would like to go home tomorrow after her wound vac change and feels that she and her could manage home infusions. Reports some itching under her PICC line DSG today. Objective: Vital Signs - 8 hr 09/08/19 09/08/19 09/08/19 02:54 03:42 08:40 Temperature 97.8 F Pulse Rate 57 Respiratory 18 16 17 Rate Blood Pressure 134/53 (mmHg) O2 Sat by Pulse 100 Oximetry Physical Exam: General: NAD, laying in bed Neurological: Alert and Oriented HEENT: Moist MM Cardiovascular: Heart rate irregular. Mild bilateral LE edema Respiratory: Lung sound clear Abdomen: Bowel sounds present; ABD soft, obese, non tender and non distended MSK: Able to move bilateral LEs Skin: No rash. Wound vac to right medial leg in place, no surrounding erythema. PICC line to the right UE, site benign Laboratory Results - last 24 hr 09/06/19 05:40 Sodium 138 Potassium 4.1 Chloride 102 Carbon Dioxide 31 Anion Gap 5 BUN 27 H Creatinine 1.38 H Est GFR ( Amer) 44.6 Est GFR (Non-Af Amer) 36.9 BUN/Creatinine Ratio 19.6 Glucose 97 Calcium 8.5 L Total Bilirubin 0.20 AST 19 ALT 11 Alkaline Phosphatase 79 Total Creatine Kinase 75 C-Reactive Protein 31.60 H Total Protein 5.8 L Albumin 3.0 L Globulin 2.8 Albumin/Globulin Ratio 1.1 Microbiology 09/05/19 02:45 Urine Culture - Final Urine Escherichia Coli 08/24/19 15:52 Aerobic Blood Culture - Final Blood Venous No Growth Day 5 Anaerobic Blood Culture - Final No Growth Day 5 08/24/19 15:51 Aerobic Blood Culture - Final Blood Venous No Growth Day 5 Anaerobic Blood Culture - Final No Growth Day 5 08/25/19 16:30 Anaerobic Culture - Final Wound 08/25/19 16:30 Skin and Soft Tissue MRSA/MSSA (PCR - Final Knee Right Mrsa Negative S.aureus Negative Gram Stain - Final Wound Culture - Final Vre Enterococcus Faecium 08/24/19 16:30 Skin and Soft Tissue MRSA/MSSA (PCR - Final Knee Right Mrsa Negative S.aureus Negative Gram Stain - Final Wound Culture - Final Enterococcus Faecium Normal Dede Assessment: 1. Right leg abscess. Wound cultures with VRE. S/P multiple I+Ds and multiple wound vac changes in the OR. Continues to have a wound vac in place, plan for wound vac change on tomorrow at bedside; if she is able to tolerate, then can be discharged home. Blood cultures with no growth to date. Afebrile and no leukocytosis. CRP was trending down; up this week, ? reactive. 2. CKD, stage 3. 3. Morbid obesity. BMI 43.5. Plan: Continue Daptomycin 500 mg IV Q48 hours (renal dosing), day . PICC line has been placed. Home infusions vs outpatient infusions at discharge. Weekly labs while on IV ABX: CBC, CMP, CK, and CRP. Followup with ID outpatient 1-2 weeks after discharge.
--- NOTE | 2019-09-08 16:10 | PN ---
Subjective Date of Service: 09/08/19 Interval History: O/N complaint of dysuria and ceftriaxone started given previous asymptomatic bacteriuria. Patient without complaints today. Hopeful for easy vac change tomorrow so she can go home. Denies chest pain, difficulty breathing, fever/chills, leg pain, abd pain. Family History: Findings - Both parents had CAD. Social History: Findings - No alcohol or tobacco abuse. Lives with her who is her SDM. Past Medical History: Findings - VALENTIN, restless legs, HTN, asthma, GERD, hypothyroid, CKD, angina, PAF, CABG, arthroscopy, appy, choly, BL hip surgery, cataract surgery BL, 5 back surgeries, breast reduction Objective Active Medications: Hydrocodone Bitart/Acetaminophen (Terry 5-325 Tab*) 2 tab PO Q4H PRN PRN Reason: PAIN - SEVERE Last Admin: 09/08/19 14:31 Dose: 2 tab Albuterol (Ventolin Hfa Inhaler*) 2 puff INH Q6HR PRN PRN Reason: SHORTNESS OF BREATH Amiodarone HCl (Cordarone Tab*) 100 mg PO DAILY [facility] Last Admin: 09/08/19 08:40 Dose: 100 mg Amlodipine Besylate (Norvasc Tab*) 10 mg PO DAILY [facility] Last Admin: 09/08/19 08:42 Dose: 10 mg Cetirizine HCl (Zyrtec*) 10 mg PO DAILY [facility] Last Admin: 09/08/19 08:41 Dose: 10 mg Cholecalciferol (Vitamin D Tab*) 2,000 units PO DAILY [facility] Last Admin: 09/08/19 08:41 Dose: 2,000 units Clopidogrel Bisulfate (Plavix Tab*) 75 mg PO DAILY [facility] Last Admin: 09/08/19 08:41 Dose: 75 mg Docusate Sodium (Colace Cap*) 200 mg PO BID [facility] Last Admin: 09/08/19 08:41 Dose: 200 mg Ezetimibe (Zetia Tab*) 10 mg PO DAILY [facility] Last Admin: 09/08/19 08:42 Dose: 10 mg Enoxaparin Sodium (Lovenox(*)) 40 mg SUBCUT Q24H [facility] Last Admin: 09/08/19 08:40 Dose: 40 mg Fluticasone Propionate (Flonase Nasal [place] 50mcg*) 1 spray BOTH NARES BEDTIME [facility] Last Admin: 09/07/19 19:59 Dose: 1 spray Heparin Sodium (Porcine) (Heparin Flush Picc/Ml/Cvc(*)) 1 ml FLUSH 0600,1800 [facility]; Protocol Last Admin: 09/08/19 04:10 Dose: 2 ml Daptomycin 500 mg/ Sodium (Chloride) 60 mls @ 100 mls/hr IVPB Q48H [facility] Last Admin: 09/07/19 09:50 Dose: 100 mls/hr Ceftriaxone Sodium 1 gm/ (Sodium Chloride) 50 mls @ 100 mls/hr IVPB Q24H [facility] Levothyroxine Sodium (Synthroid Tab*) 175 mcg PO DAILY@0600 [facility] Last Admin: 09/08/19 06:25 Dose: 175 mcg Melatonin (Melatonin) 9 mg PO BEDTIME [facility] Last Admin: 09/07/19 19:58 Dose: 9 mg Metoprolol Succinate (Toprol Xl Tab*) 25 mg PO BID [facility] Last Admin: 09/08/19 08:42 Dose: 25 mg Mometasone Furoate (Asmanex 220 Mcg Mdi *) 1 puff INH QPM [facility] Last Admin: 09/07/19 19:17 Dose: 1 puff Montelukast Sodium (Singulair Tab*) 10 mg PO DAILY [facility] Last Admin: 09/08/19 08:41 Dose: 10 mg Morphine Sulfate (Morphine Inj (Syringe)*) 2 mg IV Q2H PRN PRN Reason: PAIN - SEVERE Last Admin: 09/08/19 08:40 Dose: 2 mg Multi-Ingredient Liniment/Rub (Rafael Pinto*) 1 applic TOPICAL DAILY PRN PRN Reason: PAIN - MILD Multivitamins/Minerals (Theragran/Minerals Tab*) 1 tab PO DAILY [facility] Last Admin: 09/08/19 08:41 Dose: 1 tab Pantoprazole Sodium (Protonix Tab*) 40 mg PO BID [facility] Last Admin: 09/08/19 08:41 Dose: 40 mg Polyethylene Glycol/Electrolytes (Miralax (17 Gm Dose Joel)) 17 gm PO DAILY PRN PRN Reason: CONSTIPATION Last Admin: 08/29/19 08:29 Dose: 17 gm Pramipexole Dihydrochloride (Mirapex Tab*) 2 mg PO BEDTIME [facility] Last Admin: 09/07/19 19:59 Dose: 2 mg Senna (Senokot 8.6 Mg Tab*) 2 tab PO BID [facility] Last Admin: 09/08/19 08:42 Dose: 2 tab Throat Lozenges (Chloraseptic Juliane*) 1 juliane PO Q6H PRN PRN Reason: SORE THROAT Last Admin: 08/28/19 15:59 Dose: 1 juliane Torsemide (Demadex*) 20 mg PO DAILY [facility] Last Admin: 09/08/19 08:41 Dose: 20 mg Venlafaxine HCl (Effexor Xr Cap*) 37.5 mg PO BEDTIME [facility] Last Admin: 09/07/19 19:58 Dose: 37.5 mg Vital Signs - 8 hr 09/08/19 09/08/19 09/08/19 08:40 10:03 11:15 Temperature 97.4 F Pulse Rate 58 Respiratory 17 17 20 Rate Blood Pressure 145/53 (mmHg) O2 Sat by Pulse 100 Oximetry 09/08/19 09/08/19 12:00 14:31 Temperature Pulse Rate Respiratory 18 16 Rate Blood Pressure (mmHg) O2 Sat by Pulse Oximetry Oxygen Devices in Use Now: None Appearance: Obese, elderly white female, sitting in chair, appearing comfortable and in NAD Eyes: No Scleral Icterus, - - PERRL Ears/Nose/Mouth/Throat: Mucous Membranes Moist Neck: Trachea Midline Respiratory: Symmetrical Chest Expansion and Respiratory Effort, Clear to Auscultation Cardiovascular: NL Sounds; No Murmurs; No JVD, RRR Abdominal: - - abd soft, nontender, nondistended Extremities: No Clubbing, Cyanosis, - - +1 pitting edema to bilateral ankles; lloyd wrap around RLE and wound vac in place, lloyd wrap is clean and dry Skin: No Rash or Ulcers Neurological: Alert and Oriented x 3 Result Diagrams: 09/06/19 05:40 09/06/19 05:40 Additional Lab and Data: Laboratory Results - last 24 hr 08/27/19 08/28/19 08/29/19 06:08 16:25 04:21 WBC 4.4 RBC 2.38 L Hgb 7.9 L Hct 23 L MCV 97 MCH 33 H MCHC 34 RDW 13 Plt Count 195 MPV 7.8 Neut % (Auto) 45.1 Lymph % (Auto) 38.8 [place] % (Auto) 9.9 Eos % (Auto) 5.7 Baso % (Auto) 0.5 Absolute Neuts (auto) 2.0 Absolute Lymphs (auto) 1.7 Absolute Monos (auto) 0.4 Absolute Eos (auto) 0.2 Absolute Basos (auto) 0.0 Absolute Nucleated RBC 0.0 Nucleated RBC % 0.0 Sodium 133 L Potassium 4.8 Chloride 104 Carbon Dioxide 25 Anion Gap 4 BUN 62 H Creatinine 2.08 H Est GFR ( Amer) 27.8 Est GFR (Non-Af Amer) 23.0 BUN/Creatinine Ratio 29.8 H Glucose 134 H Uric Acid 10.5 H Calcium 8.0 L C-Reactive Protein 30.18 H Ur Creatinine Concen 34.95 Ur Urea Nitrogen Conc 299 08/29/19 04:21 WBC RBC Hgb Hct MCV MCH MCHC RDW Plt Count MPV Neut % (Auto) Lymph % (Auto) [place] % (Auto) Eos % (Auto) Baso % (Auto) Absolute Neuts (auto) Absolute Lymphs (auto) Absolute Monos (auto) Absolute Eos (auto) Absolute Basos (auto) Absolute Nucleated RBC Nucleated RBC % Sodium 134 L Potassium 4.5 Chloride 102 Carbon Dioxide 29 Anion Gap 3 BUN 61 H Creatinine 1.89 H Est GFR ( Amer) 31.0 Est GFR (Non-Af Amer) 25.7 BUN/Creatinine Ratio 32.3 H Glucose 142 H Uric Acid Calcium 8.1 L C-Reactive Protein Ur Creatinine Concen Ur Urea Nitrogen Conc Microbiology and Other Data: Microbiology 08/25/19 16:30 Wound Anaerobic Culture - Final 08/25/19 16:30 Knee Right Skin and Soft Tissue MRSA/MSSA (PCR - Final Mrsa Negative S.aureus Negative 08/25/19 16:30 Knee Right Gram Stain - Final 08/25/19 16:30 Knee Right Wound Culture - Final Vre Enterococcus Faecium 08/24/19 15:51 Blood Venous Aerobic Blood Culture - Preliminary No Growth Day 4 08/24/19 15:51 Blood Venous Anaerobic Blood Culture - Preliminary No Growth Day 4 08/24/19 15:52 Blood Venous Aerobic Blood Culture - Preliminary No Growth Day 4 08/24/19 15:52 Blood Venous Anaerobic Blood Culture - Preliminary No Growth Day 4 08/24/19 16:30 Knee Right Skin and Soft Tissue MRSA/MSSA (PCR - Final Mrsa Negative S.aureus Negative 08/24/19 16:30 Knee Right Gram Stain - Final 08/24/19 16:30 Knee Right Wound Culture - Final Enterococcus Faecium Normal Dede Assess/Plan/Problems-Billing Ms Martin is a 78 year old female PMH of CAD s/p CABG, CKD, HTN, VALENTIN(NC PM), BMI 43, pAfib (on amio, no a/c 2/2 gib), myeloproliferative disorder, gout, who had recent right medial knee washout's (culture negative at that time) with worsening symptoms on outpatient doxycyline. Found to have VRE on recent culture. - Patient Problems (1) Abscess of knee, right Current Visit: Yes Status: Acute Code(s): L02.415 - CUTANEOUS ABSCESS OF RIGHT LOWER LIMB SNOMED Code(s): 35116380 Comment: -Initial I&D by Ortho on 08/09/2019 with drainage of clear fluid, no growth on culture initially. Pt returned with drainage from knee while on outpatient doxycyline, found to have VRE on culture this admission. - I&D 08/25. Wound vac applied 08/28 with repeat washout; repeat washout again 08/30 with wound vac placement and repeat washout 09/02, vac reapplied and s/p partial wound closure. -additional wound vac change 09/06/19, no irrigation performed -ortho's plan is to repeat vac change at bedside (09/09/19) and if patient tolerates, will be able to be discharged -Continue daptomycin per ID. Will need a prolonged course of therapy. Picc in place. ID recommends an additional week after discharge (2) UTI (urinary tract infection) Current Visit: Yes Status: Acute Comment: -patient was not c/o dysuria/flank pain/low back pain for the last several days so did not treat asymptomatic bacteriuria; O/N MD called due to c/o dysuria and ceftriaxone was started -continue ceftriaxone -patient asymptomatic -urine cx pos for E. coli (3) Chronic diastolic (congestive) heart failure Current Visit: Yes Status: Acute Code(s): I50.32 - CHRONIC DIASTOLIC ( CONGESTIVE) HEART FAILURE SNOMED Code(s): 920234570 Comment: -continue torsemide -elevate legs (4) Atrial fibrillation Current Visit: Yes Status: Chronic Code(s): I48.91 - UNSPECIFIED ATRIAL FIBRILLATION SNOMED Code(s): 88783247 Comment: -rate controlled -Continue amiodarone and metoprolol -She is not on anticoagulation due to h/o PUD. (5) Chronic pain Current Visit: Yes Status: Acute Code(s): G89.29 - OTHER CHRONIC PAIN SNOMED Code(s): 97286255 Comment: -Continue prn norco. (6) HLD (hyperlipidemia) Current Visit: Yes Status: Chronic Code(s): E78.5 - HYPERLIPIDEMIA, UNSPECIFIED SNOMED Code(s): 19861198 Comment: -Continue zetia (7) Hypertension Current Visit: Yes Status: Chronic Code(s): I10 - ESSENTIAL (PRIMARY) HYPERTENSION SNOMED Code(s): 30094097 Comment: -Continue metoprolol and amlodipine -normotensive (8) CAD (coronary artery disease) Current Visit: Yes Status: Chronic Code(s): I25.10 - ATHSCL HEART DISEASE OF [place] CORONARY ARTERY W/O ANG PCTRS SNOMED Code(s): 79946984 Comment: -Continue metoprolol, amlodipine, Zetia -restarting home plavix (9) Asterixis Current Visit: Yes Status: Acute Code(s): R27.8 - OTHER LACK OF COORDINATION SNOMED Code(s): 98369540 Comment: Resolved. Likely due to serotonin syndrome related to venlafaxine and linezolid combination. (10) CKD (chronic kidney disease) Current Visit: No Status: Chronic Priority: High Code(s): N18.9 - CHRONIC KIDNEY DISEASE, UNSPECIFIED SNOMED Code(s): 726506741 Comment: -at baseline (11) DVT prophylaxis Current Visit: Yes Status: Acute Code(s): YJA6395 - SNOMED Code(s): 849865979 Comment: lovenox (12) Full code status Current Visit: Yes Status: Acute Code(s): Z78.9 - OTHER SPECIFIED HEALTH STATUS SNOMED Code(s): 594315569 Status and Disposition: inpatient plan to repeat vac change and hopeful for d/c home that day, if tolerates bedside vac change
[2019-09-08] MEDS: Mometasone 220 MCG MDI INH SCH (19:07)
[2019-09-08] MEDS: Venlafaxine EXT RELEASE CAP* 37.5 MG PO SCH (20:04)
[2019-09-08] MEDS: Pramipexole TAB* 0.5 MG PO SCH (20:04)
[2019-09-08] MEDS: Melatonin 3 MG TAB PO SCH (20:07)
[2019-09-08] MEDS: Fluticasone NASAL SPRAY 50MCG* 16 gm SPRAY BTL BOTH NARES SCH (20:08)
[2019-09-08] MEDS ORDERED: cefTRIAXone(*) 1 GM in NS 0.9% 50 ML* 50 ML IVPB SCH (21:00)
[2019-09-09] MEDS: HYDROcodone/ACETAMIN 5-325 MG* 1 TAB PO PRN ×2 (02:48→07:02)
[2019-09-09] MEDS: Levothyroxine TAB* 175 MCG TAB PO SCH (05:40)
[2019-09-09] MEDS ORDERED: HYDROcodone/ACETAMIN 5-325 MG* 1 TAB PO PRN ×2 (08:14)
[2019-09-09] MEDS ORDERED: Cefdinir cap* 300 MG CAP PO SCH (09:00)
[2019-09-09] MEDS: Ezetimibe TAB* 10 MG PO SCH (09:00)
[2019-09-09] MEDS: Cholecalciferol TAB* 1000 UNITS PO SCH (09:00)
[2019-09-09] MEDS: Amiodarone TAB* 200 MG PO SCH (09:01)
[2019-09-09] MEDS: Senna TAB 8.6 mg* TAB PO SCH (09:01)
[2019-09-09] MEDS: Multivitamins/Minerals TAB PO SCH (09:01)
[2019-09-09] MEDS: Pantoprazole TAB * 40 MG TAB PO SCH (09:01)
[2019-09-09] MEDS: Metoprolol Succinate XL TAB* 25 MG PO SCH (09:01)
[2019-09-09] MEDS: Torsemide TAB* 20 MG PO SCH (09:01)
[2019-09-09] MEDS: amLODIPine TAB* 5 MG PO SCH (09:01)
[2019-09-09] MEDS: Docusate CAP* 100 MG PO SCH (09:01)
[2019-09-09] MEDS: Clopidogrel TAB* 75 MG PO SCH (09:02)
[2019-09-09] MEDS: Enoxaparin(*) 40 MG/0.4 ML SYR SUBCUT SCH (09:02)
[2019-09-09] MEDS: Montelukast Sodium TAB* 10 MG PO SCH (09:02)
[2019-09-09] MEDS: Cetirizine* 10 MG TAB PO SCH (09:02)
--- NOTE | 2019-09-09 10:03 | PN ---
Progress Note - Progress Note Date of Service: 09/09/19 SOAP: Subjective: []Pt seen and examined OOB in chair, her vac was changed today. She feels well without complaints. No feeling of fever or chills. Objective: [] Gen: NAD, nontoxic appearing RLE: Wound vac changed, wound measures roughly 6 cm wide by 6 cm long by 4 cm deep, measurement includes 1 cm of undermining at 9 oclock. Wound bed with granulation tissue, no discharge, no surrounding erythema. NVI distally. Vac change tolerated well by patient. Calves supple and nontender Assessment: s/p right medial knee I &D with wound vac, last changed today at bedside. Plan: 1) continue PT/OT 2) Continue IV Abx- dapto. Discussed with ID, plan is for dapto for another week at [place] 3) Vac changes by home nursing, scheduled for M,W,F first 09/13/19. 4) Follow up with Dr Umana in 1 week, sooner with concerns Vital Signs Temp 97.5 F 09/09/19 07:35 Pulse 60 09/09/19 07:35 Resp 16 09/09/19 07:35 BP 139/50 09/09/19 07:35 Pulse Ox 100 09/09/19 07:35 Intake & Output 09/08/19 09/09/19 09/09/19 18:59 06:59 18:59 Intake Total 760 820 230 Output Total 50 Balance 710 820 230 Intake: IV Fluids 80 ABX - CEFTRIAXONE 50 all fluids 30 Oral 760 740 230 Output: Wound Vac 50 Other: Estimated Void Medium # Bowel Movements 1 Estimated Stool Amount Medium # Voids 1 Laboratory Last Values WBC 8.1 10^3/uL (3.5-10.8) 09/06/19 05:40 RBC 2.57 10^6 /uL (3.70-4.87) L 09/06/19 05:40 Hgb 8.6 g/dL (12.0-16.0) L 09/06/19 05:40 Hct 25 % (35-47) L 09/06/19 05:40 MCV 97 fL (80-97) 09/06/19 05:40 MCH 33 pg (27-31) H 09/06/19 05:40 MCHC 35 g/dL (31-36) 09/06/19 05:40 RDW 13 % (10-15) 09/06/19 05:40 Plt Count 175 10^3/uL (150-450) 09/06/19 05:40 MPV 7.4 fL (7.4-10.4) 09/06/19 05:40 Neut % (Auto) 63.1 % 09/06/19 05:40 Lymph % (Auto) 23.4 % 09/06/19 05:40 [place] % (Auto) 8.9 % 09/06/19 05:40 Eos % (Auto) 4.4 % 09/06/19 05:40 Baso % (Auto) 0.2 % 09/06/19 05:40 Absolute Neuts (auto) 5.1 10^3/ul (1.5-7.7) 09/06/19 05:40 Absolute Lymphs (auto) 1.9 10^3/ul (1.0-4.8) 09/06/19 05:40 Absolute Monos (auto) 0.7 10^3/ul (0-0.8) 09/06/19 05:40 Absolute Eos (auto) 0.4 10^3/ul (0-0.6) 09/06/19 05:40 Absolute Basos (auto) 0.0 10^3/ul (0-0.2) 09/06/19 05:40 Absolute Nucleated RBC 0.0 10^3/ul 09/06/19 05:40 Nucleated RBC % 0.0 09/06/19 05:40 INR (Anticoag Therapy) 1.01 (0.82-1.09) 09/02/19 06:25 Sodium 138 mmol/L (135-145) 09/06/19 05:40 Potassium 4.1 mmol/L (3.5-5.0) 09/06/19 05:40 Chloride 102 mmol/L (101-111) 09/06/19 05:40 Carbon Dioxide 31 mmol/L (22-32) 09/06/19 05:40 Anion Gap 5 mmol/L (2-11) 09/06/19 05:40 BUN 27 mg/dL (6-24) H 09/06/19 05:40 Creatinine 1.38 mg/dL (0.51-0.95) H 09/06/19 05:40 Est GFR ( Amer) 44.6 (>60) 09/06/19 05:40 Est GFR (Non-Af Amer) 36.9 (>60) 09/06/19 05:40 BUN/Creatinine Ratio 19.6 (8-20) 09/06/19 05:40 Glucose 97 mg/dL (70-100) 09/06/19 05:40 POC Glucose (mg/dL) 97 mg/dL (70-100) 09/06/19 05:32 Uric Acid 10.5 mg/dL (2.3-6.6) H 08/27/19 06:08 Calcium 8.5 mg/dL (8.6-10.3) L 09/06/19 05:40 Total Bilirubin 0.20 mg/dL (0.2-1.0) 09/06/19 05:40 Direct Bilirubin 0.00 mg/dL (0.03-0.18) L 08/29/19 04:21 Indirect Bilirubin Not Reportable 08/29/19 04:21 AST 19 U/L (13-39) 09/06/19 05:40 ALT 11 U/L (7-52) 09/06/19 05:40 Alkaline Phosphatase 79 U/L (34-104) 09/06/19 05:40 Ammonia 45 mcmol/L (16-53) 08/29/19 09:33 Total Creatine Kinase 75 U/L (10-223) 09/06/19 05:40 C-Reactive Protein 31.60 mg/L (<8.01) H 09/06/19 05:40 Total Protein 5.8 g/dL (6.4-8.9) L 09/06/19 05:40 Albumin 3.0 g/dL (3.2-5.2) L 09/06/19 05:40 Globulin 2.8 g/dL (2-4) 09/06/19 05:40 Albumin/Globulin Ratio 1.1 (1-3) 09/06/19 05:40 Urine Color Yellow 09/05/19 02:45 Urine Appearance Cloudy 09/05/19 02:45 Urine pH 7.0 (5-9) 09/05/19 02:45 Ur Specific [place] 1.013 (1.010-1.030) 09/05/19 02:45 Urine Protein 1+(30 mg/dl) (Negative) A 09/05/19 02:45 Urine Ketones Negative (Negative) 09/05/19 02:45 Urine Blood Negative (Negative) 09/05/19 02:45 Urine Nitrate Positive (Negative) A 09/05/19 02:45 Urine Bilirubin Negative (Negative) 09/05/19 02:45 Urine Urobilinogen Negative (Negative) 09/05/19 02:45 Ur Leukocyte Esterase 3+ (Negative) A 09/05/19 02:45 Urine WBC (Auto) 3+(>20/hpf) (Absent) A 09/05/19 02:45 Urine RBC (Auto) Trace(0-2/hpf) (Absent) 09/05/19 02:45 Ur Squamous Epith Cells Present (Absent) A 09/05/19 02:45 Urine Bacteria 3+ (Absent) A 09/05/19 02:45 Ur Creatinine Concen 34.95 mg/dL 08/28/19 16:25 Ur Urea Nitrogen Conc 299 mg/dL 08/28/19 16:25 Urine Glucose Negative (Negative) 09/05/19 02:45 Urine Ascorbic Acid * (Negative) A 09/05/19 02:45
[2019-09-09 11:19] VITALS: BP 159/76
[2019-09-09] MEDS: DAPTOmycin SDV(*) 500 MG in NS 0.9% 50 ML* 50 ML IVPB SCH (12:01)
--- NOTE | 2019-09-09 14:26 | PN ---
Progress Note - Progress Note Date of Service: 09/09/19 SOAP: Subjective: CC: Right leg infection HPI: Ms. Martin is a 78 yo female with PMH significant for CKD3, VALENTIN, lymphedema, asthma, RLS, HTN, anemia, myeloproliferative disorder, heart failure , A fib, essential tremor, fibromyalgia, GERD, hypothyroidism, headache, and CAD ; s/p excision of right medial leg cyst with recurrence of drainage and erythema while on doxycycline. Denies fever, chills, nausea, vomiting, or diarrhea. She is anxious for discharge home today. Objective: Vital Signs 09/09/19 09/09/19 11:10 11:36 Temperature 97.9 F Pulse Rate 60 Respiratory 18 16 Rate Blood Pressure 159/76 (mmHg) O2 Sat by Pulse 98 Oximetry Physical Exam: General: NAD, laying in bed Neurological: Alert and Oriented HEENT: Moist MM Cardiovascular: Heart rate irregular. Mild bilateral LE edema Respiratory: Lung sound clear Abdomen: Bowel sounds present; ABD soft, obese, non tender and non distended MSK: Able to move bilateral LEs Skin: No rash. Wound vac to right medial leg in place, no surrounding erythema. PICC line to the right UE, site benign Microbiology 09/05/19 02:45 Urine Culture - Final Urine Escherichia Coli 08/24/19 15:52 Aerobic Blood Culture - Final Blood Venous No Growth Day 5 Anaerobic Blood Culture - Final No Growth Day 5 08/24/19 15:51 Aerobic Blood Culture - Final Blood Venous No Growth Day 5 Anaerobic Blood Culture - Final No Growth Day 5 08/25/19 16:30 Anaerobic Culture - Final Wound 08/25/19 16:30 Skin and Soft Tissue MRSA/MSSA (PCR - Final Knee Right Mrsa Negative S.aureus Negative Gram Stain - Final Wound Culture - Final Vre Enterococcus Faecium 08/24/19 16:30 Skin and Soft Tissue MRSA/MSSA (PCR - Final Knee Right Mrsa Negative S.aureus Negative Gram Stain - Final Wound Culture - Final Enterococcus Faecium Normal Dede Assessment: 1. Right leg abscess. Wound cultures with VRE. S/P multiple I+Ds and multiple wound vac changes in the OR. Continues to have a wound vac in place, wound vac changed at bedside today; no issues. Blood cultures with no growth to date. Afebrile and no leukocytosis. CRP was trending down; up this week, ? reactive. 2. CKD, stage 3. 3. Morbid obesity. BMI 43.5. Plan: Continue Daptomycin 500 mg IV Q48 hours (renal dosing), day . PICC line has been placed. Plan for outpatient infusions at [facility] for 3 doses. Weekly labs while on IV ABX: CBC, CMP, CK, and CRP, will get labs at last dose. Followup with ID outpatient 1-2 weeks after discharge.
--- NOTE | 2019-09-09 23:20 | DS ---
CC: Dr. Villeda * DISCHARGE SUMMARY: DATE OF ADMISSION: 08/24/19 DATE OF DISCHARGE: 09/09/19 ATTENDING PHYSICIAN WHILE IN THE HOSPITAL: Dr. Carter * (dictated by PHYLLIS Otto). PRIMARY CARE PROVIDER: Dr. Villeda. PRIMARY DIAGNOSES: 1. Soft tissue infection of the right knee positive for vancomycin-resistant Enterococcus faecium. 2. Urinary tract infection, positive for Escherichia coli. 3. Acute kidney injury on top of chronic kidney disease, resolved likely prerenal in the setting of infection. 4. Likely serotonin syndrome due to linezolid in combination with Effexor, resolved. SECONDARY DIAGNOSES: 1. Diastolic heart failure. 2. Chronic pain. 3. Atrial fibrillation, not on anticoagulation due to history of peptic ulcer disease. 4. Hyperlipidemia. 5. Hypertension. 6. Coronary artery disease. 7. Chronic kidney disease. 8. Obstructive sleep apnea. PERTINENT STUDIES/LAB DATA: Initial white blood cell count 10.9; peak of creatinine 2.08, later 1.38. Initial CRP was 87.06, most recently on 09/06/19, it was 31.6. Urine culture from 09/05/19 positive for E. coli, overall sensitive except for resistant to ampicillin. Intraoperative culture from right knee washout on 08/25/19, MRSA negative, vancomycin-resistant Enterococcus faecium with sensitivities listed only for gentamicin, linezolid, quinupristin/dalfopristin, and tigecycline. PROCEDURES WHILE IN THE HOSPITAL: On 08/25/19, right knee irrigation and debridement performed by Dr. Vaca. On 08/28/19, right knee wound incision and drainage and wound VAC was placed by Dr. Rodriguez. On 08/30/19, irrigation with wound VAC change performed by Dr. Umana. On 09/02/19, right knee irrigation and debridement, secondary closure of wound with additional wound VAC performed by Dr. Vaca. On 09/06/19, wound VAC change performed by Dr. Umana. PICC line placement on 08/27/19 with confirmation via fluoroscopy and additional confirmation via chest x-ray on the date of discharge. HISTORY OF PRESENT ILLNESS/HOSPITAL COURSE: Roxi Martin is a 78-year-old white female with past medical history significant for coronary artery disease, diastolic heart failure, atrial fibrillation not on anticoagulation, hypertension, hyperlipidemia, chronic kidney disease, and morbid obesity, who presented with right medial knee significant increased edema, erythema. The patient previously had excision of a benign synovial cyst on 08/09/19 and at that time, although her cultures were negative. She was started on prophylactic doxycycline. When she represented on date of admission on 08/24/19 , she was having increased erythema and edema. This appeared consistent with soft tissue infection. She was seen in consultation by Dr. Salcedo of the infectious disease service as well as by the orthopedic service, who has already been following her since previous surgery in July. Initially, broad spectrum antibiotics were initiated including cefepime and vancomycin. The initial wound incision and drainage was performed on 08/25/19 as previously mentioned, as of wound culture was obtained. The patient was continued on this regimen until her culture demonstrated vancomycin-resistant Enterococcus faecium. Dr. Salcedo then changed the patient to linezolid and she was on this for about 5 days. During this time, the orthopedics team continued to irrigate and assessed the wound and exchanged her wound VACs due to poor wound healing and the size of the wound. The patient then developed asterixis and this is believed to be due to serotonin syndrome related to the linezolid in combination with her home venlafaxine, which was continued during her hospitalization. The infectious disease team then changed the patient from linezolid to IV daptomycin and once this change was made, her asterixis resolved. Ultimately by date of discharge, the patient had a wound VAC exchange at bedside and tolerated this well and Orthopedics felt that because of this she was safe for discharge and she will need to continue the use of her wound VAC with wound care outpatient. She already had a PICC line in place. The patient's mild leukocytosis resolved during her hospital stay and she was afebrile during of her stay. In the last week of her stay, urine sample was obtained and urine culture demonstrated E. coli. Initially, the patient was not complaining of dysuria or urinary frequency or low back pain or suprapubic pain and this was determined to be asymptomatic bacteriuria, however, later the following day, the patient was complaining of dysuria and an empiric ceftriaxone was started and this was demonstrated as sensitive when the culture sensitivities were performed. Regarding the patient's home medications, her torsemide was initially held due to her rise in creatinine and was eventually restarted due to lower extremity edema and resolution of her GIDEON to her baseline creatinine and BUN. She was continued on her home antihypertensives and initially her Plavix was held due to her frequent wound irrigations, it was ultimately restarted, which was okay by the orthopedic service. The patient was seen by physical therapist while she is in the hospital, who recommended subacute rehab. The patient was not interested in this and was planning on going home. She did tell me she had multiple walkers at home and was agreeable to using a walker when ambulating around her home. PHYSICAL EXAM ON DAY OF DISCHARGE: General: Morbidly obese, white female, sitting in chair, appearing comfortable in no acute distress. Eyes: PERRLA. Sclerae anicteric. Neck: Trachea midline. Lungs: Respiration is symmetrical. Cardio: Trace pitting edema to bilateral lower extremities from mid tibia and inferiorly. Abdomen: Soft, nontender, nondistended. No suprapubic tenderness. Extremities: Jairo wrap applied to right knee around the wound VAC. Neuro: The patient is alert and oriented x3. DISCHARGE PLAN: Discharge instructions: The patient is to follow up with Dr. Umana in 1 week. She is to continue 3 more doses of every other day IV daptomycin as directed by the infectious disease team. She will be going to [facility] for her infusions. She is going to be followed by home visiting nurses for her home wound care for wound VAC. She was advised to exhibit caution when ambulating with a walker considering the wound VAC that is in place. She is advised to continue her Cefdinir to its full course. She was advised to please return to the emergency department if she is experiencing fever, chills, low back pain, severe abdominal pain, red streaking up her extremities, chest pain, difficulty breathing, or other concerning symptoms. ACTIVITY: The patient may return to normal activity as tolerated. DIET: Heart healthy diet. DISCHARGE MEDICATIONS: New medications: 1. Hydrocodone/acetaminophen 5/325, 1 to 2 tablets p.o. q.4 hours p.r.n. severe pain, maximum daily dose 9 tabs. 2. Colace 200 mg p.o. b.i.d. 3. Daptomycin 500 mg IV q.48 hours x3 additional doses. 4. Cefdinir 300 mg p.o. b.i.d. x5 days. Continued home medications: 1. Amiodarone 100 mg p.o. daily. 2. Calcium magnesium caplet 1 tab p.o. daily. 3. Vitamin D 2000 units p.o. daily. 4. Plavix 75 mg p.o. daily. 5. Zetia 10 mg p.o. daily. 6. Flovent 110 mcg 1 puff inhaled b.i.d. 7. Fluticasone nasal spray, 1 spray both nares at bedtime. 8. Xyzal 5 mg p.o. daily. 9. Synthroid 175 mcg p.o. daily. 10. Melatonin 10 mg p.o. at bedtime. 11. Metoprolol succinate 25 mg p.o. b.i.d. 12. Singulair 10 mg p.o. daily. 13. Multivitamin with folic acid 400 mcg p.o. daily. 14. Omeprazole 20 mg p.o. b.i.d. 15. Pramipexole 2 mg p.o. at bedtime. 16. Primidone 150 mg p.o. at bedtime. 17. Senna 2 tabs p.o. b.i.d. 18. Shark cartilage 1000 mg p.o. b.i.d. 19. Torsemide 20 mg p.o. daily. 20. Albuterol 2.5 mg/3 mL 1 nebulizer q.i.d. p.r.n. shortness of breath/ wheezing. 21. Albuterol HFA inhaler 2 puffs inhaled q.6 hours p.r.n. shortness of breath/ wheezing. 22. Venlafaxine 37.5 mg p.o. at bedtime. 23. Vitamin B cap, 1 cap p.o. daily. 24. Amlodipine 10 mg p.o. daily. CONDITION ON DISCHARGE: Stable. DISPOSITION: Home. TIME SPENT: Approximately 45 minutes was spent on this discharge, approximately half of this time was spent at bedside evaluating the patient and discussing the plan of care. PHYLLIS OTTO [id number]/[facility] #: [id number] [facility] CENTERIvanna
== END 2019-09-09 14:30 | disposition home or self-care (01) | DRG 571 ==
LOC: MED 12:25 → OBSVTOIN 13:39 → MED 19:07
PROVIDERS: ADMIT Internal Medicine; ATTEND Internal Medicine
PROC: 0KBS0ZZ Excision of Right Lower Leg Muscle, Open Approach (ICD-10-PCS; 2019-08-25)
PROC: 0JBN0ZZ Excision of Right Lower Leg Subcutaneous Tissue and Fascia, Open Approach (ICD-10-PCS; principal; 2019-08-28 08:00)
PROC: 3E1U38Z Irrigation of Joints using Irrigating Substance, Percutaneous Approach (ICD-10-PCS; 2019-08-30)
PROC: 0KBS0ZZ Excision of Right Lower Leg Muscle, Open Approach (ICD-10-PCS; 2019-09-02)
PROC: 3E1U38Z Irrigation of Joints using Irrigating Substance, Percutaneous Approach (ICD-10-PCS; 2019-09-06)
DX: L02.415 Cutaneous abscess of right lower limb (principal); 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 kidney disease with heart failure and stage 1 through stage 4 chronic kidney disease, or unspecified chronic kidney disease; I50.32 Chronic diastolic (congestive) heart failure; Z68.41 Body mass index [BMI] 40.0-44.9, adult; J96.11 Chronic respiratory failure with hypoxia; N39.0 Urinary tract infection, site not specified; Z16.21 Resistance to vancomycin; N17.9 Acute kidney failure, unspecified; G89.29 Other chronic pain; I48.0 Paroxysmal atrial fibrillation; G47.33 Obstructive sleep apnea (adult) (pediatric); N18.3 Chronic kidney disease, stage 3 (moderate); I89.0 Lymphedema, not elsewhere classified; J45.909 Unspecified asthma, uncomplicated; G25.81 Restless legs syndrome; G25.0 Essential tremor; E03.9 Hypothyroidism, unspecified; M79.7 Fibromyalgia; K21.9 Gastro-esophageal reflux disease without esophagitis; I25.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 native coronary artery without angina pectoris; K22.4 Dyskinesia of esophagus; Z96.643 Presence of artificial hip joint, bilateral; E66.01 Morbid (severe) obesity due to excess calories; D63.1 Anemia in chronic kidney disease; B96.20 Unspecified Escherichia coli [E. coli] as the cause of diseases classified elsewhere; B95.2 Enterococcus as the cause of diseases classified elsewhere; T36.8X5A Adverse effect of other systemic antibiotics, initial encounter; T43.215A Adverse effect of selective serotonin and norepinephrine reuptake inhibitors, initial encounter; Y92.239 Unspecified place in hospital as the place of occurrence of the external cause; R27.8 Other lack of coordination; E78.5 Hyperlipidemia, unspecified; Z95.1 Presence of aortocoronary bypass graft; Z88.8 Allergy status to other drugs, medicaments and biological substances; Z91.041 Radiographic dye allergy status; Z79.02 Long term (current) use of antithrombotics/antiplatelets; Z79.52 Long term (current) use of systemic steroids; Z79.51 Long term (current) use of inhaled steroids; Z79.899 Other long term (current) drug therapy
CPT/HCPCS: 36415; 36569; 71045; 76937; 77001; 80048; 80053; 80076; 81003; 81015; 82140; 82550; 82570; 84540; 84550; 85025; 85610; 86140; 87040; 87070; 87073; 87077; 87086; 87186; 87205; 87640; 87641; 94640; A9270-GY; J0692; J0696; J0878; J1100; J1170; J1642; J1650; J1885; J2020; J2250; J2270; J2405; J2704; J3010; J3370; J3490; J8540

== ENCOUNTER 2019-10-11 18:24 | Emergency (ER) | payer MEDICARE ==
--- OUTSIDE RECORDS SUMMARY | 2019-10-11 19:54 | XMS REPORT | Continuity of Care Document ---
:1940 External Reference #:[id number] Author Name Fawn Benson NP (transmitted by agent of provider Sophy Abebe) Address [address] [place] [address] Care Team Providers Name Role Phone Roger Giron MD - Internal Care Team Information Market Reporter Medicine Veronica Glez FNP - Family Care Team Information Market Reporter Manas Villeda MD - Family Care Team Information Market Reporter [phone] Medicine Estelita Brown MD - Vascular Surgery Care Team Information Market Reporter Arnold Holguin MD - Hospitalist Care Team Information Market Reporter [phone] Problems Active Problems Provider Date Restless legs Jaziel Hurst M.D. Onset: 04/06/2015 Dyspnea Sharon Peter MD Onset: 06/10/2016 Asthma without status asthmaticus Sharon Peter MD Onset: 06/10/2016 Disturbance in sleep behavior Sharon Peter MD Onset: 06/10/2016 Morbid obesity Sharon Peter MD Onset: 06/10/2016 Encounter for planned postprocedural Bennie Herron M.D., [facility] Onset: wound closure Angina pectoris [...] Lennox Singh M.D. Onset: 01/24/2018 [place] coronary artery without angina pectoris Contusion of abdominal wall Lennox Singh M.D. Onset: 01/25/2018 Chest pain Shanda Gregory D.O. Onset: 01/31/2018 Hypothyroidism Shanda Gregory D.OKandi Onset: 01/31/2018 Chronic diastolic heart failure Shanda [...] Arnold Holguin MD Onset: 07/07/2018 [place] coronary artery with unspecified angina pectoris Localized, primary osteoarthritis Marisela Driver M.D. 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 pls provide pt with light wt conserving device for o2 Breo Ellipta 1 puff inhaled Feli daily BALWINDER Oliva, RN, 100-25mcg/Inh Aerosol MAIL CENSOR-BC Shark Cartilage 2 by mouth twice Unknown 500mg a day Calcium& Magnesium 1 po daily Unknown 750-465mg Aspirin Ec 1 by mouth every Unknown 81mg Tablets day Vitamin D 2 tabs by mouth 90tabs Unknown 1000Units everyday Tablets Melatonin 1 tab by mouth at Unknown 10mg Capsules bedtime as needed for insomnia Omeprazole 1 by mouth every 90caps You S. 40mg day Danny, DO FACC Capsules Metoprolol Succinate 1 by mouth twice a 180tabs You S. ER day Danny, DO FACC 25mg Tablets ER 24HR Primidone take 3 tablets 270tabs You S. 50mg Tablets (150 mg) by mouth Danny, DO FACC at bedtime Pramipexole take 2 at bedtime Amaris, Dihydrochloride Veronica, MAIL CENSOR 1mg Tablets Cephalexin Take 1 Capsule By Unknown 500mg Mouth Twice Daily Capsules For 7 Days Nystop Amaris, 393148Erkg/GM Veronica, MAIL CENSOR Powder Ventolin HFA 2 puffs by mouth Unknown four times a day 108(90Base) mcg/Act as needed Aerosol Levothyroxine Sodium 1 by mouth every Unknown [...] Q4H prn 120tabs Unknown phen 10/325 Tablets History Medications Doxycycline take one 14caps M71.061 Saw Vaca MD 08/19/2019 - Monohydrate capsule twice a 08/27/2019 100mg day x 7 days. Capsules Doxycycline Take one 10caps M71.061 Mp F 08/16/2019 - Monohydrate capsule every MD Leighton 09/16/2019 100mg 12 hours for 5 Capsules days Medications Administered in Office Medication SIG Qnty Indications Ordering Provider Date Celestone 3 mg and 3mg Bryson Mcgarry MD 05/25/2019 Injection Celestone 3 mg and 3mg Bryson Mcgarry MD 05/25/2019 Injection Technetium TC 99M Ica Nuclear Schedule 03/26/2018 Tetrofosmin, Per Unit Dose Up To 40 Millicuries Injection Inj, Regadenoson, 0.1 MG You Delgado, DO FAC 03/25/2018 Injection Technetium TC 99M You Delgado, DO [facility] 03/25/2018 Tetrofosmin, Per Unit Dose Up To 40 Millicuries Injection Immunizations CPT Code Status Date Vaccine Lot # [id number] Given 06/28/1997 Flu Vaccine Vital Signs Date Vital Result Comment 09/17/2019 1:08pm Height 60 inches 5'0" Weight 230.00 lb per pt Heart Rate 60 /min BP Systolic Sitting 128 mmHg BP Diastolic Sitting 60 mmHg Respiratory Rate 14 /min Body Temperature 97.3 F BMI (Body Mass Index) 44.9 kg/m2 09/16/2019 11:26am Height 60 inches 5'0" Heart Rate 70 /min Body Temperature 96.9 F Pain Level 9 Results Test Acquired Date Facility Test Result H/L Range Note CBC Auto 09/15/2019 [facility] White Blood 5.6 10^3/uL Normal 3.5-10.[address] [place] [address] [phone] Red Blood Count 3.05 10^6/uL Low 3.70-4.87 Hemoglobin 9.8 g/dL Low 12.0-16.0 Hematocrit 30 % Low 35-47 Mean Corpuscular Volume 98 fL High 80-97 Mean Corpuscular Hemoglobin 32 pg High 27-31 Mean Corpuscular HGB Conc 33 g/dL Normal 31-36 Red Cell Distribution Width 14 % Normal 10-15 Platelet Count 199 10^3/uL Normal 150-450 Mean Platelet Volume 8.3 fL Normal 7.4-10.4 Abs Neutrophils 3.1 10^3/uL Normal 1.5-7.7 Abs Lymphocytes 1.6 10^3/uL Normal 1.0-4.8 Abs Monocytes 0.5 10^3/uL Normal 0-0.8 Abs Eosinophils 0.3 10^3/uL Normal 0-0.6 Abs Basophils 0.1 10^3/uL Normal 0-0.2 Abs Nucleated RBC 0.0 10^3/uL Granulocyte % 55.6 % Lymphocyte % 28.0 % Monocyte % 9.6 % Eosinophil % 5.8 % Basophil % 1.0 % Nucleated Red Blood Cells % 0.0 Comp Metabolic 09/15/2019 [facility] Sodium 139 mmol/L Normal 135-[address] [place] [address] [phone] Potassium 4.3 mmol/L Normal 3.5-5.0 Chloride 105 mmol/L Normal 101-111 Co2 Carbon Dioxide 27 mmol/L Normal 22-32 Anion Gap 7 mmol/L Normal 2-11 Calcium 8.7 mg/dL Normal 8.6-10.3 Albumin 3.6 g/dL Normal 3.2-5.2 Total Bilirubin 0.30 mg/dL Normal 0.2-1.0 Glucose 137 mg/dL High 70-100 Blood Urea Nitrogen 42 mg/dL High 6-24 Creatinine 1.36 mg/dL High 0.51-0.95 BUN/Creatinine Ratio 30.9 High 8-20 Total Protein 6.3 g/dL Low 6.4-8.9 Globulin 2.7 g/dL Normal 2-4 Albumin/Globulin Ratio 1.3 Normal 1-3 Alkaline Phosphatase 82 U/L Normal 34-104 Alt 11 U/L Normal 7-52 Ast 17 U/L Normal 13-39 Egfr Non- 37.5 >60 Egfr 45.4 >60 2 Laboratory test 09/15/2019 [facility] C Reactive 7.71 mg/L Normal <8.01 [address] [place] [address] [phone] Laboratory test 08/08/2019 [facility] Legionella SEE RESULT [address] [place] [address] [phone] Influenza A & B 08/08/2019 [facility] Flu AB (SEE NOTE) [address] Disclaimer [place] [address] [phone] Influenza A Molecular NEGATIVE Negative Influenza B Molecular NEGATIVE Negative 6 Laboratory test 08/08/2019 [facility] Lactic Acid 1.3 mmol/L Normal 0.5-2.0 [address] [place] [address] [phone] CBC Auto Diff 08/08/2019 [facility] White Blood 10.9 High 3.5- 10.[address] Count 10^3/[place] [address] [phone] Red Blood Count 3.12 10^6/uL Low 3.70-4.87 [...] Blood Cells % 0.0 Basic Metabolic 08/08/2019 [facility] Sodium 133 mmol/L Low 135-[address] [place] [address] [phone] Potassium 4.1 mmol/L Normal 3.5-5.0 Chloride 97 mmol/L Low 101-111 Co2 Carbon Dioxide 24 mmol/L Normal 22-32 Anion Gap 12 mmol/L High 2-11 Glucose 180 mg/dL High 70-100 Blood Urea Nitrogen 59 mg/dL High 6-24 Creatinine 2.49 mg/dL High 0.51-0.95 BUN/Creatinine Ratio 23.7 High 8-20 Calcium 9.0 mg/dL Normal 8.6-10.3 Egfr Non- 18.7 >60 Egfr 22.6 >60 8 Laboratory test 08/08/2019 [facility] C Reactive 177.86 mg/L High <8.[address] [place] [address] [phone] Urinalysis 08/08/2019 [facility] Urine Color Yellow Profile [address] [place] [address] [phone] Urine Appearance Clear Urine Specific [place]elling 1.014 Normal 1.010-1.030 Urine pH 5.0 Normal 5-9 Urine Urobilinogen Negative Negative Urine Ketones Negative Negative Urine Protein 1+(30 mg/dL) Abnormal Negative Urine Leukocytes Negative Negative Urine Blood Negative Negative * * Abnormal Negative 9 Urine Nitrite Negative Negative Urine Bilirubin Negative Negative Urine Glucose Negative Negative Urine White Blood Cell Trace(0-5/hpf) Absent Urine Red Blood Cell 1+(3-5/hpf) Abnormal Absent Urine Bacteria Absent Absent Urine Squamous Epithelial Cell Present Abnormal Absent Urine Hyaline Casts Present Abnormal Absent Laboratory test 08/08/2019 [facility] Erythrocyte Sed 72 mm/Hr High 0-[address] [place], [place] [address] [phone] Urine Culture And 08/08/2019 [facility] Urine Culture SEE RESULT [address] [place] [address] [phone] Laboratory test 08/08/2019 [facility] Blood Culture SEE RESULT [address] [place] [place], [place] [address] [phone] 1 [id number] 2 Because ethnic data is not always [...] 5 Kidney failure <15 (or dialysis) 3 [id number] 4 SEE RESULT BELOW Name: JOCELYNE MARTIN : [address]: Que Jay MD Acct: [id number] Unit: [id number] AGE: 78 Location: ED Re08/08/19 SEX: F Status: REG ER SPEC: [id number] OSCAR: 08/08/19 [facility] [address]: Renetta Pagan NP REQ: [id number] RECD: 08/08/19 STATUS: FRANKI DE JESUS DR: [...] . END OF REPORT DEPARTMENT OF PATHOLOGY, [address] [place] [address] Ramos Durand M.D. Director [facility] # [id number] 5 Suboptimal collection technique may reduce sensitivity of test. Refer to the [employer] Test Catalog for collection information: [email or web address] As with all diagnostic procedures, the laboratory results obtained should be used in conjunction with other clinical information available to the physician, including confirmation by another method, as applicable. 6 Cardiovascular Or Nurse: [id number] [facility] Severe Sepsis and Septic Shock Management Bundle Measure requires all lactic acids initially measuring >2.0 mmol/L be repeated. 8 Because ethnic data is not always [...] 5 Kidney failure <15 (or dialysis) 9 *Ascorbic acid is present which may interfere with detection of blood. 10 SEE RESULT BELOW Name: JOCELYNE MARTIN : [address]: Capri Elliott MD Acct: [id number] Unit: [id number] AGE: 78 Location: [facility] Re08/09/19 SEX: F Status: ADM IN SPEC: [id number] OSCAR: 08/08/[address] [facility] [address]: Que Jay MD REQ: [id number] RECD: 08/08/19 STATUS: COMP KM DR: You Bains MD _ SOURCE: URINE SPDESC: ORDERED: Urine Culture Procedure Result Reported Site Urine Culture Final 08/09/19- 1400 ML No Growth (<1,000 CFU/mL) * ML - Main Lab . END OF REPORT DEPARTMENT OF PATHOLOGY, [address] [place] [address] Ramos Durand M.D. Director [facility] # [id number] 11 SEE RESULT BELOW Name: JOCELYNE MARTIN : [address]: Capri Elliott MD Acct: [id number] Unit: [id number] AGE: 78 Location: [place] [address] Re08/09/19 Dis: 08/13/19 SEX: F Status: DIS IN SPEC: [id number] OSCAR: 08/08/[address] [facility] [address]: Que Jay MD REQ: [id number] RECD: 08/08/19 STATUS: FRANKI DE JESUS DR: You Bains MD _ SOURCE: BLOOD,VENO SPDESC: ORDERED: Blood Cult Procedure Result Reported Site Aerobic Culture Bottle Final 08/13/19- 8 ML No Growth Day 5 Anaerobic Culture Bottle Final 08/13/19- 1828 ML No Growth Day 5 * ML - Main Lab . END OF REPORT DEPARTMENT OF PATHOLOGY, [address] [place] [address] Ramos Durand M.D. Director [facility] # [id number] Procedures Date Code Description Status 09/06/2019 44162 Negative Pressure Wound Therapy Greater Than 50CM Completed 09/06/2019 47920 Negative Pressure Wound Therapy Greater Than 50CM Completed 09/02/2019 69244 Negative Pressure Wound Therapy Less Than 50 Square CM Completed 09/02/2019 60045 Negative Pressure Wound Therapy Less Than 50 Square CM Completed 09/02/2019 17510 Secondary Closure Of Surgical Wound Or Dehiscence Completed Extensive Or Co 09/02/2019 88484 Secondary Closure Of Surgical Wound Or Dehiscence Completed Extensive Or Co 09/02/2019 04271 Debridement Completed Muscle/Fascia,Epidermis/Dermis/Tissue,Addtl 20 SQ CM 09/02/2019 85021 Debridement Completed Muscle/Fascia,Epidermis/Dermis/Tissue,Addtl 20 SQ CM 09/02/2019 63126 Debridement Completed Muscle/Fascia,Epidermis/Dermis/Tissue,Addtl 20 SQ CM 09/02/2019 86436 Debridement Skin, Subcutaneous Tissue & Muscle Completed 09/02/2019 41355 Debridement Skin, Subcutaneous Tissue & Muscle Completed 08/30/2019 95801 Negative Pressure Wound Therapy Less Than 50 Square CM Completed 08/30/2019 81194 Negative Pressure Wound Therapy Less Than 50 Square CM Completed 08/28/2019 25207 Negative Pressure Wound Therapy Greater Than 50CM Completed 08/28/2019 62751 Debridement Completed Muscle/Fascia,Epidermis/Dermis/Tissue,Addtl 20 SQ CM 08/28/2019 85067 Debridement Skin, Subcutaneous Tissue & Muscle Completed 08/25/2019 83452 Debridement Skin, Subcutaneous Tissue & Muscle Completed 08/25/2019 90056 Debridement Skin, Subcutaneous Tissue & Muscle Completed 08/25/2019 05805 Debridement Completed Muscle/Fascia,Epidermis/Dermis/Tissue,Addtl 20 SQ CM 08/25/2019 41372 Debridement Completed Muscle/Fascia,Epidermis/Dermis/Tissue,Addtl 20 SQ CM 08/25/2019 96468 Debridement Completed Muscle/Fascia,Epidermis/Dermis/Tissue,Addtl 20 SQ CM 08/25/2019 29488 Debridement Completed Muscle/Fascia,Epidermis/Dermis/Tissue,Addtl 20 SQ CM 08/25/2019 38558 Debridement Completed Muscle/Fascia,Epidermis/Dermis/Tissue,Addtl 20 SQ CM 08/25/2019 20885 Debridement Completed Muscle/Fascia,Epidermis/Dermis/Tissue,Addtl 20 SQ CM 08/25/2019 06395 Debridement Completed Muscle/Fascia,Epidermis/Dermis/Tissue,Addtl 20 SQ CM 08/25/2019 19969 Debridement Completed Muscle/Fascia,Epidermis/Dermis/Tissue,Addtl 20 SQ CM 08/25/2019 33392 Debridement Completed Muscle/Fascia,Epidermis/Dermis/Tissue,Addtl 20 SQ CM 08/25/2019 77865 Negative Pressure Wound Therapy Greater Than 50CM Completed 08/25/2019 56994 Negative Pressure Wound Therapy Greater Than 50CM Completed 08/25/2019 78449 Negative Pressure Wound Therapy Greater Than 50CM Completed 08/09/2019 55179 EKG, Interpretation Only Completed 08/09/2019 54409 Excision Tumor Soft Tissue Thigh/Knee Subcutaneous, 3 Completed CM Or > 08/09/2019 08273 Excision Tumor Soft Tissue Thigh/Knee Subcutaneous, 3 Completed CM Or > 05/25/2019 96689 Inject/Drain Joint/Bursa Small W/O US Completed 05/25/2019 83041 Inject/Drain Joint/Bursa Small W/O US Completed 04/23/2019 86159 EKG Tracing & Interpretation Completed 08/06/2016 [id number] Diabetic Retinal Eye Exam Completed Medical Devices Description No Information Available Encounters Type Date Location Provider Dx Diagnosis Office Visit 09/09/2019 [facility] L02.415 Cutaneous 8:25a Infectious Benson, [employer] ARCHITECT abscess of right Diseases lower limb B95.2 Enterococcus as the cause of diseases classified elsewhere Z16.22 Resistance to vancomycin related antibiotics N18.3 Chronic kidney disease, stage 3 (moderate) Office Visit 09/08/2019 [facility] L02.415 Cutaneous 8:24a For Infectious Besnon, [employer] ARCHITECT abscess of Diseases right lower limb B95.2 Enterococcus as the cause of diseases classified elsewhere Z16.22 Resistance to vancomycin related antibiotics N18.3 Chronic kidney disease, stage 3 (moderate) Office Visit 09/08/2019 10:01a [facility] Narcisa N39.0 Urinary tract Assoc,pc SEAMUS Reis infection, site Hospitalists not specified B96.20 Unsp Escherichia coli as the cause of diseases classd elswhr 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 I50.32 Chronic diastolic (congestive) heart failure N18.9 Chronic kidney disease, unspecified I48.91 Unspecified atrial fibrillation Office Visit 09/07/2019 [facility] L02.415 Cutaneous 8:23a For Infectious Benson, [employer] ARCHITECT abscess of Diseases right lower limb B95.2 Enterococcus as the cause of diseases classified elsewhere Z16.22 Resistance to vancomycin related antibiotics N18.3 Chronic kidney disease, stage 3 (moderate) Office Visit 09/07/2019 10:00a [facility] Narcisa 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 Assoc,pc SEAMUS Reis kdny dis w hrt Hospitalists fail and stg 1-4/unsp chr kdny I50.32 Chronic diastolic (congestive) heart failure N18.9 Chronic kidney disease, unspecified Office Visit 09/06/2019 [facility] L02.415 Cutaneous 8:22a For Infectious Benson, [employer] ARCHITECT abscess of Diseases right lower limb B95.2 Enterococcus as the cause of diseases classified elsewhere Z16.22 Resistance to vancomycin related antibiotics N18.3 Chronic kidney disease, stage 3 (moderate) Office Visit 09/06/2019 10:00a [facility] Narcisa 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 Assoc,pc [place], SEAMUS kdny dis w hrt Hospitalists fail and stg 1-4/unsp chr kdny I50.32 Chronic diastolic (congestive) heart failure N18.9 Chronic kidney disease, unspecified Office Visit 09/05/2019 10:00a [facility] 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 Assoc,carli Crowley DO kdny dis w hrt Hospitalists fail and stg 1-4/unsp chr kdny I50.32 Chronic diastolic (congestive) heart failure N18.3 Chronic kidney disease, stage 3 (moderate) Office Visit 09/04/2019 [facility] I48.91 Unspecified atrial 9:58a Assoc,carli Crowley DO fibrillation Hospitalists G89.29 Other chronic pain N18.3 Chronic kidney disease, stage 3 (moderate) Office Visit 09/03/2019 [facility] I48.91 Unspecified atrial 9:56a Assoccarli DO fibrillation Hospitalists N18.3 Chronic kidney disease, stage 3 (moderate) Office Visit 09/03/2019 [facility] L02.415 Cutaneous 9:41a For Infectious Benson, [employer] ARCHITECT abscess of Diseases right lower limb N18.3 Chronic kidney disease, stage 3 (moderate) B95.2 Enterococcus as the cause of diseases classified elsewhere Z16.22 Resistance to vancomycin related antibiotics Office Visit 09/02/2019 9:56a [facility] Daniela Lopez G89.29 Other chronic Assoc,carli Ching pain Hospitalists I48.91 Unspecified atrial fibrillation N18.3 Chronic kidney disease, stage 3 (moderate) [facility] I48.91 Unspecified atrial 9:55a Assoc,carli Gregory D.O. 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 I50.32 Chronic diastolic (congestive) heart failure N18.3 Chronic kidney disease, stage 3 (moderate) Office Visit 09/01/2019 [facility] L02.415 Cutaneous 9:40a For Infectious Benson, [employer] ARCHITECT abscess of Diseases right lower limb N18.3 Chronic kidney disease, stage 3 (moderate) B95.2 Enterococcus as the cause of diseases classified elsewhere Z16.22 Resistance to vancomycin related antibiotics Office Visit 08/31/2019 [facility] Narcisa I48.91 Unspecified atrial 9:54a Assoc,pc ALISE ReisC 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 I50.32 Chronic diastolic (congestive) heart failure N18.3 Chronic kidney disease, stage 3 (moderate) Office Visit 08/31/2019 [facility] L02.415 Cutaneous 9:36a For Infectious Benson, [employer] ARCHITECT abscess of Diseases right lower limb N18.3 Chronic kidney disease, stage 3 (moderate) B95.2 Enterococcus as the cause of diseases classified elsewhere Z16.22 Resistance to vancomycin related antibiotics Office Visit 08/30/2019 9:38a [facility] Seymour Forte L02.415 Cutaneous Infectious Jeane Beltrán abscess of Diseases right lower limb N18.9 Chronic kidney disease, unspecified B95.2 Enterococcus as the cause of diseases classified elsewhere Z16.22 Resistance to vancomycin related antibiotics Office Visit 08/30/[facility] I48.91 Unspecified atrial 9:54a Assoc,carli Gregory D.O. 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 I50.32 Chronic diastolic (congestive) heart failure G89.29 Other chronic pain N18.3 Chronic kidney disease, stage 3 (moderate) E66.01 Morbid (severe) obesity due to excess calories Office Visit 08/29/2019 9:53a [facility] Arnold Holguin MD M79.674 Pain in right Assoc,pc toe(s) Hospitalists G89.29 Other chronic pain G25.81 Restless legs syndrome N18.3 Chronic kidney disease, stage 3 (moderate) Office Visit 08/28/2019 9:53a [facility] Arnold Holguin, I48.0 Paroxysmal atrial Assoccarli MD fibrillation Hospitalists G89.29 Other chronic pain N18.3 Chronic kidney disease, stage 3 (moderate) E66.01 Morbid (severe) obesity due to excess calories Office Visit 08/27/2019 [facility] Fawn Ramos L02.415 Cutaneous 9:33a For Infectious Benson, [employer] ARCHITECT abscess of Diseases right lower limb N18.3 Chronic kidney disease, stage 3 (moderate) B95.2 Enterococcus as the cause of diseases classified elsewhere Office Visit 08/27/2019 9:52a [facility] I48.0 Paroxysmal atrial Asscarli dickinson M.D. fibrillation Hospitalists G89.29 Other chronic pain E66.01 Morbid (severe) obesity due to excess calories D64.9 Anemia, unspecified Office Visit 08/26/2019 [facility] Chaitanya Forte L02.415 Cutaneous abscess 9:33a Umair Beltrán M.D. of right lower Diseases limb Office Visit 08/26/2019 [facility] I48.0 Paroxysmal atrial 9:52a Asscarli dickinson M.D. fibrillation Hospitalists G89.29 Other chronic pain Office Visit 08/25/2019 9:52a [facility] I48.0 Paroxysmal atrial Asscarli dickinson M.D. fibrillation Hospitalists G89.29 Other chronic pain N18.9 Chronic kidney disease, unspecified Office Visit 08/25/2019 9:32a [facility] Seymour Forte L02.415 Cutaneous Infectious Jeane Beltrán abscess of Diseases right lower limb N18.9 Chronic kidney disease, unspecified Office Visit 08/24/2019 9:51a [facility] I48.0 Paroxysmal atrial Asscarli dickinson M.D. fibrillation Hospitalists L08.9 Local infection of the skin and subcutaneous tissue, unsp G89.29 Other chronic pain G47.33 Obstructive sleep apnea (adult) (pediatric) N18.9 Chronic kidney disease, unspecified Office Visit 08/24/2019 9:30a [facility] Chaitanya D. L02.415 Cutaneous Infectious Jeane Beltrán abscess of Diseases right lower limb N18.3 Chronic kidney disease, stage 3 (moderate) Office Visit 08/13/2019 9:09a [facility] Capri N17.9 Acute kidney Assoc,carli Connolly M.D. failure, Hospitalists unspecified M25.561 Pain in right knee L03.115 Cellulitis of right lower limb I48.0 Paroxysmal atrial fibrillation E66.01 Morbid (severe) obesity due to excess calories [facility] Follicular [facility] of 1:29p For Infectious Kelley, [employer] the skin and Diseases subcutaneous tissue, unsp N18.3 Chronic kidney disease, stage 3 (moderate) I89.0 Lymphedema, not elsewhere classified Office Visit 08/12/2019 9:08a [facility] Capri N17.9 Acute kidney Assoccarli M.D. failure, Hospitalists unspecified I48.0 Paroxysmal atrial fibrillation Office Visit 08/11/2019 9:04a [facility] Chaitanya Forte L72.9 Follicular cyst of For Infectious Jeane Beltrán the skin and Diseases subcutaneous tissue, unsp M25.561 Pain in right knee Office Visit 08/11/2019 9:08a [facility] Capri N17.9 Acute kidney Asscarli dickinson M.D. failure, Hospitalists unspecified I48.0 Paroxysmal atrial fibrillation Office Visit 08/10/2019 9:07a [facility] Capri N17.9 Acute kidney Assoccarli M.D. failure, Hospitalists unspecified I48.0 Paroxysmal atrial fibrillation 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[place] coronary artery w/o ang pctrs Office Visit 08/10/2019 [facility] L03.115 Cellulitis of 9:03a For Infectious Kelley, [employer]CHITECT right lower limb Diseases N18.3 Chronic kidney disease, stage 3 (moderate) I89.0 Lymphedema, not elsewhere classified [facility] kidney Assoccarli M.D. failure, Hospitalists unspecified I48.0 Paroxysmal atrial fibrillation 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[place] coronary artery w/o ang pctrs Office Visit 08/09/2019 [facility] Bryson M71.061 Abscess of bursa, 12:10p at Marion Umana M.D. 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, right hand Office Visit 05/11/2019 3:00p [facility] Avinash Romero, D64.89 Other specified [facility] Jeane anemias [place] Office Visit 05/06/2019 3:45p [place]uggan G25.0 Essential tremor Neurologic Serv Jeane Hurst [facility] [address] [facility] G44.229 Chronic tension-type headache, not intractable I20.8 Other forms of angina pectoris Office Visit 04/23/2019 11:15a Cardiology You Duggan R60.0 Localized edema Services [facility] [address] AT [facility] 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[place] coronary artery w/o ang pctrs D64.9 Anemia, [...] peptic ulcer disease Office Visit 04/13/2019 3:00p [place] Donna Romero D64.9 Anemia, [facility] [address] AT M.D. 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 knee M25.561 Pain in right knee M25.462 Effusion, left knee M25.461 Effusion, right knee M17.0 Bilateral primary osteoarthritis of knee M25.511 Pain in right shoulder Assessments Date Code Description Provider 09/17/2019 L02.415 Cutaneous abscess of right lower Fawn Benson NP limb 09/17/2019 B95.2 Enterococcus as the cause of Fawn Benson NP diseases classified elsewhere 09/17/2019 Z16.22 Resistance to vancomycin related Fawn Benson NP antibiotics 09/16/2019 L02.415 Cutaneous abscess of right lower Bryson Umana M.D. limb 09/16/2019 Z48.89 Encounter for other specified Bryson Umana M.D. 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 Ruben'ALISE toroC kidney disease with heart failure and stage 1 through stage 4 chronic kidney disease, or unspecified chronic kidney disease 09/09/2019 I50.32 Chronic diastolic (congestive) heart Narcisa O'cortez, PA-C failure 09/09/2019 N17.9 Acute kidney failure, unspecified Narcisa O'cortez, PA-C 09/09/2019 N18.9 Chronic kidney disease, unspecified Narcisa O'cortez, PA-C 09/09/2019 I48.91 Unspecified atrial fibrillation Narcisa O'cortez, PA-C 09/08/2019 L02.415 Cutaneous abscess of right lower Fawn Pedersengualberto Benson NP limb 09/08/2019 N39.0 Urinary tract infection, site not Narcisa O'cortez, PA-C specified 09/08/2019 B95.2 Enterococcus as the cause of Fawn Richard Benson NP diseases classified elsewhere 09/08/2019 Z48.89 Encounter for other specified PHYLLIS Beltran surgical aftercare 09/08/2019 Z16.22 Resistance to vancomycin related Fawn Benson NP antibiotics 09/08/2019 B96.20 Unspecified Escherichia coli [E. 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'cortez, PA-C kidney disease with heart failure and stage 1 through stage 4 chronic kidney disease, or unspecified chronic kidney disease 09/08/2019 I50.32 Chronic diastolic (congestive) heart Narcisa O'cortez, PA-C failure 09/08/2019 N18.9 Chronic kidney disease, unspecified Narcisa O'cortez, PA-C 09/08/2019 I48.91 Unspecified atrial fibrillation Narcisa O'cortez, PA-C 09/07/2019 L02.415 Cutaneous abscess of right lower Fawn Pedersenlurdesmitesh RODRIGO Bensno limb 09/07/2019 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'cortez, PA-C kidney disease with heart failure and stage 1 through stage 4 chronic kidney disease, or unspecified chronic kidney disease 09/07/2019 B95.2 Enterococcus as the cause of Fawn Richard Benson NP diseases classified elsewhere 09/07/2019 I50.32 Chronic diastolic (congestive) heart PHYLLIS Stewart-C failure 09/07/2019 Z16.22 Resistance to vancomycin related Fawnjennifer Benson NP antibiotics 09/07/2019 N18.9 Chronic kidney disease, unspecified ALISE StewartC 09/07/2019 N18.3 Chronic kidney disease, stage 3 Fawn Richard Benson NP (moderate) 09/06/2019 L02.415 Cutaneous abscess of right lower Fawn Richard Benson NP limb 09/06/2019 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 Reis PA-C kidney disease with heart failure and stage 1 through stage 4 chronic kidney disease, or unspecified chronic kidney disease 09/06/2019 B95.2 Enterococcus as the cause of Fwan Richard Benson NP diseases classified elsewhere 09/06/2019 I50.32 Chronic diastolic (congestive) heart ALISE StewartC failure 09/06/2019 Z16.22 Resistance to vancomycin related Fawn Benson NP antibiotics 09/06/2019 N18.9 Chronic kidney disease, unspecified PHYLLIS Stewart-C 09/06/2019 N18.3 Chronic kidney disease, stage 3 Fawn Richard Benson NP (moderate) 09/05/2019 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 Luisa Crowley DO kidney disease with heart failure and stage 1 through stage 4 chronic kidney disease, or unspecified chronic kidney disease 09/05/2019 Z48.89 Encounter for other specified Mario Monet RPA- C surgical aftercare 09/05/2019 I50.32 Chronic diastolic (congestive) heart Luisa Crowley, DO failure 09/05/2019 N18.3 Chronic kidney disease, stage 3 Luisa Senjose luis, DO (moderate) 09/04/2019 I48.91 Unspecified atrial fibrillation Luisa Crowley, DO 09/04/2019 G89.29 Other chronic pain Lusia Crowley, DO 09/04/2019 N18.3 Chronic kidney disease, stage 3 Luisa Crowley, DO (moderate) 09/03/2019 I48.91 Unspecified atrial fibrillation Luisa Crowley, DO 09/03/2019 L02.415 Cutaneous abscess of right lower Fawn Pedersenlurdesblakebrandyn Benson , [employer] limb 09/03/2019 N18.3 Chronic kidney disease, stage 3 Luisa Crowley, DO (moderate) 09/03/2019 N18.3 Chronic kidney disease, stage 3 Fawn Kamlev Benson [employer] (moderate) 09/03/2019 B95.2 Enterococcus as the cause of Fawn Benson [employer] diseases classified elsewhere 09/03/2019 Z16.22 Resistance to vancomycin related Fawn Benson NP antibiotics 09/02/2019 G89.29 Other chronic pain Daniela Lopez M.D. 09/02/2019 S81.001A Unspecified open wound, right knee, ADELAIDA Mooney initial encounter 09/02/2019 I48.91 Unspecified atrial fibrillation Daniela Lopez M.D. 09/02/2019 S81.001A Unspecified open wound, right knee, Saw Vaca MD initial encounter 09/02/2019 N18.3 Chronic kidney disease, stage 3 Daniela Lopez M.D. (moderate) 09/01/2019 I48.91 Unspecified atrial fibrillation Shanda Gregory D.O. 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 kidney disease with heart failure and stage 1 through stage 4 chronic kidney disease, or unspecified chronic kidney disease 09/01/2019 L02.415 Cutaneous abscess of right lower Fawn Ramos Benson , [employer] limb 09/01/2019 I50.32 Chronic diastolic (congestive) heart Ivanna Palomo.O. failure 09/01/2019 Z48.89 Encounter for other specified PHYLLIS Beltran surgical aftercare 09/01/2019 N18.3 Chronic kidney disease, stage 3 Shanda Gregory D.O. 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 Reis PA-C kidney disease with heart failure and stage 1 through stage 4 chronic kidney disease, or unspecified chronic kidney disease 08/31/2019 L02.415 Cutaneous abscess of right lower Fawn Benson NP limb 08/31/2019 I50.32 Chronic diastolic (congestive) heart Narcisa Reis PA-C failure 08/31/2019 Z48.89 Encounter for other specified PHYLLIS Mueller surgical aftercare 08/31/2019 N18.3 Chronic kidney disease, stage 3 Narcisa Reis PA-C (moderate) 08/31/2019 N18.3 Chronic kidney disease, stage 3 Fawn Benson NP (moderate) 08/31/2019 M71.061 Abscess of bursa, right knee Saw Vaca MD 08/31/2019 B95.2 Enterococcus as the cause of Fawn Benson NP diseases classified elsewhere 08/31/2019 L03.115 Cellulitis of right lower limb Saw Vaca MD 08/31/2019 Z16.22 Resistance to vancomycin related Fawn Benson NP antibiotics 08/30/2019 I48.91 Unspecified atrial fibrillation Shanda Gregory D.O. 08/30/2019 L02.415 Cutaneous abscess of right lower Chaitanya Reanna Beltrán M.D. 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 kidney disease with heart failure and stage 1 through stage 4 chronic kidney disease, or unspecified chronic kidney disease 08/30/2019 M71.061 Abscess of bursa, right knee DIONNE Charlton 08/30/2019 I50.32 Chronic diastolic (congestive) heart Shanda Gregory D.O. failure 08/30/2019 N18.9 Chronic kidney disease, unspecified Chaitanya Beltrán M.D. 08/30/2019 G89.29 Other chronic pain Shanda Gregory D.O. 08/30/2019 M71.061 Abscess of bursa, right knee Bryson Umana M.D. 08/30/2019 N18.3 Chronic kidney disease, stage 3 Shanda Gregory D.O. (moderate) 08/30/2019 B95.2 Enterococcus as the cause of Chaitanya Beltrán M.D. diseases classified elsewhere 08/30/2019 E66.01 Morbid (severe) obesity due to Shanda Gregory D.O. excess calories 08/30/2019 L03.115 Cellulitis of right lower limb Mario Monet, [facility] 08/30/2019 Z16.22 Resistance to vancomycin related Chaitanya Beltrán M.D. antibiotics 08/30/2019 L03.115 Cellulitis of right lower limb Bryson Umana M.D. 08/29/2019 M79.674 Pain in right toe(s) Arnold Holguin MD 08/29/2019 M71.061 Abscess of bursa, right knee Bryson Umana M.D. 08/29/2019 G89.29 Other chronic pain Arnold Holguin MD 08/29/2019 L03.115 Cellulitis of right lower limb Bryson Umana M.D. 08/29/2019 G25.81 Restless legs syndrome Arnold Holguin MD 08/29/2019 N18.3 Chronic kidney disease, stage 3 Arnold Holguin MD (moderate) 08/28/2019 I48.0 Paroxysmal atrial fibrillation Arnold Holguin MD 08/28/2019 M71.061 Abscess of bursa, right knee Evan Rodriguez M.D. 08/28/2019 G89.29 Other chronic pain Arnold Holguin MD 08/28/2019 L03.115 Cellulitis of right lower limb Evan Rodriguez M.D. 08/28/2019 N18.3 Chronic kidney disease, stage 3 Arnold Holguin MD (moderate) 08/28/2019 E66.01 Morbid (severe) obesity due to Arnold Holguin MD excess calories 08/27/2019 I48.0 Paroxysmal atrial fibrillation Yuval Marshall M.D. 08/27/2019 L02.415 Cutaneous abscess of right lower Fawn Benson NP limb 08/27/2019 G89.29 Other chronic pain Yuval Marshall M.D. 08/27/2019 Z48.89 Encounter for other specified PHYLLIS Art surgical aftercare 08/27/2019 E66.01 Morbid (severe) obesity due to Yuval Marshall M.D. excess calories 08/27/2019 N18.3 Chronic kidney disease, stage 3 Fawn Benson NP (moderate) 08/27/2019 D64.9 Anemia, unspecified Yuval Marshall M.D. 08/27/2019 B95.2 Enterococcus as the cause of Fawn Benson NP diseases classified elsewhere 08/26/2019 I48.0 Paroxysmal atrial fibrillation Yuval Marshall M.D. 08/26/2019 L02.415 Cutaneous abscess of right lower Chaitanya Beltrán M.D. limb 08/26/2019 G89.29 Other chronic pain Yuval Marshall M.D. 08/25/2019 I48.0 Paroxysmal atrial fibrillation Yuval Marshall M.D. 08/25/2019 L02.415 Cutaneous abscess of right lower Chaitanya Beltrán M.D. limb 08/25/2019 G89.29 Other chronic pain Yuval Marshall M.D. 08/25/2019 M71.061 Abscess of bursa, right knee Amalia Olivares PA-C 08/25/2019 N18.9 Chronic kidney disease, unspecified Yuval Marshall M.D. 08/25/2019 N18.9 Chronic kidney disease, unspecified Chaitanya Beltrán M.D. 08/25/2019 M71.061 Abscess of bursa, right knee Saw Vaca MD 08/25/2019 L03.115 Cellulitis of right lower limb Amalia Olivares PA-C 08/25/2019 L03.115 Cellulitis of right lower limb Saw Vaca MD 08/24/2019 I48.0 Paroxysmal atrial fibrillation Yuval Marshall M.D. 08/24/2019 L08.9 Local infection of the skin and Yuval Marshall M.D. subcutaneous tissue, unspecified 08/24/2019 L02.415 Cutaneous abscess of right lower Chaitanya Beltrán M.D. limb 08/24/2019 G89.29 Other chronic pain Yuval Marshall M.D. 08/24/2019 G47.33 Obstructive sleep apnea (adult) Yuval Marshall M.D. (pediatric) 08/24/2019 M71.061 Abscess of bursa, right knee Bryson Umana M.D. 08/24/2019 N18.9 Chronic kidney disease, unspecified Yuval Marshall M.D. 08/24/2019 Z47.89 Encounter for other orthopedic Bryson Umana M.D. aftercare 08/24/2019 Z48.89 Encounter for other specified Bryson Umana M.D. surgical aftercare 08/24/2019 N18.3 Chronic kidney disease, stage 3 Chaitanya Beltrán M.D. (moderate) 08/24/2019 T81.40xA Infection following a procedure, Bryson Umana M.D. unspecified, initial encounter 08/19/2019 M71.061 Abscess of bursa, right knee Bryson Umana M.D. 08/19/2019 Z47.89 Encounter for other orthopedic Bryson Umana M.D. aftercare 08/16/2019 M71.061 Abscess of bursa, right knee Mp Manzanares MD 08/16/2019 Z47.89 Encounter for other orthopedic Mp Manzanares MD aftercare 08/13/2019 N17.9 Acute kidney failure, unspecified Capri Connolly M.D. 08/13/2019 M25.561 Pain in right knee Capri Connolly M.D. 08/13/2019 L03.115 Cellulitis of right lower limb Capri Connolly M.D. 08/13/2019 I48.0 Paroxysmal atrial fibrillation Capri Connolly M.D. 08/13/2019 E66.01 Morbid (severe) obesity due to Capri Connolly M.D. excess calories 08/12/2019 L72.9 Follicular cyst of the skin and Fawn Benson, RODRIGO subcutaneous tissue, unspecified 08/12/2019 N18.3 Chronic kidney disease, stage 3 Fawn Benson NP (moderate) 08/12/2019 N17.9 Acute kidney failure, unspecified Capri Connolly M.D. 08/12/2019 I89.0 Lymphedema, not elsewhere classified Fawn Benson NP 08/12/2019 I48.0 Paroxysmal atrial fibrillation Capri Connolly [...] disease of Capri Connolly M.D. [place] coronary artery without angina pectoris 08/10/2019 I89.0 Lymphedema, not elsewhere classified Fawn Benson NP 08/09/2019 R94.31 Abnormal electrocardiogram [ECG] Zack Francis M.D. [EKG] 08/09/2019 M71.061 Abscess of bursa, right knee Mario Monet RPA- Rachael 08/09/2019 N17.9 Acute kidney failure, unspecified Capri Connolly M.D. 08/09/2019 M71.061 Abscess of bursa, right knee Bryson Umana M.D. 08/09/2019 I48.0 Paroxysmal atrial fibrillation Capri Connolly M.D. 08/09/2019 M71.061 Abscess of bursa, right knee Bryson Umana M.D. 08/09/2019 I25.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 Capri Connolly M.D. [place] coronary artery without angina pectoris 08/08/2019 N17.9 Acute kidney failure, unspecified Renetta Banegas, [employer]CHIT[employer] 08/08/2019 M71.21 Synovial cyst of popliteal space Renetta Banegas NP [[place]], right knee 08/08/2019 I12.9 Hypertensive chronic kidney disease Renetta Banegas NP with stage 1 through stage 4 chronic kidney disease, or unspecified chronic kidney disease 08/08/2019 N18.9 Chronic kidney disease, unspecified Renetta Banegas, [employer] ARCHITECT 08/08/2019 I48.0 Paroxysmal atrial fibrillation Renetta Banegas, RODRIGO 08/08/2019 F41.8 Other specified anxiety disorders Renetta Banegas, RODRIGO 08/08/2019 G25.0 Essential tremor Renetta Banegas, RODRIGO 05/25/2019 M19.042 Primary osteoarthritis, left hand Bryson Mcgarry MD 05/25/2019 M19.041 Primary osteoarthritis, right hand Bryson Mcgarry MD 05/11/2019 D64.89 Other specified anemias Avinash Romero M.D. 05/06/2019 G25.0 Essential tremor Jaziel Hurst M.D. 05/06/2019 G44.229 Chronic tension-type headache, not Jaziel Hurst M.D. intractable 05/06/2019 I20.8 Other forms of angina pectoris Jaziel Hurst M.D. 04/23/2019 R60.0 Localized edema You Delgado DO FAC 04/23/2019 I25.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 You Delgado, DO [facility] [place] coronary artery with 04/23/2019 D64.9 Anemia, unspecified You Delgado DO FAC 04/23/2019 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 You Delgado DO [facility] graft 04/23/2019 I48.0 Paroxysmal atrial fibrillation You Delgado DO FACC 04/23/2019 D64.89 Other specified anemias You Delgado DO FAC 04/23/2019 I50.32 Chronic diastolic (congestive) heart You Delgado, DO [facility] failure 04/23/2019 N18.9 Chronic kidney disease, unspecified You Delgado, DO [facility] 04/23/2019 G25.0 Essential tremor You Delgado, DO [facility] 04/23/2019 D47.1 Chronic myeloproliferative disease You Delgado, DO [facility] 04/23/2019 I10 Essential (primary) hypertension You Delgado, DO [facility] 04/23/2019 E78.5 Hyperlipidemia, unspecified You Delgado, DO [facility] 04/23/2019 I25.2 Old myocardial infarction You Delgado, DO [facility] 04/23/2019 G47.33 Obstructive sleep apnea (adult) You Delgado [facility] (pediatric) 04/23/2019 Z87.11 Personal history of peptic ulcer You Delgado [facility] disease 04/13/2019 D64.9 Anemia, unspecified Avinash Romero M.D. 04/13/2019 R53.83 Other fatigue Avinash Romero M.D. 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 [place] coronary artery with 04/13/2019 Z95.1 Presence of [...] Pain in right shoulder Marisela Driver M.D. Plan of Treatment Future Appointment(s):10/19/2019 11:30 am - Chaitanya Beltrán M.D. at [facility] Vesgyklu02/11/2020 3:45 pm - Bryson Umana M.D. at [facility] at Qnqgtjav99/31/2020 3:00 pm - Martine Landers NP at [facility] [address]11/18/2019 3:45 pm - Lincoln Norman MD at [facility] [address] Dermatology AT Slvpgxtw29/04/2020 12:30 pm - Nelli Willett MD at [facility] [address]09/17/2019 - Fawn Benson, NPL02.415 Cutaneous abscess of right lower limbComments:Please call the office for return of redness or swelling of the right leg.Follow up:3-4 luiisY56.2 Enterococcus as the cause of diseases classified jqqcehrnuH93.22 Resistance to vancomycin related antibiotics Functional Status Description No Information Available Mental Status Description No Information Available Referrals Description No Information Available
--- OUTSIDE RECORDS SUMMARY | 2019-10-11 19:54 | XMS REPORT | Continuity of Care Document ---
:1940 External Reference #:[id number] Author Name Narcisa Reis PA-C (transmitted by agent of provider Pauline Pelaez) Address [address] [place] [address] Care Team Providers Name Role Phone Roger Giron MD - Internal Care Team Information Training Project Manager [phone] Medicine Veronica Glez FNP - Family Care Team Information Training Project Manager Manas Villeda MD - Family Care Team Information Training Project Manager [phone] Medicine Estelita Brown MD - Vascular Surgery Care Team Information Training Project Manager [phone] Arnold Holguin MD - Hospitalist Care Team Information Training Project Manager [phone] Problems Active Problems Provider Date Restless legs Jaziel Hurst M.D. Onset: 04/06/2015 Dyspnea Sharon Peter MD Onset: 06/10/2016 Asthma without status asthmaticus Sharon Peter MD Onset: 06/10/2016 Disturbance in sleep behavior Sharon Peter MD Onset: 06/10/2016 Morbid obesity Sharon Peter MD Onset: 06/10/2016 Encounter for planned postprocedural Bennie Herron M.D., [facility], [facility] Onset: wound closure Angina pectoris Bryson Steiner M.D. Onset: 01/21/2018 Atrial fibrillation Bryson Steiner M.D. Onset: 01/21/2018 Obstructive sleep apnea syndrome Bryson Steiner M.D. Onset: 01/21/2018 Chronic kidney disease Bryson Steiner M.D. Onset: 01/21/2018 Chronic respiratory failure rByson Steiner M.D. Onset: 01/21/2018 Impending infarction Bryson Steiner M.D. Onset: 01/21/2018 Anemia Yuval Marshall M.D. Onset: 01/22/2018 Paroxysmal atrial fibrillation Lennox Singh M.D. Onset: 01/23/2018 Chronic kidney disease stage 3 Lennox Singh M.D. Onset: 01/23/2018 Gastric ulcer without hemorrhage, Lennox Singh M.D. 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 Onset: 01/25/2018 Chest pain Shanda Gregory D.O. Onset: 01/31/2018 Hypothyroidism Shanda Gregory D.OKandi Onset: 01/31/2018 Chronic diastolic heart failure Shanda Gregory D.OKandi Onset: 02/01/2018 Hypertensive heart and chronic kidney Shanda Greogry D.O. Onset: 02/01/2018 disease with heart failure [...] disease of Arnold Holguin MD Onset: 07/07/2018 [place] coronary artery with unspecified angina pectoris Localized, primary osteoarthritis Marisela Driver M.D. Onset: 04/12/2019 Abscess of bursa of right knee Saw Vaca MD Onset: 08/25/2019 Cellulitis of knee Saw Vaca MD Onset: 08/25/2019 Social History Type Date Description Comments Sex Unknown Tobacco Use Start: Unknown Never Smoked Cigarettes Smoking Status Reviewed: 09/29/19 Never Smoked Cigarettes ETOH Use Rarely consumes [...] 90tabs You SKandi 07/23/2018 200mg every day Danny, DO FACC Tablets Torsemide As directed by 90tabs You SKandi 07/23/2018 20mg Tablets Vascular Ultrasound Technician Danny, DO FACC Plavix take one tablet by 90tabs You SKandi 02/27/2018 75mg Tablets mouth daily Danny, DO FACC Ezetimibe take one tablet 90tabs E78.5 You SKandi 06/27/2017 10mg Tablets daily, generic if Delgado, DO FACC available Oxygen please use o2 at 1units R09.02 Sharon Whippleali, 08/15/2016 Misc 2l/min with exertion. pls provide pt with light wt conserving device for o2 Breo Ellipta 1 puff inhaled Feli daily BALWINDER Oliva, RN, 100-25mcg/Inh Aerosol FIRE EQUIPMENT OPERATOR-BC Shark Cartilage 2 by mouth [...] take 2 at bedtime Amaris, Dihydrochloride Veronica, FIRE EQUIPMENT OPERATOR 1mg Tablets Cephalexin Take 1 Capsule By Unknown 500mg Mouth Twice Daily Capsules For 7 Days Nystop Amaris, 005970Jbip/GM Veronica, FIRE EQUIPMENT OPERATOR Powder Ventolin HFA 2 puffs by mouth [...] Capsules Doxycycline Take one 10caps M71.061 Mp You 08/16/2019 - Monohydrate capsule every MD Leighton [...] Technetium TC 99M You Delgado, DO [facility] 03/25/2018 Tetrofosmin, Per Unit Dose Up To 40 Millicuries Injection Immunizations CPT Code Status Date Vaccine Lot # [id number] Given 06/28/1997 Flu Vaccine Vital Signs Date Vital Result Comment 09/29/2019 2:50pm Height 60 inches 5'0" Heart Rate 76 /min BP Systolic 132 mmHg BP Diastolic 70 mmHg Respiratory Rate 18 /min Pain Level 0 O2 % BldC Oximetry 98 % 09/17/2019 1:08pm Height 60 inches 5'0" Weight 230.00 lb per pt Heart Rate 60 /min BP Systolic Sitting 128 mmHg BP Diastolic Sitting 60 mmHg Respiratory Rate 14 /min Body Temperature 97.3 F BMI (Body Mass Index) 44.9 kg/m2 Results Test Acquired Date Facility Test Result H/L Range Note CBC Auto 09/15/2019 [facility] White Blood 5.6 10^3/uL Normal 3.5-10.[address] [place] [address] [phone] Red Blood Count 3.05 10^6/uL Low 3.70-4.87 [...] Blood Cells % 0.0 Comp Metabolic 09/15/2019 [facility] Sodium 139 mmol/L Normal 135-[address] [place] [address] [phone] Potassium 4.3 mmol/L Normal 3.5-5.0 Chloride 105 [...] Egfr 45.4 >60 2 Laboratory test 09/15/2019 [facility] C Reactive 7.71 mg/L Normal <8.01 [address] [place] [address] [phone] Laboratory test 08/08/2019 [facility] Legionella SEE RESULT [address] [place] [address] [phone] Influenza A & B 08/08/2019 [facility] Flu AB (SEE NOTE) [address] [place] [address] [phone] Influenza A Molecular NEGATIVE Negative Influenza B Molecular NEGATIVE Negative 6 Laboratory test 08/08/2019 [facility] Lactic Acid 1.3 mmol/L Normal 0.5-2.0 [address] [place] [address] [phone] CBC Auto Diff 08/08/2019 [facility] White Blood 10.9 High 3.5- 10.[address] Count 10^3/[place] [address] [phone] Red Blood Count 3.12 10^6/uL Low 3.70-4.87 [...] Blood Cells % 0.0 Basic Metabolic 08/08/2019 [facility] Sodium 133 mmol/L Low 135-[address] [place] [address] [phone] Potassium 4.1 mmol/L Normal 3.5-5.0 Chloride 97 mmol/L Low 101-111 Co2 Carbon Dioxide 24 mmol/L Normal 22-32 Anion Gap 12 mmol/L High 2-11 Glucose 180 mg/dL High 70-100 Blood Urea Nitrogen 59 mg/dL High 6-24 Creatinine 2.49 mg/dL High 0.51-0.95 BUN/Creatinine Ratio 23.7 High 8-20 Calcium 9.0 mg/dL Normal 8.6-10.3 Egfr Non- 18.7 >60 Egfr 22.6 >60 8 Laboratory test 08/08/2019 [facility] C Reactive 177.86 mg/L High <8.[address] [place] [address] [phone] Urinalysis 08/08/2019 [facility] Urine Color Yellow Profile [address] [place] [address] [phone] Urine Appearance Clear Urine Specific [place] 1.014 Normal 1.010-1.030 Urine pH 5.0 Normal [...] Casts Present Abnormal Absent Laboratory test 08/08/2019 [facility] Erythrocyte Sed 72 mm/Hr High 0-[address] [place] [address] [phone] Urine Culture And 08/08/2019 [facility] Urine Culture SEE RESULT [address] [place], [place] [id number] [phone] Laboratory test 08/08/2019 [facility] Blood Culture SEE RESULT [address] [place] [address] [phone] 1 [id number] 2 Because ethnic data is not always [...] 5 Kidney failure <15 (or dialysis) 3 [id number] 4 SEE RESULT BELOW Name: JOCELYNE MARTIN : [address]: Que Jay MD Acct: [id number] Unit: [id number] AGE: 78 Location: ED Re08/08/19 SEX: F Status: REG ER SPEC: [id number] OSCAR: 08/08/[address] [facility] [address]: Renetta Pagan NP REQ: [id number] RECD: 08/08/19 STATUS: FRANKI DE JESUS DR: [...] END OF REPORT DEPARTMENT OF PATHOLOGY, [address] [place] [address] Ramos Durand M.D. Director [facility] # [id number] 5 Suboptimal collection technique may reduce sensitivity of test. Refer to the [facility] Test Catalog for collection information: [email or web address] As with all diagnostic procedures, the laboratory results obtained should be used in conjunction with other clinical information available to the physician, including confirmation by another method, as applicable. 6 Dependency Program Director: [id number] 7 [facility] Severe Sepsis and Septic Shock Management [...] 10 SEE RESULT BELOW Name: JOCELYNE MARTIN Rafaela : [address]: Capri Elliott MD Acct: [id number] Unit: [id number] AGE: 78 Location: [address] Re08/09/19 SEX: F Status: ADM IN SPEC: [id number] OSCAR: 08/08/[address] [facility] [address]: Que Jay MD REQ: [id number] RECD: 08/08/19 STATUS: FRANKI DE JESUS DR: You Bains MD _ SOURCE: URINE SPDESC: ORDERED: Urine Culture Procedure Result Reported Site Urine Culture Final 08/09/19- 1400 ML No Growth (<1,000 CFU/mL) * ML - Main Lab . END OF REPORT DEPARTMENT OF PATHOLOGY, [address] [place] [address] Ramos Durand M.D. Director [facility] # [id number] 11 SEE RESULT BELOW Name: JOCELYNE MARTIN : [address]: Capri Elliott MD Acct: [id number] Unit: [id number] AGE: 78 Location: [place] [address]- Re08/09/19 Dis: 08/13/19 SEX: F Status: DIS IN SPEC: [id number] OSCAR: 08/08/[address] [facility] [address]: Que Jay MD REQ: [id number] RECD: 08/08/19 STATUS: COMP OTHR DR: You Bains MD _ SOURCE: BLOOD,VENO SPDESC: ORDERED: Blood Cult Procedure Result Reported Site Aerobic Culture Bottle Final 08/13/19- 8 ML No Growth Day 5 Anaerobic Culture Bottle Final 08/13/19- 8 ML No Growth Day 5 * ML - Main Lab . END OF REPORT DEPARTMENT OF PATHOLOGY, [address] [place] [address] Ramos Durand M.D. Director [facility] # [id number] Procedures Date Code Description Status 09/16/2019 12954 Negative Pressure Wound Therapy Less Than 50 Square CM Completed 09/06/2019 88142 Negative Pressure Wound Therapy Greater Than 50CM Completed 09/06/2019 05683 Negative Pressure Wound Therapy Greater Than 50CM Completed 09/02/2019 54850 Negative Pressure Wound Therapy Less Than 50 Square CM Completed 09/02/2019 87848 Negative Pressure Wound Therapy Less Than 50 Square CM Completed 09/02/2019 50208 Secondary Closure Of Surgical Wound Or Dehiscence Completed Extensive Or Co 09/02/2019 76614 Secondary Closure Of Surgical Wound Or Dehiscence Completed Extensive Or Co 09/02/2019 65134 Debridement Completed Muscle/Fascia,Epidermis/Dermis/Tissue,Addtl 20 SQ CM 09/02/2019 57171 Debridement Completed Muscle/Fascia,Epidermis/Dermis/Tissue,Addtl 20 SQ CM 09/02/2019 53629 Debridement Completed Muscle/Fascia,Epidermis/Dermis/Tissue,Addtl 20 SQ CM 09/02/2019 34411 Debridement Skin, Subcutaneous Tissue & Muscle Completed 09/02/2019 21119 Debridement Skin, Subcutaneous Tissue & Muscle Completed 08/30/2019 39434 Negative Pressure Wound Therapy Less Than 50 Square CM Completed 08/30/2019 11810 Negative Pressure Wound Therapy Less Than 50 Square CM Completed 08/28/2019 45401 Negative Pressure Wound Therapy Greater Than 50CM Completed 08/28/2019 68547 Debridement Completed Muscle/Fascia,Epidermis/Dermis/Tissue,Addtl 20 SQ CM 08/28/2019 82933 Debridement Skin, Subcutaneous Tissue & Muscle Completed 08/25/2019 02329 Debridement Skin, Subcutaneous Tissue & Muscle Completed 08/25/2019 63011 Debridement Skin, Subcutaneous Tissue & Muscle Completed 08/25/2019 21070 Debridement Completed Muscle/Fascia,Epidermis/Dermis/Tissue,Addtl 20 SQ CM 08/25/2019 88323 Debridement Completed Muscle/Fascia,Epidermis/Dermis/Tissue,Addtl 20 SQ CM 08/25/2019 47993 Debridement Completed Muscle/Fascia,Epidermis/Dermis/Tissue,Addtl 20 SQ CM 08/25/2019 40084 Debridement Completed Muscle/Fascia,Epidermis/Dermis/Tissue,Addtl 20 SQ CM 08/25/2019 31796 Debridement Completed Muscle/Fascia,Epidermis/Dermis/Tissue,Addtl 20 SQ CM 08/25/2019 60471 Debridement Completed Muscle/Fascia,Epidermis/Dermis/Tissue,Addtl 20 SQ CM 08/25/2019 81587 Debridement Completed Muscle/Fascia,Epidermis/Dermis/Tissue,Addtl 20 SQ CM 08/25/2019 12259 Debridement Completed Muscle/Fascia,Epidermis/Dermis/Tissue,Addtl 20 SQ CM 08/25/2019 78757 Debridement Completed Muscle/Fascia,Epidermis/Dermis/Tissue,Addtl 20 SQ CM 08/25/2019 76650 Negative Pressure Wound Therapy Greater Than 50CM Completed 08/25/2019 49446 Negative Pressure Wound Therapy Greater Than 50CM Completed 08/25/2019 46780 Negative Pressure Wound Therapy Greater Than 50CM Completed 08/09/2019 29010 EKG, Interpretation Only Completed 08/09/2019 39842 Excision Tumor Soft Tissue Thigh/Knee Subcutaneous, 3 Completed CM Or > 08/09/2019 37467 Excision Tumor Soft Tissue Thigh/Knee Subcutaneous, 3 Completed CM Or > 05/25/2019 49840 Inject/Drain Joint/Bursa Small W/O US Completed 05/25/2019 44403 Inject/Drain Joint/Bursa Small W/O US Completed 04/23/2019 47408 EKG Tracing & Interpretation Completed 08/06/2016 [id number] Diabetic Retinal Eye Exam Completed Medical Devices Description No Information Available Encounters Type Date Location Provider Dx Diagnosis Office Visit 09/17/2019 [facility] Fawn Richard L02.415 Cutaneous 1:00p Infectious Benson, UNIF[employer]MS SALES REPRESENTATIVE abscess of right Diseases lower limb B95.2 Enterococcus as the cause of diseases classified elsewhere Z16.22 Resistance to vancomycin related antibiotics Office Visit 09/09/2019 [facility] Richard L02.415 Cutaneous 8:25a For Infectious Benson, UNIFORMS SALES REPRESENTATIVE abscess of Diseases right lower limb B95.2 Enterococcus as the cause of diseases classified elsewhere Z16.22 Resistance to vancomycin related antibiotics N18.3 Chronic kidney disease, stage 3 (moderate) Office Visit 09/09/2019 10:03a [facility] Narcisa L02.415 Cutaneous Assoc,carli Reis, PASamiaC abscess of Hospitalists right lower limb B95.2 Enterococcus as the cause of diseases classified elsewhere 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 I50.32 Chronic diastolic (congestive) heart failure N17.9 Acute kidney failure, unspecified N18.9 Chronic kidney disease, unspecified I48.91 Unspecified atrial fibrillation Office Visit 09/08/2019 [facility] Fawn Richard L02.415 Cutaneous 8:24a For Infectious Benson, UNIF[employer]MS SALES REPRESENTATIVE abscess of Diseases right lower limb B95.2 Enterococcus as the cause of diseases classified elsewhere Z16.22 Resistance to vancomycin related antibiotics N18.3 Chronic kidney disease, stage 3 (moderate) Office Visit 09/08/2019 10:01a [facility] Narcisa N39.0 Urinary tract Assoc,pc Chato, PA-C infection, site Hospitalists not specified B96.20 Unsp Escherichia coli as the cause of diseases classd elswhr 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 I50.32 Chronic diastolic (congestive) heart failure N18.9 Chronic kidney disease, unspecified I48.91 Unspecified atrial fibrillation Office Visit 09/07/2019 [facility] L02.415 Cutaneous 8:23a For Infectious Benson, UNIF[employer]MS SALES REPRESENTATIVE abscess of Diseases right lower limb B95.2 Enterococcus as the cause of diseases classified elsewhere Z16.22 Resistance to vancomycin related antibiotics N18.3 Chronic kidney disease, stage 3 (moderate) Office Visit 09/07/2019 10:00a [facility] Narcisa 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 Assoc,carli Reis PA-C kdny dis w hrt Hospitalists fail and stg 1-4/unsp chr kdny I50.32 Chronic diastolic (congestive) heart failure N18.9 Chronic kidney disease, unspecified Office Visit 09/06/2019 [facility] L02.415 Cutaneous 8:22a For Infectious Benson, UNIFORMS SALES REPRESENTATIVE abscess of Diseases right lower limb B95.2 Enterococcus as the cause of diseases classified elsewhere Z16.22 Resistance to vancomycin related antibiotics N18.3 Chronic kidney disease, stage 3 (moderate) Office Visit 09/06/2019 10:00a [facility] Narcisa 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 Assoc,carli Reis PA-C kdny dis w hrt Hospitalists fail and stg 1-4/unsp chr kdny I50.32 Chronic diastolic (congestive) heart failure N18.9 Chronic kidney disease, unspecified 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 Assoc,carli Crowley DO kdny dis w hrt Hospitalists fail and stg 1-4/unsp chr kdny I50.32 Chronic diastolic (congestive) heart failure N18.3 Chronic kidney disease, stage 3 (moderate) Office Visit [facility]04[facility]2019 [facility] I48.91 Unspecified atrial 9:58a Assoc,carli Crowley DO fibrillation Hospitalists G89.29 Other chronic pain N18.3 Chronic kidney disease, stage 3 (moderate) Office Visit 09/03/2019 [facility] Luisa I48.91 Unspecified atrial 9:56a Assoc,carli Crowley DO fibrillation Hospitalists N18.3 Chronic kidney disease, stage 3 (moderate) Office Visit 09/03/2019 [facility] L02.415 Cutaneous 9:41a For Infectious Benson, UN[employer]MS SALES REPRESENTATIVE abscess of Diseases right lower limb N18.3 Chronic kidney disease, stage 3 (moderate) B95.2 Enterococcus as the cause of diseases classified elsewhere Z16.22 Resistance to vancomycin related antibiotics Office Visit 09/02/2019 9:56a [facility] Daniela Lopez, G89.29 Other chronic Assoc,carli Ching pain Hospitalists I48.91 Unspecified atrial fibrillation N18.3 Chronic kidney disease, stage 3 (moderate) Office Visit 09/01/2019 [facility] L02.415 Cutaneous 9:40a For Infectious Benson, UNIFORMS SALES REPRESENTATIVE abscess of Diseases right lower limb N18.3 Chronic kidney disease, stage 3 (moderate) B95.2 Enterococcus as the cause of diseases classified elsewhere Z16.22 Resistance to vancomycin related antibiotics [facility] atrial 9:55a Assoc,carli Gregory D.O. 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 I50.32 Chronic diastolic (congestive) heart failure N18.3 Chronic kidney disease, stage 3 (moderate) Office Visit 08/31/2019 [facility] L02.415 Cutaneous 9:36a For Infectious Benson, UNIFORMS SALES REPRESENTATIVE abscess of Diseases right lower limb N18.3 Chronic kidney disease, stage 3 (moderate) B95.2 Enterococcus as the cause of diseases classified elsewhere Z16.22 Resistance to vancomycin related antibiotics Office Visit 08/31/2019 [facility] Narcisa I48.91 Unspecified atrial 9:54a Assoc,pc ALISE ReisC 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 I50.32 Chronic diastolic (congestive) heart failure N18.3 Chronic kidney disease, stage 3 (moderate) Office Visit 08/30/2019 9:38a [facility] Seymour Forte L02.415 Cutaneous Infectious Jeane Beltrán abscess of Diseases right lower limb N18.9 Chronic kidney disease, unspecified B95.2 Enterococcus as the cause of diseases classified elsewhere Z16.22 Resistance to vancomycin related antibiotics Office Visit 08/30/2019 [facility] I48.91 Unspecified atrial 9:54a Assoc,pc Cassia Gregory 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 I50.32 Chronic diastolic (congestive) heart failure G89.29 Other chronic pain N18.3 Chronic kidney disease, stage 3 (moderate) E66.01 Morbid (severe) obesity due to excess calories Office Visit 08/29/2019 9:53a [facility] Arnold Holguin MD M79.674 Pain in right Assoc,pc toe(s) Hospitalists G89.29 Other chronic pain G25.81 Restless legs syndrome N18.3 Chronic kidney disease, stage 3 (moderate) Office Visit 08/28/2019 9:53a [facility] Arnold Holguin, I48.0 Paroxysmal atrial Assoc,pc fibrillation Hospitalists G89.29 Other chronic pain N18.3 Chronic kidney disease, stage 3 (moderate) E66.01 Morbid (severe) obesity due to excess calories Office Visit 08/27/2019 9:52a [facility] I48.0 Paroxysmal atrial Assoc,carli Marshall M.D. fibrillation Hospitalists G89.29 Other chronic pain E66.01 Morbid (severe) obesity due to excess calories D64.9 Anemia, unspecified Office Visit 08/27/2019 [facility] Fawn Ramos L02.415 Cutaneous 9:33a For Infectious Kelley, [employer] SALES REPRESENTATIVE abscess of Diseases right lower limb N18.3 Chronic kidney disease, stage 3 (moderate) B95.2 Enterococcus as the cause of diseases classified elsewhere Office Visit 08/26/2019 9:52a [facility] I48.0 Paroxysmal atrial Assoc,carli Marshall M.D. fibrillation Hospitalists G89.29 Other chronic pain Office Visit 08/26/2019 [facility] Seymour Forte L02.415 Cutaneous abscess 9:33a Umair Beltrán M.D. of right lower Diseases limb Office Visit 08/25/2019 [facility] I48.0 Paroxysmal atrial 9:52a Assoc,carli Marshall M.D. fibrillation Hospitalists G89.29 Other chronic pain N18.9 Chronic kidney disease, unspecified Office Visit 08/25/2019 9:32a [facility] Seymour Forte L02.415 Cutaneous Infectious Jeane Beltrán abscess of Diseases right lower limb N18.9 Chronic kidney disease, unspecified Office Visit 08/24/2019 9:51a [facility] I48.0 Paroxysmal atrial Assoc,carli Marshall M.D. fibrillation Hospitalists L08.9 Local infection of the skin and subcutaneous tissue, unsp G89.29 Other chronic pain G47.33 Obstructive sleep apnea (adult) (pediatric) N18.9 Chronic kidney disease, unspecified Office Visit 08/24/2019 9:30a [facility] Chaitanya Forte L02.415 Cutaneous Infectious Jeane Beltrán abscess of Diseases right lower limb N18.3 Chronic kidney disease, stage 3 (moderate) Office Visit 08/13/2019 9:[facility]a [facility] N17.9 Acute kidney Assoc,carli Connolly M.D. failure, Hospitalists unspecified M25.561 Pain in right knee L03.115 Cellulitis of right lower limb I48.0 Paroxysmal atrial fibrillation E66.01 Morbid (severe) obesity due to excess calories Office Visit 08/12/2019 9:08a [facility] N17.9 Acute kidney Assoc,carli Connolly M.D. failure, Hospitalists unspecified I48.0 Paroxysmal atrial fibrillation Office Visit 08/12/2019 [facility] Fawn Ramos L72.9 Follicular cyst of 1:29p For Infectious Benson, [employer] SALES REPRESENTATIVE the skin and Diseases subcutaneous tissue, unsp N18.3 Chronic kidney disease, stage 3 (moderate) I89.0 Lymphedema, not elsewhere classified Office Visit 08/11/2019 9:04a [facility] Chaitanya Forte L72.9 Follicular cyst of For Umair Beltrán M.D. the skin and Diseases subcutaneous tissue, unsp M25.561 Pain in right knee Office Visit 08/11/2019 9:08a [facility] N17.9 Acute kidney Assoc,carli Connolly M.D. failure, Hospitalists unspecified I48.0 Paroxysmal atrial fibrillation Office Visit 08/10/2019 [facility] Fawn Ramos L03.115 Cellulitis of 9:03a For Infectious Benson, [employer] SALES REPRESENTATIVE right lower limb Diseases N18.3 Chronic kidney disease, stage 3 (moderate) I89.0 Lymphedema, not elsewhere classified Office Visit 08/10/2019 9:07a [facility] N17.9 Acute kidney Assoc,carli Connolly M.D. failure, Hospitalists unspecified I48.0 Paroxysmal atrial fibrillation 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[place] coronary artery w/o ang pctrs Office Visit 08/09/2019 9:07a [facility] N17.9 Acute kidney Assoc,carli Connolly M.D. failure, Hospitalists unspecified I48.0 Paroxysmal atrial fibrillation 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[place] coronary artery w/o ang pctrs Office Visit 08/09/2019 [facility] Bryson M71.061 Abscess of bursa, 12:10p at [place] Umana M.D. 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, right hand Office Visit 05/11/2019 3:00p [place] [facility] Avinash Romero, D64.89 Other specified [facility] AT Jeane anemias [place] Office Visit 05/06/2019 3:45p Jose Rafael/Laurie Duggan G25.0 Essential tremor Neurologic Serv Jeane [facility] G44.229 Chronic tension-type headache, not intractable I20.8 Other forms of angina pectoris Office Visit 04/23/2019 11:15a Cardiology You Duggan R60.0 Localized edema [facility] AT [facility] FACC 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[place] coronary artery w/o ang pctrs D64.9 Anemia, [...] peptic ulcer disease Office Visit 04/13/2019 3:00p [place] [facility] Avinash Romero, D64.9 Anemia, [facility] R[facility].83 Other fatigue 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[place] coronary artery w/o ang pctrs 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 graft Office Visit 04/12/2019 3:15p [place] [facility] Marisela Villa, M25.562 Pain in left at [facility].. knee M25.561 Pain in right knee M25.462 Effusion, left knee M25.461 Effusion, right knee M17.0 Bilateral primary osteoarthritis of knee M25.511 Pain in right shoulder Assessments Date Code Description Provider 09/29/2019 L02.415 Cutaneous abscess of right lower Bryson Umana M.D. limb 09/29/2019 Z48.89 Encounter for other specified Bryson Umana M.D. surgical aftercare 09/17/2019 L02.415 Cutaneous abscess of right lower [...] Cutaneous abscess of right lower Fawn Benson , [employer] limb 09/09/2019 L02.415 Cutaneous abscess of right lower Narcisa O'cortez, PA-C limb 09/09/2019 B95.2 Enterococcus as the cause of Fawn Benson, [employer] diseases classified elsewhere 09/09/2019 Z48.89 Encounter for other specified PHYLLIS Beltran surgical aftercare 09/09/2019 Z16.22 Resistance to vancomycin related Fawn Richard Benson NP antibiotics 09/09/2019 B95.2 Enterococcus as the cause of Narcisa O'cortez, PA-C diseases classified elsewhere 09/09/2019 N18.3 Chronic kidney disease, stage 3 Fawn Ramos RODRIGO Benson (moderate) 09/09/2019 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'cortez, [...] Cutaneous abscess of right lower Fawn Ramos RODRIGO Benson limb 09/08/2019 N39.0 Urinary tract infection, site not Narcisa O'cortez, PA-C specified 09/08/2019 B95.2 Enterococcus as the cause of Fawn Ramos Kelley [employer] diseases classified elsewhere 09/08/2019 Z48.89 Encounter for other specified PHYLLIS Beltran surgical aftercare 09/08/2019 Z16.22 Resistance to vancomycin related Fawn Richard Benson NP antibiotics 09/08/2019 B96.20 Unspecified Escherichia coli [E. Narcisa O'cortez, PA-C coli] as the cause of diseases classified elsewhere 09/08/2019 N18.3 Chronic kidney disease, stage 3 Fawn Pedersenlurdesmitesh RODRIGO Benson (moderate) 09/08/2019 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 [...] L02.415 Cutaneous abscess of right lower Fawn Pedersenlurdesjoshlev Benson , RODRIGO limb 09/07/2019 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'cortez, PA-C kidney disease with heart failure and stage 1 through stage 4 chronic kidney disease, or unspecified chronic kidney disease 09/07/2019 B95.2 Enterococcus as the cause of Fawn Richard Benson NP diseases classified elsewhere 09/07/2019 I50.32 Chronic diastolic (congestive) heart Narcisa O'cortez, PA-C failure 09/07/2019 Z16.22 Resistance to vancomycin related Fawn Benson NP antibiotics 09/07/2019 N18.9 Chronic kidney disease, unspecified Narcisa O'cortez, PA-C 09/07/2019 N18.3 Chronic kidney disease, stage 3 Fawn Richard Benson NP (moderate) 09/06/2019 L02.415 Cutaneous abscess of right lower Fawn Pedersenlurdesjoshlev Benson , [employer]IVE limb 09/06/2019 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'cortez, PA-C kidney disease with heart failure and stage 1 through stage 4 chronic kidney disease, or unspecified chronic kidney disease 09/06/2019 B95.2 Enterococcus as the cause of Fawn Richard Benson NP diseases classified elsewhere 09/06/2019 I50.32 Chronic diastolic (congestive) heart Narcisa O'cortez, PA-C failure 09/06/2019 Z16.22 Resistance to vancomycin related Fawn Benson NP antibiotics 09/06/2019 N18.9 Chronic kidney disease, unspecified Narcisa Reis PA-C 09/06/2019 N18.3 Chronic kidney disease, stage 3 Fawn Benson NP (moderate) 09/05/2019 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 Luisa Senner, DO kidney disease with heart failure and stage 1 through stage 4 chronic kidney disease, or unspecified chronic kidney disease 09/05/2019 Z48.89 Encounter for other specified DIONNE Charlton surgical aftercare 09/05/2019 I50.32 Chronic diastolic (congestive) heart Luisa Senner, DO failure 09/05/2019 N18.3 Chronic kidney disease, stage 3 Luisa Senner, DO (moderate) 09/04/2019 I48.91 Unspecified atrial fibrillation Luisa Senner, DO 09/04/2019 G89.29 Other chronic pain Luisa Senner, DO 09/04/2019 N18.3 Chronic kidney disease, stage 3 Luisa Senner, DO (moderate) 09/03/2019 I48.91 Unspecified atrial fibrillation Luisa Senner, DO 09/03/2019 L02.415 Cutaneous abscess of right lower Fawn Benson NP limb 09/03/2019 N18.3 Chronic kidney disease, stage 3 Luisa Senner, DO (moderate) 09/03/2019 N18.3 Chronic kidney disease, stage 3 Fawn Benson NP (moderate) 09/03/2019 B95.2 Enterococcus as the cause of Fawn Benson NP diseases classified elsewhere 09/03/2019 Z16.22 Resistance to vancomycin related Fawn Benson NP antibiotics 09/02/2019 G89.29 Other chronic pain Daniela Lopez M.D. 09/02/2019 S81.001A Unspecified open wound, right knee, ADELAIDA Mooney initial encounter 09/02/2019 I48.91 Unspecified atrial fibrillation Daniela Lopez M.D. 09/02/2019 S81.001A Unspecified open wound, right knee, Saw Vaca MD initial encounter 09/02/2019 N18.3 Chronic kidney disease, stage 3 Daniela John, M.D. (moderate) 09/01/2019 I48.91 Unspecified atrial fibrillation Shanda Gregory D.O. 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 kidney disease with heart failure and stage 1 through stage 4 chronic kidney disease, or unspecified chronic kidney disease 09/01/2019 L02.415 Cutaneous abscess of right lower Fawnjennifer Benson , [employer]IVE limb 09/01/2019 I50.32 Chronic diastolic (congestive) heart Shanda Gregory D.O. failure 09/01/2019 Z48.89 Encounter for other specified PHYLLIS Beltran surgical aftercare 09/01/2019 N18.3 Chronic kidney disease, stage 3 Shanda Gregory D.O. (moderate) 09/01/2019 N18.3 Chronic kidney disease, stage 3 Fawn Benson NP (moderate) 09/01/2019 B95.2 Enterococcus as the cause of Fawn Benson NP diseases classified elsewhere 09/01/2019 Z16.22 [...] L02.415 Cutaneous abscess of right lower Fawn Benosn , [employer] limb 08/31/2019 I50.32 Chronic diastolic (congestive) heart [...] Fawn Richard Benson NP diseases classified elsewhere 08/31/2019 L03.115 Cellulitis of right lower limb Saw Vaca MD 08/31/2019 Z16.22 Resistance to vancomycin related Fawn Benson NP antibiotics 08/30/2019 I48.91 Unspecified atrial fibrillation Ivanna Palomo.O. 08/30/2019 L02.415 Cutaneous abscess of right lower Chaitanya Beltrán M.D. 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 kidney disease with heart failure and stage 1 through stage 4 chronic kidney disease, or unspecified chronic kidney disease 08/30/2019 M71.061 Abscess of bursa, right knee DIONNE Charlton C 08/30/2019 I50.32 Chronic diastolic (congestive) heart Reanna PalomoO. failure 08/30/2019 N18.9 Chronic kidney disease, unspecified Chaitanya Beltrán M.D. 08/30/2019 G89.29 Other chronic pain Shanda Gregory D.O. 08/30/2019 M71.061 Abscess of bursa, right knee Bryson Umana M.D. 08/30/2019 N18.3 Chronic kidney disease, stage 3 Reanna PalomoOKandi (moderate) 08/30/2019 B95.2 Enterococcus as the cause of Chaitanya Beltrán M.D. diseases classified elsewhere 08/30/2019 E66.01 Morbid (severe) obesity due to Ivanna Palomo.Ruben. excess calories 08/30/2019 L03.115 Cellulitis of right lower limb Mario Monet RPA-C 08/30/2019 Z16.22 Resistance to vancomycin related Chaitanya [...] Cutaneous abscess of right lower Chaitanya Reanna Beltrná M.D. 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 04/23/2019 I48.0 Paroxysmal atrial fibrillation Youprimitivo Pollackno, DO FACC 04/23/2019 D64.89 Other specified anemias Youprimitivo Delgado, DO FACC 04/23/2019 I50.32 Chronic diastolic (congestive) heart Youprimitivo Delgado, DO [facility] failure 04/23/2019 N18.9 Chronic kidney disease, unspecified You Delgado, DO FACC 04/23/2019 G25.0 Essential tremor You Delgado, DO FAC 04/23/2019 D47.1 Chronic myeloproliferative disease You Pollackno, DO FACC 04/23/2019 I10 Essential (primary) hypertension Youprimitivo Pollackno, DO FACC 04/23/2019 E78.5 Hyperlipidemia, unspecified Youprimitivo Delgado, DO FACC 04/23/2019 I25.2 Old myocardial infarction You Pollackno, DO FACC 04/23/2019 G47.33 Obstructive sleep apnea (adult) You SKandi Delgado, DO [facility] (pediatric) 04/23/2019 Z87.11 Personal history of peptic ulcer You SKandi Delgado, DO [facility] disease 04/13/2019 D64.9 Anemia, unspecified Avinash Romero M.D. 04/13/2019 R53.83 Other fatigue Avinash Romero M.D. 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 [place] coronary artery with 04/13/2019 Z95.1 Presence of [...] 11:30 am - Chaitanya Beltrán M.D. at [facility]94/31/2020 3:00 pm - Martine Landers NP at [facility]11/18/2019 3:45 pm - Lincoln Norman MD at [facility] Dermatology AT Pimbmdbn55/04/2020 12:30 pm - Nelli Willett MD at [facility]09/29/2019 - Bryson Umana M.D.L02.415 Cutaneous abscess of right lower limbFollow up:Follow up: 2 mvvxdY22.89 Encounter for other specified surgical aftercare Functional Status Description No Information Available Mental Status Description No Information Available Referrals Description No Information Available
--- OUTSIDE RECORDS SUMMARY | 2019-10-11 19:54 | XMS REPORT | Continuity of Care Document ---
:1940 External Reference #:[id number] Author Name Bryson Umana M.D. (transmitted by agent of provider Chyna Harris) Address [address] [place] [id number] Care Team Providers Name Role Phone Roger Giron MD - Internal Care Team Information Hims Coder [phone] Medicine Veronica Glez FNP - Family Care Team Information Hims Coder Manas Villeda MD - Family Care Team Information Hims Coder [phone] Medicine Estelita Brown MD - Vascular Surgery Care Team Information Hims Coder Arnold Holguin MD - Hospitalist Care Team Information Hims Coder [phone] Problems Active Problems Provider Date Restless legs Jaziel Hurst M.D. Onset: 04/06/2015 Dyspnea Sharon Peter MD Onset: 06/10/2016 Asthma without status asthmaticus Sharon Peter MD Onset: 06/10/2016 Disturbance in sleep behavior Sharon Peter MD Onset: 06/10/2016 Morbid obesity Sharon Peter MD Onset: 06/10/2016 Encounter for planned postprocedural Bennie Herron M.D., [facility] Onset: wound closure Angina pectoris Bryson [...] disease of Lennox Singh M.D. 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 Onset: 01/25/2018 Chest pain Shanda Gregory D.O. Onset: 01/31/2018 Hypothyroidism Shanda Gregory D.O. Onset: 01/31/2018 Chronic diastolic heart failure [...] disease of Arnold Holguin MD Onset: 07/07/2018 chilkoot coronary artery with unspecified angina pectoris Localized, [...] by 90tabs You SKandi 07/23/2018 20mg Tablets Hot Die Picker Danny, DO FACC Plavix take one tablet [...] Feli daily BALWINDER Oliva, RN, 100-25mcg/Inh Aerosol SENIOR MANAGER QUALITY ASSURANCE-BC Shark Cartilage 2 by mouth twice Unknown [...] a 180tabs You S. ER day Danny, FACC 25mg Tablets ER 24HR Primidone take 3 tablets 270tabs You S. 50mg Tablets (150 mg) by mouth Danny DO FACC at bedtime Pramipexole take 2 at bedtime Amaris, Dihydrochloride Veronica, SENIOR MANAGER QUALITY ASSURANCE 1mg Tablets Cephalexin Take 1 Capsule By Unknown 500mg Mouth Twice Daily Capsules For 7 Days Nystop Amaris, 478127Zdhz/GM Veronica, SENIOR MANAGER QUALITY ASSURANCE Powder Ventolin HFA 2 puffs by mouth [...] Injection Technetium TC 99M You Delgado, DO [facility] 03/25/2018 Tetrofosmin, Per Unit Dose Up To 40 Millicuries Injection Immunizations CPT Code Status Date Vaccine Lot # [id number] Given 06/28/1997 Flu Vaccine Vital Signs Date [...] Result H/L Range Note CBC Auto 09/15/2019 [facility] White Blood 5.6 10^3/uL Normal 3.5-10.[address] [place] [address] [phone] Red Blood Count 3.05 10^6/uL Low 3.70-4.87 [...] Blood Cells % 0.0 Comp Metabolic 09/15/2019 [facility] Sodium 139 mmol/L Normal 135-[address] [place] [address] [phone] Potassium 4.3 mmol/L Normal 3.5-5.0 Chloride 105 [...] Egfr 45.4 >60 2 Laboratory test 09/15/2019 [facility] C Reactive 7.71 mg/L Normal <8.01 [address] [place] [address] [phone] Laboratory test 08/08/2019 [facility] Legionella SEE RESULT [address] [place] [address] [phone] Influenza A & B 08/08/2019 [facility] Flu AB (SEE NOTE) [address] Disclaimer GABRIELE Schultz [phone] Influenza A Molecular NEGATIVE Negative Influenza B Molecular NEGATIVE Negative 6 Laboratory test 08/08/2019 [facility] Lactic Acid 1.3 mmol/L Normal 0.5-2.0 [address] [place] [address] [phone] CBC Auto Diff 08/08/2019 [facility] White Blood 10.9 High 3.5- 10.[address] Count 10^3/[place] [address] [phone] Red Blood Count 3.12 10^6/uL Low 3.70-4.87 [...] Blood Cells % 0.0 Basic Metabolic 08/08/2019 [facility] Sodium 133 mmol/L Low 135-[address] [place] [address] [phone] Potassium 4.1 mmol/L Normal 3.5-5.0 Chloride 97 mmol/L Low 101-111 Co2 Carbon Dioxide 24 mmol/L Normal 22-32 Anion Gap 12 mmol/L High 2-11 Glucose 180 mg/dL High 70-100 Blood Urea Nitrogen 59 mg/dL High 6-24 Creatinine 2.49 mg/dL High 0.51-0.95 BUN/Creatinine Ratio 23.7 High 8-20 Calcium 9.0 mg/dL Normal 8.6-10.3 Egfr Non- 18.7 >60 Egfr 22.6 >60 8 Laboratory test 08/08/2019 [facility] C Reactive 177.86 mg/L High <8.[address] [place] [address] [phone] Urinalysis 08/08/2019 [facility] Urine Color Yellow Profile [address] [place] [address] [phone] Urine Appearance Clear Urine Specific [place] 1.014 Normal 1.010-1.030 Urine pH 5.0 Normal [...] Casts Present Abnormal Absent Laboratory test 08/08/2019 [facility] Erythrocyte Sed 72 mm/Hr High 0-[address] Rate [place], [place] [id number] [phone] Urine Culture And 08/08/2019 [facility] Urine Culture SEE RESULT [address] BELOW [place], [place] [id number] [phone] Laboratory test 08/08/2019 [facility] Blood Culture SEE RESULT [address] BELOW [place], [place] [id number] [phone] 1 [id number] 2 Because ethnic data is not always [...] 5 Kidney failure <15 (or dialysis) 3 [id number] 4 SEE RESULT BELOW Name: JOCELYNE MARTIN : [address]: Que Jay MD Acct: [id number] Unit: [id number] AGE: 78 Location: ED Re08/08/19 SEX: F Status: REG ER SPEC: [id number] OSCAR: 08/08/[address]: Renetta Pagan NP REQ: [id number] RECD: 08/08/19 STATUS: FRANKI DE JESUS DR: [...] . END OF REPORT DEPARTMENT OF PATHOLOGY, [address] [place] [address] Ramos Durand M.D. Director [facility] # [id number] 5 Suboptimal collection technique may reduce sensitivity of test. Refer to the [facility] Test Catalog for collection information: [email or web address].testcatalog.org As with all diagnostic procedures, the laboratory results obtained should be used in conjunction with other clinical information available to the physician, including confirmation by another method, as applicable. 6 Safety Representative: [id number] 7 [facility] Severe Sepsis and Septic Shock [...] [address]: Capri Elliott MD Acct: [id number] Unit: [id number] AGE: 78 Location: [place] [address] Re08/09/19 SEX: F Status: ADM IN SPEC: [id number] OSCAR: 08/08/[address] [facility] [address]: Que Jay MD REQ: [id number] RECD: 08/08/19 STATUS: COMP [facility] DR: You Bains MD _ SOURCE: URINE SPDESC: ORDERED: Urine Culture Procedure Result Reported Site Urine Culture Final 08/09/19- 1400 ML No Growth (<1,000 CFU/mL) * ML - Main Lab . END OF REPORT DEPARTMENT OF PATHOLOGY, [address] [place] [address] Ramos Durand M.D. Director [facility] # [id number] 11 SEE RESULT BELOW Name: JOCELYNE MARTIN : [address]: Capri Elliott MD Acct: [id number] Unit: [id number] AGE: 78 Location: [place] [address] Re08/09/19 Dis: 08/13/19 SEX: F Status: DIS IN SPEC: [id number] OSCAR: 08/08/[address] [facility] [address]: Que Jay MD REQ: [id number] RECD: 08/08/19 STATUS: FRANKI DE JESUS DR: You Bains MD _ SOURCE: BLOOD,VENO SPDESC: ORDERED: Blood Cult Procedure Result Reported Site Aerobic Culture Bottle Final 08/13/19- 8 ML No Growth Day 5 Anaerobic Culture Bottle Final 08/13/19- 8 ML No Growth Day 5 * ML - Main Lab . END OF REPORT DEPARTMENT OF PATHOLOGY, [address] [place] [address] Ramos Durand M.D. Director [facility] # [id number] Procedures Date Code Description Status 09/16/2019 12236 Negative Pressure Wound Therapy Less Than 50 Square CM Completed 09/06/2019 50324 Negative Pressure Wound Therapy Greater Than 50CM Completed 09/06/2019 25146 Negative Pressure Wound Therapy Greater Than 50CM Completed 09/02/2019 78986 Negative Pressure Wound Therapy Less Than 50 Square CM Completed 09/02/2019 86589 Negative Pressure Wound Therapy Less Than 50 Square CM Completed 09/02/2019 41533 Secondary Closure Of Surgical Wound Or Dehiscence Completed Extensive Or Co 09/02/2019 20560 Secondary Closure Of Surgical Wound Or Dehiscence Completed Extensive Or Co 09/02/2019 43524 Debridement Completed Muscle/Fascia,Epidermis/Dermis/Tissue,Addtl 20 SQ CM 09/02/2019 03395 Debridement Completed Muscle/Fascia,Epidermis/Dermis/Tissue,Addtl 20 SQ CM 09/02/2019 37875 Debridement Completed Muscle/Fascia,Epidermis/Dermis/Tissue,Addtl 20 SQ CM 09/02/2019 80514 Debridement Skin, Subcutaneous Tissue & Muscle Completed 09/02/2019 62862 Debridement Skin, Subcutaneous Tissue & Muscle Completed 08/30/2019 94800 Negative Pressure Wound Therapy Less Than 50 Square CM Completed 08/30/2019 78748 Negative Pressure Wound Therapy Less Than 50 Square CM Completed 08/28/2019 67372 Negative Pressure Wound Therapy Greater Than 50CM Completed 08/28/2019 88294 Debridement Completed Muscle/Fascia,Epidermis/Dermis/Tissue,Addtl 20 SQ CM 08/28/2019 80523 Debridement Skin, Subcutaneous Tissue & Muscle Completed 08/25/2019 57165 Debridement Skin, Subcutaneous Tissue & Muscle Completed 08/25/2019 14717 Debridement Skin, Subcutaneous Tissue & Muscle Completed 08/25/2019 06906 Debridement Completed Muscle/Fascia,Epidermis/Dermis/Tissue,Addtl 20 SQ CM 08/25/2019 05046 Debridement Completed Muscle/Fascia,Epidermis/Dermis/Tissue,Addtl 20 SQ CM 08/25/2019 51569 Debridement Completed Muscle/Fascia,Epidermis/Dermis/Tissue,Addtl 20 SQ CM 08/25/2019 94974 Debridement Completed Muscle/Fascia,Epidermis/Dermis/Tissue,Addtl 20 SQ CM 08/25/2019 47955 Debridement Completed Muscle/Fascia,Epidermis/Dermis/Tissue,Addtl 20 SQ CM 08/25/2019 12854 Debridement Completed Muscle/Fascia,Epidermis/Dermis/Tissue,Addtl 20 SQ CM 08/25/2019 60036 Debridement Completed Muscle/Fascia,Epidermis/Dermis/Tissue,Addtl 20 SQ CM 08/25/2019 04342 Debridement Completed Muscle/Fascia,Epidermis/Dermis/Tissue,Addtl 20 SQ CM 08/25/2019 54426 Debridement Completed Muscle/Fascia,Epidermis/Dermis/Tissue,Addtl 20 SQ CM 08/25/2019 83509 Negative Pressure Wound Therapy Greater Than 50CM Completed 08/25/2019 22622 Negative Pressure Wound Therapy Greater Than 50CM Completed 08/25/2019 96745 Negative Pressure Wound Therapy Greater Than 50CM Completed 08/09/2019 58792 EKG, Interpretation Only Completed 08/09/2019 81909 Excision Tumor Soft Tissue Thigh/Knee Subcutaneous, 3 Completed CM Or > 08/09/2019 54562 Excision Tumor Soft Tissue Thigh/Knee Subcutaneous, 3 Completed CM Or > 05/25/2019 17349 Inject/Drain Joint/Bursa Small W/O US Completed 05/25/2019 86805 Inject/Drain Joint/Bursa Small W/O US Completed 04/23/2019 47831 EKG Tracing & Interpretation Completed 08/06/2016 [id number] Diabetic Retinal Eye Exam Completed Medical Devices Description No Information Available Encounters Type Date Location Provider Dx Diagnosis Office Visit 09/17/2019 [facility] L02.415 Cutaneous 1:00p Infectious Benson, TECHNICAL SUPPORT CONSULTANT abscess of right Diseases lower limb B95.2 Enterococcus as the cause of diseases classified elsewhere Z16.22 Resistance to vancomycin related antibiotics Office Visit 09/09/2019 [facility] L02.415 Cutaneous 8:25a For Infectious Benson, TECHNICAL SUPPORT CONSULTANT abscess of Diseases right lower limb B95.2 Enterococcus as the cause of diseases classified elsewhere Z16.22 Resistance to vancomycin related antibiotics N18.3 Chronic kidney disease, stage 3 (moderate) Office Visit 09/08/2019 [facility] L02.415 Cutaneous 8:24a For Infectious Benson, TECHNICAL SUPPORT CONSULTANT abscess of Diseases right lower limb B95.2 Enterococcus as the cause of diseases classified elsewhere Z16.22 Resistance to vancomycin related antibiotics N18.3 Chronic kidney disease, stage 3 (moderate) Office Visit 09/08/2019 10:01a [facility] Narcisa N39.0 Urinary tract Assoc,pc Chato, PASamiaC infection, site Hospitalists not specified B96.20 Unsp Escherichia coli as the cause of diseases classd elswhr 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 I50.32 Chronic diastolic (congestive) heart failure N18.9 Chronic kidney disease, unspecified I48.91 Unspecified atrial fibrillation Office Visit 09/07/2019 [facility] L[facility].415 Cutaneous 8:23a For Infectious Benson, TECHNICAL SUPPORT CONSULTANT abscess of Diseases right lower limb B95.2 Enterococcus as the cause of diseases classified elsewhere Z16.22 Resistance to vancomycin related antibiotics N18.3 Chronic kidney disease, stage 3 (moderate) Office Visit 09/07/2019 [facility] 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 Assoc,carli Reis PA-C kdny dis w hrt Hospitalists fail and stg 1-4/unsp chr kdny I50.32 Chronic diastolic (congestive) heart failure N18.9 Chronic kidney disease, unspecified Office Visit 09/06/2019 [facility] L02.415 Cutaneous 8:22a For Infectious Benson, TECHNICAL SUPPORT CONSULTANT abscess of Diseases right lower limb B95.2 Enterococcus as the cause of diseases classified elsewhere Z16.22 Resistance to vancomycin related antibiotics N18.3 Chronic kidney disease, stage 3 (moderate) Office Visit 09/06/2019 10:00a [facility] Narcisa 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 Assoc,carli Reis, SEAMUS kdny dis w hrt Hospitalists fail and stg 1-4/unsp chr kdny I50.32 Chronic diastolic (congestive) heart failure N18.9 Chronic kidney disease, unspecified Office Visit 09/05/2019 10:00a [facility] 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 Assoc,carli Crowley DO kdny dis w hrt Hospitalists fail and stg 1-4/unsp chr kdny I50.32 Chronic diastolic (congestive) heart failure N18.3 Chronic kidney disease, stage 3 (moderate) Office Visit 09/04/2019 [facility] I48.91 Unspecified atrial 9:58a carli Murray DO fibrillation Hospitalists G89.29 Other chronic pain N18.3 Chronic kidney disease, stage 3 (moderate) Office Visit 09/03/2019 [facility] I48.91 Unspecified atrial 9:56a carli Murray DO fibrillation Hospitalists N18.3 Chronic kidney disease, stage 3 (moderate) Office Visit 09/03/2019 [facility] L02.415 Cutaneous 9:41a For Infectious Benson, TECHNICAL SUPPORT CONSULTANT abscess of Diseases right lower limb N18.3 Chronic kidney disease, stage 3 (moderate) B95.2 Enterococcus as the cause of diseases classified elsewhere Z16.22 Resistance to vancomycin related antibiotics Office Visit 09/02/2019 9:56a [facility] Daniela Lopez, G89.29 Other chronic Assoc,carli Ching pain Hospitalists I48.91 Unspecified atrial fibrillation N18.3 Chronic kidney disease, stage 3 (moderate) Office Visit 09/01/2019 [facility] [place] L02.415 Cutaneous 9:40a For Infectious Benson, TECHNICAL SUPPORT CONSULTANT abscess of Diseases right lower limb N18.3 Chronic kidney disease, stage 3 (moderate) B95.2 Enterococcus as the cause of diseases classified elsewhere Z16.22 Resistance to vancomycin related antibiotics Office Visit 09/01/2019 [facility] I48.91 Unspecified atrial 9:55a Assoc,carli Gregory D.O. 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 I50.32 Chronic diastolic (congestive) heart failure N18.3 Chronic kidney disease, stage 3 (moderate) Office Visit 08/31/2019 [facility] L02.415 Cutaneous 9:36a For Infectious Benson, TECHNICAL SUPPORT CONSULTANT abscess of Diseases right lower limb N18.3 Chronic kidney disease, stage 3 (moderate) B95.2 Enterococcus as the cause of diseases classified elsewhere Z16.22 Resistance to vancomycin related antibiotics Office Visit 08/31/2019 [facility] I48.91 Unspecified atrial 9:54a Assoc,carli Reis, PASamiaC 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 I48.91 Unspecified atrial 9:54a Assoc,carli Gregory D.O. 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 I50.32 Chronic diastolic (congestive) heart failure G89.29 Other chronic pain N18.3 Chronic kidney disease, stage 3 (moderate) E66.01 Morbid (severe) obesity due to excess calories Office Visit 08/29/2019 9:53a [facility] Arnold Holguin MD M79.674 Pain in right Assoc,pc toe(s) Hospitalists G89.29 Other chronic pain G25.81 Restless legs syndrome N18.3 Chronic kidney disease, stage 3 (moderate) Office Visit 08/28/2019 9:53a [facility] Arnold Holguin, I48.0 Paroxysmal atrial Assoc,carli ALCOCER fibrillation Hospitalists G89.29 Other chronic pain N18.3 Chronic kidney disease, stage 3 (moderate) E66.01 Morbid (severe) obesity due to excess calories Office Visit 08/27/2019 9:52a [facility] I48.0 Paroxysmal atrial Assteena,carli Marshall M.D. fibrillation Hospitalists G89.29 Other chronic pain E66.01 Morbid (severe) obesity due to excess calories D64.9 Anemia, unspecified Office Visit 08/27/2019 [facility] Fawn Ramos L02.415 Cutaneous 9:33a For Infectious Benson, TECHNICAL SUPPORT CONSULTANT abscess of Diseases right lower limb N18.3 Chronic kidney disease, stage 3 (moderate) B95.2 Enterococcus as the cause of diseases classified elsewhere Office Visit 08/26/2019 9:52a [facility] I48.0 Paroxysmal atrial carli Murray M.D. fibrillation Hospitalists G89.29 Other chronic pain Office Visit 08/26/2019 [facility] Seymour Forte L02.415 Cutaneous abscess 9:33a Umair Beltrán M.D. of right lower Diseases limb Office Visit 08/25/2019 [facility] I48.0 Paroxysmal atrial 9:52a Asscarli dickinson M.D. fibrillation Hospitalists G89.29 Other chronic pain N18.9 Chronic kidney disease, unspecified Office Visit 08/25/2019 9:32a [facility] [place] Forte L02.415 Cutaneous Infectious Jeane Beltrán abscess of Diseases right lower limb N18.9 Chronic kidney disease, unspecified Office Visit 08/24/2019 9:51a [facility] I48.0 Paroxysmal atrial Assoccarli M.D. fibrillation Hospitalists L08.9 Local infection of the skin and subcutaneous tissue, unsp G89.29 Other chronic pain G47.33 Obstructive sleep apnea (adult) (pediatric) N18.9 Chronic kidney disease, unspecified Office Visit 08/24/2019 9:30a [facility] Se[place] Forte L02.415 Cutaneous Infectious Jeane Beltrán abscess of Diseases right lower limb N18.3 Chronic kidney disease, stage 3 (moderate) Office Visit 08/13/2019 9:09a [facility] N17.9 Acute kidney Assoc,carli Connolly M.D. failure, Hospitalists unspecified M25.561 Pain in right knee L03.115 Cellulitis of right lower limb I48.0 Paroxysmal atrial fibrillation E66.01 Morbid (severe) obesity due to excess calories Office Visit 08/12/2019 9:08a [facility] N17.9 Acute kidney Assoc,carli Connolly M.D. failure, Hospitalists unspecified I48.0 Paroxysmal atrial fibrillation [facility] L72.9 Follicular cyst of 1:29p For Infectious Kelley TECHNICAL SUPPORT CONSULTANT the skin and Diseases subcutaneous tissue, unsp N18.3 Chronic kidney disease, stage 3 (moderate) I89.0 Lymphedema, not elsewhere classified Office Visit 08/11/2019 9:04a [facility] Chaitanya Forte L72.9 Follicular cyst of For Infectious Jeane Beltrán the skin and Diseases subcutaneous tissue, unsp M25.561 Pain in right knee Office Visit 08/11/2019 9:08a [facility] N17.9 Acute kidney Assoccarli M.D. failure, Hospitalists unspecified I48.0 Paroxysmal atrial fibrillation [facility] L[facility].115 Cellulitis of 9:03a For Infectious Kelley, TECHNICAL SUPPORT CONSULTANT right lower limb Diseases N18.3 Chronic kidney disease, stage 3 (moderate) I89.0 Lymphedema, not elsewhere classified [facility] N[facility] Acute kidney Assoccarli M.D. 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 knee M25.561 Pain in right knee [...] of right lower Fawn Benson NP limb 09/08/2019 N39.0 Urinary tract infection, site not Narcisa O'cortez, PA-C specified 09/08/2019 B95.2 Enterococcus as the cause of Fawn Benson NP diseases classified elsewhere 09/08/2019 Z48.89 [...] O'cortez, PA-C 09/08/2019 I48.91 Unspecified atrial fibrillation Anrcisa O'cortez, PA-C 09/07/2019 L02.415 Cutaneous abscess of right lower Fawn Benson NP limb 09/07/2019 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'cortez, PA-C kidney disease with heart failure and stage 1 through stage 4 chronic kidney disease, or unspecified chronic kidney disease 09/07/2019 B95.2 Enterococcus as the cause of Fawn Richard Benson NP diseases classified elsewhere 09/07/2019 I50.32 Chronic diastolic (congestive) heart Narcisa Ruben'cortez, PA-C failure 09/07/2019 Z16.22 Resistance to vancomycin related Fawnjennifer Benson NP antibiotics 09/07/2019 N18.9 Chronic kidney disease, unspecified Narcisa O'cortez, PA-C 09/07/2019 N18.3 Chronic kidney disease, stage 3 Fawnjennifer Benson NP (moderate) 09/06/2019 L02.415 Cutaneous abscess of right lower Fawnjennifer Benson NP limb 09/06/2019 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 Ruben'cortez, PA-C kidney disease with heart failure and stage 1 through stage 4 chronic kidney disease, or unspecified chronic kidney disease 09/06/2019 B95.2 Enterococcus as the cause of Fawn Richard Benson NP diseases classified elsewhere 09/06/2019 I50.32 Chronic diastolic (congestive) heart Narcisa Ruben'cortez, PA-C failure 09/06/2019 Z16.22 Resistance to vancomycin related Fawnjennifer Benson NP antibiotics 09/06/2019 N18.9 Chronic kidney disease, unspecified Narcisa O'cortez, PA-C 09/06/2019 N18.3 Chronic kidney disease, stage 3 Fawnjennifer Benson NP (moderate) 09/05/2019 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 Luisa Crowley DO kidney disease with heart failure and stage 1 through stage 4 chronic kidney disease, or unspecified chronic kidney disease 09/05/2019 Z48.89 Encounter for other specified DIONNE Charlton surgical aftercare 09/05/2019 I50.32 Chronic diastolic (congestive) heart Luisa Crowley, DO failure 09/05/2019 N18.3 Chronic kidney disease, stage 3 Luisa Crowley, DO (moderate) 09/04/2019 I48.91 Unspecified atrial fibrillation Luisa Crowley, DO 09/04/2019 G89.29 Other chronic pain Luisa Crowley, DO 09/04/2019 N18.3 Chronic kidney disease, stage 3 Luisa Crowley, DO (moderate) 09/03/2019 I48.91 Unspecified atrial fibrillation Luisa Crowley, DO 09/03/2019 L02.415 Cutaneous abscess of right lower Fawn Benson , TECHNICAL SUPPORT CONSULTANT limb 09/03/2019 N18.3 Chronic kidney disease, stage 3 Luisa Crowley, DO (moderate) 09/03/2019 N18.3 Chronic kidney disease, stage 3 Fawn Kamlev Benson TECHNICAL SUPPORT CONSULTANT (moderate) 09/03/2019 B95.2 Enterococcus as the cause of Fawn Richard Benson NP diseases classified elsewhere 09/03/2019 Z16.22 [...] abscess of right lower Fawn Benson , TECHNICAL SUPPORT CONSULTANT limb 09/01/2019 I50.32 Chronic diastolic (congestive) heart Shanda Gregory D.O. failure 09/01/2019 Z48.89 Encounter for other specified PHYLLIS Beltran surgical aftercare 09/01/2019 N18.3 Chronic kidney disease, stage 3 Shanda Gregory D.O. (moderate) 09/01/2019 N18.3 Chronic kidney disease, stage 3 Fawn Benson NP (moderate) 09/01/2019 B95.2 Enterococcus as the cause of Fawn Pedersengualberto Benson NP diseases classified elsewhere 09/01/2019 Z16.22 [...] NP antibiotics 08/30/2019 I48.91 Unspecified atrial fibrillation Shanad Gregory D.O. 08/30/2019 L02.415 Cutaneous abscess of right lower Chaitanya Reanna Beltrán M.D. 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 kidney disease with heart failure and [...] 08/24/2019 L02.415 Cutaneous abscess of right lower Chaitayna Beltrán M.D. 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 08/08/2019 N17.9 Acute kidney failure, unspecified Renetta Banegas, ORDRIGO 08/08/2019 M71.21 Synovial cyst of popliteal space Renetta Banegas NP [[place]], right knee 08/08/2019 I12.9 Hypertensive chronic kidney disease Renetta Banegas NP with stage 1 through stage 4 chronic kidney disease, or unspecified chronic kidney disease 08/08/2019 N18.9 Chronic kidney disease, unspecified Renetta Banegas, RODRIGO 08/08/2019 I48.0 Paroxysmal atrial fibrillation Renetta Banegas, [...] 04/23/2019 R60.0 Localized edema You Delgado, DO [facility] 04/23/2019 I25.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 You Delgado, DO [facility] chilkoot coronary artery with 04/23/2019 D64.9 Anemia, unspecified You Delgado, DO [facility] 04/23/2019 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 You Delgado, DO [facility] graft 04/23/2019 I48.0 Paroxysmal atrial fibrillation You Delgado, DO [facility] 04/23/2019 D64.89 Other specified anemias You Delgado, DO [facility] 04/23/2019 I50.32 Chronic diastolic (congestive) heart Youprimitivo Delgado, DO [facility] failure 04/23/2019 N18.9 Chronic kidney disease, unspecified You Delgado, DO [facility] 04/23/2019 G25.0 Essential tremor You Delgado, DO [facility] 04/23/2019 D47.1 Chronic myeloproliferative disease You Delgado, DO [facility] 04/23/2019 I10 Essential (primary) hypertension You Delgado, DO [facility] 04/23/2019 E78.5 Hyperlipidemia, unspecified You Delgado, DO [facility] 04/23/2019 I25.2 Old myocardial infarction You MansfieldKandi Delgado, DO [facility] 04/23/2019 G47.33 Obstructive sleep apnea (adult) You Delgado, DO [facility] (pediatric) 04/23/2019 Z87.11 Personal history of peptic ulcer You SKandi Delgado, DO [facility] disease 04/13/2019 D64.9 Anemia, unspecified Avinash Romero M.D. 04/13/2019 R53.83 Other fatigue Avinash Romero M.D. 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 [place] coronary artery with 04/13/2019 Z95.1 Presence of [...] 04/12/2019 M25.511 Pain in right shoulder Marisela Villa, M.D. Plan of Treatment Future Appointment(s):10/19/2019 11:30 am - Chaitanya Beltrán M.D. at [facility]10/31/2020 3:00 pm - Martine Landers NP at [facility]11/18/2019 3:45 pm - Lincoln Norman MD at [facility] D[facility] AT [place]59/04/2020 12:30 pm - Nelli Willett MD at [facility]09/17/2019 - Fawn Benson, NPL02.415 Cutaneous abscess of right lower limbComments:Please call the office for return of redness or swelling of the right leg.Follow up:3-4 dssrgG54.2 Enterococcus as the cause of diseases classified uvdzdfnisI90.22 Resistance to vancomycin related antibiotics Functional Status Description No Information Available Mental Status Description No Information Available Referrals Description No Information Available
--- OUTSIDE RECORDS SUMMARY | 2019-10-11 19:54 | XMS REPORT | Continuity of Care Document ---
:1940 External Reference #:[id number] Author Name Delfina Collazo, RODRIGO Address [address] [place] [address] Care Team Providers Name Role Phone Manas Villeda MD - Family Medicine Care Team Information [facility] [place] [phone] Luana Schwarz - Obstetrics & Care Team Information [place] [phone] [facility] - Care Team Information [place] [phone] Gastroenterology Cielo Cook MD - Hematology & Care Team Information [facility] - Pain Care Team Information [facility] [place] [phone] Radames Lee MD - Orthopaedic Care Team Information [facility] Avinash Romero MD - Hematology Care Team Information [facility] [place] [phone] Brian Smallwood MD - Ophthalmology Care Team Information [facility] Care Team Information [facility] [place] [phone] [facility] Care Team Information [place] [phone] Problems Active Problems Provider Date Hypothyroidism Manas [...] M.D. Onset: 04/05/2019 [facility] Lincoln Swartz M.D. Onset: 2018 coronary artery without angina pectoris Social History Type Date Description Comments Sex Unknown Tobacco Use Start: Unknown Patient has never smoked Smoking Status Reviewed: 10/11/19 Patient has never smoked Allergies, Adverse Reactions, Alerts Active Allergies Reaction Severity Comments Date Asa gastric ulcer 2013 Gabitril rash 2013 Naprosyn rash 2013 Cytotec rash 2013 Lipitor leg weakness 2013 Zanaflex hallucinations 2013 Contrast Dye visual chnages 2013 Impramine dianrrhea itch headaches 2013 Oxycodone severe constipation Severe 12/08/2018 Medications Active Medications SIG Qnty Indications Ordering Provider Date Nitrofurantoin 1 by mouth two 14caps Manas Villeda, 10/07/2019 Monohydrate/Macrocryst times a day M.D. als 100mg Capsules Hydrocodone-Acetaminop 2 tablets by 240tabs Veronica 09/21/2019 hen mouth every 6 Amaris, NETWORK MANAGER 10-325mg Tablets hours as needed pain/ dx: chronic pain syndrome, snf stable use ( g89.4) Medical Compression use as 1Pair I73.9 Manas Villeda, 06/10/2019 Socks/30-40MMHG/Open directed. M.D. Toe/Long Misc R60.0 Metoprolol Succinate ER 1 by mouth twice a 60tabs Veronica 12/21/2018 25mg day Amaris, NETWORK MANAGER Tablets ER 24HR Plavix 1 by mouth every 90tabs Manas Villeda, 03/16/2018 75mg Tablets day M.D. Levothyroxine Sodium Take 1 Tablet Every 90tabs Veronica 08/29/2017 175mcg Day [facility] Tablets Levocetirizine Take 1 Tablet Every 90tabs Veronica 07/12/2014 Dihydrochloride Day [facility] 5mg Tablets Omeprazole 1 by mouth twice a 180caps K21.9 Veronica 05/02/[address] day [facility] Melatonin 1 cap by mouth Unknown 10mg Capsules every day at bedtime Amlodipine Besylate take 2 tablets 180tabs Manas Villeda, 5mg every day M.D. Tablets Pramipexole Take 2 Tablets 180tabs Veronica Dihydrochloride Every Night AT [facility] 1mg Tablets Bedtime Amiodarone HCL 1 by mouth every 90tabs Veronica 100mg Tablets day [facility] Torsemide take 2 pill a day Unknown 10mg Tablets for fluid Primidone Take 3 Tablets 270tabs Manas Villeda, 50mg Tablets Every Night AT M.D. Bedtime Singulair 1 by mouth every Unknown 10mg Tablets day Venlafaxine HCL take once a day Unknown 37.5mg Tablets Vitamin B Complex 1 by mouth every Unknown Tablets day Ezetimibe 1 by mouth every Unknown 10mg Tablets day Shark Cartilage 2 po tid Unknown 500mg Capsules Vitamin D 2 by mouth every Unknown 1000Unit Tablets day Fluticasone Propionate Use 2 Sprays In 48units Veronica Each Nostril AT [facility] 50mcg/Act Suspension Bedtime Calcium/Mag 1 po qd 30units Unknown Chewtabs Senna S 1 by mouth twice a 180tabs Veronica 8.6-50mg Tablets day [facility] Multivitamin With Folic 1 po qd supplement 100tabs Unknown Acid Tablets Colace 2 by mouth twice a 540caps Veronica 100mg Capsules day for bowels Amaris, NETWORK MANAGER Albuterol Sulfate use four times a 180ml Veronica (2.5mg/3ML) day as needed Amaris, NETWORK MANAGER 0.083% Nebulizer Ventolin HFA 2 puffs every 6 3units Veronica 108(90Base) hours as needed Amaris, NETWORK MANAGER mcg/Act Aerosol History Medications Cephalexin 1 by mouth twice 14tabs R30.0 Veronica Amaris, 09/16/2019 - 500mg a day for 7 days NETWORK MANAGER 10/11/2019 Tablets Nystatin apply to affected 30gm N77.1 Veronica Amaris, 09/16/2019 - skin perineum NETWORK MANAGER 10/11/2019 482719Myhm/GM twice a day Powder Keflex 1 by mouth twice 14caps Veronica Amaris, 04/20/2019 - 500mg a day x 7 days NETWORK MANAGER 05/04/2019 Capsules Keflex 1 by mouth twice 14caps Veronica Amaris, 04/20/2019 - 500mg a day x 7 days NETWORK MANAGER 05/04/2019 Capsules Immunizations CPT Code Status Date Vaccine Lot # [id number] Given 04/05/2019 High-Dose, Influenza Virus Vacccine-fluzone 65 and [id number] older 47081 Given 05/15/2018 High-Dose, Influenza Virus Vacccine-fluzone 65 and [id number] older 78086 Given 04/10/2017 High-Dose, Influenza Virus Vacccine-fluzone 65 and [id number] older 18607 Given 12/24/2016 Tdap Tetanus, W Pertussis [id number] 21433 Given 12/24/2016 Pneumococcal Conjugate Vacc-13 [id number] 28189 Given 04/10/2016 Influenza Vac, Quadrivalent, Slit Virus, Im [id number] 02225 Given 05/08/2015 Pneumococcal Immunization [id number] 17250 Given 05/08/2015 Influenza Vac, Quadrivalent, Slit Virus, Im [id number] Vital Signs Date Vital Result Comment 09/16/2019 12:47pm BP Systolic 100 mmHg BP Diastolic 70 mmHg Heart Rate 60 /min Body Temperature 98.1 F 08/19/2019 11:28am BP Systolic 138 mmHg BP Diastolic 76 mmHg Heart Rate 80 /min Body Temperature 98.1 F Respiratory Rate 20 /min O2 % BldC Oximetry 94 % Ra Weight 235.00 lb per pt Results Test Acquired Date Facility Test Result H/L Range Note Urinalysis Profile 10/08/2019 [facility] Urine Color Yellow Urine Appearance Clear Urine Specific [place] 1.008 Low 1.010-1.030 Urine pH 6.0 Normal 5-9 Urine Urobilinogen Negative Negative Urine Ketones Negative Negative Urine Protein Negative Negative Urine Leukocytes 3+ Abnormal Negative Urine Blood Negative Negative Urine Nitrite Negative Negative Urine Bilirubin Negative Negative Urine Glucose Negative Negative Urine White Blood Cell 3+(>20/hpf) Abnormal Absent Urine Red Blood Cell Absent Absent Urine Bacteria Absent Absent Urine Squamous Epithelial Cell Present Abnormal Absent Urine Hyaline Casts Present Abnormal Absent Urine Culture And 10/08/2019 [facility] Urine Culture SEE RESULT 1 Sensitivities BELOW Ua - Micro (Fma) 09/16/2019 family medicine Appearance clear (607)- - Color yellow Glucose, Urine (Fma/CMC/CTX) - Bilirubin - Ketones - SP Grav 1.010 Blood - PH 5.0 Protein - Urobil 0.2 Nitrite - Leukocytes (Fma/CMC/Centrex) - Hyaline - /Lpf Granular - /Lpf WBC (a,Centrex) 0-1 RBC - Mucus (Fma/CBC/Centrex) - /Lpf Epith rare /Lpf Bacteria rare /Hpf Amorphous (Fma/CMC/Centrex) - /Lpf Crystals, Fluid (Fma/CMC/CTX) - Urine Culture, 09/16/2019 [facility] Urine Culture, Final report 2, 3 Routine 1447 [facility] [place] [address] (607)- - Result 1 See Comment: 4 CBC Auto Diff 09/15/2019 [facility] White Blood Count 5.6 10^3/uL Normal 3.5- 10.8 5 Red Blood Count 3.05 10^6/uL Low 3.70-4.87 [...] Red Blood Cells % 0.0 Comp Metabolic Panel 09/15/2019 [facility] Sodium 139 mmol/L Normal 135-145 Potassium 4.3 mmol/L Normal 3.5-5.0 Chloride 105 [...] Egfr Non- 37.5 >60 Egfr 45.4 >60 6 Laboratory test 09/15/2019 [facility] C Reactive Protein 7.71 mg/L Normal <8.01 7 finding Laboratory test 08/08/2019 [facility] Blood Culture SEE RESULT 8 finding BELOW Urine Culture And 08/08/2019 [facility] Urine Culture SEE RESULT 9 Sensitivities BELOW Laboratory test 08/08/2019 [facility] Erythrocyte Sed 72 mm/Hr High 0-29 finding Rate Urinalysis Profile 08/08/2019 [facility] Urine Color Yellow Urine Appearance Clear Urine Specific [place] 1.014 Normal 1.010-1.030 Urine pH 5.0 Normal 5-9 Urine Urobilinogen Negative Negative Urine Ketones Negative Negative Urine Protein 1+(30 mg/dL) Abnormal Negative Urine Leukocytes Negative Negative Urine Blood Negative Negative * * Abnormal Negative 10 Urine Nitrite Negative Negative Urine Bilirubin Negative Negative Urine Glucose Negative Negative Urine White Blood Cell Trace(0-5/hpf) Absent Urine Red Blood Cell 1+(3-5/hpf) Abnormal Absent Urine Bacteria Absent Absent Urine Squamous Epithelial Cell Present Abnormal Absent Urine Hyaline Casts Present Abnormal Absent Laboratory test finding 08/08/2019 [facility] C Reactive Protein 177.86 mg/L High <8.01 Basic Metabolic Panel 08/08/2019 [facility] Sodium 133 mmol/L Low 135-145 Potassium 4.1 mmol/L Normal 3.5-5.0 Chloride 97 mmol/L Low 101-111 Co2 Carbon Dioxide 24 mmol/L Normal 22-32 Anion Gap 12 mmol/L High 2-11 Glucose 180 mg/dL High 70-100 Blood Urea Nitrogen 59 mg/dL High 6-24 Creatinine 2.49 mg/dL High 0.51-0.95 BUN/Creatinine Ratio 23.7 High 8-20 Calcium 9.0 mg/dL Normal 8.6-10.3 Egfr Non- 18.7 >60 Egfr 22.6 >60 11 CBC Auto Diff 08/08/2019 [facility] White Blood Count 10.9 10^3/uL High 3.5- [...] % Nucleated Red Blood Cells % 0.0 Laboratory test 08/08/2019 [facility] Lactic Acid 1.3 mmol/L Normal 0.5-2.0 12 finding Influenza A & B 08/08/2019 [facility] Flu AB Disclaimer (SEE NOTE) 13 Request Influenza A Molecular NEGATIVE Negative Influenza B Molecular NEGATIVE Negative 14 Laboratory test 08/08/2019 [facility] Legionella Urine SEE RESULT 15 finding Antigen BELOW CBC Auto Diff 08/06/2019 [facility] White Blood Count 9.7 10^3/uL Normal 3.5- [...] Cells % 0.1 Comp Metabolic Panel 08/06/2019 [facility] Sodium 138 mmol/L Normal 135-145 Potassium 4.1 [...] Egfr Non- 35.7 >60 Egfr 43.2 >60 16 Laboratory test finding 08/06/2019 [facility] C Reactive Protein 58.65 mg/L High <8.01 1 SEE RESULT BELOW Name: JOCELYNE MARTIN : [address]: Manas Villeda MD Acct: [id number] Unit: [id number] AGE: 78 Location: [facility] Re10/08/19 SEX: F Status: REG REF SPEC: [id number] OSCAR: 10/08/19-[address]: Manas Villeda MD REQ: [id number] RECD: 10/09/19 STATUS: COMP _ SOURCE: URINE SPDESC: ORDERED: Urine Culture Urine Source: Random Procedure Result Reported Site Urine Culture Final 10/10/19- 1420 ML No growth of clinically significant organisms * ML - Main Lab . END OF REPORT DEPARTMENT OF PATHOLOGY, [address] [place] [address] Ramos Durand M.D. Director [facility] # [id number] 2 SRC:urine clean catch 3 Source of Specimen: urine clean catch 4 Source of Specimen: urine clean catch Culture shows less than 10,000 colony forming units of bacteria per milliliter of urine. This colony count is not generally considered to be clinically significant. 5 [id number] 6 Because ethnic data is not always [...] 5 Kidney failure <15 (or dialysis) 7 [id number] 8 SEE RESULT BELOW Name: JOCELYNE MARTIN : [address]: Capri Elliott MD Acct: [id number] Unit: [id number] AGE: 78 Location: [place] [address] Re08/09/19 Dis: 08/13/19 SEX: F Status: DIS IN SPEC: [id number] OSCAR: 08/08/19 [facility] [address]: Que Jay MD REQ: [id number] RECD: 08/08/19 STATUS: FRANKI DE JESUS DR: You Bains MD _ SOURCE: BLOOD,VENO SPDESC: ORDERED: Blood Cult Procedure Result Reported Site Aerobic Culture Bottle Final 08/13/19- 8 ML No Growth Day 5 Anaerobic Culture Bottle Final 08/13/19- 1828 ML No Growth Day 5 * ML - Main Lab . END OF REPORT DEPARTMENT OF PATHOLOGY, [address] [place] [address] Ramos Durand M.D. Director [facility] # [id number] 9 SEE RESULT BELOW Name: FARSHAD MARTINMARIOLA Russo : [address]: Capri Elliott MD Acct: [id number] Unit: [id number] AGE: 78 Location: [place] [address]- Re08/09/19 SEX: F Status: ADM IN SPEC: [id number] OSCAR: 08/08/[address] [facility] [address]: Que Jay MD REQ: [id number] RECD: 08/08/19 STATUS: COMP LIZA DR: You Bains MD _ SOURCE: URINE SPDESC: ORDERED: Urine Culture Procedure Result Reported Site Urine Culture Final 08/09/19- 1400 ML No Growth (<1,000 CFU/mL) * ML - Main Lab . END OF REPORT DEPARTMENT OF PATHOLOGY, [address] [place] [address] Ramos Durand M.D. Director [facility] # [id number] 10 *Ascorbic acid is present which may interfere with detection of blood. 11 Because ethnic data is not always [...] 5 Kidney failure <15 (or dialysis) 12 [facility] Severe Sepsis and Septic Shock Management Bundle Measure requires all lactic acids initially measuring >2.0 mmol/L be repeated. 13 Suboptimal collection technique may reduce sensitivity of test. Refer to the [facility] Test Catalog for collection information: [email or web address] As with all diagnostic procedures, the laboratory results obtained should be used in conjunction with other clinical information available to the physician, including confirmation by another method, as applicable. 14 Alteration Inspector: [id number] 15 SEE RESULT BELOW Name: JOCELYNE MARTIN : [address]: Que Jay MD Acct: [id number] Unit: [id number] AGE: 78 Location: ED Re08/08/19 SEX: F Status: REG ER SPEC: [id number] OSCAR: 08/08/[address] [facility] [address]: Renetta Pagan NP REQ: [id number] RECD: 08/08/19 STATUS: FRANKI DE JESUS DR: [...] . END OF REPORT DEPARTMENT OF PATHOLOGY, [address] [place] [address] Ramos Durand M.D. Director [facility] # [id number] 16 Because ethnic data is not always readily [...] (or dialysis) Procedures Date Code Description Status 08/19/2019 89017 Pulse Oximetry Completed 01/20/2017 51378755 Mammogram Completed 07/27/2015 23004903 Mammogram Completed 05/20/2014 52344574 Mammogram Completed 09/18/2013 77534745 Colonoscopy Completed Medical Devices Description No Information Available Encounters Type Date Location Provider Dx Diagnosis Office Visit 10/11/2019 3:30p Main Office Delfina Mckeonano, R60.0 Localized edema PROCESS SUPERVISOR M79.604 Pain in right leg Z16.22 Resistance to vancomycin related antibiotics L03.115 Cellulitis of right lower limb Office Visit 09/16/2019 1:30p [facility] Veronica Glez, NETWORK MANAGER R30.0 Dysuria N77.1 Vaginitis, vulvitis and vulvovaginitis in dis classd elswhr B35.4 Tinea corporis M79.604 Pain in right leg Z16.22 Resistance to vancomycin related antibiotics G89.4 Chronic pain syndrome M17.0 Bilateral primary osteoarthritis of knee D64.9 Anemia, unspecified N18.3 Chronic kidney disease, stage 3 (moderate) Office Visit 08/19/2019 11:00a [facility] Veronica M79.605 Pain in left Amaris, NETWORK MANAGER leg M79.604 Pain in right leg R60.0 Localized edema G89.4 Chronic pain syndrome M17.0 Bilateral primary osteoarthritis of knee K59.03 Drug induced constipation J18.9 Pneumonia, unspecified organism Office Visit 08/06/2019 3:00p [facility] Delfina Maxwell M79.605 Pain in left Collazo, PROCESS SUPERVISOR leg M79.604 Pain in right leg R60.0 Localized edema Office Visit 07/30/2019 1:45p Main Office Veronica Glez, M79.605 Pain in left NETWORK MANAGER leg G89.4 Chronic pain syndrome M17.0 Bilateral primary osteoarthritis of knee K59.03 Drug induced constipation F34.1 Dysthymic disorder Office Visit 05/05/2019 3:30p [facility] Veronica R60.0 Localized edema Amaris, [facility] M25.511 Pain in right shoulder M17.0 Bilateral primary osteoarthritis of knee 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 coronary artery w/o ang pctrs G89.4 Chronic pain syndrome K59.03 Drug induced constipation F34.1 Dysthymic disorder Assessments Date Code Description Provider 10/11/2019 R60.0 Localized edema Delfina Collazo, PROCESS SUPERVISOR 10/11/2019 M79.604 Pain in right leg Delfina Collazo, PROCESS SUPERVISOR 10/11/2019 Z16.22 Resistance to vancomycin related Delfina Collazo, RODRIGO antibiotics 10/11/2019 L03.115 Cellulitis of right lower limb Delfina Collazo, PROCESS SUPERVISOR 10/07/2019 N39.0 Urinary tract infection, site not specified Manas Villeda M.D. 09/16/2019 R30.0 [facility] 09/16/2019 N77.1 Vaginitis, vulvitis and vulvovaginitis in [facility] , [facility] diseases classified elsewhere 09/16/2019 B35.4 Tinea corporis [facility] 09/16/2019 M79.604 Pain in right [facility] 09/16/2019 Z16.22 Resistance to vancomycin related [facility], [facility] antibiotics 09/16/2019 G89.4 Chronic pain syndrome Veronica [facility], [facility] 09/16/2019 M17.0 Bilateral primary osteoarthritis of knee [facility] , [facility] 09/16/2019 D64.9 Anemia, unspecified Veronica Amaris, [facility] 09/16/2019 N18.3 Chronic kidney disease, stage 3 (moderate) Veronica Amaris, [facility] 08/19/2019 M79.605 Pain in left leg Veronica Amaris, [facility] 08/19/2019 M79.604 Pain in right leg Veronica Amaris, [facility] 08/19/2019 R60.0 Localized edema Veronica [facility], [facility] 08/19/2019 G89.4 Chronic pain syndrome Veronica [facility], [facility] 08/19/2019 M17.0 Bilateral primary osteoarthritis of knee Veronica Amaris , [facility] 08/19/2019 K59.03 Drug induced constipation Veronica [facility], [facility] 08/19/2019 J18.9 Pneumonia, unspecified organism Veronicadaisy Glez, [facility] 08/06/2019 M79.605 Pain in left leg Delfina Collazo, PROCESS SUPERVISOR 08/06/2019 M79.604 Pain in right leg Delfina Collazo, PROCESS SUPERVISOR 08/06/2019 R60.0 Localized edema Delfina Collazo, PROCESS SUPERVISOR 07/30/2019 M79.605 Pain in left leg Veronica Glez, [facility] 07/30/2019 G89.4 Chronic pain syndrome Veronica [facility], [facility] 07/30/2019 M17.0 Bilateral primary osteoarthritis of knee Veronica Amaris , [facility] 07/30/2019 K59.03 Drug induced constipation Veronica Amaris, [facility] 07/30/2019 F34.1 Dysthymic disorder Veronica Amaris, [facility] 05/05/2019 R60.0 Localized edema Veronica Amaris, [facility] 05/05/2019 M25.511 Pain in right shoulder Veronica Amaris, [facility] 05/05/2019 M17.0 Bilateral primary osteoarthritis of knee Veronica Amaris , [facility] 05/05/2019 I25.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 , [facility] coronary artery without angina pectoris 05/05/2019 G89.4 Chronic pain syndrome Veronica Amaris, [facility] 05/05/2019 K59.03 Drug induced constipation Veronica Amaris, [facility] 05/05/2019 F34.1 [facility] Plan of Treatment Future Appointment(s):12/15/2019 4:15 pm - [facility]10/11/2019 - Delfina Collazo, NPR60.0 Localized edemaComments:sent to [facility] - we need vital signs, assessment of the "rash" and edema,M79.604 Pain in right legZ16.22 Resistance to vancomycin related qhpodjdttfkE18.115 Cellulitis of right lower limbComments:[facility] Patient Understands medications he 's taking? [...] goals? Yes No If Yes, please describe: transportation, disease process, polypharmacy, comorbid conditions, availability of services 4. Self-Management goals as described to the patient: Yes [...] Consult and treat back pain. Office note, Closed radiology reports, labs and triage faxed. [address] [facility] [address] [phone] Armando P[facility]T. & Lymphedema bilateral lower extremities- Scheduled [facility] [address] [place] [address] [phone] Bryson Mcgarry MD Bilateral hand pain ? injections jw Scheduled 2018 [facility] [address] [address] [phone]
--- OUTSIDE RECORDS SUMMARY | 2019-10-11 19:54 | XMS REPORT | Continuity of Care Document ---
:1940 External Reference #:[id number] Author Name Veronica Glez, PROTOTYPE SEWER Address [address] [place] [address] Care Team Providers Name Role Phone Manas Villeda MD - Family Medicine Care Team Information Hook Up Driver Luana Schwarz - Obstetrics & Care Team Information Hook Up Driver [phone] [facility] - Care Team Information Hook Up Driver [phone] Gastroenterology Cielo Cook MD - Hematology & Care Team Information Hook Up Driver [facility] - Pain Care Team Information Hook Up Driver [phone] Radames Lee MD - Orthopaedic Care Team Information Hook Up Driver Surgery of the Spine Avinash Romero MD - Hematology Care Team Information Hook Up Driver [phone] Brian Smallwood MD - Ophthalmology Care Team Information Hook Up Driver [facility] Care Team Information Hook Up Driver [phone] [facility] Care Team Information Hook Up Driver [phone] Problems Active Problems Provider Date Hypothyroidism Manas [...] M.D. Onset: 04/05/2019 Atherosclerotic heart disease of [place] Lincoln Swartz M.D. Onset: 2018 coronary artery [...] Medications SIG Qnty Indications Ordering Provider Date Cephalexin 1 by mouth twice 14tabs R30.0 Veronica Glez, 09/16/2019 500mg a day for 7 days PROTOTYPE SEWER Tablets Nystatin apply to affected 30gm N77.1 Veronicakarla Glez, 09/16/2019 skin perineum PROTOTYPE SEWER 314191Kqxg/GM Powder twice a day Medical Compression use as directed. 1Pair I73.9 Manas Villeda, 2018 Socks/30-40MMHG/Open M.D. Toe/Long Misc R60.0 Diclofenac Sodium apply 2 gm to 100gm Lincoln Swartz, 04/05/2019 1% Gel affected joint four M.D. times a day Metoprolol Succinate ER 1 by mouth twice a 60tabs Veronica 12/21/2018 25mg day Amaris, PROTOTYPE SEWER Tablets ER 24HR Plavix 1 by mouth every 90tabs Manas Villeda, 03/16/2018 75mg Tablets day M.D. Levothyroxine Sodium Take 1 Tablet Every 90tabs Veronica 08/29/2017 175mcg Day [facility] Tablets Levocetirizine Take 1 Tablet Every 90tabs Veronica 07/12/2014 Dihydrochloride Day [facility] 5mg Tablets Omeprazole 1 by mouth twice a 180caps K21.9 Veronica 05/02/[address] day [facility] Melatonin 1 cap by mouth Unknown 10mg Capsules every day at bedtime Amlodipine Besylate take 2 tablets 180tabs Manas Villeda, 5mg every day M.D. Tablets Pramipexole Take 2 Tablets 180tabs Veronica Dihydrochloride Every Night AT [facility] 1mg Tablets Bedtime Amiodarone HCL 1 by mouth every 90tabs Veronica 100mg Tablets day [facility] Torsemide take 2 pill a day Unknown 10mg Tablets for fluid Primidone Take 3 Tablets 270tabs Manas Villeda, 50mg Tablets Every Night AT M.D. Bedtime Hydrocodone-Acetaminophe 1-2 by mouth every Unknown n 4 hours as needed 5-325mg Tablets pain Singulair 1 by mouth every Unknown 10mg [...] Sprays In 48units Veronica Each Nostril AT [facility] 50mcg/Act Suspension Bedtime Calcium/Mag 1 po qd 30units Unknown Chewtabs Senna S 1 by mouth twice a 180tabs Veronica 8.6-50mg Tablets day Amaris, PROTOTYPE SEWER Multivitamin With Folic 1 po qd supplement 100tabs Unknown Acid Tablets Colace 2 by mouth twice a 540caps Veronica 100mg Capsules day for bowels Amaris, PROTOTYPE SEWER Albuterol Sulfate use four times a 180ml Veronica (2.5mg/3ML) day as needed AmarisVY morales 0.083% Nebulizer Ventolin HFA 2 puffs every 6 3units Veronica 108(90Base) hours as needed VY Glez mcg/Act Aerosol History Medications Keflex 1 by mouth 14caps Veronica 04/20/2019 - 500mg Capsules twice a day x 7 [facility], [employer] 05/04/2019 days Keflex 1 by mouth 14caps Veronica 04/20/2019 - 500mg Capsules twice a day x 7 [facility] 05/04/2019 days Nitrofurantoin Monohyd 1 by mouth two 14caps Lincoln Swartz, 2018 - Macro times a day M.D. 05/05/2019 100mg Capsules Pyridium 1 by mouth 20tabs Lincoln Swartz, 04/02/2019 - 100mg Tablets three times a M.D. 04/03/2019 day as needed Gabapentin take 1 capsule 90caps G89.4 Veronica 03/25/2019 - 300mg Capsules by mouth three [facility] 07/30/2019 times a day as needed for pain Immunizations CPT Code Status Date Vaccine Lot # [id number] Given 04/05/2019 High-Dose, Influenza Virus Vacccine-fluzone 65 and [id number] older Given 05/15/2018 High-Dose, Influenza Virus Vacccine-fluzone 65 and [id number] older Given 04/10/2017 High-Dose, Influenza Virus Vacccine-fluzone 65 and [id number] older 16539 Given 12/24/2016 Tdap Tetanus, W Pertussis [id number] 21229 Given 12/24/2016 Pneumococcal Conjugate Vacc-13 [id number] 99806 Given 04/10/2016 Influenza Vac, Quadrivalent, Slit Virus, Im [id number] Given 05/08/2015 Pneumococcal Immunization [id number] 08263 Given 05/08/2015 Influenza Vac, Quadrivalent, Slit Virus, Im [id number] Vital Signs Date Vital Result Comment 09/16/2019 [...] Date Facility Test Result H/L Range Note Ua - Micro (Fma) 09/16/2019 [facility] Appearance clear (607)- - Color yellow Glucose, Urine (Fma/CMC/CTX) - Bilirubin - Ketones - SP Grav 1.010 Blood - PH 5.0 Protein - Urobil 0.2 Nitrite - Leukocytes (Fma/CMC/Centrex) - Hyaline - /Lpf Granular - /Lpf WBC (Fma,Centrex) 0-1 RBC - Mucus (Fma/CBC/Centrex) - /Lpf Epith rare /Lpf Bacteria rare /Hpf Amorphous (Fma/CMC/Centrex) - /Lpf Crystals, Fluid (Fma/CMC/CTX) - Z#Comments <pending> CBC Auto Diff 09/15/2019 [facility] White Blood Count 5.6 10^3/uL Normal 3.5- 10.8 1 Red Blood Count 3.05 10^6/uL Low 3.70-4.87 [...] Cells % 0.0 Comp Metabolic Panel 09/15/2019 [facility] Sodium 139 mmol/L Normal 135-145 Potassium 4.3 [...] Egfr 45.4 >60 2 Laboratory test 09/15/2019 [facility] C Reactive Protein 7.71 mg/L Normal <8.01 3 finding Laboratory test 08/08/2019 [facility] Blood Culture SEE RESULT 4 finding BELOW Urine Culture And 08/08/2019 [facility] Urine Culture SEE RESULT 5 Sensitivities BELOW Laboratory test 08/08/2019 [facility] Erythrocyte Sed 72 mm/Hr High 0-29 finding Rate Urinalysis Profile 08/08/2019 [facility] Urine Color Yellow Urine Appearance Clear Urine Specific [place] 1.014 Normal 1.010-1.030 Urine pH 5.0 Normal [...] Present Abnormal Absent Laboratory test finding 08/08/2019 [facility] [place] Reactive Protein 177.86 mg/L High <8.01 Basic Metabolic Panel 08/08/2019 [facility] Sodium 133 mmol/L Low 135-145 Potassium 4.1 mmol/L Normal 3.5-5.0 Chloride 97 mmol/L Low 101-111 Co2 Carbon Dioxide 24 mmol/L Normal 22-32 Anion Gap 12 mmol/L High 2-11 Glucose 180 mg/dL High 70-100 Blood Urea Nitrogen 59 mg/dL High 6-24 Creatinine 2.49 mg/dL High 0.51-0.95 BUN/Creatinine Ratio 23.7 High 8-20 Calcium 9.0 mg/dL Normal 8.6-10.3 Egfr Non- 18.7 >60 Egfr 22.6 >60 7 CBC Auto Diff 08/08/2019 [facility] White Blood Count 10.9 10^3/uL High 3.5- [...] Red Blood Cells % 0.0 Laboratory test finding 08/08/2019 [facility] Lactic Acid 1.3 mmol/L Normal 0.5- 2.0 8 Influenza A & B Request 08/08/2019 [facility] Flu AB Disclaimer (SEE NOTE) 9 Influenza A Molecular NEGATIVE Negative Influenza B Molecular NEGATIVE Negative 10 Laboratory test 08/08/2019 [facility] Legionella Urine SEE RESULT 11 finding Antigen BELOW CBC Auto Diff 08/06/2019 [facility] White Blood Count 9.7 10^3/uL Normal 3.5- [...] Cells % 0.1 Comp Metabolic Panel 08/06/2019 [facility] Sodium 138 mmol/L Normal 135-145 Potassium 4.1 [...] Egfr Non- 35.7 >60 Egfr 43.2 >60 12 Laboratory test finding 08/06/2019 [facility] C Reactive Protein 58.65 mg/L High <8.01 1 [id number] 2 Because ethnic data is not always [...] 5 Kidney failure <15 (or dialysis) 3 [id number] 4 SEE RESULT BELOW Name: LISETHFARSHADJOCELYNE A : [address]: Capri Elliott MD Acct: [id number] Unit: [id number] AGE: 78 Location: [place] [address] Re08/09/19 Dis: 08/13/19 SEX: F Status: DIS IN SPEC: [id number] OSCAR: 08/08/19-[address] [facility] [address]: Que Jay MD REQ: [id number] RECD: 08/08/19 STATUS: COMP LIZA DR: You Bains MD _ SOURCE: BLOOD,VENO SPDES: ORDERED: Blood Cult Procedure Result Reported Site Aerobic Culture Bottle Final 08/13/19- 1828 ML No Growth Day 5 Anaerobic Culture Bottle Final 08/13/19- 1828 ML No Growth Day 5 * ML - Main Lab . END OF REPORT DEPARTMENT OF PATHOLOGY, [address] [place] [address] Ramos Durand M.D. Director [facility] # [id number] 5 SEE RESULT BELOW Name: JOCELYNE MARTIN Raafela : [address]: Capri Elliott MD Acct: [id number] Unit: [id number] AGE: 78 Location: [place] [address] Re08/09/19 SEX: F Status: ADM IN SPEC: [id number] OSCAR: 08/08/[address] [facility] [address]: Que Jay MD REQ: [id number] RECD: 08/08/19 STATUS: FRANKI DE JESUS DR: You Bains MD _ SOURCE: URINE SPDESC: ORDERED: Urine Culture Procedure Result Reported Site Urine Culture Final 08/09/19- 1400 ML No Growth (<1,000 CFU/mL) * ML - Main Lab . END OF REPORT DEPARTMENT OF PATHOLOGY, [address] [place] [address] Ramos Durand M.D. Director [facility] # [id number] 6 *Ascorbic acid is present which may interfere with detection of blood. 7 Because ethnic data is not always [...] 5 Kidney failure <15 (or dialysis) 8 [facility] Severe Sepsis and Septic Shock Management Bundle Measure requires all lactic acids initially measuring >2.0 mmol/L be repeated. 9 Suboptimal collection technique may reduce sensitivity of test. Refer to the [facility] Test Catalog for collection information: [email or web address] As with all diagnostic procedures, the laboratory results obtained should be used in conjunction with other clinical information available to the physician, including confirmation by another method, as applicable. 10 Biomedical Engineering Professor: [id number] 11 SEE RESULT BELOW Name: JOCELYNE MARTIN : [address]: Que Jay MD Acct: [id number] Unit: [id number] AGE: 78 Location: ED Re08/08/19 SEX: F Status: REG ER SPEC: [id number] OSCAR: 08/08/19-[address]: Renetta Pagan NP REQ: [id number] RECD: 08/08/19 STATUS: FRANKI DE JESUS DR: You Umnaa MD _ SOURCE: URINE SPDESC: ORDERED: Legion [...] . END OF REPORT DEPARTMENT OF PATHOLOGY, [address] [place] [address] Ramos Durand M.D. Director [facility] # [id number] 12 Because ethnic data is not always [...] dialysis) Procedures Date Code Description Status 08/19/2019 90164 Pulse Oximetry Completed 01/20/2017 30196137 Mammogram Completed 07/27/2015 [id number] Mammogram Completed 05/20/2014 89058008 Mammogram Completed 09/18/2013 [id number] Colonoscopy Completed Medical Devices Description No Information Available Encounters Type Date Location Provider Dx Diagnosis Office Visit 08/19/2019 [facility] Office Veronica M79.605 Pain in left leg 11:00a Amaris, PROTOTYPE SEWER M79.604 Pain in right leg R60.0 Localized edema G89.4 Chronic pain syndrome M17.0 Bilateral primary osteoarthritis of knee K59.03 Drug induced constipation J18.9 Pneumonia, unspecified organism Office Visit 08/06/2019 3:00p [facility] Delfina Maxwell M79.605 Pain in left Collazo, WIRE 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 MACHINE OPERATOR leg M79.604 Pain in right leg R60.0 Localized edema Office Visit 07/30/2019 1:45p Main Office Veronica Glez M79.605 Pain in left PROTOTYPE SEWER leg G89.4 Chronic pain syndrome M17.0 Bilateral primary osteoarthritis of knee K59.03 Drug induced constipation F34.1 Dysthymic disorder Office Visit 05/05/2019 3:30p [facility] Veronica R60.0 Localized edema [facility] M25.511 Pain in right shoulder M17.0 Bilateral primary osteoarthritis of knee 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[place] [facility] G89.4 Chronic pain syndrome K59.03 Drug induced constipation F34.1 Dysthymic disorder Office Visit 04/05/2019 3:00p [facility] Lincoln Valle23 Encounter for Jeane Swartz immunization R60.0 Localized edema M25.511 Pain in right shoulder M17.0 Bilateral primary osteoarthritis of knee 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[place] coronary artery w/o ang pctrs Office Visit 03/25/2019 1:45p [facility] Office Veronica M25.561 Pain in Amaris, PROTOTYPE SEWER right knee M25.562 Pain in left knee G89.4 Chronic pain syndrome M25.511 Pain in right shoulder K59.03 Drug induced constipation M79.671 Pain in right foot M79.672 Pain in left foot K21.9 Gastro-esophageal reflux disease without esophagitis Assessments Date Code Description Provider 09/16/2019 R30.0 Dysuria [facility] 09/16/2019 N77.1 Vaginitis, vulvitis and vulvovaginitis in [facility] diseases classified elsewhere 09/16/2019 B35.4 Tinea corporis [facility], [facility] 09/16/2019 M79.604 Pain in right leg [facility] 09/16/2019 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 09/16/2019 G89.4 Chronic pain syndrome [facility], [facility] 09/16/2019 M17.0 Bilateral primary osteoarthritis of knee [facility] , [facility] 09/16/2019 D64.9 Anemia, unspecified [facility], [facility] 09/16/2019 N18.3 Chronic kidney disease, stage 3 (moderate) [facility], [facility] 08/19/2019 M79.605 Pain in left leg [facility], [facility] 08/19/2019 M79.604 Pain in right leg Veronica Amaris, [facility] 08/19/2019 R60.0 Localized edema Veronica Amaris, [facility] 08/19/2019 G89.4 Chronic pain syndrome Veronica Amaris, [facility] 08/19/2019 M17.0 Bilateral primary osteoarthritis of knee [facility] , [facility] 08/19/2019 K59.03 Drug induced constipation [facility], [facility] 08/19/2019 J18.9 Pneumonia, unspecified organism [facility], [facility] 08/06/2019 M79.605 Pain in left leg Delfina Ann Collazo, WIRE 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 MACHINE OPERATOR 08/06/2019 M79.604 Pain in right leg Delfina Ann Collazo, WIRE 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 MACHINE OPERATOR 08/06/2019 R60.0 Localized edema Delfinaghanshyam Mckeonano, WIRE 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 MACHINE OPERATOR 07/30/2019 M79.605 [facility] 07/30/2019 G89.4 Chronic pain syndrome [facility], [facility] 07/30/2019 M17.0 Bilateral primary osteoarthritis of knee [facility] , [facility] 07/30/2019 K59.03 Drug induced constipation [facility], [facility] 07/30/2019 F34.1 Dysthymic disorder [facility], [facility] 05/05/2019 R60.0 Localized edema [facility], [facility] 05/05/2019 M25.511 Pain in right shoulder [facility], [facility] 05/05/2019 M17.0 Bilateral primary osteoarthritis of knee [facility] , [facility] 05/05/2019 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 04/05/2019 R60.0 Localized edema Lincoln Swartz M.D. 04/05/2019 M25.511 Pain in right shoulder Lincoln Swartz M.D. 04/05/2019 M17.0 Bilateral primary osteoarthritis of knee Lincoln Swartz M.D. 04/05/2019 I25.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 [place] Lincoln Swartz M.D. coronary artery without angina pectoris 04/02/2019 N39.0 Urinary tract infection, site not specified Lincoln Swartz M.D. 03/25/2019 M25.561 Pain in right knee [facility], [facility] 03/25/2019 M25.562 Pain in left knee Veronica Amaris, [facility] 03/25/2019 G89.4 Chronic pain syndrome Veronicakarla Glez, [facility] 03/25/2019 M25.511 Pain in right shoulder Veronicadaisy Glez, [facility] 03/25/2019 K59.03 Drug induced constipation Veronicadaisy Glez, [facility] 03/25/2019 M79.671 Pain in right foot Veronica Amaris, [facility] 03/25/2019 M79.672 Pain in left foot Veronica Amaris, [facility] 03/25/2019 K21.9 Gastro-esophageal reflux disease without VY Russell esophagitis Plan of Treatment Future Appointment(s):12/15/2019 4:15 pm - VY Russell at [facility] Bwlgyn3509/16/2019 - JOSE MARIA RussellPR30.0 DysuriaNew Medication:Cephalexin 500 mg - 1 by mouth twice a day for 7 daysN77.1 Vaginitis, vulvitis and vulvovaginitis in diseases classified elsewhereNew Medication:Nystatin 173088 Unit/GM - apply to affected skin perineum twice a dayB35.4 Tinea feenuuvqE65.604 Pain in right legZ16.22 Resistance to vancomycin related gfpvsggllceM91.4 Chronic pain pqlwjvjqM58.0 Bilateral primary osteoarthritis of kneeD64.9 Anemia, dduuonbrqxxN01.3 Chronic kidney disease, stage 3 (moderate) AllComments:Medication Management Patient Understands medications he 's taking ? Yes No Are there Barriers to Adherence? Yes No Has the patient been asked about herbal supplements and therapies, andOTC meds? Yes No As always, we strongly encourage a healthy diet and making physical activity a part of your every day life. If you have questions about how or where to start, please contact the office.Follow up:3 months Functional Status Description No Information Available Mental Status Description No Information Available Referrals Refer to Dr Reason for Referral Status Appt Date Nelli Willett MD Consult and treat back pain. Office note, Closed radiology reports, labs and triage faxed. LT [address] [facility], [place] [address] [phone] [facility] & Lymphedema bilateral lower extremities- Scheduled 2018 [facility] [address] [place] [address] [place] [address] [phone] Bryson Mcgarry MD Bilateral hand pain ? injections jw Scheduled 2018 [facility] [address] [address] [phone] You Delgado MD for edema, congestive heart failure Scheduled 04/23/[address] [place] [address] [phone] Villa ALCOCER, Marisela knee pain , right shoulder pain Scheduled 04/26/2019 [facility] [address] [address] [phone]
--- OUTSIDE RECORDS SUMMARY | 2019-10-11 19:55 | XMS REPORT | Continuity of Care Document ---
:1940 External Reference #:[id number] Author Name Bryson Umana M.D. (transmitted by agent of provider Noemy Thompson) Address [address] [place] [phone] Care Team Providers Name Role Phone Roger Giron MD - Internal Care Team Information Roller Cleaner Veronica Montiel FNP - Family Care Team Information Roller Cleaner [phone] Manas Villeda MD - Family Care Team Information Roller Cleaner [phone] Medicine Estelita Brown MD - Vascular Surgery Care Team Information Roller Cleaner Arnold Holguin MD - Hospitalist Care Team Information Roller Cleaner [phone] Problems Active Problems Provider Date Restless legs Jaziel Hurst M.D. Onset: 04/06/2015 Dyspnea Sharon Peter MD Onset: 06/10/2016 Asthma without status asthmaticus Sharon Peter MD Onset: 06/10/2016 Disturbance in sleep behavior Sharon Peter MD Onset: 06/10/2016 Morbid obesity Sharon Peter MD Onset: 06/10/2016 Encounter for planned postprocedural Bennie Herron M.D., [facility], [facility] Onset: wound closure Angina pectoris Bryson Steiner [...] disease of Lennox Singh M.D. 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 Onset: 04/12/2019 Abscess of bursa of right knee Saw Vaca MD Onset: 08/25/2019 Cellulitis of knee Saw Vaca MD Onset: 08/25/2019 Social History Type Date Description Comments Sex Unknown Tobacco Use Start: Unknown Never Smoked Cigarettes Smoking Status Reviewed: 09/16/19 Never Smoked Cigarettes ETOH Use Rarely consumes [...] Doxycycline take one capsule 14caps M71.061 Saw Nola, 08/19/2019 Monohydrate twice a day x 7 100mg days. Capsules Doxycycline Take one capsule 10caps M71.061 Mp F 08/16/2019 Monohydrate every 12 hours for MD Leighton 100mg 5 days Capsules Amlodipine Besylate 1 by mouth every 90tabs I25.119 You Duggan 04/23/2019 5mg day Danny, DO FACC Tablets Amiodarone HCL 1/2 tab by mouth 90tabs You SKandi 07/23/2018 200mg every day Danny, DO FACC Tablets Torsemide As directed by 90tabs You SKandi 07/23/2018 20mg Tablets Digital Analytics Manager Danny DO FACC Plavix take one tablet by 90tabs You Duggan 02/27/2018 75mg Tablets mouth daily Danny, DO FACC Ezetimibe take one tablet 90tabs E78.5 You Duggan 06/27/2017 10mg Tablets daily, generic if Danny, DO FACC available Oxygen please use o2 at 1units R09.02 Sharon Peter, 08/15/2016 Misc 2l/min with exertion. pls provide pt with light wt conserving device for o2 Breo Ellipta 1 puff inhaled Feli daily Hazel, BALWINDER, RN, 100-25mcg/Inh Aerosol SE[employer]AL [place] BUNDLER-BC Shark Cartilage 2 by mouth twice Unknown [...] take 2 at bedtime Amaris, Dihydrochloride Veronica, SEASONAL [place] BUNDLER 1mg Tablets Nitrofurantoin Take 1 Capsule By Unknown Monohydrate/Macrocrys Mouth Twice Daily tals 100mg Capsules Daptomycin 500 mg iv every Unknown 500mg other day at [facility] Ventolin HFA 2 puffs by mouth Unknown [...] 99M You Delgado, DO [facility] 03/25/2018 Tetrofosmin, Per Unit Dose Up To 40 Millicuries Injection Immunizations CPT Code Status Date Vaccine Lot # 45835 Given 06/28/1997 Flu Vaccine Vital Signs Date Vital Result Comment 09/16/2019 11:26am Height 60 inches 5'0" Heart Rate 70 /min Body Temperature 96.9 F Pain Level 9 08/24/2019 11:15am Height 60 inches 5'0" Weight 235.00 lb stated Heart Rate 68 /min BP Systolic 132 mmHg BP Diastolic 68 mmHg Respiratory Rate 22 /min Body Temperature 96.8 F Pain Level 8 O2 % BldC Oximetry 97 % BMI (Body Mass Index) 45.9 kg/m2 Results Test Acquired Date Facility Test Result H/L Range Note CBC Auto 09/15/2019 [facility] White Blood 5.6 10^3/uL Normal 3.5-10.[address] [place] [address] [phone] Red Blood Count 3.05 10^6/uL Low 3.70-4.87 [...] Blood Cells % 0.0 Comp Metabolic 09/15/2019 [facility] Sodium 139 mmol/L Normal 135-[address] [place] [address] [phone] Potassium 4.3 mmol/L Normal 3.5-5.0 Chloride 105 [...] Egfr 45.4 >60 2 Laboratory test 09/15/2019 [facility] C Reactive 7.71 mg/L Normal <8.01 [address] [place] [address] [phone] Laboratory test 08/08/2019 [facility] Legionella SEE RESULT [address] [place] [address] [phone] Influenza A & B 08/08/2019 [facility] Flu AB (SEE NOTE) [address] [place] [address] [phone] Influenza A Molecular NEGATIVE Negative Influenza B Molecular NEGATIVE Negative 6 Laboratory test 08/08/2019 [facility] Lactic Acid 1.3 mmol/L Normal 0.5-2.0 [address] [place] [address] [phone] CBC Auto Diff 08/08/2019 [facility] White Blood 10.9 High 3.5- 10.[address] Count 10^3/[place] [address] [phone] Red Blood Count 3.12 10^6/uL Low 3.70-4.87 [...] Blood Cells % 0.0 Basic Metabolic 08/08/2019 [facility] Sodium 133 mmol/L Low 135-[address] [place] [address] [phone] Potassium 4.1 mmol/L Normal 3.5-5.0 Chloride 97 mmol/L Low 101-111 Co2 Carbon Dioxide 24 mmol/L Normal 22-32 Anion Gap 12 mmol/L High 2-11 Glucose 180 mg/dL High 70-100 Blood Urea Nitrogen 59 mg/dL High 6-24 Creatinine 2.49 mg/dL High 0.51-0.95 BUN/Creatinine Ratio 23.7 High 8-20 Calcium 9.0 mg/dL Normal 8.6-10.3 Egfr Non- 18.7 >60 Egfr 22.6 >60 8 Laboratory test 08/08/2019 [facility] C Reactive 177.86 mg/L High <8.[address] Protein [place], [place] [address] [phone] Urinalysis 08/08/2019 [facility] Urine Color Yellow Profile [address] [place] [address] [phone] Urine Appearance Clear Urine Specific Ponce 1.014 Normal 1.010-1.030 Urine pH 5.0 Normal [...] Casts Present Abnormal Absent Laboratory test 08/08/2019 [facility] Erythrocyte Sed 72 mm/Hr High 0-[address] Rate [place], [place] [address] [phone] Urine Culture And 08/08/2019 [facility] Urine Culture SEE RESULT [address] [place] [address] [phone] Laboratory test 08/08/2019 [facility] Blood Culture SEE RESULT [address] BELOW [place], [place] [address] [phone] 1 [id number] 2 Because ethnic data is not always [...] 5 Kidney failure <15 (or dialysis) 3 [id number] 4 SEE RESULT BELOW Name: JOCELYNE MARTIN : [address]: Que Jay MD Acct: [id number] Unit: [id number] AGE: 78 Location: ED Re08/08/19 SEX: F Status: REG ER SPEC: [id number] OSCAR: 08/08/[address]: Renetta Pagan NP REQ: [id number] RECD: 08/08/19 STATUS: FRANKI DE JESUS DR: [...] . END OF REPORT DEPARTMENT OF PATHOLOGY, [address] [place] [address] Ramos Durand M.D. Director [facility] # [id number] 5 Suboptimal collection technique may reduce sensitivity of test. Refer to the [employer] [facility] Test Catalog for collection information: [email or web address] As with all diagnostic procedures, the laboratory results obtained should be used in conjunction with other clinical information available to the physician, including confirmation by another method, as applicable. 6 Fund Director: [id number] [facility] Severe Sepsis and Septic Shock [...] [address]: Capri Elliott MD Acct: [id number] Unit: [id number] AGE: 78 Location: [place] [address] Re08/09/19 SEX: F Status: ADM IN SPEC: [id number] OSCAR: 08/08/19 [facility] DR: Que Jay MD REQ: [id number] RECD: 08/08/19 STATUS: COMP [facility] [address]: You Bains MD _ SOURCE: URINE SPDESC: ORDERED: Urine Culture Procedure Result Reported Site Urine Culture Final 08/09/19- 1400 ML No Growth (<1,000 CFU/mL) * ML - Main Lab . END OF REPORT DEPARTMENT OF PATHOLOGY, [address] [place] [address] Ramos Durand M.D. Director [facility] # [id number] 11 SEE RESULT BELOW Name: JOCELYNE MARTIN : [address]: Capri Elliott MD Acct: [id number] Unit: [id number] AGE: 78 Location: [place] [address]- Re08/09/19 Dis: 08/13/19 SEX: F Status: DIS IN SPEC: [id number] OSCAR: 08/08/19 [facility] DR: Que Jay MD REQ: [id number] RECD: 08/08/19 STATUS: FRANKI DE JESUS DR: You Bains MD _ SOURCE: BLOOD,VENO SPDESC: ORDERED: Blood Cult Procedure Result Reported Site Aerobic Culture Bottle Final 08/13/19- 8 ML No Growth Day 5 Anaerobic Culture Bottle Final 08/13/19- 8 ML No Growth Day 5 * ML - Main Lab . END OF REPORT DEPARTMENT OF PATHOLOGY, [address] [place] [address] Ramos Durand M.D. Director [facility] # [id number] Procedures Date Code Description Status 09/06/2019 59518 Negative Pressure Wound Therapy Greater Than 50CM Completed 09/06/2019 12317 Negative Pressure Wound Therapy Greater Than 50CM Completed 09/02/2019 67591 Negative Pressure Wound Therapy Less Than 50 Square CM Completed 09/02/2019 30452 Negative Pressure Wound Therapy Less Than 50 Square CM Completed 09/02/2019 02461 Secondary Closure Of Surgical Wound Or Dehiscence Completed Extensive Or Co 09/02/2019 03918 Secondary Closure Of Surgical Wound Or Dehiscence Completed Extensive Or Co 09/02/2019 03035 Debridement Completed Muscle/Fascia,Epidermis/Dermis/Tissue,Addtl 20 SQ CM 09/02/2019 57030 Debridement Completed Muscle/Fascia,Epidermis/Dermis/Tissue,Addtl 20 SQ CM 09/02/2019 45798 Debridement Completed Muscle/Fascia,Epidermis/Dermis/Tissue,Addtl 20 SQ CM 09/02/2019 50088 Debridement Skin, Subcutaneous Tissue & Muscle Completed 09/02/2019 96952 Debridement Skin, Subcutaneous Tissue & Muscle Completed 08/30/2019 81728 Negative Pressure Wound Therapy Less Than 50 Square CM Completed 08/30/2019 18214 Negative Pressure Wound Therapy Less Than 50 Square CM Completed 08/28/2019 92932 Negative Pressure Wound Therapy Greater Than 50CM Completed 08/28/2019 91957 Debridement Completed Muscle/Fascia,Epidermis/Dermis/Tissue,Addtl 20 SQ CM 08/28/2019 34162 Debridement Skin, Subcutaneous Tissue & Muscle Completed 08/25/2019 25899 Debridement Skin, Subcutaneous Tissue & Muscle Completed 08/25/2019 16279 Debridement Skin, Subcutaneous Tissue & Muscle Completed 08/25/2019 68440 Debridement Completed Muscle/Fascia,Epidermis/Dermis/Tissue,Addtl 20 SQ CM 08/25/2019 75331 Debridement Completed Muscle/Fascia,Epidermis/Dermis/Tissue,Addtl 20 SQ CM 08/25/2019 81289 Debridement Completed Muscle/Fascia,Epidermis/Dermis/Tissue,Addtl 20 SQ CM 08/25/2019 86843 Debridement Completed Muscle/Fascia,Epidermis/Dermis/Tissue,Addtl 20 SQ CM 08/25/2019 62565 Debridement Completed Muscle/Fascia,Epidermis/Dermis/Tissue,Addtl 20 SQ CM 08/25/2019 59465 Debridement Completed Muscle/Fascia,Epidermis/Dermis/Tissue,Addtl 20 SQ CM 08/25/2019 77748 Debridement Completed Muscle/Fascia,Epidermis/Dermis/Tissue,Addtl 20 SQ CM 08/25/2019 72300 Debridement Completed Muscle/Fascia,Epidermis/Dermis/Tissue,Addtl 20 SQ CM 08/25/2019 00491 Debridement Completed Muscle/Fascia,Epidermis/Dermis/Tissue,Addtl 20 SQ CM 08/25/2019 09270 Negative Pressure Wound Therapy Greater Than 50CM Completed 08/25/2019 80342 Negative Pressure Wound Therapy Greater Than 50CM Completed 08/25/2019 48972 Negative Pressure Wound Therapy Greater Than 50CM Completed 08/09/2019 98984 EKG, Interpretation Only Completed 08/09/2019 30280 Excision Tumor Soft Tissue Thigh/Knee Subcutaneous, 3 Completed CM Or > 08/09/2019 79316 Excision Tumor Soft Tissue Thigh/Knee Subcutaneous, 3 Completed CM Or > 05/25/2019 00492 Inject/Drain Joint/Bursa Small W/O US Completed 05/25/2019 50776 Inject/Drain Joint/Bursa Small W/O US Completed 04/23/2019 37133 EKG Tracing & Interpretation Completed 08/06/2016 [id number] Diabetic Retinal Eye Exam Completed Medical Devices Description No Information Available Encounters Type Date Location Provider Dx Diagnosis Office Visit 09/09/2019 [facility] L[facility].415 Cutaneous 8:25a Infectious Benson, EXAMINING OFFICER abscess of right Diseases lower limb B95.2 Enterococcus as the cause of diseases classified elsewhere Z16.22 Resistance to vancomycin related antibiotics N18.3 Chronic kidney disease, stage 3 (moderate) Office Visit 09/08/2019 [facility] L02.415 Cutaneous 8:24a For Infectious Benson, EXAMINING OFFICER abscess of Diseases right lower limb B95.2 Enterococcus as the cause of diseases classified elsewhere Z16.22 Resistance to vancomycin related antibiotics N18.3 Chronic kidney disease, stage 3 (moderate) Office Visit 09/08/2019 10:01a [facility] Narcisa N39.0 Urinary tract Assoc,pc SEAMUS Reis infection, site Hospitalists not specified B96.20 Unsp Escherichia coli as the cause of diseases classd elswhr 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 I50.32 Chronic diastolic (congestive) heart failure N18.9 Chronic kidney disease, unspecified I48.91 Unspecified atrial fibrillation Office Visit 09/07/2019 [facility] L02.415 Cutaneous 8:23a For Infectious Benson, EXAMINING OFFICER abscess of Diseases right lower limb B95.2 Enterococcus as the cause of diseases classified elsewhere Z16.22 Resistance to vancomycin related antibiotics N18.3 Chronic kidney disease, stage 3 (moderate) Office Visit 09/07/2019 10:00a [facility] Narcisa 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 Assoc,pc SEAMUS Reis kdny dis w hrt Hospitalists fail and stg 1-4/unsp chr kdny I50.32 Chronic diastolic (congestive) heart failure N18.9 Chronic kidney disease, unspecified Office Visit 09/06/2019 [facility] L02.415 Cutaneous 8:22a For Infectious Benson, EXAMINING OFFICER abscess of Diseases right lower limb B95.2 Enterococcus as the cause of diseases classified elsewhere Z16.22 Resistance to vancomycin related antibiotics N18.3 Chronic kidney disease, stage 3 (moderate) Office Visit 09/06/2019 10:00a [facility] Narcisa 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 Assoc,carli Reis, SEAMUS kdny dis w hrt Hospitalists fail and stg 1-4/unsp chr kdny I50.32 Chronic diastolic (congestive) heart failure N18.9 Chronic kidney disease, unspecified Office Visit 09/05/2019 10:00a [facility] 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 Assoc,carli Crowley DO kdny dis w hrt Hospitalists fail and stg 1-4/unsp chr kdny I50.32 Chronic diastolic (congestive) heart failure N18.3 Chronic kidney disease, stage 3 (moderate) Office Visit 09/04/[address] Hospitalian I48.91 Unspecified atrial 9:58a Assoccarli DO fibrillation Hospitalists G89.29 Other chronic pain N18.3 Chronic kidney disease, stage 3 (moderate) Office Visit 09/03/2019 [facility] I48.91 Unspecified atrial 9:56a Assoc,carli Crowley DO fibrillation Hospitalists N18.3 Chronic kidney disease, stage 3 (moderate) Office Visit 09/03/2019 [facility] L02.415 Cutaneous 9:41a For Infectious Benson, EXAMINING OFFICER abscess of Diseases right lower limb N18.3 Chronic kidney disease, stage 3 (moderate) B95.2 Enterococcus as the cause of diseases classified elsewhere Z16.22 Resistance to vancomycin related antibiotics Office Visit 09/02/2019 9:56a [facility] Daniela Lopez G89.29 Other chronic Assoccarli M.D. pain Hospitalists I48.91 Unspecified atrial fibrillation N18.3 Chronic kidney disease, stage 3 (moderate) [facility] Unspecified atrial 9:55a Assoc,carli Gregory D.O. 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 I50.32 Chronic diastolic (congestive) heart failure N18.3 Chronic kidney disease, stage 3 (moderate) Office Visit 09/01/2019 [facility] Fawn Slavabrittanybrandyn L02.415 Cutaneous 9:40a For Infectious Benson, EXAMINING OFFICER abscess of Diseases right lower limb N18.3 Chronic kidney disease, stage 3 (moderate) B95.2 Enterococcus as the cause of diseases classified elsewhere Z16.22 Resistance to vancomycin related antibiotics Office Visit 08/31/2019 [facility] Narcisa I48.91 Unspecified atrial 9:54a Assoc,pc SEAMUS Reis 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 I50.32 Chronic diastolic (congestive) heart failure N18.3 Chronic kidney disease, stage 3 (moderate) Office Visit 08/31/2019 [facility] Fawn Saulblakebrandyn L02.415 Cutaneous 9:36a For Infectious Benson, EXAMINING OFFICER abscess of Diseases right lower limb N18.3 Chronic kidney disease, stage 3 (moderate) B95.2 Enterococcus as the cause of diseases classified elsewhere Z16.22 Resistance to vancomycin related antibiotics Office Visit 08/30/2019 9:38a [facility] Seymour Forte L02.415 Cutaneous Infectious Jeane Beltrán abscess of Diseases right lower limb N18.9 Chronic kidney disease, unspecified B95.2 Enterococcus as the cause of diseases classified elsewhere Z16.22 Resistance to vancomycin related antibiotics Office Visit 08/30/2019 [facility] Shanda I48.91 Unspecified atrial 9:54a Assoc,carli Gregory D.O. 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 I50.32 Chronic diastolic (congestive) heart failure G89.29 Other chronic pain N18.3 Chronic kidney disease, stage 3 (moderate) E66.01 Morbid (severe) obesity due to excess calories Office Visit 08/29/2019 9:53a [facility] Arnold Holguin MD M79.674 Pain in right Assoc,pc toe(s) Hospitalists G89.29 Other chronic pain G25.81 Restless legs syndrome N18.3 Chronic kidney disease, stage 3 (moderate) Office Visit 08/28/2019 9:53a [facility] Arnold Holguin, I48.0 Paroxysmal atrial Asscarli dickinson MD fibrillation Hospitalists G89.29 Other chronic pain N18.3 Chronic kidney disease, stage 3 (moderate) E66.01 Morbid (severe) obesity due to excess calories Office Visit 08/27/2019 9:52a [facility] I48.0 Paroxysmal atrial Asscarli dickinson M.D. fibrillation Hospitalists G89.29 Other chronic pain E66.01 Morbid (severe) obesity due to excess calories D64.9 Anemia, unspecified Office Visit 08/27/2019 [facility] Fawn Ramos L02.415 Cutaneous 9:33a For Infectious Benson, EXAMINING OFFICER abscess of Diseases right lower limb N18.3 Chronic kidney disease, stage 3 (moderate) B95.2 Enterococcus as the cause of diseases classified elsewhere Office Visit 08/26/2019 9:52a [facility] I48.0 Paroxysmal atrial Asscarli dickinson M.D. fibrillation Hospitalists G89.29 Other chronic pain Office Visit 08/26/2019 [facility] Seymour Forte L02.415 Cutaneous abscess 9:33a Umair Beltrán M.D. of right lower Diseases limb Office Visit 08/25/2019 [facility] I48.0 Paroxysmal atrial 9:52a Assoccarli M.D. fibrillation Hospitalists G89.29 Other chronic pain N18.9 Chronic kidney disease, unspecified Office Visit 08/25/2019 9:32a [facility] Seymour Forte L02.415 Cutaneous Infectious Jeane Beltrán abscess of Diseases right lower limb N18.9 Chronic kidney disease, unspecified Office Visit 08/24/2019 9:51a [facility] I48.0 Paroxysmal atrial Asscarli dickinson M.D. fibrillation Hospitalists L08.9 Local infection of the skin and subcutaneous tissue, unsp G89.29 Other chronic pain G47.33 Obstructive sleep apnea (adult) (pediatric) N18.9 Chronic kidney disease, unspecified Office Visit 08/24/2019 9:30a [facility] Seymour Forte L02.415 Cutaneous Infectious Jeane Beltrán abscess of Diseases right lower limb N18.3 Chronic kidney disease, stage 3 (moderate) Office Visit 08/13/2019 9:09a [facility] Capri N17.9 Acute kidney Assoccarli M.D. failure, Hospitalists unspecified M25.561 Pain in right knee L03.115 Cellulitis of right lower limb I48.0 Paroxysmal atrial fibrillation E66.01 Morbid (severe) obesity due to excess calories Office Visit 08/12/2019 [facility] L72.9 Follicular cyst of 1:29p For Infectious Kelley, EXAMINING OFFICER the skin and Diseases subcutaneous tissue, unsp N18.3 Chronic kidney disease, stage 3 (moderate) I89.0 Lymphedema, not elsewhere classified Office Visit 08/12/2019 9:08a [facility] Capri N17.9 Acute kidney Assoccarli M.D. failure, Hospitalists unspecified I48.0 Paroxysmal atrial fibrillation Office Visit 08/11/2019 9:04a [facility] Chaitanya Forte L72.9 Follicular cyst of For Infectious Jeane Beltrán the skin and Diseases subcutaneous tissue, unsp M25.561 Pain in right knee Office Visit 08/11/2019 9:08a [facility] Capri N17.9 Acute kidney Asscarli dickinson M.D. failure, Hospitalists unspecified I48.0 Paroxysmal atrial fibrillation Office Visit 08/10/2019 [facility] L03.115 Cellulitis of 9:03a For Infectious Kelley, EXAMINING OFFICER right lower limb Diseases N18.3 Chronic kidney disease, stage 3 (moderate) I89.0 Lymphedema, not elsewhere classified Office Visit 08/10/2019 9:07a [facility] Capri N17.9 Acute kidney Asscarli dickinson M.D. failure, Hospitalists unspecified I48.0 Paroxysmal atrial fibrillation 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[place] coronary artery w/o ang pctrs Office Visit 08/09/2019 9:07a [facility] Capri N17.9 Acute kidney Assoccarli M.D. failure, Hospitalists unspecified I48.0 Paroxysmal atrial fibrillation 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[place] coronary artery w/o ang pctrs Office Visit 08/09/2019 [facility] Bryson M71.061 Abscess of bursa, 12:10p at [place] Umana M.D. 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, right hand Office Visit 05/11/2019 3:00p [place] Donna Romero, D64.89 Other specified [facility] Jeane anemias [place] Office Visit 05/06/2019 3:45p [place] Jaziel Duggan G25.0 Essential tremor Neurologic Serv Jeane Hurst [facility] G44.229 Chronic tension-type headache, not intractable I20.8 Other forms of angina pectoris Office Visit 04/23/2019 11:15a Cardiology You Duggan R60.0 Localized edema Services [facility] AT [facility] FACC 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[place] coronary artery w/o ang pctrs D64.9 Anemia, [...] peptic ulcer disease Office Visit 04/13/2019 3:00p [place] Donna Romero D64.9 Anemia, [facility] AT Jeane unspecified [place] R53.83 Other fatigue 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[place] coronary artery w/o ang pctrs 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 graft Office Visit 04/12/2019 3:15p [facility] Marisela Driver, M25.562 Pain in left at [place] M.D. knee M25.561 Pain in right knee M25.462 Effusion, left knee M25.461 Effusion, right knee M17.0 Bilateral primary osteoarthritis of knee M25.511 Pain in right shoulder Office 03/17/2019 [facility] Gastroenterology Agnes K21.0 Gastro-esophageal Visit 4:00p Veronica reflux disease with RODRIGO Boss esophagitis Assessments Date Code Description Provider 09/16/2019 L02.415 Cutaneous abscess of right lower Bryson Umana M.D. limb 09/16/2019 Z48.89 Encounter for other specified Bryson Umana M.D. 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 Reis PA-C kidney disease with heart failure and stage 1 through stage 4 chronic kidney disease, or unspecified chronic kidney disease 09/06/2019 B95.2 Enterococcus as the cause of Fawn BensonRODRIGO diseases classified elsewhere 09/06/2019 I50.32 Chronic diastolic (congestive) heart Narcisa Reis PA-C failure 09/06/2019 Z16.22 Resistance to vancomycin related Fawn Ramos RODRIGO Benson antibiotics 09/06/2019 N18.9 Chronic kidney disease, unspecified ALISE StewartC 09/06/2019 N18.3 Chronic kidney disease, stage 3 Fawn BensonRODRIGO (moderate) 09/05/2019 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 Luisa Crowley DO kidney disease with heart failure and stage 1 through stage 4 chronic kidney disease, or unspecified chronic kidney disease 09/05/2019 Z48.89 Encounter for other specified DIONNE Charlton C surgical aftercare 09/05/2019 I50.32 Chronic diastolic [...] abscess of right lower Fawn Benson , EXAMINING OFFICER limb 09/03/2019 N18.3 Chronic kidney disease, stage 3 Luisa Senner, DO (moderate) 09/03/2019 N18.3 Chronic kidney disease, stage 3 Fawn Benson NP (moderate) 09/03/2019 B95.2 Enterococcus as the cause of Fawn Richard Benson, EXAMINING OFFICER diseases classified elsewhere 09/03/2019 Z16.22 Resistance to [...] right lower Fawn Richard Benson NP limb 09/01/2019 I50.32 Chronic diastolic (congestive) heart Ivanna Palomo.O. failure 09/01/2019 Z48.89 Encounter for other specified PHYLLIS Beltran surgical aftercare 09/01/2019 N18.3 Chronic kidney disease, stage 3 Shanda Gregory DKandiO. (moderate) 09/01/2019 N18.3 Chronic kidney disease, stage 3 Fawn Benson NP (moderate) 09/01/2019 B95.2 Enterococcus as the cause of Fawn Benson NP diseases classified elsewhere 09/01/2019 Z16.22 Resistance to vancomycin related Fawn Benson NP antibiotics 08/31/2019 I48.91 Unspecified atrial fibrillation ALISE StewartC 08/31/2019 Z48.89 Encounter for other specified PHYLLIS [...] Cellulitis of right lower limb Mario Monet, RPA-C 08/30/2019 Z16.22 Resistance to vancomycin related [...] abscess of right lower Fawn Richard Benson , EXAMINING OFFICER limb 08/27/2019 G89.29 Other chronic pain Yuval Marshall M.D. 08/27/2019 Z48.89 Encounter for other specified PHYLLIS Art surgical aftercare 08/27/2019 E66.01 Morbid (severe) obesity due to Yuval Marshall M.D. excess calories 08/27/2019 N18.3 Chronic kidney disease, stage 3 Fawn Benson NP (moderate) 08/27/2019 D64.9 Anemia, unspecified Yuval Marshall M.D. 08/27/2019 B95.2 Enterococcus as the cause of Fawn Benson EXAMINING OFFICER diseases classified elsewhere 08/26/2019 I48.0 Paroxysmal atrial [...] Atherosclerotic heart disease of Capri Connolly M.D. [place] coronary artery without angina pectoris 08/10/2019 I89.0 Lymphedema, not elsewhere classified Fawn Benson, RODRIGO 08/09/2019 R94.31 Abnormal electrocardiogram [ECG] Zack Francis M.D. [EKG] 08/09/2019 M71.061 Abscess of bursa, right knee DIONNE Charlton 08/09/2019 N17.9 Acute kidney failure, unspecified Capri Connolly M.D. 08/09/2019 M71.061 Abscess of bursa, right knee Bryson Umana M.D. 08/09/2019 I48.0 Paroxysmal atrial fibrillation Capri Connolly M.D. 08/09/2019 M71.061 Abscess of bursa, right knee Bryson Umana M.D. 08/09/2019 I25.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 Capri Connolly M.D. [place] coronary artery without angina pectoris 08/08/2019 N17.9 Acute kidney failure, unspecified Renetta Banegas, RODRIGO 08/08/2019 M71.21 Synovial cyst of popliteal space Renetta Banegas NP [[place]], right knee 08/08/2019 I12.9 Hypertensive chronic kidney disease Renetta Banegas NP with stage 1 through stage 4 chronic kidney disease, or unspecified chronic kidney disease 08/08/2019 N18.9 Chronic kidney disease, unspecified Renetta Banegas, RODRIGO 08/08/2019 I48.0 Paroxysmal atrial fibrillation Renetta Banegas, RODIRGO 08/08/2019 F41.8 Other specified anxiety disorders Renetta [...] Atherosclerotic heart disease of You Delgado, DO [facility] [place] coronary artery with 04/23/2019 D64.9 Anemia, unspecified You Delgado, DO FACC 04/23/2019 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 You Delgado DO [facility] graft 04/23/2019 I48.0 Paroxysmal atrial fibrillation You Delgado DO FACC 04/23/2019 D64.89 Other specified anemias You Delgado DO FACC 04/23/2019 I50.32 Chronic diastolic (congestive) heart You Delgado DO [facility] failure 04/23/2019 N18.9 Chronic kidney disease, unspecified You Delgado DO FACC 04/23/2019 G25.0 Essential tremor You SKandi Delgado, DO [facility] 04/23/2019 D47.1 Chronic myeloproliferative disease You Urban Delgado, DO [facility] 04/23/2019 I10 Essential (primary) hypertension You SKandi Delgado, DO [facility] 04/23/2019 E78.5 Hyperlipidemia, unspecified You SKandi Delgado, DO [facility] 04/23/2019 I25.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 04/13/2019 R53.83 Other fatigue Avinash Romero M.D. 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 [place] coronary artery with 04/13/2019 Z95.1 Presence of [...] Driver M.D. 03/17/2019 K21.0 Gastro-esophageal reflux disease Agnes oBss NP with esophagitis Plan of Treatment Future Appointment(s):09/29/2019 3:45 pm - Bryson Umana M.D. at [facility] at [facility]30/28/2020 1:00 pm - Fawn Benson NP at [facility]/31/2020 3:00 pm - Martine Landers NP at [facility]11/18/2019 3:45 pm - Lincoln Norman MD at [facility] Dermatology AT [facility]22/04/2020 12:30 pm - Nelli Willett MD at [facility]09/16/2019 - Bryson Umana M.D.L02.415 Cutaneous abscess of right lower limbFollow up:Follow up: 2 ebrzrM00.89 Encounter for other specified surgical aftercare Functional Status Description No Information Available Mental Status Description No Information Available Referrals Description No Information Available
--- NOTE | 2019-10-11 20:10 | UC ---
Skin Complaint HPI - HPI Summary HPI Summary: 78 yo woman with a history of CAD and CKD, chronic lymphedema and multiple medical problems, who has a history of right leg cyst and abscess which required surgical intervention, additional debridement, and wound vac treatment. Culture in July was positive for vanco resistant E. Coli, and she was treated with daptomycin in August with improvement. Hospitalized for a month, [place] [facility] [place] with several continued treatment with iv daptomycin. \\ She has VNS in home assessment, who alerted staff at [facility] today of increase in pain and erythema. She has a wound vac in the right medial knee with increased erythema around that site, with a patchy erythema in the anterior thigh and an area of erythema from the lateral thigh to the right buttock area. She is afebrile today, and labs which were done show a hgb of 9.7 and a normal white count. She is monitored by Dr. Romero and by Dr. Simpson, pending office visit with Dr. Simpson tomorrow. She had a telemed evaluation with one of the nurse practitioners at [facility] today, but she was asked to come here because the leg could not be well visualized. - History of Current Complaint Time Seen by Provider: 10/11/19 19:59 Stated Complaint: Skin issue Hx Obtained From: Patient Onset/Duration: Gradual Onset, Lasting Days - 4 Skin Exposure Onset/Duration: Weeks Ago Timing: Constant Onset Severity: Severe Current Severity: Severe Location: Diffuse - right anterior and right anterolateral thigh to the right buttock Aggravating Factor(s): Touch Alleviating Factor(s): Nothing Associated Signs & Symptoms: Positive: Red Streaks - Allergy/Home Medications Allergies/Adverse Reactions: Allergies Allergy/AdvReac Type Severity Reaction Status Date / Time atorvastatin [From Lipitor] Allergy See Comment Verified 10/11/19 20:00 imipramine Allergy Unknown Verified 10/11/19 20:00 Reaction Details Iodinated Contrast Media Allergy Nausea Verified 10/11/19 20:00 [Iodinated Contrast- Oral and IV Dye] misoprostol [From Cytotec] Allergy Itching Verified 10/11/19 20:00 naproxen Allergy Itching Verified 10/11/19 20:00 nitrofurantoin Allergy Unknown Verified 10/11/19 20:00 Reaction Details theophylline [From Uniphyl] Allergy Unknown Verified 10/11/19 20:00 Reaction Details tiagabine [From Gabitril] Allergy Rash Verified 10/11/19 20:00 tizanidine Allergy Unknown Verified 10/11/19 20:00 Reaction Details fentanyl AdvReac Dizziness Verified 10/11/19 20:00 [id number] Reductase AdvReac Vomiting Verified 10/11/19 20:00 Inhibitor Home Medications: Home Medications Albuterol 2.5MG/3ML (0.083%)* [Ventolin 2.5 MG/3 ML NEB.MADONNA*] 1 aer NEB QID PRN 01/20/18 [History Confirmed 10/11/19] Albuterol HFA INHALER* [Ventolin HFA Inhaler*] 2 puff INH Q6HR PRN 01/20/18 [ History Confirmed 10/11/19] Fluticasone NASAL SPRAY 50MCG* [Flonase NASAL SPRAY 50MCG*] 1 spray BOTH NARES BEDTIME 01/20/18 [History Confirmed 10/11/19] Montelukast Sodium TAB* [Singulair 10 MG TAB*] 10 mg PO DAILY 01/20/18 [History Confirmed 10/11/19] Vitamin B Complex CAP* [B Complex CAP*] 1 cap PO QAM 01/20/18 [History Confirmed 10/11/19] Clopidogrel TAB* [Plavix TAB*] 75 mg PO DAILY 04/01/18 [History Confirmed ] Amiodarone TAB* [Cordarone Tab*] 100 mg PO DAILY 05/20/18 [History Confirmed ] Calcium Carb,Gluc/Mag Ox,Gluc [Calcium Magnesium Caplet] 1 tab PO DAILY [History Confirmed 10/11/19] Cholecalciferol TAB* [Vitamin D TAB*] 2,000 units PO DAILY 05/20/18 [History Confirmed 10/11/19] Ezetimibe TAB* [Zetia TAB*] 10 mg PO DAILY 05/20/18 [History Confirmed 10/11/19] Fluticasone HFA 110 mcg(NF) [Flovent HFA 110 mcg(NF)] 1 puff INH BID 05/20/18 [ History Confirmed 10/11/19] LevoCETirizine TAB (NF) [Xyzal TAB (NF)] 5 mg PO DAILY 05/20/18 [History Confirmed 10/11/19] Levothyroxine TAB* [Synthroid TAB*] 175 mcg PO DAILY 05/20/18 [History Confirmed 10/11/19] Melatonin 10 mg PO BEDTIME 05/20/18 [History Confirmed 10/11/19] Metoprolol Succinate XL TAB* [Toprol XL TAB*] 25 mg PO BID 05/20/18 [History Confirmed 10/11/19] Multivitamin with Folic Acid [One Daily Essential Tablet] 400 mcg PO DAILY 05/20 [History Confirmed 10/11/19] Omeprazole CAP (NF) [Prilosec CAP* 20 MG] 20 mg PO BID 05/20/18 [History Confirmed 10/11/19] Pramipexole TAB* [Mirapex TAB*] 2 mg PO BEDTIME 05/20/18 [History Confirmed ] Primidone 50 mg TAB (*) [Mysoline 250 mg TAB (*)] 150 mg PO BEDTIME 05/20/18 [ History Confirmed 10/11/19] Sennosides/Docusate Sodium [Senna-S Tablet] 2 tab PO BID 05/20/18 [History Confirmed 10/11/19] Shark Cartilage [Shark Fin Cartilage] 1,000 mg PO BID 05/20/18 [History Confirmed 10/11/19] Torsemide TAB* [Demadex 20 MG*] 20 mg PO DAILY 05/20/18 [History Confirmed 10/10] Venlafaxine EXT RELEASE CAP* [Effexor Xr CAP*] 37.5 mg PO BEDTIME 05/20/18 [ History Confirmed 10/11/19] amLODIPine TAB* [Norvasc 5 mg TAB*] 10 mg PO DAILY 05/20/18 [History Confirmed 10/11/19] Docusate CAP* [Colace Cap*] 200 mg PO BID cap 09/08/19 [Rx Confirmed 10/11/19] HYDROcodone/ACETAMIN 5-325 MG* [Gallina 5-325 TAB*] 1 - 2 tab PO Q4H PRN #40 tab MDD 9 09/09/19 [Rx Confirmed 10/11/19] Nitrofurantoin Monohyd/M-Cryst [Macrobid 100 mg Capsule] 100 mg PO BID 10/11/19 [History Confirmed 10/11/19] PMH/Surg Hx/FS Hx/Imm Hx Endocrine History: Hypothyroidism Cardiovascular History: Cardiac Disease, Congestive Heart Failure Respiratory History: COPD, Other - obstructive sleep apnea. GI/ History: Renal Disease - stage 3 CKD - Surgical History Surgical History: Yes Surgery Procedure, Year, and Place: 2008 FUSION LOW BACK. TSP -LSP [place]/SCREWS 2004-- 2010 -TOTAL OF 5 SURGERIES LAST ONE 2011 Xs 2. 2006BILATERAL HIP REPLACEMENT. 06/2003 LEFT HEEL TARSAL TUNNEL -. 12/2004 WART -REMOVED FROM EYELID. 2002 CARPAL TUNNEL - [place]. 2002 Lt KNEE -2 & 09/2002 & 01/2003 Rt KNEE - 3 TIMES - ARTHROSCOPIC. 2007 RIGHT BREAST LUMPECTOMY. 1999 CHOLECYSTECTOMY. TONSILECTOMY- as child. UMBILICAL HERNIA REPAIR. 2008 APPENDECTOMY. 06/2005 [place] BREAST REDUCTION. Lt THUMB - GANGLION CYST. T2007 LEFT TOTAL HIP. Rt ARM - "LUMP" REMOVED-. 2005 RT HIP TOTAL REPLACEMENT. 01/2018 CARDIAC STENT. 07/07 heart cath [place] - Family History Known Family History: Positive: Cardiac Disease - Father used to use NTG. 3 brothers have had CABG. 4th had CVA and VT., Diabetes - Social History Lives: With Family Alcohol Use: None Alcohol Amount: reports only a couple of drinks 4 times per year Substance Use Type: None Smoking Status (MU): Never Smoked Tobacco Have You Smoked in the Last Year: No - Immunization History Most Recent Influenza Vaccination: Fall 2018 Most Recent Tetanus Shot: current Most Recent Pneumonia Vaccination: in the past Review of Systems All Other Systems Reviewed And Are Negative: Yes Constitutional: Positive: Fatigue Skin: Positive: Rash Eyes: Positive: Eye Redness ENT: Positive: Negative Respiratory: Positive: Shortness Of Breath - chronic hypoxia and uses oxygen at home. Negative: Cough Cardiovascular: Negative: Chest Pain Gastrointestinal: Positive: Negative Genitourinary: Positive: Other - hx of UTI, has indwelling catheter. Motor: Positive: Decreased ROM - right hip has been replaced--aware of increased pain with weight bearing. Musculoskeletal: Positive: Arthralgia Neurological/Mental Status: Positive: Weakness Psychological: Positive: Other - low spirits, dreads return to hospital Is Patient Immunocompromised?: Yes Physical Exam Triage Information Reviewed: Yes Appearance: Ill-Appearing, Obese, Other: - hypoxic on entry with O2 sat of 79-- she left her portable oxygen at home. Vital Signs Reviewed: Yes Eyes: Positive: Conjunctiva Inflamed, Other: - bilateral lid erythema ENT: Positive: Pharynx normal Neck: Positive: No Lymphadenopathy Respiratory: Positive: No respiratory distress, No accessory muscle use, Decreased breath sounds. Negative: Crackles, Rhonchi Cardiovascular: Positive: No Murmur - heart sounds distant, no murmur appreciated. Abdomen Description: Positive: Nontender Musculoskeletal: Positive: ROM Limited @ - right hip--pain with movement. Reports diffuse arhritis. Neurological: Positive: Alert, Muscle Tone Normal Psychological Exam: Other - tearful Skin Exam: Other - area around woundvac in medial knee is deeply erythematous and indurated. Patchy erythema of the right anterior thigh. Dark erythematous skin, indurated from lateral thigh to the right buttock area. Acutely tender in the lateral thigh. Skin: Positive: Other - Chronic lymphedema. Course/Dx - Course Course Of Treatment: Advised transfer to ER for evaluation and likely admission for treatment of cellulitis related to chronic wound in the right leg, which is currently being treated with a wound vac. She has a hx of vancomycin resistant Enterococcus. - Differential Diagnoses - Skin Complaint Differential Diagnoses: Cellulitis, Other - lymphedema, DVT - Diagnoses Provider Diagnosis: Cellulitis of right leg - Physician Notification/Consults Discussed Patient Care With: Adalid Cornell Time Discussed With Above Provider: 20:40 Discharge ED - Sign-Out/Discharge Documenting (check all that apply): Patient Departure All imaging exams completed and their final reports reviewed: No Studies - Discharge Plan Condition: Stable Disposition: TRANS HIGHER LVL OF CARE FAC Patient Education Materials: Cellulitis (ED) Referrals: Manas Villeda MD [Primary Care Provider] - Additional Instructions: Please go straight to the emergency room for assessment of your right leg cellulitis. - Billing Disposition and Condition Condition: STABLE Disposition: Trans Higher Lvl of Care Fac
[2019-10-11 20:11] VITALS: BP 172/75
[2019-10-11] MEDS ORDERED: HYDROcodone/ACETAMIN 5-325 MG* 1 TAB PO ONE (20:59)
== END 2019-10-11 21:10 | disposition short-term general hospital (02) ==
LOC: UCCORT 18:24
DX: L03.115 Cellulitis of right lower limb (principal); I48.91 Unspecified atrial fibrillation; 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 kidney disease with heart failure and stage 1 through stage 4 chronic kidney disease, or unspecified chronic kidney disease; N18.3 Chronic kidney disease, stage 3 (moderate); I50.9 Heart failure, unspecified; I25.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 native coronary artery without angina pectoris; E78.5 Hyperlipidemia, unspecified; E07.9 Disorder of thyroid, unspecified; E78.00 Pure hypercholesterolemia, unspecified; J45.909 Unspecified asthma, uncomplicated; K21.9 Gastro-esophageal reflux disease without esophagitis; D63.1 Anemia in chronic kidney disease; Z96.643 Presence of artificial hip joint, bilateral; Z90.49 Acquired absence of other specified parts of digestive tract; Z95.5 Presence of coronary angioplasty implant and graft; Z79.01 Long term (current) use of anticoagulants; Z79.890 Hormone replacement therapy; Z79.899 Other long term (current) drug therapy; Z88.5 Allergy status to narcotic agent; Z88.8 Allergy status to other drugs, medicaments and biological substances; Z88.1 Allergy status to other antibiotic agents; Z91.041 Radiographic dye allergy status
CPT/HCPCS: 99212; G0463

== ENCOUNTER 2019-10-11 22:51 | Inpatient (IN) | payer MEDICARE ==
[2019-10-11] MEDS ORDERED: NS 0.9% 1000 ML** 1,000 ML IV ONE (23:28)
--- NOTE | 2019-10-11 23:34 | ED ---
Lower Extremity - HPI Summary HPI Summary: Patient complains of pain, erythema, edema and extra warmth from right foot up to right buttock x 3 days. Recent history of admission to [facility] [facility] for cellulitis and abscess of right knee 09/07/19 with orthopedic debridement of right knee and wound VAC placement. Patient was positive for VRE. Received daptomycin IV 2 at convenient care after discharge. Last dose 09/15/19. Wound VAC in place. Denies trauma, fever, cough, sore throat, CP, SOB, N/V/D, abdominal pain, change in urine, change in BM. Currently being treated with Macrobid for UTI. Sent by PCP to convenient care, then sent to ED for further evaluation. Medical history is asthma, A. fib, CK D, CAD, lymphedema, CHF, NSTEMI. - History of Current Complaint Chief Complaint: EDExtremityLower Stated Complaint: R LEG PAIN SENT FOR CC PER PT Time Seen by Provider: 10/11/19 23:10 Hx Obtained From: Patient Mechanism Of Injury: Unknown Onset of Pain: Days Onset/Duration: Days Severity Initially: Moderate Severity Currently: Severe Pain Intensity: 9 Pain Scale Used: 0-10 Numeric Timing: Constant Location: Is Diffuse Character Of Pain: Dull, Aching, Throbbing Associated Signs And Symptoms: Positive: Swelling, Redness Aggravating Factor(s): Ambulation, Movement Able to Bear Weight: No - Allergies/Home Medications Allergies/Adverse Reactions: Allergies Allergy/AdvReac Type Severity Reaction Status Date / Time atorvastatin [From Lipitor] Allergy See Comment Verified 10/11/19 23:53 imipramine Allergy Unknown Verified 10/11/19 23:53 Reaction Details Iodinated Contrast Media Allergy Nausea Verified 10/11/19 23:53 [Iodinated Contrast- Oral and IV Dye] misoprostol [From Cytotec] Allergy Itching Verified 10/11/19 23:53 naproxen Allergy Itching Verified 10/11/19 23:53 nitrofurantoin Allergy Unknown Verified 10/11/19 23:53 Reaction Details theophylline [From Uniphyl] Allergy Unknown Verified 10/11/19 23:53 Reaction Details tiagabine [From Gabitril] Allergy Rash Verified 10/11/19 23:53 tizanidine Allergy Unknown Verified 10/11/19 23:53 Reaction Details fentanyl AdvReac Dizziness Verified 10/11/19 23:53 Wnddrmm-Yib-Nxk Reductase AdvReac Vomiting Verified 10/11/19 23:53 Inhibitor Home Medications: Home Medications Albuterol 2.5MG/3ML (0.083%)* [Ventolin 2.5 MG/3 ML NEB.MADONNA*] 1 aer NEB QID PRN 01/20/18 [History Confirmed 10/12/19] Albuterol HFA INHALER* [Ventolin HFA Inhaler*] 2 puff INH Q6HR PRN 01/20/18 [ History Confirmed 10/12/19] Fluticasone NASAL SPRAY 50MCG* [Flonase NASAL SPRAY 50MCG*] 1 spray BOTH NARES BID 01/20/18 [History Confirmed 10/12/19] Montelukast Sodium TAB* [Singulair 10 MG TAB*] 10 mg PO DAILY 01/20/18 [History Confirmed 10/12/19] Vitamin B Complex CAP* [B Complex CAP*] 1 cap PO QAM 01/20/18 [History Confirmed 10/12/19] Clopidogrel TAB* [Plavix TAB*] 75 mg PO DAILY 04/01/18 [History Confirmed ] Amiodarone TAB* [Cordarone Tab*] 100 mg PO DAILY 05/20/18 [History Confirmed ] Calcium Carb,Gluc/Mag Ox,Gluc [Calcium Magnesium Caplet] 1 tab PO DAILY [History Confirmed 10/12/19] Cholecalciferol TAB* [Vitamin D TAB*] 2,000 units PO DAILY 05/20/18 [History Confirmed 10/12/19] Ezetimibe TAB* [Zetia TAB*] 10 mg PO DAILY 05/20/18 [History Confirmed 10/12/19] Fluticasone HFA 110 mcg(NF) [Flovent HFA 110 mcg(NF)] 1 puff INH BID 05/20/18 [ History Confirmed 10/12/19] LevoCETirizine TAB (NF) [Xyzal TAB (NF)] 5 mg PO DAILY 05/20/18 [History Confirmed 10/12/19] Levothyroxine TAB* [Synthroid TAB*] 175 mcg PO DAILY 05/20/18 [History Confirmed 10/12/19] Melatonin 10 mg PO BEDTIME 05/20/18 [History Confirmed 10/12/19] Metoprolol Succinate XL TAB* [Toprol XL TAB*] 25 mg PO BID 05/20/18 [History Confirmed 10/12/19] Multivitamin with Folic Acid [One Daily Essential Tablet] 400 mcg PO DAILY 05/20 [History Confirmed 10/12/19] Omeprazole CAP (NF) [Prilosec CAP* 20 MG] 20 mg PO BID 05/20/18 [History Confirmed 10/12/19] Pramipexole TAB* [Mirapex TAB*] 2 mg PO BEDTIME 05/20/18 [History Confirmed ] Primidone 50 mg TAB (*) [Mysoline 250 mg TAB (*)] 150 mg PO BEDTIME 05/20/18 [ History Confirmed 10/12/19] Sennosides/Docusate Sodium [Senna-S Tablet] 2 tab PO BID 05/20/18 [History Confirmed 10/12/19] Shark Cartilage [Shark Fin Cartilage] 1,000 mg PO BID 05/20/18 [History Confirmed 10/12/19] Torsemide TAB* [Demadex 20 MG*] 20 mg PO DAILY 05/20/18 [History Confirmed 10/11] amLODIPine TAB* [Norvasc 5 mg TAB*] 10 mg PO DAILY 05/20/18 [History Confirmed 10/12/19] Docusate CAP* [Colace Cap*] 200 mg PO BID cap 09/08/19 [Rx Confirmed 10/12/19] Hydrocodone/Acetaminophen [Hydrocodone/Acetaminophen 10-325 mg] 2 tab PO Q4H PRN 10/11/19 [History Confirmed 10/12/19] Nitrofurantoin Monohyd/M-Cryst [Macrobid 100 mg Capsule] 100 mg PO BID 10/11/19 [History Confirmed 10/12/19] Venlafaxine EXT RELEASE CAP* [Effexor Xr CAP*] 37.5 mg PO BEDTIME 10/12/19 [ History Confirmed 10/12/19] PMH/Surg Hx/FS Hx/Imm Hx Endocrine/Hematology History: Reports: Hx Thyroid Disease, Hx Anemia - ON DAILY IRON, 01/2018 WHILE HOSPITALIZED RECEIVE 7 UNITS BLOOD Denies: Hx Diabetes Cardiovascular History: Reports: Hx Angina, Hx Congestive Heart Failure, Hx Coronary Artery Disease, Hx Hypercholesterolemia, Hx Hypertension Denies: Hx Myocardial Infarction, Hx Pacemaker/ICD, Hx Valvular Heart Disease Comment Only: Other Cardiovascular Problems/Disorders - belt lacer, dr stanley Respiratory History: Reports: Hx Asthma, Hx Chronic Obstructive Pulmonary Disease (COPD) - O2 2L at night not CPAP, Hx Pneumonia, Hx Sleep Apnea - SLIGHT , USES OXYGEN AT NIGHT AND PRN DURING DAY GI History: Reports: Hx Gastroesophageal Reflux Disease - ON DAILY MEDS, Hx Gastrointestinal Bleed, Hx Hiatal Hernia, Hx Ulcer - CURED WITH MEDS 2016 History: Reports: Hx Renal Disease - stage 3 CKD, Other Problems/ Disorders - Tx BY DR ALICIA ALCOCER IN [place] Denies: Hx Dialysis Musculoskeletal History: Reports: Hx Arthritis - STATES ALL OVER STATES NECK TO TOES, Hx Back Problems, Hx Fibromyalgia, Hx Orthopedic Injury, Other Musculoskeletal History - FIBROMYALGIA Sensory History: Reports: Hx Cataracts - BILATERAL, Hx Hearing Problem Denies: Hx Contacts or Glasses, Hx Hearing Aid Opthamlomology History: Reports: Hx Cataracts - BILATERAL Denies: Hx Contacts or Glasses Neurological History: Reports: Hx Headaches - with chest pain gets severe headaches, Hx Transient Ischemic Attacks (TIA) Denies: Hx Dementia, Hx Seizures Psychiatric History: Reports: Other Psychiatric Issues/Disorders - claustrophobia Denies: Hx Panic Disorder - Surgical History Surgery Procedure, Year, and Place: 2008 FUSION LOW BACK. TSP -LSP [place] RODS/SCREWS 2004-- 2010 -TOTAL OF 5 SURGERIES LAST ONE 2011 Xs 2. 2006BILATERAL HIP REPLACEMENT. 06/2003 LEFT HEEL TARSAL TUNNEL -. 12/2004 WART -REMOVED FROM EYELID. 2002 CARPAL TUNNEL - [place]. 2002 Lt KNEE -2 & 09/2002 & 01/2003 Rt KNEE - 3 TIMES - ARTHROSCOPIC. 2007 RIGHT BREAST LUMPECTOMY. 1999 CHOLECYSTECTOMY. TONSILECTOMY- as child. UMBILICAL HERNIA REPAIR. 2008 APPENDECTOMY. 06/2005 [place] BREAST REDUCTION. Lt THUMB - GANGLION CYST. T2007 LEFT TOTAL HIP. Rt ARM - "LUMP" REMOVED-. 2005 RT HIP TOTAL REPLACEMENT. 01/2018 CARDIAC STENT. 07/07 heart cath [place] Hx Anesthesia Reactions: Yes - ALWAYS RECEIVES ANTI NAUSEA MEDS PRE-OP - Immunization History Date of Influenza Vaccine: 05/15/18 Infectious Disease History: No Infectious Disease History: Denies: Hx Clostridium Difficile, Hx Hepatitis, Hx of Known/Suspected MRSA, Traveled Outside the [place] in Last 30 Days - Family History Known Family History: Positive: Cardiac Disease - Father used to use NTG. 3 brothers have had CABG. 4th had CVA and NM., Diabetes - Social History Alcohol Use: None Alcohol Amount: reports only a couple of drinks 4 times per year Hx Substance Use: No Substance Use Type: Reports: None Hx Tobacco Use: No Smoking Status (MU): Never Smoked Tobacco Have You Smoked in the Last Year: No Review of Systems Constitutional: Negative Eyes: Negative ENT: Negative Cardiovascular: Negative Respiratory: Negative Gastrointestinal: Negative Genitourinary: Negative Musculoskeletal: Other Skin: Other Neurological/Mental Status: Negative Psychological: Normal All Other Systems Reviewed And Are Negative: Yes Physical Exam - Summary Physical Exam Summary: Erythema, extra warmth from right foot to right knee, and along upper lateral thigh to right buttock. Concentrated erythema around site of wound vac on medial right knee. No evidence of abscess noted. Patient states some loss of sensation along the anterior benton status post knee debridement. Otherwise PMS intact distally. Triage Information Reviewed: Yes Vital Signs On Initial Exam: Initial Vitals Temp Pulse Resp BP Pulse Ox 98.5 F 82 16 179/65 97 10/11/19 22:52 10/11/19 22:52 10/11/19 22:52 10/11/19 22:52 10/11/19 22:52 Vital Signs Reviewed: Yes Appearance: Positive: Well-Appearing Skin: Positive: Warm Head/Face: Positive: Normal Head/Face Inspection Eyes: Positive: Normal Neck: Positive: Supple Respiratory/Lung Sounds: Positive: Clear to Auscultation Cardiovascular: Positive: Normal Abdomen Description: Positive: Nontender Musculoskeletal: Positive: Normal Neurological: Positive: Normal Psychiatric: Positive: Normal AVPU Assessment: Alert - Ramesh Coma Scale Best Eye Response: 4 - Spontaneous Best Motor Response: 6 - Obeys Commands Best Verbal Response: 5 - Oriented Coma Scale Total: 15 Procedures - Sedation Patient Received Moderate/Deep Sedation with Procedure: No Diagnostics - Vital Signs Vital Signs Temp Pulse Resp BP Pulse Ox 10/11/19 22:52 98.5 F 82 16 179/65 97 - Laboratory Result Diagrams: 10/11/19 23:39 10/11/19 23:39 Lab Statement: Any lab studies that have been ordered have been reviewed, and results considered in the medical decision making process. Lower Extremity Course/Dx - Course Course Of Treatment: Patient complains of pain, erythema, edema and extra warmth from right foot up to right buttock x 3 days. Recent history of admission to [facility] [place] [facility] for cellulitis and abscess of right knee 09/07/19 with orthopedic debridement of right knee and wound VAC placement. Patient was positive for VRE. Received daptomycin IV 2 at convenient care after discharge. Last dose 09/15/19. Wound VAC in place. Denies trauma, fever, cough , sore throat, CP, SOB, N/V/D, abdominal pain, change in urine, change in BM. Currently being treated with Macrobid for UTI. Sent by PCP to convenient care, then sent to ED for further evaluation. Medical history is asthma, A. fib, CKD , CAD, lymphedema, CHF, NSTEMI. BP 179/65. Vital signs otherwise within normal limits. CRP 176. Labs otherwise patient baseline. Admitted to hospitalist. - Diagnoses Provider Diagnoses: Cellulitis, VRE (vancomycin-resistant Enterococci) infection, Anemia, CKD ( chronic kidney disease) Discharge ED - Sign-Out/Discharge Documenting (check all that apply): Patient Departure - Discharge Plan Condition: Stable Disposition: ADMITTED TO [facility] - Billing Disposition and Condition Condition: STABLE Disposition: Admitted to [facility] - Attestation Statements Provider Attestation: pt seen by midlevel provider independently, based on their assessment, it was not necessary to present the case to me but I was available for consultation. I did not form a physician-patient relationship with the patient. The chart however, has been reviewed. am signing this note strictly in an administrative capacity.
[2019-10-11] MEDS ORDERED: NS 0.9% IVPB SCH (23:45)
[2019-10-11] MEDS ORDERED: DAPTOMYCIN IVPB SCH (23:45)
[2019-10-11 23:51] LABS: ABS Eosinophils 0.3 10^3/ul (0-0.6); ABS Lymphocytes 1.3 10^3/ul (1.0-4.8); ABS Monocytes 0.8 10^3/ul (0-0.8); ABS Neutrophils 6.3 10^3/ul (1.5-7.7); Eosinophil % 3.3 %; Hematocrit 26 % (35-47); Lymphocyte % 15.2 %; Mean Corpuscular HGB Conc 34 g/dL (31-36); Mean Corpuscular Hemoglobin 33 pg (27-31); Mean Corpuscular Volume 97 fL (80-97); Mean Platelet Volume 7.6 fL (7.4-10.4); Platelet Count 210 10^3/uL (150-450); Red Blood Count 2.73 10^6 /uL (3.70-4.87); Red Cell Distribution Width 14 % (10-15); White Blood Count 8.7 10^3/uL (3.5-10.8)
[2019-10-12 00:07] LABS: Albumin 3.6 g/dL (3.2-5.2); Albumin/Globulin Ratio 1.1 (1-3); C Reactive Protein 176.5 mg/L (<8.01); EGFR African American 34.2 (>60); EGFR Non-African American 28.2 (>60); Globulin 3.3 g/dL (2-4); Total Bilirubin 0.2 mg/dL (0.2-1.0); Total Protein 6.9 g/dL (6.4-8.9)
[2019-10-12] MEDS ORDERED: Albuterol 2.5 MG/3 ML NEB.SOL* (0.083%) INH PRN (00:43)
[2019-10-12] MEDS ORDERED: Morphine INJ* 4 MG/ML 1 ML SYRINGE (NEW SYRINGE VERSION) IV PRN (00:43)
[2019-10-12] MEDS ORDERED: Acetaminophen TAB* 325 MG PO PRN (00:43)
[2019-10-12] MEDS ORDERED: Ondansetron INJ* 2 MG/ML VIAL IV PRN (00:43)
[2019-10-12] MEDS ORDERED: DAPTOmycin SDV(*) 500 MG in NS 0.9% 50 ML* 50 ML IVPB ONE (01:00)
[2019-10-12 01:03] LABS: Activated Partial Thrombo Time 32.3 seconds (26.0-38.0); INR 1.1 (0.82-1.09)
[2019-10-12 01:47] LABS: Urine Appearance Clear; Urine Bilirubin Negative (Negative); Urine Blood Negative (Negative); Urine Color Yellow; Urine Glucose Negative (Negative); Urine Ketones Negative (Negative); Urine Nitrite Negative (Negative); Urine Protein 2+(100 mg/dL) (Negative); Urine Specific Gravity 1.014 (1.010-1.030); Urine Urobilinogen Negative (Negative)
[2019-10-12 02:06] LABS: Urine Bacteria 1+ (Absent); Urine Red Blood Cell Trace(0-2/hpf) (Absent); Urine Squamous Epithelial Cell Present (Absent); Urine White Blood Cell Trace(0-5/hpf) (Absent)
[2019-10-12] MEDS: Morphine INJ* 2 MG/ML 1 ML SYRINGE (TWO MG - NEW SYRINGE VERSION) IV PRN ×2 (03:22→10:07)
--- NOTE | 2019-10-12 04:49 | HP ---
CC: Dr. Villeda; Dr. Salcedo* HISTORY AND PHYSICAL: DATE OF ADMISSION: 10/12/19 PRIMARY CARE PROVIDER: Dr. Villeda. ATTENDING PHYSICIAN WHILE IN THE HOSPITAL: Dr. Shirley* (dictated by Chauncey Daniels NP). CONSULTING ID SPECIALIST: Dr. Salcedo. CHIEF COMPLAINT: Right lower extremity redness and pain. HISTORY OF PRESENT ILLNESS: Mrs. Martin is a 78-year-old female patient with multiple medical problems, who comes in today. She has a history of asthma; VALENTIN , not on CPAP; lymphedema; restless leg; hypertension; anemia; CHF with preserved EF; myeloproliferative disorder; peptic ulcer disease; angina; GERD; fibromyalgia; tremor; AFib; hypothyroidism; headache; CAD; history of CKD; and esophageal spasms, who was recently here, the end of July 2019, was found to have cellulitis and abscess affected cyst behind her right knee. It was drained and ultimately, it did grow out VRE. She had several surgeries and drainages, ultimately had a wound VAC placed. The patient was sent out with a course of daptomycin, which she finished. Ultimately, she did well, but unfortunately over the last several days, since Friday, she noted on the right lower extremity into the medial aspect of her right knee and going upwards to her groin. She started having redness and swelling, she felt like it was on a fire. She felt like she got a sunburn. She noted that throughout the weekend, the redness and swelling got worse. She told her visiting nurse, the plan was to monitor this throughout the weekend, but it got worse throughout the weekend and redness spread down to her foot and it radiated over to the lateral aspect of her right lower extremity and up into her right buttock. She states that it has been feeling painful. She has not had any fever or chills. She saw her primary today via telemedicine, but they were unable to get a good evaluation of the lower extremities, so she was referred to the urgent care. While at urgent care, there was concern for another infection and she was sent to the ER. The patient states that it has been painful. She has not really noticed much drainage from her wound VAC. She was to see Infectious Disease tomorrow, but because of the worsening redness, there was concern for underlying cellulitis. She notes that there has been more pain in that leg and there has been more swelling in the lower extremity as well. She came into the ED ultimately, though we did not see any white count, but her CRP was climbing. Because of these findings, we were asked to evaluate for admission. PAST MEDICAL HISTORY: Significant for: 1. Asthma. 2. Lymphedema. 3. VALENTIN. She does wear O2 at night. 4. Restless leg syndrome. 5. Esophageal spasms. 6. Hypertension. 7. Anemia. 8. Congestive heart failure with preserved EF. 9. Myeloproliferative disorder. 10. Peptic ulcer disease. 11. Angina. 12. GERD. 13. Fibromyalgia. 14. Tremors. 15. AFib. 16. Hypothyroidism. 17. Headache. 18. CAD. 19. CKD, baseline creatinine of 1.3. PAST SURGICAL HISTORY: 1. She has had bone marrow biopsies x2. 2. CABG. 3. Left knee arthroscopy. 4. Multiple I and Ds of an infected right cyst. 5. Right knee arthroscopy. 6. Cholecystectomy. 7. Appendectomy. 8. Hernia repair. 9. Bilateral total hip arthroplasty. 10. Cataracts. 11. Back surgeries x5. 12. Breast reduction. 13. Carpal tunnel surgery. 14. Tarsal tunnel surgery. MEDICATIONS: Home medications, she states that this has not changed since her discharge about a month ago. We will need to clarify this with her PCP tomorrow , but the list that I have available tonight: 1. Effexor 37.5 mg p.o. at bedtime. 2. Vitamin B one capsule p.o. daily. 3. Ventolin 1 neb 4 times a day as needed. 4. Colace 200 mg twice a day. 5. Plavix 75 mg daily. 6. Vitamin D 2000 units p.o. daily. 7. Calcium and magnesium 1 tablet daily. 8. Amiodarone 100 mg daily. 9. Ventolin 2 puffs inhaler every 6 hours as needed. 10. Levocetirizine 5 mg daily. 11. Hydrocodone 10/325 mg 2 tablets every 4 hours as needed. 12. Flonase 1 spray in both nares at bedtime. 13. Flovent 1 puff inhaled b.i.d. 14. Zetia 10 mg at bedtime. 15. Multivitamin 400 mcg p.o. daily. 16. Singulair 10 mg daily. 17. Metoprolol XL 25 mg p.o. b.i.d. 18. Melatonin 10 mg at bedtime. 19. Synthroid 175 mcg p.o. daily. 20. Mirapex 2 mg at bedtime. 21. Prilosec 20 mg p.o. b.i.d. 22. Macrobid 100 mg p.o. twice a day. 23. Demadex 20 mg daily. 24. Shark cartilage 1000 mg p.o. b.i.d. 25. Senna 2 tablets p.o. b.i.d. 26. Primidone 150 mg at bedtime. 27. Norvasc 10 mg daily. ALLERGIES: Allergies to medications include: 1. LIPITOR. 2. IMIPRAMINE. 3. IV DYE. 4. CYTOTEC. 5. NAPROXEN. 6. NITROFURANTOIN. 7. THEOPHYLLINE. 8. TIAGABINE. 9. TIZANIDINE. 10. FENTANYL. 11. STATINS. FAMILY HISTORY: Her mother had CHF. Father had a history of CAD. SOCIAL HISTORY: She does not smoke. She rarely drinks alcohol. Surrogate decision maker is her , Herminio. REVIEW OF SYSTEMS: She denied any fevers. She did admit to chills. She denies having any significant weight change. There is no double vision. She denied having any ear discharge. She denied having any rhinorrhea. No sore throat. No thyroid enlargement. She denied any chest pain. No orthopnea, no nocturnal dyspnea. There was no abdominal pain. No nausea, no vomiting. No dysuria, no frequency. There was no seizure. No loss of consciousness. No pruritus and there is no skin ulcerations. Review of 14 systems completed. All others negative. PHYSICAL EXAMINATION GENERAL: At this time, Mrs. Martin is a 78-year-old female patient. She is chronically ill-appearing. She is sitting in the ED stretcher. She does not appear to be in any acute distress. VITAL SIGNS: Blood pressure is 179/65 with pulse of 82, respirations 16, O2 saturation is 97%, temperature is 98.5. HEENT: Head: Atraumatic, normocephalic. Eyes: EOMs intact. Sclerae anicteric, not pale. Throat: Oral mucosa appears to be dry. No oropharyngeal erythema. NECK: Supple. LUNGS: Clear. Diminished in the bases. No wheezes, rales, or rhonchi. HEART: Heart sounds S1, S2. She had a regular rate and rhythm. No murmurs, rubs, or gallops. ABDOMEN: Soft, flat, and nontender. Bowel sounds are present. EXTREMITIES: She did have peripheral edema noted to the right lower extremity. Pulses were palpable to the pedal area bilaterally. She had 5/5 strength in the upper extremities and 5/5 strength in the lower extremities. NEUROLOGIC: She is awake, alert, oriented x3. Speech is clear. Tongue is midline. Autocad Detailer were equal. No gross focal deficit. SKIN: Intact with the exception she does have a wound VAC noted to the posterior aspect of her right knee. There is erythema noted surrounding the right lower extremity that radiates medially down to the right lower extremity and to the right foot and the lateral aspect starting at the knee radiating upwards to the right buttock, she does have erythema and warmth and tenderness in this area. No obvious fluid collection is noted. Otherwise, skin is grossly intact. DIAGNOSTIC STUDIES/LAB DATA: Labs today revealed WBC of 8.7, RBC of 2.79, hemoglobin was 9, that is near her baseline, hematocrit of 26, platelet count of 210. Sodium 135, potassium 4, chloride 99, bicarb 26, BUN 40, creatinine of 1.79, her baseline is actually 1.3, glucose is 164, lactate 1.1, calcium 9. Total bilirubin 0.2, AST 14, ALT 6, alk phos 87. Her CRP was 176. It had been trending down and it has been normal on 09/15/19. She did have albumin of 3.6. Old medical records were reviewed. I did review the microbiology report from the I and D dated 08/25/19, which did grow out VRE, which was susceptible to gentamicin, linezolid, tigecycline, and quinupristin/dalfopristin. Old medical records were reviewed. ASSESSMENT AND PLAN: Mrs. Martin is a 78-year-old female patient with multiple medical problems coming into the ED today with complaints of worsening right lower extremity swelling, pain, and redness. She will be admitted under inpatient status for: 1. Cellulitis. At this point, given her complex history, I am imaging the leg to make sure there is no drainable fluid collection. I will get the pelvis and the right lower extremity. I am going to go head and place her back on daptomycin 500 mg. Her corrected GFR is right around 29 mL/minute, so I am going to put her on 500 mg q.48 hours. We will get ID involved again as she may need long-term therapy and again, we will re-image to follow and we will follow the CRP. Fortunately, she does not appear to be septic at this point. 2. Asthma. We will continue with her nebulizers, p.r.n. albuterol, and her Flovent. 3. Obstructive sleep apnea. I have ordered oxygen at night. 4. Lymphedema. Continue with elevation of her lower extremities and I will continue with Demadex. 5. Restless leg syndrome. Continue her Mirapex. 6. Esophageal spasms. Continue her med as prescribed. She is on omeprazole. 7. Peptic ulcer disease. Continue omeprazole. 8. Myeloproliferative disorder. Her hemoglobin and hematocrit is stable. We will continue to follow. 9. History of congestive heart failure. She does not appear to be in any exacerbation. We will continue her Demadex. 10. Anemia. H and H stable. Follow. 11. Hypertension. Blood pressure was high down here, but she did not receive her meds. We will continue these and we will see how her blood pressure responds. She is on torsemide. She is on amlodipine. She is on metoprolol. We will continue these medications. 12. History of atrial fibrillation. She is on amiodarone. I do not see that she is on a blood thinner at this point. We will need to clarify this. Certainly, her CHADS-VASc score is high. This may need to be addressed, but I would not start it just yet as we may need to consider doing an I and D depending on her imaging findings. 13. Tremor. Continue her primidone. 14. Fibromyalgia. Continue with her pain medications. 15. Gastroesophageal reflux disease. PPI has been ordered. 16. Angina. Continue her current medications. 17. Chronic kidney disease. Creatinine is slightly worse. Baseline does fluctuate. I am going to continue her diuretics given the swelling in the legs. We will monitor this. If we need to, we will hold on the Demadex. 18. Coronary artery disease. She is on Plavix, continue. She is on Zetia, continue and continue the beta-tray. She is not on statin given the allergies. 19. Hypothyroidism. Continue her Synthroid. 20. History of headaches. I will order Tylenol. 21. DVT prophylaxis: She is high risk, I have ordered heparin subcutaneous. 22. Code status: Full code. 23. Fluids, electrolytes, and nutrition: She can have a heart healthy diet. TIME SPENT: Time spent on the admission was 60 minutes, greater than half the time was spent [id number] with the patient obtaining my history and physical, the other half time was spent going over the plan of care with the patient and implementing my plan of care. I did discuss the plan of care with my attending Dr. Shirley, he is in agreement. CHAUNCEY DANIELS NP [id number]/CPS #: [id number] PAMELA
[2019-10-12 05:43] LABS: ABS Eosinophils 0.3 10^3/ul (0-0.6); ABS Lymphocytes 1.3 10^3/ul (1.0-4.8); ABS Monocytes 0.8 10^3/ul (0-0.8); ABS Neutrophils 5.1 10^3/ul (1.5-7.7); Eosinophil % 3.6 %; Hematocrit 24 % (35-47); Hemoglobin 8.2 g/dL (12.0-16.0); Lymphocyte % 17.6 %; Mean Corpuscular HGB Conc 35 g/dL (31-36); Mean Corpuscular Hemoglobin 34 pg (27-31); Mean Corpuscular Volume 97 fL (80-97); Mean Platelet Volume 7.9 fL (7.4-10.4); Platelet Count 189 10^3/uL (150-450); Red Blood Count 2.44 10^6 /uL (3.70-4.87); Red Cell Distribution Width 14 % (10-15); White Blood Count 7.5 10^3/uL (3.5-10.8)
[2019-10-12 05:51] LABS: INR 1.13 (0.82-1.09)
[2019-10-12 05:58] LABS: BUN/Creatinine Ratio 24.7 (8-20); Calcium 8.6 mg/dL (8.6-10.3); EGFR African American 41.8 (>60); EGFR Non-African American 34.6 (>60); Potassium 3.8 mmol/L (3.5-5.0)
[2019-10-12] MEDS: Heparin VIAL(*) 5000 UNITS/ML VIAL (FIVE THOUSAND) SUBCUT SCH ×3 (06:15→20:42)
[2019-10-12] MEDS: Amiodarone TAB* 200 MG PO SCH (08:07)
[2019-10-12] MEDS: Torsemide TAB* 20 MG PO SCH (08:08)
[2019-10-12] MEDS: Levothyroxine TAB* 175 MCG TAB PO SCH (08:09)
[2019-10-12] MEDS: Pantoprazole TAB * 40 MG TAB PO SCH ×2 (08:10→20:40)
[2019-10-12] MEDS: Clopidogrel TAB* 75 MG PO SCH (08:10)
[2019-10-12] MEDS: Senna TAB 8.6 mg* TAB PO SCH ×2 (08:10→20:41)
[2019-10-12] MEDS: Docusate CAP* 100 MG PO SCH ×2 (08:10→20:40)
[2019-10-12] MEDS: Metoprolol Succinate XL TAB* 25 MG PO SCH ×2 (08:11→20:40)
[2019-10-12] MEDS: Montelukast Sodium TAB* 10 MG PO SCH (08:11)
[2019-10-12] MEDS: amLODIPine TAB* 5 MG PO SCH (08:12)
[2019-10-12] MEDS: Ezetimibe TAB* 10 MG PO SCH (08:12)
--- NOTE | 2019-10-12 12:41 | PN ---
Subjective Date of Service: 10/12/19 Interval History: Tmax 99.6 No acute events overnight. In pain in the abscence of her 2 norcos (says she takes q4 hours), MDD is written as 8 total. Wants caffeine back and flonase 1 spray BID instead of just qhs superficial Pain in right leg, rash slightly better, no pain in right hip. Objective Active Medications: Acetaminophen (Tylenol Tab*) 650 mg PO Q4H PRN PRN Reason: PAIN - MILD Last Admin: 10/12/19 08:08 Dose: 650 mg Albuterol (Ventolin 2.5 Mg/3 Ml Neb.Raiza*) 2.5 mg INH Q4H PRN PRN Reason: SOB/WHEEZING Amiodarone HCl (Cordarone Tab*) 100 mg PO DAILY [facility] Last Admin: 10/12/19 08:07 Dose: 100 mg Amlodipine Besylate (Norvasc Tab*) 10 mg PO DAILY [facility] Last Admin: 10/12/19 08:12 Dose: 10 mg Cetirizine HCl (Zyrtec*) 10 mg PO BEDTIME [facility] Clopidogrel Bisulfate (Plavix Tab*) 75 mg PO DAILY [facility] Last Admin: 10/12/19 08:10 Dose: 75 mg Docusate Sodium (Colace Cap*) 200 mg PO BID [facility] Last Admin: 10/12/19 08:10 Dose: 200 mg Ezetimibe (Zetia Tab*) 10 mg PO DAILY [facility] Last Admin: 10/12/19 08:12 Dose: 10 mg Fluticasone Propionate (Flonase Nasal Gays 50mcg*) 1 spray BOTH NARES BEDTIME [facility] Heparin Sodium (Porcine) (Heparin Vial(*)) 5,000 units SUBCUT Q8HR [facility] Last Admin: 10/12/19 06:15 Dose: 5,000 units Daptomycin 500 mg/ Sodium (Chloride) 60 mls @ 100 mls/hr IVPB Q48H [facility] Levothyroxine Sodium (Synthroid Tab*) 175 mcg PO DAILY@0600 [facility] Last Admin: 10/12/19 08:09 Dose: 175 mcg Metoprolol Succinate (Toprol Xl Tab*) 25 mg PO BID [facility] Last Admin: 10/12/19 08:11 Dose: 25 mg Mometasone Furoate (Asmanex 220 Mcg Mdi *) 1 puff INH QPM [facility] Montelukast Sodium (Singulair Tab*) 10 mg PO DAILY [facility] Last Admin: 10/12/19 08:11 Dose: 10 mg Morphine Sulfate (Morphine Inj (Syringe))*) 2 mg IV Q4H PRN PRN Reason: PAIN - SEVERE Last Admin: 10/12/19 10:07 Dose: 2 mg Non-Formulary Medication (Melatonin [Melatonin]) 10 mg PO BEDTIME [facility] Ondansetron HCl (Zofran Inj*) 4 mg IV Q6H PRN PRN Reason: NAUSEA Pantoprazole Sodium (Protonix Tab*) 40 mg PO BID [facility] Last Admin: 10/12/19 08:10 Dose: 40 mg Pramipexole Dihydrochloride (Mirapex Tab*) 2 mg PO BEDTIME [facility] Primidone (Mysoline 250 Mg Tab (*)) 150 mg PO BEDTIME [facility] Senna (Senokot 8.6 Mg Tab*) 2 tab PO BID [facility] Last Admin: 10/12/19 08:10 Dose: 2 tab Torsemide (Demadex*) 20 mg PO DAILY [facility] Last Admin: 10/12/19 08:08 Dose: 20 mg Venlafaxine HCl (Effexor Xr Cap*) 37.5 mg PO BEDTIME [facility] Vital Signs - 8 hr 10/12/19 10/12/19 10/12/19 06:14 07:25 08:00 Temperature 99.6 F Pulse Rate 74 Respiratory 18 16 16 Rate Blood Pressure 146/48 (mmHg) O2 Sat by Pulse 95 Oximetry 10/12/19 10/12/19 10:07 11:22 Temperature 98.2 F Pulse Rate 75 Respiratory 18 18 Rate Blood Pressure 167/62 (mmHg) O2 Sat by Pulse 96 Oximetry Oxygen Devices in Use Now: None Appearance: NAD, chronically deconditioned appearing, obese Neck: NL Appearance and Movements; NL JVP Respiratory: Symmetrical Chest Expansion and Respiratory Effort Cardiovascular: NL Sounds; No Murmurs; No JVD Abdominal: NL Sounds; No Tenderness; No Distention Extremities: - - 1-2+ edema in b/l ankles. erythema in lateral right thigh extending to hip and superior to wound vac. Neurological: Alert and Oriented x 3 Result Diagrams: 10/12/19 05:22 10/12/19 05:22 Additional Lab and Data: Laboratory Results - last 24 hr 10/11/19 10/11/19 10/11/19 01:38 23:39 23:39 WBC 8.7 RBC 2.73 L Hgb 9.0 L Hct 26 L MCV 97 MCH 33 H MCHC 34 RDW 14 Plt Count 210 MPV 7.6 Neut % (Auto) 72.5 Lymph % (Auto) 15.2 [place] % (Auto) 8.6 Eos % (Auto) 3.3 Baso % (Auto) 0.4 Absolute Neuts (auto) 6.3 Absolute Lymphs (auto) 1.3 Absolute Monos (auto) 0.8 Absolute Eos (auto) 0.3 Absolute Basos (auto) 0.0 Absolute Nucleated RBC 0.0 Nucleated RBC % 0.0 INR (Anticoag Therapy) APTT Sodium 135 Potassium 4.0 Chloride 99 L Carbon Dioxide 26 Anion Gap 10 BUN 40 H Creatinine 1.74 H Est GFR ( Amer) 34.2 Est GFR (Non-Af Amer) 28.2 BUN/Creatinine Ratio 23.0 H Glucose 164 H Lactic Acid Calcium 9.0 Total Bilirubin 0.20 AST 14 ALT 6 L Alkaline Phosphatase 87 C-Reactive Protein 176.50 H Total Protein 6.9 Albumin 3.6 Globulin 3.3 Albumin/Globulin Ratio 1.1 Urine Color Yellow Urine Appearance Clear Urine pH 5.0 Ur Specific [place] 1.014 Urine Protein 2+(100 mg/dl) A Urine Ketones Negative Urine Blood Negative Urine Nitrate Negative Urine Bilirubin Negative Urine Urobilinogen Negative Ur Leukocyte Esterase Negative Urine WBC (Auto) Trace(0-5/hpf) Urine RBC (Auto) Trace(0-2/hpf) Ur Squamous Epith Cells Present A Urine Bacteria 1+ A Hyaline Casts Present A Urine Glucose Negative Urine Ascorbic Acid * A 10/11/19 10/12/19 10/12/19 23:39 00:10 05:22 WBC 7.5 RBC 2.44 L Hgb 8.2 L Hct 24 L MCV 97 MCH 34 H MCHC 35 RDW 14 Plt Count 189 MPV 7.9 Neut % (Auto) 68.4 Lymph % (Auto) 17.6 Butler % (Auto) 10.0 Eos % (Auto) 3.6 Baso % (Auto) 0.4 Absolute Neuts (auto) 5.1 Absolute Lymphs (auto) 1.3 Absolute Monos (auto) 0.8 Absolute Eos (auto) 0.3 Absolute Basos (auto) 0.0 Absolute Nucleated RBC 0.0 Nucleated RBC % 0.0 INR (Anticoag Therapy) 1.10 H APTT 32.3 Sodium Potassium Chloride Carbon Dioxide Anion Gap BUN Creatinine Est GFR ( Amer) Est GFR (Non-Af Amer) BUN/Creatinine Ratio Glucose Lactic Acid 1.1 Calcium Total Bilirubin AST ALT Alkaline Phosphatase C-Reactive Protein Total Protein Albumin Globulin Albumin/Globulin Ratio Urine Color Urine Appearance Urine pH Ur Specific [place] Urine Protein Urine Ketones Urine Blood Urine Nitrate Urine Bilirubin Urine Urobilinogen Ur Leukocyte Esterase Urine WBC (Auto) Urine RBC (Auto) Ur Squamous Epith Cells Urine Bacteria Hyaline Casts Urine Glucose Urine Ascorbic Acid 10/12/19 10/12/19 05:22 05:22 WBC RBC Hgb Hct MCV MCH MCHC RDW Plt Count MPV Neut % (Auto) Lymph % (Auto) Butler % (Auto) Eos % (Auto) Baso % (Auto) Absolute Neuts (auto) Absolute Lymphs (auto) Absolute Monos (auto) Absolute Eos (auto) Absolute Basos (auto) Absolute Nucleated RBC Nucleated RBC % INR (Anticoag Therapy) 1.13 H APTT Sodium 137 Potassium 3.8 Chloride 104 Carbon Dioxide 24 Anion Gap 9 BUN 36 H Creatinine 1.46 H Est GFR ( Amer) 41.8 Est GFR (Non-Af Amer) 34.6 BUN/Creatinine Ratio 24.7 H Glucose 105 H Lactic Acid Calcium 8.6 Total Bilirubin AST ALT Alkaline Phosphatase C-Reactive Protein Total Protein Albumin Globulin Albumin/Globulin Ratio Urine Color Urine Appearance Urine pH Ur Specific [place] Urine Protein Urine Ketones Urine Blood Urine Nitrate Urine Bilirubin Urine Urobilinogen Ur Leukocyte Esterase Urine WBC (Auto) Urine RBC (Auto) Ur Squamous Epith Cells Urine Bacteria Hyaline Casts Urine Glucose Urine Ascorbic Acid Assess/Plan/Problems-Billing Assessment: 78 yo female PMH CAD s/p CABG, HTN, pAfib (not on a/c due to GIB), HFpEF, VALENTIN( no CPAP), CKD, gout, neuropathy, right leg VRE infection s/p dapto presenting with right leg pain, erythema consistent with cellulitis. - Patient Problems (1) Cellulitis of right leg Current Visit: Yes Status: Acute Code(s): L03.115 - CELLULITIS OF RIGHT LOWER LIMB SNOMED Code(s): 948366263 Comment: Appreciate ID recs continue dapto, renally dosed appreciate ortho recs, no involvment of the right hip suspected. can move w/o pain wound vacc changes 3x a week. (2) Anemia Current Visit: No Status: Acute Priority: High Code(s): D64.9 - ANEMIA, UNSPECIFIED SNOMED Code(s): 287127059 Comment: Hgb 8.2 normocytic. Ferritin 384 in 04/08. Likely CKD but consider repeat iron studies -no symptoms or signs of bleeding (3) Chronic diastolic (congestive) heart failure Current Visit: No Status: Acute Code(s): I50.32 - CHRONIC DIASTOLIC ( CONGESTIVE) HEART FAILURE SNOMED Code(s): 389470764 Comment: -continue torsemide -elevate legs (4) Chronic pain Current Visit: No Status: Acute Code(s): G89.29 - OTHER CHRONIC PAIN SNOMED Code(s): 35311145 Comment: -Continue home norco: 1-2tabs q4, MDD 8 (5) DVT prophylaxis Current Visit: No Status: Acute Code(s): VQO1313 - SNOMED Code(s): 514232489 Comment: heparin 5000 TID given CKD (6) Full code status Current Visit: No Status: Acute Code(s): Z78.9 - OTHER SPECIFIED HEALTH STATUS SNOMED Code(s): 164843240 (7) Paroxysmal atrial fibrillation Current Visit: No Status: Acute Code(s): I48.0 - PAROXYSMAL ATRIAL FIBRILLATION SNOMED Code(s): 681606461 Comment: - S/p MAZE procedure. - Continue Amiodarone 100 dailyand Metoprolol 25 BID. - Not on anticoagulation due to h/o GI bleed. (8) Atrial fibrillation Current Visit: No Status: Chronic Code(s): I48.91 - UNSPECIFIED ATRIAL FIBRILLATION SNOMED Code(s): 29261634 Comment: -rate controlled -Continue amiodarone and metoprolol -She is not on anticoagulation due to h/o PUD. (9) CAD (coronary artery disease) Current Visit: No Status: Chronic Code(s): I25.10 - ATHSCL HEART DISEASE OF [place] CORONARY ARTERY W/O ANG PCTRS SNOMED Code(s): 93694295 Comment: -Continue metoprolol, amlodipine, Zetia, plavix (10) CKD (chronic kidney disease) Current Visit: No Status: Chronic Priority: High Code(s): N18.9 - CHRONIC KIDNEY DISEASE, UNSPECIFIED SNOMED Code(s): 162396266 Comment: -improved back to baseline. (11) HLD (hyperlipidemia) Current Visit: No Status: Chronic Code(s): E78.5 - HYPERLIPIDEMIA, UNSPECIFIED SNOMED Code(s): 16088730 Comment: -Continue zetia (12) Hypertension Current Visit: No Status: Chronic Code(s): I10 - ESSENTIAL (PRIMARY) HYPERTENSION SNOMED Code(s): 12424237 Comment: -Continue metoprolol succ 25 BID and amlodipine 10 daily and torsemide 20mg daily -150-170s. not controlled. Add imdur ER 30 daily . (13) Hypothyroidism Current Visit: No Status: Chronic Code(s): E03.9 - HYPOTHYROIDISM, UNSPECIFIED SNOMED Code(s): 94995957 Comment: Continue levothyroxine at current dose. Last TSH in 01/2019 was in good range. (14) Obstructive sleep apnea Current Visit: No Status: Chronic Priority: High Code(s): G47.33 - OBSTRUCTIVE SLEEP APNEA (ADULT) (PEDIATRIC) SNOMED Code(s): 37824577 Comment: - Patient wears supplemental O2 2 L/min overnight, but not CPAP (15) RLS (restless legs syndrome) Current Visit: No Status: Chronic Comment: Continue mirapex. Status and Disposition: medicine inpatient. on IV abx.
--- NOTE | 2019-10-12 13:03 | CONSULT ---
Consult Consult: HPI Summary: Patient complains of pain, erythema, edema and extra warmth from right foot up to right buttock x 3 days. Recent history of admission to [facility] [place] for cellulitis and abscess of right knee 09/07/19 with orthopedic debridement of right knee and wound VAC placement. Patient was positive for VRE. Received daptomycin IV 2 at [facility] after discharge. Last dose 09/15/19. Wound VAC in place. Denies trauma, fever, cough, sore throat, CP, SOB, N/V/D, abdominal pain, change in urine, change in BM. Currently being treated with Macrobid for UTI. She currently has complaints of pain that extends up to the lateral hip. She does not have any pain with moving the hip and states that she is able to get up and walk without any pain or issue. Allergies/Adverse Reactions: Allergies Allergy/AdvReac Type Severity Reaction Status Date / Time atorvastatin [From Lipitor] Allergy See Comment Verified 10/11/19 23:53 imipramine Allergy Unknown Verified 10/11/19 23:53 Reaction Details Iodinated Contrast Media Allergy Nausea Verified 10/11/19 23:53 [Iodinated Contrast- Oral and IV Dye] misoprostol [From Cytotec] Allergy Itching Verified 10/11/19 23:53 naproxen Allergy Itching Verified 10/11/19 23:53 nitrofurantoin Allergy Unknown Verified 10/11/19 23:53 Reaction Details theophylline [From Uniphyl] Allergy Unknown Verified 10/11/19 23:53 Reaction Details tiagabine [From Gabitril] Allergy Rash Verified 10/11/19 23:53 tizanidine Allergy Unknown Verified 10/11/19 23:53 Reaction Details fentanyl AdvReac Dizziness Verified 10/11/19 23:53 [id number] Reductase AdvReac Vomiting Verified 10/11/19 23:53 Inhibitor Home Medications Albuterol 2.5MG/3ML (0.083%)* [Ventolin 2.5 MG/3 ML NEB.MADONNA*] 1 aer NEB QID PRN 01/20/18 [History Confirmed 10/12/19] Albuterol HFA INHALER* [Ventolin HFA Inhaler*] 2 puff INH Q6HR PRN 01/20/18 [ History Confirmed 10/12/19] Fluticasone NASAL SPRAY 50MCG* [Flonase NASAL SPRAY 50MCG*] 1 spray BOTH NARES BID 01/20/18 [History Confirmed 10/12/19] Montelukast Sodium TAB* [Singulair 10 MG TAB*] 10 mg PO DAILY 01/20/18 [History Confirmed 10/12/19] Vitamin B Complex CAP* [B Complex CAP*] 1 cap PO QAM 01/20/18 [History Confirmed 10/12/19] Clopidogrel TAB* [Plavix TAB*] 75 mg PO DAILY 04/01/18 [History Confirmed ] Amiodarone TAB* [Cordarone Tab*] 100 mg PO DAILY 05/20/18 [History Confirmed ] Calcium Carb,Gluc/Mag Ox,Gluc [Calcium Magnesium Caplet] 1 tab PO DAILY [History Confirmed 10/12/19] Cholecalciferol TAB* [Vitamin D TAB*] 2,000 units PO DAILY 05/20/18 [History Confirmed 10/12/19] Ezetimibe TAB* [Zetia TAB*] 10 mg PO DAILY 05/20/18 [History Confirmed 10/12/19] Fluticasone HFA 110 mcg(NF) [Flovent HFA 110 mcg(NF)] 1 puff INH BID 05/20/18 [ History Confirmed 10/12/19] LevoCETirizine TAB (NF) [Xyzal TAB (NF)] 5 mg PO DAILY 05/20/18 [History Confirmed 10/12/19] Levothyroxine TAB* [Synthroid TAB*] 175 mcg PO DAILY 05/20/18 [History Confirmed 10/12/19] Melatonin 10 mg PO BEDTIME 05/20/18 [History Confirmed 10/12/19] Metoprolol Succinate XL TAB* [Toprol XL TAB*] 25 mg PO BID 05/20/18 [History Confirmed 10/12/19] Multivitamin with Folic Acid [One Daily Essential Tablet] 400 mcg PO DAILY 05/20 [History Confirmed 10/12/19] Omeprazole CAP (NF) [Prilosec CAP* 20 MG] 20 mg PO BID 05/20/18 [History Confirmed 10/12/19] Pramipexole TAB* [Mirapex TAB*] 2 mg PO BEDTIME 05/20/18 [History Confirmed ] Primidone 50 mg TAB (*) [Mysoline 250 mg TAB (*)] 150 mg PO BEDTIME 05/20/18 [ History Confirmed 10/12/19] Sennosides/Docusate Sodium [Senna-S Tablet] 2 tab PO BID 05/20/18 [History Confirmed 10/12/19] Shark Cartilage [Shark Fin Cartilage] 1,000 mg PO BID 05/20/18 [History Confirmed 10/12/19] Torsemide TAB* [Demadex 20 MG*] 20 mg PO DAILY 05/20/18 [History Confirmed 10/11] amLODIPine TAB* [Norvasc 5 mg TAB*] 10 mg PO DAILY 05/20/18 [History Confirmed 10/12/19] Docusate CAP* [Colace Cap*] 200 mg PO BID cap 09/08/19 [Rx Confirmed 10/12/19] Hydrocodone/Acetaminophen [Hydrocodone/Acetaminophen 10-325 mg] 2 tab PO Q4H PRN 10/11/19 [History Confirmed 10/12/19] Nitrofurantoin Monohyd/M-Cryst [Macrobid 100 mg Capsule] 100 mg PO BID 10/11/19 [History Confirmed 10/12/19] Venlafaxine EXT RELEASE CAP* [Effexor Xr CAP*] 37.5 mg PO BEDTIME 10/12/19 [ History Confirmed 10/12/19] PMH: Thyroid Disease Anemia - ON DAILY IRON, 01/2018 WHILE HOSPITALIZED RECEIVE 7 UNITS BLOOD Angina Congestive Heart Failure Coronary Artery Disease Hypercholesterolemia Hypertension Asthma Chronic Obstructive Pulmonary Disease (COPD) - O2 2L at night not CPAP Sleep Apnea - SLIGHT, USES OXYGEN AT NIGHT AND PRN DURING DAY Gastroesophageal Reflux Disease - ON DAILY MEDS Hx Gastrointestinal Bleed Hiatal Hernia Renal Disease - stage 3 CKD Arthritis - STATES ALL OVER STATES NECK TO TOES Back Problems Fibromyalgia Cataracts - BILATERAL Headaches - with chest pain gets severe headaches Transient Ischemic Attacks (TIA) - Surgical History Surgery Procedure, Year, and Place: 2007 FUSION LOW BACK. TSP -LSP [place] RODS/SCREWS BILATERAL HIP REPLACEMENT 06/2003 LEFT HEEL TARSAL TUNNEL 12/2004 WART -REMOVED FROM [place] 2002 CARPAL TUNNEL - [place]. 2002 Lt KNEE -2 & 2005 09/2002 & 01/2003 Rt KNEE - 3 TIMES - ARTHROSCOPIC 2007 RIGHT BREAST LUMPECTOMY 1999 CHOLECYSTECTOMY TONSILECTOMY- as child UMBILICAL HERNIA REPAIR 2009 APPENDECTOMY 06/2005 [place] BREAST REDUCTION Lt THUMB - GANGLION CYST 2007 LEFT TOTAL HIP Rt ARM - "LUMP" REMOVED 2005 RT HIP TOTAL REPLACEMENT 01/2018 CARDIAC STENT 07/07 heart cath [place] Known Family History: Positive: Cardiac Disease - Father used to use NTG. 3 brothers have had CABG. 4th had CVA and DE., Diabetes Social Hx: Alcohol Use: None Alcohol Amount: reports only a couple of drinks 4 times per year Hx Substance Use: No Substance Use Type: Reports: None Hx Tobacco Use: No Smoking Status (MU): Never Smoked Tobacco Have You Smoked in the Last Year: No Review of Systems Constitutional: Negative Eyes: Negative ENT: Negative Cardiovascular: Negative Respiratory: Negative Gastrointestinal: Negative Genitourinary: Negative Musculoskeletal: Other Skin: Other Neurological/Mental Status: Negative Psychological: Normal All Other Systems Reviewed And Are Negative: Yes Physical Exam : General: Pt isl alert and oriented x3, NAD. Erythema along upper lateral thigh to right buttock. Concentrated erythema around site of wound vac on medial right knee. No evidence of abscess noted. Patient states some loss of sensation along the anterior benton status post knee debridement. Otherwise PMS intact distally. She is able to flex her hip to 90 without pain and has no pain with internal and external rotation of the hip. She has TTP along every part of her leg with gentle palpation. ASSESSMENT: Superficial cellulitis about the lateral thigh Wound vac medial knee PLAN: Wound vac change tomorrow ID to administer abx Given the pts ability to move her hip without pain I do not suspect any involvement of the joint. I eel this is most likely superficial cellulitis. Will continue to follow daily.
[2019-10-12] MEDS ORDERED: Hydrocodone/Acetamin 10/325 MG 1 TAB PO PRN (14:37)
[2019-10-12] MEDS ORDERED: Fluticasone NASAL SPRAY 50MCG* 16 gm SPRAY BTL BOTH NARES PRN (14:39)
--- NOTE | 2019-10-12 15:03 | CONS ---
CONSULTATION REPORT: DATE OF CONSULT: 10/12/19 PRIMARY CARE PROVIDER: Dr. Manas Villeda. PROVIDER REQUESTING CONSULTATION: Chauncey Daniels NP CONSULTING SERVICE: Infectious Diseases. PROVIDER: Shabana Benson NP ATTENDING PROVIDER: Dr. Chaitanya Salcedo* (dictated by Shabana Benson NP). IMPRESSION: 1. Right lower extremity soft tissue infection. The patient initially presented with what appeared to be a right lower extremity cellulitis with an infected cyst versus abscess around the end of July. She underwent an incision and drainage. She had a CT scan showing a nonspecific fluid collection on the medial subcutaneous plane corresponding with what was initially felt to be a hematoma. Cultures from that time with normal ronda. The patient did well and was discharged from the hospital on an oral course of antibiotics. While discharge, the leg flared up. She re-presented this time undergoing a larger incision and debridement of what appeared to be an abscess with wound cultures with VRE Enterococcus faecium. She has had a wound VAC and completed a course of daptomycin with the last dose the end of August. The patient states that on Friday approximately 4 days ago, she developed redness above the wound VAC site and then on Friday this spread up her thigh and towards her hip. She denies any fevers, chills. She has pain in the leg. She is currently on daptomycin. There is no tenderness with palpation of the right hip. She has full range of motion, low suspicion for septic knee or hip at this time. She had a CT scan of the extremity showing a moderate right joint effusion, subcutaneous edema. Additionally, she had a pelvis CT showing no acute pathology. Her CRP is significantly elevated compared to a last check approximately 1 month ago when it was 7.71. No DVT on venous Doppler. Her CRP is significantly elevated. She has no leukocytosis and afebrile. 2. Chronic kidney disease stage 3. 3. Bilateral lower extremity lymphedema. RECOMMENDATIONS/PLAN: Continue Daptomycin. Recommend an orthopedic consult, I have discussed this with PHYLLIS Nicholas and Dr. Rodriguez. She may require a prolonged course of antibiotics in the setting of recurrent infection. Final recommendations will be based on the patient's clinical course. HISTORY OF PRESENT ILLNESS: Ms. Martin is a 78-year-old female with past medical history significant for asthma, lymphedema, obstructive sleep apnea, restless legs syndrome, hypertension, chronic anemia, myeloproliferative disorder, paroxysmal atrial fibrillation, heart failure with preserved EF, essential tremor, fibromyalgia, GERD, hypotension, headaches, coronary artery disease, chronic kidney disease, esophageal spasms, gastric ulcers and angina, who has been doing well since her last hospitalization when she noted some erythema above her wound VAC, dressing on 10/08/19. The patient initially presented with what appeared to be a right lower extremity cellulitis with an infected cyst versus abscess around the end of July. She underwent an incision and drainage. She had a CT scan showing a nonspecific fluid collection on the medial subcutaneous plane corresponding with what was initially felt to be a hematoma. Cultures from that time with normal ronda. The patient did well and was discharged from the hospital on an oral course of antibiotics. While discharge, the leg flared up and she re-presented this time undergoing a larger incision and debridement of what appeared to be an abscess with wound cultures with VRE Enterococcus faecium. She has had a wound VAC and completed a course of daptomycin with the last dose the end of August. The patient states that on Friday approximately 4 days ago, she developed redness above the wound VAC site and then on Friday this spread up her thigh and towards her hip. She denied any fevers or chills, shortness of breath, nausea, vomiting, diarrhea, constipation, abdominal pain, urinary symptoms, recent travel. She reports chronic postnasal drip with an occasional cough, but has not changed in addition to right lower extremity pain. Due to this, she initially presented to urgent care, was referred to the emergency room for further evaluation. While in the emergency room, she had a pelvis CT showing no acute findings. Additionally, she had a right lower extremity CT showing loss of 3 compartments of the right knee with marginal osteophytic spurring consistent with degenerative osteoarthritis and chondrocalcinosis of the medial and lateral compartments consistent with CPPD arthropathy, moderate right knee joint effusion, diffuse subcutaneous edema or cellulitis of the right thigh, knee, ankle and foot. No visible abscess or soft tissue emphysema of the right lower extremity. She had a venous Doppler ultrasound of the right lower extremity showing no DVT. She had labs showing no leukocytosis, elevated CRP of 176. She was afebrile. She was referred to the hospitalist service for admission. While in the hospital, she continued to have right lower extremity pain, edema, and erythema, but is improving per the patient. Continues to be afebrile. She has been placed on daptomycin. She denies any fevers or chills, shortness of breath, nausea, vomiting, diarrhea, constipation, abdominal pain, urinary symptoms, recent travel. PAST MEDICAL HISTORY: 1. Asthma. 2. Bilateral lower extremity lymphedema. 3. Obstructive sleep apnea. 4. Restless legs syndrome. 5. Hypertension. 6. Esophageal spasms. 7. Anemia. 8. Congestive heart failure with preserved EF. 9. Peptic ulcer disease. 10. Myeloproliferative disorder. 11. Angina. 12. GERD. 13. Fibromyalgia. 14. Tremors. 15. Paroxysmal atrial fibrillation. 16. Hypothyroidism. 17. Headache. 18. Coronary artery disease. 19. Chronic kidney disease. PAST SURGICAL HISTORY: 1. Status post coronary artery bypass graft. 2. Status post left knee surgery. 3. Status post multiple I and Ds of the right thigh. 4. Status post right knee surgery. 5. Status post cholecystectomy. 6. Status post appendectomy. 7. Status post hernia repair. 8. Status post bilateral hip arthroplasty. 9. Status post cataract extractions. 10. Status post back surgery x5. 11. Status post breast reduction. 12. Status post carpal tunnel repair. 13. Status post tarsal tunnel repair. MEDICATIONS: Home medications: 1. Fluconazole nasal spray 50 mcg 1 spray to both nares twice daily. 2. Amlodipine 10 mg by mouth daily. 3. Metoprolol succinate 25 mg by mouth daily. 4. [place] 10/325 two tablets by mouth every 4 hours as needed for pain. 5. Amiodarone 100 mg by mouth daily. 6. Plavix 75 mg by mouth daily. 7. Effexor XR 37.5 mg by mouth at bedtime. 8. B-complex 1 tablet by mouth daily. 9. Albuterol nebulizer 0.08, 3% one nebulizer 4 times daily as needed for shortness of breath or wheeze. 10. Colace 200 mg by mouth twice daily. 11. Vitamin D 2000 units by mouth daily. 12. Calcium and magnesium 1 tablet by mouth daily. 13. Albuterol HFA inhaler 2 puffs inhalation every 6 hours as needed for shortness of breath or wheeze. 14. Xyzal 5 mg by mouth daily. 15. Flovent HFA inhaler 110 mcg 1 puffs inhalation twice daily. 16. Zetia 10 mg by mouth daily. 17. Multivitamin with folic acid 400 mcg by mouth daily. 18. Singulair 10 mg by mouth daily. 19. Melatonin 10 mg by mouth at bedtime. 20. Levothyroxine 175 mcg by mouth daily. 21. Mirapex 2 mg by mouth daily. 22. Omeprazole 20 mg by mouth twice daily. 23. Nitrofurantoin 100 mg by mouth twice daily. 24. Torsemide 20 mg by mouth daily. 25. Shark fin cartilage 1000 mg by mouth twice daily. 26. Senna-S 2 tablets by mouth twice daily. 27. Primidone 150 mg by mouth daily at bedtime. Hospital medications: 1. Acetaminophen 650 mg by mouth every 4 hours as needed for pain. 2. Albuterol nebulizer 2.5 mg inhalation every 4 hours as needed for shortness of breath or wheeze. 3. Amiodarone 100 mg by mouth daily. 4. Amlodipine 10 mg by mouth daily. 5. Zyrtec 10 mg by mouth daily. 6. Plavix 75 mg by mouth daily. 7. Daptomycin 500 mg IV every 48 hours. 8. Colace 200 mg by mouth twice daily. 9. Zetia 10 mg by mouth daily. 10. Flonase nasal spray 50 mcg 1 spray to both nares at bedtime. 11. Heparin sodium 5000 units subcutaneous every 8 hours. 12. Levothyroxine 175 mcg by mouth daily. 13. Metoprolol succinate 25 mg by mouth twice daily. 14. Asmanex 220 mcg MDI 1 puff inhalation every evening. 15. Singulair 10 mg by mouth daily. 16. Morphine sulfate 2 mg IV every 4 hours as needed for pain. 17. Zofran 4 mg IV every 6 hours as needed for nausea. 18. Protonix 40 mg by mouth twice daily. 19. Mirapex 2 mg by mouth at bedtime. 20. Primidone 150 mg by mouth daily at bedtime. 21. Senna 8.6 mg 2 tablets by mouth at bedtime. 22. Torsemide 20 mg by mouth daily. 23. Effexor 37.5 mg by mouth at bedtime. ALLERGIES: 1. ATORVASTATIN. 2. IMIPRAMINE. 3. IV CONTRAST. 4. CYTOTEC. 5. NAPROXEN. 6. NITROFURANTOIN. 7. THEOPHYLLINE. 8. GABITRIL. 9. TIZANIDINE. 10. FENTANYL. 11. STATINS. FAMILY HISTORY: Mother and father with a history of heart disease. Oldest brother passed from heart disease. Second brother with a history of CVA, [place], and third brother and 2 other brothers passed from MIs. Brother with a history of diabetes. Son with a history of throat, tongue, bone and liver cancer. SOCIAL HISTORY: Rarely drinks alcohol. Denies tobacco or recreational drug use. REVIEW OF SYSTEMS: I performed a 10-point review of systems. All the pertinent positives and negatives are mentioned in the history of present illness. The remaining review of systems are negative. PHYSICAL EXAM: Vital Signs: Temperature 99.6, heart rate 74, respiratory rate 16, O2 sat 95% on room air, blood pressure 146/98. General Appearance: Alert, appears to be in no acute distress. Head: Normocephalic, atraumatic. ENT: Extraocular movements are intact. No subconjunctival hemorrhage. Moist mucous membranes. Neck: Supple. No lymphadenopathy. Neurological: Alert and oriented x4. Cranial nerves II through are grossly intact. Moves all extremities. Cardiovascular: Regular rate and rhythm. S1 and S2 present. No murmurs, rubs or gallops heard. Respiratory: No accessory muscle use. Lungs are clear to auscultation bilaterally. Musculoskeletal: No clubbing or cyanosis noted. She moves all extremities. She has full range of motion of the right knee, but does report some discomfort. She has negative log roll on bilateral hips. Additionally has full range of motion of the right hip. No tenderness with palpation of the right knee. No tenderness with palpation of the right hip. The right leg with edema throughout. I am unable to palpate an effusion in the right knee. DP pulse present on the right. Abdomen: Bowel sounds present. Abdomen is soft, nontender, nondistended. Psychological: Calm and cooperative. Skin: No rashes seen. She was noted to have slight area of erythema above the wound VAC dressing on the medial aspect of her right leg near the knee. She is then noted to have an area of erythema that starts on her medial anterior right thigh and move towards the lateral aspect of her right thigh towards the right hip. There is no warmth, no drainage, no open wounds. She again has a wound VAC to the medial aspect of the right knee. DIAGNOSTIC STUDIES/LAB DATA: Sodium 137, potassium 3.8, chloride 104, CO2 of 24 , BUN 36, creatinine 1.46, glucose 105. White blood cell count 7.5, hemoglobin 8.2, hematocrit 24, platelet count 186. CRP 176.50. Please see impression and recommendations outlined above, recommendations have been discussed with PHYLLIS Nicholas and Dr. Arnold Holguin. Thank you for asking us to see Ms. Martin in consultation. The case has been discussed with my attending, Dr. Chaitanya Salcedo, who agrees with the plan of care. Reviewed by SHABANA BENSON, VY-C [id number]/[facility] #: [id number] MTDD
[2019-10-12] MEDS: Isosorbide Mononitrate ER TAB* 30 MG PO SCH (15:45)
[2019-10-12] MEDS: Fluticasone NASAL SPRAY 50MCG* 16 gm SPRAY BTL BOTH NARES SCH (15:45)
[2019-10-12] MEDS: Hydrocodone/Acetamin 10/325 MG 1 TAB PO PRN ×2 (15:45→20:41)
[2019-10-12] MEDS: Mometasone 220 MCG MDI INH SCH (20:35)
[2019-10-12] MEDS: Cetirizine* 10 MG TAB PO SCH (20:39)
[2019-10-12] MEDS: Pramipexole TAB* 0.5 MG PO SCH (20:40)
[2019-10-12] MEDS: Primidone 50 mg TAB (*) PO SCH (20:41)
[2019-10-12] MEDS: NON FORMULARY MED* (Melatonin [Melatonin] 10 MG) PO SCH (20:58)
[2019-10-12] MEDS ORDERED: Venlafaxine EXT RELEASE CAP* 37.5 MG PO SCH (21:00)
[2019-10-12] MEDS ORDERED: Fluticasone NASAL SPRAY 50MCG* 16 gm SPRAY BTL BOTH NARES SCH (21:00)
[2019-10-13] MEDS: Hydrocodone/Acetamin 10/325 MG 1 TAB PO PRN ×5 (00:55→22:09)
[2019-10-13] MEDS: Levothyroxine TAB* 175 MCG TAB PO SCH (05:20)
[2019-10-13] MEDS: Heparin VIAL(*) 5000 UNITS/ML VIAL (FIVE THOUSAND) SUBCUT SCH ×3 (05:20→21:55)
[2019-10-13 08:41] LABS: ABS Eosinophils 0.3 10^3/ul (0-0.6); ABS Lymphocytes 1.9 10^3/ul (1.0-4.8); ABS Monocytes 0.6 10^3/ul (0-0.8); ABS Neutrophils 3.3 10^3/ul (1.5-7.7); Eosinophil % 5.4 %; Hematocrit 24 % (35-47); Hemoglobin 8.2 g/dL (12.0-16.0); Lymphocyte % 30.4 %; Mean Corpuscular HGB Conc 34 g/dL (31-36); Mean Corpuscular Hemoglobin 33 pg (27-31); Mean Corpuscular Volume 97 fL (80-97); Mean Platelet Volume 7.4 fL (7.4-10.4); Platelet Count 195 10^3/uL (150-450); Red Blood Count 2.52 10^6 /uL (3.70-4.87); Red Cell Distribution Width 13 % (10-15); White Blood Count 6.2 10^3/uL (3.5-10.8)
[2019-10-13 08:57] LABS: BUN/Creatinine Ratio 21.5 (8-20); Calcium 8.7 mg/dL (8.6-10.3); EGFR African American 40.8 (>60); EGFR Non-African American 33.8 (>60); Potassium 3.9 mmol/L (3.5-5.0)
[2019-10-13] MEDS: Amiodarone TAB* 200 MG PO SCH (09:32)
[2019-10-13] MEDS: amLODIPine TAB* 5 MG PO SCH (09:33)
[2019-10-13] MEDS: Docusate CAP* 100 MG PO SCH ×2 (09:34→21:53)
[2019-10-13] MEDS: Ezetimibe TAB* 10 MG PO SCH (09:34)
[2019-10-13] MEDS: Clopidogrel TAB* 75 MG PO SCH (09:34)
[2019-10-13] MEDS: Montelukast Sodium TAB* 10 MG PO SCH (09:35)
[2019-10-13] MEDS: Pantoprazole TAB * 40 MG TAB PO SCH ×2 (09:35→21:54)
[2019-10-13] MEDS: Metoprolol Succinate XL TAB* 25 MG PO SCH ×2 (09:35→22:09)
[2019-10-13] MEDS: Isosorbide Mononitrate ER TAB* 30 MG PO SCH (09:35)
[2019-10-13] MEDS: Fluticasone NASAL SPRAY 50MCG* 16 gm SPRAY BTL BOTH NARES SCH ×2 (09:36→21:55)
[2019-10-13] MEDS: Senna TAB 8.6 mg* TAB PO SCH ×2 (09:36→21:54)
[2019-10-13] MEDS: Torsemide TAB* 20 MG PO SCH ×2 (09:36→18:23)
--- NOTE | 2019-10-13 10:23 | PN ---
Progress Note - Progress Note Date of Service: 10/13/19 SOAP: Subjective: Pt seen at bedside for right leg wound, thigh cellulitis. States that she is doing ok, pain under control. Denies CP/SOB, f/c, n/v. Objective: Vital Signs: Temp Pulse Resp BP Pulse Ox 97.7 F 62 18 126/50 100 10/13/19 07:56 10/13/19 07:56 10/13/19 08:22 10/13/19 07:56 10/13/19 07:56 Gen: A&Ox3, NAD at rest laying in bed RLE: Wound VAC taken down, wound measuring 2 cm x 1 cm x 0.5 cm, no surrounding erythema at wound. Erythema at hip improving, full painless PROM of hip. +f/e at ankle and MTPs. DP 2+ Labs: Laboratory Results - last 24 hr 10/13/19 10/13/19 08:27 08:27 WBC 6.2 RBC 2.52 L Hgb 8.2 L Hct 24 L MCV 97 MCH 33 H MCHC 34 RDW 13 Plt Count 195 MPV 7.4 Neut % (Auto) 53.3 Lymph % (Auto) 30.4 [place] % (Auto) 10.3 Eos % (Auto) 5.4 Baso % (Auto) 0.6 Absolute Neuts (auto) 3.3 Absolute Lymphs (auto) 1.9 Absolute Monos (auto) 0.6 Absolute Eos (auto) 0.3 Absolute Basos (auto) 0.0 Absolute Nucleated RBC 0.0 Nucleated RBC % 0.0 Sodium 137 Potassium 3.9 Chloride 103 Carbon Dioxide 28 Anion Gap 6 BUN 32 H Creatinine 1.49 H Est GFR ( Amer) 40.8 Est GFR (Non-Af Amer) 33.8 BUN/Creatinine Ratio 21.5 H Glucose 87 Calcium 8.7 Assessment: Right posterior knee wound, right thigh cellulitis Plan: D/C wound vac, daily saline wet to dry dressing changes F/u with Dr. Umana in 1 week for wound check Abx per ID Ok for d/c when medically stable
[2019-10-13 10:32] LABS: Uric Acid 10.6 mg/dL (2.3-6.6)
[2019-10-13] MEDS: Gabapentin CAP(*) 100 MG PO SCH ×2 (10:39→21:54)
--- NOTE | 2019-10-13 11:15 | PN ---
Progress Note - Progress Note Date of Service: 10/13/19 SOAP: Subjective: CC: Right LE cellulitis HPI: Ms. Martin is a 78 yo woman with PMH significant for asthma, lymphedema, VALENTIN, RLS, HTN, chronic anemia, myeloproliferative disorder, P afib, heart failure with pEF, essential tremor, fibromyalgia, GERD, hypothyroidism, CAD, CKD 3, esophageal spasm, gastric ulcer and angina; who presented to the hospital with erythema adjacent to right knee and up the thigh. Denies fever, chills, nausea, vomiting, or diarrhea. Reports mild right knee and LE pain. Erythema to the right LE is improving. Objective: Vital Signs 10/13/19 10/13/19 10/13/19 07:56 08:00 08:22 Temperature 97.7 F Pulse Rate 62 Respiratory 18 18 18 Rate Blood Pressure 126/50 (mmHg) O2 Sat by Pulse 100 Oximetry Physical Exam: General: NAD, laying in bed Neurological: Alert and Oriented HEENT: Moist MM, no thrush Cardiovascular: Heart rate regular Respiratory: Lung sounds clear Abdominal: Bowel sounds present; ABD soft, non tender and obese MSK: No tenderness with palpation of the right knee, able to move left knee without difficulty. Negative log roll bilateral hips. Mild tenderness with palpation of the right hip Skin: No rash. Small healing wound to the medial aspect of the right knee, wound base with red granulation tissue Laboratory Results - last 24 hr 10/13/19 10/13/19 08:27 08:27 WBC 6.2 RBC 2.52 L Hgb 8.2 L Hct 24 L MCV 97 MCH 33 H MCHC 34 RDW 13 Plt Count 195 MPV 7.4 Neut % (Auto) 53.3 Lymph % (Auto) 30.4 [place] % (Auto) 10.3 Eos % (Auto) 5.4 Baso % (Auto) 0.6 Absolute Neuts (auto) 3.3 Absolute Lymphs (auto) 1.9 Absolute Monos (auto) 0.6 Absolute Eos (auto) 0.3 Absolute Basos (auto) 0.0 Absolute Nucleated RBC 0.0 Nucleated RBC % 0.0 Sodium 137 Potassium 3.9 Chloride 103 Carbon Dioxide 28 Anion Gap 6 BUN 32 H Creatinine 1.49 H Est GFR ( Amer) 40.8 Est GFR (Non-Af Amer) 33.8 BUN/Creatinine Ratio 21.5 H Glucose 87 Uric Acid 10.6 H Calcium 8.7 Microbiology 10/11/19 00:00 Aerobic Blood Culture - Preliminary Blood Venous No Growth Day 1 Anaerobic Blood Culture - Preliminary No Growth Day 1 10/11/19 23:39 Aerobic Blood Culture - Preliminary Blood Venous No Growth Day 1 Anaerobic Blood Culture - Preliminary No Growth Day 1 Assessment: 1. Right LE cellulitis. S/P I&D during previous visit in August. Blood cultures with no growth to date. No new cultures this visit. CRP elevated. No leukocytosis and afebrile. 2. Morbid obesity. BMI 48.8 3. CKD, stage 3 4. Bilateral lower extremities lymphedema Plan: Discontinue Daptomycin and plan to start Linezolid if Pt is agreeable to stop taking Effexor while she is on it. Monitor for signs of serotonin syndrome (she previously developed increased tremors while on both). If she doesn't agree to hold Effexor, recommend continued Daptomycin outpatient. Recommendations discussed with Dr. Cherie Holguin.
--- NOTE | 2019-10-13 16:15 | PN ---
Subjective Date of Service: 10/13/19 Interval History: afebrile, no acute events overnight. redness and pain reduced in right leg. still with pain near b/l ankles, feels edematous. denies chest pain, abdominal pain, cough, SOB, f/c/n/v/d/c. Objective Active Medications: Acetaminophen (Tylenol Tab*) 650 mg PO Q4H PRN PRN Reason: PAIN - MILD Last Admin: 10/12/19 08:08 Dose: 650 mg Hydrocodone Bitart/Acetaminophen ([place] 10/325 (Nf)) 1 tab PO Q4H PRN PRN Reason: PAIN - MODERATE Hydrocodone Bitart/Acetaminophen ([place] 10/325 (Nf)) 2 tab PO Q4H PRN PRN Reason: PAIN - SEVERE Last Admin: 10/13/19 10:41 Dose: 2 tab Albuterol (Ventolin 2.5 Mg/3 Ml Neb.Raiza*) 2.5 mg INH Q4H PRN PRN Reason: SOB/WHEEZING Amiodarone HCl (Cordarone Tab*) 100 mg PO DAILY [facility] Last Admin: 10/13/19 09:32 Dose: 100 mg Amlodipine Besylate (Norvasc Tab*) 10 mg PO DAILY [facility] Last Admin: 10/13/19 09:33 Dose: 10 mg Cetirizine HCl (Zyrtec*) 10 mg PO BEDTIME [facility] Last Admin: 10/12/19 20:39 Dose: 10 mg Clopidogrel Bisulfate (Plavix Tab*) 75 mg PO DAILY [facility] Last Admin: 10/13/19 09:34 Dose: 75 mg Docusate Sodium (Colace Cap*) 200 mg PO BID [facility] Last Admin: 10/13/19 09:34 Dose: 200 mg Ezetimibe (Zetia Tab*) 10 mg PO DAILY [facility] Last Admin: 10/13/19 09:34 Dose: 10 mg Fluticasone Propionate (Flonase Nasal [place] 50mcg*) 1 spray BOTH NARES BID [facility] Last Admin: 10/13/19 09:36 Dose: 1 spray Gabapentin (Neurontin Cap(*)) 100 mg PO BID [facility] Last Admin: 10/13/19 10:39 Dose: 100 mg Heparin Sodium (Porcine) (Heparin Vial(*)) 5,000 units SUBCUT Q8HR [facility] Last Admin: 10/13/19 13:49 Dose: 5,000 units Daptomycin 500 mg/ Sodium (Chloride) 60 mls @ 100 mls/hr IVPB Q48H [facility] Isosorbide Mononitrate (Imdur Er Tab*) 30 mg PO DAILY [facility] Last Admin: 10/13/19 09:35 Dose: 30 mg Levothyroxine Sodium (Synthroid Tab*) 175 mcg PO DAILY@0600 [facility] Last Admin: 10/13/19 05:20 Dose: 175 mcg Metoprolol Succinate (Toprol Xl Tab*) 25 mg PO BID [facility] Last Admin: 10/13/19 09:35 Dose: 25 mg Mometasone Furoate (Asmanex 220 Mcg Mdi *) 1 puff INH QPM [facility] Last Admin: 10/12/19 20:35 Dose: 1 puff Montelukast Sodium (Singulair Tab*) 10 mg PO DAILY [facility] Last Admin: 10/13/19 09:35 Dose: 10 mg Non-Formulary Medication (Melatonin [Melatonin]) 10 mg PO BEDTIME [facility] Last Admin: 10/12/19 20:58 Dose: Not Given Ondansetron HCl (Zofran Inj*) 4 mg IV Q6H PRN PRN Reason: NAUSEA Pantoprazole Sodium (Protonix Tab*) 40 mg PO BID [facility] Last Admin: 10/13/19 09:35 Dose: 40 mg Pramipexole Dihydrochloride (Mirapex Tab*) 2 mg PO BEDTIME [facility] Last Admin: 10/12/19 20:40 Dose: 2 mg Primidone (Mysoline 250 Mg Tab (*)) 150 mg PO BEDTIME [facility] Last Admin: 10/12/19 20:41 Dose: 150 mg Senna (Senokot 8.6 Mg Tab*) 2 tab PO BID [facility] Last Admin: 10/13/19 09:36 Dose: 2 tab Torsemide (Demadex*) 20 mg PO DAILY [facility] Last Admin: 10/13/19 09:36 Dose: 20 mg Vital Signs - 8 hr 10/13/19 10/13/19 10/13/19 08:22 10:39 10:41 Temperature Pulse Rate Respiratory 18 18 18 Rate Blood Pressure (mmHg) O2 Sat by Pulse Oximetry 10/13/19 10/13/19 10/13/19 11:09 13:32 15:11 Temperature 97.9 F 97.3 F Pulse Rate 64 64 Respiratory 16 18 18 Rate Blood Pressure 137/40 145/46 (mmHg) O2 Sat by Pulse 100 99 Oximetry Oxygen Devices in Use Now: Nasal Cannula Appearance: NAD Eyes: No Scleral Icterus Neck: NL Appearance and Movements; NL JVP Respiratory: Symmetrical Chest Expansion and Respiratory Effort, Clear to Auscultation Cardiovascular: NL Sounds; No Murmurs; No JVD Abdominal: NL Sounds; No Tenderness; No Distention, No Hepatosplenomegaly Extremities: - - trace edema b/l. right leg erythema improved in thigh to hip with less warmth. medial right knee with ~1.5 cm deep, 1.5 cm wide wound when vac removed. no drainage. Neurological: Alert and Oriented x 3, NL Muscle Strength and Tone Nutrition: Taking PO's Result Diagrams: 10/13/19 08:27 10/13/19 08:27 Additional Lab and Data: Laboratory Results - last 24 hr 10/13/19 10/13/19 10/13/19 08:27 08:27 08:27 WBC 6.2 RBC 2.52 L Hgb 8.2 L Hct 24 L MCV 97 MCH 33 H MCHC 34 RDW 13 Plt Count 195 MPV 7.4 Neut % (Auto) 53.3 Lymph % (Auto) 30.4 [place] % (Auto) 10.3 Eos % (Auto) 5.4 Baso % (Auto) 0.6 Absolute Neuts (auto) 3.3 Absolute Lymphs (auto) 1.9 Absolute Monos (auto) 0.6 Absolute Eos (auto) 0.3 Absolute Basos (auto) 0.0 Absolute Nucleated RBC 0.0 Nucleated RBC % 0.0 Sodium 137 Potassium 3.9 Chloride 103 Carbon Dioxide 28 Anion Gap 6 BUN 32 H Creatinine 1.49 H Est GFR ( Amer) 40.8 Est GFR (Non-Af Amer) 33.8 BUN/Creatinine Ratio 21.5 H Glucose 87 Hemoglobin A1c 5.7 H Uric Acid 10.6 H Calcium 8.7 Microbiology and Other Data: Microbiology 10/11/19 01:38 Urine Urine Culture - Final 10/11/19 00:00 Blood Venous Aerobic Blood Culture - Preliminary No Growth Day 1 10/11/19 00:00 Blood Venous Anaerobic Blood Culture - Preliminary No Growth Day 1 10/11/19 23:39 Blood Venous Aerobic Blood Culture - Preliminary No Growth Day 1 10/11/19 23:39 Blood Venous Anaerobic Blood Culture - Preliminary No Growth Day 1 Assess/Plan/Problems-Billing Assessment: 78 yo female PMH CAD s/p CABG, HTN, pAfib (not on a/c due to GIB), HFpEF, VALENTIN( no CPAP), CKD, gout, neuropathy, right leg VRE infection s/p dapto presenting with right leg pain, erythema consistent with cellulitis. - Patient Problems (1) Cellulitis of right leg Current Visit: Yes Status: Acute Code(s): L03.115 - CELLULITIS OF RIGHT LOWER LIMB SNOMED Code(s): 912228828 Comment: Appreciate ID recs recommend switch to po linezolid. Of note there are reports of suspected serotonin syndrome last time she was on this. Her effexor will be stopped and hold linezolid at least until tomorrow. She missed some doses of dapotmycine set up for her at infusion center/[place] [facility]. Will stop the daptomycin appreciate ortho recs, no involvment of the right hip suspected. can move w/o pain wound vacc removed, will do wet to dry dressings now. (2) Anemia Current Visit: No Status: Acute Priority: High Code(s): D64.9 - ANEMIA, UNSPECIFIED SNOMED Code(s): 012664432 Comment: Hgb 8.2 normocytic. unchanged today. Ferritin 384 in 04/08. Likely CKD but consider repeat iron studies -no symptoms or signs of bleeding (3) Chronic diastolic (congestive) heart failure Current Visit: No Status: Acute Code(s): I50.32 - CHRONIC DIASTOLIC ( CONGESTIVE) HEART FAILURE SNOMED Code(s): 088579642 Comment: -continue torsemide -elevate legs - daily weights - add BNP. (4) Chronic pain Current Visit: No Status: Acute Code(s): G89.29 - OTHER CHRONIC PAIN SNOMED Code(s): 84828606 Comment: -Continue home norco: 1-2tabs q4, MDD 8 (5) DVT prophylaxis Current Visit: No Status: Acute Code(s): HPE4482 - SNOMED Code(s): 330562199 Comment: heparin 5000 TID given CKD (6) Full code status Current Visit: No Status: Acute Code(s): Z78.9 - OTHER SPECIFIED HEALTH STATUS SNOMED Code(s): 394331532 (7) Paroxysmal atrial fibrillation Current Visit: No Status: Acute Code(s): I48.0 - PAROXYSMAL ATRIAL FIBRILLATION SNOMED Code(s): 034327548 Comment: - S/p MAZE procedure. - Continue Amiodarone 100 dailya nd Metoprolol 25 BID. - Not on anticoagulation due to h/o GI bleed. (8) CAD (coronary artery disease) Current Visit: No Status: Chronic Code(s): I25.10 - ATHSCL HEART DISEASE OF [place] CORONARY ARTERY W/O ANG PCTRS SNOMED Code(s): 57624883 Comment: -Continue metoprolol, amlodipine, Zetia, plavix (9) CKD (chronic kidney disease) Current Visit: No Status: Chronic Priority: High Code(s): N18.9 - CHRONIC KIDNEY DISEASE, UNSPECIFIED SNOMED Code(s): 812605854 Comment: -improved back to baseline. (10) HLD (hyperlipidemia) Current Visit: No Status: Chronic Code(s): E78.5 - HYPERLIPIDEMIA, UNSPECIFIED SNOMED Code(s): 28089107 Comment: -Continue zetia (11) Hypertension Current Visit: No Status: Chronic Code(s): I10 - ESSENTIAL (PRIMARY) HYPERTENSION SNOMED Code(s): 05205056 Comment: -Continue metoprolol succ 25 BID and amlodipine 10 daily and torsemide 20mg daily - imdur ER 30 daily was added 10/11 with improvement, now 120-130s. (12) Hypothyroidism Current Visit: No Status: Chronic Code(s): E03.9 - HYPOTHYROIDISM, UNSPECIFIED SNOMED Code(s): 17365087 Comment: Continue levothyroxine at current dose. Last TSH in 01/2019 was in good range. (13) Obstructive sleep apnea Current Visit: No Status: Chronic Priority: High Code(s): G47.33 - OBSTRUCTIVE SLEEP APNEA (ADULT) (PEDIATRIC) SNOMED Code(s): 69735518 Comment: - Patient wears supplemental O2 2 L/min overnight, but not CPAP (14) RLS (restless legs syndrome) Current Visit: No Status: Chronic Comment: Continue mirapex. Status and Disposition: medicine inpatient. on IV abx with transition to po linezolid.
[2019-10-13] MEDS: Mometasone 220 MCG MDI INH SCH (21:13)
[2019-10-13] MEDS: Primidone 50 mg TAB (*) PO SCH (21:54)
[2019-10-13] MEDS: Pramipexole TAB* 0.5 MG PO SCH (21:54)
[2019-10-13] MEDS: Cetirizine* 10 MG TAB PO SCH (21:55)
[2019-10-13] MEDS: NON FORMULARY MED* (Melatonin [Melatonin] 10 MG) PO SCH (22:01)
[2019-10-14] MEDS: Heparin VIAL(*) 5000 UNITS/ML VIAL (FIVE THOUSAND) SUBCUT SCH ×3 (04:58→20:36)
[2019-10-14] MEDS: Levothyroxine TAB* 175 MCG TAB PO SCH (04:59)
[2019-10-14] MEDS: Hydrocodone/Acetamin 10/325 MG 1 TAB PO PRN ×4 (05:15→20:46)
[2019-10-14] MEDS ORDERED: DAPTOmycin SDV(*) 500 MG in NS 0.9% 50 ML* 50 ML IVPB SCH (06:00)
[2019-10-14] MEDS: Docusate CAP* 100 MG PO SCH ×2 (08:36→20:33)
[2019-10-14] MEDS: Fluticasone NASAL SPRAY 50MCG* 16 gm SPRAY BTL BOTH NARES SCH ×2 (08:36→20:48)
[2019-10-14] MEDS: Torsemide TAB* 20 MG PO SCH (08:37)
[2019-10-14] MEDS: amLODIPine TAB* 5 MG PO SCH (08:37)
[2019-10-14] MEDS: Ezetimibe TAB* 10 MG PO SCH (08:37)
[2019-10-14] MEDS: Amiodarone TAB* 200 MG PO SCH (08:38)
[2019-10-14] MEDS: Senna TAB 8.6 mg* TAB PO SCH ×2 (08:38→20:36)
[2019-10-14] MEDS: Isosorbide Mononitrate ER TAB* 30 MG PO SCH (08:38)
[2019-10-14] MEDS: Montelukast Sodium TAB* 10 MG PO SCH (08:38)
[2019-10-14] MEDS: Gabapentin CAP(*) 100 MG PO SCH ×2 (08:39→20:33)
[2019-10-14] MEDS: Pantoprazole TAB * 40 MG TAB PO SCH ×2 (08:39→20:35)
[2019-10-14] MEDS: Clopidogrel TAB* 75 MG PO SCH (08:39)
[2019-10-14] MEDS: Metoprolol Succinate XL TAB* 25 MG PO SCH ×2 (09:49→20:34)
--- NOTE | 2019-10-14 10:28 | PN ---
Progress Note - Progress Note Date of Service: 10/14/19 SOAP: Subjective: Pt seen at bedside for right leg wound, thigh cellulitis. States that she is doing ok, pain under control. Denies CP/SOB, f/c, n/v. She is very adamant that she would like to go home before sat as sat is her husbands birthday. Objective: Vital Signs Temp 98.6 F 10/14/19 08:20 Pulse 58 10/14/19 08:20 Resp 20 10/14/19 09:54 BP 142/47 10/14/19 08:20 Pulse Ox 95 10/14/19 08:20 Intake & Output 10/13/19 10/14/19 10/14/19 18:59 06:59 18:59 Intake Total 600 140 Output Total 650 700 Balance -50 -560 Intake: IV Fluids 30 IV Fluids 30 IVPB 50 IV Fluids 50 Oral 600 60 Output: Urine 650 700 Other: Estimated Stool Amount Medium Gen: A&Ox3, NAD at rest laying in bed RLE: Dressing changed wound measuring 2 cm x 1 cm x 0.5 cm, mild erythema superior to the wound. Erythema at hip improving, full painless PROM of hip. +f/ e at ankle and MTPs. DP 2+ Assessment: Right posterior knee wound, right thigh cellulitis Plan: Daily saline wet to dry dressing changes F/u with Dr. Umana in 1 week for wound check Abx per ID Ok for d/c when medically stable, pt will be held for another day or two to monitor change in medications.
--- NOTE | 2019-10-14 11:22 | PN ---
Progress Note - Progress Note Date of Service: 10/14/19 SOAP: Subjective: CC: Right LE cellulitis HPI: Ms. Martin is a 78 yo woman with PMH significant for asthma, lymphedema, VALENTIN, RLS, HTN, chronic anemia, myeloproliferative disorder, P afib, heart failure with pEF, essential tremor, fibromyalgia, GERD, hypothyroidism, CAD, CKD 3, esophageal spasm, gastric ulcer and angina; who presented to the hospital with erythema adjacent to right knee and up the thigh. Denies fever, chills, nausea, vomiting, or diarrhea. Right knee and LE pain improving, reports burning discomfort in the top of the right foot. Erythema to the right thigh has almost completely resolved. Objective: Vital Signs 10/14/19 10/14/19 10/14/19 08:20 08:25 08:39 Temperature 98.6 F Pulse Rate 58 Respiratory 20 18 16 Rate Blood Pressure 142/47 (mmHg) O2 Sat by Pulse 95 Oximetry Physical Exam: General: NAD, laying in bed Neurological: Alert and Oriented HEENT: Moist MM, no thrush Cardiovascular: Heart rate regular Respiratory: Lung sounds clear Abdominal: Bowel sounds present; ABD soft, non tender and obese MSK: No tenderness with palpation of the right knee, able to move right knee without difficulty. Negative log roll bilateral hips. No tenderness with palpation of the right hip Skin: No rash. DSG to right knee, no surrounding erythema. Slight dark discoloration to the upper/anterior thigh Microbiology 10/11/19 00:00 Aerobic Blood Culture - Preliminary Blood Venous No Growth Day 2 Anaerobic Blood Culture - Preliminary No Growth Day 2 10/11/19 23:39 Aerobic Blood Culture - Preliminary Blood Venous No Growth Day 2 Anaerobic Blood Culture - Preliminary No Growth Day 2 10/11/19 01:38 Urine Culture - Final Urine Assessment: 1. Right LE cellulitis. S/P I&D during previous visit in August. Cultures from last visit with VRE enterococcous faecium. Blood cultures with no growth to date. No new cultures this visit. CRP elevated. No leukocytosis and afebrile. 2. Morbid obesity. BMI 48.8 3. CKD, stage 3 4. Bilateral lower extremities lymphedema Plan: Discontinue Daptomycin. Effexor was discontinued yesterday (she states that she has not been taking this at home). Start Linezolid 600 mg PO BID. Monitor for signs of serotonin syndrome (she previously developed increased tremors while on both Daptomycin and Effexor). Will plan for 4 weeks of ABX. Followup with ID outpatient (Telemed ok).
--- NOTE | 2019-10-14 12:57 | PN ---
Subjective Date of Service: 10/14/19 Interval History: afebrile, no acute events overnight. leg feeling better each day, less redness and only painful with very deep palpation. does not feel like the 20mg torsemide is working as well anymore, got an evening dose last night (switched to BID) and was able to sleep fine. At home she often rotates between torsemide and lasix 20mg after every 3 weeks. Has been off effexor for 2 months and refused the med two nights ago. birthday on [birth year]. Objective Active Medications: Acetaminophen (Tylenol Tab*) 650 mg PO Q4H PRN PRN Reason: PAIN - MILD Last Admin: 10/12/19 08:08 Dose: 650 mg Hydrocodone Bitart/Acetaminophen ([place] 10/325 (Nf)) 1 tab PO Q4H PRN PRN Reason: PAIN - MODERATE Hydrocodone Bitart/Acetaminophen ([place] 10/325 (Nf)) 2 tab PO Q4H PRN PRN Reason: PAIN - SEVERE Last Admin: 10/14/19 09:54 Dose: 2 tab Albuterol (Ventolin 2.5 Mg/3 Ml Neb.Raiza*) 2.5 mg INH Q4H PRN PRN Reason: SOB/WHEEZING Amiodarone HCl (Cordarone Tab*) 100 mg PO DAILY [facility] Last Admin: 10/14/19 08:38 Dose: 100 mg Amlodipine Besylate (Norvasc Tab*) 10 mg PO DAILY [facility] Last Admin: 10/14/19 08:37 Dose: 10 mg Cetirizine HCl (Zyrtec*) 10 mg PO BEDTIME [facility] Last Admin: 10/13/19 21:55 Dose: 10 mg Clopidogrel Bisulfate (Plavix Tab*) 75 mg PO DAILY [facility] Last Admin: 10/14/19 08:39 Dose: 75 mg Docusate Sodium (Colace Cap*) 200 mg PO BID [facility] Last Admin: 10/14/19 08:36 Dose: 200 mg Ezetimibe (Zetia Tab*) 10 mg PO DAILY [facility] Last Admin: 10/14/19 08:37 Dose: 10 mg Fluticasone Propionate (Flonase Nasal [place] 50mcg*) 1 spray BOTH NARES BID [facility] Last Admin: 10/14/19 08:36 Dose: 1 spray Gabapentin (Neurontin Cap(*)) 100 mg PO BID [facility] Last Admin: 10/14/19 08:39 Dose: 100 mg Heparin Sodium (Porcine) (Heparin Vial(*)) 5,000 units SUBCUT Q8HR [facility] Last Admin: 10/14/19 04:58 Dose: 5,000 units Isosorbide Mononitrate (Imdur Er Tab*) 30 mg PO DAILY [facility] Last Admin: 10/14/19 08:38 Dose: 30 mg Levothyroxine Sodium (Synthroid Tab*) 175 mcg PO DAILY@0600 [facility] Last Admin: 10/14/19 04:59 Dose: 175 mcg Metoprolol Succinate (Toprol Xl Tab*) 25 mg PO BID [facility] Last Admin: 10/14/19 09:49 Dose: 25 mg Mometasone Furoate (Asmanex 220 Mcg Mdi *) 1 puff INH QPM [facility] Last Admin: 10/13/19 21:13 Dose: 1 puff Montelukast Sodium (Singulair Tab*) 10 mg PO DAILY [facility] Last Admin: 10/14/19 08:38 Dose: 10 mg Non-Formulary Medication (Melatonin [Melatonin]) 10 mg PO BEDTIME [facility] Last Admin: 10/13/19 22:01 Dose: Not Given Ondansetron HCl (Zofran Inj*) 4 mg IV Q6H PRN PRN Reason: NAUSEA Pantoprazole Sodium (Protonix Tab*) 40 mg PO BID [facility] Last Admin: 10/14/19 08:39 Dose: 40 mg Pramipexole Dihydrochloride (Mirapex Tab*) 2 mg PO BEDTIME [facility] Last Admin: 10/13/19 21:54 Dose: 2 mg Primidone (Mysoline 250 Mg Tab (*)) 150 mg PO BEDTIME [facility] Last Admin: 10/13/19 21:54 Dose: 150 mg Senna (Senokot 8.6 Mg Tab*) 2 tab PO BID [facility] Last Admin: 10/14/19 08:38 Dose: 2 tab Torsemide (Demadex*) 20 mg PO 0800,1700 [facility] Last Admin: 10/14/19 08:37 Dose: 20 mg Vital Signs - 8 hr 10/14/19 10/14/19 10/14/19 05:15 07:15 08:20 Temperature 98.6 F Pulse Rate 58 Respiratory 20 18 20 Rate Blood Pressure 142/47 (mmHg) O2 Sat by Pulse 95 Oximetry 10/14/19 10/14/19 10/14/19 08:25 08:39 09:54 Temperature Pulse Rate Respiratory 18 16 20 Rate Blood Pressure (mmHg) O2 Sat by Pulse Oximetry 10/14/19 10/14/19 11:00 12:40 Temperature 97.8 F Pulse Rate 59 Respiratory 18 20 Rate Blood Pressure 131/44 (mmHg) O2 Sat by Pulse 99 Oximetry Oxygen Devices in Use Now: None Appearance: NAD, sitting on side of bed Eyes: No Scleral Icterus Ears/Nose/Mouth/Throat: NL Teeth, Lips, Gums Neck: NL Appearance and Movements; NL JVP Respiratory: Symmetrical Chest Expansion and Respiratory Effort, Clear to Auscultation Cardiovascular: NL Sounds; No Murmurs; No JVD Abdominal: NL Sounds; No Tenderness; No Distention Extremities: - - 1+ edema b/l LE, right leg w/o warmth, ~6x8 cm diameter oval patch with fading violacious discoloration. ROM intact. Neurological: Alert and Oriented x 3 Nutrition: Taking PO's Result Diagrams: 10/13/19 08:27 10/13/19 08:27 Additional Lab and Data: Laboratory Results - last 24 hr 10/13/19 08:27 B-Natriuretic Peptide 580 H Microbiology and Other Data: Microbiology 10/11/19 00:00 Blood Venous Aerobic Blood Culture - Preliminary No Growth Day 2 10/11/19 00:00 Blood Venous Anaerobic Blood Culture - Preliminary No Growth Day 2 10/11/19 23:39 Blood Venous Aerobic Blood Culture - Preliminary No Growth Day 2 10/11/19 23:39 Blood Venous Anaerobic Blood Culture - Preliminary No Growth Day 2 10/11/19 01:38 Urine Urine Culture - Final Assess/Plan/Problems-Billing Assessment: 78 yo female PMH CAD s/p CABG, HTN, pAfib (not on a/c due to GIB), HFpEF, VALENTIN( no CPAP), CKD, gout, neuropathy, right leg VRE infection s/p dapto (but some missed outpatient dosing) presenting with right leg pain, erythema consistent with cellulitis. - Patient Problems (1) Cellulitis of right leg Current Visit: Yes Status: Acute Code(s): L03.115 - CELLULITIS OF RIGHT LOWER LIMB SNOMED Code(s): 353546121 Comment: Appreciate ID recs recommend switch to po linezolid when. Of note there are reports of suspected serotonin syndrome last time she was on this. It turns out she has been off the effexor for 2 months and refused first night while here. Got 2nd dose of dapto this AM and pharmacy called to say that they would recommend moving to q24 ( though of note there were no updated labs since they recommended continue q48 yesterday). Hence will start linezolid 600 mg po q12 tomorrow (10/13 AM). appreciate ortho recs, no involvment of the right hip suspected. can move w/o pain wound vacc removed on 10/12, will do wet to dry dressings now. (2) Anemia Current Visit: No Status: Acute Priority: High Code(s): D64.9 - ANEMIA, UNSPECIFIED SNOMED Code(s): 415814481 Comment: Hgb 8.2 normocytic Ferritin 384 in Mar 2019. Likely CKD but consider repeat iron studies -no symptoms or signs of bleeding (3) Chronic diastolic (congestive) heart failure Current Visit: No Status: Acute Code(s): I50.32 - CHRONIC DIASTOLIC ( CONGESTIVE) HEART FAILURE SNOMED Code(s): 814850876 Comment: -switch from torsemide 20mg (tried BID on 10/13) to bumex 1mg daily (with first dose this afternoon) -elevate legs - daily weights!! - BNP 580. (4) Chronic pain Current Visit: No Status: Acute Code(s): G89.29 - OTHER CHRONIC PAIN SNOMED Code(s): 13159156 Comment: -Continue home norco: 1-2tabs q4, MDD 8 continue gabapentin trial, 100mg BID started 10/12 (5) DVT prophylaxis Current Visit: No Status: Acute Code(s): MPQ6193 - SNOMED Code(s): 718764246 Comment: heparin 5000 TID given CKD (6) Full code status Current Visit: No Status: Acute Code(s): Z78.9 - OTHER SPECIFIED HEALTH STATUS SNOMED Code(s): 551566064 (7) Paroxysmal atrial fibrillation Current Visit: No Status: Acute Code(s): I48.0 - PAROXYSMAL ATRIAL FIBRILLATION SNOMED Code(s): 427659435 Comment: - S/p MAZE procedure. - Continue Amiodarone 100 dailya nd Metoprolol 25 BID. - Not on anticoagulation due to h/o GI bleed. (8) CAD (coronary artery disease) Current Visit: No Status: Chronic Code(s): I25.10 - ATHSCL HEART DISEASE OF [place] CORONARY ARTERY W/O ANG PCTRS SNOMED Code(s): 40947609 Comment: -Continue metoprolol, amlodipine, Zetia, plavix (9) CKD (chronic kidney disease) Current Visit: No Status: Chronic Priority: High Code(s): N18.9 - CHRONIC KIDNEY DISEASE, UNSPECIFIED SNOMED Code(s): 946776686 Comment: -improved back to baseline. (10) HLD (hyperlipidemia) Current Visit: No Status: Chronic Code(s): E78.5 - HYPERLIPIDEMIA, UNSPECIFIED SNOMED Code(s): 62830995 Comment: -Continue zetia (11) Hypertension Current Visit: No Status: Chronic Code(s): I10 - ESSENTIAL (PRIMARY) HYPERTENSION SNOMED Code(s): 76288973 Comment: -Continue metoprolol succ 25 BID and amlodipine 10 daily and now bumex. - imdur ER 30 daily was added 10/11 with improvement, now 130-150s mostly. (12) Hypothyroidism Current Visit: No Status: Chronic Code(s): E03.9 - HYPOTHYROIDISM, UNSPECIFIED SNOMED Code(s): 47222634 Comment: Continue levothyroxine at current dose. Last TSH in 01/2019 was in good range. (13) Obstructive sleep apnea Current Visit: No Status: Chronic Priority: High Code(s): G47.33 - OBSTRUCTIVE SLEEP APNEA (ADULT) (PEDIATRIC) SNOMED Code(s): 11560375 Comment: - Patient wears supplemental O2 2 L/min overnight, but not CPAP (14) RLS (restless legs syndrome) Current Visit: No Status: Chronic Comment: Continue mirapex. Status and Disposition: medicine inpatient. Suspect can go home on 3 PM vs 328 AM if stable on transition to po linezolid.
[2019-10-14] MEDS ORDERED: Bumetanide TAB* 2 MG PO ONE (17:00)
[2019-10-14] MEDS: Mometasone 220 MCG MDI INH SCH (20:19)
[2019-10-14] MEDS: Cetirizine* 10 MG TAB PO SCH (20:32)
[2019-10-14] MEDS: NON FORMULARY MED* (Melatonin [Melatonin] 10 MG) PO SCH (20:34)
[2019-10-14] MEDS: Pramipexole TAB* 0.5 MG PO SCH (20:35)
[2019-10-14] MEDS: Primidone 50 mg TAB (*) PO SCH (20:36)
[2019-10-15] MEDS: Hydrocodone/Acetamin 10/325 MG 1 TAB PO PRN ×3 (01:10→13:24)
[2019-10-15 05:45] LABS: ABS Eosinophils 0.3 10^3/ul (0-0.6); ABS Lymphocytes 1.9 10^3/ul (1.0-4.8); ABS Monocytes 0.5 10^3/ul (0-0.8); ABS Neutrophils 3.8 10^3/ul (1.5-7.7); Eosinophil % 4.8 %; Hematocrit 24 % (35-47); Lymphocyte % 29.6 %; Mean Corpuscular HGB Conc 34 g/dL (31-36); Mean Corpuscular Hemoglobin 33 pg (27-31); Mean Corpuscular Volume 97 fL (80-97); Mean Platelet Volume 7.5 fL (7.4-10.4); Nucleated Red Blood Cells % 0.1; Platelet Count 232 10^3/uL (150-450); Red Blood Count 2.44 10^6 /uL (3.70-4.87); Red Cell Distribution Width 14 % (10-15); White Blood Count 6.6 10^3/uL (3.5-10.8)
[2019-10-15] MEDS: Levothyroxine TAB* 175 MCG TAB PO SCH (05:53)
[2019-10-15] MEDS: Heparin VIAL(*) 5000 UNITS/ML VIAL (FIVE THOUSAND) SUBCUT SCH ×2 (05:53→13:26)
[2019-10-15 05:59] LABS: BUN/Creatinine Ratio 20.7 (8-20); Calcium 8.5 mg/dL (8.6-10.3); EGFR African American 31.2 (>60); EGFR Non-African American 25.8 (>60); Potassium 4.2 mmol/L (3.5-5.0)
[2019-10-15] MEDS ORDERED: Bumetanide TAB* 2 MG PO ONE (08:00)
[2019-10-15] MEDS ORDERED: Linezolid TAB* 600 MG PO SCH (08:00)
[2019-10-15] MEDS: Ezetimibe TAB* 10 MG PO SCH (08:13)
[2019-10-15] MEDS: Montelukast Sodium TAB* 10 MG PO SCH (08:13)
[2019-10-15] MEDS: Amiodarone TAB* 200 MG PO SCH (08:13)
[2019-10-15] MEDS: Pantoprazole TAB * 40 MG TAB PO SCH (08:15)
[2019-10-15] MEDS: Gabapentin CAP(*) 100 MG PO SCH (08:15)
[2019-10-15] MEDS: Isosorbide Mononitrate ER TAB* 30 MG PO SCH (08:17)
[2019-10-15] MEDS: Senna TAB 8.6 mg* TAB PO SCH (08:18)
[2019-10-15] MEDS: Clopidogrel TAB* 75 MG PO SCH (08:18)
[2019-10-15] MEDS: Docusate CAP* 100 MG PO SCH (08:18)
[2019-10-15] MEDS: Metoprolol Succinate XL TAB* 25 MG PO SCH (08:18)
[2019-10-15] MEDS: amLODIPine TAB* 5 MG PO SCH (08:19)
[2019-10-15] MEDS: Fluticasone NASAL SPRAY 50MCG* 16 gm SPRAY BTL BOTH NARES SCH (08:20)
--- NOTE | 2019-10-15 09:42 | PN ---
Progress Note - Progress Note Date of Service: 10/15/19 SOAP: Subjective: [Pt seen at bedside for right leg wound, thigh cellulitis. States that she is doing ok, pain under control. Denies CP/SOB, f/c, n/v. She is very adamant that she would like to go home before sat as sat is her husbands birthday. Objective: Vital Signs Temp 97.1 F 10/15/19 08:06 Pulse 61 10/15/19 08:06 Resp 18 10/15/19 08:25 BP 138/47 10/15/19 08:06 Pulse Ox 95 10/15/19 08:06 Intake & Output 10/14/19 10/15/19 10/15/19 18:59 06:59 18:59 Intake Total 480 480 300 Output Total 450 750 Balance 30 -270 300 Weight 248 lb 12.8 oz Intake: Oral 480 480 300 Output: Urine 450 750 Other: Estimated Void Medium # Voids 1 Gen: A&Ox3, NAD at rest laying in bed RLE: Dressing changed wound measuring 2 cm x 1 cm x 0.5 cm, mild erythema superior to the wound. Erythema at hip has appeared to resolve at this point. She continue s to have TTP about the hip at this point but is unsure if this is her fibromyalgia. She has full painless PROM of hip. +f/e at ankle and MTPs. DP 2+ Assessment: Right posterior knee wound, right thigh cellulitis Plan: Daily saline wet to dry dressing changes F/u with Dr. Umana in 1 week for wound check Abx per ID Ok for d/c when medically stable, pt will be held for another day or two to monitor change in medications.
--- NOTE | 2019-10-15 11:21 | PN ---
Progress Note - Progress Note Date of Service: 10/15/19 SOAP: Subjective: CC: Right LE cellulitis HPI: Ms. Martin is a 78 yo woman with PMH significant for asthma, lymphedema, VALENTIN, RLS, HTN, chronic anemia, myeloproliferative disorder, P afib, heart failure with pEF, essential tremor, fibromyalgia, GERD, hypothyroidism, CAD, CKD 3, esophageal spasm, gastric ulcer and angina; who presented to the hospital with erythema adjacent to right knee and up the thigh. Denies fever, chills, nausea, vomiting, or diarrhea. Right knee and LE pain improving, reports burning discomfort in the top of the right foot and ankle. Erythema to the right thigh has almost completely resolved. Noted to have erythema to the right benton while standing at the sink in the bathroom, this improved once back in bed. Noted to have pitting edema to the right LE. Objective: Vital Signs - 8 hr 10/15/19 10/15/19 10/15/19 06:01 08:06 08:15 Temperature 97.1 F Pulse Rate 61 Respiratory 16 16 18 Rate Blood Pressure 138/47 (mmHg) O2 Sat by Pulse 95 Oximetry Physical Exam: General: NAD, laying in bed Neurological: Alert and Oriented HEENT: Moist MM, no thrush Cardiovascular: Heart rate regular. RLE 1+ pitting edema Respiratory: Lung sounds clear Abdominal: Bowel sounds present; ABD soft, non tender and obese MSK: No tenderness with palpation of the right knee, able to move right knee without difficulty. Negative log roll bilateral hips. No tenderness with palpation of the right hip. Able to dorsi and plantar flex right LE Skin: No rash. DSG to right knee, no surrounding erythema. Slight dark discoloration to the upper/anterior thigh. Slight erythema to the right benton with mild warmth Laboratory Results - last 24 hr 10/15/19 10/15/19 05:24 05:24 WBC 6.6 RBC 2.44 L Hgb 8.0 L Hct 24 L MCV 97 MCH 33 H MCHC 34 RDW 14 Plt Count 232 MPV 7.5 Neut % (Auto) 57.7 Lymph % (Auto) 29.6 Irwin % (Auto) 7.5 Eos % (Auto) 4.8 Baso % (Auto) 0.4 Absolute Neuts (auto) 3.8 Absolute Lymphs (auto) 1.9 Absolute Monos (auto) 0.5 Absolute Eos (auto) 0.3 Absolute Basos (auto) 0.0 Absolute Nucleated RBC 0.0 Nucleated RBC % 0.1 Sodium 136 Potassium 4.2 Chloride 103 Carbon Dioxide 28 Anion Gap 5 BUN 39 H Creatinine 1.88 H Est GFR ( Amer) 31.2 Est GFR (Non-Af Amer) 25.8 BUN/Creatinine Ratio 20.7 H Glucose 98 Calcium 8.5 L Microbiology 10/11/19 00:00 Aerobic Blood Culture - Preliminary Blood Venous No Growth Day 3 Anaerobic Blood Culture - Preliminary No Growth Day 3 10/11/19 23:39 Aerobic Blood Culture - Preliminary Blood Venous No Growth Day 3 Anaerobic Blood Culture - Preliminary No Growth Day 3 10/11/19 01:38 Urine Culture - Final Urine Assessment: 1. Right LE cellulitis. S/P I&D during previous visit in August. Cultures from last visit with VRE enterococcous faecium. Previously with a wound vac, the wound is healing well. Blood cultures with no growth to date. No new cultures this visit. CRP elevated. No leukocytosis and afebrile. 2. Morbid obesity. BMI 48.8 3. CKD, stage 3 4. Bilateral lower extremities lymphedema Plan: Continue Linezolid 600 mg PO BID, day 08/17. Monitor for signs of serotonin syndrome (she previously developed increased tremors while on both Daptomycin and Effexor). Followup with ID outpatient ([facility]).
[2019-10-15 15:57] VITALS: BP 136/45
--- NOTE | 2019-10-16 15:14 | DS ---
DISCHARGE SUMMARY: DATE OF ADMISSION: 10/12/19 DATE OF DISCHARGE: 10/15/19 PRIMARY DIAGNOSIS: Cellulitis, right lower extremity. SECONDARY DIAGNOSES: 1. Chronic wound, right posterior knee, requiring wound VAC placement. 2. Enterococcus faecium infection proven in the knee wound. 3. Chronic lymphedema, bilateral lower extremities. 4. Asthma. 5. Obstructive sleep apnea with overnight oxygen use. 6. Restless legs syndrome. 7. Esophageal spasm. 8. Hypertension. 9. Chronic anemia. 10. Heart failure with preserved ejection fraction. 11. Myeloproliferative disorder. 12. Peptic ulcer disease. 13. Coronary artery disease with stable angina. 14. Gastroesophageal reflux disease. 15. Fibromyalgia. 16. Essential tremor. 17. Atrial fibrillation. 18. Hypothyroidism. 19. Headaches. 20. Chronic kidney disease, baseline creatinine around 1.3. MEDICATIONS ON DISCHARGE: 1. Albuterol nebulizer 4 times daily p.r.n. wheezing. 2. Albuterol inhaler 2 puffs q.6 hours p.r.n. wheezing, as alternative to nebulizer. 3. Amiodarone 100 mg p.o. daily. 4. Amlodipine 10 mg p.o. daily. 5. Calcium carbonate with magnesium 1 tab p.o. daily. 6. Vitamin D 2000 units p.o. daily. 7. Plavix 75 mg p.o. daily. 8. Zetia 10 mg p.o. daily. 9. Flovent HFA 110 one inhalation b.i.d. 10. Fluticasone nasal spray 1 spray both nostrils daily. 11. Hydrocodone with acetaminophen 10/325 one to two tabs p.o. q.4 hours p.r.n. pain. 12. Levocetirizine 5 mg p.o. daily. 13. Levothyroxine 175 mcg p.o. daily. 14. Melatonin 10 mg p.o. q.h.s. p.r.n. insomnia. 15. Toprol-XL 25 mg p.o. b.i.d. 16. Singulair 10 mg p.o. daily. 17. Multivitamin with folic acid 1 tab p.o. daily. 18. Omeprazole 20 mg p.o. b.i.d. 19. Mirapex 2 mg p.o. q.h.s. 20. Primidone 150 mg p.o. q.p.m. 21. Senna with docusate 2 tabs p.o. b.i.d. 22. Shark fin cartilage 1000 mg p.o. b.i.d. 23. Torsemide 20 mg p.o. daily. 24. Vitamin B 1 tab p.o. q.a.m. 25. Tylenol as needed. 26. Gabapentin 100 mg p.o. b.i.d. 27. Isosorbide mononitrate 30 mg p.o. daily. 28. Linezolid 600 mg p.o. q.12 hours for 28 days. Date of discharge on was day 1 . CONSULTATIONS: Dr. Salcedo and Fawn Chang NP, of Infectious Disease and PHYLLIS Nicholas, of Orthopedics. PROCEDURES: None. COMPLICATIONS: None. HOSPITAL COURSE: A 78-year-old woman with history of longstanding wound on the right posterior knee proven to be Enterococcus faecium on culture from 08/25/19 , presented with redness spreading up her knee to her hip on the right. The patient was admitted for treatment of cellulitis. A CAT scan of the lower extremity on admission showed osteophytic spurring in the right knee with a moderate right knee effusion and diffuse subcutaneous edema or cellulitis of the thigh, knee, ankle, and foot. No abscesses were seen. Lower extremity Doppler was negative for DVT. Consultation was obtained with Surgery and they managed the wound VAC and advised that this did not appear to be a deep knee or hip joint infection and only required treatment for cellulitis. Infectious Disease consultation was obtained and she was treated with intravenous daptomycin given the sensitivities of the previous cultures. New cultures taken during the hospital stay were negative to growth after 4 days and urine culture was also negative. Initial white count 8.7. She has chronic anemia with hemoglobin around 8 to 9, normal platelets. Her chronic kidney disease, on admission her creatinine was 1.7 and fell to 1.46, but then sangeeta to 1.88 on discharge. BNP was 580 consistent with heart failure, which was not directly treated. Her diuretics were held, but restarted upon discharge. The patient had quick resolution of erythema and tenderness in the right upper thigh and down her knee with intravenous daptomycin. The patient had a previous episode of serotonin syndrome when she was taking Effexor plus linezolid. The Effexor was stopped during this hospital stay and she was restarted on linezolid on discharge. She should continue to have home care from visiting nurses for the wound VAC. DISPOSITION: To home. DIET: Will be low-salt, low-fat. ACTIVITY: Ambulate as tolerated. Wear edema stocking both legs up to the knee , elevate legs when at rest, take off edema stocking at night. STATUS: Inpatient. CONDITION: Stable. DISCHARGE INSTRUCTIONS: Followup with Dr. Villeda is set up for 10/20/19 at 10: 30 a.m. She should also follow up with visiting nurse and see the wound clinic within 2 weeks as an outpatient. TIME SPENT: I spent more than 45 minutes with the patient on the day of discharge and completing necessary paperwork. [id number]/CPS #: [id number]
== END 2019-10-15 19:26 | disposition home health service (06) | DRG 603 ==
LOC: ED 22:51 → MEDTELE 10-12 00:37
PROVIDERS: ADMIT Nurse Practitioner Family; ATTEND Internal Medicine
DX: L03.115 Cellulitis of right lower limb (principal); 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 kidney disease with heart failure and stage 1 through stage 4 chronic kidney disease, or unspecified chronic kidney disease; I50.32 Chronic diastolic (congestive) heart failure; C94.6 Myelodysplastic disease, not elsewhere classified; Z68.42 Body mass index [BMI] 45.0-49.9, adult; D63.1 Anemia in chronic kidney disease; N18.3 Chronic kidney disease, stage 3 (moderate); K21.9 Gastro-esophageal reflux disease without esophagitis; M79.7 Fibromyalgia; E03.9 Hypothyroidism, unspecified; I25.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 native coronary artery without angina pectoris; K22.4 Dyskinesia of esophagus; I89.0 Lymphedema, not elsewhere classified; G25.81 Restless legs syndrome; E78.00 Pure hypercholesterolemia, unspecified; G47.33 Obstructive sleep apnea (adult) (pediatric); J44.9 Chronic obstructive pulmonary disease, unspecified; G89.29 Other chronic pain; I48.0 Paroxysmal atrial fibrillation; E78.5 Hyperlipidemia, unspecified; E66.01 Morbid (severe) obesity due to excess calories; J45.909 Unspecified asthma, uncomplicated; B95.2 Enterococcus as the cause of diseases classified elsewhere; M17.11 Unilateral primary osteoarthritis, right knee; K27.9 Peptic ulcer, site unspecified, unspecified as acute or chronic, without hemorrhage or perforation; Z87.11 Personal history of peptic ulcer disease; Z95.1 Presence of aortocoronary bypass graft; Z96.643 Presence of artificial hip joint, bilateral; Z79.02 Long term (current) use of antithrombotics/antiplatelets; Z79.899 Other long term (current) drug therapy; Z88.8 Allergy status to other drugs, medicaments and biological substances; Z91.041 Radiographic dye allergy status; Z82.49 Family history of ischemic heart disease and other diseases of the circulatory system
CPT/HCPCS: 36415; 72192; 80048; 80053; 81003; 81015; 83036; 83605; 83880; 84550; 85025; 85610; 85730; 86140; 87040; 87086; 94640; 99284; A9270-GY; J0878; J1644; J2270

== ENCOUNTER 2020-06-25 15:05 | Observation (INO) ==
[2020-06-25 16:18] LABS: ABS Eosinophils 0.3 10^3/ul (0-0.6); ABS Lymphocytes 1.6 10^3/ul (1.0-4.8); ABS Monocytes 0.4 10^3/ul (0-0.8); ABS Neutrophils 3.6 10^3/ul (1.5-7.7); Eosinophil % 5.2 %; Hematocrit 27 % (35-47); Hemoglobin 9.7 g/dL (12.0-16.0); Lymphocyte % 26.1 %; Mean Corpuscular HGB Conc 35 g/dL (31-36); Mean Corpuscular Hemoglobin 35 pg (27-31); Mean Corpuscular Volume 98 fL (80-97); Mean Platelet Volume 7.6 fL (7.4-10.4); Nucleated Red Blood Cells % 0.1; Platelet Count 225 10^3/uL (150-450); Red Cell Distribution Width 12 % (10-15)
[2020-06-25 16:22] LABS: INR 0.99 (0.82-1.09)
[2020-06-25 16:35] LABS: Albumin 3.7 g/dL (3.2-5.2); Albumin/Globulin Ratio 1.3 (1-3); BUN/Creatinine Ratio 37.8 (8-20); C Reactive Protein 6.48 mg/L (<8.01); Calcium 9.2 mg/dL (8.6-10.3); EGFR African American 38.6 (>60); EGFR Non-African American 31.9 (>60); Globulin 2.9 g/dL (2-4); Magnesium 2.1 mg/dL (1.9-2.7); Potassium 4.6 mmol/L (3.5-5.0); Total Bilirubin 0.2 mg/dL (0.2-1.0); Total Protein 6.6 g/dL (6.4-8.9)
[2020-06-25 16:36] LABS: Troponin I 0.02 ng/mL (<0.03)
[2020-06-25 17:15] LABS: TSH Ultra Thyroid Stim Horm 1.5 mcIU/mL (0.34-5.60)
[2020-06-25 17:58] LABS: Urine Appearance Cloudy; Urine Bilirubin Negative (Negative); Urine Blood Negative (Negative); Urine Color Yellow; Urine Glucose Negative (Negative); Urine Ketones Negative (Negative); Urine Nitrite Positive (Negative); Urine Protein Negative (Negative); Urine Urobilinogen Negative (Negative)
[2020-06-25 18:01] LABS: Urine Bacteria Absent (Absent); Urine Red Blood Cell Trace(0-2/hpf) (Absent); Urine Squamous Epithelial Cell Present (Absent); Urine White Blood Cell 3+(>20/hpf) (Absent)
[2020-06-25] MEDS ORDERED: Ondansetron 4 mg VIAL 2 MG/ML 2 ml VIAL IV PRN (18:11)
[2020-06-25] MEDS ORDERED: Labetalol IV 5 MG/ML 20 ml VIAL IV PUSH ONE (18:20)
[2020-06-25] MEDS ORDERED: Albuterol HFA INHALER 8 gm MDI INH PRN (18:43)
[2020-06-25] MEDS ORDERED: Senna/Docusate 8.6/50 mg (NF) TAB PO PRN (18:43)
[2020-06-25] MEDS: Fluticasone HFA 110 mcg(NF) MDI INH SCH (19:01)
[2020-06-25] MEDS: Mometasone/Formoter 100/5 MDI INH SCH (19:01)
[2020-06-25] MEDS ORDERED: Enoxaparin 40 MG/0.4 ML SYR SUBCUT SCH (19:30)
[2020-06-25] MEDS: Labetalol IV 5 MG/ML 20 ml VIAL IV PUSH PRN (21:29)
[2020-06-25] MEDS: Senna TAB 8.6 mg TAB PO PRN (21:30)
[2020-06-26 07:07] LABS: Hematocrit 27 % (35-47); Hemoglobin 9.1 g/dL (12.0-16.0); Mean Corpuscular HGB Conc 34 g/dL (31-36); Mean Corpuscular Hemoglobin 34 pg (27-31); Mean Corpuscular Volume 98 fL (80-97); Red Blood Count 2.73 10^6 /uL (3.70-4.87); Red Cell Distribution Width 12 % (10-15); White Blood Count 7.8 10^3/uL (3.5-10.8)
[2020-06-26 07:30] LABS: BUN/Creatinine Ratio 38.6 (8-20); Calcium 8.7 mg/dL (8.6-10.3); EGFR Non-African American 34.7 (>60); HDL Cholesterol 51.6 mg/dL
[2020-06-26] MEDS ORDERED: Prochlorperazine 5 mg/ml 2 ml VIAL (10 mg) IV ONE (08:01)
[2020-06-26] MEDS ORDERED: Prochlorperazine 5 mg/ml 2 ml VIAL (10 mg) ONE (08:06)
[2020-06-26] MEDS ORDERED: Isosorbide Mononit ER 30mg TAB PO SCH (09:00)
[2020-06-26 09:16] LABS: ABS Eosinophils 0.4 10^3/ul (0-0.6); ABS Lymphocytes 2.6 10^3/ul (1.0-4.8); ABS Monocytes 0.6 10^3/ul (0-0.8); ABS Neutrophils 4.2 10^3/ul (1.5-7.7); Eosinophil % 4.8 %; Lymphocyte % 33.2 %; Platelet Count Platelets clumped. 10^3/uL (150-450)
[2020-06-26] MEDS: Mometasone/Formoter 100/5 MDI INH SCH (09:17)
[2020-06-26] MEDS: Fluticasone HFA 110 mcg(NF) MDI INH SCH (10:12)
[2020-06-26] MEDS ORDERED: Fluticasone NASAL SPRAY 50MCG 16 gm SPRAY BTL BOTH NARES SCH (10:30)
[2020-06-26] MEDS: Senna TAB 8.6 mg TAB PO PRN (10:48)
[2020-06-26] MEDS ORDERED: Regadenoson 0.4 MG/5 ML SYRINGE ONE (12:55)
[2020-06-26] MEDS: Labetalol IV 5 MG/ML 20 ml VIAL IV PUSH PRN (14:13)
[2020-06-26 19:51] VITALS: BP 134/48
== END 2020-06-26 18:20 | disposition home or self-care (01) ==
LOC: MEDTELE 15:05 → ED 15:05
PROVIDERS: ADMIT Internal Medicine; ATTEND Pediatrics

== ENCOUNTER 2022-05-10 13:31 | Inpatient (IN) ==
[~2022-05-10 13:31] MED LIST changes: -Acetaminophen TAB* 325 MG PO PRN; -Buffered Lidocaine 0.9% SYRIN* 5 ML/SYR SYRINGE INTRADERM ONE; +Buffered Lidocaine 1% SYRIN 1 ml INTRADERM ONE; +Lactated Ringers 1000 ml BAG 1,000 ML IV SCH; +Naloxone 0.4 mg VIAL 0.4 mg/ml 1 ml VIAL IV PRN; +Prochlorperazine 5 mg/ml 2 ml VIAL (10 mg) IV PRN
[2022-05-10] MEDS ORDERED: ceFAZolin 2 GM in NS PREMIX 2 GM/100 ML BAG IVPB ONE (13:45)
[2022-05-10 14:27] LABS: INR 1.08 (0.89-1.11)
[2022-05-10] MEDS ORDERED: ROPIVACAINE 5 MG/ML 30 ML BTL (0.5%) ONE (14:30)
[2022-05-10] MEDS ORDERED: fentaNYL 250 mcg/5 ml 50 MCG/ML 5 ml VIAL (250 MCG) ONE (14:32)
[2022-05-10] MEDS ORDERED: Metoprolol Tartrate 5 mg VIAL 5 ml VIAL (1 mg/ml) ONE ×3 (14:41→15:13)
[2022-05-10] MEDS: Metoprolol Tartrate 5 mg VIAL 5 ml VIAL (1 mg/ml) IV SCH ×2 (14:46→14:55)
[2022-05-10] MEDS ORDERED: Cisatracurium 2 MG/ML MDV 5 ML ONE (15:16)
[2022-05-10] MEDS ORDERED: Lidocaine 2% PF 5 ML VIAL ONE (15:17)
[2022-05-10] MEDS ORDERED: Dexamethasone IV 4 MG/ML VIAL 1 ml VIAL ONE ×2 (15:24→17:42)
[2022-05-10] MEDS ORDERED: Ondansetron 4 mg VIAL 2 MG/ML 2 ml VIAL ONE ×2 (15:24→17:42)
[2022-05-10] MEDS ORDERED: Ropivacaine 5 MG/ML 20 ML VIAL 0.5% (100 MG) ONE (16:42)
[2022-05-10] MEDS ORDERED: Albumin Human 5% 12.5 GM/250 ML BTL IV ONE (17:00)
[2022-05-10] MEDS ORDERED: Dexmedetomidine 200 mcg/2 ml 2 ml VIAL (200 mcg) ONE (17:03)
[2022-05-10] MEDS ORDERED: Phenylephrine IV 10 MG/ML 1 ml VIAL ONE (17:17)
[2022-05-10] MEDS ORDERED: Ondansetron ODT 4 mg TAB 4 MG TAB PO PRN (18:30)
[2022-05-10] MEDS ORDERED: Lactulose 30 ml UDC PO PRN (18:30)
[2022-05-10] MEDS ORDERED: Magnesium Hydroxide LIQ 30 ML UDC PO PRN (18:30)
[2022-05-10] MEDS ORDERED: Ondansetron 4 mg VIAL 2 MG/ML 2 ml VIAL IV PRN (18:30)
[2022-05-10] MEDS ORDERED: Lactated Ringers 1000 ml BAG 1,000 ML IV SCH (19:00)
[2022-05-10] MEDS ORDERED: fentaNYL 100 mcg/2 ml 50 MCG/ML VIAL ONE (19:00)
[2022-05-10] MEDS: fentaNYL 100 mcg/2 ml 50 MCG/ML VIAL IV PRN ×5 (19:01→21:38)
[2022-05-10 21:14] LABS: ABS Lymphocytes 0.6 10^3/ul (1.0-4.8); ABS Monocytes 0.1 10^3/ul (0-0.8); ABS Neutrophils 8.9 10^3/ul (1.5-7.7); Eosinophil % 0.1 %; Hematocrit 28 % (35-47); Lymphocyte % 6.6 %; Mean Corpuscular HGB Conc 32 g/dL (31-36); Mean Corpuscular Hemoglobin 31 pg (27-31); Mean Corpuscular Volume 96 fL (80-97); Mean Platelet Volume 7.4 fL (7.4-10.4); Platelet Count 169 10^3/uL (150-450); Red Blood Count 2.92 10^6 /uL (3.70-4.87); Red Cell Distribution Width 16 % (10-15); White Blood Count 9.7 10^3/uL (3.5-10.8)
[2022-05-10 21:48] LABS: Albumin 3.2 g/dL (3.2-5.2); Albumin/Globulin Ratio 1.5 (1-3); Calcium 7.9 mg/dL (8.6-10.3); Globulin 2.1 g/dL (2-4); Potassium 4.5 mmol/L (3.5-5.0); Total Protein 5.3 g/dL (6.4-8.9); eGFR CKD-EPI 37.6 (>60)
[2022-05-10] MEDS: Clindamycin 600 MG/D5W BAG 600 MG/50 ML BAG IV SCH (23:39)
[2022-05-10] MEDS: Magnesium Hydroxide LIQ 30 ML UDC PO SCH (23:47)
[2022-05-11] MEDS ORDERED: Albuterol HFA INHALER 8 gm MDI INH PRN (00:04)
[2022-05-11 03:14] LABS: Hematocrit 26 % (35-47); Hemoglobin 8.5 g/dL (12.0-16.0)
[2022-05-11] MEDS: Morphine 2 MG/ML SYRINGE IV PRN ×2 (03:14→20:53)
[2022-05-11 04:41] LABS: Mean Platelet Volume 7.6 fL (7.4-10.4); Platelet Count 151 10^3/uL (150-450)
[2022-05-11 04:53] LABS: Potassium 4.7 mmol/L (3.5-5.0); eGFR CKD-EPI 30.2 (>60)
[2022-05-11] MEDS: Clindamycin 600 MG/D5W BAG 600 MG/50 ML BAG IV SCH ×2 (08:02→15:55)
[2022-05-11] MEDS: Vitamin THERAPEUTIC TAB PO SCH (09:07)
[2022-05-11] MEDS: Fluticasone NASAL SPRAY 50MCG 16 gm SPRAY BTL INTRANASAL SCH ×2 (09:07→19:52)
[2022-05-11] MEDS: Magnesium Hydroxide LIQ 30 ML UDC PO SCH ×2 (09:08→20:52)
[2022-05-11] MEDS: Mometasone/Formoter 200/5 MDI INH SCH ×2 (09:10→20:28)
[2022-05-11 09:21] LABS: Hematocrit 24 % (35-47); Hemoglobin 7.8 g/dL (12.0-16.0)
[2022-05-11 15:26] LABS: Hematocrit 23 % (35-47); Hemoglobin 7.5 g/dL (12.0-16.0)
[2022-05-11] MEDS ORDERED: Morphine 2 MG/ML SYRINGE IV ONE (22:18)
[2022-05-12] MEDS: Morphine 2 MG/ML SYRINGE IV PRN (03:09)
[2022-05-12 06:49] LABS: Mean Platelet Volume 7.9 fL (7.4-10.4); Platelet Count 135 10^3/uL (150-450)
[2022-05-12 07:10] LABS: Hematocrit 24 % (35-47)
[2022-05-12] MEDS ORDERED: Metoprolol Tartrate 5 mg VIAL 5 ml VIAL (1 mg/ml) IV ONE (07:28)
[2022-05-12] MEDS: Mometasone/Formoter 200/5 MDI INH SCH ×2 (09:40→19:06)
[2022-05-12] MEDS: Fluticasone NASAL SPRAY 50MCG 16 gm SPRAY BTL INTRANASAL SCH ×2 (09:59→20:37)
[2022-05-12] MEDS: Vitamin THERAPEUTIC TAB PO SCH (10:00)
[2022-05-12] MEDS: Magnesium Hydroxide LIQ 30 ML UDC PO SCH ×2 (10:00→20:40)
[2022-05-12] MEDS ORDERED: Warfarin DAILY REMINDER **NOTE FOLLOW UP SCH (17:00)
[2022-05-13 06:45] LABS: Hematocrit 20 % (35-47); Hemoglobin 6.6 g/dL (12.0-16.0); Platelet Count 125 10^3/uL (150-450)
[2022-05-13] MEDS: Mometasone/Formoter 200/5 MDI INH SCH ×2 (08:39→20:31)
[2022-05-13] MEDS: Morphine 2 MG/ML SYRINGE IV PRN (08:42)
[2022-05-13] MEDS: Vitamin THERAPEUTIC TAB PO SCH (08:43)
[2022-05-13] MEDS: Magnesium Hydroxide LIQ 30 ML UDC PO SCH (08:44)
[2022-05-13] MEDS: Fluticasone NASAL SPRAY 50MCG 16 gm SPRAY BTL INTRANASAL SCH (08:51)
[2022-05-13 11:27] LABS: INR 1.69 (0.89-1.11)
[2022-05-13] MEDS: HYDROcodone/Acetamin 10/325 TAB (NF) PO PRN ×2 (12:56→18:59)
[2022-05-13] MEDS ORDERED: Furosemide 20 mg/2 ml IV VIAL IV ONE (12:59)
[2022-05-13 22:25] VITALS: BP 132/67
== END 2022-05-13 20:47 | DRG 470 ==
LOC: INTOOBSV 13:31 → AA 13:31 → SSU 22:24 → PMRU 05-13 20:47
PROVIDERS: ADMIT Orthopaedic Surgery Adult Reconstructive Orthopaedic Surgery; ATTEND Orthopaedic Surgery Adult Reconstructive Orthopaedic Surgery

== ENCOUNTER 2022-05-13 15:12 | Inpatient (IN) ==
[2022-05-13] MEDS ORDERED: Senna TAB 8.6 mg TAB PO PRN (21:18)
[2022-05-13] MEDS ORDERED: Magnesium Hydroxide LIQ 30 ML UDC PO PRN (21:18)
[2022-05-13] MEDS: Fluticasone NASAL SPRAY 50MCG 16 gm SPRAY BTL INTRANASAL SCH (23:41)
[2022-05-14] MEDS: HYDROCODONE PO PRN ×3 (05:35→19:46)
[2022-05-14] MEDS: ACETAMIN PO PRN ×3 (05:35→19:46)
[2022-05-14 06:51] LABS: INR 2.26 (0.89-1.11)
[2022-05-14 08:26] LABS: ABS Eosinophils 0.2 10^3/ul (0-0.6); ABS Monocytes 0.7 10^3/ul (0-0.8); ABS Neutrophils 5.9 10^3/ul (1.5-7.7); Eosinophil % 2.7 %; Hematocrit 25 % (35-47); Hemoglobin 8.6 g/dL (12.0-16.0); Lymphocyte % 13.3 %; Mean Corpuscular HGB Conc 34 g/dL (31-36); Mean Corpuscular Hemoglobin 31 pg (27-31); Mean Corpuscular Volume 92 fL (80-97); Mean Platelet Volume 7.9 fL (7.4-10.4); Nucleated Red Blood Cells % 0.1; Platelet Count 129 10^3/uL (150-450); Red Blood Count 2.73 10^6 /uL (3.70-4.87); Red Cell Distribution Width 17 % (10-15); White Blood Count 7.9 10^3/uL (3.5-10.8)
[2022-05-14] MEDS: Mometasone/Formoter 200/5 MDI INH SCH ×2 (09:54→17:27)
[2022-05-14] MEDS: Fluticasone NASAL SPRAY 50MCG 16 gm SPRAY BTL INTRANASAL SCH ×2 (13:01→23:18)
[2022-05-14] MEDS: Senna TAB 8.6 mg TAB PO SCH (20:38)
[2022-05-15] MEDS: Mometasone/Formoter 200/5 MDI INH SCH ×2 (05:38→20:03)
[2022-05-15 07:12] LABS: ABS Eosinophils 0.2 10^3/ul (0-0.6); ABS Lymphocytes 1.3 10^3/ul (1.0-4.8); ABS Monocytes 0.6 10^3/ul (0-0.8); ABS Neutrophils 4.9 10^3/ul (1.5-7.7); Eosinophil % 2.3 %; Hematocrit 30 % (35-47); Hemoglobin 9.4 g/dL (12.0-16.0); Lymphocyte % 18.5 %; Mean Corpuscular HGB Conc 31 g/dL (31-36); Mean Corpuscular Hemoglobin 32 pg (27-31); Mean Corpuscular Volume 103 fL (80-97); Mean Platelet Volume 8.1 fL (7.4-10.4); Nucleated Red Blood Cells % 0.1; Platelet Count 151 10^3/uL (150-450); Red Blood Count 2.92 10^6 /uL (3.70-4.87); Red Cell Distribution Width 19 % (10-15)
[2022-05-15 07:14] LABS: INR 1.72 (0.89-1.11)
[2022-05-15 08:13] LABS: Albumin 3.3 g/dL (3.2-5.2); Albumin/Globulin Ratio 1.2 (1-3); Calcium 8.4 mg/dL (8.6-10.3); Globulin 2.8 g/dL (2-4); Potassium 5.2 mmol/L (3.5-5.0); Total Bilirubin 0.6 mg/dL (0.2-1.0); Total Protein 6.1 g/dL (6.4-8.9); eGFR CKD-EPI 38.9 (>60)
[2022-05-15] MEDS: Fluticasone NASAL SPRAY 50MCG 16 gm SPRAY BTL INTRANASAL SCH ×2 (09:30→23:00)
[2022-05-15] MEDS: ACETAMIN PO PRN ×2 (09:31→18:08)
[2022-05-15] MEDS: HYDROCODONE PO PRN ×2 (09:31→18:08)
[2022-05-15] MEDS: Senna TAB 8.6 mg TAB PO SCH (21:16)
[2022-05-16] MEDS: ACETAMIN PO PRN ×2 (05:00→10:51)
[2022-05-16] MEDS: HYDROCODONE PO PRN ×2 (05:00→10:51)
[2022-05-16] MEDS: Mometasone/Formoter 200/5 MDI INH SCH (05:06)
[2022-05-16 05:50] VITALS: BP 128/69
[2022-05-16 08:35] LABS: INR 1.95 (0.89-1.11)
[2022-05-16] MEDS: Fluticasone NASAL SPRAY 50MCG 16 gm SPRAY BTL INTRANASAL SCH (10:52)
[2022-05-16] MEDS ORDERED: Warfarin DAILY REMINDER **NOTE FOLLOW UP SCH (17:00)
== END 2022-05-16 14:40 | disposition home health service (06) | DRG 560 ==
LOC: PMRU 22:52
PROVIDERS: ADMIT Physical Medicine & Rehabilitation; ATTEND Physical Medicine & Rehabilitation

== ENCOUNTER 2022-08-23 04:33 | Observation (INO) ==
[2022-08-23 06:15] LABS: ABS Lymphocytes 0.7 10^3/ul (1.0-4.8); ABS Monocytes 0.4 10^3/ul (0-0.8); ABS Neutrophils 3.9 10^3/ul (1.5-7.7); Eosinophil % 0.5 %; Hematocrit 29 % (35-47); Hemoglobin 9.6 g/dL (12.0-16.0); Lymphocyte % 14.1 %; Mean Corpuscular HGB Conc 33 g/dL (31-36); Mean Corpuscular Hemoglobin 31 pg (27-31); Mean Corpuscular Volume 94 fL (80-97); Mean Platelet Volume 7.9 fL (7.4-10.4); Nucleated Red Blood Cells % 0.1; Platelet Count 157 10^3/uL (150-450); Red Blood Count 3.08 10^6 /uL (3.70-4.87); Red Cell Distribution Width 15 % (10-15)
[2022-08-23 07:15] LABS: Albumin 4.3 g/dL (3.2-5.2); Albumin/Globulin Ratio 1.4 (1-3); Calcium 9.4 mg/dL (8.6-10.3); Creatinine, Serum 1.77 mg/dL (0.51-0.95); Globulin 3.1 g/dL (2-4); Potassium 4.6 mmol/L (3.5-5.0); Total Bilirubin 0.4 mg/dL (0.2-1.0); Total Protein 7.4 g/dL (6.4-8.9); eGFR CKD-EPI 28.3 (>60)
[2022-08-23 07:22] LABS: Urine Appearance Cloudy; Urine Bilirubin Negative (Negative); Urine Blood Negative (Negative); Urine Color Yellow; Urine Glucose Negative (Negative); Urine Ketones Trace (Negative); Urine Nitrite Negative (Negative); Urine Protein 2+(100 mg/dL) (Negative); Urine Specific Gravity 1.012 (1.002-1.030); Urine Urobilinogen Negative (Negative)
[2022-08-23 07:40] LABS: Urine Bacteria 1+ (Absent); Urine Red Blood Cell Trace(0-2/hpf) (Absent); Urine Squamous Epithelial Cell Present (Absent); Urine White Blood Cell 2+(11-20/hpf) (Absent)
[2022-08-23 08:09] LABS: INR 1.24 (0.88-1.18)
[2022-08-23] MEDS ORDERED: Furosemide 40 mg/4 ml IV VIAL IV SLOW PU ONE (08:32)
[2022-08-23 08:38] LABS: High Sensitivity Troponin 1 Hr 22 pg/mL (<15)
[2022-08-23] MEDS ORDERED: Dexamethasone IV 4 MG/ML VIAL 1 ml VIAL IV SLOW PU ONE (09:11)
[2022-08-23] MEDS ORDERED: Remdesivir 100 mg Vial 200 MG in NS 0.9% 250 ml 210 ML IV ONE (09:13)
[2022-08-23 11:17] LABS: INR 1.19 (0.88-1.18)
[2022-08-23] MEDS ORDERED: Albuterol 2.5mg/3 ml (0.083%) NEB.SOLN INH PRN (11:39)
[2022-08-23 12:13] LABS: Albumin 4.3 g/dL (3.2-5.2); Albumin/Globulin Ratio 1.3 (1-3); Calcium 9.4 mg/dL (8.6-10.3); Creatinine, Serum 1.7 mg/dL (0.51-0.95); Globulin 3.3 g/dL (2-4); Potassium 4.6 mmol/L (3.5-5.0); Total Bilirubin 0.4 mg/dL (0.2-1.0); Total Protein 7.6 g/dL (6.4-8.9); eGFR CKD-EPI 29.8 (>60)
[2022-08-23] MEDS ORDERED: Acetaminophen IV 1 GM/100ML 1,000 MG/100 ML BAG IV PRN (14:19)
[2022-08-23] MEDS: HYDROcodone/Acetamin 10/325 TAB (NF) PO PRN ×2 (15:54→22:23)
[2022-08-23] MEDS: Mometasone/Formoter 200/5 MDI INH SCH (19:17)
[2022-08-23] MEDS: Senna TAB 8.6 mg TAB PO SCH (20:51)
[2022-08-24] MEDS: HYDROcodone/Acetamin 10/325 TAB (NF) PO PRN (04:56)
[2022-08-24 07:04] LABS: ABS Lymphocytes 1.2 10^3/ul (1.0-4.8); ABS Monocytes 0.6 10^3/ul (0-0.8); ABS Neutrophils 1.7 10^3/ul (1.5-7.7); Eosinophil % 0.8 %; Hematocrit 28 % (35-47); Hemoglobin 9.4 g/dL (12.0-16.0); Lymphocyte % 34.4 %; Mean Corpuscular HGB Conc 33 g/dL (31-36); Mean Corpuscular Hemoglobin 31 pg (27-31); Mean Corpuscular Volume 95 fL (80-97); Nucleated Red Blood Cells % 0.2; Platelet Count 142 10^3/uL (150-450); Red Blood Count 2.98 10^6 /uL (3.70-4.87); Red Cell Distribution Width 15 % (10-15); White Blood Count 3.5 10^3/uL (3.5-10.8)
[2022-08-24 07:12] LABS: INR 1.31 (0.88-1.18)
[2022-08-24 07:21] LABS: Albumin 3.8 g/dL (3.2-5.2); Albumin/Globulin Ratio 1.4 (1-3); Creatinine, Serum 1.56 mg/dL (0.51-0.95); Globulin 2.7 g/dL (2-4); Potassium 4.3 mmol/L (3.5-5.0); Total Bilirubin 0.3 mg/dL (0.2-1.0); Total Protein 6.5 g/dL (6.4-8.9)
[2022-08-24] MEDS: Mometasone/Formoter 200/5 MDI INH SCH ×2 (07:48→20:12)
[2022-08-24] MEDS ORDERED: Remdesivir 100 mg Vial 100 MG in NS 0.9% 250 ml 230 ML IV SCH (09:00)
[2022-08-24] MEDS: Senna TAB 8.6 mg TAB PO SCH (09:37)
[2022-08-24 11:10] VITALS: BP 140/70
== END 2022-08-24 14:55 | disposition home or self-care (01) ==
LOC: ED 04:33 → MED 06:09 → EDHOLD 11:37 → SUATTDRO 11:37 → INTOOBSV 11:37 → EDHOLD 15:00 → MED 15:40
PROVIDERS: ADMIT Internal Medicine; ATTEND Internal Medicine

== ENCOUNTER 2024-04-04 20:20 | Observation (INO) ==
[2024-04-04] MEDS: Furosemide 40 mg/4 ml IV VIAL IV SLOW PU ONE (20:49)
[2024-04-04 20:50] LABS: ABS Lymphocytes 1.1 10^3/uL (1.0-4.8); ABS Monocytes 0.3 10^3/uL (0.0-0.9); ABS Neutrophils 2.2 10^3/uL (1.5-7.6); ABS Nucleated RBC 0.01 10^3/ul; Hematocrit 32.2 % (35-45); Lymphocyte % 30.3 %; Mean Corpuscular Hemoglobin 35.4 pg (27-33); Mean Corpuscular Hgb Conc 34.1 g/dL (31-36); Mean Corpuscular Volume 103.9 fL (80-97); Mean Platelet Volume 8.4 fL (7.5-11.2); Nucleated Red Blood Cells % 0.3 %/100WBC (0.0-0.8); Platelet Count 160 10^3/uL (150-450); Red Cell Distribution Width 15.5 % (12-17); White Blood Count 3.6 10^3/uL (3.8-11.8)
[2024-04-04 20:57] LABS: Activated Partial Thrombo Time 22.8 seconds (26.0-38.0); INR 1.23 (0.85-1.14)
[2024-04-04 21:13] LABS: High Sens Troponin Baseline 15 pg/mL (<15)
[2024-04-04 21:54] LABS: ALT 12 U/L (7-52); Albumin 4.1 g/dL (3.2-5.2); Albumin/Globulin Ratio 1.1 (1-3); Alkaline Phosphatase 205 U/L (35-149); Blood Urea Nitrogen 33 mg/dL (6-24); CO2 Carbon Dioxide 24 mmol/L (22-32); Calcium 9.6 mg/dL (8.6-10.3); Chloride 102 mmol/L (101-111); Creatinine, Serum 1.36 mg/dL (0.51-0.95); Globulin 3.9 g/dL (2-4); Glucose 109 mg/dL (70-100); Sodium 135 mmol/L (135-145); Total Bilirubin 0.4 mg/dL (0.2-1.0); eGFR CKD-EPI 38.4 (>60)
[2024-04-04 21:59] LABS: Anion Gap 9 mmol/L (2-16)
[2024-04-04 22:18] LABS: Magnesium 1.7 mg/dL (1.9-2.7); Potassium Redraw 4.4 mmol/L (3.5-5.0)
[2024-04-04 22:37] LABS: TSH Ultra Thyroid Stim Horm 25.28 mcIU/mL (0.34-5.60)
[2024-04-05] MEDS: Magnesium Sulf 4 GM/100 ML IV 4,000 MG/100 ML BAG IVPB ONE (00:27)
[2024-04-05] MEDS ORDERED: Metoprolol Tartrate 5 mg VIAL 5 ml VIAL (1 mg/ml) IV PRN (01:57)
[2024-04-05] MEDS ORDERED: Albuterol 2.5mg/3 ml (0.083%) NEB.SOLN INH PRN (02:00)
[2024-04-05] MEDS: Furosemide 40 mg/4 ml IV VIAL IV ONE ×2 (02:47→11:49)
[2024-04-05 03:05] LABS: C Reactive Protein 16.29 mg/L (<8.01)
[2024-04-05] MEDS: Labetalol IV 5 MG/ML 20 ml VIAL IV PUSH ONE (04:21)
[2024-04-05 06:42] LABS: Hematocrit 25.6 % (35-45); Hemoglobin 8.7 g/dL (11.5-14.3); Mean Corpuscular Hemoglobin 35.3 pg (27-33); Mean Corpuscular Hgb Conc 34.1 g/dL (31-36); Mean Corpuscular Volume 103.6 fL (80-97); Mean Platelet Volume 7.8 fL (7.5-11.2); Platelet Count 128 10^3/uL (150-450); Red Blood Count 2.47 10^6/uL (3.63-4.92); Red Cell Distribution Width 15.2 % (12-17)
[2024-04-05 07:33] LABS: Calcium 8.5 mg/dL (8.6-10.3); Creatinine, Serum 1.23 mg/dL (0.51-0.95); Magnesium 2.4 mg/dL (1.9-2.7); Potassium 4.2 mmol/L (3.5-5.0); eGFR CKD-EPI 43.3 (>60)
[2024-04-05] MEDS: Fluticasone NASAL SPRAY 50MCG 16 gm SPRAY BTL INTRANASAL SCH (08:10)
[2024-04-05] MEDS: CMCS: Venlafaxine 25 mg TAB (NF) PO SCH (08:14)
[2024-04-05] MEDS: Senna TAB 8.6 mg TAB PO SCH (08:17)
[2024-04-05] MEDS: Cholecalciferol (VIT D3) 1,000 unit TAB PO SCH (08:17)
[2024-04-05] MEDS ORDERED: Sulfur Hexaflouride MICROSPHR 25 MG VIAL IV PRN (09:54)
[2024-04-05] MEDS: Albuterol/Ipratropium NEB.SOL (2.5/0.5 MG) 3 ML NEB.SOLN INH SCH ×2 (13:16→18:32)
[2024-04-05 21:08] LABS: Albumin 3.5 g/dL (3.2-5.2); Albumin/Globulin Ratio 1.2 (1-3); Calcium 8.8 mg/dL (8.6-10.3); Creatinine, Serum 1.27 mg/dL (0.51-0.95); Globulin 2.9 g/dL (2-4); Potassium 4.4 mmol/L (3.5-5.0); Total Bilirubin 0.4 mg/dL (0.2-1.0); Total Protein 6.4 g/dL (6.4-8.9); eGFR CKD-EPI 41.7 (>60)
[2024-04-05] MEDS: HYDROcodone/Acetamin 10/325 TAB (NF) PO PRN (21:53)
[2024-04-06 06:17] LABS: ABS Lymphocytes 1.2 10^3/uL (1.0-4.8); ABS Monocytes 0.3 10^3/uL (0.0-0.9); ABS Neutrophils 2.6 10^3/uL (1.5-7.6); Hematocrit 27.1 % (35-45); Hemoglobin 8.8 g/dL (11.5-14.3); Lymphocyte % 28.2 %; Mean Corpuscular Hemoglobin 33.7 pg (27-33); Mean Corpuscular Hgb Conc 32.7 g/dL (31-36); Mean Corpuscular Volume 103.3 fL (80-97); Mean Platelet Volume 8.2 fL (7.5-11.2); Platelet Count 139 10^3/uL (150-450); Red Blood Count 2.62 10^6/uL (3.63-4.92); Red Cell Distribution Width 15.3 % (12-17); White Blood Count 4.1 10^3/uL (3.8-11.8)
[2024-04-06 06:59] LABS: Anion Gap 9 mmol/L (2-16); Blood Urea Nitrogen 33 mg/dL (6-24); CO2 Carbon Dioxide 29 mmol/L (22-32); Calcium 8.2 mg/dL (8.6-10.3); Chloride 101 mmol/L (101-111); Creatinine, Serum 1.28 mg/dL (0.51-0.95); Glucose 77 mg/dL (70-100); Magnesium 1.9 mg/dL (1.9-2.7); Potassium 4.1 mmol/L (3.5-5.0); Sodium 139 mmol/L (135-145); eGFR CKD-EPI 41.3 (>60)
[2024-04-06 08:00] LABS: % Iron Saturation 18 % (15-55); .Transferrin 165 mg/dL (203-362); Iron 41 ug/dL (50-212); Total Iron Binding Capacity 231 mcg/dL (250-450); Unsaturated Iron Binding 190 ug/dL
[2024-04-06 08:25] LABS: Folate > 20.00 ng/mL (5.90-24.80)
[2024-04-06 08:26] LABS: Vitamin B12 999 pg/mL (180-914)
[2024-04-06] MEDS: Magnesium Sulfate IV 1GM/100ML 1 GM/100 ML BAG IV ONE (08:56)
[2024-04-06] MEDS: Furosemide 40 mg/4 ml IV VIAL IV ONE (15:16)
[2024-04-07 06:18] LABS: ABS Lymphocytes 1.3 10^3/uL (1.0-4.8); ABS Monocytes 0.4 10^3/uL (0.0-0.9); Hematocrit 27.4 % (35-45); Hemoglobin 9.1 g/dL (11.5-14.3); Lymphocyte % 26.6 %; Mean Corpuscular Hemoglobin 34.1 pg (27-33); Mean Corpuscular Hgb Conc 33.1 g/dL (31-36); Mean Corpuscular Volume 103.1 fL (80-97); Mean Platelet Volume 8.1 fL (7.5-11.2); Nucleated Red Blood Cells % 0.1 %/100WBC (0.0-0.8); Platelet Count 137 10^3/uL (150-450); Red Blood Count 2.66 10^6/uL (3.63-4.92); Red Cell Distribution Width 15.1 % (12-17); White Blood Count 4.8 10^3/uL (3.8-11.8)
[2024-04-07 06:35] LABS: Calcium 8.1 mg/dL (8.6-10.3); Creatinine, Serum 1.31 mg/dL (0.51-0.95); Magnesium 1.8 mg/dL (1.9-2.7); Potassium 3.6 mmol/L (3.5-5.0); eGFR CKD-EPI 40.2 (>60)
[2024-04-07] MEDS: Albuterol HFA INHALER 8 gm MDI INH PRN (07:46)
[2024-04-07] MEDS: Magnesium Sulfate IV 1GM/100ML 1 GM/100 ML BAG IV ONE (08:57)
[2024-04-07] MEDS: Potassium Chlor 20 meq TAB.ER PO ONE (09:01)
[2024-04-07] MEDS: Furosemide 20 mg/2 ml IV VIAL IV ONE (14:11)
[2024-04-07 17:38] VITALS: BP 140/78
== END 2024-04-07 18:00 | disposition home or self-care (01) ==
LOC: EDHOLD 20:20 → ED 20:20 → SUATTDRO 04-05 00:02 → MEDTELE 04-05 17:23
PROVIDERS: ADMIT Internal Medicine; ATTEND Student in an Organized Health Care Education/Training Program